=== PATIENT | female | born 1960 | race Caucasian/White ===

== ENCOUNTER → 2017-02-15 | Outpatient (CLI) | payer OTHER ==
[~2017-02-15] MED LIST: AMR2 PO; B-CO-25 PO; CLX20 PO; CLZ100 PO; DLN100 PO; DTRSR10 PO; LEVE250T PO; LSN25 PO; MULT-506 PO; POLY335025 PO
== END | disposition home or self-care (01) ==
LOC: C.LAB1850 16:00
PROVIDERS: ATTEND Physician Assistant
DX: G40.209 Localization-related (focal) (partial) symptomatic epilepsy and epileptic syndromes with complex partial seizures, not intractable, without status epilepticus (principal)

== ENCOUNTER → 2017-04-12 | Outpatient (CLI) | payer OTHER ==
[2017-04-12 17:26] LABS: BASO % 0.1 %; BASO ABS # 0.01 K/uL (0-0.2); COMPLETE YES; HEMATOCRIT 39.4 % (37-47); IG% 0.4 %; LYMPH % 31.2 %; LYMPH ABS # 2.44 K/uL (1.2-3.4); MEAN CELL VOLUME 88.1 fL (80-100); MEAN CORPUSCULAR HEMOGLOBIN 30.6 pg (25-34); MEAN CORPUSCULAR HGB CONC 34.8 g/dl (32-36); MEAN PLATELET VOLUME 11.8 fL (7.4-10.4); MONO % 9.7 %; NEUT % 58.6 %; PLATELET COUNT 159 K/uL (130-400); RED BLOOD COUNT 4.47 M/uL (4.2-5.4); WHITE BLOOD COUNT 7.81 K/uL (4.8-10.8)
== END | disposition home or self-care (01) ==
LOC: C.LAB 16:24
PROVIDERS: ATTEND Psychiatry & Neurology Psychiatry
DX: Z79.899 Other long term (current) drug therapy (principal)

== ENCOUNTER → 2017-07-05 | Outpatient (CLI) | payer OTHER | END | disposition home or self-care (01) | LOC: C.LAB 15:26 | PROVIDERS: ATTEND Family Medicine | DX: E11.9 Type 2 diabetes mellitus without complications (principal); Z79.899 Other long term (current) drug therapy ==

== ENCOUNTER → 2017-07-14 | Outpatient (CLI) | payer OTHER | END | disposition home or self-care (01) | LOC: C.LAB 07:28 | PROVIDERS: ATTEND Psychiatry & Neurology Psychiatry | DX: Z79.899 Other long term (current) drug therapy (principal) ==

== ENCOUNTER 2021-07-05 14:02 | Inpatient (IN) ==
[2021-07-05] MEDS ORDERED: ACETAMINOPHEN 500 MG TAB PO STA (14:34)
[2021-07-05] MEDS ORDERED: SODIUM CHLORIDE 0.9% 1000ML 1,000 ML IV ONE (14:34)
--- NOTE | 2021-07-05 14:42 | Emergency Department Note ---
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 She started having chills yesterday and this morning she was noted to have very decreased activity. She was not eating as much as normal. She did have a temperature of 101 initially. She was given Tylenol at 10 AM but then her fever bumped up to 102.5. She has had a nonproductive cough. She has had no difficulty breathing. She denies any headache, chest pain or abdominal pain. She has had no vomiting or diarrhea. She has been less active throughout the day and somewhat unbalanced when she walks. She has not fallen. She had a rapid Covid test at [facility] which was negative. She has been vaccinated and received a booster as well. She is also vaccinated for influenza. Home Medications Medication Instructions Recorded Confirmed Type atorvastatin 40 mg tablet 40 mg PO HS 07/17/18 07/05/21 History glimepiride 2 mg tablet 2 mg PO [facility] 07/17/18 07/05/21 History lisinopril 2.5 mg tablet 2.5 mg PO HS 07/17/18 07/05/21 History metformin 500 mg tablet,extended 500 mg PO BID 07/17/18 07/05/21 History release 24 hr multivit-iron 18 mg-folic acid 400 1 tab PO QAM 07/17/18 07/05/21 History mcg-calcium 500 mg-minerals tablet (Women's One Daily) oxybutynin chloride 10 mg 10 mg PO QAM 07/17/18 07/05/21 History tablet,extended release 24 hr polyethylene glycol 3350 17 gram 17 gm PO HS 08/25/18 07/05/21 History oral powder packet (Miralax) vitamin B complex 1 tab PO QAM 08/25/18 07/05/21 History levetiracetam 250 mg tablet 250 mg PO BID #62 tab 01/26/19 07/05/21 Rx clozapine 100 mg tablet 100 mg PO .COMPLEX tab 02/15/19 07/05/21 History fluticasone propionate 50 2 sprays INTNAS QAM 02/15/19 07/05/21 History mcg/actuation nasal spray,suspension loratadine 10 mg tablet (Allergy 10 mg PO QAM 02/15/19 07/05/21 History Relief (loratadine)) ammonium lactate 12 % topical cream 1 applic TOPICAL QAM 05/21/19 07/05/21 History docusate sodium 100 mg capsule 100 mg PO BID 05/21/19 07/05/21 History (Colace) phenytoin sodium extended 100 mg 200 mg PO BID #120 cap 04/14/21 07/05/21 Rx capsule Allergies Allergy/AdvReac Type Severity Reaction Status Date / Time aspirin Allergy Mild STOMACH Verified 07/05/21 14:54 ULCER BLEEDING salicylates Allergy Unknown Verified 07/05/21 14:54 valproic acid Allergy Unknown Verified 07/05/21 14:54 Past Med/Surg History Medical History (Updated 07/05/21 @ 19:17 by Georgi Barkley MD) Complex partial seizure Depression Depression with anxiety Diabetes Heart murmur Hypertension Onychomycosis Schizophrenia Family History Mother Diabetes Other Seizures Social History Smoking Status: Never smoker Preferred Language: Wolof Visual Impairment: No Limitations Hearing Ability: Normal marital status: Single Current Living Situation: Personal Care Facility current occupational status: disabled Feels Safe at Home: Yes Review of Systems See HPI for pertinent positives & negatives. and A total of 10 systems reviewed and were otherwise negative Physical Exam Vital Signs Vital Signs - 24 hr 07/05/21 14:04 07/05/21 15:24 07/05/21 15:45 Temperature 38.0 C H Temperature Source Oral Pulse Rate 121 H Pulse Rate [Apical] 109 H 110 H Pulse Rhythm Regular Pulse Rhythm [Apical] Regular Pulse Strength Normal Respiratory Rate 18 19 16 Respiratory Effort / Characteristics Non-Labored Spontaneous Respiratory Depth Normal Blood Pressure 119/60 Blood Pressure [Left Arm] 139/78 139/78 Blood Pressure Mean 79 Blood Pressure Mean [Left Arm] 98 98 Pulse Oximetry 98 100 100 Oxygen Delivery Method Room Air Room Air Sepsis Recent Fever Within 48 Hours Yes Sepsis New/Unexplained Change in Mental Status Yes Sepsis Action Taken by Nursing No Action Required 07/05/21 17:00 Temperature Temperature Source Pulse Rate Pulse Rate [Apical] 105 H Pulse Rhythm Pulse Rhythm [Apical] Pulse Strength Respiratory Rate 23 Respiratory Effort / Characteristics Respiratory Depth Blood Pressure Blood Pressure [Left Arm] 113/70 Blood Pressure Mean Blood Pressure Mean [Left Arm] 84 Pulse Oximetry 98 Oxygen Delivery Method Room Air Sepsis Recent Fever Within 48 Hours Sepsis New/Unexplained Change in Mental Status Sepsis Action Taken by Nursing Constitutional: Vital signs reviewed. Febrile. Eyes: Pupils are equal round reactive to light. Conjunctiva are noninjected. ENT: Pharynx is clear without erythema or exudate. Mucous membranes are dry. Neck supple without meningeal signs. Respiratory: Clear to auscultation bilaterally. Breath sounds are equal bilaterally. Cardiovascular: Tachycardic. Heart rate 107. GI: Soft, nondistended and nontender. Bowel sounds are present. Musculoskeletal: No peripheral edema. No lower extremity tenderness. Integumentary: No cyanosis. or jaundice. Neurological: The patient is awake and alert. No focal deficits. Motor is intact in all extremities. Cranial nerves are grossly intact. Psychiatric: Normal affect. Not anxious appearing. Course Administered Medications Discontinued Medications Acetaminophen (Acetaminophen 500 Mg Tab) 1,000 mg PO NOW STA Stop: 07/05/21 14:35 Last Admin: 07/05/21 15:07 Dose: 1,000 mg Documented by: [id number] Sodium Chloride (Nss 1000ml) 1,000 mls @ 999 mls/hr IV .Q1H1M ONE Stop: 07/05/21 15:34 Last Infusion: 07/05/21 16:38 Dose: 0 mls/hr Documented by: [id number] Admin: 07/05/21 15:08 Dose: 999 mls/hr Documented by: [id number] Piperacillin Sod/Tazobactam Sod (Zosyn) 4.5 gm in 120 mls @ 240 mls/hr IV NOW ONE Stop: 07/05/21 17:51 Last Infusion: 07/05/21 18:18 Dose: 0 mls/hr Documented by: [id number] Admin: 07/05/21 17:40 Dose: 240 mls/hr Documented by: [id number] Critical Care Time Critical Care Time: Yes Total Critical Care Time: 35 I have personally spent approximately 35 minutes of critical care time in the direct management of this patient. This includes bedside care, interpretation of diagnostic studies, and testing, discussion with consultants, patient, and family members, and other required patient management activities. These minutes are in excess of all separately billable procedures. Medical Decision Making Differential Diagnosis Pneumonia, bronchitis, influenza, COVID-19, sepsis Medical Records Attestation: I reviewed the patient's medical records. I did perform a limited focused review of portions of the patient's old chart on the electronic medical record. The patient has had no recent pertinent visits to this hospital. Home Medications Current Medication List: was personally reviewed by me Laboratory Data Attestation: I reviewed the patient's lab results. Result diagrams: 07/05/21 15:15 07/05/21 15:15 Lab Results 07/05/21 07/05/21 07/05/21 Range/Units 15:10 15:15 15:15 WBC 25.31 H (4.8-10.8) K/uL RBC 4.41 (4.2-5.4) M/uL Hgb 13.5 (12.0-16.0) g/dL Hct 39.7 (37-47) % MCV 90.0 (80-100) fL MCH 30.6 (25-34) pg MCHC 34.0 (32-36) g/dL RDW Std Deviation 50.1 H (36.4-46.3) fL RDW Coeff of Liliana 15.0 H (11.5-14.5) % Plt Count 190 (130-400) K/uL MPV 11.0 H (7.4-10.4) fL Immature Gran % (Auto) 0.6 % Neut % (Auto) 92.3 % Lymph % (Auto) 3.4 % [place] % (Auto) 3.6 % Eos % (Auto) 0.0 % Baso % (Auto) 0.1 % Neut # (Auto) 23.37 H (1.4-6.5) K/uL Lymph # (Auto) 0.87 L (1.2-3.4) K/uL [place] # (Auto) 0.91 H (0.11-0.59) K/uL Eos # (Auto) 0.00 (0-0.5) K/uL Baso # (Auto) 0.02 (0-0.2) K/uL Immature Gran # (Auto) 0.14 H (0.00-0.02) K/uL PT 9.8 (9.0-12.0) Seconds INR 1.0 (0.9-1.1) APTT 23.4 (21.0-31.0) Seconds PTT Ratio 0.9 Sodium (136-145) mmol/L Potassium (3.5-5.1) mmol/L Chloride (98-107) mmol/L Carbon Dioxide (21-32) mmol/L Anion Gap (3-11) BUN (6-23) mg/dl Creatinine (0.6-1.2) mg/dl Est Cr Clr Drug Dosing ml/min Est GFR ( Amer) ml/min Est GFR (Non-Af Amer) ml/min BUN/Creatinine Ratio (10-20) Glucose (70-99(Fasting)) mg/dl Lactate (0.4-2.0) mmol/L Calcium (8.5-10.1) mg/dl Magnesium (1.7-2.4) mg/dl Total Bilirubin (0.2-1.0) mg/dl AST (13-39) U/L ALT (7-52) U/L Alkaline Phosphatase (34-104) U/L Total Protein (6.0-8.3) gm/dl Albumin (3.4-5.0) gm/dl Globulin (2.5-4.0) gm/dl Albumin/Globulin Ratio (0.9-2) Urine Color Urine Appearance (Clear) Urine pH (4.5-7.5) Ur Specific [place] (1.000-1.030) Urine Protein (Negative) Urine Glucose (UA) (Negative) Urine Ketones (Negative) Urine Blood (Negative) Urine Nitrite (Negative) Urine Bilirubin (Negative) Urine Urobilinogen (Negative) Ur Leukocyte Esterase (Negative) Urine WBC (Auto) (0-5) /hpf Urine RBC (Auto) (0-4) /hpf U Hyaline Cast (Auto) (0-5) /lpf U Epithel Cells (Auto) (0-5) /lpf Urine Bacteria (Auto) (Negative) Influ A Molecular Assay (Negative) Influ B Molecular Assay (Negative) SARS-CoV-2, RNA, NAAT NEGATIVE (NEGATIVE) 07/05/21 07/05/21 07/05/21 Range/Units 15:15 15:15 15:30 WBC (4.8-10.8) K/uL RBC (4.2-5.4) M/uL Hgb (12.0-16.0) g/dL Hct (37-47) % MCV (80-100) fL MCH (25-34) pg MCHC (32-36) g/dL RDW Std Deviation (36.4-46.3) fL RDW Coeff of Liliana (11.5-14.5) % Plt Count (130-400) K/uL MPV (7.4-10.4) fL Immature Gran % (Auto) % Neut % (Auto) % Lymph % (Auto) % [place] % (Auto) % Eos % (Auto) % Baso % (Auto) % Neut # (Auto) (1.4-6.5) K/uL Lymph # (Auto) (1.2-3.4) K/uL [place] # (Auto) (0.11-0.59) K/uL Eos # (Auto) (0-0.5) K/uL Baso # (Auto) (0-0.2) K/uL Immature Gran # (Auto) (0.00-0.02) K/uL PT (9.0-12.0) Seconds INR (0.9-1.1) APTT (21.0-31.0) Seconds PTT Ratio Sodium 133 L (136-145) mmol/L Potassium 4.2 (3.5-5.1) mmol/L Chloride 97 L (98-107) mmol/L Carbon Dioxide 26 (21-32) mmol/L Anion Gap 10 (3-11) BUN 17 (6-23) mg/dl Creatinine 0.74 (0.6-1.2) mg/dl Est Cr Clr Drug Dosing 79.6 ml/min Est GFR ( Amer) 102.8 ml/min Est GFR (Non-Af Amer) 88.7 ml/min BUN/Creatinine Ratio 23.0 H (10-20) Glucose 321 H* (70-99(Fasting)) mg/dl Lactate 2.4 H* (0.4-2.0) mmol/L Calcium 9.3 (8.5-10.1) mg/dl Magnesium 1.8 (1.7-2.4) mg/dl Total Bilirubin 0.5 (0.2-1.0) mg/dl AST 37 (13-39) U/L ALT 40 (7-52) U/L Alkaline Phosphatase 100 (34-104) U/L Total Protein 6.5 (6.0-8.3) gm/dl Albumin 4.2 (3.4-5.0) gm/dl Globulin 2.3 L (2.5-4.0) gm/dl Albumin/Globulin Ratio 1.8 (0.9-2) Urine Color Urine Appearance (Clear) Urine pH (4.5-7.5) Ur Specific [place] (1.000-1.030) Urine Protein (Negative) Urine Glucose (UA) (Negative) Urine Ketones (Negative) Urine Blood (Negative) Urine Nitrite (Negative) Urine Bilirubin (Negative) Urine Urobilinogen (Negative) Ur Leukocyte Esterase (Negative) Urine WBC (Auto) (0-5) /hpf Urine RBC (Auto) (0-4) /hpf U Hyaline Cast (Auto) (0-5) /lpf U Epithel Cells (Auto) (0-5) /lpf Urine Bacteria (Auto) (Negative) Influ A Molecular Assay Negative (Negative) Influ B Molecular Assay Negative (Negative) SARS-CoV-2, RNA, NAAT (NEGATIVE) 07/05/21 07/05/21 Range/Units 17:30 17:39 WBC (4.8-10.8) K/uL RBC (4.2-5.4) M/uL Hgb (12.0-16.0) g/dL Hct (37-47) % MCV (80-100) fL MCH (25-34) pg MCHC (32-36) g/dL RDW Std Deviation (36.4-46.3) fL RDW Coeff of Liliana (11.5-14.5) % Plt Count (130-400) K/uL MPV (7.4-10.4) fL Immature Gran % (Auto) % Neut % (Auto) % Lymph % (Auto) % [place] % (Auto) % Eos % (Auto) % Baso % (Auto) % Neut # (Auto) (1.4-6.5) K/uL Lymph # (Auto) (1.2-3.4) K/uL [place] # (Auto) (0.11-0.59) K/uL Eos # (Auto) (0-0.5) K/uL Baso # (Auto) (0-0.2) K/uL Immature Gran # (Auto) (0.00-0.02) K/uL PT (9.0-12.0) Seconds INR (0.9-1.1) APTT (21.0-31.0) Seconds PTT Ratio Sodium (136-145) mmol/L Potassium (3.5-5.1) mmol/L Chloride (98-107) mmol/L Carbon Dioxide (21-32) mmol/L Anion Gap (3-11) BUN (6-23) mg/dl Creatinine (0.6-1.2) mg/dl Est Cr Clr Drug Dosing ml/min Est GFR ( Amer) ml/min Est GFR (Non-Af Amer) ml/min BUN/Creatinine Ratio (10-20) Glucose (70-99(Fasting)) mg/dl Lactate 1.9 (0.4-2.0) mmol/L Calcium (8.5-10.1) mg/dl Magnesium (1.7-2.4) mg/dl Total Bilirubin (0.2-1.0) mg/dl AST (13-39) U/L ALT (7-52) U/L Alkaline Phosphatase (34-104) U/L Total Protein (6.0-8.3) gm/dl Albumin (3.4-5.0) gm/dl Globulin (2.5-4.0) gm/dl Albumin/Globulin Ratio (0.9-2) Urine Color Yellow Urine Appearance Clear (Clear) Urine pH 5.5 (4.5-7.5) Ur Specific [place] 1.016 (1.000-1.030) Urine Protein Negative (Negative) Urine Glucose (UA) 3+ H (Negative) Urine Ketones Negative (Negative) Urine Blood Trace H (Negative) Urine Nitrite Positive A (Negative) Urine Bilirubin Negative (Negative) Urine Urobilinogen Negative (Negative) Ur Leukocyte Esterase Negative (Negative) Urine WBC (Auto) 1-5 (0-5) /hpf Urine RBC (Auto) 0-4 (0-4) /hpf U Hyaline Cast (Auto) 0 (0-5) /lpf U Epithel Cells (Auto) 10-20 H (0-5) /lpf Urine Bacteria (Auto) 4+ H (Negative) Influ A Molecular Assay (Negative) Influ B Molecular Assay (Negative) SARS-CoV-2, RNA, NAAT (NEGATIVE) Imaging Data Radiologist's Impression: Chest X-Ray 07/05/21 14:34 SINGLE VIEW CHEST CLINICAL HISTORY: Sepsis. FINDINGS: An AP, portable, upright chest radiograph is compared to study dated 07/17/2018. The cardiomediastinal silhouette is unremarkable. There is chronic elevation of the left hemidiaphragm. There are mild bibasilar airspace opacities. No large pleural effusion or pneumothorax is seen. The skeletal stru ctures appear osteopenic. The bony thorax is grossly intact. IMPRESSION: There are mild bibasilar airspace opacities, which could represent atelectasis versus an infectious/inflammatory pneumonitis. Clinical correlation will be required and radiographic follow-up to resolution is recommended. ACT 112: Negative or not required by law. Electronically signed by: Carlos Savage M.D. 07/05/2021 4:29 PM ECG Data Attestation: I personally reviewed and interpreted this ECG as follows: Indication: + tachycardia Rate (beats per minute): 113 Rhythm: + sinus tachycardia ECG Intervals/blocks: + Normal QRS ECG ST segments: no ST elevation ECG Findings: no PVCs MDM Narrative I did evaluate the patient as noted above. The patient is presenting with fever and cough since last night. I did obtain history from the patient as well as staff from [facility]. I did treat her with Tylenol. IV access was established. I did treat her with normal saline 1 L IV[address] I did place an order for continuous cardiac monitoring. The monitor showed sinus tachycardia at a rate of 107 bpm. I did order and personally review the patient's 12-lead EKG as described above. She has sinus tachycardia. I did order and personally reviewed the images of the patient's chest x-ray as described above. She appears to have a bilateral pneumonia. I did order a urine analysis. She is nitrite positive with 4+ bacteria. Blood cultures were ordered. I did treat her with Zosyn IV. I did order and review the patient's blood work as noted in the electronic medical record. Her white count is significantly elevated at 25,000. She is not anemic. Chemistries show a sodium 133 and a chloride of 97. Her glucose is elevated at 321. The hyponatremia is likely a pseudohyponatremia. Lactate is elevated at 2.4. Repeat lactate after fluids is 1.9. I did discuss the test results with the patient and her interior plant caretaker. I did discuss the case with the hospitalist and immigration case manager. Covid and influenza testing is negative. She did throw up in the emergency department and was given Zofran IV. Impression & Plan Sepsis, Bilateral pneumonia, Acute UTI, Acute hyperglycemia Discharge Plan Visit Data Chief Complaint: Fever Stated Complaint: FEVER,TRIED,PALE,COUGHING,OFF BALANCE ED Provider: Georgi Barkley Discharge Problem: Sepsis, Bilateral pneumonia, Acute UTI, Acute hyperglycemia Patient Disposition: Being Evaluated by Hospitalist Forms Stand Alone Forms: My [facility] Prescriptions Prescriptions: No Action levetiracetam 250 mg tablet 250 mg PO BID Qty: 62 RF: 5 phenytoin sodium extended 100 mg capsule 200 mg PO BID Qty: 120 RF: 5 fluticasone propionate 50 mcg/actuation spray,suspension 2 sprays INTNAS QAM RF: 0 loratadine [Allergy Relief (loratadine)] 10 mg tablet 10 mg PO QAM RF: 0 atorvastatin 40 mg tablet 40 mg PO HS RF: 0 oxybutynin chloride 10 mg tablet extended release 24hr 10 mg PO QAM RF: 0 glimepiride 2 mg tablet 2 mg PO QAM RF: 0 metformin 500 mg tablet extended release 24 hr 500 mg PO BID RF: 0 lisinopril 2.5 mg tablet 2.5 mg PO HS RF: 0 Women's One Daily 18 mg iron-400 mcg-500 mg Ca Tablet 1 tab PO QAM RF: 0 clozapine 100 mg tablet 100 mg PO .COMPLEX RF: 0 vitamin B complex Tablet 1 tab PO QAM RF: 0 polyethylene glycol 3350 [Miralax] 17 gram powder in packet 17 gm PO HS RF: 0 ammonium lactate 12 % cream 1 applic TOPICAL QAM RF: 0 docusate sodium [Colace] 100 mg Capsule 100 mg PO BID RF: 0 Referrals Referrals: Delmy Jacobsen PA-C [Primary Care Provider] -
[2021-07-05 15:34] LABS: Hematocrit (blood only) 39.7 % (37-47); Hemoglobin 13.5 g/dL (12.0-16.0); Mean Corpuscular Hemoglobin 30.6 pg (25-34); Platelet Count 190 K/uL (130-400); RDW Standard Deviation 50.1 fL (36.4-46.3); Red Blood Count 4.41 M/uL (4.2-5.4); White Blood Count 25.31 K/uL (4.8-10.8)
[2021-07-05 15:43] LABS: Partial Thromboplastin Ratio 0.9; Partial Thromboplastin Time 23.4 Seconds (21.0-31.0); Prothrombin Time 9.8 Seconds (9.0-12.0)
[2021-07-05 16:00] LABS: Albumin Globulin Ratio 1.8 (0.9-2); Albumin Level 4.2 gm/dl (3.4-5.0); Basophils # (auto) 0.02 K/uL (0-0.2); Basophils % (auto) 0.1 %; Bilirubin,Total 0.5 mg/dl (0.2-1.0); Calcium 9.3 mg/dl (8.5-10.1); Creatinine Clr Calc Pharmacy 79.6 ml/min; Est GFR (African American) 102.8 ml/min; Est GFR (Non-African American) 88.7 ml/min; Globulin 2.3 gm/dl (2.5-4.0); Immature Granulocytes # (auto) 0.14 K/uL (0.00-0.02); Immature Granulocytes % (auto) 0.6 %; Lymphocytes # (auto) 0.87 K/uL (1.2-3.4); Lymphocytes % (auto) 3.4 %; Magnesium 1.8 mg/dl (1.7-2.4); Monocytes # (auto) 0.91 K/uL (0.11-0.59); Monocytes % (auto) 3.6 %; Neutrophils # (auto) 23.37 K/uL (1.4-6.5); Neutrophils % (auto) 92.3 %; Potassium 4.2 mmol/L (3.5-5.1); Total Protein 6.5 gm/dl (6.0-8.3)
[2021-07-05 16:18] LABS: Influenza A virus by PCR Negative (Negative); Influenza B virus by PCR Negative (Negative)
--- NOTE | 2021-07-05 16:30 | XRay Report ---
SINGLE VIEW CHEST CLINICAL HISTORY: Sepsis. FINDINGS: An AP, portable, upright chest radiograph is compared to study dated 07/17/2018. The cardiome diastinal silhouette is unremarkable. There is chronic elevation of the left hemidiaphragm. There are mild bibasilar airspace opacities. No large pleural effusion or pneumothorax is seen. The skeletal s tructures appear osteopenic. The bony thorax is grossly intact. IMPRESSION: There are mild bibasilar airspace opacities, which could represent atelectasis versus an infectious/inflammatory pneumonitis. Clinical correlation will be required and radiographic follow-up to resolution is recommended. ACT 112: Negative or not required by law. Electronically signed by: Carlos Savage M.D. 07/05/2021 4:29 PM
[2021-07-05] MEDS ORDERED: PIPERACILL/TAZOBAC CONSULT ACTIVE PRN ×2 (17:22→18:29)
[2021-07-05] MEDS ORDERED: PIPERACILLIN/TAZOBACTAM 4.5 GM/120 ML BAG IV ONE (17:22)
[2021-07-05 17:40] LABS: Appearance Urine Clear (Clear); Bacteria Urine Automated 4+ (Negative); Bilirubin Urine Negative (Negative); Blood Urine Trace (Negative); Cast Urine Automated 0 /lpf (0-5); Color Urine Yellow; Glucose Urine UA 3+ (Negative); Ketones Urine Negative (Negative); Leukocyte Esterase Urine Negative (Negative); Nitrite Urine Positive (Negative); Protein Urine Negative (Negative); RBC Urine Automated 0-4 /hpf (0-4); Specific Gravity Urine 1.016 (1.000-1.030); Urobilinogen Urine Negative (Negative); pH Urine 5.5 (4.5-7.5)
--- NOTE | 2021-07-05 18:17 | History & Physical Report ---
Date of Service July 05, 2021 Assessment & Plan (1) Sepsis: (2) Diabetes mellitus type 2 in nonobese: (3) Seizure disorder: (4) Paranoid schizophrenia: Plan: 1. Sepsis- Meets sepsis criteria with fever 38 C, leukocytosis 25, tachycardia 105, elevated lactate. Source PNA vs UTI. CXR and UA reviewed.. Saturating well in room air. Given fluids and antibiotics in ED. Continue ivf, empiric antibiotics pending blood culture and urine culture. Prior urine clx 2018 with pansensitive Ecoli. Check procal, follow up on lactate. 2. Diabetes mellitus type 2 with hyperglycemia- Check A1c. Hold home Metformin and glimepiride. Continue Lantus with sliding scale insulin with meals. Adjust as indicated. Diabetic diet. 3. Seizure disorder- no recent seizure activity, continue Keppra and Dilantin. Follows with neurology. 4. Paranoid Schizophrenia with depression and anxiety-continue Clozaril DVT prophyalxis: sc lovenox Disposition: Medsurg Code status: Unreviewed. Staff from the facility will bring the document Contact: Caregiver updated at bedside History of Present Illness Chief Complaint: fever, lethargy Primary Care Provider: Delmy Jacobsen PA-C This is a 61-year-old female with history of seizure disorder, schizophrenia, diabetes type 2 who presented from [facility] with fever and lethargy for 1 day. Patient was in her usual state of health until yesterday. Patient unable to provide history because of her schizophrenia. History obtained from chart review and caregiver at bedside. Patient was observed to be shaky, pale, coughing, and zoned out overnight. Also had fever 101.5 this morning and given tylenol. COVID-19 was negative. Sent to the ED for evaluation. In ED, febrile, hemodynamically stable, saturating well in room air. Leukocytosis, lactic acidemia, UA abnormal, chest x-ray with pneumonia versus atelectasis. Given fluids and Zosyn in ED. Hospitalist service consulted for admission. Patient seen and examined at bedside. Comfortable, not in distress. Allergies Allergy/AdvReac Type Severity Reaction Status Date / Time aspirin Allergy Mild STOMACH Verified 07/05/21 14:54 ULCER BLEEDING salicylates Allergy Unknown Verified 07/05/21 14:54 valproic acid Allergy Unknown Verified 07/05/21 14:54 Home Medications Medication Instructions Recorded Confirmed Type atorvastatin 40 mg tablet 40 mg PO HS 07/17/18 07/05/21 History glimepiride 2 mg tablet 2 mg PO QAM 07/17/18 07/05/21 History lisinopril 2.5 mg tablet 2.5 mg PO HS 07/17/18 07/05/21 History metformin 500 mg tablet,extended 500 mg PO BID 07/17/18 07/05/21 History release 24 hr multivit-iron 18 mg-folic acid 400 1 tab PO QAM 07/17/18 07/05/21 History mcg-calcium 500 mg-minerals tablet (Women's One Daily) oxybutynin chloride 10 mg 10 mg PO QAM 07/17/18 07/05/21 History tablet,extended release 24 hr polyethylene glycol 3350 17 gram 17 gm PO HS 08/25/18 07/05/21 History oral powder packet (Miralax) vitamin B complex 1 tab PO QAM 08/25/18 07/05/21 History levetiracetam 250 mg tablet 250 mg PO BID #62 tab 01/26/19 07/05/21 Rx clozapine 100 mg tablet 100 mg PO .COMPLEX tab 02/15/19 07/05/21 History fluticasone propionate 50 2 sprays INTNAS QA 02/15/19 07/05/21 History mcg/actuation nasal spray,suspension loratadine 10 mg tablet (Allergy 10 mg PO QAM 02/15/19 07/05/21 History Relief (loratadine)) ammonium lactate 12 % topical cream 1 applic TOPICAL QA 05/21/19 07/05/21 History docusate sodium 100 mg capsule 100 mg PO BID 05/21/19 07/05/21 History (Colace) phenytoin sodium extended 100 mg 200 mg PO BID #120 cap 04/14/21 07/05/21 Rx capsule Past Med/Surg History Medical History (Updated 07/05/21 @ 18:47 by Terry Paniagua MD) Complex partial seizure Depression Depression with anxiety Diabetes Heart murmur Hypertension Onychomycosis Schizophrenia Family History Mother Diabetes Other Seizures Social History Smoking Status: Never smoker Preferred Language: Ch[place] Visual Impairment: No Limitations Hearing Ability: Normal marital status: Single Current Living Situation: Personal Care Facility current occupational status: disabled Feels Safe at Home: Yes Review of Systems Review of Systems: All systems reviewed & are unremarkable except as noted in HPI & below Physical Exam Physical Exam: General: Lying comfortably in bed, not in distress, on room air HEENT: EOMI, SHANKAR, MMM Chest: Clear breath sounds bilaterally, no wheezes or crackles CVS: Regular rate and rhythm, normal heart sounds, no murmur Abdomen: Soft, non tender, not distended, normal bowel sounds Neuro: Awake, alert, oriented x2, answering simple questions, non focal Extremities: No cyanosis, clubbing or edema Results & Data Results & Data ([facility]) Vital Signs (Past 12 Hours) Vital Signs Temp Pulse Pulse Resp BP BP Pulse Ox 07/05/21 17:00 105 H 23 113/70 98 07/05/21 15:45 110 H 16 139/78 100 07/05/21 15:24 109 H 19 139/78 100 07/05/21 14:04 38.0 C H 121 H 18 119/60 98 Laboratory Results Short CBC 07/05/21 Range/Units 15:15 WBC 25.31 H (4.8-10.8) K/uL Hgb 13.5 (12.0-16.0) g/dL Hct 39.7 (37-47) % Plt Count 190 (130-400) K/uL BMP 07/05/21 15:15 Sodium 133 L Potassium 4.2 Chloride 97 L Carbon Dioxide 26 BUN 17 Creatinine 0.74 Glucose 321 H* Calcium 9.3 Liver Function 07/05/21 Range/Units 15:15 Total Bilirubin 0.5 (0.2-1.0) mg/dl AST 37 (13-39) U/L ALT 40 (7-52) U/L Alkaline Phosphatase 100 (34-104) U/L Albumin 4.2 (3.4-5.0) gm/dl Urine 07/05/21 Range/Units 17:30 Urine Color Yellow Urine Appearance Clear (Clear) Urine pH 5.5 (4.5-7.5) Ur Specific [place] 1.016 (1.000-1.030) Urine Protein Negative (Negative) Urine Glucose (UA) 3+ H (Negative) Diagnostic Findings Chest X-Ray 07/05/21 14:34 SINGLE VIEW CHEST CLINICAL HISTORY: Sepsis. FINDINGS: An AP, portable, upright chest radiograph is compared to study dated 07/17/2018. The cardiomediastinal silhouette is unremarkable. There is chronic elevation of the left hemidiaphragm. There are mild bibasilar airspace opacities. No large pleural effusion or pneumothorax is seen. The skeletal structures appear osteopenic. The bony thorax is grossly intact. IMPRESSION: There are mild bibasilar airspace opacities, which could represent atelectasis versus an infectious/inflammatory pneumonitis. Clinical correlation will be required and radiographic follow-up to resolution is recommended. ACT 112: Negative or not required by law. Electronically signed by: Carlos Savage M.D. 07/05/2021 4:29 PM
[2021-07-05] MEDS ORDERED: PIPERACILLIN/TAZOBACTAM 4.5 GM in DEXTROSE 5% 100 ML IV STA (18:23)
[2021-07-05] MEDS ORDERED: SODIUM CHLORIDE 0.9% IV STA (18:23)
[2021-07-05] MEDS ORDERED: VANCOMYCIN HCL IV STA (18:23)
[2021-07-05] MEDS ORDERED: VANCOMYCIN CONSULT ACTIVE PRN (18:29)
[2021-07-05] MEDS ORDERED: DEXTROSE 50% 50 ML SYRINGE IV PRN (18:34)
[2021-07-05] MEDS ORDERED: GLUCOSE 10 TABS/TUBE PO PRN (18:34)
[2021-07-05] MEDS ORDERED: GLUCOSE 40% GEL 15 GM TUBE PO PRN (18:34)
[2021-07-05] MEDS ORDERED: CARBOHYDRATES FOR HYPOGLYCEMIA PO PRN (18:34)
[2021-07-05] MEDS ORDERED: GLUCAGON FOR INJ 1 MG VIAL SQ PRN (18:34)
[2021-07-05] MEDS ORDERED: VANCOMYCIN HCL 1,500 MG in SODIUM CHLORIDE 0.9% 500 ML IV ONE (19:00)
[2021-07-05 19:31] LABS: BUN Creatinine Ratio 21.9 (10-20); Calcium 8.2 mg/dl (8.5-10.1); Est GFR (African American) 113.2 ml/min; Est GFR (Non-African American) 97.7 ml/min; Potassium 3.9 mmol/L (3.5-5.1)
[2021-07-05] MEDS: SODIUM CHLORIDE 0.9% 1000ML 1,000 ML IV SCH (19:43)
--- NOTE | 2021-07-05 21:17 | Pharmacy Report ---
Pharmacy Vanc AUC Short Note - Date of Service July 05, 2021 - Assessment & Plan Assessment 61 year old F receiving vancomycin and zosyn for treatment of UTI vs PNA. Blood, urine cultures pending. MRSA nasal -pending. Renal function stable. Day # 1 of antimicrobial therapy. Plan Vancomycin * AUC/LU is the preferred PK/PD target for vancomycin * AUC guided dosing is effective and associated with decreased risk of nephrotoxicity compared to traditional trough targets * Trough level of 19.6 mcg/mL is predicted to achieve target AUC/LU of 400-600 mg/L.hr and may be associated with a 17 % risk of nephrotoxicity * S/p vanc 1500mg IV load. Begin vancomycin 750mg IV q8h. * Will obtain a trough around steady state if vancomycin continued. Pharmacy will continue to follow and will adjust dose/frequency as necessary. Thank you.
[2021-07-05] MEDS: ENOXAPARIN INJ 40 MG/0.4 ML SYR SQ SCH (22:28)
[2021-07-05] MEDS: ATORVASTATIN 40 MG TAB PO SCH (22:29)
[2021-07-05] MEDS: cloZAPine 100 MG TAB PO SCH (22:29)
[2021-07-05] MEDS: DOCUSATE SODIUM 100 MG CAP PO SCH (22:30)
[2021-07-05] MEDS: PHENYTOIN SODIUM ER 100 MG CAP PO SCH (22:30)
[2021-07-05] MEDS: levETIRAcetam 250 MG TAB PO SCH (22:30)
[2021-07-05] MEDS: POLYETHYLENE (MIRALAX) 17 GM PACK PO SCH (22:31)
[2021-07-05] MEDS: INSULIN GLARGINE SOLOSTAR 100 UNITS/ML 3 ML PEN SC SCH (22:34)
[2021-07-05] MEDS: INSULIN ASPART PER UNIT SC SCH (22:39)
[2021-07-05] MEDS: PIPERACILLIN/TAZOBACTAM 3.375 GM in DEXTROSE 5% 100 ML IV SCH (23:01)
[2021-07-05] MEDS: ACETAMINOPHEN 325 MG TAB PO PRN (23:47)
[2021-07-06] MEDS ORDERED: KETOROLAC 30 MG/ML VIAL IV ONE (00:34)
[2021-07-06] MEDS ORDERED: VANCOMYCIN HCL 750 MG in SODIUM CHLORIDE 0.9% 250 ML IV SCH (04:00)
[2021-07-06 06:06] LABS: BUN Creatinine Ratio 26.8 (10-20); Calcium 7.7 mg/dl (8.5-10.1); Creatinine Clr Calc Pharmacy 105.2 ml/min; Est GFR (African American) 118.3 ml/min; Est GFR (Non-African American) 102.1 ml/min; Potassium 3.7 mmol/L (3.5-5.1)
[2021-07-06 06:12] LABS: Basophils # (auto) 0.01 K/uL (0-0.2); Basophils % (auto) 0.1 %; Hematocrit (blood only) 32.4 % (37-47); Immature Granulocytes # (auto) 0.02 K/uL (0.00-0.02); Immature Granulocytes % (auto) 0.1 %; Lymphocytes % (auto) 5.9 %; Mean Corpuscular Hemoglobin 30.1 pg (25-34); Mean Corpuscular Volume 88.5 fL (80-100); Mean Platelet Volume 10.6 fL (7.4-10.4); Monocytes # (auto) 0.71 K/uL (0.11-0.59); Monocytes % (auto) 5.3 %; Neutrophils # (auto) 11.91 K/uL (1.4-6.5); Neutrophils % (auto) 88.6 %; Platelet Count 141 K/uL (130-400); RDW Coefficient of Variation 14.9 % (11.5-14.5); RDW Standard Deviation 48.6 fL (36.4-46.3); Red Blood Count 3.66 M/uL (4.2-5.4); White Blood Count 13.45 K/uL (4.8-10.8)
[2021-07-06] MEDS: SODIUM CHLORIDE 0.9% 1000ML 1,000 ML IV SCH ×2 (06:19→20:38)
[2021-07-06] MEDS: PIPERACILLIN/TAZOBACTAM 3.375 GM in DEXTROSE 5% 100 ML IV SCH (06:19)
[2021-07-06] MEDS: DOCUSATE SODIUM 100 MG CAP PO SCH ×2 (08:31→20:47)
[2021-07-06] MEDS: PHENYTOIN SODIUM ER 100 MG CAP PO SCH ×2 (08:31→20:41)
[2021-07-06] MEDS: LORATADINE 10 MG TAB PO SCH (08:31)
[2021-07-06] MEDS: levETIRAcetam 250 MG TAB PO SCH ×2 (08:32→20:42)
[2021-07-06] MEDS: INSULIN GLARGINE SOLOSTAR 100 UNITS/ML 3 ML PEN SC SCH ×2 (08:43→20:39)
[2021-07-06] MEDS: INSULIN ASPART PER UNIT SC SCH ×4 (08:44→20:47)
--- NOTE | 2021-07-06 09:59 | XRay Report ---
XR chest 2V PA/lateral HISTORY: 61 years-old Female pneumonia? sepsis acute shortness of breath COMPARISON: 07/05/2021 TECHNIQUE: PA and lateral views of the chest FINDINGS: Cardiac silhouette is enlarged. Pulmonary vascular congestion with bilateral reticular interstitial o pacities. Mild bibasilar and perihilar airspace opacities. No pneumothorax or large pleural effusion. Mild gaseous distention of the stomach. Degenerative changes of the shoulders and spine. IMPRESSION: e 1. Cardiomegaly with suggested pulmonary edema. 2. Progressively worsened right perihilar and right basilar airspace opacities suggestive of atelecta sis versus pneumonia. ACT 112: Negative or not required by law. The above report was generated using voice recognition software. It may contain grammatical, syntax o r spelling errors. Electronically signed by: Vince Brito M.D. 07/06/2021 9:57 AM
--- NOTE | 2021-07-06 11:08 | Electrocardiogram Report ---
Test Reason : Blood Pressure : / mmHG Vent. Rate : 113 BPM Atrial Rate : 113 BPM P-R Int : 126 ms QRS Dur : 086 ms QT Int : 322 ms P-R-T Axes : 061 -25 035 degrees QTc Int : 441 ms Poor data quality, interpretation may be adversely affected Sinus tachycardia Otherwise normal ECG When compared with ECG of 25-AUG-2018 11:28, No significant change was found Confirmed by Valente Terrell ([id number]) on 07/06/2021 11:07:43 AM Referred By: REFERRED SELF Confirmed By:Valente Terrell
--- NOTE | 2021-07-06 12:52 | Hospitalist Progress Note ---
Date of Service July 06, 2021 Assessment & Plan (1) Sepsis: (2) Diabetes mellitus type 2 in nonobese: (3) Seizure disorder: (4) Paranoid schizophrenia: Plan: Sepsis UTI -Both present on admission -d/c Vancomycin, zosyn. Start ceftriaxone. Monitor response -follow up urine cultures Diabetes mellitus type 2 with hyperglycemia - Check A1c. Hold home Metformin and glimepiride. Continue Lantus with correctional scale with meals. Adjust as indicated. Diabetic diet. Seizure disorder - no recent seizure activity, continue Keppra and Dilantin. Follows with neurology. Paranoid Schizophrenia depression and anxiety -continue Clozaril Leg swelling -will check LE u/s to evaluate for DVT DVT prophyalxis: sc lovenox Disposition: [facility] Admission and Anticipated Discharge Date Admission Date: July 05, 2021 Subjective Fever has defervesced Patient reports feeling better Physical Exam Physical Exam: Non toxic, pleasant and comfortable Respiratory: breathing comfortably on room air, no wheezing/rhonchi/rales Cardiovascular: regular rate and rhythm, no murmurs/rubs/gallops Gastrointestinal (Abdomen): soft, non tender Musculoskeletal: trace- 1+ edema bilateral legs Neurologic: appears to have cognitive impairment, awake, able to answer "yes/no" questions Psychiatric: calm Results & Data Results & Data ([facility]) Vital Signs (Past 12 Hours) Vital Signs Temp Pulse Resp BP Pulse Ox 07/06/21 12:09 36.8 C 85 18 90/58 L 99 07/06/21 07:54 37.0 C 89 18 95/59 L 97 07/06/21 02:48 37.0 C 95 H 18 97/57 L 96 07/06/21 01:44 37.2 C Laboratory Results Short CBC 07/05/21 07/06/21 Range/Units 15:15 05:28 WBC 25.31 H 13.45 H D (4.8-10.8) K/uL Hgb 13.5 11.0 L (12.0-16.0) g/dL Hct 39.7 32.4 L (37-47) % Plt Count 190 141 (130-400) K/uL BMP 07/05/21 07/05/21 07/06/21 15:15 19:03 05:28 Sodium 133 L 133 L 135 L Potassium 4.2 3.9 3.7 Chloride 97 L 103 106 Carbon Dioxide 26 23 23 BUN 17 14 15 Creatinine 0.74 0.64 0.56 L Glucose 321 H* 219 H 97 Calcium 9.3 8.2 L 7.7 L Liver Function 07/05/21 Range/Units 15:15 Total Bilirubin 0.5 (0.2-1.0) mg/dl AST 37 (13-39) U/L ALT 40 (7-52) U/L Alkaline Phosphatase 100 (34-104) U/L Albumin 4.2 (3.4-5.0) gm/dl Urine 07/05/21 Range/Units 17:30 Urine Color Yellow Urine Appearance Clear (Clear) Urine pH 5.5 (4.5-7.5) Ur Specific [place] 1.016 (1.000-1.030) Urine Protein Negative (Negative) Urine Glucose (UA) 3+ H (Negative) Medications Administered Current Inpatient Medications Acetaminophen (Acetaminophen 325 Mg Tab) 650 mg PO Q4H PRN PRN Reason: Pain or Fever Stop: 08/04/21 23:15 Last Admin: 07/05/21 23:47 Dose: 650 mg Documented by: Atorvastatin Calcium (Atorvastatin 40 Mg Tab) 40 mg PO HS DELMI Stop: 08/04/21 20:59 Last Admin: 07/05/21 22:29 Dose: 40 mg Documented by: Clozapine (Clozapine 100 Mg Tab) 600 mg PO HS DELMI Stop: 08/04/21 20:59 Last Admin: 07/05/21 22:29 Dose: 600 mg Documented by: Dextrose (Dextrose 50% 50 Ml Syringe) 25 - 50 ml IV UD PRN; Protocol PRN Reason: Hypoglycemia Protocol Stop: 08/04/21 18:33 Docusate Sodium (Docusate Sodium 100 Mg Cap) 100 mg PO BID DELMI Stop: 08/04/21 20:59 Last Admin: 07/06/21 08:31 Dose: 100 mg Documented by: Enoxaparin Sodium (Enoxaparin Inj 40 Mg/0.4 Ml Syr) 40 mg SQ Q24H DELMI Stop: 08/04/21 18:59 Last Admin: 07/05/21 22:28 Dose: 40 mg Documented by: Glucagon (Glucagon For Inj 1 Mg Vial) 1 mg SQ UD PRN; Protocol PRN Reason: Hypoglycemia Protocol Stop: 08/04/21 18:33 Glucose (Glucose 10 Tabs/Tube) 4 - 8 tabs PO UD PRN; Protocol PRN Reason: Hypoglycemia Protocol Stop: 08/04/21 18:33 Glucose (Glucose 40% Gel 15 Gm Tube) 15 - 30 gm PO UD PRN; Protocol PRN Reason: Hypoglycemia Protocol Stop: 08/04/21 18:33 Sodium Chloride (Nss 1000ml) 1,000 mls @ 80 mls/hr IV .[id number] [facility] Stop: 08/04/21 18:44 Last Admin: 07/06/21 06:19 Dose: 80 mls/hr Documented by: Ceftriaxone Sodium 1,000 mg/ (Dextrose) 50 mls @ 100 mls/hr IV Q24H [facility]; Protocol Stop: 07/16/21 13:59 Insulin Aspart (Insulin Aspart Per Unit) 0 units SC ACHS [facility] Stop: 08/04/21 20:59 Last Admin: 07/06/21 11:55 Dose: 4 units Documented by: Insulin Glargine (Insulin Glargine Solostar 100 Units/Ml 3 Ml Pen) 5 units SC BID DELMI Stop: 08/04/21 20:59 Last Admin: 07/06/21 08:43 Dose: 5 units Documented by: Levetiracetam (Levetiracetam 250 Mg Tab) 250 mg PO BID [facility] Stop: 08/04/21 20:59 Last Admin: 07/06/21 08:32 Dose: 250 mg Documented by: Loratadine (Loratadine 10 Mg Tab) 10 mg PO QAM DELMI Stop: 08/05/21 08:59 Last Admin: 07/06/21 08:31 Dose: 10 mg Documented by: Miscellaneous (Carbohydrates For Hypoglycemia ) 15 - 30 gm PO UD PRN PRN Reason: Hypoglycemia Protocol Stop: 08/04/21 18:33 Phenytoin Sodium (Phenytoin Sodium Er 100 Mg Cap) 200 mg PO BID [facility] Stop: 08/04/21 20:59 Last Admin: 07/06/21 08:31 Dose: 200 mg Documented by: Polyethylene Glycol (Polyethylene (Miralax) 17 Gm Pack) 17 gm PO HS [facility] Stop: 08/04/21 20:59 Last Admin: 07/05/21 22:31 Dose: 17 gm Documented by: (1) Sepsis Sepsis acute organ dysfunction status: without acute organ dysfunction Sepsis type: sepsis due to unspecified organism Qualified Code(s): A41.9 - Sepsis, unspecified organism
[2021-07-06] MEDS: cefTRIAXone SODIUM 1,000 MG in DEXTROSE 5% 50 ML IV SCH (13:58)
--- NOTE | 2021-07-06 15:47 | Ultrasound Report ---
BILATERAL LOWER EXTREMITY VENOUS DOPPLER HISTORY: Acute pain and swelling of the lower legs leg swelling, please eval for DVT COMPARISON STUDY: None. FINDINGS: There is normal compressibility, flow, and augmentation within the bilateral lower extremit y deep venous systems. IMPRESSION: No DVT within the right or left lower extremity. ACT 112: Negative or not required by law. Electronically signed by: Vince Brito M.D. 07/06/2021 3:45 PM
[2021-07-06] MEDS: ENOXAPARIN INJ 40 MG/0.4 ML SYR SQ SCH (20:38)
[2021-07-06] MEDS: ATORVASTATIN 40 MG TAB PO SCH (20:40)
[2021-07-06] MEDS: cloZAPine 100 MG TAB PO SCH (20:41)
[2021-07-06] MEDS: POLYETHYLENE (MIRALAX) 17 GM PACK PO SCH (20:47)
[2021-07-07] MEDS: ACETAMINOPHEN 325 MG TAB PO PRN (00:59)
[2021-07-07 07:19] LABS: Estimated Average Glucose 146 mg/dl; Hemoglobin A1C 6.7 % (4.5-5.6)
[2021-07-07 07:45] LABS: Hematocrit (blood only) 34.8 % (37-47); Hemoglobin 11.9 g/dL (12.0-16.0); Mean Corpuscular Hemoglobin 30.5 pg (25-34); Mean Corpuscular Hgb Conc 34.2 g/dL (32-36); Mean Corpuscular Volume 89.2 fL (80-100); Mean Platelet Volume 10.7 fL (7.4-10.4); Platelet Count 158 K/uL (130-400); RDW Coefficient of Variation 15.1 % (11.5-14.5); RDW Standard Deviation 49.1 fL (36.4-46.3); White Blood Count 9.99 K/uL (4.8-10.8)
[2021-07-07 08:06] LABS: BUN Creatinine Ratio 21.7 (10-20); Calcium 8.3 mg/dl (8.5-10.1); Creatinine Clr Calc Pharmacy 98.2 ml/min; Est GFR (African American) 115.6 ml/min; Est GFR (Non-African American) 99.8 ml/min; Magnesium 1.8 mg/dl (1.7-2.4); Potassium 3.7 mmol/L (3.5-5.1)
[2021-07-07] MEDS: PHENYTOIN SODIUM ER 100 MG CAP PO SCH ×2 (09:29→20:33)
[2021-07-07] MEDS: LORATADINE 10 MG TAB PO SCH (09:29)
[2021-07-07] MEDS: levETIRAcetam 250 MG TAB PO SCH ×2 (09:30→20:34)
[2021-07-07] MEDS: INSULIN GLARGINE SOLOSTAR 100 UNITS/ML 3 ML PEN SC SCH ×2 (09:30→20:35)
[2021-07-07] MEDS: DOCUSATE SODIUM 100 MG CAP PO SCH ×2 (09:41→20:44)
[2021-07-07] MEDS: SODIUM CHLORIDE 0.9% 1000ML 1,000 ML IV SCH ×2 (09:42→22:32)
[2021-07-07] MEDS: INSULIN ASPART PER UNIT SC SCH ×4 (09:42→20:43)
[2021-07-07] MEDS: cefTRIAXone SODIUM 1,000 MG in DEXTROSE 5% 50 ML IV SCH (13:07)
[2021-07-07] MEDS: ENOXAPARIN INJ 40 MG/0.4 ML SYR SQ SCH (17:41)
--- NOTE | 2021-07-07 20:21 | Hospitalist Progress Note ---
Date of Service July 07, 2021 Assessment & Plan (1) Sepsis: (2) Diabetes mellitus type 2 in nonobese: (3) Seizure disorder: (4) Paranoid schizophrenia: Plan: #. Sepsis #. UTI -Both present on admission -c/w ceftriaxone 07/06. -07/05 Urine Cx; pansensitive e coli Diabetes mellitus type 2 with hyperglycemia - 6.7 A1c. Hold home Metformin and glimepiride. Continue Lantus with correctional scale with meals. Adjust as indicated. Diabetic diet. Seizure disorder - no recent seizure activity, continue Keppra and Dilantin. Follows with neurology. Paranoid Schizophrenia depression and anxiety -continue Clozaril Leg swelling -LE u/s neg for DVT DVT prophyalxis: sc lovenox Disposition: Medsurg Speech eval for family's concern of aspiration, for video swallow tomorrow. Admission and Anticipated Discharge Date Admission Date: July 05, 2021 Subjective Patient seen and examined at bedside for sepsis secondary to UTI. Patient sitting up in chair, on room air, NAD, very slow at answering questions, no new acute events overnight per RN. Patient reports eating and moving bowels okay. Patient reports feeling better. Patient denies any fever/headache/chills/chest pain/palpitations/belly pain/other review of symptoms. Physical Exam Physical Exam: GENERAL: Alert and oriented x3. NAD, on RA. HEENT: No pallor, no icterus. Pupils equal, round and reactive to light. Oral mucosa moist. NECK: No JVD, no neck masses. HEART: S1 and S2 heard. Regular rate and rhythm. No murmur, no gallop. RESPIRATORY SYSTEM: Normal AP diameter. No accessory muscle use. No wheezing, no crackles. ABDOMEN: Soft, bowel sounds present, nontender, no distention. CENTRAL NERVOUS SYSTEM: No facial droop. Speech is clear. Obeys simple commands. Moves extremities. EXTREMITIES: 1+ BLE edema, no erythema seen. Results & Data Results & Data ([facility]) Vital Signs (Past 12 Hours) Vital Signs Temp Pulse Pulse Resp BP Pulse Ox 07/07/21 19:19 37.0 C 79 18 113/76 93 07/07/21 16:01 36.6 C 93 H 20 99/67 L 99 07/07/21 16:00 98 H 07/07/21 11:00 36.9 C 98 H 20 100/66 99 (1) Sepsis Sepsis acute organ dysfunction status: without acute organ dysfunction Sepsis type: sepsis due to unspecified organism Qualified Code(s): A41.9 - Sepsis, unspecified organism
[2021-07-07] MEDS: ATORVASTATIN 40 MG TAB PO SCH (20:32)
[2021-07-07] MEDS: cloZAPine 100 MG TAB PO SCH (20:33)
[2021-07-07] MEDS: POLYETHYLENE (MIRALAX) 17 GM PACK PO SCH (20:43)
[2021-07-08] MEDS: LORATADINE 10 MG TAB PO SCH (08:29)
[2021-07-08] MEDS: PHENYTOIN SODIUM ER 100 MG CAP PO SCH ×2 (08:29→20:11)
[2021-07-08] MEDS: levETIRAcetam 250 MG TAB PO SCH ×2 (08:30→20:08)
[2021-07-08] MEDS: INSULIN GLARGINE SOLOSTAR 100 UNITS/ML 3 ML PEN SC SCH ×2 (08:30→20:28)
[2021-07-08 08:32] LABS: Hemoglobin 11.4 g/dL (12.0-16.0); Mean Corpuscular Hemoglobin 30.7 pg (25-34); Mean Corpuscular Hgb Conc 34.5 g/dL (32-36); Mean Corpuscular Volume 88.9 fL (80-100); Mean Platelet Volume 10.2 fL (7.4-10.4); Platelet Count 180 K/uL (130-400); RDW Coefficient of Variation 14.9 % (11.5-14.5); Red Blood Count 3.71 M/uL (4.2-5.4); White Blood Count 7.57 K/uL (4.8-10.8)
[2021-07-08] MEDS: INSULIN ASPART PER UNIT SC SCH ×4 (08:32→20:25)
[2021-07-08] MEDS: DOCUSATE SODIUM 100 MG CAP PO SCH ×2 (08:41→20:24)
[2021-07-08 08:54] LABS: BUN Creatinine Ratio 21.7 (10-20); Creatinine Clr Calc Pharmacy 128.1 ml/min; Est GFR (African American) 126.2 ml/min; Est GFR (Non-African American) 108.9 ml/min; Magnesium 1.8 mg/dl (1.7-2.4); Potassium 3.7 mmol/L (3.5-5.1)
[2021-07-08] MEDS: ADVANCED PROBIOTIC 1250 MG CAPSULE PO SCH (11:24)
--- NOTE | 2021-07-08 12:16 | Fluoroscopy Report ---
FL video swallow HISTORY: Cough. Regurgitation. r/o aspiration TECHNIQUE: Video fluoroscopic evaluation of swallowing was performed in the AP and lateral projection s by the speech pathology staff. The patient is fed nectar-thick and thin liquid barium, a barium coa jenniffer wafer, and barium pudding. FLUOROSCOPY TIME: 2.5 minutes. A cine loop was submitted. COMPARISON STUDY: Video swallow 03/29/2018. FINDINGS: There is normal hyoid excursion and epiglottic deflection. There is trace silent aspiration demonstrated during the serial swallows of the thin liquid barium. No additional aspiration identifi ed with the remaining barium consistencies. IMPRESSION: 1. An episode of trace silent aspiration with the thin liquid barium. 2. Please see the speech pathologist report for detailed findings and recommendations. ACT 112: Negative or not required by law. Electronically signed by: Kendall Sanderson M.D. 07/08/2021 12:15 PM
[2021-07-08] MEDS ORDERED: FUROSEMIDE INJ 20 MG/2 ML VIAL IV ONE (12:30)
[2021-07-08] MEDS: SODIUM CHLORIDE 0.9% 1000ML 1,000 ML IV SCH (12:41)
[2021-07-08] MEDS: FAMOTIDINE 20 MG TAB PO SCH ×2 (16:39→20:08)
[2021-07-08] MEDS: AMOXICILLIN/CLAVULANATE 875 MG TAB PO SCH ×2 (16:39→22:44)
--- NOTE | 2021-07-08 17:57 | Hospitalist Progress Note ---
Date of Service July 08, 2021 Assessment & Plan (1) Sepsis: (2) Diabetes mellitus type 2 in nonobese: (3) Seizure disorder: (4) Paranoid schizophrenia: Plan: #. Sepsis #. UTI -Both present on admission -c/w ceftriaxone 07/06 --> 07/08 Augmentin -07/05 Urine Cx; pansensitive e coli Diabetes mellitus type 2 with hyperglycemia - 6.7 A1c. Hold home Metformin and glimepiride. Continue Lantus with correctional scale with meals. Adjust as indicated. Diabetic diet. Seizure disorder - no recent seizure activity, continue Keppra and Dilantin. Follows with neurology. Paranoid Schizophrenia depression and anxiety -continue Clozaril Leg swelling Likely RLE cellulitis -LE u/s neg for DVT -on Antibiotic Concerns of aspiration by family and care team assistant Likely Reflux symptoms Speech patient evaluated, 07/08 video Swallow study--> no aspiration but signs and symptoms of esophageal dysmotility. Start patient on famotidine initially twice daily then once daily. Continue to monitor. DVT prophyalxis: sc lovenox Disposition: Medsurg Likely DC back to tomorrow if no new issues arises. Admission and Anticipated Discharge Date Admission Date: July 05, 2021 Subjective Patient seen and examined at bedside for sepsis secondary to UTI. Patient sitting up in chair, on room air, NAD, very slow at answering questions, no new acute events overnight per RN. Patient reports eating okay. Patient reports feeling better. Patient denies any fever/headache/chills/chest pain/palpitations/belly pain/other review of symptoms. Per RN, she had some diarrhea in the morning but no further diarrhea in the day. 07/08 Patient's caregiver Fernanda was at bedside, reports her baseline is she is very slow at answering things, needs some assistance with activities of daily living, she is not alert and oriented often at baseline. Physical Exam Physical Exam: GENERAL: Alert and oriented x3. NAD, on RA. HEENT: No pallor, no icterus. Pupils equal, round and reactive to light. Oral mucosa moist. NECK: No JVD, no neck masses. HEART: S1 and S2 heard. Regular rate and rhythm. No murmur, no gallop. RESPIRATORY SYSTEM: Normal AP diameter. No accessory muscle use. No wheezing, no crackles. ABDOMEN: Soft, bowel sounds present, nontender, no distention. CENTRAL NERVOUS SYSTEM: No facial droop. Speech is clear. Obeys simple commands. Moves extremities. EXTREMITIES: 1+ BLE edema, + RLE erythema seen. Results & Data Results & Data ([facility]) Vital Signs (Past 12 Hours) Vital Signs Temp Pulse Pulse Resp BP BP Pulse Ox 07/08/21 15:49 36.5 C 90 18 109/73 100 07/08/21 11:24 37.5 C 92 H 18 94/59 L 98 07/08/21 08:06 36.8 C 88 18 123/74 96 07/08/21 07:31 93 H (1) Sepsis Sepsis acute organ dysfunction status: without acute organ dysfunction Sepsis type: sepsis due to unspecified organism Qualified Code(s): A41.9 - Sepsis, unspecified organism
[2021-07-08] MEDS: ATORVASTATIN 40 MG TAB PO SCH (20:07)
[2021-07-08] MEDS: ENOXAPARIN INJ 40 MG/0.4 ML SYR SQ SCH (20:10)
[2021-07-08] MEDS: cloZAPine 100 MG TAB PO SCH (20:12)
[2021-07-08] MEDS: POLYETHYLENE (MIRALAX) 17 GM PACK PO SCH (20:24)
[2021-07-09 07:00] LABS: Hematocrit (blood only) 31.5 % (37-47); Hemoglobin 10.9 g/dL (12.0-16.0); Mean Corpuscular Hemoglobin 30.4 pg (25-34); Mean Corpuscular Hgb Conc 34.6 g/dL (32-36); Platelet Count 198 K/uL (130-400); RDW Coefficient of Variation 14.7 % (11.5-14.5); Red Blood Count 3.58 M/uL (4.2-5.4); White Blood Count 6.96 K/uL (4.8-10.8)
[2021-07-09 07:31] LABS: Calcium 8.2 mg/dl (8.5-10.1); Creatinine Clr Calc Pharmacy 117.8 ml/min; Est GFR (African American) 122.8 ml/min; Est GFR (Non-African American) 105.9 ml/min; Magnesium 1.7 mg/dl (1.7-2.4); Phosphorus 3.7 mg/dl (2.5-4.9); Potassium 3.9 mmol/L (3.5-5.1)
[2021-07-09] MEDS: FAMOTIDINE 20 MG TAB PO SCH (09:45)
[2021-07-09] MEDS: AMOXICILLIN/CLAVULANATE 875 MG TAB PO SCH (09:45)
[2021-07-09] MEDS: PHENYTOIN SODIUM ER 100 MG CAP PO SCH (09:45)
[2021-07-09] MEDS: ADVANCED PROBIOTIC 1250 MG CAPSULE PO SCH (09:45)
[2021-07-09] MEDS: levETIRAcetam 250 MG TAB PO SCH (09:45)
[2021-07-09] MEDS: INSULIN ASPART PER UNIT SC SCH ×2 (09:46→13:07)
[2021-07-09] MEDS: LORATADINE 10 MG TAB PO SCH (09:46)
[2021-07-09] MEDS: INSULIN GLARGINE SOLOSTAR 100 UNITS/ML 3 ML PEN SC SCH (09:46)
[2021-07-09] MEDS: DOCUSATE SODIUM 100 MG CAP PO SCH (09:57)
[2021-07-09] MEDS ORDERED: FUROSEMIDE INJ 20 MG/2 ML VIAL IV ONE (13:26)
--- NOTE | 2021-07-09 13:50 | Discharge Summary ---
Date of Service July 09, 2021 Admission HPI Per Admitting Provider This is a 61-year-old female with history of seizure disorder, schizophrenia, diabetes type 2 who presented from [facility] with fever and lethargy for 1 day. Patient was in her usual state of health until yesterday. Patient unable to provide history because of her schizophrenia. History obtained from chart review and caregiver at bedside. Patient was observed to be shaky, pale, coughing, and zoned out overnight. Also had fever 101.5 this morning and given tylenol. COVID-19 was negative. Sent to the ED for evaluation. In ED, febrile, hemodynamically stable, saturating well in room air. Leukocytosis, lactic acidemia, UA abnormal, chest x-ray with pneumonia versus atelectasis. Given fluids and Zosyn in ED. Hospitalist service consulted for admission. Patient seen and examined at bedside. Comfortable, not in distress. Admission Exam Per Admitting Provider General: Lying comfortably in bed, not in distress, on room air HEENT: EOMI, SHANKAR, MMM Chest: Clear breath sounds bilaterally, no wheezes or crackles CVS: Regular rate and rhythm, normal heart sounds, no murmur Abdomen: Soft, non tender, not distended, normal bowel sounds Neuro: Awake, alert, oriented x2, answering simple questions, non focal Extremities: No cyanosis, clubbing or edema Principal Diagnosis Sepsis likely secondary to UTI Likely LLE cellulitis LLE greater than RLE swelling Discharge Exam GENERAL: Alert and oriented x3. NAD, on RA. HEENT: No pallor, no icterus. Pupils equal, round and reactive to light. Oral mucosa moist. NECK: No JVD, no neck masses. HEART: S1 and S2 heard. Regular rate and rhythm. No murmur, no gallop. RESPIRATORY SYSTEM: Normal AP diameter. No accessory muscle use. No wheezing, no crackles. ABDOMEN: Soft, bowel sounds present, nontender, no distention. CENTRAL NERVOUS SYSTEM: No facial droop. Speech is clear. Obeys simple commands. Moves extremities. EXTREMITIES: 1+ BLE edema, + LLE erythema seen (was documented wrong in previous day's exam). Discharge Data Allergies Allergy/AdvReac Type Severity Reaction Status Date / Time aspirin Allergy Mild STOMACH Verified 07/05/21 14:54 ULCER BLEEDING salicylates Allergy Unknown Verified 07/05/21 14:54 valproic acid Allergy Unknown Verified 07/05/21 14:54 Consultations 07/05/21 17:37 ED Decision to Admit Stat Ordered Studies 07/06/21 12:49 US venous doppler LE BI Routine 07/08/21 10:30 FL video swallow Routine Hospital Course (1) Sepsis: (2) Diabetes mellitus type 2 in nonobese: (3) Seizure disorder: (4) Paranoid schizophrenia: She was managed for the following while in hospital: #. Sepsis - resolved #. UTI -Both present on admission -c/w ceftriaxone 07/06 --> 07/08 Augmentin, continue upon discharge -07/05 Urine Cx; pansensitive e coli Diabetes mellitus type 2 with hyperglycemia - 6.7 A1c. Hold home Metformin and glimepiride. Continue Lantus with correctional scale with meals. Adjust as indicated. Diabetic diet. Seizure disorder - no recent seizure activity, continue Keppra and Dilantin. Follows with neurology. Paranoid Schizophrenia depression and anxiety -continue Clozaril Leg swelling Likely LLE cellulitis (wrongly documented likely RLE cellulitis in previous day's progress note) -LE u/s neg for DVT -on Antibiotic, for 7 more days upon discharge. Concerns of aspiration by family and companion caregiver Likely Reflux symptoms Speech patient evaluated, 07/08 video Swallow study--> no aspiration but signs and symptoms of esophageal dysmotility. Start patient on famotidine initially twice daily for 7 days upon DC and then once daily. Continue to monitor. Patient is being discharged back to assisted with following instruction at the point of discharge: Follow-up with your primary care physician within a week time. For your likely left lower leg cellulitis and UTI, you have been prescribed antibiotics, please complete the course. You will be on probiotic for the same duration of antibiotic. You will be given a few days worth of low-dose Lasix, take Lasix on the days when you have bilateral lower extremity swelling. Advise ECHO done as on outpatient, coordinate with your PCP. Get your blood work CBC and BMP done in a week time. You have been started on famotidine for your reflux symptoms at nighttime. Take medications as prescribed. Total Time Total Time Spent Total Time Spent (In Minutes): 35 Discharge Plan Discharge Items Patient Disposition: Personal Shelter Reason For Visit: FEVER, LETHARGY Discharge Diagnosis: Sepsis likely secondary to UTI Likely LLE cellulitis LLE greater than RLE swelling Activity: Resume your previous activity Non-emergency contact: Primary Care Provider Call non-emergency contact if: you have any medication questions, your symptoms worsen and your temperature is above 101 Follow-up/Referrals: Delmy Jacobsen PA-C [Primary Care Provider] - (Date & Time 07/15/2021 11:00 AM Provider Vitor Esqueda III, MD Department [facility] ) Diet: Carb Consistent or DM2 and Low Sodium (2gm) Fluids: 1800ml (7 cups) Addtl Attending Provider Instructions: Follow-up with your primary care physician within a week time. For your likely left lower leg cellulitis and UTI, you have been prescribed antibiotics, please complete the course. You will be on probiotic for the same duration of antibiotic. You will be given a few days worth of low-dose Lasix, take Lasix on the days when you have bilateral lower extremity swelling. Advise ECHO done as on o utpatient, coordinate with your PCP. Get your blood work CBC and BMP done in a week time. You have been started on famotidine for your reflux symptoms at nighttime. Take medications as prescribed. Pending Studies at Discharge: No Stand-Alone Forms: My [employer], Smoking Cessation Skilled Items Patient informed of condition?: Yes DNR: No Discharge Level of Care: Other Communicable Disease: No Discharge Prognosis: Stable Lines: None Urinary Catheter: No Medications and DC Order Prescriptions: New amoxicillin-pot clavulanate 875-125 mg tablet 1 tab PO Q12H 7 Days Qty: 14 RF: 0 famotidine 20 mg Tablet 20 mg PO .complex\ Qty: 37 RF: 0 Advanced Probiotic 625 mg (10 billion cell) Capsule 2 cap PO DAILY 7 Days Qty: 14 RF: 0 furosemide [Lasix] 20 mg tablet 20 mg PO Q OTHER DAY Qty: 30 RF: 0 Continued levetiracetam 250 mg tablet 250 mg PO BID Qty: 62 RF: 5 phenytoin sodium extended 100 mg capsule 200 mg PO BID Qty: 120 RF: 5 fluticasone propionate 50 mcg/actuation spray,suspension 2 sprays INTNAS QAM RF: 0 loratadine [Allergy Relief (loratadine)] 10 mg tablet 10 mg PO QAM RF: 0 atorvastatin 40 mg tablet 40 mg PO HS RF: 0 oxybutynin chloride 10 mg tablet extended release 24hr 10 mg PO QAM RF: 0 glimepiride 2 mg tablet 2 mg PO QAM RF: 0 metformin 500 mg tablet extended release 24 hr 500 mg PO BID RF: 0 lisinopril 2.5 mg tablet 2.5 mg PO HS RF: 0 Women's One Daily 18 mg iron-400 mcg-500 mg Ca Tablet 1 tab PO QAM RF: 0 clozapine 100 mg tablet 100 mg PO .COMPLEX RF: 0 vitamin B complex Tablet 1 tab PO QAM RF: 0 polyethylene glycol 3350 [Miralax] 17 gram powder in packet 17 gm PO HS RF: 0 ammonium lactate 12 % cream 1 applic TOPICAL QAM RF: 0 docusate sodium [Colace] 100 mg Capsule 100 mg PO BID RF: 0 Discharge Orders: Discharge Order (Routine); Ordered 07/09/21 Ordered By: Benjamin Rollins/Other Patient Handouts: Managing Type 2 Diabetes Admission Data Admit Date/Time: 07/05/21 18:37 Attending Provider: Benjamin Solis Admit Provider: Terry Paniagua Primary Care Provider: Delmy Jacobsen Other Providers: Terry Paniagua
== END 2021-07-09 15:42 | disposition home or self-care (01) | DRG 871 ==
LOC: ED 14:02 → 2N 18:37 → SUATTDRO 18:37 → 2N 20:31

== ENCOUNTER 2021-10-31 09:25 | Inpatient (IN) ==
[2021-10-31] MEDS ORDERED: CEFEPIME 2,000 MG/20 ML VIAL IV STA (09:43)
[2021-10-31] MEDS ORDERED: SODIUM CHLORIDE 0.9% 1000ML 1,000 ML IV SCH ×2 (09:45→18:20)
--- NOTE | 2021-10-31 09:50 | Emergency Department Note ---
Impression & Plan Altered mental status, Pneumonia, Fever ED Provider Note NAME: ORLANDO LESLIE AGE: 61 SEX: F : 1960 ARRIVES VIA: Ambulance INFORMANT: [staff workers] ED PROVIDER(S): [Carlos Oneill MD] CHIEF COMPLAINT: Confusion HISTORY OF PRESENT ILLNESS: The patient is a 61-year-old female who presents to the ER with staff workers from the [facility]. Yesterday, the patient was a bit off and not quite as reactive. She had a low-grade fever. The fever did respond to Tylenol. This morning, the patient is more somnolent and almost lethargic. She cannot stand or walk on her own. A cough has been noticed. She did receive some Tylenol before arrival. She has had 2 negative COVID tests in the last 24 hours. The patient has a history of sepsis as well as UTI. There are concerns for recurrent sepsis today. Given her mental state and intellectual disability, no further history obtainable. REVIEW OF SYSTEMS: Unobtainable given the mental state and intellectual disability. PMHx/PSHx: See Below SOCIAL HISTORY: See Below. PHYSICAL EXAM: GENERAL: Patient is in no acute distress. HEENT: No acute trauma, normocephalic atraumatic, mucous membranes dry, no nasal congestion, no scleral icterus. Pupils equal and reactive to light. NECK: No stridor, no adenopathy, no meningismus, trachea is midline. LUNGS: Diminished breath sounds, no respiratory distress or obvious wheeze. Dry cough noted. HEART: Over 6 systolic murmur, mildly tachycardic, regular rhythm ABDOMEN: Soft, nontender, bowel sounds positive, no peritonitis. EXTREMITIES: No cyanosis or edema, full range of motion of all the joints without pain or difficulty, no signs for acute trauma. NEUROLOGIC: Somnolent, sleeping, seen to move all extremities SKIN: No rash, no jaundice, no diaphoresis. DIFFERENTIAL DIAGNOSIS: Sepsis, UTI, pneumonia, COVID-19, influenza, RSV, metabolic abnormality, electrolyte abnormalities, cardiac sources, cellulitis, bacteremia, intracerebral event, toxicologic etiology, neurologic event, as well as other pathologies. EMERGENCY DEPARTMENT COURSE/PROCEDURES: ECG: Indication was potential sepsis, weakness. ECG shows a sinus tachycardia with a rate of 105. There is no ST elevation, there are no PVCs. A potential old inferior infarct was noted. The QTc was 452. Continuous Cardiac Monitoring: An order was placed for continuous cardiac monitoring. The monitor shows a rate of 102 with sinus tachycardia. Critical Care Note: I have personally spent 53 minutes of critical care time in the direct management of this patient. This includes bedside care, interpretation of diagnostic studies, and testing, discussion with consultants, patient, and family members, and other required patient management activities. This 53 minutes is in excess of all separately billable procedures. MEDICAL DECISION MAKING: There is no leukocytosis or concerning anemia. There is a normal platelet count. No coagulopathy. No significant electrolyte abnormality or renal failure. Lactic acid level is not elevated making severe sepsis less likely. No worrisome liver enzyme elevation. ECG showed a sinus tachycardia, no obvious ischemia. Cardiac enzyme testing x1 is not consistent with acute cardiac injury. Procalcitonin level was not elevated. Urinalysis showed some glucose, no obvious infection. Dilantin level was low at 4.8. COVID test returned negative. Influenza and RSV test returned negative. Brain CT showed no acute bleed or mass-effect. CT of the abdomen pelvis showed a possible ileus, no d iverticulitis or source for infection noted by CT imaging. Chest film shows a potential bilateral lower lobe pneumonia. The patient presents somnolent, she is quite sleepy. She has been febrile. W ork-up does suggest pneumonia as a potential source for her presentation. Of note, she has been coughing. The patient was given IV cefepime as antibiotic coverage. She received IV saline, 2 L. The patient is in need of a hospital stay for her presentation. I did speak with the patient and case management. I spoke with her family and the staff from [facility]. The on-call hospitalist was consulted. 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 Beliefs That Will Affect Care: None marital status: Single Current Living Situation: Personal Care Facility current occupational status: disabled Feels Safe at Home: Yes Assistive Devices: Walker Allergies Allergies Allergy/AdvReac Type Severity Reaction Status Date / Time aspirin Allergy Mild STOMACH Verified 08/25/21 13:20 ULCER BLEEDING salicylates Allergy Unknown Verified 08/25/21 13:20 valproic acid Allergy Unknown Verified 08/25/21 13:20 divalproex sodium Allergy Unknown Verified 08/25/21 13:20 [From [facility]] Home Meds Home Medications Medication Instructions Recorded Confirmed atorvastatin 40 mg tablet 40 mg PO HS 07/17/18 10/31/21 glimepiride 2 mg tablet 2 mg PO QAM 07/17/18 10/31/21 lisinopril 2.5 mg tablet 2.5 mg PO HS 07/17/18 10/31/21 metformin 500 mg tablet,extended 1,000 mg PO BID 07/17/18 10/31/21 release 24 hr multivit-iron 18 mg-folic acid 400 1 tab PO QAM 07/17/18 10/31/21 mcg-calcium 500 mg-minerals tablet (Women's One Daily) oxybutynin chloride 10 mg 10 mg PO QAM 07/17/18 10/31/21 tablet,extended release 24 hr polyethylene glycol 3350 17 gram 17 gm PO HS 08/25/18 10/31/21 oral powder packet (Miralax) vitamin B complex 1 tab PO QAM 08/25/18 10/31/21 fluticasone propionate 50 2 sprays INTNAS [facility] 02/15/19 10/31/21 mcg/actuation nasal spray,suspension loratadine 10 mg tablet (Allergy 10 mg PO QAM 02/15/19 10/31/21 Relief (loratadine)) ammonium lactate 12 % topical cream 1 applic TOPICAL QAM 05/21/19 10/31/21 docusate sodium 100 mg capsule 100 mg PO BID 05/21/19 10/31/21 (Colace) triamcinolone acetonide 0.1 % 1 applic TOPICAL BID PRN 07/10/21 10/31/21 topical cream empagliflozin 10 mg tablet 10 mg PO DAILY 08/25/21 10/31/21 (Jardiance) famotidine 20 mg tablet 20 mg PO DAILY tab 08/25/21 10/31/21 clozapine 200 mg tablet 600 mg PO HS 10/31/21 10/31/21 levetiracetam 250 mg tablet 250 mg PO BID 10/31/21 10/31/21 phenytoin sodium extended 100 mg 200 mg PO BID 10/31/21 10/31/21 capsule Results & Data (ED) Vital Signs Vital Signs - 24 hr 10/31/21 09:35 10/31/21 09:44 10/31/21 09:45 Temperature 36.4 C L 36.4 C L Temperature Source Oral Oral Pulse Rate 102 H 101 H Pulse Rate [Right Finger] 101 H Pulse Rhythm Regular Pulse Rhythm [Right Finger] Regular Pulse Strength Normal Pulse Strength [Right Finger] Normal Respiratory Rate 19 18 16 Respiratory Effort / Characteristics Non-Labored Spontaneous Non-Labored Spontaneous Non-Labored Spontaneous Respiratory Depth Normal Normal Respiratory Pattern Regular Regular Blood Pressure 101/59 L Blood Pressure [Right Arm] 101/59 L Blood Pressure Mean 73 Blood Pressure Mean [Right Arm] 73 Blood Pressure Position Lying Blood Pressure Position [Right Arm] Lying Pulse Oximetry 96 96 96 Oxygen Delivery Method Room Air Room Air Room Air Sepsis Recent Fever Within 48 Hours Yes Sepsis New/Unexplained Change in Mental Status No Sepsis Action Taken by Nursing No Action Required 10/31/21 10:14 10/31/21 10:30 10/31/21 11:00 Temperature Temperature Source Pulse Rate Pulse Rate [Right Finger] Pulse Rhythm Pulse Rhythm [Right Finger] Pulse Strength Pulse Strength [Right Finger] Respiratory Rate 18 17 19 Respiratory Effort / Characteristics Non-Labored Spontaneous Non-Labored Spontaneous Non-Labored Spontaneous Respiratory Depth Respiratory Pattern Blood Pressure Blood Pressure [Right Arm] Blood Pressure Mean Blood Pressure Mean [Right Arm] Blood Pressure Position Blood Pressure Position [Right Arm] Pulse Oximetry 96 97 97 Oxygen Delivery Method Room Air Room Air Room Air Sepsis Recent Fever Within 48 Hours Sepsis New/Unexplained Change in Mental Status Sepsis Action Taken by Nursing 10/31/21 12:00 10/31/21 12:30 10/31/21 13:00 Temperature Temperature Source Pulse Rate Pulse Rate [Right Finger] 108 H Pulse Rhythm Pulse Rhythm [Right Finger] Pulse Strength Pulse Strength [Right Finger] Normal Respiratory Rate 18 19 19 Respiratory Effort / Characteristics Non-Labored Spontaneous Non-Labored Spontaneous Non-Labored Spontaneous Respiratory Depth Normal Respiratory Pattern Regular Blood Pressure Blood Pressure [Right Arm] 155/74 H Blood Pressure Mean Blood Pressure Mean [Right Arm] 101 Blood Pressure Position Blood Pressure Position [Right Arm] Lying Pulse Oximetry 98 97 97 Oxygen Delivery Method Room Air Room Air Room Air Sepsis Recent Fever Within 48 Hours Sepsis New/Unexplained Change in Mental Status Sepsis Action Taken by Nursing 10/31/21 13:30 10/31/21 14:00 10/31/21 14:30 Temperature Temperature Source Pulse Rate Pulse Rate [Right Finger] Pulse Rhythm Pulse Rhythm [Right Finger] Pulse Strength Pulse Strength [Right Finger] Respiratory Rate 18 19 17 Respiratory Effort / Characteristics Non-Labored Spontaneous Non-Labored Spontaneous Non-Labored Spontaneous Respiratory Depth Respiratory Pattern Blood Pressure Blood Pressure [Right Arm] Blood Pressure Mean Blood Pressure Mean [Right Arm] Blood Pressure Position Blood Pressure Position [Right Arm] Pulse Oximetry 97 97 97 Oxygen Delivery Method Room Air Room Air Room Air Sepsis Recent Fever Within 48 Hours Sepsis New/Unexplained Change in Mental Status Sepsis Action Taken by Nursing 10/31/21 15:00 10/31/21 15:30 10/31/21 16:00 Temperature Temperature Source Pulse Rate Pulse Rate [Right Finger] 98 H Pulse Rhythm Pulse Rhythm [Right Finger] Pulse Strength Pulse Strength [Right Finger] Normal Respiratory Rate 19 18 17 Respiratory Effort / Characteristics Non-Labored Spontaneous Non-Labored Spontaneous Non-Labored Spontaneous Respiratory Depth Normal Respiratory Pattern Regular Blood Pressure Blood Pressure [Right Arm] 102/96 Blood Pressure Mean Blood Pressure Mean [Right Arm] 98 Blood Pressure Position Blood Pressure Position [Right Arm] Lying Pulse Oximetry 97 95 95 Oxygen Delivery Method Room Air Room Air Room Air Sepsis Recent Fever Within 48 Hours Sepsis New/Unexplained Change in Mental Status Sepsis Action Taken by Retirement Medications Current Medication List: was personally reviewed by me Laboratory Data Attestation: I reviewed the patient's lab results. Result diagrams: 10/31/21 09:35 10/31/21 09:35 Lab Results 10/31/21 10/31/21 10/31/21 Range/Units 09:35 09:35 09:35 WBC 10.42 (4.8-10.8) K/uL RBC 4.94 (4.2-5.4) M/uL Hgb 14.9 (12.0-16.0) g/dL Hct 42.4 (37-47) % MCV 85.8 (80-100) fL MCH 30.2 (25-34) pg MCHC 35.1 (32-36) g/dL RDW Std Deviation 48.5 H (36.4-46.3) fL RDW Coeff of Liliana 15.3 H (11.5-14.5) % Plt Count 133 (130-400) K/uL MPV 11.9 H (7.4-10.4) fL Immature Gran % (Auto) 0.2 % Neut % (Auto) 89.2 % Lymph % (Auto) 2.4 % [place] % (Auto) 8.1 % Eos % (Auto) 0.0 % Baso % (Auto) 0.1 % Neut # (Auto) 9.30 H (1.4-6.5) K/uL Lymph # (Auto) 0.25 L (1.2-3.4) K/uL [facility] # (Auto) 0.84 H (0.11-0.59) K/uL Eos # (Auto) 0.00 (0-0.5) K/uL Baso # (Auto) 0.01 (0-0.2) K/uL Immature Gran # (Auto) 0.02 (0.00-0.02) K/uL PT (9.0-12.0) Seconds INR (0.9-1.1) APTT (21.0-31.0) Seconds PTT Ratio Sodium (136-145) mmol/L Potassium (3.5-5.1) mmol/L Chloride (98-107) mmol/L Carbon Dioxide (21-32) mmol/L Anion Gap (3-11) BUN (6-23) mg/dl Creatinine (0.6-1.2) mg/dl Est Cr Clr Drug Dosing ml/min Est GFR ( Amer) ml/min Est GFR (Non-Af Amer) ml/min BUN/Creatinine Ratio (10-20) Glucose (70-99(Fasting)) mg/dl Lactate (0.4-2.0) mmol/L Calcium (8.5-10.1) mg/dl Magnesium (1.7-2.4) mg/dl Total Bilirubin (0.2-1.0) mg/dl AST (13-39) U/L ALT (7-52) U/L Alkaline Phosphatase (34-104) U/L Troponin I High Sens (0-14) pg/ml Total Protein (6.0-8.3) gm/dl Albumin (3.4-5.0) gm/dl Globulin (2.5-4.0) gm/dl Albumin/Globulin Ratio (0.9-2) Procalcitonin 0.36 (0-0.5) ng/ml Urine Color Urine Appearance (Clear) Urine pH (4.5-7.5) Ur Specific [place] (1.000-1.030) Urine Protein (Negative) Urine Glucose (UA) (Negative) Urine Ketones (Negative) Urine Blood (Negative) Urine Nitrite (Negative) Urine Bilirubin (Negative) Urine Urobilinogen (Negative) Ur Leukocyte Esterase (Negative) Phenytoin 4.8 L (10-20) mcg/ml SARS-CoV-2 (PCR) (Negative) Influenza Type A (PCR) (Neg) Influenza Type B (PCR) (Neg) RSV (RT-PCR) (Neg) 10/31/21 10/31/21 10/31/21 Range/Units 09:35 09:35 09:35 WBC (4.8-10.8) K/uL RBC (4.2-5.4) M/uL Hgb (12.0-16.0) g/dL Hct (37-47) % MCV (80-100) fL MCH (25-34) pg MCHC (32-36) g/dL RDW Std Deviation (36.4-46.3) fL RDW Coeff of Liliana (11.5-14.5) % Plt Count (130-400) K/uL MPV (7.4-10.4) fL Immature Gran % (Auto) % Neut % (Auto) % Lymph % (Auto) % [place] % (Auto) % Eos % (Auto) % Baso % (Auto) % Neut # (Auto) (1.4-6.5) K/uL Lymph # (Auto) (1.2-3.4) K/uL [facility] # (Auto) (0.11-0.59) K/uL Eos # (Auto) (0-0.5) K/uL Baso # (Auto) (0-0.2) K/uL Immature Gran # (Auto) (0.00-0.02) K/uL PT 10.4 (9.0-12.0) Seconds INR 1.0 (0.9-1.1) APTT 26.1 (21.0-31.0) Seconds PTT Ratio 0.9 Sodium 134 L (136-145) mmol/L Potassium 4.1 (3.5-5.1) mmol/L Chloride 104 (98-107) mmol/L Carbon Dioxide 22 (21-32) mmol/L Anion Gap 8 (3-11) BUN 26 H (6-23) mg/dl Creatinine 0.67 (0.6-1.2) mg/dl Est Cr Clr Drug Dosing 70.4 ml/min Est GFR ( Amer) 111.5 ml/min Est GFR (Non-Af Amer) 96.2 ml/min BUN/Creatinine Ratio 38.8 H (10-20) Glucose 178 H (70-99(Fasting)) mg/dl Lactate (0.4-2.0) mmol/L Calcium 8.1 L (8.5-10.1) mg/dl Magnesium 1.8 (1.7-2.4) mg/dl Total Bilirubin 0.4 (0.2-1.0) mg/dl AST 23 (13-39) U/L ALT 28 (7-52) U/L Alkaline Phosphatase 89 (34-104) U/L Troponin I High Sens 2.6 (0-14) pg/ml Total Protein 6.0 (6.0-8.3) gm/dl Albumin 3.9 (3.4-5.0) gm/dl Globulin 2.1 L (2.5-4.0) gm/dl Albumin/Globulin Ratio 1.9 (0.9-2) Procalcitonin (0-0.5) ng/ml Urine Color Urine Appearance (Clear) Urine pH (4.5-7.5) Ur Specific [place] (1.000-1.030) Urine Protein (Negative) Urine Glucose (UA) (Negative) Urine Ketones (Negative) Urine Blood (Negative) Urine Nitrite (Negative) Urine Bilirubin (Negative) Urine Urobilinogen (Negative) Ur Leukocyte Esterase (Negative) Phenytoin (10-20) mcg/ml SARS-CoV-2 (PCR) NEGATIVE (Negative) Influenza Type A (PCR) Negative (Neg) Influenza Type B (PCR) Negative (Neg) RSV (RT-PCR) Negative (Neg) 10/31/21 10/31/21 Range/Units 10:00 10:28 WBC (4.8-10.8) K/uL RBC (4.2-5.4) M/uL Hgb (12.0-16.0) g/dL Hct (37-47) % MCV (80-100) fL MCH (25-34) pg MCHC (32-36) g/dL RDW Std Deviation (36.4-46.3) fL RDW Coeff of Liliana (11.5-14.5) % Plt Count (130-400) K/uL MPV (7.4-10.4) fL Immature Gran % (Auto) % Neut % (Auto) % Lymph % (Auto) % [place] % (Auto) % Eos % (Auto) % Baso % (Auto) % Neut # (Auto) (1.4-6.5) K/uL Lymph # (Auto) (1.2-3.4) K/uL [facility] # (Auto) (0.11-0.59) K/uL Eos # (Auto) (0-0.5) K/uL Baso # (Auto) (0-0.2) K/uL Immature Gran # (Auto) (0.00-0.02) K/uL PT (9.0-12.0) Seconds INR (0.9-1.1) APTT (21.0-31.0) Seconds PTT Ratio Sodium (136-145) mmol/L Potassium (3.5-5.1) mmol/L Chloride (98-107) mmol/L Carbon Dioxide (21-32) mmol/L Anion Gap (3-11) BUN (6-23) mg/dl Creatinine (0.6-1.2) mg/dl Est Cr Clr Drug Dosing ml/min Est GFR ( Amer) ml/min Est GFR (Non-Af Amer) ml/min BUN/Creatinine Ratio (10-20) Glucose (70-99(Fasting)) mg/dl Lactate 1.2 (0.4-2.0) mmol/L Calcium (8.5-10.1) mg/dl Magnesium (1.7-2.4) mg/dl Total Bilirubin (0.2-1.0) mg/dl AST (13-39) U/L ALT (7-52) U/L Alkaline Phosphatase (34-104) U/L Troponin I High Sens (0-14) pg/ml Total Protein (6.0-8.3) gm/dl Albumin (3.4-5.0) gm/dl Globulin (2.5-4.0) gm/dl Albumin/Globulin Ratio (0.9-2) Procalcitonin (0-0.5) ng/ml Urine Color Yellow Urine Appearance Clear (Clear) Urine pH 5.0 (4.5-7.5) Ur Specific [place] 1.036 H (1.000-1.030) Urine Protein Negative (Negative) Urine Glucose (UA) 3+ H (Negative) Urine Ketones Negative (Negative) Urine Blood Negative (Negative) Urine Nitrite Negative (Negative) Urine Bilirubin Negative (Negative) Urine Urobilinogen Negative (Negative) Ur Leukocyte Esterase Negative (Negative) Phenytoin (10-20) mcg/ml SARS-CoV-2 (PCR) (Negative) Influenza Type A (PCR) (Neg) Influenza Type B (PCR) (Neg) RSV (RT-PCR) (Neg) Administered Medications Discontinued Medications Sodium Chloride (Nss 1000ml) 1,000 mls @ 999 mls/hr IV .Q1H1M DELMI Stop: 10/31/21 10:45 Last Infusion: 10/31/21 13:45 Dose: 0 mls/hr Documented by: [id number] Admin: 10/31/21 11:16 Dose: 999 mls/hr Documented by: [id number] Cefepime HCl (Maxipime) 2,000 mg in 20 mls @ 5 mls/min IV NOW STA; Protocol Stop: 10/31/21 09:46 Last Admin: 10/31/21 11:16 Dose: 5 mls/min Documented by: [id number] Sodium Chloride (Nss 1000ml) 1,000 mls @ 999 mls/hr IV .Q1H1M ONE Stop: 10/31/21 12:38 Last Admin: 10/31/21 14:02 Dose: 999 mls/hr Documented by: [id number] Imaging Data Radiologist's Impression: Chest X-Ray 10/31/21 09:44 SINGLE VIEW CHEST CLINICAL HISTORY: Sepsis. FINDINGS: An AP, portable, upright chest radiograph is compared to study dated 07/06/2021. Degraded The cardiomediastinal silhouette is top normal for projection. Question mild pulmonary vascular congestion. There is chronic elevation of the left hemidiaphragm. There are mild bibasilar airspace opacities. No large pleural effusion or pneumothorax is seen. The skeletal structures are osteopenic. The bony thorax is grossly intact. IMPRESSION: 1. Question mild pulmonary vascular congestion. 2. Mild bibasilar opacities could represent atelectasis versus a mild infectious/inflammatory pneumonitis. Clinical correlation will be required and radiographic follow-up to resolution is recommended. ACT 112: Negative or not required by law. Electronically signed by: Carlos Savage M.D. 10/31/2021 10:18 AM Abdomen/Pelvis CT 10/31/21 10:19 CT abd pelvis wo con CLINICAL HISTORY: confusion, fever, MR TECHNIQUE: Helical axial images of the abdomen and pelvis were obtained. Automated dose lowering techniques and/or adjustment according to patient size were utilized for this exam. This exam was performed without intravenous contrast. CT DOSE: 1960.50 mGy.cm COMPARISON: Comparison is made to CT abdomen pelvis 07/17/2018 FINDINGS: Lower chest: Patulous esophagus is noted. Liver: Unremarkable. No focal lesions are seen. Gallbladder and biliary tree: No calcified gallstones. Normal caliber wall. No intra- or extrahepatic biliary ductal dilation. Pancreas: Unremarkable, no focal lesions. Spleen: Unremarkable. Adrenals: Nodular thickening of the bilateral adrenal glands. Kidneys and ureters: Unremarkable. Bladder: Limited evaluation due to underdistention. Reproductive organs: Unremarkable. Bowel: Multiple loops of distended small bowel are seen measuring up to 46 mm in diameter. A large amount of stool is noted in the colon. No sharp transition points are seen in the terminal ileum is well distended. A small hiatal hernia is seen. Lymph nodes Retroperitoneal: Unremarkable. Mesenteric: Subcentimeter lymph nodes are noted. Pelvic: Unremarkable. Peritoneum: Normal. Vessels: Atherosclerotic calcifications are seen. Swirling of the mesenteric vasculature is seen in the inferior abdomen. Abdominal wall: A fat-containing umbilical hernia is seen. Bones: Degenerative changes in the visualized spine. IMPRESSION: Small bowel dilation without sharp transition point, large stool burden is noted. This may represent ileus such as from large stool burden, partial small bowel obstruction. However, swirling of the mesentery is seen, if the patient clinically worsens, contrast CT can be performed to exclude closed-loop obstruction. ACT 112: Negative or not required by law. Electronically signed by: Omari Ramirez M.D. 10/31/2021 11:[address] 10/31/21 10:19 CT OF THE HEAD WITHOUT CONTRAST CLINICAL HISTORY: confusion COMPARISON STUDY: Head CT February 27, 2019. MRI of the brain July 20, 2019. TECHNIQUE: Helical axial images of the head were obtained without IV contrast. Automated exposure control was utilized for the study. A dose lowering te chnique was utilized adhering to the principles of ALARA. FINDINGS: No acute intracranial hemorrhage, midline shift or mass effect is present. Dilatation of the lateral ventricles is unchanged from prior exams. The dilatation is most pronounced within the occipital horns and atria of the lateral ventricles. White matter hypodensities are similar to prior exam. The basal cisterns are patent. No extra-axial collections are present. There are no findings to suggest acute dural sinus thrombosis or acute territorial infarct. No significant calvarial abnormalities are present. Visualized portions of the sinuses and mastoid air cells are clear. IMPRESSION: 1. No acute intracranial findings. 2. No change in dilatation of the lateral ventricles. ACT 112: Negative or not required by law. Electronically signed by: Jose Srinivasan M.D. 10/31/2021 10:54 AM Discharge Plan Visit Data Chief Complaint: Confusion Stated Complaint: CONFUSION, ILLNESS, FEVER ED Provider: Carlos Oneill Discharge Problem: Altered mental status, Pneumonia, Fever Patient Disposition: Admitted As Inpatient Condition: Fair Discharge Instructions Interventions: ED Discharge Assessment Last Done: 10/31/21 16:45 Forms Stand Alone Forms: My [facility] Prescriptions Prescriptions: No Action fluticasone propionate 50 mcg/actuation spray,suspension 2 sprays INTNAS QAM RF: 0 loratadine [Allergy Relief (loratadine)] 10 mg tablet 10 mg PO QAM RF: 0 famotidine 20 mg tablet 20 mg PO DAILY RF: 0 Jardiance 10 mg tablet 10 mg PO DAILY RF: 0 atorvastatin 40 mg tablet 40 mg PO HS RF: 0 oxybutynin chloride 10 mg tablet extended release 24hr 10 mg PO QAM RF: 0 glimepiride 2 mg tablet 2 mg PO QAM RF: 0 metformin 500 mg tablet extended release 24 hr 1,000 mg PO BID RF: 0 lisinopril 2.5 mg tablet 2.5 mg PO HS RF: 0 Women's One Daily 18 mg iron-400 mcg-500 mg Ca Tablet 1 tab PO QAM RF: 0 vitamin B complex Tablet 1 tab PO QAM RF: 0 polyethylene glycol 3350 [Miralax] 17 gram powder in packet 17 gm PO HS RF: 0 ammonium lactate 12 % cream 1 applic TOPICAL QAM RF: 0 docusate sodium [Colace] 100 mg Capsule 100 mg PO BID RF: 0 clozapine 200 mg tablet 600 mg PO HS RF: 0 phenytoin sodium extended 100 mg capsule 200 mg PO BID RF: 0 levetiracetam 250 mg tablet 250 mg PO BID RF: 0 triamcinolone acetonide 0.1 % cream 1 applic TOPICAL BID PRN (Reason: Rash) RF: 0 Referrals Referrals: Delmy Jacobsen PA-C [Primary Care Provider] -
[2021-10-31 10:09] LABS: Mean Corpuscular Hgb Conc 35.1 g/dL (32-36); Mean Platelet Volume 11.9 fL (7.4-10.4); Platelet Count 133 K/uL (130-400)
[2021-10-31 10:15] LABS: Partial Thromboplastin Ratio 0.9; Partial Thromboplastin Time 26.1 Seconds (21.0-31.0); Prothrombin Time 10.4 Seconds (9.0-12.0)
[2021-10-31 10:18] LABS: Albumin Globulin Ratio 1.9 (0.9-2); Albumin Level 3.9 gm/dl (3.4-5.0); BUN Creatinine Ratio 38.8 (10-20); Bilirubin,Total 0.4 mg/dl (0.2-1.0); Calcium 8.1 mg/dl (8.5-10.1); Creatinine Clr Calc Pharmacy 70.4 ml/min; Est GFR (African American) 111.5 ml/min; Est GFR (Non-African American) 96.2 ml/min; Globulin 2.1 gm/dl (2.5-4.0); Magnesium 1.8 mg/dl (1.7-2.4); Potassium 4.1 mmol/L (3.5-5.1)
--- NOTE | 2021-10-31 10:19 | XRay Report ---
SINGLE VIEW CHEST CLINICAL HISTORY: Sepsis. FINDINGS: An AP, portable, upright chest radiograph is compared to study dated 07/06/2021. Degraded Th e cardiomediastinal silhouette is top normal for projection. Question mild pulmonary vascular congest ion. There is chronic elevation of the left hemidiaphragm. There are mild bibasilar airspace opacitie s. No large pleural effusion or pneumothorax is seen. The skeletal structures are osteopenic. The bon y thorax is grossly intact. IMPRESSION: 1. Question mild pulmonary vascular congestion. 2. Mild bibasilar opacities could represent atelectasis versus a mild infectious/inflammatory pneumon itis. Clinical correlation will be required and radiographic follow-up to resolution is recommended. ACT 112: Negative or not required by law. Electronically signed by: Carlos Savage M.D. 10/31/2021 10:18 AM
[2021-10-31 10:24] LABS: Troponin I High Sensitivity 2.6 pg/ml (0-14)
[2021-10-31 10:44] LABS: Influenza A virus by PCR Negative (Neg); Influenza B virus by PCR Negative (Neg); RSV by PCR Negative (Neg); SARS CoV2 RNA(COVID-19) InHosp NEGATIVE (Negative)
[2021-10-31 10:50] LABS: Appearance Urine Clear (Clear); Bilirubin Urine Negative (Negative); Blood Urine Negative (Negative); Color Urine Yellow; Glucose Urine UA 3+ (Negative); Ketones Urine Negative (Negative); Leukocyte Esterase Urine Negative (Negative); Nitrite Urine Negative (Negative); Protein Urine Negative (Negative); Specific Gravity Urine 1.036 (1.000-1.030); Urobilinogen Urine Negative (Negative)
--- NOTE | 2021-10-31 10:55 | CT Scan Report ---
CT OF THE HEAD WITHOUT CONTRAST CLINICAL HISTORY: confusion COMPARISON STUDY: Head CT February 27, 2019. MRI of the brain July 20, 2019. TECHNIQUE: Helical axial images of the head were obtained without IV contrast. Automated exposure con trol was utilized for the study. A dose lowering technique was utilized adhering to the principles o f ALARA. FINDINGS: No acute intracranial hemorrhage, midline shift or mass effect is present. Dilatation of th e lateral ventricles is unchanged from prior exams. The dilatation is most pronounced within the occi pital horns and atria of the lateral ventricles. White matter hypodensities are similar to prior exam . The basal cisterns are patent. No extra-axial collections are present. There are no findings to sug gest acute dural sinus thrombosis or acute territorial infarct. No significant calvarial abnormalitie s are present. Visualized portions of the sinuses and mastoid air cells are clear. IMPRESSION: 1. No acute intracranial findings. 2. No change in dilatation of the lateral ventricles. ACT 112: Negative or not required by law. Electronically signed by: Jose Srinivasan M.D. 10/31/2021 10:54 AM
[2021-10-31 11:00] LABS: Basophils # (auto) 0.01 K/uL (0-0.2); Basophils % (auto) 0.1 %; Hematocrit (blood only) 42.4 % (37-47); Hemoglobin 14.9 g/dL (12.0-16.0); Immature Granulocytes # (auto) 0.02 K/uL (0.00-0.02); Immature Granulocytes % (auto) 0.2 %; Lymphocytes # (auto) 0.25 K/uL (1.2-3.4); Lymphocytes % (auto) 2.4 %; Mean Corpuscular Hemoglobin 30.2 pg (25-34); Mean Corpuscular Volume 85.8 fL (80-100); Monocytes # (auto) 0.84 K/uL (0.11-0.59); Monocytes % (auto) 8.1 %; Neutrophils % (auto) 89.2 %; RDW Coefficient of Variation 15.3 % (11.5-14.5); RDW Standard Deviation 48.5 fL (36.4-46.3); Red Blood Count 4.94 M/uL (4.2-5.4); White Blood Count 10.42 K/uL (4.8-10.8)
--- NOTE | 2021-10-31 11:18 | CT Scan Report ---
CT abd pelvis wo con CLINICAL HISTORY: confusion, fever, MR TECHNIQUE: Helical axial images of the abdomen and pelvis were obtained. Automated dose lowering tech niques and/or adjustment according to patient size were utilized for this exam. This exam was perfor med without intravenous contrast. CT DOSE: 1962.50 mGy.cm COMPARISON: Comparison is made to CT abdomen pelvis 07/17/2018 FINDINGS: Lower chest: Patulous esophagus is noted. Liver: Unremarkable. No focal lesions are seen. Gallbladder and biliary tree: No calcified gallstones. Normal caliber wall. No intra- or extrahepatic biliary ductal dilation. Pancreas: Unremarkable, no focal lesions. Spleen: Unremarkable. Adrenals: Nodular thickening of the bilateral adrenal glands. Kidneys and ureters: Unremarkable. Bladder: Limited evaluation due to underdistention. Reproductive organs: Unremarkable. Bowel: Multiple loops of distended small bowel are seen measuring up to 46 mm in diameter. A large am ount of stool is noted in the colon. No sharp transition points are seen in the terminal ileum is wel l distended. A small hiatal hernia is seen. Lymph nodes Retroperitoneal: Unremarkable. Mesenteric: Subcentimeter lymph nodes are noted. Pelvic: Unremarkable. Peritoneum: Normal. Vessels: Atherosclerotic calcifications are seen. Swirling of the mesenteric vasculature is seen in t he inferior abdomen. Abdominal wall: A fat-containing umbilical hernia is seen. Bones: Degenerative changes in the visualized spine. IMPRESSION: Small bowel dilation without sharp transition point, large stool burden is noted. This may represent ileus such as from large stool burden, partial small bowel obstruction. However, swirling of the mese ntery is seen, if the patient clinically worsens, contrast CT can be performed to exclude closed-loop obstruction. ACT 112: Negative or not required by law. Electronically signed by: Omari Ramirez M.D. 10/31/2021 11:16 AM
[2021-10-31] MEDS ORDERED: SODIUM CHLORIDE 0.9% 1000ML 1,000 ML IV ONE (11:38)
--- NOTE | 2021-10-31 12:51 | History & Physical Report ---
Date of Service October 31, 2021 Assessment & Plan (1) Bilateral pneumonia: Plan: Patient is 61 y/o F with PMH seizure disorder, schizophrenia, DM II presented from [facility] home for fever and lethargy, coughx 1 day. In ER pt afebrile, P: 102, R: 19, BP: 101/59, 96% on RA. No leukocytosis, lactate WNL, procalcitonin: 0.36 CT head: No acute findings CXR: Mild bibasilar opacities could represent atelectasis versus a mild infectious/inflammatory pneumonitis Negative COVID-19, flu, influenza Blood cultures pending In ER given cefepime Start Rocephin, azithromycin Constipation ?Ileus CT Abd/pelvis: Small bowel dilation without sharp transition point, large stool burden is noted. This may represent ileus such as from large stool burden, partial small bowel obstruction. However, swirling of the mesentery is seen, if the patient clinically worsens, contrast CT can be performed to exclude closed- loop obstruction. History of chronic constipation No recent vomiting Start Bowel regimen Monitor closely, if no improvement or worsening consider bowel rest, repeat imaging, and/or general surgery consult DM II A1c: 6.8 on 07/15/2021 Hold home agents NovoLog sliding scale per protocol History seizure disorder No recent seizures reported Continue Keppra HTN Continue lisinopril Paranoid schizophrenia, depression, anxiety Continue home meds DVT Prophylaxis Lovenox SQ Full Code as per discussion with pt's parents Follows with Dr Esqueda for routine care Pt was seen and care coordinated with Dr Zheng. See addendum History of Present Illness Chief Complaint: Lethargy Primary Care Provider: Delmy Jacobsen PA-C Patient is 61 y/o F with PMH seizure disorder, schizophrenia, DM II presented from [facility] for fever and lethargy x 1 day. History obtained from chart review and palliative care nurse. Reported yesterday 100.2F gave Tylenol and no recurrent fever throughout the night. patient seemed didn't know where some objects were and seemed more tired. This morning sounded congested and coughing. Did rapid COVID 19 test yesterday and this morning and were negative. Today unable to stand and very lethargic and drowsy and became unable to wake up so EMS was called. at baseline has slight delay with responding, is alert and oriented, is able to walk without assistance, shower. Has chronic constipation, been moving bowels per caregiver, and denies any known diarrhea. Allergies Allergy/AdvReac Type Severity Reaction Status Date / Time aspirin Allergy Mild STOMACH Verified 08/25/21 13:20 ULCER BLEEDING salicylates Allergy Unknown Verified 08/25/21 13:20 valproic acid Allergy Unknown Verified 08/25/21 13:20 divalproex sodium Allergy Unknown Verified 08/25/21 13:20 [From [facility]] Home Medications Medication Instructions Recorded Confirmed Type atorvastatin 40 mg tablet 40 mg PO HS 07/17/18 10/31/21 History glimepiride 2 mg tablet 2 mg PO QAM 07/17/18 10/31/21 History lisinopril 2.5 mg tablet 2.5 mg PO HS 07/17/18 10/31/21 History metformin 500 mg tablet,extended 1,000 mg PO BID 07/17/18 10/31/21 History release 24 hr multivit-iron 18 mg-folic acid 400 1 tab PO QAM 07/17/18 10/31/21 History mcg-calcium 500 mg-minerals tablet (Women's One Daily) oxybutynin chloride 10 mg 10 mg PO QAM 07/17/18 10/31/21 History tablet,extended release 24 hr polyethylene glycol 3350 17 gram 17 gm PO HS 08/25/18 10/31/21 History oral powder packet (Miralax) vitamin B complex 1 tab PO QAM 08/25/18 10/31/21 History fluticasone propionate 50 2 sprays INTNAS QA 02/15/19 10/31/21 History mcg/actuation nasal spray,suspension loratadine 10 mg tablet (Allergy 10 mg PO QAM 02/15/19 10/31/21 History Relief (loratadine)) ammonium lactate 12 % topical cream 1 applic TOPICAL QAM 05/21/19 10/31/21 History docusate sodium 100 mg capsule 100 mg PO BID 05/21/19 10/31/21 History (Colace) triamcinolone acetonide 0.1 % 1 applic TOPICAL BID PRN 07/10/21 10/31/21 History topical cream empagliflozin 10 mg tablet 10 mg PO DAILY 08/25/21 10/31/21 History (Jardiance) famotidine 20 mg tablet 20 mg PO DAILY tab 08/25/21 10/31/21 History clozapine 200 mg tablet 600 mg PO HS 10/31/21 10/31/21 History levetiracetam 250 mg tablet 250 mg PO BID 10/31/21 10/31/21 History phenytoin sodium extended 100 mg 200 mg PO BID 10/31/21 10/31/21 History capsule Past Med/Surg History Medical History Complex partial seizure Depression Depression with anxiety Diabetes Heart murmur Hypertension Onychomycosis Schizophrenia Surgical History History of colonoscopy Family History Mother Diabetes Other Seizures Social History Smoking Status: Never smoker Hx Alcohol Use: No Hx Substance Use: No Preferred Language: Kyrgyz Communication Ability: Impaired Visual Impairment: No Limitations Hearing Ability: Normal 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 Beliefs That Will Affect Care: None marital status: Single Current Living Situation: Boarding Home current occupational status: disabled Feels Safe at Home: Yes Assistive Devices: None Assistive Devices Comment: does not usually use assistive devices; has walker but doesn't use Review of Systems Review of Systems: Unobtainable due to cognitive status Physical Exam Physical Exam: PE per Dr Zheng Results & Data [facility] Vital Signs (Past 12 Hours) Vital Signs Temp Pulse Pulse Resp BP BP Pulse Ox 10/31/21 11:00 19 97 10/31/21 10:30 17 97 10/31/21 10:14 18 96 10/31/21 09:45 36.4 C L 101 H 16 101/59 L 96 10/31/21 09:44 101 H 18 96 10/31/21 09:35 36.4 C L 102 H 19 101/59 L 96 Laboratory Results Short CBC 10/31/21 Range/Units 09:35 WBC 10.42 (4.8-10.8) K/uL Hgb 14.9 (12.0-16.0) g/dL Hct 42.4 (37-47) % Plt Count 133 (130-400) K/uL BMP 10/31/21 09:35 Sodium 134 L Potassium 4.1 Chloride 104 Carbon Dioxide 22 BUN 26 H Creatinine 0.67 Glucose 178 H Calcium 8.1 L Liver Function 10/31/21 Range/Units 09:35 Total Bilirubin 0.4 (0.2-1.0) mg/dl AST 23 (13-39) U/L ALT 28 (7-52) U/L Alkaline Phosphatase 89 (34-104) U/L Albumin 3.9 (3.4-5.0) gm/dl Urine 10/31/21 Range/Units 10:28 Urine Color Yellow Urine Appearance Clear (Clear) Urine pH 5.0 (4.5-7.5) Ur Specific [place] 1.036 H (1.000-1.030) Urine Protein Negative (Negative) Urine Glucose (UA) 3+ H (Negative) Diagnostic Findings Chest X-Ray 10/31/21 09:44 SINGLE VIEW CHEST CLINICAL HISTORY: Sepsis. FINDINGS: An AP, portable, upright chest radiograph is compared to study dated 07/06/2021. Degraded The cardiomediastinal silhouette is top normal for projection. Question mild pulmonary vascular congestion. There is chronic elevation of the left hemidiaphragm. There are mild bibasilar airspace opacities. No large pleural effusion or pneumothorax is seen. The skeletal structures are osteopenic. The bony thorax is grossly intact. IMPRESSION: 1. Question mild pulmonary vascular congestion. 2. Mild bibasilar opacities could represent atelectasis versus a mild infectious/inflammatory pneumonitis. Clinical correlation will be required and radiographic follow-up to resolution is recommended. ACT 112: Negative or not required by law. Electronically signed by: Carlos Savage M.D. 10/31/2021 10:18 AM Abdomen/Pelvis CT 10/31/21 10:19 CT abd pelvis wo con CLINICAL HISTORY: confusion, fever, MR TECHNIQUE: Helical axial images of the abdomen and pelvis were obtained. Automated dose lowering techniques and/or adjustment according to patient size were utilized for this exam. This exam was performed without intravenous contrast. CT DOSE: 1962.50 mGy.cm COMPARISON: Comparison is made to CT abdomen pelvis 07/17/2018 FINDINGS: Lower chest: Patulous esophagus is noted. Liver: Unremarkable. No focal lesions are seen. Gallbladder and biliary tree: No calcified gallstones. Normal caliber wall. No intra- or extrahepatic biliary ductal dilation. Pancreas: Unremarkable, no focal lesions. Spleen: Unremarkable. Adrenals: Nodular thickening of the bilateral adrenal glands. Kidneys and ureters: Unremarkable. Bladder: Limited evaluation due to underdistention. Reproductive organs: Unremarkable. Bowel: Multiple loops of distended small bowel are seen measuring up to 46 mm in diameter. A large amount of stool is noted in the colon. No sharp transition points are seen in the terminal ileum is well distended. A small hiatal hernia is seen. Lymph nodes Retroperitoneal: Unremarkable. Mesenteric: Subcentimeter lymph nodes are noted. Pelvic: Unremarkable. Peritoneum: Normal. Vessels: Atherosclerotic calcifications are seen. Swirling of the mesenteric vasculature is seen in the inferior abdomen. Abdominal wall: A fat-containing umbilical hernia is seen. Bones: Degenerative changes in the visualized spine. IMPRESSION: Small bowel dilation without sharp transition point, large stool burden is noted. This may represent ileus such as from large stool burden, partial small bowel obstruction. However, swirling of the mesentery is seen, if the patient clinically worsens, contrast CT can be performed to exclude closed-loop obstruction. ACT 112: Negative or not required by law. Electronically signed by: Omari Ramirez M.D. 10/31/2021 11:[address] 10/31/21 10:19 CT OF THE HEAD WITHOUT CONTRAST CLINICAL HISTORY: confusion COMPARISON STUDY: Head CT February 27, 2019. MRI of the brain July 20, 2019. TECHNIQUE: Helical axial images of the head were obtained without IV contrast. Automated exposure control was utilized for the study. A dose lowering technique was utilized adhering to the principles of ALARA. FINDINGS: No acute intracranial hemorrhage, midline shift or mass effect is present. Dilatation of the lateral ventricles is unchanged from prior exams. The dilatation is most pronounced within the occipital horns and atria of the lateral ventricles. White matter hypodensities are similar to prior exam. The basal cisterns are patent. No extra-axial collections are present. There are no findings to suggest acute dural sinus thrombosis or acute territorial infarct. No significant calvarial abnormalities are present. Visualized portions of the sinuses and mastoid air cells are clear. IMPRESSION: 1. No acute intracranial findings. 2. No change in dilatation of the lateral ventricles. ACT 112: Negative or not required by law. Electronically signed by: Jose Srinivasan M.D. 10/31/2021 10:54 AM Supervising Physician Co-Signing Physician Notes History and physical exam performed by me. History notable for 61-year-old woman with intellectual disability Who was brought in for altered mental status and fever. History obtained from caregiver was at bedside. Patient has intellectual disability resides at [facility]. Was noted to have become less interactive, somnolent, poor appetite yesterday. Also had low-grade temperature. Was noted to be coughing Got some Tylenol with improvement in fever. Due to nonimprovement, patient was brought to the ER today. On exam, General: Drowsy. Opened eye to name and went back to sleep Eyes: PERRL, conjunctivae normal, not pale ENMT: External ear and nose normal, oropharynx normal Respiratory: Normal respiratory effort, no respiratory distress, lungs clear to auscultation anteriorly Cardiovascular: Tachycardic, regular, S1 S2 Gastrointestinal (Abdomen): Abdomen is not distended, soft, non-tender to palpation, no guarding, no palpable hepatosplenomegaly, normal bowel sounds Musculoskeletal: No pedal edema Neurologic: Limited exam as patient was very drowsy and falls back to sleep Psychiatric: Limited exam Labs notable for sodium of 134, BUN of 26,. CT head did not show any acute abnormalities Abdominal CT noted small bowel dilatation without sharp transition point with large stool burden which may be ileus Chest x-ray noted mild bibasilar opacities-atelectasis versus infectious. Altered mental status Pneumonia. Start ceftriaxone azithromycin Follow-up blood cultures drawn in ER. Monitor mental status Lactate is normal Bowel regimen. Aspiration precautions Agree with other plans as detailed by Medina Ferrara PA-C (1) Bilateral pneumonia Lung location: lower lobe of lung Pneumonia type: due to unspecified organism Qualified Code(s): J18.9 - Pneumonia, unspecified organism
--- NOTE | 2021-10-31 14:07 | Communication Note ---
Date of Service: October 31, 2021 History and physical exam performed by me. History notable for 61-year-old woman with intellectual disability Who was brought in for altered mental status and fever. History obtained from caregiver was at bedside. Patient has intellectual disability resides at [facility]. Was noted to have become less interactive, somnolent, poor appetite yesterday. Also had low-grade temperature. Was noted to be coughing Got some Tylenol with improvement in fever. Due to nonimprovement, patient was brought to the ER today. On exam, General: Drowsy. Opened eye to name and went back to sleep Eyes: PERRL, conjunctivae normal, not pale ENMT: External ear and nose normal, oropharynx normal Respiratory: Normal respiratory effort, no respiratory distress, lungs clear to auscultation anteriorly Cardiovascular: Tachycardic, regular, S1 S2 Gastrointestinal (Abdomen): Abdomen is not distended, soft, non-tender to palpation, no guarding, no palpable hepatosplenomegaly, normal bowel sounds Musculoskeletal: No pedal edema Neurologic: Limited exam as patient was very drowsy and falls back to sleep Psychiatric: Limited exam Labs notable for sodium of 134, BUN of 26,. CT head did not show any acute abnormalities Abdominal CT noted small bowel dilatation without sharp transition point with large stool burden which may be ileus Chest x-ray noted mild bibasilar opacities-atelectasis versus infectious. Altered mental status Pneumonia. Start ceftriaxone azithromycin Follow-up blood cultures drawn in ER. Monitor mental status Lactate is normal Bowel regimen. Aspiration precautions Agree with other plans as detailed by Medina Ferrara PA-C
--- NOTE | 2021-10-31 14:38 | Electrocardiogram Report ---
Test Reason : Blood Pressure : / mmHG Vent. Rate : 105 BPM Atrial Rate : 105 BPM P-R Int : 132 ms QRS Dur : 082 ms QT Int : 342 ms P-R-T Axes : 051 -39 036 degrees QTc Int : 452 ms Sinus tachycardia Left axis deviation possible Inferior infarct , age undetermined Abnormal ECG When compared with ECG of 05-JUL-2021 15:24, Inferior infarct is now Present Confirmed by Leno Mccormick ([id number]) on 10/31/2021 2:37:34 PM Referred By: REFERRED SELF Confirmed By:Uriel Mccormick
[2021-10-31] MEDS ORDERED: DEXTROSE 50% 50 ML SYRINGE IV PRN (18:20)
[2021-10-31] MEDS ORDERED: ACETAMINOPHEN 325 MG TAB PO PRN (18:20)
[2021-10-31] MEDS ORDERED: CARBOHYDRATES FOR HYPOGLYCEMIA PO PRN (18:20)
[2021-10-31] MEDS ORDERED: GLUCAGON FOR INJ 1 MG VIAL SQ PRN (18:20)
[2021-10-31] MEDS ORDERED: GLUCOSE 10 TABS/TUBE PO PRN (18:20)
[2021-10-31] MEDS ORDERED: DOCUSATE SODIUM/SENNA 50/8.6MG TAB PO ONE (18:20)
[2021-10-31] MEDS ORDERED: GLUCOSE 40% GEL 15 GM TUBE PO PRN (18:20)
[2021-10-31] MEDS ORDERED: ONDANSETRON INJ 2 MG/ML 2 ML VIAL IV PRN (18:20)
[2021-10-31] MEDS ORDERED: POLYETHYLENE (MIRALAX) 17 GM PACK PO ONE (18:20)
[2021-10-31] MEDS ORDERED: bisacodyL 10 MG SUPP PR STA (18:20)
[2021-10-31] MEDS: cefTRIAXone SODIUM 2,000 MG in DEXTROSE 5% 50 ML IV SCH (21:23)
[2021-10-31] MEDS: ENOXAPARIN INJ 40 MG/0.4 ML SYR SQ SCH (21:29)
[2021-10-31] MEDS: ATORVASTATIN 40 MG TAB PO SCH (21:29)
[2021-10-31] MEDS: INSULIN ASPART PER UNIT SC SCH (21:30)
[2021-10-31] MEDS: levETIRAcetam 250 MG TAB PO SCH (21:30)
[2021-10-31] MEDS: lisinopril 2.5 MG TAB PO SCH (21:30)
[2021-10-31] MEDS: PHENYTOIN SODIUM ER 100 MG CAP PO SCH (21:31)
[2021-10-31] MEDS: AZITHROMYCIN 500 MG in DEXTROSE 5% 250 ML IV SCH (21:43)
[2021-10-31] MEDS: cloZAPine 100 MG TAB PO SCH (22:56)
[2021-11-01 06:23] LABS: Hemoglobin 13.7 g/dL (12.0-16.0); Mean Corpuscular Hemoglobin 28.7 pg (25-34); Mean Corpuscular Hgb Conc 33.4 g/dL (32-36); Mean Corpuscular Volume 85.8 fL (80-100); Mean Platelet Volume 11.6 fL (7.4-10.4); Platelet Count 126 K/uL (130-400); RDW Coefficient of Variation 15.6 % (11.5-14.5); RDW Standard Deviation 49.4 fL (36.4-46.3); Red Blood Count 4.78 M/uL (4.2-5.4)
[2021-11-01 06:46] LABS: Calcium 7.9 mg/dl (8.5-10.1); Est GFR (African American) 113.2 ml/min; Est GFR (Non-African American) 97.7 ml/min; Potassium 4.1 mmol/L (3.5-5.1)
[2021-11-01] MEDS: cefTRIAXone SODIUM 2,000 MG in DEXTROSE 5% 50 ML IV SCH (08:27)
[2021-11-01] MEDS: AMMONIUM LACTATE 12% LOTION 225 GM BTL EXT SCH (08:30)
[2021-11-01] MEDS: FAMOTIDINE 20 MG TAB PO SCH (08:33)
[2021-11-01] MEDS: FLUTICASONE PROPIONATE NA SPR 16 GM BTL NAE SCH (08:33)
[2021-11-01] MEDS: MULTIVITAMIN TAB PO SCH (08:34)
[2021-11-01] MEDS: levETIRAcetam 250 MG TAB PO SCH ×2 (08:34→20:04)
[2021-11-01] MEDS: PHENYTOIN SODIUM ER 100 MG CAP PO SCH ×2 (08:34→20:04)
[2021-11-01] MEDS: POLYETHYLENE (MIRALAX) 17 GM PACK PO SCH (08:34)
[2021-11-01] MEDS: OXYBUTYNIN CHLORIDE XL 5 MG TABCR PO SCH (08:34)
[2021-11-01] MEDS: LORATADINE 10 MG TAB PO SCH (08:34)
[2021-11-01] MEDS ORDERED: DOCUSATE SODIUM/SENNA 50/8.6MG TAB PO SCH (09:00)
[2021-11-01] MEDS: AZITHROMYCIN 500 MG in DEXTROSE 5% 250 ML IV SCH (09:57)
[2021-11-01] MEDS: INSULIN ASPART PER UNIT SC SCH ×4 (10:01→20:03)
--- NOTE | 2021-11-01 16:51 | Hospitalist Progress Note ---
Date of Service November 01, 2021 Assessment & Plan (1) Bilateral pneumonia: Plan: Patient is a 61 yr female with PMH seizure disorder, schizophrenia, DM II presented from [facility] home for fever and lethargy, cough x 1 day. Multifocal pneumonia Acute metabolic encephalopathy --CT Head:No acute intracranial findings. No change in dilatation of the lateral ventricles. --CXR:Mild bibasilar opacities could represent atelectasis versus a mild infectious/inflammatory pneumonitis Negative COVID-19, flu, influenza Procalcitonin 0.36 Blood Cx: No growth to date Continue Rocephin, azithromycin Day #2 Constipation Suspected Ileus --CT Abd/pelvis: Small bowel dilation without sharp transition point, large stool burden is noted. This may represent ileus such as from large stool burden, partial small bowel obstruction. However, swirling of the mesentery is seen, if the patient clinically worsens, contrast CT can be performed to exclude closed- loop obstruction. H/O Chronic constipation Continue Bowel regimen Will repeat KUB in AM Consider Surgery eval if needed DM II A1c: 6.8 on 07/15/2021 Hold home agents NovoLog sliding scale per protocol H/O seizure disorder No recent seizures reported Continue Keppra HTN Continue lisinopril Paranoid schizophrenia, depression, anxiety Continue home meds DVT Px Lovenox SQ Code Status Full Code Admission and Anticipated Discharge Date Admission Date: October 31, 2021 Subjective Patient is seen and examined at bedside Poor historian secondary to intellectual disability Oriented to person and place States having cough Denies any chest pain, dyspnea Low-grade fever today afternoon Review of Systems Review of Systems: All systems reviewed & are unremarkable except as noted in Subjective Physical Exam Physical Exam: Physical Exam: Vitals signs as noted above General Appearance:Moderately built and nourished, no apparent distress Head: normocephalic, Atraumatic Eyes: normal inspection, EOMI Neck: supple, Trachea midline Respiratory/Chest: Normal breath sounds, CTA, No accessory muscle use Cardiovascular: S1, S2, No murmur Abdomen/GI:Soft, Non tender, Bowel sounds present Extremities/Musculoskeletal:normal inspection, Trace edema Neurologic/Psych:AAOX2, grossly no focal neurological deficits, + Intellectual disability Skin: normal color, warm Results & Data Results & Data ([facility]) Vital Signs (Past 12 Hours) Vital Signs Temp Pulse Pulse Resp BP Pulse Ox 11/01/21 15:53 37.8 C H 101 H 13 98/67 L 97 11/01/21 11:29 37.0 C 100 H 20 109/69 96 11/01/21 07:30 36.6 C 84 15 120/66 95 11/01/21 07:27 106 H Laboratory Results Short CBC 11/01/21 Range/Units 05:21 WBC 10.20 (4.8-10.8) K/uL Hgb 13.7 (12.0-16.0) g/dL Hct 41.0 (37-47) % Plt Count 126 L (130-400) K/uL BMP 11/01/21 05:21 Sodium 138 Potassium 4.1 Chloride 109 H Carbon Dioxide 19 L BUN 16 Creatinine 0.64 Glucose 140 H Calcium 7.9 L (1) Bilateral pneumonia Lung location: lower lobe of lung Pneumonia type: due to unspecified organism Qualified Code(s): J18.9 - Pneumonia, unspecified organism
[2021-11-01] MEDS: ATORVASTATIN 40 MG TAB PO SCH (20:02)
[2021-11-01] MEDS: ENOXAPARIN INJ 40 MG/0.4 ML SYR SQ SCH (20:02)
[2021-11-01] MEDS: DOCUSATE SODIUM/SENNA 50/8.6MG TAB PO SCH (20:03)
[2021-11-01] MEDS: cloZAPine 100 MG TAB PO SCH (20:03)
[2021-11-01] MEDS: lisinopril 2.5 MG TAB PO SCH (20:04)
[2021-11-02 06:30] LABS: Hematocrit (blood only) 37.8 % (37-47); Hemoglobin 12.8 g/dL (12.0-16.0); Mean Corpuscular Hemoglobin 28.8 pg (25-34); Mean Corpuscular Hgb Conc 33.9 g/dL (32-36); Mean Corpuscular Volume 84.9 fL (80-100); Mean Platelet Volume 10.7 fL (7.4-10.4); Platelet Count 129 K/uL (130-400); RDW Coefficient of Variation 15.5 % (11.5-14.5); RDW Standard Deviation 48.4 fL (36.4-46.3); Red Blood Count 4.45 M/uL (4.2-5.4); White Blood Count 7.62 K/uL (4.8-10.8)
[2021-11-02 06:52] LABS: BUN Creatinine Ratio 25.5 (10-20); Calcium 8.3 mg/dl (8.5-10.1); Creatinine Clr Calc Pharmacy 113.2 ml/min; Est GFR (Non-African American) 105.3 ml/min
[2021-11-02] MEDS: POLYETHYLENE (MIRALAX) 17 GM PACK PO SCH (08:13)
[2021-11-02] MEDS: levETIRAcetam 250 MG TAB PO SCH ×2 (08:15→20:00)
[2021-11-02] MEDS: FLUTICASONE PROPIONATE NA SPR 16 GM BTL NAE SCH (08:15)
[2021-11-02] MEDS: FAMOTIDINE 20 MG TAB PO SCH (08:15)
[2021-11-02] MEDS: DOCUSATE SODIUM/SENNA 50/8.6MG TAB PO SCH ×2 (08:15→20:01)
[2021-11-02] MEDS: LORATADINE 10 MG TAB PO SCH (08:16)
[2021-11-02] MEDS: MULTIVITAMIN TAB PO SCH (08:16)
[2021-11-02] MEDS: OXYBUTYNIN CHLORIDE XL 5 MG TABCR PO SCH (08:16)
[2021-11-02] MEDS: PHENYTOIN SODIUM ER 100 MG CAP PO SCH ×2 (08:16→20:02)
[2021-11-02] MEDS: INSULIN ASPART PER UNIT SC SCH ×4 (08:25→23:16)
[2021-11-02] MEDS: cefTRIAXone SODIUM 2,000 MG in DEXTROSE 5% 50 ML IV SCH (08:26)
[2021-11-02] MEDS: AZITHROMYCIN 500 MG in DEXTROSE 5% 250 ML IV SCH (09:43)
[2021-11-02] MEDS: AMMONIUM LACTATE 12% LOTION 225 GM BTL EXT SCH (09:43)
--- NOTE | 2021-11-02 10:09 | XRay Report ---
XR KUB/Abdomen 1 view CLINICAL HISTORY: Constipation. COMPARISON STUDY: No previous studies for comparison. TECHNIQUE: 2 supine radiographs of the abdomen FINDINGS: The bowel gas pattern is within normal limits without evidence for dilatation or obstruction. There i s mild fecal stasis. There is no impaction. There is no evidence for organomegaly or gross intra-abdo cielo mass. No abnormal calcifications are seen along the course of the urinary tracts bilaterally. N o acute osseous pathology. IMPRESSION: 1. No acute intra-abdominal abnormality. Mild fecal stasis. ACT 112: Negative or not required by law. Electronically signed by: Eric Giron M.D. 11/02/2021 10:08 AM
--- NOTE | 2021-11-02 15:41 | Hospitalist Progress Note ---
Date of Service November 02, 2021 Assessment & Plan (1) Bilateral pneumonia: Plan: Patient is a 61 yr female with PMH seizure disorder, schizophrenia, DM II presented from [facility] home for fever and lethargy, cough x 1 day. Multifocal pneumonia Acute metabolic encephalopathy --CT Head:No acute intracranial findings. No change in dilatation of the lateral ventricles. --CXR:Mild bibasilar opacities could represent atelectasis versus a mild infectious/inflammatory pneumonitis Negative COVID-19, flu, influenza Procalcitonin 0.36 Blood Cx: No growth to date Continue Rocephin, azithromycin Day #3 Saturating well on room air Continue current management Constipation Suspected Ileus --CT Abd/pelvis: Small bowel dilation without sharp transition point, large stool burden is noted. This may represent ileus such as from large stool burden, partial small bowel obstruction. However, swirling of the mesentery is seen, if the patient clinically worsens, contrast CT can be performed to exclude closed- loop obstruction. H/O Chronic constipation Continue Bowel regimen KUB today showed no signs of obstruction. Mild fecal stasis. DM II A1c: 6.8 on 07/15/2021 Hold home agents NovoLog sliding scale per protocol H/O seizure disorder No recent seizures reported Continue Keppra HTN Continue lisinopril Paranoid schizophrenia, depression, anxiety Continue home meds DVT Px Lovenox SQ Code Status Full Code Admission and Anticipated Discharge Date Admission Date: October 31, 2021 Subjective Patient is seen and examined at bedside Poor historian secondary to intellectual disability Mental status seem to be back to baseline Less cough today Offers no complaints Saturating well on room air Denies any chest pain, dyspnea Review of Systems Review of Systems: All systems reviewed & are unremarkable except as noted in Subjective Physical Exam Physical Exam: Physical Exam: Vitals signs as noted above General Appearance:Moderately built and nourished, no apparent distress Head: normocephalic, Atraumatic Eyes: normal inspection, EOMI Neck: supple, Trachea midline Respiratory/Chest: Normal breath sounds, CTA, No accessory muscle use Cardiovascular: S1, S2, No murmur Abdomen/GI:Soft, Non tender, Bowel sounds present Extremities/Musculoskeletal:normal inspection, Trace edema Neurologic/Psych:AAOX2, grossly no focal neurological deficits, + Intellectual disability Skin: normal color, warm Results & Data Results & Data ([facility]) Vital Signs (Past 12 Hours) Vital Signs Temp Pulse Pulse Resp BP Pulse Ox 11/02/21 11:08 36.4 C L 86 18 106/67 93 11/02/21 08:00 83 11/02/21 06:28 36.5 C 82 20 99/62 L 96 Laboratory Results Short CBC 11/02/21 Range/Units 05:25 WBC 7.62 (4.8-10.8) K/uL Hgb 12.8 (12.0-16.0) g/dL Hct 37.8 (37-47) % Plt Count 129 L (130-400) K/uL BMP 11/02/21 05:25 Sodium 138 Potassium 4.0 Chloride 107 Carbon Dioxide 24 BUN 13 Creatinine 0.51 L Glucose 116 H Calcium 8.3 L (1) Bilateral pneumonia Lung location: lower lobe of lung Pneumonia type: due to unspecified organism Qualified Code(s): J18.9 - Pneumonia, unspecified organism
[2021-11-02] MEDS: ENOXAPARIN INJ 40 MG/0.4 ML SYR SQ SCH (20:00)
[2021-11-02] MEDS: cloZAPine 100 MG TAB PO SCH (20:00)
[2021-11-02] MEDS: ATORVASTATIN 40 MG TAB PO SCH (20:01)
[2021-11-02] MEDS: lisinopril 2.5 MG TAB PO SCH (20:02)
[2021-11-03 07:05] LABS: Hematocrit (blood only) 39.1 % (37-47); Hemoglobin 13.5 g/dL (12.0-16.0); Mean Corpuscular Hemoglobin 29.6 pg (25-34); Mean Corpuscular Hgb Conc 34.5 g/dL (32-36); Mean Corpuscular Volume 85.7 fL (80-100); Mean Platelet Volume 11.1 fL (7.4-10.4); Platelet Count 145 K/uL (130-400); RDW Coefficient of Variation 15.4 % (11.5-14.5); RDW Standard Deviation 48.7 fL (36.4-46.3); Red Blood Count 4.56 M/uL (4.2-5.4)
[2021-11-03 07:20] LABS: BUN Creatinine Ratio 27.5 (10-20); Calcium 8.6 mg/dl (8.5-10.1); Creatinine Clr Calc Pharmacy 115.1 ml/min; Est GFR (Non-African American) 105.3 ml/min; Potassium 4.1 mmol/L (3.5-5.1)
[2021-11-03] MEDS: INSULIN ASPART PER UNIT SC SCH ×2 (08:07→12:13)
[2021-11-03] MEDS: POLYETHYLENE (MIRALAX) 17 GM PACK PO SCH (08:08)
[2021-11-03] MEDS: AMMONIUM LACTATE 12% LOTION 225 GM BTL EXT SCH (08:09)
[2021-11-03] MEDS: FLUTICASONE PROPIONATE NA SPR 16 GM BTL NAE SCH (08:09)
[2021-11-03] MEDS: cefTRIAXone SODIUM 2,000 MG in DEXTROSE 5% 50 ML IV SCH (08:12)
[2021-11-03] MEDS: DOCUSATE SODIUM/SENNA 50/8.6MG TAB PO SCH (08:20)
[2021-11-03] MEDS: FAMOTIDINE 20 MG TAB PO SCH (08:20)
[2021-11-03] MEDS: levETIRAcetam 250 MG TAB PO SCH (08:20)
[2021-11-03] MEDS: MULTIVITAMIN TAB PO SCH (08:21)
[2021-11-03] MEDS: LORATADINE 10 MG TAB PO SCH (08:21)
[2021-11-03] MEDS: OXYBUTYNIN CHLORIDE XL 5 MG TABCR PO SCH (08:21)
[2021-11-03] MEDS: PHENYTOIN SODIUM ER 100 MG CAP PO SCH (08:21)
[2021-11-03] MEDS: AZITHROMYCIN 500 MG in DEXTROSE 5% 250 ML IV SCH (09:18)
--- NOTE | 2021-11-03 13:21 | Hospitalist Progress Note ---
Date of Service November 03, 2021 Assessment & Plan (1) Bilateral pneumonia: Plan: Patient is a 61 yr female with PMH seizure disorder, schizophrenia, DM II presented from [facility] home for fever and lethargy, cough x 1 day. Multifocal pneumonia Acute metabolic encephalopathy --CT Head:No acute intracranial findings. No change in dilatation of the lateral ventricles. --CXR:Mild bibasilar opacities could represent atelectasis versus a mild infectious/inflammatory pneumonitis Negative COVID-19, flu, influenza Procalcitonin 0.36 Blood Cx: No growth to date Continue Rocephin, azithromycin Day #4 Saturating well on room air Plan to discharge on p.o. antibiotics to complete the course Plan to be discharged to rehab facility today Constipation Suspected Ileus --CT Abd/pelvis: Small bowel dilation without sharp transition point, large stool burden is noted. This may represent ileus such as from large stool burden, partial small bowel obstruction. However, swirling of the mesentery is seen, if the patient clinically worsens, contrast CT can be performed to exclude closed- loop obstruction. H/O Chronic constipation Continue Bowel regimen KUB showed no signs of obstruction. Mild fecal stasis. No nausea, vomiting , abd pain DM II A1c: 6.8 on 07/15/2021 Hold home agents NovoLog sliding scale per protocol H/O seizure disorder No recent seizures reported Continue Keppra HTN Continue lisinopril Paranoid schizophrenia, depression, anxiety Continue home meds DVT Px Lovenox SQ Code Status Full Code Admission and Anticipated Discharge Date Admission Date: October 31, 2021 Subjective Patient is seen and examined at bedside Poor historian secondary to intellectual disability, Slow to respond at baseline Sleepy but easily awakes with calling her name States feeling better Cough much improved Denies any chest pain, dyspnea Plan to be discharged back to SNF today Review of Systems Review of Systems: All systems reviewed & are unremarkable except as noted in Subjective Physical Exam Physical Exam: Physical Exam: Vitals signs as noted above General Appearance:Moderately built and nourished, no apparent distress Head: normocephalic, Atraumatic Eyes: normal inspection, EOMI Neck: supple, Trachea midline Respiratory/Chest: Normal breath sounds, CTA, No accessory muscle use Cardiovascular: S1, S2, No murmur Abdomen/GI:Soft, Non tender, Bowel sounds present Extremities/Musculoskeletal:normal inspection, Trace edema Neurologic/Psych:AAOX2, grossly no focal neurological deficits, + Intellectual disability Skin: normal color, warm Results & Data Results & Data ([facility]) Vital Signs (Past 12 Hours) Vital Signs Temp Pulse Resp BP Pulse Ox 11/03/21 11:00 36.2 C L 82 18 98/63 L 94 11/03/21 07:05 36.8 C 79 20 122/75 95 11/03/21 03:15 36.4 C L 74 18 111/72 97 Laboratory Results Short CBC 11/03/21 Range/Units 06:26 WBC 5.00 (4.8-10.8) K/uL Hgb 13.5 (12.0-16.0) g/dL Hct 39.1 (37-47) % Plt Count 145 (130-400) K/uL BMP 11/03/21 06:26 Sodium 138 Potassium 4.1 Chloride 106 Carbon Dioxide 24 BUN 14 Creatinine 0.51 L Glucose 155 H Calcium 8.6 (1) Bilateral pneumonia Lung location: lower lobe of lung Pneumonia type: due to unspecified organism Qualified Code(s): J18.9 - Pneumonia, unspecified organism
--- NOTE | 2021-11-03 13:29 | Discharge Summary ---
Date of Service November 03, 2021 Admission HPI Per Admitting Provider Patient is 61 y/o F with PMH seizure disorder, schizophrenia, DM II presented from [facility] home for fever and lethargy x 1 day. 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 Reported yesterday 100.2F gave Tylenol and no recurrent fever throughout the night. patient seemed didn't know where some objects were and seemed more tired. This morning sounded congested and coughing. Did rapid COVID 19 test yesterday and this morning and were negative. Today unable to stand and very lethargic and drowsy and became unable to wake up so EMS was called. at baseline has slight delay with responding, is alert and oriented, is able to walk without assistance, shower. Has chronic constipation, been moving bowels per caregiver, and denies any known diarrhea. Admission Exam Per Admitting Provider On exam, General: Drowsy. Opened eye to name and went back to sleep Eyes: PERRL, conjunctivae normal, not pale ENMT: External ear and nose normal, oropharynx normal Respiratory: Normal respiratory effort, no respiratory distress, lungs clear to auscultation anteriorly Cardiovascular: Tachycardic, regular, S1 S2 Gastrointestinal (Abdomen): Abdomen is not distended, soft, non-tender to palpation, no guarding, no palpable hepatosplenomegaly, normal bowel sounds Musculoskeletal: No pedal edema Neurologic: Limited exam as patient was very drowsy and falls back to sleep Psychiatric: Limited exam Principal Diagnosis Multifocal pneumonia Acute metabolic encephalopathy Constipation Discharge Data Allergies Allergy/AdvReac Type Severity Reaction Status Date / Time aspirin Allergy Mild STOMACH Verified 08/25/21 13:20 ULCER BLEEDING salicylates Allergy Unknown Verified 08/25/21 13:20 valproic acid Allergy Unknown Verified 08/25/21 13:20 divalproex sodium Allergy Unknown Verified 08/25/21 13:20 [From Depakote] Consultations 10/31/21 12:26 ED Decision to Admit Stat Ordered Studies 10/31/21 10:19 CT abd pelvis wo con Stat CT head/brain wo con Stat Hospital Course (1) Bilateral pneumonia: Patient is a 61 yr female with PMH seizure disorder, schizophrenia, DM II presented from [facility] home for fever and lethargy, cough x 1 day. Multifocal pneumonia Acute metabolic encephalopathy --CT Head:No acute intracranial findings. No change in dilatation of the lateral ventricles. --CXR:Mild bibasilar opacities could represent atelectasis versus a mild infectious/inflammatory pneumonitis Negative COVID-19, flu, influenza Procalcitonin 0.36 Blood Cx: No growth to date Continue Rocephin, azithromycin Day #4 Saturating well on room air Plan to discharge on p.o. antibiotics to complete the course Plan to be discharged to rehab facility today Constipation Suspected Ileus --CT Abd/pelvis: Small bowel dilation without sharp transition point, large stool burden is noted. This may represent ileus such as from large stool burden, partial small bowel obstruction. However, swirling of the mesentery is seen, if the patient clinically worsens, contrast CT can be performed to exclude closed- loop obstruction. H/O Chronic constipation Continue Bowel regimen KUB showed no signs of obstruction. Mild fecal stasis. No nausea, vomiting , abd pain DM II A1c: 6.8 on 07/15/2021 Hold home agents NovoLog sliding scale per protocol H/O seizure disorder No recent seizures reported Continue Keppra HTN Continue lisinopril Paranoid schizophrenia, depression, anxiety Continue home meds DVT Px Lovenox SQ Code Status Full Code Total Time Total Time Spent Total Time Spent (In Minutes): 43 minutes Discharge Plan Discharge Items Patient Disposition: Personal Retirement Reason For Visit: PNEUMONIA Discharge Diagnosis: Multifocal pneumonia Acute metabolic encephalopathy Constipation Condition on Discharge: Fair Activity: Per Instructions section Exercise/Sports: Gradually increase as tolerated Non-emergency contact: Primary Care Provider Call non-emergency contact if: you have any medication questions, your symptoms worsen, your pain is concerning for you and you have a fever Follow-up/Referrals: Delmy Jacobsen PA-C [Primary Care Provider] - (Date & Time 11/06/2021 11:00 Rob Esqueda III, [facility] ) Diet: Carb Consistent or DM2 Diet Texture: Dental soft (bite-sized) Addtl Attending Provider Instructions: Follow-up with your primary care physician Delmy Jacobsen PA-C on 11/06/2021 11:00 as scheduled --- Complete antibiotic course as prescribed. --Your final blood cultures are pending at the time of discharge. Follow-up with your physician for results. Seek immediate medical attention if your symptoms reoccur or worsen Please take all medications as instructed on discharge list below. Please call if you have any questions or problems. You can reach a [facility] hospitalist on duty at [facility] 24 hours a day by calling [phone] Pending Studies at Discharge: Yes Studies:: Blood Cultures Stand-Alone Forms: My [facility], Smoking Cessation Skilled Items Patient informed of condition?: Yes DNR: No Discharge Level of Care: Other Communicable Disease: No Discharge Prognosis: Stable Lines: None Urinary Catheter: No Medications and DC Order Prescriptions: New sennosides-docusate sodium [Senokot-S] 8.6-50 mg Tablet 1 tab PO BID PRN (Reason: constipation) Qty: 60 RF: 0 polyethylene glycol 3350 [Miralax] 17 gram Powder In Packet 17 g PO DAILY PRN (Reason: constipation) Qty: 30 RF: 0 azithromycin 250 mg tablet 250 mg PO DAILY 3 Days Qty: 3 RF: 0 cefdinir 300 mg capsule 300 mg PO BID 5 Days Qty: 10 RF: 0 Continued fluticasone propionate 50 mcg/actuation spray,suspension 2 sprays INTNAS QAM RF: 0 loratadine [Allergy Relief (loratadine)] 10 mg tablet 10 mg PO QAM RF: 0 famotidine 20 mg tablet 20 mg PO DAILY RF: 0 Jardiance 10 mg tablet 10 mg PO DAILY RF: 0 atorvastatin 40 mg tablet 40 mg PO HS RF: 0 oxybutynin chloride 10 mg tablet extended release 24hr 10 mg PO QAM RF: 0 glimepiride 2 mg tablet 2 mg PO QAM RF: 0 metformin 500 mg tablet extended release 24 hr 1,000 mg PO BID RF: 0 lisinopril 2.5 mg tablet 2.5 mg PO HS RF: 0 Women's One Daily 18 mg iron-400 mcg-500 mg Ca Tablet 1 tab PO QAM RF: 0 vitamin B complex Tablet 1 tab PO QAM RF: 0 polyethylene glycol 3350 [Miralax] 17 gram powder in packet 17 gm PO HS RF: 0 ammonium lactate 12 % cream 1 applic TOPICAL QAM RF: 0 docusate sodium [Colace] 100 mg Capsule 100 mg PO BID RF: 0 clozapine 200 mg tablet 600 mg PO HS RF: 0 phenytoin sodium extended 100 mg capsule 200 mg PO BID RF: 0 levetiracetam 250 mg tablet 250 mg PO BID RF: 0 triamcinolone acetonide 0.1 % cream 1 applic TOPICAL BID PRN (Reason: Rash) RF: 0 Discharge Orders: Discharge Order (Routine); Ordered 11/03/21 Ordered By: Cm Moreland Admission Data Admit Date/Time: 10/31/21 13:00 Attending Provider: Cm Moreland Admit Provider: Alysa Zheng I. Primary Care Provider: Delmy Jacobsen Other Providers: Alysa Zheng I.
== END 2021-11-03 15:14 | disposition home or self-care (01) | DRG 193 ==
LOC: ED 09:25 → 2N 13:00 → SUATTDRO 13:00 → 2N 17:10

== ENCOUNTER 2022-07-02 08:02 | Inpatient (IN) ==
[2022-07-02] MEDS ORDERED: SODIUM CHLORIDE 0.9% 1000ML 1,000 ML IV SCH (08:30)
--- NOTE | 2022-07-02 08:56 | Emergency Department Note ---
Impression & Plan AMS (altered mental status), UTI (urinary tract infection), Generalized weakness, Dehydration ED Provider Note ED Provider Note NAME: ORLANDO LESLIE AGE:62 SEX: Female : 1960 ARRIVES VIA: EMS INFORMANT: staff member ED PROVIDER(s): Diann Dave DO CHIEF COMPLAINT: Altered mental status, weakness HPI: This is a 62-year-old female brought in due to concern for increased weakness and confusion as noted by staff at [facility] where she resides. Staff member states patient had COVID last week but had been recovering and improved and yesterday seemed back to her normal state of health. They state today they went in and she was weak, confused, could not stand without 2 person assist, could not feed herself or dress herself. Staff member states these are all typically activities which she can perform and that she is otherwise very independent. They are concerned as patient has previously had pneumonia. No other recent change in the patient's medications. No other changes to her overall health. Patient unable to provide any additional information. PAST MEDICAL HISTORY:See Below PAST SURGICAL HISTORY:See Below FAMILY HISTORY:See Below SOCIAL HISTORY:See Below HOME MEDICATIONS:See Below ALLERGIES:See Below VITALS:See Below PHYSICAL EXAMINATION: GENERAL: alert, ill appearing, well nourished, no distress, non-toxic EYE EXAM: normal conjunctiva, PERRL and EOM's grossly intact OROPHARYNX: no exudate, no erythema, lips, buccal mucosa, and tongue normal and mucous membranes are dry NECK: supple, no nuchal rigidity, no adenopathy, non-tender LUNGS: Clear to auscultation. Normal chest wall mechanics, no w/r/r HEART: no murmurs, S1 normal and S2 normal ABDOMEN: abdomen soft, non-tender, normo-active bowel sounds, no masses, no rebound or guarding. BACK: Back is symmetrical on inspection and there is no deformity, no midline tenderness, no CVA tenderness. SKIN: no rashes, petechiae, orbruising UPPER EXTREMITIES: upper extremities are grossly normal. FROM, nml pulses b/l. LOWER EXTREMITIES: No pitting edema. FROM, nml pulses b/l. NEURO EXAM: Normal sensorium, cranial nerves II-XII grossly intact, normal speech, no facial droop,patient moving all extremities spontaneously, would not cooperate for other bedside neuro testing Vital Signs: reviewed and remarkable Differential Diagnosis: dehydration, stroke, anemia, hypoglycemia, hyponatremia, hypernatremia, urinary tract infection, pneumonia, bronchitis, sepsis, gastroenteritis, additional abdominal pathology, metabolic abnormalities and infections. MEDICAL DECISION MAKING: This is a 62-year-old female who presents emergency department with staff from [facility] at bedside. Patient presents with altered mental status and generalized weakness. Patient with recent COVID infection, although seem to be recovering and doing well until today. Patient unable to provide additional history. Patient was afebrile and hemodynamically stable. Labs drawn and sent, IV established, blood cultures obtained. EKG performed and interpreted by me at bedside. Chest x-ray and CT head performed and were reassuring. Labs reassuring with patient although she did appear clinically dehydrated. She was given 30 mL/kg based on ideal body weight sepsis guidelines as a precaution. Family came to bedside additionally. Patient, family, and [facility] staff were updated at bedside and condition. Due to concern for persistent altered mentation, we discussed additional inpatient evaluation and management. Case discussed with hospitalist team, UA pending at time of discussion. Consultation(s): Discussed with Kristine De La Torre PA-C, [facility] hospitalist service. UA pending at this time. ER Treatment Provided: See below Diagnostics Interpreted By Me: -ECG: Sinus tachycardia at 106, leftward axis, normal QRS and QTc, no acute ST/T wave changes -Cardiac Monitoring: An order was placed for continuous cardiac monitoring. The monitor shows a rate of 92 with normal sinus rhythm. -Laboratory studies: As stated above and show below. -Imaging studies: [] Triage Nursing Note Reviewed Prior/Outside Records Reviewed -medication records from [facility], prior urine cultures Procedures: [] Critical Care: [] Past Med/Surg History Medical History Complex partial seizure Depression Depression with anxiety Diabetes Heart murmur Hypertension Onychomycosis Schizophrenia Surgical History History of colonoscopy Family History Mother Diabetes Other Seizures Social History Smoking Status: Never smoker Hx Alcohol Use: No Hx Substance Use: No Preferred Language: [place] Communication Ability: Impaired Visual Impairment: No Limitations Hearing Ability: Normal 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 Beliefs That Will Affect Care: None marital status: Single Current Living Situation: Boarding Home current occupational status: disabled Feels Safe at Home: Yes Assistive Devices: Glasses Allergies Allergies Allergy/AdvReac Type Severity Reaction Status Date / Time divalproex sodium Allergy Unknown Unknown Verified 07/02/22 13:11 [From Depakote] salicylates Allergy Unknown Unknown Verified 07/02/22 13:11 valproic acid Allergy Unknown Unknown Verified 07/02/22 13:11 aspirin AdvReac Severe STOMACH Verified 07/02/22 13:11 ULCER BLEEDING Home Meds Home Medications Medication Instructions Recorded Confirmed atorvastatin 40 mg tablet 40 mg PO 07/17/18 07/02/22 glimepiride 2 mg tablet 2 mg PO [facility] 07/17/18 07/02/22 lisinopril 2.5 mg tablet 2.5 mg PO 07/17/18 07/02/22 metformin 500 mg tablet,extended 1,000 mg PO BID 07/17/18 07/02/22 release 24 hr multivit-iron 18 mg-folic acid 400 1 tab PO QAM 07/17/18 07/02/22 mcg-calcium 500 mg-minerals tablet (Women's One Daily) oxybutynin chloride 10 mg 10 mg PO QAM 07/17/18 07/02/22 tablet,extended release 24 hr polyethylene glycol 3350 17 gram 17 gm PO [facility] 08/25/18 07/02/22 oral powder packet (Miralax) vitamin B complex 1 tab PO QAM 08/25/18 07/02/22 fluticasone propionate 50 2 sprays intranasal [facility] 02/15/19 07/02/22 mcg/actuation nasal spray,suspension loratadine 10 mg tablet (Allergy 10 mg PO [facility] 02/15/19 07/02/22 Relief (loratadine)) ammonium lactate 12 % topical cream 1 applic topical QAM 05/21/19 07/02/22 docusate sodium 100 mg capsule 100 mg PO BID 05/21/19 07/02/22 (Colace) triamcinolone acetonide 0.1 % 1 applic topical BID PRN Rash 07/10/21 07/02/22 topical cream empagliflozin 10 mg tablet 10 mg PO DAILY 08/25/21 07/02/22 (Jardiance) famotidine 20 mg tablet 20 mg PO DAILY 08/25/21 07/02/22 clozapine 200 mg tablet 600 mg PO HS 10/31/21 07/02/22 phenytoin sodium extended 100 mg 200 mg PO BID 10/31/21 07/02/22 capsule valacyclovir 500 mg tablet 500 mg PO DAILY 02/18/22 07/02/22 Previous Rx's Medication Instructions Recorded levetiracetam 250 mg tablet 250 mg PO BID #60 tabs 04/06/22 Results & Data (ED) Vital Signs Vital Signs - 24 hr 07/02/22 08:04 07/02/22 08:14 07/02/22 08:30 Temperature 36.9 C Temperature Source Oral Pulse Rate 106 H 105 H 103 H Respiratory Rate 15 19 Respiratory Depth Normal Blood Pressure 116/74 116/69 Blood Pressure Mean 88 84 Blood Pressure Position Lying Pulse Oximetry 98 95 Oxygen Delivery Method Room Air Room Air Sepsis New/Unexplained Change in Mental Status Yes Sepsis Action Taken by Nursing Physician Notified 07/02/22 09:30 07/02/22 10:30 07/02/22 11:00 Temperature Temperature Source Pulse Rate 102 H 93 H 92 H Respiratory Rate 17 17 19 Respiratory Depth Blood Pressure 110/69 114/62 Blood Pressure Mean 82 79 Blood Pressure Position Pulse Oximetry 96 97 97 Oxygen Delivery Method Room Air Room Air Room Air Sepsis New/Unexplained Change in Mental Status Sepsis Action Taken by Nursing 07/02/22 14:15 07/02/22 12:00 07/02/22 12:30 Temperature Temperature Source Pulse Rate 88 93 H 92 H Respiratory Rate 20 20 Respiratory Depth Blood Pressure 118/64 115/66 Blood Pressure Mean 82 82 Blood Pressure Position Pulse Oximetry 98 97 Oxygen Delivery Method Room Air Room Air Sepsis New/Unexplained Change in Mental Status Sepsis Action Taken by Nursing 07/02/22 13:30 07/02/22 14:30 07/02/22 15:00 Temperature Temperature Source Pulse Rate 87 89 86 Respiratory Rate 20 17 17 Respiratory Depth Blood Pressure 113/62 108/68 111/63 Blood Pressure Mean 79 81 79 Blood Pressure Position Pulse Oximetry 97 99 98 Oxygen Delivery Method Room Air Room Air Room Air Sepsis New/Unexplained Change in Mental Status Sepsis Action Taken by Nursing 07/02/22 16:00 Temperature Temperature Source Pulse Rate 84 Respiratory Rate 19 Respiratory Depth Blood Pressure 111/64 Blood Pressure Mean 79 Blood Pressure Position Pulse Oximetry 100 Oxygen Delivery Method Room Air Sepsis New/Unexplained Change in Mental Status Sepsis Action Taken by Nursing Laboratory Data 07/02/22 09:11 07/02/22 Unknown Lab Results 07/02/22 07/02/22 07/02/22 Range/Units 08:57 09:10 09:11 WBC 13.19 H (4.8-10.8) K/ul RBC 5.60 H (4.20-5.40) M/uL Hgb 16.8 H (12.0-16.0) g/dl Hct 50.0 H (37.0-47.0) % MCV 89.3 (80.0-100.0) fL MCH 30.0 (25.0-34.0) pg MCHC 33.6 (32.0-36.0) g/dL RDW Std Deviation 49.3 H (36.4-46.3) fL RDW Coeff of Liliana 15.1 H (11.5-14.5) % Plt Count 157 (130-400) K/uL MPV 11.5 (9.4-12.4) fL Immature Gran % (Auto) 0.5 % Neut % (Auto) 92.4 % Lymph % (Auto) 3.1 % Walsh % (Auto) 3.8 % Eos % (Auto) 0.0 % Baso % (Auto) 0.2 % Neut # (Auto) 12.19 H (1.40-6.50) K/uL Lymph # (Auto) 0.41 L (1.2-3.4) K/uL Walsh # (Auto) 0.50 (0.11-0.59) K/uL Eos # (Auto) 0.00 (0-0.50) K/uL Baso # (Auto) 0.02 (0-0.2) K/uL Immature Gran # (Auto) 0.07 (0.01-0.20) K/uL Absolute Nucleated RBC Nucleated RBC % (auto) Neutrophils % (Manual) Band Neutrophils % Lymphocytes % (Manual) Prolymphocyte % Reactive Lymphs % (Man) Monocytes % (Manual) Eosinophils % (Manual) Basophils % (Manual) Metamyelocytes % (Man) Myelocytes % (Man) Promyelocytes % (Man) Blast Cells % (Manual) Plasma Cell % (Manual) Other Cells % Nucleated RBC % Neutrophils # (Manual) Band Neutrophils # Total Absolute Neuts Lymphocytes # (Manual) Prolymphocyte # Reactive Lymphs # Total Abs Lymphocytes Monocytes # (Manual) Eosinophils # (Manual) Basophils # (Manual) Metamyelocytes # (Man) Myelocytes # (Manual) Promyelocytes # (Man) Blast Cells # (Man) Plasma Cell # (Manual) Other Cells # Nucleated RBCs # (Man) Hypersegmented Neuts Hyposegmented Neuts Hypogranular Neuts Large Granular Lymphs # Lrg Granular Lymphs Hairy Cells Smudge Cells Toxic Granulation Toxic Vacuolation Dohle Bodies Lynne Rods Platelet Estimate Hypogranular Platelets Giant Platelets Platelet Satelliting RBC Morphology Polychromasia Hypochromasia Poikilocytosis Basophilic Stippling Anisocytosis Microcytosis Macrocytosis Spherocytes Pappenheimer Bodies Sickle Cells Target Cells Tear Drop Cells Ovalocytes Stomatocytes Sullivan-Elburn Bodies Echinocytes Acanthocytes (Spur) Rouleaux RBC Agglutinates Schistocytes Sezary Cell Sodium (136-145) mmol/L Potassium (3.5-5.1) mmol/L Chloride (98-107) mmol/L Carbon Dioxide (21-32) mmol/L Anion Gap (3-11) BUN (6-23) mg/dl Creatinine (0.6-1.2) mg/dl Est Cr Clr Drug Dosing ml/min Est GFR ( Amer) ml/min Est GFR (Non-Af Amer) ml/min BUN/Creatinine Ratio (10-20) Glucose (70-99(Fasting)) mg/dl Lactate 1.3 (0.4-2.0) mmol/L Calcium (8.5-10.1) mg/dl Magnesium (1.7-2.4) mg/dl Total Bilirubin (0.2-1.0) mg/dl Direct Bilirubin (0-0.2) mg/dl AST (13-39) U/L ALT (7-52) U/L Alkaline Phosphatase (34-104) U/L Troponin I High Sens (0-14) pg/ml Total Protein (6.0-8.3) gm/dl Albumin (3.4-5.0) gm/dl Procalcitonin (0-0.5) ng/ml Urine Color Urine Appearance (Clear) Urine pH (4.5-7.5) Ur Specific [place] (1.000-1.030) Urine Protein (Negative) Urine Glucose (UA) (Negative) Urine Ketones (Negative) Urine Blood (Negative) Urine Nitrite (Negative) Urine Bilirubin (Negative) Urine Urobilinogen (Negative) Ur Leukocyte Esterase (Negative) Urine WBC (Auto) (0-5) /hpf Urine RBC (Auto) (0-4) /hpf U Hyaline Cast (Auto) (0-5) /lpf U Epithel Cells (Auto) (0-5) /lpf Urine Bacteria (Auto) (Negative) Phenytoin (10-20) mcg/ml Adenovirus (PCR) Not Detected (NotDetected) B. pertussis DNA (PCR) Not Detected (NotDetected) B.parapertussis DNA PCR Not Detected (NotDetected) C. pneumoniae DNA (PCR) Not Detected (NotDetected) Coronavirus OC43 (PCR) Not Detected (NotDetected) Coronavirus HKU1 (PCR) Not Detected (NotDetected) Coronavirus 229E (PCR) Not Detected (NotDetected) SARS-CoV-2 (PCR) DETECTED A* (NotDetected) Coronavirus NL63 (PCR) Not Detected (NotDetected) Human Metapneumovir PCR Not Detected (NotDetected) Influenza Type A (PCR) Not Detected (NotDetected) Influenza Type B (PCR) Not Detected (NotDetected) M. pneumoniae (PCR) Not Detected (NotDetected) Parainfluenza 1 (PCR) Not Detected (NotDetected) Parainfluenza 2 (PCR) Not Detected (NotDetected) Parainfluenza 3 (PCR) Not Detected (NotDetected) Parainfluenza 4 (PCR) Not Detected (NotDetected) RSV (PCR) Not Detected (NotDetected) Entero/Rhino (PCR) Not Detected (NotDetected) Blood Parasites ID 07/02/22 07/02/22 07/02/22 Range/Units 09:11 12:59 14:10 WBC (4.8-10.8) K/ul RBC (4.20-5.40) M/uL Hgb (12.0-16.0) g/dl Hct (37.0-47.0) % MCV (80.0-100.0) fL MCH (25.0-34.0) pg MCHC (32.0-36.0) g/dL RDW Std Deviation (36.4-46.3) fL RDW Coeff of Liliana (11.5-14.5) % Plt Count (130-400) K/uL MPV (9.4-12.4) fL Immature Gran % (Auto) % Neut % (Auto) % Lymph % (Auto) % Walsh % (Auto) % Eos % (Auto) % Baso % (Auto) % Neut # (Auto) (1.40-6.50) K/uL Lymph # (Auto) (1.2-3.4) K/uL Walsh # (Auto) (0.11-0.59) K/uL Eos # (Auto) (0-0.50) K/uL Baso # (Auto) (0-0.2) K/uL Immature Gran # (Auto) (0.01-0.20) K/uL Absolute Nucleated RBC Nucleated RBC % (auto) Neutrophils % (Manual) Band Neutrophils % Lymphocytes % (Manual) Prolymphocyte % Reactive Lymphs % (Man) Monocytes % (Manual) Eosinophils % (Manual) Basophils % (Manual) Metamyelocytes % (Man) Myelocytes % (Man) Promyelocytes % (Man) Blast Cells % (Manual) Plasma Cell % (Manual) Other Cells % Nucleated RBC % Neutrophils # (Manual) Band Neutrophils # Total Absolute Neuts Lymphocytes # (Manual) Prolymphocyte # Reactive Lymphs # Total Abs Lymphocytes Monocytes # (Manual) Eosinophils # (Manual) Basophils # (Manual) Metamyelocytes # (Man) Myelocytes # (Manual) Promyelocytes # (Man) Blast Cells # (Man) Plasma Cell # (Manual) Other Cells # Nucleated RBCs # (Man) Hypersegmented Neuts Hyposegmented Neuts Hypogranular Neuts Large Granular Lymphs # Lrg Granular Lymphs Hairy Cells Smudge Cells Toxic Granulation Toxic Vacuolation Dohle Bodies Lynne Rods Platelet Estimate Hypogranular Platelets Giant Platelets Platelet Satelliting RBC Morphology Polychromasia Hypochromasia Poikilocytosis Basophilic Stippling Anisocytosis Microcytosis Macrocytosis Spherocytes Pappenheimer Bodies Sickle Cells Target Cells Tear Drop Cells Ovalocytes Stomatocytes Sullivan-Elburn Bodies Echinocytes Acanthocytes (Spur) Rouleaux RBC Agglutinates Schistocytes Sezary Cell Sodium (136-145) mmol/L Potassium (3.5-5.1) mmol/L Chloride (98-107) mmol/L Carbon Dioxide (21-32) mmol/L Anion Gap (3-11) BUN (6-23) mg/dl Creatinine (0.6-1.2) mg/dl Est Cr Clr Drug Dosing ml/min Est GFR ( Amer) ml/min Est GFR (Non-Af Amer) ml/min BUN/Creatinine Ratio (10-20) Glucose (70-99(Fasting)) mg/dl Lactate (0.4-2.0) mmol/L Calcium (8.5-10.1) mg/dl Magnesium (1.7-2.4) mg/dl Total Bilirubin (0.2-1.0) mg/dl Direct Bilirubin (0-0.2) mg/dl AST (13-39) U/L ALT (7-52) U/L Alkaline Phosphatase (34-104) U/L Troponin I High Sens (0-14) pg/ml Total Protein (6.0-8.3) gm/dl Albumin (3.4-5.0) gm/dl Procalcitonin 0.26 (0-0.5) ng/ml Urine Color Yellow Urine Appearance Clear (Clear) Urine pH 5.0 (4.5-7.5) Ur Specific [place] 1.043 H (1.000-1.030) Urine Protein Trace H (Negative) Urine Glucose (UA) 3+ H (Negative) Urine Ketones Negative (Negative) Urine Blood Negative (Negative) Urine Nitrite Positive A (Negative) Urine Bilirubin Negative (Negative) Urine Urobilinogen Negative (Negative) Ur Leukocyte Esterase Negative (Negative) Urine WBC (Auto) 1-5 (0-5) /hpf Urine RBC (Auto) 0-4 (0-4) /hpf U Hyaline Cast (Auto) 1-5 (0-5) /lpf U Epithel Cells (Auto) 10-20 H (0-5) /lpf Urine Bacteria (Auto) 4+ H (Negative) Phenytoin 3.4 L (10-20) mcg/ml Adenovirus (PCR) (NotDetected) B. pertussis DNA (PCR) (NotDetected) B.parapertussis DNA PCR (NotDetected) C. pneumoniae DNA (PCR) (NotDetected) Coronavirus OC43 (PCR) (NotDetected) Coronavirus HKU1 (PCR) (NotDetected) Coronavirus 229E (PCR) (NotDetected) SARS-CoV-2 (PCR) (NotDetected) Coronavirus NL63 (PCR) (NotDetected) Human Metapneumovir PCR (NotDetected) Influenza Type A (PCR) (NotDetected) Influenza Type B (PCR) (NotDetected) M. pneumoniae (PCR) (NotDetected) Parainfluenza 1 (PCR) (NotDetected) Parainfluenza 2 (PCR) (NotDetected) Parainfluenza 3 (PCR) (NotDetected) Parainfluenza 4 (PCR) (NotDetected) RSV (PCR) (NotDetected) Entero/Rhino (PCR) (NotDetected) Blood Parasites ID 07/02/22 07/02/22 07/02/22 Range/Units Unknown Unknown Unknown WBC Cancelled (4.8-10.8) K/ul RBC Cancelled (4.20-5.40) M/uL Hgb Cancelled (12.0-16.0) g/dl Hct Cancelled (37.0-47.0) % MCV Cancelled (80.0-100.0) fL MCH Cancelled (25.0-34.0) pg MCHC Cancelled (32.0-36.0) g/dL RDW Std Deviation Cancelled (36.4-46.3) fL RDW Coeff of Liliana Cancelled (11.5-14.5) % Plt Count Cancelled (130-400) K/uL MPV Cancelled (9.4-12.4) fL Immature Gran % (Auto) Cancelled % Neut % (Auto) Cancelled % Lymph % (Auto) Cancelled % Walsh % (Auto) Cancelled % Eos % (Auto) Cancelled % Baso % (Auto) Cancelled % Neut # (Auto) Cancelled (1.40-6.50) K/uL Lymph # (Auto) Cancelled (1.2-3.4) K/uL Walsh # (Auto) Cancelled (0.11-0.59) K/uL Eos # (Auto) Cancelled (0-0.50) K/uL Baso # (Auto) Cancelled (0-0.2) K/uL Immature Gran # (Auto) Cancelled (0.01-0.20) K/uL Absolute Nucleated RBC Cancelled Nucleated RBC % (auto) Cancelled Neutrophils % (Manual) Cancelled Band Neutrophils % Cancelled Lymphocytes % (Manual) Cancelled Prolymphocyte % Cancelled Reactive Lymphs % (Man) Cancelled Monocytes % (Manual) Cancelled Eosinophils % (Manual) Cancelled Basophils % (Manual) Cancelled Metamyelocytes % (Man) Cancelled Myelocytes % (Man) Cancelled Promyelocytes % (Man) Cancelled Blast Cells % (Manual) Cancelled Plasma Cell % (Manual) Cancelled Other Cells % Cancelled Nucleated RBC % Cancelled Neutrophils # (Manual) Cancelled Band Neutrophils # Cancelled Total Absolute Neuts Cancelled Lymphocytes # (Manual) Cancelled Prolymphocyte # Cancelled Reactive Lymphs # Cancelled Total Abs Lymphocytes Cancelled Monocytes # (Manual) Cancelled Eosinophils # (Manual) Cancelled Basophils # (Manual) Cancelled Metamyelocytes # (Man) Cancelled Myelocytes # (Manual) Cancelled Promyelocytes # (Man) Cancelled Blast Cells # (Man) Cancelled Plasma Cell # (Manual) Cancelled Other Cells # Cancelled Nucleated RBCs # (Man) Cancelled Hypersegmented Neuts Cancelled Hyposegmented Neuts Cancelled Hypogranular Neuts Cancelled Large Granular Lymphs Cancelled # Lrg Granular Lymphs Cancelled Hairy Cells Cancelled Smudge Cells Cancelled Toxic Granulation Cancelled Toxic Vacuolation Cancelled Dohle Bodies Cancelled Lynne Rods Cancelled Platelet Estimate Cancelled Hypogranular Platelets Cancelled Giant Platelets Cancelled Platelet Satelliting Cancelled RBC Morphology Cancelled Polychromasia Cancelled Hypochromasia Cancelled Poikilocytosis Cancelled Basophilic Stippling Cancelled Anisocytosis Cancelled Microcytosis Cancelled Macrocytosis Cancelled Spherocytes Cancelled Pappenheimer Bodies Cancelled Sickle Cells Cancelled Target Cells Cancelled Tear Drop Cells Cancelled Ovalocytes Cancelled Stomatocytes Cancelled Sullivan-Elburn Bodies Cancelled Echinocytes Cancelled Acanthocytes (Spur) Cancelled Rouleaux Cancelled RBC Agglutinates Cancelled Schistocytes Cancelled Sezary Cell Cancelled Sodium 140 (136-145) mmol/L Potassium 4.1 (3.5-5.1) mmol/L Chloride 107 (98-107) mmol/L Carbon Dioxide 24 (21-32) mmol/L Anion Gap 9 (3-11) BUN 30 H (6-23) mg/dl Creatinine 0.86 (0.6-1.2) mg/dl Est Cr Clr Drug Dosing 62.8 ml/min Est GFR ( Amer) 85.1 ml/min Est GFR (Non-Af Amer) 73.4 ml/min BUN/Creatinine Ratio 34.9 H (10-20) Glucose 179 H (70-99(Fasting)) mg/dl Lactate (0.4-2.0) mmol/L Calcium 9.3 (8.5-10.1) mg/dl Magnesium 2.0 (1.7-2.4) mg/dl Total Bilirubin 0.5 (0.2-1.0) mg/dl Direct Bilirubin 0.1 (0-0.2) mg/dl AST 24 (13-39) U/L ALT 27 (7-52) U/L Alkaline Phosphatase 130 H (34-104) U/L Troponin I High Sens 3.1 (0-14) pg/ml Total Protein 7.9 (6.0-8.3) gm/dl Albumin 4.6 (3.4-5.0) gm/dl Procalcitonin Cancelled (0-0.5) ng/ml Urine Color Urine Appearance (Clear) Urine pH (4.5-7.5) Ur Specific [place] (1.000-1.030) Urine Protein (Negative) Urine Glucose (UA) (Negative) Urine Ketones (Negative) Urine Blood (Negative) Urine Nitrite (Negative) Urine Bilirubin (Negative) Urine Urobilinogen (Negative) Ur Leukocyte Esterase (Negative) Urine WBC (Auto) (0-5) /hpf Urine RBC (Auto) (0-4) /hpf U Hyaline Cast (Auto) (0-5) /lpf U Epithel Cells (Auto) (0-5) /lpf Urine Bacteria (Auto) (Negative) Phenytoin (10-20) mcg/ml Adenovirus (PCR) (NotDetected) B. pertussis DNA (PCR) (NotDetected) B.parapertussis DNA PCR (NotDetected) C. pneumoniae DNA (PCR) (NotDetected) Coronavirus OC43 (PCR) (NotDetected) Coronavirus HKU1 (PCR) (NotDetected) Coronavirus 229E (PCR) (NotDetected) SARS-CoV-2 (PCR) (NotDetected) Coronavirus NL63 (PCR) (NotDetected) Human Metapneumovir PCR (NotDetected) Influenza Type A (PCR) (NotDetected) Influenza Type B (PCR) (NotDetected) M. pneumoniae (PCR) (NotDetected) Parainfluenza 1 (PCR) (NotDetected) Parainfluenza 2 (PCR) (NotDetected) Parainfluenza 3 (PCR) (NotDetected) Parainfluenza 4 (PCR) (NotDetected) RSV (PCR) (NotDetected) Entero/Rhino (PCR) (NotDetected) Blood Parasites ID Cancelled Administered Medications Discontinued Medications Sodium Chloride (Nss 1000ml) 1,000 mls @ 999 mls/hr IV .Q1H1M EDLMI Stop: 07/02/22 09:30 Last Infusion: 07/02/22 11:43 Dose: 0 mls/hr Documented By: [facility] Admin: 07/02/22 09:31 Dose: 999 mls/hr Documented By: [facility] Sodium Chloride (Nss 1000ml) 1,000 mls @ 999 mls/hr IV .Q1H1M ONE Stop: 07/02/22 12:33 Last Infusion: 07/02/22 13:39 Dose: 0 mls/hr Documented By: [facility] Admin: 07/02/22 11:40 Dose: 999 mls/hr Documented By: [facility] Ceftriaxone Sodium 1,000 mg/ (Dextrose) 50 mls @ 100 mls/hr IV NOW STA Stop: 07/02/22 14:36 Last Infusion: 07/02/22 15:20 Dose: 0 mls/hr Documented By: [facility] Admin: 02/16/23 14:45 Dose: 100 mls/hr Documented By: [facility] Imaging Data Radiologist's Impression: Chest X-Ray 07/02/22 08:29 SINGLE VIEW CHEST CLINICAL HISTORY: Sepsis. FINDINGS: An AP, portable, upright chest radiograph is compared to study dated 02/18/2022. The examination is degraded by portable technique and patient rotation. The cardiomediastinal silhouette is unremarkable. The lungs and pleural spaces are clear. No pneumothorax is seen. The skeletal structures are osteopenic. The bony thorax is grossly intact. IMPRESSION: No active disease in the chest. ACT 112: Negative or not required by law. Electronically signed by: Carlos Savage M.D. 07/02/2022 8:[address] 07/02/22 08:57 CT OF THE HEAD WITHOUT CONTRAST CLINICAL HISTORY: Altered mental status. COMPARISON STUDY: MRI of the brain July 20, 2019. Head CT October 31, 2021. CT DOSE: 691.05 mGy.cm TECHNIQUE: Helical axial images of the head were obtained without IV contrast. Automated exposure control was utilized for the study. A dose lowering technique was utilized adhering to the principles of ALARA. FINDINGS: No acute intracranial hemorrhage, midline shift or mass effect is present. The ventricular system is stable. Specifically, dilatation of the lateral ventricles remains unchanged. This is most pronounced within the atria and occipital horns of the lateral ventricles The basal cisterns are patent. No extra-axial collections are present. There are no findings to suggest acute dural sinus thrombosis or acute territorial infarct. No significant calvarial abnormalities are present. There is mild sinus mucosal thickening. IMPRESSION: 1. No acute intracranial findings. 2. No change in dilatation of the lateral ventricles. ACT 112: Negative or not required by law. Electronically signed by: Jose Srinivasan M.D. 07/02/2022 9:53 AM Discharge Plan Visit Data Chief Complaint: Lethargic ED Provider: Diann Dave Discharge Problem: AMS (altered mental status), UTI (urinary tract infection), Generalized weakness, Dehydration Forms Stand Alone Forms: [facility] Prescriptions Prescriptions: No Action levetiracetam 250 mg tablet 250 mg PO BID Qty: 60 3RF fluticasone propionate 50 mcg/actuation spray,suspension 2 sprays INTNAS QAM loratadine [Allergy Relief (loratadine)] 10 mg tablet 10 mg PO QAM famotidine 20 mg tablet 20 mg PO DAILY Rx Instructions: take 1 tab twice a day for 7 days and then once a day. Jardiance 10 mg tablet 10 mg PO DAILY atorvastatin 40 mg tablet 40 mg PO HS oxybutynin chloride 10 mg tablet extended release 24hr 10 mg PO QAM glimepiride 2 mg tablet 2 mg PO QAM metformin 500 mg tablet extended release 24 hr 1,000 mg PO BID lisinopril 2.5 mg tablet 2.5 mg PO HS Women's One Daily 18 mg iron-400 mcg-500 mg Ca Tablet 1 tab PO QAM vitamin B complex Tablet 1 tab PO QAM polyethylene glycol 3350 [Miralax] 17 gram powder in packet 17 gm PO QAM ammonium lactate 12 % cream 1 applic TOPICAL QAM Rx Instructions: Apply to feet. docusate sodium [Colace] 100 mg Capsule 100 mg PO BID clozapine 200 mg tablet 600 mg PO HS phenytoin sodium extended 100 mg capsule 200 mg PO BID triamcinolone acetonide 0.1 % cream 1 applic TOPICAL BID PRN (Reason: Rash) Rx Instructions: apply to right buttocks prn rash valacyclovir 500 mg Tablet 500 mg PO DAILY Referrals Referrals: Delmy Jacobsen PA-C [Primary Care Provider] -
--- NOTE | 2022-07-02 08:57 | XRay Report ---
SINGLE VIEW CHEST CLINICAL HISTORY: Sepsis. FINDINGS: An AP, portable, upright chest radiograph is compared to study dated 02/18/2022. The examina tion is degraded by portable technique and patient rotation. The cardiomediastinal silhouette is unre markable. The lungs and pleural spaces are clear. No pneumothorax is seen. The skeletal structures ar e osteopenic. The bony thorax is grossly intact. IMPRESSION: No active disease in the chest. ACT 112: Negative or not required by law. Electronically signed by: Carlos Savage M.D. 07/02/2022 8:56 AM
[2022-07-02 09:45] LABS: Hemoglobin 16.8 g/dl (12.0-16.0); Mean Corpuscular Hgb Conc 33.6 g/dL (32.0-36.0); Mean Corpuscular Volume 89.3 fL (80.0-100.0); Mean Platelet Volume 11.5 fL (9.4-12.4); Platelet Count 157 K/uL (130-400); RDW Coefficient of Variation 15.1 % (11.5-14.5); RDW Standard Deviation 49.3 fL (36.4-46.3); White Blood Count 13.19 K/ul (4.8-10.8)
--- NOTE | 2022-07-02 09:54 | CT Scan Report ---
CT OF THE HEAD WITHOUT CONTRAST CLINICAL HISTORY: Altered mental status. COMPARISON STUDY: MRI of the brain July 20, 2019. Head CT October 31, 2021. CT DOSE: 691.05 mGy.cm TECHNIQUE: Helical axial images of the head were obtained without IV contrast. Automated exposure con trol was utilized for the study. A dose lowering technique was utilized adhering to the principles o f ALARA. FINDINGS: No acute intracranial hemorrhage, midline shift or mass effect is present. The ventricular system is stable. Specifically, dilatation of the lateral ventricles remains unchanged. This is most pronounced within the atria and occipital horns of the lateral ventricles The basal cisterns are lewis nt. No extra-axial collections are present. There are no findings to suggest acute dural sinus thromb osis or acute territorial infarct. No significant calvarial abnormalities are present. There is mild sinus mucosal thickening. IMPRESSION: 1. No acute intracranial findings. 2. No change in dilatation of the lateral ventricles. ACT 112: Negative or not required by law. Electronically signed by: Jose Srinivasan M.D. 07/02/2022 9:53 AM
[2022-07-02 09:58] LABS: Adenovirus PCR Not Detected (NotDetected); Bordetella parapertussis PCR Not Detected (NotDetected); Bordetella pertussis PCR Not Detected (NotDetected); Chlamydia pneumoniae PCR Not Detected (NotDetected); Coronavirus 229E PCR Not Detected (NotDetected); Coronavirus HKU1 PCR Not Detected (NotDetected); Coronavirus NL63 PCR Not Detected (NotDetected); Coronavirus OC43PCR Not Detected (NotDetected); Human Metapneumovirus PCR Not Detected (NotDetected); Influenza A PCR Not Detected (NotDetected); Influenza B PCR Not Detected (NotDetected); Mycoplasma pneumoniae PCR Not Detected (NotDetected); Parainfluenza Virus 1 PCR Not Detected (NotDetected); Parainfluenza Virus 2 PCR Not Detected (NotDetected); Parainfluenza Virus 3 PCR Not Detected (NotDetected); Parainfluenza Virus 4 PCR Not Detected (NotDetected); Respiratory Syncytial VirusPCR Not Detected (NotDetected); Rhinovirus/Enterovirus PCR Not Detected (NotDetected)
[2022-07-02 10:02] LABS: Coronavirus CoV-2 (COVID19)PCR DETECTED (NotDetected)
[2022-07-02 10:24] LABS: Basophils # (auto) 0.02 K/uL (0-0.2); Basophils % (auto) 0.2 %; Immature Granulocytes # (auto) 0.07 K/uL (0.01-0.20); Immature Granulocytes % (auto) 0.5 %; Lymphocytes # (auto) 0.41 K/uL (1.2-3.4); Lymphocytes % (auto) 3.1 %; Monocytes % (auto) 3.8 %; Neutrophils # (auto) 12.19 K/uL (1.40-6.50); Neutrophils % (auto) 92.4 %
[2022-07-02] MEDS ORDERED: SODIUM CHLORIDE 0.9% 1000ML 1,000 ML IV ONE (11:33)
[2022-07-02 11:36] LABS: Albumin Level 4.6 gm/dl (3.4-5.0); Bilirubin Direct 0.1 mg/dl (0-0.2); Bilirubin,Total 0.5 mg/dl (0.2-1.0); Calcium 9.3 mg/dl (8.5-10.1); Potassium 4.1 mmol/L (3.5-5.1)
[2022-07-02 11:42] LABS: BUN Creatinine Ratio 34.9 (10-20); Creatinine Clr Calc Pharmacy 62.8 ml/min; Est GFR (African American) 85.1 ml/min; Est GFR (Non-African American) 73.4 ml/min; Total Protein 7.9 gm/dl (6.0-8.3)
[2022-07-02 11:52] LABS: Troponin I High Sensitivity 3.1 pg/ml (0-14)
[2022-07-02 13:15] LABS: Appearance Urine Clear (Clear); Bacteria Urine Automated 4+ (Negative); Bilirubin Urine Negative (Negative); Blood Urine Negative (Negative); Color Urine Yellow; Glucose Urine UA 3+ (Negative); Ketones Urine Negative (Negative); Leukocyte Esterase Urine Negative (Negative); Nitrite Urine Positive (Negative); Protein Urine Trace (Negative); RBC Urine Automated 0-4 /hpf (0-4); Specific Gravity Urine 1.043 (1.000-1.030); Urobilinogen Urine Negative (Negative)
--- NOTE | 2022-07-02 14:24 | History & Physical Report ---
Date of Service July 02, 2022 Assessment & Plan (1) Metabolic encephalopathy: (2) UTI (urinary tract infection): (3) SARS-CoV-2 positive: (4) Acute dehydration: Plan This is a 62-year-old female who resides at [facility] and has significant past medical history of history of complex seizure disorder, schizophrenia, depression with anxiety, T2DM, hypertension and mild intellectual disability who presents to ED secondary to lethargy x1 day. Patient tested positive for SARS-CoV-2 approximately 1 week ago. Symptoms have since resolved. Was in her normal state of health yesterday. Staff found patient today lethargic and requiring significant assistance. At baseline patient is independent of ADLs with occasional cueing. In ED patient with evidence of dehydration due to elevated BUN, BUN/creatinine ratio and evidence of hemoconcentration on CBC. Urine consistent with likely UTI. Symptoms already improving after 2 L of IV fluid. Metabolic encephalopathy in setting of dehydration, UTI and recent diagnosis of SARS-CoV-2 SARS-CoV-2 positive -symptoms mostly resolved Acute UTI Dehydration Admit to telemetry Continue IV fluid LR at 80 cc/h for additional 2 L, reassess volume status in a.m. Empirically treat with 1 g IV Rocephin daily Await blood and urine cultures Consult PT/OT No COVID-specific therapies as she currently does not meet criteria follow cbc, bmp keppra, clozapine and phenytoin levels sent, last doses on 07/01 CRP in a.m. Fall, Aspiration, COVID & seizure precautions passed dysphagia screen in ED, diabetic Diet T2DM Controlled, last A1c 05/26/2022 was 6.4 Hold metformin, Jardiance and glimepiride Lantus/NovoLog protocol while inpatient Complex seizure disorder No recent seizure activity Obtain levels of Keppra and Dilantin Seizure precautions Schizophrenia Depression with anxiety Mild intellectual disability Continue clozapine Hypertension Continue lisinopril with parameters History of constipation Continue MiraLAX and Colace DVT prophylaxis Lovenox 30 mg SQ twice daily Full code Disposition: Admit to telemetry, PT OT consulted, likely return to [facility] when medically stable PCP: Dheeraj Patient was seen and examined in collaboration with Dr. Moreland, please see addendum A total of 95 minutes were spent with greater than 50% of that time face to face with the patient, personally reviewing all current laboratories, imaging studies, past medication reconciliation, outpatient chart review, and discussion with specialists to collaborate care for the patient with attending. Please see attending documentation for corrections and/or additions. History of Present Illness Chief Complaint: Lethargy x 1 day. Primary Care Provider: Delmy Jacobsen PA-C This is a 62-year-old female who resides at [facility] and has significant past medical history of history of complex seizure disorder, schizophrenia, depression with anxiety, T2DM, hypertension and mild intellectual disability who presents to ED secondary to lethargy x1 day. Of significance patient tested positive for COVID approximately a week ago. She had mild cold- like symptoms which have since resolved. Staff at [facility] felt like she was back to her baseline yesterday. At baseline she is typically independent of her ADLs alert and oriented x3 and able to answer questions appropriately. She does occasionally need cueing. At baseline she has a good appetite and eats/drinks well. This morning when staff went into her room they found her still in bed. She was a max of 2 assist to get out of bed and required assistance with dressing. Due to a significant change from baseline she was brought to the ER for further evaluation. In ER patient made hemodynamically stable although she did have mild sinus tachycardia on arrival. Lab work revealed evidence of hemoconcentration in setting of dehydration with elevated H&H at 16.8 and 50.0. She did have mild leukocytosis with WBC of 13.19 K. Her CMP revealed elevated BUN at 30, creatinine 0.86, ratio 34.9, glucose 179 and elevated alk phos at 130. Her urinalysis was consistent with infection with positive nitrate and +4 bacteria. Chest x-ray negative for acute abnormality. Procalcitonin WNL. Her SARS-CoV-2 was still positive. She received 2 L of IV fluid in ED. Per ED provider on arrival patient was lethargic and not answering questions. During my evaluation after she has had 2 L of IV fluid she was awake, alert and able to answer simple questions. She denied any pain, shortness of breath, nausea, vomiting, abdominal pain. She was asking for food. Staff member was sitting at bedside and she was able to recognize her. There was no reported fever. ROS slightly limited due to patient's history of intellectual disability. Allergies Allergy/AdvReac Type Severity Reaction Status Date / Time divalproex sodium Allergy Unknown Unknown Verified 07/02/22 13:11 [From Depakote] salicylates Allergy Unknown Unknown Verified 07/02/22 13:11 valproic acid Allergy Unknown Unknown Verified 07/02/22 13:11 aspirin AdvReac Severe STOMACH Verified 07/02/22 13:11 ULCER BLEEDING Home Medications Medication Instructions Recorded Confirmed Type atorvastatin 40 mg tablet 40 mg PO HS 07/17/18 07/02/22 History glimepiride 2 mg tablet 2 mg PO QAM 07/17/18 07/02/22 History lisinopril 2.5 mg tablet 2.5 mg PO HS 07/17/18 07/02/22 History metformin 500 mg tablet,extended 1,000 mg PO BID 07/17/18 07/02/22 History release 24 hr multivit-iron 18 mg-folic acid 400 1 tab PO QAM 07/17/18 07/02/22 History mcg-calcium 500 mg-minerals tablet (Women's One Daily) oxybutynin chloride 10 mg 10 mg PO [facility] 07/17/18 07/02/22 History tablet,extended release 24 hr polyethylene glycol 3350 17 gram 17 gm PO QA 08/25/18 07/02/22 History oral powder packet (Miralax) vitamin B complex 1 tab PO QA 08/25/18 07/02/22 History fluticasone propionate 50 2 sprays intranasal QA 02/15/19 07/02/22 History mcg/actuation nasal spray,suspension loratadine 10 mg tablet (Allergy 10 mg PO [facility] 02/15/19 07/02/22 History Relief (loratadine)) ammonium lactate 12 % topical cream 1 applic topical QA 05/21/19 07/02/22 History docusate sodium 100 mg capsule 100 mg PO BID 05/21/19 07/02/22 History (Colace) triamcinolone acetonide 0.1 % 1 applic topical BID PRN Rash 07/10/21 07/02/22 History topical cream empagliflozin 10 mg tablet 10 mg PO DAILY 08/25/21 07/02/22 History (Jardiance) famotidine 20 mg tablet 20 mg PO DAILY 08/25/21 07/02/22 History clozapine 200 mg tablet 600 mg PO HS 10/31/21 07/02/22 History phenytoin sodium extended 100 mg 200 mg PO BID 10/31/21 07/02/22 History capsule valacyclovir 500 mg tablet 500 mg PO DAILY 02/18/22 07/02/22 History levetiracetam 250 mg tablet 250 mg PO BID #60 tabs 04/06/22 07/02/22 Rx Past Med/Surg History Medical History Complex partial seizure Depression Depression with anxiety Diabetes Heart murmur Hypertension Onychomycosis Schizophrenia Surgical History History of colonoscopy Family History Mother Diabetes Other Seizures Social History Smoking Status: Never smoker Hx Alcohol Use: No Hx Substance Use: No Preferred Language: Kazakh Communication Ability: Impaired Visual Impairment: No Limitations Hearing Ability: Normal Designer Architect Required: No Beliefs That Will Affect Care: None marital status: Single Current Living Situation: Boarding Home current occupational status: disabled Feels Safe at Home: Yes Assistive Devices: Glasses Review of Systems Review of Systems: All systems reviewed & are unremarkable except as noted in HPI & below Physical Exam Physical Exam: Constitutional: WD/WN, vitals as above, NAD, lying in bed, alert, following commands and answering simple questions Head: Normocephalic, Atraumatic Eyes: PERRL, conjunctivae normal, anicteric sclerae ENMT: external ear and nose normal, oropharynx normal Neck: trachea midline, no thyromegaly normal visual inspection Respiratory: normal respiratory effort, lungs clear to auscultation, no wheeze, rales, rhonchi. Normal insp/exp effort, no accessory muscle use Cardiovascular: RRR, no murmur, no edema Vessels: no JVD or carotid bruit Chest: normal inspection of chest Abdomen: normal bowel sounds, soft, nontender, no hepatosplenomegaly Musculoskeletal: no cyanosis or clubbing, AROM x 4 Skin: no rashes, warm and dry normal turgor Neurologic: PERRL, EOMI, accommodation nl, no face palsy, no dysarthria CN's II-XI intact bilaterally and moves all extremities Psychiatric: A+Ox3, euthymic affect Lymphatic: no cervical or axillary lymphadenopathy : deferred Results & Data Results & Data ([facility]) Vital Signs (Past 12 Hours) Vital Signs Temp Pulse Resp BP Pulse Ox O2 Del Method 07/02/22 14:15 88 07/02/22 11:00 92 H 19 97 Room Air 07/02/22 10:30 93 H 17 114/62 97 Room Air 07/02/22 09:30 102 H 17 110/69 96 Room Air 07/02/22 08:30 103 H 19 116/69 95 Room Air 07/02/22 08:14 105 H 07/02/22 08:04 36.9 C 106 H 15 116/74 98 Room Air Diagnostic Findings Chest X-Ray 07/02/22 08:29 SINGLE VIEW CHEST CLINICAL HISTORY: Sepsis. FINDINGS: An AP, portable, upright chest radiograph is compared to study dated 02/18/2022. The examination is degraded by portable technique and patient rotation. The cardiomediastinal silhouette is unremarkable. The lungs and pleural spaces are clear. No pneumothorax is seen. The skeletal structures are osteopenic. The bony thorax is grossly intact. IMPRESSION: No active disease in the chest. ACT 112: Negative or not required by law. Electronically signed by: Carlos Savage M.D. 07/02/2022 8:[address] 07/02/22 08:57 CT OF THE HEAD WITHOUT CONTRAST CLINICAL HISTORY: Altered mental status. COMPARISON STUDY: MRI of the brain July 20, 2019. Head CT October 31, 2021. CT DOSE: 691.05 mGy.cm TECHNIQUE: Helical axial images of the head were obtained without IV contrast. Automated exposure control was utilized for the study. A dose lowering technique was utilized adhering to the principles of ALARA. FINDINGS: No acute intracranial hemorrhage, midline shift or mass effect is present. The ventricular system is stable. Specifically, dilatation of the lateral ventricles remains unchanged. This is most pronounced within the atria and occipital horns of the lateral ventricles The basal cisterns are patent. No extra-axial collections are present. There are no findings to suggest acute dural sinus thrombosis or acute territorial infarct. No significant calvarial abnormalities are present. There is mild sinus mucosal thickening. IMPRESSION: 1. No acute intracranial findings. 2. No change in dilatation of the lateral ventricles. ACT 112: Negative or not required by law. Electronically signed by: Jose Srinivasan M.D. 07/02/2022 9:53 AM Medications Administered Medication List Discontinued Medications Sodium Chloride (Nss 1000ml) 1,000 mls @ 999 mls/hr IV .Q1H1M DELMI Stop: 07/02/22 09:30 Last Infusion: 07/02/22 11:43 Dose: 0 mls/hr Documented By: Admin: 07/02/22 09:31 Dose: 999 mls/hr Documented By: KAROL Sodium Chloride (Nss 1000ml) 1,000 mls @ 999 mls/hr IV .Q1H1M ONE Stop: 07/02/22 12:33 Last Infusion: 07/02/22 13:39 Dose: 0 mls/hr Documented By: Admin: 07/02/22 11:40 Dose: 999 mls/hr Documented By: KAROL ECG Rate (beats per minute): 106 Rhythm: sinus tachycardia Additional Comments: qtc 464ms, ecg was interpreted by myself COVID-19 Results Results COVID-19 Adm Lab Results: RBC 5.60 M/uL (4.20-5.40) H 07/02/22 WBC 13.19 K/ul (4.8-10.8) H 07/02/22 Hgb 16.8 g/dl (12.0-16.0) H 07/02/22 Hct 50.0 % (37.0-47.0) H 07/02/22 Plt Count 157 K/uL (130-400) 07/02/22 Neutrophils (%) (Auto) 92.4 % 07/02/22 Lymphocytes (%) (Auto) 3.1 % 07/02/22 Monocytes # (Auto) 0.50 K/uL (0.11-0.59) 07/02/22 Eosinophils # (Auto) 0.00 K/uL (0-0.50) 07/02/22 Immature Granulocyte % (Auto) 0.5 % 07/02/22 Neutrophils # (Auto) 12.19 K/uL (1.40-6.50) H 07/02/22 Lymphocytes # (Auto) 0.41 K/uL (1.2-3.4) L 07/02/22 Monocytes # (Auto) 0.50 K/uL (0.11-0.59) 07/02/22 Eosinophils # (Auto) 0.00 K/uL (0-0.50) 07/02/22 Basophils # (Auto) 0.02 K/uL (0-0.2) 07/02/22 Immature Granulocyte # (Auto) 0.07 K/uL (0.01-0.20) 3 Na 140 mmol/L (136-145) 07/02/22 K 4.1 mmol/L (3.5-5.1) 07/02/22 Cl 107 mmol/L (98-107) 07/02/22 CO2 24 mmol/L (21-32) 07/02/22 Anion Gap 9 (3-11) 07/02/22 BUN 30 mg/dl (6-23) H 07/02/22 Creatinine 0.86 mg/dl (0.6-1.2) 07/02/22 BUN/Creatinine Ratio 34.9 (10-20) H 07/02/22 Glucose Level 179 mg/dl (70-99(Fasting)) H 07/02/22 Ca 9.3 mg/dl (8.5-10.1) 07/02/22 Total Bilirubin 0.5 mg/dl (0.2-1.0) 07/02/22 Direct Bilirubin 0.1 mg/dl (0-0.2) 07/02/22 AST/SGOT 24 U/L (13-39) 07/02/22 ALT/SGPT 27 U/L (7-52) 07/02/22 Alkaline Phosphatase 130 U/L (34-104) H 07/02/22 Total Protein 7.9 gm/dl (6.0-8.3) 07/02/22 Albumin 4.6 gm/dl (3.4-5.0) 07/02/22 Procalcitonin 0.26 ng/ml (0-0.5) 07/02/22 Adenovirus (PCR) Not Detected (NotDetected) 07/02/22 B. parapertussis DNA (PCR) Not Detected (NotDetected) 06/17 11/06 B. pertussis DNA (PCR) Not Detected (NotDetected) 07/02/22 C. pneumoniae DNA (PCR) Not Detected (NotDetected) 3 Coronavirus Type OC43 (PCR) Not Detected (NotDetected) Coronavirus Type HKU1 (PCR) Not Detected (NotDetected) Coronavirus Type 229E (PCR) Not Detected (NotDetected) COVID-19 PCR DETECTED (NotDetected) A* 07/02/22 Coronavirus Type NL63 (PCR) Not Detected (NotDetected) Human Metapneumovirus (PCR) Not Detected (NotDetected) Influenza Virus Type A (PCR) Not Detected (NotDetected) Influenza Virus Type B (PCR) Not Detected (NotDetected) M. pneumoniae (PCR) Not Detected (NotDetected) 07/02/22 Parainfluenza Type 1 (PCR) Not Detected (NotDetected) 06/17 11/06 Parainfluenza Type 2 (PCR) Not Detected (NotDetected) 06/17 11/06 Parainfluenza Type 3 (PCR) Not Detected (NotDetected) 06/17 11/06 Parainfluenza Type 4 (PCR) Not Detected (NotDetected) 06/17 11/06 RSV (PCR) Not Detected (NotDetected) 07/02/22 Enterovirus/Rhinovirus (PCR) Not Detected (NotDetected) Chest X-Ray 07/02/22 Code Status & VTE Plan Code Status FULL CODE VTE Prophylaxis Plan VTE Prophylaxis will be ordered: Yes Supervising Physician Co-Signing Physician Notes Patient is a 62-year-old female with history of seizure disorder, schizophrenia and other medical problems presents with history of lethargy for 1 day duration. Patient was recently diagnosed to have COVID about 1 week ago. Poor historian. Most of the history is obtained from patient's caregiver at bedside. No known history of significant cough, dyspnea, dizziness, nausea, abdominal pain, diarrhea, fever, chills. Please review HPI for complete details of presentation. Blood work suggestive of leukocytosis 13.19 K, hemoconcentration with hemoglobin 16.8, normal electrolytes, glucose elevated 179, alkaline phosphatase 130. Urinalysis suggestive of possible UTI. Phenytoin, losartan, clozapine, nor clozapine levels pending. BioFire positive for COVID. CT head showed no acute intracranial findings. Chest x-ray showed no acute disease in the chest. Blood, urine cultures pending. EKG showed sinus tachycardia, left axis deviation, QTc 464. On exam patient is moderately built and nourished, no apparent distress, normocephalic atraumatic, EOMI, decreased breath sounds, clear to auscultation, S1-S2, tachycardia, no murmur, no pedal edema, abdomen soft, nontender, normal bowel sounds, alert, awake, grossly no focal deficits. Patient is admitted for management of acute metabolic encephalopathy likely secondary to UTI, COVID-19 infection, dehydration. Agree with empirically starting Rocephin. Follow-up cultures. Consider adjusting antiseizure medications based on levels. Seizure, fall, aspiration precautions requested. I personally reviewed the record. Patient is interviewed and examined at bedside. Patient's care is coordinated with Kristine Rodriguez PA-C. Please refer to the documentation above for details of patient's presentation and for discussion of other issues.
[2022-07-02] MEDS: cefTRIAXone SODIUM 1,000 MG in DEXTROSE 5% AD-VAN 50 ML IV STA ×2 (14:33→14:45)
--- NOTE | 2022-07-02 14:39 | Electrocardiogram Report ---
Test Reason : Blood Pressure : / mmHG Vent. Rate : 106 BPM Atrial Rate : 106 BPM P-R Int : 158 ms QRS Dur : 082 ms QT Int : 350 ms P-R-T Axes : 059 -58 044 degrees QTc Int : 464 ms Sinus tachycardia Left axis deviation Abnormal ECG When compared with ECG of 19-NOV-2021 17:04, Minimal criteria for Inferior infarct are now Present Confirmed by Leno Mccormick ([id number]) on 07/02/2022 2:38:32 PM Referred By: REFERRED SELF Confirmed By:Uriel Mccormick
[2022-07-02] MEDS ORDERED: MAGNESIUM HYDROXIDE SUSP 30 ML UDC PO PRN (17:32)
[2022-07-02] MEDS ORDERED: GLUCOSE 40% GEL 15 GM TUBE PO PRN (17:32)
[2022-07-02] MEDS ORDERED: CARBOHYDRATES FOR HYPOGLYCEMIA PO PRN (17:32)
[2022-07-02] MEDS ORDERED: ALUMINUM/MAGNESIUM SUSP 30 ML UDC PO PRN (17:32)
[2022-07-02] MEDS ORDERED: ONDANSETRON INJ 2 MG/ML 2 ML VIAL IV PRN (17:32)
[2022-07-02] MEDS ORDERED: DEXTROSE 50% 50 ML SYRINGE IV PRN (17:32)
[2022-07-02] MEDS ORDERED: POLYETHYLENE (MIRALAX) 17 GM PACK PO PRN (17:32)
[2022-07-02] MEDS ORDERED: GLUCAGON FOR INJ 1 MG VIAL SQ PRN (17:32)
[2022-07-02] MEDS ORDERED: ACETAMINOPHEN 325 MG TAB PO PRN (17:32)
[2022-07-02] MEDS ORDERED: GLUCOSE 10 TAB/TUBE PO PRN (17:32)
[2022-07-02] MEDS: LACTATED RINGER'S 1,000 ML IV SCH (17:59)
[2022-07-02] MEDS: INSULIN ASPART PER UNIT SC SCH ×2 (18:00→21:24)
[2022-07-02] MEDS ORDERED: PNEUMOCOCCAL Polysaccharide Vaccine 25mcg/0.5mL vial/Syr IM ONE (20:15)
[2022-07-02] MEDS ORDERED: Flu Vaccine (Fluarix) 0.5mL SYR (Standard Dose) IM ONE (20:15)
[2022-07-02] MEDS: PHENYTOIN SODIUM ER 100 MG CAP PO SCH (21:22)
[2022-07-02] MEDS: DOCUSATE SODIUM 100 MG CAP PO SCH (21:22)
[2022-07-02] MEDS: levETIRAcetam 250 MG TAB PO SCH (21:22)
[2022-07-02] MEDS: lisinopril 2.5 MG TAB PO SCH (21:22)
[2022-07-02] MEDS: ATORVASTATIN 40 MG TAB PO SCH (21:23)
[2022-07-02] MEDS: cloZAPine 100 MG TAB PO SCH (21:23)
[2022-07-02] MEDS: ENOXAPARIN INJ 30 MG/0.3 ML SYR SQ SCH (21:24)
[2022-07-02] MEDS: LANTUS PER UNIT CHARGE SQ SCH (21:25)
[2022-07-03] MEDS: LACTATED RINGER'S 1,000 ML IV SCH (06:35)
[2022-07-03 09:00] LABS: Basophils # (auto) 0.02 K/uL (0-0.2); Basophils % (auto) 0.2 %; Hematocrit (blood only) 40.3 % (37.0-47.0); Hemoglobin 14.1 g/dl (12.0-16.0); Immature Granulocytes # (auto) 0.06 K/uL (0.01-0.20); Immature Granulocytes % (auto) 0.5 %; Lymphocytes # (auto) 0.78 K/uL (1.2-3.4); Lymphocytes % (auto) 6.6 %; Mean Corpuscular Hemoglobin 30.5 pg (25.0-34.0); Mean Corpuscular Volume 87.2 fL (80.0-100.0); Mean Platelet Volume 11.4 fL (9.4-12.4); Monocytes # (auto) 0.64 K/uL (0.11-0.59); Monocytes % (auto) 5.4 %; Neutrophils # (auto) 10.32 K/uL (1.40-6.50); Neutrophils % (auto) 87.3 %; Platelet Count 128 K/uL (130-400); RDW Coefficient of Variation 15.1 % (11.5-14.5); RDW Standard Deviation 47.8 fL (36.4-46.3); Red Blood Count 4.62 M/uL (4.20-5.40); White Blood Count 11.82 K/ul (4.8-10.8)
[2022-07-03 09:21] LABS: BUN Creatinine Ratio 26.4 (10-20); C Reactive Protein 10.88 mg/dl (0-0.5); Calcium 8.4 mg/dl (8.5-10.1); Creatinine Clr Calc Pharmacy 96.6 ml/min; Est GFR (African American) 119.6 ml/min; Est GFR (Non-African American) 103.2 ml/min; Magnesium 1.8 mg/dl (1.7-2.4); Potassium 3.9 mmol/L (3.5-5.1)
[2022-07-03] MEDS: INSULIN ASPART PER UNIT SC SCH ×4 (09:37→20:51)
[2022-07-03] MEDS: LANTUS PER UNIT CHARGE SQ SCH ×2 (09:38→20:51)
[2022-07-03] MEDS: AMMONIUM LACTATE 12% LOTION 225 GM BTL EXT SCH (09:47)
[2022-07-03] MEDS: cefTRIAXone SODIUM 1,000 MG in DEXTROSE 5% AD-VAN 50 ML IV SCH (09:47)
[2022-07-03] MEDS: DOCUSATE SODIUM 100 MG CAP PO SCH ×2 (09:47→20:09)
[2022-07-03] MEDS: ENOXAPARIN INJ 30 MG/0.3 ML SYR SQ SCH ×2 (09:47→20:03)
[2022-07-03] MEDS: levETIRAcetam 250 MG TAB PO SCH ×2 (09:48→20:09)
[2022-07-03] MEDS: FLUTICASONE PROPIONATE NA SPR 16 GM BTL SCH (09:48)
[2022-07-03] MEDS: CEROVITE ADV FORMULA TAB PO SCH (09:48)
[2022-07-03] MEDS: FAMOTIDINE 20 MG TAB PO SCH (09:48)
[2022-07-03] MEDS: PHENYTOIN SODIUM ER 100 MG CAP PO SCH ×2 (09:48→20:08)
[2022-07-03] MEDS: VITAMIN B COMPLEX TAB PO SCH (09:48)
[2022-07-03] MEDS: OXYBUTYNIN CHLORIDE XL 5 MG TABCR PO SCH (09:48)
[2022-07-03] MEDS: LORATADINE 10 MG TAB PO SCH (09:48)
[2022-07-03] MEDS: valACYclovir HCL 500 MG TABLET PO SCH (09:48)
[2022-07-03] MEDS: POLYETHYLENE (MIRALAX) 17 GM PACK PO SCH (09:49)
--- NOTE | 2022-07-03 17:31 | Hospitalist Progress Note ---
Date of Service July 03, 2022 Assessment & Plan (1) Metabolic encephalopathy: (2) UTI (urinary tract infection): (3) SARS-CoV-2 positive: (4) Acute dehydration: Plan This is a 62-year-old female who resides at [facility] and has significant past medical history of history of complex seizure disorder, schizophrenia, depression with anxiety, T2DM, hypertension and mild intellectual disability who presents to ED secondary to lethargy x1 day. Patient tested positive for SARS-CoV-2 approximately 1 week ago. Symptoms have since resolved. Was in her normal state of health yesterday. Staff found patient today lethargic and requiring significant assistance. At baseline patient is independent of ADLs with occasional cueing. Urine consistent with likely UTI. Symptoms already improving after 2 L of IV fluid. Metabolic encephalopathy in setting of dehydration, UTI and recent diagnosis of SARS-CoV-2 Acute UTI Present on admission with lethargy UA positive for nitrite and bacteria Urine culture grew E. coli Blood culture no growth Currently on IV Rocephin We will follow urine sensitivity SARS-CoV-2 positive Testing positive for COVID-19 Asymptomatic currently Does not meet criteria for remdesivir and dexamethasone since patient saturating well on room air Elevated C-reactive protein Continue monitor closely Dehydration Possible related to acute illness such as UTI and COVID 19 in ED patient with evidence of dehydration due to elevated BUN, BUN/creatinine ratio and evidence of hemoconcentration on CBC. Receive IV fluid Continue monitor T2DM Controlled, last A1c 05/26/2022 was 6.4 Conitnue to hold metformin, Jardiance and glimepiride while inpatient Lantus/NovoLog protocol while inpatient Continue monitor blood sugar Complex seizure disorder No recent seizure activity Phenytoin levels low at 3.4 Keppra level pending Seizure precautions Schizophrenia Depression with anxiety Mild intellectual disability Continue clozapine Hypertension Continue lisinopril with parameters History of constipation Continue MiraLAX and Colace DVT prophylaxis Lovenox 30 mg SQ twice daily CODE STATUS full code Disposition: Plan to discharge once medically stable Admission and Anticipated Discharge Date Admission Date: July 02, 2022 Subjective Patient was seen and evaluated for follow-up of Lethargy Sitting in chair with no acute distress eating her lunch She saturated well on room air Denies any chest pain, palpitation, dizziness, shortness of breath. Review of Systems Review of Systems: All systems reviewed & are unremarkable except as noted in Subjective Physical Exam Physical Exam: General- No acute distress Head- atraumatic Eyes- PERRL, EOMI, ENT- oropharynx clear Neck- supple, no JVD Lungs- clear to auscultation Heart- regular rhythm; no murmur Abdomen- normal bowel sounds, soft, nontender Extremities- no calf tenderness Neuro- alert, oriented x 3; PERRL, EOMI; no facial palsy; no dysarthria, following commands and answering simple questions Skin- warm & dry Results & Data Results & Data ([facility]) Vital Signs (Past 12 Hours) Vital Signs Temp Pulse Pulse Resp BP Pulse Ox O2 Del Method 07/03/22 15:22 87 07/03/22 14:57 37.6 C H 82 18 105/70 95 Room Air 07/03/22 11:19 37.3 C 99 H 20 107/71 95 Room Air 07/03/22 10:00 07/03/22 08:06 83 07/03/22 07:50 36.1 C L 86 18 117/70 95 Room Air O2 Del Method 07/03/22 15:22 07/03/22 14:57 07/03/22 11:19 07/03/22 10:00 Room Air 07/03/22 08:06 07/03/22 07:50
[2022-07-03] MEDS: ATORVASTATIN 40 MG TAB PO SCH (20:06)
[2022-07-03] MEDS: cloZAPine 100 MG TAB PO SCH (20:07)
[2022-07-03] MEDS: lisinopril 2.5 MG TAB PO SCH (20:09)
[2022-07-04 06:35] LABS: Basophils # (auto) 0.02 K/uL (0-0.2); Basophils % (auto) 0.2 %; Hematocrit (blood only) 40.2 % (37.0-47.0); Hemoglobin 14.1 g/dl (12.0-16.0); Immature Granulocytes # (auto) 0.05 K/uL (0.01-0.20); Immature Granulocytes % (auto) 0.6 %; Lymphocytes # (auto) 1.13 K/uL (1.2-3.4); Lymphocytes % (auto) 13.7 %; Mean Corpuscular Hemoglobin 30.5 pg (25.0-34.0); Mean Corpuscular Hgb Conc 35.1 g/dL (32.0-36.0); Mean Corpuscular Volume 86.8 fL (80.0-100.0); Mean Platelet Volume 11.5 fL (9.4-12.4); Monocytes # (auto) 0.79 K/uL (0.11-0.59); Monocytes % (auto) 9.6 %; Neutrophils # (auto) 6.27 K/uL (1.40-6.50); Neutrophils % (auto) 75.9 %; Platelet Count 152 K/uL (130-400); RDW Coefficient of Variation 15.1 % (11.5-14.5); RDW Standard Deviation 47.9 fL (36.4-46.3); Red Blood Count 4.63 M/uL (4.20-5.40); White Blood Count 8.26 K/ul (4.8-10.8)
[2022-07-04 07:59] LABS: Potassium 3.9 mmol/L (3.5-5.1)
[2022-07-04 08:05] LABS: Creatinine Clr Calc Pharmacy 84.1 ml/min; Est GFR (Non-African American) 97.5 ml/min
[2022-07-04] MEDS: INSULIN ASPART PER UNIT SC SCH ×4 (08:56→21:45)
[2022-07-04] MEDS: levETIRAcetam 250 MG TAB PO SCH ×2 (09:11→21:00)
[2022-07-04] MEDS: FAMOTIDINE 20 MG TAB PO SCH (09:11)
[2022-07-04] MEDS: LORATADINE 10 MG TAB PO SCH (09:11)
[2022-07-04] MEDS: OXYBUTYNIN CHLORIDE XL 5 MG TABCR PO SCH (09:11)
[2022-07-04] MEDS: FLUTICASONE PROPIONATE NA SPR 16 GM BTL SCH (09:11)
[2022-07-04] MEDS: ENOXAPARIN INJ 30 MG/0.3 ML SYR SQ SCH ×2 (09:11→20:59)
[2022-07-04] MEDS: DOCUSATE SODIUM 100 MG CAP PO SCH ×2 (09:11→21:02)
[2022-07-04] MEDS: CEROVITE ADV FORMULA TAB PO SCH (09:11)
[2022-07-04] MEDS: LANTUS PER UNIT CHARGE SQ SCH ×2 (09:12→21:46)
[2022-07-04] MEDS: valACYclovir HCL 500 MG TABLET PO SCH (09:12)
[2022-07-04] MEDS: PHENYTOIN SODIUM ER 100 MG CAP PO SCH ×2 (09:12→21:01)
[2022-07-04] MEDS: POLYETHYLENE (MIRALAX) 17 GM PACK PO SCH (09:12)
[2022-07-04] MEDS: VITAMIN B COMPLEX TAB PO SCH (09:12)
[2022-07-04] MEDS: AMMONIUM LACTATE 12% LOTION 225 GM BTL EXT SCH (09:13)
[2022-07-04] MEDS: cefTRIAXone SODIUM 1,000 MG in DEXTROSE 5% AD-VAN 50 ML IV SCH (09:31)
--- NOTE | 2022-07-04 15:32 | Hospitalist Progress Note ---
Date of Service July 04, 2022 Assessment & Plan (1) Metabolic encephalopathy: (2) UTI (urinary tract infection): (3) SARS-CoV-2 positive: (4) Acute dehydration: Plan This is a 62-year-old female who resides at [facility] and has significant past medical history of history of complex seizure disorder, schizophrenia, depression with anxiety, T2DM, hypertension and mild intellectual disability who presents to ED secondary to lethargy x1 day. Patient tested positive for SARS-CoV-2 approximately 1 week ago. Symptoms have since resolved. Was in her normal state of health yesterday. Staff found patient today lethargic and requiring significant assistance. At baseline patient is independent of ADLs with occasional cueing. Urine consistent with likely UTI. Symptoms already improving after 2 L of IV fluid. Metabolic encephalopathy in setting of dehydration, UTI and recent diagnosis of SARS-CoV-2 Acute UTI Present on admission with lethargy UA positive for nitrite and bacteria Urine culture grew E. coli pansensitive Blood culture no growth Currently on IV Rocephin, will transition to keflex 500mg BID SARS-CoV-2 positive Testing positive for COVID-19 Asymptomatic currently Does not meet criteria for remdesivir and dexamethasone since patient saturating well on room air Elevated C-reactive protein Continue monitor closely Clinically stable Dehydration Possible related to acute illness such as UTI and COVID 19 in ED patient with evidence of dehydration due to elevated BUN, BUN/creatinine ratio and evidence of hemoconcentration on CBC. ReceivedIV fluid Continue monitor T2DM Controlled, last A1c 05/26/2022 was 6.4 Continue to hold metformin, Jardiance and glimepiride while inpatient Lantus/NovoLog protocol while inpatient Continue monitor blood sugar Complex seizure disorder No recent seizure activity Phenytoin levels low at 3.4 Keppra level pending Seizure precautions Schizophrenia Depression with anxiety Mild intellectual disability Continue clozapine Hypertension Continue lisinopril with parameters History of constipation Continue MiraLAX and Colace DVT prophylaxis Lovenox 30 mg SQ twice daily CODE STATUS full code Disposition: facility is not able to take her for the weekend Plan to discharge on Wednesday to [facility] Admission and Anticipated Discharge Date Admission Date: July 02, 2022 Subjective Patient was seen and evaluated for follow-up of Lethargy and UTI Sitting in chair with no acute distress She saturated well on room air The facility is not able to take her over the weekend Denies any chest pain, palpitation, dizziness, shortness of breath. Review of Systems Review of Systems: All systems reviewed & are unremarkable except as noted in Subjective Physical Exam Physical Exam: General- No acute distress Head- atraumatic Eyes- PERRL, EOMI, ENT- oropharynx clear Neck- supple, no JVD Lungs- clear to auscultation Heart- regular rhythm; no murmur Abdomen- normal bowel sounds, soft, nontender Extremities- no calf tenderness Neuro- alert, oriented x 3; PERRL, EOMI; no facial palsy; no dysarthria, following commands and answering simple questions Skin- warm & dry Results & Data Results & Data ([facility]) Vital Signs (Past 12 Hours) Vital Signs Temp Pulse Pulse Resp BP Pulse Ox O2 Del Method 07/04/22 11:29 36.4 C L 91 H 18 105/68 96 Room Air 07/04/22 08:00 Room Air 07/04/22 07:42 36.8 C 78 18 111/71 97 Room Air 07/04/22 07:40 73 07/04/22 04:00 36.7 C 73 18 124/70 98 Room Air
[2022-07-04] MEDS: ATORVASTATIN 40 MG TAB PO SCH (21:01)
[2022-07-04] MEDS: lisinopril 2.5 MG TAB PO SCH (21:01)
[2022-07-04] MEDS: cloZAPine 100 MG TAB PO SCH (21:02)
[2022-07-05] MEDS: INSULIN ASPART PER UNIT SC SCH ×4 (08:49→21:05)
[2022-07-05] MEDS: AMMONIUM LACTATE 12% LOTION 225 GM BTL EXT SCH (09:06)
[2022-07-05] MEDS: POLYETHYLENE (MIRALAX) 17 GM PACK PO SCH (09:06)
[2022-07-05] MEDS: valACYclovir HCL 500 MG TABLET PO SCH (09:07)
[2022-07-05] MEDS: ENOXAPARIN INJ 30 MG/0.3 ML SYR SQ SCH ×2 (09:07→22:18)
[2022-07-05] MEDS: cephALEXin 500 MG CAP PO SCH ×2 (09:07→22:16)
[2022-07-05] MEDS: levETIRAcetam 250 MG TAB PO SCH ×2 (09:07→22:20)
[2022-07-05] MEDS: DOCUSATE SODIUM 100 MG CAP PO SCH ×2 (09:07→22:18)
[2022-07-05] MEDS: FAMOTIDINE 20 MG TAB PO SCH (09:07)
[2022-07-05] MEDS: PHENYTOIN SODIUM ER 100 MG CAP PO SCH ×2 (09:07→22:21)
[2022-07-05] MEDS: VITAMIN B COMPLEX TAB PO SCH (09:08)
[2022-07-05] MEDS: CEROVITE ADV FORMULA TAB PO SCH (09:08)
[2022-07-05] MEDS: LORATADINE 10 MG TAB PO SCH (09:08)
[2022-07-05] MEDS: FLUTICASONE PROPIONATE NA SPR 16 GM BTL SCH (09:08)
[2022-07-05] MEDS: OXYBUTYNIN CHLORIDE XL 5 MG TABCR PO SCH (09:08)
[2022-07-05] MEDS: LANTUS PER UNIT CHARGE SQ SCH ×2 (09:09→21:05)
--- NOTE | 2022-07-05 14:31 | Hospitalist Progress Note ---
Date of Service July 05, 2022 Assessment & Plan (1) Metabolic encephalopathy: (2) UTI (urinary tract infection): (3) SARS-CoV-2 positive: (4) Acute dehydration: Plan This is a 62-year-old female who resides at [facility] and has significant past medical history of history of complex seizure disorder, schizophrenia, depression with anxiety, T2DM, hypertension and mild intellectual disability who presents to ED secondary to lethargy x1 day. Patient was found to have COVID-19 infection and UTI. At baseline patient is independent of ADLs with occasional cueing. She is being managed for the following: Metabolic encephalopathy in setting of dehydration, UTI and recent diagnosis of SARS-CoV-2 Acute UTI Present on admission with lethargy UA positive for nitrite and bacteria Urine culture grew E. coli pansensitive Blood culture no growth IV Rocephin to Keflex, continue with Keflex. Patient back to her baseline mentation. SARS-CoV-2 positive Testing positive for COVID-19 Asymptomatic currently Does not meet criteria for remdesivir and dexamethasone since patient saturating well on room air Elevated C-reactive protein Continue monitor closely Clinically stable Dehydration Possible related to acute illness such as UTI and COVID 19 in ED patient with evidence of dehydration due to elevated BUN, BUN/creatinine ratio and evidence of hemoconcentration on CBC. ReceivedIV fluid Continue monitor T2DM Controlled, last A1c 05/26/2022 was 6.4 Continue to hold metformin, Jardiance and glimepiride while inpatient Lantus/NovoLog protocol while inpatient Continue monitor blood sugar Complex seizure disorder No recent seizure activity Phenytoin levels low at 3.4 Keppra level pending Seizure precautions Schizophrenia Depression with anxiety Mild intellectual disability Continue clozapine Hypertension Continue lisinopril with parameters History of constipation Continue MiraLAX and Colace DVT prophylaxis Lovenox 30 mg SQ twice daily CODE STATUS full code Disposition: facility is not able to take her for the weekend Plan to discharge on Wednesday to [facility] Admission and Anticipated Discharge Date Admission Date: July 02, 2022 Subjective Patient seen and examined at bedside as a follow-up of metabolic encephalopathy in the setting of dehydration, acute UTI, symptomatic COVID-19 infection. Patient was sitting up in chair, on room air, NAD, reports no new acute event overnight, reports eating okay, denies shortness of breath or chest pain or palpitation or dizziness. Physical Exam Physical Exam: GENERAL: Alert and awake. NAD, on RA. Slow to respond/react. HEENT: No pallor, no icterus. Pupils equal, round and reactive to light. Oral mucosa moist. NECK: No JVD, no neck masses. HEART: S1 and S2 heard. Regular rate and rhythm. No murmur, no gallop. RESPIRATORY SYSTEM: Normal AP diameter. No accessory muscle use. No wheezing, no crackles. ABDOMEN: Soft, bowel sounds present, nontender, no distention. CENTRAL NERVOUS SYSTEM: No facial droop. Speech is clear. Obeys simple commands. Moves extremities. EXTREMITIES: No edema, no erythema seen. Results & Data Results & Data ([facility]) Vital Signs (Past 12 Hours) Vital Signs Temp Pulse Pulse Resp BP Pulse Ox O2 Del Method 07/05/22 11:33 36.7 C 18 122/81 97 Room Air 07/05/22 07:44 68 07/05/22 07:27 36.3 C L 78 18 117/74 94 Room Air
[2022-07-05] MEDS: ATORVASTATIN 40 MG TAB PO SCH (22:15)
[2022-07-05] MEDS: cloZAPine 100 MG TAB PO SCH (22:17)
[2022-07-05] MEDS: lisinopril 2.5 MG TAB PO SCH (22:20)
[2022-07-06 07:43] LABS: Basophils # (auto) 0.02 K/uL (0-0.2); Basophils % (auto) 0.3 %; Hematocrit (blood only) 41.2 % (37.0-47.0); Immature Granulocytes # (auto) 0.03 K/uL (0.01-0.20); Immature Granulocytes % (auto) 0.5 %; Lymphocytes # (auto) 1.01 K/uL (1.2-3.4); Lymphocytes % (auto) 15.5 %; Mean Corpuscular Hemoglobin 29.9 pg (25.0-34.0); Mean Platelet Volume 11.4 fL (9.4-12.4); Monocytes # (auto) 0.58 K/uL (0.11-0.59); Monocytes % (auto) 8.9 %; Neutrophils # (auto) 4.89 K/uL (1.40-6.50); Neutrophils % (auto) 74.8 %; Platelet Count 157 K/uL (130-400); RDW Coefficient of Variation 15.1 % (11.5-14.5); RDW Standard Deviation 48.8 fL (36.4-46.3); Red Blood Count 4.68 M/uL (4.20-5.40); White Blood Count 6.53 K/ul (4.8-10.8)
[2022-07-06 07:57] LABS: Albumin Globulin Ratio 1.6 (0.9-2); Albumin Level 3.6 gm/dl (3.4-5.0); BUN Creatinine Ratio 34.5 (10-20); Bilirubin,Total 0.4 mg/dl (0.2-1.0); Est GFR (African American) 116.1 ml/min; Est GFR (Non-African American) 100.2 ml/min; Globulin 2.3 gm/dl (2.5-4.0); Magnesium 1.8 mg/dl (1.7-2.4); Total Protein 5.9 gm/dl (6.0-8.3)
[2022-07-06] MEDS: LANTUS PER UNIT CHARGE SQ SCH (08:02)
[2022-07-06] MEDS: INSULIN ASPART PER UNIT SC SCH ×2 (08:03→12:05)
[2022-07-06] MEDS: AMMONIUM LACTATE 12% LOTION 225 GM BTL EXT SCH (08:10)
[2022-07-06] MEDS: OXYBUTYNIN CHLORIDE XL 5 MG TABCR PO SCH (08:11)
[2022-07-06] MEDS: PHENYTOIN SODIUM ER 100 MG CAP PO SCH (08:11)
[2022-07-06] MEDS: valACYclovir HCL 500 MG TABLET PO SCH (08:11)
[2022-07-06] MEDS: LORATADINE 10 MG TAB PO SCH (08:11)
[2022-07-06] MEDS: cephALEXin 500 MG CAP PO SCH (08:12)
[2022-07-06] MEDS: DOCUSATE SODIUM 100 MG CAP PO SCH (08:12)
[2022-07-06] MEDS: levETIRAcetam 250 MG TAB PO SCH (08:12)
[2022-07-06] MEDS: CEROVITE ADV FORMULA TAB PO SCH (08:13)
[2022-07-06] MEDS: FAMOTIDINE 20 MG TAB PO SCH (08:13)
[2022-07-06] MEDS: ENOXAPARIN INJ 30 MG/0.3 ML SYR SQ SCH (08:13)
[2022-07-06] MEDS: FLUTICASONE PROPIONATE NA SPR 16 GM BTL SCH (08:14)
[2022-07-06] MEDS: VITAMIN B COMPLEX TAB PO SCH (08:14)
[2022-07-06] MEDS: POLYETHYLENE (MIRALAX) 17 GM PACK PO SCH (08:14)
--- NOTE | 2022-07-06 12:48 | Discharge Summary ---
Date of Service July 06, 2022 Admission HPI Per Admitting Provider This is a 62-year-old female who resides at [facility] and has significant past medical history of history of complex seizure disorder, schizophrenia, depression with anxiety, T2DM, hypertension and mild intellectual disability who presents to ED secondary to lethargy x1 day. Of significance patient tested positive for COVID approximately a week ago. She had mild cold- like symptoms which have since resolved. Staff at [facility] felt like she was back to her baseline yesterday. At baseline she is typically independent of her ADLs alert and oriented x3 and able to answer questions appropriately. She does occasionally need cueing. At baseline she has a good appetite and eats/drinks well. This morning when staff went into her room they found her still in bed. She was a max of 2 assist to get out of bed and required assistance with dressing. Due to a significant change from baseline she was brought to the ER for further evaluation. In ER patient made hemodynamically stable although she did have mild sinus tachycardia on arrival. Lab work revealed evidence of hemoconcentration in setting of dehydration with elevated H&H at 16.8 and 50.0. She did have mild leukocytosis with WBC of 13.19 K. Her CMP revealed elevated BUN at 30, creatinine 0.86, ratio 34.9, glucose 179 and elevated alk phos at 130. Her urinalysis was consistent with infection with positive nitrate and +4 bacteria. Chest x-ray negative for acute abnormality. Procalcitonin WNL. Her SARS-CoV-2 was still positive. She received 2 L of IV fluid in ED. Per ED provider on arrival patient was lethargic and not answering questions. During my evaluation after she has had 2 L of IV fluid she was awake, alert and able to answer simple questions. She denied any pain, shortness of breath, nausea, vomiting, abdominal pain. She was asking for food. Staff member was sitting at bedside and she was able to recognize her. There was no reported fever. ROS slightly limited due to patient's history of intellectual disability. Admission Exam Per Admitting Provider Constitutional: WD/WN, vitals as above, NAD, lying in bed, alert, following commands and answering simple questions Head: Normocephalic, Atraumatic Eyes: PERRL, conjunctivae normal, anicteric sclerae ENMT: external ear and nose normal, oropharynx normal Neck: trachea midline, no thyromegaly normal visual inspection Respiratory: normal respiratory effort, lungs clear to auscultation, no wheeze, rales, rhonchi. Normal insp/exp effort, no accessory muscle use Cardiovascular: RRR, no murmur, no edema Vessels: no JVD or carotid bruit Chest: normal inspection of chest Abdomen: normal bowel sounds, soft, nontender, no hepatosplenomegaly Musculoskeletal: no cyanosis or clubbing, AROM x 4 Skin: no rashes, warm and dry normal turgor Neurologic: PERRL, EOMI, accommodation nl, no face palsy, no dysarthria CN's II-XI intact bilaterally and moves all extremities Psychiatric: A+Ox3, euthymic affect Lymphatic: no cervical or axillary lymphadenopathy : deferred Principal Diagnosis Metabolic encephalopathy in the setting of dehydration, UTI and recent diagnosis of COVID-19 infection Acute UTI Asymptomatic COVID-19 infection Discharge Exam GENERAL: Alert and awake. NAD, on RA. Slow to respond/react. HEENT: No pallor, no icterus. Pupils equal, round and reactive to light. Oral mucosa moist. NECK: No JVD, no neck masses. HEART: S1 and S2 heard. Regular rate and rhythm. No murmur, no gallop. RESPIRATORY SYSTEM: Normal AP diameter. No accessory muscle use. No wheezing, no crackles. ABDOMEN: Soft, bowel sounds present, nontender, no distention. CENTRAL NERVOUS SYSTEM: No facial droop. Speech is clear. Obeys simple commands. Moves extremities. EXTREMITIES: No edema, no erythema seen. Discharge Data Allergies Allergy/AdvReac Type Severity Reaction Status Date / Time divalproex sodium Allergy Unknown Unknown Verified 07/02/22 13:11 [From Depakote] salicylates Allergy Unknown Unknown Verified 07/02/22 13:11 valproic acid Allergy Unknown Unknown Verified 07/02/22 13:11 aspirin AdvReac Severe STOMACH Verified 07/02/22 13:11 ULCER BLEEDING Consultations 07/02/22 13:17 ED Decision to Admit Stat Ordered Studies 07/02/22 08:57 CT head/brain wo con Stat Hospital Course (1) Metabolic encephalopathy: (2) UTI (urinary tract infection): (3) SARS-CoV-2 positive: (4) Acute dehydration: Plan This is a 62-year-old female who resides at [facility] and has significant past medical history of history of complex seizure disorder, schizophrenia, depression with anxiety, T2DM, hypertension and mild intellectual disability who presents to ED secondary to lethargy x1 day. Patient was found to have COVID-19 infection and UTI. At baseline patient is independent of ADLs with occasional cueing. She was managed for the following: Metabolic encephalopathy in setting of dehydration, UTI and recent diagnosis of SARS-CoV-2 Acute UTI Present on admission with lethargy UA positive for nitrite and bacteria Urine culture grew E. coli pansensitive Blood culture no growth IV Rocephin to Keflex, continue with Keflex on dc to complete the course. Patient back to her baseline mentation. SARS-CoV-2 positive Testing positive for COVID-19 Asymptomatic currently Does not meet criteria for remdesivir and dexamethasone since patient saturating well on room air Elevated C-reactive protein Continue monitor closely Clinically stable Dehydration Possible related to acute illness such as UTI and COVID 19 in ED patient with evidence of dehydration due to elevated BUN, BUN/creatinine ratio and evidence of hemoconcentration on CBC. ReceivedIV fluid; now stable and baseline PO intake. T2DM Controlled, last A1c 05/26/2022 was 6.4 Continue to hold metformin, Jardiance and glimepiride while inpatient Lantus/NovoLog protocol while inpatient Continue monitor blood sugar Complex seizure disorder No recent seizure activity Phenytoin levels low at 3.4 Keppra level pending Seizure precautions Schizophrenia Depression with anxiety Mild intellectual disability Continue clozapine Hypertension Continue lisinopril with parameters History of constipation Continue MiraLAX and Colace DVT prophylaxis Lovenox 30 mg SQ twice daily CODE STATUS full code Patient being discharged to [facility] home with following instruction at the point of discharge: Follow-up with the primary care physician within 1 week time and likely you will need labs CBC/CMP/magnesium/phosphorus. You will be discharged on antibiotic to complete the course for UTI treatment. Take your medications as prescribed. Home Health Attestation I certify that this patient is under my care and that I, or a physicians dental assistant instructor working with me, had a face to-face encounter that meets the home health [id number] encounter requirements with this patient. The encounter with the patient was in whole, or in part, for the following medical condition, which is the primary reason for home health care (list medical condition): I certify that, based on my findings, the following services are medically necessary home health services: My clinical findings support the need for the above services because: Further, I certify that my clinical findings support that this patient is homebound (i.e. absences from home require considerable and taxing effort and are for medical reasons or spiritism services or infrequently or of short duration when for other reasons) because: Certification for Home Health Services: Based on the above findings, I certify that this patient is confined to the home and needs intermittent long term care, physical therapy and/or speech therapy or continues to need occupational therapy. The patient is under my care, and I have initiated the establishment of the plan of care. This patient will be followed by a physician who will periodically review the plan of care. Total Time Total Time Spent Total Time Spent (In Minutes): 45 Discharge Plan Discharge Items Patient Disposition: Personal Long-Term Reason For Visit: LETHARGY, DEHYDRATION, COVID+ Discharge Diagnosis: Metabolic encephalopathy in the setting of dehydration, UTI and recent diagnosis of COVID-19 infection Acute UTI Asymptomatic COVID-19 infection Activity: Resume your previous activity Non-emergency contact: Primary Care Provider Call non-emergency contact if: you have any medication questions, your symptoms worsen and your temperature is above 101 Follow-up/Referrals: Delmy Jacobsen PA-C [Primary Care Provider] - (Date & Time 07/10/2022 11:00 AM Provider Vitor Esqueda III, MD Department [facility] ) Diet: Carb Consistent or DM2 Addtl Attending Provider Instructions: Follow-up with the primary care physician within 1 week time and likely you will need labs CBC/CMP/magnesium/phosphorus. You will be discharged on antibiotic to complete the course for UTI treatment. Take your medications as prescribed. Pending Studies at Discharge: No Stand-Alone Forms: [employer], Smoking Cessation Skilled Items Patient informed of condition?: Yes DNR: No Discharge Level of Care: Other Communicable Disease: No Discharge Prognosis: Stable Lines: None Urinary Catheter: No Medications and DC Order Prescriptions: New cephalexin 500 mg Capsule 500 mg PO BID 5 Days Qty: 10 0RF Continued levetiracetam 250 mg tablet 250 mg PO BID Qty: 60 3RF fluticasone propionate 50 mcg/actuation spray,suspension 2 sprays INTNAS QAM loratadine [Allergy Relief (loratadine)] 10 mg tablet 10 mg PO QAM famotidine 20 mg tablet 20 mg PO DAILY Rx Instructions: take 1 tab twice a day for 7 days and then once a day. Jardiance 10 mg tablet 10 mg PO DAILY atorvastatin 40 mg tablet 40 mg PO HS oxybutynin chloride 10 mg tablet extended release 24hr 10 mg PO QAM glimepiride 2 mg tablet 2 mg PO QAM metformin 500 mg tablet extended release 24 hr 1,000 mg PO BID lisinopril 2.5 mg tablet 2.5 mg PO HS Women's One Daily 18 mg iron-400 mcg-500 mg Ca Tablet 1 tab PO QAM vitamin B complex Tablet 1 tab PO QAM polyethylene glycol 3350 [Miralax] 17 gram powder in packet 17 gm PO QAM ammonium lactate 12 % cream 1 applic TOPICAL QAM Rx Instructions: Apply to feet. docusate sodium [Colace] 100 mg Capsule 100 mg PO BID clozapine 200 mg tablet 600 mg PO HS phenytoin sodium extended 100 mg capsule 200 mg PO BID triamcinolone acetonide 0.1 % cream 1 applic TOPICAL BID PRN (Reason: Rash) Rx Instructions: apply to right buttocks prn rash valacyclovir 500 mg Tablet 500 mg PO DAILY Discharge Orders: Discharge Order (Routine); Ordered 07/06/22 Ordered By: Benjamin Solis Admission Data Admit Date/Time: 07/02/22 13:46 Attending Provider: Benjamin Solis Admit Provider: Cm Moreland Primary Care Provider: Delmy Jacobsen Other Providers: Cm Moreland
[2022-07-08 00:22] LABS: Clozapine 352 mcg/L; Levetiracetam Keppra < 2.0 mcg/mL (6.0-46.0); Norclozapine 260 mcg/L (25-400)
== END 2022-07-06 14:13 | disposition home or self-care (01) | DRG 689 ==
LOC: ED 08:02 → SUATTDRO 13:46 → 2W 13:46

== ENCOUNTER 2022-09-09 08:11 | Inpatient (IN) ==
[2022-09-09] MEDS ORDERED: CEFEPIME 2,000 MG/20 ML VIAL IV STA (08:31)
[2022-09-09] MEDS ORDERED: SODIUM CHLORIDE 0.9% 1000ML 1,000 ML IV SCH ×2 (08:45→14:00)
--- NOTE | 2022-09-09 08:49 | XRay Report ---
SINGLE VIEW CHEST CLINICAL HISTORY: Sepsis. FINDINGS: An AP, portable, upright chest radiograph is compared to study dated 07/02/2022. The cardiom ediastinal silhouette is unremarkable. Chronic interstitial thickening is similar to previous. There is mild elevation of the left hemidiaphragm and bibasilar atelectasis. No airspace consolidation or l arge pleural effusion is identified. No pneumothorax is seen. The skeletal structures are osteopenic. The bony thorax is grossly intact. IMPRESSION: No active disease in the chest. ACT 112: Negative or not required by law. Electronically signed by: Carlos Savage M.D. 09/09/2022 8:48 AM
--- NOTE | 2022-09-09 08:54 | Emergency Department Note ---
Impression & Plan Altered mental status, History of cellulitis, Failure of outpatient treatment ED Provider Note NAME: ORLANDO LESLIE AGE: 62 SEX: F : 1960 ARRIVES VIA: Ambulance INFORMANT: [Staff worker][ems] ED PROVIDER(S): [Carlos Oneill MD] CHIEF COMPLAINT: Lethargic HISTORY OF PRESENT ILLNESS: The patient is a 62-year-old female who is part of [employer]. She has significant mental disability. She has been on antibiotics, doxycycline, for a right leg cellulitis since the , for about a week now. The redness has improved although, her right fifth toe is still slightly red. Yesterday, she fell which is somewhat unlike her. She did not hit her head. She landed on her buttocks. This morning, the patient was confused, altered and weak. She would not respond at her baseline. She was brought for evaluation. No one has noticed vomiting or diarrhea, no cough or congestion. PMHx/PSHx: See Below SOCIAL HISTORY: See Below. PHYSICAL EXAM: GENERAL: Patient is in no acute distress. HEENT: No acute trauma, normocephalic atraumatic, mucous membranes dry, no nasal congestion. NECK: No stridor, no adenopathy, no meningismus, trachea is midline. LUNGS: Clear to auscultation bilaterally, no wheeze, no rhonchi, breath sounds equal. HEART: Mildly tachycardic, subtle systolic murmur, regular rhythm. ABDOMEN: Soft, nontender, bowel sounds positive, no peritonitis. EXTREMITIES: No cyanosis. There is some mild edema of the right lower extremity when compared to the left. The right fifth toe is somewhat erythematous with a small healing lesion dorsally. There is no significant erythema or warmth to the right leg or foot. NEUROLOGIC: Awake, currently nonverbal, moves all extremities. SKIN: No rash, no jaundice, no diaphoresis. DIFFERENTIAL DIAGNOSIS: Sepsis or bacteremia, intracranial bleeding, stroke, dehydration, electrolyte imbalance, UTI, pneumonia, failed outpatient management, among others. EMERGENCY DEPARTMENT COURSE/PROCEDURES: Prior/Outside records reviewed: EMS notes. ECG per my interpretation: Indication was possible sepsis. The ECG shows a normal sinus rhythm with a rate of 88. There is no ST elevation, no PVCs. There is an incomplete right bundle branch block. QTc is 469. Continuous Cardiac Monitoring per my interpretation: An order was placed for continuous cardiac monitoring. The monitor shows a rate of 86 with normal sinus rhythm. Critical Care Note: I have personally spent 48 minutes of critical care time in the direct management of this patient. This includes bedside care, interpretation of diagnostic studies, and testing, discussion with consultants, patient, and family members, and other required patient management activities. This 48 minutes is in excess of all separately billable procedures. MEDICAL DECISION MAKING: There is no leukocytosis or concerning anemia. There is a normal platelet count. No coagulopathy. No renal failure or significant electrolyte abnormality. Initial lactic acid level was slightly elevated consistent with dehydration and/or infection. Repeat lactic acid level showed normalization. There was no concerning liver enzyme elevation. ECG shows a normal sinus rhythm, no ischemia. Cardiac enzyme testing x1 is not consistent with acute cardiac injury. Procalcitonin level was not not elevated making serious bacterial infection less likely. Urinalysis showed some glucose, no infection. Dilantin level was therapeutic. COVID, influenza and RSV test were negative. Chest film did not show findings of pneumonia per my review. There was no CHF. Brain CT showed no acute bleed or mass effect. On exam, the patient was awake and nonverbal. She did have some erythema to the right fifth toe but by report, the redness to this extremity has markedly improved since being on her antibiotic, doxycycline. The patient received IV saline, 2 L. She received IV cefepime as empiric antibiotic coverage. The patient has remained stable here in the ED. As per the staff with her, her mental state has not improved. They are not comfortable taking her back to their facility. At this point, the cause for the mental status change is unclear. Her infection in the right lower extremity does appear to be improving based on exam and history. No sepsis findings by work-up. I did speak with case management, the on-call hospitalist has been consulted. Observation, further care inpatient is required. DISPOSITION: Patient's presentation and findings warrant a hospital stay and further work-up. 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: No Beliefs That Will Affect Care: None marital status: Single Current Living Situation: Other current occupational status: disabled Feels Safe at Home: Yes Assistive Devices: None Allergies Allergies Allergy/AdvReac Type Severity Reaction Status Date / Time divalproex sodium Allergy Unknown Unknown Verified 08/24/22 14:56 [From Depakote] salicylates Allergy Unknown Unknown Verified 08/24/22 14:56 valproic acid Allergy Unknown Unknown Verified 08/24/22 14:56 aspirin AdvReac Severe STOMACH Verified 08/24/22 14:56 ULCER BLEEDING Home Meds Home Medications Medication Instructions Recorded Confirmed atorvastatin 40 mg tablet 40 mg PO HS 07/17/18 09/09/22 glimepiride 2 mg tablet 2 mg PO QAM 07/17/18 09/09/22 metformin 500 mg tablet,extended 1,000 mg PO BID 07/17/18 09/09/22 release 24 hr multivit-iron 18 mg-folic acid 400 1 tab PO QAM 07/17/18 09/09/22 mcg-calcium 500 mg-minerals tablet (Women's One Daily) oxybutynin chloride 10 mg 10 mg PO QAM 07/17/18 09/09/22 tablet,extended release 24 hr polyethylene glycol 3350 17 gram 17 gm PO QAM 08/25/18 09/09/22 oral powder packet (Miralax) vitamin B complex 1 tab PO QAM 08/25/18 09/09/22 fluticasone propionate 50 2 sprays intranasal QAM 02/15/19 09/09/22 mcg/actuation nasal spray,suspension loratadine 10 mg tablet (Allergy 10 mg PO QAM 02/15/19 09/09/22 Relief (loratadine)) ammonium lactate 12 % topical cream 1 applic topical QAM 05/21/19 09/09/22 docusate sodium 100 mg capsule 100 mg PO BID 05/21/19 09/09/22 (Colace) triamcinolone acetonide 0.1 % 1 applic topical BID PRN Rash 07/10/21 09/09/22 topical cream empagliflozin 10 mg tablet 10 mg PO DAILY 08/25/21 09/09/22 (Jardiance) famotidine 20 mg tablet 20 mg PO DAILY 08/25/21 09/09/22 clozapine 200 mg tablet 600 mg PO HS 10/31/21 09/09/22 valacyclovir 500 mg tablet 500 mg PO DAILY 02/18/22 09/09/22 Previous Rx's Medication Instructions Recorded phenytoin sodium extended 100 mg 300 mg PO BID 90 days #540 caps 08/27/22 capsule (Dilantin Extended) levetiracetam 500 mg tablet 500 mg PO .COMPLEX seizures 90 08/28/22 (Keppra) days #180 tabs Results & Data (ED) Vital Signs Vital Signs - 24 hr 09/09/22 08:17 09/09/22 08:29 09/09/22 08:55 Temperature 36.8 C Temperature Source Oral Pulse Rate 88 88 Pulse Rate [Apical] Pulse Rate from SpO2 Sensor Pulse Rhythm Regular Pulse Strength Normal Respiratory Rate 20 Respiratory Effort / Characteristics Non-Labored Spontaneous Respiratory Depth Normal Respiratory Pattern Regular Blood Pressure 121/74 Blood Pressure [Left Arm] Blood Pressure Mean 89 Blood Pressure Mean [Left Arm] Blood Pressure Position Sitting Pulse Oximetry 98 97 Oxygen Delivery Method Room Air Room Air Sepsis Recent Fever Within 48 Hours No Sepsis New/Unexplained Change in Mental Status No Sepsis Action Taken by Nursing No Action Required 09/09/22 10:01 09/09/22 10:30 09/09/22 11:59 Temperature Temperature Source Pulse Rate 88 88 85 Pulse Rate [Apical] Pulse Rate from SpO2 Sensor 88 88 Pulse Rhythm Pulse Strength Respiratory Rate 19 16 Respiratory Effort / Characteristics Respiratory Depth Respiratory Pattern Blood Pressure 134/74 129/74 Blood Pressure [Left Arm] Blood Pressure Mean 94 92 Blood Pressure Mean [Left Arm] Blood Pressure Position Pulse Oximetry 99 100 Oxygen Delivery Method Sepsis Recent Fever Within 48 Hours Sepsis New/Unexplained Change in Mental Status Sepsis Action Taken by Nursing 09/09/22 12:18 09/09/22 13:09 09/09/22 10:40 Temperature Temperature Source Pulse Rate 85 87 Pulse Rate [Apical] 82 Pulse Rate from SpO2 Sensor 88 Pulse Rhythm Pulse Strength Respiratory Rate 18 18 19 Respiratory Effort / Characteristics Respiratory Depth Respiratory Pattern Blood Pressure Blood Pressure [Left Arm] 134/74 Blood Pressure Mean Blood Pressure Mean [Left Arm] 94 Blood Pressure Position Pulse Oximetry 100 100 100 Oxygen Delivery Method Room Air Sepsis Recent Fever Within 48 Hours Sepsis New/Unexplained Change in Mental Status Sepsis Action Taken by Nursing 09/09/22 10:50 09/09/22 11:00 09/09/22 11:00 Temperature Temperature Source Pulse Rate 86 85 Pulse Rate [Apical] Pulse Rate from SpO2 Sensor 87 85 Pulse Rhythm Pulse Strength Respiratory Rate 17 18 Respiratory Effort / Characteristics Respiratory Depth Respiratory Pattern Blood Pressure 121/68 Blood Pressure [Left Arm] Blood Pressure Mean 85 Blood Pressure Mean [Left Arm] Blood Pressure Position Pulse Oximetry 100 100 Oxygen Delivery Method Sepsis Recent Fever Within 48 Hours Sepsis New/Unexplained Change in Mental Status Sepsis Action Taken by Nursing 09/09/22 11:10 09/09/22 11:20 09/09/22 11:30 Temperature Temperature Source Pulse Rate 86 87 Pulse Rate [Apical] Pulse Rate from SpO2 Sensor 86 88 Pulse Rhythm Pulse Strength Respiratory Rate 17 20 Respiratory Effort / Characteristics Respiratory Depth Respiratory Pattern Blood Pressure 124/68 Blood Pressure [Left Arm] Blood Pressure Mean 86 Blood Pressure Mean [Left Arm] Blood Pressure Position Pulse Oximetry 100 100 Oxygen Delivery Method Sepsis Recent Fever Within 48 Hours Sepsis New/Unexplained Change in Mental Status Sepsis Action Taken by Nursing 09/09/22 11:30 09/09/22 11:40 09/09/22 11:50 Temperature Temperature Source Pulse Rate 85 83 84 Pulse Rate [Apical] Pulse Rate from SpO2 Sensor 85 83 84 Pulse Rhythm Pulse Strength Respiratory Rate 12 12 12 Respiratory Effort / Characteristics Respiratory Depth Respiratory Pattern Blood Pressure Blood Pressure [Left Arm] Blood Pressure Mean Blood Pressure Mean [Left Arm] Blood Pressure Position Pulse Oximetry 100 100 100 Oxygen Delivery Method Sepsis Recent Fever Within 48 Hours Sepsis New/Unexplained Change in Mental Status Sepsis Action Taken by Nursing 09/09/22 12:00 09/09/22 12:00 09/09/22 12:10 Temperature Temperature Source Pulse Rate 82 82 Pulse Rate [Apical] Pulse Rate from SpO2 Sensor 82 83 Pulse Rhythm Pulse Strength Respiratory Rate 12 20 Respiratory Effort / Characteristics Respiratory Depth Respiratory Pattern Blood Pressure 134/74 Blood Pressure [Left Arm] Blood Pressure Mean 94 Blood Pressure Mean [Left Arm] Blood Pressure Position Pulse Oximetry 100 100 Oxygen Delivery Method Sepsis Recent Fever Within 48 Hours Sepsis New/Unexplained Change in Mental Status Sepsis Action Taken by Nursing 09/09/22 12:20 09/09/22 12:30 09/09/22 12:30 Temperature Temperature Source Pulse Rate 81 88 Pulse Rate [Apical] Pulse Rate from SpO2 Sensor 82 87 Pulse Rhythm Pulse Strength Respiratory Rate 13 17 Respiratory Effort / Characteristics Respiratory Depth Respiratory Pattern Blood Pressure 108/67 Blood Pressure [Left Arm] Blood Pressure Mean 80 Blood Pressure Mean [Left Arm] Blood Pressure Position Pulse Oximetry 100 100 Oxygen Delivery Method Sepsis Recent Fever Within 48 Hours Sepsis New/Unexplained Change in Mental Status Sepsis Action Taken by Nursing 09/09/22 12:40 09/09/22 12:50 09/09/22 13:00 Temperature Temperature Source Pulse Rate 83 83 Pulse Rate [Apical] Pulse Rate from SpO2 Sensor 83 83 Pulse Rhythm Pulse Strength Respiratory Rate 8 L 15 Respiratory Effort / Characteristics Respiratory Depth Respiratory Pattern Blood Pressure 131/72 Blood Pressure [Left Arm] Blood Pressure Mean 91 Blood Pressure Mean [Left Arm] Blood Pressure Position Pulse Oximetry 99 100 Oxygen Delivery Method Sepsis Recent Fever Within 48 Hours Sepsis New/Unexplained Change in Mental Status Sepsis Action Taken by Nursing 09/09/22 13:00 09/09/22 13:10 09/09/22 13:20 Temperature Temperature Source Pulse Rate 82 82 84 Pulse Rate [Apical] Pulse Rate from SpO2 Sensor 83 82 87 Pulse Rhythm Pulse Strength Respiratory Rate 14 13 17 Respiratory Effort / Characteristics Respiratory Depth Respiratory Pattern Blood Pressure Blood Pressure [Left Arm] Blood Pressure Mean Blood Pressure Mean [Left Arm] Blood Pressure Position Pulse Oximetry 100 97 100 Oxygen Delivery Method Sepsis Recent Fever Within 48 Hours Sepsis New/Unexplained Change in Mental Status Sepsis Action Taken by Nursing 09/09/22 13:30 09/09/22 13:30 09/09/22 13:40 Temperature Temperature Source Pulse Rate 83 82 Pulse Rate [Apical] Pulse Rate from SpO2 Sensor 82 82 Pulse Rhythm Pulse Strength Respiratory Rate 18 16 Respiratory Effort / Characteristics Respiratory Depth Respiratory Pattern Blood Pressure 121/75 Blood Pressure [Left Arm] Blood Pressure Mean 90 Blood Pressure Mean [Left Arm] Blood Pressure Position Pulse Oximetry 98 97 Oxygen Delivery Method Sepsis Recent Fever Within 48 Hours Sepsis New/Unexplained Change in Mental Status Sepsis Action Taken by Nursing 09/09/22 13:50 09/09/22 14:00 09/09/22 14:00 Temperature Temperature Source Pulse Rate 87 80 Pulse Rate [Apical] Pulse Rate from SpO2 Sensor 87 Pulse Rhythm Pulse Strength Respiratory Rate 19 14 Respiratory Effort / Characteristics Respiratory Depth Respiratory Pattern Blood Pressure 115/69 Blood Pressure [Left Arm] Blood Pressure Mean 84 Blood Pressure Mean [Left Arm] Blood Pressure Position Pulse Oximetry 100 Oxygen Delivery Method Sepsis Recent Fever Within 48 Hours Sepsis New/Unexplained Change in Mental Status Sepsis Action Taken by Nursing 09/09/22 14:10 09/09/22 14:20 09/09/22 14:30 Temperature Temperature Source Pulse Rate 81 79 Pulse Rate [Apical] Pulse Rate from SpO2 Sensor 81 78 Pulse Rhythm Pulse Strength Respiratory Rate 17 15 Respiratory Effort / Characteristics Respiratory Depth Respiratory Pattern Blood Pressure 104/65 Blood Pressure [Left Arm] Blood Pressure Mean 78 Blood Pressure Mean [Left Arm] Blood Pressure Position Pulse Oximetry 100 100 Oxygen Delivery Method Sepsis Recent Fever Within 48 Hours Sepsis New/Unexplained Change in Mental Status Sepsis Action Taken by Nursing 09/09/22 14:30 09/09/22 14:40 09/09/22 14:50 Temperature Temperature Source Pulse Rate 79 78 78 Pulse Rate [Apical] Pulse Rate from SpO2 Sensor 78 78 Pulse Rhythm Pulse Strength Respiratory Rate 15 18 14 Respiratory Effort / Characteristics Respiratory Depth Respiratory Pattern Blood Pressure Blood Pressure [Left Arm] Blood Pressure Mean Blood Pressure Mean [Left Arm] Blood Pressure Position Pulse Oximetry 100 96 Oxygen Delivery Method Sepsis Recent Fever Within 48 Hours Sepsis New/Unexplained Change in Mental Status Sepsis Action Taken by [facility] Medications Current Medication List: was personally reviewed by me Laboratory Data Attestation: I reviewed the patient's lab results. 09/09/22 08:35 09/09/22 08:35 Lab Results 09/09/22 09/09/22 09/09/22 Range/Units 08:35 08:35 08:35 WBC 6.23 (4.8-10.8) K/ul RBC 4.95 (4.20-5.40) M/uL Hgb 15.1 (12.0-16.0) g/dl Hct 44.5 (37.0-47.0) % MCV 89.9 (80.0-100.0) fL MCH 30.5 (25.0-34.0) pg MCHC 33.9 (32.0-36.0) g/dL RDW Std Deviation 48.8 H (36.4-46.3) fL RDW Coeff of Liliana 14.8 H (11.5-14.5) % Plt Count 138 (130-400) K/uL MPV 11.9 (9.4-12.4) fL Immature Gran % (Auto) 0.3 % Neut % (Auto) 74.8 % Lymph % (Auto) 16.7 % [place] % (Auto) 7.9 % Eos % (Auto) 0.0 % Baso % (Auto) 0.3 % Neut # (Auto) 4.66 (1.40-6.50) K/uL Lymph # (Auto) 1.04 L (1.2-3.4) K/uL [place] # (Auto) 0.49 (0.11-0.59) K/uL Eos # (Auto) 0.00 (0-0.50) K/uL Baso # (Auto) 0.02 (0-0.2) K/uL Immature Gran # (Auto) 0.02 (0.01-0.20) K/uL PT 10.6 (9.0-12.0) Seconds INR 1.0 (0.9-1.1) APTT 21.4 (21.0-31.0) Seconds PTT Ratio 0.8 Sodium TNP Potassium TNP Chloride 108 H (98-107) mmol/L Carbon Dioxide 23 (21-32) mmol/L Anion Gap TNP BUN 20 (6-23) mg/dl Creatinine 0.69 (0.6-1.2) mg/dl Est Cr Clr Drug Dosing Not Reportable Est GFR ( Amer) 109.7 ml/min Est GFR (Non-Af Amer) 94.6 ml/min BUN/Creatinine Ratio 29.0 H (10-20) Glucose 147 H (70-99(Fasting)) mg/dl Lactate (0.4-2.0) mmol/L Calcium 8.9 (8.6-10.3) mg/dl Magnesium TNP Total Bilirubin 0.4 (0.2-1.0) mg/dl Direct Bilirubin TNP AST TNP ALT 28 (7-52) U/L Alkaline Phosphatase 107 H (34-104) U/L Troponin I High Sens 2.9 (0-14) pg/ml Total Protein 7.0 (6.0-8.3) gm/dl Albumin 4.2 (3.4-5.0) gm/dl Procalcitonin (0-0.5) ng/ml Urine Color Urine Appearance (Clear) Urine pH (4.5-7.5) Ur Specific [place] (1.000-1.030) Urine Protein (Negative) Urine Glucose (UA) (Negative) Urine Ketones (Negative) Urine Blood (Negative) Urine Nitrite (Negative) Urine Bilirubin (Negative) Urine Urobilinogen (Negative) Ur Leukocyte Esterase (Negative) Phenytoin (10-20) mcg/ml SARS-CoV-2 (PCR) (Negative) Influenza Type A (PCR) (Neg) Influenza Type B (PCR) (Neg) RSV (RT-PCR) (Neg) 09/09/22 09/09/22 09/09/22 Range/Units 08:35 08:40 09:07 WBC (4.8-10.8) K/ul RBC (4.20-5.40) M/uL Hgb (12.0-16.0) g/dl Hct (37.0-47.0) % MCV (80.0-100.0) fL MCH (25.0-34.0) pg MCHC (32.0-36.0) g/dL RDW Std Deviation (36.4-46.3) fL RDW Coeff of Liliana (11.5-14.5) % Plt Count (130-400) K/uL MPV (9.4-12.4) fL Immature Gran % (Auto) % Neut % (Auto) % Lymph % (Auto) % [place] % (Auto) % Eos % (Auto) % Baso % (Auto) % Neut # (Auto) (1.40-6.50) K/uL Lymph # (Auto) (1.2-3.4) K/uL [place] # (Auto) (0.11-0.59) K/uL Eos # (Auto) (0-0.50) K/uL Baso # (Auto) (0-0.2) K/uL Immature Gran # (Auto) (0.01-0.20) K/uL PT (9.0-12.0) Seconds INR (0.9-1.1) APTT (21.0-31.0) Seconds PTT Ratio Sodium Potassium Chloride (98-107) mmol/L Carbon Dioxide (21-32) mmol/L Anion Gap BUN (6-23) mg/dl Creatinine (0.6-1.2) mg/dl Est Cr Clr Drug Dosing Est GFR ( Amer) ml/min Est GFR (Non-Af Amer) ml/min BUN/Creatinine Ratio (10-20) Glucose (70-99(Fasting)) mg/dl Lactate 2.3 H* (0.4-2.0) mmol/L Calcium (8.6-10.3) mg/dl Magnesium Total Bilirubin (0.2-1.0) mg/dl Direct Bilirubin AST ALT (7-52) U/L Alkaline Phosphatase (34-104) U/L Troponin I High Sens (0-14) pg/ml Total Protein (6.0-8.3) gm/dl Albumin (3.4-5.0) gm/dl Procalcitonin < 0.05 (0-0.5) ng/ml Urine Color Urine Appearance (Clear) Urine pH (4.5-7.5) Ur Specific [place] (1.000-1.030) Urine Protein (Negative) Urine Glucose (UA) (Negative) Urine Ketones (Negative) Urine Blood (Negative) Urine Nitrite (Negative) Urine Bilirubin (Negative) Urine Urobilinogen (Negative) Ur Leukocyte Esterase (Negative) Phenytoin (10-20) mcg/ml SARS-CoV-2 (PCR) NEGATIVE (Negative) Influenza Type A (PCR) Negative (Neg) Influenza Type B (PCR) Negative (Neg) RSV (RT-PCR) Negative (Neg) 09/09/22 09/09/22 09/09/22 Range/Units 10:00 10:08 11:06 WBC (4.8-10.8) K/ul RBC (4.20-5.40) M/uL Hgb (12.0-16.0) g/dl Hct (37.0-47.0) % MCV (80.0-100.0) fL MCH (25.0-34.0) pg MCHC (32.0-36.0) g/dL RDW Std Deviation (36.4-46.3) fL RDW Coeff of Liliana (11.5-14.5) % Plt Count (130-400) K/uL MPV (9.4-12.4) fL Immature Gran % (Auto) % Neut % (Auto) % Lymph % (Auto) % [place] % (Auto) % Eos % (Auto) % Baso % (Auto) % Neut # (Auto) (1.40-6.50) K/uL Lymph # (Auto) (1.2-3.4) K/uL [place] # (Auto) (0.11-0.59) K/uL Eos # (Auto) (0-0.50) K/uL Baso # (Auto) (0-0.2) K/uL Immature Gran # (Auto) (0.01-0.20) K/uL PT (9.0-12.0) Seconds INR (0.9-1.1) APTT (21.0-31.0) Seconds PTT Ratio Sodium 143 Potassium 4.3 Chloride (98-107) mmol/L Carbon Dioxide (21-32) mmol/L Anion Gap BUN (6-23) mg/dl Creatinine (0.6-1.2) mg/dl Est Cr Clr Drug Dosing Est GFR ( Amer) ml/min Est GFR (Non-Af Amer) ml/min BUN/Creatinine Ratio (10-20) Glucose (70-99(Fasting)) mg/dl Lactate 1.9 (0.4-2.0) mmol/L Calcium (8.6-10.3) mg/dl Magnesium 2.0 Total Bilirubin (0.2-1.0) mg/dl Direct Bilirubin 0.0 AST 19 ALT (7-52) U/L Alkaline Phosphatase (34-104) U/L Troponin I High Sens (0-14) pg/ml Total Protein (6.0-8.3) gm/dl Albumin (3.4-5.0) gm/dl Procalcitonin (0-0.5) ng/ml Urine Color Yellow Urine Appearance Clear (Clear) Urine pH 6.0 (4.5-7.5) Ur Specific [place] 1.012 (1.000-1.030) Urine Protein Negative (Negative) Urine Glucose (UA) 3+ H (Negative) Urine Ketones Negative (Negative) Urine Blood Negative (Negative) Urine Nitrite Negative (Negative) Urine Bilirubin Negative (Negative) Urine Urobilinogen Negative (Negative) Ur Leukocyte Esterase Negative (Negative) Phenytoin (10-20) mcg/ml SARS-CoV-2 (PCR) (Negative) Influenza Type A (PCR) (Neg) Influenza Type B (PCR) (Neg) RSV (RT-PCR) (Neg) 09/09/22 Range/Units 11:06 WBC (4.8-10.8) K/ul RBC (4.20-5.40) M/uL Hgb (12.0-16.0) g/dl Hct (37.0-47.0) % MCV (80.0-100.0) fL MCH (25.0-34.0) pg MCHC (32.0-36.0) g/dL RDW Std Deviation (36.4-46.3) fL RDW Coeff of Liliana (11.5-14.5) % Plt Count (130-400) K/uL MPV (9.4-12.4) fL Immature Gran % (Auto) % Neut % (Auto) % Lymph % (Auto) % [place] % (Auto) % Eos % (Auto) % Baso % (Auto) % Neut # (Auto) (1.40-6.50) K/uL Lymph # (Auto) (1.2-3.4) K/uL [place] # (Auto) (0.11-0.59) K/uL Eos # (Auto) (0-0.50) K/uL Baso # (Auto) (0-0.2) K/uL Immature Gran # (Auto) (0.01-0.20) K/uL PT (9.0-12.0) Seconds INR (0.9-1.1) APTT (21.0-31.0) Seconds PTT Ratio Sodium Potassium Chloride (98-107) mmol/L Carbon Dioxide (21-32) mmol/L Anion Gap BUN (6-23) mg/dl Creatinine (0.6-1.2) mg/dl Est Cr Clr Drug Dosing Est GFR ( Amer) ml/min Est GFR (Non-Af Amer) ml/min BUN/Creatinine Ratio (10-20) Glucose (70-99(Fasting)) mg/dl Lactate (0.4-2.0) mmol/L Calcium (8.6-10.3) mg/dl Magnesium Total Bilirubin (0.2-1.0) mg/dl Direct Bilirubin AST ALT (7-52) U/L Alkaline Phosphatase (34-104) U/L Troponin I High Sens (0-14) pg/ml Total Protein (6.0-8.3) gm/dl Albumin (3.4-5.0) gm/dl Procalcitonin (0-0.5) ng/ml Urine Color Urine Appearance (Clear) Urine pH (4.5-7.5) Ur Specific [place] (1.000-1.030) Urine Protein (Negative) Urine Glucose (UA) (Negative) Urine Ketones (Negative) Urine Blood (Negative) Urine Nitrite (Negative) Urine Bilirubin (Negative) Urine Urobilinogen (Negative) Ur Leukocyte Esterase (Negative) Phenytoin 12.6 (10-20) mcg/ml SARS-CoV-2 (PCR) (Negative) Influenza Type A (PCR) (Neg) Influenza Type B (PCR) (Neg) RSV (RT-PCR) (Neg) Administered Medications Sodium Chloride (Nss 1000ml) 1,000 mls @ 80 mls/hr IV .[id number] DELMI Stop: 09/10/22 02:29 Last Admin: 09/09/22 14:41 Dose: 80 mls/hr Documented By: PAULETTE Doxycycline Hyclate 100 mg/ (Dextrose) 110 mls @ 50 mls/hr IV Q12H DELMI Stop: 09/12/22 14:29 Last Admin: 09/09/22 14:41 Dose: 50 mls/hr Documented By: PAULETTE Discontinued Medications Cefepime HCl (Maxipime) 2,000 mg in 20 mls @ 5 mls/min IV NOW STA; Protocol Stop: 09/09/22 08:34 Last Admin: 09/09/22 08:40 Dose: 5 mls/min Documented By: SOLANGE Sodium Chloride (Nss 1000ml) 1,000 mls @ 999 mls/hr IV .Q1H1M DELMI Stop: 09/09/22 09:45 Last Infusion: 09/09/22 09:41 Dose: 0 mls/hr Documented By: Admin: 09/09/22 08:40 Dose: 999 mls/hr Documented By: SOLANGE Sodium Chloride (Nss 1000ml) 1,000 mls @ 999 mls/hr IV .Q1H1M ONE Stop: 09/09/22 11:22 Last Admin: 09/09/22 10:38 Dose: 999 mls/hr Documented By: MNE Ceftriaxone Sodium (Rocephin) 2,000 mg in 70 mls @ 140 mls/hr IV NOW STA Stop: 09/09/22 14:28 Last Admin: 09/09/22 14:41 Dose: 140 mls/hr Documented By: KV Imaging Data Radiologist's Impression: Chest X-Ray 09/09/22 08:31 SINGLE VIEW CHEST CLINICAL HISTORY: Sepsis. FINDINGS: An AP, portable, upright chest radiograph is compared to study dated 07/02/2022. The cardiomediastinal silhouette is unremarkable. Chronic interstitial thickening is similar to previous. There is mild elevation of the left hemidiaphragm and bibasilar atelectasis. No airspace consolidation or large pleural effusion is identified. No pneumothorax is seen. The skeletal structures are osteopenic. The bony thorax is grossly intact. IMPRESSION: No active disease in the chest. ACT 112: Negative or not required by law. Electronically signed by: Carlos Savage M.D. 09/09/2022 8:[address] 09/09/22 08:31 CT SCAN OF THE BRAIN WITHOUT IV CONTRAST CLINICAL HISTORY: Lethargy COMPARISON STUDY: CT of the brain dated 07/02/2022. TECHNIQUE: Unenhanced axial CT scan of the brain is performed from the vertex to the skull base. A dose lowering technique was utilized adhering to the principles of ALARA. CT DOSE: 614.27 mGy.cm FINDINGS: Brain parenchyma: There is age-related involutional change noting mild subcortical and periventricular microangiopathic disease. There is no hemorrhage, mass effect, or evidence of acute territorial ischemia by CT criteria. Fernandez-white matter differentiation is preserved. No extra-axial fluid collection is seen. Ventricles, sulci, cisterns: Prominent secondary to involutional change. Ventriculomegaly is similar to previous. Intracranial vasculature: There is atherosclerotic calcification of the cavernous carotid arteries. Calvarium: Unremarkable. Sinuses and mastoids: There is mild mucosal thickening in the left maxillary antrum. The remaining visualized paranasal sinuses are clear. The mastoid air cells are well pneumatized. Orbits: The bony orbits are grossly intact. IMPRESSION: 1. There is no hemorrhage, mass effect, or evidence of acute territorial ischemia by CT criteria. 2. Ventriculomegaly is unchanged. ACT 112: Negative or not required by law. Electronically signed by: Carlos Savage M.D. 09/09/2022 9:09 AM Discharge Plan Visit Data Chief Complaint: Lethargic ED Provider: Carlos Oneill Discharge Problem: Altered mental status, History of cellulitis, Failure of outpatient treatment Patient Disposition: Admitted As Inpatient Condition: Good Forms Stand Alone Forms: My [facility] Prescriptions Prescriptions: No Action phenytoin sodium extended [Dilantin Extended] 100 mg capsule 300 mg PO BID 90 Days Qty: 540 2RF levetiracetam [Keppra] 500 mg tablet 500 mg PO .COMPLEX 90 Days Qty: 180 2RF Rx Instructions: take 1/2 tab ( 250 mg) in am and 1 tab ( 500 mg) in pm fluticasone propionate 50 mcg/actuation spray,suspension 2 sprays INTNAS QAM loratadine [Allergy Relief (loratadine)] 10 mg tablet 10 mg PO QAM famotidine 20 mg tablet 20 mg PO DAILY Rx Instructions: take 1 tab twice a day for 7 days and then once a day. Jardiance 10 mg tablet 10 mg PO DAILY atorvastatin 40 mg tablet 40 mg PO HS oxybutynin chloride 10 mg tablet extended release 24hr 10 mg PO QAM glimepiride 2 mg tablet 2 mg PO QAM metformin 500 mg tablet extended release 24 hr 1,000 mg PO BID Women's One Daily 18 mg iron-400 mcg-500 mg Ca Tablet 1 tab PO QAM vitamin B complex Tablet 1 tab PO QAM polyethylene glycol 3350 [Miralax] 17 gram powder in packet 17 gm PO QAM ammonium lactate 12 % cream 1 applic TOPICAL QAM Rx Instructions: Apply to feet. docusate sodium [Colace] 100 mg Capsule 100 mg PO BID clozapine 200 mg tablet 600 mg PO HS triamcinolone acetonide 0.1 % cream 1 applic TOPICAL BID PRN (Reason: Rash) Rx Instructions: apply to right buttocks prn rash valacyclovir 500 mg Tablet 500 mg PO DAILY Referrals Referrals: Delmy Jacobsen PA-C [Primary Care Provider] -
[2022-09-09 09:02] LABS: Basophils # (auto) 0.02 K/uL (0-0.2); Basophils % (auto) 0.3 %; Hematocrit (blood only) 44.5 % (37.0-47.0); Hemoglobin 15.1 g/dl (12.0-16.0); Immature Granulocytes # (auto) 0.02 K/uL (0.01-0.20); Immature Granulocytes % (auto) 0.3 %; Lymphocytes # (auto) 1.04 K/uL (1.2-3.4); Lymphocytes % (auto) 16.7 %; Mean Corpuscular Hemoglobin 30.5 pg (25.0-34.0); Mean Corpuscular Hgb Conc 33.9 g/dL (32.0-36.0); Mean Corpuscular Volume 89.9 fL (80.0-100.0); Mean Platelet Volume 11.9 fL (9.4-12.4); Monocytes # (auto) 0.49 K/uL (0.11-0.59); Monocytes % (auto) 7.9 %; Neutrophils # (auto) 4.66 K/uL (1.40-6.50); Neutrophils % (auto) 74.8 %; Platelet Count 138 K/uL (130-400); RDW Coefficient of Variation 14.8 % (11.5-14.5); RDW Standard Deviation 48.8 fL (36.4-46.3); Red Blood Count 4.95 M/uL (4.20-5.40); White Blood Count 6.23 K/ul (4.8-10.8)
--- NOTE | 2022-09-09 09:11 | CT Scan Report ---
CT SCAN OF THE BRAIN WITHOUT IV CONTRAST CLINICAL HISTORY: Lethargy COMPARISON STUDY: CT of the brain dated 07/02/2022. TECHNIQUE: Unenhanced axial CT scan of the brain is performed from the vertex to the skull base. A do se lowering technique was utilized adhering to the principles of ALARA. CT DOSE: 614.27 mGy.cm FINDINGS: Brain parenchyma: There is age-related involutional change noting mild subcortical and periventricula r microangiopathic disease. There is no hemorrhage, mass effect, or evidence of acute territorial isc hemia by CT criteria. Fernandez-white matter differentiation is preserved. No extra-axial fluid collection is seen. Ventricles, sulci, cisterns: Prominent secondary to involutional change. Ventriculomegaly is similar to previous. Intracranial vasculature: There is atherosclerotic calcification of the cavernous carotid arteries. Calvarium: Unremarkable. Sinuses and mastoids: There is mild mucosal thickening in the left maxillary antrum. The remaining vi sualized paranasal sinuses are clear. The mastoid air cells are well pneumatized. Orbits: The bony orbits are grossly intact. IMPRESSION: 1. There is no hemorrhage, mass effect, or evidence of acute territorial ischemia by CT criteria. 2. Ventriculomegaly is unchanged. ACT 112: Negative or not required by law. Electronically signed by: Carlos Savage M.D. 09/09/2022 9:09 AM
[2022-09-09 09:25] LABS: Partial Thromboplastin Ratio 0.8; Partial Thromboplastin Time 21.4 Seconds (21.0-31.0); Prothrombin Time 10.6 Seconds (9.0-12.0)
[2022-09-09 09:35] LABS: Influenza A virus by PCR Negative (Neg); Influenza B virus by PCR Negative (Neg); RSV by PCR Negative (Neg); SARS CoV2 RNA(COVID-19) Ceph NEGATIVE (Negative)
[2022-09-09 09:42] LABS: Alanine Aminotransferase 28 U/L (7-52); Albumin Level 4.2 gm/dl (3.4-5.0); Alkaline Phosphatase 107 U/L (34-104); Bilirubin,Total 0.4 mg/dl (0.2-1.0); Blood Urea Nitrogen 20 mg/dl (6-23); Calcium 8.9 mg/dl (8.6-10.3); Carbon Dioxide 23 mmol/L (21-32); Chloride 108 mmol/L (98-107); Est GFR (African American) 109.7 ml/min; Est GFR (Non-African American) 94.6 ml/min; Glucose 147 mg/dl (70-99(Fasting)); Troponin I High Sensitivity 2.9 pg/ml (0-14)
[2022-09-09 10:18] LABS: Appearance Urine Clear (Clear); Bilirubin Urine Negative (Negative); Blood Urine Negative (Negative); Color Urine Yellow; Glucose Urine UA 3+ (Negative); Ketones Urine Negative (Negative); Leukocyte Esterase Urine Negative (Negative); Nitrite Urine Negative (Negative); Protein Urine Negative (Negative); Specific Gravity Urine 1.012 (1.000-1.030); Urobilinogen Urine Negative (Negative)
[2022-09-09] MEDS ORDERED: SODIUM CHLORIDE 0.9% 1000ML 1,000 ML IV ONE (10:22)
[2022-09-09 11:00] LABS: Potassium 4.3 mmol/L (3.5-5.1)
[2022-09-09] MEDS ORDERED: MAGNESIUM HYDROXIDE SUSP 30 ML UDC PO PRN (13:09)
[2022-09-09] MEDS ORDERED: ACETAMINOPHEN 325 MG TAB PO PRN (13:09)
[2022-09-09] MEDS ORDERED: POLYETHYLENE (MIRALAX) 17 GM PACK PO PRN (13:09)
[2022-09-09] MEDS ORDERED: ONDANSETRON INJ 2 MG/ML 2 ML VIAL IV PRN (13:09)
[2022-09-09] MEDS ORDERED: ALUMINUM/MAGNESIUM SUSP 30 ML UDC PO PRN (13:09)
--- NOTE | 2022-09-09 13:18 | History & Physical Report ---
Date of Service September 09, 2022 Assessment & Plan (1) Generalized weakness: (2) AMS (altered mental status): (3) Diabetes mellitus type 2 in nonobese: (4) Complex partial seizure: (5) Hypertension: (6) Diabetes: Plan 62-year-old presents to the ED with AMS. Patient with history of complex partial seizure and recent dose changes per outpatient neurology. Does not appear toxic. Initial lactate elevated 2.3; down to 1.9 s/p fluid resuscitation. Recent weight 10# weight loss over past month. Currently being tx for r foot cellulitis on Doxy until 09/12. Additional PMH NIDDM2, known heart murmur, schizophrenia with auditory hallucinations, and HLD. Head CT and CXR negative. N oted dose changes with Keppra recently. Dilantin levels normal. Will obtain MRI and EEG as patient noted to be slower to respond. AMS: H/O Complex Partial seizure: Follows with Dr. Marshall Last known seizure 2010; stable Head CT negative Takes Dilantin and Keppra Dilantin level 12.6; continue Dilantin Keppra level ordered; Recent dose increase from 500 mg daily to 750 mg daily on Swallowing ok Will obtain brain MRI and EEG to r/o seizures seizure and aspiration precautions Consult neuro once results are back AMS: R foot cellulitis: Improving On PO Doxy until 09/12 Received Cefepime x1 in ED. Will do Rocephin IV daily and continue PO Doxy Blood cultures ordered Schizophrenia with auditory hallucinations: Follows with psychiatry Dr. Oneill Has a refocusing word that she says: 'flutterbutz' to remind her of reality. Takes Clozapine 200 mg PO TID; hold and reassess in AM Consider psych consult if seizure imaging negative DM2: No Hyper/Hypoglycemia Takes Metformin and Jardiance; Will switch to SSI FSBS ACHS while here GERD: Takes Famotidine; cotninue Disposition: PCP: Code Status: Code Status. Father is POA VTE Prophylaxis: Lovenox SQ I spent a total of 88 minutes coordinating, documenting, and providing care for this patient excluding time spent in the performance of separately billed services. All of the aforementioned completed while collaborating with the assigned attending physician for a full treatment plan. Please see their addendum for further details. History of Present Illness Chief Complaint: AMS Primary Care Provider: Delmy Jacobsen PA-C Ms. Oneill is a 62 year old That presented to the [facility] today with her caregiver from [facility] where she is a permanent resident. Patient has reportedly been slower to respond over the past day and this morning was unarousable per staff. Patient was taken out by CPS yesterday and started to have some shaking followed by a fall for which staff witnessed and reported she fell on her bottom; did not hit her head. Since then she has been slow to respond and more lethargic. Reported weight loss > 10 pounds over past month. Patient with history of complex partial seizure and recent dose changes per outpatient neurology. Does not appear toxic. Initial lactate elevated 2.3; down to 1.9 s/p fluid resuscitation. Recent weight 10# weight loss over past month. Currently being tx for r foot cellulitis on Doxy until 09/12. Additional PMH NIDDM2, known heart murmur, schizophrenia with auditory hallucinations, and HLD. Head CT and CXR negative. Noted dose changes with Keppra recently. Dilantin levels normal. Will obtain MRI and EEG as patient noted to be slower to respond. Pt. follows with Dr. Marshall with Neurology. Last appt 08/24. She was complaining of abdominal distention in May and went to her first GI appointment on 09/08 for which she was diagnosed with esophageal dysphagia and was reportedly to have an EGD over the next month or so. Otherwise, those symptoms had shown improvement. Patient has a past medical history of partial seizures, schizophrenia, diabetes mellitus type 2, depression, known heart murmur, and HLD. On exam, patient is awake, opens her eyes and does answer simple questions with one or two word answers. She does follow commands appropriately. Per caregivers she is able to answer questions appropriately however slowly. At baseline she is able to perform all ADLs independently and does not require any assistive devices for ambulation. Patient will be admitted for further evaluation and management. Please see A/P for further details. Allergies Allergy/AdvReac Type Severity Reaction Status Date / Time divalproex sodium Allergy Unknown Unknown Verified 08/24/22 14:56 [From Depakote] salicylates Allergy Unknown Unknown Verified 08/24/22 14:56 valproic acid Allergy Unknown Unknown Verified 08/24/22 14:56 aspirin AdvReac Severe STOMACH Verified 08/24/22 14:56 ULCER BLEEDING Home Medications Medication Instructions Recorded Confirmed Type atorvastatin 40 mg tablet 40 mg PO HS 07/17/18 09/09/22 History glimepiride 2 mg tablet 2 mg PO QAM 07/17/18 09/09/22 History metformin 500 mg tablet,extended 1,000 mg PO BID 07/17/18 09/09/22 History release 24 hr multivit-iron 18 mg-folic acid 400 1 tab PO QAM 07/17/18 09/09/22 History mcg-calcium 500 mg-minerals tablet (Women's One Daily) oxybutynin chloride 10 mg 10 mg PO QAM 07/17/18 09/09/22 History tablet,extended release 24 hr polyethylene glycol 3350 17 gram 17 gm PO QAM 08/25/18 09/09/22 History oral powder packet (Miralax) vitamin B complex 1 tab PO QAM 08/25/18 09/09/22 History fluticasone propionate 50 2 sprays intranasal QA 02/15/19 09/09/22 History mcg/actuation nasal spray,suspension loratadine 10 mg tablet (Allergy 10 mg PO QAM 02/15/19 09/09/22 History Relief (loratadine)) ammonium lactate 12 % topical cream 1 applic topical QAM 05/21/19 09/09/22 History docusate sodium 100 mg capsule 100 mg PO BID 05/21/19 09/09/22 History (Colace) triamcinolone acetonide 0.1 % 1 applic topical BID PRN Rash 07/10/21 09/09/22 History topical cream empagliflozin 10 mg tablet 10 mg PO DAILY 08/25/21 09/09/22 History (Jardiance) famotidine 20 mg tablet 20 mg PO DAILY 08/25/21 09/09/22 History clozapine 200 mg tablet 600 mg PO HS 10/31/21 09/09/22 History valacyclovir 500 mg tablet 500 mg PO DAILY 02/18/22 09/09/22 History phenytoin sodium extended 100 mg 300 mg PO BID 90 days #540 caps 08/27/22 09/09/22 Rx capsule (Dilantin Extended) levetiracetam 500 mg tablet 500 mg PO .COMPLEX seizures 90 08/28/22 09/09/22 Rx (Keppra) days #180 tabs Past Med/Surg History Medical History Complex partial seizure Depression Depression with anxiety Diabetes Heart murmur Hypertension Onychomycosis Schizophrenia Surgical History History of colonoscopy Family History Mother Diabetes Other Seizures Social History Smoking Status: Unknown if ever smoked Hx Alcohol Use: No Hx Substance Use: No Preferred Language: Georgian Communication Ability: Impaired Visual Impairment: No Limitations Hearing Ability: Normal Test Puller Required: No Beliefs That Will Affect Care: None marital status: Single Current Living Situation: Other current occupational status: disabled Feels Safe at Home: Yes Assistive Devices: None Review of Systems Review of Systems: Unobtainable due to mental health condition Physical Exam Physical Exam: Neuro: AAOx4, PERRLA, no aphagia, memory changes, CNII-XII grossly intact HEENT: head normocephalic, moist mucus membranes CV: S1/S2, (-) M/G/R, (-) edema, cap refill < 3 seconds Resp: Lungs CTA in all rios. On RA GI: Abdomen S/NT/ND, Ax4 bowel sounds, (-) CVA tenderness Musculoskeletal: 5/5 B/L UE strength, 5/5 B/L LE strength. No gait disturbance Skin: (-) rashes , (-) erythema. Psych: euthymic mood Results & Data Results & Data Vital Signs (Past 12 Hours) Vital Signs Temp Pulse Pulse Resp BP BP Pulse Ox 09/09/22 12:18 82 18 134/74 100 09/09/22 11:59 85 09/09/22 10:30 88 16 129/74 100 09/09/22 10:01 88 19 134/74 99 09/09/22 08:55 97 09/09/22 08:29 88 09/09/22 08:17 36.8 C 88 20 121/74 98 O2 Del Method 09/09/22 12:18 Room Air 09/09/22 11:59 09/09/22 10:30 09/09/22 10:01 09/09/22 08:55 Room Air 09/09/22 08:29 09/09/22 08:17 Room Air Laboratory Results Short CBC 09/09/22 Range/Units 08:35 WBC 6.23 (4.8-10.8) K/ul Hgb 15.1 (12.0-16.0) g/dl Hct 44.5 (37.0-47.0) % Plt Count 138 (130-400) K/uL BMP 09/09/22 09/09/22 08:35 10:08 Sodium TNP 143 Potassium TNP 4.3 Chloride 108 H Carbon Dioxide 23 BUN 20 Creatinine 0.69 Glucose 147 H Calcium 8.9 Liver Function 09/09/22 09/09/22 Range/Units 08:35 10:08 Total Bilirubin 0.4 (0.2-1.0) mg/dl Direct Bilirubin TNP 0.0 AST TNP 19 ALT 28 (7-52) U/L Alkaline Phosphatase 107 H (34-104) U/L Albumin 4.2 (3.4-5.0) gm/dl Urine 09/09/22 Range/Units 10:00 Urine Color Yellow Urine Appearance Clear (Clear) Urine pH 6.0 (4.5-7.5) Ur Specific Thomas 1.012 (1.000-1.030) Urine Protein Negative (Negative) Urine Glucose (UA) 3+ H (Negative) Diagnostic Findings Chest X-Ray 09/09/22 08:31 SINGLE VIEW CHEST CLINICAL HISTORY: Sepsis. FINDINGS: An AP, portable, upright chest radiograph is compared to study dated 07/02/2022. The cardiomediastinal silhouette is unremarkable. Chronic interstitial thickening is similar to previous. There is mild elevation of the left hemidiaphragm and bibasilar atelectasis. No airspace consolidation or large pleural effusion is identified. No pneumothorax is seen. The skeletal structures are osteopenic. The bony thorax is grossly intact. IMPRESSION: No active disease in the chest. ACT 112: Negative or not required by law. Electronically signed by: Carlos Savage M.D. 09/09/2022 8:[address] 09/09/22 08:31 CT SCAN OF THE BRAIN WITHOUT IV CONTRAST CLINICAL HISTORY: Lethargy COMPARISON STUDY: CT of the brain dated 07/02/2022. TECHNIQUE: Unenhanced axial CT scan of the brain is performed from the vertex to the skull base. A dose lowering technique was utilized adhering to the principles of ALARA. CT DOSE: 614.27 mGy.cm FINDINGS: Brain parenchyma: There is age-related involutional change noting mild subcortical and periventricular microangiopathic disease. There is no hemorrhage, mass effect, or evidence of acute territorial ischemia by CT criteria. Fernandez-white matter differentiation is preserved. No extra-axial fluid collection is seen. Ventricles, sulci, cisterns: Prominent secondary to involutional change. Ventriculomegaly is similar to previous. Intracranial vasculature: There is atherosclerotic calcification of the cavernous carotid arteries. Calvarium: Unremarkable. Sinuses and mastoids: There is mild mucosal thickening in the left maxillary antrum. The remaining visualized paranasal sinuses are clear. The mastoid air cells are well pneumatized. Orbits: The bony orbits are grossly intact. IMPRESSION: 1. There is no hemorrhage, mass effect, or evidence of acute territorial ischemia by CT criteria. 2. Ventriculomegaly is unchanged. ACT 112: Negative or not required by law. Electronically signed by: Carlos Savage M.D. 09/09/2022 9:09 AM Code Status & VTE Plan Code Status Full Code in the event of cardiac or respiratory arrest VTE Prophylaxis Plan VTE Prophylaxis will be ordered: Yes Supervising Physician Co-Signing Physician Notes Patient is a 62-year-old female with multiple comorbidities presents with history of change in mental status. Patient is a poor historian and slow to respond at baseline. Most of the history is obtained from patient's records, ER staff and creative writing professor at bedside. Patient has ongoing hallucinations as per creative writing professor. Staff noticed patient to be slower to respond more than her baseline and was lethargic for about 1 day duration. She has been currently treated with oral antibiotics for right lower extremity cellulitis with doxycycline. She is independent usually at baseline. She lost more than 10 pounds over a month despite normal appetite as per staff. She was recently increased on her antiseizure medications by her neurologist. Please review HPI for complete details of presentation. No known history of fall. I personally reviewed imaging studies, blood work and EKG. CT head showed no acute intracranial findings. Phenytoin levels within normal range. Levetiracetam levels pending. Lactate levels improved with IV fluids. Urine analysis not suggestive of UTI. Mental status much improved while in ED as per patient's creative writing professor. On exam patient is moderately built and nourished, no apparent distress, normocephalic atraumatic, EOMI, normal breath sounds, clear to auscultation, S1-S2, no murmur, right lower extremity mildly erythematous, trace edema , alert, awake, oriented x2, follows simple commands, grossly no focal deficits, slow to respond to questions. Patient is admitted for management of altered mental status ? Multifactorial secondary to infection, clozapine, seizure. Will obtain MRI, EEG. We will continue current antiseizure medications and follow-up Keppra levels. Consider neurology evaluation if needed. Hold clozapine for now. Consider psychiatry evaluation if needed. We will continue doxycycline and add Rocephin for right lower extremity cellulitis treatment. Hold p.o. medications for diabetes and utilize insulin while hospitalized for management of diabetes mellitus. I personally reviewed the record. Patient is interviewed and examined at bedside. Patient's care is coordinated with Nilsa HILL. Please refer to the documentation above for details of patient's presentation and for discussion of other issues.
[2022-09-09] MEDS ORDERED: cefTRIAXone SODIUM 2,000 MG/70 ML BAG IV STA (13:59)
[2022-09-09] MEDS ORDERED: levETIRAcetam 500 MG TAB PO SCH (14:15)
[2022-09-09] MEDS ORDERED: DOXYCYCLINE HYCLATE 100 MG in DEXTROSE 5% 100 ML IV SCH (14:30)
[2022-09-09] MEDS ORDERED: GADOBUTROL 65ML VIAL IV ONE (16:30)
[2022-09-09] MEDS ORDERED: GLUCOSE 40% GEL 15 GM TUBE PO PRN ×2 (16:46→17:04)
[2022-09-09] MEDS ORDERED: GLUCAGON FOR INJ 1 MG VIAL SQ PRN ×2 (16:46→17:04)
[2022-09-09] MEDS ORDERED: CARBOHYDRATES FOR HYPOGLYCEMIA PO PRN ×2 (16:46→17:04)
[2022-09-09] MEDS ORDERED: GLUCOSE 10 TAB/TUBE PO PRN ×2 (16:46→17:04)
[2022-09-09] MEDS ORDERED: DEXTROSE 50% 50 ML SYRINGE IV PRN ×2 (16:46→17:04)
--- NOTE | 2022-09-09 16:48 | Electrocardiogram Report ---
Test Reason : Blood Pressure : / mmHG Vent. Rate : 088 BPM Atrial Rate : 088 BPM P-R Int : 140 ms QRS Dur : 092 ms QT Int : 388 ms P-R-T Axes : 057 -41 040 degrees QTc Int : 469 ms Normal sinus rhythm Left axis deviation Incomplete right bundle branch block Abnormal ECG When compared with ECG of 02-JUL-2022 08:12, Incomplete right bundle branch block is now Present Confirmed by Nayan Galarza ([id number]) on 09/09/2022 4:48:40 PM Referred By: REFERRED SELF Confirmed By:Nayan Galarza
--- NOTE | 2022-09-09 16:53 | Magnetic Resonance Report ---
Brain MRI WITH AND WITHOUT CONTRAST HISTORY: Altered mental status/HO Seizure TECHNIQUE: Multiplanar multisequence MRI of the brain was performed both before and after the intrave nous administration of contrast. COMPARISON STUDY: Head CT 09/09/2022. Brain MRI 07/20/2019. FINDINGS: No areas restricted diffusion to suggest acute infarction. The midline structures are intac t. Mild mucosal thickening within the ethmoid air cells and left maxillary sinus. The mastoid air priyank ls are clear. The major vascular flow-voids at the skull base are well-maintained. There is no mass, hematoma, or midline shift. The orbits are unremarkable. Moderate ventriculomegaly is not significant ly changed. Scattered foci of T2 hyperintensity seen within the periventricular and subcortical white matter of the supratentorial brain are also similar to the prior study. This favors microvascular is chemic changes. No evidence for martini matter heterotopia or cortical dysplasia. The temporal lobes jessica ear symmetric. No abnormal enhancement. IMPRESSION: 1. No acute infarct or intracranial hemorrhage. 2. No significant change in the moderate ventriculomegaly. This is nonspecific but raise the possibil ity of a normal pressure hydrocephalus. 3. Mild microvascular ischemic changes again noted. ACT 112: Negative or not required by law. Electronically signed by: Kendall Sanderson M.D. 09/09/2022 4:51 PM
[2022-09-09] MEDS ORDERED: PHARMACY GLYCEMIC MGMT CONSULT PRN (17:04)
[2022-09-09] MEDS: INSULIN ASPART PER UNIT CHARGE SC SCH ×2 (17:30→21:16)
[2022-09-09] MEDS: levETIRAcetam 250 MG TAB PO SCH (18:20)
[2022-09-09] MEDS ORDERED: LANTUS PER UNIT CHARGE SQ SCH (21:00)
[2022-09-09] MEDS ORDERED: INSULIN ASPART PER UNIT CHARGE SC SCH (21:00)
[2022-09-09] MEDS ORDERED: DOXYCYCLINE HYCLATE 100 MG CAP PO SCH (21:00)
[2022-09-09] MEDS: ATORVASTATIN 40 MG TAB PO SCH (21:14)
[2022-09-09] MEDS: DOCUSATE SODIUM 100 MG CAP PO SCH (21:14)
[2022-09-09] MEDS: PHENYTOIN SODIUM ER 100 MG CAP PO SCH (21:15)
[2022-09-09] MEDS: HEPARIN SOD 5,000 UNIT/0.5 ML VIAL SQ SCH (21:15)
[2022-09-09] MEDS: levETIRAcetam 500 MG TAB PO SCH (21:16)
[2022-09-10 07:48] LABS: Hemoglobin 15.2 g/dl (12.0-16.0); Mean Corpuscular Hgb Conc 33.8 g/dL (32.0-36.0); Mean Corpuscular Volume 91.6 fL (80.0-100.0); Mean Platelet Volume 11.3 fL (9.4-12.4); Platelet Count 144 K/uL (130-400); RDW Coefficient of Variation 14.6 % (11.5-14.5); RDW Standard Deviation 49.2 fL (36.4-46.3); Red Blood Count 4.91 M/uL (4.20-5.40)
[2022-09-10] MEDS ORDERED: DOXYCYCLINE HYCLATE 100 MG CAP PO SCH (08:00)
[2022-09-10 08:11] LABS: Albumin Globulin Ratio 1.5 (0.9-2); Albumin Level 3.8 gm/dl (3.4-5.0); BUN Creatinine Ratio 26.5 (10-20); Bilirubin,Total 0.4 mg/dl (0.2-1.0); Creatinine Clr Calc Pharmacy 88.9 ml/min; Est GFR (African American) 122.7 ml/min; Est GFR (Non-African American) 105.9 ml/min; Globulin 2.5 gm/dl (2.5-4.0); Magnesium 1.9 mg/dl (1.7-2.4); Phosphorus 3.1 mg/dl (2.5-4.9); Total Protein 6.3 gm/dl (6.0-8.3)
[2022-09-10] MEDS: FAMOTIDINE 20 MG TAB PO SCH (08:45)
[2022-09-10] MEDS: VITAMIN B COMPLEX TAB PO SCH (08:45)
[2022-09-10] MEDS: INSULIN ASPART PER UNIT CHARGE SC SCH ×4 (08:45→20:37)
[2022-09-10] MEDS: PHENYTOIN SODIUM ER 100 MG CAP PO SCH ×2 (08:46→20:36)
[2022-09-10] MEDS: LORATADINE 10 MG TAB PO SCH (08:46)
[2022-09-10] MEDS: OXYBUTYNIN CHLORIDE XL 5 MG TABCR PO SCH (08:46)
[2022-09-10] MEDS: DOCUSATE SODIUM 100 MG CAP PO SCH ×2 (08:47→20:34)
[2022-09-10] MEDS: levETIRAcetam 250 MG TAB PO SCH (08:47)
[2022-09-10] MEDS: DOXYCYCLINE HYCLATE 100 MG CAP PO SCH ×2 (08:47→20:37)
[2022-09-10] MEDS: HEPARIN SOD 5,000 UNIT/0.5 ML VIAL SQ SCH ×2 (08:47→20:37)
[2022-09-10] MEDS: FLUTICASONE PROPIONATE NA SPR 16 GM BTL SCH (08:48)
--- NOTE | 2022-09-10 10:49 | Electroencephalogram ---
EEG Procedure Note Date of Service September 10, 2022 Start / End Times Start Time: 10:13 AM End Time: 10:33 AM Referring Physician Nilsa Cuevas History Altered mental status, history of seizures Home Medication List Medication Instructions Recorded Confirmed Type atorvastatin 40 mg tablet 40 mg PO HS 07/17/18 09/09/22 History glimepiride 2 mg tablet 2 mg PO QAM 07/17/18 09/09/22 History metformin 500 mg tablet,extended 1,000 mg PO BID 07/17/18 09/09/22 History release 24 hr multivit-iron 18 mg-folic acid 400 1 tab PO QAM 07/17/18 09/09/22 History mcg-calcium 500 mg-minerals tablet (Women's One Daily) oxybutynin chloride 10 mg 10 mg PO QAM 07/17/18 09/09/22 History tablet,extended release 24 hr polyethylene glycol 3350 17 gram 17 gm PO QAM 08/25/18 09/09/22 History oral powder packet (Miralax) vitamin B complex 1 tab PO QAM 08/25/18 09/09/22 History fluticasone propionate 50 2 sprays intranasal QAM 02/15/19 09/09/22 History mcg/actuation nasal spray,suspension loratadine 10 mg tablet (Allergy 10 mg PO QAM 02/15/19 09/09/22 History Relief (loratadine)) ammonium lactate 12 % topical cream 1 applic topical QAM 05/21/19 09/09/22 History docusate sodium 100 mg capsule 100 mg PO BID 05/21/19 09/09/22 History (Colace) triamcinolone acetonide 0.1 % 1 applic topical BID PRN Rash 07/10/21 09/09/22 History topical cream empagliflozin 10 mg tablet 10 mg PO DAILY 08/25/21 09/09/22 History (Jardiance) famotidine 20 mg tablet 20 mg PO DAILY 08/25/21 09/09/22 History clozapine 200 mg tablet 600 mg PO HS 10/31/21 09/09/22 History valacyclovir 500 mg tablet 500 mg PO DAILY 02/18/22 09/09/22 History phenytoin sodium extended 100 mg 300 mg PO BID 90 days #540 caps 08/27/22 09/09/22 Rx capsule (Dilantin Extended) levetiracetam 500 mg tablet 500 mg PO .COMPLEX seizures 90 08/28/22 09/09/22 Rx (Keppra) days #180 tabs Inpatient Medication List Atorvastatin Calcium (Atorvastatin 40 Mg Tab) 40 mg PO HS DELMI Stop: 10/09/22 20:59 Last Admin: 09/09/22 21:14 Dose: 40 mg Documented By: ANDREA Docusate Sodium (Docusate Sodium 100 Mg Cap) 100 mg PO BID DELMI Stop: 10/09/22 20:59 Last Admin: 09/10/22 08:47 Dose: 100 mg Documented By: [id number] Admin: 09/09/22 21:14 Dose: 100 mg Documented By: ANDREA Doxycycline Hyclate (Doxycycline Hyclate 100 Mg Cap) 100 mg PO BID DELMI Stop: 09/17/22 08:59 Last Admin: 09/10/22 08:47 Dose: 100 mg Documented By: [id number] Famotidine (Famotidine 20 Mg Tab) 20 mg PO DAILY DELMI Stop: 10/10/22 08:59 Last Admin: 09/10/22 08:45 Dose: 20 mg Documented By: [id number] Fluticasone Propionate (Fluticasone Propionate Na Spr 16 Gm Btl) 2 sprays NA QAM [facility] Stop: 10/10/22 08:59 Last Admin: 09/10/22 08:48 Dose: 2 sprays Documented By: [id number] Heparin Sodium (Porcine) (Heparin Sod 5,000 Unit/0.5 Ml Vial) 5,000 units SQ Q12 DELMI Stop: 10/09/22 20:59 Last Admin: 09/10/22 08:47 Dose: 5,000 units Documented By: [id number] Admin: 09/09/22 21:15 Dose: 5,000 units Documented By: ANDREA Insulin Aspart (Insulin Aspart Per Unit Charge) 0 units SC ACHS [facility] Stop: 10/09/22 17:29 Last Admin: 09/10/22 08:45 Dose: Not Given Documented By: [id number] Admin: 09/09/22 21:16 Dose: Not Given Documented By: Admin: 09/09/22 17:30 Dose: Not Given Documented By: KHADRA Levetiracetam (Levetiracetam 250 Mg Tab) 250 mg PO QAM [facility] Stop: 10/09/22 17:14 Last Admin: 09/10/22 08:47 Dose: 250 mg Documented By: [id number] Admin: 09/09/22 18:20 Dose: 250 mg Documented By: KHADRA Levetiracetam (Levetiracetam 500 Mg Tab) 500 mg PO PM DELMI Stop: 10/09/22 20:59 Last Admin: 09/09/22 21:16 Dose: 500 mg Documented By: ANDREA Loratadine (Loratadine 10 Mg Tab) 10 mg PO QAM [facility] Stop: 10/10/22 08:59 Last Admin: 09/10/22 08:46 Dose: 10 mg Documented By: [id number] Oxybutynin Chloride (Oxybutynin Chloride Xl 5 Mg Tabcr) 10 mg PO QAM [facility] Stop: 10/10/22 08:59 Last Admin: 09/10/22 08:46 Dose: 10 mg Documented By: [id number] Phenytoin Sodium (Phenytoin Sodium Er 100 Mg Cap) 300 mg PO BID [facility] Stop: 10/09/22 20:59 Last Admin: 09/10/22 08:46 Dose: 300 mg Documented By: [id number] Admin: 09/09/22 21:15 Dose: 300 mg Documented By: ANDREA Vitamin B Complex (Vitamin B Complex Tab) 1 tab PO QAM [facility] Stop: 10/10/22 08:59 Last Admin: 09/10/22 08:45 Dose: 1 tab Documented By: [id number] Discontinued Medications Gadobutrol (Gadobutrol 65ml Vial) 5.5 ml IV ONCE ONE Stop: 09/09/22 16:31 Last Admin: 09/09/22 16:31 Dose: 5.5 ml Documented By: ABIDA Cefepime HCl (Maxipime) 2,000 mg in 20 mls @ 5 mls/min IV NOW STA; Protocol Stop: 09/09/22 08:34 Last Admin: 09/09/22 08:40 Dose: 5 mls/min Documented By: MNOli Sodium Chloride (Nss 1000ml) 1,000 mls @ 999 mls/hr IV .Q1H1M DELMI Stop: 09/09/22 09:45 Last Infusion: 09/09/22 09:41 Dose: 0 mls/hr Documented By: Admin: 09/09/22 08:40 Dose: 999 mls/hr Documented By: MNE Sodium Chloride (Nss 1000ml) 1,000 mls @ 999 mls/hr IV .Q1H1M ONE Stop: 09/09/22 11:22 Last Infusion: 09/09/22 14:41 Dose: 0 mls/hr Documented By: Admin: 09/09/22 10:38 Dose: 999 mls/hr Documented By: SOLANGE Sodium Chloride (Nss 1000ml) 1,000 mls @ 80 mls/hr IV .[id number] DELMI Stop: 09/10/22 02:29 Last Infusion: 09/10/22 03:11 Dose: 0 mls/hr Documented By: Admin: 09/09/22 14:41 Dose: 80 mls/hr Documented By: PAULETTE Ceftriaxone Sodium (Rocephin) 2,000 mg in 70 mls @ 140 mls/hr IV NOW STA Stop: 09/09/22 14:28 Last Infusion: 09/09/22 15:41 Dose: 0 mls/hr Documented By: Admin: 09/09/22 14:41 Dose: 140 mls/hr Documented By: PAULETTE Doxycycline Hyclate 100 mg/ (Dextrose) 110 mls @ 50 mls/hr IV Q12H DELMI Stop: 09/12/22 14:29 Last Infusion: 09/09/22 16:53 Dose: 0 mls/hr Documented By: Admin: 09/09/22 14:41 Dose: 50 mls/hr Documented By: PAULETTE Description This is a 21 electrode EEG with a single channel dedicated to limited EKG. The electrodes were placed in accordance with the International 10-20 system. The predominant background rhythm consists of a mix of 3-1/2 to 5 Hz generalized slowing. There is a symmetric frontal beta rhythm. Photic stimulation is unremarkable. Hyperventilation is not performed. There are no sleep changes. There are no epileptiform abnormalities. Interpretation Abnormal awake/drowsy EEG with evidence of a nonspecific encephalopathy of moderate severity. No epileptiform abnormalities. [facility] EEG Procedure Codes Indication for Procedure (1) Altered mental status: (2) Seizure disorder: Neurology Neurology: [id number] EEG include record awake & drowsy
[2022-09-10 12:57] LABS: Estimated Average Glucose 128 mg/dl; Hemoglobin A1C 6.1 % (4.5-5.6)
--- NOTE | 2022-09-10 13:51 | Hospitalist Progress Note ---
Date of Service September 10, 2022 Assessment & Plan (1) Generalized weakness: (2) AMS (altered mental status): (3) Diabetes mellitus type 2 in nonobese: (4) Complex partial seizure: (5) Hypertension: (6) Diabetes: Plan 62-year-old presents to the ED with AMS. Patient with history of complex partial seizure and recent dose changes per outpatient neurology. Does not appear toxic. Initial lactate elevated 2.3; down to 1.9 s/p fluid resuscitation. Recent weight 10# weight loss over past month. Currently being tx for r foot cellulitis on Doxy until 09/12. Additional PMH NIDDM2, known heart murmur, schizophrenia with auditory hallucinations, and HLD. Head CT and CXR negative. N oted dose changes with Keppra recently. Dilantin levels normal. AMS: H/O Complex Partial seizure: Patient is a 62-year-old female who presented from [facility] with concern for altered mental status. She has past medical history of complex seizure disorder, schizophrenia, intellectual disability. On presentation; vital stable. Labs reviewed from admission; no significant findings. History of complex partial seizures with last seizure in 2010. Follows up with Dr. Marshall. On Dilantin and Keppra. Keppra dose recently increased to 750 mg daily. Keppra level pending. Dilantin level12.6; within therapeutic range. MRI brain done on admission did not show any acute findings. No significant changes in the moderate ventriculomegaly. EEGabnormal awake/drowsy EEG with evidence of nonspecific encephalopathy of moderate severity. No epileptiform abnormalities. On 09/10, patient appears to be closer to her baseline. AMS: R foot cellulitis: Improving On PO Doxy until 09/12 Will do Rocephin IV daily and continue PO Doxy Blood cultures pending. Schizophrenia with auditory hallucinations: Follows with psychiatry Dr. Oneill Has a refocusing word that she says: 'flutterbutz' to remind her of reality. Continue on clozapine. DM2: No Hyper/Hypoglycemia Takes Metformin and Jardiance; Will switch to SSI FSBS ACHS while here GERD: Takes Famotidine; cotninue Disposition: PCP: Code Status: Code Status. Father is POA VTE Prophylaxis: Lovenox SQ Please note the above document was generated using voice recognition software. It may contain grammatical, syntax or spelling errors. Any formal questions or concerns about the content, text or information contained within the body of this dictation should be directly addressed to the provider for clarification Admission and Anticipated Discharge Date Admission Date: September 09, 2022 Subjective Patient seen and examined at bedside. She is awake; opening her eyes and tracking. She gives one-word answers. Denies any pain or discomfort. Review of Systems Review of Systems: All systems reviewed & are unremarkable except as noted in Subjective Physical Exam Physical Exam: Constitutional: Awake, opening her eyes. Not in any distress. Respiratory: normal respiratory effort, lungs clear to auscultation, no wheeze, rales, rhonchi. Normal insp/exp effort, no accessory muscle use Cardiovascular: RRR, no murmur, no edema Vessels: no JVD or carotid bruit Chest: normal inspection of chest Abdomen: Soft, nontender. Musculoskeletal: no cyanosis or clubbing, extremities motor strength 5/5 Skin: no rashes, warm and dry normal turgor Neurologic: PERRL, EOMI, accommodation nl, no face palsy, no dysarthria CN's II- XI intact bilaterally and moves all extremities Psychiatric: Awake, opening her eyes. Not in any distress. Lymphatic: no cervical or axillary lymphadenopathy : deferred Results & Data Results & Data Vital Signs (Past 12 Hours) Vital Signs Temp Pulse Pulse Pulse Resp BP Pulse Ox 09/10/22 12:01 36.8 C 67 16 114/70 99 09/10/22 07:00 63 09/10/22 10:28 09/10/22 08:03 36.3 C L 82 16 129/78 99 09/10/22 04:27 36.3 C L 69 18 136/72 98 O2 Del Method 09/10/22 12:01 Room Air 09/10/22 07:00 09/10/22 10:28 Room Air 09/10/22 08:03 Room Air 09/10/22 04:27 Room Air Laboratory Results Laboratory Results WBC 6.10 K/ul (4.8-10.8) 09/10/22 07:14 RBC 4.91 M/uL (4.20-5.40) 09/10/22 07:14 Hgb 15.2 g/dl (12.0-16.0) 09/10/22 07:14 Hct 45.0 % (37.0-47.0) 09/10/22 07:14 MCV 91.6 fL (80.0-100.0) 09/10/22 07:14 MCH 31.0 pg (25.0-34.0) 09/10/22 07:14 MCHC 33.8 g/dL (32.0-36.0) 09/10/22 07:14 RDW Std Deviation 49.2 fL (36.4-46.3) H 09/10/22 07:14 RDW Coeff of Liliana 14.6 % (11.5-14.5) H 09/10/22 07:14 Plt Count 144 K/uL (130-400) 09/10/22 07:14 MPV 11.3 fL (9.4-12.4) 09/10/22 07:14 Immature Gran % (Auto) 0.3 % 09/09/22 08:35 Neut % (Auto) 74.8 % 09/09/22 08:35 Lymph % (Auto) 16.7 % 09/09/22 08:35 Wise % (Auto) 7.9 % 09/09/22 08:35 Eos % (Auto) 0.0 % 09/09/22 08:35 Baso % (Auto) 0.3 % 09/09/22 08:35 Neut # (Auto) 4.66 K/uL (1.40-6.50) 09/09/22 08:35 Lymph # (Auto) 1.04 K/uL (1.2-3.4) L 09/09/22 08:35 Wise # (Auto) 0.49 K/uL (0.11-0.59) 09/09/22 08:35 Eos # (Auto) 0.00 K/uL (0-0.50) 09/09/22 08:35 Baso # (Auto) 0.02 K/uL (0-0.2) 09/09/22 08:35 Immature Gran # (Auto) 0.02 K/uL (0.01-0.20) 09/09/22 08:35 PT 10.6 Seconds (9.0-12.0) 09/09/22 08:35 INR 1.0 (0.9-1.1) 09/09/22 08:35 APTT 21.4 Seconds (21.0-31.0) 09/09/22 08:35 PTT Ratio 0.8 09/09/22 08:35 Sodium 142 mmol/L (136-145) 09/10/22 07:14 Potassium 4.0 mmol/L (3.5-5.1) 09/10/22 07:14 Chloride 110 mmol/L (98-107) H 09/10/22 07:14 Carbon Dioxide 26 mmol/L (21-32) 09/10/22 07:14 Anion Gap 6 (3-11) 09/10/22 07:14 BUN 13 mg/dl (6-23) 09/10/22 07:14 Creatinine 0.49 mg/dl (0.6-1.2) L 09/10/22 07:14 Est Cr Clr Drug Dosing 88.9 ml/min 09/10/22 07:14 Est GFR ( Amer) 122.7 ml/min 09/10/22 07:14 Est GFR (Non-Af Amer) 105.9 ml/min 09/10/22 07:14 BUN/Creatinine Ratio 26.5 (10-20) H 09/10/22 07:14 Glucose 105 mg/dl (70-99(Fasting)) H 09/10/22 07:14 POC Glucose 122 mg/dl (70-99) H 09/10/22 11:43 Estimat Average Glucose 128 mg/dl 09/10/22 07:14 Hemoglobin A1c 6.1 % (4.5-5.6) H 09/10/22 07:14 Lactate 1.9 mmol/L (0.4-2.0) 09/09/22 11:06 Calcium 9.0 mg/dl (8.6-10.3) 09/10/22 07:14 Phosphorus 3.1 mg/dl (2.5-4.9) 09/10/22 07:14 Magnesium 1.9 mg/dl (1.7-2.4) 09/10/22 07:14 Total Bilirubin 0.4 mg/dl (0.2-1.0) 09/10/22 07:14 Direct Bilirubin 0.0 mg/dl (0-0.2) 09/09/22 10:08 AST 18 U/L (13-39) 09/10/22 07:14 ALT 20 U/L (7-52) 09/10/22 07:14 Alkaline Phosphatase 115 U/L (34-104) H 09/10/22 07:14 Troponin I High Sens 2.9 pg/ml (0-14) 09/09/22 08:35 Total Protein 6.3 gm/dl (6.0-8.3) 09/10/22 07:14 Albumin 3.8 gm/dl (3.4-5.0) 09/10/22 07:14 Globulin 2.5 gm/dl (2.5-4.0) 09/10/22 07:14 Albumin/Globulin Ratio 1.5 (0.9-2) 09/10/22 07:14 Procalcitonin < 0.05 ng/ml (0-0.5) 09/09/22 08:35 TSH 0.710 uIu/ml (0.300-4.500) 09/09/22 14:52 Urine Color Yellow 09/09/22 10:00 Urine Appearance Clear (Clear) 09/09/22 10:00 Urine pH 6.0 (4.5-7.5) 09/09/22 10:00 Ur Specific Buchanan 1.012 (1.000-1.030) 09/09/22 10:00 Urine Protein Negative (Negative) 09/09/22 10:00 Urine Glucose (UA) 3+ (Negative) H 09/09/22 10:00 Urine Ketones Negative (Negative) 09/09/22 10:00 Urine Blood Negative (Negative) 09/09/22 10:00 Urine Nitrite Negative (Negative) 09/09/22 10:00 Urine Bilirubin Negative (Negative) 09/09/22 10:00 Urine Urobilinogen Negative (Negative) 09/09/22 10:00 Ur Leukocyte Esterase Negative (Negative) 09/09/22 10:00 Phenytoin 12.6 mcg/ml (10-20) 09/09/22 11:06 SARS-CoV-2 (PCR) NEGATIVE (Negative) 09/09/22 08:40 Influenza Type A (PCR) Negative (Neg) 09/09/22 08:40 Influenza Type B (PCR) Negative (Neg) 09/09/22 08:40 RSV (RT-PCR) Negative (Neg) 09/09/22 08:40 Impressions Chest X-Ray 09/09/22 08:31 SINGLE VIEW CHEST CLINICAL HISTORY: Sepsis. FINDINGS: An AP, portable, upright chest radiograph is compared to study dated 07/02/2022. The cardiomediastinal silhouette is unremarkable. Chronic interstitial thickening is similar to previous. There is mild elevation of the left hemidiaphragm and bibasilar atelectasis. No airspace consolidation or large pleural effusion is identified. No pneumothorax is seen. The skeletal structures are osteopenic. The bony thorax is grossly intact. IMPRESSION: No active disease in the chest. ACT 112: Negative or not required by law. Electronically signed by: Carlos Savage M.D. 09/09/2022 8:[address] 09/09/22 08:31 CT SCAN OF THE BRAIN WITHOUT IV CONTRAST CLINICAL HISTORY: Lethargy COMPARISON STUDY: CT of the brain dated 07/02/2022. TECHNIQUE: Unenhanced axial CT scan of the brain is performed from the vertex to the skull base. A dose lowering technique was utilized adhering to the principles of ALARA. CT DOSE: 614.27 mGy.cm FINDINGS: Brain parenchyma: There is age-related involutional change noting mild subcortical and periventricular microangiopathic disease. There is no hemorrhage, mass effect, or evidence of acute territorial ischemia by CT criteria. Fernandez-white matter differentiation is preserved. No extra-axial fluid collection is seen. Ventricles, sulci, cisterns: Prominent secondary to involutional change. Ventriculomegaly is similar to previous. Intracranial vasculature: There is atherosclerotic calcification of the cavernous carotid arteries. Calvarium: Unremarkable. Sinuses and mastoids: There is mild mucosal thickening in the left maxillary antrum. The remaining visualized paranasal sinuses are clear. The mastoid air cells are well pneumatized. Orbits: The bony orbits are grossly intact. IMPRESSION: 1. There is no hemorrhage, mass effect, or evidence of acute territorial ischemia by CT criteria. 2. Ventriculomegaly is unchanged. ACT 112: Negative or not required by law. Electronically signed by: Carlos Savage M.D. 09/09/2022 9:09 AM Brain MRI 09/09/22 13:59 Brain MRI WITH AND WITHOUT CONTRAST HISTORY: Altered mental status/HO Seizure TECHNIQUE: Multiplanar multisequence MRI of the brain was performed both before and after the intravenous administration of contrast. COMPARISON STUDY: Head CT 09/09/2022. Brain MRI 07/20/2019. FINDINGS: No areas restricted diffusion to suggest acute infarction. The midline structures are intact. Mild mucosal thickening within the ethmoid air cells and left maxillary sinus. The mastoid air cells are clear. The major vascular flow- voids at the skull base are well-maintained. There is no mass, hematoma, or midline shift. The orbits are unremarkable. Moderate ventriculomegaly is not significantly changed. Scattered foci of T2 hyperintensity seen within the periventricular and subcortical white matter of the supratentorial brain are also similar to the prior study. This favors microvascular ischemic changes. No evidence for fernandez matter heterotopia or cortical dysplasia. The temporal lobes appear symmetric. No abnormal enhancement. IMPRESSION: 1. No acute infarct or intracranial hemorrhage. 2. No significant change in the moderate ventriculomegaly. This is nonspecific but raise the possibility of a normal pressure hydrocephalus. 3. Mild microvascular ischemic changes again noted. ACT 112: Negative or not required by law. Electronically signed by: Kendall Sanderson M.D. 09/09/2022 4:51 PM
--- NOTE | 2022-09-10 14:32 | Pharmacy Report ---
Pharmacy Glycemic Sign Off Nt - Date of Service September 10, 2022 - Assessment & Plan ASSESSMENT: * Pharmacy was consulted on 09/09 for glycemic control and to write orders per [facility] inpatient glycemic control protocol. * Major changes made by pharmacy to antidiabetic regimen include: * added novolog scale with CF only * Patient has been receiving no insulin over last 24 hours * Please see recommendations for outpatient antidiabetic regimen below. PLAN FOR INPATIENT GLYCEMIC CONTROL: No changes needed to current regimen. * Continue NovoLog per scale ACHS/Q6hrs while NPO * Goal range = 120-160 mg/dl * CF = 30 mg/dl/unit * CR = 1 unit for ever --- g CHO consumed * Pharmacy is signing off of glycemic consult and will no longer be making adjustments to inpatient regimen. Please feel free to re-consult if needed. Thank you.
[2022-09-10] MEDS: cefTRIAXone SODIUM 1,000 MG in DEXTROSE 5% AD-VAN 50 ML IV SCH (14:36)
[2022-09-10] MEDS: ATORVASTATIN 40 MG TAB PO SCH (20:34)
[2022-09-10] MEDS: cloZAPine 100 MG TAB PO SCH (20:34)
[2022-09-10] MEDS: levETIRAcetam 500 MG TAB PO SCH (20:36)
[2022-09-11] MEDS: PHENYTOIN SODIUM ER 100 MG CAP PO SCH ×2 (07:45→21:08)
[2022-09-11] MEDS: OXYBUTYNIN CHLORIDE XL 5 MG TABCR PO SCH (07:45)
[2022-09-11] MEDS: DOCUSATE SODIUM 100 MG CAP PO SCH ×2 (07:45→21:07)
[2022-09-11] MEDS: FAMOTIDINE 20 MG TAB PO SCH (07:46)
[2022-09-11] MEDS: LORATADINE 10 MG TAB PO SCH (07:46)
[2022-09-11] MEDS: VITAMIN B COMPLEX TAB PO SCH (07:46)
[2022-09-11] MEDS: levETIRAcetam 250 MG TAB PO SCH ×2 (07:46→21:07)
[2022-09-11] MEDS: DOXYCYCLINE HYCLATE 100 MG CAP PO SCH ×2 (07:47→21:08)
[2022-09-11] MEDS: FLUTICASONE PROPIONATE NA SPR 16 GM BTL SCH (07:47)
[2022-09-11] MEDS: HEPARIN SOD 5,000 UNIT/0.5 ML VIAL SQ SCH ×2 (07:47→21:08)
[2022-09-11] MEDS: INSULIN ASPART PER UNIT CHARGE SC SCH ×4 (07:49→21:08)
[2022-09-11 10:40] LABS: Basophils # (auto) 0.02 K/uL (0-0.2); Basophils % (auto) 0.3 %; Hemoglobin 14.9 g/dl (12.0-16.0); Immature Granulocytes # (auto) 0.02 K/uL (0.01-0.20); Immature Granulocytes % (auto) 0.3 %; Lymphocytes # (auto) 0.76 K/uL (1.2-3.4); Lymphocytes % (auto) 11.1 %; Mean Corpuscular Hgb Conc 34.7 g/dL (32.0-36.0); Mean Corpuscular Volume 89.4 fL (80.0-100.0); Mean Platelet Volume 11.2 fL (9.4-12.4); Monocytes # (auto) 0.48 K/uL (0.11-0.59); Neutrophils # (auto) 5.56 K/uL (1.40-6.50); Neutrophils % (auto) 81.3 %; Platelet Count 144 K/uL (130-400); RDW Coefficient of Variation 14.4 % (11.5-14.5); RDW Standard Deviation 47.2 fL (36.4-46.3); Red Blood Count 4.81 M/uL (4.20-5.40); White Blood Count 6.84 K/ul (4.8-10.8)
[2022-09-11 10:57] LABS: Calcium 9.2 mg/dl (8.6-10.3); Potassium 4.2 mmol/L (3.5-5.1)
[2022-09-11 11:03] LABS: BUN Creatinine Ratio 31.7 (10-20); Creatinine Clr Calc Pharmacy 69.4 ml/min; Est GFR (Non-African American) 97.5 ml/min
[2022-09-11] MEDS: cefTRIAXone SODIUM 1,000 MG in DEXTROSE 5% AD-VAN 50 ML IV SCH (13:31)
--- NOTE | 2022-09-11 13:52 | Hospitalist Progress Note ---
Date of Service September 11, 2022 Assessment & Plan (1) Generalized weakness: (2) AMS (altered mental status): (3) Diabetes mellitus type 2 in nonobese: (4) Complex partial seizure: (5) Hypertension: (6) Diabetes: Plan 62-year-old presents to the ED with AMS. Patient with history of complex partial seizure and recent dose changes per outpatient neurology. Does not appear toxic. Initial lactate elevated 2.3; down to 1.9 s/p fluid resuscitation. Recent weight 10# weight loss over past month. Currently being tx for r foot cellulitis on Doxy until 09/12. Additional PMH NIDDM2, known heart murmur, schizophrenia with auditory hallucinations, and HLD. Head CT and CXR negative. N oted dose changes with Keppra recently. Dilantin levels normal. AMS: H/O Complex Partial seizure: Patient is a 62-year-old female who presented from [facility] with concern for altered mental status. She has past medical history of complex seizure disorder, schizophrenia, intellectual disability. On presentation; vital stable. Labs reviewed from admission; no significant findings. History of complex partial seizures with last seizure in 2010. Follows up with Dr. Marshall. On Dilantin and Keppra. Keppra dose recently increased to 750 mg daily. Keppra level pending. Dilantin level12.6; within therapeutic range. MRI brain done on admission did not show any acute findings. No significant changes in the moderate ventriculomegaly. EEGabnormal awake/drowsy EEG with evidence of nonspecific encephalopathy of moderate severity. No epileptiform abnormalities. Discussed with Dr. Marshall from neurology; he recommended Keppra dose to be decreased back to 250 mg twice daily. Patient's mentation continues to improve. PT OT pending AMS: R foot cellulitis: Improving On PO Doxy until 09/12 Will do Rocephin IV daily and continue PO Doxy Blood cultures no growth till date Schizophrenia with auditory hallucinations: Follows with psychiatry Dr. Oneill Has a refocusing word that she says: 'flutterbutz' to remind her of reality. Continue on clozapine. DM2: No Hyper/Hypoglycemia Takes Metformin and Jardiance; Will switch to SSI FSBS ACHS while here GERD: Takes Famotidine; continue Disposition: PCP: Code Status: Code Status. Father is POA VTE Prophylaxis: Lovenox SQ Please note the above document was generated using voice recognition software. It may contain grammatical, syntax or spelling errors. Any formal questions or concerns about the content, text or information contained within the body of this dictation should be directly addressed to the provider for clarification Admission and Anticipated Discharge Date Admission Date: September 09, 2022 Subjective Patient seen and examined at bedside. She is more awake and interactive today compared to yesterday. Denies any pain or discomfort. Review of Systems Review of Systems: All systems reviewed & are unremarkable except as noted in Subjective Physical Exam Physical Exam: Constitutional: Awake, opening her eyes. Not in any distress. Gives one-word answers to most questions. Denies any discomfort. Respiratory: normal respiratory effort, lungs clear to auscultation, no wheeze, rales, rhonchi. Normal insp/exp effort, no accessory muscle use Cardiovascular: RRR, no murmur, no edema Vessels: no JVD or carotid bruit Chest: normal inspection of chest Abdomen: Soft, nontender. Musculoskeletal: no cyanosis or clubbing, extremities motor strength 5/5 Skin: no rashes, warm and dry normal turgor Neurologic: PERRL, EOMI, accommodation nl, no face palsy, no dysarthria CN's II- XI intact bilaterally and moves all extremities Psychiatric: Awake, opening her eyes. Not in any distress. Lymphatic: no cervical or axillary lymphadenopathy : deferred Results & Data Results & Data Vital Signs (Past 12 Hours) Vital Signs Temp Pulse Pulse Resp BP Pulse Ox O2 Del Method 09/11/22 11:30 37.1 C 77 18 99/67 L 96 Room Air 09/11/22 10:56 Room Air 09/11/22 07:33 37.5 C 82 18 134/79 99 Room Air 09/11/22 03:27 36.5 C 64 16 102/66 97 Room Air Laboratory Results Laboratory Results WBC 6.84 K/ul (4.8-10.8) 09/11/22 10:21 RBC 4.81 M/uL (4.20-5.40) 09/11/22 10:21 Hgb 14.9 g/dl (12.0-16.0) 09/11/22 10:21 Hct 43.0 % (37.0-47.0) 09/11/22 10:21 MCV 89.4 fL (80.0-100.0) 09/11/22 10:21 MCH 31.0 pg (25.0-34.0) 09/11/22 10:21 MCHC 34.7 g/dL (32.0-36.0) 09/11/22 10:21 RDW Std Deviation 47.2 fL (36.4-46.3) H 09/11/22 10:21 RDW Coeff of Liliana 14.4 % (11.5-14.5) 09/11/22 10:21 Plt Count 144 K/uL (130-400) 09/11/22 10:21 MPV 11.2 fL (9.4-12.4) 09/11/22 10:21 Immature Gran % (Auto) 0.3 % 09/11/22 10:21 Neut % (Auto) 81.3 % 09/11/22 10:21 Lymph % (Auto) 11.1 % 09/11/22 10:21 [place] % (Auto) 7.0 % 09/11/22 10:21 Eos % (Auto) 0.0 % 09/11/22 10:21 Baso % (Auto) 0.3 % 09/11/22 10:21 Neut # (Auto) 5.56 K/uL (1.40-6.50) 09/11/22 10:21 Lymph # (Auto) 0.76 K/uL (1.2-3.4) L 09/11/22 10:21 [place] # (Auto) 0.48 K/uL (0.11-0.59) 09/11/22 10:21 Eos # (Auto) 0.00 K/uL (0-0.50) 09/11/22 10:21 Baso # (Auto) 0.02 K/uL (0-0.2) 09/11/22 10:21 Immature Gran # (Auto) 0.02 K/uL (0.01-0.20) 09/11/22 10:21 PT 10.6 Seconds (9.0-12.0) 09/09/22 08:35 INR 1.0 (0.9-1.1) 09/09/22 08:35 APTT 21.4 Seconds (21.0-31.0) 09/09/22 08:35 PTT Ratio 0.8 09/09/22 08:35 Sodium 139 mmol/L (136-145) 09/11/22 10:21 Potassium 4.2 mmol/L (3.5-5.1) 09/11/22 10:21 Chloride 106 mmol/L (98-107) 09/11/22 10:21 Carbon Dioxide 25 mmol/L (21-32) 09/11/22 10:21 Anion Gap 8 (3-11) 09/11/22 10:21 BUN 20 mg/dl (6-23) 09/11/22 10:21 Creatinine 0.63 mg/dl (0.6-1.2) 09/11/22 10:21 Est Cr Clr Drug Dosing 69.4 ml/min 09/11/22 10:21 Est GFR ( Amer) 113.0 ml/min 09/11/22 10:21 Est GFR (Non-Af Amer) 97.5 ml/min 09/11/22 10:21 BUN/Creatinine Ratio 31.7 (10-20) H 09/11/22 10:21 Glucose 240 mg/dl (70-99(Fasting)) H 09/11/22 10:21 POC Glucose 238 mg/dl (70-99) H 09/11/22 11:21 Estimat Average Glucose 128 mg/dl 09/10/22 07:14 Hemoglobin A1c 6.1 % (4.5-5.6) H 09/10/22 07:14 Lactate 1.9 mmol/L (0.4-2.0) 09/09/22 11:06 Calcium 9.2 mg/dl (8.6-10.3) 09/11/22 10:21 Phosphorus 3.1 mg/dl (2.5-4.9) 09/10/22 07:14 Magnesium 1.9 mg/dl (1.7-2.4) 09/10/22 07:14 Total Bilirubin 0.4 mg/dl (0.2-1.0) 09/10/22 07:14 Direct Bilirubin 0.0 mg/dl (0-0.2) 09/09/22 10:08 AST 18 U/L (13-39) 09/10/22 07:14 ALT 20 U/L (7-52) 09/10/22 07:14 Alkaline Phosphatase 115 U/L (34-104) H 09/10/22 07:14 Troponin I High Sens 2.9 pg/ml (0-14) 09/09/22 08:35 Total Protein 6.3 gm/dl (6.0-8.3) 09/10/22 07:14 Albumin 3.8 gm/dl (3.4-5.0) 09/10/22 07:14 Globulin 2.5 gm/dl (2.5-4.0) 09/10/22 07:14 Albumin/Globulin Ratio 1.5 (0.9-2) 09/10/22 07:14 Procalcitonin < 0.05 ng/ml (0-0.5) 09/09/22 08:35 TSH 0.710 uIu/ml (0.300-4.500) 09/09/22 14:52 Urine Color Yellow 09/09/22 10:00 Urine Appearance Clear (Clear) 09/09/22 10:00 Urine pH 6.0 (4.5-7.5) 09/09/22 10:00 Ur Specific [place] 1.012 (1.000-1.030) 09/09/22 10:00 Urine Protein Negative (Negative) 09/09/22 10:00 Urine Glucose (UA) 3+ (Negative) H 09/09/22 10:00 Urine Ketones Negative (Negative) 09/09/22 10:00 Urine Blood Negative (Negative) 09/09/22 10:00 Urine Nitrite Negative (Negative) 09/09/22 10:00 Urine Bilirubin Negative (Negative) 09/09/22 10:00 Urine Urobilinogen Negative (Negative) 09/09/22 10:00 Ur Leukocyte Esterase Negative (Negative) 09/09/22 10:00 Phenytoin 12.6 mcg/ml (10-20) 09/09/22 11:06 SARS-CoV-2 (PCR) NEGATIVE (Negative) 09/09/22 08:40 Influenza Type A (PCR) Negative (Neg) 09/09/22 08:40 Influenza Type B (PCR) Negative (Neg) 09/09/22 08:40 RSV (RT-PCR) Negative (Neg) 09/09/22 08:40 Impressions Chest X-Ray 09/09/22 08:31 SINGLE VIEW CHEST CLINICAL HISTORY: Sepsis. FINDINGS: An AP, portable, upright chest radiograph is compared to study dated 07/02/2022. The cardiomediastinal silhouette is unremarkable. Chronic interstitial thickening is similar to previous. There is mild elevation of the left hemidiaphragm and bibasilar atelectasis. No airspace consolidation or large pleural effusion is identified. No pneumothorax is seen. The skeletal structures are osteopenic. The bony thorax is grossly intact. IMPRESSION: No active disease in the chest. ACT 112: Negative or not required by law. Electronically signed by: Carlos Savage M.D. 09/09/2022 8:[address] 09/09/22 08:31 CT SCAN OF THE BRAIN WITHOUT IV CONTRAST CLINICAL HISTORY: Lethargy COMPARISON STUDY: CT of the brain dated 07/02/2022. TECHNIQUE: Unenhanced axial CT scan of the brain is performed from the vertex to the skull base. A dose lowering technique was utilized adhering to the principles of ALARA. CT DOSE: 614.27 mGy.cm FINDINGS: Brain parenchyma: There is age-related involutional change noting mild subcortical and periventricular microangiopathic disease. There is no hemorrhage, mass effect, or evidence of acute territorial ischemia by CT criteria. Fernandez-white matter differentiation is preserved. No extra-axial fluid collection is seen. Ventricles, sulci, cisterns: Prominent secondary to involutional change. Ventriculomegaly is similar to previous. Intracranial vasculature: There is atherosclerotic calcification of the cavernous carotid arteries. Calvarium: Unremarkable. Sinuses and mastoids: There is mild mucosal thickening in the left maxillary antrum. The remaining visualized paranasal sinuses are clear. The mastoid air cells are well pneumatized. Orbits: The bony orbits are grossly intact. IMPRESSION: 1. There is no hemorrhage, mass effect, or evidence of acute territorial ischemia by CT criteria. 2. Ventriculomegaly is unchanged. ACT 112: Negative or not required by law. Electronically signed by: Carlos Savage M.D. 09/09/2022 9:09 AM Brain MRI 09/09/22 13:59 Brain MRI WITH AND WITHOUT CONTRAST HISTORY: Altered mental status/HO Seizure TECHNIQUE: Multiplanar multisequence MRI of the brain was performed both before and after the intravenous administration of contrast. COMPARISON STUDY: Head CT 09/09/2022. Brain MRI 07/20/2019. FINDINGS: No areas restricted diffusion to suggest acute infarction. The midline structures are intact. Mild mucosal thickening within the ethmoid air cells and left maxillary sinus. The mastoid air cells are clear. The major vascular flow- voids at the skull base are well-maintained. There is no mass, hematoma, or midline shift. The orbits are unremarkable. Moderate ventriculomegaly is not significantly changed. Scattered foci of T2 hyperintensity seen within the periventricular and subcortical white matter of the supratentorial brain are also similar to the prior study. This favors microvascular ischemic changes. No evidence for fernandez matter heterotopia or cortical dysplasia. The temporal lobes appear symmetric. No abnormal enhancement. IMPRESSION: 1. No acute infarct or intracranial hemorrhage. 2. No significant change in the moderate ventriculomegaly. This is nonspecific but raise the possibility of a normal pressure hydrocephalus. 3. Mild microvascular ischemic changes again noted. ACT 112: Negative or not required by law. Electronically signed by: Kendall Sanderson M.D. 09/09/2022 4:51 PM
[2022-09-11] MEDS: ATORVASTATIN 40 MG TAB PO SCH (21:08)
[2022-09-11] MEDS: cloZAPine 100 MG TAB PO SCH (21:08)
[2022-09-12 07:44] LABS: Basophils # (auto) 0.02 K/uL (0-0.2); Basophils % (auto) 0.4 %; Hematocrit (blood only) 45.5 % (37.0-47.0); Hemoglobin 15.7 g/dl (12.0-16.0); Immature Granulocytes # (auto) 0.01 K/uL (0.01-0.20); Immature Granulocytes % (auto) 0.2 %; Lymphocytes # (auto) 1.19 K/uL (1.2-3.4); Lymphocytes % (auto) 22.7 %; Mean Corpuscular Hemoglobin 30.5 pg (25.0-34.0); Mean Corpuscular Hgb Conc 34.5 g/dL (32.0-36.0); Mean Corpuscular Volume 88.5 fL (80.0-100.0); Mean Platelet Volume 11.6 fL (9.4-12.4); Monocytes # (auto) 0.52 K/uL (0.11-0.59); Monocytes % (auto) 9.9 %; Neutrophils % (auto) 66.8 %; Platelet Count 140 K/uL (130-400); RDW Coefficient of Variation 14.5 % (11.5-14.5); RDW Standard Deviation 47.1 fL (36.4-46.3); Red Blood Count 5.14 M/uL (4.20-5.40); White Blood Count 5.24 K/ul (4.8-10.8)
[2022-09-12 07:52] LABS: Albumin Globulin Ratio 1.5 (0.9-2); Albumin Level 3.8 gm/dl (3.4-5.0); BUN Creatinine Ratio 41.8 (10-20); Bilirubin,Total 0.3 mg/dl (0.2-1.0); Creatinine Clr Calc Pharmacy 120.6 ml/min; Est GFR (African American) 118.2 ml/min; Est GFR (Non-African American) 101.9 ml/min; Globulin 2.5 gm/dl (2.5-4.0); Total Protein 6.3 gm/dl (6.0-8.3)
[2022-09-12] MEDS: INSULIN ASPART PER UNIT CHARGE SC SCH ×4 (09:09→20:36)
[2022-09-12] MEDS: LORATADINE 10 MG TAB PO SCH (09:12)
[2022-09-12] MEDS: VITAMIN B COMPLEX TAB PO SCH (09:12)
[2022-09-12] MEDS: DOXYCYCLINE HYCLATE 100 MG CAP PO SCH (09:12)
[2022-09-12] MEDS: OXYBUTYNIN CHLORIDE XL 5 MG TABCR PO SCH (09:12)
[2022-09-12] MEDS: FLUTICASONE PROPIONATE NA SPR 16 GM BTL SCH (09:13)
[2022-09-12] MEDS: DOCUSATE SODIUM 100 MG CAP PO SCH ×2 (09:13→20:35)
[2022-09-12] MEDS: FAMOTIDINE 20 MG TAB PO SCH (09:13)
[2022-09-12] MEDS: levETIRAcetam 250 MG TAB PO SCH ×2 (09:14→20:35)
[2022-09-12] MEDS: HEPARIN SOD 5,000 UNIT/0.5 ML VIAL SQ SCH ×2 (09:14→20:35)
[2022-09-12] MEDS: PHENYTOIN SODIUM ER 100 MG CAP PO SCH ×2 (09:17→20:35)
--- NOTE | 2022-09-12 13:02 | Hospitalist Progress Note ---
Date of Service September 12, 2022 Assessment & Plan (1) Generalized weakness: (2) AMS (altered mental status): (3) Diabetes mellitus type 2 in nonobese: (4) Complex partial seizure: (5) Hypertension: (6) Diabetes: Plan 62-year-old presents to the ED with AMS. Patient with history of complex partial seizure and recent dose changes per outpatient neurology. Does not appear toxic. Initial lactate elevated 2.3; down to 1.9 s/p fluid resuscitation. Recent weight 10# weight loss over past month. Currently being tx for r foot cellulitis on Doxy until 09/12. Additional PMH NIDDM2, known heart murmur, schizophrenia with auditory hallucinations, and HLD. Head CT and CXR negative. N oted dose changes with Keppra recently. Dilantin levels normal. AMS: H/O Complex Partial seizure: Patient is a 62-year-old female who presented from [facility] with concern for altered mental status. She has past medical history of complex seizure disorder, schizophrenia, intellectual disability. On presentation; vital stable. Labs reviewed from admission; no significant findings. History of complex partial seizures with last seizure in 2010. Follows up with Dr. Marshall. On Dilantin and Keppra. Keppra dose recently increased to 750 mg daily. Keppra level pending. Dilantin level12.6; within therapeutic range. MRI brain done on admission did not show any acute findings. No significant changes in the moderate ventriculomegaly. EEGabnormal awake/drowsy EEG with evidence of nonspecific encephalopathy of moderate severity. No epileptiform abnormalities. Discussed with Dr. Marshall from neurology on 09/11; he recommended Keppra dose to be decreased back to 250 mg twice daily. Also, Dilantin dose changed to her previous dosing. Patient has been seizure-free since 2010 on s same medications. Patient's mentation continues to improve. He recommended to fo llow-up in 2 to 3 weeks. Discussed with her caregiver at bedside on 09/11; she noted that patient had become more tremulous and lethargic since the increase in the dose of Keppra and Dilantin. She reports that patient 's mentation has improved compared to previous days. AMS: R foot cellulitis: Improving Complete course of antibiotic. Blood cultures no growth till date Schizophrenia with auditory hallucinations: Follows with psychiatry Dr. Oneill Has a refocusing word that she says: 'flutterbutz' to remind her of reality. Continue on clozapine. DM2: No Hyper/Hypoglycemia Takes Metformin and Jardiance; Will switch to SSI FSBS ACHS while here GERD: Takes Famotidine; continue Disposition: PCP: Code Status: Code Status. Father is POA VTE Prophylaxis: Lovenox SQ Please note the above document was generated using voice recognition software. It may contain grammatical, syntax or spelling errors. Any formal questions or concerns about the content, text or information contained within the body of this dictation should be directly addressed to the provider for clarification Admission and Anticipated Discharge Date Admission Date: September 09, 2022 Subjective Patient seen and examined at bedside. She is sitting on the chair; she appears more awake and alert. She is able to follow some simple commands. Review of Systems Review of Systems: All systems reviewed & are unremarkable except as noted in Subjective Physical Exam Physical Exam: Constitutional: Awake, opening her eyes. Not in any distress. Gives one-word answers to most questions. Denies any discomfort. Respiratory: normal respiratory effort, lungs clear to auscultation, no wheeze, rales, rhonchi. Normal insp/exp effort, no accessory muscle use Cardiovascular: RRR, no murmur, no edema Vessels: no JVD or carotid bruit Chest: normal inspection of chest Abdomen: Soft, nontender. Musculoskeletal: no cyanosis or clubbing, extremities motor strength 5/5 Skin: no rashes, warm and dry normal turgor Neurologic: PERRL, EOMI, accommodation nl, no face palsy, no dysarthria CN's II- XI intact bilaterally and moves all extremities Psychiatric: Awake, opening her eyes. Not in any distress. Lymphatic: no cervical or axillary lymphadenopathy : deferred Results & Data Results & Data Vital Signs (Past 12 Hours) Vital Signs Temp Pulse Pulse Resp BP Pulse Ox O2 Del Method 09/12/22 11:08 36.6 C 95 H 18 100/70 98 Room Air 09/12/22 06:38 80 09/12/22 07:33 36.7 C 84 20 124/74 95 Room Air 09/12/22 03:33 36.5 C 77 20 122/76 97 Room Air Laboratory Results Laboratory Results WBC 5.24 K/ul (4.8-10.8) 09/12/22 07:00 RBC 5.14 M/uL (4.20-5.40) 09/12/22 07:00 Hgb 15.7 g/dl (12.0-16.0) 09/12/22 07:00 Hct 45.5 % (37.0-47.0) 09/12/22 07:00 MCV 88.5 fL (80.0-100.0) 09/12/22 07:00 MCH 30.5 pg (25.0-34.0) 09/12/22 07:00 MCHC 34.5 g/dL (32.0-36.0) 09/12/22 07:00 RDW Std Deviation 47.1 fL (36.4-46.3) H 09/12/22 07:00 RDW Coeff of Liliana 14.5 % (11.5-14.5) 09/12/22 07:00 Plt Count 140 K/uL (130-400) 09/12/22 07:00 MPV 11.6 fL (9.4-12.4) 09/12/22 07:00 Immature Gran % (Auto) 0.2 % 09/12/22 07:00 Neut % (Auto) 66.8 % 09/12/22 07:00 Lymph % (Auto) 22.7 % 09/12/22 07:00 [place] % (Auto) 9.9 % 09/12/22 07:00 Eos % (Auto) 0.0 % 09/12/22 07:00 Baso % (Auto) 0.4 % 09/12/22 07:00 Neut # (Auto) 3.50 K/uL (1.40-6.50) 09/12/22 07:00 Lymph # (Auto) 1.19 K/uL (1.2-3.4) L 09/12/22 07:00 [place] # (Auto) 0.52 K/uL (0.11-0.59) 09/12/22 07:00 Eos # (Auto) 0.00 K/uL (0-0.50) 09/12/22 07:00 Baso # (Auto) 0.02 K/uL (0-0.2) 09/12/22 07:00 Immature Gran # (Auto) 0.01 K/uL (0.01-0.20) 09/12/22 07:00 PT 10.6 Seconds (9.0-12.0) 09/09/22 08:35 INR 1.0 (0.9-1.1) 09/09/22 08:35 APTT 21.4 Seconds (21.0-31.0) 09/09/22 08:35 PTT Ratio 0.8 09/09/22 08:35 Sodium 140 mmol/L (136-145) 09/12/22 07:00 Potassium 4.0 mmol/L (3.5-5.1) 09/12/22 07:00 Chloride 109 mmol/L (98-107) H 09/12/22 07:00 Carbon Dioxide 24 mmol/L (21-32) 09/12/22 07:00 Anion Gap 7 (3-11) 09/12/22 07:00 BUN 23 mg/dl (6-23) 09/12/22 07:00 Creatinine 0.55 mg/dl (0.6-1.2) L 09/12/22 07:00 Est Cr Clr Drug Dosing 120.6 ml/min 09/12/22 07:00 Est GFR ( Amer) 118.2 ml/min 09/12/22 07:00 Est GFR (Non-Af Amer) 101.9 ml/min 09/12/22 07:00 BUN/Creatinine Ratio 41.8 (10-20) H 09/12/22 07:00 Glucose 141 mg/dl (70-99(Fasting)) H 09/12/22 07:00 POC Glucose 234 mg/dl (70-99) H 09/12/22 11:14 Estimat Average Glucose 128 mg/dl 09/10/22 07:14 Hemoglobin A1c 6.1 % (4.5-5.6) H 09/10/22 07:14 Lactate 1.9 mmol/L (0.4-2.0) 09/09/22 11:06 Calcium 9.0 mg/dl (8.6-10.3) 09/12/22 07:00 Phosphorus 3.1 mg/dl (2.5-4.9) 09/10/22 07:14 Magnesium 1.9 mg/dl (1.7-2.4) 09/10/22 07:14 Total Bilirubin 0.3 mg/dl (0.2-1.0) 09/12/22 07:00 Direct Bilirubin 0.0 mg/dl (0-0.2) 09/09/22 10:08 AST 16 U/L (13-39) 09/12/22 07:00 ALT 16 U/L (7-52) 09/12/22 07:00 Alkaline Phosphatase 111 U/L (34-104) H 09/12/22 07:00 Troponin I High Sens 2.9 pg/ml (0-14) 09/09/22 08:35 Total Protein 6.3 gm/dl (6.0-8.3) 09/12/22 07:00 Albumin 3.8 gm/dl (3.4-5.0) 09/12/22 07:00 Globulin 2.5 gm/dl (2.5-4.0) 09/12/22 07:00 Albumin/Globulin Ratio 1.5 (0.9-2) 09/12/22 07:00 Procalcitonin < 0.05 ng/ml (0-0.5) 09/09/22 08:35 TSH 0.710 uIu/ml (0.300-4.500) 09/09/22 14:52 Urine Color Yellow 09/09/22 10:00 Urine Appearance Clear (Clear) 09/09/22 10:00 Urine pH 6.0 (4.5-7.5) 09/09/22 10:00 Ur Specific [place] 1.012 (1.000-1.030) 09/09/22 10:00 Urine Protein Negative (Negative) 09/09/22 10:00 Urine Glucose (UA) 3+ (Negative) H 09/09/22 10:00 Urine Ketones Negative (Negative) 09/09/22 10:00 Urine Blood Negative (Negative) 09/09/22 10:00 Urine Nitrite Negative (Negative) 09/09/22 10:00 Urine Bilirubin Negative (Negative) 09/09/22 10:00 Urine Urobilinogen Negative (Negative) 09/09/22 10:00 Ur Leukocyte Esterase Negative (Negative) 09/09/22 10:00 Phenytoin 12.6 mcg/ml (10-20) 09/09/22 11:06 SARS-CoV-2 (PCR) NEGATIVE (Negative) 09/09/22 08:40 Influenza Type A (PCR) Negative (Neg) 09/09/22 08:40 Influenza Type B (PCR) Negative (Neg) 09/09/22 08:40 RSV (RT-PCR) Negative (Neg) 09/09/22 08:40 Impressions Chest X-Ray 09/09/22 08:31 SINGLE VIEW CHEST CLINICAL HISTORY: Sepsis. FINDINGS: An AP, portable, upright chest radiograph is compared to study dated 07/02/2022. The cardiomediastinal silhouette is unremarkable. Chronic interstitial thickening is similar to previous. There is mild elevation of the left hemidiaphragm and bibasilar atelectasis. No airspace consolidation or large pleural effusion is identified. No pneumothorax is seen. The skeletal structures are osteopenic. The bony thorax is grossly intact. IMPRESSION: No active disease in the chest. ACT 112: Negative or not required by law. Electronically signed by: Carlos Savage M.D. 09/09/2022 8:[address] 09/09/22 08:31 CT SCAN OF THE BRAIN WITHOUT IV CONTRAST CLINICAL HISTORY: Lethargy COMPARISON STUDY: CT of the brain dated 07/02/2022. TECHNIQUE: Unenhanced axial CT scan of the brain is performed from the vertex to the skull base. A dose lowering technique was utilized adhering to the principles of ALARA. CT DOSE: 614.27 mGy.cm FINDINGS: Brain parenchyma: There is age-related involutional change noting mild subcortical and periventricular microangiopathic disease. There is no hemorrhage, mass effect, or evidence of acute territorial ischemia by CT criteria. Fernandez-white matter differentiation is preserved. No extra-axial fluid collection is seen. Ventricles, sulci, cisterns: Prominent secondary to involutional change. Ventriculomegaly is similar to previous. Intracranial vasculature: There is atherosclerotic calcification of the cavernous carotid arteries. Calvarium: Unremarkable. Sinuses and mastoids: There is mild mucosal thickening in the left maxillary antrum. The remaining visualized paranasal sinuses are clear. The mastoid air cells are well pneumatized. Orbits: The bony orbits are grossly intact. IMPRESSION: 1. There is no hemorrhage, mass effect, or evidence of acute territorial ischemia by CT criteria. 2. Ventriculomegaly is unchanged. ACT 112: Negative or not required by law. Electronically signed by: Carlos Savage M.D. 09/09/2022 9:09 AM Brain MRI 09/09/22 13:59 Brain MRI WITH AND WITHOUT CONTRAST HISTORY: Altered mental status/HO Seizure TECHNIQUE: Multiplanar multisequence MRI of the brain was performed both before and after the intravenous administration of contrast. COMPARISON STUDY: Head CT 09/09/2022. Brain MRI 07/20/2019. FINDINGS: No areas restricted diffusion to suggest acute infarction. The midline structures are intact. Mild mucosal thickening within the ethmoid air cells and left maxillary sinus. The mastoid air cells are clear. The major vascular flow- voids at the skull base are well-maintained. There is no mass, hematoma, or midline shift. The orbits are unremarkable. Moderate ventriculomegaly is not significantly changed. Scattered foci of T2 hyperintensity seen within the periventricular and subcortical white matter of the supratentorial brain are also similar to the prior study. This favors microvascular ischemic changes. No evidence for fernandez matter heterotopia or cortical dysplasia. The temporal lobes appear symmetric. No abnormal enhancement. IMPRESSION: 1. No acute infarct or intracranial hemorrhage. 2. No significant change in the moderate ventriculomegaly. This is nonspecific but raise the possibility of a normal pressure hydrocephalus. 3. Mild microvascular ischemic changes again noted. ACT 112: Negative or not required by law. Electronically signed by: Kendall Sanderson M.D. 09/09/2022 4:51 PM
[2022-09-12] MEDS: ATORVASTATIN 40 MG TAB PO SCH (20:35)
[2022-09-12] MEDS: cloZAPine 100 MG TAB PO SCH (20:36)
[2022-09-13] MEDS: INSULIN ASPART PER UNIT CHARGE SC SCH ×4 (08:37→20:24)
[2022-09-13] MEDS: FLUTICASONE PROPIONATE NA SPR 16 GM BTL SCH (09:26)
[2022-09-13] MEDS: VITAMIN B COMPLEX TAB PO SCH (09:26)
[2022-09-13] MEDS: PHENYTOIN SODIUM ER 100 MG CAP PO SCH ×2 (09:26→20:21)
[2022-09-13] MEDS: OXYBUTYNIN CHLORIDE XL 5 MG TABCR PO SCH (09:27)
[2022-09-13] MEDS: LORATADINE 10 MG TAB PO SCH (09:27)
[2022-09-13] MEDS: FAMOTIDINE 20 MG TAB PO SCH (09:27)
[2022-09-13] MEDS: DOCUSATE SODIUM 100 MG CAP PO SCH ×2 (09:27→20:19)
[2022-09-13] MEDS: HEPARIN SOD 5,000 UNIT/0.5 ML VIAL SQ SCH ×2 (09:30→20:20)
[2022-09-13] MEDS: levETIRAcetam 250 MG TAB PO SCH ×2 (09:50→21:17)
--- NOTE | 2022-09-13 11:52 | Hospitalist Progress Note ---
Date of Service September 13, 2022 Assessment & Plan (1) Generalized weakness: (2) AMS (altered mental status): (3) Diabetes mellitus type 2 in nonobese: (4) Complex partial seizure: (5) Hypertension: (6) Diabetes: Plan 62-year-old presents to the ED with AMS. Patient with history of complex partial seizure and recent dose changes per outpatient neurology. Does not appear toxic. Initial lactate elevated 2.3; down to 1.9 s/p fluid resuscitation. Recent weight 10# weight loss over past month. Currently being tx for r foot cellulitis on Doxy until 09/12. Additional PMH NIDDM2, known heart murmur, schizophrenia with auditory hallucinations, and HLD. Head CT and CXR negative. N oted dose changes with Keppra recently. Dilantin levels normal. AMS: H/O Complex Partial seizure: Patient is a 62-year-old female who presented from [facility] with concern for altered mental status. She has past medical history of complex seizure disorder, schizophrenia, intellectual disability. On presentation; vital stable. Labs reviewed from admission; no significant findings. History of complex partial seizures with last seizure in 2010. Follows up with Dr. Marshall. On Dilantin and Keppra. Keppra dose recently increased to 750 mg daily. Keppra level pending. Dilantin level12.6; within therapeutic range. MRI brain done on admission did not show any acute findings. No significant changes in the moderate ventriculomegaly. EEGabnormal awake/drowsy EEG with evidence of nonspecific encephalopathy of moderate severity. No epileptiform abnormalities. Discussed with Dr. Marshall from neurology on 09/11; he recommended Keppra dose to be decreased back to 250 mg twice daily. Also, Dilantin dose changed to her previous dosing. Patient has been seizure-free since 2010 on s same medications. Patient's mentation continues to improve. He recommended to fo llow-up in 2 to 3 weeks. Discussed with her caregiver at bedside on 09/11; she noted that patient had become more tremulous and lethargic since the increase in the dose of Keppra and Dilantin. She reports that patient 's mentation has improved compared to previous days. AMS: R foot cellulitis: Improving Complete course of antibiotic. Blood cultures no growth till date Schizophrenia with auditory hallucinations: Follows with psychiatry Dr. Oniell Has a refocusing word that she says: 'flutterbutz' to remind her of reality. Continue on clozapine. DM2: No Hyper/Hypoglycemia Takes Metformin and Jardiance; Will switch to SSI FSBS ACHS while here GERD: Takes Famotidine; continue Disposition: PCP: Code Status: Code Status. Father is POA VTE Prophylaxis: Lovenox SQ Disposition; patient appears to be back to her normal mental status. retirement unable to take her back at the present time due to staffing issues. Possible discharge tomorrow a.m. Please note the above document was generated using voice recognition software. It may contain grammatical, syntax or spelling errors. Any formal questions or concerns about the content, text or information contained within the body of this dictation should be directly addressed to the provider for clarification Admission and Anticipated Discharge Date Admission Date: September 09, 2022 Subjective Patient is seen and examined at bedside. She is sitting up on the chair; not in any distress. She is conversing more; appears to have be at her baseline mental status. Review of Systems Review of Systems: All systems reviewed & are unremarkable except as noted in Subjective Physical Exam Physical Exam: Constitutional: Awake, opening her eyes. Not in any distress. Respiratory: normal respiratory effort, lungs clear to auscultation, no wheeze, rales, rhonchi. Normal insp/exp effort, no accessory muscle use Cardiovascular: RRR, no murmur, no edema Vessels: no JVD or carotid bruit Chest: normal inspection of chest Abdomen: Soft, nontender. Musculoskeletal: no cyanosis or clubbing, extremities motor strength 5/5 Skin: no rashes, warm and dry normal turgor Neurologic: PERRL, EOMI, accommodation nl, no face palsy, no dysarthria CN's II- XI intact bilaterally and moves all extremities Psychiatric: Awake, opening her eyes. Not in any distress. Lymphatic: no cervical or axillary lymphadenopathy : deferred Results & Data Results & Data Vital Signs (Past 12 Hours) Vital Signs Temp Pulse Pulse Pulse Resp BP Pulse Ox 09/13/22 11:19 36.5 C 88 14 106/72 98 09/13/22 06:40 72 09/13/22 07:26 36.6 C 78 16 118/74 95 09/13/22 02:12 36.5 C 76 16 149/84 H 98 09/13/22 00:43 70 O2 Del Method 09/13/22 11:19 Room Air 09/13/22 06:40 09/13/22 07:26 Room Air 09/13/22 02:12 Room Air 09/13/22 00:43 Laboratory Results Laboratory Results WBC 5.24 K/ul (4.8-10.8) 09/12/22 07:00 RBC 5.14 M/uL (4.20-5.40) 09/12/22 07:00 Hgb 15.7 g/dl (12.0-16.0) 09/12/22 07:00 Hct 45.5 % (37.0-47.0) 09/12/22 07:00 MCV 88.5 fL (80.0-100.0) 09/12/22 07:00 MCH 30.5 pg (25.0-34.0) 09/12/22 07:00 MCHC 34.5 g/dL (32.0-36.0) 09/12/22 07:00 RDW Std Deviation 47.1 fL (36.4-46.3) H 09/12/22 07:00 RDW Coeff of Liliana 14.5 % (11.5-14.5) 09/12/22 07:00 Plt Count 140 K/uL (130-400) 09/12/22 07:00 MPV 11.6 fL (9.4-12.4) 09/12/22 07:00 Immature Gran % (Auto) 0.2 % 09/12/22 07:00 Neut % (Auto) 66.8 % 09/12/22 07:00 Lymph % (Auto) 22.7 % 09/12/22 07:00 [place] % (Auto) 9.9 % 09/12/22 07:00 Eos % (Auto) 0.0 % 09/12/22 07:00 Baso % (Auto) 0.4 % 09/12/22 07:00 Neut # (Auto) 3.50 K/uL (1.40-6.50) 09/12/22 07:00 Lymph # (Auto) 1.19 K/uL (1.2-3.4) L 09/12/22 07:00 [place] # (Auto) 0.52 K/uL (0.11-0.59) 09/12/22 07:00 Eos # (Auto) 0.00 K/uL (0-0.50) 09/12/22 07:00 Baso # (Auto) 0.02 K/uL (0-0.2) 09/12/22 07:00 Immature Gran # (Auto) 0.01 K/uL (0.01-0.20) 09/12/22 07:00 PT 10.6 Seconds (9.0-12.0) 09/09/22 08:35 INR 1.0 (0.9-1.1) 09/09/22 08:35 APTT 21.4 Seconds (21.0-31.0) 09/09/22 08:35 PTT Ratio 0.8 09/09/22 08:35 Sodium 140 mmol/L (136-145) 09/12/22 07:00 Potassium 4.0 mmol/L (3.5-5.1) 09/12/22 07:00 Chloride 109 mmol/L (98-107) H 09/12/22 07:00 Carbon Dioxide 24 mmol/L (21-32) 09/12/22 07:00 Anion Gap 7 (3-11) 09/12/22 07:00 BUN 23 mg/dl (6-23) 09/12/22 07:00 Creatinine 0.55 mg/dl (0.6-1.2) L 09/12/22 07:00 Est Cr Clr Drug Dosing 120.6 ml/min 09/12/22 07:00 Est GFR ( Amer) 118.2 ml/min 09/12/22 07:00 Est GFR (Non-Af Amer) 101.9 ml/min 09/12/22 07:00 BUN/Creatinine Ratio 41.8 (10-20) H 09/12/22 07:00 Glucose 141 mg/dl (70-99(Fasting)) H 09/12/22 07:00 POC Glucose 234 mg/dl (70-99) H 09/13/22 11:39 Estimat Average Glucose 128 mg/dl 09/10/22 07:14 Hemoglobin A1c 6.1 % (4.5-5.6) H 09/10/22 07:14 Lactate 1.9 mmol/L (0.4-2.0) 09/09/22 11:06 Calcium 9.0 mg/dl (8.6-10.3) 09/12/22 07:00 Phosphorus 3.1 mg/dl (2.5-4.9) 09/10/22 07:14 Magnesium 1.9 mg/dl (1.7-2.4) 09/10/22 07:14 Total Bilirubin 0.3 mg/dl (0.2-1.0) 09/12/22 07:00 Direct Bilirubin 0.0 mg/dl (0-0.2) 09/09/22 10:08 AST 16 U/L (13-39) 09/12/22 07:00 ALT 16 U/L (7-52) 09/12/22 07:00 Alkaline Phosphatase 111 U/L (34-104) H 09/12/22 07:00 Troponin I High Sens 2.9 pg/ml (0-14) 09/09/22 08:35 Total Protein 6.3 gm/dl (6.0-8.3) 09/12/22 07:00 Albumin 3.8 gm/dl (3.4-5.0) 09/12/22 07:00 Globulin 2.5 gm/dl (2.5-4.0) 09/12/22 07:00 Albumin/Globulin Ratio 1.5 (0.9-2) 09/12/22 07:00 Procalcitonin < 0.05 ng/ml (0-0.5) 09/09/22 08:35 TSH 0.710 uIu/ml (0.300-4.500) 09/09/22 14:52 Urine Color Yellow 09/09/22 10:00 Urine Appearance Clear (Clear) 09/09/22 10:00 Urine pH 6.0 (4.5-7.5) 09/09/22 10:00 Ur Specific [place] 1.012 (1.000-1.030) 09/09/22 10:00 Urine Protein Negative (Negative) 09/09/22 10:00 Urine Glucose (UA) 3+ (Negative) H 09/09/22 10:00 Urine Ketones Negative (Negative) 09/09/22 10:00 Urine Blood Negative (Negative) 09/09/22 10:00 Urine Nitrite Negative (Negative) 09/09/22 10:00 Urine Bilirubin Negative (Negative) 09/09/22 10:00 Urine Urobilinogen Negative (Negative) 09/09/22 10:00 Ur Leukocyte Esterase Negative (Negative) 09/09/22 10:00 Phenytoin 12.6 mcg/ml (10-20) 09/09/22 11:06 SARS-CoV-2 (PCR) NEGATIVE (Negative) 09/09/22 08:40 Influenza Type A (PCR) Negative (Neg) 09/09/22 08:40 Influenza Type B (PCR) Negative (Neg) 09/09/22 08:40 RSV (RT-PCR) Negative (Neg) 09/09/22 08:40 Impressions Chest X-Ray 09/09/22 08:31 SINGLE VIEW CHEST CLINICAL HISTORY: Sepsis. FINDINGS: An AP, portable, upright chest radiograph is compared to study dated 07/02/2022. The cardiomediastinal silhouette is unremarkable. Chronic interstitial thickening is similar to previous. There is mild elevation of the left hemidiaphragm and bibasilar atelectasis. No airspace consolidation or large pleural effusion is identified. No pneumothorax is seen. The skeletal structures are osteopenic. The bony thorax is grossly intact. IMPRESSION: No active disease in the chest. ACT 112: Negative or not required by law. Electronically signed by: Carlos Savage M.D. 09/09/2022 8:[address] 09/09/22 08:31 CT SCAN OF THE BRAIN WITHOUT IV CONTRAST CLINICAL HISTORY: Lethargy COMPARISON STUDY: CT of the brain dated 07/02/2022. TECHNIQUE: Unenhanced axial CT scan of the brain is performed from the vertex to the skull base. A dose lowering technique was utilized adhering to the principles of ALARA. CT DOSE: 614.27 mGy.cm FINDINGS: Brain parenchyma: There is age-related involutional change noting mild subcortical and periventricular microangiopathic disease. There is no hemorrhage, mass effect, or evidence of acute territorial ischemia by CT criteria. Fernandez-white matter differentiation is preserved. No extra-axial fluid collection is seen. Ventricles, sulci, cisterns: Prominent secondary to involutional change. Ventriculomegaly is similar to previous. Intracranial vasculature: There is atherosclerotic calcification of the cavernous carotid arteries. Calvarium: Unremarkable. Sinuses and mastoids: There is mild mucosal thickening in the left maxillary antrum. The remaining visualized paranasal sinuses are clear. The mastoid air cells are well pneumatized. Orbits: The bony orbits are grossly intact. IMPRESSION: 1. There is no hemorrhage, mass effect, or evidence of acute territorial ischemia by CT criteria. 2. Ventriculomegaly is unchanged. ACT 112: Negative or not required by law. Electronically signed by: Carlos Savage M.D. 09/09/2022 9:09 AM Brain MRI 09/09/22 13:59 Brain MRI WITH AND WITHOUT CONTRAST HISTORY: Altered mental status/HO Seizure TECHNIQUE: Multiplanar multisequence MRI of the brain was performed both before and after the intravenous administration of contrast. COMPARISON STUDY: Head CT 09/09/2022. Brain MRI 07/20/2019. FINDINGS: No areas restricted diffusion to suggest acute infarction. The midline structures are intact. Mild mucosal thickening within the ethmoid air cells and left maxillary sinus. The mastoid air cells are clear. The major vascular flow- voids at the skull base are well-maintained. There is no mass, hematoma, or midline shift. The orbits are unremarkable. Moderate ventriculomegaly is not significantly changed. Scattered foci of T2 hyperintensity seen within the periventricular and subcortical white matter of the supratentorial brain are also similar to the prior study. This favors microvascular ischemic changes. No evidence for fernandez matter heterotopia or cortical dysplasia. The temporal lobes appear symmetric. No abnormal enhancement. IMPRESSION: 1. No acute infarct or intracranial hemorrhage. 2. No significant change in the moderate ventriculomegaly. This is nonspecific but raise the possibility of a normal pressure hydrocephalus. 3. Mild microvascular ischemic changes again noted. ACT 112: Negative or not required by law. Electronically signed by: Kendall Sanderson M.D. 09/09/2022 4:51 PM
[2022-09-13] MEDS: cloZAPine 100 MG TAB PO SCH (20:19)
[2022-09-13] MEDS: ATORVASTATIN 40 MG TAB PO SCH (20:20)
[2022-09-14] MEDS: INSULIN ASPART PER UNIT CHARGE SC SCH ×2 (08:09→12:18)
[2022-09-14] MEDS: VITAMIN B COMPLEX TAB PO SCH (08:11)
[2022-09-14] MEDS: PHENYTOIN SODIUM ER 100 MG CAP PO SCH (08:11)
[2022-09-14] MEDS: LORATADINE 10 MG TAB PO SCH (08:11)
[2022-09-14] MEDS: FAMOTIDINE 20 MG TAB PO SCH (08:11)
[2022-09-14] MEDS: HEPARIN SOD 5,000 UNIT/0.5 ML VIAL SQ SCH (08:11)
[2022-09-14] MEDS: levETIRAcetam 250 MG TAB PO SCH (08:11)
[2022-09-14] MEDS: DOCUSATE SODIUM 100 MG CAP PO SCH (08:12)
[2022-09-14] MEDS: FLUTICASONE PROPIONATE NA SPR 16 GM BTL SCH (08:12)
[2022-09-14] MEDS: OXYBUTYNIN CHLORIDE XL 5 MG TABCR PO SCH (08:12)
--- NOTE | 2022-09-14 14:24 | Discharge Summary ---
Date of Service September 14, 2022 Admission HPI Per Admitting Provider Ms. Oneill is a 62 year old That presented to the [facility] today with her caregiver from [facility] where she is a permanent resident. Patient has reportedly been slower to respond over the past day and this morning was unarousable per staff. Patient was taken out by CPS yesterday and started to have some shaking followed by a fall for which staff witnessed and reported she fell on her bottom; did not hit her head. Since then she has been slow to respond and more lethargic. Reported weight loss > 10 pounds over past month. Patient with history of complex partial seizure and recent dose changes per outpatient neurology. Does not appear toxic. Initial lactate elevated 2.3; down to 1.9 s/p fluid resuscitation. Recent weight 10# weight loss over past month. Currently being tx for r foot cellulitis on Doxy until 09/12. Additional PMH NIDDM2, known heart murmur, schizophrenia with auditory hallucinations, and HLD. Head CT and CXR negative. Noted dose changes with Keppra recently. Dilantin levels normal. Will obtain MRI and EEG as patient noted to be slower to respond. Pt. follows with Dr. Marshall with Neurology. Last appt 08/24. She was complaining of abdominal distention in May and went to her first GI appointment on 09/08 for which she was diagnosed with esophageal dysphagia and was reportedly to have an EGD over the next month or so. Otherwise, those symptoms had shown improvement. Patient has a past medical history of partial seizures, schizophrenia, diabetes mellitus type 2, depression, known heart murmur, and HLD. On exam, patient is awake, opens her eyes and does answer simple questions with one or two word answers. She does follow commands appropriately. Per caregivers she is able to answer questions appropriately however slowly. At baseline she is able to perform all ADLs independently and does not require any assistive devices for ambulation. Patient will be admitted for further evaluation and management. Please see A/P for further details. Admission Exam Per Admitting Provider Neuro: AAOx4, PERRLA, no aphagia, memory changes, CNII-XII grossly intact HEENT: head normocephalic, moist mucus membranes CV: S1/S2, (-) M/G/R, (-) edema, cap refill < 3 seconds Resp: Lungs CTA in all rios. On RA GI: Abdomen S/NT/ND, Ax4 bowel sounds, (-) CVA tenderness Musculoskeletal: 5/5 B/L UE strength, 5/5 B/L LE strength. No gait disturbance Skin: (-) rashes , (-) erythema. Psych: euthymic mood Principal Diagnosis Altered mental status likely due to seizure medication Right foot cellulitis Discharge Exam Constitutional: Awake, oriented to name, place. Appropriately responds to questions. Not in any distress. Respiratory: normal respiratory effort, lungs clear to auscultation, no wheeze, rales, rhonchi. Normal insp/exp effort, no accessory muscle use Cardiovascular: RRR, no murmur, no edema Vessels: no JVD or carotid bruit Chest: normal inspection of chest Abdomen: Soft, nontender. Musculoskeletal: no cyanosis or clubbing, extremities motor strength 5/5 Skin: no rashes, warm and dry normal turgor Neurologic: PERRL, EOMI, accommodation nl, no face palsy, no dysarthria CN's II- XI intact bilaterally and moves all extremities Psychiatric: Awake, opening her eyes. Not in any distress. Lymphatic: no cervical or axillary lymphadenopathy : deferred Discharge Data Allergies Allergy/AdvReac Type Severity Reaction Status Date / Time divalproex sodium Allergy Unknown Unknown Verified 08/24/22 14:56 [From Depakote] salicylates Allergy Unknown Unknown Verified 08/24/22 14:56 valproic acid Allergy Unknown Unknown Verified 08/24/22 14:56 aspirin AdvReac Severe STOMACH Verified 08/24/22 14:56 ULCER BLEEDING Consultations 09/09/22 13:06 ED Decision to Admit Stat Ordered Studies 09/09/22 08:31 CT head/brain wo con Stat 09/09/22 13:59 MRI Brain [MR brain wo/w con] Routine Hospital Course (1) Generalized weakness: (2) AMS (altered mental status): (3) Diabetes mellitus type 2 in nonobese: (4) Complex partial seizure: (5) Hypertension: (6) Diabetes: Plan 62-year-old presents to the ED with AMS. Patient with history of complex partial seizure and recent dose changes per outpatient neurology. Does not appear toxic. Initial lactate elevated 2.3; down to 1.9 s/p fluid resuscitation. Recent weight 10# weight loss over past month. Additional PMH NIDDM2, known heart murmur, schizophrenia with auditory hallucinations, and HLD. Head CT and CXR negative. Keppra and Dilantin levels were recently changed during her neurology follow-up 2 weeks prior to admission. In the ED, MRI brain was done which did not show any acute findings. EEG was significant for nonspecific encephalopathy of moderate severity. Discussion was done with neurology regarding the medication dosing; her Keppra and Dilantin dose will revert back to her previous dosing. Patient has been seizure-free since 2010 on the same dosing of Keppra and Dilantin. Patient's mentation significantly improved with the change in the dosing of the antiseizure medication. Her mentation was at baseline at the time of the discharge. Patient also received IV ceftriaxone and doxycycline for right foot cellulitis. Patient to follow-up with neurology in 2 to 3 weeks. Please note the above document was generated using voice recognition software. It may contain grammatical, syntax or spelling errors. Any formal questions or concerns about the content, text or information contained within the body of this dictation should be directly addressed to the provider for clarification Total Time Total Time Spent Total Time Spent (In Minutes): 45 Total Time Includes: Examination of the Patient, Discharge Planning, Medication Reconciliation, Communication With Other Providers and Other Discharge Plan Discharge Items Patient Disposition: Transfer Shelter Fac Reason For Visit: AMS Discharge Diagnosis: AMS: H/O Complex Partial seizure: R foot cellulitis: Condition on Discharge: Good Activity: Resume your previous activity Non-emergency contact: Primary Care Provider Call non-emergency contact if: you have any medication questions and your symptoms worsen Follow-up/Referrals: Delmy Jacobsen PA-C [Primary Care Provider] - (Date & Time 09/17/2022 3:00 PM Provider Delmy Jacobsen PA-C Department [facility] ) Diet: Regular Addtl Attending Provider Instructions: You were admitted to the hospital with altered mental status. Discussion was done with neurology; the dose of the Keppra and Dilantin was reverted back to previous dosing. Please take Keppra to 250 mg twice daily. Please take Dilantin 200 mg twice daily. You also completed antibiotic course for right foot cellulitis. Please follow-up with your primary care doctor next week. Pending Studies at Discharge: No Stand-Alone Forms: My [facility] Skilled Items Patient informed of condition?: Yes DNR: No Discharge Level of Care: Other Communicable Disease: No Discharge Prognosis: Improving Lines: None Urinary Catheter: No Medications and DC Order Prescriptions: New levetiracetam [Keppra] 250 mg Tablet 250 mg PO BID Qty: 60 0RF phenytoin sodium extended [Dilantin Extended] 100 mg Capsule 200 mg PO BID Qty: 60 0RF Continued fluticasone propionate 50 mcg/actuation spray,suspension 2 sprays INTNAS QAM loratadine [Allergy Relief (loratadine)] 10 mg tablet 10 mg PO QAM famotidine 20 mg tablet 20 mg PO DAILY Rx Instructions: take 1 tab twice a day for 7 days and then once a day. Jardiance 10 mg tablet 10 mg PO DAILY atorvastatin 40 mg tablet 40 mg PO HS oxybutynin chloride 10 mg tablet extended release 24hr 10 mg PO QAM glimepiride 2 mg tablet 2 mg PO QAM metformin 500 mg tablet extended release 24 hr 1,000 mg PO BID Women's One Daily 18 mg iron-400 mcg-500 mg Ca Tablet 1 tab PO QAM vitamin B complex Tablet 1 tab PO QAM polyethylene glycol 3350 [Miralax] 17 gram powder in packet 17 gm PO QAM ammonium lactate 12 % cream 1 applic TOPICAL QAM Rx Instructions: Apply to feet. docusate sodium [Colace] 100 mg Capsule 100 mg PO BID clozapine 200 mg tablet 600 mg PO HS triamcinolone acetonide 0.1 % cream 1 applic TOPICAL BID PRN (Reason: Rash) Rx Instructions: apply to right buttocks prn rash valacyclovir 500 mg Tablet 500 mg PO DAILY Changed phenytoin sodium extended [Dilantin Extended] 100 mg capsule 200 mg PO BID 90 Days Qty: 540 2RF Discontinued levetiracetam [Keppra] 500 mg tablet 500 mg PO .COMPLEX 90 Days Qty: 180 2RF Rx Instructions: take 1/2 tab ( 250 mg) in am and 1 tab ( 500 mg) in pm Discharge Orders: Discharge Order (Routine); Ordered 09/14/22 Ordered By: Ethan Rollins/Other Patient Handouts: Managing Type 2 Diabetes Admission Data Admit Date/Time: 09/09/22 13:09 Attending Provider: Ethan Nguyen Admit Provider: mC Moreland Primary Care Provider: Delmy Jacobsen Other Providers: Cm Moreland Other Interventions: Discharge Summary Assessment (RN) Last Done: 09/14/22 12:04
== END 2022-09-14 13:48 | disposition home or self-care (01) | DRG 92 ==
LOC: ED 08:11 → 2W 13:09 → SUATTDRO 13:09 → 2W 16:21

== ENCOUNTER 2022-11-10 08:50 | Inpatient (IN) ==
--- NOTE | 2022-11-10 09:04 | Emergency Department Note ---
Impression & Plan Closed hip fracture, Fall ED Provider Note NAME: ORLANDO LESLIE AGE: 62 SEX: F : 1960 ARRIVES VIA: Ambulance INFORMANT: Patient, EMS ED PROVIDER(S): Daniel Alvares DO CHIEF COMPLAINT: Fall HPI: Patient is a 62-year-old female who presents to the ER who notes that she f ell as she was walking this morning without a walker. She fell onto her right knee. Patient has having pain on the right knee. It is worse with movement. Improves with rest. She denies hitting her head. No head or neck pain. No chest pain. No dizziness or lightheadedness. No belly pain. No other weakness or numbness or pain. PAST MEDICAL HISTORY:See Below PAST SURGICAL HISTORY:See Below FAMILY HISTORY:See Below SOCIAL HISTORY:See Below HOME MEDICATIONS:See Below ALLERGIES:See Below VITALS:See Below PHYSICAL EXAMINATION: GENERAL: alert, well appearing, well nourished, no distress, non-toxic HEAD: normal cephalic, atraumatic EYE EXAM: normal conjunctiva, PERRL and EOM's grossly intact OROPHARYNX: mucous membranes are moist CHEST: stable to compression anteriorly and posteriorly LUNGS: clear to auscultation. Normal chest wall mechanics HEART: no murmurs, S1 normal and S2 normal ABDOMEN: abdomen soft, non-tender, normo-active bowel sounds, no masses, no rebound or guarding. PELVIS: stable to compression anteriorly and posteriorly BACK: Back is symmetrical on inspection and there is no deformity, no midline tenderness, no CVA tenderness. UPPER EXTREMITIES: full active and passive range of motion of all joints without tenderness to palpation LOWER EXTREMITIES: full active and passive range of motion of all joints without tenderness to palpation with the exception of the right knee which has faint tenderness with range of motion. Skins intact. NEURO EXAM: Normal sensorium, cranial nerves II-XII grossly intact, normal speech, no gross weakness of arms, no gross weakness of legs. GCS: 15. MEDICAL DECISION MAKING: Patient is a 62-year-old female who presents ER for above-stated complaint. IV was established blood work was obtained. External records reviewed. Labs show no significant leukocytosis or anemia. INR unremarkable. BMP with slightly elevated glucose at 250. LFTs bilirubin was unremarkable. UA was clean. COVID-negative. X-ray of the hip pelvis and knee shows right hip fracture. Patient was updated in regards to the findings. Discussed with Codie Brooks for further evaluation management treatment. She was given IV morphine. She notes this was a mechanical fall and she did not hit her head or neck. Triage Nursing notes reviewed. Limited review of prior medical records performed Vital Signs: reviewed and remarkable for no significant abnormalities Differential diagnosis: Differential diagnoses include major intracranial, cervical, spinal, thoracic, abdominal, pelvic and neurologic injury. Fracture, contusion, sprain, strain, laceration, abrasions included as well. ER treatment provided: See below Diagnostics interpreted by me include EKG and cardiac monitoring as listed below: -Cardiac Monitoring: An order was placed for continuous cardiac monitoring. The monitor shows a rate of 80 with sinus rhythm. -ECG: Sinus rhythm rate of 92 Left axis No PVCs QTc 450 -Laboratory studies:Interpreted by me as stated above in MDM and shown below. Imaging studies: Xrays: As interpreted by me: X-ray of the right hip and pelvis shows an acute right hip fracture CTs show: none Consultation(s): As described in MDM Procedures:none Critical Care: None Past Med/Surg History Medical History Complex partial seizure Depression with anxiety DMII (diabetes mellitus, type 2) Heart murmur HSV (herpes simplex virus) anogenital infection Hypertension Onychomycosis Schizophrenia Surgical History History of colonoscopy Family History Mother Diabetes Other Seizures Social History Smoking Status: Never smoker Hx Alcohol Use: No Hx Substance Use: No Preferred Language: Nepalese Communication Ability: Impaired Communication Ability Comment: Intellectual Disability Visual Impairment: No Limitations Hearing Ability: Normal Bit Tapper Required: No Beliefs That Will Affect Care: None marital status: Single Current Living Situation: Personal Care Facility current occupational status: disabled Feels Safe at Home: Yes Assistive Devices: Other Allergies Allergies Allergy/AdvReac Type Severity Reaction Status Date / Time divalproex sodium Allergy Unknown Unknown Verified 10/19/22 12:20 [From Depakote] salicylates Allergy Unknown Unknown Verified 10/19/22 12:20 valproic acid Allergy Unknown Unknown Verified 10/19/22 12:20 aspirin AdvReac Severe STOMACH Verified 10/19/22 12:20 ULCER BLEEDING Home Meds Home Medications Medication Instructions Recorded Confirmed atorvastatin 40 mg tablet 40 mg PO HS 07/17/18 11/10/22 glimepiride 2 mg tablet 2 mg PO QAM 07/17/18 11/10/22 metformin 500 mg tablet,extended 1,000 mg PO BID 07/17/18 11/10/22 release 24 hr multivit-iron 18 mg-folic acid 400 1 tab PO QAM 07/17/18 11/10/22 mcg-calcium 500 mg-minerals tablet (Women's One Daily) oxybutynin chloride 10 mg 10 mg PO QAM 07/17/18 11/10/22 tablet,extended release 24 hr vitamin B complex 1 tab PO QAM 08/25/18 11/10/22 fluticasone propionate 50 2 sprays intranasal QPM 02/15/19 11/10/22 mcg/actuation nasal spray,suspension loratadine 10 mg tablet (Allergy 10 mg PO QAM 02/15/19 11/10/22 Relief (loratadine)) ammonium lactate 12 % topical cream 1 applic topical QAM 05/21/19 11/10/22 docusate sodium 100 mg capsule 100 mg PO BID 05/21/19 11/10/22 (Colace) triamcinolone acetonide 0.1 % 1 applic topical BID PRN Rash 07/10/21 11/10/22 topical cream famotidine 20 mg tablet 20 mg PO DAILY 08/25/21 11/10/22 clozapine 200 mg tablet 600 mg PO HS 10/31/21 11/10/22 valacyclovir 500 mg tablet 500 mg PO DAILY 02/18/22 11/10/22 food supplemt, lactose-reduced 1 ea PO QAM 10/14/22 11/10/22 glimepiride 1 mg tablet 1 mg PO DIRECTED PRN BSG >300. 10/14/22 11/10/22 empagliflozin 10 mg tablet 25 mg PO DAILY 10/19/22 11/10/22 (Jardiance) polyethylene glycol 3350 17 gram 17 g PO BID 10/19/22 11/10/22 oral powder packet (Miralax) Previous Rx's Medication Instructions Recorded phenytoin sodium extended 100 mg 200 mg PO BID 90 days #540 caps 09/14/22 capsule (Dilantin Extended) levetiracetam 250 mg tablet 250 mg PO BID 90 days #180 tabs 10/15/22 (Keluis carlosra) Results & Data (ED) Vital Signs Vital Signs - 24 hr 11/10/22 08:59 11/10/22 08:59 11/10/22 10:07 Temperature 36.7 C Temperature Source Oral Oral Pulse Rate 95 H Pulse Rate [Right Finger] 80 Respiratory Rate 20 18 Respiratory Effort / Characteristics Non-Labored Respiratory Depth Normal Respiratory Pattern Regular Blood Pressure 159/99 H Blood Pressure [Right Arm] 133/82 Blood Pressure Mean 119 Blood Pressure Mean [Right Arm] 99 Blood Pressure Position Sitting Pulse Oximetry 97 95 Oxygen Delivery Method Room Air Room Air Sepsis Recent Fever Within 48 Hours No Sepsis New/Unexplained Change in Mental Status No Sepsis Action Taken by Nursing No Action Required Laboratory Data 11/10/22 10:00 11/10/22 10:00 Lab Results 11/10/22 11/10/22 11/10/22 Range/Units 10:00 10:00 10:00 WBC 10.58 (4.8-10.8) K/ul RBC 4.85 (4.20-5.40) M/uL Hgb 14.7 (12.0-16.0) g/dl Hct 44.2 (37.0-47.0) % MCV 91.1 (80.0-100.0) fL MCH 30.3 (25.0-34.0) pg MCHC 33.3 (32.0-36.0) g/dL RDW Std Deviation 50.1 H (36.4-46.3) fL RDW Coeff of Liliana 15.0 H (11.5-14.5) % Plt Count 171 (130-400) K/uL MPV 11.7 (9.4-12.4) fL Immature Gran % (Auto) 0.6 % Neut % (Auto) 88.4 % Lymph % (Auto) 5.0 % Chaves % (Auto) 5.8 % Eos % (Auto) 0.0 % Baso % (Auto) 0.2 % Neut # (Auto) 9.36 H (1.40-6.50) K/uL Lymph # (Auto) 0.53 L (1.2-3.4) K/uL Chaves # (Auto) 0.61 H (0.11-0.59) K/uL Eos # (Auto) 0.00 (0-0.50) K/uL Baso # (Auto) 0.02 (0-0.2) K/uL Immature Gran # (Auto) 0.06 (0.01-0.20) K/uL PT 10.7 (9.0-12.0) Seconds INR 1.0 (0.9-1.1) APTT 24.8 (21.0-31.0) Seconds PTT Ratio 0.9 Sodium 136 (136-145) mmol/L Potassium 4.7 (3.5-5.1) mmol/L Chloride 103 (98-107) mmol/L Carbon Dioxide 26 (21-32) mmol/L Anion Gap 7 (3-11) BUN 16 (6-23) mg/dl Creatinine 0.66 (0.6-1.2) mg/dl Est Cr Clr Drug Dosing 82.3 ml/min Est GFR ( Amer) 111.3 ml/min Est GFR (Non-Af Amer) 96.0 ml/min BUN/Creatinine Ratio 24.2 H (10-20) Glucose 250 H (70-99(Fasting)) mg/dl Calcium 9.4 (8.6-10.3) mg/dl Total Bilirubin 0.3 (0.2-1.0) mg/dl AST 32 (13-39) U/L ALT 32 (7-52) U/L Alkaline Phosphatase 128 H (34-104) U/L Total Protein 7.2 (6.0-8.3) gm/dl Albumin 4.2 (3.4-5.0) gm/dl Globulin 3.0 (2.5-4.0) gm/dl Albumin/Globulin Ratio 1.4 (0.9-2) Administered Medications Discontinued Medications Oxycodone HCl (Oxycodone Hcl Ir 5 Mg Tab (Immediate Release)) 5 mg PO NOW STA Stop: 11/10/22 11:11 Last Admin: 11/10/22 11:17 Dose: 5 mg Documented By: ERIS Imaging Data Radiologist's Impression: Knee X-Ray 11/10/22 09:00 XR knee RT 1 or 2V routine CLINICAL HISTORY: Right knee pain following fall. COMPARISON: Right knee radiographs May 21, 2019. FINDINGS: No acute fracture within the right knee is identified. Evaluation is mildly compromised difficulty positioning due to the right hip fracture. No definite right knee joint effusion. No osseous lesion. IMPRESSION: No fracture within the right knee. ACT 112: Negative or not required by law. Electronically signed by: Jose Srinivasan M.D. 11/10/2022 9:55 AM Hip/Pelvis X-Ray 11/10/22 09:28 XR hip RT 2V w pelvis CLINICAL HISTORY: r hip pain TECHNIQUE: 2 views of the right hip and single frontal view of the pelvis were obtained. Comparison: Comparison is made to CT abdomen pelvis 09/29/2022 FINDINGS: There is an acute basocervical/intertrochanteric fracture of the right hip with apex lateral angulation. Degenerative changes are seen in the hip joint. Soft tissue swelling is seen. IMPRESSION: Right femoral neck fracture and associated soft tissue swelling. ACT 112: Negative or not required by law. Electronically signed by: Omari Ramirez M.D. 11/10/2022 9:50 AM Discharge Plan Visit Data Chief Complaint: Fall Stated Complaint: FALL, LEG PAIN ED Provider: Daniel Alvares Discharge Problem: Closed hip fracture, Fall Patient Disposition: Admitted As Inpatient Discharge Instructions Interventions: ED Discharge Assessment Last Done: 11/10/22 13:39
[2022-11-10] MEDS ORDERED: MoRPHine SULFATE 2 MG/ML CARP IV PRN ×2 (09:29→13:55)
[2022-11-10] MEDS ORDERED: MoRPHine SULFATE 4 MG/ML 1 ML CARP\\VIAL IV PRN ×2 (09:29→13:55)
--- NOTE | 2022-11-10 09:51 | XRay Report ---
XR hip RT 2V w pelvis CLINICAL HISTORY: r hip pain TECHNIQUE: 2 views of the right hip and single frontal view of the pelvis were obtained. Comparison: Comparison is made to CT abdomen pelvis 09/29/2022 FINDINGS: There is an acute basocervical/intertrochanteric fracture of the right hip with apex lateral angulati on. Degenerative changes are seen in the hip joint. Soft tissue swelling is seen. IMPRESSION: Right femoral neck fracture and associated soft tissue swelling. ACT 112: Negative or not required by law. Electronically signed by: Omari Ramirez M.D. 11/10/2022 9:50 AM
--- NOTE | 2022-11-10 09:56 | XRay Report ---
XR knee RT 1 or 2V routine CLINICAL HISTORY: Right knee pain following fall. COMPARISON: Right knee radiographs May 21, 2019. FINDINGS: No acute fracture within the right knee is identified. Evaluation is mildly compromised di fficulty positioning due to the right hip fracture. No definite right knee joint effusion. No osseous lesion. IMPRESSION: No fracture within the right knee. ACT 112: Negative or not required by law. Electronically signed by: Jose Srinivasan M.D. 11/10/2022 9:55 AM
[2022-11-10 10:29] LABS: Basophils # (auto) 0.02 K/uL (0-0.2); Basophils % (auto) 0.2 %; Hematocrit (blood only) 44.2 % (37.0-47.0); Hemoglobin 14.7 g/dl (12.0-16.0); Immature Granulocytes # (auto) 0.06 K/uL (0.01-0.20); Immature Granulocytes % (auto) 0.6 %; Lymphocytes # (auto) 0.53 K/uL (1.2-3.4); Mean Corpuscular Hemoglobin 30.3 pg (25.0-34.0); Mean Corpuscular Hgb Conc 33.3 g/dL (32.0-36.0); Mean Corpuscular Volume 91.1 fL (80.0-100.0); Mean Platelet Volume 11.7 fL (9.4-12.4); Monocytes # (auto) 0.61 K/uL (0.11-0.59); Monocytes % (auto) 5.8 %; Neutrophils # (auto) 9.36 K/uL (1.40-6.50); Neutrophils % (auto) 88.4 %; Platelet Count 171 K/uL (130-400); RDW Standard Deviation 50.1 fL (36.4-46.3); Red Blood Count 4.85 M/uL (4.20-5.40); White Blood Count 10.58 K/ul (4.8-10.8)
[2022-11-10 10:36] LABS: Partial Thromboplastin Ratio 0.9; Partial Thromboplastin Time 24.8 Seconds (21.0-31.0); Prothrombin Time 10.7 Seconds (9.0-12.0)
[2022-11-10 10:41] LABS: Albumin Globulin Ratio 1.4 (0.9-2); Albumin Level 4.2 gm/dl (3.4-5.0); BUN Creatinine Ratio 24.2 (10-20); Bilirubin,Total 0.3 mg/dl (0.2-1.0); Calcium 9.4 mg/dl (8.6-10.3); Creatinine Clr Calc Pharmacy 82.3 ml/min; Est GFR (African American) 111.3 ml/min; Potassium 4.7 mmol/L (3.5-5.1); Total Protein 7.2 gm/dl (6.0-8.3)
--- NOTE | 2022-11-10 11:07 | History & Physical Report ---
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 Concern for recent issues with ambulation and reports of dysequilibrium, possibly contributing to this fall. I am concerned about anticholinergic side effects from drugs including loratadine and oxybutinin. Caregiver reports ongoing incontinence issues at night despite taking oxybutinin. Patient denies any allergic rhinitis or other seasonal allergy symptoms. Will discontinue loratadine, flonase, and oxybutinin to see if this improves the issue with balance. UA pending, but will need to rule out infection that may have contributed to fall. No clear infectious symptoms present at this time. Patient typically ambulates with walker and rides a recumbent bike. 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 Denies chest pain, SOB or other symptoms. EKG reviewed with no evidence of acute ischemia. No evidence of heart murmur on exam. Labs reflect well controlled DMII and no evidence of significant CKD which may increase perioperative risk. She denies any h/o blood clots in the past or issues with anesthesia. Holcomb in place and bedrest for now. Narcotics and scheduled Tylenol to help with pain. Recommend proceeding with surgery to fix hip if indicated per Orthopedics. Will keep patient NPO until they can assess her and feed if unable to take her to surgery today. (2) Seizure disorder: Plan: chronic, stable. No seizures in years. Cont current medications. (3) Schizophrenia: Plan: chronic, stable. Patient is not exhibiting paranoia and presents with a positive and engaged affect today. Cont home medications. (4) DMII (diabetes mellitus, type 2): Plan: Chronic, stable and well controlled per last A1C. Hold PO meds and utilize insulin for glucose management while in the hospital. She was updated on this plan. (5) Intellectual delay: Plan: chronic, vulnerable patient and will consider this when performing tasks with her in the hospital. Full Code-confirmed with caregiver on admission. SCDs. Recommend standard DVT prophylaxis post operatively Dipso-to floor DO Jose Armando [facility] History of Present Illness Chief Complaint: fall Primary Care Provider: CHRIS Multani is a 62 yo F with intellectual delay and schizophrenia who presents with a right hip fracture after an unwitnessed fall at home ([employer]). She presents with her caregiver who assists with the story. She was found onthe floor alert by her dresser fully dressed with her shoes on this morning. She is typically allowed to dress herself independently. Past few weeks in and out of ER because of mobility issues. She has been using a walker and staff has noted needing to offer more help over the past 4 weeks or so. Caregiver reports that because her seizure levels were low, her neurologist increased the doses of some of her AEDs and this caused side effects resulting in lowering them back to the original doses. Specifically dilantin was increased to 300mg BID from 200mg BID and Keppra went from 250mg BID to 250/500. She became more lethargic, off balance and sustained at least one fall prompting an ER visit. Caregiver reports ongoing weakness, drowsiness, occasional worsening of known tremors, and mobility issues although these are better since AEDs were changed back to original dose and glucose is under better control. Allergies Allergy/AdvReac Type Severity Reaction Status Date / Time divalproex sodium Allergy Unknown Unknown Verified 10/19/22 12:20 [From Depakote] salicylates Allergy Unknown Unknown Verified 10/19/22 12:20 valproic acid Allergy Unknown Unknown Verified 10/19/22 12:20 aspirin AdvReac Severe STOMACH Verified 10/19/22 12:20 ULCER BLEEDING Home Medications Medication Instructions Recorded Confirmed Type atorvastatin 40 mg tablet 40 mg PO HS 07/17/18 11/10/22 History glimepiride 2 mg tablet 2 mg PO QAM 07/17/18 11/10/22 History metformin 500 mg tablet,extended 1,000 mg PO BID 07/17/18 11/10/22 History release 24 hr multivit-iron 18 mg-folic acid 400 1 tab PO QAM 07/17/18 11/10/22 History mcg-calcium 500 mg-minerals tablet (Women's One Daily) oxybutynin chloride 10 mg 10 mg PO QAM 07/17/18 11/10/22 History tablet,extended release 24 hr vitamin B complex 1 tab PO QAM 08/25/18 11/10/22 History fluticasone propionate 50 2 sprays intranasal QPM 02/15/19 11/10/22 History mcg/actuation nasal spray,suspension loratadine 10 mg tablet (Allergy 10 mg PO QAM 02/15/19 11/10/22 History Relief (loratadine)) ammonium lactate 12 % topical cream 1 applic topical QAM 05/21/19 11/10/22 History docusate sodium 100 mg capsule 100 mg PO BID 05/21/19 11/10/22 History (Colace) triamcinolone acetonide 0.1 % 1 applic topical BID PRN Rash 07/10/21 11/10/22 History topical cream famotidine 20 mg tablet 20 mg PO DAILY 08/25/21 11/10/22 History clozapine 200 mg tablet 600 mg PO HS 10/31/21 11/10/22 History valacyclovir 500 mg tablet 500 mg PO DAILY 02/18/22 11/10/22 History phenytoin sodium extended 100 mg 200 mg PO BID 90 days #540 caps 09/14/22 11/10/22 Rx capsule (Dilantin Extended) food supplemt, lactose-reduced 1 ea PO QAM 10/14/22 11/10/22 History glimepiride 1 mg tablet 1 mg PO DIRECTED PRN BSG >300. 10/14/22 11/10/22 History levetiracetam 250 mg tablet 250 mg PO BID 90 days #180 tabs 10/15/22 11/10/22 Rx (Keppra) empagliflozin 10 mg tablet 25 mg PO DAILY 10/19/22 11/10/22 History (Jardiance) polyethylene glycol 3350 17 gram 17 g PO BID 10/19/22 11/10/22 History oral powder packet (Miralax) Past Med/Surg History Medical History Complex partial seizure Depression with anxiety DMII (diabetes mellitus, type 2) Heart murmur HSV (herpes simplex virus) anogenital infection Hypertension Onychomycosis Schizophrenia Surgical History History of colonoscopy Family History Mother Diabetes Other Seizures Social History Smoking Status: Never smoker Hx Alcohol Use: No Hx Substance Use: No Preferred Language: Maltese Communication Ability: Impaired Communication Ability Comment: Intellectual Disability Visual Impairment: No Limitations Hearing Ability: Normal Grain Spouter Required: No Beliefs That Will Affect Care: None marital status: Single Current Living Situation: Personal Care Facility current occupational status: disabled Feels Safe at Home: Yes Assistive Devices: Other Review of Systems Review of Systems: All systems were reviewed and negative except as indicated above. Physical Exam Physical Exam: CONSTITUTIONAL: WNWD, vitals as above, generally well-appearing, NAD EYES: pupils are round and equal bilaterally, normal conjunctivae, no scleral icterus ENT: external ear and nose normal, oropharynx clear, MMM NECK: trachea midline RESPIRATORY: clear to auscultation bilaterally, no crackles, rales or wheezes, normal respiratory effort CARDIOVASCULAR: regular rate and rhythm, S1 and 2 heard without murmurs, gallops or rubs, no JVD, no peripheral edema CHEST: inspection of chest was normal GASTROINTESTINAL: soft, nontender, ND, no guarding MUSCULOSKELETAL: limited exam on RLE given right hip fracture, otherwise no gross focal deficit. head is normocephalic and atraumatic SKIN: warm and dry NEUROLOGIC: CN 2-12 grossly intact, no sensory deficit, normal cognition, normal speech, no tremor PSYCHIATRIC: alert cooperative and oriented to person, place and time. Euthymic mood, makes good eye contact, language grossly intact, recent and remote memory grossly intact. Intellectual delay is apparent in conversation. Results & Data Results & Data Vital Signs (Past 12 Hours) Vital Signs Temp Pulse Pulse Resp BP BP Pulse Ox 11/10/22 10:07 80 18 133/82 95 11/10/22 08:59 36.7 C 95 H 20 159/99 H 97 O2 Del Method 11/10/22 10:07 Room Air 11/10/22 08:59 Room Air Laboratory Results Short CBC 11/10/22 Range/Units 10:00 WBC 10.58 (4.8-10.8) K/ul Hgb 14.7 (12.0-16.0) g/dl Hct 44.2 (37.0-47.0) % Plt Count 171 (130-400) K/uL BMP 11/10/22 10:00 Sodium 136 Potassium 4.7 Chloride 103 Carbon Dioxide 26 BUN 16 Creatinine 0.66 Glucose 250 H Calcium 9.4 Liver Function 11/10/22 Range/Units 10:00 Total Bilirubin 0.3 (0.2-1.0) mg/dl AST 32 (13-39) U/L ALT 32 (7-52) U/L Alkaline Phosphatase 128 H (34-104) U/L Albumin 4.2 (3.4-5.0) gm/dl Diagnostic Findings Knee X-Ray 11/10/22 09:00 XR knee RT 1 or 2V routine CLINICAL HISTORY: Right knee pain following fall. COMPARISON: Right knee radiographs May 21, 2019. FINDINGS: No acute fracture within the right knee is identified. Evaluation is mildly compromised difficulty positioning due to the right hip fracture. No definite right knee joint effusion. No osseous lesion. IMPRESSION: No fracture within the right knee. ACT 112: Negative or not required by law. Electronically signed by: Jose Srinivasan M.D. 11/10/2022 9:55 AM Hip/Pelvis X-Ray 11/10/22 09:28 XR hip RT 2V w pelvis CLINICAL HISTORY: r hip pain TECHNIQUE: 2 views of the right hip and single frontal view of the pelvis were obtained. Comparison: Comparison is made to CT abdomen pelvis 09/29/2022 FINDINGS: There is an acute basocervical/intertrochanteric fracture of the right hip with apex lateral angulation. Degenerative changes are seen in the hip joint. Soft tissue swelling is seen. IMPRESSION: Right femoral neck fracture and associated soft tissue swelling. ACT 112: Negative or not required by law. Electronically signed by: Omari Ramirez M.D. 11/10/2022 9:50 AM Code Status & VTE Plan VTE Prophylaxis Plan VTE Prophylaxis will be ordered: Yes
[2022-11-10] MEDS ORDERED: oxyCODONE HCL IR 5 MG TAB (IMMEDIATE RELEASE) PO STA (11:10)
--- NOTE | 2022-11-10 12:01 | Orthopedic Consultation ---
Date of Consultation November 10, 2022 Assessment & Plan (1) Closed right hip fracture: Right basicervical/intertrochanteric hip fracture Patient will likely require a right trochanteric femoral nail. Case was [facility] with [facility]. We will plan for right TFN tomorrow afternoon with Dr Morales or Dr Hargrove depending on timing. History of Present Illness Reason for Consultation: Right hip fracture History of Present Illness 62-year-old female who resides at [facility]. Patient with past medical history of Complex partial seizure Depression with anxiety, DMII (diabetes mellitus, type 2), Heart murmur, HSV (herpes simplex virus) anogenital infection, Hypertension, Onychomycosis, Schizophrenia. patient is accompanied by a skin care therapist from [facility]. She is giving most of the history since patient has a history of intellectual delay with her speech. She does answer some questions appropriately. The patient was found on the floor in her room. She is allowed to be independent with changing her clothes. She was having difficulty ambulating and having pain in the right hip. Over the last month, the patient was having some ambulation dysfunction which was felt to be secondary to an increase in some of her seizure medications. These were then put back to their normal dosages. No frequent falls listed. Apparently no loss of consciousness. It was felt the patient should be seen and was brought to the emergency room. X-rays were taken and it was found that she had a basicervical/intertrochanteric hip fracture of the right hip. She is being admitted by the [facility] Hospitalist service and we have been asked to see her for her hip fracture. She currently appears comfortable. Allergies Allergy/AdvReac Type Severity Reaction Status Date / Time divalproex sodium Allergy Unknown Unknown Verified 10/19/22 12:20 [From Depakote] salicylates Allergy Unknown Unknown Verified 10/19/22 12:20 valproic acid Allergy Unknown Unknown Verified 10/19/22 12:20 aspirin AdvReac Severe STOMACH Verified 10/19/22 12:20 ULCER BLEEDING Home Medications Medication Instructions Recorded Confirmed Type atorvastatin 40 mg tablet 40 mg PO HS 07/17/18 11/10/22 History glimepiride 2 mg tablet 2 mg PO QAM 07/17/18 11/10/22 History metformin 500 mg tablet,extended 1,000 mg PO BID 07/17/18 11/10/22 History release 24 hr multivit-iron 18 mg-folic acid 400 1 tab PO QAM 07/17/18 11/10/22 History mcg-calcium 500 mg-minerals tablet (Women's One Daily) oxybutynin chloride 10 mg 10 mg PO QAM 07/17/18 11/10/22 History tablet,extended release 24 hr vitamin B complex 1 tab PO QAM 08/25/18 11/10/22 History fluticasone propionate 50 2 sprays intranasal QPM 02/15/19 11/10/22 History mcg/actuation nasal spray,suspension loratadine 10 mg tablet (Allergy 10 mg PO QAM 02/15/19 11/10/22 History Relief (loratadine)) ammonium lactate 12 % topical cream 1 applic topical QAM 05/21/19 11/10/22 History docusate sodium 100 mg capsule 100 mg PO BID 05/21/19 11/10/22 History (Colace) triamcinolone acetonide 0.1 % 1 applic topical BID PRN Rash 07/10/21 11/10/22 History topical cream famotidine 20 mg tablet 20 mg PO DAILY 08/25/21 11/10/22 History clozapine 200 mg tablet 600 mg PO HS 10/31/21 11/10/22 History valacyclovir 500 mg tablet 500 mg PO DAILY 02/18/22 11/10/22 History phenytoin sodium extended 100 mg 200 mg PO BID 90 days #540 caps 09/14/22 11/10/22 Rx capsule (Dilantin Extended) food supplemt, lactose-reduced 1 ea PO QAM 10/14/22 11/10/22 History glimepiride 1 mg tablet 1 mg PO DIRECTED PRN BSG >300. 10/14/22 11/10/22 History levetiracetam 250 mg tablet 250 mg PO BID 90 days #180 tabs 10/15/22 11/10/22 Rx (Keppra) empagliflozin 10 mg tablet 25 mg PO DAILY 10/19/22 11/10/22 History (Jardiance) polyethylene glycol 3350 17 gram 17 g PO BID 10/19/22 11/10/22 History oral powder packet (Miralax) Patient History Medical History Complex partial seizure Depression with anxiety DMII (diabetes mellitus, type 2) Heart murmur HSV (herpes simplex virus) anogenital infection Hypertension Onychomycosis Schizophrenia Surgical History History of colonoscopy Family History Mother Diabetes Other Seizures Social History Smoking Status: Never smoker Hx Alcohol Use: No Hx Substance Use: No Preferred Language: Senegalese Communication Ability: Impaired Communication Ability Comment: Intellectual Disability Visual Impairment: No Limitations Hearing Ability: Normal Industrial 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 She is in no acute distress. Pleasant and cooperative. On examination of her right lower extremity, it is shortened and externally rotated compared to the left. She has some mild swelling around the anterior knee compared to the left. There is no erythema and she is tender on palpation of her knee. No range of motion is done of the knee secondary to right hip fracture. She has tenderness over the lateral aspect of her right hip on palpation and there is some noted swelling She has good range of motion of her ankle and toes actively Without any apparent pain. Left lower extremity is unaffected and appears to be nontender at the left hip, knee, and ankle. Range of motion intact. She is nontender of the upper extremities at the shoulders, elbows, and wrist. She denies any cervical, thoracic, lumbar pain. Distal pulses are equal bilaterally of the upper and lower extremities. There appears to be no gross motor or sensory loss seen at this time. Results & Data Vital Signs (Past 12 Hours) Vital Signs Temp Pulse Pulse Resp BP BP Pulse Ox 11/10/22 10:07 80 18 133/82 95 11/10/22 08:59 36.7 C 95 H 20 159/99 H 97 O2 Del Method 11/10/22 10:07 Room Air 11/10/22 08:59 Room Air Laboratory Results Laboratory Results WBC 10.58 K/ul (4.8-10.8) 11/10/22 10:00 RBC 4.85 M/uL (4.20-5.40) 11/10/22 10:00 Hgb 14.7 g/dl (12.0-16.0) 11/10/22 10:00 Hct 44.2 % (37.0-47.0) 11/10/22 10:00 MCV 91.1 fL (80.0-100.0) 11/10/22 10:00 MCH 30.3 pg (25.0-34.0) 11/10/22 10:00 MCHC 33.3 g/dL (32.0-36.0) 11/10/22 10:00 RDW Std Deviation 50.1 fL (36.4-46.3) H 11/10/22 10:00 RDW Coeff of Liliana 15.0 % (11.5-14.5) H 11/10/22 10:00 Plt Count 171 K/uL (130-400) 11/10/22 10:00 MPV 11.7 fL (9.4-12.4) 11/10/22 10:00 Immature Gran % (Auto) 0.6 % 11/10/22 10:00 Neut % (Auto) 88.4 % 11/10/22 10:00 Lymph % (Auto) 5.0 % 11/10/22 10:00 [place] % (Auto) 5.8 % 11/10/22 10:00 Eos % (Auto) 0.0 % 11/10/22 10:00 Baso % (Auto) 0.2 % 11/10/22 10:00 Neut # (Auto) 9.36 K/uL (1.40-6.50) H 11/10/22 10:00 Lymph # (Auto) 0.53 K/uL (1.2-3.4) L 11/10/22 10:00 [place] # (Auto) 0.61 K/uL (0.11-0.59) H 11/10/22 10:00 Eos # (Auto) 0.00 K/uL (0-0.50) 11/10/22 10:00 Baso # (Auto) 0.02 K/uL (0-0.2) 11/10/22 10:00 Immature Gran # (Auto) 0.06 K/uL (0.01-0.20) 11/10/22 10:00 PT 10.7 Seconds (9.0-12.0) 11/10/22 10:00 INR 1.0 (0.9-1.1) 11/10/22 10:00 APTT 24.8 Seconds (21.0-31.0) 11/10/22 10:00 PTT Ratio 0.9 11/10/22 10:00 Sodium 136 mmol/L (136-145) 11/10/22 10:00 Potassium 4.7 mmol/L (3.5-5.1) 11/10/22 10:00 Chloride 103 mmol/L (98-107) 11/10/22 10:00 Carbon Dioxide 26 mmol/L (21-32) 11/10/22 10:00 Anion Gap 7 (3-11) 11/10/22 10:00 BUN 16 mg/dl (6-23) 11/10/22 10:00 Creatinine 0.66 mg/dl (0.6-1.2) 11/10/22 10:00 Est Cr Clr Drug Dosing 82.3 ml/min 11/10/22 10:00 Est GFR ( Amer) 111.3 ml/min 11/10/22 10:00 Est GFR (Non-Af Amer) 96.0 ml/min 11/10/22 10:00 BUN/Creatinine Ratio 24.2 (10-20) H 11/10/22 10:00 Glucose 250 mg/dl (70-99(Fasting)) H 11/10/22 10:00 Calcium 9.4 mg/dl (8.6-10.3) 11/10/22 10:00 Total Bilirubin 0.3 mg/dl (0.2-1.0) 11/10/22 10:00 AST 32 U/L (13-39) 11/10/22 10:00 ALT 32 U/L (7-52) 11/10/22 10:00 Alkaline Phosphatase 128 U/L (34-104) H 11/10/22 10:00 Total Protein 7.2 gm/dl (6.0-8.3) 11/10/22 10:00 Albumin 4.2 gm/dl (3.4-5.0) 11/10/22 10:00 Globulin 3.0 gm/dl (2.5-4.0) 11/10/22 10:00 Albumin/Globulin Ratio 1.4 (0.9-2) 11/10/22 10:00 SARS-CoV-2, RNA, NAAT NEGATIVE (NEGATIVE) 11/10/22 10:45 Impressions Knee X-Ray 11/10/22 09:00 XR knee RT 1 or 2V routine CLINICAL HISTORY: Right knee pain following fall. COMPARISON: Right knee radiographs May 21, 2019. FINDINGS: No acute fracture within the right knee is identified. Evaluation is mildly compromised difficulty positioning due to the right hip fracture. No definite right knee joint effusion. No osseous lesion. IMPRESSION: No fracture within the right knee. ACT 112: Negative or not required by law. Electronically signed by: Jose Srinivasan M.D. 11/10/2022 9:55 AM Hip/Pelvis X-Ray 11/10/22 09:28 XR hip RT 2V w pelvis CLINICAL HISTORY: r hip pain TECHNIQUE: 2 views of the right hip and single frontal view of the pelvis were obtained. Comparison: Comparison is made to CT abdomen pelvis 09/29/2022 FINDINGS: There is an acute basocervical/intertrochanteric fracture of the right hip with apex lateral angulation. Degenerative changes are seen in the hip joint. Soft tissue swelling is seen. IMPRESSION: Right femoral neck fracture and associated soft tissue swelling. ACT 112: Negative or not required by law. Electronically signed by: Omari Ramirez M.D. 11/10/2022 9:50 AM
[2022-11-10 12:41] LABS: Appearance Urine Clear (Clear); Bilirubin Urine Negative (Negative); Blood Urine Negative (Negative); Color Urine Dark Yellow; Glucose Urine UA 3+ (Negative); Ketones Urine Negative (Negative); Leukocyte Esterase Urine Negative (Negative); Nitrite Urine Negative (Negative); Protein Urine Negative (Negative); Specific Gravity Urine 1.034 (1.000-1.030); Urobilinogen Urine Negative (Negative); pH Urine 7.5 (4.5-7.5)
[2022-11-10] MEDS ORDERED: oxyCODONE HCL IR 5 MG TAB (IMMEDIATE RELEASE) PO PRN ×2 (13:55)
[2022-11-10] MEDS ORDERED: CARBOHYDRATES FOR HYPOGLYCEMIA PO PRN (13:55)
[2022-11-10] MEDS ORDERED: MAGNESIUM HYDROXIDE SUSP 30 ML UDC PO PRN (13:55)
[2022-11-10] MEDS ORDERED: GLUCAGON FOR INJ 1 MG VIAL SQ PRN (13:55)
[2022-11-10] MEDS ORDERED: bisacodyL 10 MG SUPP PR PRN (13:55)
[2022-11-10] MEDS ORDERED: NALOXONE HCL 0.4 MG/1 ML VIAL/CARP IV PRN (13:55)
[2022-11-10] MEDS ORDERED: DEXTROSE 50% 50 ML SYRINGE IV PRN (13:55)
[2022-11-10] MEDS ORDERED: ONDANSETRON INJ 2 MG/ML 2 ML VIAL IV PRN (13:55)
[2022-11-10] MEDS ORDERED: GLUCOSE 10 TAB/TUBE PO PRN (13:55)
[2022-11-10] MEDS ORDERED: GLUCOSE 40% GEL 15 GM TUBE PO PRN (13:55)
--- NOTE | 2022-11-10 14:21 | Electrocardiogram Report ---
Test Reason : Blood Pressure : / mmHG Vent. Rate : 092 BPM Atrial Rate : 092 BPM P-R Int : 132 ms QRS Dur : 090 ms QT Int : 364 ms P-R-T Axes : 059 -35 027 degrees QTc Int : 450 ms Normal sinus rhythm Left anterior fascicular block Abnormal ECG When compared with ECG of 21-OCT-2022 08:49, No significant change was found Confirmed by Sahil iSmmons ([id number]) on 11/10/2022 2:21:14 PM Referred By: REFERRED SELF Confirmed By:Sahil Simmons
--- NOTE | 2022-11-10 14:34 | Anesthesiology Consultation ---
Date of Service November 10, 2022 Assessment & Plan (1) Encounter for pre-operative examination: Chart Review Chart Review: Acceptable Risk for Surgery History Surgery Operation Date: 11/11/22 07:00 Proposed Procedures p Right Trochanteric Nail - Vince Hargrove DO Height/Weight Height: 5 ft 7 in Weight: 57.5 kg Allergies Allergy/AdvReac Type Severity Reaction Status Date / Time divalproex sodium Allergy Unknown Unknown Verified 10/19/22 12:20 [From Depakote] salicylates Allergy Unknown Unknown Verified 10/19/22 12:20 valproic acid Allergy Unknown Unknown Verified 10/19/22 12:20 aspirin AdvReac Severe STOMACH Verified 10/19/22 12:20 ULCER BLEEDING Medications Home Medications Medication Instructions Recorded Confirmed Last Taken atorvastatin 40 mg tablet 40 mg PO HS 07/17/18 11/10/22 10/13/22 glimepiride 2 mg tablet 2 mg PO QAM 07/17/18 11/10/22 10/14/22 metformin 500 mg tablet,extended 1,000 mg PO BID 07/17/18 11/10/22 10/14/22 08:00 release 24 hr multivit-iron 18 mg-folic acid 400 1 tab PO QAM 07/17/18 11/10/22 10/14/22 mcg-calcium 500 mg-minerals tablet (Women's One Daily) oxybutynin chloride 10 mg 10 mg PO QAM 07/17/18 11/10/22 10/14/22 tablet,extended release 24 hr vitamin B complex 1 tab PO QAM 08/25/18 11/10/22 10/14/22 fluticasone propionate 50 2 sprays intranasal QPM 02/15/19 11/10/22 10/13/22 mcg/actuation nasal spray,suspension loratadine 10 mg tablet (Allergy 10 mg PO QAM 02/15/19 11/10/22 10/14/22 Relief (loratadine)) ammonium lactate 12 % topical cream 1 applic topical QAM 05/21/19 11/10/22 10/14/22 docusate sodium 100 mg capsule 100 mg PO BID 05/21/19 11/10/22 10/14/22 08:00 (Colace) triamcinolone acetonide 0.1 % 1 applic topical BID PRN Rash 07/10/21 11/10/22 10/30/21 topical cream famotidine 20 mg tablet 20 mg PO DAILY 08/25/21 11/10/22 10/14/22 clozapine 200 mg tablet 600 mg PO HS 10/31/21 11/10/22 10/13/22 valacyclovir 500 mg tablet 500 mg PO DAILY 02/18/22 11/10/22 10/14/22 phenytoin sodium extended 100 mg 200 mg PO BID 90 days #540 caps 09/14/22 11/10/22 10/14/22 08:00 capsule (Dilantin Extended) food supplemt, lactose-reduced 1 ea PO QAM 10/14/22 11/10/22 10/14/22 glimepiride 1 mg tablet 1 mg PO DIRECTED PRN BSG >300. 10/14/22 11/10/22 Unknown levetiracetam 250 mg tablet 250 mg PO BID 90 days #180 tabs 10/15/22 11/10/22 Unknown (Keppra) empagliflozin 10 mg tablet 25 mg PO DAILY 10/19/22 11/10/22 Unknown (Jardiance) polyethylene glycol 3350 17 gram 17 g PO BID 10/19/22 11/10/22 Unknown oral powder packet (Miralax) Past Medical History Medical History Complex partial seizure Depression with anxiety DMII (diabetes mellitus, type 2) Heart murmur HSV (herpes simplex virus) anogenital infection Hypertension Onychomycosis Schizophrenia Past Family History Family History Mother Diabetes Other Seizures Past Surgical History Surgical History History of colonoscopy Social History Smoking Status: Never smoker Hx Alcohol Use: No Hx Substance Use: No Physical Exam Vital Signs Last Vital Signs Temp 36.7 C 11/10/22 08:59 Pulse 80 11/10/22 10:07 Resp 18 11/10/22 10:07 BP 133/82 11/10/22 10:07 Pulse Ox 95 11/10/22 10:07 O2 Del Method Room Air 11/10/22 10:07 Testing Laboratory Results 11/10/22 10:00 11/10/22 10:00 PT 10.7 Seconds (9.0-12.0) 11/10/22 10:00 INR 1.0 (0.9-1.1) 11/10/22 10:00 APTT 24.8 Seconds (21.0-31.0) 11/10/22 10:00 Urine Color Dark Yellow 11/10/22 12:10 Urine Appearance Clear (Clear) 11/10/22 12:10 Urine pH 7.5 (4.5-7.5) 11/10/22 12:10 Ur Specific Jackson 1.034 (1.000-1.030) H 11/10/22 12:10 Urine Protein Negative (Negative) 11/10/22 12:10 Urine Glucose (UA) 3+ (Negative) H 11/10/22 12:10 Urine Ketones Negative (Negative) 11/10/22 12:10 Urine Nitrite Negative (Negative) 11/10/22 12:10 Ur Leukocyte Esterase Negative (Negative) 11/10/22 12:10 11/10/22 14:01 POC Glucose 155 H Electrocardiogram Date: 11/10/22 Findings: + NSR @ (92)
[2022-11-10] MEDS: ACETAMINOPHEN 500 MG TAB PO SCH ×2 (14:46→21:37)
[2022-11-10] MEDS: INSULIN ASPART PER UNIT CHARGE SC SCH ×3 (15:09→21:34)
[2022-11-10] MEDS: LANTUS PER UNIT CHARGE SQ SCH (21:33)
[2022-11-10] MEDS: POLYETHYLENE (MIRALAX) 17 GM PACK PO SCH (21:34)
[2022-11-10] MEDS: DOCUSATE SODIUM 100 MG CAP PO SCH (21:36)
[2022-11-10] MEDS: PHENYTOIN SODIUM ER 100 MG CAP PO SCH (21:36)
[2022-11-10] MEDS: cloZAPine 100 MG TAB PO SCH (21:37)
[2022-11-10] MEDS: levETIRAcetam 250 MG TAB PO SCH (21:38)
[2022-11-10] MEDS: ATORVASTATIN 40 MG TAB PO SCH (21:39)
[2022-11-11] MEDS: ACETAMINOPHEN 500 MG TAB PO SCH ×3 (05:08→21:02)
[2022-11-11] MEDS ORDERED: Nursing to Pharmacy Communication SCH (05:15)
[2022-11-11] MEDS ORDERED: ceFAZolin 2000MG 2,000 MG/15 ML SYR IV SCH (06:00)
[2022-11-11] MEDS: INSULIN ASPART PER UNIT CHARGE SC SCH ×3 (06:15→18:02)
[2022-11-11] MEDS: POLYETHYLENE (MIRALAX) 17 GM PACK PO SCH ×2 (07:02→21:02)
[2022-11-11] MEDS: VITAMIN B COMPLEX TAB PO SCH (07:03)
[2022-11-11] MEDS: DOCUSATE SODIUM 100 MG CAP PO SCH ×2 (07:03→21:00)
[2022-11-11 07:52] LABS: Hemoglobin 12.8 g/dl (12.0-16.0); Mean Corpuscular Hemoglobin 30.4 pg (25.0-34.0); Mean Corpuscular Hgb Conc 34.6 g/dL (32.0-36.0); Mean Corpuscular Volume 87.9 fL (80.0-100.0); Mean Platelet Volume 11.3 fL (9.4-12.4); Platelet Count 153 K/uL (130-400); RDW Coefficient of Variation 14.9 % (11.5-14.5); RDW Standard Deviation 48.2 fL (36.4-46.3); Red Blood Count 4.21 M/uL (4.20-5.40); White Blood Count 9.41 K/ul (4.8-10.8)
[2022-11-11] MEDS: PHENYTOIN SODIUM ER 100 MG CAP PO SCH ×2 (07:57→21:01)
[2022-11-11] MEDS: valACYclovir HCL 500 MG TABLET PO SCH (07:57)
[2022-11-11] MEDS: levETIRAcetam 250 MG TAB PO SCH ×2 (07:57→21:00)
[2022-11-11 08:14] LABS: BUN Creatinine Ratio 27.9 (10-20); Calcium 8.5 mg/dl (8.6-10.3); Est GFR (African American) 114.2 ml/min; Est GFR (Non-African American) 98.5 ml/min
[2022-11-11] MEDS: LANTUS PER UNIT CHARGE SQ SCH ×2 (09:39→22:30)
[2022-11-11] MEDS ORDERED: BUPIVACAINE 0.5 % 5 MG/1 ML PF 10ML VIAL ONE (13:15)
[2022-11-11] MEDS ORDERED: MIDAZOLAM HCL 1 MG/ML 2ML VIAL ONE (14:45)
--- NOTE | 2022-11-11 14:52 | Hospitalist Progress Note ---
Date of Service November 11, 2022 Assessment & Plan (1) Closed right hip fracture: (2) Seizure disorder: (3) Schizophrenia: (4) DMII (diabetes mellitus, type 2): (5) Intellectual delay: Plan 62 year old female with intellectual disability and schizophrenia, from [facility], presented with unwitnessed fall and right hip fracture Right hip fracture- imaging reviewed. H&P reviewed. Seen by ortho and plan for surgery today. NPO for the same, DVT ppx on hold for the same. Pain management, bowel regimen. PT OT and chemoppx after surgery Intellectual disability- at baseline Schizophrenia- stable, on clozapine Seizure disorder- chronic stable, no seizure in years. Continue dilantin, keppra Well controlled diabetes mellitus-II- A1c 6.1. Hold home meds. Continue SSI, adjust as indicated. q4hr fingerstick check while npo. resume lantus once eating. DVT ppx- Hold for surgery today. Likely will start sc heparin from tomorrow Dispo- OR today. Will need PT eval and rehab prior to returning to Admission and Anticipated Discharge Date Admission Date: November 10, 2022 Subjective Seen and examined at bedside. Awake, alert, minimally talking, at baseline given her intellectual disability. No fever, shortness of breath, vomiting. Not in distress. Review of Systems Review of Systems: All systems reviewed & are unremarkable except as noted in Subjective Physical Exam Physical Exam: General: Lying comfortably in bed, not in distress, on room air HEENT: [place]IL[place], MMM Chest: Fair breath sounds bilaterally, no wheezes or crackles CVS: Regular rate and rhythm, normal heart sounds, no murmur Abdomen: Soft, non tender, not distended, normal bowel sounds Neuro: Awake, alert, intellectual disability, minimally conversing. She was able to tell her name and date of to me. Extremities: No cyanosis, clubbing or edema Skin: no ecchymoses noted Psych: calm, cooperative, not agitated Results & Data Results & Data Vital Signs (Past 12 Hours) Vital Signs Temp Pulse Resp BP Pulse Ox O2 Del Method 11/11/22 07:29 36.9 C 89 16 107/70 95 Room Air Laboratory Results Short CBC 11/11/22 Range/Units 07:09 WBC 9.41 (4.8-10.8) K/ul Hgb 12.8 (12.0-16.0) g/dl Hct 37.0 (37.0-47.0) % Plt Count 153 (130-400) K/uL BMP 11/11/22 07:09 Sodium 136 Potassium 4.0 Chloride 104 Carbon Dioxide 25 BUN 17 Creatinine 0.61 Glucose 119 H Calcium 8.5 L Medications Administered Current Inpatient Medications Acetaminophen (Acetaminophen 500 Mg Tab) 1,000 mg PO Q8H DELMI Stop: 12/10/22 13:59 Last Admin: 11/11/22 13:20 Dose: Not Given Atorvastatin Calcium (Atorvastatin 40 Mg Tab) 40 mg PO HS DELMI Stop: 12/10/22 20:59 Last Admin: 11/10/22 21:39 Dose: 40 mg Bisacodyl (Bisacodyl 10 Mg Supp) 10 mg MN DAILY PRN PRN Reason: Constipation Stop: 12/10/22 13:54 Clozapine (Clozapine 100 Mg Tab) 600 mg PO HS DELMI Stop: 12/10/22 20:59 Last Admin: 11/10/22 21:37 Dose: 600 mg Dextrose (Dextrose 50% 50 Ml Syringe) 25 - 50 ml IV UD PRN; Protocol PRN Reason: Hypoglycemia Protocol Stop: 12/10/22 13:54 Docusate Sodium (Docusate Sodium 100 Mg Cap) 100 mg PO BID DELMI Stop: 12/10/22 20:59 Last Admin: 11/11/22 07:03 Dose: Not Given Glucagon (Glucagon For Inj 1 Mg Vial) 1 mg SQ UD PRN; Protocol PRN Reason: Hypoglycemia Protocol Stop: 12/10/22 13:54 Glucose (Glucose 10 Tab/Tube) 4 - 8 tab PO UD PRN; Protocol PRN Reason: Hypoglycemia Treatment Stop: 12/10/22 13:54 Glucose (Glucose 40% Gel 15 Gm Tube) 15 - 30 gm PO UD PRN; Protocol PRN Reason: Hypoglycemia Protocol Stop: 12/10/22 13:54 Cefazolin Sodium (Ancef 2000mg) 2,000 mg in 15 mls @ 3.75 mls/min IV PREOP DELMI; Protocol Stop: 11/12/22 05:59 Insulin Aspart (Insulin Aspart Per Unit Charge) 0 units SC Q6 DELMI Stop: 12/11/22 05:59 Last Admin: 11/11/22 11:09 Dose: Not Given Insulin Glargine (Lantus Per Unit Charge) 10 units SQ BID [facility] Stop: 12/10/22 20:59 Last Admin: 11/11/22 09:39 Dose: Not Given Levetiracetam (Levetiracetam 250 Mg Tab) 250 mg PO BID [facility] Stop: 12/10/22 20:59 Last Admin: 11/11/22 07:57 Dose: 250 mg Magnesium Hydroxide (Magnesium Hydroxide Susp 30 Ml Udc) 30 ml PO DAILY PRN PRN Reason: Constipation Stop: 12/10/22 13:54 Miscellaneous (Carbohydrates For Hypoglycemia ) 15 - 30 gm PO UD PRN PRN Reason: Hypoglycemia Protocol Stop: 12/10/22 13:54 Morphine Sulfate (Morphine Sulfate 4 Mg/Ml 1 Ml Carp\Vial) 4 mg IV Q3H PRN PRN Reason: Pain (6,7,8,9,10) Stop: 11/24/22 13:54 Morphine Sulfate (Morphine Sulfate 2 Mg/Ml Carp) 2 mg IV Q3H PRN PRN Reason: Pain (1,2,3,4,5) & Pre PT Stop: 11/24/22 13:54 Naloxone HCl (Naloxone Hcl 0.4 Mg/1 Ml Vial/Carp) 0.1 mg IV UD PRN PRN Reason: Opiate Overdose Stop: 12/10/22 13:54 Ondansetron HCl (Ondansetron Inj 2 Mg/Ml 2 Ml Vial) 4 mg IV Q6H PRN PRN Reason: Nausea And Vomiting Stop: 12/10/22 13:54 Oxycodone HCl (Oxycodone Hcl Ir 5 Mg Tab (Immediate Release)) 10 mg PO Q4H PRN PRN Reason: SEVERE Pain (7,8,9,10) Stop: 11/24/22 13:54 Oxycodone HCl (Oxycodone Hcl Ir 5 Mg Tab (Immediate Release)) 5 mg PO Q4H PRN PRN Reason: MODERATE Pain (4,5,6) & Pre PT Stop: 11/24/22 13:54 Phenytoin Sodium (Phenytoin Sodium Er 100 Mg Cap) 200 mg PO BID [facility] Stop: 12/10/22 20:59 Last Admin: 11/11/22 07:57 Dose: 200 mg Polyethylene Glycol (Polyethylene (Miralax) 17 Gm Pack) 17 gm PO BID [facility] Stop: 12/10/22 20:59 Last Admin: 11/11/22 07:02 Dose: Not Given Valacyclovir HCl (Valacyclovir Hcl 500 Mg Tablet) 500 mg PO DAILY [facility] Stop: 12/11/22 08:59 Last Admin: 11/11/22 07:57 Dose: 500 mg Vitamin B Complex (Vitamin B Complex Tab) 1 tab PO [facility] Stop: 12/11/22 08:59 Last Admin: 11/11/22 07:03 Dose: Not Given
[2022-11-11] MEDS ORDERED: fentaNYL citrate PF 100 MCG/2 ML VIAL IV PRN (16:45)
[2022-11-11] MEDS ORDERED: ONDANSETRON INJ 2 MG/ML 2 ML VIAL IV PRN (16:45)
[2022-11-11] MEDS ORDERED: ePHEDrine sulfate 50 MG/ML AMP IV PRN (16:45)
[2022-11-11] MEDS ORDERED: ATROPINE SULFATE 0.1 MG/ML 10ML SYR IV PRN (16:45)
[2022-11-11] MEDS ORDERED: BUPIVACAINE 0.25% PF 30 ML VIAL ONE (16:46)
[2022-11-11] MEDS ORDERED: PROPOFOL IV EMULSION 10 MG/ML 20 ML VIAL IV ONE (18:00)
[2022-11-11] MEDS ORDERED: PHENYLEPHRINE 100MCG/ML 5ML SYR ONE (18:00)
--- NOTE | 2022-11-11 18:25 | Post Operative Brief Note ---
Immediate Post Op Note v1 Date of Surgery November 11, 2022 Pre & Post Diagnosis Operation Date: 11/11/22 07:00 Pre-Op Diagnosis: Right basicervical/intertrochanteric hip fracture Post-Op Diagnosis: Right basicervical/intertrochanteric hip fracture I identified the patient and participated in the time-out.: Yes Procedure Operation Date: 11/11/22 07:00 Actual Procedures p Right Trochanteric Nail(Right) - Vince Hargrove DO Surgeon Vince Hargrove DO Hot Dip Plater none Estimated Blood Loss 50 Findings Consistent with Post-Op Diagnosis see dictation Drains Holcomb Catheter Complications none
--- NOTE | 2022-11-11 18:59 | Anesthesiology Progress Note ---
Date of Service November 11, 2022 Anesthesia Post Procedure Vital Signs Vital Signs: Temp Pulse Pulse Resp BP Pulse Ox O2 Del Method 11/11/22 18:55 82 13 139/85 98 Room Air 11/11/22 18:45 83 17 138/89 98 Room Air 11/11/22 18:35 85 18 124/76 98 Room Air 11/11/22 18:28 97.3 F L 83 16 133/74 100 Room Air 11/11/22 15:45 98.6 F 92 H 18 136/74 96 Room Air 11/11/22 14:53 97.9 F 88 16 128/80 94 Room Air 11/11/22 07:29 98.4 F 89 16 107/70 95 Room Air 11/10/22 20:41 97.3 F L 79 16 119/54 L 95 Room Air Pain Intensity Right Knee: Pain Intensity: 6 Transfer of Care Handoff Completed per policy Notes Mental Status: alert / awake / arousable and participated in evaluation Patient Amnestic to Procedure: Yes Nausea / Vomiting: adequately controlled Pain: adequately controlled Airway Patency, RR, SpO2: stable & adequate BP & HR: stable & adequate Hydration State: stable & adequate Anesthetic Complications: no major complications apparent and Pt Satisfied with anesthetic care
[2022-11-11] MEDS: SODIUM CHLORIDE 0.9% 1000ML 1,000 ML IV SCH (20:02)
[2022-11-11] MEDS: cloZAPine 100 MG TAB PO SCH (21:00)
[2022-11-11] MEDS: ATORVASTATIN 40 MG TAB PO SCH (21:01)
[2022-11-11] MEDS: APIXABAN 2.5 MG TAB PO SCH (21:01)
--- NOTE | 2022-11-11 22:13 | Fluoroscopy Report ---
FL hip RT 2-3V CLINICAL HISTORY: RT TROCH NAIL TECHNIQUE: 4 views were obtained with the C-arm in the OR with the above procedure. Total fluoroscopy time was 48.3 seconds. Radiation dose was 5.86 mGy. Comparison: Comparison is made to hip radiograph 11/10/2022 FINDINGS/IMPRESSION: Intraoperative images were obtained of right trochanteric nail placement Please correlate with intraoperative fluoroscopy and operative report. ACT 112: Negative or not required by law. Electronically signed by: Omari Ramirez M.D. 11/11/2022 10:12 PM
[2022-11-11] MEDS: ceFAZolin 2000MG 2,000 MG/15 ML SYR IV SCH (23:57)
[2022-11-12] MEDS: INSULIN ASPART PER UNIT CHARGE SC SCH ×6 (00:46→21:40)
[2022-11-12] MEDS: ACETAMINOPHEN 500 MG TAB PO SCH ×3 (05:53→21:38)
[2022-11-12 06:20] LABS: Basophils # (auto) 0.02 K/uL (0-0.2); Basophils % (auto) 0.2 %; Hematocrit (blood only) 33.7 % (37.0-47.0); Hemoglobin 11.9 g/dl (12.0-16.0); Immature Granulocytes # (auto) 0.03 K/uL (0.01-0.20); Immature Granulocytes % (auto) 0.3 %; Lymphocytes % (auto) 6.7 %; Mean Corpuscular Hemoglobin 30.6 pg (25.0-34.0); Mean Corpuscular Hgb Conc 35.3 g/dL (32.0-36.0); Mean Corpuscular Volume 86.6 fL (80.0-100.0); Mean Platelet Volume 10.9 fL (9.4-12.4); Monocytes # (auto) 0.95 K/uL (0.11-0.59); Monocytes % (auto) 10.5 %; Neutrophils # (auto) 7.42 K/uL (1.40-6.50); Neutrophils % (auto) 82.3 %; Platelet Count 147 K/uL (130-400); RDW Coefficient of Variation 14.6 % (11.5-14.5); RDW Standard Deviation 46.2 fL (36.4-46.3); Red Blood Count 3.89 M/uL (4.20-5.40); White Blood Count 9.02 K/ul (4.8-10.8)
[2022-11-12] MEDS: SODIUM CHLORIDE 0.9% 1000ML 1,000 ML IV SCH (06:36)
[2022-11-12 06:53] LABS: Calcium 8.5 mg/dl (8.6-10.3); Creatinine Clr Calc Pharmacy 110.5 ml/min; Est GFR (African American) 121.9 ml/min; Est GFR (Non-African American) 105.2 ml/min; Magnesium 1.9 mg/dl (1.7-2.4); Phosphorus 3.2 mg/dl (2.5-4.9); Potassium 3.8 mmol/L (3.5-5.1)
--- NOTE | 2022-11-12 07:01 | Operative Report ---
Post Operative Report Pre & Post Diagnosis Operation Date: 11/11/22 07:00 Pre-Op Diagnosis: Right basicervical/intertrochanteric hip fracture Post-Op Diagnosis: Right basicervical/intertrochanteric hip fracture I identified the patient and participated in the time-out.: Yes Procedure Operation Date: 11/11/22 07:00 Actual Procedures p Right Trochanteric Nail(Right) - Vince Hargrove DO Surgeon Vince Hargrove DO Ground Layer none Estimated Blood Loss 50 Findings Consistent with Post-Op Diagnosis See dictation Specimens None Complications None Indications 62-year-old female presenting to the emergency department after sustaining a ground-level fall onto her right side. Immediate pain was noted in deformity was noted. The emergency department radiographs were obtained demonstrating a displaced right intertrochanteric fracture. Patient was admitted to medical service and orthopedics was consulted for operative management. Preoperatively had a lengthy discussion with her about estate attorney regarding response potential complications of shelter. After reviewing these telephone consent was obtained. Description of Procedure Implants: Synthes TFNA right 10 mm x 170 mm 130 deg, 100 mm fenestrated screw, 5 mm x 34 mm locking screw Procedure: Patient was appropriate Holding area in the right lower extremity. He was then taken back to the operative suite where she received anesthesia. She received antibiotics per protocol. She was then transferred to the fracture table using assistance of the fracture table with fluoroscopy the fracture was reduced in anatomic position. Patient was then prepped and draped in the standard orthopedic fashion a timeout was performed. A 3 incision superior to the tip of the trochanter is in the subcutaneous tissue and gluteal fascia threaded guidewire was then inserted into the trochanter and advanced into the medullary canal. Its position was called on a lateral fluoroscopy. Counting reamer was then used to open the canal proximally. A 10 mm x 170 mm was then inserted and the guidewire removed. Proximal outrigger was then attached and incision made for the lag screw through the skin subcutaneous tissue and IT band fascia. Guide was then inserted down to bone and thread guidewire was advanced through the lateral cortex to the femoral head was then positioned distally in the subchondral bone. Length was then measured and 100 mL was selected. Lateral cortical reamer was first used followed by tapered reamers up to 100 mm. A 100 mm fenestrated lag screw was then inserted and compressed and locked statically at proximal aspect. This provided excellent compression of the fracture site. Attention was then turned to the distal interlock. Incision was made through skin subcutaneous tissue and fascia. There was a suture bicortically and a 34 mm locking screw was then inserted. Proximal outrigger was then removed. Final radiographs were obtained demonstrating excellent reduction of the fracture and positioning of the implant. Wounds were then copiously irrigated using normal saline solution. The fascia was closed using 0 Vicryl followed by 2-0 Vicryl for subcutaneous tissue and stephan for skin sterile dressings of Xeroform 4 x 4 gauze and OpSite were then applied. Patient was taken recovery room in hemodynamically stable condition. I attest to the content of the Intraoperative Record and any orders documented therein. Any exceptions are noted below.
--- NOTE | 2022-11-12 07:56 | Orthopedic Progress Note ---
Date of Service November 12, 2022 Assessment & Plan (1) Closed hip fracture: Plan: Postop day #1 right trochanteric femoral nail -PT/OT: Weightbearing as tolerated -DVT prophylaxis: SCDs, Eliquis twice daily -AM labs: Hemoglobin dropped to 11.8 from 12.9 yesterday and 14.7 on admission. Acute blood loss anemia due to surgical loss/loss from the fracture versus dilutional. -Pain management as written -Discharge planning: Likely will need rehab/SNF at discharge when stable. Admission and Anticipated Discharge Date Admission Date: November 10, 2022 Subjective Patient is sleeping on my arrival. She is easily awoken, does not answer all questions. She does follow commands. Does not appear to be in any acute distress. Review of Systems Review of Systems: Unobtainable due to cognitive status Physical Exam Physical Exam: Right hip: Dressings are clean, dry, intact. Compartments are soft and compressible. No calf tenderness. Toes are mobile. Constitutional: WD/WN, vitals as above Results & Data Vital Signs (Past 12 Hours) Vital Signs Temp Pulse Resp BP Pulse Ox O2 Del Method 11/12/22 07:27 36.5 C 104 H 16 112/68 95 Room Air 11/12/22 03:06 37.6 C H 95 H 18 123/71 97 Room Air 11/11/22 20:00 Room Air 11/11/22 22:02 37.5 C 99 H 18 156/79 H 95 Room Air 11/11/22 20:40 36.3 C L 94 H 18 191/77 H 100 Room Air 11/11/22 20:15 36.3 C L 98 H 18 148/82 H 97 Room Air
[2022-11-12] MEDS: ceFAZolin 2000MG 2,000 MG/15 ML SYR IV SCH (08:24)
[2022-11-12] MEDS: DOCUSATE SODIUM 100 MG CAP PO SCH ×2 (08:25→21:38)
[2022-11-12] MEDS: VITAMIN B COMPLEX TAB PO SCH (08:25)
[2022-11-12] MEDS: PHENYTOIN SODIUM ER 100 MG CAP PO SCH ×2 (08:25→21:39)
[2022-11-12] MEDS: valACYclovir HCL 500 MG TABLET PO SCH (08:25)
[2022-11-12] MEDS: APIXABAN 2.5 MG TAB PO SCH ×2 (08:25→21:39)
[2022-11-12] MEDS: levETIRAcetam 250 MG TAB PO SCH ×2 (08:25→21:39)
[2022-11-12] MEDS: POLYETHYLENE (MIRALAX) 17 GM PACK PO SCH ×2 (08:26→21:40)
[2022-11-12] MEDS: LANTUS PER UNIT CHARGE SQ SCH ×2 (08:33→21:40)
--- NOTE | 2022-11-12 17:05 | Hospitalist Progress Note ---
Date of Service November 12, 2022 Assessment & Plan (1) Closed right hip fracture: (2) Seizure disorder: (3) Schizophrenia: (4) DMII (diabetes mellitus, type 2): (5) Intellectual delay: Plan 62 year old female with intellectual disability and schizophrenia, from [employer] [facility], presented with unwitnessed fall and right hip fracture Right hip fracture s/p right trochanteric nail by Dr Hargrove 11/11. Postop period unremarkable. Vitals and labs stable. Pain controlled. Started on eliquis 2.5 bid for DVT ppx per ortho. PT OT eval Intellectual disability- at baseline Schizophrenia- stable, on clozapine Seizure disorder- chronic stable, no seizure in years. Continue dilantin, keppra Well controlled diabetes mellitus-II- A1c 6.1. continue lantus, SSI. Adjust as indicated DVT ppx- Eliquis Dispo- PT OT eval and rehab prior to returning to Admission and Anticipated Discharge Date Admission Date: November 10, 2022 Subjective Patient was seen and examined at bedside. She is at her baseline. Awake alert sitting in chair, comfortable, answering simple questions with couple words. No fever, chills, chest pain or shortness of breath nausea or vomiting Review of Systems Review of Systems: All systems reviewed & are unremarkable except as noted in Subjective Physical Exam Physical Exam: General: Sitting comfortably in chair, not in distress, on room air HEENT: WILBUR, MMM Chest: Fair breath sounds bilaterally, no wheezes or crackles CVS: Regular rate and rhythm, normal heart sounds, no murmur Abdomen: Soft, non tender, not distended, normal bowel sounds Neuro: Awake, alert, intellectual disability, minimally conversing. Extremities: No cyanosis, clubbing or edema MSK: Left hip incision site covered with dressing, clean and dry Psych: calm, cooperative, not agitated Results & Data Results & Data Vital Signs (Past 12 Hours) Vital Signs Temp Pulse Resp BP Pulse Ox O2 Del Method 11/12/22 15:22 36.6 C 92 H 16 124/79 96 Room Air 11/12/22 07:27 36.5 C 104 H 16 112/68 95 Room Air Laboratory Results Short CBC 11/12/22 Range/Units 05:51 WBC 9.02 (4.8-10.8) K/ul Hgb 11.9 L (12.0-16.0) g/dl Hct 33.7 L (37.0-47.0) % Plt Count 147 (130-400) K/uL BMP 11/12/22 05:51 Sodium 134 L Potassium 3.8 Chloride 102 Carbon Dioxide 23 BUN 13 Creatinine 0.50 L Glucose 137 H Calcium 8.5 L Medications Administered Current Inpatient Medications Acetaminophen (Acetaminophen 500 Mg Tab) 1,000 mg PO Q8H DELMI Stop: 12/10/22 13:59 Last Admin: 11/12/22 14:17 Dose: 1,000 mg Apixaban (Apixaban 2.5 Mg Tab) 2.5 mg PO BID DELMI Stop: 12/11/22 20:59 Last Admin: 11/12/22 08:25 Dose: 2.5 mg Atorvastatin Calcium (Atorvastatin 40 Mg Tab) 40 mg PO HS [facility] Stop: 12/10/22 20:59 Last Admin: 11/11/22 21:01 Dose: 40 mg Bisacodyl (Bisacodyl 10 Mg Supp) 10 mg OR DAILY PRN PRN Reason: Constipation Stop: 12/10/22 13:54 Clozapine (Clozapine 100 Mg Tab) 600 mg PO HS DELMI Stop: 12/10/22 20:59 Last Admin: 11/11/22 21:00 Dose: 600 mg Dextrose (Dextrose 50% 50 Ml Syringe) 25 - 50 ml IV UD PRN; Protocol PRN Reason: Hypoglycemia Protocol Stop: 12/10/22 13:54 Docusate Sodium (Docusate Sodium 100 Mg Cap) 100 mg PO BID DELMI Stop: 12/10/22 20:59 Last Admin: 11/12/22 08:25 Dose: 100 mg Glucagon (Glucagon For Inj 1 Mg Vial) 1 mg SQ UD PRN; Protocol PRN Reason: Hypoglycemia Protocol Stop: 12/10/22 13:54 Glucose (Glucose 10 Tab/Tube) 4 - 8 tab PO UD PRN; Protocol PRN Reason: Hypoglycemia Treatment Stop: 12/10/22 13:54 Glucose (Glucose 40% Gel 15 Gm Tube) 15 - 30 gm PO UD PRN; Protocol PRN Reason: Hypoglycemia Protocol Stop: 12/10/22 13:54 Sodium Chloride (Nss 1000ml) 1,000 mls @ 80 mls/hr IV .[id number] DELMI Stop: 11/12/22 19:29 Last Admin: 11/12/22 06:36 Dose: 80 mls/hr Insulin Aspart (Insulin Aspart Per Unit Charge) 0 units SC ACHS [facility] Stop: 12/12/22 07:29 Last Admin: 11/12/22 12:35 Dose: 1 units Insulin Glargine (Lantus Per Unit Charge) 10 units SQ BID [facility] Stop: 12/10/22 20:59 Last Admin: 11/12/22 08:33 Dose: 10 units Levetiracetam (Levetiracetam 250 Mg Tab) 250 mg PO BID [facility] Stop: 12/10/22 20:59 Last Admin: 11/12/22 08:25 Dose: 250 mg Magnesium Hydroxide (Magnesium Hydroxide Susp 30 Ml Udc) 30 ml PO DAILY PRN PRN Reason: Constipation Stop: 12/10/22 13:54 Miscellaneous (Carbohydrates For Hypoglycemia ) 15 - 30 gm PO UD PRN PRN Reason: Hypoglycemia Protocol Stop: 12/10/22 13:54 Morphine Sulfate (Morphine Sulfate 4 Mg/Ml 1 Ml Carp\Vial) 4 mg IV Q3H PRN PRN Reason: Pain (6,7,8,9,10) Stop: 11/24/22 13:54 Morphine Sulfate (Morphine Sulfate 2 Mg/Ml Carp) 2 mg IV Q3H PRN PRN Reason: Pain (1,2,3,4,5) & Pre PT Stop: 11/24/22 13:54 Naloxone HCl (Naloxone Hcl 0.4 Mg/1 Ml Vial/Carp) 0.1 mg IV UD PRN PRN Reason: Opiate Overdose Stop: 12/10/22 13:54 Ondansetron HCl (Ondansetron Inj 2 Mg/Ml 2 Ml Vial) 4 mg IV Q6H PRN PRN Reason: Nausea And Vomiting Stop: 12/10/22 13:54 Oxycodone HCl (Oxycodone Hcl Ir 5 Mg Tab (Immediate Release)) 10 mg PO Q4H PRN PRN Reason: SEVERE Pain (7,8,9,10) Stop: 11/24/22 13:54 Oxycodone HCl (Oxycodone Hcl Ir 5 Mg Tab (Immediate Release)) 5 mg PO Q4H PRN PRN Reason: MODERATE Pain (4,5,6) & Pre PT Stop: 11/24/22 13:54 Phenytoin Sodium (Phenytoin Sodium Er 100 Mg Cap) 200 mg PO BID [facility] Stop: 12/10/22 20:59 Last Admin: 11/12/22 08:25 Dose: 200 mg Polyethylene Glycol (Polyethylene (Miralax) 17 Gm Pack) 17 gm PO BID DELMI Stop: 12/10/22 20:59 Last Admin: 11/12/22 08:26 Dose: 17 gm Valacyclovir HCl (Valacyclovir Hcl 500 Mg Tablet) 500 mg PO DAILY [facility] Stop: 12/11/22 08:59 Last Admin: 11/12/22 08:25 Dose: 500 mg Vitamin B Complex (Vitamin B Complex Tab) 1 tab PO QAM [facility] Stop: 12/11/22 08:59 Last Admin: 11/12/22 08:25 Dose: 1 tab
[2022-11-12] MEDS: ATORVASTATIN 40 MG TAB PO SCH (21:40)
[2022-11-12] MEDS: cloZAPine 100 MG TAB PO SCH (21:40)
[2022-11-13] MEDS: ACETAMINOPHEN 500 MG TAB PO SCH ×3 (06:04→20:31)
[2022-11-13 07:12] LABS: Hematocrit (blood only) 33.3 % (37.0-47.0); Hemoglobin 11.7 g/dl (12.0-16.0); Mean Corpuscular Hemoglobin 30.9 pg (25.0-34.0); Mean Corpuscular Hgb Conc 35.1 g/dL (32.0-36.0); Mean Corpuscular Volume 87.9 fL (80.0-100.0); Mean Platelet Volume 11.6 fL (9.4-12.4); Platelet Count 153 K/uL (130-400); RDW Coefficient of Variation 14.9 % (11.5-14.5); RDW Standard Deviation 47.8 fL (36.4-46.3); Red Blood Count 3.79 M/uL (4.20-5.40); White Blood Count 11.21 K/ul (4.8-10.8)
[2022-11-13 07:22] LABS: BUN Creatinine Ratio 37.2 (10-20); Calcium 8.4 mg/dl (8.6-10.3); Creatinine Clr Calc Pharmacy 128.5 ml/min; Est GFR (African American) 128.1 ml/min; Est GFR (Non-African American) 110.6 ml/min; Potassium 3.7 mmol/L (3.5-5.1)
[2022-11-13] MEDS: VITAMIN B COMPLEX TAB PO SCH (08:17)
[2022-11-13] MEDS: PHENYTOIN SODIUM ER 100 MG CAP PO SCH ×2 (08:17→20:30)
[2022-11-13] MEDS: APIXABAN 2.5 MG TAB PO SCH ×2 (08:17→20:29)
[2022-11-13] MEDS: levETIRAcetam 250 MG TAB PO SCH ×2 (08:17→20:30)
[2022-11-13] MEDS: valACYclovir HCL 500 MG TABLET PO SCH (08:17)
[2022-11-13] MEDS: POLYETHYLENE (MIRALAX) 17 GM PACK PO SCH ×2 (08:18→20:29)
[2022-11-13] MEDS: DOCUSATE SODIUM 100 MG CAP PO SCH ×2 (08:18→20:30)
[2022-11-13] MEDS: INSULIN ASPART PER UNIT CHARGE SC SCH ×4 (08:30→21:14)
[2022-11-13] MEDS: LANTUS PER UNIT CHARGE SQ SCH ×2 (08:30→21:15)
--- NOTE | 2022-11-13 10:50 | Orthopedic Progress Note ---
Date of Service November 13, 2022 Assessment & Plan (1) Closed hip fracture: Plan: Postop day 2 right trochanteric femoral nail -PT/OT: Weightbearing as tolerated -DVT prophylaxis: SCDs, Eliquis twice daily -AM labs: as below. -Pain management as written -Discharge planning: Likely will need rehab/SNF at discharge when stable. Orthopedics will sign off at this time. Discharge instructions have been placed in the DC section. Please call with any questions. Admission and Anticipated Discharge Date Admission Date: November 10, 2022 Subjective Postop day 2 Patient sleeping upon entering the room. Easily awoken but goes back to sleep quickly. Appears comfortable. Physical Exam Physical Exam: Dressings are clean, dry, and intact. Thigh with mild swelling consistent with surgery. Calves appear soft, nontender. Results & Data Vital Signs (Past 12 Hours) Vital Signs Temp Pulse Resp BP Pulse Ox O2 Del Method 11/13/22 07:41 36.5 C 110 H 16 118/62 95 Room Air Laboratory Results 11/13/22 11/13/22 11/13/22 Range/Units 08:04 06:29 06:29 WBC 11.21 H (4.8-10.8) K/ul RBC 3.79 L (4.20-5.40) M/uL Hgb 11.7 L (12.0-16.0) g/dl Hct 33.3 L (37.0-47.0) % MCV 87.9 (80.0-100.0) fL MCH 30.9 (25.0-34.0) pg MCHC 35.1 (32.0-36.0) g/dL RDW Std Deviation 47.8 H (36.4-46.3) fL RDW Coeff of Liliana 14.9 H (11.5-14.5) % Plt Count 153 (130-400) K/uL MPV 11.6 (9.4-12.4) fL Sodium 135 L (136-145) mmol/L Potassium 3.7 (3.5-5.1) mmol/L Chloride 104 (98-107) mmol/L Carbon Dioxide 21 (21-32) mmol/L Anion Gap 10 (3-11) BUN 16 (6-23) mg/dl Creatinine 0.43 L (0.6-1.2) mg/dl Est Cr Clr Drug Dosing 128.5 ml/min Est GFR ( Amer) 128.1 ml/min Est GFR (Non-Af Amer) 110.6 ml/min BUN/Creatinine Ratio 37.2 H (10-20) Glucose 121 H (70-99(Fasting)) mg/dl POC Glucose 125 H (70-99) mg/dl Calcium 8.4 L (8.6-10.3) mg/dl 11/12/22 11/12/22 11/12/22 Range/Units 20:50 17:15 11:49 WBC (4.8-10.8) K/ul RBC (4.20-5.40) M/uL Hgb (12.0-16.0) g/dl Hct (37.0-47.0) % MCV (80.0-100.0) fL MCH (25.0-34.0) pg MCHC (32.0-36.0) g/dL RDW Std Deviation (36.4-46.3) fL RDW Coeff of Liliana (11.5-14.5) % Plt Count (130-400) K/uL MPV (9.4-12.4) fL Sodium (136-145) mmol/L Potassium (3.5-5.1) mmol/L Chloride (98-107) mmol/L Carbon Dioxide (21-32) mmol/L Anion Gap (3-11) BUN (6-23) mg/dl Creatinine (0.6-1.2) mg/dl Est Cr Clr Drug Dosing ml/min Est GFR ( Amer) ml/min Est GFR (Non-Af Amer) ml/min BUN/Creatinine Ratio (10-20) Glucose (70-99(Fasting)) mg/dl POC Glucose 147 H 135 H 155 H (70-99) mg/dl Calcium (8.6-10.3) mg/dl
--- NOTE | 2022-11-13 12:13 | XRay Report ---
XR chest 2V PA/lateral CLINICAL HISTORY: r/o PNA COMPARISON STUDY: Chest radiograph October 21, 2022. FINDINGS: Elevation of the left hemidiaphragm is unchanged. There is no pneumothorax or pleural effus ion. No consolidation is identified. Minimal left basilar opacity favors atelectasis. There is no víctor dence for overt pulmonary edema. IMPRESSION: No definite consolidation to suggest pneumonia. Mild left basilar opacity which favors at electasis. ACT 112: Negative or not required by law. Electronically signed by: Jose Srinivasan M.D. 11/13/2022 12:12 PM
[2022-11-13 13:26] LABS: Appearance Urine Clear (Clear); Bacteria Urine Automated Negative (Negative); Bilirubin Urine Negative (Negative); Blood Urine Negative (Negative); Color Urine Dark Yellow; Glucose Urine UA 3+ (Negative); Ketones Urine 3+ (Negative); Leukocyte Esterase Urine Negative (Negative); Nitrite Urine Negative (Negative); Protein Urine 1+ (Negative); RBC Urine Automated 0-4 /hpf (0-4); Specific Gravity Urine 1.042 (1.000-1.030); Urobilinogen Urine Negative (Negative); pH Urine 5.5 (4.5-7.5)
--- NOTE | 2022-11-13 15:56 | Hospitalist Progress Note ---
Date of Service November 13, 2022 Assessment & Plan (1) Closed right hip fracture: (2) Seizure disorder: (3) Schizophrenia: (4) DMII (diabetes mellitus, type 2): (5) Intellectual delay: Plan 62 year old female with intellectual disability and schizophrenia, from [place], presented with unwitnessed fall and right hip fracture Right hip fracture s/p right trochanteric nail by Dr Hargrove 11/11. Postop period unremarkable. Vitals and labs stable. Pain controlled. Started on eliquis 2.5 bid for DVT ppx per ortho. Intellectual disability- at baseline Schizophrenia- stable, on clozapine Seizure disorder- chronic stable, no seizure in years. Continue dilantin, keppra Well controlled diabetes mellitus-II- A1c 6.1. continue lantus, SSI. Adjust as indicated DVT ppx- Eliquis Dispo- Plan to discharge to [facility] tomorrow. No bed today. Admission and Anticipated Discharge Date Admission Date: November 10, 2022 Subjective Seen and examined at bedside. At baseline. No new issues. No fever, chills, chest pain, shortness of breath, N/V. Review of Systems Review of Systems: All systems reviewed & are unremarkable except as noted in Subjective Physical Exam Physical Exam: General: Sitting comfortably in chair, not in distress, on room air HEENT: WILBUR, MMM Chest: Fair breath sounds bilaterally, no wheezes or crackles CVS: Regular rate and rhythm, normal heart sounds, no murmur Abdomen: Soft, non tender, not distended, normal bowel sounds Neuro: Awake, alert, intellectual disability, minimally conversing. Extremities: No cyanosis, clubbing or edema MSK: Left hip incision site covered with dressing, clean and dry Psych: calm, cooperative, not agitated Results & Data Results & Data Vital Signs (Past 12 Hours) Vital Signs Temp Pulse Resp BP Pulse Ox O2 Del Method 11/13/22 14:55 36.6 C 99 H 16 120/75 95 Room Air 11/13/22 11:19 104 H 11/13/22 07:41 36.5 C 110 H 16 118/62 95 Room Air Laboratory Results Short CBC 11/13/22 Range/Units 06:29 WBC 11.21 H (4.8-10.8) K/ul Hgb 11.7 L (12.0-16.0) g/dl Hct 33.3 L (37.0-47.0) % Plt Count 153 (130-400) K/uL BMP 11/13/22 06:29 Sodium 135 L Potassium 3.7 Chloride 104 Carbon Dioxide 21 BUN 16 Creatinine 0.43 L Glucose 121 H Calcium 8.4 L Urine 11/13/22 Range/Units 12:30 Urine Color Dark Yellow Urine Appearance Clear (Clear) Urine pH 5.5 (4.5-7.5) Ur Specific Peculiar 1.042 H (1.000-1.030) Urine Protein 1+ H (Negative) Urine Glucose (UA) 3+ H (Negative) Medications Administered Current Inpatient Medications Acetaminophen (Acetaminophen 500 Mg Tab) 1,000 mg PO Q8H DELMI Stop: 12/10/22 13:59 Last Admin: 11/13/22 13:22 Dose: Not Given Apixaban (Apixaban 2.5 Mg Tab) 2.5 mg PO BID DELMI Stop: 12/11/22 20:59 Last Admin: 11/13/22 08:17 Dose: 2.5 mg Atorvastatin Calcium (Atorvastatin 40 Mg Tab) 40 mg PO HS DELMI Stop: 12/10/22 20:59 Last Admin: 11/12/22 21:40 Dose: 40 mg Bisacodyl (Bisacodyl 10 Mg Supp) 10 mg OR DAILY PRN PRN Reason: Constipation Stop: 12/10/22 13:54 Clozapine (Clozapine 100 Mg Tab) 600 mg PO HS DELMI Stop: 12/10/22 20:59 Last Admin: 11/12/22 21:40 Dose: 600 mg Dextrose (Dextrose 50% 50 Ml Syringe) 25 - 50 ml IV UD PRN; Protocol PRN Reason: Hypoglycemia Protocol Stop: 12/10/22 13:54 Docusate Sodium (Docusate Sodium 100 Mg Cap) 100 mg PO BID DELMI Stop: 12/10/22 20:59 Last Admin: 11/13/22 08:18 Dose: 100 mg Glucagon (Glucagon For Inj 1 Mg Vial) 1 mg SQ UD PRN; Protocol PRN Reason: Hypoglycemia Protocol Stop: 12/10/22 13:54 Glucose (Glucose 10 Tab/Tube) 4 - 8 tab PO UD PRN; Protocol PRN Reason: Hypoglycemia Treatment Stop: 12/10/22 13:54 Glucose (Glucose 40% Gel 15 Gm Tube) 15 - 30 gm PO UD PRN; Protocol PRN Reason: Hypoglycemia Protocol Stop: 12/10/22 13:54 Insulin Aspart (Insulin Aspart Per Unit Charge) 0 units SC ACHS [facility] Stop: 12/12/22 07:29 Last Admin: 11/13/22 13:07 Dose: Not Given Insulin Glargine (Lantus Per Unit Charge) 10 units SQ BID [facility] Stop: 12/10/22 20:59 Last Admin: 11/13/22 08:30 Dose: 10 units Levetiracetam (Levetiracetam 250 Mg Tab) 250 mg PO BID [facility] Stop: 12/10/22 20:59 Last Admin: 11/13/22 08:17 Dose: 250 mg Magnesium Hydroxide (Magnesium Hydroxide Susp 30 Ml Udc) 30 ml PO DAILY PRN PRN Reason: Constipation Stop: 12/10/22 13:54 Miscellaneous (Carbohydrates For Hypoglycemia ) 15 - 30 gm PO UD PRN PRN Reason: Hypoglycemia Protocol Stop: 12/10/22 13:54 Morphine Sulfate (Morphine Sulfate 4 Mg/Ml 1 Ml Carp\Vial) 4 mg IV Q3H PRN PRN Reason: Pain (6,7,8,9,10) Stop: 11/24/22 13:54 Morphine Sulfate (Morphine Sulfate 2 Mg/Ml Carp) 2 mg IV Q3H PRN PRN Reason: Pain (1,2,3,4,5) & Pre PT Stop: 11/24/22 13:54 Naloxone HCl (Naloxone Hcl 0.4 Mg/1 Ml Vial/Carp) 0.1 mg IV UD PRN PRN Reason: Opiate Overdose Stop: 12/10/22 13:54 Ondansetron HCl (Ondansetron Inj 2 Mg/Ml 2 Ml Vial) 4 mg IV Q6H PRN PRN Reason: Nausea And Vomiting Stop: 12/10/22 13:54 Oxycodone HCl (Oxycodone Hcl Ir 5 Mg Tab (Immediate Release)) 10 mg PO Q4H PRN PRN Reason: SEVERE Pain (7,8,9,10) Stop: 11/24/22 13:54 Oxycodone HCl (Oxycodone Hcl Ir 5 Mg Tab (Immediate Release)) 5 mg PO Q4H PRN PRN Reason: MODERATE Pain (4,5,6) & Pre PT Stop: 11/24/22 13:54 Phenytoin Sodium (Phenytoin Sodium Er 100 Mg Cap) 200 mg PO BID DELMI Stop: 12/10/22 20:59 Last Admin: 11/13/22 08:17 Dose: 200 mg Polyethylene Glycol (Polyethylene (Miralax) 17 Gm Pack) 17 gm PO BID DELMI Stop: 12/10/22 20:59 Last Admin: 11/13/22 08:18 Dose: 17 gm Valacyclovir HCl (Valacyclovir Hcl 500 Mg Tablet) 500 mg PO DAILY DELMI Stop: 12/11/22 08:59 Last Admin: 11/13/22 08:17 Dose: 500 mg Vitamin B Complex (Vitamin B Complex Tab) 1 tab PO QAM DELMI Stop: 12/11/22 08:59 Last Admin: 11/13/22 08:17 Dose: 1 tab
[2022-11-13] MEDS: ATORVASTATIN 40 MG TAB PO SCH (20:29)
[2022-11-13] MEDS: cloZAPine 100 MG TAB PO SCH (20:31)
[2022-11-14] MEDS: ACETAMINOPHEN 500 MG TAB PO SCH ×3 (05:44→21:07)
[2022-11-14 06:40] LABS: Hemoglobin 10.6 g/dl (12.0-16.0); Mean Corpuscular Hemoglobin 30.8 pg (25.0-34.0); Mean Corpuscular Hgb Conc 34.2 g/dL (32.0-36.0); Mean Corpuscular Volume 90.1 fL (80.0-100.0); Mean Platelet Volume 10.5 fL (9.4-12.4); Platelet Count 154 K/uL (130-400); RDW Coefficient of Variation 14.8 % (11.5-14.5); RDW Standard Deviation 48.7 fL (36.4-46.3); Red Blood Count 3.44 M/uL (4.20-5.40); White Blood Count 6.93 K/ul (4.8-10.8)
[2022-11-14 07:01] LABS: BUN Creatinine Ratio 36.2 (10-20); Calcium 8.4 mg/dl (8.6-10.3); Creatinine Clr Calc Pharmacy 117.6 ml/min; Est GFR (African American) 124.4 ml/min; Est GFR (Non-African American) 107.4 ml/min; Potassium 3.9 mmol/L (3.5-5.1)
[2022-11-14] MEDS: PHENYTOIN SODIUM ER 100 MG CAP PO SCH ×2 (08:48→19:50)
[2022-11-14] MEDS: LANTUS PER UNIT CHARGE SQ SCH ×2 (08:48→21:06)
[2022-11-14] MEDS: levETIRAcetam 250 MG TAB PO SCH ×2 (08:48→19:51)
[2022-11-14] MEDS: valACYclovir HCL 500 MG TABLET PO SCH (08:48)
[2022-11-14] MEDS: DOCUSATE SODIUM 100 MG CAP PO SCH ×2 (08:48→19:49)
[2022-11-14] MEDS: VITAMIN B COMPLEX TAB PO SCH (08:48)
[2022-11-14] MEDS: APIXABAN 2.5 MG TAB PO SCH ×2 (08:48→19:50)
[2022-11-14] MEDS: POLYETHYLENE (MIRALAX) 17 GM PACK PO SCH ×2 (08:48→19:52)
[2022-11-14] MEDS: INSULIN ASPART PER UNIT CHARGE SC SCH ×4 (08:50→21:06)
--- NOTE | 2022-11-14 13:31 | Hospitalist Progress Note ---
Date of Service November 14, 2022 Assessment & Plan (1) Closed right hip fracture: (2) Seizure disorder: (3) Schizophrenia: (4) DMII (diabetes mellitus, type 2): (5) Intellectual delay: Plan 62 year old female with intellectual disability and schizophrenia, from [employer], presented with unwitnessed fall and right hip fracture Right hip fracture s/p right trochanteric nail by Dr Hargrove 11/11. Postop period unremarkable. Vitals and labs stable. Pain controlled. Started on eliquis 2.5 bid for DVT ppx per ortho. Intellectual disability- at baseline Schizophrenia- stable, on clozapine Seizure disorder- chronic stable, no seizure in years. Continue dilantin, keppra Well controlled diabetes mellitus-II- A1c 6.1. continue lantus, SSI. Adjust as indicated DVT ppx- Eliquis Dispo- Plan to discharge [facility] tomorrow. No bed today. Admission and Anticipated Discharge Date Admission Date: November 10, 2022 Subjective Patient was seen and examined at bedside. She is at her baseline. Denies pain. No fever, chills, chest pain or shortness of breath nausea or vomiting. Review of Systems Review of Systems: All systems reviewed & are unremarkable except as noted in Subjective Physical Exam Physical Exam: General: Sitting comfortably in bed,, not in distress, on room air HEENT: WILBUR, MMM Chest: Fair breath sounds bilaterally, no wheezes or crackles CVS: Regular rate and rhythm, normal heart sounds, no murmur Abdomen: Soft, non tender, not distended, normal bowel sounds Neuro: Awake, alert, intellectual disability, minimally conversing. Extremities: No cyanosis, clubbing or edema MSK: Left hip incision site covered with dressing, clean and dry Psych: calm, cooperative, not agitated Results & Data Results & Data Vital Signs (Past 12 Hours) Vital Signs Temp Pulse Resp BP Pulse Ox O2 Del Method 11/14/22 08:30 Room Air 11/14/22 07:23 36.7 C 90 18 121/70 97 Room Air Laboratory Results Short CBC 11/14/22 Range/Units 05:58 WBC 6.93 (4.8-10.8) K/ul Hgb 10.6 L (12.0-16.0) g/dl Hct 31.0 L (37.0-47.0) % Plt Count 154 (130-400) K/uL BMP 11/14/22 05:58 Sodium 136 Potassium 3.9 Chloride 104 Carbon Dioxide 23 BUN 17 Creatinine 0.47 L Glucose 97 Calcium 8.4 L Medications Administered Current Inpatient Medications Acetaminophen (Acetaminophen 500 Mg Tab) 1,000 mg PO Q8H DELMI Stop: 12/10/22 13:59 Last Admin: 11/14/22 05:44 Dose: 1,000 mg Apixaban (Apixaban 2.5 Mg Tab) 2.5 mg PO BID DELMI Stop: 12/11/22 20:59 Last Admin: 11/14/22 08:48 Dose: 2.5 mg Atorvastatin Calcium (Atorvastatin 40 Mg Tab) 40 mg PO HS DELMI Stop: 12/10/22 20:59 Last Admin: 11/13/22 20:29 Dose: 40 mg Bisacodyl (Bisacodyl 10 Mg Supp) 10 mg OK DAILY PRN PRN Reason: Constipation Stop: 12/10/22 13:54 Clozapine (Clozapine 100 Mg Tab) 600 mg PO HS [facility] Stop: 12/10/22 20:59 Last Admin: 11/13/22 20:31 Dose: 600 mg Dextrose (Dextrose 50% 50 Ml Syringe) 25 - 50 ml IV UD PRN; Protocol PRN Reason: Hypoglycemia Protocol Stop: 12/10/22 13:54 Docusate Sodium (Docusate Sodium 100 Mg Cap) 100 mg PO BID DELMI Stop: 12/10/22 20:59 Last Admin: 11/14/22 08:48 Dose: 100 mg Glucagon (Glucagon For Inj 1 Mg Vial) 1 mg SQ UD PRN; Protocol PRN Reason: Hypoglycemia Protocol Stop: 12/10/22 13:54 Glucose (Glucose 10 Tab/Tube) 4 - 8 tab PO UD PRN; Protocol PRN Reason: Hypoglycemia Treatment Stop: 12/10/22 13:54 Glucose (Glucose 40% Gel 15 Gm Tube) 15 - 30 gm PO UD PRN; Protocol PRN Reason: Hypoglycemia Protocol Stop: 12/10/22 13:54 Insulin Aspart (Insulin Aspart Per Unit Charge) 0 units SC ACHS DELMI Stop: 12/12/22 07:29 Last Admin: 11/14/22 08:50 Dose: 2 units Insulin Glargine (Lantus Per Unit Charge) 10 units SQ BID DELMI Stop: 12/10/22 20:59 Last Admin: 11/14/22 08:48 Dose: 10 units Levetiracetam (Levetiracetam 250 Mg Tab) 250 mg PO BID [facility] Stop: 12/10/22 20:59 Last Admin: 11/14/22 08:48 Dose: 250 mg Magnesium Hydroxide (Magnesium Hydroxide Susp 30 Ml Udc) 30 ml PO DAILY PRN PRN Reason: Constipation Stop: 12/10/22 13:54 Miscellaneous (Carbohydrates For Hypoglycemia ) 15 - 30 gm PO UD PRN PRN Reason: Hypoglycemia Protocol Stop: 12/10/22 13:54 Morphine Sulfate (Morphine Sulfate 4 Mg/Ml 1 Ml Carp\Vial) 4 mg IV Q3H PRN PRN Reason: Pain (6,7,8,9,10) Stop: 11/24/22 13:54 Morphine Sulfate (Morphine Sulfate 2 Mg/Ml Carp) 2 mg IV Q3H PRN PRN Reason: Pain (1,2,3,4,5) & Pre PT Stop: 11/24/22 13:54 Naloxone HCl (Naloxone Hcl 0.4 Mg/1 Ml Vial/Carp) 0.1 mg IV UD PRN PRN Reason: Opiate Overdose Stop: 12/10/22 13:54 Ondansetron HCl (Ondansetron Inj 2 Mg/Ml 2 Ml Vial) 4 mg IV Q6H PRN PRN Reason: Nausea And Vomiting Stop: 12/10/22 13:54 Oxycodone HCl (Oxycodone Hcl Ir 5 Mg Tab (Immediate Release)) 10 mg PO Q4H PRN PRN Reason: SEVERE Pain (7,8,9,10) Stop: 11/24/22 13:54 Oxycodone HCl (Oxycodone Hcl Ir 5 Mg Tab (Immediate Release)) 5 mg PO Q4H PRN PRN Reason: MODERATE Pain (4,5,6) & Pre PT Stop: 11/24/22 13:54 Phenytoin Sodium (Phenytoin Sodium Er 100 Mg Cap) 200 mg PO BID [facility] Stop: 12/10/22 20:59 Last Admin: 11/14/22 08:48 Dose: 200 mg Polyethylene Glycol (Polyethylene (Miralax) 17 Gm Pack) 17 gm PO BID [facility] Stop: 12/10/22 20:59 Last Admin: 11/14/22 08:48 Dose: 17 gm Valacyclovir HCl (Valacyclovir Hcl 500 Mg Tablet) 500 mg PO DAILY [facility] Stop: 12/11/22 08:59 Last Admin: 11/14/22 08:48 Dose: 500 mg Vitamin B Complex (Vitamin B Complex Tab) 1 tab PO [facility] Stop: 12/11/22 08:59 Last Admin: 11/14/22 08:48 Dose: 1 tab
[2022-11-14] MEDS: cloZAPine 100 MG TAB PO SCH (19:51)
[2022-11-14] MEDS: ATORVASTATIN 40 MG TAB PO SCH (19:51)
[2022-11-15] MEDS: ACETAMINOPHEN 500 MG TAB PO SCH ×2 (05:31→12:41)
[2022-11-15] MEDS: levETIRAcetam 250 MG TAB PO SCH (08:36)
[2022-11-15] MEDS: VITAMIN B COMPLEX TAB PO SCH (08:36)
[2022-11-15] MEDS: valACYclovir HCL 500 MG TABLET PO SCH (08:36)
[2022-11-15] MEDS: APIXABAN 2.5 MG TAB PO SCH (08:36)
[2022-11-15] MEDS: POLYETHYLENE (MIRALAX) 17 GM PACK PO SCH (08:36)
[2022-11-15] MEDS: PHENYTOIN SODIUM ER 100 MG CAP PO SCH (08:36)
[2022-11-15] MEDS: DOCUSATE SODIUM 100 MG CAP PO SCH (08:36)
[2022-11-15] MEDS: INSULIN ASPART PER UNIT CHARGE SC SCH ×2 (08:39→12:35)
[2022-11-15] MEDS: LANTUS PER UNIT CHARGE SQ SCH (08:39)
--- NOTE | 2022-11-15 10:29 | Discharge Summary ---
Date of Service November 15, 2022 Admission HPI Per Admitting Provider Brittany is a 62 yo F with intellectual delay and schizophrenia who presents with a right hip fracture after an unwitnessed fall at home ([employer]). She presents with her caregiver who assists with the story. She was found onthe floor alert by her dresser fully dressed with her shoes on this morning. She is typically allowed to dress herself independently. Past few weeks in and out of ER because of mobility issues. She has been using a walker and staff has noted needing to offer more help over the past 4 weeks or so. Caregiver reports that because her seizure levels were low, her neurologist increased the doses of some of her AEDs and this caused side effects resulting in lowering them back to the original doses. Specifically dilantin was increased to 300mg BID from 200mg BID and Keppra went from 250mg BID to 250/500. She became more lethargic, off balance and sustained at least one fall prompting an ER visit. Caregiver reports ongoing weakness, drowsiness, occasional worsening of known tremors, and mobility issues although these are better since AEDs were changed back to original dose and glucose is under better control. Admission Exam Per Admitting Provider CONSTITUTIONAL: WNWD, vitals as above, generally well-appearing, NAD EYES: pupils are round and equal bilaterally, normal conjunctivae, no scleral icterus ENT: external ear and nose normal, oropharynx clear, MMM NECK: trachea midline RESPIRATORY: clear to auscultation bilaterally, no crackles, rales or wheezes, normal respiratory effort CARDIOVASCULAR: regular rate and rhythm, S1 and 2 heard without murmurs, gallops or rubs, no JVD, no peripheral edema CHEST: inspection of chest was normal GASTROINTESTINAL: soft, nontender, ND, no guarding MUSCULOSKELETAL: limited exam on RLE given right hip fracture, otherwise no gross focal deficit. head is normocephalic and atraumatic SKIN: warm and dry NEUROLOGIC: CN 2-12 grossly intact, no sensory deficit, normal cognition, normal speech, no tremor PSYCHIATRIC: alert cooperative and oriented to person, place and time. Euthymic mood, makes good eye contact, language grossly intact, recent and remote memory grossly intact. Intellectual delay is apparent in conversation. Principal Diagnosis Closed right hip fracture, intellectual disability, schizophrenia, seizure disorder Discharge Exam General: Sitting comfortably in bed,, not in distress, on room air HEENT: WILBUR, MMM Chest: Fair breath sounds bilaterally, no wheezes or crackles CVS: Regular rate and rhythm, normal heart sounds, no murmur Abdomen: Soft, non tender, not distended, normal bowel sounds Neuro: Awake, alert, intellectual disability, minimally conversing, at baseline Extremities: No cyanosis, clubbing or edema MSK: Right hip incision site covered with dressing, clean and dry Psych: calm, cooperative, not agitated Discharge Data Allergies Allergy/AdvReac Type Severity Reaction Status Date / Time divalproex sodium Allergy Unknown Unknown Verified 10/19/22 12:20 [From Depakote] salicylates Allergy Unknown Unknown Verified 10/19/22 12:20 valproic acid Allergy Unknown Unknown Verified 10/19/22 12:20 aspirin AdvReac Severe STOMACH Verified 10/19/22 12:20 ULCER BLEEDING Consultations 11/10/22 09:57 ED Decision to Admit Stat 11/10/22 13:55 Consult Anesthesiology Routine Consult Orthopedic Surgery Routine Procedures Performed Operation Date: 11/11/22 07:00 Actual Procedures p Right Trochanteric Nail(Right) - Vince Hargrove DO Ordered Studies 11/11/22 15:00 FL hip RT 2-3V Routine Laboratory Results WBC 6.93 K/ul (4.8-10.8) 11/14/22 05:58 RBC 3.44 M/uL (4.20-5.40) L 11/14/22 05:58 Hgb 10.6 g/dl (12.0-16.0) L 11/14/22 05:58 Hct 31.0 % (37.0-47.0) L 11/14/22 05:58 MCV 90.1 fL (80.0-100.0) 11/14/22 05:58 MCH 30.8 pg (25.0-34.0) 11/14/22 05:58 MCHC 34.2 g/dL (32.0-36.0) 11/14/22 05:58 RDW Std Deviation 48.7 fL (36.4-46.3) H 11/14/22 05:58 RDW Coeff of Liliana 14.8 % (11.5-14.5) H 11/14/22 05:58 Plt Count 154 K/uL (130-400) 11/14/22 05:58 MPV 10.5 fL (9.4-12.4) 11/14/22 05:58 Immature Gran % (Auto) 0.3 % 11/12/22 05:51 Neut % (Auto) 82.3 % 11/12/22 05:51 Lymph % (Auto) 6.7 % 11/12/22 05:51 [place] % (Auto) 10.5 % 11/12/22 05:51 Eos % (Auto) 0.0 % 11/12/22 05:51 Baso % (Auto) 0.2 % 11/12/22 05:51 Neut # (Auto) 7.42 K/uL (1.40-6.50) H 11/12/22 05:51 Lymph # (Auto) 0.60 K/uL (1.2-3.4) L 11/12/22 05:51 [place] # (Auto) 0.95 K/uL (0.11-0.59) H 11/12/22 05:51 Eos # (Auto) 0.00 K/uL (0-0.50) 11/12/22 05:51 Baso # (Auto) 0.02 K/uL (0-0.2) 11/12/22 05:51 Immature Gran # (Auto) 0.03 K/uL (0.01-0.20) 11/12/22 05:51 PT 10.7 Seconds (9.0-12.0) 11/10/22 10:00 INR 1.0 (0.9-1.1) 11/10/22 10:00 APTT 24.8 Seconds (21.0-31.0) 11/10/22 10:00 PTT Ratio 0.9 11/10/22 10:00 Sodium 136 mmol/L (136-145) 11/14/22 05:58 Potassium 3.9 mmol/L (3.5-5.1) 11/14/22 05:58 Chloride 104 mmol/L (98-107) 11/14/22 05:58 Carbon Dioxide 23 mmol/L (21-32) 11/14/22 05:58 Anion Gap 9 (3-11) 11/14/22 05:58 BUN 17 mg/dl (6-23) 11/14/22 05:58 Creatinine 0.47 mg/dl (0.6-1.2) L 11/14/22 05:58 Est Cr Clr Drug Dosing 117.6 ml/min 11/14/22 05:58 Est GFR ( Amer) 124.4 ml/min 11/14/22 05:58 Est GFR (Non-Af Amer) 107.4 ml/min 11/14/22 05:58 BUN/Creatinine Ratio 36.2 (10-20) H 11/14/22 05:58 Glucose 97 mg/dl (70-99(Fasting)) 11/14/22 05:58 POC Glucose 165 mg/dl (70-99) H 11/15/22 08:04 Calcium 8.4 mg/dl (8.6-10.3) L 11/14/22 05:58 Phosphorus 3.2 mg/dl (2.5-4.9) 11/12/22 05:51 Magnesium 1.9 mg/dl (1.7-2.4) 11/12/22 05:51 Total Bilirubin 0.3 mg/dl (0.2-1.0) 11/10/22 10:00 AST 32 U/L (13-39) 11/10/22 10:00 ALT 32 U/L (7-52) 11/10/22 10:00 Alkaline Phosphatase 128 U/L (34-104) H 11/10/22 10:00 Total Protein 7.2 gm/dl (6.0-8.3) 11/10/22 10:00 Albumin 4.2 gm/dl (3.4-5.0) 11/10/22 10:00 Globulin 3.0 gm/dl (2.5-4.0) 11/10/22 10:00 Albumin/Globulin Ratio 1.4 (0.9-2) 11/10/22 10:00 25-OH Vitamin D Total 41.4 ng/ml (30-100) 11/12/22 05:51 Urine Color Dark Yellow 11/13/22 12:30 Urine Appearance Clear (Clear) 11/13/22 12:30 Urine pH 5.5 (4.5-7.5) 11/13/22 12:30 Ur Specific [place] 1.042 (1.000-1.030) H 11/13/22 12:30 Urine Protein 1+ (Negative) H 11/13/22 12:30 Urine Glucose (UA) 3+ (Negative) H 11/13/22 12:30 Urine Ketones 3+ (Negative) H 11/13/22 12:30 Urine Blood Negative (Negative) 11/13/22 12:30 Urine Nitrite Negative (Negative) 11/13/22 12:30 Urine Bilirubin Negative (Negative) 11/13/22 12:30 Urine Urobilinogen Negative (Negative) 11/13/22 12:30 Ur Leukocyte Esterase Negative (Negative) 11/13/22 12:30 Urine WBC (Auto) 1-5 /hpf (0-5) 11/13/22 12:30 Urine RBC (Auto) 0-4 /hpf (0-4) 11/13/22 12:30 U Hyaline Cast (Auto) 1-5 /lpf (0-5) 11/13/22 12:30 U Epithel Cells (Auto) 10-20 /lpf (0-5) H 11/13/22 12:30 Urine Bacteria (Auto) Negative (Negative) 11/13/22 12:30 Granular Casts 5-10 /lpf (0) H 11/13/22 12:30 SARS-CoV-2, RNA, NAAT NEGATIVE (NEGATIVE) 11/10/22 10:45 Blood Type A Negative 11/10/22 20:25 Antibody Screen NEGATIVE 11/10/22 20:25 Impressions Knee X-Ray 11/10/22 09:00 XR knee RT 1 or 2V routine CLINICAL HISTORY: Right knee pain following fall. COMPARISON: Right knee radiographs May 21, 2019. FINDINGS: No acute fracture within the right knee is identified. Evaluation is mildly compromised difficulty positioning due to the right hip fracture. No definite right knee joint effusion. No osseous lesion. IMPRESSION: No fracture within the right knee. ACT 112: Negative or not required by law. Electronically signed by: Jose Srinivasan M.D. 11/10/2022 9:55 AM Hip/Pelvis X-Ray 11/10/22 09:28 XR hip RT 2V w pelvis CLINICAL HISTORY: r hip pain TECHNIQUE: 2 views of the right hip and single frontal view of the pelvis were obtained. Comparison: Comparison is made to CT abdomen pelvis 09/29/2022 FINDINGS: There is an acute basocervical/intertrochanteric fracture of the right hip with apex lateral angulation. Degenerative changes are seen in the hip joint. Soft tissue swelling is seen. IMPRESSION: Right femoral neck fracture and associated soft tissue swelling. ACT 112: Negative or not required by law. Electronically signed by: Omari Ramirez M.D. 11/10/2022 9:50 AM Hip X-Ray 11/11/22 15:00 FL hip RT 2-3V CLINICAL HISTORY: RT TROCH NAIL TECHNIQUE: 4 views were obtained with the C-arm in the OR with the above procedure. Total fluoroscopy time was 48.3 seconds. Radiation dose was 5.86 mGy. Comparison: Comparison is made to hip radiograph 11/10/2022 FINDINGS/IMPRESSION: Intraoperative images were obtained of right trochanteric nail placement Please correlate with intraoperative fluoroscopy and operative report. ACT 112: Negative or not required by law. Electronically signed by: Omari Ramirez M.D. 11/11/2022 10:12 PM Chest X-Ray 11/13/22 11:10 XR chest 2V PA/lateral CLINICAL HISTORY: r/o PNA COMPARISON STUDY: Chest radiograph October 21, 2022. FINDINGS: Elevation of the left hemidiaphragm is unchanged. There is no pneumothorax or pleural effusion. No consolidation is identified. Minimal left basilar opacity favors atelectasis. There is no evidence for overt pulmonary edema. IMPRESSION: No definite consolidation to suggest pneumonia. Mild left basilar opacity which favors atelectasis. ACT 112: Negative or not required by law. Electronically signed by: Jose Srinivasan M.D. 11/13/2022 12:12 PM Hospital Course (1) Closed right hip fracture: (2) Seizure disorder: (3) Schizophrenia: (4) DMII (diabetes mellitus, type 2): (5) Intellectual delay: Plan 62 year old female with intellectual disability and schizophrenia, from [employer], presented with unwitnessed fall and right hip fracture/ S/p OR by Dr Hargrove. Seen by PT OT and recommended rehab. Discharging to [facility] for the same. Postoperative course has been unremarkable. She is on tylenol tid and denies any pain, looks comfortable and has not required any opiates during the postoperative period. She will continue on Eliquis 2.5 bid for DVT prophylaxis for 4 weesk per ortho. She is comfortable and stable to go to rehab. Right hip fracture s/p right trochanteric nail by Dr Hargrove 11/11. Postop period unremarkable. Vitals and labs stable. Pain controlled with tylenol 1 gm tid, did not require any opiates. Continue eliquis 2.5 bid for 4 weeks or as directed by ortho for DVT prophylaxis. Intellectual disability- at baseline Schizophrenia- stable, on clozapine Seizure disorder- chronic stable, no seizure in years. Continue dilantin, keppra Well controlled diabetes mellitus-II- A1c 6.1. continue home meds. Total Time Total Time Spent Total Time Spent (In Minutes): 35 Discharge Plan Discharge Items Patient Disposition: Transfer Inpatient Rehab Fac Reason For Visit: R HIP FRACTURE Discharge Diagnosis: Right Intertrochanteric Hip Fracture Activity: Per Instructions section Weightbearing: Right weightbearing Weightbearing Comment: as tolerated with walker Non-emergency contact: Surgeon Call non-emergency contact if: you have any medication questions, your pain is not controlled, your temperature is above 101.5, your wound has increased redness and your wound has increased drainage Follow-up/Referrals: Delmy Jacobsen PA-C [Primary Care Provider] - Vince Hargrove DO [Surgeon] - (Follow up with Dr Morales or his PA in 2 weeks from the day of your surgery for your first post operative visit) Diet: Carb Consistent or DM2 Addtl Attending Provider Instructions: Take tylenol 3 times daily as needed for pain. Eliquis 2.5 mg twice daily for DVT prophylaxis for 4 weeks or as directed by orthopedics Please see the instructions below Addtl Equity Director Provider Instructions: [facility] DISCHARGE INSTRUCTIONS: HIP FRACTURE SELF CARE INSTRUCTIONS: A. You are to ambulate with a walker or crutches for approximately 6 weeks. B. You are WEIGHT BEARING TOLERATED on your operative lower extremity for at least 6 weeks. C. Wear low heeled shoes with non-slip soles D. Be sure that your floors are free of things that could trip you throw rugs, electrical cords, and small objects. Avoid wet and waxed floors, especially with crutches/walker/cane. E. Try to walk several times a day with rest periods between. F. You may shower 48 hours after surgery and get the incision area wet, but DO NOT soak or submerge incision area in water. (No baths, swimming pools, hot tubs) G. You may have a large, band-aid like dressing over your incision (Aquacel). This will remain on your incision for 7 days, and then can be removed. You CAN shower with this on. If incision is leaking through the dressing, please call the office . H. Do NOT apply soap or any ointment/lotions directly over incision. I. You may use ice as needed to operative site. SPECIAL CARE INSTRUCTIONS: VERY IMPORTANT TO READ AND REVIEW A. You may be at risk for phlebitis or blood clots. a. Wear surgical stockings (ALONDRA hose) for 2 weeks after surgery to improve circulation and reduce swelling. b. Take Apixaban 2.5 mg twice daily 4 weeks or as directed. This is your blood thinner. B. There are a few signs you need to watch for after you are home. Call [facility] at [phone] if you experience any of the following: a. If you have a temperature of 101 degrees or higher. b. Sudden increase in pain in your hip not relieved by rest or pain medication. c. Any fluid or drainage from the incision; redness of the incision. d. Shortness of breath or chest pain. C. Pain Medication: a. You will be prescribed pain medication upon dischar ge that should last till your first post-operative appointment. b. If you experience nausea and/or skin rash, discontinue this medication and contact our office for an alternative medication. c. Caution- narcotic pain medication can cause constipation. FOLLOW UP VISIT: Please call [facility] at [phone] to schedule a follow up appointment 10-14 days from the date of your surgery date. Pending Studies at Discharge: No Stand-Alone Forms: [facility] Skilled Items Patient informed of condition?: Yes DNR: No Discharge Level of Care: Acute rehab Communicable Disease: No Discharge Prognosis: Stable Lines: None Urinary Catheter: No Medications and DC Order Prescriptions: New Eliquis 2.5 mg Tablet 2.5 mg PO BID Qty: 60 0RF acetaminophen [Tylenol Extra Strength] 500 mg Tablet 1,000 mg PO Q8H Qty: 30 0RF Continued levetiracetam [Keppra] 250 mg tablet 250 mg PO BID 90 Days Qty: 180 3RF fluticasone propionate 50 mcg/actuation spray,suspension 2 sprays INTNAS QPM loratadine [Allergy Relief (loratadine)] 10 mg tablet 10 mg PO QAM famotidine 20 mg tablet 20 mg PO DAILY Jardiance 10 mg tablet 25 mg PO DAILY atorvastatin 40 mg tablet 40 mg PO HS oxybutynin chloride 10 mg tablet extended release 24hr 10 mg PO QAM glimepiride 2 mg tablet 2 mg PO QAM metformin 500 mg tablet extended release 24 hr 1,000 mg PO BID Women's One Daily 18 mg iron-400 mcg-500 mg Ca Tablet 1 tab PO QAM vitamin B complex Tablet 1 tab PO QAM polyethylene glycol 3350 [Miralax] 17 gram powder in packet 17 g PO BID Rx Instructions: HOLD IF HAS DIARRHEA ammonium lactate 12 % cream 1 applic TOPICAL QAM Rx Instructions: Apply to feet. docusate sodium [Colace] 100 mg Capsule 100 mg PO BID clozapine 200 mg tablet 600 mg PO HS glimepiride 1 mg Tablet 1 mg PO DIRECTED PRN (Reason: BSG >300.) Boost Liquid 1 ea PO QAM Rx Instructions: IF DOESN'T TAKE WITH BREAKFAST, GIVE FOR LUNCH triamcinolone acetonide 0.1 % cream 1 applic TOPICAL BID PRN (Reason: Rash) Rx Instructions: apply to right buttocks prn rash valacyclovir 500 mg Tablet 500 mg PO DAILY phenytoin sodium extended [Dilantin Extended] 100 mg capsule 200 mg PO BID 90 Days Qty: 540 2RF Discharge Orders: Discharge Order (Routine); Ordered 11/15/22 Ordered By: Terry Paniagua Admission Data Admit Date/Time: 11/10/22 10:42 Attending Provider: Terry Paniagua Admit Provider: Genia Whitlock Primary Care Provider: Delmy Jacobsen Other Providers: Genia Whitlock ; John Wood ; Leno Medina ; [facility]
== END 2022-11-15 16:45 | DRG 481 ==
LOC: ED 08:50 → 3E 10:42 → SUATTDRO 10:42 → 3E 13:39

== ENCOUNTER 2023-02-25 08:19 | Inpatient (IN) ==
--- NOTE | 2023-02-25 08:45 | Emergency Department Note ---
Impression & Plan Acute confusion, Generalized weakness, Elevated lactic acid level, COVID-19 ED Provider Note HISTORY OF PRESENT ILLNESS: Patient is a 62-year-old female presenting with altered mental status. [place] [facility] [place] known well was 3 PM yesterday. She r eportedly has been "drooling all over herself" since yesterday and they noticed right-sided facial droop. They report that she is normally fully conversant and today was unable to talk with staff at the facility. On arrival to the ER, patient is unable to provide any meaningful history. ROS: as above PHYSICAL EXAM: Constitutional: Patient appears in no acute distress. HENT: Head: Normocephalic and atraumatic. Eyes: EOMI, PERRL Mouth/Throat: Mucous membranes moist. Neck: Trachea midline. Neck supple. Cardiovascular: Tachycardic with regular rhythm. No murmurs, rubs or gallops. Intact distal pulses. Pulmonary/Chest: No respiratory distress. Breath sounds clear and equal bilaterally. No wheezes or rales. Abdominal: Abdomen soft, no tenderness, rebound or guarding. Musculoskeletal: No edema, tenderness or deformity noted. Skin: Warm and dry. No rash, erythema, pallor or cyanosis Psychiatric: Appropriate mood and affect for situation. Neurological: Alert. Right lower facial droop. Strength is 4-5 in bilateral upper and lower extremities. Patient is slumped to the right side. MDM: - Vitals signs showed tachycardia - History obtained via EMS, given patient's confusion. Patient presents with altered mental status. Patient presents from [facility]. She was last known well at 3 PM yesterday. She reportedly has been acting abnormal and had a right-sided facial droop. She is normally able to walk and talk with staff at the facility. However, since 3 PM yesterday she has been very [facility] and unable to get up on her own. - Chronic conditions affecting care: seizure disorder; DM-2; HTN - Differential diagnoses include, but are not limited to: UTI; pneumonia; CVA; intracranial hemorrhage; electrolyte abnormality; ACS - Order placed for continuous cardiac monitoring. At this time, monitor showed rate of 100 bpm with normal sinus rhythm, per my interpretation. - External medical records reviewed. EMS run sheet reviewed. Patient was vitally stable in route. No medications were given prehospital. - EKG reviewed by myself showed normal sinus rhythm. Rate tachycardic at 117 bp m. QTc 451. No acute ischemic changes - Laboratory workup interpreted by myself showed normal WBC; stable electrolytes; elevated lactate (3.6); hyperglycemia (glucose 281); normal troponin; normal TSH - UA negative for infection - CT head wo contrast negative for acute intracranial pathology - CXR negative for obvious pneumonia, per my interpretation - Patient COVID positive today. - Patient given 2L NS. - Discussed results with the patient staff at bedside. She is not requiring any oxygen for her COVID-19 infection. However, she is still quite confused and when attempted to get up to ambulate, the patient was too weak to get up out of bed. Staff reports the patient is fully independent at their facility - Discussion was had with family welfare social work professor about patient's case and need for admiss ion - Hospitalist consulted for admission - [facility] for further evaluation and management. ASSESSMENT AND PLAN: Diagnosis: Confusion; generalized weakness; COVID-19 infection; elevated lactic acid level Plan: Admit Past Med/Surg History Medical History Complex partial seizure Depression with anxiety DMII (diabetes mellitus, type 2) Heart murmur HSV (herpes simplex virus) anogenital infection Hypertension Onychomycosis Schizophrenia Surgical History History of colonoscopy Family History Mother Diabetes Other Seizures Social History Smoking Status: Never smoker Hx Alcohol Use: No Hx Substance Use: No Preferred Language: Czech Communication Ability: Unable Communication Ability Comment: Intellectual Disability Visual Impairment: No Limitations Hearing Ability: Normal 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 Beliefs That Will Affect Care: None marital status: Single Current Living Situation: Personal Care Facility current occupational status: disabled Feels Safe at Home: Yes Assistive Devices: Walker Allergies Allergies Allergy/AdvReac Type Severity Reaction Status Date / Time divalproex sodium Allergy Unknown Unknown Verified 02/11/23 12:10 [From Depakote] salicylates Allergy Unknown Unknown Verified 02/11/23 12:10 valproic acid Allergy Unknown Unknown Verified 02/11/23 12:10 aspirin AdvReac Severe STOMACH Verified 02/11/23 12:10 ULCER BLEEDING Home Meds Home Medications Medication Instructions Recorded Confirmed atorvastatin 40 mg tablet 40 mg PO HS 07/17/18 02/11/23 glimepiride 2 mg tablet 2 mg PO QAM 07/17/18 02/11/23 metformin 500 mg tablet,extended 1,000 mg PO BID 07/17/18 02/11/23 release 24 hr multivit-iron 18 mg-folic acid 400 1 tab PO QAM 07/17/18 02/11/23 mcg-calcium 500 mg-minerals tablet (Women's One Daily) vitamin B complex 1 tab PO QAM 08/25/18 02/11/23 fluticasone propionate 50 2 sprays intranasal QPM 02/15/19 02/11/23 mcg/actuation nasal spray,suspension ammonium lactate 12 % topical cream 1 applic topical QAM 05/21/19 02/11/23 docusate sodium 100 mg capsule 100 mg PO BID 05/21/19 02/11/23 (Colace) triamcinolone acetonide 0.1 % 1 applic topical BID PRN Rash 07/10/21 02/11/23 topical cream famotidine 20 mg tablet 20 mg PO DAILY 08/25/21 02/11/23 clozapine 200 mg tablet 600 mg PO HS 10/31/21 02/11/23 valacyclovir 500 mg tablet 500 mg PO DAILY 02/18/22 02/11/23 food supplemt, lactose-reduced 1 ea PO QAM 10/14/22 02/11/23 glimepiride 1 mg tablet 1 mg PO DIRECTED PRN BSG >300. 10/14/22 02/11/23 empagliflozin 10 mg tablet 25 mg PO DAILY 10/19/22 02/11/23 (Jardiance) polyethylene glycol 3350 17 gram 17 g PO BID 10/19/22 02/11/23 oral powder packet (Miralax) Calcium Citrate + D 200 - 315 mcg PO DAILY 02/11/23 02/11/23 Previous Rx's Medication Instructions Recorded levetiracetam 250 mg tablet 250 mg PO BID 90 days #180 tabs 10/15/22 (Keppra) acetaminophen 500 mg tablet 1,000 mg PO Q8H #30 tabs 11/15/22 (Tylenol Extra Strength) phenytoin sodium extended 100 mg 200 mg PO BID 90 days #360 caps 12/14/22 capsule (Dilantin Extended) Results & Data (ED) Vital Signs Vital Signs - 24 hr 02/25/23 08:22 02/25/23 08:37 02/25/23 09:32 Temperature 37.4 C Temperature Source Oral Pulse Rate 114 H 114 H Pulse Rate [Right Finger] 113 H Pulse Rate from SpO2 Sensor Pulse Rhythm [Right Finger] Regular Respiratory Rate 18 18 Respiratory Effort / Characteristics Non-Labored Spontaneous Non-Labored Spontaneous Respiratory Depth Normal Normal Respiratory Pattern Regular Regular Blood Pressure 136/71 Blood Pressure [Left Arm] 144/73 H Blood Pressure Mean 92 Blood Pressure Mean [Left Arm] 96 Blood Pressure Position Lying Blood Pressure Position [Left Arm] Lying Pulse Oximetry 98 98 Oxygen Delivery Method Room Air Room Air Sepsis Recent Fever Within 48 Hours No Sepsis New/Unexplained Change in Mental Status Yes Sepsis Action Taken by Nursing No Action Required 02/25/23 08:45 02/25/23 09:15 02/25/23 09:15 Temperature Temperature Source Pulse Rate 114 H 111 H 115 H Pulse Rate [Right Finger] Pulse Rate from SpO2 Sensor 114 H Pulse Rhythm [Right Finger] Respiratory Rate 18 18 25 H Respiratory Effort / Characteristics Respiratory Depth Respiratory Pattern Blood Pressure 155/73 H 150/88 H Blood Pressure [Left Arm] Blood Pressure Mean 112 127 Blood Pressure Mean [Left Arm] Blood Pressure Position Blood Pressure Position [Left Arm] Pulse Oximetry 97 96 97 Oxygen Delivery Method Sepsis Recent Fever Within 48 Hours Sepsis New/Unexplained Change in Mental Status Sepsis Action Taken by Nursing 02/25/23 10:00 02/25/23 10:15 02/25/23 10:15 Temperature Temperature Source Pulse Rate 110 H 107 H Pulse Rate [Right Finger] Pulse Rate from SpO2 Sensor Pulse Rhythm [Right Finger] Respiratory Rate 20 24 Respiratory Effort / Characteristics Respiratory Depth Respiratory Pattern Blood Pressure 150/77 H 159/77 H Blood Pressure [Left Arm] Blood Pressure Mean 101 112 Blood Pressure Mean [Left Arm] Blood Pressure Position Blood Pressure Position [Left Arm] Pulse Oximetry 96 Oxygen Delivery Method Sepsis Recent Fever Within 48 Hours Sepsis New/Unexplained Change in Mental Status Sepsis Action Taken by Nursing Laboratory Data 02/25/23 08:30 02/25/23 08:30 Lab Results 02/25/23 02/25/23 02/25/23 Range/Units 08:30 08:30 08:30 WBC 8.71 (4.8-10.8) K/ul RBC 5.17 (4.20-5.40) M/uL Hgb 15.1 (12.0-16.0) g/dl Hct 46.1 (37.0-47.0) % MCV 89.2 (80.0-100.0) fL MCH 29.2 (25.0-34.0) pg MCHC 32.8 (32.0-36.0) g/dL RDW Std Deviation 54.4 H (36.4-46.3) fL RDW Coeff of Liliana 16.9 H (11.5-14.5) % Plt Count 162 (130-400) K/uL MPV 11.6 (9.4-12.4) fL Immature Gran % (Auto) 0.3 % Neut % (Auto) 88.5 % Lymph % (Auto) 3.7 % [place] % (Auto) 7.3 % Eos % (Auto) 0.0 % Baso % (Auto) 0.2 % Neut # (Auto) 7.70 H (1.40-6.50) K/uL Lymph # (Auto) 0.32 L (1.20-3.40) K/uL [place] # (Auto) 0.64 H (0.11-0.59) K/uL Eos # (Auto) 0.00 (0.00-0.50) K/uL Baso # (Auto) 0.02 (0.00-0.20) K/uL Immature Gran # (Auto) 0.03 (0.01-0.20) K/uL PT 10.5 (9.0-12.0) Seconds INR 1.0 (0.9-1.1) Sodium 138 (136-145) mmol/L Potassium 4.3 (3.5-5.1) mmol/L Chloride 102 (98-107) mmol/L Carbon Dioxide 25 (21-32) mmol/L Anion Gap 11 (3-11) BUN 18 (6-23) mg/dl Creatinine 0.77 (0.6-1.2) mg/dl Est Cr Clr Drug Dosing Not Reportable Est GFR ( Amer) 97.3 ml/min Est GFR (Non-Af Amer) 83.9 ml/min BUN/Creatinine Ratio 23.4 H (10-20) Glucose 281 H (70-99(Fasting)) mg/dl Lactate (0.4-2.0) mmol/L Calcium 9.3 (8.6-10.3) mg/dl Magnesium 2.0 (1.7-2.4) mg/dl Total Bilirubin 0.3 (0.2-1.0) mg/dl AST 34 (13-39) U/L ALT 41 (7-52) U/L Alkaline Phosphatase 145 H (34-104) U/L Troponin I High Sens < 2.3 (0-14) pg/ml Total Protein 7.3 (6.0-8.3) gm/dl Albumin 4.5 (3.4-5.0) gm/dl Globulin 2.8 (2.5-4.0) gm/dl Albumin/Globulin Ratio 1.6 (0.9-2) Procalcitonin (0-0.5) ng/ml TSH 0.859 (0.300-4.500) uIu/ml Urine Color Urine Appearance (Clear) Urine pH (4.5-7.5) Ur Specific [place] (1.000-1.030) Urine Protein (Negative) Urine Glucose (UA) (Negative) Urine Ketones (Negative) Urine Blood (Negative) Urine Nitrite (Negative) Urine Bilirubin (Negative) Urine Urobilinogen (Negative) Ur Leukocyte Esterase (Negative) Urine WBC (Auto) (0-5) /hpf Urine RBC (Auto) (0-4) /hpf U Hyaline Cast (Auto) (0-5) /lpf U Epithel Cells (Auto) (0-5) /lpf Urine Bacteria (Auto) (Negative) Adenovirus (PCR) (NotDetected) B. pertussis DNA (PCR) (NotDetected) B.parapertussis DNA PCR (NotDetected) C. pneumoniae DNA (PCR) (NotDetected) Coronavirus OC43 (PCR) (NotDetected) Coronavirus HKU1 (PCR) (NotDetected) Coronavirus 229E (PCR) (NotDetected) SARS-CoV-2 (PCR) (NotDetected) Coronavirus NL63 (PCR) (NotDetected) Human Metapneumovir PCR (NotDetected) Influenza Type A (PCR) (NotDetected) Influenza Type B (PCR) (NotDetected) M. pneumoniae (PCR) (NotDetected) Parainfluenza 1 (PCR) (NotDetected) Parainfluenza 2 (PCR) (NotDetected) Parainfluenza 3 (PCR) (NotDetected) Parainfluenza 4 (PCR) (NotDetected) RSV (PCR) (NotDetected) Entero/Rhino (PCR) (NotDetected) 02/25/23 02/25/23 02/25/23 Range/Units 08:42 09:28 10:01 WBC (4.8-10.8) K/ul RBC (4.20-5.40) M/uL Hgb (12.0-16.0) g/dl Hct (37.0-47.0) % MCV (80.0-100.0) fL MCH (25.0-34.0) pg MCHC (32.0-36.0) g/dL RDW Std Deviation (36.4-46.3) fL RDW Coeff of Liliana (11.5-14.5) % Plt Count (130-400) K/uL MPV (9.4-12.4) fL Immature Gran % (Auto) % Neut % (Auto) % Lymph % (Auto) % [place] % (Auto) % Eos % (Auto) % Baso % (Auto) % Neut # (Auto) (1.40-6.50) K/uL Lymph # (Auto) (1.20-3.40) K/uL [place] # (Auto) (0.11-0.59) K/uL Eos # (Auto) (0.00-0.50) K/uL Baso # (Auto) (0.00-0.20) K/uL Immature Gran # (Auto) (0.01-0.20) K/uL PT (9.0-12.0) Seconds INR (0.9-1.1) Sodium (136-145) mmol/L Potassium (3.5-5.1) mmol/L Chloride (98-107) mmol/L Carbon Dioxide (21-32) mmol/L Anion Gap (3-11) BUN (6-23) mg/dl Creatinine (0.6-1.2) mg/dl Est Cr Clr Drug Dosing Est GFR ( Amer) ml/min Est GFR (Non-Af Amer) ml/min BUN/Creatinine Ratio (10-20) Glucose (70-99(Fasting)) mg/dl Lactate 3.6 H* (0.4-2.0) mmol/L Calcium (8.6-10.3) mg/dl Magnesium (1.7-2.4) mg/dl Total Bilirubin (0.2-1.0) mg/dl AST (13-39) U/L ALT (7-52) U/L Alkaline Phosphatase (34-104) U/L Troponin I High Sens (0-14) pg/ml Total Protein (6.0-8.3) gm/dl Albumin (3.4-5.0) gm/dl Globulin (2.5-4.0) gm/dl Albumin/Globulin Ratio (0.9-2) Procalcitonin < 0.05 (0-0.5) ng/ml TSH (0.300-4.500) uIu/ml Urine Color Urine Appearance (Clear) Urine pH (4.5-7.5) Ur Specific [place] (1.000-1.030) Urine Protein (Negative) Urine Glucose (UA) (Negative) Urine Ketones (Negative) Urine Blood (Negative) Urine Nitrite (Negative) Urine Bilirubin (Negative) Urine Urobilinogen (Negative) Ur Leukocyte Esterase (Negative) Urine WBC (Auto) (0-5) /hpf Urine RBC (Auto) (0-4) /hpf U Hyaline Cast (Auto) (0-5) /lpf U Epithel Cells (Auto) (0-5) /lpf Urine Bacteria (Auto) (Negative) Adenovirus (PCR) Not Detected (NotDetected) B. pertussis DNA (PCR) Not Detected (NotDetected) B.parapertussis DNA PCR Not Detected (NotDetected) C. pneumoniae DNA (PCR) Not Detected (NotDetected) Coronavirus OC43 (PCR) Not Detected (NotDetected) Coronavirus HKU1 (PCR) Not Detected (NotDetected) Coronavirus 229E (PCR) Not Detected (NotDetected) SARS-CoV-2 (PCR) DETECTED A* (NotDetected) Coronavirus NL63 (PCR) Not Detected (NotDetected) Human Metapneumovir PCR Not Detected (NotDetected) Influenza Type A (PCR) Not Detected (NotDetected) Influenza Type B (PCR) Not Detected (NotDetected) M. pneumoniae (PCR) Not Detected (NotDetected) Parainfluenza 1 (PCR) Not Detected (NotDetected) Parainfluenza 2 (PCR) Not Detected (NotDetected) Parainfluenza 3 (PCR) Not Detected (NotDetected) Parainfluenza 4 (PCR) Not Detected (NotDetected) RSV (PCR) Not Detected (NotDetected) Entero/Rhino (PCR) Not Detected (NotDetected) 02/25/23 Range/Units 10:32 WBC (4.8-10.8) K/ul RBC (4.20-5.40) M/uL Hgb (12.0-16.0) g/dl Hct (37.0-47.0) % MCV (80.0-100.0) fL MCH (25.0-34.0) pg MCHC (32.0-36.0) g/dL RDW Std Deviation (36.4-46.3) fL RDW Coeff of Liliana (11.5-14.5) % Plt Count (130-400) K/uL MPV (9.4-12.4) fL Immature Gran % (Auto) % Neut % (Auto) % Lymph % (Auto) % [place] % (Auto) % Eos % (Auto) % Baso % (Auto) % Neut # (Auto) (1.40-6.50) K/uL Lymph # (Auto) (1.20-3.40) K/uL [place] # (Auto) (0.11-0.59) K/uL Eos # (Auto) (0.00-0.50) K/uL Baso # (Auto) (0.00-0.20) K/uL Immature Gran # (Auto) (0.01-0.20) K/uL PT (9.0-12.0) Seconds INR (0.9-1.1) Sodium (136-145) mmol/L Potassium (3.5-5.1) mmol/L Chloride (98-107) mmol/L Carbon Dioxide (21-32) mmol/L Anion Gap (3-11) BUN (6-23) mg/dl Creatinine (0.6-1.2) mg/dl Est Cr Clr Drug Dosing Est GFR ( Amer) ml/min Est GFR (Non-Af Amer) ml/min BUN/Creatinine Ratio (10-20) Glucose (70-99(Fasting)) mg/dl Lactate (0.4-2.0) mmol/L Calcium (8.6-10.3) mg/dl Magnesium (1.7-2.4) mg/dl Total Bilirubin (0.2-1.0) mg/dl AST (13-39) U/L ALT (7-52) U/L Alkaline Phosphatase (34-104) U/L Troponin I High Sens (0-14) pg/ml Total Protein (6.0-8.3) gm/dl Albumin (3.4-5.0) gm/dl Globulin (2.5-4.0) gm/dl Albumin/Globulin Ratio (0.9-2) Procalcitonin (0-0.5) ng/ml TSH (0.300-4.500) uIu/ml Urine Color Yellow Urine Appearance Clear (Clear) Urine pH 6.5 (4.5-7.5) Ur Specific [place] 1.029 (1.000-1.030) Urine Protein Negative (Negative) Urine Glucose (UA) 3+ H (Negative) Urine Ketones Negative (Negative) Urine Blood Negative (Negative) Urine Nitrite Negative (Negative) Urine Bilirubin Negative (Negative) Urine Urobilinogen Negative (Negative) Ur Leukocyte Esterase Trace H (Negative) Urine WBC (Auto) 5-10 H (0-5) /hpf Urine RBC (Auto) 0-4 (0-4) /hpf U Hyaline Cast (Auto) 1-5 (0-5) /lpf U Epithel Cells (Auto) 20-30 H (0-5) /lpf Urine Bacteria (Auto) Negative (Negative) Adenovirus (PCR) (NotDetected) B. pertussis DNA (PCR) (NotDetected) B.parapertussis DNA PCR (NotDetected) C. pneumoniae DNA (PCR) (NotDetected) Coronavirus OC43 (PCR) (NotDetected) Coronavirus HKU1 (PCR) (NotDetected) Coronavirus 229E (PCR) (NotDetected) SARS-CoV-2 (PCR) (NotDetected) Coronavirus NL63 (PCR) (NotDetected) Human Metapneumovir PCR (NotDetected) Influenza Type A (PCR) (NotDetected) Influenza Type B (PCR) (NotDetected) M. pneumoniae (PCR) (NotDetected) Parainfluenza 1 (PCR) (NotDetected) Parainfluenza 2 (PCR) (NotDetected) Parainfluenza 3 (PCR) (NotDetected) Parainfluenza 4 (PCR) (NotDetected) RSV (PCR) (NotDetected) Entero/Rhino (PCR) (NotDetected) Administered Medications Sodium Chloride (Nss) 2,000 mls @ 999 mls/hr IV .Q2H1M ONE Stop: 02/25/23 12:15 Last Admin: 02/25/23 10:35 Dose: 999 mls/hr Documented By: [facility] Imaging Data Radiologist's Impression: Chest X-Ray 02/25/23 08:42 SINGLE VIEW CHEST CLINICAL HISTORY: Generalized weakness. FINDINGS: An AP, portable, upright chest radiograph is compared to study dated 12/03/2022. The cardiomediastinal silhouette is unremarkable. There is chronic elevation of the left hemidiaphragm. Dependent airspace opacities are seen bilaterally. No large pleural effusion or pneumothorax is identified. The skeletal structures are osteopenic. The bony thorax is grossly intact. IMPRESSION: Dependent airspace opacities could represent atelectasis versus a mild infectious/inflammatory pneumonitis. Clinical correlation will be required. ACT 112: Negative or not required by law. Electronically signed by: Carlos Savage M.D. 02/25/2023 9:[address] 02/25/23 08:42 CT head/brain wo con CLINICAL HISTORY: 62 years-old Female with R sided facial droop; weakness; AMS. Acutely altered mental status with strokelike symptoms TECHNIQUE: Multiple axial CT images of the head were obtained without contrast. A dose lowering technique was utilized adhering to the principles of ALARA. CT DOSE: 1016.05 mGy.cm COMPARISON: 10/14/2022 FINDINGS: Motion degraded exam. No acute intracranial hemorrhage, midline shift, intra cranial mass, acute territorial ischemia or abnormal extra-axial collection. Ventriculomegaly is again noted with transverse dimension of the lateral ventricles measuring up to 4.4 cm, stable from prior. The calvarium is intact. The paranasal sinuses, mastoid air cells, and middle ear cavities are clear. IMPRESSION: 1. Motion degraded exam without acute intracranial abnormality identified. 2. Unchanged ventriculomegaly. ACT 112: Negative or not required by law. The above report was generated using voice recognition software. It may contain grammatical, syntax or spelling errors. Electronically signed by: Vince Brito M.D. 02/25/2023 9:07 AM Discharge Plan Visit Data Chief Complaint: Altered Mental Status Stated Complaint: MENTAL STATUS CHANGE ED Provider: Marycarmen Dyson Discharge Problem: Acute confusion, Generalized weakness, Elevated lactic acid level, COVID-19 Forms Stand Alone Forms: [facility] Prescriptions Prescriptions: No Action levetiracetam [Keppra] 250 mg tablet 250 mg PO BID 90 Days Qty: 180 3RF phenytoin sodium extended [Dilantin Extended] 100 mg capsule 200 mg PO BID 90 Days Qty: 360 3RF fluticasone propionate 50 mcg/actuation spray,suspension 2 sprays INTNAS QPM famotidine 20 mg tablet 20 mg PO DAILY Jardiance 10 mg tablet 25 mg PO DAILY atorvastatin 40 mg tablet 40 mg PO HS glimepiride 2 mg tablet 2 mg PO QAM metformin 500 mg tablet extended release 24 hr 1,000 mg PO BID Women's One Daily 18 mg iron-400 mcg-500 mg Ca Tablet 1 tab PO QAM vitamin B complex Tablet 1 tab PO QAM polyethylene glycol 3350 [Miralax] 17 gram powder in packet 17 g PO BID Rx Instructions: HOLD IF HAS DIARRHEA ammonium lactate 12 % cream 1 applic TOPICAL QAM Rx Instructions: Apply to feet. docusate sodium [Colace] 100 mg Capsule 100 mg PO BID clozapine 200 mg tablet 600 mg PO HS glimepiride 1 mg Tablet 1 mg PO DIRECTED PRN (Reason: BSG >300.) food supplemt, lactose-reduced Liquid 1 ea PO QAM Rx Instructions: IF DOESN'T TAKE WITH BREAKFAST, GIVE FOR LUNCH acetaminophen [Tylenol Extra Strength] 500 mg Tablet 1,000 mg PO Q8H Qty: 30 0RF triamcinolone acetonide 0.1 % cream 1 applic TOPICAL BID PRN (Reason: Rash) Rx Instructions: apply to right buttocks prn rash valacyclovir 500 mg Tablet 500 mg PO DAILY Calcium Citrate + D 200 - 315 mcg PO DAILY Rx Instructions: two tablets daily Referrals Referrals: Delmy Jacobsen PA-C [Primary Care Provider] -
--- NOTE | 2023-02-25 09:09 | CT Scan Report ---
CT head/brain wo con CLINICAL HISTORY: 62 years-old Female with R sided facial droop; weakness; AMS. Acutely altered ment al status with strokelike symptoms TECHNIQUE: Multiple axial CT images of the head were obtained without contrast. A dose lowering tech nique was utilized adhering to the principles of ALARA. CT DOSE: 1016.05 mGy.cm COMPARISON: 10/14/2022 FINDINGS: Motion degraded exam. No acute intracranial hemorrhage, midline shift, intracranial mass, acute slade torial ischemia or abnormal extra-axial collection. Ventriculomegaly is again noted with transverse d imension of the lateral ventricles measuring up to 4.4 cm, stable from prior. The calvarium is intact. The paranasal sinuses, mastoid air cells, and middle ear cavities are clear . IMPRESSION: 1. Motion degraded exam without acute intracranial abnormality identified. 2. Unchanged ventriculomegaly. ACT 112: Negative or not required by law. The above report was generated using voice recognition software. It may contain grammatical, syntax o r spelling errors. Electronically signed by: Vince Brito M.D. 02/25/2023 9:07 AM
--- NOTE | 2023-02-25 09:10 | XRay Report ---
SINGLE VIEW CHEST CLINICAL HISTORY: Generalized weakness. FINDINGS: An AP, portable, upright chest radiograph is compared to study dated 12/03/2022. The cardiom ediastinal silhouette is unremarkable. There is chronic elevation of the left hemidiaphragm. Dependen t airspace opacities are seen bilaterally. No large pleural effusion or pneumothorax is identified. T he skeletal structures are osteopenic. The bony thorax is grossly intact. IMPRESSION: Dependent airspace opacities could represent atelectasis versus a mild infectious/inflamm atory pneumonitis. Clinical correlation will be required. ACT 112: Negative or not required by law. Electronically signed by: Carlos Savage M.D. 02/25/2023 9:08 AM
[2023-02-25 09:11] LABS: Basophils # (auto) 0.02 K/uL (0.00-0.20); Basophils % (auto) 0.2 %; Hematocrit (blood only) 46.1 % (37.0-47.0); Hemoglobin 15.1 g/dl (12.0-16.0); Immature Granulocytes # (auto) 0.03 K/uL (0.01-0.20); Immature Granulocytes % (auto) 0.3 %; Lymphocytes # (auto) 0.32 K/uL (1.20-3.40); Lymphocytes % (auto) 3.7 %; Mean Corpuscular Hemoglobin 29.2 pg (25.0-34.0); Mean Corpuscular Hgb Conc 32.8 g/dL (32.0-36.0); Mean Corpuscular Volume 89.2 fL (80.0-100.0); Mean Platelet Volume 11.6 fL (9.4-12.4); Monocytes # (auto) 0.64 K/uL (0.11-0.59); Monocytes % (auto) 7.3 %; Neutrophils % (auto) 88.5 %; Platelet Count 162 K/uL (130-400); RDW Coefficient of Variation 16.9 % (11.5-14.5); RDW Standard Deviation 54.4 fL (36.4-46.3); Red Blood Count 5.17 M/uL (4.20-5.40); White Blood Count 8.71 K/ul (4.8-10.8)
[2023-02-25 09:32] LABS: Alanine Aminotransferase 41 U/L (7-52); Albumin Globulin Ratio 1.6 (0.9-2); Albumin Level 4.5 gm/dl (3.4-5.0); Alkaline Phosphatase 145 U/L (34-104); Anion Gap 11 (3-11); Aspartate Aminotransferase 34 U/L (13-39); BUN Creatinine Ratio 23.4 (10-20); Bilirubin,Total 0.3 mg/dl (0.2-1.0); Blood Urea Nitrogen 18 mg/dl (6-23); Calcium 9.3 mg/dl (8.6-10.3); Carbon Dioxide 25 mmol/L (21-32); Chloride 102 mmol/L (98-107); Est GFR (African American) 97.3 ml/min; Est GFR (Non-African American) 83.9 ml/min; Globulin 2.8 gm/dl (2.5-4.0); Glucose 281 mg/dl (70-99(Fasting)); Potassium 4.3 mmol/L (3.5-5.1); Sodium 138 mmol/L (136-145); Total Protein 7.3 gm/dl (6.0-8.3)
[2023-02-25 09:37] LABS: Troponin I High Sensitivity < 2.3 pg/ml (0-14)
[2023-02-25 09:40] LABS: Prothrombin Time 10.5 Seconds (9.0-12.0)
[2023-02-25 09:46] LABS: Thyroid Stimulating Hormone 0.859 uIu/ml (0.300-4.500)
[2023-02-25] MEDS ORDERED: SODIUM CHLORIDE 0.9% 2,000 ML IV ONE (10:15)
[2023-02-25 10:38] LABS: Adenovirus PCR Not Detected (NotDetected); Bordetella parapertussis PCR Not Detected (NotDetected); Bordetella pertussis PCR Not Detected (NotDetected); Chlamydia pneumoniae PCR Not Detected (NotDetected); Coronavirus 229E PCR Not Detected (NotDetected); Coronavirus HKU1 PCR Not Detected (NotDetected); Coronavirus NL63 PCR Not Detected (NotDetected); Coronavirus OC43PCR Not Detected (NotDetected); Human Metapneumovirus PCR Not Detected (NotDetected); Influenza A PCR Not Detected (NotDetected); Influenza B PCR Not Detected (NotDetected); Mycoplasma pneumoniae PCR Not Detected (NotDetected); Parainfluenza Virus 1 PCR Not Detected (NotDetected); Parainfluenza Virus 2 PCR Not Detected (NotDetected); Parainfluenza Virus 3 PCR Not Detected (NotDetected); Parainfluenza Virus 4 PCR Not Detected (NotDetected); Respiratory Syncytial VirusPCR Not Detected (NotDetected); Rhinovirus/Enterovirus PCR Not Detected (NotDetected)
[2023-02-25 10:43] LABS: Coronavirus CoV-2 (COVID19)PCR DETECTED (NotDetected)
[2023-02-25 10:52] LABS: Appearance Urine Clear (Clear); Bacteria Urine Automated Negative (Negative); Bilirubin Urine Negative (Negative); Blood Urine Negative (Negative); Color Urine Yellow; Epithelial Cell Urine Auto 20-30 /lpf (0-5); Glucose Urine UA 3+ (Negative); Ketones Urine Negative (Negative); Leukocyte Esterase Urine Trace (Negative); Nitrite Urine Negative (Negative); Protein Urine Negative (Negative); RBC Urine Automated 0-4 /hpf (0-4); Specific Gravity Urine 1.029 (1.000-1.030); Urobilinogen Urine Negative (Negative); pH Urine 6.5 (4.5-7.5)
[2023-02-25] MEDS ORDERED: REMDESIVIR 200 MG in SODIUM CHLORIDE 0.9% 210 ML IV STA (12:15)
[2023-02-25] MEDS ORDERED: ACETAMINOPHEN 1,000 MG/100 ML VIAL IV STA (12:35)
[2023-02-25] MEDS ORDERED: ACETAMINOPHEN 1,000 MG/100 ML VIAL IV SCH (12:35)
[2023-02-25] MEDS ORDERED: guaiFENesin/DEXTROM SYRUP 200MG/20MG 10ML UDC PO STA (12:35)
--- NOTE | 2023-02-25 12:35 | History & Physical Report ---
Date of Service February 25, 2023 Assessment & Plan (1) Metabolic encephalopathy: (2) SARS-CoV-2 positive: (3) Sepsis: (4) Paranoid schizophrenia: (5) Complex partial seizure: (6) DMII (diabetes mellitus, type 2): (7) Elevated lactic acid level: (8) Hypertension: Plan Ms. Brittany Oneill is a 62 year old woman with a past medical history of seizures c/b ambulatory and cognitive dysfunction, schizophrenia characterized by auditory hallucinations, DMTII, recent r femoral neck fracture s/p nailing 10/2022, who is admitted due to concerns for encephalopathy thought to be secondary to dehydration/COVID. Patient following commands like squeezing of hands and wiggling of toes, but did not speak; however, maintained eye contact. [place] outside industrial sales representative at bedside. Due to tachycardia, elevated heart rates, and lactic acidosis, as well as increased baseline needs, will place on step down with telemetry. #Acute Toxic Metabolic encephalopathy -Baseline able to communicate needs/feelings/pleasantries with mild verbal delay, walks with walker, baseline intention tremor (L>R per neuro note) -suspect COVID infection contributing to encephalopathy and lethargy, as well as dehydration -Reorient as able -Treat as follows -Consider Neuro [facility] if failure to improve, pending levels for antiepileptics #Sepsis secondary to COVID Infection #Lactic Acidosis -RR 24, HR 90s-110s, lactic acidosis +COVID -UA likely contaminant, poor specimen -procal negative, no clear consolidation, dry cough on exam; otherwise afebrile -Start Remdesivir -No O2 requirement or appreciable distress, hold Decadron -Robitussin and tylenol prn, albuterol prn, flutter valve for clearance -Trend lactate -IVF resuscitation, s/p 2L ED -CTX and Azithromycin empirically while infectious work up (blood cultures result) for superimposed infectious process #Schizophrenia Chronic, stable -reports of auditory hallucinations at baseline -Continue clozapine 600mg QPM #Complex Partial Seizures Chronic, stable -Follows Dr Marshall 01/22/2023, last seizure 2010 -continue Keppra 250mg BID and phenytoin 200 BID -Ordered levetiracetam and phenytoin levels #DMTII Chronic, stable Home regimen: Metformin 1000mg BID, Glimepiride 2mg QAM, Glimepiride 1mg prn for BG >300, Jardiance 25mg daily -hold oral hypoglycemics -Start Lantus 7mg BID, with correction factor and carb consistent diet #GERD Chronic, stable -Continue home famotidine 20mg #Seasonal Allergies Chronic, stable -Continue home Flonase #HLD Chronic, stable -Continue Atorvastatin 40mg #Herpes Dermatitis Chronic, stable -Continue Valacyclovir 500mg BID #Hypertension -Previously on lisinopril, not actively taking it appears CTM DVT lovenox Bowel: home regimen, mirlax and docusate Replace lytes prn Diet DMTII, regular per last speech eval-reflux/aspiration precautions History of Present Illness Chief Complaint: [facility] Primary Care Provider: Delmy Jacobsen PA-C Ms. Brittany Oneill is a 62 year old woman with a past medical history of seizures c/b ambulatory and cognitive dysfunction, schizophrenia characterized by auditory hallucinations, DMTII, recent r femoral neck fracture s/p nailing 10/2022, who presented to ED from [facility] due to altered mental status. Patient unable to provide history, however, primary [place] outside industrial sales representative who cares for patient often at bedside. [place] rep reports that patient has appeared to be in usual state of health, noting patient does speak with noted verbal delay, but otherwise requires minimal assistance. Rep reports that patient was at baseline 02/24/2023, however, upon entering room this morning, patient was not responsive verbally and required full assistance. Rep does note that a recent aide did work with patient and was ill during time of contact with patient--but is unaware of COVID status. Upon arrival to ED, patient was hypertensive to 150s, tachypnic on room air, and tachycardic. Labs revealed lactate of 3.6, elevated glucose to 280s but no sign of DKA, negative procal, concentrated CBC (hgb 15 baseline 11-13), no leukocytosis Resp panel +COVID, otherwise negative CXR with some increased airspace opacities when compared to previous studies Patient given 2L NS in ED Allergies Allergy/AdvReac Type Severity Reaction Status Date / Time divalproex sodium Allergy Unknown Unknown Verified 02/11/23 12:10 [From Depakote] salicylates Allergy Unknown Unknown Verified 02/11/23 12:10 valproic acid Allergy Unknown Unknown Verified 02/11/23 12:10 aspirin AdvReac Severe STOMACH Verified 02/11/23 12:10 ULCER BLEEDING Home Medications Medication Instructions Recorded Confirmed Type atorvastatin 40 mg tablet 40 mg PO HS 07/17/18 02/25/23 History glimepiride 2 mg tablet 2 mg PO QAM 07/17/18 02/25/23 History metformin 500 mg tablet,extended 1,000 mg PO BID 07/17/18 02/25/23 History release 24 hr multivit-iron 18 mg-folic acid 400 1 tab PO QAM 07/17/18 02/25/23 History mcg-calcium 500 mg-minerals tablet (Women's One Daily) vitamin B complex 1 tab PO QAM 08/25/18 02/25/23 History fluticasone propionate 50 2 sprays intranasal QPM 02/15/19 02/25/23 History mcg/actuation nasal spray,suspension ammonium lactate 12 % topical cream 1 applic topical QAM 05/21/19 02/25/23 History docusate sodium 100 mg capsule 100 mg PO BID 05/21/19 02/25/23 History (Colace) triamcinolone acetonide 0.1 % 1 applic topical BID PRN Rash 07/10/21 02/25/23 History topical cream famotidine 20 mg tablet 20 mg PO DAILY 08/25/21 02/25/23 History clozapine 200 mg tablet 600 mg PO HS 10/31/21 02/25/23 History valacyclovir 500 mg tablet 500 mg PO DAILY 02/18/22 02/25/23 History food supplemt, lactose-reduced 1 ea PO QAM 10/14/22 02/25/23 History glimepiride 1 mg tablet 1 mg PO DIRECTED PRN BSG >300. 10/14/22 02/25/23 History levetiracetam 250 mg tablet 250 mg PO BID 90 days #180 tabs 10/15/22 02/25/23 Rx (Keppra) empagliflozin 10 mg tablet 25 mg PO DAILY 10/19/22 02/25/23 History (Jardiance) polyethylene glycol 3350 17 gram 17 g PO BID 10/19/22 02/25/23 History oral powder packet (Miralax) acetaminophen 500 mg tablet 1,000 mg PO Q8H #30 tabs 11/15/22 02/25/23 Rx (Tylenol Extra Strength) phenytoin sodium extended 100 mg 200 mg PO BID 90 days #360 caps 12/14/22 02/25/23 Rx capsule (Dilantin Extended) Calcium Citrate + D 200 - 315 mcg PO DAILY 02/11/23 02/25/23 History Past Med/Surg History Medical History Complex partial seizure Depression with anxiety DMII (diabetes mellitus, type 2) Heart murmur HSV (herpes simplex virus) anogenital infection Hypertension Onychomycosis Schizophrenia Surgical History History of colonoscopy Family History Mother Diabetes Other Seizures Social History Smoking Status: Never smoker Hx Alcohol Use: No Hx Substance Use: No Preferred Language: Micronesian Communication Ability: Unable Communication Ability Comment: Intellectual Disability Visual Impairment: No Limitations Hearing Ability: Normal Well Logger Required: No Beliefs That Will Affect Care: None marital status: Single Current Living Situation: Personal Care Facility current occupational status: disabled Feels Safe at Home: Yes Assistive Devices: Walker Review of Systems Review of Systems: Unobtainable due to cognitive status Physical Exam Constitutional: appears lethargic, alert to verbal stimuli, eye contact when talking to patient, follows simple commands Eyes: PERRL, conjunctivae normal, anicteric sclerae Respiratory: coarse breath sounds, dry cough, no wheezing or crackles apprecaited Cardiovascular: tachycardia Gastrointestinal (Abdomen): appears distended initially, but soft NT Neurologic: alert, responsive to verbal stimuli but lethergic Results & Data Results & Data Vital Signs (Past 12 Hours) Vital Signs Temp Pulse Pulse Resp BP BP Pulse Ox 02/25/23 10:15 107 H 24 02/25/23 10:15 159/77 H 02/25/23 10:00 110 H 20 150/77 H 96 02/25/23 09:15 115 H 25 H 97 02/25/23 09:15 111 H 18 150/88 H 96 02/25/23 08:45 114 H 18 155/73 H 97 02/25/23 09:32 113 H 18 144/73 H 98 02/25/23 08:37 114 H 02/25/23 08:22 37.4 C 114 H 18 136/71 98 O2 Del Method 02/25/23 10:15 02/25/23 10:15 02/25/23 10:00 02/25/23 09:15 02/25/23 09:15 02/25/23 08:45 02/25/23 09:32 Room Air 02/25/23 08:37 02/25/23 08:22 Room Air Laboratory Results Short CBC 02/25/23 Range/Units 08:30 WBC 8.71 (4.8-10.8) K/ul Hgb 15.1 (12.0-16.0) g/dl Hct 46.1 (37.0-47.0) % Plt Count 162 (130-400) K/uL BMP 02/25/23 08:30 Sodium 138 Potassium 4.3 Chloride 102 Carbon Dioxide 25 BUN 18 Creatinine 0.77 Glucose 281 H Calcium 9.3 Liver Function 02/25/23 Range/Units 08:30 Total Bilirubin 0.3 (0.2-1.0) mg/dl AST 34 (13-39) U/L ALT 41 (7-52) U/L Alkaline Phosphatase 145 H (34-104) U/L Albumin 4.5 (3.4-5.0) gm/dl Urine 02/25/23 Range/Units 10:32 Urine Color Yellow Urine Appearance Clear (Clear) Urine pH 6.5 (4.5-7.5) Ur Specific [place] 1.029 (1.000-1.030) Urine Protein Negative (Negative) Urine Glucose (UA) 3+ H (Negative) Medications Administered Home Medications Medication Instructions Recorded Confirmed Last Taken atorvastatin 40 mg tablet 40 mg PO HS 07/17/18 02/11/23 10/13/22 glimepiride 2 mg tablet 2 mg PO QAM 07/17/18 02/11/23 10/14/22 metformin 500 mg tablet,extended 1,000 mg PO BID 07/17/18 02/11/23 10/14/22 08:00 release 24 hr multivit-iron 18 mg-folic acid 400 1 tab PO QAM 07/17/18 02/11/23 10/14/22 mcg-calcium 500 mg-minerals tablet (Women's One Daily) vitamin B complex 1 tab PO QAM 08/25/18 02/11/23 10/14/22 fluticasone propionate 50 2 sprays intranasal QPM 02/15/19 02/11/23 10/13/22 mcg/actuation nasal spray,suspension ammonium lactate 12 % topical cream 1 applic topical QAM 05/21/19 02/11/23 10/14/22 docusate sodium 100 mg capsule 100 mg PO BID 05/21/19 02/11/23 10/14/22 08:00 (Colace) triamcinolone acetonide 0.1 % 1 applic topical BID PRN Rash 07/10/21 02/11/23 10/30/21 topical cream famotidine 20 mg tablet 20 mg PO DAILY 08/25/21 02/11/23 10/14/22 clozapine 200 mg tablet 600 mg PO HS 10/31/21 02/11/23 10/13/22 valacyclovir 500 mg tablet 500 mg PO DAILY 02/18/22 02/11/23 10/14/22 food supplemt, lactose-reduced 1 ea PO QAM 10/14/22 02/11/23 10/14/22 glimepiride 1 mg tablet 1 mg PO DIRECTED PRN BSG >300. 10/14/22 02/11/23 Unknown levetiracetam 250 mg tablet 250 mg PO BID 90 days #180 tabs 10/15/22 02/11/23 Unknown (Keppra) empagliflozin 10 mg tablet 25 mg PO DAILY 10/19/22 02/11/23 Unknown (Jardiance) polyethylene glycol 3350 17 gram 17 g PO BID 10/19/22 02/11/23 Unknown oral powder packet (Miralax) acetaminophen 500 mg tablet 1,000 mg PO Q8H #30 tabs 11/15/22 02/11/23 Unknown (Tylenol Extra Strength) phenytoin sodium extended 100 mg 200 mg PO BID 90 days #360 caps 12/14/22 02/11/23 Unknown capsule (Dilantin Extended) Calcium Citrate + D 200 - 315 mcg PO DAILY 02/11/23 02/11/23 Unknown Code Status & VTE Plan VTE Prophylaxis Plan VTE Prophylaxis will be ordered: No (3) Sepsis Sepsis acute organ dysfunction status: without acute organ dysfunction Sepsis type: sepsis due to unspecified organism Qualified Code(s): A41.9 - Sepsis, unspecified organism
--- NOTE | 2023-02-25 12:45 | Electrocardiogram Report ---
Test Reason : Blood Pressure : / mmHG Vent. Rate : 117 BPM Atrial Rate : 117 BPM P-R Int : 126 ms QRS Dur : 088 ms QT Int : 324 ms P-R-T Axes : 051 -37 066 degrees QTc Int : 451 ms Sinus tachycardia Left axis deviation Abnormal ECG When compared with ECG of 10-NOV-2022 09:52, No significant change was found Confirmed by Nayan Galarza ([id number]) on 02/25/2023 12:44:41 PM Referred By: REFERRED SELF Confirmed By:Nayan Galarza
[2023-02-25] MEDS ORDERED: DEXTROSE 50% 50 ML SYRINGE IV PRN (12:48)
[2023-02-25] MEDS ORDERED: CARBOHYDRATES FOR HYPOGLYCEMIA PO PRN (12:48)
[2023-02-25] MEDS ORDERED: GLUCOSE 40% GEL 15 GM TUBE PO PRN (12:48)
[2023-02-25] MEDS ORDERED: GLUCOSE 10 TAB/TUBE PO PRN (12:48)
[2023-02-25] MEDS ORDERED: GLUCAGON FOR INJ 1 MG VIAL SQ PRN (12:48)
[2023-02-25] MEDS ORDERED: AZITHROMYCIN 500 MG in DEXTROSE 5% 250 ML IV STA (13:25)
[2023-02-25] MEDS ORDERED: cefTRIAXone SODIUM 2,000 MG in DEXTROSE 5 % MINI-B 50 ML IV STA (13:38)
[2023-02-25] MEDS ORDERED: ENOXAPARIN INJ 40 MG/0.4 ML SYR SQ ONE (14:45)
[2023-02-25] MEDS: ALBUTEROL HFA 8 GM INHALER INH SCH ×2 (17:55→18:16)
[2023-02-25] MEDS: AMMONIUM LACTATE 12% LOTION 225 GM BTL EXT SCH (18:00)
[2023-02-25] MEDS: INSULIN ASPART PER UNIT CHARGE SC SCH ×2 (19:15→21:38)
[2023-02-25] MEDS: LANTUS PER UNIT CHARGE SQ SCH (21:36)
[2023-02-25] MEDS: cloZAPine 100 MG TAB PO SCH (21:41)
[2023-02-25] MEDS: guaiFENesin/DEXTROM SYRUP 200MG/20MG 10ML UDC PO PRN (21:42)
[2023-02-25] MEDS: PHENYTOIN SODIUM ER 100 MG CAP PO SCH (21:43)
[2023-02-25] MEDS: POLYETHYLENE (MIRALAX) 17 GM PACK PO SCH (21:48)
[2023-02-25] MEDS: ACETAMINOPHEN 325 MG TAB PO PRN (21:53)
[2023-02-25] MEDS: levETIRAcetam 250 MG TAB PO SCH (22:04)
[2023-02-25] MEDS: DOCUSATE SODIUM 100 MG CAP PO SCH (22:04)
[2023-02-25] MEDS: ATORVASTATIN 40 MG TAB PO SCH (22:04)
[2023-02-25] MEDS: FLUTICASONE PROPIONATE NA SPR 16 GM BTL NAE SCH (22:07)
[2023-02-26] MEDS: ALBUTEROL HFA 8 GM INHALER INH SCH ×7 (00:14→22:03)
[2023-02-26 07:33] LABS: Basophils # (auto) 0.01 K/uL (0.00-0.20); Basophils % (auto) 0.1 %; Hematocrit (blood only) 41.8 % (37.0-47.0); Hemoglobin 14.1 g/dl (12.0-16.0); Immature Granulocytes # (auto) 0.04 K/uL (0.01-0.20); Immature Granulocytes % (auto) 0.4 %; Lymphocytes # (auto) 0.89 K/uL (1.20-3.40); Lymphocytes % (auto) 8.7 %; Mean Corpuscular Hemoglobin 29.3 pg (25.0-34.0); Mean Corpuscular Hgb Conc 33.7 g/dL (32.0-36.0); Mean Corpuscular Volume 86.7 fL (80.0-100.0); Mean Platelet Volume 11.2 fL (9.4-12.4); Monocytes # (auto) 1.14 K/uL (0.11-0.59); Monocytes % (auto) 11.2 %; Neutrophils # (auto) 8.14 K/uL (1.40-6.50); Neutrophils % (auto) 79.6 %; Platelet Count 118 K/uL (130-400); RDW Coefficient of Variation 16.9 % (11.5-14.5); RDW Standard Deviation 54.2 fL (36.4-46.3); Red Blood Count 4.82 M/uL (4.20-5.40); White Blood Count 10.22 K/ul (4.8-10.8)
[2023-02-26 07:42] LABS: Anion Gap 7 (3-11); Calcium 7.8 mg/dl (8.6-10.3); Carbon Dioxide 24 mmol/L (21-32); Chloride 107 mmol/L (98-107); Magnesium 2.2 mg/dl (1.7-2.4); Potassium 3.8 mmol/L (3.5-5.1); Sodium 138 mmol/L (136-145)
[2023-02-26 07:48] LABS: BUN Creatinine Ratio 28.6 (10-20); Blood Urea Nitrogen 16 mg/dl (6-23); Est GFR (African American) 117.5 ml/min; Est GFR (Non-African American) 101.3 ml/min; Glucose 126 mg/dl (70-99(Fasting)); Phosphorus 2.6 mg/dl (2.5-4.9)
[2023-02-26] MEDS: PHENYTOIN SODIUM ER 100 MG CAP PO SCH ×2 (07:58→21:59)
[2023-02-26] MEDS: valACYclovir HCL 500 MG TABLET PO SCH (07:59)
[2023-02-26] MEDS: levETIRAcetam 250 MG TAB PO SCH ×2 (08:00→21:59)
[2023-02-26] MEDS: MULTIVITAMIN TAB PO SCH (08:00)
[2023-02-26] MEDS: CALCIUM 600MG + VIT D 400 IU TAB PO SCH (08:01)
[2023-02-26] MEDS: VITAMIN B COMPLEX TAB PO SCH (08:01)
[2023-02-26] MEDS: AZITHROMYCIN 250 MG TAB PO SCH (08:01)
[2023-02-26] MEDS: DOCUSATE SODIUM 100 MG CAP PO SCH ×2 (08:02→22:52)
[2023-02-26] MEDS: POLYETHYLENE (MIRALAX) 17 GM PACK PO SCH ×2 (08:02→22:03)
--- NOTE | 2023-02-26 08:11 | Hospitalist Progress Note ---
Date of Service February 26, 2023 Assessment & Plan (1) Metabolic encephalopathy: (2) SARS-CoV-2 positive: (3) Sepsis: (4) Paranoid schizophrenia: (5) Complex partial seizure: (6) DMII (diabetes mellitus, type 2): (7) Elevated lactic acid level: (8) Hypertension: Plan Ms. Brittany Oneill is a 62 year old woman with a past medical history of seizures c/b ambulatory and cognitive dysfunction, schizophrenia characterized by auditory hallucinations, DMTII, recent r femoral neck fracture s/p nailing 10/2022, who is admitted due to concerns for encephalopathy thought to be secondary to dehydration/COVID. On admission - Patient following commands like squeezing of hands and wiggling of toes, but did not speak; however, maintained eye contact. 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 tachycardia, elevated heart rates, and lactic acidosis Acute Toxic Metabolic encephalopathy -Baseline able to communicate needs/feelings/pleasantries with mild verbal delay, walks with walker, baseline intention tremor (L>R per neuro note) -suspect COVID infection contributing to encephalopathy and lethargy, as well as dehydration -Reorient as able -Treat as follows -Follows w/ Dr. Marshall (neurology) as outpt - last time seen in January - discussed w/ Dr. Marshall over the phone, pending levels for antiepileptics , can to see the pt tmrw Sepsis secondary to COVID Infection Lactic Acidosis -RR 24, HR 90s-110s, lactic acidosis +COVID -UA negat. -procal negative, no clear consolidation, dry cough on exam; otherwise afebrile -Started Remdesivir, will cont. -No O2 requirement or appreciable distress, hold Decadron -Robitussin and tylenol prn, albuterol prn, flutter valve for clearance -lactate 3.6-> 0.8 -IVF resuscitation, s/p 2L ED -CTX and Azithromycin empirically while infectious work up (blood cultures result) for superimposed infectious process Schizophrenia Chronic, stable -reports of auditory hallucinations at baseline -Continue clozapine 600mg QPM Complex Partial Seizures Chronic, stable -Follows Dr Marshall 01/22/2023, last seizure 2010 -continue Keppra 250mg BID and phenytoin 200 BID -Ordered levetiracetam and phenytoin levels #DMTII Chronic, stable Home regimen: Metformin 1000mg BID, Glimepiride 2mg QAM, Glimepiride 1mg prn for BG >300, Jardiance 25mg daily -hold oral hypoglycemics -Start Lantus 7mg BID, with correction factor and carb consistent diet #GERD Chronic, stable -Continue home famotidine 20mg #Seasonal Allergies Chronic, stable -Continue home Flonase #HLD Chronic, stable -Continue Atorvastatin 40mg #Herpes Dermatitis Chronic, stable -Continue Valacyclovir 500mg BID #Hypertension -Previously on lisinopril, not actively taking it appears CTM DVT lovenox Bowel: home regimen, mirlax and docusate Replace lytes prn Diet DMTII, regular per last speech eval-reflux/aspiration precautions Admission and Anticipated Discharge Date Admission Date: February 25, 2023 Subjective Pt seen in follow up of AMS, + COVID laying in bed in NAD, on RA Appears drowsy, answers some questions appropriately Follows simple commands such as raising her arms and moving her legs Denies any headache, shortness of breath, abd. pain, chest pain, or any discomfort. Difficult to communicate with. Follows w/ Dr. Marshall from neurology - discussed w/ Dr. Marshall over the phone pt's baseline mental status. Plans to see the pt tomorrow. Review of Systems Review of Systems: All systems reviewed & are unremarkable except as noted in Subjective and Unobtainable due to cognitive status Physical Exam Physical Exam: Constitutional:L thin F in NAD, dr lynn Eyes: PERRL, conjunctiva e normal, anicteri c sclerae Respiratory: + rhonchi diffuse, no wheezing Cardiovascular:L rrr Gastrointestinal ( Abdomen): soft NT, + bowel sounds Neurologic: drowsy, responsiv e to verbal stimul i, eye contact whe n talking to patie nt, follows simple commands, moves e xtremities, answer s simple questions yes/no Results & Data Results & Data Vital Signs (Past 12 Hours) Vital Signs Temp Pulse Pulse Resp BP BP Pulse Ox 02/26/23 07:56 37.3 C 82 18 110/68 97 02/26/23 07:50 81 16 96 02/26/23 07:43 88 02/26/23 05:53 94 H 02/26/23 04:00 02/26/23 04:00 36.9 C 93 H 20 130/72 98 02/26/23 03:30 02/26/23 03:00 96 H 18 120/62 96 02/26/23 02:30 96 H 16 132/68 97 02/26/23 02:00 96 H 18 133/68 97 02/26/23 01:30 99 H 18 123/75 97 02/26/23 01:00 99 H 17 116/70 97 02/26/23 00:30 101 H 16 129/68 96 02/26/23 00:15 37.7 C H 02/26/23 00:00 106 H 20 131/64 94 02/25/23 23:30 106 H 20 122/67 94 02/25/23 23:00 105 H 25 H 114/62 93 02/25/23 22:30 93 H 27 H 95 02/25/23 22:30 117/63 02/25/23 22:00 86 23 92 02/25/23 22:00 138/75 02/25/23 21:30 91 H 18 129/68 97 02/25/23 21:00 91 H 22 120/78 95 02/25/23 20:30 90 24 124/80 98 02/25/23 22:58 104 H 02/25/23 21:54 39.8 C H 02/25/23 20:53 O2 Del Method 02/26/23 07:56 Room Air 02/26/23 07:50 Room Air 02/26/23 07:43 02/26/23 05:53 02/26/23 04:00 Room Air 02/26/23 04:00 Room Air 02/26/23 03:30 Room Air 02/26/23 03:00 Room Air 02/26/23 02:30 02/26/23 02:00 Room Air 02/26/23 01:30 Room Air 02/26/23 01:00 Room Air 02/26/23 00:30 Room Air 02/26/23 00:15 02/26/23 00:00 Room Air 02/25/23 23:30 Room Air 02/25/23 23:00 Room Air 02/25/23 22:30 Room Air 02/25/23 22:30 02/25/23 22:00 Room Air 02/25/23 22:00 02/25/23 21:30 Room Air 02/25/23 21:00 Room Air 02/25/23 20:30 Room Air 02/25/23 22:58 02/25/23 21:54 02/25/23 20:53 Room Air Laboratory Results 02/26/23 02/26/23 02/26/23 Range/Units 07:30 07:00 07:00 WBC 10.22 (4.8-10.8) K/ul RBC 4.82 (4.20-5.40) M/uL Hgb 14.1 (12.0-16.0) g/dl Hct 41.8 (37.0-47.0) % MCV 86.7 (80.0-100.0) fL MCH 29.3 (25.0-34.0) pg MCHC 33.7 (32.0-36.0) g/dL RDW Std Deviation 54.2 H (36.4-46.3) fL RDW Coeff of Liliana 16.9 H (11.5-14.5) % Plt Count 118 L (130-400) K/uL MPV 11.2 (9.4-12.4) fL Immature Gran % (Auto) 0.4 % Neut % (Auto) 79.6 % Lymph % (Auto) 8.7 % Ida % (Auto) 11.2 % Eos % (Auto) 0.0 % Baso % (Auto) 0.1 % Neut # (Auto) 8.14 H (1.40-6.50) K/uL Lymph # (Auto) 0.89 L (1.20-3.40) K/uL Ida # (Auto) 1.14 H (0.11-0.59) K/uL Eos # (Auto) 0.00 (0.00-0.50) K/uL Baso # (Auto) 0.01 (0.00-0.20) K/uL Immature Gran # (Auto) 0.04 (0.01-0.20) K/uL PT (9.0-12.0) Seconds INR (0.9-1.1) Sodium 138 (136-145) mmol/L Potassium 3.8 (3.5-5.1) mmol/L Chloride 107 (98-107) mmol/L Carbon Dioxide 24 (21-32) mmol/L Anion Gap 7 (3-11) BUN 16 (6-23) mg/dl Creatinine 0.56 L (0.6-1.2) mg/dl Est Cr Clr Drug Dosing Not Reportable Est GFR ( Amer) 117.5 ml/min Est GFR (Non-Af Amer) 101.3 ml/min BUN/Creatinine Ratio 28.6 H (10-20) Glucose 126 H (70-99(Fasting)) mg/dl POC Glucose 124 H (70-99) mg/dl Lactate (0.4-2.0) mmol/L Calcium 7.8 L (8.6-10.3) mg/dl Phosphorus 2.6 (2.5-4.9) mg/dl Magnesium 2.2 (1.7-2.4) mg/dl Total Bilirubin (0.2-1.0) mg/dl AST (13-39) U/L ALT (7-52) U/L Alkaline Phosphatase (34-104) U/L Troponin I High Sens (0-14) pg/ml Total Protein (6.0-8.3) gm/dl Albumin (3.4-5.0) gm/dl Globulin (2.5-4.0) gm/dl Albumin/Globulin Ratio (0.9-2) Procalcitonin (0-0.5) ng/ml TSH (0.300-4.500) uIu/ml Urine Color Urine Appearance (Clear) Urine pH (4.5-7.5) Ur Specific [place] (1.000-1.030) Urine Protein (Negative) Urine Glucose (UA) (Negative) Urine Ketones (Negative) Urine Blood (Negative) Urine Nitrite (Negative) Urine Bilirubin (Negative) Urine Urobilinogen (Negative) Ur Leukocyte Esterase (Negative) Urine WBC (Auto) (0-5) /hpf Urine RBC (Auto) (0-4) /hpf U Hyaline Cast (Auto) (0-5) /lpf U Epithel Cells (Auto) (0-5) /lpf Urine Bacteria (Auto) (Negative) Phenytoin (10-20) mcg/ml Levetiracetam Adenovirus (PCR) (NotDetected) B. pertussis DNA (PCR) (NotDetected) B.parapertussis DNA PCR (NotDetected) C. pneumoniae DNA (PCR) (NotDetected) Coronavirus OC43 (PCR) (NotDetected) Coronavirus HKU1 (PCR) (NotDetected) Coronavirus 229E (PCR) (NotDetected) SARS-CoV-2 (PCR) (NotDetected) Coronavirus NL63 (PCR) (NotDetected) Human Metapneumovir PCR (NotDetected) Influenza Type A (PCR) (NotDetected) Influenza Type B (PCR) (NotDetected) M. pneumoniae (PCR) (NotDetected) Parainfluenza 1 (PCR) (NotDetected) Parainfluenza 2 (PCR) (NotDetected) Parainfluenza 3 (PCR) (NotDetected) Parainfluenza 4 (PCR) (NotDetected) RSV (PCR) (NotDetected) Entero/Rhino (PCR) (NotDetected) 02/25/23 02/25/23 02/25/23 Range/Units 21:29 17:51 16:03 WBC (4.8-10.8) K/ul RBC (4.20-5.40) M/uL Hgb (12.0-16.0) g/dl Hct (37.0-47.0) % MCV (80.0-100.0) fL MCH (25.0-34.0) pg MCHC (32.0-36.0) g/dL RDW Std Deviation (36.4-46.3) fL RDW Coeff of Liliana (11.5-14.5) % Plt Count (130-400) K/uL MPV (9.4-12.4) fL Immature Gran % (Auto) % Neut % (Auto) % Lymph % (Auto) % Ida % (Auto) % Eos % (Auto) % Baso % (Auto) % Neut # (Auto) (1.40-6.50) K/uL Lymph # (Auto) (1.20-3.40) K/uL Ida # (Auto) (0.11-0.59) K/uL Eos # (Auto) (0.00-0.50) K/uL Baso # (Auto) (0.00-0.20) K/uL Immature Gran # (Auto) (0.01-0.20) K/uL PT (9.0-12.0) Seconds INR (0.9-1.1) Sodium (136-145) mmol/L Potassium (3.5-5.1) mmol/L Chloride (98-107) mmol/L Carbon Dioxide (21-32) mmol/L Anion Gap (3-11) BUN (6-23) mg/dl Creatinine (0.6-1.2) mg/dl Est Cr Clr Drug Dosing Est GFR ( Amer) ml/min Est GFR (Non-Af Amer) ml/min BUN/Creatinine Ratio (10-20) Glucose (70-99(Fasting)) mg/dl POC Glucose 129 H 179 H (70-99) mg/dl Lactate 0.8 (0.4-2.0) mmol/L Calcium (8.6-10.3) mg/dl Phosphorus (2.5-4.9) mg/dl Magnesium (1.7-2.4) mg/dl Total Bilirubin (0.2-1.0) mg/dl AST (13-39) U/L ALT (7-52) U/L Alkaline Phosphatase (34-104) U/L Troponin I High Sens (0-14) pg/ml Total Protein (6.0-8.3) gm/dl Albumin (3.4-5.0) gm/dl Globulin (2.5-4.0) gm/dl Albumin/Globulin Ratio (0.9-2) Procalcitonin (0-0.5) ng/ml TSH (0.300-4.500) uIu/ml Urine Color Urine Appearance (Clear) Urine pH (4.5-7.5) Ur Specific [place] (1.000-1.030) Urine Protein (Negative) Urine Glucose (UA) (Negative) Urine Ketones (Negative) Urine Blood (Negative) Urine Nitrite (Negative) Urine Bilirubin (Negative) Urine Urobilinogen (Negative) Ur Leukocyte Esterase (Negative) Urine WBC (Auto) (0-5) /hpf Urine RBC (Auto) (0-4) /hpf U Hyaline Cast (Auto) (0-5) /lpf U Epithel Cells (Auto) (0-5) /lpf Urine Bacteria (Auto) (Negative) Phenytoin (10-20) mcg/ml Levetiracetam Adenovirus (PCR) (NotDetected) B. pertussis DNA (PCR) (NotDetected) B.parapertussis DNA PCR (NotDetected) C. pneumoniae DNA (PCR) (NotDetected) Coronavirus OC43 (PCR) (NotDetected) Coronavirus HKU1 (PCR) (NotDetected) Coronavirus 229E (PCR) (NotDetected) SARS-CoV-2 (PCR) (NotDetected) Coronavirus NL63 (PCR) (NotDetected) Human Metapneumovir PCR (NotDetected) Influenza Type A (PCR) (NotDetected) Influenza Type B (PCR) (NotDetected) M. pneumoniae (PCR) (NotDetected) Parainfluenza 1 (PCR) (NotDetected) Parainfluenza 2 (PCR) (NotDetected) Parainfluenza 3 (PCR) (NotDetected) Parainfluenza 4 (PCR) (NotDetected) RSV (PCR) (NotDetected) Entero/Rhino (PCR) (NotDetected) 02/25/23 02/25/23 02/25/23 Range/Units 16:03 13:55 12:15 WBC (4.8-10.8) K/ul RBC (4.20-5.40) M/uL Hgb (12.0-16.0) g/dl Hct (37.0-47.0) % MCV (80.0-100.0) fL MCH (25.0-34.0) pg MCHC (32.0-36.0) g/dL RDW Std Deviation (36.4-46.3) fL RDW Coeff of Liliana (11.5-14.5) % Plt Count (130-400) K/uL MPV (9.4-12.4) fL Immature Gran % (Auto) % Neut % (Auto) % Lymph % (Auto) % Ida % (Auto) % Eos % (Auto) % Baso % (Auto) % Neut # (Auto) (1.40-6.50) K/uL Lymph # (Auto) (1.20-3.40) K/uL Ida # (Auto) (0.11-0.59) K/uL Eos # (Auto) (0.00-0.50) K/uL Baso # (Auto) (0.00-0.20) K/uL Immature Gran # (Auto) (0.01-0.20) K/uL PT (9.0-12.0) Seconds INR (0.9-1.1) Sodium (136-145) mmol/L Potassium (3.5-5.1) mmol/L Chloride (98-107) mmol/L Carbon Dioxide (21-32) mmol/L Anion Gap (3-11) BUN (6-23) mg/dl Creatinine (0.6-1.2) mg/dl Est Cr Clr Drug Dosing Est GFR ( Amer) ml/min Est GFR (Non-Af Amer) ml/min BUN/Creatinine Ratio (10-20) Glucose (70-99(Fasting)) mg/dl POC Glucose (70-99) mg/dl Lactate Cancelled (0.4-2.0) mmol/L Calcium (8.6-10.3) mg/dl Phosphorus (2.5-4.9) mg/dl Magnesium (1.7-2.4) mg/dl Total Bilirubin (0.2-1.0) mg/dl AST (13-39) U/L ALT (7-52) U/L Alkaline Phosphatase (34-104) U/L Troponin I High Sens (0-14) pg/ml Total Protein (6.0-8.3) gm/dl Albumin (3.4-5.0) gm/dl Globulin (2.5-4.0) gm/dl Albumin/Globulin Ratio (0.9-2) Procalcitonin (0-0.5) ng/ml TSH (0.300-4.500) uIu/ml Urine Color Urine Appearance (Clear) Urine pH (4.5-7.5) Ur Specific [place] (1.000-1.030) Urine Protein (Negative) Urine Glucose (UA) (Negative) Urine Ketones (Negative) Urine Blood (Negative) Urine Nitrite (Negative) Urine Bilirubin (Negative) Urine Urobilinogen (Negative) Ur Leukocyte Esterase (Negative) Urine WBC (Auto) (0-5) /hpf Urine RBC (Auto) (0-4) /hpf U Hyaline Cast (Auto) (0-5) /lpf U Epithel Cells (Auto) (0-5) /lpf Urine Bacteria (Auto) (Negative) Phenytoin < 3.0 L (10-20) mcg/ml Levetiracetam Pending Adenovirus (PCR) (NotDetected) B. pertussis DNA (PCR) (NotDetected) B.parapertussis DNA PCR (NotDetected) C. pneumoniae DNA (PCR) (NotDetected) Coronavirus OC43 (PCR) (NotDetected) Coronavirus HKU1 (PCR) (NotDetected) Coronavirus 229E (PCR) (NotDetected) SARS-CoV-2 (PCR) (NotDetected) Coronavirus NL63 (PCR) (NotDetected) Human Metapneumovir PCR (NotDetected) Influenza Type A (PCR) (NotDetected) Influenza Type B (PCR) (NotDetected) M. pneumoniae (PCR) (NotDetected) Parainfluenza 1 (PCR) (NotDetected) Parainfluenza 2 (PCR) (NotDetected) Parainfluenza 3 (PCR) (NotDetected) Parainfluenza 4 (PCR) (NotDetected) RSV (PCR) (NotDetected) Entero/Rhino (PCR) (NotDetected) 02/25/23 02/25/23 02/25/23 Range/Units 10:32 10:01 09:28 WBC (4.8-10.8) K/ul RBC (4.20-5.40) M/uL Hgb (12.0-16.0) g/dl Hct (37.0-47.0) % MCV (80.0-100.0) fL MCH (25.0-34.0) pg MCHC (32.0-36.0) g/dL RDW Std Deviation (36.4-46.3) fL RDW Coeff of Liliana (11.5-14.5) % Plt Count (130-400) K/uL MPV (9.4-12.4) fL Immature Gran % (Auto) % Neut % (Auto) % Lymph % (Auto) % Ida % (Auto) % Eos % (Auto) % Baso % (Auto) % Neut # (Auto) (1.40-6.50) K/uL Lymph # (Auto) (1.20-3.40) K/uL Ida # (Auto) (0.11-0.59) K/uL Eos # (Auto) (0.00-0.50) K/uL Baso # (Auto) (0.00-0.20) K/uL Immature Gran # (Auto) (0.01-0.20) K/uL PT (9.0-12.0) Seconds INR (0.9-1.1) Sodium (136-145) mmol/L Potassium (3.5-5.1) mmol/L Chloride (98-107) mmol/L Carbon Dioxide (21-32) mmol/L Anion Gap (3-11) BUN (6-23) mg/dl Creatinine (0.6-1.2) mg/dl Est Cr Clr Drug Dosing Est GFR ( Amer) ml/min Est GFR (Non-Af Amer) ml/min BUN/Creatinine Ratio (10-20) Glucose (70-99(Fasting)) mg/dl POC Glucose (70-99) mg/dl Lactate 3.6 H* (0.4-2.0) mmol/L Calcium (8.6-10.3) mg/dl Phosphorus (2.5-4.9) mg/dl Magnesium (1.7-2.4) mg/dl Total Bilirubin (0.2-1.0) mg/dl AST (13-39) U/L ALT (7-52) U/L Alkaline Phosphatase (34-104) U/L Troponin I High Sens (0-14) pg/ml Total Protein (6.0-8.3) gm/dl Albumin (3.4-5.0) gm/dl Globulin (2.5-4.0) gm/dl Albumin/Globulin Ratio (0.9-2) Procalcitonin (0-0.5) ng/ml TSH (0.300-4.500) uIu/ml Urine Color Yellow Urine Appearance Clear (Clear) Urine pH 6.5 (4.5-7.5) Ur Specific [place] 1.029 (1.000-1.030) Urine Protein Negative (Negative) Urine Glucose (UA) 3+ H (Negative) Urine Ketones Negative (Negative) Urine Blood Negative (Negative) Urine Nitrite Negative (Negative) Urine Bilirubin Negative (Negative) Urine Urobilinogen Negative (Negative) Ur Leukocyte Esterase Trace H (Negative) Urine WBC (Auto) 5-10 H (0-5) /hpf Urine RBC (Auto) 0-4 (0-4) /hpf U Hyaline Cast (Auto) 1-5 (0-5) /lpf U Epithel Cells (Auto) 20-30 H (0-5) /lpf Urine Bacteria (Auto) Negative (Negative) Phenytoin (10-20) mcg/ml Levetiracetam Adenovirus (PCR) Not Detected (NotDetected) B. pertussis DNA (PCR) Not Detected (NotDetected) B.parapertussis DNA PCR Not Detected (NotDetected) C. pneumoniae DNA (PCR) Not Detected (NotDetected) Coronavirus OC43 (PCR) Not Detected (NotDetected) Coronavirus HKU1 (PCR) Not Detected (NotDetected) Coronavirus 229E (PCR) Not Detected (NotDetected) SARS-CoV-2 (PCR) DETECTED A* (NotDetected) Coronavirus NL63 (PCR) Not Detected (NotDetected) Human Metapneumovir PCR Not Detected (NotDetected) Influenza Type A (PCR) Not Detected (NotDetected) Influenza Type B (PCR) Not Detected (NotDetected) M. pneumoniae (PCR) Not Detected (NotDetected) Parainfluenza 1 (PCR) Not Detected (NotDetected) Parainfluenza 2 (PCR) Not Detected (NotDetected) Parainfluenza 3 (PCR) Not Detected (NotDetected) Parainfluenza 4 (PCR) Not Detected (NotDetected) RSV (PCR) Not Detected (NotDetected) Entero/Rhino (PCR) Not Detected (NotDetected) 02/25/23 02/25/23 02/25/23 Range/Units 08:42 08:30 08:30 WBC (4.8-10.8) K/ul RBC (4.20-5.40) M/uL Hgb (12.0-16.0) g/dl Hct (37.0-47.0) % MCV (80.0-100.0) fL MCH (25.0-34.0) pg MCHC (32.0-36.0) g/dL RDW Std Deviation (36.4-46.3) fL RDW Coeff of Liliana (11.5-14.5) % Plt Count (130-400) K/uL MPV (9.4-12.4) fL Immature Gran % (Auto) % Neut % (Auto) % Lymph % (Auto) % Ida % (Auto) % Eos % (Auto) % Baso % (Auto) % Neut # (Auto) (1.40-6.50) K/uL Lymph # (Auto) (1.20-3.40) K/uL Ida # (Auto) (0.11-0.59) K/uL Eos # (Auto) (0.00-0.50) K/uL Baso # (Auto) (0.00-0.20) K/uL Immature Gran # (Auto) (0.01-0.20) K/uL PT 10.5 (9.0-12.0) Seconds INR 1.0 (0.9-1.1) Sodium 138 (136-145) mmol/L Potassium 4.3 (3.5-5.1) mmol/L Chloride 102 (98-107) mmol/L Carbon Dioxide 25 (21-32) mmol/L Anion Gap 11 (3-11) BUN 18 (6-23) mg/dl Creatinine 0.77 (0.6-1.2) mg/dl Est Cr Clr Drug Dosing Not Reportable Est GFR ( Amer) 97.3 ml/min Est GFR (Non-Af Amer) 83.9 ml/min BUN/Creatinine Ratio 23.4 H (10-20) Glucose 281 H (70-99(Fasting)) mg/dl POC Glucose (70-99) mg/dl Lactate (0.4-2.0) mmol/L Calcium 9.3 (8.6-10.3) mg/dl Phosphorus (2.5-4.9) mg/dl Magnesium 2.0 (1.7-2.4) mg/dl Total Bilirubin 0.3 (0.2-1.0) mg/dl AST 34 (13-39) U/L ALT 41 (7-52) U/L Alkaline Phosphatase 145 H (34-104) U/L Troponin I High Sens < 2.3 (0-14) pg/ml Total Protein 7.3 (6.0-8.3) gm/dl Albumin 4.5 (3.4-5.0) gm/dl Globulin 2.8 (2.5-4.0) gm/dl Albumin/Globulin Ratio 1.6 (0.9-2) Procalcitonin < 0.05 (0-0.5) ng/ml TSH 0.859 (0.300-4.500) uIu/ml Urine Color Urine Appearance (Clear) Urine pH (4.5-7.5) Ur Specific [place] (1.000-1.030) Urine Protein (Negative) Urine Glucose (UA) (Negative) Urine Ketones (Negative) Urine Blood (Negative) Urine Nitrite (Negative) Urine Bilirubin (Negative) Urine Urobilinogen (Negative) Ur Leukocyte Esterase (Negative) Urine WBC (Auto) (0-5) /hpf Urine RBC (Auto) (0-4) /hpf U Hyaline Cast (Auto) (0-5) /lpf U Epithel Cells (Auto) (0-5) /lpf Urine Bacteria (Auto) (Negative) Phenytoin (10-20) mcg/ml Levetiracetam Adenovirus (PCR) (NotDetected) B. pertussis DNA (PCR) (NotDetected) B.parapertussis DNA PCR (NotDetected) C. pneumoniae DNA (PCR) (NotDetected) Coronavirus OC43 (PCR) (NotDetected) Coronavirus HKU1 (PCR) (NotDetected) Coronavirus 229E (PCR) (NotDetected) SARS-CoV-2 (PCR) (NotDetected) Coronavirus NL63 (PCR) (NotDetected) Human Metapneumovir PCR (NotDetected) Influenza Type A (PCR) (NotDetected) Influenza Type B (PCR) (NotDetected) M. pneumoniae (PCR) (NotDetected) Parainfluenza 1 (PCR) (NotDetected) Parainfluenza 2 (PCR) (NotDetected) Parainfluenza 3 (PCR) (NotDetected) Parainfluenza 4 (PCR) (NotDetected) RSV (PCR) (NotDetected) Entero/Rhino (PCR) (NotDetected) 02/25/23 Range/Units 08:30 WBC 8.71 (4.8-10.8) K/ul RBC 5.17 (4.20-5.40) M/uL Hgb 15.1 (12.0-16.0) g/dl Hct 46.1 (37.0-47.0) % MCV 89.2 (80.0-100.0) fL MCH 29.2 (25.0-34.0) pg MCHC 32.8 (32.0-36.0) g/dL RDW Std Deviation 54.4 H (36.4-46.3) fL RDW Coeff of Liliana 16.9 H (11.5-14.5) % Plt Count 162 (130-400) K/uL MPV 11.6 (9.4-12.4) fL Immature Gran % (Auto) 0.3 % Neut % (Auto) 88.5 % Lymph % (Auto) 3.7 % Ida % (Auto) 7.3 % Eos % (Auto) 0.0 % Baso % (Auto) 0.2 % Neut # (Auto) 7.70 H (1.40-6.50) K/uL Lymph # (Auto) 0.32 L (1.20-3.40) K/uL Ida # (Auto) 0.64 H (0.11-0.59) K/uL Eos # (Auto) 0.00 (0.00-0.50) K/uL Baso # (Auto) 0.02 (0.00-0.20) K/uL Immature Gran # (Auto) 0.03 (0.01-0.20) K/uL PT (9.0-12.0) Seconds INR (0.9-1.1) Sodium (136-145) mmol/L Potassium (3.5-5.1) mmol/L Chloride (98-107) mmol/L Carbon Dioxide (21-32) mmol/L Anion Gap (3-11) BUN (6-23) mg/dl Creatinine (0.6-1.2) mg/dl Est Cr Clr Drug Dosing Est GFR ( Amer) ml/min Est GFR (Non-Af Amer) ml/min BUN/Creatinine Ratio (10-20) Glucose (70-99(Fasting)) mg/dl POC Glucose (70-99) mg/dl Lactate (0.4-2.0) mmol/L Calcium (8.6-10.3) mg/dl Phosphorus (2.5-4.9) mg/dl Magnesium (1.7-2.4) mg/dl Total Bilirubin (0.2-1.0) mg/dl AST (13-39) U/L ALT (7-52) U/L Alkaline Phosphatase (34-104) U/L Troponin I High Sens (0-14) pg/ml Total Protein (6.0-8.3) gm/dl Albumin (3.4-5.0) gm/dl Globulin (2.5-4.0) gm/dl Albumin/Globulin Ratio (0.9-2) Procalcitonin (0-0.5) ng/ml TSH (0.300-4.500) uIu/ml Urine Color Urine Appearance (Clear) Urine pH (4.5-7.5) Ur Specific [place] (1.000-1.030) Urine Protein (Negative) Urine Glucose (UA) (Negative) Urine Ketones (Negative) Urine Blood (Negative) Urine Nitrite (Negative) Urine Bilirubin (Negative) Urine Urobilinogen (Negative) Ur Leukocyte Esterase (Negative) Urine WBC (Auto) (0-5) /hpf Urine RBC (Auto) (0-4) /hpf U Hyaline Cast (Auto) (0-5) /lpf U Epithel Cells (Auto) (0-5) /lpf Urine Bacteria (Auto) (Negative) Phenytoin (10-20) mcg/ml Levetiracetam Adenovirus (PCR) (NotDetected) B. pertussis DNA (PCR) (NotDetected) B.parapertussis DNA PCR (NotDetected) C. pneumoniae DNA (PCR) (NotDetected) Coronavirus OC43 (PCR) (NotDetected) Coronavirus HKU1 (PCR) (NotDetected) Coronavirus 229E (PCR) (NotDetected) SARS-CoV-2 (PCR) (NotDetected) Coronavirus NL63 (PCR) (NotDetected) Human Metapneumovir PCR (NotDetected) Influenza Type A (PCR) (NotDetected) Influenza Type B (PCR) (NotDetected) M. pneumoniae (PCR) (NotDetected) Parainfluenza 1 (PCR) (NotDetected) Parainfluenza 2 (PCR) (NotDetected) Parainfluenza 3 (PCR) (NotDetected) Parainfluenza 4 (PCR) (NotDetected) RSV (PCR) (NotDetected) Entero/Rhino (PCR) (NotDetected) Medications Administered Current Inpatient Medications Acetaminophen (Acetaminophen 325 Mg Tab) 650 mg PO Q6H PRN PRN Reason: pain, fever Stop: 03/27/23 12:36 Last Admin: 02/25/23 21:53 Dose: 650 mg Albuterol (Albuterol Hfa 8 Gm Inhaler) 2 puffs INH Q4H DELMI Stop: 03/27/23 14:14 Last Admin: 02/26/23 07:48 Dose: 2 puffs Atorvastatin Calcium (Atorvastatin 40 Mg Tab) 40 mg PO HS DELMI Stop: 03/27/23 20:59 Last Admin: 02/25/23 22:04 Dose: 40 mg Azithromycin (Azithromycin 250 Mg Tab) 250 mg PO QAM DELMI Stop: 03/05/23 08:59 Last Admin: 02/26/23 08:01 Dose: 250 mg Calcium/Vitamin D (Calcium 600mg + Vit D 400 Iu Tab) 1 tab PO DAILY DELMI Stop: 03/28/23 08:59 Last Admin: 02/26/23 08:01 Dose: 1 tab Clozapine (Clozapine 100 Mg Tab) 600 mg PO HS DELMI Stop: 03/27/23 20:59 Last Admin: 02/25/23 21:41 Dose: 600 mg Dextrose (Dextrose 50% 50 Ml Syringe) 25 - 50 ml IV UD PRN; Protocol PRN Reason: Hypoglycemia Protocol Stop: 03/27/23 12:47 Docusate Sodium (Docusate Sodium 100 Mg Cap) 100 mg PO BID DELMI Stop: 03/27/23 20:59 Last Admin: 02/26/23 08:02 Dose: Not Given Enoxaparin Sodium (Enoxaparin Inj 40 Mg/0.4 Ml Syr) 40 mg SQ Q24H DELMI Stop: 03/28/23 15:59 Famotidine (Famotidine 20 Mg Tab) 20 mg PO DAILY [facility] Stop: 03/28/23 08:59 Fluticasone Propionate (Fluticasone Propionate Na Spr 16 Gm Btl) 2 sprays LUIS MANUEL QPM DELMI Stop: 03/27/23 20:59 Last Admin: 02/25/23 22:07 Dose: Not Given Glucagon (Glucagon For Inj 1 Mg Vial) 1 mg SQ UD PRN; Protocol PRN Reason: Hypoglycemia Protocol Stop: 03/27/23 12:47 Glucose (Glucose 10 Tab/Tube) 4 - 8 tab PO UD PRN; Protocol PRN Reason: Hypoglycemia Treatment Stop: 03/27/23 12:47 Glucose (Glucose 40% Gel 15 Gm Tube) 15 - 30 gm PO UD PRN; Protocol PRN Reason: Hypoglycemia Protocol Stop: 03/27/23 12:47 Guaifenesin/Dextromethorphan (Guaifenesin/Dextrom Syrup 200mg/20mg 10ml Udc) 10 ml PO Q6H PRN PRN Reason: Cough Stop: 03/27/23 12:34 Last Admin: 02/25/23 21:42 Dose: 10 ml Remdesivir 100 mg/ Sodium (Chloride) 250 mls @ 250 mls/hr IV Q24H [facility] Stop: 03/01/23 12:59 Ceftriaxone Sodium 2,000 mg/ (Dextrose) 50 mls @ 100 mls/hr IV Q24H [facility]; Protocol Stop: 02/27/23 13:29 Insulin Aspart (Insulin Aspart Per Unit Charge) 0 units SC ACHS [facility] Stop: 03/27/23 16:29 Last Admin: 02/25/23 21:38 Dose: Not Given Insulin Glargine (Lantus Per Unit Charge) 7 units SQ BID [facility] Stop: 03/27/23 20:59 Last Admin: 02/25/23 21:36 Dose: 7 units Lactic Acid (Ammonium Lactate 12% Lotion 225 Gm Btl) 15 gm EXT QAM [facility] Stop: 03/27/23 15:59 Last Admin: 02/25/23 18:00 Dose: 15 gm Levetiracetam (Levetiracetam 250 Mg Tab) 250 mg PO BID [facility] Stop: 03/27/23 20:59 Last Admin: 02/26/23 08:00 Dose: 250 mg Miscellaneous (Carbohydrates For Hypoglycemia ) 15 - 30 gm PO UD PRN PRN Reason: Hypoglycemia Protocol Stop: 03/27/23 12:47 Multivitamins (Multivitamin Tab) 1 tab PO QAM DELMI Stop: 03/28/23 08:59 Last Admin: 02/26/23 08:00 Dose: 1 tab Phenytoin Sodium (Phenytoin Sodium Er 100 Mg Cap) 200 mg PO BID DELMI Stop: 03/27/23 20:59 Last Admin: 02/26/23 07:58 Dose: 200 mg Polyethylene Glycol (Polyethylene (Miralax) 17 Gm Pack) 17 gm PO BID DELMI Stop: 03/27/23 20:59 Last Admin: 02/26/23 08:02 Dose: Not Given Valacyclovir HCl (Valacyclovir Hcl 500 Mg Tablet) 500 mg PO DAILY DELMI Stop: 03/05/23 08:59 Last Admin: 02/26/23 07:59 Dose: 500 mg Vitamin B Complex (Vitamin B Complex Tab) 1 tab PO QAM [facility] Stop: 03/28/23 08:59 Last Admin: 02/26/23 08:01 Dose: 1 tab (3) Sepsis Sepsis acute organ dysfunction status: without acute organ dysfunction Sepsis type: sepsis due to unspecified organism Qualified Code(s): A41.9 - Sepsis, unspecified organism
[2023-02-26] MEDS: INSULIN ASPART PER UNIT CHARGE SC SCH ×4 (09:19→21:50)
[2023-02-26] MEDS: LANTUS PER UNIT CHARGE SQ SCH ×2 (09:20→21:50)
[2023-02-26] MEDS: AMMONIUM LACTATE 12% LOTION 225 GM BTL EXT SCH (09:25)
[2023-02-26] MEDS: ACETAMINOPHEN 325 MG TAB PO PRN ×2 (11:30→22:06)
[2023-02-26] MEDS: FAMOTIDINE 20 MG TAB PO SCH (11:32)
[2023-02-26] MEDS: REMDESIVIR 100 MG in SODIUM CHLORIDE 0.9% 230 ML IV SCH (12:50)
[2023-02-26] MEDS ORDERED: cefTRIAXone SODIUM 2,000 MG in DEXTROSE 5 % MINI-B 50 ML IV SCH (13:30)
[2023-02-26] MEDS: ENOXAPARIN INJ 40 MG/0.4 ML SYR SQ SCH (17:36)
[2023-02-26] MEDS: ATORVASTATIN 40 MG TAB PO SCH (21:58)
[2023-02-26] MEDS: cloZAPine 100 MG TAB PO SCH (22:01)
[2023-02-26] MEDS: FLUTICASONE PROPIONATE NA SPR 16 GM BTL NAE SCH (22:04)
[2023-02-27] MEDS: ALBUTEROL HFA 8 GM INHALER INH SCH ×8 (03:03→23:01)
--- NOTE | 2023-02-27 07:29 | Hospitalist Progress Note ---
Date of Service February 27, 2023 Assessment & Plan (1) Metabolic encephalopathy: (2) SARS-CoV-2 positive: (3) Sepsis: (4) Paranoid schizophrenia: (5) Complex partial seizure: (6) DMII (diabetes mellitus, type 2): (7) Elevated lactic acid level: (8) Hypertension: Plan Ms. Brittany Oneill is a 62 year old woman with a past medical history of seizures c/b ambulatory and cognitive dysfunction, schizophrenia characterized by auditory hallucinations, DMTII, recent r femoral neck fracture s/p nailing 10/2022, who is admitted due to concerns for encephalopathy thought to be secondary to dehydration/COVID. On admission - Patient following commands like squeezing of hands and wiggling of toes, but did not speak; however, maintained eye contact. [facility] real estate representative at bedside. tachycardia, elevated heart rates, and lactic acidosis Acute Toxic Metabolic encephalopathy -Baseline able to communicate needs/feelings/pleasantries with mild verbal delay, walks with walker, baseline intention tremor (L>R per neuro note) -suspect COVID infection contributing to encephalopathy and lethargy, as well as dehydration -Reorient as able -Treat as follows -Follows w/ Dr. Marshall (neurology) as outpt - seen by Dr. Marshall this AM (02/27/2023)- pt seems at baseline mental status 02/27 - Pt is sitting up in chair today, more awake, answers simple questions appropriately, ambulates to bathroom Sepsis secondary to COVID Infection Lactic Acidosis -RR 24, HR 90s-110s, lactic acidosis +COVID -UA negat. -procal negative, no clear consolidation, +cough on exam; otherwise afebrile -Started Remdesivir, will cont. -No O2 requirement or appreciable distress, hold Decadron -Robitussin and tylenol prn, albuterol prn, flutter valve for clearance -lactate 3.6-> 0.8 -IVF resuscitation, s/p 2L ED -CTX and Azithromycin empirically while infectious work up (blood cultures result) for superimposed infectious process Schizophrenia Chronic, stable -reports of auditory hallucinations at baseline -Continue clozapine 600mg QPM Complex Partial Seizures Chronic, stable -Follows Dr Marshall 01/22/2023, last seizure 2010 -continue Keppra 250mg BID and phenytoin 200 BID -Ordered levetiracetam and phenytoin levels, phenytoin level low, keppra level pending #DMTII Chronic, stable Home regimen: Metformin 1000mg BID, Glimepiride 2mg QAM, Glimepiride 1mg prn for BG >300, Jardiance 25mg daily -hold oral hypoglycemics -Start Lantus 7mg BID, with correction factor and carb consistent diet #GERD Chronic, stable -Continue home famotidine 20mg #Seasonal Allergies Chronic, stable -Continue home Flonase #HLD Chronic, stable -Continue Atorvastatin 40mg #Herpes Dermatitis Chronic, stable -Continue Valacyclovir 500mg BID #Hypertension -Previously on lisinopril, not actively taking it appears CTM DVT lovenox Bowel: home regimen, mirlax and docusate Replace lytes prn Diet DMTII, regular per last speech eval-reflux/aspiration precautions Admission and Anticipated Discharge Date Admission Date: February 25, 2023 Subjective Pt seen in follow up of AMS, + COVID Sitting up in chair in NAD, on RA, much more awake today answers some simple questions appropriately Follows simple commands Seen ambulating w/ RN to the bathroom Denies any headache, shortness of breath, abd. pain, chest pain, or any discomfort. + cough Follows w/ Dr. Marshall from neurology - seen by Dr. Marshall this AM - seems mental status at baseline. Review of Systems Review of Systems: All systems reviewed & are unremarkable except as noted in Subjective Physical Exam Physical Exam: Constitutional:L thin F in NAD Eyes: PERRL, conjunctiva e normal, anicteri c sclerae Respiratory: + rhonchi diffuse, no wheezing Cardiovascular:L rrr Gastrointestinal ( Abdomen): soft NT, + bowel sounds Neurologic: awake and alert, eye contact when talking to patient , follows simple c ommands, moves ext remities, answers simple questions ( response may be de layed) Results & Data Results & Data Vital Signs (Past 12 Hours) Vital Signs Temp Pulse Pulse Resp BP Pulse Ox O2 Del Method 02/27/23 07:20 95 H 16 96 Room Air 02/27/23 04:55 36.4 C L 72 17 106/62 96 Room Air 02/27/23 00:02 78 02/26/23 23:47 36.4 C L 78 21 108/58 L 96 Room Air 02/26/23 22:00 Room Air 02/26/23 22:35 36.7 C 02/26/23 20:30 38.7 C H 83 21 128/70 91 Room Air 02/26/23 20:14 84 16 95 Room Air Laboratory Results 02/27/23 02/27/23 02/27/23 Range/Units 12:16 08:26 06:49 Sodium 139 (136-145) mmol/L Potassium 3.7 (3.5-5.1) mmol/L Chloride 110 H (98-107) mmol/L Carbon Dioxide 23 (21-32) mmol/L Anion Gap 6 (3-11) BUN 20 (6-23) mg/dl Creatinine 0.45 L (0.6-1.2) mg/dl Est Cr Clr Drug Dosing 114.8 ml/min Est GFR ( Amer) 126.2 ml/min Est GFR (Non-Af Amer) 108.9 ml/min BUN/Creatinine Ratio 44.4 H (10-20) Glucose 120 H (70-99(Fasting)) mg/dl POC Glucose 150 H 133 H (70-99) mg/dl Calcium 7.6 L (8.6-10.3) mg/dl Phosphorus 2.2 L (2.5-4.9) mg/dl Magnesium 2.3 (1.7-2.4) mg/dl Total Bilirubin 0.4 (0.2-1.0) mg/dl AST 19 (13-39) U/L ALT 24 (7-52) U/L Alkaline Phosphatase 89 (34-104) U/L Total Protein 5.8 L D (6.0-8.3) gm/dl Albumin 3.4 (3.4-5.0) gm/dl Globulin 2.4 L (2.5-4.0) gm/dl Albumin/Globulin Ratio 1.4 (0.9-2) 02/26/23 02/26/23 Range/Units 20:27 16:12 Sodium (136-145) mmol/L Potassium (3.5-5.1) mmol/L Chloride (98-107) mmol/L Carbon Dioxide (21-32) mmol/L Anion Gap (3-11) BUN (6-23) mg/dl Creatinine (0.6-1.2) mg/dl Est Cr Clr Drug Dosing ml/min Est GFR ( Amer) ml/min Est GFR (Non-Af Amer) ml/min BUN/Creatinine Ratio (10-20) Glucose (70-99(Fasting)) mg/dl POC Glucose 163 H 166 H (70-99) mg/dl Calcium (8.6-10.3) mg/dl Phosphorus (2.5-4.9) mg/dl Magnesium (1.7-2.4) mg/dl Total Bilirubin (0.2-1.0) mg/dl AST (13-39) U/L ALT (7-52) U/L Alkaline Phosphatase (34-104) U/L Total Protein (6.0-8.3) gm/dl Albumin (3.4-5.0) gm/dl Globulin (2.5-4.0) gm/dl Albumin/Globulin Ratio (0.9-2) Medications Administered Current Inpatient Medications Acetaminophen (Acetaminophen 325 Mg Tab) 650 mg PO Q6H PRN PRN Reason: pain, fever Stop: 03/27/23 12:36 Last Admin: 02/26/23 22:06 Dose: 650 mg Albuterol (Albuterol Hfa 8 Gm Inhaler) 2 puffs INH Q4H DELMI Stop: 03/27/23 14:14 Last Admin: 02/27/23 07:20 Dose: 2 puffs Atorvastatin Calcium (Atorvastatin 40 Mg Tab) 40 mg PO HS DELMI Stop: 03/27/23 20:59 Last Admin: 02/26/23 21:58 Dose: 40 mg Azithromycin (Azithromycin 250 Mg Tab) 250 mg PO QAM DELMI Stop: 03/05/23 08:59 Last Admin: 02/26/23 08:01 Dose: 250 mg Calcium/Vitamin D (Calcium 600mg + Vit D 400 Iu Tab) 1 tab PO DAILY DELMI Stop: 03/28/23 08:59 Last Admin: 02/26/23 08:01 Dose: 1 tab Clozapine (Clozapine 100 Mg Tab) 600 mg PO HS DELMI Stop: 03/27/23 20:59 Last Admin: 02/26/23 22:01 Dose: 600 mg Dextrose (Dextrose 50% 50 Ml Syringe) 25 - 50 ml IV UD PRN; Protocol PRN Reason: Hypoglycemia Protocol Stop: 03/27/23 12:47 Docusate Sodium (Docusate Sodium 100 Mg Cap) 100 mg PO BID DELMI Stop: 03/27/23 20:59 Last Admin: 02/26/23 22:52 Dose: 100 mg Enoxaparin Sodium (Enoxaparin Inj 40 Mg/0.4 Ml Syr) 40 mg SQ Q24H DELMI Stop: 03/28/23 15:59 Last Admin: 02/26/23 17:36 Dose: 40 mg Famotidine (Famotidine 20 Mg Tab) 20 mg PO DAILY DELMI Stop: 03/28/23 08:59 Last Admin: 02/26/23 11:32 Dose: 20 mg Fluticasone Propionate (Fluticasone Propionate Na Spr 16 Gm Btl) 2 sprays LUIS MANUEL QPM DELMI Stop: 03/27/23 20:59 Last Admin: 02/26/23 22:04 Dose: 2 sprays Glucagon (Glucagon For Inj 1 Mg Vial) 1 mg SQ UD PRN; Protocol PRN Reason: Hypoglycemia Protocol Stop: 03/27/23 12:47 Glucose (Glucose 10 Tab/Tube) 4 - 8 tab PO UD PRN; Protocol PRN Reason: Hypoglycemia Treatment Stop: 03/27/23 12:47 Glucose (Glucose 40% Gel 15 Gm Tube) 15 - 30 gm PO UD PRN; Protocol PRN Reason: Hypoglycemia Protocol Stop: 03/27/23 12:47 Guaifenesin/Dextromethorphan (Guaifenesin/Dextrom Syrup 200mg/20mg 10ml Udc) 10 ml PO Q6H PRN PRN Reason: Cough Stop: 03/27/23 12:34 Last Admin: 02/25/23 21:42 Dose: 10 ml Remdesivir 100 mg/ Sodium (Chloride) 250 mls @ 250 mls/hr IV Q24H [facility] Stop: 03/01/23 12:59 Last Infusion: 02/26/23 14:10 Dose: Infused Ceftriaxone Sodium 2,000 mg/ (Dextrose) 50 mls @ 100 mls/hr IV Q24H [facility]; Protocol Stop: 02/27/23 13:29 Last Infusion: 02/26/23 14:48 Dose: Infused Insulin Aspart (Insulin Aspart Per Unit Charge) 0 units SC ACHS [facility] Stop: 03/27/23 16:29 Last Admin: 02/26/23 21:50 Dose: Not Given Insulin Glargine (Lantus Per Unit Charge) 7 units SQ BID [facility] Stop: 03/27/23 20:59 Last Admin: 02/26/23 21:50 Dose: 7 units Lactic Acid (Ammonium Lactate 12% Lotion 225 Gm Btl) 15 gm EXT QAM DELMI Stop: 03/27/23 15:59 Last Admin: 02/26/23 09:25 Dose: 15 gm Levetiracetam (Levetiracetam 250 Mg Tab) 250 mg PO BID DELMI Stop: 03/27/23 20:59 Last Admin: 02/26/23 21:59 Dose: 250 mg Miscellaneous (Carbohydrates For Hypoglycemia ) 15 - 30 gm PO UD PRN PRN Reason: Hypoglycemia Protocol Stop: 03/27/23 12:47 Multivitamins (Multivitamin Tab) 1 tab PO QAM DELMI Stop: 03/28/23 08:59 Last Admin: 02/26/23 08:00 Dose: 1 tab Phenytoin Sodium (Phenytoin Sodium Er 100 Mg Cap) 200 mg PO BID DELMI Stop: 03/27/23 20:59 Last Admin: 02/26/23 21:59 Dose: 200 mg Polyethylene Glycol (Polyethylene (Miralax) 17 Gm Pack) 17 gm PO BID DELMI Stop: 03/27/23 20:59 Last Admin: 02/26/23 22:03 Dose: 17 gm Valacyclovir HCl (Valacyclovir Hcl 500 Mg Tablet) 500 mg PO DAILY DELMI Stop: 03/05/23 08:59 Last Admin: 02/26/23 07:59 Dose: 500 mg Vitamin B Complex (Vitamin B Complex Tab) 1 tab PO QAM DELMI Stop: 03/28/23 08:59 Last Admin: 02/26/23 08:01 Dose: 1 tab (3) Sepsis Sepsis acute organ dysfunction status: without acute organ dysfunction Sepsis type: sepsis due to unspecified organism Qualified Code(s): A41.9 - Sepsis, unspecified organism
--- NOTE | 2023-02-27 07:54 | Neurology Consultation ---
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 Overall, these issues have been stable over time and her mood and behavior has been good on Clozaril. Clozaril probably helps her action tremor left greater than right side. The patient was admitted with acute encephalopathy and generalized weakness likely secondary to COVID infection on top of her other neurologic and psychiatric conditions. She is sleepy/fatigued and coughing but her mental status currently is baseline. She can follow commands and answer questions (w ith her typical delayed fashion). She has a history of seizure disorder well controlled on current medications. Her levels were low recently and this was likely more a reflection of probably not taking pills regularly. Admittedly, however, her levetiracetam dose is low. We had attempted to increase her Dilantin level earlier this year at 300 mg twice a day because of low levels but she became toxic on the medication. She is back at 200 mg twice a day and this seems to control her seizures. Except for her current infection, she seems to be neurologically at her baseline. Recommendations: 1. Continue phenytoin 200 mg twice a day. I would consider a trough level at the end of 1 week to recheck. 2. Continue levetiracetam 250 mg twice daily 3. I do not see any new focal neurologic deficits on this patient and do not believe she had a stroke. An MRI of the brain is possible but it is difficult for her to hold still for this procedure. I do not believe that it is necessary. 4. There is no evidence the patient has had seizures and an EEG is not warranted at this time. 5. Increase activity as able. 6. Please contact me if I can be of further assistance on this case otherwise we will see her as an outpatient to follow-up. Consider 2-3 weeks after discharge with PA at the office Overall, I spent a total of 90 minutes with this case including review of records, review of MRI and CT films, direct evaluation of the patient at bedside, report generation, and discussion of the case with RN at bedside, as well as Dr. Huertas including differential diagnosis and treatment options. History of Present Illness Reason for Consultation: Patient is a 62-year-old, who I was asked to see the request of Dr. Huertas, neurologic consultation regarding altered mental status and other issues Requesting Physician: Dr. Huertas Attending Physician: Jamir Huertas MD History of Present Illness I have been following this patient from a neurologic standpoint for at least 20 years. She has a history of mental disability, anxiety, depression, and schizophrenia treated with multiple neuroleptics in the past. She had significant side effects to these neuroleptics including extra pyramidal side effects tremor. She is been off neuroleptics for many years now but has been maintained with good behavior on clozapine 600 mg at bedtime. She is a longstanding history of seizure disorder and has tried multiple medications over the years. She had an allergic reaction to Depakote. Patient was on Dilantin alone but in 2010 had a seizure. Levetiracetam was added and she is been on the combination of levetiracetam (currently 250 mg twice a day) and phenytoin (currently 200 mg twice a day), with no known seizures since 2010. The patient has had periods of confusion intermittently over the years as well as what have been known as staring spells. Her most recent EEG in October of 2022 obtained because she fell showed moderate slowing without focal abnormalit ies or potentially epileptogenic discharges. Patient has known ventriculomegaly out of proportion to any amount of atrophy. This has been stable, however, for many years. She is had multiple CT scans which have been unchanged. In late 2018 she had an episode of left-sided weakness and leaning to the left with some confusion. An MRI of the brain in July of 2019 showed no acute or subacute stroke and there was mild old small-vessel ischemic disease. An MRI of the brain in July of 2022 again showed no acute changes and the mild small- vessel ischemic disease unchanged. Her ventricular diameter has not changed either. Unfortunately, the patient fell and broke her right hip in October of 2022. She was losing weight over the summer due to decreased appetite. I saw her last January 22, 2023 and she had no obvious seizures. Her mental status was about unchanged as well. On current doses of medication, trough phenytoin level was 5 and levetiracetam level 2.5 on 01/28/2023. The patient was admitted February 25 after having been found drooling with a possible right facial droop slumping to the right. She had lethargy and confusion. On February 25 at 8:22 a.m. temperature was 37.4, pulse 114, respiratory rate 18, blood pressure 136/71, O2 saturation 98%. She had a right facial droop on exam. Phenytoin level was less than 3 and Keppra level is pending. CBC showed incre ased neutrophils but the absolute white count was normal. Chem profile was unremarkable except for glucose of 281 and alk-phos of 145. TSH was 0.8. Lactate was elevated at 3.6 and urinalysis was unremarkable. She had positive COVID but the rest of her [employer] was unremarkable. She was put on remdesivir, azithromycin, and ceftriaxone Laboratory studies revealed increased neutrophils on February 26, and Chem profile revealed a low calcium and phosphorus on February 27. Glucose was 120. Renal function was normal. The patient is lying in bed coughing. She has no complaint of pain or headache. Blood pressure is 106/62. Blood cultures have been negative so far. Allergies Allergy/AdvReac Type Severity Reaction Status Date / Time divalproex sodium Allergy Unknown Unknown Verified 02/11/23 12:10 [From Depakote] salicylates Allergy Unknown Unknown Verified 02/11/23 12:10 valproic acid Allergy Unknown Unknown Verified 02/11/23 12:10 aspirin AdvReac Severe STOMACH Verified 02/11/23 12:10 ULCER BLEEDING Home Medications Medication Instructions Recorded Confirmed Type atorvastatin 40 mg tablet 40 mg PO HS 07/17/18 02/25/23 History glimepiride 2 mg tablet 2 mg PO QAM 07/17/18 02/25/23 History metformin 500 mg tablet,extended 1,000 mg PO BID 07/17/18 02/25/23 History release 24 hr multivit-iron 18 mg-folic acid 400 1 tab PO QAM 07/17/18 02/25/23 History mcg-calcium 500 mg-minerals tablet (Women's One Daily) vitamin B complex 1 tab PO QAM 08/25/18 02/25/23 History fluticasone propionate 50 2 sprays intranasal QPM 02/15/19 02/25/23 History mcg/actuation nasal spray,suspension ammonium lactate 12 % topical cream 1 applic topical QAM 05/21/19 02/25/23 History docusate sodium 100 mg capsule 100 mg PO BID 05/21/19 02/25/23 History (Colace) triamcinolone acetonide 0.1 % 1 applic topical BID PRN Rash 07/10/21 02/25/23 History topical cream famotidine 20 mg tablet 20 mg PO DAILY 08/25/21 02/25/23 History clozapine 200 mg tablet 600 mg PO HS 10/31/21 02/25/23 History valacyclovir 500 mg tablet 500 mg PO DAILY 02/18/22 02/25/23 History food supplemt, lactose-reduced 1 ea PO QAM 10/14/22 02/25/23 History glimepiride 1 mg tablet 1 mg PO DIRECTED PRN BSG >300. 10/14/22 02/25/23 History levetiracetam 250 mg tablet 250 mg PO BID 90 days #180 tabs 10/15/22 02/25/23 Rx (Keppra) empagliflozin 10 mg tablet 25 mg PO DAILY 10/19/22 02/25/23 History (Jardiance) polyethylene glycol 3350 17 gram 17 g PO BID 10/19/22 02/25/23 History oral powder packet (Miralax) acetaminophen 500 mg tablet 1,000 mg PO Q8H #30 tabs 11/15/22 02/25/23 Rx (Tylenol Extra Strength) phenytoin sodium extended 100 mg 200 mg PO BID 90 days #360 caps 12/14/22 02/25/23 Rx capsule (Dilantin Extended) Calcium Citrate + D 200 - 315 mcg PO DAILY 02/11/23 02/25/23 History Patient History Medical History Complex partial seizure Depression with anxiety DMII (diabetes mellitus, type 2) Heart murmur HSV (herpes simplex virus) anogenital infection Hypertension Onychomycosis Schizophrenia Surgical History History of colonoscopy Family History Mother Diabetes Other Seizures Social History Smoking Status: Never smoker Hx Alcohol Use: No Hx Substance Use: No Preferred Language: Welsh Communication Ability: Impaired Communication Ability Comment: Intellectual Disability Visual Impairment: No Limitations Hearing Ability: Normal Electro Plater Required: No Beliefs That Will Affect Care: None marital status: Single Current Living Situation: Personal Care Facility current occupational status: disabled Other Information That Helps Us Care for You: No Feels Safe at Home: Yes Safety Concerns: Feels Safe At This Time Assistive Devices: Walker Review of Systems Review of Systems: Unobtainable due to mental health condition and Unobtainable due to cognitive status She denies pain or headache. Exam (Neuro) Physical Exam: The patient is right-handed. The patient is sleepy but aroused easily with voice. She would make eye contact and would answer questions briefly and follow one-step commands well. When left alone she shut her eyes and went back to sleep. Speech consists of single words of a delayed fashion (which is her baseline typically), but otherwise without any aphasia or dysarthria. She is pleasant and cooperative and will smile. Pupils are 3 mm bilaterally and reactive to light. Extraocular eye muscles are intact without nystagmus. Visual acuity and visual rios seem normal grossly to confrontation. There are no deficits to sensation in the face in all 3 distributions of the fifth cranial nerve bilaterally. Corneal reflexes are positive bilaterally. Facial strength and symmetry was normal bilaterally. Hearing seems normal bilaterally. Palate moves well without asymmetry. There is normal sternocleidomastoid and trapezius (shoulder shrug) strength bilaterally. Tongue is midline with good strength bilaterally. Neck has a full range of motion without discomfort. There are no cervical bruits bilaterally. There are no cranial or ocular bruits. Heart is without murmur. There is a regular rhythm and rate. Cervical, thoracic, and lumbar spine are nontender to palpation. Gait was not tested in sitting up in bed is poor this morning With outstretched arms there is no drift, although she is not overly cooperative for this maneuver. There are no resting tremors. He is mild left greater than right action tremor. There is no ataxia with finger to nose testing. There is decreased facility in the hands. No other abnormal involuntary movements are noted. Motor strength is 5/5 diffusely in the arms bilaterally including deltoids, biceps, triceps, brachioradialis, wrist flexors and extensors, eggs inspector, and intrinsic hand muscles. Motor strength is 5/5 diffusely in the legs bilaterally including hip flexors, quadriceps, hamstrings, gastrocnemius, tibialis anterior, tibialis posterior, and Peroneii muscles. Toe extensors are normal and there is good bulk in the extensor digitorum brevis muscles bilaterally. The limbs have good tone without rigidity or spasticity. There is no atrophy noted in the muscles. Muscle bulk is normal, there is no tenderness to palpation, no myotonia to percussion, and no fasciculations seen. Sensory examination is intact to touch and pin throughout all 4 limbs diffusely. Reflexes are 2/4 in the biceps, triceps, brachioradialis, quadriceps, and Achilles tendons bilaterally. There is no clonus bilaterally. Toes are downgoing with plantar stimulation bilaterally. Peripheral pulses are present and of normal quality distally in all 4 limbs. There is no peripheral edema noted in the limbs. Results & Data Vital Signs (Past 12 Hours) Vital Signs Temp Pulse Pulse Resp BP Pulse Ox O2 Del Method 02/27/23 07:30 81 02/27/23 07:20 95 H 16 96 Room Air 02/27/23 04:55 36.4 C L 72 17 106/62 96 Room Air 02/27/23 00:02 78 02/26/23 23:47 36.4 C L 78 21 108/58 L 96 Room Air 02/26/23 22:00 Room Air 02/26/23 22:35 36.7 C 02/26/23 20:30 38.7 C H 83 21 128/70 91 Room Air 02/26/23 20:14 84 16 95 Room Air PG Care Time/CCT Total # of Minutes Spent Total Time Spent with Patient: Total time spent is greater than 50% in coordination of care (as documented) at patient's floor/unit and/or counseling patient: Coding Level of Care Code 63781 INT INP/OBS CARE 3/75MIN Diagnoses Acute encephalopathy G93.40 Generalized weakness R53.1 COVID-19 U07.1 Complex partial seizure G40.209 Intellectual delay F81.9 Schizophrenia F20.9 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
[2023-02-27 08:01] LABS: Albumin Globulin Ratio 1.4 (0.9-2); Albumin Level 3.4 gm/dl (3.4-5.0); BUN Creatinine Ratio 44.4 (10-20); Bilirubin,Total 0.4 mg/dl (0.2-1.0); Calcium 7.6 mg/dl (8.6-10.3); Creatinine Clr Calc Pharmacy 114.8 ml/min; Est GFR (African American) 126.2 ml/min; Est GFR (Non-African American) 108.9 ml/min; Globulin 2.4 gm/dl (2.5-4.0); Magnesium 2.3 mg/dl (1.7-2.4); Phosphorus 2.2 mg/dl (2.5-4.9); Potassium 3.7 mmol/L (3.5-5.1); Total Protein 5.8 gm/dl (6.0-8.3)
[2023-02-27] MEDS: INSULIN ASPART PER UNIT CHARGE SC SCH ×4 (09:21→20:59)
[2023-02-27] MEDS: POLYETHYLENE (MIRALAX) 17 GM PACK PO SCH ×2 (09:31→21:12)
[2023-02-27] MEDS: AMMONIUM LACTATE 12% LOTION 225 GM BTL EXT SCH (09:31)
[2023-02-27] MEDS: valACYclovir HCL 500 MG TABLET PO SCH (09:32)
[2023-02-27] MEDS: AZITHROMYCIN 250 MG TAB PO SCH (09:32)
[2023-02-27] MEDS: VITAMIN B COMPLEX TAB PO SCH (09:32)
[2023-02-27] MEDS: FAMOTIDINE 20 MG TAB PO SCH (09:33)
[2023-02-27] MEDS: CALCIUM 600MG + VIT D 400 IU TAB PO SCH (09:33)
[2023-02-27] MEDS: levETIRAcetam 250 MG TAB PO SCH ×2 (09:34→21:13)
[2023-02-27] MEDS: PHENYTOIN SODIUM ER 100 MG CAP PO SCH ×2 (09:34→21:14)
[2023-02-27] MEDS: MULTIVITAMIN TAB PO SCH (09:35)
[2023-02-27] MEDS: guaiFENesin/DEXTROM SYRUP 200MG/20MG 10ML UDC PO PRN ×2 (09:37→21:25)
[2023-02-27] MEDS: DOCUSATE SODIUM 100 MG CAP PO SCH ×2 (09:42→21:15)
[2023-02-27] MEDS: LANTUS PER UNIT CHARGE SQ SCH ×2 (09:46→22:10)
[2023-02-27] MEDS: REMDESIVIR 100 MG in SODIUM CHLORIDE 0.9% 230 ML IV SCH (13:11)
[2023-02-27] MEDS: ENOXAPARIN INJ 40 MG/0.4 ML SYR SQ SCH (17:23)
[2023-02-27] MEDS: FLUTICASONE PROPIONATE NA SPR 16 GM BTL NAE SCH (21:12)
[2023-02-27] MEDS: cloZAPine 100 MG TAB PO SCH (21:13)
[2023-02-27] MEDS: ATORVASTATIN 40 MG TAB PO SCH (21:14)
[2023-02-28] MEDS: ALBUTEROL HFA 8 GM INHALER INH SCH ×4 (07:44→19:58)
[2023-02-28 08:14] LABS: Albumin Globulin Ratio 1.4 (0.9-2); Albumin Level 3.5 gm/dl (3.4-5.0); BUN Creatinine Ratio 45.7 (10-20); Bilirubin,Total 0.4 mg/dl (0.2-1.0); Calcium 7.6 mg/dl (8.6-10.3); Creatinine Clr Calc Pharmacy 147.6 ml/min; Est GFR (African American) 137.1 ml/min; Est GFR (Non-African American) 118.3 ml/min; Globulin 2.5 gm/dl (2.5-4.0); Magnesium 2.1 mg/dl (1.7-2.4); Phosphorus 2.1 mg/dl (2.5-4.9); Potassium 4.1 mmol/L (3.5-5.1)
--- NOTE | 2023-02-28 08:41 | Hospitalist Progress Note ---
Date of Service February 28, 2023 Assessment & Plan (1) Metabolic encephalopathy: (2) SARS-CoV-2 positive: (3) Sepsis: (4) Paranoid schizophrenia: (5) Complex partial seizure: (6) DMII (diabetes mellitus, type 2): (7) Elevated lactic acid level: (8) Hypertension: Plan Ms. Brittany Oneill is a 62 year old woman with a past medical history of seizures c/b ambulatory and cognitive dysfunction, schizophrenia characterized by auditory hallucinations, DMTII, recent r femoral neck fracture s/p nailing 10/2022, who is admitted due to concerns for encephalopathy thought to be secondary to dehydration/COVID. On admission - Patient following commands like squeezing of hands and wiggling of toes, but did not speak; however, maintained eye contact. 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 tachycardia, elevated heart rates, and lactic acidosis Acute Toxic Metabolic encephalopathy -Baseline able to communicate needs/feelings/pleasantries with mild verbal delay, walks with walker, baseline intention tremor (L>R per neuro note) -suspect COVID infection contributing to encephalopathy and lethargy, as well as dehydration -Reorient as able -Treat as follows -Follows w/ Dr. Marshall (neurology) as outpt - seen by Dr. Marshall on (02/27/2023)- pt seems at baseline mental status 02/27 - Pt is sitting up in chair today, more awake, answers simple questions appropriately, ambulates to bathroom Sepsis secondary to COVID Infection Lactic Acidosis -RR 24, HR 90s-110s, lactic acidosis +COVID -UA negat. -procal negative, no clear consolidation, +cough on exam; otherwise afebrile -Started Remdesivir, will cont. -No O2 requirement or appreciable distress, hold Decadron -Robitussin and tylenol prn, albuterol prn, flutter valve for clearance -lactate 3.6-> 0.8 -IVF resuscitation, s/p 2L ED -CTX and Azithromycin empirically while infectious work up (blood cultures result) for superimposed infectious process Schizophrenia Chronic, stable -reports of auditory hallucinations at baseline -Continue clozapine 600mg QPM Complex Partial Seizures Chronic, stable -Follows Dr Marshall 01/22/2023, last seizure 2010 -continue Keppra 250mg BID and phenytoin 200 BID -Ordered levetiracetam and phenytoin levels, phenytoin level low, keppra level pending #DMTII Chronic, stable Home regimen: Metformin 1000mg BID, Glimepiride 2mg QAM, Glimepiride 1mg prn for BG >300, Jardiance 25mg daily -hold oral hypoglycemics -Start Lantus 7mg BID, with correction factor and carb consistent diet #GERD Chronic, stable -Continue home famotidine 20mg #Seasonal Allergies Chronic, stable -Continue home Flonase #HLD Chronic, stable -Continue Atorvastatin 40mg #Herpes Dermatitis Chronic, stable -Continue Valacyclovir 500mg BID #Hypertension -Previously on lisinopril, not actively taking it appears CTM DVT lovenox Bowel: home regimen, mirlax and docusate Replace lytes prn Diet DMII, regular per last speech eval-reflux/aspiration precautions Admission and Anticipated Discharge Date Admission Date: February 25, 2023 Subjective Pt seen in follow up of AMS, + COVID Laying in bed, on RA, in NAD answers some simple questions appropriately, often w/ delay Follows simple commands Seen ambulating w/ RN to the bathroom yesterday Denies any headache, shortness of breath, abd. pain, chest pain, or any discomfort. + cough Follows w/ Dr. Marshall from neurology - seen by Dr. Marshall yesterday - seems mental status at baseline. Review of Systems Review of Systems: All systems reviewed & are unremarkable except as noted in Subjective and Unobtainable due to cognitive status Physical Exam Physical Exam: Constitutional:L thin F in NAD Eyes: PERRL, conjunctiva e normal, anicteri c sclerae Respiratory: + rhonchi diffuse, no wheezing Cardiovascular:L rrr Gastrointestinal ( Abdomen): soft NT, + bowel sounds Neurologic: awake and alert, eye contact when talking to patient , follows simple c ommands, moves ext remities, answers simple questions ( response may be de layed) Results & Data Results & Data Vital Signs (Past 12 Hours) Vital Signs Temp Pulse Pulse Resp BP Pulse Ox O2 Del Method 02/28/23 08:35 95 H 02/28/23 08:30 37.0 C 90 20 116/72 95 Room Air 02/28/23 07:46 77 18 95 Room Air 02/28/23 04:13 36.8 C 96 H 20 115/72 96 Room Air 02/27/23 21:58 75 10/14/23 23:49 36.7 C 83 20 111/71 94 Room Air 02/27/23 21:15 Room Air 02/27/23 22:16 78 18 95 Room Air Laboratory Results 02/28/23 02/28/23 02/27/23 Range/Units 08:09 07:15 20:17 Sodium 138 (136-145) mmol/L Potassium 4.1 (3.5-5.1) mmol/L Chloride 108 H (98-107) mmol/L Carbon Dioxide 24 (21-32) mmol/L Anion Gap 6 (3-11) BUN 16 (6-23) mg/dl Creatinine 0.35 L (0.6-1.2) mg/dl Est Cr Clr Drug Dosing 147.6 ml/min Est GFR ( Amer) 137.1 ml/min Est GFR (Non-Af Amer) 118.3 ml/min BUN/Creatinine Ratio 45.7 H (10-20) Glucose 114 H (70-99(Fasting)) mg/dl POC Glucose 121 H 127 H (70-99) mg/dl Calcium 7.6 L (8.6-10.3) mg/dl Phosphorus 2.1 L (2.5-4.9) mg/dl Magnesium 2.1 (1.7-2.4) mg/dl Total Bilirubin 0.4 (0.2-1.0) mg/dl AST 33 (13-39) U/L ALT 28 (7-52) U/L Alkaline Phosphatase 89 (34-104) U/L Total Protein 6.0 (6.0-8.3) gm/dl Albumin 3.5 (3.4-5.0) gm/dl Globulin 2.5 (2.5-4.0) gm/dl Albumin/Globulin Ratio 1.4 (0.9-2) 02/27/23 02/27/23 Range/Units 16:42 12:16 Sodium (136-145) mmol/L Potassium (3.5-5.1) mmol/L Chloride (98-107) mmol/L Carbon Dioxide (21-32) mmol/L Anion Gap (3-11) BUN (6-23) mg/dl Creatinine (0.6-1.2) mg/dl Est Cr Clr Drug Dosing ml/min Est GFR ( Amer) ml/min Est GFR (Non-Af Amer) ml/min BUN/Creatinine Ratio (10-20) Glucose (70-99(Fasting)) mg/dl POC Glucose 159 H 150 H (70-99) mg/dl Calcium (8.6-10.3) mg/dl Phosphorus (2.5-4.9) mg/dl Magnesium (1.7-2.4) mg/dl Total Bilirubin (0.2-1.0) mg/dl AST (13-39) U/L ALT (7-52) U/L Alkaline Phosphatase (34-104) U/L Total Protein (6.0-8.3) gm/dl Albumin (3.4-5.0) gm/dl Globulin (2.5-4.0) gm/dl Albumin/Globulin Ratio (0.9-2) Medications Administered Current Inpatient Medications Acetaminophen (Acetaminophen 325 Mg Tab) 650 mg PO Q6H PRN PRN Reason: pain, fever Stop: 03/27/23 12:36 Last Admin: 02/26/23 22:06 Dose: 650 mg Albuterol (Albuterol Hfa 8 Gm Inhaler) 2 puffs INH QIDR DELMI Stop: 03/29/23 22:59 Last Admin: 02/28/23 07:44 Dose: 2 puffs Atorvastatin Calcium (Atorvastatin 40 Mg Tab) 40 mg PO HS DELMI Stop: 03/27/23 20:59 Last Admin: 02/27/23 21:14 Dose: 40 mg Azithromycin (Azithromycin 250 Mg Tab) 250 mg PO QAM DELMI Stop: 03/05/23 08:59 Last Admin: 02/27/23 09:32 Dose: 250 mg Calcium/Vitamin D (Calcium 600mg + Vit D 400 Iu Tab) 1 tab PO DAILY DELMI Stop: 03/28/23 08:59 Last Admin: 02/27/23 09:33 Dose: 1 tab Clozapine (Clozapine 100 Mg Tab) 600 mg PO HS DELMI Stop: 03/27/23 20:59 Last Admin: 02/27/23 21:13 Dose: 600 mg Dextrose (Dextrose 50% 50 Ml Syringe) 25 - 50 ml IV UD PRN; Protocol PRN Reason: Hypoglycemia Protocol Stop: 03/27/23 12:47 Docusate Sodium (Docusate Sodium 100 Mg Cap) 100 mg PO BID DELMI Stop: 03/27/23 20:59 Last Admin: 02/27/23 21:15 Dose: 100 mg Enoxaparin Sodium (Enoxaparin Inj 40 Mg/0.4 Ml Syr) 40 mg SQ Q24H DELMI Stop: 03/28/23 15:59 Last Admin: 02/27/23 17:23 Dose: 40 mg Famotidine (Famotidine 20 Mg Tab) 20 mg PO DAILY DELMI Stop: 03/28/23 08:59 Last Admin: 02/27/23 09:33 Dose: 20 mg Fluticasone Propionate (Fluticasone Propionate Na Spr 16 Gm Btl) 2 sprays LUIS MANUEL QPM DELMI Stop: 03/27/23 20:59 Last Admin: 02/27/23 21:12 Dose: 2 sprays Glucagon (Glucagon For Inj 1 Mg Vial) 1 mg SQ UD PRN; Protocol PRN Reason: Hypoglycemia Protocol Stop: 03/27/23 12:47 Glucose (Glucose 10 Tab/Tube) 4 - 8 tab PO UD PRN; Protocol PRN Reason: Hypoglycemia Treatment Stop: 03/27/23 12:47 Glucose (Glucose 40% Gel 15 Gm Tube) 15 - 30 gm PO UD PRN; Protocol PRN Reason: Hypoglycemia Protocol Stop: 03/27/23 12:47 Guaifenesin/Dextromethorphan (Guaifenesin/Dextrom Syrup 200mg/20mg 10ml Udc) 10 ml PO Q6H PRN PRN Reason: Cough Stop: 03/27/23 12:34 Last Admin: 02/27/23 21:25 Dose: 10 ml Remdesivir 100 mg/ Sodium (Chloride) 250 mls @ 250 mls/hr IV Q24H DELMI Stop: 03/01/23 12:59 Last Infusion: 02/27/23 14:17 Dose: Infused Insulin Aspart (Insulin Aspart Per Unit Charge) 0 units SC ACHS DELMI Stop: 03/27/23 16:29 Last Admin: 02/27/23 20:59 Dose: Not Given Insulin Glargine (Lantus Per Unit Charge) 7 units SQ BID DELMI Stop: 03/27/23 20:59 Last Admin: 02/27/23 22:10 Dose: 7 units Lactic Acid (Ammonium Lactate 12% Lotion 225 Gm Btl) 15 gm EXT QAM DELMI Stop: 03/27/23 15:59 Last Admin: 02/27/23 09:31 Dose: 15 gm Levetiracetam (Levetiracetam 250 Mg Tab) 250 mg PO BID DELMI Stop: 03/27/23 20:59 Last Admin: 02/27/23 21:13 Dose: 250 mg Miscellaneous (Carbohydrates For Hypoglycemia ) 15 - 30 gm PO UD PRN PRN Reason: Hypoglycemia Protocol Stop: 03/27/23 12:47 Multivitamins (Multivitamin Tab) 1 tab PO QAM DELMI Stop: 03/28/23 08:59 Last Admin: 02/27/23 09:35 Dose: 1 tab Phenytoin Sodium (Phenytoin Sodium Er 100 Mg Cap) 200 mg PO BID DELMI Stop: 03/27/23 20:59 Last Admin: 02/27/23 21:14 Dose: 200 mg Polyethylene Glycol (Polyethylene (Miralax) 17 Gm Pack) 17 gm PO BID DELMI Stop: 03/27/23 20:59 Last Admin: 02/27/23 21:12 Dose: 17 gm Valacyclovir HCl (Valacyclovir Hcl 500 Mg Tablet) 500 mg PO DAILY DELMI Stop: 03/05/23 08:59 Last Admin: 02/27/23 09:32 Dose: 500 mg Vitamin B Complex (Vitamin B Complex Tab) 1 tab PO QAM DELMI Stop: 03/28/23 08:59 Last Admin: 02/27/23 09:32 Dose: 1 tab (3) Sepsis Sepsis acute organ dysfunction status: without acute organ dysfunction Sepsis type: sepsis due to unspecified organism Qualified Code(s): A41.9 - Sepsis, unspecified organism
[2023-02-28] MEDS: LANTUS PER UNIT CHARGE SQ SCH ×2 (09:17→22:01)
[2023-02-28] MEDS: INSULIN ASPART PER UNIT CHARGE SC SCH ×4 (09:17→22:02)
[2023-02-28] MEDS: AMMONIUM LACTATE 12% LOTION 225 GM BTL EXT SCH (09:21)
[2023-02-28] MEDS: AZITHROMYCIN 250 MG TAB PO SCH (09:22)
[2023-02-28] MEDS: MULTIVITAMIN TAB PO SCH (09:22)
[2023-02-28] MEDS: VITAMIN B COMPLEX TAB PO SCH (09:22)
[2023-02-28] MEDS: PHENYTOIN SODIUM ER 100 MG CAP PO SCH ×2 (09:22→22:00)
[2023-02-28] MEDS: FAMOTIDINE 20 MG TAB PO SCH (09:23)
[2023-02-28] MEDS: CALCIUM 600MG + VIT D 400 IU TAB PO SCH (09:23)
[2023-02-28] MEDS: levETIRAcetam 250 MG TAB PO SCH ×2 (09:23→22:01)
[2023-02-28] MEDS: valACYclovir HCL 500 MG TABLET PO SCH (09:24)
[2023-02-28] MEDS: DOCUSATE SODIUM 100 MG CAP PO SCH ×2 (09:27→22:23)
[2023-02-28] MEDS: POLYETHYLENE (MIRALAX) 17 GM PACK PO SCH ×2 (09:30→22:23)
[2023-02-28] MEDS: ACETAMINOPHEN 325 MG TAB PO PRN (11:26)
[2023-02-28] MEDS: REMDESIVIR 100 MG in SODIUM CHLORIDE 0.9% 230 ML IV SCH (11:46)
[2023-02-28] MEDS: ENOXAPARIN INJ 40 MG/0.4 ML SYR SQ SCH (17:55)
[2023-02-28] MEDS: ATORVASTATIN 40 MG TAB PO SCH (21:59)
[2023-02-28] MEDS: cloZAPine 100 MG TAB PO SCH (22:00)
[2023-02-28] MEDS: FLUTICASONE PROPIONATE NA SPR 16 GM BTL NAE SCH (22:03)
[2023-03-01] MEDS: guaiFENesin/DEXTROM SYRUP 200MG/20MG 10ML UDC PO PRN ×2 (05:39→20:44)
[2023-03-01] MEDS: ALBUTEROL HFA 8 GM INHALER INH SCH ×4 (07:49→19:55)
[2023-03-01] MEDS: LANTUS PER UNIT CHARGE SQ SCH ×2 (08:16→20:38)
[2023-03-01] MEDS: INSULIN ASPART PER UNIT CHARGE SC SCH ×4 (08:16→20:39)
[2023-03-01 08:25] LABS: Albumin Globulin Ratio 1.3 (0.9-2); Albumin Level 3.4 gm/dl (3.4-5.0); Bilirubin,Total 0.5 mg/dl (0.2-1.0); Creatinine Clr Calc Pharmacy 129.4 ml/min; Est GFR (African American) 131.2 ml/min; Est GFR (Non-African American) 113.2 ml/min; Globulin 2.6 gm/dl (2.5-4.0); Magnesium 2.2 mg/dl (1.7-2.4); Phosphorus 2.8 mg/dl (2.5-4.9); Potassium 4.1 mmol/L (3.5-5.1)
[2023-03-01] MEDS: POLYETHYLENE (MIRALAX) 17 GM PACK PO SCH ×2 (08:32→20:39)
[2023-03-01] MEDS: CALCIUM 600MG + VIT D 400 IU TAB PO SCH (08:33)
[2023-03-01] MEDS: levETIRAcetam 250 MG TAB PO SCH ×2 (08:33→20:43)
[2023-03-01] MEDS: AZITHROMYCIN 250 MG TAB PO SCH (08:33)
[2023-03-01] MEDS: FAMOTIDINE 20 MG TAB PO SCH (08:33)
[2023-03-01] MEDS: PHENYTOIN SODIUM ER 100 MG CAP PO SCH ×2 (08:34→20:43)
[2023-03-01] MEDS: valACYclovir HCL 500 MG TABLET PO SCH (08:34)
[2023-03-01] MEDS: MULTIVITAMIN TAB PO SCH (08:34)
[2023-03-01] MEDS: VITAMIN B COMPLEX TAB PO SCH (08:34)
[2023-03-01] MEDS: AMMONIUM LACTATE 12% LOTION 225 GM BTL EXT SCH (08:35)
[2023-03-01] MEDS: DOCUSATE SODIUM 100 MG CAP PO SCH ×2 (08:37→20:40)
--- NOTE | 2023-03-01 08:37 | Hospitalist Progress Note ---
Date of Service March 01, 2023 Assessment & Plan (1) Metabolic encephalopathy: (2) SARS-CoV-2 positive: (3) Sepsis: (4) Paranoid schizophrenia: (5) Complex partial seizure: (6) DMII (diabetes mellitus, type 2): (7) Elevated lactic acid level: (8) Hypertension: Plan Ms. Brittany Oneill is a 62 year old woman with a past medical history of seizures c/b ambulatory and cognitive dysfunction, schizophrenia characterized by auditory hallucinations, DMTII, recent r femoral neck fracture s/p nailing 10/2022, who is admitted due to concerns for encephalopathy thought to be secondary to dehydration/COVID. On admission - Patient following commands like squeezing of hands and wiggling of toes, but did not speak; however, maintained eye contact. 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 tachycardia, elevated heart rates, and lactic acidosis Acute Toxic Metabolic encephalopathy -Baseline able to communicate needs/feelings/pleasantries with mild verbal delay, walks with walker, baseline intention tremor (L>R per neuro note) -suspect COVID infection contributing to encephalopathy and lethargy, as well as dehydration -Reorient as able -Treat as follows -Follows w/ Dr. Marshall (neurology) as outpt - seen by Dr. Marshall on (02/27/2023)- pt seems at baseline mental status 02/27 - Pt is sitting up in chair today, more awake, answers simple questions appropriately, ambulates to bathroom 02/28 - more drowsy, laying in bed, per RN did not want to get up from bed 03/01 - sitting in chair, appears more awake and alert and overall improving. Continues to have significant cough. Flutter valve encouraged. Sepsis secondary to COVID Infection Lactic Acidosis -RR 24, HR 90s-110s, lactic acidosis +COVID -UA negat. -procal negative, no clear consolidation, +cough on exam; otherwise afebrile -Started Remdesivir, will cont. -No O2 requirement or appreciable distress, hold Decadron -Robitussin and tylenol prn, albuterol prn, flutter valve for clearance -lactate 3.6-> 0.8 -IVF resuscitation, s/p 2L ED -CTX and Azithromycin empirically while infectious work up (blood cultures result) for superimposed infectious process Schizophrenia Chronic, stable -reports of auditory hallucinations at baseline -Continue clozapine 600mg QPM Complex Partial Seizures Chronic, stable -Follows Dr Marshall 01/22/2023, last seizure 2010 -continue Keppra 250mg BID and phenytoin 200 BID -Ordered levetiracetam and phenytoin levels, phenytoin level low, keppra level pending #DMTII Chronic, stable Home regimen: Metformin 1000mg BID, Glimepiride 2mg QAM, Glimepiride 1mg prn for BG >300, Jardiance 25mg daily -hold oral hypoglycemics -Start Lantus 7mg BID, with correction factor and carb consistent diet #GERD Chronic, stable -Continue home famotidine 20mg #Seasonal Allergies Chronic, stable -Continue home Flonase #HLD Chronic, stable -Continue Atorvastatin 40mg #Herpes Dermatitis Chronic, stable -Continue Valacyclovir 500mg BID #Hypertension -Previously on lisinopril, not actively taking it appears CTM DVT lovenox Bowel: home regimen, mirlax and docusate Replace lytes prn Diet DMII, regular per last speech eval-reflux/aspiration precautions Admission and Anticipated Discharge Date Admission Date: February 25, 2023 Subjective Pt seen in follow up of AMS, + COVID Sitting in chair, on RA, in NAD answers some simple questions appropriately, often w/ delay Follows simple commands Denies any headache, shortness of breath, abd. pain, chest pain, or any discomfort. + persistent cough Follows w/ Dr. Marshall from neurology - seen by Dr. Marshall yesterday - seems mental status at baseline. Today pt seems more awake and alert. yesterday did not want to get up from bed. Seems to be improving overall. Continues w/ significant cough. Review of Systems Review of Systems: All systems reviewed & are unremarkable except as noted in Subjective Physical Exam Physical Exam: Constitutional:L thin F in NAD Eyes: PERRL, conjunctiva e normal, anicteri c sclerae Respiratory: + rhonchi diffuse, no wheezing Cardiovascular:L rrr Gastrointestinal ( Abdomen): soft NT, + bowel sounds Neurologic: awake and alert, eye contact when talking to patient , follows simple c ommands, moves ext remities, answers simple questions ( response may be de layed) Results & Data Results & Data Vital Signs (Past 12 Hours) Vital Signs Temp Pulse Pulse Resp BP Pulse Ox O2 Del Method 03/01/23 07:53 36.3 C L 87 20 117/74 92 Room Air 03/01/23 07:50 18 93 Room Air 03/01/23 03:52 36.5 C 78 20 102/65 92 Room Air 02/28/23 21:56 73 02/28/23 22:30 Room Air 02/28/23 23:16 36.9 C 78 16 107/67 94 Room Air Laboratory Results 03/01/23 03/01/23 02/28/23 Range/Units 07:42 07:36 21:35 Sodium 139 (136-145) mmol/L Potassium 4.1 (3.5-5.1) mmol/L Chloride 108 H (98-107) mmol/L Carbon Dioxide 25 (21-32) mmol/L Anion Gap 6 (3-11) BUN 16 (6-23) mg/dl Creatinine 0.40 L (0.6-1.2) mg/dl Est Cr Clr Drug Dosing 129.4 ml/min Est GFR ( Amer) 131.2 ml/min Est GFR (Non-Af Amer) 113.2 ml/min BUN/Creatinine Ratio 40.0 H (10-20) Glucose 106 H (70-99(Fasting)) mg/dl POC Glucose 99 135 H (70-99) mg/dl Calcium 8.0 L (8.6-10.3) mg/dl Phosphorus 2.8 (2.5-4.9) mg/dl Magnesium 2.2 (1.7-2.4) mg/dl Total Bilirubin 0.5 (0.2-1.0) mg/dl AST 25 (13-39) U/L ALT 29 (7-52) U/L Alkaline Phosphatase 85 (34-104) U/L Total Protein 6.0 (6.0-8.3) gm/dl Albumin 3.4 (3.4-5.0) gm/dl Globulin 2.6 (2.5-4.0) gm/dl Albumin/Globulin Ratio 1.3 (0.9-2) Levetiracetam (6.0-46.0) mcg/mL 02/28/23 02/28/23 02/28/23 Range/Units 16:48 15:59 11:32 Sodium (136-145) mmol/L Potassium (3.5-5.1) mmol/L Chloride (98-107) mmol/L Carbon Dioxide (21-32) mmol/L Anion Gap (3-11) BUN (6-23) mg/dl Creatinine (0.6-1.2) mg/dl Est Cr Clr Drug Dosing ml/min Est GFR ( Amer) ml/min Est GFR (Non-Af Amer) ml/min BUN/Creatinine Ratio (10-20) Glucose (70-99(Fasting)) mg/dl POC Glucose 97 114 H 260 H (70-99) mg/dl Calcium (8.6-10.3) mg/dl Phosphorus (2.5-4.9) mg/dl Magnesium (1.7-2.4) mg/dl Total Bilirubin (0.2-1.0) mg/dl AST (13-39) U/L ALT (7-52) U/L Alkaline Phosphatase (34-104) U/L Total Protein (6.0-8.3) gm/dl Albumin (3.4-5.0) gm/dl Globulin (2.5-4.0) gm/dl Albumin/Globulin Ratio (0.9-2) Levetiracetam (6.0-46.0) mcg/mL 02/25/23 Range/Units 13:55 Sodium (136-145) mmol/L Potassium (3.5-5.1) mmol/L Chloride (98-107) mmol/L Carbon Dioxide (21-32) mmol/L Anion Gap (3-11) BUN (6-23) mg/dl Creatinine (0.6-1.2) mg/dl Est Cr Clr Drug Dosing ml/min Est GFR ( Amer) ml/min Est GFR (Non-Af Amer) ml/min BUN/Creatinine Ratio (10-20) Glucose (70-99(Fasting)) mg/dl POC Glucose (70-99) mg/dl Calcium (8.6-10.3) mg/dl Phosphorus (2.5-4.9) mg/dl Magnesium (1.7-2.4) mg/dl Total Bilirubin (0.2-1.0) mg/dl AST (13-39) U/L ALT (7-52) U/L Alkaline Phosphatase (34-104) U/L Total Protein (6.0-8.3) gm/dl Albumin (3.4-5.0) gm/dl Globulin (2.5-4.0) gm/dl Albumin/Globulin Ratio (0.9-2) Levetiracetam < 2.0 L (6.0-46.0) mcg/mL Medications Administered Current Inpatient Medications Acetaminophen (Acetaminophen 325 Mg Tab) 650 mg PO Q6H PRN PRN Reason: pain, fever Stop: 03/27/23 12:36 Last Admin: 02/28/23 11:26 Dose: 650 mg Albuterol (Albuterol Hfa 8 Gm Inhaler) 2 puffs INH QIDR DELMI Stop: 03/29/23 22:59 Last Admin: 03/01/23 07:49 Dose: 2 puffs Atorvastatin Calcium (Atorvastatin 40 Mg Tab) 40 mg PO HS DELMI Stop: 03/27/23 20:59 Last Admin: 02/28/23 21:59 Dose: 40 mg Azithromycin (Azithromycin 250 Mg Tab) 250 mg PO QAM DELMI Stop: 03/05/23 08:59 Last Admin: 03/01/23 08:33 Dose: 250 mg Calcium/Vitamin D (Calcium 600mg + Vit D 400 Iu Tab) 1 tab PO DAILY DELMI Stop: 03/28/23 08:59 Last Admin: 03/01/23 08:33 Dose: 1 tab Clozapine (Clozapine 100 Mg Tab) 600 mg PO HS DELMI Stop: 03/27/23 20:59 Last Admin: 02/28/23 22:00 Dose: 600 mg Dextrose (Dextrose 50% 50 Ml Syringe) 25 - 50 ml IV UD PRN; Protocol PRN Reason: Hypoglycemia Protocol Stop: 03/27/23 12:47 Docusate Sodium (Docusate Sodium 100 Mg Cap) 100 mg PO BID DELMI Stop: 03/27/23 20:59 Last Admin: 03/01/23 08:37 Dose: 100 mg Enoxaparin Sodium (Enoxaparin Inj 40 Mg/0.4 Ml Syr) 40 mg SQ Q24H DELMI Stop: 03/28/23 15:59 Last Admin: 02/28/23 17:55 Dose: 40 mg Famotidine (Famotidine 20 Mg Tab) 20 mg PO DAILY DELMI Stop: 03/28/23 08:59 Last Admin: 03/01/23 08:33 Dose: 20 mg Fluticasone Propionate (Fluticasone Propionate Na Spr 16 Gm Btl) 2 sprays LUIS MANUEL QPM DELMI Stop: 03/27/23 20:59 Last Admin: 02/28/23 22:03 Dose: 2 sprays Glucagon (Glucagon For Inj 1 Mg Vial) 1 mg SQ UD PRN; Protocol PRN Reason: Hypoglycemia Protocol Stop: 03/27/23 12:47 Glucose (Glucose 10 Tab/Tube) 4 - 8 tab PO UD PRN; Protocol PRN Reason: Hypoglycemia Treatment Stop: 03/27/23 12:47 Glucose (Glucose 40% Gel 15 Gm Tube) 15 - 30 gm PO UD PRN; Protocol PRN Reason: Hypoglycemia Protocol Stop: 03/27/23 12:47 Guaifenesin/Dextromethorphan (Guaifenesin/Dextrom Syrup 200mg/20mg 10ml Udc) 10 ml PO Q6H PRN PRN Reason: Cough Stop: 03/27/23 12:34 Last Admin: 03/01/23 05:39 Dose: 10 ml Remdesivir 100 mg/ Sodium (Chloride) 250 mls @ 250 mls/hr IV Q24H DELMI Stop: 03/01/23 12:59 Last Infusion: 02/28/23 12:58 Dose: Infused Insulin Aspart (Insulin Aspart Per Unit Charge) 0 units SC ACHS DELMI Stop: 03/27/23 16:29 Last Admin: 03/01/23 08:16 Dose: 2 units Insulin Glargine (Lantus Per Unit Charge) 7 units SQ BID DELMI Stop: 03/27/23 20:59 Last Admin: 03/01/23 08:16 Dose: 7 units Lactic Acid (Ammonium Lactate 12% Lotion 225 Gm Btl) 15 gm EXT QAM DELMI Stop: 03/27/23 15:59 Last Admin: 03/01/23 08:35 Dose: 15 gm Levetiracetam (Levetiracetam 250 Mg Tab) 250 mg PO BID DELMI Stop: 03/27/23 20:59 Last Admin: 03/01/23 08:33 Dose: 250 mg Miscellaneous (Carbohydrates For Hypoglycemia ) 15 - 30 gm PO UD PRN PRN Reason: Hypoglycemia Protocol Stop: 03/27/23 12:47 Multivitamins (Multivitamin Tab) 1 tab PO QAM DELMI Stop: 03/28/23 08:59 Last Admin: 03/01/23 08:34 Dose: 1 tab Phenytoin Sodium (Phenytoin Sodium Er 100 Mg Cap) 200 mg PO BID DELMI Stop: 03/27/23 20:59 Last Admin: 03/01/23 08:34 Dose: 200 mg Polyethylene Glycol (Polyethylene (Miralax) 17 Gm Pack) 17 gm PO BID DELMI Stop: 03/27/23 20:59 Last Admin: 03/01/23 08:32 Dose: 17 gm Valacyclovir HCl (Valacyclovir Hcl 500 Mg Tablet) 500 mg PO DAILY DELMI Stop: 03/05/23 08:59 Last Admin: 03/01/23 08:34 Dose: 500 mg Vitamin B Complex (Vitamin B Complex Tab) 1 tab PO QAM DELMI Stop: 03/28/23 08:59 Last Admin: 03/01/23 08:34 Dose: 1 tab (3) Sepsis Sepsis acute organ dysfunction status: without acute organ dysfunction Sepsis type: sepsis due to unspecified organism Qualified Code(s): A41.9 - Sepsis, unspecified organism
[2023-03-01] MEDS: REMDESIVIR 100 MG in SODIUM CHLORIDE 0.9% 230 ML IV SCH (12:03)
[2023-03-01] MEDS: guaiFENesin 600 MG TABCR PO SCH ×2 (13:56→20:41)
[2023-03-01] MEDS: cefTRIAXone SODIUM 2,000 MG in DEXTROSE 5 % MINI-B 50 ML IV SCH (13:57)
[2023-03-01] MEDS: ENOXAPARIN INJ 40 MG/0.4 ML SYR SQ SCH (17:07)
[2023-03-01] MEDS: SODIUM CHLORIDE 0.65% NA SOLN 45 ML (OCEAN) SCH (20:42)
[2023-03-01] MEDS: ATORVASTATIN 40 MG TAB PO SCH (20:42)
[2023-03-01] MEDS: FLUTICASONE PROPIONATE NA SPR 16 GM BTL NAE SCH (20:43)
[2023-03-01] MEDS: cloZAPine 100 MG TAB PO SCH (20:43)
[2023-03-02 06:23] LABS: Hematocrit (blood only) 38.8 % (37.0-47.0); Hemoglobin 13.1 g/dl (12.0-16.0); Mean Corpuscular Hemoglobin 29.1 pg (25.0-34.0); Mean Corpuscular Hgb Conc 33.8 g/dL (32.0-36.0); Mean Corpuscular Volume 86.2 fL (80.0-100.0); Mean Platelet Volume 10.7 fL (9.4-12.4); Platelet Count 145 K/uL (130-400); RDW Coefficient of Variation 17.1 % (11.5-14.5); RDW Standard Deviation 53.8 fL (36.4-46.3); White Blood Count 6.03 K/ul (4.8-10.8)
[2023-03-02 06:44] LABS: BUN Creatinine Ratio 34.8 (10-20); Calcium 8.1 mg/dl (8.6-10.3); Creatinine Clr Calc Pharmacy 113.1 ml/min; Est GFR (African American) 125.3 ml/min; Est GFR (Non-African American) 108.1 ml/min; Magnesium 2.1 mg/dl (1.7-2.4); Phosphorus 3.3 mg/dl (2.5-4.9); Potassium 4.2 mmol/L (3.5-5.1)
[2023-03-02] MEDS: ALBUTEROL HFA 8 GM INHALER INH SCH ×4 (07:43→19:31)
[2023-03-02] MEDS: INSULIN ASPART PER UNIT CHARGE SC SCH ×4 (08:30→22:15)
[2023-03-02] MEDS: LANTUS PER UNIT CHARGE SQ SCH ×2 (08:31→22:09)
[2023-03-02] MEDS: PHENYTOIN SODIUM ER 100 MG CAP PO SCH ×2 (08:39→22:12)
[2023-03-02] MEDS: levETIRAcetam 250 MG TAB PO SCH ×2 (08:39→22:11)
[2023-03-02] MEDS: FAMOTIDINE 20 MG TAB PO SCH (08:39)
[2023-03-02] MEDS: guaiFENesin 600 MG TABCR PO SCH ×2 (08:40→22:10)
[2023-03-02] MEDS: AZITHROMYCIN 250 MG TAB PO SCH (08:40)
[2023-03-02] MEDS: valACYclovir HCL 500 MG TABLET PO SCH (08:40)
[2023-03-02] MEDS: MULTIVITAMIN TAB PO SCH (08:40)
[2023-03-02] MEDS: CALCIUM 600MG + VIT D 400 IU TAB PO SCH (08:40)
[2023-03-02] MEDS: VITAMIN B COMPLEX TAB PO SCH (08:40)
[2023-03-02] MEDS: AMMONIUM LACTATE 12% LOTION 225 GM BTL EXT SCH (08:41)
[2023-03-02] MEDS: SODIUM CHLORIDE 0.65% NA SOLN 45 ML (OCEAN) SCH ×3 (08:42→22:15)
[2023-03-02] MEDS: DOCUSATE SODIUM 100 MG CAP PO SCH ×2 (08:45→22:09)
[2023-03-02] MEDS: POLYETHYLENE (MIRALAX) 17 GM PACK PO SCH ×2 (08:45→22:10)
--- NOTE | 2023-03-02 08:57 | Hospitalist Progress Note ---
Date of Service March 02, 2023 Assessment & Plan (1) Metabolic encephalopathy: (2) SARS-CoV-2 positive: (3) Sepsis: (4) Paranoid schizophrenia: (5) Complex partial seizure: (6) DMII (diabetes mellitus, type 2): (7) Elevated lactic acid level: (8) Hypertension: Plan Ms. Brittany Oneill is a 62 year old woman with a past medical history of seizures c/b ambulatory and cognitive dysfunction, schizophrenia characterized by auditory hallucinations, DMTII, recent r femoral neck fracture s/p nailing 10/2022, who is admitted due to concerns for encephalopathy thought to be secondary to dehydration/COVID. On admission - Patient following commands like squeezing of hands and wiggling of toes, but did not speak; however, maintained eye contact. NH b2b sales representative at bedside. tachycardia, elevated heart rates, and lactic acidosis Acute Toxic Metabolic encephalopathy -Baseline able to communicate needs/feelings/pleasantries with mild verbal delay, walks with walker, baseline intention tremor (L>R per neuro note) -suspect COVID infection contributing to encephalopathy and lethargy, as well as dehydration -Reorient as able -Treat as follows -Follows w/ Dr. Marshall (neurology) as outpt - seen by Dr. Marshall on (02/27/2023)- pt seems at baseline mental status 02/27 - Pt is sitting up in chair today, more awake, answers simple questions appropriately, ambulates to bathroom 02/28 - more drowsy, laying in bed, per RN did not want to get up from bed 03/01 - sitting in chair, appears more awake and alert and overall improving. Continues to have significant cough. Flutter valve encouraged. 03/02 - cont. w/ cough, assisted w/ flutter valve - appears more tired today Sepsis secondary to COVID Infection Lactic Acidosis -RR 24, HR 90s-110s, lactic acidosis +COVID -UA negat. -procal negative, no clear consolidation, +cough on exam; otherwise afebrile -Started Remdesivir, will cont. -No O2 requirement or appreciable distress, hold Decadron -Robitussin and tylenol prn, albuterol prn, flutter valve for clearance -lactate 3.6-> 0.8 -IVF resuscitation, s/p 2L ED -CTX and Azithromycin empirically while infectious work up (blood cultures result) for superimposed infectious process Schizophrenia Chronic, stable -reports of auditory hallucinations at baseline -Continue clozapine 600mg QPM Complex Partial Seizures Chronic, stable -Follows Dr Marshall 01/22/2023, last seizure 2010 -continue Keppra 250mg BID and phenytoin 200 BID -Ordered levetiracetam and phenytoin levels, phenytoin level low, keppra level pending #DMTII Chronic, stable Home regimen: Metformin 1000mg BID, Glimepiride 2mg QAM, Glimepiride 1mg prn for BG >300, Jardiance 25mg daily -hold oral hypoglycemics -Start Lantus 7mg BID, with correction factor and carb consistent diet #GERD Chronic, stable -Continue home famotidine 20mg #Seasonal Allergies Chronic, stable -Continue home Flonase #HLD Chronic, stable -Continue Atorvastatin 40mg #Herpes Dermatitis Chronic, stable -Continue Valacyclovir 500mg BID #Hypertension -Previously on lisinopril, not actively taking it appears CTM DVT lovenox Bowel: home regimen, mirlax and docusate Replace lytes prn Diet DMII, regular per last speech eval-reflux/aspiration precautions Admission and Anticipated Discharge Date Admission Date: February 25, 2023 Subjective Pt seen in follow up of AMS, + COVID Sitting in chair, on RA, in NAD answers some simple questions appropriately, often w/ delay Follows simple commands Denies any headache, shortness of breath, abd. pain, chest pain, or any discomfort. + persistent cough however seems improved, assisted w/ flutter valve use Follows w/ Dr. Marshall from neurology - seen by Dr. Marshall here - seems mental status at baseline. Review of Systems Review of Systems: All systems reviewed & are unremarkable except as noted in Subjective Physical Exam Physical Exam: Constitutional:L thin F in NAD Eyes: PERRL, conjunctiva e normal, anicteri c sclerae Respiratory: + rhonchi diffuse, no wheezing Cardiovascular:L rrr Gastrointestinal ( Abdomen): soft NT, + bowel sounds Neurologic: awake and alert, eye contact when talking to patient , follows simple c ommands, moves ext remities, answers simple questions ( response may be de layed) Results & Data Results & Data Vital Signs (Past 12 Hours) Vital Signs Temp Pulse Pulse Resp BP Pulse Ox O2 Del Method 03/02/23 08:08 36.4 C L 80 17 107/70 95 Room Air 03/02/23 07:44 81 15 96 Room Air 03/02/23 02:37 36.5 C 90 18 131/81 94 Room Air 03/01/23 22:00 81 03/01/23 23:31 36.6 C 72 16 114/74 95 Room Air 03/01/23 21:00 Room Air Laboratory Results 03/02/23 03/02/23 03/02/23 Range/Units 07:48 05:57 05:57 WBC 6.03 (4.8-10.8) K/ul RBC 4.50 (4.20-5.40) M/uL Hgb 13.1 (12.0-16.0) g/dl Hct 38.8 (37.0-47.0) % MCV 86.2 (80.0-100.0) fL MCH 29.1 (25.0-34.0) pg MCHC 33.8 (32.0-36.0) g/dL RDW Std Deviation 53.8 H (36.4-46.3) fL RDW Coeff of Liliana 17.1 H (11.5-14.5) % Plt Count 145 (130-400) K/uL MPV 10.7 (9.4-12.4) fL Sodium 140 (136-145) mmol/L Potassium 4.2 (3.5-5.1) mmol/L Chloride 108 H (98-107) mmol/L Carbon Dioxide 26 (21-32) mmol/L Anion Gap 6 (3-11) BUN 16 (6-23) mg/dl Creatinine 0.46 L (0.6-1.2) mg/dl Est Cr Clr Drug Dosing 113.1 ml/min Est GFR ( Amer) 125.3 ml/min Est GFR (Non-Af Amer) 108.1 ml/min BUN/Creatinine Ratio 34.8 H (10-20) Glucose 105 H (70-99(Fasting)) mg/dl POC Glucose 117 H (70-99) mg/dl Calcium 8.1 L (8.6-10.3) mg/dl Phosphorus 3.3 (2.5-4.9) mg/dl Magnesium 2.1 (1.7-2.4) mg/dl 03/01/23 03/01/23 03/01/23 Range/Units 20:35 16:46 11:50 WBC (4.8-10.8) K/ul RBC (4.20-5.40) M/uL Hgb (12.0-16.0) g/dl Hct (37.0-47.0) % MCV (80.0-100.0) fL MCH (25.0-34.0) pg MCHC (32.0-36.0) g/dL RDW Std Deviation (36.4-46.3) fL RDW Coeff of Liliana (11.5-14.5) % Plt Count (130-400) K/uL MPV (9.4-12.4) fL Sodium (136-145) mmol/L Potassium (3.5-5.1) mmol/L Chloride (98-107) mmol/L Carbon Dioxide (21-32) mmol/L Anion Gap (3-11) BUN (6-23) mg/dl Creatinine (0.6-1.2) mg/dl Est Cr Clr Drug Dosing ml/min Est GFR ( Amer) ml/min Est GFR (Non-Af Amer) ml/min BUN/Creatinine Ratio (10-20) Glucose (70-99(Fasting)) mg/dl POC Glucose 143 H 143 H 162 H (70-99) mg/dl Calcium (8.6-10.3) mg/dl Phosphorus (2.5-4.9) mg/dl Magnesium (1.7-2.4) mg/dl Medications Administered Current Inpatient Medications Acetaminophen (Acetaminophen 325 Mg Tab) 650 mg PO Q6H PRN PRN Reason: pain, fever Stop: 03/27/23 12:36 Last Admin: 02/28/23 11:26 Dose: 650 mg Albuterol (Albuterol Hfa 8 Gm Inhaler) 2 puffs INH QIDR DELMI Stop: 03/29/23 22:59 Last Admin: 03/02/23 07:43 Dose: 2 puffs Atorvastatin Calcium (Atorvastatin 40 Mg Tab) 40 mg PO HS DELMI Stop: 03/27/23 20:59 Last Admin: 03/01/23 20:42 Dose: 40 mg Azithromycin (Azithromycin 250 Mg Tab) 250 mg PO QAM DELMI Stop: 03/05/23 08:59 Last Admin: 03/02/23 08:40 Dose: 250 mg Calcium/Vitamin D (Calcium 600mg + Vit D 400 Iu Tab) 1 tab PO DAILY DELMI Stop: 03/28/23 08:59 Last Admin: 03/02/23 08:40 Dose: 1 tab Clozapine (Clozapine 100 Mg Tab) 600 mg PO HS DELMI Stop: 03/27/23 20:59 Last Admin: 03/01/23 20:43 Dose: 600 mg Dextrose (Dextrose 50% 50 Ml Syringe) 25 - 50 ml IV UD PRN; Protocol PRN Reason: Hypoglycemia Protocol Stop: 03/27/23 12:47 Docusate Sodium (Docusate Sodium 100 Mg Cap) 100 mg PO BID DELMI Stop: 03/27/23 20:59 Last Admin: 03/02/23 08:45 Dose: 100 mg Enoxaparin Sodium (Enoxaparin Inj 40 Mg/0.4 Ml Syr) 40 mg SQ Q24H DELMI Stop: 03/28/23 15:59 Last Admin: 03/01/23 17:07 Dose: 40 mg Famotidine (Famotidine 20 Mg Tab) 20 mg PO DAILY DELMI Stop: 03/28/23 08:59 Last Admin: 03/02/23 08:39 Dose: 20 mg Fluticasone Propionate (Fluticasone Propionate Na Spr 16 Gm Btl) 2 sprays LUIS MANUEL QPM DELMI Stop: 03/27/23 20:59 Last Admin: 03/01/23 20:43 Dose: 2 sprays Glucagon (Glucagon For Inj 1 Mg Vial) 1 mg SQ UD PRN; Protocol PRN Reason: Hypoglycemia Protocol Stop: 03/27/23 12:47 Glucose (Glucose 10 Tab/Tube) 4 - 8 tab PO UD PRN; Protocol PRN Reason: Hypoglycemia Treatment Stop: 03/27/23 12:47 Glucose (Glucose 40% Gel 15 Gm Tube) 15 - 30 gm PO UD PRN; Protocol PRN Reason: Hypoglycemia Protocol Stop: 03/27/23 12:47 Guaifenesin (Guaifenesin 600 Mg Tabcr) 600 mg PO BID DELMI Stop: 03/31/23 13:14 Last Admin: 03/02/23 08:40 Dose: 600 mg Guaifenesin/Dextromethorphan (Guaifenesin/Dextrom Syrup 200mg/20mg 10ml Udc) 10 ml PO Q6H PRN PRN Reason: Cough Stop: 03/27/23 12:34 Last Admin: 03/01/23 20:44 Dose: 10 ml Ceftriaxone Sodium 2,000 mg/ (Dextrose) 50 mls @ 100 mls/hr IV Q24H [facility]; Protocol Stop: 03/08/23 13:29 Last Infusion: 03/01/23 14:28 Dose: Infused Insulin Aspart (Insulin Aspart Per Unit Charge) 0 units SC ACHS DELMI Stop: 03/27/23 16:29 Last Admin: 03/02/23 08:30 Dose: 2 units Insulin Glargine (Lantus Per Unit Charge) 7 units SQ BID DELMI Stop: 03/27/23 20:59 Last Admin: 03/02/23 08:31 Dose: 7 units Lactic Acid (Ammonium Lactate 12% Lotion 225 Gm Btl) 15 gm EXT QAM DELMI Stop: 03/27/23 15:59 Last Admin: 03/02/23 08:41 Dose: 15 gm Levetiracetam (Levetiracetam 250 Mg Tab) 250 mg PO BID DELMI Stop: 03/27/23 20:59 Last Admin: 03/02/23 08:39 Dose: 250 mg Miscellaneous (Carbohydrates For Hypoglycemia ) 15 - 30 gm PO UD PRN PRN Reason: Hypoglycemia Protocol Stop: 03/27/23 12:47 Multivitamins (Multivitamin Tab) 1 tab PO QAM DELMI Stop: 03/28/23 08:59 Last Admin: 03/02/23 08:40 Dose: 1 tab Phenytoin Sodium (Phenytoin Sodium Er 100 Mg Cap) 200 mg PO BID DELMI Stop: 03/27/23 20:59 Last Admin: 03/02/23 08:39 Dose: 200 mg Polyethylene Glycol (Polyethylene (Miralax) 17 Gm Pack) 17 gm PO BID DELMI Stop: 03/27/23 20:59 Last Admin: 03/02/23 08:45 Dose: 17 gm Sodium Chloride (Sodium Chloride 0.65% Na Soln 45 Ml ([place])) 1 sprays NA TID DELMI Stop: 03/31/23 20:59 Last Admin: 03/02/23 08:42 Dose: 1 sprays Valacyclovir HCl (Valacyclovir Hcl 500 Mg Tablet) 500 mg PO DAILY [facility] Stop: 03/05/23 08:59 Last Admin: 03/02/23 08:40 Dose: 500 mg Vitamin B Complex (Vitamin B Complex Tab) 1 tab PO QAM DELMI Stop: 03/28/23 08:59 Last Admin: 03/02/23 08:40 Dose: 1 tab (3) Sepsis Sepsis acute organ dysfunction status: without acute organ dysfunction Sepsis type: sepsis due to unspecified organism Qualified Code(s): A41.9 - Sepsis, unspecified organism
[2023-03-02] MEDS: cefTRIAXone SODIUM 2,000 MG in DEXTROSE 5 % MINI-B 50 ML IV SCH (14:22)
[2023-03-02] MEDS: ENOXAPARIN INJ 40 MG/0.4 ML SYR SQ SCH (17:14)
[2023-03-02] MEDS: cloZAPine 100 MG TAB PO SCH (22:11)
[2023-03-02] MEDS: ATORVASTATIN 40 MG TAB PO SCH (22:12)
[2023-03-02] MEDS: FLUTICASONE PROPIONATE NA SPR 16 GM BTL NAE SCH (22:15)
[2023-03-03] MEDS: ALBUTEROL HFA 8 GM INHALER INH SCH ×3 (07:37→14:23)
[2023-03-03 07:44] LABS: Hematocrit (blood only) 39.1 % (37.0-47.0); Hemoglobin 13.4 g/dl (12.0-16.0); Mean Corpuscular Hemoglobin 29.5 pg (25.0-34.0); Mean Corpuscular Hgb Conc 34.3 g/dL (32.0-36.0); Mean Corpuscular Volume 86.1 fL (80.0-100.0); Mean Platelet Volume 10.3 fL (9.4-12.4); Platelet Count 158 K/uL (130-400); RDW Coefficient of Variation 16.7 % (11.5-14.5); RDW Standard Deviation 52.4 fL (36.4-46.3); Red Blood Count 4.54 M/uL (4.20-5.40)
[2023-03-03 08:00] LABS: BUN Creatinine Ratio 34.8 (10-20); Calcium 8.1 mg/dl (8.6-10.3); Creatinine Clr Calc Pharmacy 110.7 ml/min; Est GFR (African American) 125.3 ml/min; Est GFR (Non-African American) 108.1 ml/min; Magnesium 2.2 mg/dl (1.7-2.4); Phosphorus 3.4 mg/dl (2.5-4.9); Potassium 4.1 mmol/L (3.5-5.1)
[2023-03-03] MEDS: INSULIN ASPART PER UNIT CHARGE SC SCH ×2 (08:03→12:46)
[2023-03-03] MEDS ORDERED: ADVANCED PROBIOTIC 1250 MG CAPSULE PO SCH (09:00)
[2023-03-03] MEDS: LANTUS PER UNIT CHARGE SQ SCH (09:07)
[2023-03-03] MEDS: DOCUSATE SODIUM 100 MG CAP PO SCH (09:08)
[2023-03-03] MEDS: AMMONIUM LACTATE 12% LOTION 225 GM BTL EXT SCH (09:08)
[2023-03-03] MEDS: MULTIVITAMIN TAB PO SCH (09:09)
[2023-03-03] MEDS: PHENYTOIN SODIUM ER 100 MG CAP PO SCH (09:09)
[2023-03-03] MEDS: FAMOTIDINE 20 MG TAB PO SCH (09:09)
[2023-03-03] MEDS: AZITHROMYCIN 250 MG TAB PO SCH (09:09)
[2023-03-03] MEDS: CALCIUM 600MG + VIT D 400 IU TAB PO SCH (09:09)
[2023-03-03] MEDS: levETIRAcetam 250 MG TAB PO SCH (09:09)
[2023-03-03] MEDS: SODIUM CHLORIDE 0.65% NA SOLN 45 ML (OCEAN) SCH ×2 (09:10→14:04)
[2023-03-03] MEDS: valACYclovir HCL 500 MG TABLET PO SCH (09:10)
[2023-03-03] MEDS: POLYETHYLENE (MIRALAX) 17 GM PACK PO SCH (09:10)
[2023-03-03] MEDS: VITAMIN B COMPLEX TAB PO SCH (09:10)
--- NOTE | 2023-03-03 12:22 | Hospitalist Progress Note ---
Date of Service March 03, 2023 Assessment & Plan (1) Metabolic encephalopathy: (2) SARS-CoV-2 positive: (3) Sepsis: (4) Paranoid schizophrenia: (5) Complex partial seizure: (6) DMII (diabetes mellitus, type 2): (7) Elevated lactic acid level: (8) Hypertension: Plan Ms. Brittany Oneill is a 62 year old woman with a past medical history of seizures c/b ambulatory and cognitive dysfunction, schizophrenia characterized by auditory hallucinations, DMTII, recent r femoral neck fracture s/p nailing 10/2022, who is admitted due to concerns for encephalopathy thought to be secondary to dehydration/COVID. On admission - Patient following commands like squeezing of hands and wiggling of toes, but did not speak; however, maintained eye contact. NH special service representative at bedside. Acute Metabolic encephalopathy -Baseline able to communicate needs/feelings/pleasantries with mild verbal delay, walks with walker, baseline intention tremor (L>R per neuro note) --CT head:Motion degraded exam without acute intracranial abnormality identified. Unchanged ventriculomegaly. --Likely due to COVID infection -Follows w/ Dr. Marshall (neurology) as outpt - seen by Dr. Marshall on (02/27/2023) Mental status back to baseline Sepsis secondary to COVID Infection Lactic Acidosis -CXR:Dependent airspace opacities could represent atelectasis versus a mild infectious/inflammatory pneumonitis. Clinical correlation will be required. Normal procalcitonin Completed Remdesivir course Lactate levels normalized with IV fluids Empirically received azithromycin and Rocephin course Transition to cefuroxime to complete the course Saturating well on room air Continue flutter, incentive spirometer Schizophrenia Chronic, stable -Reports Auditory hallucinations at baseline -Continue clozapine 600mg QPM Complex Partial Seizures Chronic, stable -Follows Dr Marshall 01/22/2023, last seizure 2010 -continue Keppra 250mg BID and phenytoin 200 BID DM II Chronic, stable Home regimen: Metformin 1000mg BID, Glimepiride 2mg QAM, Glimepiride 1mg prn for BG >300, Jardiance 25mg daily -hold oral hypoglycemics -Continue Insulin per protocol GERD Chronic, stable Continue home famotidine 20mg Seasonal Allergies Chronic, stable Continue home Flonase HLD Chronic, stable Continue Atorvastatin 40mg Herpes Dermatitis Chronic, stable Continue Valacyclovir 500mg BID Hypertension Previously on lisinopril, not actively taking BP Stable Monitor DVT Px: Lovenox SQ Admission and Anticipated Discharge Date Admission Date: February 25, 2023 Subjective Patient is seen and examined at bedside Slow to respond but answers appropriately Cough much improved Denies any chest pain, dyspnea, dizziness Saturating well on room air No other complaints Review of Systems Review of Systems: All systems reviewed & are unremarkable except as noted in Subjective Physical Exam Physical Exam: Physical Exam: Vitals signs as noted above General Appearance:Thin, no apparent distress Head: normocephalic, Atraumatic Eyes: normal inspection, EOMI Neck: supple, Trachea midline Respiratory/Chest: Decreased breath sounds, CTA, No accessory muscle use Cardiovascular: S1, S2, No murmur Abdomen/GI:Soft, Non tender, Bowel sounds present Extremities/Musculoskeletal:normal inspection, no edema Neurologic/Psych:AAOX1, grossly no focal neurological deficits Skin: normal color, warm Results & Data Results & Data Vital Signs (Past 12 Hours) Vital Signs Temp Pulse Pulse Resp BP Pulse Ox O2 Del Method 03/03/23 11:49 36.6 C 87 19 112/68 96 Room Air 03/03/23 11:28 84 18 97 Room Air 03/03/23 10:02 73 03/03/23 08:01 77 20 94 Room Air 03/03/23 07:45 36.7 C 79 20 115/72 92 Room Air 03/03/23 02:36 36.7 C 67 16 118/70 96 Room Air Laboratory Results Short CBC 03/03/23 Range/Units 07:12 WBC 5.80 (4.8-10.8) K/ul Hgb 13.4 (12.0-16.0) g/dl Hct 39.1 (37.0-47.0) % Plt Count 158 (130-400) K/uL BMP 03/03/23 07:12 Sodium 141 Potassium 4.1 Chloride 110 H Carbon Dioxide 26 BUN 16 Creatinine 0.46 L Glucose 72 Calcium 8.1 L (3) Sepsis Sepsis acute organ dysfunction status: without acute organ dysfunction Sepsis type: sepsis due to unspecified organism Qualified Code(s): A41.9 - Sepsis, unspecified organism
--- NOTE | 2023-03-03 15:30 | Discharge Summary ---
Date of Service March 03, 2023 Admission HPI Per Admitting Provider Ms. Brittany Oneill is a 62 year old woman with a past medical history of seizures c/b ambulatory and cognitive dysfunction, schizophrenia characterized by auditory hallucinations, DMTII, recent r femoral neck fracture s/p nailing 10/2022, who presented to ED from [facility] due to altered mental status. Patient unable to provide history, however, primary AR sales representative church [employer] who cares for patient often at bedside. AR rep reports that patient has appeared to be in usual state of health, noting patient does speak with noted verbal delay, but otherwise requires minimal assistance. Rep reports that patient was at baseline 02/24/2023, however, upon entering room this morning, patient was not responsive verbally and required full assistance. Rep does note that a recent aide did work with patient and was ill during time of contact with patient--but is unaware of COVID status. Upon arrival to ED, patient was hypertensive to 150s, tachypnic on room air, and tachycardic. Labs revealed lactate of 3.6, elevated glucose to 280s but no sign of DKA, negative procal, concentrated CBC (hgb 15 baseline 11-13), no leukocytosis Resp panel +COVID, otherwise negative CXR with some increased airspace opacities when compared to previous studies Patient given 2L NS in ED Admission Exam Per Admitting Provider Constitutional: appears lethargic, alert to verbal stimuli, eye contact when talking to patient, follows simple commands Eyes: PERRL, conjunctivae normal, anicteric sclerae Respiratory: coarse breath sounds, dry cough, no wheezing or crackles apprecaited Cardiovascular: tachycardia Gastrointestinal (Abdomen): appears distended initially, but soft NT Neurologic: alert, responsive to verbal stimuli but lethergic Principal Diagnosis Acute Metabolic encephalopathy Sepsis secondary to COVID Infection Lactic Acidosis Discharge Data Allergies Allergy/AdvReac Type Severity Reaction Status Date / Time divalproex sodium Allergy Unknown Unknown Verified 02/11/23 12:10 [From Depakote] salicylates Allergy Unknown Unknown Verified 02/11/23 12:10 valproic acid Allergy Unknown Unknown Verified 02/11/23 12:10 aspirin AdvReac Severe STOMACH Verified 02/11/23 12:10 ULCER BLEEDING Consultations 02/25/23 11:49 ED Decision to Admit Stat 02/27/23 09:00 Consult Neurology Routine Procedures Performed Laboratory Results WBC 5.80 K/ul (4.8-10.8) 03/03/23 07:12 RBC 4.54 M/uL (4.20-5.40) 03/03/23 07:12 Hgb 13.4 g/dl (12.0-16.0) 03/03/23 07:12 Hct 39.1 % (37.0-47.0) 03/03/23 07:12 MCV 86.1 fL (80.0-100.0) 03/03/23 07:12 MCH 29.5 pg (25.0-34.0) 03/03/23 07:12 MCHC 34.3 g/dL (32.0-36.0) 03/03/23 07:12 RDW Std Deviation 52.4 fL (36.4-46.3) H 03/03/23 07:12 RDW Coeff of Liliana 16.7 % (11.5-14.5) H 03/03/23 07:12 Plt Count 158 K/uL (130-400) 03/03/23 07:12 MPV 10.3 fL (9.4-12.4) 03/03/23 07:12 Immature Gran % (Auto) 0.4 % 02/26/23 07:00 Neut % (Auto) 79.6 % 02/26/23 07:00 Lymph % (Auto) 8.7 % 02/26/23 07:00 [place] % (Auto) 11.2 % 02/26/23 07:00 Eos % (Auto) 0.0 % 02/26/23 07:00 Baso % (Auto) 0.1 % 02/26/23 07:00 Neut # (Auto) 8.14 K/uL (1.40-6.50) H 02/26/23 07:00 Lymph # (Auto) 0.89 K/uL (1.20-3.40) L 02/26/23 07:00 [place] # (Auto) 1.14 K/uL (0.11-0.59) H 02/26/23 07:00 Eos # (Auto) 0.00 K/uL (0.00-0.50) 02/26/23 07:00 Baso # (Auto) 0.01 K/uL (0.00-0.20) 02/26/23 07:00 Immature Gran # (Auto) 0.04 K/uL (0.01-0.20) 02/26/23 07:00 PT 10.5 Seconds (9.0-12.0) 02/25/23 08:30 INR 1.0 (0.9-1.1) 02/25/23 08:30 Sodium 141 mmol/L (136-145) 03/03/23 07:12 Potassium 4.1 mmol/L (3.5-5.1) 03/03/23 07:12 Chloride 110 mmol/L (98-107) H 03/03/23 07:12 Carbon Dioxide 26 mmol/L (21-32) 03/03/23 07:12 Anion Gap 5 (3-11) 03/03/23 07:12 BUN 16 mg/dl (6-23) 03/03/23 07:12 Creatinine 0.46 mg/dl (0.6-1.2) L 03/03/23 07:12 Est Cr Clr Drug Dosing 110.7 ml/min 03/03/23 07:12 Est GFR ( Amer) 125.3 ml/min 03/03/23 07:12 Est GFR (Non-Af Amer) 108.1 ml/min 03/03/23 07:12 BUN/Creatinine Ratio 34.8 (10-20) H 03/03/23 07:12 Glucose 72 mg/dl (70-99(Fasting)) 03/03/23 07:12 POC Glucose 186 mg/dl (70-99) H 03/03/23 11:48 Lactate 0.8 mmol/L (0.4-2.0) 02/25/23 16:03 Calcium 8.1 mg/dl (8.6-10.3) L 03/03/23 07:12 Phosphorus 3.4 mg/dl (2.5-4.9) 03/03/23 07:12 Magnesium 2.2 mg/dl (1.7-2.4) 03/03/23 07:12 Total Bilirubin 0.5 mg/dl (0.2-1.0) 03/01/23 07:36 AST 25 U/L (13-39) 03/01/23 07:36 ALT 29 U/L (7-52) 03/01/23 07:36 Alkaline Phosphatase 85 U/L (34-104) 03/01/23 07:36 Troponin I High Sens < 2.3 pg/ml (0-14) 02/25/23 08:30 Total Protein 6.0 gm/dl (6.0-8.3) 03/01/23 07:36 Albumin 3.4 gm/dl (3.4-5.0) 03/01/23 07:36 Globulin 2.6 gm/dl (2.5-4.0) 03/01/23 07:36 Albumin/Globulin Ratio 1.3 (0.9-2) 03/01/23 07:36 Procalcitonin < 0.05 ng/ml (0-0.5) 02/25/23 08:42 TSH 0.859 uIu/ml (0.300-4.500) 02/25/23 08:30 Urine Color Yellow 02/25/23 10:32 Urine Appearance Clear (Clear) 02/25/23 10:32 Urine pH 6.5 (4.5-7.5) 02/25/23 10:32 Ur Specific [place] 1.029 (1.000-1.030) 02/25/23 10:32 Urine Protein Negative (Negative) 02/25/23 10:32 Urine Glucose (UA) 3+ (Negative) H 02/25/23 10:32 Urine Ketones Negative (Negative) 02/25/23 10:32 Urine Blood Negative (Negative) 02/25/23 10:32 Urine Nitrite Negative (Negative) 02/25/23 10:32 Urine Bilirubin Negative (Negative) 02/25/23 10:32 Urine Urobilinogen Negative (Negative) 02/25/23 10:32 Ur Leukocyte Esterase Trace (Negative) H 02/25/23 10:32 Urine WBC (Auto) 5-10 /hpf (0-5) H 02/25/23 10:32 Urine RBC (Auto) 0-4 /hpf (0-4) 02/25/23 10:32 U Hyaline Cast (Auto) 1-5 /lpf (0-5) 02/25/23 10:32 U Epithel Cells (Auto) 20-30 /lpf (0-5) H 02/25/23 10:32 Urine Bacteria (Auto) Negative (Negative) 02/25/23 10:32 Nasal Screen MRSA (PCR) Negative (Negative) 02/26/23 08:12 Phenytoin < 3.0 mcg/ml (10-20) L 02/25/23 16:03 Levetiracetam < 2.0 mcg/mL (6.0-46.0) L 02/25/23 13:55 Adenovirus (PCR) Not Detected (NotDetected) 02/25/23 09:28 B. pertussis DNA (PCR) Not Detected (NotDetected) 02/25/23 09:28 B.parapertussis DNA PCR Not Detected (NotDetected) 02/25/23 09:28 C. pneumoniae DNA (PCR) Not Detected (NotDetected) 02/25/23 09:28 Coronavirus OC43 (PCR) Not Detected (NotDetected) 02/25/23 09:28 Coronavirus HKU1 (PCR) Not Detected (NotDetected) 02/25/23 09:28 Coronavirus 229E (PCR) Not Detected (NotDetected) 02/25/23 09:28 SARS-CoV-2 (PCR) DETECTED (NotDetected) A* 02/25/23 09:28 Coronavirus NL63 (PCR) Not Detected (NotDetected) 02/25/23 09:28 Human Metapneumovir PCR Not Detected (NotDetected) 02/25/23 09:28 Influenza Type A (PCR) Not Detected (NotDetected) 02/25/23 09:28 Influenza Type B (PCR) Not Detected (NotDetected) 02/25/23 09:28 M. pneumoniae (PCR) Not Detected (NotDetected) 02/25/23 09:28 Parainfluenza 1 (PCR) Not Detected (NotDetected) 02/25/23 09:28 Parainfluenza 2 (PCR) Not Detected (NotDetected) 02/25/23 09:28 Parainfluenza 3 (PCR) Not Detected (NotDetected) 02/25/23 09:28 Parainfluenza 4 (PCR) Not Detected (NotDetected) 02/25/23 09:28 RSV (PCR) Not Detected (NotDetected) 02/25/23 09:28 Entero/Rhino (PCR) Not Detected (NotDetected) 02/25/23 09:28 Impressions Chest X-Ray 02/25/23 08:42 SINGLE VIEW CHEST CLINICAL HISTORY: Generalized weakness. FINDINGS: An AP, portable, upright chest radiograph is compared to study dated 12/03/2022. The cardiomediastinal silhouette is unremarkable. There is chronic elevation of the left hemidiaphragm. Dependent airspace opacities are seen bilaterally. No large pleural effusion or pneumothorax is identified. The skeletal structures are osteopenic. The bony thorax is grossly intact. IMPRESSION: Dependent airspace opacities could represent atelectasis versus a mild infectious/inflammatory pneumonitis. Clinical correlation will be required. ACT 112: Negative or not required by law. Electronically signed by: Carlos Savage M.D. 02/25/2023 9:[address] 02/25/23 08:42 CT head/brain wo con CLINICAL HISTORY: 62 years-old Female with R sided facial droop; weakness; AMS. Acutely altered mental status with strokelike symptoms TECHNIQUE: Multiple axial CT images of the head were obtained without contrast. A dose lowering technique was utilized adhering to the principles of ALARA. CT DOSE: 1016.05 mGy.cm COMPARISON: 10/14/2022 FINDINGS: Motion degraded exam. No acute intracranial hemorrhage, midline shift, intracranial mass, acute territorial ischemia or abnormal extra-axial collection. Ventriculomegaly is again noted with transverse dimension of the lateral ventricles measuring up to 4.4 cm, stable from prior. The calvarium is intact. The paranasal sinuses, mastoid air cells, and middle ear cavities are clear. IMPRESSION: 1. Motion degraded exam without acute intracranial abnormality identified. 2. Unchanged ventriculomegaly. ACT 112: Negative or not required by law. The above report was generated using voice recognition software. It may contain grammatical, syntax or spelling errors. Electronically signed by: Vince Brito M.D. 02/25/2023 9:07 AM Ordered Studies 02/25/23 08:42 CT head/brain wo con Stat Hospital Course (1) Metabolic encephalopathy: (2) SARS-CoV-2 positive: (3) Sepsis: (4) Paranoid schizophrenia: (5) Complex partial seizure: (6) DMII (diabetes mellitus, type 2): (7) Elevated lactic acid level: (8) Hypertension: Plan Ms. Brittany Oneill is a 62 year old woman with a past medical history of seizures c/b ambulatory and cognitive dysfunction, schizophrenia characterized by auditory hallucinations, DMTII, recent r femoral neck fracture s/p nailing 10/2022, who is admitted due to concerns for encephalopathy thought to be secondary to dehydration/COVID. On admission - Patient following commands like squeezing of hands and wiggling of toes, but did not speak; however, maintained eye contact. NH sales representative church furniture at bedside. Acute Metabolic encephalopathy -Baseline able to communicate needs/feelings/pleasantries with mild verbal delay, walks with walker, baseline intention tremor (L>R per neuro note) --CT head:Motion degraded exam without acute intracranial abnormality identif ied. Unchanged ventriculomegaly. --Likely due to COVID infection -Follows w/ Dr. Marshall (neurology) as outpt - seen by Dr. Marshall on (02/27/2023) Mental status back to baseline Sepsis secondary to COVID Infection Lactic Acidosis -CXR:Dependent airspace opacities could represent atelectasis versus a mild infectious/inflammatory pneumonitis. Clinical correlation will be required. Normal procalcitonin Completed Remdesivir course Lactate levels normalized with IV fluids Empirically received azithromycin and Rocephin course Transition to cefuroxime to complete the course Saturating well on room air Continue flutter, incentive spirometer Schizophrenia Chronic, stable -Reports Auditory hallucinations at baseline -Continue clozapine 600mg QPM Complex Partial Seizures Chronic, stable -Follows Dr Marshall 01/22/2023, last seizure 2010 -continue Keppra 250mg BID and phenytoin 200 BID DM II Chronic, stable Home regimen: Metformin 1000mg BID, Glimepiride 2mg QAM, Glimepiride 1mg prn for BG >300, Jardiance 25mg daily -hold oral hypoglycemics -Continue Insulin per protocol GERD Chronic, stable Continue home famotidine 20mg Seasonal Allergies Chronic, stable Continue home Flonase HLD Chronic, stable Continue Atorvastatin 40mg Herpes Dermatitis Chronic, stable Continue Valacyclovir 500mg BID Hypertension Previously on lisinopril, not actively taking BP Stable Monitor DVT Px: Lovenox SQ Total Time Total Time Spent Total Time Spent (In Minutes): 45 minutes Discharge Plan Discharge Items Patient Disposition: Home - Self-Care Reason For Visit: AMS Discharge Diagnosis: Acute Metabolic encephalopathy Sepsis secondary to COVID Infection Lactic Acidosis Activity: Per Instructions section Exercise/Sports: Wait until after follow-up appointment Non-emergency contact: Primary Care Provider Call non-emergency contact if: you have any medication questions, your symptoms worsen, your pain is concerning for you and you have a fever Follow-up/Referrals: Delmy Jacobsen PA-C [Primary Care Provider] - (Date & Time 03/10/2023 9:40 AM Provider Delmy Jacobsen PA-C Department [facility] ) Diet: Carb Consistent or DM2 Addtl Attending Provider Instructions: Follow-up with your primary care physician Delmy Jacobsen PA-C on 03/10/2023 9:40 AM --- Complete antibiotic course cefuroxime as prescribed. Seek immediate medical attention if your symptoms reoccur or worsen Please take all medications as instructed on discharge list below. Please call if you have any questions or problems. You can reach a [facility] hospitalist on duty at [facility] 24 hours a day by calling [phone] Pending Studies at Discharge: No Stand-Alone Forms: My [facility], Smoking Cessation Medications and DC Order Prescriptions: New cefuroxime axetil 500 mg Tablet 500 mg PO BID@0700,1900 Qty: 6 0RF albuterol sulfate [Ventolin HFA] 90 mcg/actuation Hfa Aerosol Inhaler 2 puff inhalation QIDR PRN (Reason: shortness of breath or wheezing) Qty: 6.7 0RF Advanced Probiotic 625 mg (10 billion cell) Capsule 2 cap PO DAILY Qty: 10 0RF Robitussin Cough-Chest Samm DM 5-100 mg/5 mL Liquid 10 ml PO Q6H PRN (Reason: cough) Qty: 118 0RF Continued levetiracetam [Keppra] 250 mg tablet 250 mg PO BID 90 Days Qty: 180 3RF phenytoin sodium extended [Dilantin Extended] 100 mg capsule 200 mg PO BID 90 Days Qty: 360 3RF fluticasone propionate 50 mcg/actuation spray,suspension 2 sprays INTNAS QPM famotidine 20 mg tablet 20 mg PO DAILY Jardiance 10 mg tablet 25 mg PO DAILY atorvastatin 40 mg tablet 40 mg PO HS glimepiride 2 mg tablet 2 mg PO QAM metformin 500 mg tablet extended release 24 hr 1,000 mg PO BID Women's One Daily 18 mg iron-400 mcg-500 mg Ca Tablet 1 tab PO QAM vitamin B complex Tablet 1 tab PO QAM polyethylene glycol 3350 [Miralax] 17 gram powder in packet 17 g PO BID Rx Instructions: HOLD IF HAS DIARRHEA ammonium lactate 12 % cream 1 applic TOPICAL QAM Rx Instructions: Apply to feet. docusate sodium [Colace] 100 mg Capsule 100 mg PO BID clozapine 200 mg tablet 600 mg PO HS glimepiride 1 mg Tablet 1 mg PO DIRECTED PRN (Reason: BSG >300.) food supplemt, lactose-reduced Liquid 1 ea PO QAM Rx Instructions: IF DOESN'T TAKE WITH BREAKFAST, GIVE FOR LUNCH acetaminophen [Tylenol Extra Strength] 500 mg Tablet 1,000 mg PO Q8H Qty: 30 0RF triamcinolone acetonide 0.1 % cream 1 applic TOPICAL BID PRN (Reason: Rash) Rx Instructions: apply to right buttocks prn rash valacyclovir 500 mg Tablet 500 mg PO DAILY Calcium Citrate + D 200 - 315 mcg PO DAILY Rx Instructions: two tablets daily Discharge Orders: Discharge Order (Routine); Ordered 03/03/23 Ordered By: Cm Moreland Admission Data Admit Date/Time: 02/25/23 12:03 Attending Provider: Cm Moreland Admit Provider: Debby Metz Primary Care Provider: Delmy Jacobsen. Other Providers: Debby Metz ; Marky Marshall
[2023-03-03] MEDS ORDERED: cefUROXime axetil 500 MG TAB PO SCH (19:00)
== END 2023-03-03 16:02 | disposition home or self-care (01) | DRG 871 ==
LOC: ED 08:19 → SUATTDRO 12:03 → EDINP 12:03 → 2S 02-26 03:30
DX: Z79.899 Other long term (current) drug therapy; G93.89 Other specified disorders of brain; E87.20 Acidosis, unspecified; Z79.51 Long term (current) use of inhaled steroids; B00.89 Other herpesviral infection; U07.1 COVID-19; A41.89 Other specified sepsis; I10 Essential (primary) hypertension; E78.5 Hyperlipidemia, unspecified; E11.9 Type 2 diabetes mellitus without complications; Z79.84 Long term (current) use of oral hypoglycemic drugs; G25.2 Other specified forms of tremor; G93.41 Metabolic encephalopathy; G40.209 Localization-related (focal) (partial) symptomatic epilepsy and epileptic syndromes with complex partial seizures, not intractable, without status epilepticus; K21.9 Gastro-esophageal reflux disease without esophagitis; E86.0 Dehydration; F20.0 Paranoid schizophrenia; Z88.8 Allergy status to other drugs, medicaments and biological substances; F81.9 Developmental disorder of scholastic skills, unspecified; Z88.6 Allergy status to analgesic agent

== ENCOUNTER 2023-05-17 08:34 | Inpatient (IN) ==
--- OUTSIDE RECORDS SUMMARY | 2023-05-17 08:40 | External Medical Summary | Summary of Care ---
Author Name Unknown Organization [facility] Address [address] [place] [address] Phone [phone] Care Team Providers Care Pensionholder Information Clerk Name Role Phone Dheeraj NORWOOD MD, Vitor Baird Primary Care Provider [phone] Reason for Visit * Reason Onset Date Comments Emergency Department Follow-Up 04/26/2023 Encounter Details Date Type Department Care Team (Late st Contact Info) Description 04/26/2023 Telephone Family Practice [facility] [address] [place] [address] Vitor Esqueda III, MD [address] [place] [address] Emergency Department Follow-Up Allergies Active Allergy Reactions Criticality Noted Date Comments Aspirin 08/05/2016 Depakote Er Unknown 09/12/2007 Salicylates Unknown 10/30/2003 aspirin documented as of this encounter (statuses as of 04/27/2023) Medications Medication Sig Dispensed Refills Start Date End Date Status LEVETIRACETAM 250 MG PO TABS 1 tab twwice daily 0 Active Blood Glucose Monitoring Suppl ([employer] ULTRA SYSTEM) W/DEVICE KITIndications:Type 2 diabetes mellitus with hemoglobin A1c goal of less than 7.0% ([facility]) Use as directed 4 times a day as needed for Hyperglycemia (high sugar) or Hypoglycemia (low sugar). f E11.9 1 Kit 0 7 Active MEDICAL INSTRUCTIONSIndications: Type 2 diabetes mellitus with hemoglobin A1c goal of less than 7.0% (HCC) Check glucose daily before supper. May skip on days of outings. May check if signs or symptoms of low blood sugar. (may refer to handout) 1 Each 1 7 Active cloZAPine 200 MG Oral Tablet 3 tabs at night 90 Tablet 5 2 Active Depend Pant Sm/MedIndications:Urinar y incontinence, unspecified type As needed 140 Each 11 2 Active Depend Pant Large As needed 144 Each 6 2 Active Triamcinolone Acetonide 0.1 % External Cream (Aristocort)Indications: Ear lesion Apply topically to affected area 2 times a day as needed for Other (rash). To affected area. 15 g 5 3 Active Phenytoin Sodium Extended 100 MG Oral Capsule (Dilantin) Take 2 Capsules by mouth in the morning and 2 Capsules before bedtime. 0 Active Empagliflozin 25 MG Oral Tablet (Jardiance) Take 1 Tablet by mouth in the morning. 90 Tablet 2 3 Active Boost 100 Calorie Smart Oral Liquid DAILY IN THE MORNING 0 3 Active Famotidine 40 MG Oral Tablet (Pepcid) Take 1 Tablet by mouth at bedtime. 30 Tablet 11 3 Active Glimepiride 1 MG Oral Tablet (Amaryl) Take one tablet daily in addition to Glimepiride 2mg if blood sugar is greater than 300. 30 Tablet 5 3 Active Ammonium Lactate 12 % External Cream (Lac-Hydrin) Apply to feet once daily 385 g 3 3 Active One-A-Day Womens Oral Tablet TAKE 1 TABLET BY MOUTH ONCE DAILY (DX: FOR GENERAL HEALTH) 30 Tablet 11 3 Active valACYclovir HCl 500 MG Oral Tablet (Valtrex)Indications:Her pes simplex disease Take 1 Tablet by mouth in the morning. 30 Tablet 11 3 Active Super B Complex/Vitamin C Oral Tablet Take 1 Tablet by mouth in the morning. 30 Tablet 0 3 Active OneTouch Ultra In Vitro Strip (Glucose Blood)Indications:Type 2 diabetes mellitus with hemoglobin A1c goal of less than 7.0% ([facility]) TEST BLOOD SUGAR before breakfast and supper FOR DIABETES 200 Strip 2 3 Active Fluticasone Propionate 50 MCG/ACT Nasal Suspension (Flonase)Indications:Acu te maxillary sinusitis, recurrence not specified INSTILL 2 SPRAYS INTO EACH NOSTRIL ONCE DAILY FOR ALLERGIES 16 g 5 3 Active Polyethylene Glycol 3350 17 GM/SCOOP Oral Powder (Miralax) MIX 1 CAPFUL (17GM) WITH 8OZ OF FLUID AND DRINK Twice DAILY FOR CONSTIPATION HOLD FOR LOOSE STOOLS OR DIARRHEA 476 g 5 3 Active Calcium Citrate-Vitamin D 200-3.125 MG-MCG Oral Tablet Take 2 Tablets by mouth in the morning. 0 Active Accu-Chek Safe-T Pro LancetsIndications:Type 2 diabetes mellitus with hemoglobin A1c goal of less than 7.0% (HCC) USE TO TEST BLOOD SUGAR twice DAILY FOR DM 200 Each 1 3 Active metFORMIN HCl ER 500 MG Oral Tablet Extended Release 24 Hour (Glucophage XR) TAKE 2 TABLETS (1000MG) BY MOUTH TWICE DAILY FOR DIABETES TO BE BUBBLE PACKED. 124 Tablet 11 3 Active Atorvastatin Calcium 40 MG Oral Tablet (Lipitor)Indications:Pur e hypercholesterolemia TAKE 1 TABLET BY MOUTH AT BEDTIME (DX: FOR CHOLESTEROL) 31 Tablet 11 3 Active Docusate Sodium 100 MG Oral Capsule (Colace)Indications:Cons tipation, unspecified constipation type TAKE 1 CAPSULE BY MOUTH TWICE DAILY (DX: CONSTIPATION) 62 Capsule 11 3 Active Glimepiride 2 MG Oral Tablet (Amaryl)Indications:Type 2 diabetes mellitus with hemoglobin A1c goal of less than 7.0% (HCC) TAKE 1 TABLET BY MOUTH ONCE DAILY WITH FIRST MAIN MEAL OF THE DAY (DX: DIABETES) 31 Tablet 11 3 Active documented as of this encounter (statuses as of 04/27/2023) Active Problems Problem Noted Date Diagnosed Date Age-related osteoporosis wit hout current pathological fracture 03/10/2023 Seizure disorder, simple par tial, 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 epilepsy 09/17/2022 Herpes dermatitis 03/12/2021 Choking due to food (regurgitated), initial enco unter 03/22/2018 Type 2 diabetes mellitus wit h hemoglobin A1c goal of less than 7.0% 03/14/2009 Overview: Per Diabetes Taxonomy. ICD-10 update of inactive term PARANOID SCHIZO-CHRONIC 10/30/2003 OTHER URINARY INCONTINENCE 10/30/2003 Mild intellectual disability 10/30/2003 Overview: ICD-10 update of inactive term Convulsions 10/30/2003 Other specified types of schizophrenia, chronic condition documented as of this encounter (statuses as of 04/27/2023) Resolved Problems Problem Noted Date Diagnosed Date Resolved Date Constipation 09/10/2012 03/07/2018 Overview: ICD-10 update of inactive term ACTIVE CASE MANAGEMENT Keke Solis RN [phone] 01/25/2008 03/03/2010 Type 2 diabetes mellitus wit h hemoglobin A1c goal of less than 7.0% 10/30/2003 03/14/2009 Overview: Per Diabetes Taxonomy. ICD-10 update of inactive term Intellectual disability 10/30/200302/15 Overview: ICD-10 update of inactive term DM type 2, not at goal 10/30/200309/11 Psychotic disorder 10/30/2003 0 documented as of this encounter (statuses as of 04/27/2023) Immunizations Name Administration Dates Next Due COVID-19 mRNA, LNP-s, No Pre serve, 2-Dose Series (Moderna) 07/10/2020,06/12/2020 COVID-19, mRNA, LNP-s, PF, B ooster, 100mcg/0.5mg (Moderna) 09/18/2021,04/01/2021 Covid-19, Mrna, Lnp-s, Pf, B ivalent, 50 Mcg, IM, 12 yrs and above (Moderna) 03/11/2022 Hepatitis B, 20+ yrs 09/10/2014,03/08/2014,02/06 PPD 03/09/2022, 0,03/08/2019,03/04,02/14/2015,01/31/2013,01/25/2012 ,03/26/2010,09/21/2008 Pneumococcal Conjugate Vacci ne, 20-valent ([id number]) 03/09/2022 Pneumococcal Polysaccharide PPV23 (Pneumovax) 09/16/2005 Seasonal Influenza, PF, 6 M & above, IM , (FluLaval or Fluzone) 03/10/2023,02/04/2022,01/21/2021,03/11,01/25/2019,03/07/2018,02/26/2017 Seasonal Influenza, Quadriva lent, No Preserve, IM 02/24/2016,02/14/2015 Seasonal Influenza, Split, I IV3, With Preserve, Inj 02/06/2014,01/31/2013,02/18/2012,01/24,02/26/2011,03/26/2010,04/06/2009 ,03/27/2008,02/15/2007 TD, Preservative Free 03/08/2019,02/17/1999 TDAP (age 11 and older)(Adacel) 09/23/2009 Zoster Vaccine Recombinant (Shingrix) 04/30/2020 ,12/19/2019,11/09/2019 documented as of this encounter Social History Tobacco Use Types Packs/Day Years Used Date Smoking Tobacco: Never Smokeless Tobacco: Never Alcohol Use Standard Drinks/Week Comments No 0 (1 standard drink = 0.6 oz pur e alcohol) PHQ-2 Answer Date Recorded PHQ Adult Total Score 0 03/09/2022 Hunger Vital Sign Answer Date Recorded Worried About Running Out of Food in the Last Ye ar Never true 05/26/2019 Ran Out of Food in the Last Year Never true 05/26/2019 Sex and Gender Information Value Date Recorded Sex Assigned at Female 08/26/2018 1:59 PM EDT Gender Identity Female 08/26/2018 1:59 PM EDT Sexual Orientation Straight 08/26/2018 1: 59 PM EDT Job Start Date Occupation Industry Not on file Not on file Not on file documented as of this encounter Miscellaneous Notes * Telephone Encounter - Ivy Petersen OSA - 04/27/2023 11:39 AM EST Pt is scheduled * Telephone Encounter - Mari Cyr LPN - 04/26/2023 10:52 AM EST Please call and schedule pt for an Er follow up appt with any available provider. * Telephone Encounter - Jeffrey Uriarte OSA - 04/26/2023 9:06 AM EST Patient needs ED Follow-up. Did patient decline to see other providers in their home clinic? : NO If New Patient - Were surrounding clinics offered? N/A Please see call details. [phone] documented in this encounter Plan of Treatment Upcoming Encounters Date Type Department Care Team (Late st Contact Info) Description 05/04/2023 11:00 AM EST Office Visit [facility] [address] [place] [address] Vitor Esqueda III, MD [address] [place] [address] 05/18/2023 10:20 AM EST Office Visit [facility] [address] [place] [address] Delmy Jacobsen PA-C [address] [place] [address] 09/09/2023 11:20 AM EDT Office Visit [facility] [address] [place] [address] Delmy Jacobsen PA-C [address] [place] [address] 02/15/2024 8:40 AM EDT Office Visit [facility] [address] [place] [address] [address] Delmy Jacobsen PA-C [address] [place] [address] Health Maintenance Due Date Last Done Comments HPV/Co-Test 1992 Cologuard 2007 Fecal Occult Blood Test 2007 Sigmoidoscopy 2007 Diabetic Eye Exam 07/30/2022 07/30/2021, , 06/07/2017, Additional history exists COVID-19 Vaccine ( season) 2023 03/11/2022, 09/18/2021, 04/01/2021, Additional history exists Depression Screening 03/09/2023 03/09/2022, 02/14/2015 (Discussed) *BISPHONATE OR OTHER ACCEPTABLE MEDICATION NEEDED FOR OSTEOPOROSIS (REFER TO SMARTSET #1146) 03/13/2023 Cervical Cancer Screening 06/04/2023 Pap Smear 06/04/2023 06/04/2020, 05/17, 03/04/2017, Additional history exists Albumin/Creatinine Ratio 08/22/2023 023, 07/15/2021, 10/20/2019, Additional history exists HbA1c 08/26/2023 02/24/2023, 05/17, 02/26/2022, Additional history exists B-12 10/24/2023 10/23/2022, 04/0 11/2022, 03/12/2021, Additional history exists GFR 01/20/2024 01/19/2023, 11/14, 11/23/2022, Additional history exists Mammogram 01/22/2024 01/21/2023, 09/0 10/2021, 01/13/2021, Additional history exists Diabetic Foot Exam 03/10/2024 03/10/2023, 0 11/06/2021, 03/11/2020, Additional history exists DXA Scan 04/06/2025 04/06/2023 Lipid Panel 02/25/2028 02/24/2023, 12/15, 10/20/2019, Additional history exists DTaP,Tdap,and Td Vaccines (3 - Td or Tdap) 03/08/2029 03/08/2019, 09/23/2009, 02/17/1999, Additional history exists Colonoscopy 02/03/2033 02/03/2023, 01/16, 08/29/2013, Additional history exists Colorectal Cancer Screening 02/03/2033 Hepatitis B Completed 09/10/2014, 02/15, 02/06/2014 Zoster Vaccines Completed 04/30/2020, 08/2019, 11/09/2019 Pneumococcal Vaccine: Pediatrics (0 to 5 Years) and At-Risk Patients (6 to 64 Years) Completed 03/09/2022, 09/16/2005 VITAMIN D LEVEL ONCE IN A LIFETIME-USE SMARTSET# [id number] Completed 10/23/2022, 07/23/2022 Influenza Vaccine (FLU shot) Completed , 02/04/2022, 01/21/2021, Additional history exists GARDASIL-HPV IMMUNIZATION SERIES Aged Out No longer eligible based on patient's age to complete this topic MENINGOCOCCAL (MENACTRA/MENVEO) Aged Out No longer eligible based on patient's age to complete this topic documented as of this encounter Medical Devices Not on filedocumented as of this encounter Care Teams Pensionholder Information Clerk Relationship Specialty Start Date End Date Vitor Esqueda III, MD [address] [place] [address] PCP - General Family Medicine 07/20/18 documented as of this encounter
--- OUTSIDE RECORDS SUMMARY | 2023-05-17 08:40 | External Medical Summary | Summary of Care ---
Author Name Unknown Organization [facility] Address [address] [place] [address] Phone [phone] Care Team Providers Care Superintendent Plant Protection Name Role Phone Dheeraj NORWOOD MD, Vitor Baird Primary Care Provider Encounter Details Date Type Department Care Team (Late st Contact Info) Description 05/04/2023 11:00 AM EST Office Visit [facility] [address] [place] [address] Vitor Esqueda III, MD [address] [place] [address] Laceration of scalp, subsequent encounter*; Closed head injury, subsequent encounter; Bilateral impacted cerumen Allergies Active Allergy Reactions Criticality Noted Date Comments Aspirin 08/05/2016 Depakote Er Unknown 09/12/2007 Salicylates Unknown 10/30/2003 aspirin documented as of this encounter (statuses as of 05/04/2023) Medications Medication Sig Dispensed Refills Start Date End Date Status LEVETIRACETAM 250 MG PO TABS 1 tab twwice daily 0 Active Blood Glucose Monitoring Suppl (new test company ULTRA SYSTEM) W/DEVICE KITIndications:Type 2 diabetes mellitus with hemoglobin A1c goal of less than 7.0% ([facility]) Use as directed 4 times a day [...] hemoglobin A1c goal of less than 7.0% ([facility]) TEST BLOOD SUGAR before breakfast and supper [...] as of this encounter (statuses as of 05/04/2023) Active Problems Problem Noted Date Diagnosed Date [...] as of this encounter (statuses as of 05/04/2023) Resolved Problems Problem Noted Date Diagnosed Date Resolved Date Constipation 09/10/2012 03/07/2018 Overview: ICD-10 update of inactive term ACTIVE CASE MANAGEMENT Keke Solis RN [phone] 01/25/2008 03/03/2010 Type 2 diabetes mellitus wit h hemoglobin A1c goal of less than 7.0% 10/30/2003 03/14/2009 Overview: Per Diabetes Taxonomy. ICD-10 update of inactive term Intellectual disability 10/30/200302/15 Overview: ICD-10 update of inactive term DM type 2, not at goal 10/30/200309/11 Psychotic disorder 10/30/2003 0 documented as of this encounter (statuses as of 05/04/2023) Immunizations Name Administration Dates Next Due COVID-19 mRNA, LNP-s, No Pre serve, 2-Dose Series (Moderna) 07/10/2020,06/12/2020 COVID-19, mRNA, LNP-s, PF, B ooster, 100mcg/0.5mg (Moderna) 09/18/2021,04/01/2021 Covid-19, Mrna, Lnp-s, Pf, B ivalent, 50 Mcg, IM, 12 yrs and above (Moderna) 03/11/2022 Hepatitis B, 20+ yrs 09/10/2014,03/08/2014,02/06 PPD 03/09/2022, 0,03/08/2019,03/04,02/14/2015,01/31/2013,01/25/2012 ,03/26/2010,09/21/2008 Pneumococcal Conjugate Vacci ne, 20-valent ([id number]) 03/09/2022 Pneumococcal Polysaccharide PPV23 (Pneumovax) 09/16/2005 Seasonal [...] on file documented as of this encounter Last Filed Vital Signs Vital Sign Reading Time Taken Comments Blood Pressure 100/64 05/04/2023 11:06 AM EST Pulse 94 05/04/2023 11:06 AM EST Temperature 36.2 C (97.2 F) 05/04/2023 11:[address] Respiratory Rate 16 05/04/2023 11:06 AM EST Oxygen Saturation - - Inhaled Oxygen Concentration - - Weight 54 kg (119 lb) 05/04/2023 11:06 AM EST Height - - Body Mass Index 19.21 01/28/2023 9:20 AM EDT documented in this encounter Progress Notes * Vitor Esqueda III, MD - 05/04/2023 11:25 AM EST Subjective: Brittany Oneill is a 62 year old female. No chief complaint on file. HPI: fell backwards hit laceration seen in emergency department April 25 those notes are reviewed appears to be back to baseline no unusual drainage from nose throat eating nausea or vomiting uses walker still with balance issues but no worse per accompanying costing analyst PMH: Patient Active Problem List Diagnosis Code PARANOID SCHIZO-CHRONIC F20.0 OTHER URINARY INCONTINENCE N39.498 Mild intellectual disability F70 Convulsions ([facility]) R56.9 Other specified types of schizophrenia, chronic condition F20.89 Type 2 diabetes mellitus with hemoglobin A1c goal of less than 7.0% ([facility]) E11.9 Choking due to food (regurgitated), initial encounter T17.320A, W44.F3XA Herpes dermatitis B00.89 Seizure disorder, simple partial, 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 epilepsy ([facility]) G40.109 Age-related osteoporosis without current pathological fracture M81.0 Current Outpatient Medications Medication Sig Dispense Refill LEVETIRACETAM 250 MG PO TABS 1 tab twwice daily Blood Glucose Monitoring Suppl (new test company ULTRA SYSTEM) W/DEVICE KIT Use as directed 4 times a day as needed for Hyperglycemia (high sugar) or Hypoglycemia (low sugar). f E11.9 1 Kit 0 MEDICAL INSTRUCTIONS Check glucose daily before supper. May skip on days of outings. May check if signs or symptoms of low blood sugar. (may refer to handout) 1 Each 1 cloZAPine 200 MG Oral Tablet 3 tabs at night 90 Tablet 5 Depend Pant Sm/Med As needed 140 Each 11 Depend Pant Large As needed 144 Each 6 Triamcinolone Acetonide 0.1 % External Cream (Aristocort) Apply topically to affected area 2 times a day as needed for Other (rash). To affected area. 15 g 5 Phenytoin Sodium Extended 100 MG Oral Capsule (Dilantin) Take 2 Capsules by mouth in the morning and 2 Capsules before bedtime. Empagliflozin 25 MG Oral Tablet (Jardiance) Take 1 Tablet by mouth in the morning. 90 Tablet 2 Boost 100 Calorie Smart Oral Liquid DAILY IN THE MORNING Famotidine 40 MG Oral Tablet (Pepcid) Take 1 Tablet by mouth at bedtime. 30 Tablet 11 Glimepiride 1 MG Oral Tablet (Amaryl) Take one tablet daily in addition to Glimepiride 2mg if bloodsugar is greater than 300. 30 Tablet 5 Ammonium Lactate 12 % External Cream (Lac-Hydrin) Apply to feet once daily 385 g 3 One-A-Day Womens Oral Tablet TAKE 1 TABLET BY MOUTH ONCE DAILY (DX: FOR GENERAL HEALTH) 30 Tablet 11 valACYclovir HCl 500 MG Oral Tablet (Valtrex) Take 1 Tablet by mouth in the morning. 30 Tablet 11 Super B Complex/Vitamin C Oral Tablet Take 1 Tablet by mouth in the morning. 30 Tablet 0 OneTouch Ultra In Vitro Strip (Glucose Blood) TEST BLOOD SUGAR before breakfast and supper FOR DIABETES 200 Strip 2 Fluticasone Propionate 50 MCG/ACT Nasal Suspension (Flonase) INSTILL 2 SPRAYS INTO EACH NOSTRIL ONCE DAILY FOR ALLERGIES 16 g 5 Polyethylene Glycol 3350 17 GM/SCOOP Oral Powder (Miralax) MIX 1 CAPFUL (17GM) WITH 8OZ OF FLUID AND DRINK Twice DAILY FOR CONSTIPATION HOLD FOR LOOSE STOOLS OR DIARRHEA 476 g 5 Calcium Citrate-Vitamin D 200-3.125 MG-MCG Oral Tablet Take 2 Tablets by mouth in the morning. Accu-Chek Safe-T Pro Lancets USE TO TEST BLOOD SUGAR twice DAILY FOR DM 200 Each 1 metFORMIN HCl ER 500 MG Oral Tablet Extended Release 24 Hour (Glucophage XR) TAKE 2 TABLETS (1000MG) BY MOUTH TWICE DAILY FOR DIABETES TO BE BUBBLE PACKED. 124 Tablet 11 Atorvastatin Calcium 40 MG Oral Tablet (Lipitor) TAKE 1 TABLET BY MOUTH AT BEDTIME (DX: FOR CHOLESTEROL) 31 Tablet 11 Docusate Sodium 100 MG Oral Capsule (Colace) TAKE 1 CAPSULE BY MOUTH TWICE DAILY (DX: CONSTIPATION)62 Capsule 11 Glimepiride 2 MG Oral Tablet (Amaryl) TAKE 1 TABLET BY MOUTH ONCE DAILY WITH FIRST MAIN MEAL OF THEDAY (DX: DIABETES) 31 Tablet 11 No current facility-administered medications for this visit. Review of patient's allergies indicates: Allergen Reactions Aspirin Depakote [Depakote Er] Unknown Salicylates Unknown aspirin Past Medical History: Diagnosis Date Age-related osteoporosis without current pathological fracture 03/10/2023 Allergic rhinitis Choking due to food (regurgitated), initial encounter 03/22/2018 Constipation, chronic Convulsions (HCC) DM type 2, goal A1c below 7 03/14/2009 Per Diabetes Taxonomy. Mild intellectual disabilities Other specified types of schizophrenia, chronic condition Other urinary incontinence Past Surgical History: Procedure Laterality Date COLONOSCOPY, DIAGNOSTIC (RECTUM) 08/29/2013 normal, repeat 10 yrs / COLONOSCOPY FLEXIBLE PROXIMAL DIAGNOSTIC performed by Ryan Sauceda MD at [facility] COLONOSCOPY, DIAGNOSTIC (RECTUM) 02/03/2023 COLONOSCOPY FLEXIBLE PROXIMAL DIAGNOSTIC performed by Lilo Smith DO at [facility] DIABETIC EYE EXAM 06/21/2006 [place]ac[place] suspect, large optic cups DIABETIC EYE EXAM 07/11/2009 no diabetic retinopathy EGD, FLEXIBLE, DIAGNOSTIC 08/19/2021 normal / ESOPHAGOGASTRODUODENOSCOPY (EGD), FLEXIBLE, TRANSORAL, DIAGNOSTIC performed by Lilo Smith DO at [facility] EGD, FLEXIBLE, DIAGNOSTIC 02/03/2023 ESOPHAGOGASTRODUODENOSCOPY (EGD), FLEXIBLE, TRANSORAL, DIAGNOSTIC performed by Lilo Smith DO at [facility] BUSINESS CONTINUITY GLOBAL DIRECTOR PAP SCREEN 10/15/2004 die setter exam at family planning INFORMATION 05/17/2005 Glaucoma suspect ou/no diabetic retinopathy, ptosis, bilateral MAMMOGRAM - BILATERAL 09/28/2006 benign findings, yearly mammograms appropriate, birad code 2 MAMMOGRAM SCREENING-BILATERAL 02/03/2005 normal Objective: The patient is a 62 year old female BP 100/64 | Pulse 94 | Temp 36.2 C (97.2 F) | Resp 16 | Wt 54 kg (119 lb) | LMP 09/30/2011 | BMI 19.21 kg/m | BSA 1.59 m General: alert, healthy, and no distress Eye Exam: PERRLA, extraocular movements intact, conjunctiva are pink and non- injected, sclera clear Ears: External ears normal, bilateral cerumen impactions Oropharynx: no exudate, no erythema, lips, buccal mucosa, and tongue normal, and mucous membranes are moist ASSESSMENT: S01.01XD Laceration of scalp, subsequent encounter (primary encounter diagnosis) S09.90XD Closed head injury, subsequent encounter PLAN: [place] removed x6 bacitracin twice daily to suture removal area till healed Follow up as needed. Vitor Esqueda III, MD * Tseo, Adalgisa P, RN - 05/04/2023 11:06 AM EST Pt fell backwards and hit head on cabinet. documented in this encounter Plan of Treatment Upcoming Encounters Date Type Department Care Team (Late st Contact Info) Description 05/18/2023 10:20 AM EST Office Visit [facility] [address] [facility] [place] [address] Delmy Jaocbsen PA-C [address] [facility] [place] [address] 09/09/2023 11:20 AM EDT Office Visit [facility] [address] [facility] [place] [address] Delmy Jacobsen PA-C [address] [facility] [place] [address] 02/15/2024 8:40 AM EDT Office Visit [facility] [address] [facility] [place] [address] Delmy Jacobsen PA-C [address] [place] [address] Scheduled Orders Name Type Priority Associated Diagnoses Orde r Schedule SUTURE REMOVAL-BY OTHER PROVIDER Procedures Routine Laceration of scalp, subsequent encounter Ordered: 05/04/2023 Health Maintenance Due Date Last Done Comments [...] 02/26/2022, Additional history exists B-12 10/24/2023 10/23/2022, 11/2022, 03/12/2021, Additional history exists GFR 01/20/2024 01/19/2023, 11/14, 11/23/2022, Additional history exists Mammogram 01/22/2024 01/21/2023, 0910/2021, 01/13/2021, Additional history exists Diabetic Foot Exam [...] D LEVEL ONCE IN A LIFETIME-USE SMARTSET# [id number] Completed 10/23/2022, 07/23/2022 Influenza Vaccine (FLU shot) Completed , 02/04/2022, 01/21/2021, Additional history exists GARDASIL-HPV IMMUNIZATION SERIES Aged Out No longer eligible based on patient's age to complete this topic MENINGOCOCCAL (MENACTRA/MENVEO) Aged Out No longer eligible based on patient's age to complete this topic documented as of this encounter Medical Devices Not on filedocumented as of this encounter Visit Diagnoses Diagnosis Laceration of scalp, subsequent encounter- Primary Closed head injury, subsequent encounter Bilateral impacted cerumen Impacted cerumen documented in this encounter Care Teams Superintendent Plant Protection Relationship Specialty Start Date End Date Vitor Esqueda III, MD [address] [facility] [place] [address] PCP - General Family Medicine 07/20/18 documented as of this encounter"
--- NOTE | 2023-05-17 08:52 | Emergency Department Note ---
History of Present Illness General Chief complaint: Illness Stated complaint: ALOC Time Seen by Provider: 05/17/23 08:37 Source: patient, EMS, RN notes reviewed and old records reviewed (I have reviewed a H&P and discharge summary from her last in patient stay February 2023) Mode of arrival: EMS Limitations: other (Baseline medical and psychiatric) History of Present Illness This patient is a 62-year-old female who was brought in from [facility] after concern that she was potentially leaning to the left and seemed a little less responsive. She does have a history of both medical and psychiatric illnesses. I did talk to the electron microscopist and he felt that she was baseline he is transported her before she had no reported fall no fever she had stable vital signs. She voices no complaints. He did a [place] stroke scale on route and it was negative. Home Medications Medication Instructions Recorded Confirmed Type atorvastatin 40 mg tablet 40 mg PO HS 07/17/18 05/17/23 History glimepiride 2 mg tablet 2 mg PO QAM 07/17/18 05/17/23 History metformin 500 mg tablet,extended 1,000 mg PO BID 07/17/18 05/17/23 History release 24 hr multivit-iron 18 mg-folic acid 400 1 tab PO QAM 07/17/18 05/17/23 History mcg-calcium 500 mg-minerals tablet (Women's One Daily) vitamin B complex 1 tab PO QAM 08/25/18 05/17/23 History fluticasone propionate 50 2 sprays intranasal QPM 02/15/19 05/17/23 History mcg/actuation nasal spray,suspension ammonium lactate 12 % topical cream 1 applic topical QAM 05/21/19 05/17/23 History docusate sodium 100 mg capsule 100 mg PO BID 05/21/19 05/17/23 History (Colace) triamcinolone acetonide 0.1 % 1 applic topical BID PRN Rash 07/10/21 05/17/23 History topical cream famotidine 20 mg tablet 20 mg PO DAILY 08/25/21 05/17/23 History clozapine 200 mg tablet 600 mg PO HS 10/31/21 05/17/23 History valacyclovir 500 mg tablet 500 mg PO DAILY 02/18/22 05/17/23 History food supplemt, lactose-reduced 1 ea PO QAM 10/14/22 05/17/23 History glimepiride 1 mg tablet 1 mg PO DIRECTED PRN BSG >300. 10/14/22 05/17/23 History levetiracetam 250 mg tablet 250 mg PO BID 90 days #180 tabs 10/15/22 05/17/23 Rx (Keppra) empagliflozin 10 mg tablet 25 mg PO DAILY 10/19/22 05/17/23 History (Jardiance) polyethylene glycol 3350 17 gram 17 g PO BID 10/19/22 05/17/23 History oral powder packet (Miralax) acetaminophen 500 mg tablet 1,000 mg (2 x 500 mg) PO Q8H #30 11/15/22 05/17/23 Rx (Tylenol Extra Strength) tabs phenytoin sodium extended 100 mg 200 mg (2 x 100 mg) PO BID 90 days 12/14/22 05/17/23 Rx capsule (Dilantin Extended) #360 caps Calcium Citrate + D 200 - 315 mcg PO DAILY 02/11/23 05/17/23 History L.acidop,casei,lactis,rham-B.lact,kevin 2 cap PO DAILY #10 caps 03/03/23 05/17/23 Rx 625 mg (10 billion cell) capsule (Advanced Probiotic) albuterol sulfate 90 mcg/actuation 2 puff inhalation QIDR PRN 03/03/23 05/17/23 Rx aerosol inhaler (Ventolin HFA) shortness of breath or wheezing #6.7 grams dextromethorphan-guaifenesin 5 10 ml PO Q6H PRN cough #118 mL 03/03/23 05/17/23 Rx mg-100 mg/5 mL oral liquid (Robitussin Cough-Chest Congestion DM) Allergies Allergy/AdvReac Type Severity Reaction Status Date / Time divalproex sodium Allergy Unknown Unknown Verified 02/11/23 12:10 [From Depakote] salicylates Allergy Unknown Unknown Verified 02/11/23 12:10 valproic acid Allergy Unknown Unknown Verified 02/11/23 12:10 aspirin AdvReac Severe STOMACH Verified 02/11/23 12:10 ULCER BLEEDING Past Med/Surg History Medical History DMII (diabetes mellitus, type 2) HSV (herpes simplex virus) anogenital infection Complex partial seizure Depression with anxiety Heart murmur Onychomycosis Hypertension Schizophrenia Surgical History History of colonoscopy Family History Mother Diabetes Other Seizures Social History Smoking Status: Unknown if ever smoked Hx Alcohol Use: No Hx Substance Use: No Preferred Language: Upper Sorbian Communication Ability: Impaired Communication Ability Comment: Intellectual Disability Visual Impairment: No Limitations Hearing Ability: Normal Life Insurance Actuary Required: No Beliefs That Will Affect Care: None marital status: Single Current Living Situation: Personal Care Facility current occupational status: disabled Feels Safe at Home: Yes Assistive Devices: Walker Review of Systems A total of 10 systems reviewed and were otherwise negative Physical Exam Vital Signs Vital Signs - 24 hr 05/17/23 08:45 05/17/23 08:49 05/17/23 08:49 Temperature 36.9 C Temperature Source Oral Pulse Rate 90 90 Pulse Rate [Apical] Respiratory Rate 18 Blood Pressure 125/75 Blood Pressure [Left Arm] Blood Pressure Mean 91 Blood Pressure Mean [Left Arm] Pulse Oximetry 95 95 Oxygen Delivery Method Room Air Room Air Sepsis Recent Fever Within 48 Hours No Sepsis New/Unexplained Change in Mental Status No Sepsis Action Taken by Nursing No Action Required 05/17/23 10:31 05/17/23 12:47 Temperature Temperature Source Pulse Rate 79 Pulse Rate [Apical] 85 Respiratory Rate 18 Blood Pressure Blood Pressure [Left Arm] 117/73 Blood Pressure Mean Blood Pressure Mean [Left Arm] 87 Pulse Oximetry 96 Oxygen Delivery Method Room Air Sepsis Recent Fever Within 48 Hours Sepsis New/Unexplained Change in Mental Status Sepsis Action Taken by Nursing General: Well developed well nourished middle-age female who is sitting in bed with her eyes open. She is no acute distress, breathing comfortably on room air. Normal speech when she talks. She knows her name and she does answer some questions. She does speak somewhat slowly but not slurred. She does follow all commands. She has no tremor HEENT: Normal cephalic atraumatic. Pupils are equal round and reactive to light. Extraocular movements are intact. Oropharynx is pink with moist mucous membranes. No swelling of the mouth lips or tongue. Neck: Supple with a midline trachea. No meningeal signs or stiffness, no JVD or bruits. No Stridor. Chest: Clear to auscultation bilaterally. No wheezes or rhonchi. No increased work of breathing. Heart: Regular rate and rhythm without murmurs or gallops. Abdomen: Soft nontender, nondistended without rebound guarding or rigidity. Extremities: No cyanosis clubbing or edema. No calf tenderness or assymetry Spine/Back. Non tender to palpation. No CVA tenderness Skin: Good turgor without rashes. Neurologic exam: Cranial nerves two through 12 are intact. Motor and sensation are intact and symmetrical throughout. No tremor. I had her ambulate she shuffles her feet and normally walks with a walker she does not appear to be leaning or weak to 1 side or the other. No ataxia Course Administered Medications Discontinued Medications Sodium Chloride (Nss) 500 mls @ 999 mls/hr IV .Q31M ONE Stop: 05/17/23 10:41 Last Infusion: 05/17/23 14:01 Dose: Infused Documented By: Admin: 05/17/23 10:31 Dose: 999 mls/hr Documented By: GRECIA Ceftriaxone Sodium 2,000 mg/ (Dextrose) 50 mls @ 100 mls/hr IV NOW STA; Protocol Stop: 05/17/23 13:02 Last Infusion: 05/17/23 14:01 Dose: Infused Documented By: Admin: 05/17/23 13:15 Dose: 100 mls/hr Documented By: ERIS Medical Decision Making Differential Diagnosis Altered mental status, sepsis, neurologic process, toxicologic, metabolic, electrolyte, cardiac disease Medical Records Attestation: I reviewed the patient's medical records. Home Medications Current Medication List: was personally reviewed by ks Laboratory Data Attestation: I reviewed the patient's lab results. 05/17/23 09:38 05/17/23 09:38 Lab Results 05/17/23 05/17/23 05/17/23 Range/Units 09:38 10:06 10:45 WBC 8.50 (4.8-10.8) K/ul RBC 4.70 (4.20-5.40) M/uL Hgb 14.8 (12.0-16.0) g/dl Hct 44.2 (37.0-47.0) % MCV 94.0 (80.0-100.0) fL MCH 31.5 (25.0-34.0) pg MCHC 33.5 (32.0-36.0) g/dL RDW Std Deviation 52.6 H (36.4-46.3) fL RDW Coeff of Liliana 15.1 H (11.5-14.5) % Plt Count 150 (130-400) K/uL MPV 11.3 (9.4-12.4) fL Immature Gran % (Auto) 0.5 % Neut % (Auto) 81.1 % Lymph % (Auto) 10.7 % [place] % (Auto) 7.5 % Eos % (Auto) 0.0 % Baso % (Auto) 0.2 % Neut # (Auto) 6.89 H (1.40-6.50) K/uL Lymph # (Auto) 0.91 L (1.20-3.40) K/uL [place] # (Auto) 0.64 H (0.11-0.59) K/uL Eos # (Auto) 0.00 (0.00-0.50) K/uL Baso # (Auto) 0.02 (0.00-0.20) K/uL Immature Gran # (Auto) 0.04 (0.01-0.20) K/uL Sodium 140 (136-145) mmol/L Potassium 4.1 (3.5-5.1) mmol/L Chloride 105 (98-107) mmol/L Carbon Dioxide 27 (21-32) mmol/L Anion Gap 8 (3-11) BUN 23 (6-23) mg/dl Creatinine 0.71 (0.6-1.2) mg/dl Est Cr Clr Drug Dosing 73.4 ml/min Est GFR ( Amer) 107.3 ml/min Est GFR (Non-Af Amer) 92.6 ml/min BUN/Creatinine Ratio 32.4 H (10-20) Glucose 175 H (70-99(Fasting)) mg/dl Lactate 3.0 H* (0.4-2.0) mmol/L Calcium 9.0 (8.6-10.3) mg/dl Magnesium 1.9 (1.7-2.4) mg/dl Total Bilirubin 0.2 (0.2-1.0) mg/dl Direct Bilirubin 0.1 (0-0.2) mg/dl AST 23 (13-39) U/L ALT 36 (7-52) U/L Alkaline Phosphatase 89 (34-104) U/L Troponin I High Sens 2.6 (0-14) pg/ml Total Protein 6.3 (6.0-8.3) gm/dl Albumin 3.9 (3.4-5.0) gm/dl Procalcitonin < 0.05 (0-0.5) ng/ml Urine Color Yellow Urine Appearance Clear (Clear) Urine pH 7.0 (4.5-7.5) Ur Specific [place] 1.018 (1.000-1.030) Urine Protein Negative (Negative) Urine Glucose (UA) 3+ H (Negative) Urine Ketones Negative (Negative) Urine Blood Negative (Negative) Urine Nitrite Negative (Negative) Urine Bilirubin Negative (Negative) Urine Urobilinogen Negative (Negative) Ur Leukocyte Esterase Negative (Negative) Phenytoin 4.8 L (10-20) mcg/ml Adenovirus (PCR) (NotDetected) B. pertussis DNA (PCR) (NotDetected) B.parapertussis DNA PCR (NotDetected) C. pneumoniae DNA (PCR) (NotDetected) Coronavirus OC43 (PCR) (NotDetected) Coronavirus HKU1 (PCR) (NotDetected) Coronavirus 229E (PCR) (NotDetected) SARS-CoV-2 (PCR) NEGATIVE (Negative) Coronavirus NL63 (PCR) (NotDetected) Human Metapneumovir PCR (NotDetected) Influenza Type A (PCR) Negative (Neg) Influenza Type B (PCR) Negative (Neg) M. pneumoniae (PCR) (NotDetected) Parainfluenza 1 (PCR) (NotDetected) Parainfluenza 2 (PCR) (NotDetected) Parainfluenza 3 (PCR) (NotDetected) Parainfluenza 4 (PCR) (NotDetected) RSV (RT-PCR) Negative (Neg) RSV (PCR) (NotDetected) Entero/Rhino (PCR) (NotDetected) 05/17/23 05/17/23 Range/Units 11:54 12:32 WBC (4.8-10.8) K/ul RBC (4.20-5.40) M/uL Hgb (12.0-16.0) g/dl Hct (37.0-47.0) % MCV (80.0-100.0) fL MCH (25.0-34.0) pg MCHC (32.0-36.0) g/dL RDW Std Deviation (36.4-46.3) fL RDW Coeff of Liliana (11.5-14.5) % Plt Count (130-400) K/uL MPV (9.4-12.4) fL Immature Gran % (Auto) % Neut % (Auto) % Lymph % (Auto) % [place] % (Auto) % Eos % (Auto) % Baso % (Auto) % Neut # (Auto) (1.40-6.50) K/uL Lymph # (Auto) (1.20-3.40) K/uL [place] # (Auto) (0.11-0.59) K/uL Eos # (Auto) (0.00-0.50) K/uL Baso # (Auto) (0.00-0.20) K/uL Immature Gran # (Auto) (0.01-0.20) K/uL Sodium (136-145) mmol/L Potassium (3.5-5.1) mmol/L Chloride (98-107) mmol/L Carbon Dioxide (21-32) mmol/L Anion Gap (3-11) BUN (6-23) mg/dl Creatinine (0.6-1.2) mg/dl Est Cr Clr Drug Dosing ml/min Est GFR ( Amer) ml/min Est GFR (Non-Af Amer) ml/min BUN/Creatinine Ratio (10-20) Glucose (70-99(Fasting)) mg/dl Lactate 1.9 (0.4-2.0) mmol/L Calcium (8.6-10.3) mg/dl Magnesium (1.7-2.4) mg/dl Total Bilirubin (0.2-1.0) mg/dl Direct Bilirubin (0-0.2) mg/dl AST (13-39) U/L ALT (7-52) U/L Alkaline Phosphatase (34-104) U/L Troponin I High Sens (0-14) pg/ml Total Protein (6.0-8.3) gm/dl Albumin (3.4-5.0) gm/dl Procalcitonin (0-0.5) ng/ml Urine Color Urine Appearance (Clear) Urine pH (4.5-7.5) Ur Specific [place] (1.000-1.030) Urine Protein (Negative) Urine Glucose (UA) (Negative) Urine Ketones (Negative) Urine Blood (Negative) Urine Nitrite (Negative) Urine Bilirubin (Negative) Urine Urobilinogen (Negative) Ur Leukocyte Esterase (Negative) Phenytoin (10-20) mcg/ml Adenovirus (PCR) Not Detected (NotDetected) B. pertussis DNA (PCR) Not Detected (NotDetected) B.parapertussis DNA PCR Not Detected (NotDetected) C. pneumoniae DNA (PCR) Not Detected (NotDetected) Coronavirus OC43 (PCR) Not Detected (NotDetected) Coronavirus HKU1 (PCR) Not Detected (NotDetected) Coronavirus 229E (PCR) Not Detected (NotDetected) SARS-CoV-2 (PCR) Not Detected (Negative) Coronavirus NL63 (PCR) Not Detected (NotDetected) Human Metapneumovir PCR Not Detected (NotDetected) Influenza Type A (PCR) Not Detected (Neg) Influenza Type B (PCR) Not Detected (Neg) M. pneumoniae (PCR) Not Detected (NotDetected) Parainfluenza 1 (PCR) Not Detected (NotDetected) Parainfluenza 2 (PCR) Not Detected (NotDetected) Parainfluenza 3 (PCR) Not Detected (NotDetected) Parainfluenza 4 (PCR) Not Detected (NotDetected) RSV (RT-PCR) (Neg) RSV (PCR) Not Detected (NotDetected) Entero/Rhino (PCR) Not Detected (NotDetected) Imaging Data Attestation: I personally reviewed and interpreted this imaging study as follows: My Impression: Chest x-rayno acute infiltrate, failure, pneumothorax seen upon my independent evaluation Head CTno acute hemorrhage or mass effect seen Radiologist's Impression: Chest X-Ray 05/17/23 08:45 XR chest 1V portable CLINICAL HISTORY: Sepsis COMPARISON STUDY: Chest radiograph February 25, 2023. FINDINGS: Mild elevation of the left hemidiaphragm is unchanged. Lungs are clear. There is no pneumothorax or pleural effusion. Cardiac size is normal. Mediastinal contours are normal. Subtle interstitial thickening is unchanged and likely chronic. IMPRESSION: No acute cardiopulmonary findings. No significant change in appearance of the chest. ACT 112: Negative or not required by law. Electronically signed by: Jose Srinivasan M.D. 05/17/2023 9:[address] 05/17/23 08:46 CT OF THE HEAD WITHOUT CONTRAST CLINICAL HISTORY: Weakness. COMPARISON STUDY: MRI of the brain September 09, 2022. Head CT April 25, 2023. CT DOSE: 625.8 mGy.cm TECHNIQUE: Helical axial images of the head were obtained without IV contrast. Automated exposure control was utilized for the study. A dose lowering technique was utilized adhering to the principles of ALARA. FINDINGS: No acute intracranial hemorrhage, midline shift or mass effect is present. Ventricular dilatation is unchanged. The basal cisterns are patent. No extra-axial collections are present. There are no findings to suggest acute dural sinus thrombosis or acute territorial infarct. No significant calvarial abnormalities are present. Visualized portions of the sinuses and mastoid air cells are clear. IMPRESSION: 1. No acute intracranial findings. 2. No change in ventriculomegaly. ACT 112: Negative or not required by law. Electronically signed by: Jose Srinivasan M.D. 05/17/2023 11:25 AM ECG Data Attestation: I personally reviewed and interpreted this ECG as follows: Indication: + weakness Rate (beats per minute): 93 Rhythm: + normal sinus ECG Intervals/blocks: + Normal QRS, + Normal QT and + Normal UT ECG [place]: + Normal ECG ST segments: + Normal ST segments ECG Findings: no PACs or no PVCs Comparison ECG Date: from (02/25/23) Change: no significant change MDM Narrative This patient is a 62-year-old female who comes in with possible weakness or decreased level of consciousness. She seems to be at normal baseline now. She has a normal neurologic exam. I even had her ambulate and she seems to be at baseline for this. She was placed on a personnel monitor and B11. EKG was obtained and shows no ischemic changes or ectopy and no change compared to old. Multiple blood testing was obtained. Also order urinalysis and culture and a full sepsis type workup. Additionally ordered a CAT scan of her head. I ordered a phenytoin level as well. Head CT was unremarkable without any hemorrhage or mass effect. Phenytoin level was nontoxic. Her initial lactic acid was mildly elevated at 3 however when is rechecked after fluid resuscitation it cleared. She has no white count there is no obvious source of infection. Her urinalysis does not suggest infection. Chest x-ray does not suggest pneumonia. She has no significant electrolyte or metabolic abnormalities. I talked to her caregiver at length when he arrived he feels that she is still off compared to baseline he said that she was leaning to the left earlier and now has more of a cough. He feels that she is not as talkative and is alert as typical. In light of this , I did give her Rocephin 2 g IV after discussing the case with Alejandra, ED pharmacist, in consultation. I also have discussed the case [facility] and he is going to see her in the ER for admission/observation. Continuous cardiac monitoring: Orders placed in EMR for continuous cardiac monitoring call upon my evaluation patient to be in normal sinus rhythm rate of 90 Impression & Plan AMS (altered mental status), Weakness, Mental disability, Paranoid schizophrenia, Elevated lactic acid level Discharge Plan Visit Data Chief Complaint: Illness Stated Complaint: ALOC ED Provider: Hussein Cook Discharge Problem: AMS (altered mental status), Weakness, Mental disability, Paranoid schizophrenia, Elevated lactic acid level Prescriptions Prescriptions: No Action levetiracetam [Keppra] 250 mg tablet 250 mg PO BID 90 Days Qty: 180 3RF phenytoin sodium extended [Dilantin Extended] 100 mg capsule 200 mg PO BID 90 Days Qty: 360 3RF fluticasone propionate 50 mcg/actuation spray,suspension 2 sprays INTNAS QPM famotidine 20 mg tablet 20 mg PO DAILY Jardiance 10 mg tablet 25 mg PO DAILY atorvastatin 40 mg tablet 40 mg PO HS glimepiride 2 mg tablet 2 mg PO QAM metformin 500 mg tablet extended release 24 hr 1,000 mg PO BID Women's One Daily 18 mg iron-400 mcg-500 mg Ca Tablet 1 tab PO QAM vitamin B complex Tablet 1 tab PO QAM polyethylene glycol 3350 [Miralax] 17 gram powder in packet 17 g PO BID Rx Instructions: HOLD IF HAS DIARRHEA ammonium lactate 12 % cream 1 applic TOPICAL QAM Rx Instructions: Apply to feet. docusate sodium [Colace] 100 mg Capsule 100 mg PO BID clozapine 200 mg tablet 600 mg PO HS glimepiride 1 mg Tablet 1 mg PO DIRECTED PRN (Reason: BSG >300.) food supplemt, lactose-reduced Liquid 1 ea PO QAM Rx Instructions: IF DOESN'T TAKE WITH BREAKFAST, GIVE FOR LUNCH acetaminophen [Tylenol Extra Strength] 500 mg Tablet 1,000 mg PO Q8H Qty: 30 0RF triamcinolone acetonide 0.1 % cream 1 applic TOPICAL BID PRN (Reason: Rash) Rx Instructions: apply to right buttocks prn rash valacyclovir 500 mg Tablet 500 mg PO DAILY Calcium Citrate + D 200 - 315 mcg PO DAILY Rx Instructions: two tablets daily albuterol sulfate [Ventolin HFA] 90 mcg/actuation Hfa Aerosol Inhaler 2 puff inhalation QIDR PRN (Reason: shortness of breath or wheezing) Qty: 6.7 0RF Advanced Probiotic 625 mg (10 billion cell) Capsule 2 cap PO DAILY Qty: 10 0RF Robitussin Cough-Chest Samm DM 5-100 mg/5 mL Liquid 10 ml PO Q6H PRN (Reason: cough) Qty: 118 0RF Discharge Problem: AMS (altered mental status) Qualifiers: Altered mental status type: unspecified Qualified Code(s): R41.82 - Altered mental status, unspecified
--- NOTE | 2023-05-17 09:28 | XRay Report ---
XR chest 1V portable CLINICAL HISTORY: Sepsis COMPARISON STUDY: Chest radiograph February 25, 2023. FINDINGS: Mild elevation of the left hemidiaphragm is unchanged. Lungs are clear. There is no pneumot horax or pleural effusion. Cardiac size is normal. Mediastinal contours are normal. Subtle interstiti al thickening is unchanged and likely chronic. IMPRESSION: No acute cardiopulmonary findings. No significant change in appearance of the chest. ACT 112: Negative or not required by law. Electronically signed by: Jose Srinivasan M.D. 05/17/2023 9:26 AM
[2023-05-17 10:11] LABS: Basophils # (auto) 0.02 K/uL (0.00-0.20); Basophils % (auto) 0.2 %; Hematocrit (blood only) 44.2 % (37.0-47.0); Hemoglobin 14.8 g/dl (12.0-16.0); Immature Granulocytes # (auto) 0.04 K/uL (0.01-0.20); Immature Granulocytes % (auto) 0.5 %; Lymphocytes # (auto) 0.91 K/uL (1.20-3.40); Lymphocytes % (auto) 10.7 %; Mean Corpuscular Hemoglobin 31.5 pg (25.0-34.0); Mean Corpuscular Hgb Conc 33.5 g/dL (32.0-36.0); Mean Platelet Volume 11.3 fL (9.4-12.4); Monocytes # (auto) 0.64 K/uL (0.11-0.59); Monocytes % (auto) 7.5 %; Neutrophils # (auto) 6.89 K/uL (1.40-6.50); Neutrophils % (auto) 81.1 %; Platelet Count 150 K/uL (130-400); RDW Coefficient of Variation 15.1 % (11.5-14.5); RDW Standard Deviation 52.6 fL (36.4-46.3)
[2023-05-17] MEDS ORDERED: SODIUM CHLORIDE 0.9% 500 ML IV ONE (10:11)
[2023-05-17 10:25] LABS: Albumin Level 3.9 gm/dl (3.4-5.0); BUN Creatinine Ratio 32.4 (10-20); Bilirubin Direct 0.1 mg/dl (0-0.2); Bilirubin,Total 0.2 mg/dl (0.2-1.0); Creatinine Clr Calc Pharmacy 73.4 ml/min; Est GFR (African American) 107.3 ml/min; Est GFR (Non-African American) 92.6 ml/min; Magnesium 1.9 mg/dl (1.7-2.4); Potassium 4.1 mmol/L (3.5-5.1); Total Protein 6.3 gm/dl (6.0-8.3)
[2023-05-17 10:29] LABS: Appearance Urine Clear (Clear); Bilirubin Urine Negative (Negative); Blood Urine Negative (Negative); Color Urine Yellow; Glucose Urine UA 3+ (Negative); Ketones Urine Negative (Negative); Leukocyte Esterase Urine Negative (Negative); Nitrite Urine Negative (Negative); Protein Urine Negative (Negative); Specific Gravity Urine 1.018 (1.000-1.030); Urobilinogen Urine Negative (Negative)
[2023-05-17 10:31] LABS: Troponin I High Sensitivity 2.6 pg/ml (0-14)
--- NOTE | 2023-05-17 11:27 | CT Scan Report ---
CT OF THE HEAD WITHOUT CONTRAST CLINICAL HISTORY: Weakness. COMPARISON STUDY: MRI of the brain September 09, 2022. Head CT April 25, 2023. CT DOSE: 625.8 mGy.cm TECHNIQUE: Helical axial images of the head were obtained without IV contrast. Automated exposure con trol was utilized for the study. A dose lowering technique was utilized adhering to the principles o f ALARA. FINDINGS: No acute intracranial hemorrhage, midline shift or mass effect is present. Ventricular dila tation is unchanged. The basal cisterns are patent. No extra-axial collections are present. There are no findings to suggest acute dural sinus thrombosis or acute territorial infarct. No significant edilson varial abnormalities are present. Visualized portions of the sinuses and mastoid air cells are clear. IMPRESSION: 1. No acute intracranial findings. 2. No change in ventriculomegaly. ACT 112: Negative or not required by law. Electronically signed by: Jose Srinivasan M.D. 05/17/2023 11:25 AM
[2023-05-17 11:41] LABS: Influenza A virus by PCR Negative (Neg); Influenza B virus by PCR Negative (Neg); RSV by PCR Negative (Neg); SARS CoV2 RNA(COVID-19) Ceph NEGATIVE (Negative)
[2023-05-17] MEDS ORDERED: cefTRIAXone SODIUM 2,000 MG in DEXTROSE 5 % MINI-B 50 ML IV STA (12:33)
--- NOTE | 2023-05-17 12:52 | History & Physical Report ---
Date of Service May 17, 2023 Assessment & Plan (1) Elevated lactic acid level: Plan: Acute bronchitis Lactic acidosis Chest x-ray showed no signs of pneumonia Blood cultures pending Bio fire negative Normal procalcitonin Empirically started on doxycycline Lactic acidosis resolved with IV fluids Generalized weakness Patient presented with leaning towards left side per caregiver Concern for CVA --CT Head:No acute intracranial findings. No change in ventriculomegaly. Will obtain MRI brain, lipid panel for completeness No focal deficits on exam PT OT as able Fall precautions Schizophrenia Chronic, stable -Reports Auditory hallucinations at baseline -Continue clozapine 600mg QPM Complex Partial Seizures Chronic, stable -Follows Dr Marshall 01/22/2023, last seizure 2010 -continue Keppra 250mg BID and phenytoin 200 BID DM II Chronic, stable Hold Home PO meds -Continue Insulin per protocol Update HbA1c GERD Chronic, stable Continue famotidine 20mg HLD Chronic, stable Continue statin Herpes Dermatitis Chronic, stable Continue Valacyclovir 500mg BID Hypertension Previously on lisinopril Currently not on meds Monitor BP DVT Px: Lovenox SQ Code Status Full Code (2) Weakness: History of Present Illness Chief Complaint: Cough Primary Care Provider: Delmy Jacobsen PA-C Patient is a 62-year-old female with history of seizures, ambulatory dysfunction, cognitive dysfunction, schizophrenia, diabetes mellitus type 2 and other medical problems presents with history of cough associated with weakness and concern for stroke. Patient is a very poor historian due to cognitive issues. Most of the history is obtained from ER staff, caregiver at bedside and old records. Caregiver informs patient has been having dry cough since 1 day duration. Patient has chronic hallucinations at baseline. Patient was noted to be awake and leaning towards left side this morning while in bathroom. Currently during my encounter, patient mental status seem to be back to baseline. Patient was brought to ED for further evaluation as concern for stroke as per caregiver. No known history of trauma, syncopal, focal weakness. Denies any history of chest pain, dyspnea, dizziness, wheezing, hemoptysis, fever, chills, headache, numbness, change in vision, slurred speech, facial deformity, bowel/bladder incontinence, nausea, vomiting, abdominal pain, diarrhea, dysuria, hematuria, recent change in medications. Allergies Allergy/AdvReac Type Severity Reaction Status Date / Time divalproex sodium Allergy Unknown Unknown Verified 02/11/23 12:10 [[facility] salicylates Allergy Unknown Unknown Verified 02/11/23 12:10 valproic acid Allergy Unknown Unknown Verified 02/11/23 12:10 aspirin AdvReac Severe STOMACH Verified 02/11/23 12:10 ULCER BLEEDING Home Medications Medication Instructions Recorded Confirmed Type atorvastatin 40 mg tablet 40 mg PO HS 07/17/18 05/17/23 History glimepiride 2 mg tablet 2 mg PO QAM 07/17/18 05/17/23 History metformin 500 mg tablet,extended 1,000 mg PO BID 07/17/18 05/17/23 History release 24 hr multivit-iron 18 mg-folic acid 400 1 tab PO QAM 07/17/18 05/17/23 History mcg-calcium 500 mg-minerals tablet (Women's One Daily) vitamin B complex 1 tab PO QAM 08/25/18 05/17/23 History fluticasone propionate 50 2 sprays intranasal QPM 02/15/19 05/17/23 History mcg/actuation nasal spray,suspension ammonium lactate 12 % topical cream 1 applic topical QA 05/21/19 05/17/23 History docusate sodium 100 mg capsule 100 mg PO BID 05/21/19 05/17/23 History (Colace) triamcinolone acetonide 0.1 % 1 applic topical BID PRN Rash 07/10/21 05/17/23 History topical cream famotidine 20 mg tablet 20 mg PO DAILY 08/25/21 05/17/23 History clozapine 200 mg tablet 600 mg PO HS 10/31/21 05/17/23 History valacyclovir 500 mg tablet 500 mg PO DAILY 02/18/22 05/17/23 History food supplemt, lactose-reduced 1 ea PO QAM 10/14/22 05/17/23 History glimepiride 1 mg tablet 1 mg PO DIRECTED PRN BSG >300. 10/14/22 05/17/23 History levetiracetam 250 mg tablet 250 mg PO BID 90 days #180 tabs 10/15/22 05/17/23 Rx (Keppra) empagliflozin 10 mg tablet 25 mg PO DAILY 10/19/22 05/17/23 History (Jardiance) polyethylene glycol 3350 17 gram 17 g PO BID 10/19/22 05/17/23 History oral powder packet (Miralax) acetaminophen 500 mg tablet 1,000 mg (2 x 500 mg) PO Q8H #30 11/15/22 05/17/23 Rx (Tylenol Extra Strength) tabs phenytoin sodium extended 100 mg 200 mg (2 x 100 mg) PO BID 90 days 12/14/22 05/17/23 Rx capsule (Dilantin Extended) #360 caps Calcium Citrate + D 200 - 315 mcg PO DAILY 02/11/23 05/17/23 History L.acidop,casei,lactis,rham-B.lact,kevin 2 cap PO DAILY #10 caps 03/03/23 05/17/23 Rx 625 mg (10 billion cell) capsule (Advanced Probiotic) albuterol sulfate 90 mcg/actuation 2 puff inhalation QIDR PRN 03/03/23 05/17/23 Rx aerosol inhaler (Ventolin HFA) shortness of breath or wheezing #6.7 grams dextromethorphan-guaifenesin 5 10 ml PO Q6H PRN cough #118 mL 03/03/23 05/17/23 Rx mg-100 mg/5 mL oral liquid (Robitussin Cough-Chest Congestion DM) Past Med/Surg History Medical History DMII (diabetes mellitus, type 2) HSV (herpes simplex virus) anogenital infection Complex partial seizure Depression with anxiety Heart murmur Onychomycosis Hypertension Schizophrenia Surgical History History of colonoscopy Family History Mother Diabetes Other Seizures Social History Smoking Status: Unknown if ever smoked Hx Alcohol Use: No Hx Substance Use: No Preferred Language: Croatian Communication Ability: Impaired Communication Ability Comment: Intellectual Disability Visual Impairment: No Limitations Hearing Ability: Normal Medication Tech Required: No Beliefs That Will Affect Care: None marital status: Single Current Living Situation: Personal Care Facility current occupational status: disabled Feels Safe at Home: Yes Assistive Devices: Walker Review of Systems Review of Systems: All systems reviewed & are unremarkable except as noted in Subjective Physical Exam Physical Exam: Physical Exam: Vitals signs as noted above General Appearance:Thin, no apparent distress Head: normocephalic, Atraumatic Eyes: normal inspection, EOMI Neck: supple, Trachea midline Respiratory/Chest: Decreased breath sounds, minimal basal crackles, No accessory muscle use Cardiovascular: S1, S2, No murmur Abdomen/GI:Soft, Non tender, Bowel sounds present Extremities/Musculoskeletal:normal inspection, no edema Neurologic/Psych:AAOX1, grossly no focal neurological deficits, +Slow to respond Skin: normal color, warm Results & Data Results & Data Vital Signs (Past 12 Hours) Vital Signs Temp Pulse Pulse Resp BP BP Pulse Ox 05/17/23 12:47 79 05/17/23 10:31 85 18 117/73 96 05/17/23 08:49 90 05/17/23 08:49 95 05/17/23 08:45 36.9 C 90 18 125/75 95 O2 Del Method 05/17/23 12:47 05/17/23 10:31 Room Air 05/17/23 08:49 05/17/23 08:49 Room Air 05/17/23 08:45 Room Air Laboratory Results Short CBC 05/17/23 Range/Units 09:38 WBC 8.50 (4.8-10.8) K/ul Hgb 14.8 (12.0-16.0) g/dl Hct 44.2 (37.0-47.0) % Plt Count 150 (130-400) K/uL BMP 05/17/23 09:38 Sodium 140 Potassium 4.1 Chloride 105 Carbon Dioxide 27 BUN 23 Creatinine 0.71 Glucose 175 H Calcium 9.0 Liver Function 05/17/23 Range/Units 09:38 Total Bilirubin 0.2 (0.2-1.0) mg/dl Direct Bilirubin 0.1 (0-0.2) mg/dl AST 23 (13-39) U/L ALT 36 (7-52) U/L Alkaline Phosphatase 89 (34-104) U/L Albumin 3.9 (3.4-5.0) gm/dl Urine 05/17/23 Range/Units 10:06 Urine Color Yellow Urine Appearance Clear (Clear) Urine pH 7.0 (4.5-7.5) Ur Specific [place] 1.018 (1.000-1.030) Urine Protein Negative (Negative) Urine Glucose (UA) 3+ H (Negative) Diagnostic Findings --CXR:No acute cardiopulmonary findings. No significant change in appearance of the chest. --CT head:No acute intracranial findings. No change in ventriculomegaly. ECG Additional Comments: EKG: Normal sinus rhythm, no significant change from prior EKG, QTc 455
[2023-05-17 13:33] LABS: Adenovirus PCR Not Detected (NotDetected); Bordetella parapertussis PCR Not Detected (NotDetected); Bordetella pertussis PCR Not Detected (NotDetected); Chlamydia pneumoniae PCR Not Detected (NotDetected); Coronavirus 229E PCR Not Detected (NotDetected); Coronavirus CoV-2 (COVID19)PCR Not Detected (NotDetected); Coronavirus HKU1 PCR Not Detected (NotDetected); Coronavirus NL63 PCR Not Detected (NotDetected); Coronavirus OC43PCR Not Detected (NotDetected); Human Metapneumovirus PCR Not Detected (NotDetected); Influenza A PCR Not Detected (NotDetected); Influenza B PCR Not Detected (NotDetected); Mycoplasma pneumoniae PCR Not Detected (NotDetected); Parainfluenza Virus 1 PCR Not Detected (NotDetected); Parainfluenza Virus 2 PCR Not Detected (NotDetected); Parainfluenza Virus 3 PCR Not Detected (NotDetected); Parainfluenza Virus 4 PCR Not Detected (NotDetected); Respiratory Syncytial VirusPCR Not Detected (NotDetected); Rhinovirus/Enterovirus PCR Not Detected (NotDetected)
--- NOTE | 2023-05-17 14:43 | Electrocardiogram Report ---
Test Reason : Blood Pressure : / mmHG Vent. Rate : 093 BPM Atrial Rate : 093 BPM P-R Int : 136 ms QRS Dur : 088 ms QT Int : 366 ms P-R-T Axes : 047 -26 013 degrees QTc Int : 455 ms Normal sinus rhythm Poor R wave progression, consider anterior SC vs. lead placement vs. LVH Abnormal ECG When compared with ECG of 25-FEB-2023 08:24, No significant change Confirmed by Sahil Simmons ([id number]) on 05/17/2023 2:43:27 PM Referred By: REFERRED SELF Confirmed By:Sahil Simmons
[2023-05-17] MEDS ORDERED: CARBOHYDRATES FOR HYPOGLYCEMIA PO PRN (16:30)
[2023-05-17] MEDS ORDERED: ONDANSETRON INJ 2 MG/ML 2 ML VIAL IV PRN (16:30)
[2023-05-17] MEDS ORDERED: GLUCOSE 10 TAB/TUBE PO PRN (16:30)
[2023-05-17] MEDS ORDERED: GLUCOSE 40% GEL 15 GM TUBE PO PRN (16:30)
[2023-05-17] MEDS ORDERED: guaiFENesin/DEXTROM SYRUP 200MG/20MG 10ML UDC PO PRN (16:30)
[2023-05-17] MEDS ORDERED: SODIUM CHLORIDE 0.9% 1,000 ML IV SCH (16:30)
[2023-05-17] MEDS ORDERED: GLUCAGON FOR INJ 1 MG VIAL SQ PRN (16:30)
[2023-05-17] MEDS ORDERED: DEXTROSE 50% 50 ML SYRINGE IV PRN (16:30)
[2023-05-17] MEDS ORDERED: ALBUTEROL HFA 8 GM INHALER INH PRN (16:30)
[2023-05-17] MEDS: ACETAMINOPHEN 500 MG TAB PO SCH (17:12)
[2023-05-17] MEDS: DOXYCYCLINE HYCLATE 100 MG CAP PO SCH (17:12)
[2023-05-17] MEDS: levETIRAcetam 250 MG TAB PO SCH (20:09)
[2023-05-17] MEDS: FLUTICASONE PROPIONATE NA SPR 16 GM BTL SCH (20:09)
[2023-05-17] MEDS: PHENYTOIN SODIUM ER 100 MG CAP PO SCH (20:11)
[2023-05-17] MEDS: cloZAPine 100 MG TAB PO SCH (20:11)
[2023-05-17] MEDS: DOCUSATE SODIUM 100 MG CAP PO SCH (20:11)
[2023-05-17] MEDS: ATORVASTATIN 40 MG TAB PO SCH (20:11)
[2023-05-17] MEDS: POLYETHYLENE (MIRALAX) 17 GM PACK PO SCH (20:12)
[2023-05-17] MEDS: INSULIN ASPART PER UNIT CHARGE SC SCH (20:57)
[2023-05-18] MEDS: ACETAMINOPHEN 500 MG TAB PO SCH ×3 (00:55→17:06)
[2023-05-18] MEDS: DOXYCYCLINE HYCLATE 100 MG CAP PO SCH ×2 (05:55→17:05)
[2023-05-18 06:44] LABS: Hematocrit (blood only) 41.4 % (37.0-47.0); Hemoglobin 13.8 g/dl (12.0-16.0); Mean Corpuscular Hemoglobin 31.3 pg (25.0-34.0); Mean Corpuscular Hgb Conc 33.3 g/dL (32.0-36.0); Mean Corpuscular Volume 93.9 fL (80.0-100.0); Mean Platelet Volume 11.5 fL (9.4-12.4); Platelet Count 129 K/uL (130-400); RDW Coefficient of Variation 14.8 % (11.5-14.5); RDW Standard Deviation 51.2 fL (36.4-46.3); Red Blood Count 4.41 M/uL (4.20-5.40); White Blood Count 6.92 K/ul (4.8-10.8)
[2023-05-18 07:13] LABS: BUN Creatinine Ratio 39.2 (10-20); Calcium 7.9 mg/dl (8.6-10.3); Chol HDL Ratio 2.1 (0-5); Creatinine Clr Calc Pharmacy 104.4 ml/min; Est GFR (African American) 121.1 ml/min; Est GFR (Non-African American) 104.5 ml/min; Magnesium 1.8 mg/dl (1.7-2.4); Potassium 3.9 mmol/L (3.5-5.1)
[2023-05-18 07:30] LABS: Estimated Average Glucose 120 mg/dl; Hemoglobin A1C 5.8 % (4.5-5.6)
[2023-05-18] MEDS ORDERED: INFLUENZA VIRUS QUADRIVALENT VACCINE (IIV4) 0.5 ML SYR IM ONE (08:00)
[2023-05-18] MEDS: PHENYTOIN SODIUM ER 100 MG CAP PO SCH ×2 (08:52→20:55)
[2023-05-18] MEDS: ADVANCED PROBIOTIC 1250 MG CAPSULE PO SCH (08:52)
[2023-05-18] MEDS: VITAMIN B COMPLEX TAB PO SCH (08:52)
[2023-05-18] MEDS: DOCUSATE SODIUM 100 MG CAP PO SCH ×2 (08:52→20:59)
[2023-05-18] MEDS: POLYETHYLENE (MIRALAX) 17 GM PACK PO SCH ×2 (08:52→20:59)
[2023-05-18] MEDS: levETIRAcetam 250 MG TAB PO SCH ×2 (08:53→20:56)
[2023-05-18] MEDS: ENOXAPARIN INJ 40 MG/0.4 ML SYR SQ SCH (08:53)
[2023-05-18] MEDS: FAMOTIDINE 20 MG TAB PO SCH (08:53)
[2023-05-18] MEDS: valACYclovir HCL 500 MG TABLET PO SCH (08:53)
[2023-05-18] MEDS: LANTUS PER UNIT CHARGE SQ SCH (09:02)
[2023-05-18] MEDS: INSULIN ASPART PER UNIT CHARGE SC SCH ×4 (09:03→20:23)
--- NOTE | 2023-05-18 10:30 | XRay Report ---
KUB CLINICAL HISTORY: MRI screening. FINDINGS: 2 AP, portable, supine abdominal radiographs are compared to abdominal radiographs and CT d ated 09/29/2022. There is a nonobstructed abdominal bowel gas pattern. Moderate fecal retention is see n throughout the colon. No evidence of intraperitoneal free air is seen on these supine images. There are no abnormal abdominal calcifications. Phleboliths are seen in the pelvis. No radiodense/metallic foreign body is identified. The skeletal structures are osteopenic and appear intact. There is moder ate lumbosacral spondylosis. Postsurgical change is noted in the right proximal femur. IMPRESSION: 1. No acute abnormality is identified. 2. No radiodense/metallic foreign body is identified. Electronically signed by: Carlos Savage M.D. 05/18/2023 10:29 AM
--- NOTE | 2023-05-18 18:43 | Hospitalist Progress Note ---
Date of Service May 18, 2023 Assessment & Plan (1) Elevated lactic acid level: Plan: Acute bronchitis Lactic acidosis Chest x-ray showed no signs of pneumonia Blood cultures: No growth to date Bio fire negative Normal procalcitonin Empirically started on doxycycline Lactic acidosis resolved with IV fluids Saturating well on room Generalized weakness Patient presented with leaning towards left side per caregiver Concern for CVA --CT Head:No acute intracranial findings. No change in ventriculomegaly. --Normal lipid panel -- MRI brain pending No focal deficits on exam PT OT as able Fall precautions Plan to discharge tomorrow if MRI negative Schizophrenia Chronic, stable -Reports Auditory hallucinations at baseline -Continue clozapine 600mg QPM Complex Partial Seizures Chronic, stable -Follows Dr Marshall 01/22/2023, last seizure 2010 -continue Keppra 250mg BID and phenytoin 200 BID DM II Chronic, stable HbA1c 5.8 Hold Home PO meds -Continue Insulin per protocol GERD Chronic, stable Continue famotidine 20mg HLD Chronic, stable Continue statin Herpes Dermatitis Chronic, stable Continue Valacyclovir 500mg BID Hypertension Previously on lisinopril Currently not on meds Monitor BP DVT Px: Lovenox SQ Code Status Full Code Disposition PT OT prior to discharge (2) Weakness: Admission and Anticipated Discharge Date Admission Date: May 17, 2023 Subjective Patient is seen and examined at bedside States having minimal cough Denies any chest pain, dyspnea, dizziness, nausea, vomiting, abdominal pain No other complaints MRI brain pending Review of Systems Review of Systems: All systems reviewed & are unremarkable except as noted in Subjective Physical Exam Physical Exam: Physical Exam: Vitals signs as noted above General Appearance:Thin, no apparent distress Head: normocephalic, Atraumatic Eyes: normal inspection, EOMI Neck: supple, Trachea midline Respiratory/Chest: Decreased breath sounds, minimal basal crackles, No accessory muscle use Cardiovascular: S1, S2, No murmur Abdomen/GI:Soft, Non tender, Bowel sounds present Extremities/Musculoskeletal:normal inspection, no edema Neurologic/Psych:AAOX1, grossly no focal neurological deficits, +Slow to respond Skin: normal color, warm Results & Data Results & Data Vital Signs (Past 12 Hours) Vital Signs Temp Pulse Pulse Resp BP Pulse Ox O2 Del Method 05/18/23 16:30 77 05/18/23 15:09 36.8 C 77 17 98/61 L 94 Room Air 05/18/23 11:31 36.3 C L 87 18 109/70 94 Room Air 05/18/23 08:00 75 05/18/23 07:55 36.8 C 79 17 115/72 94 Room Air Laboratory Results Short CBC 05/18/23 Range/Units 05:48 WBC 6.92 (4.8-10.8) K/ul Hgb 13.8 (12.0-16.0) g/dl Hct 41.4 (37.0-47.0) % Plt Count 129 L (130-400) K/uL BMP 05/18/23 05:48 Sodium 141 Potassium 3.9 Chloride 111 H Carbon Dioxide 24 BUN 20 Creatinine 0.51 L Glucose 102 H Calcium 7.9 L
[2023-05-18] MEDS: FLUTICASONE PROPIONATE NA SPR 16 GM BTL SCH (20:54)
[2023-05-18] MEDS: ATORVASTATIN 40 MG TAB PO SCH (20:55)
[2023-05-18] MEDS: cloZAPine 100 MG TAB PO SCH (20:55)
[2023-05-18] MEDS ORDERED: GADOBUTROL 65ML VIAL IV ONE (22:17)
[2023-05-19] MEDS: ACETAMINOPHEN 500 MG TAB PO SCH ×2 (00:21→08:18)
--- NOTE | 2023-05-19 01:19 | Magnetic Resonance Report ---
Exam(s): MRI HEAD W/WO Contrast EXAM: MR Head Without and With Intravenous Contrast CLINICAL HISTORY: Reason for exam: Stroke like symtpoms. TECHNIQUE: Magnetic resonance images of the head/brain without and with intravenous contrast in multiple planes. CONTRAST: Contrast must be dictated COMPARISON: Comparison made to prior brain MRI from October 09, 2022. FINDINGS: Brain: Mild nonspecific white matter changes. The flow voids at the base the brain are intact. No mass. No hemorrhage. No acute infarct. No evidence of abnormal enhancement. The dural venous sinuses are patent. Ventricles: Advanced ventriculomegaly. Bones/joints: Unremarkable. No acute fracture. Sinuses: Chronic ethmoid sinusitis. No acute sinusitis. Mastoid air cells: Unremarkable as visualized. No mastoid effusion. Orbits: Unremarkable as visualized. IMPRESSION: No evidence of acute intra-abdominal pathology. Mild nonspecific white matter changes. Advanced ventriculomegaly which is disproportionately predominant relative to the sulci and cisterns, concerning for normal pressure hydrocephalus. Electronically signed by: Petra Bucio MD 05/19/23 01:18 AM
[2023-05-19] MEDS: DOXYCYCLINE HYCLATE 100 MG CAP PO SCH (06:22)
[2023-05-19 06:36] LABS: Hemoglobin 14.5 g/dl (12.0-16.0); Mean Corpuscular Hemoglobin 31.5 pg (25.0-34.0); Mean Corpuscular Hgb Conc 34.5 g/dL (32.0-36.0); Mean Corpuscular Volume 91.3 fL (80.0-100.0); Mean Platelet Volume 11.5 fL (9.4-12.4); Platelet Count 144 K/uL (130-400); RDW Standard Deviation 50.8 fL (36.4-46.3)
[2023-05-19 06:58] LABS: BUN Creatinine Ratio 30.5 (10-20); Calcium 8.2 mg/dl (8.6-10.3); Creatinine Clr Calc Pharmacy 87.1 ml/min; Est GFR (African American) 115.5 ml/min; Est GFR (Non-African American) 99.6 ml/min; Potassium 3.9 mmol/L (3.5-5.1)
[2023-05-19] MEDS: LANTUS PER UNIT CHARGE SQ SCH (08:18)
[2023-05-19] MEDS: VITAMIN B COMPLEX TAB PO SCH (08:19)
[2023-05-19] MEDS: INSULIN ASPART PER UNIT CHARGE SC SCH ×2 (08:19→12:01)
[2023-05-19] MEDS: levETIRAcetam 250 MG TAB PO SCH (08:19)
[2023-05-19] MEDS: valACYclovir HCL 500 MG TABLET PO SCH (08:19)
[2023-05-19] MEDS: ENOXAPARIN INJ 40 MG/0.4 ML SYR SQ SCH (08:20)
[2023-05-19] MEDS: FAMOTIDINE 20 MG TAB PO SCH (08:20)
[2023-05-19] MEDS: ADVANCED PROBIOTIC 1250 MG CAPSULE PO SCH (08:20)
[2023-05-19] MEDS: PHENYTOIN SODIUM ER 100 MG CAP PO SCH (08:20)
[2023-05-19] MEDS: POLYETHYLENE (MIRALAX) 17 GM PACK PO SCH (08:25)
[2023-05-19] MEDS: DOCUSATE SODIUM 100 MG CAP PO SCH (08:25)
--- NOTE | 2023-05-19 13:20 | Discharge Summary ---
Discharge Summary Date of Service May 19, 2023 Notes For Next Care Provider Medication Changes From Visit Doxycycline 100mg BID until 05/24/2023 Admission HPI Per Admitting Provider Patient is a 62-year-old female with history of seizures, ambulatory dysfunction, cognitive dysfunction, schizophrenia, diabetes mellitus type 2 and other medical problems presents with history of cough associated with weakness and concern for stroke. Patient is a very poor historian due to cognitive issues. Most of the history is obtained from ER staff, caregiver at bedside and old records. Caregiver informs patient has been having dry cough since 1 day duration. Patient has chronic hallucinations at baseline. Patient was noted to be awake and leaning towards left side this morning while in bathroom. Currently during my encounter, patient mental status seem to be back to baseline. Patient was brought to ED for further evaluation as concern for stroke as per caregiver. No known history of trauma, syncopal, focal weakness. Denies any history of chest pain, dyspnea, dizziness, wheezing, hemoptysis, fever, chills, headache, numbness, change in vision, slurred speech, facial d eformity, bowel/bladder incontinence, nausea, vomiting, abdominal pain, diarrhea, dysuria, hematuria, recent change in medications. Admission Exam Per Admitting Provider Physical Exam: Vitals signs as noted above General Appearance:Thin, no apparent distress Head: normocephalic, Atraumatic Eyes: normal inspection, EOMI Neck: supple, Trachea midline Respiratory/Chest: Decreased breath sounds, minimal basal crackles, No accessory muscle use Cardiovascular: S1, S2, No murmur Abdomen/GI:Soft, Non tender, Bowel sounds present Extremities/Musculoskeletal:normal inspection, no edema Neurologic/Psych:AAOX1, grossly no focal neurological deficits, +Slow to respond Skin: normal color, warm Principal Dx & Hospital Course #1 = Principal Diagnosis (1) Elevated lactic acid level: Ms. Oneill is a 62-year-old female with history of seizures, ambulatory dysfunction, cognitive dysfunction, schizophrenia, diabetes mellitus type 2 and other medical problems who was admitted for concerns of cough and associated with weakness and concern for stroke. MRI was negative for stroke and cough improved per patient's report. Patient is slow to respond, however, upon day of discharge, she [facility] #Acute bronchitis *improved #Lactic acidosis *resolved Chest x-ray showed no signs of pneumonia Blood cultures: No growth to date Bio fire negative Normal procalcitonin Empirically started on doxycycline, continued for 7 day course Lactic acidosis resolved with IV fluids, encourage po intake Saturating well on room #Generalized weakness Patient presented with leaning towards left side per caregiver Concern for CVA --CT Head:No acute intracranial findings. No change in ventriculomegaly. --Normal lipid panel -- MRI brain negative for stroke #Schizophrenia Chronic, stable -Reports Auditory hallucinations at baseline -Continue clozapine 600mg QPM #Complex Partial Seizures Chronic, stable -Follows Dr Marshall 01/22/2023, last seizure 2010 -continue Keppra 250mg BID and phenytoin 200 BID -Neurology follow up in 07/2023 #DM II Chronic, stable HbA1c 5.8 Resume Home PO meds #GERD Chronic, stable Continue famotidine 20mg #HLD Chronic, stable Continue statin #Herpes Dermatitis Chronic, stable Continue Valacyclovir 500mg BID #Hypertension No on meds On day of discharge, patient states she feels good. Vital signs are stable, she saturates well on room air and she denies any pain. (2) Weakness: Discharge Exam Constitutional slow to respond Respiratory normal respiratory effort, lungs clear to auscultation Cardiovascular RRR, no murmur, no edema Gastrointestinal (Abdomen) normal bowel sounds, soft, nontender, no hepatosplenomegaly Neurologic no focal deficits, moves all extremities and follows commands slowly Updated Medication List Medication Instructions Recorded Confirmed Type atorvastatin 40 mg tablet 40 mg PO HS 07/17/18 05/17/23 History glimepiride 2 mg tablet 2 mg PO QAM 07/17/18 05/17/23 History metformin 500 mg tablet,extended 1,000 mg PO BID 07/17/18 05/17/23 History release 24 hr multivit-iron 18 mg-folic acid 400 1 tab PO QAM 07/17/18 05/17/23 History mcg-calcium 500 mg-minerals tablet (Women's One Daily) vitamin B complex 1 tab PO QAM 08/25/18 05/17/23 History fluticasone propionate 50 2 sprays intranasal QPM 02/15/19 05/17/23 History mcg/actuation nasal spray,suspension ammonium lactate 12 % topical cream 1 applic topical QAM 05/21/19 05/17/23 History docusate sodium 100 mg capsule 100 mg PO BID 05/21/19 05/17/23 History (Colace) triamcinolone acetonide 0.1 % 1 applic topical BID PRN Rash 07/10/21 05/17/23 History topical cream famotidine 20 mg tablet 20 mg PO DAILY 08/25/21 05/17/23 History clozapine 200 mg tablet 600 mg PO HS 10/31/21 05/17/23 History valacyclovir 500 mg tablet 500 mg PO DAILY 02/18/22 05/17/23 History food supplemt, lactose-reduced 1 ea PO QAM 10/14/22 05/17/23 History glimepiride 1 mg tablet 1 mg PO DIRECTED PRN BSG >300. 10/14/22 05/17/23 History levetiracetam 250 mg tablet 250 mg PO BID 90 days #180 tabs 10/15/22 05/17/23 Rx (Keppra) empagliflozin 10 mg tablet 25 mg PO DAILY 10/19/22 05/17/23 History (Jardiance) polyethylene glycol 3350 17 gram 17 g PO BID 10/19/22 05/17/23 History oral powder packet (Miralax) acetaminophen 500 mg tablet 1,000 mg (2 x 500 mg) PO Q8H #30 11/15/22 05/17/23 Rx (Tylenol Extra Strength) tabs phenytoin sodium extended 100 mg 200 mg (2 x 100 mg) PO BID 90 days 12/14/22 05/17/23 Rx capsule (Dilantin Extended) #360 caps Calcium Citrate + D 200 - 315 mcg PO DAILY 02/11/23 05/17/23 History L.acidop,casei,lactis,rham-B.lact,kevin 2 cap PO DAILY #10 caps 03/03/23 05/17/23 Rx 625 mg (10 billion cell) capsule (Advanced Probiotic) albuterol sulfate 90 mcg/actuation 2 puff inhalation QIDR PRN 03/03/23 05/17/23 Rx aerosol inhaler (Ventolin HFA) shortness of breath or wheezing #6.7 grams dextromethorphan-guaifenesin 5 10 ml PO Q6H PRN cough #118 mL 03/03/23 05/17/23 Rx mg-100 mg/5 mL oral liquid (Robitussin Cough-Chest Congestion DM) doxycycline hyclate 100 mg capsule 100 mg PO Q12H #9 caps 05/19/23 Rx Hospital Stay Data Consultations 05/17/23 12:51 ED Decision to Admit Stat Diagnostic Imagining Performed 05/17/23 08:46 CT head/brain wo con Stat 05/18/23 00:10 MR brain wo/w con Routine Pending Results Patient Have Any Pending Studies at Discharge: No Discharge Instructions Given to Patient (Per Discharging Provider) You were found to have acute bronchitis. You were started on antibiotic and your symptoms improved. You will continued on the following regimen until 05/24/2023: Doxycycline 100mg twice daily There were no other changes to your medications Total Time Total Time Spent Total Time Spent (In Minutes): 55
== END 2023-05-19 13:43 | disposition home or self-care (01) | DRG 202 ==
LOC: ED 08:34 → SUATTDRO 14:02 → EDINP 14:02 → 2S 16:30

== ENCOUNTER 2023-06-07 08:45 | Inpatient (IN) ==
--- NOTE | 2023-06-07 08:55 | Emergency Department Note ---
Impression & Plan Acute alteration in mental status, Fall, Head injury, Influenza A ED Provider Note NAME: ORLANDO LESLIE AGE: 63 SEX: F : 1960 ARRIVES VIA: Ambulance INFORMANT: Patient, EMS, documentation from the [facility] ED PROVIDER(S): Nayan Carlson DO CHIEF COMPLAINT: Altered mental status HPI: The patient is a 63-year-old female who presented to the emergency department from [facility]. She is unable to give much history on her own. History was obtained from the prehospital personnel. The patient was in our facility 2 weeks ago for similar complaints according to the prehospital personnel. The patient had a fall but it is unclear exactly when she had the fall. It is unclear if she struck her head. The patient offers no complaints at this time but she is slow to answer questions and seems somewhat confused. ROS: See above HPI for pertinent positives & negatives. A total of 10 systems reviewed and were otherwise negative. PAST MEDICAL HISTORY: See Below PAST SURGICAL HISTORY: See Below FAMILY HISTORY: See Below SOCIAL HISTORY: See Below HOME MEDICATIONS: See Below ALLERGIES: See Below VITALS: See Below PHYSICAL EXAMINATION: GENERAL: The patient is awake to verbal commands. She is very slow to answer questions. EYES: The conjunctivae are clear. The pupils are round and reactive. EARS, NOSE, MOUTH AND THROAT: The nose is without any evidence of any deformity. Mucous membranes are dry. NECK: The neck is nontender and supple. RESPIRATORY: Normal respiratory effort is noted there is no evidence of wheezing rhonchi or rales CARDIOVASCULAR: Regular rate and rhythm noted there no murmurs rubs or gallops normal S1 normal S2. GASTROINTESTINAL: The abdomen is soft. Abdomen is nontender. BACK: No midline tenderness or or step-off noted range of motion in flexion extension as well as rotation no signs of muscle spasm noted MUSCULOSKELETAL/EXTREMITIES: There is no evidence of gross deformity full range of motion is noted in the hips and shoulders. SKIN: There is no obvious evidence of any rash. There are no petechiae, pallor or cyanosis noted. NEUROLOGIC: Patient is awake to verbal commands. She is oriented to person and place only. Strength is diminished but symmetric. MEDICAL DECISION MAKING: The patient is a 63-year-old female who presented to the emergency department from her personal-alf for an evaluation of altered mental status. The patient reportedly has been having decreased mental status over the course of the last few days. She had a fall. The patient was sent in because of her altered mental status but also because of the head injury. I discussed patient's laboratory and radiographic studies with her and her caregiver. She was treated with IV fluids in the emergency department. On reevaluation the patient did not have much significant change in her mental status. She is slow to answer questions. The caregiver the presented to the emergency department with her states that this is new for her and she normally is able to ambulate without difficulty. For this reason I will discuss her condition with the on- call [facility]. I did review the patient's recent inpatient stay. It sounds though this is not a completely new presentation for the patient. Triage Nursing notes reviewed. Prior medical records reviewed Vital Signs: reviewed and remarkable for elevated blood pressure. Differential diagnosis: Infection, hypoglycemia, electrolyte abnormalities, overdose, toxicologic, cardiac sources, intracerebral event, neurologic, trauma, as well as other pathologies. ER treatment provided: See below Diagnostics interpreted by me: ECG: EKG was obtained in the emergency department. My interpretation is sinus tachycardia 111 bpm. There is no ectopy. There are minimal ST segment depressions noted in the lateral leads. This was compared to a tracing from May 17, 2023. No specific changes were noted. Cardiac Monitoring: An order was placed for continuous cardiac monitoring. The monitor shows a rate of 103 bpm with sinus tachycardia. Laboratory studies: As stated above and show below. Imaging studies: See below. Radiographic imaging was reviewed by myself Consultation(s): I discussed this case with Mary who is on-call for the [facility] group. Past Med/Surg History Medical History Elevated lactic acid level Weakness AMS (altered mental status) DMII (diabetes mellitus, type 2) HSV (herpes simplex virus) anogenital infection Complex partial seizure Depression with anxiety Heart murmur Onychomycosis Hypertension Schizophrenia Surgical History History of colonoscopy Family History Mother Diabetes Other Seizures Social History Smoking Status: Never smoker Hx Alcohol Use: No Hx Substance Use: No Preferred Language: Cape Verdean Communication Ability: Effective Communication Ability Comment: Intellectual Disability Visual Impairment: No Limitations Hearing Ability: Normal Brake Specialist Required: Voice Beliefs That Will Affect Care: None marital status: Single Current Living Situation: Personal Care Facility Current Living Situation Comment: From [facility] current occupational status: disabled Feels Safe at Home: Yes Assistive Devices: Cane and Walker Allergies Allergies Allergy/AdvReac Type Severity Reaction Status Date / Time divalproex sodium Allergy Unknown Unknown Verified 02/11/23 12:10 [From Depakote] salicylates Allergy Unknown Unknown Verified 02/11/23 12:10 valproic acid Allergy Unknown Unknown Verified 02/11/23 12:10 aspirin AdvReac Severe STOMACH Verified 02/11/23 12:10 ULCER BLEEDING Home Meds Home Medications Medication Instructions Recorded Confirmed atorvastatin 40 mg tablet 40 mg PO HS 07/17/18 05/17/23 glimepiride 2 mg tablet 2 mg PO QAM 07/17/18 05/17/23 metformin 500 mg tablet,extended 1,000 mg PO BID 07/17/18 05/17/23 release 24 hr multivit-iron 18 mg-folic acid 400 1 tab PO QAM 07/17/18 05/17/23 mcg-calcium 500 mg-minerals tablet (Women's One Daily) vitamin B complex 1 tab PO QAM 08/25/18 05/17/23 fluticasone propionate 50 2 sprays intranasal QPM 02/15/19 05/17/23 mcg/actuation nasal spray,suspension ammonium lactate 12 % topical cream 1 applic topical QAM 05/21/19 05/17/23 docusate sodium 100 mg capsule 100 mg PO BID 05/21/19 05/17/23 (Colace) triamcinolone acetonide 0.1 % 1 applic topical BID PRN Rash 07/10/21 05/17/23 topical cream famotidine 20 mg tablet 20 mg PO DAILY 08/25/21 05/17/23 clozapine 200 mg tablet 600 mg PO HS 10/31/21 05/17/23 valacyclovir 500 mg tablet 500 mg PO DAILY 02/18/22 05/17/23 food supplemt, lactose-reduced 1 ea PO QAM 10/14/22 05/17/23 glimepiride 1 mg tablet 1 mg PO DIRECTED PRN BSG >300. 10/14/22 05/17/23 empagliflozin 10 mg tablet 25 mg PO DAILY 10/19/22 05/17/23 (Jardiance) polyethylene glycol 3350 17 gram 17 g PO BID 10/19/22 05/17/23 oral powder packet (Miralax) Calcium Citrate + D 200 - 315 mcg PO DAILY 02/11/23 05/17/23 Previous Rx's Medication Instructions Recorded levetiracetam 250 mg tablet 250 mg PO BID 90 days #180 tabs 10/15/22 (Keppra) acetaminophen 500 mg tablet 1,000 mg (2 x 500 mg) PO Q8H #30 11/15/22 (Tylenol Extra Strength) tabs phenytoin sodium extended 100 mg 200 mg (2 x 100 mg) PO BID 90 days 12/14/22 capsule (Dilantin Extended) #360 caps L.acidop,casei,lactis,rham-B.lact,kevin 2 cap PO DAILY #10 caps 03/03/23 625 mg (10 billion cell) capsule (Advanced Probiotic) albuterol sulfate 90 mcg/actuation 2 puff inhalation QIDR PRN 03/03/23 aerosol inhaler (Ventolin HFA) shortness of breath or wheezing #6.7 grams dextromethorphan-guaifenesin 5 10 ml PO Q6H PRN cough #118 mL 03/03/23 mg-100 mg/5 mL oral liquid (Robitussin Cough-Chest Congestion DM) doxycycline hyclate 100 mg capsule 100 mg PO Q12H #9 caps 05/19/23 Results & Data (ED) Vital Signs Vital Signs - 24 hr 06/07/23 08:58 06/07/23 09:03 06/07/23 09:09 Temperature 36.9 C Temperature Source Oral Pulse Rate 104 H Pulse Rate [Apical] 100 H Respiratory Rate 15 16 Blood Pressure 117/92 Blood Pressure [Left Arm] Blood Pressure Mean 100 Blood Pressure Mean [Left Arm] Pulse Oximetry 97 95 96 Oxygen Delivery Method Room Air Room Air Room Air Sepsis Recent Fever Within 48 Hours No Sepsis New/Unexplained Change in Mental Status No Sepsis Action Taken by Nursing No Action Required 06/07/23 09:29 06/07/23 10:32 Temperature Temperature Source Pulse Rate 109 H Pulse Rate [Apical] 103 H Respiratory Rate 16 Blood Pressure Blood Pressure [Left Arm] 142/84 H Blood Pressure Mean Blood Pressure Mean [Left Arm] 103 Pulse Oximetry 96 Oxygen Delivery Method Room Air Sepsis Recent Fever Within 48 Hours Sepsis New/Unexplained Change in Mental Status Sepsis Action Taken by [facility] Medications Current Medication List: was personally reviewed by me Laboratory Data Attestation: I reviewed the patient's lab results. 06/07/23 09:12 06/07/23 09:45 Lab Results 06/07/23 06/07/23 06/07/23 Range/Units 09:12 09:45 11:20 WBC 6.22 (4.8-10.8) K/ul RBC 5.43 H (4.20-5.40) M/uL Hgb 17.0 H (12.0-16.0) g/dl Hct 50.7 H (37.0-47.0) % MCV 93.4 (80.0-100.0) fL MCH 31.3 (25.0-34.0) pg MCHC 33.5 (32.0-36.0) g/dL RDW Std Deviation 52.0 H (36.4-46.3) fL RDW Coeff of Liliana 15.1 H (11.5-14.5) % Plt Count 119 L (130-400) K/uL MPV 11.2 (9.4-12.4) fL Immature Gran % (Auto) 0.5 % Neut % (Auto) 81.3 % Lymph % (Auto) 6.6 % Casey % (Auto) 7.9 % Eos % (Auto) 3.4 % Baso % (Auto) 0.3 % Neut # (Auto) 5.06 (1.40-6.50) K/uL Lymph # (Auto) 0.41 L (1.20-3.40) K/uL Casey # (Auto) 0.49 (0.11-0.59) K/uL Eos # (Auto) 0.21 (0.00-0.50) K/uL Baso # (Auto) 0.02 (0.00-0.20) K/uL Immature Gran # (Auto) 0.03 (0.01-0.20) K/uL PT 10.3 (9.0-12.0) Seconds INR 0.9 (0.9-1.1) APTT 25 (21-31) Seconds PTT Ratio 0.9 VBG pH 7.32 L (7.36-7.41) VBG pCO2 50 (38-50) mmHg VBG pO2 38 mmHg VBG HCO3 26 mmol/L VBG O2 Saturation 62.6 % VBG Base Excess -0.9 mEq/L Sodium 136 (136-145) mmol/L Potassium TNP 5.3 H Chloride 101 (98-107) mmol/L Carbon Dioxide 24 (21-32) mmol/L Anion Gap 11 (3-11) BUN 15 (6-23) mg/dl Creatinine 0.73 (0.6-1.2) mg/dl Est Cr Clr Drug Dosing 64.0 ml/min Est GFR ( Amer) 103.0 ml/min Est GFR (Non-Af Amer) 88.9 ml/min BUN/Creatinine Ratio 20.5 H (10-20) Glucose 219 H (70-99(Fasting)) mg/dl Calcium 9.4 (8.6-10.3) mg/dl Magnesium 2.1 (1.7-2.4) mg/dl Total Bilirubin 0.4 (0.2-1.0) mg/dl AST TNP 30 ALT 52 (7-52) U/L Alkaline Phosphatase 130 H (34-104) U/L Ammonia Cancelled 23.0 Total Creatine Kinase 73 (26-192) U/L Troponin I High Sens 3.8 (0-14) pg/ml Total Protein 8.3 (6.0-8.3) gm/dl Albumin 4.9 (3.4-5.0) gm/dl Globulin 3.4 (2.5-4.0) gm/dl Albumin/Globulin Ratio 1.4 (0.9-2) TSH 1.014 (0.300-4.500) uIu/ml Phenytoin 5.8 L (10-20) mcg/ml Ethyl Alcohol mg/dL < 10.0 (<10.0) mg/dl SARS-CoV-2 (PCR) (Negative) Influenza Type A (PCR) (Neg) Influenza Type B (PCR) (Neg) RSV (RT-PCR) (Neg) 06/07/23 Range/Units Unknown WBC (4.8-10.8) K/ul RBC (4.20-5.40) M/uL Hgb (12.0-16.0) g/dl Hct (37.0-47.0) % MCV (80.0-100.0) fL MCH (25.0-34.0) pg MCHC (32.0-36.0) g/dL RDW Std Deviation (36.4-46.3) fL RDW Coeff of Liliana (11.5-14.5) % Plt Count (130-400) K/uL MPV (9.4-12.4) fL Immature Gran % (Auto) % Neut % (Auto) % Lymph % (Auto) % Casey % (Auto) % Eos % (Auto) % Baso % (Auto) % Neut # (Auto) (1.40-6.50) K/uL Lymph # (Auto) (1.20-3.40) K/uL Casey # (Auto) (0.11-0.59) K/uL Eos # (Auto) (0.00-0.50) K/uL Baso # (Auto) (0.00-0.20) K/uL Immature Gran # (Auto) (0.01-0.20) K/uL PT (9.0-12.0) Seconds INR (0.9-1.1) APTT (21-31) Seconds PTT Ratio VBG pH (7.36-7.41) VBG pCO2 (38-50) mmHg VBG pO2 mmHg VBG HCO3 mmol/L VBG O2 Saturation % VBG Base Excess mEq/L Sodium (136-145) mmol/L Potassium Chloride (98-107) mmol/L Carbon Dioxide (21-32) mmol/L Anion Gap (3-11) BUN (6-23) mg/dl Creatinine (0.6-1.2) mg/dl Est Cr Clr Drug Dosing ml/min Est GFR ( Amer) ml/min Est GFR (Non-Af Amer) ml/min BUN/Creatinine Ratio (10-20) Glucose (70-99(Fasting)) mg/dl Calcium (8.6-10.3) mg/dl Magnesium (1.7-2.4) mg/dl Total Bilirubin (0.2-1.0) mg/dl AST ALT (7-52) U/L Alkaline Phosphatase (34-104) U/L Ammonia Total Creatine Kinase (26-192) U/L Troponin I High Sens (0-14) pg/ml Total Protein (6.0-8.3) gm/dl Albumin (3.4-5.0) gm/dl Globulin (2.5-4.0) gm/dl Albumin/Globulin Ratio (0.9-2) TSH (0.300-4.500) uIu/ml Phenytoin (10-20) mcg/ml Ethyl Alcohol mg/dL (<10.0) mg/dl SARS-CoV-2 (PCR) NEGATIVE (Negative) Influenza Type A (PCR) Positive A* (Neg) Influenza Type B (PCR) Negative (Neg) RSV (RT-PCR) Negative (Neg) Administered Medications Discontinued Medications Sodium Chloride (Nss) 500 mls @ 999 mls/hr IV .Q31M DELMI Stop: 06/07/23 09:30 Last Admin: 06/07/23 09:54 Dose: 999 mls/hr Documented By: DS Sodium Chloride (Nss) 1,000 mls @ 999 mls/hr IV .Q1H1M ONE Stop: 06/07/23 10:59 Last Admin: 06/07/23 10:30 Dose: 999 mls/hr Documented By: KV Imaging Data Attestation: I personally reviewed and interpreted this imaging study as follows: My Impression: 1 view chest x-ray was obtained in the emergency department. My interpretation is no free air or definite infiltrate, final report below. CT of the brain was obtained in the emergency department. My interpretation is no intracranial hemorrhage or mass effect, enlargement of the ventricles is noted, final report below. Radiologist's Impression: Cervical Spine CT 06/07/23 08:51 CT OF THE CERVICAL SPINE WITHOUT CONTRAST CLINICAL HISTORY: fall COMPARISON STUDY: Cervical spine CT September 20, 2006. TECHNIQUE: Helical axial images of the cervical spine were obtained without IV contrast. Sagittal and coronal reconstructions were viewed. Automated exposure control was utilized for the study. A dose lowering technique was utilized adhering to the principles of ALARA. FINDINGS: Alignment of the cervical spine is anatomic. Vertebral body heights are maintained. No acute cervical spine fracture or subluxation is present. There is no prevertebral edema. Facet joints are intact. Mild multilevel degenerative disc disease and facet arthrosis is present. Slight loss of height of the superior endplate of T2 is chronic. Dilatation of visualized portions of the esophagus is similar to prior cervical spine CT. IMPRESSION: No acute cervical spine fracture or subluxation. ACT 112: Negative or not required by law. Electronically signed by: Jose Srinivasan M.D. 06/07/2023 10:00 AM Chest X-Ray 06/07/23 08:51 XR chest 1V portable HISTORY: 63 years-old Female weakness COMPARISON: Chest radiograph 05/17/2023 TECHNIQUE: AP view of the chest FINDINGS: Cardiomediastinal and hilar silhouettes are within normal limits. Mild gaseous distention of the stomach. No pneumothorax, pleural effusion or airspace consolidation. Bones of the chest appear grossly intact. IMPRESSION: No acute process. ACT 112: Negative or not required by law. The above report was generated using voice recognition software. It may contain grammatical, syntax or spelling errors. Electronically signed by: Vince Brito M.D. 06/07/2023 10:[address] 06/07/23 08:52 CT head/brain wo con CLINICAL HISTORY: 63 years-old Female with ams. Acutely altered mental status TECHNIQUE: Multiple axial CT images of the head were obtained without contrast. A dose lowering technique was utilized adhering to the principles of ALARA. COMPARISON: 05/17/[address], brain MRI 05/18/2023 FINDINGS: No acute intracranial hemorrhage, midline shift, intracranial mass, acute territorial ischemia or abnormal extra-axial collection. Unchanged ventriculomegaly, out of proportion to the degree of parenchymal atrophy. Mild white matter hypodensities are stable. The calvarium is intact. The paranasal sinuses, mastoid air cells, and middle ear cavities are clear. IMPRESSION: 1. No acute intracranial abnormality. 2. Unchanged ventriculomegaly. ACT 112: Negative or not required by law. The above report was generated using voice recognition software. It may contain grammatical, syntax or spelling errors. Electronically signed by: Vince Brito M.D. 06/07/2023 9:59 AM Discharge Plan Visit Data Chief Complaint: Fall ED Provider: Nayan Carlson Discharge Problem: Acute alteration in mental status, Fall, Head injury, Influenza A Patient Disposition: Being Evaluated by Hospitalist Forms Stand Alone [facility] Prescriptions Prescriptions: No Action levetiracetam [Keppra] 250 mg tablet 250 mg PO BID 90 Days Qty: 180 3RF phenytoin sodium extended [Dilantin Extended] 100 mg capsule 200 mg PO BID 90 Days Qty: 360 3RF fluticasone propionate 50 mcg/actuation spray,suspension 2 sprays INTNAS QPM famotidine 20 mg tablet 20 mg PO DAILY Jardiance 10 mg tablet 25 mg PO DAILY atorvastatin 40 mg tablet 40 mg PO HS glimepiride 2 mg tablet 2 mg PO QAM metformin 500 mg tablet extended release 24 hr 1,000 mg PO BID Women's One Daily 18 mg iron-400 mcg-500 mg Ca Tablet 1 tab PO QAM vitamin B complex Tablet 1 tab PO QAM polyethylene glycol 3350 [Miralax] 17 gram powder in packet 17 g PO BID Rx Instructions: HOLD IF HAS DIARRHEA ammonium lactate 12 % cream 1 applic TOPICAL QAM Rx Instructions: Apply to feet. docusate sodium [Colace] 100 mg Capsule 100 mg PO BID clozapine 200 mg tablet 600 mg PO HS glimepiride 1 mg Tablet 1 mg PO DIRECTED PRN (Reason: BSG >300.) food supplemt, lactose-reduced Liquid 1 ea PO QAM Rx Instructions: IF DOESN'T TAKE WITH BREAKFAST, GIVE FOR LUNCH acetaminophen [Tylenol Extra Strength] 500 mg Tablet 1,000 mg PO Q8H Qty: 30 0RF triamcinolone acetonide 0.1 % cream 1 applic TOPICAL BID PRN (Reason: Rash) Rx Instructions: apply to right buttocks prn rash valacyclovir 500 mg Tablet 500 mg PO DAILY Calcium Citrate + D 200 - 315 mcg PO DAILY Rx Instructions: two tablets daily albuterol sulfate [Ventolin HFA] 90 mcg/actuation Hfa Aerosol Inhaler 2 puff inhalation QIDR PRN (Reason: shortness of breath or wheezing) Qty: 6.7 0RF Advanced Probiotic 625 mg (10 billion cell) Capsule 2 cap PO DAILY Qty: 10 0RF Robitussin Cough-Chest Samm DM 5-100 mg/5 mL Liquid 10 ml PO Q6H PRN (Reason: cough) Qty: 118 0RF doxycycline hyclate 100 mg Capsule 100 mg PO Q12H Qty: 9 0RF Referrals Referrals: Delmy Jacobsen PA-C [Primary Care Provider] - Discharge Problem: Fall Qualifiers: Encounter type: initial encounter Qualified Code(s): W19.XXXA - Unspecified fall, initial encounter Head injury Qualifiers: Encounter type: initial encounter Qualified Code(s): S09.90XA - Unspecified injury of head, initial encounter
[2023-06-07] MEDS ORDERED: SODIUM CHLORIDE 0.9% 500 ML IV SCH (09:00)
[2023-06-07 09:44] LABS: Basophils # (auto) 0.02 K/uL (0.00-0.20); Basophils % (auto) 0.3 %; Eosinophils # (auto) 0.21 K/uL (0.00-0.50); Eosinophils % (auto) 3.4 %; Hematocrit (blood only) 50.7 % (37.0-47.0); Immature Granulocytes # (auto) 0.03 K/uL (0.01-0.20); Immature Granulocytes % (auto) 0.5 %; Lymphocytes # (auto) 0.41 K/uL (1.20-3.40); Lymphocytes % (auto) 6.6 %; Mean Corpuscular Hemoglobin 31.3 pg (25.0-34.0); Mean Corpuscular Hgb Conc 33.5 g/dL (32.0-36.0); Mean Corpuscular Volume 93.4 fL (80.0-100.0); Mean Platelet Volume 11.2 fL (9.4-12.4); Monocytes # (auto) 0.49 K/uL (0.11-0.59); Monocytes % (auto) 7.9 %; Neutrophils # (auto) 5.06 K/uL (1.40-6.50); Neutrophils % (auto) 81.3 %; Platelet Count 119 K/uL (130-400); RDW Coefficient of Variation 15.1 % (11.5-14.5); Red Blood Count 5.43 M/uL (4.20-5.40); White Blood Count 6.22 K/ul (4.8-10.8)
[2023-06-07 09:58] LABS: Base Excess VBG -0.9 mEq/L; HCO3 VBG 26 mmol/L; Oxygen Saturation VBG 62.6 %; PCO2 VBG 50 mmHg (38-50); PO2 VBG 38 mmHg; pH VBG 7.32 (7.36-7.41)
[2023-06-07] MEDS ORDERED: SODIUM CHLORIDE 0.9% 1,000 ML IV ONE (09:59)
--- NOTE | 2023-06-07 10:01 | CT Scan Report ---
CT head/brain wo con CLINICAL HISTORY: 63 years-old Female with ams. Acutely altered mental status TECHNIQUE: Multiple axial CT images of the head were obtained without contrast. A dose lowering tech nique was utilized adhering to the principles of ALARA. COMPARISON: 05/17/[address], brain MRI 05/18/2023 FINDINGS: No acute intracranial hemorrhage, midline shift, intracranial mass, acute territorial ischemia or abn ormal extra-axial collection. Unchanged ventriculomegaly, out of proportion to the degree of parenchy mal atrophy. Mild white matter hypodensities are stable. The calvarium is intact. The paranasal sinuses, mastoid air cells, and middle ear cavities are clear . IMPRESSION: 1. No acute intracranial abnormality. 2. Unchanged ventriculomegaly. ACT 112: Negative or not required by law. The above report was generated using voice recognition software. It may contain grammatical, syntax o r spelling errors. Electronically signed by: Vince Brito M.D. 06/07/2023 9:59 AM
--- NOTE | 2023-06-07 10:01 | CT Scan Report ---
CT OF THE CERVICAL SPINE WITHOUT CONTRAST CLINICAL HISTORY: fall COMPARISON STUDY: Cervical spine CT September 20, 2006. TECHNIQUE: Helical axial images of the cervical spine were obtained without IV contrast. Sagittal a nd coronal reconstructions were viewed. Automated exposure control was utilized for the study. A do se lowering technique was utilized adhering to the principles of ALARA. FINDINGS: Alignment of the cervical spine is anatomic. Vertebral body heights are maintained. No acut e cervical spine fracture or subluxation is present. There is no prevertebral edema. Facet joints are intact. Mild multilevel degenerative disc disease and facet arthrosis is present. Slight loss of he ight of the superior endplate of T2 is chronic. Dilatation of visualized portions of the esophagus is similar to prior cervical spine CT. IMPRESSION: No acute cervical spine fracture or subluxation. ACT 112: Negative or not required by law. Electronically signed by: Jose Srinivasan M.D. 06/07/2023 10:00 AM
[2023-06-07 10:05] LABS: INR 0.9 (0.9-1.1); Partial Thromboplastin Ratio 0.9; Partial Thromboplastin Time 25 Seconds (21-31); Prothrombin Time 10.3 Seconds (9.0-12.0)
--- NOTE | 2023-06-07 10:15 | XRay Report ---
XR chest 1V portable HISTORY: 63 years-old Female weakness COMPARISON: Chest radiograph 05/17/2023 TECHNIQUE: AP view of the chest FINDINGS: Cardiomediastinal and hilar silhouettes are within normal limits. Mild gaseous distention of the stom ach. No pneumothorax, pleural effusion or airspace consolidation. Bones of the chest appear grossly i ntact. IMPRESSION: No acute process. ACT 112: Negative or not required by law. The above report was generated using voice recognition software. It may contain grammatical, syntax o r spelling errors. Electronically signed by: Vince Brito M.D. 06/07/2023 10:14 AM
[2023-06-07 10:18] LABS: Alanine Aminotransferase 52 U/L (7-52); Albumin Globulin Ratio 1.4 (0.9-2); Albumin Level 4.9 gm/dl (3.4-5.0); Alkaline Phosphatase 130 U/L (34-104); Anion Gap 11 (3-11); BUN Creatinine Ratio 20.5 (10-20); Bilirubin,Total 0.4 mg/dl (0.2-1.0); Blood Urea Nitrogen 15 mg/dl (6-23); Calcium 9.4 mg/dl (8.6-10.3); Carbon Dioxide 24 mmol/L (21-32); Chloride 101 mmol/L (98-107); Creatine Kinase 73 U/L (26-192); Est GFR (Non-African American) 88.9 ml/min; Globulin 3.4 gm/dl (2.5-4.0); Glucose 219 mg/dl (70-99(Fasting)); Magnesium 2.1 mg/dl (1.7-2.4); Sodium 136 mmol/L (136-145); Total Protein 8.3 gm/dl (6.0-8.3)
[2023-06-07 10:27] LABS: Potassium 5.3 mmol/L (3.5-5.1)
[2023-06-07 10:38] LABS: Troponin I High Sensitivity 3.8 pg/ml (0-14)
[2023-06-07 10:48] LABS: Thyroid Stimulating Hormone 1.014 uIu/ml (0.300-4.500)
--- OUTSIDE RECORDS SUMMARY | 2023-06-07 10:52 | External Medical Summary ---
Author Name Unknown Address Unknown Organization K09:[facility] [place] [address] Laboratory Report Ordering Provider Test Date Status FREDA REINA 05/26/2023 11:38:38 Final Observation Date Value Abnormality Reference (Units ) Status WBC, Total 05/26/2023 11:38:38 9.59 4.00-10.8 0 (K/uL) Final RBC 05/26/2023 11:38:38 4.99 3.85-5.15 (M/uL) Final Hemoglobin 05/26/2023 11:38:38 15.8 Above high normal 1 2.0-15.3 (g/dL) Final HCT 05/26/2023 11:38:38 46.7 Above high normal 36 .0-45.2 (%) Final MCV 05/26/2023 11:38:38 93.6 81.5-97.5 (fL) Final MCH 05/26/2023 11:38:38 31.7 27.0-34.0 (pg) Final MCHC 05/26/2023 11:38:38 33.8 32.0-36.0 (g/dL) Final RDW 05/26/2023 11:38:38 15.8 11.5-15.5 (%) Final Platelets 05/26/2023 11:38:38 163 140-400 (K /uL) Final MPV 05/26/2023 11:38:38 11.3 6.6-11.1 ( fL) Final Performing Location [facility] [place] [address]
--- OUTSIDE RECORDS SUMMARY | 2023-06-07 10:52 | External Medical Summary | Summary of Care ---
Author Name Unknown Organization [facility] Address [address] [place] [address] Phone [phone] Care Team Providers Care Hotel Housekeeper Name Role Phone Dheeraj NORWOOD MD, Shorty Baird Primary Care Provider [phone] Reason for Visit * Reason Comments eRx-Medication Refill Encounter Details Date Type Department Care Team (Late st Contact Info) Description 05/20/2023 Refill Family Practice [facility] [address] [place] [address] Shorty Chávez III, MD 200 [place] [address] Allergies Active Allergy Reactions Criticality Noted Date Comments Aspirin 08/05/2016 Depakote Er Unknown 09/12/2007 Salicylates Unknown 10/30/2003 aspirin documented as of this encounter (statuses as of 05/24/2023) Medications Medication Sig Dispensed Refills Start Date End Date Status LEVETIRACETAM 250 MG PO TABS 1 tab twwice daily 0 Active Blood Glucose Monitoring Suppl (Roto[employer] ULTRA SYSTEM) W/DEVICE KITIndications:Type 2 diabetes mellitus with hemoglobin A1c goal of less than 7.0% ([facility]) Use as directed 4 times a day as needed for Hyperglycemia (high sugar) or Hypoglycemia (low sugar). f E11.9 1 Kit 0 017 Active MEDICAL INSTRUCTIONSIndications :Type 2 diabetes mellitus with hemoglobin A1c goal of less than 7.0% (HCC) Check glucose daily before supper. May skip on days of outings. May check if signs or symptoms of low blood sugar. (may refer to handout) 1 Each 1 017 Active cloZAPine 200 MG Oral Tablet 3 tabs at night 90 Tablet 5 022 Active Depend Pant Sm/MedIndications:Urina ry incontinence, unspecified type As needed 140 Each 022 Active Depend Pant Large As needed 144 Each 022 Active Triamcinolone Acetonide 0.1 % External Cream (Aristocort)Indications :Ear lesion Apply topically to affected area 2 times a day as needed for Other (rash). To affected area. 15 g 5 023 Active Phenytoin Sodium Extended 100 MG Oral Capsule (Dilantin) Take 2 Capsules by mouth in the morning and 2 Capsules before bedtime. 0 Active Empagliflozin 25 MG Oral Tablet (Jardiance) Take 1 Tablet by mouth in the morning. 90 Tablet 2 023 Active Boost 100 Calorie Smart Oral Liquid DAILY IN THE MORNING 0 023 Active Famotidine 40 MG Oral Tablet (Pepcid) Take 1 Tablet by mouth at bedtime. 30 Tablet 11 023 Active Glimepiride 1 MG Oral Tablet (Amaryl) Take one tablet daily in addition to Glimepiride 2mg if blood sugar is greater than 300. 30 Tablet 5 023 Active Ammonium Lactate 12 % External Cream (Lac-Hydrin) Apply to feet once daily 385 g 3 023 Active One-A-Day Womens Oral Tablet TAKE 1 TABLET BY MOUTH ONCE DAILY (DX: FOR GENERAL HEALTH) 30 Tablet 11 023 Active valACYclovir HCl 500 MG Oral Tablet (Valtrex)Indications:He rpes simplex disease Take 1 Tablet by mouth in the morning. 30 Tablet 11 023 Active OneTouch Ultra In Vitro Strip (Glucose Blood)Indications:Type 2 diabetes mellitus with hemoglobin A1c goal of less than 7.0% ([facility]) TEST BLOOD SUGAR before breakfast and supper FOR DIABETES 200 Strip 2 023 Active Fluticasone Propionate 50 MCG/ACT Nasal Suspension (Flonase)Indications:[place] maxillary sinusitis, recurrence not specified INSTILL 2 SPRAYS INTO EACH NOSTRIL ONCE DAILY FOR ALLERGIES 16 g 5 023 Active Polyethylene Glycol 3350 17 GM/SCOOP Oral Powder (Miralax) MIX 1 CAPFUL (17GM) WITH 8OZ OF FLUID AND DRINK Twice DAILY FOR CONSTIPATION HOLD FOR LOOSE STOOLS OR DIARRHEA 476 g 5 023 Active Calcium Citrate-Vitamin D 200-3.125 MG-MCG Oral Tablet Take 2 Tablets by mouth in the morning. 0 Active Accu-Chek Safe-T Pro LancetsIndications:Type 2 diabetes mellitus with hemoglobin A1c goal of less than 7.0% (HCC) USE TO TEST BLOOD SUGAR twice DAILY FOR DM 200 Each 1 023 Active metFORMIN HCl ER 500 MG Oral Tablet Extended Release 24 Hour (Glucophage XR) TAKE 2 TABLETS (1000MG) BY MOUTH TWICE DAILY FOR DIABETES TO BE BUBBLE PACKED. 124 Tablet 11 023 Active Atorvastatin Calcium 40 MG Oral Tablet (Lipitor)Indications:Pu re hypercholesterolemia TAKE 1 TABLET BY MOUTH AT BEDTIME (DX: FOR CHOLESTEROL) 31 Tablet 11 023 Active Docusate Sodium 100 MG Oral Capsule (Colace)Indications:Con stipation, unspecified constipation type TAKE 1 CAPSULE BY MOUTH TWICE DAILY (DX: CONSTIPATION) 62 Capsule 11 023 Active Glimepiride 2 MG Oral Tablet (Amaryl)Indications:Typ e 2 diabetes mellitus with hemoglobin A1c goal of less than 7.0% (HCC) TAKE 1 TABLET BY MOUTH ONCE DAILY WITH FIRST MAIN MEAL OF THE DAY (DX: DIABETES) 31 Tablet 11 023 Active B Complex-C Oral Tablet (Therapeutic B Complex w/C) TAKE 1 TABLET BY MOUTH EVERY MORNING 31 Tablet 11 024 Active Super B Complex/Vitamin C Oral Tablet Take 1 Tablet by mouth in the morning. 30 Tablet 0 023 2023 Discontinued documented as of this encounter (statuses as of 05/24/2023) Active Problems Problem Noted Date Diagnosed Date [...] as of this encounter (statuses as of 05/24/2023) Resolved Problems Problem Noted Date Diagnosed Date Resolved Date Constipation 09/10/2012 03/07/2018 Overview: ICD-10 update of inactive term ACTIVE CASE MANAGEMENT Keke Solis RN [phone] 01/25/2008 03/03/2010 Type 2 diabetes mellitus wit h hemoglobin A1c goal of less than 7.0% 10/30/2003 03/14/2009 Overview: Per Diabetes Taxonomy. ICD-10 update of inactive term Intellectual disability 10/30/200302/15 Overview: ICD-10 update of inactive term DM type 2, not at goal 10/30/200309/11 Psychotic disorder 10/30/2003 0 documented as of this encounter (statuses as of 05/24/2023) Immunizations Name Administration Dates Next Due COVID-19 mRNA, LNP-s, No Pre serve, 2-Dose Series (Moderna) 07/10/2020,06/12/2020 COVID-19, mRNA, LNP-s, PF, B ooster, 100mcg/0.5mg (Moderna) 09/18/2021,04/01/2021 Covid-19, Mrna, Lnp-s, Pf, B ivalent, 50 Mcg, IM, 12 yrs and above (Moderna) 03/11/2022 Hepatitis B, 20+ yrs 09/10/2014,03/08/2014,02/06 PPD 03/09/2022, 0,03/08/2019,03/04,02/14/2015,01/31/2013,01/25/2012 ,03/26/2010,09/21/2008 Pneumococcal Conjugate Vacci ne, 20-valent ([id number]) 03/09/2022 Pneumococcal Polysaccharide PPV23 (Pneumovax) 09/16/2005 Seasonal [...] encounter Miscellaneous Notes * Telephone Encounter - Shorty Chávez III, MD - 05/24/2023 7:59 AM ESTSigned Prescriptions: Disp Refills B Complex-C Oral Tablet (Therapeutic B Com*31 Tab*11 Sig: TAKE 1TABLET BY MOUTH EVERY MORNINGAuthorizing Provider: SHORTY CHÁVEZ III * Telephone Encounter - Hussein Mckinley [facility] - 05/21/2023 3:48 PM ESTPending Prescriptions: Disp Refills B Complex-C Oral Tablet [Pharmacy Med Name*31 Tab*11 Sig: TAKE 1 TABLET BY MOUTH EVERY MORNING * Telephone Encounter - Hussein Mckinley [facility] - 05/21/2023 3:48 PM EST Refill pharmacists currently not authorized to approve refills for the pended medication(s) per refill protocol. Please approve if appropriate. Thanks, Hussein Mckinley, R.Ph. Clinical Pharmacist [facility] [phone] 05/21/2023,3:48 PM Pending Prescriptions: Disp Refills B Complex-C Oral Tablet [Pharmacy Med Name*31 Tab*11 Sig: TAKE 1 TABLET BY MOUTH EVERY MORNING Last Visit: 05/04/2023 (in office), Visit date not found (telemedicine) Next Visit: 05/26/2023 If no future appointments scheduled, and last appointment is greater than a year ago, please schedule patient for a follow-up appointment Last date the medication was ordered: 02-12-23 Pharmacy: [facility] [place] [address] [address] [facility] Is this request for a controlled substance?No Urine Drug Screen:No results found. However, due to the size of the patient record, not all encounters were searched. Please check Results Review for a complete set of results. Patient Phone Numbers Labs: Lab Results Component Value Date/Time CREAT 0.6 01/19/2023 01:21 PM CREAT 0.6 11/08/2019 09:46 AM POTASSIUM 4.0 01/19/2023 01:21 PM POTASSIUM 4.4 11/08/2019 09:46 AM TSH 1.09 09/21/2022 09:30 AM TSH 1.080 07/17/2018 12:00 AM TSH 0.77 12/24/2011 03:40 PM LDLCALC 35 02/24/2023 12:51 PM LDLCALC 35 10/20/2019 11:27 AM LDLDIRECT 36 10/20/2019 11:27 AM LDLDIRECT NOT APPLICABLE 10/20/2019 11:27 AM ALT 40 (H) 01/19/2023 01:21 PM ALT 34 02/06/2019 11:21 AM HGBA1C 6.1 (H) 02/24/2023 12:51 PM HGBA1C 6.7 (H) 07/06/2021 12:00 AM HGBA1C 5.8 (H) 04/22/2020 09:29 AM documented in this encounter Plan of Treatment Upcoming Encounters Date Type Department Care Team (Late st Contact Info) Description 05/26/2023 11:00 AM EST Office Visit [facility] [address] [place] [address] Shorty Chávez III, MD [address] [place] [address] 06/08/2023 11:00 AM EST Office Visit [facility] [address] [place] [address] Delmy Jacobsen PA-C [address] [place] [address] 09/09/2023 11:20 AM EDT Office Visit [facility] [address] [place] [address] Delmy Jacobsen PA-C [address] [place] [address] 02/15/2024 8:40 AM EDT Office Visit [facility] [address] [place] [address] Delmy Jacobsen PA-C [address] [place] [address] [address] Health Maintenance Due Date Last Done Comments [...] 05/17, 03/04/2017, Additional history exists Albumin/Creatinine Ratio 08/22/20232 023, 07/15/2021, 10/20/2019, Additional history exists HbA1c 08/26/2023 02/24/2023, 05/17, 02/26/2022, Additional history exists B-12 10/24/2023 10/23/2022, 040 11/2022, 03/12/2021, Additional history exists GFR 01/20/2024 01/19/2023, 11/14, 11/23/2022, Additional history exists Mammogram 01/22/2024 01/21/2023, 090 10/2021, 01/13/2021, Additional history exists Diabetic Foot [...] D LEVEL ONCE IN A LIFETIME-USE SMARTSET# [id number] Completed 10/23/2022, 07/23/2022 Influenza Vaccine (FLU shot) Completed , 02/04/2022, 01/21/2021, Additional history exists GARDASIL-HPV IMMUNIZATION SERIES Aged Out No longer eligible based on patient's age to complete this topic MENINGOCOCCAL (MENACTRA/MENVEO) Aged Out No longer eligible based on patient's age to complete this topic documented as of this encounter Medical Devices Not on filedocumented as of this encounter Care Teams Hotel Housekeeper Relationship Specialty Start Date End Date Shorty Chávez III, MD 200 [place] [address] PCP - General Family Medicine 07/20/18 documented as of this encounter
--- OUTSIDE RECORDS SUMMARY | 2023-06-07 10:52 | External Medical Summary ---
Author Name Unknown Address Unknown Organization K09:[facility] [place] [address] Laboratory Report Ordering Provider Test Date Status FREDA REINA 05/26/2023 11:38:38 Final Observation Date Value Abnormality Reference (Units ) Status SYNC LEUKOCYTES IN BLOOD BY AUTOMATED COUNT 05/26/2023 11:38:38 9.59 4.00-10.80 (K/uL) Final Segs 05/26/2023 11:38:38 74.3 40.0-75.0 (%) Final Lymphs % 05/26/2023 11:38:38 15.3 Below low normal 18.0-42.0 (%) Final Monos 05/26/2023 11:38:38 10.1 1.0-11.0 (%) Final Eosinophils 05/26/2023 11:38:38 0.0 0.0-6.0 (%) Final Basos 05/26/2023 11:38:38 0.3 0.0-2.0 (%) Final Absolute Segs 05/26/2023 11:38:38 7.12 1.80-7.70 (K/uL) Final Lymphs, absolute 05/26/2023 11:38:38 1.47 1.00-4.80 (K/ul) Final Monos, Abs 05/26/2023 11:38:38 0.97 0.00-1.10 (K/uL) Final Eos, Abs 05/26/2023 11:38:38 0.00 0.00-0.70 (K/uL) Final Basos, Abs 05/26/2023 11:38:38 0.03 0.00-0.20 (K/uL) Final Performing Location [facility] [place] [address]
--- OUTSIDE RECORDS SUMMARY | 2023-06-07 10:52 | External Medical Summary | Summary of Care ---
Author Name Unknown Organization [facility] Address [address] [place] [address] Phone [phone] Care Team Providers Care Dog Control Officer Name Role Phone Dheeraj NORWOOD MD, Vitor Baird Primary Care Provider [phone] Reason for Visit * Reason Comments Outpatient Testing Encounter Details Date Type Department Care Team (Late st Contact Info) Description 05/26/2023 11:40 AM EST Laboratory Laboratory [facility] [address] [place] [phone] [facility] 200 [place] [address] Encounter for long-term (current) use of other medications Allergies Active Allergy Reactions Criticality Noted Date Comments Aspirin 08/05/2016 Depakote Er Unknown 09/12/2007 Salicylates Unknown 10/30/2003 aspirin documented as of this encounter (statuses as of 05/26/2023) Medications Medication Sig Dispensed Refills Start Date End Date Status LEVETIRACETAM 250 MG PO TABS 1 tab twwice daily 0 Active Blood Glucose Monitoring Suppl (HCI ULTRA SYSTEM) W/DEVICE KITIndications:Type 2 diabetes mellitus [...] the morning. 30 Tablet 11 3 Active OneTouch Ultra In Vitro Strip [...] (DX: DIABETES) 31 Tablet 11 3 Active B Complex-C Oral Tablet (Therapeutic B Complex w/C) TAKE 1 TABLET BY MOUTH EVERY MORNING 31 Tablet 11 4 Active documented as of this encounter (statuses as of 05/26/2023) Active Problems Problem Noted Date Diagnosed Date [...] as of this encounter (statuses as of 05/26/2023) Resolved Problems Problem Noted Date Diagnosed Date Resolved Date Constipation 09/10/2012 03/07/2018 Overview: ICD-10 update of inactive term ACTIVE CASE MANAGEMENT Keke Solis RN [phone] 01/25/2008 03/03/2010 Type 2 diabetes mellitus wit h hemoglobin A1c goal of less than 7.0% 10/30/2003 03/14/2009 Overview: Per Diabetes Taxonomy. ICD-10 update of inactive term Intellectual disability 10/30/200302/15 Overview: ICD-10 update of inactive term DM type 2, not at goal 10/30/200309/11 Psychotic disorder 10/30/2003 0 documented as of this encounter (statuses as of 05/26/2023) Immunizations Name Administration Dates Next Due COVID-19 mRNA, LNP-s, No Pre serve, 2-Dose Series (Moderna) 07/10/2020,06/12/2020 COVID-19, mRNA, LNP-s, PF, B ooster, 100mcg/0.5mg (Moderna) 09/18/2021,04/01/2021 Covid-19, Mrna, Lnp-s, Pf, B ivalent, 50 Mcg, IM, 12 yrs and above (Moderna) 03/11/2022 Hepatitis B, 20+ yrs 09/10/2014,03/08/2014,02/06 PPD 03/09/2022, 0,03/08/2019,03/04,02/14/2015,01/31/2013,01/25/2012 ,03/26/2010,09/21/2008 Pneumococcal Conjugate Vacci ne, 20-valent ([id number]) 03/09/2022 Pneumococcal Polysaccharide PPV23 (Pneumovax) 09/16/2005 Seasonal [...] on file documented as of this encounter Plan of Treatment Upcoming Encounters Date Type Department Care Team (Late st Contact Info) Description 06/08/2023 11:00 AM EST Office Visit [facility] [address] [place] [address] Delmy Jacobsen PA-C [address] [facility] [place] [address] 09/09/2023 11:20 AM EDT Office Visit [facility] [address] [place] [address] Delmy Jacobsen PA-C [address] [place] [address] 02/15/2024 8:40 AM EDT Office Visit [facility] [place] [address] [place] [address] [address] Delmy Jacobsen PA-C [address] [place] [address] [address] Health Maintenance Due Date Last Done Comments [...] 11/23/2022, Additional history exists Mammogram 01/22/2024 01/21/2023, 10/2021, 01/13/2021, Additional history exists Diabetic Foot Exam 03/10/2024 03/10/2023, 0 11/06/2021, 03/11/2020, Additional history exists DXA Scan 04/06/2025 04/06/2023 Lipid Panel 02/25/2028 02/24/2023, 08/1 , 10/20/2019, Additional history exists DTaP,Tdap,and Td Vaccines [...] D LEVEL ONCE IN A LIFETIME-USE SMARTSET# [id number] Completed 10/23/2022, 07/23/2022 Influenza Vaccine (FLU shot) Completed , 02/04/2022, 01/21/2021, Additional history exists GARDASIL-HPV IMMUNIZATION SERIES Aged Out No longer eligible based on patient's age to complete this topic MENINGOCOCCAL (MENACTRA/MENVEO) Aged Out No longer eligible based on patient's age to complete this topic documented as of this encounter Medical Devices Not on filedocumented as of this encounter Procedures Procedure Name Priority Date/Time Associated Diagnosis Comments DIFFERENTIAL, AUTOMATED Routine 05/26/2023 11:38 AM EST Encounter for long-term (current) use of other medications CBC Routine 05/26/2023 11:38 AM EST Encounter for long-term (current) use of other medications CBC Routine 05/26/2023 11:38 AM EST Encounter for long-term (current) use of other medications documented in this encounter Results * (ABNORMAL) DIFFERENTIAL, AUTOMATED (05/26/2023 11:38 AM EST) WBC 9.59 4.00 - 10.80 K/uL 05/26/2023 11:48 AM EST [facility] 56-02 Neutrophils % 74.3 40.0 - 75.0 % 05/26/2023 11:48 AM [facility] 56-02 Lymphocytes % 15.3(L) 18.0 - 42.0 % 05/26/2023 11:48 AM EST [facility] 56-02 Monocytes % 10.1 1.0 - 11.0 % 05/26/2023 11:48 AM EST [facility] 56-02 Eosinophils % 0.0 0.0 - 6.0 % 05/26/2023 11:48 AM EST [facility] 56-02 Basophils % 0.3 0.0 - 2.0 % 05/26/2023 11:48 AM [facility] 56-02 Absolute Neutrophils 7.12 1.80 - 7.70 K/uL 05/26/2023 11:48 AM [facility] 56-02 Absolute Lymphocytes 1.47 1.00 - 4.80 K/ul 05/26/2023 11:48 AM [facility] 56-02 Absolute Monocytes 0.97 0.00 - 1.10 K/uL 05/26/2023 11:48 AM [facility] 56-02 Absolute Eosinophils 0.00 0.00 - 0.70 K/uL 05/26/2023 11:48 AM [facility] 56-02 Absolute Basophils 0.03 0.00 - 0.20 K/uL 05/26/2023 11:48 AM [facility] 56-02 Blood Venous blood specimen / Unknown Venipuncture / Unknown 05/26/2023 11:38 AM EST 05/26/2023 11:38 AM EST Betsy Marroquin MD LAB BLOOD ORDERAB LES [facility] 56-[address] [place] [address] * (ABNORMAL) CBC (05/26/2023 11:38 AM EST) WBC 9.59 4.00 - 10.80 K/uL 05/26/2023 11:48 AM [facility] 56- RBC 4.99 3.85 - 5.15 M/uL 05/26/2023 11:48 AM [facility] 56- HGB 15.8(H) 12.0 - 15.3 g/dL 05/26/2023 11:48 AM [facility] 56- HCT 46.7(H) 36.0 - 45.2 % 05/26/2023 11:48 AM [facility] 56- MCV 93.6 81.5 - 97.5 fL 05/26/2023 11:48 AM [place] [address]- MCH 31.7 27.0 - 34.0 pg 05/26/2023 11:[address] MCHC 33.8 32.0 - 36.0 g/dL 05/26/2023 11:[address] RDW 15.8 11.5 - 15.5 % 05/26/2023 11:48 AM [facility] 56 PLT 163 140 - 400 K/uL 05/26/2023 11:48 AM [facility] 56- MPV 11.3 6.6 - 11.1 fL 05/26/2023 11:48 AM [facility] 56- Blood Venous blood specimen / Unknown Venipuncture / Unknown 05/26/2023 11:38 AM EST 05/26/2023 11:38 AM EST Betsy Marroquin MD LAB BLOOD ORDERAB L[facility] [address] documented in this encounter Visit Diagnoses Diagnosis Encounter for long-term (current) use of other medications documented in this encounter Care Teams Dog Control Officer Relationship Specialty Start Date End Date [facility]itor Esqueda III, MD [facility] [address] P[facility] - General Family Medicine 07/20/18 documented as of this encounter
--- OUTSIDE RECORDS SUMMARY | 2023-06-07 10:52 | External Medical Summary | Summary of Care ---
Author Name Unknown Organization [facility] Address [address] [place] [address] Phone [phone] Care Team Providers Care Billet Straightener Name Role Phone Dheeraj NORWOOD MD, Vitor Baird Primary Care Provider [phone] Reason for Visit * Reason Onset Date Comments Medication Question 06/01/2023 Encounter Details Date Type Department Care Team (Late st Contact Info) Description 06/01/2023 Telephone Family Practice [facility] [address] [place] [address] Vitor Esqueda III, MD 200 [place] [address] Medication Question Allergies Active Allergy Reactions Criticality Noted Date Comments Aspirin 08/05/2016 Depakote Er Unknown 09/12/2007 Salicylates Unknown 10/30/2003 aspirin documented as of this encounter (statuses as of 06/02/2023) Medications Medication Sig Dispensed Refills Start Date End Date Status LEVETIRACETAM 250 MG PO TABS 1 tab twwice daily 0 Active Blood Glucose Monitoring Suppl ([employer] ULTRA SYSTEM) W/DEVICE KITIndications:Type 2 diabetes mellitus with hemoglobin A1c goal of less than 7.0% ([facility]) Use as directed 4 times a day as needed for Hyperglycemia (high sugar) or Hypoglycemia (low sugar). f E11.9 1 Kit 0 7 Active MEDICAL INSTRUCTIONSIndications: Type 2 diabetes mellitus with hemoglobin A1c goal of less than 7.0% ([facility]) Check glucose daily before supper. May skip on days of outings. May check if signs or symptoms of low blood sugar. (may refer to handout) 1 Each 1 7 Active cloZAPine 200 MG Oral Tablet 3 tabs at night 90 Tablet 5 2 Active Depend Pant Sm/MedIndications:Urinar y incontinence, unspecified type As needed 140 Each 2 Active Depend Pant Large As needed [...] DAILY (DX: FOR GENERAL HEALTH) 30 Tablet 3 Active valACYclovir HCl 500 MG Oral Tablet (Valtrex)Indications:Her pes simplex disease Take 1 Tablet by mouth in the morning. 30 Tablet 11 3 Active OneTouch Ultra In Vitro Strip (Glucose Blood)Indications:Type 2 diabetes mellitus with hemoglobin A1c goal of less than 7.0% ([facility]) TEST BLOOD SUGAR before breakfast [...] as of this encounter (statuses as of 06/02/2023) Active Problems Problem Noted Date Diagnosed Date [...] as of this encounter (statuses as of 06/02/2023) Resolved Problems Problem Noted Date Diagnosed Date Resolved Date Constipation 09/10/2012 03/07/2018 Overview: ICD-10 update of inactive term ACTIVE CASE MANAGEMENT Keke Solis RN [phone] 01/25/2008 03/03/2010 Type 2 diabetes mellitus wit h hemoglobin A1c goal of less than 7.0% 10/30/2003 03/14/2009 Overview: Per Diabetes Taxonomy. ICD-10 update of inactive term Intellectual disability 10/30/200302/15 Overview: ICD-10 update of inactive term DM type 2, not at goal 10/30/200309/11 Psychotic disorder 10/30/2003 0 documented as of this encounter (statuses as of 06/02/2023) Immunizations Name Administration Dates Next Due COVID-19 mRNA, LNP-s, No Pre serve, 2-Dose Series (Moderna) 07/10/2020,06/12/2020 COVID-19, mRNA, LNP-s, PF, B ooster, 100mcg/0.5mg (Moderna) 09/18/2021,04/01/2021 Covid-19, Mrna, Lnp-s, Pf, B ivalent, 50 Mcg, IM, 12 yrs and above (Moderna) 03/11/2022 Hepatitis B, 20+ yrs 09/10/2014,03/08/2014,02/06 PPD 03/09/2022, 0,03/08/2019,03/04,02/14/2015,01/31/2013,01/25/2012 ,03/26/2010,09/21/2008 Pneumococcal Conjugate Vacci ne, 20-valent ([id number]) 03/09/2022 Pneumococcal Polysaccharide PPV23 (Pneumovax) 09/16/2005 Seasonal [...] encounter Miscellaneous Notes * Telephone Encounter - Migdalia Zazueta LPN - 06/02/2023 10:02 AM EST I faxed D/c order as requested with confirmation. * Telephone Encounter - Dante Menezes, peripatologist - 06/01/2023 12:52 PM EST Pt and her nurse called stating [facility] needs DC orders for RX Loratadine and Oxybutynin. Please send those orders to pharmacy so they can stop send ing medication to pt. Thank You, Dante Menezes [facility] 06/01/2023, 12:53 PM documented in this encounter Plan of Treatment Upcoming Encounters Date Type Department Care Team (Late st Contact Info) Description 06/08/2023 11:00 AM EST Office Visit [address] [place] [address] Delmy Jacobsen PA-C [address] [facility] [place] [place] [address] 09/09/2023 11:20 AM EDT Office Visit [facility] 200 [facility] [place] [address] Delmy Jacobsen PA-C [address] [facility] [place] [place] [address] 02/15/2024 8:40 AM EDT Office Visit [facility] 200 [facility] [place] [address] Delmy Jacobsen PA-C [address] [place] [address] Health Maintenance Due Date Last Done Comments [...] D LEVEL ONCE IN A LIFETIME-USE SMARTSET# [id number] Completed 10/23/2022, 07/23/2022 Influenza Vaccine (FLU shot) Completed , 02/04/2022, 01/21/2021, Additional history exists GARDASIL-HPV IMMUNIZATION SERIES Aged Out No longer eligible based on patient's age to complete this topic MENINGOCOCCAL (MENACTRA/MENVEO) Aged Out No longer eligible based on patient's age to complete this topic documented as of this encounter Medical Devices Not on filedocumented as of this encounter Care Teams Billet Straightener Relationship Specialty Start Date End Date Dheeraj NORWOOD, Vitor Baird MD 200 [facility] [place] [address] PCP - General Family Medicine 07/20/18 documented as of this encounter
--- OUTSIDE RECORDS SUMMARY | 2023-06-07 10:52 | External Medical Summary | Summary of Care ---
Author Name Unknown Organization [facility] Address [address] [place] [address] Phone [phone] Care Team Providers Care Sr. Manager Marketing Name Role Phone Dheeraj NORWOOD MD, Vitor Baird Primary Care Provider [phone] Reason for Visit * Reason Onset Date Comments Hospital Follow-Up Hospital Follow-Up 05/26/2023 Encounter Details Date Type Department Care Team (Late st Contact Info) Description 05/26/2023 11:00 AM EST Office Visit [facility] [address] [place] [address] Vitor Esqueda III, MD [address] [place] [address] Hospital discharge follow-up*; Acute cough; Type 2 diabetes mellitus with hemoglobin A1c goal of less than 7.0% (HCC) Allergies Active Allergy Reactions Criticality Noted Date Comments Aspirin 08/05/2016 Depakote Er Unknown 09/12/2007 Salicylates Unknown 10/30/2003 aspirin documented as of this encounter (statuses as of 2023) Medications Medication Sig Dispensed Refills Start Date End Date Status LEVETIRACETAM 250 MG PO TABS 1 tab twwice daily 0 Active Blood Glucose Monitoring Suppl ([employer] ULTRA SYSTEM) W/DEVICE KITIndications:Type 2 diabetes mellitus with hemoglobin A1c goal of less than 7.0% (HCC) Use as directed 4 times a day as needed for Hyperglycemia (high sugar) or Hypoglycemia (low sugar). f E11.9 1 Kit 0 07/07/201 7 Active MEDICAL INSTRUCTIONSIndications: Type 2 diabetes mellitus with hemoglobin A1c goal of less than 7.0% ([facility]) Check glucose daily before supper. [...] hemoglobin A1c goal of less than 7.0% ([facility]) TEST BLOOD SUGAR before breakfast [...] as of this encounter (statuses as of 2023) Active Problems Problem Noted Date Diagnosed Date [...] as of this encounter (statuses as of 2023) Resolved Problems Problem Noted Date Diagnosed Date Resolved Date Constipation 09/10/2012 03/07/2018 Overview: ICD-10 update of inactive term ACTIVE CASE MANAGEMENT Keke Solis RN [phone] 01/25/2008 03/03/2010 Type 2 diabetes mellitus wit h hemoglobin A1c goal of less than 7.0% 10/30/2003 03/14/2009 Overview: Per Diabetes Taxonomy. ICD-10 update of inactive term Intellectual disability 10/30/200302/15 Overview: ICD-10 update of inactive term DM type 2, not at goal 10/30/200309/11 Psychotic disorder 10/30/2003 0 documented as of this encounter (statuses as of 2023) Immunizations Name Administration Dates Next Due COVID-19 mRNA, LNP-s, No Pre serve, 2-Dose Series (Moderna) 07/10/2020,06/12/2020 COVID-19, mRNA, LNP-s, PF, B ooster, 100mcg/0.5mg (Moderna) 09/18/2021,04/01/2021 Covid-19, Mrna, Lnp-s, Pf, B ivalent, 50 Mcg, IM, 12 yrs and above (Moderna) 03/11/2022 Hepatitis B, 20+ yrs 09/10/2014,03/08/2014,02/06 PPD 03/09/2022, 0,03/08/2019,03/04,02/14/2015,01/31/2013,01/25/2012 ,03/26/2010,09/21/2008 Pneumococcal Conjugate Vacci ne, 20-valent (Unyyuhs22) 03/09/2022 Pneumococcal Polysaccharide PPV23 (Pneumovax) 09/16/2005 Seasonal [...] Date Smoking Tobacco: Never Smokeless Tobacco: Never Tobacco Cessation:Counseling Given: Not Answered Alcohol Use Standard Drinks/Week Comments No 0 [...] Sign Reading Time Taken Comments Blood Pressure 103/68 05/26/2023 11:06 AM EST Pulse 97 05/26/2023 11:06 AM EST Temperature 35.9 C (96.6 F) 05/26/2023 11:[address] Respiratory Rate 16 05/26/2023 11:06 AM EST Oxygen Saturation - - Inhaled Oxygen Concentration - - Weight 55.8 kg (123 lb) 05/26/2023 11:06 AM EST Height - - Body Mass Index 19.85 01/28/2023 9:20 AM EDT documented in this encounter Progress Notes * Vitor Esqueda III, MD - 05/26/2023 11:11 AM EST Brittany Oneill is a 62 year old female. Chief Complaint Patient presents with Hospital Follow-Up Hospital Follow-Up HPI: Hospital discharge follow-up admitted May 17 discharged May 19 there was initial concern for a stroke had a cough chest x-ray was negative MRI negative had elevated lactic acid which resolved was given doxycycline cough has resolved no diarrhea no nausea vomiting no chest pain no current fever or chills appears back to baseline PMH: Patient Active Problem List Diagnosis Code PARANOID SCHIZO-CHRONIC F20.0 OTHER URINARY INCONTINENCE N39.498 Mild intellectual disability F70 Convulsions ([facility]) R56.9 Other specified types of schizophrenia, chronic condition F20.89 Type 2 diabetes mellitus with hemoglobin A1c goal of less than 7.0% ([facility]) E11.9 Choking due to food (regurgitated), initial encounter T17.320A, W44.F3XA Herpes dermatitis B00.89 Seizure disorder, simple partial, 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 epilepsy ([facility]) G40.109 Age-related osteoporosis without current pathological fracture M81.0 Current Outpatient Medications Medication Sig Dispense Refill LEVETIRACETAM 250 MG PO TABS 1 tab twwice daily Blood Glucose Monitoring Suppl ([employer] ULTRA SYSTEM) W/DEVICE KIT Use as directed [...] mouth in the morning. 30 Tablet 11 OneTouch Ultra In Vitro Strip (Glucose Blood) [...] OF THEDAY (DX: DIABETES) 31 Tablet 11 B Complex-C Oral Tablet (Therapeutic B Complex w/C) TAKE 1 TABLET BY MOUTH EVERY MORNING 31 Tablet 11 No current facility-administered medications [...] performed by Ryan Sauceda MD at [facility] COLONOSCOPY, DIAGNOSTIC (RECTUM) 02/03/2023 COLONOSCOPY FLEXIBLE PROXIMAL DIAGNOSTIC performed by Lilo Smith DO at [facility] DIABETIC EYE EXAM 06/21/2006 Glacoma suspect, large optic cups DIABETIC EYE EXAM 07/11/2009 no diabetic retinopathy EGD, FLEXIBLE, DIAGNOSTIC 08/19/2021 normal / ESOPHAGOGASTRODUODENOSCOPY (EGD), FLEXIBLE, TRANSORAL, DIAGNOSTIC performed by Lilo Smith DO at [facility] EGD, FLEXIBLE, DIAGNOSTIC 02/03/2023 ESOPHAGOGASTRODUODENOSCOPY (EGD), FLEXIBLE, TRANSORAL, DIAGNOSTIC performed by Lilo Smith DO at [facility] ELECTRIC MOTOR WINDER PAP SCREEN 10/15/2004 credit relationship manager exam at family planning INFORMATION 05/17/2005 Glaucoma suspect ou/no diabetic retinopathy, ptosis, bilateral MAMMOGRAM - BILATERAL 09/28/2006 benign findings, yearly mammograms appropriate, birad code 2 MAMMOGRAM SCREENING-BILATERAL 02/03/2005 normal Objective: The patient is a 62 year old female BP 103/68 | Pulse 97 | Temp 35.9 C (96.6 F) | Resp 16 | Wt 55.8 kg (123 lb) | LMP 09/30/2011 | BMI 19.85 kg/m | BSA 1.61 m General: alert, healthy, and no distress Eye Exam: PERRLA, extraocular movements intact, conjunctiva are pink and non- injected, sclera clear Oropharynx: no exudate, no erythema, lips, buccal mucosa, and tongue normal, and mucous membranes are moist Heart: regular rate & rhythm, no murmur, and no gallops Lungs: lungs clear to auscultation, no rhonchi rales rubs wheezes Extremities: no edema, no clubbing, no cyanosis ASSESSMENT: Z09 Hospital discharge follow-up (primary encounter diagnosis) R05.1 Acute cough E11.9 Type 2 diabetes mellitus with hemoglobin A1c goal of less than 7.0% ([facility]) PLAN: Finish out doxycycline RSV vaccine discussed encouraged Total time 36 minutes Follow up as needed. Vitor Esqueda III, MD documented in this encounter Plan of Treatment Upcoming Encounters Date Type Department Care Team (Late st Contact Info) Description 06/08/2023 11:00 AM EST Office Visit [facility] [address] [facility] [place] [address] Delmy Jacobsen PA-C [address] [place] [id number] 09/09/2023 11:20 AM EDT Office Visit [facility] [place] [facility] [place] [address] Delmy Jacobsen, CHRIS [address] [place] [id number] 02/15/2024 8:40 AM EDT Office Visit [facility] [address] [facility] [place] [address] Delmy Jacobsen, CHRIS [address] [place] [id number] Health Maintenance Due Date Last Done Comments [...] D LEVEL ONCE IN A LIFETIME-USE SMARTSET# [id number] Completed 10/23/2022, 07/23/2022 Influenza Vaccine (FLU shot) Completed , 02/04/2022, 01/21/2021, Additional history exists GARDASIL-HPV IMMUNIZATION SERIES Aged Out No longer eligible based on patient's age to complete this topic MENINGOCOCCAL (MENACTRA/MENVEO) Aged Out No longer eligible based on patient's age to complete this topic documented as of this encounter Medical Devices Not on filedocumented as of this encounter Visit Diagnoses Diagnosis Hospital discharge follow-up- Primary Other follow-up examination Acute cough Type 2 diabetes mellitus with hemoglobin A1c goal of less than 7.0% ([facility]) documented in this encounter Care Teams Sr. Manager Marketing Relationship Specialty Start Date End Date Vitor Esqueda III, MD [address] [place] [address] PCP - General Family Medicine 07/20/18 documented as of this encounter"
[2023-06-07 12:26] LABS: Influenza B virus by PCR Negative (Neg); RSV by PCR Negative (Neg); SARS CoV2 RNA(COVID-19) Ceph NEGATIVE (Negative)
[2023-06-07 12:33] LABS: Influenza A virus by PCR Positive (Neg)
--- NOTE | 2023-06-07 12:48 | History & Physical Report ---
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 Acute metabolic encephalopathy Influenza A Generalized weakness, lethargy and cough this morning, brought in by [facility] staff Head CT, CXR and cervical spine CT without evidence of any acute process Lactate and procal pending Received 1.5 L NSS in ED, continue gentle fluids at 80 ml/hr Starting Tamiflu Saturating at 95% on room air Continue Mucinex and antitussives, added loratadine daily Aspiration precautions PT OT as able Fall precautions Schizophrenia Chronic, stable Reports Auditory hallucinations at baseline Continue clozapine 600mg QPM Complex Partial Seizures Chronic, stable Follows Dr Marshall 01/22/2023, last seizure 2010 Continue Keppra 250mg BID and phenytoin 200 BID DM II Chronic, stable A1c 5.8 in May 2023 Hold home agents SSI while in-patient BSG AC HS GERD Chronic, stable Continue famotidine 40mg HS HLD Chronic, stable Continue statin Herpes Dermatitis Chronic, stable Continue Valacyclovir 500mg BID Hypertension Previously on lisinopril Currently not on meds Monitor BP DVT Ppx: SQ lovenox Code status: FULL PCP: CHRIS Jacobsen Dispo: Admitted to [facility] tele Patient seen in collaboration with Dr. Zheng. Please see addendum. History of Present Illness Chief Complaint: Encephalopathy, weakness Primary Care Provider: Delmy Jacobsen PA-C This is a 63yo F [facility] resident with a PMH of seizures, ambulatory dysfunction, cognitive dysfunction, schizophrenia, diabetes mellitus type 2 and other medical problems presents with ongoing confusion and generalized weakness. Patient is a very poor historian due to cognitive issues so most of the history is obtained from ER staff, caregiver at bedside and chart review. Was recently admitted to our service from 05/17-05/19 with lactic acidosis and acute bronchitis. Discharged on remainder of doxycycline course, which she completed on May 24. Was back to her baseline per staff until she was assisted getting her out of bed today but slid to the floor onto her backside. No LOC or head trauma reported. Has been less communicative than baseline with increased cough today as well as ongoing lethargy. At baseline she is alert and oriented to person and place but not to time. No other medical changes since last admission. Allergies Allergy/AdvReac Type Severity Reaction Status Date / Time divalproex sodium Allergy Unknown Unknown Verified 06/07/23 12:54 [From Depakote] salicylates Allergy Unknown Unknown Verified 06/07/23 12:54 valproic acid Allergy Unknown Unknown Verified 06/07/23 12:54 aspirin AdvReac Severe STOMACH Verified 06/07/23 12:54 ULCER BLEEDING Home Medications Medication Instructions Recorded Confirmed Type atorvastatin 40 mg tablet 40 mg PO HS 07/17/18 06/07/23 History glimepiride 2 mg tablet 2 mg PO QAM 07/17/18 06/07/23 History metformin 500 mg tablet,extended 1,000 mg PO BID 07/17/18 06/07/23 History release 24 hr multivit-iron 18 mg-folic acid 400 1 tab PO QAM 07/17/18 06/07/23 History mcg-calcium 500 mg-minerals tablet (Women's One Daily) vitamin B complex 1 tab PO QAM 08/25/18 06/07/23 History fluticasone propionate 50 2 sprays intranasal QPM 02/15/19 06/07/23 History mcg/actuation nasal spray,suspension ammonium lactate 12 % topical cream 1 applic topical QAM 05/21/19 06/07/23 History docusate sodium 100 mg capsule 100 mg PO BID 05/21/19 06/07/23 History (Colace) triamcinolone acetonide 0.1 % 1 applic topical BID PRN Rash 07/10/21 06/07/23 History topical cream clozapine 200 mg tablet 600 mg PO DAILY@199910/31/21 06/07/23 History valacyclovir 500 mg tablet 500 mg PO DAILY 02/18/22 06/07/23 History glimepiride 1 mg tablet 1 mg PO DIRECTED PRN BSG >300. 10/14/22 06/07/23 History levetiracetam 250 mg tablet 250 mg PO BID 90 days #180 tabs 10/15/22 06/07/23 Rx (Keppra) polyethylene glycol 3350 17 gram 17 g PO BID 10/19/22 06/07/23 History oral powder packet (Miralax) phenytoin sodium extended 100 mg 200 mg (2 x 100 mg) PO BID 90 days 12/14/22 06/07/23 Rx capsule (Dilantin Extended) #360 caps Calcium Citrate + D 200 - 315 mcg PO DAILY 02/11/23 06/07/23 History albuterol sulfate 90 mcg/actuation 2 puff inhalation QIDR PRN 03/03/23 06/07/23 Rx aerosol inhaler (Ventolin HFA) shortness of breath or wheezing #6.7 grams dextromethorphan-guaifenesin 5 10 ml PO Q6H PRN cough #118 mL 03/03/23 06/07/23 Rx mg-100 mg/5 mL oral liquid (Robitussin Cough-Chest Congestion DM) acetaminophen 500 mg tablet 1,000 mg PO Q8H PRN Pain 06/07/23 06/07/23 History (Tylenol Extra Strength) dextromethorphan-guaifenesin 30 1 - 2 tab PO Q12H PRN Nasal 06/07/23 06/07/23 History mg-600 mg tablet extended Congestion [id number] hr (Mucinex DM) diphenhydramine HCl 25 mg tablet 25 mg PO .Q4-6 PRN .allergy 06/07/23 06/07/23 History (Benadryl Allergy) empagliflozin 25 mg tablet 25 mg PO QAM 06/07/23 06/07/23 History (Jardiance) famotidine 40 mg tablet 40 mg PO HS 06/07/23 06/07/23 History nut.tx.gluc.intol,lac-free,soy 1 ea PO BID 06/07/23 06/07/23 History (Glucerna oral liquid) Past Med/Surg History Medical History Elevated lactic acid level Weakness AMS (altered mental status) DMII (diabetes mellitus, type 2) HSV (herpes simplex virus) anogenital infection Complex partial seizure Depression with anxiety Heart murmur Onychomycosis Hypertension Schizophrenia Surgical History History of colonoscopy Family History Mother Diabetes Other Seizures Social History Smoking Status: Never smoker Hx Alcohol Use: No Hx Substance Use: No Preferred Language: Chinese Communication Ability: Effective Communication Ability Comment: Intellectual Disability Visual Impairment: No Limitations Hearing Ability: Normal Education And Training Manager Required: Voice Beliefs That Will Affect Care: None marital status: Single Current Living Situation: Personal Care Facility Current Living Situation Comment: From [facility] current occupational status: disabled Feels Safe at Home: Yes Assistive Devices: Cane and Walker Review of Systems Review of Systems: Unobtainable due to cognitive status Physical Exam Physical Exam: Please see Dr. Zheng's addendum for physical exam. Results & Data Results & Data Vital Signs (Past 12 Hours) Vital Signs Temp Pulse Pulse Resp BP BP Pulse Ox 06/07/23 10:32 103 H 16 142/84 H 96 06/07/23 09:29 109 H 06/07/23 09:09 96 06/07/23 09:03 100 H 16 95 06/07/23 08:58 36.9 C 104 H 15 117/92 97 O2 Del Method 06/07/23 10:32 Room Air 06/07/23 09:29 06/07/23 09:09 Room Air 06/07/23 09:03 Room Air 06/07/23 08:58 Room Air Laboratory Results Short CBC 06/07/23 Range/Units 09:12 WBC 6.22 (4.8-10.8) K/ul Hgb 17.0 H (12.0-16.0) g/dl Hct 50.7 H (37.0-47.0) % Plt Count 119 L (130-400) K/uL BMP 06/07/23 06/07/23 09:12 09:45 Sodium 136 Potassium TNP 5.3 H Chloride 101 Carbon Dioxide 24 BUN 15 Creatinine 0.73 Glucose 219 H Calcium 9.4 Cardiac Enzymes 06/07/23 Range/Units 09:12 Total Creatine Kinase 73 (26-192) U/L Liver Function 06/07/23 06/07/23 Range/Units 09:12 09:45 Total Bilirubin 0.4 (0.2-1.0) mg/dl AST TNP 30 ALT 52 (7-52) U/L Alkaline Phosphatase 130 H (34-104) U/L Albumin 4.9 (3.4-5.0) gm/dl Diagnostic Findings Cervical Spine CT 06/07/23 08:51 CT OF THE CERVICAL SPINE WITHOUT CONTRAST CLINICAL HISTORY: fall COMPARISON STUDY: Cervical spine CT September 20, 2006. TECHNIQUE: Helical axial images of the cervical spine were obtained without IV contrast. Sagittal and coronal reconstructions were viewed. Automated exposure control was utilized for the study. A dose lowering technique was utilized adhering to the principles of ALARA. FINDINGS: Alignment of the cervical spine is anatomic. Vertebral body heights are maintained. No acute cervical spine fracture or subluxation is present. There is no prevertebral edema. Facet joints are intact. Mild multilevel degenerative disc disease and facet arthrosis is present. Slight loss of height of the superior endplate of T2 is chronic. Dilatation of visualized portions of the esophagus is similar to prior cervical spine CT. IMPRESSION: No acute cervical spine fracture or subluxation. ACT 112: Negative or not required by law. Electronically signed by: Jose Srinivasan M.D. 06/07/2023 10:00 AM Chest X-Ray 06/07/23 08:51 XR chest 1V portable HISTORY: 63 years-old Female weakness COMPARISON: Chest radiograph 05/17/2023 TECHNIQUE: AP view of the chest FINDINGS: Cardiomediastinal and hilar silhouettes are within normal limits. Mild gaseous distention of the stomach. No pneumothorax, pleural effusion or airspace consolidation. Bones of the chest appear grossly intact. IMPRESSION: No acute process. ACT 112: Negative or not required by law. The above report was generated using voice recognition software. It may contain grammatical, syntax or spelling errors. Electronically signed by: Vince Brito M.D. 06/07/2023 10:[address] 06/07/23 08:52 CT head/brain wo con CLINICAL HISTORY: 63 years-old Female with ams. Acutely altered mental status TECHNIQUE: Multiple axial CT images of the head were obtained without contrast. A dose lowering technique was utilized adhering to the principles of ALARA. COMPARISON: 05/17/[address], brain MRI 05/18/2023 FINDINGS: No acute intracranial hemorrhage, midline shift, intracranial mass, acute territorial ischemia or abnormal extra-axial collection. Unchanged ventriculomegaly, out of proportion to the degree of parenchymal atrophy. Mild white matter hypodensities are stable. The calvarium is intact. The paranasal sinuses, mastoid air cells, and middle ear cavities are clear. IMPRESSION: 1. No acute intracranial abnormality. 2. Unchanged ventriculomegaly. ACT 112: Negative or not required by law. The above report was generated using voice recognition software. It may contain grammatical, syntax or spelling errors. Electronically signed by: Vince Brito M.D. 06/07/2023 9:59 AM Supervising Physician Co-Signing Physician Notes History provided by Nursing facility staff Patient was noted to be very weak today when they tried to get her up to shower, she slid to the ground. No hitting head/trauma. She had a mild cough since last hospital stay but staff noticed increased cough today. Patient is drowsy but arousable, oriented to person only. At baseline she is alert and oriented to person, place and knows her . On exam, General: No acute distress, ill appearing Eyes: PERRL, conjunctivae normal, not pale, anicteric sclerae, EOM intact bilaterally ENMT: Appear congested Respiratory: Normal respiratory effort, no respiratory distress, lungs clear to auscultation Cardiovascular: Tachycardic, regular rhythm S1 S2 Gastrointestinal (Abdomen): Abdomen is not distended, soft, non-tender to palpation, no guarding, no palpable hepatosplenomegaly, normal bowel sounds Musculoskeletal: No pedal edema Neurologic: Drowsy but arousable and oriented to person only, No focal weakness, Follows commands Labs notable for Hb 17, K 5.3. Glucose 219, Alk P 130 Resp PCR + flu CXR did not show acute abnormalities CT head did not show acute abnormalities Influenza A Start tamiflu IVF Monitor resp status Loratadine daily Tylenol prn fever Hold home oral antidiabetics Aspiration precautions Continue home phenytoin I spent a total of 45 minutes coordinating, documenting and providing care for this patient excluding time spent in performance of separately billed services
[2023-06-07] MEDS ORDERED: guaiFENesin SUGAR FREE 100 MG/5 ML UDC PO STA (13:35)
[2023-06-07] MEDS ORDERED: OSELTAMIVIR PHOSPHATE 75 MG CAP PO STA (13:35)
[2023-06-07] MEDS ORDERED: SODIUM CHLORIDE 0.9% 1,000 ML IV STA (13:37)
[2023-06-07] MEDS: OSELTAMIVIR PHOSPHATE 75 MG CAP PO SCH ×2 (15:49→20:10)
[2023-06-07] MEDS ORDERED: POLYETHYLENE (MIRALAX) 17 GM PACK PO PRN (15:54)
[2023-06-07] MEDS ORDERED: ONDANSETRON INJ 2 MG/ML 2 ML VIAL IV PRN (15:54)
--- NOTE | 2023-06-07 16:35 | Electrocardiogram Report ---
Test Reason : Blood Pressure : / mmHG Vent. Rate : 111 BPM Atrial Rate : 111 BPM P-R Int : 124 ms QRS Dur : 088 ms QT Int : 322 ms P-R-T Axes : 057 -52 042 degrees QTc Int : 437 ms Sinus tachycardia Left axis deviation Incomplete right bundle branch block Abnormal ECG When compared with ECG of 17-MAY-2023 08:39, No significant change was found Confirmed by Leno Mccormick ([id number]) on 06/07/2023 4:34:58 PM Referred By: Confirmed By:Uriel Mccormick
[2023-06-07 18:09] LABS: Amphetamines+Metham, Urine Neg (Neg); Barbiturates, Urine Neg (Neg); Benzodiazepine, Urine Neg (Neg); Cocaine, Urine Neg (Neg); MDMA (Ecstacy), Urine Neg (Neg); Marijuana, Urine Neg (Neg); Methadone, Urine Neg (Neg); Opiate, Urine Neg (Neg); Phencyclidine, Urine Neg (Neg)
[2023-06-07 18:20] LABS: Appearance Urine Clear (Clear); Bilirubin Urine Negative (Negative); Blood Urine Negative (Negative); Color Urine Yellow; Glucose Urine UA 3+ (Negative); Ketones Urine 1+ (Negative); Leukocyte Esterase Urine Negative (Negative); Nitrite Urine Negative (Negative); Protein Urine Negative (Negative); Specific Gravity Urine 1.023 (1.000-1.030); Urobilinogen Urine Negative (Negative)
[2023-06-07] MEDS: guaiFENesin SUGAR FREE 100 MG/5 ML UDC PO PRN (20:10)
[2023-06-07] MEDS: ACETAMINOPHEN 325 MG TAB PO PRN (20:10)
[2023-06-07] MEDS ORDERED: TRIAMCINOLONE ACET 0.1% CR 15 GM TUBE TOP PRN (22:12)
[2023-06-07] MEDS ORDERED: ALBUTEROL HFA 8 GM INHALER INH PRN (22:12)
[2023-06-07] MEDS ORDERED: diphenhydrAMINE Capsule 25 MG CAP PO PRN (22:19)
[2023-06-07] MEDS ORDERED: guaiFENesin 600 MG TABCR PO PRN (22:50)
[2023-06-07] MEDS: cloZAPine 100 MG TAB PO SCH (23:42)
[2023-06-08 06:46] LABS: Hematocrit (blood only) 42.6 % (37.0-47.0); Hemoglobin 14.6 g/dl (12.0-16.0); Mean Corpuscular Hemoglobin 31.5 pg (25.0-34.0); Mean Corpuscular Hgb Conc 34.3 g/dL (32.0-36.0); Mean Corpuscular Volume 91.8 fL (80.0-100.0); Mean Platelet Volume 10.8 fL (9.4-12.4); Platelet Count 94 K/uL (130-400); RDW Coefficient of Variation 14.9 % (11.5-14.5); RDW Standard Deviation 50.2 fL (36.4-46.3); Red Blood Count 4.64 M/uL (4.20-5.40)
[2023-06-08 06:48] LABS: Albumin Globulin Ratio 1.5 (0.9-2); Albumin Level 3.9 gm/dl (3.4-5.0); BUN Creatinine Ratio 25.5 (10-20); Bilirubin,Total 0.5 mg/dl (0.2-1.0); Calcium 8.4 mg/dl (8.6-10.3); Est GFR (African American) 117.3 ml/min; Est GFR (Non-African American) 101.2 ml/min; Globulin 2.6 gm/dl (2.5-4.0); Potassium 3.8 mmol/L (3.5-5.1); Total Protein 6.5 gm/dl (6.0-8.3)
[2023-06-08] MEDS: ACETAMINOPHEN 325 MG TAB PO PRN ×2 (08:48→13:31)
[2023-06-08] MEDS: DOCUSATE SODIUM 100 MG CAP PO SCH ×2 (08:53→20:27)
[2023-06-08] MEDS: valACYclovir HCL 500 MG TABLET PO SCH (08:54)
[2023-06-08] MEDS: OSELTAMIVIR PHOSPHATE 75 MG CAP PO SCH ×2 (08:54→20:21)
[2023-06-08] MEDS: PHENYTOIN SODIUM ER 100 MG CAP PO SCH ×2 (08:54→20:21)
[2023-06-08] MEDS: guaiFENesin SUGAR FREE 100 MG/5 ML UDC PO PRN (08:54)
[2023-06-08] MEDS: LORATADINE 10 MG TAB PO SCH (08:54)
[2023-06-08] MEDS: CALCIUM CITRATE 950 MG TAB PO SCH (08:55)
[2023-06-08] MEDS: VITAMIN B COMPLEX TAB PO SCH (08:55)
[2023-06-08] MEDS: POLYETHYLENE (MIRALAX) 17 GM PACK PO SCH ×2 (08:56→20:22)
[2023-06-08] MEDS: levETIRAcetam 250 MG TAB PO SCH ×2 (08:56→20:21)
[2023-06-08] MEDS: CEROVITE ADV FORMULA TAB PO SCH (08:56)
[2023-06-08] MEDS: AMMONIUM LACTATE 12% LOTION 225 GM BTL EXT SCH (08:56)
--- NOTE | 2023-06-08 12:43 | Hospitalist Progress Note ---
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 Oneill is a 63-year-old female with history of seizures, ambulatory dysfunction, cognitive dysfunction, schizophrenia, diabetes mellitus type 2 and other medical problems who was admitted on 06/07 for management of acute metabolic encephalopathy iso influenza A infection. This morning patient lethargic, tachycardic and febrile. No white count at this time, urine clear. Starting IVF for aggressive hydration and repeat lactate given gap on BMP this am. #Acute toxic metabolic encephalopathy #Influenza A #Anion gap metabolic acidosis -Suspect flu A, dehydration, contributing to lethargy Generalized weakness, lethargy and cough this morning, brought in by [facility] staff Head CT, CXR and cervical spine CT without evidence of any acute process Lactate and procal negative on admission -GAP 16, repeat lactate ordered -IVF LR 125, continue to monitor Continue Tamiflu Saturating at 95% on room air, monitor oxygenation Continue Mucinex and antitussives Continue Loratadine daily Aspiration precautions PT Ordered Fall precautions #Schizophrenia Chronic, stable Reports Auditory hallucinations at baseline Continue clozapine 600mg QPM #Complex Partial Seizures Chronic, stable Follows Dr Marshall 01/22/2023, last seizure 2010 Continue Keppra 250mg BID and phenytoin 200 BID #DM II Chronic, stable A1c 5.8 in May 2023 Hold home agents SSI while in-patient BSG AC HS #GERD Chronic, stable Continue famotidine 40mg HS #HLD Chronic, stable Continue statin #Herpes Dermatitis Chronic, stable Continue Valacyclovir 500mg BID #Hypertension Previously on lisinopril Currently not on meds Monitor BP DVT Ppx: SQ lovenox Code status: FULL PCP: CHRIS Jacobsen Dispo: Admitted to [facility] I spent a total of 65 minutes coordinating, documenting, and providing care for this patient excluding time spent in the performance of separately billed services. Admission and Anticipated Discharge Date Admission Date: June 07, 2023 Subjective NAEO Remains febrile Able to arouse and open eyes, maintaining airway, but somnolent Physical Exam Constitutional: tired, ill appearing woman, minimally responsive Respiratory: diminished breath sounds, no rhonchi/wheezing Cardiovascular: tachycardic, no murmurs Musculoskeletal: no focal deficits, curled up, not following commands at this time Results & Data Results & Data Vital Signs (Past 12 Hours) Vital Signs Temp Pulse Pulse Resp BP Pulse Ox O2 Del Method 06/08/23 11:26 37.6 C H 96 H 20 115/68 93 Room Air 06/08/23 08:45 Room Air 06/08/23 08:22 105 H 06/08/23 07:58 38.1 C H 113 H 20 136/68 95 Room Air 06/08/23 04:08 38.1 C H 104 H 18 144/92 H 95 Room Air Laboratory Results Short CBC 06/08/23 Range/Units 05:54 WBC 10.30 (4.8-10.8) K/ul Hgb 14.6 (12.0-16.0) g/dl Hct 42.6 (37.0-47.0) % Plt Count 94 L (130-400) K/uL BMP 06/08/23 05:54 Sodium 135 L Potassium 3.8 D Chloride 103 Carbon Dioxide 16 L BUN 14 Creatinine 0.55 L Glucose 104 H Calcium 8.4 L Liver Function 06/08/23 Range/Units 05:54 Total Bilirubin 0.5 (0.2-1.0) mg/dl AST 28 (13-39) U/L ALT 36 (7-52) U/L Alkaline Phosphatase 95 (34-104) U/L Albumin 3.9 (3.4-5.0) gm/dl Urine 06/07/23 Range/Units 17:36 Urine Color Yellow Urine Appearance Clear (Clear) Urine pH 6.0 (4.5-7.5) Ur Specific [place] 1.023 (1.000-1.030) Urine Protein Negative (Negative) Urine Glucose (UA) 3+ H (Negative) Diagnostic Findings Reviewed admission imaging -sinus tachy, no acute changes compared to previous on admission EKG -Telemetry reviewed, remains sinus tachy -Head CT stable -KUB stable -CXR no clear consolidation -UA without signs of infection -BIO fire Flu A Medications Administered Home Medications Medication Instructions Recorded Confirmed Last Taken atorvastatin 40 mg tablet 40 mg PO HS 07/17/18 06/07/23 1 Day Ago ~02/24/23 glimepiride 2 mg tablet 2 mg PO QAM 07/17/18 06/07/23 10/14/22 metformin 500 mg tablet,extended 1,000 mg PO BID 07/17/18 06/07/23 10/14/22 08:00 release 24 hr multivit-iron 18 mg-folic acid 400 1 tab PO QAM 07/17/18 06/07/23 10/14/22 mcg-calcium 500 mg-minerals tablet (Women's One Daily) vitamin B complex 1 tab PO QAM 08/25/18 06/07/23 10/14/22 fluticasone propionate 50 2 sprays intranasal QPM 02/15/19 06/07/23 10/13/22 mcg/actuation nasal spray,suspension ammonium lactate 12 % topical cream 1 applic topical QAM 05/21/19 06/07/23 10/14/22 docusate sodium 100 mg capsule 100 mg PO BID 05/21/19 06/07/23 1 Day Ago (Colace) ~02/24/23 triamcinolone acetonide 0.1 % 1 applic topical BID PRN Rash 07/10/21 06/07/23 10/30/21 topical cream clozapine 200 mg tablet 600 mg PO DAILY@199910/31/21 06/07/23 1 Day Ago ~02/24/23 valacyclovir 500 mg tablet 500 mg PO DAILY 02/18/22 06/07/23 10/14/22 glimepiride 1 mg tablet 1 mg PO DIRECTED PRN BSG >300. 10/14/22 06/07/23 Unknown levetiracetam 250 mg tablet 250 mg PO BID 90 days #180 tabs 10/15/22 06/07/23 1 Day Ago (Keppra) ~02/24/23 polyethylene glycol 3350 17 gram 17 g PO BID 10/19/22 06/07/23 Unknown oral powder packet (Miralax) phenytoin sodium extended 100 mg 200 mg (2 x 100 mg) PO BID 90 days 12/14/22 06/07/23 1 Day Ago capsule (Dilantin Extended) #360 caps ~02/24/23 Calcium Citrate + D 200 - 315 mcg PO DAILY 02/11/23 06/07/23 Unknown albuterol sulfate 90 mcg/actuation 2 puff inhalation QIDR PRN 03/03/23 06/07/23 Unknown aerosol inhaler (Ventolin HFA) shortness of breath or wheezing #6.7 grams dextromethorphan-guaifenesin 5 10 ml PO Q6H PRN cough #118 mL 03/03/23 06/07/23 Unknown mg-100 mg/5 mL oral liquid (Robitussin Cough-Chest Congestion DM) acetaminophen 500 mg tablet 1,000 mg PO Q8H PRN Pain 06/07/23 06/07/23 Unknown (Tylenol Extra Strength) dextromethorphan-guaifenesin 30 1 - 2 tab PO Q12H PRN Nasal 06/07/23 06/07/23 Unknown mg-600 mg tablet extended Congestion hr (Mucinex DM) diphenhydramine HCl 25 mg tablet 25 mg PO .Q4-6 PRN .allergy 06/07/23 06/07/23 Unknown (Benadryl Allergy) empagliflozin 25 mg tablet 25 mg PO QAM 06/07/23 06/07/23 Unknown (Jardiance) famotidine 40 mg tablet 40 mg PO HS 06/07/23 06/07/23 Unknown nut.tx.gluc.intol,lac-free,soy 1 ea PO BID 06/07/23 06/07/23 Unknown (Glucerna oral liquid) Active Medications Generic Name Dose Route Start Last Admin Trade Name Freq PRN Reason Stop Dose Admin Acetaminophen 650 mg 06/07/23 15:54 06/08/23 08:48 Acetaminophen 325 Mg Tab PO 07/07/23 15:53 650 mg Q4H PRN Administration pain/fever Calcium Citrate 1,900 mg 06/08/23 09:00 06/08/23 08:55 Calcium Citrate 950 Mg Tab PO 07/08/23 08:59 1,900 mg DAILY DELMI Administration Clozapine 600 mg 06/07/23 23:00 06/07/23 23:42 Clozapine 100 Mg Tab PO 07/07/23 22:59 600 mg DAILY@1999 DELMI Administration Protocol Docusate Sodium 100 mg 06/08/23 09:00 06/08/23 08:53 Docusate Sodium 100 Mg Cap PO 07/08/23 08:59 100 mg BID DELMI Administration Guaifenesin 100 mg 06/07/23 13:35 06/08/23 08:54 Guaifenesin Sugar Free 100 Mg/5 Ml Udc PO 07/07/23 13:34 100 mg Q6H PRN Administration Cough Lactic Acid 1 gm 06/08/23 09:00 06/08/23 08:56 Ammonium Lactate 12% Lotion 225 Gm Btl EXT 07/08/23 08:59 1 gm QAM DELMI Administration Levetiracetam 250 mg 06/08/23 09:00 06/08/23 08:56 Levetiracetam 250 Mg Tab PO 07/08/23 08:59 250 mg BID DELMI Administration Loratadine 10 mg 06/08/23 09:00 06/08/23 08:54 Loratadine 10 Mg Tab PO 07/08/23 08:59 10 mg QAM DELMI Administration Multivitamins/Minerals 1 tab 06/08/23 09:00 06/08/23 08:56 Cerovite Adv Formula Tab PO 07/08/23 08:59 1 tab QAM DELMI Administration Oseltamivir Phosphate 75 mg 06/07/23 09:00 06/08/23 08:54 Oseltamivir Phosphate 75 Mg Cap PO 06/12/23 08:59 75 mg BID DELMI Administration Protocol Phenytoin Sodium 200 mg 06/08/23 09:00 06/08/23 08:54 Phenytoin Sodium Er 100 Mg Cap PO 07/08/23 08:59 200 mg BID DELMI Administration Polyethylene Glycol 17 gm 06/08/23 09:00 06/08/23 08:56 Polyethylene (Miralax) 17 Gm Pack PO 07/08/23 08:59 17 gm BID DELMI Administration Triamcinolone Acetonide 1 appln 06/07/23 22:12 06/08/23 08:53 Triamcinolone Acet 0.1% Cr 15 Gm Tube TOP 07/07/23 22:11 1 appln BID PRN Administration Rash Valacyclovir HCl 500 mg 06/08/23 09:00 06/08/23 08:54 Valacyclovir Hcl 500 Mg Tablet PO 07/08/23 08:59 500 mg DAILY DELMI Administration Vitamin B Complex 1 tab 06/08/23 09:00 06/08/23 08:55 Vitamin B Complex Tab PO 07/08/23 08:59 1 tab QAM DELMI Administration
[2023-06-08] MEDS: LACTATED RINGER'S 1,000 ML IV SCH ×2 (13:25→20:28)
[2023-06-08] MEDS: FLUTICASONE PROPIONATE NA SPR 16 GM BTL NAE SCH (20:21)
[2023-06-08] MEDS: FAMOTIDINE 40 MG TABLET PO SCH (20:21)
[2023-06-08] MEDS: ATORVASTATIN 40 MG TAB PO SCH (20:21)
[2023-06-08] MEDS: cloZAPine 100 MG TAB PO SCH (21:00)
[2023-06-09] MEDS: LACTATED RINGER'S 1,000 ML IV SCH ×2 (03:24→11:13)
[2023-06-09 07:41] LABS: Hematocrit (blood only) 37.3 % (37.0-47.0); Hemoglobin 12.8 g/dl (12.0-16.0); Mean Corpuscular Hemoglobin 31.3 pg (25.0-34.0); Mean Corpuscular Hgb Conc 34.3 g/dL (32.0-36.0); Mean Corpuscular Volume 91.2 fL (80.0-100.0); Platelet Count 108 K/uL (130-400); RDW Coefficient of Variation 14.9 % (11.5-14.5); RDW Standard Deviation 50.3 fL (36.4-46.3); Red Blood Count 4.09 M/uL (4.20-5.40); White Blood Count 8.96 K/ul (4.8-10.8)
[2023-06-09 07:53] LABS: Calcium 8.4 mg/dl (8.6-10.3); Magnesium 1.8 mg/dl (1.7-2.4)
[2023-06-09] MEDS: AMMONIUM LACTATE 12% LOTION 225 GM BTL EXT SCH (07:53)
[2023-06-09] MEDS: PHENYTOIN SODIUM ER 100 MG CAP PO SCH ×2 (07:54→19:22)
[2023-06-09] MEDS: CALCIUM CITRATE 950 MG TAB PO SCH (07:54)
[2023-06-09] MEDS: VITAMIN B COMPLEX TAB PO SCH (07:55)
[2023-06-09] MEDS: LORATADINE 10 MG TAB PO SCH (07:55)
[2023-06-09] MEDS: valACYclovir HCL 500 MG TABLET PO SCH (07:56)
[2023-06-09] MEDS: CEROVITE ADV FORMULA TAB PO SCH (07:56)
[2023-06-09] MEDS: OSELTAMIVIR PHOSPHATE 75 MG CAP PO SCH ×2 (07:56→19:20)
[2023-06-09] MEDS: levETIRAcetam 250 MG TAB PO SCH ×2 (07:56→19:21)
[2023-06-09 07:59] LABS: BUN Creatinine Ratio 23.4 (10-20); Creatinine Clr Calc Pharmacy 99.4 ml/min; Est GFR (African American) 123.6 ml/min; Est GFR (Non-African American) 106.6 ml/min
[2023-06-09] MEDS: DOCUSATE SODIUM 100 MG CAP PO SCH ×2 (08:00→19:24)
[2023-06-09] MEDS: POLYETHYLENE (MIRALAX) 17 GM PACK PO SCH ×2 (08:00→19:24)
[2023-06-09] MEDS: POT PHOSPHATE MONOBASIC W/ SOD TAB PO SCH ×3 (12:55→19:19)
--- NOTE | 2023-06-09 14:30 | Hospitalist Progress Note ---
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 Oneill is a 63-year-old female with history of seizures, ambulatory dysfunction, cognitive dysfunction, schizophrenia, diabetes mellitus type 2 and other medical problems who was admitted on 06/07 for management of acute metabolic encephalopathy iso influenza A infection. 06/08 patient lethargic, tachycardic and febrile. No white count at this time, urine clear. Started on IVF for aggressive hydration. On 06/09, patient much improved, conversational. Afebrile since 06/08 11am. #Acute toxic metabolic encephalopathy #Influenza A #Anion gap metabolic acidosis *resolved -Suspect flu A, dehydration, contributing to lethargy Generalized weakness, lethargy and cough this morning, brought in by [facility] staff Head CT, CXR and cervical spine CT without evidence of any acute process Lactate and procal negative on admission -GAP 16, repeat lactate normal, gap resolved -IVF LR 125, discontinue and encourage PO intake Continue Tamiflu x7 days (EOT 06/14) Saturating at 95% on room air, monitor oxygenation Continue Mucinex and antitussives Continue Loratadine daily Aspiration precautions PT --transfer to [facility] likely tomorrow Fall precautions #Schizophrenia Chronic, stable Reports Auditory hallucinations at baseline Continue clozapine 600mg QPM #Complex Partial Seizures Chronic, stable Follows Dr Marshall 01/22/2023, last seizure 2010 Continue Keppra 250mg BID and phenytoin 200 BID #DM II Chronic, stable A1c 5.8 in May 2023 Hold home agents SSI while in-patient BSG AC HS #GERD Chronic, stable Continue famotidine 40mg HS #HLD Chronic, stable Continue statin #Herpes Dermatitis Chronic, stable Continue Valacyclovir 500mg BID #Hypertension Previously on lisinopril Currently not on meds Monitor BP DVT Ppx: SQ lovenox Code status: FULL PCP: CHRIS Jacobsen Dispo: Admitted to [facility] tele Admission and Anticipated Discharge Date Admission Date: June 07, 2023 Subjective Much improved mentation overnight, reports no pain or current concerns Reoriented quickly and conversational. Have worked with this patient previously and appears at baseline Physical Exam Constitutional: WD/WN, vitals as above Respiratory: good effort, diminished bibasilar, but no wheezing or crackles Cardiovascular: RRR, no murmur, no edema Gastrointestinal (Abdomen): normal bowel sounds, soft, nontender, no hepatosplenomegaly Musculoskeletal: moving all extremities equally Results & Data Results & Data Vital Signs (Past 12 Hours) Vital Signs Temp Pulse Resp BP Pulse Ox O2 Del Method 06/09/23 08:00 Room Air 06/09/23 07:13 36.7 C 90 17 112/69 95 Room Air Laboratory Results Short CBC 06/09/23 Range/Units 06:56 WBC 8.96 (4.8-10.8) K/ul Hgb 12.8 (12.0-16.0) g/dl Hct 37.3 (37.0-47.0) % Plt Count 108 L (130-400) K/uL BMP 06/09/23 06:56 Sodium 138 Potassium 4.0 Chloride 107 Carbon Dioxide 22 BUN 11 Creatinine 0.47 L Glucose 107 H Calcium 8.4 L Medications Administered Home Medications Medication Instructions Recorded Confirmed Last Taken atorvastatin 40 mg tablet 40 mg PO HS 07/17/18 06/07/23 1 Day Ago ~02/24/23 glimepiride 2 mg tablet 2 mg PO M 07/17/18 06/07/23 10/14/22 metformin 500 mg tablet,extended 1,000 mg PO BID 07/17/18 06/07/23 10/14/22 08:00 release 24 hr multivit-iron 18 mg-folic acid 400 1 tab PO QAM 07/17/18 06/07/23 10/14/22 mcg-calcium 500 mg-minerals tablet (Women's One Daily) vitamin B complex 1 tab PO QAM 08/25/18 06/07/23 10/14/22 fluticasone propionate 50 2 sprays intranasal QPM 02/15/19 06/07/23 10/13/22 mcg/actuation nasal spray,suspension ammonium lactate 12 % topical cream 1 applic topical QA 05/21/19 06/07/23 10/14/22 docusate sodium 100 mg capsule 100 mg PO BID 05/21/19 06/07/23 1 Day Ago (Colace) ~02/24/23 triamcinolone acetonide 0.1 % 1 applic topical BID PRN Rash 07/10/21 06/07/23 10/30/21 topical cream clozapine 200 mg tablet 600 mg PO DAILY@199910/31/21 06/07/23 1 Day Ago ~02/24/23 valacyclovir 500 mg tablet 500 mg PO DAILY 02/18/22 06/07/23 10/14/22 glimepiride 1 mg tablet 1 mg PO DIRECTED PRN BSG >300. 10/14/22 06/07/23 Unknown levetiracetam 250 mg tablet 250 mg PO BID 90 days #180 tabs 10/15/22 06/07/23 1 Day Ago (Keppra) ~02/24/23 polyethylene glycol 3350 17 gram 17 g PO BID 10/19/22 06/07/23 Unknown oral powder packet (Miralax) phenytoin sodium extended 100 mg 200 mg (2 x 100 mg) PO BID 90 days 12/14/22 06/07/23 1 Day Ago capsule (Dilantin Extended) #360 caps ~02/24/23 Calcium Citrate + D 200 - 315 mcg PO DAILY 02/11/23 06/07/23 Unknown albuterol sulfate 90 mcg/actuation 2 puff inhalation QIDR PRN 03/03/23 06/07/23 Unknown aerosol inhaler (Ventolin HFA) shortness of breath or wheezing #6.7 grams dextromethorphan-guaifenesin 5 10 ml PO Q6H PRN cough #118 mL 03/03/23 06/07/23 Unknown mg-100 mg/5 mL oral liquid (Robitussin Cough-Chest Congestion DM) acetaminophen 500 mg tablet 1,000 mg PO Q8H PRN Pain 06/07/23 06/07/23 Unknown (Tylenol Extra Strength) dextromethorphan-guaifenesin 30 1 - 2 tab PO Q12H PRN Nasal 06/07/23 06/07/23 Unknown mg-600 mg tablet extended Congestion [id number] hr (Mucinex DM) diphenhydramine HCl 25 mg tablet 25 mg PO .Q4-6 PRN .allergy 06/07/23 06/07/23 Unknown (Benadryl Allergy) empagliflozin 25 mg tablet 25 mg PO QAM 06/07/23 06/07/23 Unknown (Jardiance) famotidine 40 mg tablet 40 mg PO HS 06/07/23 06/07/23 Unknown nut.tx.gluc.intol,lac-free,soy 1 ea PO BID 06/07/23 06/07/23 Unknown (Glucerna oral liquid) Active Medications Generic Name Dose Route Start Last Admin Trade Name Freq PRN Reason Stop Dose Admin Acetaminophen 650 mg 06/07/23 15:54 06/08/23 13:31 Acetaminophen 325 Mg Tab PO 07/07/23 15:53 650 mg Q4H PRN Administration pain/fever Atorvastatin Calcium 40 mg 06/08/23 21:00 06/08/23 20:21 Atorvastatin 40 Mg Tab PO 07/08/23 20:59 40 mg HS DELMI Administration Calcium Citrate 1,900 mg 06/08/23 09:00 06/09/23 07:54 Calcium Citrate 950 Mg Tab PO 07/08/23 08:59 1,900 mg DAILY DELMI Administration Clozapine 600 mg 06/07/23 23:00 06/08/23 21:00 Clozapine 100 Mg Tab PO 07/07/23 22:59 600 mg DAILY@2000 DELMI Administration Protocol Docusate Sodium 100 mg 06/08/23 09:00 06/09/23 08:00 Docusate Sodium 100 Mg Cap PO 07/08/23 08:59 100 mg BID DELMI Administration Famotidine 40 mg 06/08/23 21:00 06/08/23 20:21 Famotidine 40 Mg Tablet PO 07/08/23 20:59 40 mg HS DELMI Administration Fluticasone Propionate 2 sprays 06/08/23 21:00 06/08/23 20:21 Fluticasone Propionate Na Spr 16 Gm Btl LUIS MANUEL 07/08/23 20:59 2 sprays QPM DELMI Administration Guaifenesin 100 mg 06/07/23 13:35 06/08/23 08:54 Guaifenesin Sugar Free 100 Mg/5 Ml Udc PO 07/07/23 13:34 100 mg Q6H PRN Administration Cough Guaifenesin 600 mg 06/07/23 22:50 06/09/23 07:55 Guaifenesin 600 Mg Tabcr PO 07/07/23 22:49 600 mg Q12H PRN Administration Nasal Congestion Lactic Acid 1 gm 06/08/23 09:00 06/09/23 07:53 Ammonium Lactate 12% Lotion 225 Gm Btl EXT 07/08/23 08:59 1 gm QAM DELMI Administration Levetiracetam 250 mg 06/08/23 09:00 06/09/23 07:56 Levetiracetam 250 Mg Tab PO 07/08/23 08:59 250 mg BID DELMI Administration Loratadine 10 mg 06/08/23 09:00 06/09/23 07:55 Loratadine 10 Mg Tab PO 07/08/23 08:59 10 mg QAM DELMI Administration Multivitamins/Minerals 1 tab 06/08/23 09:00 06/09/23 07:56 Cerovite Adv Formula Tab PO 07/08/23 08:59 1 tab QAM DELMI Administration Oseltamivir Phosphate 75 mg 06/07/23 09:00 06/09/23 07:56 Oseltamivir Phosphate 75 Mg Cap PO 06/12/23 08:59 75 mg BID DELMI Administration Protocol Phenytoin Sodium 200 mg 06/08/23 09:00 06/09/23 07:54 Phenytoin Sodium Er 100 Mg Cap PO 07/08/23 08:59 200 mg BID DELMI Administration Polyethylene Glycol 17 gm 06/08/23 09:00 06/09/23 08:00 Polyethylene (Miralax) 17 Gm Pack PO 07/08/23 08:59 17 gm BID DELMI Administration Potassium Phosphate 1 tab 06/09/23 13:00 06/09/23 12:55 Pot Phosphate Monobasic W/ Sod Tab PO 07/09/23 12:59 1 tab QID DELMI Administration Triamcinolone Acetonide 1 appln 06/07/23 22:12 06/08/23 08:53 Triamcinolone Acet 0.1% Cr 15 Gm Tube TOP 07/07/23 22:11 1 appln BID PRN Administration Rash Valacyclovir HCl 500 mg 06/08/23 09:00 06/09/23 07:56 Valacyclovir Hcl 500 Mg Tablet PO 07/08/23 08:59 500 mg DAILY DELMI Administration Vitamin B Complex 1 tab 06/08/23 09:00 06/09/23 07:55 Vitamin B Complex Tab PO 07/08/23 08:59 1 tab QAM DELMI Administration
[2023-06-09] MEDS: FAMOTIDINE 40 MG TABLET PO SCH (19:20)
[2023-06-09] MEDS: cloZAPine 100 MG TAB PO SCH (19:21)
[2023-06-09] MEDS: FLUTICASONE PROPIONATE NA SPR 16 GM BTL NAE SCH (19:22)
[2023-06-09] MEDS: ATORVASTATIN 40 MG TAB PO SCH (19:22)
[2023-06-10] MEDS: AMMONIUM LACTATE 12% LOTION 225 GM BTL EXT SCH (08:31)
[2023-06-10] MEDS: PHENYTOIN SODIUM ER 100 MG CAP PO SCH (08:32)
[2023-06-10] MEDS: LORATADINE 10 MG TAB PO SCH (08:32)
[2023-06-10] MEDS: CALCIUM CITRATE 950 MG TAB PO SCH (08:33)
[2023-06-10] MEDS: levETIRAcetam 250 MG TAB PO SCH (08:33)
[2023-06-10] MEDS: VITAMIN B COMPLEX TAB PO SCH (08:33)
[2023-06-10] MEDS: OSELTAMIVIR PHOSPHATE 75 MG CAP PO SCH (08:34)
[2023-06-10] MEDS: POT PHOSPHATE MONOBASIC W/ SOD TAB PO SCH ×2 (08:36→12:57)
[2023-06-10] MEDS: valACYclovir HCL 500 MG TABLET PO SCH (08:36)
[2023-06-10] MEDS: CEROVITE ADV FORMULA TAB PO SCH (08:39)
[2023-06-10] MEDS: POLYETHYLENE (MIRALAX) 17 GM PACK PO SCH (08:41)
[2023-06-10] MEDS: DOCUSATE SODIUM 100 MG CAP PO SCH (08:41)
[2023-06-10 08:50] LABS: BUN Creatinine Ratio 25.6 (10-20); Calcium 8.4 mg/dl (8.6-10.3); Creatinine Clr Calc Pharmacy 119.8 ml/min; Est GFR (African American) 131.4 ml/min; Est GFR (Non-African American) 113.4 ml/min; Phosphorus 2.5 mg/dl (2.5-4.9); Potassium 3.8 mmol/L (3.5-5.1)
--- NOTE | 2023-06-10 11:27 | Discharge Summary ---
Discharge Summary Date of Service June 10, 2023 Notes For Next Care Provider Medication Changes From Visit Tamiflu 75mg BID x 5 more days Admission HPI Per Admitting Provider This is a 63yo F [facility] resident with a PMH of seizures, ambulatory dysfunction, cognitive dysfunction, schizophrenia, diabetes mellitus type 2 and other medical problems presents with ongoing confusion and generalized weakness. Patient is a very poor historian due to cognitive issues so most of the history is obtained from ER staff, caregiver at bedside and chart review. Was recently admitted to our service from 05/17-05/19 with lactic acidosis and acute bronchitis. Discharged on remainder of doxycycline course, which she completed on May 24. Was back to her baseline per staff until she was assisted getting her out of bed today but slid to the floor onto her backside. No LOC or head trauma reported. Has been less communicative than baseline with increased cough today as well as ongoing lethargy. At baseline she is alert and oriented to person and place but not to time. No other medical changes since last admission. Admission Exam Per Admitting Provider On exam, General: No acute distress, ill appearing Eyes: PERRL, conjunctivae normal, not pale, anicteric sclerae, EOM intact bilaterally ENMT: Appear congested Respiratory: Normal respiratory effort, no respiratory distress, lungs clear to auscultation Cardiovascular: Tachycardic, regular rhythm S1 S2 Gastrointestinal (Abdomen): Abdomen is not distended, soft, non-tender to palpation, no guarding, no palpable hepatosplenomegaly, normal bowel sounds Musculoskeletal: No pedal edema Neurologic: Drowsy but arousable and oriented to person only, No focal weakness, Follows commands Principal Dx & Hospital Course #1 = Principal Diagnosis (1) Acute metabolic encephalopathy: (2) Influenza A: (3) 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 Oneill is a 63-year-old female with history of seizures, ambulatory dysfunction, cognitive dysfunction, schizophrenia, diabetes mellitus type 2 and other medical problems who was admitted on 06/07 for management of acute metabolic encephalopathy iso influenza A infection. 06/08 patient lethargic, tachycardic and febrile. No white count at this time, urine clear. Started on IVF for aggressive hydration. On 06/09, patient much improved, conversational. Afebrile since 06/08 11am. On day of discharge, patient was at baseline, feeding self, denying any acute concerns. #Acute toxic metabolic encephalopathy #Influenza A #Anion gap metabolic acidosis *resolved -Suspect flu A, dehydration, contributing to lethargy Generalized weakness, lethargy and cough this morning, brought in by [facility] staff Head CT, CXR and cervical spine CT without evidence of any acute process Lactate and procal negative on admission -GAP 16, repeat lactate normal, gap resolved -IVF LR 125, discontinue and encourage PO intake Continue Tamiflu x7 days (EOT 06/14) Saturating at 95% on room air, monitor oxygenation Continue home regimen of expectorants prn #Schizophrenia Chronic, stable Reports Auditory hallucinations at baseline Continue clozapine 600mg QPM #Complex Partial Seizures Chronic, stable Follows Dr Marshall 01/22/2023, last seizure 2010 Continue Keppra 250mg BID and phenytoin 200 BID #DM II Chronic, stable A1c 5.8 in May 2023 resume home agents on discharge #GERD Chronic, stable Continue famotidine 40mg HS #HLD Chronic, stable Continue statin #Herpes Dermatitis Chronic, stable Continue Valacyclovir 500mg BID #Hypertension Previously on lisinopril Currently not on meds Monitor BP Patient afebrile for 24 hours and discharged back to [facility]. Discharge Exam Constitutional WD/WN, vitals as above Respiratory normal respiratory effort, lungs clear to auscultation occasional cough Cardiovascular RRR, no murmur, no edema Gastrointestinal (Abdomen) normal bowel sounds, soft, nontender, no hepatosplenomegaly Updated Medication List Medication Instructions Recorded Confirmed Type atorvastatin 40 mg tablet 40 mg PO HS 07/17/18 06/07/23 History glimepiride 2 mg tablet 2 mg PO QAM 07/17/18 06/07/23 History metformin 500 mg tablet,extended 1,000 mg PO BID 07/17/18 06/07/23 History release 24 hr multivit-iron 18 mg-folic acid 400 1 tab PO QAM 07/17/18 06/07/23 History mcg-calcium 500 mg-minerals tablet (Women's One Daily) vitamin B complex 1 tab PO QAM 08/25/18 06/07/23 History fluticasone propionate 50 2 sprays intranasal QPM 02/15/19 06/07/23 History mcg/actuation nasal spray,suspension ammonium lactate 12 % topical cream 1 applic topical QAM 05/21/19 06/07/23 History docusate sodium 100 mg capsule 100 mg PO BID 05/21/19 06/07/23 History (Colace) triamcinolone acetonide 0.1 % 1 applic topical BID PRN Rash 07/10/21 06/07/23 History topical cream clozapine 200 mg tablet 600 mg PO DAILY@199910/31/21 06/07/23 History valacyclovir 500 mg tablet 500 mg PO DAILY 02/18/22 06/07/23 History glimepiride 1 mg tablet 1 mg PO DIRECTED PRN BSG >300. 10/14/22 06/07/23 History levetiracetam 250 mg tablet 250 mg PO BID 90 days #180 tabs 10/15/22 06/07/23 Rx (Keppra) polyethylene glycol 3350 17 gram 17 g PO BID 10/19/22 06/07/23 History oral powder packet (Miralax) phenytoin sodium extended 100 mg 200 mg (2 x 100 mg) PO BID 90 days 12/14/22 06/07/23 Rx capsule (Dilantin Extended) #360 caps Calcium Citrate + D 200 - 315 mcg PO DAILY 02/11/23 06/07/23 History albuterol sulfate 90 mcg/actuation 2 puff inhalation QIDR PRN 03/03/23 06/07/23 Rx aerosol inhaler (Ventolin HFA) shortness of breath or wheezing #6.7 grams dextromethorphan-guaifenesin 5 10 ml PO Q6H PRN cough #118 mL 03/03/23 06/07/23 Rx mg-100 mg/5 mL oral liquid (Robitussin Cough-Chest Congestion DM) acetaminophen 500 mg tablet 1,000 mg PO Q8H PRN Pain 06/07/23 06/07/23 History (Tylenol Extra Strength) dextromethorphan-guaifenesin 30 1 - 2 tab PO Q12H PRN Nasal 06/07/23 06/07/23 History mg-600 mg tablet extended Congestion edpknif64 hr (Mucinex DM) diphenhydramine HCl 25 mg tablet 25 mg PO .Q4-6 PRN .allergy 06/07/23 06/07/23 History (Benadryl Allergy) empagliflozin 25 mg tablet 25 mg PO QAM 06/07/23 06/07/23 History (Jardiance) famotidine 40 mg tablet 40 mg PO HS 06/07/23 06/07/23 History nut.tx.gluc.intol,lac-free,soy 1 ea PO BID 06/07/23 06/07/23 History (Glucerna oral liquid) oseltamivir 75 mg capsule (Tamiflu) 75 mg PO BID #10 caps 06/10/23 Rx Hospital Stay Data Consultations 06/07/23 12:34 ED Decision to Admit Stat Diagnostic Imagining Performed 06/07/23 08:51 CT cervical spine wo con Stat 06/07/23 08:52 CT head/brain wo con Stat Pending Results Patient Have Any Pending Studies at Discharge: No Discharge Instructions Given to Patient (Per Discharging Provider) Ms. Oneill is a 63-year-old female with history of seizures, ambulatory dysfunction, cognitive dysfunction, schizophrenia, diabetes mellitus type 2 and other medical problems who was admitted on 06/07 for management of acute met abolic encephalopathy iso influenza A infection. 06/08 patient lethargic, tachycardic and febrile. Started on IVF for aggressive hydration and tamiflu. On 06/09, patient much improved, conversational. Afebrile since 06/08 11am. 06/10, patient much improved and feeding self this am. Remained afebrile. Ms. Oneill will be sent home on 5 more days of Tamiflu, two times a day. Next dose this evening -06/10 at 2100 Total Time Total Time Spent Total Time Spent (In Minutes): 45
== END 2023-06-10 13:31 | disposition home or self-care (01) | DRG 193 ==
LOC: ED 08:45 → EDINP 12:55 → SUATTDRO 12:55 → 2W 15:54 → 3N 06-09 01:10

== ENCOUNTER 2023-06-11 08:37 | Inpatient (IN) ==
--- NOTE | 2023-06-11 08:53 | Emergency Department Note ---
Impression & Plan Generalized weakness, Acute alteration in mental status ED Provider Note NAME: ORLANDO LESLIE AGE: 63 SEX: F : 1960 ARRIVES VIA: Ambulance INFORMANT: Patient, EMS ED PROVIDER(S): Nayan Carlson DO CHIEF COMPLAINT: Altered mental status HPI: The patient is a 63-year-old female who presented to the emergency department for altered mental status. The patient was seen in our facility recently and diagnosed with the flu. According to her caregivers the patient appeared to be more lethargic and weak today. There is no reported fever or difficulty breathing. The patient offers no complaints but does have some underlying mental disability. ROS: See above HPI for pertinent positives & negatives. A total of 10 systems reviewed and were otherwise negative. PAST MEDICAL HISTORY: See Below PAST SURGICAL HISTORY: See Below FAMILY HISTORY: See Below SOCIAL HISTORY: See Below HOME MEDICATIONS: See Below ALLERGIES: See Below VITALS: See Below PHYSICAL EXAMINATION: GENERAL: The patient is awake and looking around the room. The patient appears comfortable. EYES: The conjunctivae are clear. The pupils are round and reactive. EARS, NOSE, MOUTH AND THROAT: The nose is without any evidence of any deformity. NECK: The neck is nontender and supple. RESPIRATORY: Normal respiratory effort is noted there is no evidence of wheezing rhonchi or rales CARDIOVASCULAR: Regular rate and rhythm noted there no murmurs rubs or gallops normal S1 normal S2. GASTROINTESTINAL: The abdomen is soft. Abdomen is nontender. MUSCULOSKELETAL/EXTREMITIES: There is no evidence of gross deformity full range of motion is noted in the hips and shoulders. SKIN: There is no obvious evidence of any rash. There are no petechiae, pallor or cyanosis noted. NEUROLOGIC: The patient is awake. She follows commands slowly. Strength is symmetric but diminished. MEDICAL DECISION MAKING: The patient is a 63-year-old female who presented to the emergency department for an evaluation of altered mental status. The patient has a history of recently being admitted to our facility. She was diagnosed with influenza A at that time. She returns today because of recurrence of her weakness over the last 24 hours. Patient's caregiver did witness the patient leaning to the side and also being difficult to arouse. I discussed the patient's laboratory and radiographic studies with the patient as well as the caregiver. Given the patient's findings as well as the living situation I will discuss this case with the on-call [facility] group. Triage Nursing notes reviewed. Prior medical records reviewed Vital Signs: reviewed and remarkable for no significant abnormalities Differential diagnosis: Infection, hypoglycemia, electrolyte abnormalities, overdose, toxicologic, cardiac sources, intracerebral event, neurologic, trauma, as well as other pathologies. ER treatment provided: See below Diagnostics interpreted by me: ECG: EKG was obtained in the emergency department. My interpretation is normal sinus rhythm at 86 bpm. There is no ectopy. There is no acute ST segment abnormalities noted. This was compared to a tracing from June 07, 2023. No changes were noted. Cardiac Monitoring: An order was placed for continuous cardiac monitoring. The monitor shows a rate of 81 bpm with sinus rhythm. Laboratory studies: As stated above and show below. Imaging studies: See below. Radiographic imaging was reviewed by myself Consultation(s): I discussed this case with the ED who is on-call for the [facility] group. Past Med/Surg History Medical History Elevated lactic acid level Weakness AMS (altered mental status) DMII (diabetes mellitus, type 2) HSV (herpes simplex virus) anogenital infection Complex partial seizure Depression with anxiety Heart murmur Onychomycosis Hypertension Schizophrenia Surgical History History of colonoscopy Family History Mother Diabetes Other Seizures Social History Smoking Status: Unknown if ever smoked Hx Alcohol Use: No Hx Substance Use: No Preferred Language: Cymro Communication Ability: Impaired Communication Ability Comment: Intellectual Disability Visual Impairment: No Limitations Hearing Ability: Normal Early Childhood Education Coordinator Required: No Beliefs That Will Affect Care: None marital status: Single Current Living Situation: Personal Care Facility Current Living Situation Comment: [facility] current occupational status: disabled Feels Safe at Home: Yes Assistive Devices: Cane and Walker Allergies Allergies Allergy/AdvReac Type Severity Reaction Status Date / Time divalproex sodium Allergy Unknown Unknown Verified 06/07/23 12:54 [From Depakote] salicylates Allergy Unknown Unknown Verified 06/07/23 12:54 valproic acid Allergy Unknown Unknown Verified 06/07/23 12:54 aspirin AdvReac Severe STOMACH Verified 06/07/23 12:54 ULCER BLEEDING Home Meds Home Medications Medication Instructions Recorded Confirmed atorvastatin 40 mg tablet 40 mg PO HS 07/17/18 06/07/23 glimepiride 2 mg tablet 2 mg PO QAM 07/17/18 06/07/23 metformin 500 mg tablet,extended 1,000 mg PO BID 07/17/18 06/07/23 release 24 hr multivit-iron 18 mg-folic acid 400 1 tab PO QAM 07/17/18 06/07/23 mcg-calcium 500 mg-minerals tablet (Women's One Daily) vitamin B complex 1 tab PO QAM 08/25/18 06/07/23 fluticasone propionate 50 2 sprays intranasal QPM 02/15/19 06/07/23 mcg/actuation nasal spray,suspension ammonium lactate 12 % topical cream 1 applic topical QA 05/21/19 06/07/23 docusate sodium 100 mg capsule 100 mg PO BID 05/21/19 06/07/23 (Colace) triamcinolone acetonide 0.1 % 1 applic topical BID PRN Rash 07/10/21 06/07/23 topical cream clozapine 200 mg tablet 600 mg PO DAILY@199910/31/21 06/07/23 valacyclovir 500 mg tablet 500 mg PO DAILY 02/18/22 06/07/23 glimepiride 1 mg tablet 1 mg PO DIRECTED PRN BSG >300. 10/14/22 06/07/23 polyethylene glycol 3350 17 gram 17 g PO BID 10/19/22 06/07/23 oral powder packet (Miralax) Calcium Citrate + D 200 - 315 mcg PO DAILY 02/11/23 06/07/23 acetaminophen 500 mg tablet 1,000 mg PO Q8H PRN Pain 06/07/23 06/07/23 (Tylenol Extra Strength) dextromethorphan-guaifenesin 30 1 - 2 tab PO Q12H PRN Nasal 06/07/23 06/07/23 mg-600 mg tablet extended Congestion bybmlif40 hr (Mucinex DM) diphenhydramine HCl 25 mg tablet 25 mg PO .Q4-6 PRN .allergy 06/07/23 06/07/23 (Benadryl Allergy) empagliflozin 25 mg tablet 25 mg PO QAM 06/07/23 06/07/23 (Jardiance) famotidine 40 mg tablet 40 mg PO HS 06/07/23 06/07/23 nut.tx.gluc.intol,lac-free,soy 1 ea PO BID 06/07/23 06/07/23 (Glucerna oral liquid) Previous Rx's Medication Instructions Recorded levetiracetam 250 mg tablet 250 mg PO BID 90 days #180 tabs 10/15/22 (Keppra) phenytoin sodium extended 100 mg 200 mg (2 x 100 mg) PO BID 90 days 12/14/22 capsule (Dilantin Extended) #360 caps albuterol sulfate 90 mcg/actuation 2 puff inhalation QIDR PRN 03/03/23 aerosol inhaler (Ventolin HFA) shortness of breath or wheezing #6.7 grams dextromethorphan-guaifenesin 5 10 ml PO Q6H PRN cough #118 mL 03/03/23 mg-100 mg/5 mL oral liquid (Robitussin Cough-Chest Congestion DM) oseltamivir 75 mg capsule (Tamiflu) 75 mg PO BID #10 caps 06/10/23 Results & Data (ED) Vital Signs Vital Signs - 24 hr 06/11/23 08:43 06/11/23 08:56 06/11/23 09:10 Temperature 36.9 C Temperature Source Temporal Artery Scan Pulse Rate 86 87 Pulse Rate [Radial] Pulse Rate from SpO2 Sensor 86 Pulse Rhythm Regular Pulse Rhythm [Radial] Pulse Strength Normal Respiratory Rate 20 17 Respiratory Effort / Characteristics Non-Labored Spontaneous Respiratory Depth Normal Respiratory Pattern Blood Pressure 122/72 Blood Pressure [Right Arm] Blood Pressure Mean 88 Blood Pressure Mean [Right Arm] Blood Pressure Position Sitting Pulse Oximetry 96 96 96 Oxygen Delivery Method Room Air Room Air Sepsis Recent Fever Within 48 Hours No Sepsis New/Unexplained Change in Mental Status N/A Sepsis Action Taken by Nursing No Action Required 06/11/23 09:11 06/11/23 09:30 06/11/23 10:30 Temperature Temperature Source Pulse Rate 85 87 Pulse Rate [Radial] 80 Pulse Rate from SpO2 Sensor Pulse Rhythm Pulse Rhythm [Radial] Regular Pulse Strength Respiratory Rate 17 18 Respiratory Effort / Characteristics Non-Labored Respiratory Depth Normal Respiratory Pattern Regular Blood Pressure Blood Pressure [Right Arm] 125/68 Blood Pressure Mean Blood Pressure Mean [Right Arm] 87 Blood Pressure Position Pulse Oximetry 97 Oxygen Delivery Method Room Air Sepsis Recent Fever Within 48 Hours Sepsis New/Unexplained Change in Mental Status Sepsis Action Taken by Nursing 06/11/23 11:00 06/11/23 11:00 06/11/23 11:30 Temperature Temperature Source Pulse Rate 80 80 Pulse Rate [Radial] 81 Pulse Rate from SpO2 Sensor 81 80 Pulse Rhythm Pulse Rhythm [Radial] Regular Pulse Strength Respiratory Rate 18 15 14 Respiratory Effort / Characteristics Non-Labored Respiratory Depth Normal Respiratory Pattern Regular Blood Pressure 113/68 112/71 Blood Pressure [Right Arm] 113/68 Blood Pressure Mean 83 84 Blood Pressure Mean [Right Arm] 83 Blood Pressure Position Pulse Oximetry 96 97 99 Oxygen Delivery Method Room Air Sepsis Recent Fever Within 48 Hours Sepsis New/Unexplained Change in Mental Status Sepsis Action Taken by Skilled Nursing Medications Current Medication List: was personally reviewed by me Laboratory Data Attestation: I reviewed the patient's lab results. 06/11/23 10:00 06/11/23 10:00 Lab Results 06/11/23 Range/Units 10:00 WBC 6.20 (4.8-10.8) K/ul RBC 4.92 (4.20-5.40) M/uL Hgb 15.2 (12.0-16.0) g/dl Hct 44.6 (37.0-47.0) % MCV 90.7 (80.0-100.0) fL MCH 30.9 (25.0-34.0) pg MCHC 34.1 (32.0-36.0) g/dL RDW Std Deviation 50.1 H (36.4-46.3) fL RDW Coeff of Liliana 15.0 H (11.5-14.5) % Plt Count 151 (130-400) K/uL MPV 10.1 (9.4-12.4) fL Immature Gran % (Auto) 0.8 % Neut % (Auto) 78.4 % Lymph % (Auto) 11.0 % [place] % (Auto) 6.3 % Eos % (Auto) 3.2 % Baso % (Auto) 0.3 % Neut # (Auto) 4.86 (1.40-6.50) K/uL Lymph # (Auto) 0.68 L (1.20-3.40) K/uL [place] # (Auto) 0.39 (0.11-0.59) K/uL Eos # (Auto) 0.20 (0.00-0.50) K/uL Baso # (Auto) 0.02 (0.00-0.20) K/uL Immature Gran # (Auto) 0.05 (0.01-0.20) K/uL PT 9.6 (9.0-12.0) Seconds INR 0.9 (0.9-1.1) APTT 24 (21-31) Seconds PTT Ratio 0.9 VBG pH 7.37 (7.36-7.41) VBG pCO2 49 (38-50) mmHg VBG pO2 24 mmHg VBG HCO3 28 mmol/L VBG O2 Saturation < 60.0 % VBG Base Excess 2.2 mEq/L Sodium 136 (136-145) mmol/L Potassium 4.0 (3.5-5.1) mmol/L Chloride 101 (98-107) mmol/L Carbon Dioxide 27 (21-32) mmol/L Anion Gap 8 (3-11) BUN 11 (6-23) mg/dl Creatinine 0.59 L (0.6-1.2) mg/dl Est Cr Clr Drug Dosing 87.6 ml/min Est GFR ( Amer) 114.7 ml/min Est GFR (Non-Af Amer) 98.9 ml/min BUN/Creatinine Ratio 18.6 (10-20) Glucose 174 H (70-99(Fasting)) mg/dl Calcium 9.0 (8.6-10.3) mg/dl Magnesium 2.3 (1.7-2.4) mg/dl Total Bilirubin 0.5 (0.2-1.0) mg/dl AST 27 (13-39) U/L ALT 37 (7-52) U/L Alkaline Phosphatase 112 H (34-104) U/L Ammonia 20.0 (18-72) umol/L Total Creatine Kinase 176 (26-192) U/L Troponin I High Sens 3.1 (0-14) pg/ml Total Protein 7.2 (6.0-8.3) gm/dl Albumin 3.9 (3.4-5.0) gm/dl Globulin 3.3 (2.5-4.0) gm/dl Albumin/Globulin Ratio 1.2 (0.9-2) TSH 0.599 (0.300-4.500) uIu/ml Phenytoin 6.2 L (10-20) mcg/ml Administered Medications Discontinued Medications Sodium Chloride (Nss) 500 mls @ 999 mls/hr IV .Q31M DELMI Stop: 06/11/23 09:30 Last Infusion: 06/11/23 10:32 Dose: Infused Documented By: Admin: 06/11/23 09:53 Dose: 999 mls/hr Documented By: SLIM Imaging Data Attestation: I personally reviewed and interpreted this imaging study as follows: My Impression: 1 view chest x-ray was obtained in the emergency department. My interpretation is no free air or definite infiltrate, final report below. CT the brain was obtained in the emergency department. My interpretation is no intracranial hemorrhage or mass effect, final report below. Radiologist's Impression: Chest X-Ray 06/11/23 08:46 XR chest 1V portable CLINICAL HISTORY: weakness TECHNIQUE: Single frontal radiograph of the chest was obtained. Comparison: Comparison is made to chest radiograph 06/07/2023 FINDINGS: No lines and tubes are seen. The cardiomediastinal silhouette is normal. The lungs are clear. No evidence of pleural effusion or pneumothorax. IMPRESSION: No acute chest disease. ACT 112: Negative or not required by law. Electronically signed by: Omari Ramirez M.D. 06/11/2023 9:[address] 06/11/23 08:46 CT head/brain wo con CLINICAL HISTORY: AMS Technique: Contiguous axial CT images of the head were acquired from the base of the skull to the vertex without intravenous contrast administration. Images were viewed in brain, subdural and bone windows. Automated dose lowering techniques and/or adjustment according to patient size were utilized for this exam. Comparison: Comparison is made to CT head 06/07/2023 Findings: Ventriculomegaly out of proportion to the degree of sulcal enlargement is again seen. This finding is essentially unchanged from prior exam. Left maxillary sinus soft tissue thickening is seen. The orbits appear normal. There are no acute fractures of the calvaria or scalp swelling. Impression: No acute abnormalities. Ventriculomegaly is unchanged in extent from prior exam. ACT 112: Negative or not required by law. Electronically signed by: Omari Ramirez M.D. 06/11/2023 9:48 AM Discharge Plan Visit Data Chief Complaint: Illness Stated Complaint: LETHARGIC ED Provider: Nayan Carlson Discharge Problem: Generalized weakness, Acute alteration in mental status Patient Disposition: Being Evaluated by Hospitalist Forms Stand Alone Forms: My [facility] Prescriptions Prescriptions: No Action levetiracetam [Keppra] 250 mg tablet 250 mg PO BID 90 Days Qty: 180 3RF phenytoin sodium extended [Dilantin Extended] 100 mg capsule 200 mg PO BID 90 Days Qty: 360 3RF fluticasone propionate 50 mcg/actuation spray,suspension 2 sprays INTNAS QPM atorvastatin 40 mg tablet 40 mg PO HS glimepiride 2 mg tablet 2 mg PO QAM metformin 500 mg tablet extended release 24 hr 1,000 mg PO BID Women's One Daily 18 mg iron-400 mcg-500 mg Ca Tablet 1 tab PO QAM vitamin B complex Tablet 1 tab PO QAM polyethylene glycol 3350 [Miralax] 17 gram powder in packet 17 g PO BID Rx Instructions: HOLD IF HAS DIARRHEA ammonium lactate 12 % cream 1 applic TOPICAL QAM Rx Instructions: Apply to feet. docusate sodium [Colace] 100 mg Capsule 100 mg PO BID clozapine 200 mg tablet 600 mg PO DAILY@2000 glimepiride 1 mg Tablet 1 mg PO DIRECTED PRN (Reason: BSG >300.) triamcinolone acetonide 0.1 % cream 1 applic TOPICAL BID PRN (Reason: Rash) Rx Instructions: apply to right buttocks prn rash valacyclovir 500 mg Tablet 500 mg PO DAILY Calcium Citrate + D 200 - 315 mcg PO DAILY Rx Instructions: two tablets daily albuterol sulfate [Ventolin HFA] 90 mcg/actuation Hfa Aerosol Inhaler 2 puff inhalation QIDR PRN (Reason: shortness of breath or wheezing) Qty: 6.7 0RF dextromethorphan-guaifenesin [Robitussin Cough-Chest Samm DM] 5-100 mg/5 mL Liquid 10 ml PO Q6H PRN (Reason: cough) Qty: 118 0RF famotidine 40 mg tablet 40 mg PO HS Glucerna Liquid 1 ea PO BID Rx Instructions: Offer bid Jardiance 25 mg tablet 25 mg PO QAM diphenhydramine HCl [Benadryl Allergy] 25 mg Tablet 25 mg PO .Q4-6 PRN (Reason: .allergy) Mucinex DM 30-600 mg Tablet Extended Release 12 Hr 1 - 2 tab PO Q12H PRN (Reason: Nasal Congestion) acetaminophen [Tylenol Extra Strength] 500 mg tablet 1,000 mg PO Q8H PRN (Reason: Pain) oseltamivir [Tamiflu] 75 mg Capsule 75 mg PO BID Qty: 10 0RF Referrals Referrals: Delmy Jacobsen PA-C [Primary Care Provider] -
[2023-06-11] MEDS ORDERED: SODIUM CHLORIDE 0.9% 500 ML IV SCH (09:00)
--- NOTE | 2023-06-11 09:26 | XRay Report ---
XR chest 1V portable CLINICAL HISTORY: weakness TECHNIQUE: Single frontal radiograph of the chest was obtained. Comparison: Comparison is made to chest radiograph 06/07/2023 FINDINGS: No lines and tubes are seen. The cardiomediastinal silhouette is normal. The lungs are clear. No evid ence of pleural effusion or pneumothorax. IMPRESSION: No acute chest disease. ACT 112: Negative or not required by law. Electronically signed by: Omari Ramirez M.D. 06/11/2023 9:25 AM
--- NOTE | 2023-06-11 09:50 | CT Scan Report ---
CT head/brain wo con CLINICAL HISTORY: AMS Technique: Contiguous axial CT images of the head were acquired from the base of the skull to the dar amish without intravenous contrast administration. Images were viewed in brain, subdural and bone [facility]. Automated dose lowering techniques and/or adjustment according to patient size were utilized for this exam. Comparison: Comparison is made to CT head 06/07/2023 Findings: Ventriculomegaly out of proportion to the degree of sulcal enlargement is again seen. This finding is essentially unchanged from prior exam. Left maxillary sinus soft tissue thickening is seen. The orbits appear normal. There are no acute fra ctures of the calvaria or scalp swelling. Impression: No acute abnormalities. Ventriculomegaly is unchanged in extent from prior exam. ACT 112: Negative or not required by law. Electronically signed by: Omari Ramirez M.D. 06/11/2023 9:48 AM
[2023-06-11 10:09] LABS: Base Excess VBG 2.2 mEq/L; HCO3 VBG 28 mmol/L; Oxygen Saturation VBG < 60.0 %; PCO2 VBG 49 mmHg (38-50); PO2 VBG 24 mmHg; pH VBG 7.37 (7.36-7.41)
[2023-06-11 10:18] LABS: Basophils # (auto) 0.02 K/uL (0.00-0.20); Basophils % (auto) 0.3 %; Eosinophils % (auto) 3.2 %; Hematocrit (blood only) 44.6 % (37.0-47.0); Hemoglobin 15.2 g/dl (12.0-16.0); Immature Granulocytes # (auto) 0.05 K/uL (0.01-0.20); Immature Granulocytes % (auto) 0.8 %; Lymphocytes # (auto) 0.68 K/uL (1.20-3.40); Mean Corpuscular Hemoglobin 30.9 pg (25.0-34.0); Mean Corpuscular Hgb Conc 34.1 g/dL (32.0-36.0); Mean Corpuscular Volume 90.7 fL (80.0-100.0); Mean Platelet Volume 10.1 fL (9.4-12.4); Monocytes # (auto) 0.39 K/uL (0.11-0.59); Monocytes % (auto) 6.3 %; Neutrophils # (auto) 4.86 K/uL (1.40-6.50); Neutrophils % (auto) 78.4 %; Platelet Count 151 K/uL (130-400); RDW Standard Deviation 50.1 fL (36.4-46.3); Red Blood Count 4.92 M/uL (4.20-5.40)
[2023-06-11 10:31] LABS: Albumin Globulin Ratio 1.2 (0.9-2); Albumin Level 3.9 gm/dl (3.4-5.0); BUN Creatinine Ratio 18.6 (10-20); Bilirubin,Total 0.5 mg/dl (0.2-1.0); Creatinine Clr Calc Pharmacy 87.6 ml/min; Est GFR (African American) 114.7 ml/min; Est GFR (Non-African American) 98.9 ml/min; Globulin 3.3 gm/dl (2.5-4.0); Magnesium 2.3 mg/dl (1.7-2.4); Total Protein 7.2 gm/dl (6.0-8.3)
[2023-06-11 10:37] LABS: Troponin I High Sensitivity 3.1 pg/ml (0-14)
[2023-06-11 10:42] LABS: INR 0.9 (0.9-1.1); Partial Thromboplastin Ratio 0.9; Partial Thromboplastin Time 24 Seconds (21-31); Prothrombin Time 9.6 Seconds (9.0-12.0)
[2023-06-11 10:46] LABS: Thyroid Stimulating Hormone 0.599 uIu/ml (0.300-4.500)
--- NOTE | 2023-06-11 12:18 | History & Physical Report ---
Date of Service June 11, 2023 Assessment & Plan (1) Ambulatory dysfunction: (2) Generalized weakness: Plan: Patient is 63 year old female with a PMH of seizures, ambulatory dysfunction, cognitive dysfunction, schizophrenia, DM II, and other medical problems presents from [facility] with c/o generalized weakness and lethargy, with diagnosis of influenza on 06/07/23 and recent hospital discharge on 06/10/23. Ambulates with walker at baseline. In ER afebrile, vitals stable. No leukocytosis, gluc: 174, no other significant electrolyte abnormality, VBG WNL. Ammonia WNL/ TSH: 0.5 CT Head: no acute changes CXR: no acute infiltrate In ER given 500ml NSS UA pending Fall precautions PT/OT eval CBC, BMP in am Loose stool Had one reported episode of loose stool this morning If would have further diarrhea and plan to obtain stool cultures, c-diff (3) Influenza A: Plan: Not hypoxic Dx influenza on 06/07/23 and started on Tamiflu Finish course of Tamiflu Mucinex Incentive spirometer (4) DMII (diabetes mellitus, type 2): Plan: A1c: 5.8 on 05/18/2023 Hold home oral agents Novolog sliding scale per protocol (5) Mental disability: Plan: Resides at [facility] (6) Complex partial seizure: Plan: No recent seizures reported Continue Keppra, phenytoin Follows with neurology, Dr Marshall (7) Schizophrenia: Plan: Chronic auditory hallucinations. Reports at her baseline Continue clozapine (8) Dyslipidemia: Plan: Continue atorvastatin (9) GERD (gastroesophageal reflux disease): Plan: Continue famotidine (10) Hypertension: Plan: Stable No longer on antihypertensive medications DVT Prophylaxis Lovenox SQ Full Code as per discussion with patient and caregiver Follows with Dr Esqueda for routine care Pt was seen and care coordinated with Dr Whitlock. See addendum I spent a total of 75 minutes reviewing notes, outpatient records, labs, medication, coordinating, documenting and providing care for this patient excluding time spent in the performance of separately billed services. History of Present Illness Chief Complaint: weakness Primary Care Provider: Delmy Jacobsen PA-C Patient is 63 year old female with a PMH of seizures, ambulatory dysfunction, cognitive dysfunction, schizophrenia, DM II, and other medical problems presents from [facility] with c/o generalized weakness. Patient is a very poor h istorian due to cognitive issues. History obtained from caregiver, inpatient and outpatient chart review and ER staff. Patient was discharged from hospital yesterday admitted 06/07/2023-06/10/2023 for influenza A, generalized weakness, confusion was treated with Tamiflu and supportive care. Also had admission 05/17/2023-05/19/2023 for bronchitis, lactic acidosis, weakness, was empirically treated with doxycycline, MRI brain was negative for stroke. Caregiver reports yesterday brought patient back to [facility] and she was able to ambulate with walker, however needed assistance with dressing, which she usually does on her own. Later patient was found sitting on floor near her chair. She denied hitting her head, denied any other pain. She was able to get herself up to sit in wheelchair. Reports remaining amount of evening was more weak however was able to eat and drink normally. During the night staff noticed patient seemed more lethargic. Reports she slept 12 hours last night. This morning was very lethargic. Needed assistance with bathing and was even weak sitting in shower chair. Took morning medications however did not eat. Staff report patient is not talkative as much as usual. Reports this morning had 1 loose bowel movement. When asked patient states she feels tired. Also states is coughing. She is denying headache, chest pain, shortness of breath, neck pain, back pain, extremity pain, dysuria. Staff did not note any fever. Allergies Allergy/AdvReac Type Severity Reaction Status Date / Time divalproex sodium Allergy Unknown Unknown Verified 06/07/23 12:54 [From Depakote] salicylates Allergy Unknown Unknown Verified 06/07/23 12:54 valproic acid Allergy Unknown Unknown Verified 06/07/23 12:54 aspirin AdvReac Severe STOMACH Verified 06/07/23 12:54 ULCER BLEEDING Home Medications Medication Instructions Recorded Confirmed Type atorvastatin 40 mg tablet 40 mg PO HS 07/17/18 06/11/23 History glimepiride 2 mg tablet 2 mg PO QAM 07/17/18 06/11/23 History metformin 500 mg tablet,extended 1,000 mg PO BID 07/17/18 06/11/23 History release 24 hr multivit-iron 18 mg-folic acid 400 1 tab PO QAM 07/17/18 06/11/23 History mcg-calcium 500 mg-minerals tablet (Women's One Daily) vitamin B complex 1 tab PO QAM 08/25/18 06/11/23 History fluticasone propionate 50 2 sprays intranasal QPM 02/15/19 06/11/23 History mcg/actuation nasal spray,suspension ammonium lactate 12 % topical cream 1 applic topical QAM 05/21/19 06/11/23 History docusate sodium 100 mg capsule 100 mg PO BID 05/21/19 06/11/23 History (Colace) triamcinolone acetonide 0.1 % 1 applic topical BID PRN Rash 07/10/21 06/11/23 History topical cream clozapine 200 mg tablet 600 mg PO DAILY@199910/31/21 06/11/23 History valacyclovir 500 mg tablet 500 mg PO DAILY 02/18/22 06/11/23 History glimepiride 1 mg tablet 1 mg PO DIRECTED PRN BSG >300. 10/14/22 06/11/23 History levetiracetam 250 mg tablet 250 mg PO BID 90 days #180 tabs 10/15/22 06/11/23 Rx (Keppra) polyethylene glycol 3350 17 gram 17 g PO BID 10/19/22 06/11/23 History oral powder packet (Miralax) phenytoin sodium extended 100 mg 200 mg (2 x 100 mg) PO BID 90 days 12/14/22 06/11/23 Rx capsule (Dilantin Extended) #360 caps calcium citrate 315 mg-vitamin D3 2 tab PO QAM ##0 02/11/23 06/11/23 History 5 mcg (200 unit) tablet (Calcium Citrate + D) albuterol sulfate 90 mcg/actuation 2 puff inhalation QIDR PRN 03/03/23 06/11/23 Rx aerosol inhaler (Ventolin HFA) shortness of breath or wheezing #6.7 grams dextromethorphan-guaifenesin 5 10 ml PO Q6H PRN cough #118 mL 03/03/23 06/11/23 Rx mg-100 mg/5 mL oral liquid (Robitussin Cough-Chest Congestion DM) acetaminophen 500 mg tablet 1,000 mg PO Q8H PRN Pain 06/07/23 06/11/23 History (Tylenol Extra Strength) dextromethorphan-guaifenesin 30 1 - 2 tab PO Q12H PRN Nasal 06/07/23 06/11/23 History mg-600 mg tablet extended Congestion [id number] hr (Mucinex DM) diphenhydramine HCl 25 mg tablet 25 mg PO .Q4-6 PRN .allergy 06/07/23 06/11/23 History (Benadryl Allergy) empagliflozin 25 mg tablet 25 mg PO QAM 06/07/23 06/11/23 History (Jardiance) famotidine 40 mg tablet 40 mg PO HS 06/07/23 06/11/23 History nut.tx.gluc.intol,lac-free,soy 1 ea PO BID 06/07/23 06/11/23 History (Glucerna oral liquid) oseltamivir 75 mg capsule (Tamiflu) 75 mg PO BID 06/11/23 06/11/23 History Past Med/Surg History Medical History (Updated 06/11/23 @ 13:18 by Medina Ferrara PA-C) GERD (gastroesophageal reflux disease) Elevated lactic acid level Weakness AMS (altered mental status) DMII (diabetes mellitus, type 2) HSV (herpes simplex virus) anogenital infection Complex partial seizure Depression with anxiety Heart murmur Onychomycosis Hypertension Schizophrenia Surgical History History of colonoscopy Family History Mother Diabetes Other Seizures Social History Smoking Status: Unknown if ever smoked Hx Alcohol Use: No Hx Substance Use: No Preferred Language: Frisian Communication Ability: Impaired Communication Ability Comment: Intellectual Disability Visual Impairment: No Limitations Hearing Ability: Normal Regulatory Law Specialist Required: No Beliefs That Will Affect Care: None marital status: Single Current Living Situation: Personal Care Facility Current Living Situation Comment: [place] current occupational status: disabled Feels Safe at Home: Yes Assistive Devices: Cane and Walker Review of Systems Review of Systems: Unobtainable due to cognitive status Physical Exam Physical Exam: General: +lethargic, but in no apparent distress, thin elderly female Head: normocephalic, atraumatic Eyes: PERRL, EOM's intact, conjunctiva non-injected, anicteric ENT: normal inspection external ears, nose, mucous membranes dry Neck: supple, trachea midline, non-tender Lungs: +cough, clear, no respiratory distress, no wheezing/rhonchi/rales CV: RRR, no pretibial edema Abd: normal BS, soft, non-tender Ext: no cyanosis, no calf tenderness Neuro: Alert, oriented to person only +generalized weakness otherwise no focal deficits noted Skin: warm, dry Results & Data Results & Data Vital Signs (Past 12 Hours) Vital Signs Temp Pulse Pulse Resp BP BP Pulse Ox 06/11/23 12:00 85 14 116/75 97 06/11/23 11:30 80 14 112/71 99 06/11/23 11:00 80 15 113/68 97 06/11/23 11:00 81 18 113/68 96 06/11/23 10:30 80 18 125/68 97 06/11/23 09:30 87 17 06/11/23 09:11 85 06/11/23 09:10 87 17 96 06/11/23 08:56 96 06/11/23 08:43 36.9 C 86 20 122/72 96 O2 Del Method 06/11/23 12:00 06/11/23 11:30 06/11/23 11:00 06/11/23 11:00 Room Air 06/11/23 10:30 Room Air 06/11/23 09:30 06/11/23 09:11 06/11/23 09:10 06/11/23 08:56 Room Air 06/11/23 08:43 Room Air Laboratory Results Short CBC 06/11/23 Range/Units 10:00 WBC 6.20 (4.8-10.8) K/ul Hgb 15.2 (12.0-16.0) g/dl Hct 44.6 (37.0-47.0) % Plt Count 151 (130-400) K/uL BMP 06/11/23 10:00 Sodium 136 Potassium 4.0 Chloride 101 Carbon Dioxide 27 BUN 11 Creatinine 0.59 L Glucose 174 H Calcium 9.0 Cardiac Enzymes 06/11/23 Range/Units 10:00 Total Creatine Kinase 176 (26-192) U/L Liver Function 06/11/23 Range/Units 10:00 Total Bilirubin 0.5 (0.2-1.0) mg/dl AST 27 (13-39) U/L ALT 37 (7-52) U/L Alkaline Phosphatase 112 H (34-104) U/L Albumin 3.9 (3.4-5.0) gm/dl Diagnostic Findings Chest X-Ray 06/11/23 08:46 XR chest 1V portable CLINICAL HISTORY: weakness TECHNIQUE: Single frontal radiograph of the chest was obtained. Comparison: Comparison is made to chest radiograph 06/07/2023 FINDINGS: No lines and tubes are seen. The cardiomediastinal silhouette is normal. The lungs are clear. No evidence of pleural effusion or pneumothorax. IMPRESSION: No acute chest disease. ACT 112: Negative or not required by law. Electronically signed by: Omari Ramirez M.D. 06/11/2023 9:[address] 06/11/23 08:46 CT head/brain wo con CLINICAL HISTORY: AMS Technique: Contiguous axial CT images of the head were acquired from the base of the skull to the vertex without intravenous contrast administration. Images were viewed in brain, subdural and bone windows. Automated dose lowering techniques and/or adjustment according to patient size were utilized for this exam. Comparison: Comparison is made to CT head 06/07/2023 Findings: Ventriculomegaly out of proportion to the degree of sulcal enlargement is again seen. This finding is essentially unchanged from prior exam. Left maxillary sinus soft tissue thickening is seen. The orbits appear normal. There are no acute fractures of the calvaria or scalp swelling. Impression: No acute abnormalities. Ventriculomegaly is unchanged in extent from prior exam. ACT 112: Negative or not required by law. Electronically signed by: Omari Ramirez M.D. 06/11/2023 9:48 AM ECG Additional Comments: sinus rhythm, rate 86 per my interpretation Supervising Physician Co-Signing Physician Notes I have seen and examined the patient and have discussed the case with the provider above. I agree with the assessment and plan as stated. 63 yo F recently admitted with flu, sent home yesterday and remains lethargic and weak. Apparently she is mentating at her baseline, however, she is slower to respond and her affect is more flat than usual. Baseline ambulation is independent with walker and currently she is a 2 assist. Caregiver had to give history today 2/2 lethargy and cognitive slowing in patient. No stroke symptoms are present and no gross focal neurologic deficits. Generalized weakness is noted. She is otherwise WNWD. Abdomen is soft, NTND. Heart and lung exam is unremarkable. Workup today is unremarkable for new acute process. Cont supportive care as noted above and monitor for clinical improvement. Repeat therapy evaluations. I did ask caregiver if she would come evaluate Brittany prior to this discharge to ensure she felt comfortable with hospital discharge this go round. She verbalized understanding with intent to comply. Kamlesh, DO
[2023-06-11] MEDS ORDERED: guaiFENesin SUGAR FREE 100 MG/5 ML UDC PO STA (13:38)
[2023-06-11] MEDS ORDERED: DEXTROSE 50% 50 ML SYRINGE IV PRN (14:27)
[2023-06-11] MEDS ORDERED: SODIUM CHLORIDE 0.9% 1,000 ML IV SCH (14:27)
[2023-06-11] MEDS ORDERED: ACETAMINOPHEN 325 MG TAB PO PRN (14:27)
[2023-06-11] MEDS ORDERED: MAGNESIUM HYDROXIDE SUSP 30 ML UDC PO PRN (14:27)
[2023-06-11] MEDS ORDERED: GLUCOSE 40% GEL 15 GM TUBE PO PRN (14:27)
[2023-06-11] MEDS ORDERED: GLUCOSE 10 TAB/TUBE PO PRN (14:27)
[2023-06-11] MEDS ORDERED: ONDANSETRON INJ 2 MG/ML 2 ML VIAL IV PRN (14:27)
[2023-06-11] MEDS ORDERED: GLUCAGON FOR INJ 1 MG VIAL SQ PRN (14:27)
[2023-06-11] MEDS ORDERED: ALBUTEROL HFA 8 GM INHALER INH PRN (14:27)
[2023-06-11] MEDS ORDERED: POLYETHYLENE (MIRALAX) 17 GM PACK PO PRN (14:27)
[2023-06-11] MEDS ORDERED: CARBOHYDRATES FOR HYPOGLYCEMIA PO PRN (14:27)
[2023-06-11] MEDS: ENOXAPARIN INJ 40 MG/0.4 ML SYR SQ SCH (15:31)
[2023-06-11 15:50] LABS: C Reactive Protein 13.19 mg/dl (0-0.5)
[2023-06-11 16:50] LABS: Appearance Urine Clear (Clear); Bilirubin Urine Negative (Negative); Blood Urine Negative (Negative); Color Urine Yellow; Glucose Urine UA 3+ (Negative); Ketones Urine Trace (Negative); Leukocyte Esterase Urine Negative (Negative); Nitrite Urine Negative (Negative); Protein Urine Negative (Negative); Specific Gravity Urine 1.026 (1.000-1.030); Urobilinogen Urine Negative (Negative); pH Urine 8.5 (4.5-7.5)
[2023-06-11] MEDS: INSULIN ASPART PER UNIT CHARGE SC SCH ×2 (17:16→20:54)
--- NOTE | 2023-06-11 17:32 | Electrocardiogram Report ---
Test Reason : Blood Pressure : / mmHG Vent. Rate : 086 BPM Atrial Rate : 086 BPM P-R Int : 124 ms QRS Dur : 084 ms QT Int : 372 ms P-R-T Axes : 049 -32 044 degrees QTc Int : 445 ms Normal sinus rhythm Left axis deviation Abnormal ECG When compared with ECG of 07-JUN-2023 09:22, No significant change was found Confirmed by Leno Mccormick ([id number]) on 06/11/2023 5:32:10 PM Referred By: Confirmed By:Uriel Mccormick
[2023-06-11] MEDS: cloZAPine 100 MG TAB PO SCH (19:31)
[2023-06-11] MEDS: PROSOURCE NO CARB 30 ML/PKT PO SCH (20:20)
[2023-06-11] MEDS: PHENYTOIN SODIUM ER 100 MG CAP PO SCH (20:21)
[2023-06-11] MEDS: levETIRAcetam 250 MG TAB PO SCH (20:21)
[2023-06-11] MEDS: FAMOTIDINE 40 MG TABLET PO SCH (20:22)
[2023-06-11] MEDS: DOCUSATE SODIUM 100 MG CAP PO SCH (20:22)
[2023-06-11] MEDS: guaiFENesin 600 MG TABCR PO SCH ×2 (20:22→20:23)
[2023-06-11] MEDS: FLUTICASONE PROPIONATE NA SPR 16 GM BTL SCH (20:22)
[2023-06-11] MEDS: ATORVASTATIN 40 MG TAB PO SCH (20:23)
[2023-06-11] MEDS: OSELTAMIVIR PHOSPHATE 75 MG CAP PO SCH (20:24)
[2023-06-12 07:02] LABS: Hematocrit (blood only) 39.9 % (37.0-47.0); Hemoglobin 13.7 g/dl (12.0-16.0); Mean Corpuscular Hemoglobin 31.1 pg (25.0-34.0); Mean Corpuscular Hgb Conc 34.3 g/dL (32.0-36.0); Mean Corpuscular Volume 90.7 fL (80.0-100.0); Mean Platelet Volume 10.5 fL (9.4-12.4); Platelet Count 151 K/uL (130-400); RDW Coefficient of Variation 14.6 % (11.5-14.5); RDW Standard Deviation 48.7 fL (36.4-46.3); White Blood Count 5.94 K/ul (4.8-10.8)
[2023-06-12 07:35] LABS: Albumin Globulin Ratio 1.4 (0.9-2); Albumin Level 3.4 gm/dl (3.4-5.0); BUN Creatinine Ratio 20.8 (10-20); Bilirubin,Total 0.5 mg/dl (0.2-1.0); Calcium 8.5 mg/dl (8.6-10.3); Creatinine Clr Calc Pharmacy 105.1 ml/min; Est GFR (African American) 122.7 ml/min; Est GFR (Non-African American) 105.9 ml/min; Globulin 2.4 gm/dl (2.5-4.0); Total Protein 5.8 gm/dl (6.0-8.3)
[2023-06-12] MEDS: DOCUSATE SODIUM 100 MG CAP PO SCH ×2 (07:44→21:23)
[2023-06-12] MEDS: OSELTAMIVIR PHOSPHATE 75 MG CAP PO SCH (07:45)
[2023-06-12] MEDS: guaiFENesin 600 MG TABCR PO SCH ×3 (07:45→20:43)
[2023-06-12] MEDS: PHENYTOIN SODIUM ER 100 MG CAP PO SCH ×2 (07:45→21:22)
[2023-06-12] MEDS: PROSOURCE NO CARB 30 ML/PKT PO SCH ×2 (07:46→21:23)
[2023-06-12] MEDS: valACYclovir HCL 500 MG TABLET PO SCH (07:46)
[2023-06-12] MEDS: levETIRAcetam 250 MG TAB PO SCH ×2 (07:47→20:47)
[2023-06-12] MEDS: AMMONIUM LACTATE 12% LOTION 225 GM BTL EXT SCH (07:48)
[2023-06-12] MEDS: INSULIN ASPART PER UNIT CHARGE SC SCH ×4 (09:17→21:20)
--- NOTE | 2023-06-12 11:36 | Hospitalist Progress Note ---
Date of Service June 12, 2023 Assessment & Plan (1) Ambulatory dysfunction: (2) Generalized weakness: Plan: Patient is 63 year old female with a PMH of seizures, ambulatory dysfunction, cognitive dysfunction, schizophrenia, DM II, and other medical problems [place] [facility] [place] and lethargy, with diagnosis of influenza on 06/07/23 and recent hospital discharge on 06/10/23. Ambulates with walker at baseline. Recently hospitalized from 06/07 to 06/10 with influenza. PT OT recommended discharge back to shelter. Presents back with lethargy. She was also hospitalized earlier in May for generalized weakness. Discharged back to shelter at that time as well. CT Head: no acute changes CXR: no acute infiltrate Labs reviewed; no leukocytosis. Electrolytes within normal limits Repeat PT OT evaluation. Patient may have generalized physical deconditioning due to recent hospitalization/flu. May need rehab. (3) Influenza A: Plan: Dx influenza on 06/07/23 and started on Tamiflu Finished course of Tamiflu Mucinex Incentive spirometer (4) DMII (diabetes mellitus, type 2): Plan: A1c: 5.8 on 05/18/2023 Hold home oral agents Novolog sliding scale per protocol (5) Mental disability: Plan[place] [facility] [place]6) Complex partial seizure: Plan: No recent seizures reported Continue Keppra, phenytoin Follows with neurology, Dr Marshall (7) Schizophrenia: Plan: Chronic auditory hallucinations. Reports at her baseline Continue clozapine (8) Dyslipidemia: Plan: Continue atorvastatin (9) GERD (gastroesophageal reflux disease): Plan: Continue famotidine (10) Hypertension: Plan: Stable No longer on antihypertensive medications DVT Prophylaxis Lovenox SQ Full Code as per discussion with patient and caregiver Follows with Dr Esqueda for routine care Please note the above document was generated using voice recognition software. It may contain grammatical, syntax or spelling errors. Any formal questions or concerns about the content, text or information contained within the body of this dictation should be directly addressed to the provider for clarification Admission and Anticipated Discharge Date Admission Date: June 11, 2023 Subjective Patient seen and examined at bedside. She is sitting up on the bed; not in any distress. She is able to answer few questions. She denies being in pain or any discomfort. No complaints of fever, chills, chest pain, shortness of breath, abdominal pain or urinary symptoms. Review of Systems Review of Systems: All systems reviewed & are unremarkable except as noted in Subjective Physical Exam Physical Exam: General: Awake, alert oriented to self. Not in any distress Head: normocephalic, atraumatic Lungs: Bilateral clear breath sounds CV: RRR, no pretibial edema Abd: normal BS, soft, non-tender Ext: no cyanosis, no calf tenderness Neuro: Alert, oriented to person only +generalized weakness otherwise no focal deficits noted Skin: warm, dry Results & Data Results & Data Vital Signs (Past 12 Hours) Vital Signs Temp Pulse Pulse Pulse Resp BP BP 06/12/23 11:26 37.0 C 81 16 107/71 06/12/23 07:50 36.4 C L 77 18 129/75 06/12/23 07:26 73 06/12/23 07:14 06/12/23 02:15 37.1 C 72 17 108/69 06/12/23 02:15 06/12/23 00:00 77 14 06/12/23 00:00 114/72 06/11/23 23:56 36.5 C 75 13 123/70 06/11/23 23:55 06/11/23 23:53 76 13 06/11/23 23:53 123/70 Pulse Ox Pulse Ox O2 Del Method O2 Del Method 06/12/23 11:26 94 Room Air 06/12/23 07:50 94 Room Air 06/12/23 07:26 06/12/23 07:14 Room Air 06/12/23 02:15 94 Room Air 06/12/23 02:15 Room Air 06/12/23 00:00 95 06/12/23 00:00 06/11/23 23:56 95 Room Air 06/11/23 23:55 95 Room Air 06/11/23 23:53 95 06/11/23 23:53
[2023-06-12] MEDS: ENOXAPARIN INJ 40 MG/0.4 ML SYR SQ SCH (13:00)
[2023-06-12] MEDS: cloZAPine 100 MG TAB PO SCH (20:41)
[2023-06-12] MEDS: ATORVASTATIN 40 MG TAB PO SCH (20:42)
[2023-06-12] MEDS: FLUTICASONE PROPIONATE NA SPR 16 GM BTL SCH (20:47)
[2023-06-12] MEDS: FAMOTIDINE 40 MG TABLET PO SCH (20:47)
[2023-06-13 06:59] LABS: Basophils # (auto) 0.03 K/uL (0.00-0.20); Basophils % (auto) 0.3 %; Hematocrit (blood only) 40.9 % (37.0-47.0); Hemoglobin 14.1 g/dl (12.0-16.0); Immature Granulocytes # (auto) 0.13 K/uL (0.01-0.20); Immature Granulocytes % (auto) 1.3 %; Lymphocytes # (auto) 1.15 K/uL (1.20-3.40); Lymphocytes % (auto) 11.6 %; Mean Corpuscular Hemoglobin 31.2 pg (25.0-34.0); Mean Corpuscular Hgb Conc 34.5 g/dL (32.0-36.0); Mean Corpuscular Volume 90.5 fL (80.0-100.0); Mean Platelet Volume 10.3 fL (9.4-12.4); Monocytes # (auto) 0.65 K/uL (0.11-0.59); Monocytes % (auto) 6.6 %; Neutrophils # (auto) 7.95 K/uL (1.40-6.50); Neutrophils % (auto) 80.2 %; Platelet Count 169 K/uL (130-400); RDW Coefficient of Variation 14.7 % (11.5-14.5); RDW Standard Deviation 48.9 fL (36.4-46.3); Red Blood Count 4.52 M/uL (4.20-5.40); White Blood Count 9.91 K/ul (4.8-10.8)
[2023-06-13 07:30] LABS: BUN Creatinine Ratio 38.3 (10-20); Calcium 8.7 mg/dl (8.6-10.3); Creatinine Clr Calc Pharmacy 103.4 ml/min; Est GFR (African American) 123.6 ml/min; Est GFR (Non-African American) 106.6 ml/min; Potassium 3.9 mmol/L (3.5-5.1)
[2023-06-13] MEDS: valACYclovir HCL 500 MG TABLET PO SCH (08:25)
[2023-06-13] MEDS: PHENYTOIN SODIUM ER 100 MG CAP PO SCH ×2 (08:25→20:21)
[2023-06-13] MEDS: levETIRAcetam 250 MG TAB PO SCH ×2 (08:25→20:22)
[2023-06-13] MEDS: PROSOURCE NO CARB 30 ML/PKT PO SCH ×2 (08:25→20:19)
[2023-06-13] MEDS: AMMONIUM LACTATE 12% LOTION 225 GM BTL EXT SCH (08:26)
[2023-06-13] MEDS: guaiFENesin 600 MG TABCR PO SCH ×2 (08:26→20:18)
[2023-06-13] MEDS: DOCUSATE SODIUM 100 MG CAP PO SCH ×2 (08:28→21:53)
[2023-06-13] MEDS: INSULIN ASPART PER UNIT CHARGE SC SCH ×4 (09:26→20:35)
[2023-06-13] MEDS ORDERED: ALBUT/IPRATROP 3MG/0.5MG NEB 3 ML VIAL NEB SCH (11:00)
[2023-06-13] MEDS ORDERED: ALBUT/IPRATROP 3MG/0.5MG NEB 3 ML VIAL NEB PRN (11:12)
--- NOTE | 2023-06-13 12:56 | Hospitalist Progress Note ---
Date of Service June 13, 2023 Assessment & Plan (1) Ambulatory dysfunction: (2) Generalized weakness: Plan: Patient is 63 year old female with a PMH of seizures, ambulatory dysfunction, cognitive dysfunction, schizophrenia, DM II, and other medical problems presents from [facility] with c/o generalized weakness and lethargy, with diagnosis of influenza on 06/07/23 and recent hospital discharge on 06/10/23. Ambulates with walker at baseline. Recently hospitalized from 06/07 to 06/10 with influenza. PT OT recommended discharge back to longterm. Presents back with lethargy. She was also hospitalized earlier in May for generalized weakness. Discharged back to longterm at that time as well. CT Head: no acute changes CXR: no acute infiltrate Labs reviewed; no leukocytosis. Electrolytes within normal limits Repeat PT OT evaluation. Patient may have generalized physical deconditioning due to recent hospitalization/flu. May need rehab. (3) Influenza A: Plan: Dx influenza on 06/07/23 and started on Tamiflu Finished course of Tamiflu Mucinex Incentive spirometer (4) DMII (diabetes mellitus, type 2): Plan: A1c: 5.8 on 05/18/2023 Hold home oral agents Novolog sliding scale per protocol (5) Mental disability: Plan: Resides at [facility] (6) Complex partial seizure: Plan: No recent seizures reported Continue Keppra, phenytoin Follows with neurology, Dr Marshall (7) Schizophrenia: Plan: Chronic auditory hallucinations. Reports at her baseline Continue clozapine (8) Dyslipidemia: Plan: Continue atorvastatin (9) GERD (gastroesophageal reflux disease): Plan: Continue famotidine (10) Hypertension: Plan: Stable No longer on antihypertensive medications DVT Prophylaxis Lovenox SQ Full Code as per discussion with patient and caregiver DispositionPT OT evaluation pending for generalized weakness. Patient may need rehab. Case management on board. Please note the above document was generated using voice recognition software. It may contain grammatical, syntax or spelling errors. Any formal questions or concerns about the content, text or information contained within the body of this dictation should be directly addressed to the provider for clarification Admission and Anticipated Discharge Date Admission Date: June 11, 2023 Subjective Patient seen and examined at bedside. Comfortable; not in distress. Denies fever, chills, chest pain, shortness of breath, abdominal pain or urinary symptoms. No significant overnight events Review of Systems Review of Systems: All systems reviewed & are unremarkable except as noted in Subjective Physical Exam Physical Exam: General: Awake, alert oriented to self. Not in any distress Head: normocephalic, atraumatic Lungs: Bilateral clear breath sounds CV: RRR, no pretibial edema Abd: normal BS, soft, non-tender Ext: no cyanosis, no calf tenderness Neuro: Alert, oriented to person only +generalized weakness otherwise no focal deficits noted Skin: warm, dry Results & Data Results & Data Vital Signs (Past 12 Hours) Vital Signs Temp Pulse Pulse Resp BP Pulse Ox O2 Del Method 06/13/23 11:33 37.3 C 91 H 16 111/68 92 Room Air 06/13/23 07:55 37.0 C 84 18 104/69 94 Room Air 06/13/23 07:29 Room Air 06/13/23 07:02 78 06/13/23 02:52 36.9 C 76 18 102/68 92 Room Air
[2023-06-13] MEDS: ENOXAPARIN INJ 40 MG/0.4 ML SYR SQ SCH (13:17)
[2023-06-13] MEDS: FLUTICASONE PROPIONATE NA SPR 16 GM BTL SCH (20:18)
[2023-06-13] MEDS: CALAMINE/PRAMOXINE LOTION 180 APPLN/180 ML BTL EXT SCH (20:20)
[2023-06-13] MEDS: FAMOTIDINE 40 MG TABLET PO SCH (20:22)
[2023-06-13] MEDS: cloZAPine 100 MG TAB PO SCH (20:22)
[2023-06-13] MEDS: ATORVASTATIN 40 MG TAB PO SCH (20:22)
[2023-06-14 07:29] LABS: BUN Creatinine Ratio 46.8 (10-20); Calcium 8.9 mg/dl (8.6-10.3); Creatinine Clr Calc Pharmacy 103.4 ml/min; Est GFR (African American) 123.6 ml/min; Est GFR (Non-African American) 106.6 ml/min
[2023-06-14 07:47] LABS: Hematocrit (blood only) 41.8 % (37.0-47.0); Hemoglobin 14.1 g/dl (12.0-16.0); Mean Corpuscular Hemoglobin 30.7 pg (25.0-34.0); Mean Corpuscular Hgb Conc 33.7 g/dL (32.0-36.0); Mean Corpuscular Volume 90.9 fL (80.0-100.0); Mean Platelet Volume 10.3 fL (9.4-12.4); Platelet Count 177 K/uL (130-400); RDW Coefficient of Variation 14.7 % (11.5-14.5); RDW Standard Deviation 48.8 fL (36.4-46.3); White Blood Count 6.19 K/ul (4.8-10.8)
[2023-06-14 07:49] LABS: Basophils # (auto) 0.03 K/uL (0.00-0.20); Basophils % (auto) 0.5 %; Immature Granulocytes # (auto) 0.17 K/uL (0.01-0.20); Immature Granulocytes % (auto) 2.7 %; Lymphocytes # (auto) 1.44 K/uL (1.20-3.40); Lymphocytes % (auto) 23.3 %; Monocytes # (auto) 0.49 K/uL (0.11-0.59); Monocytes % (auto) 7.9 %; Neutrophils # (auto) 4.06 K/uL (1.40-6.50); Neutrophils % (auto) 65.6 %; Platelet Estimate Normal (Normal)
[2023-06-14] MEDS: CALAMINE/PRAMOXINE LOTION 180 APPLN/180 ML BTL EXT SCH ×2 (08:18→20:29)
[2023-06-14] MEDS: AMMONIUM LACTATE 12% LOTION 225 GM BTL EXT SCH (08:18)
[2023-06-14] MEDS: DOCUSATE SODIUM 100 MG CAP PO SCH ×2 (08:18→20:33)
[2023-06-14] MEDS: guaiFENesin 600 MG TABCR PO SCH ×2 (08:19→20:33)
[2023-06-14] MEDS: PROSOURCE NO CARB 30 ML/PKT PO SCH ×2 (08:19→20:30)
[2023-06-14] MEDS: levETIRAcetam 250 MG TAB PO SCH ×2 (08:20→20:32)
[2023-06-14] MEDS: valACYclovir HCL 500 MG TABLET PO SCH (08:20)
[2023-06-14] MEDS: PHENYTOIN SODIUM ER 100 MG CAP PO SCH ×2 (08:20→20:32)
[2023-06-14] MEDS: INSULIN ASPART PER UNIT CHARGE SC SCH ×4 (08:34→20:39)
[2023-06-14] MEDS: ENOXAPARIN INJ 40 MG/0.4 ML SYR SQ SCH (12:39)
--- NOTE | 2023-06-14 13:45 | Hospitalist Progress Note ---
Date of Service June 14, 2023 Assessment & Plan (1) Ambulatory dysfunction: (2) Generalized weakness: Plan: Patient is 63 year old female with a PMH of seizures, ambulatory dysfunction, cognitive dysfunction, schizophrenia, DM II, and other medical problems presents from [facility] with c/o generalized weakness and lethargy, with diagnosis of influenza on 06/07/23 and recent hospital discharge on 06/10/23. Ambulates with walker at baseline. Recently hospitalized from 06/07 to 06/10 with influenza. PT OT recommended discharge back to long term. Presents back with lethargy. She was also hospitalized earlier in May for generalized weakness. Discharged back to long term at that time as well. CT Head: no acute changes CXR: no acute infiltrate Labs reviewed; no leukocytosis. Electrolytes within normal limits Repeat PT OT evaluation. Patient may have generalized physical deconditioning due to recent flu. Will get PT and OT evaluation and may need placement for more physical therapy to see the improvement down the line (3) Influenza A: Plan: Recent influenza A Dx influenza on 06/07/23 and started on Tamiflu Finished course of Tamiflu Not having any cough and no shortness of breath Incentive spirometer (4) DMII (diabetes mellitus, type 2): Plan: A1c: 5.8 on 05/18/2023 Hold home oral agents Novolog sliding scale per protocol (5) Mental disability: Plan: Resides at [facility] Minimal conversation Likely to go back/rehab placement to get motor strength through physical (6) Complex partial seizure: Plan: No recent seizures reported Continue Keppra, phenytoin Follows with neurology, Dr Marshall No more seizures in the hospital (7) Schizophrenia: Plan: Chronic auditory hallucinations. Reports at her baseline Continue clozapine No acute symptoms (8) Dyslipidemia: Plan: Continue atorvastatin (9) GERD (gastroesophageal reflux disease): Plan: Continue famotidine (10) Hypertension: Plan: Stable No longer on antihypertensive medications DVT Prophylaxis Lovenox SQ Full Code as per discussion with patient and caregiver DispositionPT OT evaluation pending for generalized weakness. Patient may need rehab. Case management on board. Please note the above document was generated using voice recognition software. It may contain grammatical, syntax or spelling errors. Any formal questions or concerns about the content, text or information contained within the body of this dictation should be directly addressed to the provider for clarification Admission and Anticipated Discharge Date Admission Date: June 11, 2023 Subjective 06/14/2023 The patient was seen and examined in medical telemetry unit She has been feeling much better and although his pain less talker Denies any significant symptoms except generalized weakness as before Review of Systems Review of Systems: All systems reviewed and are unremarkable except as noted below Physical Exam Physical Exam: Sitting on a chair without any acute distress Constitutional: + ill appearing and + thin Eyes: PERRL, conjunctivae normal, anicteric sclerae ENMT: external ear and nose normal, oropharynx normal Neck: trachea midline, no thyromegaly Respiratory: no respiratory distress Auscultation: + diminished lung sounds and + crackles (Minimal crackles at the bases) Cardiovascular: Rate/Rhythm: regular rate and regular rhythm; not tachycardic Heart Sounds: normal S1 and normal S2; no murmur Extremities: no edema Gastrointestinal (Abdomen): Inspection/Auscultation: normal bowel sounds; abdomen not distended Percussion/Palpation: abdomen soft; abdomen nontender Musculoskeletal: No acute arthritis involving any of the joint Neurologic: Alert and awake. Does not talk much as usual. Has been moving limbs equally. Remains generally weak Results & Data Results & Data Vital Signs (Past 12 Hours) Vital Signs Temp Pulse Pulse Resp BP Pulse Ox O2 Del Method 06/14/23 11:19 36.5 C 72 20 101/69 96 Room Air 06/14/23 07:37 36.4 C L 74 20 103/69 96 Room Air 06/14/23 07:23 Room Air 06/14/23 07:09 75 06/14/23 03:16 36.3 C L 65 18 114/65 93 Room Air Laboratory Results Short CBC 06/14/23 Range/Units 06:35 WBC 6.19 (4.8-10.8) K/ul Hgb 14.1 (12.0-16.0) g/dl Hct 41.8 (37.0-47.0) % Plt Count 177 (130-400) K/uL BMP 06/14/23 06:35 Sodium 138 Potassium 4.0 Chloride 107 Carbon Dioxide 24 BUN 22 Creatinine 0.47 L Glucose 129 H Calcium 8.9 Medications Administered Current Inpatient Medications Acetaminophen (Acetaminophen 325 Mg Tab) 650 mg PO Q4H PRN PRN Reason: Pain or Fever Stop: 07/11/23 14:26 Albuterol (Albuterol Hfa 8 Gm Inhaler) 2 puffs INH QIDR PRN PRN Reason: shortness of breath or wheezing Stop: 07/11/23 14:26 Albuterol (Albut/Ipratrop 3mg/0.5mg Neb 3 Ml Vial) 3 ml NEB BIDR PRN; Protocol PRN Reason: Shortness Of Breath Or Wheezing Stop: 07/13/23 10:59 Atorvastatin Calcium (Atorvastatin 40 Mg Tab) 40 mg PO HS [facility] Stop: 07/11/23 20:59 Last Admin: 06/13/23 20:22 Dose: 40 mg Calamine/Pramoxine (Calamine/Pramoxine Lotion 180 Appln/180 Ml Btl) 1 appln EXT BID DELMI Stop: 07/13/23 20:59 Last Admin: 06/14/23 08:18 Dose: 1 appln Clozapine (Clozapine 100 Mg Tab) 600 mg PO DAILY@2000 [facility] Stop: 07/11/23 19:59 Last Admin: 06/13/23 20:22 Dose: 600 mg Dextrose (Dextrose 50% 50 Ml Syringe) 25 - 50 ml IV UD PRN; Protocol PRN Reason: Hypoglycemia Protocol Stop: 07/11/23 14:26 Docusate Sodium (Docusate Sodium 100 Mg Cap) 100 mg PO BID DELMI Stop: 07/11/23 20:59 Last Admin: 06/14/23 08:18 Dose: 100 mg Enoxaparin Sodium (Enoxaparin Inj 40 Mg/0.4 Ml Syr) 40 mg SQ Q24H DELMI Stop: 07/11/23 14:26 Last Admin: 06/14/23 12:39 Dose: 40 mg Famotidine (Famotidine 40 Mg Tablet) 40 mg PO HS DELMI Stop: 07/11/23 20:59 Last Admin: 06/13/23 20:22 Dose: 40 mg Fluticasone Propionate (Fluticasone Propionate Na Spr 16 Gm Btl) 2 sprays NA QPM DELMI Stop: 07/11/23 20:59 Last Admin: 06/13/23 20:18 Dose: 2 sprays Glucagon (Glucagon For Inj 1 Mg Vial) 1 mg SQ UD PRN; Protocol PRN Reason: Hypoglycemia Protocol Stop: 07/11/23 14:26 Glucose (Glucose 10 Tab/Tube) 4 - 8 tab PO UD PRN; Protocol PRN Reason: Hypoglycemia Treatment Stop: 07/11/23 14:26 Glucose (Glucose 40% Gel 15 Gm Tube) 15 - 30 gm PO UD PRN; Protocol PRN Reason: Hypoglycemia Protocol Stop: 07/11/23 14:26 Guaifenesin (Guaifenesin 600 Mg Tabcr) 1,200 mg PO Q12 DELMI Stop: 07/11/23 20:59 Last Admin: 06/14/23 08:19 Dose: 1,200 mg Insulin Aspart (Insulin Aspart Per Unit Charge) 0 units SC ACHS DELMI Stop: 07/11/23 16:29 Last Admin: 06/14/23 12:38 Dose: 4 units Lactic Acid (Ammonium Lactate 12% Lotion 225 Gm Btl) 1 gm EXT QAM DELMI Stop: 07/12/23 08:59 Last Admin: 06/14/23 08:18 Dose: 1 gm Levetiracetam (Levetiracetam 250 Mg Tab) 250 mg PO BID DELMI Stop: 07/11/23 20:59 Last Admin: 06/14/23 08:20 Dose: 250 mg Magnesium Hydroxide (Magnesium Hydroxide Susp 30 Ml Udc) 30 ml PO Q12H PRN PRN Reason: Constipation Stop: 07/11/23 14:26 Miscellaneous (Carbohydrates For Hypoglycemia ) 15 - 30 gm PO UD PRN PRN Reason: Hypoglycemia Protocol Stop: 07/11/23 14:26 Nutritional Formula (Prosource No Carb 30 Ml/Pkt) 1 ml PO BID DELMI Stop: 07/11/23 20:59 Last Admin: 06/14/23 08:19 Dose: 1 ml Ondansetron HCl (Ondansetron Inj 2 Mg/Ml 2 Ml Vial) 4 mg IV Q6H PRN PRN Reason: Nausea Stop: 07/11/23 14:26 Phenytoin Sodium (Phenytoin Sodium Er 100 Mg Cap) 200 mg PO BID DELMI Stop: 07/11/23 20:59 Last Admin: 06/14/23 08:20 Dose: 200 mg Polyethylene Glycol (Polyethylene (Miralax) 17 Gm Pack) 17 gm PO DAILY PRN PRN Reason: Constipation Stop: 07/11/23 14:26 Valacyclovir HCl (Valacyclovir Hcl 500 Mg Tablet) 500 mg PO DAILY DELMI Stop: 07/12/23 08:59 Last Admin: 06/14/23 08:20 Dose: 500 mg
[2023-06-14] MEDS: FLUTICASONE PROPIONATE NA SPR 16 GM BTL SCH (20:29)
[2023-06-14] MEDS: cloZAPine 100 MG TAB PO SCH (20:32)
[2023-06-14] MEDS: ATORVASTATIN 40 MG TAB PO SCH (20:33)
[2023-06-14] MEDS: FAMOTIDINE 40 MG TABLET PO SCH (20:34)
[2023-06-15] MEDS: INSULIN ASPART PER UNIT CHARGE SC SCH ×4 (09:16→20:49)
[2023-06-15] MEDS: CALAMINE/PRAMOXINE LOTION 180 APPLN/180 ML BTL EXT SCH ×2 (09:18→20:50)
[2023-06-15] MEDS: guaiFENesin 600 MG TABCR PO SCH ×2 (09:19→20:49)
[2023-06-15] MEDS: AMMONIUM LACTATE 12% LOTION 225 GM BTL EXT SCH (09:19)
[2023-06-15] MEDS: PHENYTOIN SODIUM ER 100 MG CAP PO SCH ×2 (09:20→20:49)
[2023-06-15] MEDS: DOCUSATE SODIUM 100 MG CAP PO SCH ×2 (09:20→20:49)
[2023-06-15] MEDS: valACYclovir HCL 500 MG TABLET PO SCH (09:20)
[2023-06-15] MEDS: levETIRAcetam 250 MG TAB PO SCH ×2 (09:21→20:49)
[2023-06-15] MEDS: PROSOURCE NO CARB 30 ML/PKT PO SCH ×2 (09:22→20:53)
[2023-06-15] MEDS: ENOXAPARIN INJ 40 MG/0.4 ML SYR SQ SCH (12:55)
--- NOTE | 2023-06-15 13:58 | Hospitalist Progress Note ---
Date of Service June 15, 2023 Assessment & Plan (1) Ambulatory dysfunction: (2) Generalized weakness: Plan: Patient is 63 year old female with a PMH of seizures, ambulatory dysfunction, cognitive dysfunction, schizophrenia, DM II, and other medical problems presents from [facility] with c/o generalized weakness and lethargy, with diagnosis of influenza on 06/07/23 and recent hospital discharge on 06/10/23. Ambulates with walker at baseline. Recently hospitalized from 06/07 to 06/10 with influenza. PT OT recommended discharge back to retirement. Presents back with lethargy. She was also hospitalized earlier in May for generalized weakness. Discharged back to retirement at that time as well. CT Head: no acute changes CXR: no acute infiltrate Labs reviewed; no leukocytosis. Electrolytes within normal limits Repeat PT OT evaluation. Patient may have generalized physical deconditioning due to recent flu. Will get PT and OT evaluation and may need placement for more physical therapy to see the improvement down the line [facility] came to eval pt today and feel she is not at baseline to return, discussed with CM to explore Rehab options (3) Influenza A: Plan: Recent influenza A Dx influenza on 06/07/23 and started on Tamiflu Finished course of Tamiflu Not having any cough and no shortness of breath Incentive spirometer droplet precautions (4) DMII (diabetes mellitus, type 2): Plan: A1c: 5.8 on 05/18/2023 Hold home oral agents Novolog sliding scale per protocol bsgs reviewed, relatively stable (5) Mental disability: Plan: Resides at [facility] Minimal conversation Likely to go back/rehab placement to get motor strength through physical (6) Complex partial seizure: Plan: No recent seizures reported Continue Keppra, phenytoin Follows with neurology, Dr Marshall No more seizures in the hospital (7) Schizophrenia: Plan: Chronic auditory hallucinations. Reports at her baseline Continue clozapine No acute symptoms (8) Dyslipidemia: Plan: Continue atorvastatin (9) GERD (gastroesophageal reflux disease): Plan: Continue famotidine (10) Hypertension: Plan: Stable No longer on antihypertensive medications DVT Prophylaxis Lovenox SQ Full Code as per discussion with [facility] and [facility] discussed with CM to explore rehab, will downgrade to med/surg Patient was seen and examined in collaboration with, Dr. Dao, please see addendum A total of 45 minutes was spent coordinating, documenting, and providing care for this patient excluding time spent in the performance of separately billed services. This included personally viewing all current laboratories and imaging studies, medication reconciliation, outpatient chart review, and discussion with specialists. Admission and Anticipated Discharge Date Admission Date: June 11, 2023 Supervising Physician Co-Signing Physician Notes Attending addendum: The patient was seen and examined in Medical telemetry unit. She has been feeling much better today Minimally communicative but denies any significant symptoms On examination Sitting on a chair without any acute distress Remains hemodynamically stable with unremarkable physical examination except general weakness Her labs, medications and imaging studies reviewed Generalized weakness with ambulatory dysfunction Awaiting placement Agree with assessment and plan as outlined above by Aylin Dao Subjective Patient was seen and examined in room 281. History of intellectual disability and influenza A. ROS unreliable/unobtainable due to intellectual disability and patient not verbalizing. She was seen and evaluated by PT and OT. [facility] came to evaluate her and they do not feel she is back to baseline. Review of Systems Review of Systems: All systems reviewed & are unremarkable except as noted in HPI & below Physical Exam Physical Exam: Gen: appears older than stated age, I.D. ill appearing, sitting up in bedside chair, doesn't say much, NAD, Alert HEENT: Normocephalic, atraumatic, conjunctivae moist, sclerae anicteric, mucous membranes moist dry Lung: Clear to Auscultation bilaterally with diminished breath sounds at bases, no wheezes/rales/rhonchi Heart: Regular rate, regular rhythm, no murmurs, rubs, or gallops Abdomen: Soft, NT, ND +BS x 4 Extremities: No edema Skin: Warm, no rash, negative turgor. Results & Data Results & Data Vital Signs (Past 12 Hours) Vital Signs Temp Pulse Pulse Resp BP Pulse Ox O2 Del Method 06/15/23 11:00 37.0 C 76 20 112/76 93 Room Air 06/15/23 08:00 73 06/15/23 07:43 Room Air 06/15/23 07:38 36.6 C 75 20 121/74 96 Room Air 06/15/23 04:00 36.5 C 72 18 105/68 94 Room Air Medications Administered Current Inpatient Medications Acetaminophen (Acetaminophen 325 Mg Tab) 650 mg PO Q4H PRN PRN Reason: Pain or Fever Stop: 07/11/23 14:26 Albuterol (Albuterol Hfa 8 Gm Inhaler) 2 puffs INH QIDR PRN PRN Reason: shortness of breath or wheezing Stop: 07/11/23 14:26 Albuterol (Albut/Ipratrop 3mg/0.5mg Neb 3 Ml Vial) 3 ml NEB BIDR PRN; Protocol PRN Reason: Shortness Of Breath Or Wheezing Stop: 07/13/23 10:59 Atorvastatin Calcium (Atorvastatin 40 Mg Tab) 40 mg PO HS DELMI Stop: 07/11/23 20:59 Last Admin: 06/14/23 20:33 Dose: 40 mg Calamine/Pramoxine (Calamine/Pramoxine Lotion 180 Appln/180 Ml Btl) 1 appln EXT BID DELIM Stop: 07/13/23 20:59 Last Admin: 06/15/23 09:18 Dose: 1 appln Clozapine (Clozapine 100 Mg Tab) 600 mg PO DAILY@1999 [facility] Stop: 07/11/23 19:59 Last Admin: 06/14/23 20:32 Dose: 600 mg Dextrose (Dextrose 50% 50 Ml Syringe) 25 - 50 ml IV UD PRN; Protocol PRN Reason: Hypoglycemia Protocol Stop: 07/11/23 14:26 Docusate Sodium (Docusate Sodium 100 Mg Cap) 100 mg PO BID DELMI Stop: 07/11/23 20:59 Last Admin: 06/15/23 09:20 Dose: 100 mg Enoxaparin Sodium (Enoxaparin Inj 40 Mg/0.4 Ml Syr) 40 mg SQ Q24H DELMI Stop: 07/11/23 14:26 Last Admin: 06/15/23 12:55 Dose: 40 mg Famotidine (Famotidine 40 Mg Tablet) 40 mg PO HS DELMI Stop: 07/11/23 20:59 Last Admin: 06/14/23 20:34 Dose: 40 mg Fluticasone Propionate (Fluticasone Propionate Na Spr 16 Gm Btl) 2 sprays NA QPM DELMI Stop: 07/11/23 20:59 Last Admin: 06/14/23 20:29 Dose: 2 sprays Glucagon (Glucagon For Inj 1 Mg Vial) 1 mg SQ UD PRN; Protocol PRN Reason: Hypoglycemia Protocol Stop: 07/11/23 14:26 Glucose (Glucose 10 Tab/Tube) 4 - 8 tab PO UD PRN; Protocol PRN Reason: Hypoglycemia Treatment Stop: 07/11/23 14:26 Glucose (Glucose 40% Gel 15 Gm Tube) 15 - 30 gm PO UD PRN; Protocol PRN Reason: Hypoglycemia Protocol Stop: 07/11/23 14:26 Guaifenesin (Guaifenesin 600 Mg Tabcr) 1,200 mg PO Q12 DELMI Stop: 07/11/23 20:59 Last Admin: 06/15/23 09:19 Dose: 1,200 mg Insulin Aspart (Insulin Aspart Per Unit Charge) 0 units SC ACHS DELMI Stop: 07/11/23 16:29 Last Admin: 06/15/23 12:56 Dose: 5 units Lactic Acid (Ammonium Lactate 12% Lotion 225 Gm Btl) 1 gm EXT QAM DELMI Stop: 07/12/23 08:59 Last Admin: 06/15/23 09:19 Dose: 1 gm Levetiracetam (Levetiracetam 250 Mg Tab) 250 mg PO BID DELMI Stop: 07/11/23 20:59 Last Admin: 06/15/23 09:21 Dose: 250 mg Magnesium Hydroxide (Magnesium Hydroxide Susp 30 Ml Udc) 30 ml PO Q12H PRN PRN Reason: Constipation Stop: 07/11/23 14:26 Miscellaneous (Carbohydrates For Hypoglycemia ) 15 - 30 gm PO UD PRN PRN Reason: Hypoglycemia Protocol Stop: 07/11/23 14:26 Nutritional Formula (Prosource No Carb 30 Ml/Pkt) 1 ml PO BID DELMI Stop: 07/11/23 20:59 Last Admin: 06/15/23 09:22 Dose: 1 ml Ondansetron HCl (Ondansetron Inj 2 Mg/Ml 2 Ml Vial) 4 mg IV Q6H PRN PRN Reason: Nausea Stop: 07/11/23 14:26 Phenytoin Sodium (Phenytoin Sodium Er 100 Mg Cap) 200 mg PO BID DELMI Stop: 07/11/23 20:59 Last Admin: 06/15/23 09:20 Dose: 200 mg Polyethylene Glycol (Polyethylene (Miralax) 17 Gm Pack) 17 gm PO DAILY PRN PRN Reason: Constipation Stop: 07/11/23 14:26 Valacyclovir HCl (Valacyclovir Hcl 500 Mg Tablet) 500 mg PO DAILY DELMI Stop: 07/12/23 08:59 Last Admin: 06/15/23 09:20 Dose: 500 mg
[2023-06-15] MEDS: cloZAPine 100 MG TAB PO SCH (20:49)
[2023-06-15] MEDS: ATORVASTATIN 40 MG TAB PO SCH (20:49)
[2023-06-15] MEDS: FAMOTIDINE 40 MG TABLET PO SCH (20:49)
[2023-06-15] MEDS: FLUTICASONE PROPIONATE NA SPR 16 GM BTL SCH (20:50)
[2023-06-16 07:18] LABS: Hematocrit (blood only) 38.5 % (37.0-47.0); Hemoglobin 13.6 g/dl (12.0-16.0); Mean Corpuscular Hemoglobin 31.5 pg (25.0-34.0); Mean Corpuscular Hgb Conc 35.3 g/dL (32.0-36.0); Mean Corpuscular Volume 89.1 fL (80.0-100.0); Mean Platelet Volume 10.7 fL (9.4-12.4); Platelet Count 211 K/uL (130-400); RDW Coefficient of Variation 14.5 % (11.5-14.5); RDW Standard Deviation 46.4 fL (36.4-46.3); Red Blood Count 4.32 M/uL (4.20-5.40); White Blood Count 5.58 K/ul (4.8-10.8)
[2023-06-16 07:31] LABS: Albumin Level 3.4 gm/dl (3.4-5.0); Bilirubin,Total 0.5 mg/dl (0.2-1.0); Calcium 8.6 mg/dl (8.6-10.3); Magnesium 1.9 mg/dl (1.7-2.4)
[2023-06-16 07:37] LABS: Albumin Globulin Ratio 1.4 (0.9-2); Creatinine Clr Calc Pharmacy 108.6 ml/min; Est GFR (African American) 125.3 ml/min; Est GFR (Non-African American) 108.1 ml/min; Globulin 2.5 gm/dl (2.5-4.0); Total Protein 5.9 gm/dl (6.0-8.3)
[2023-06-16 07:42] LABS: Basophils # (auto) 0.05 K/uL (0.00-0.20); Basophils % (auto) 0.9 %; Immature Granulocytes # (auto) 0.29 K/uL (0.01-0.20); Immature Granulocytes % (auto) 5.2 %; Lymphocytes # (auto) 1.55 K/uL (1.20-3.40); Lymphocytes % (auto) 27.8 %; Monocytes # (auto) 0.63 K/uL (0.11-0.59); Monocytes % (auto) 11.3 %; Neutrophils # (auto) 3.06 K/uL (1.40-6.50); Neutrophils % (auto) 54.8 %; Polychromasia 1+
[2023-06-16] MEDS: CALAMINE/PRAMOXINE LOTION 180 APPLN/180 ML BTL EXT SCH (09:58)
[2023-06-16] MEDS: AMMONIUM LACTATE 12% LOTION 225 GM BTL EXT SCH (09:58)
[2023-06-16] MEDS: PHENYTOIN SODIUM ER 100 MG CAP PO SCH (09:58)
[2023-06-16] MEDS: valACYclovir HCL 500 MG TABLET PO SCH (09:58)
[2023-06-16] MEDS: PROSOURCE NO CARB 30 ML/PKT PO SCH (09:58)
[2023-06-16] MEDS: levETIRAcetam 250 MG TAB PO SCH (09:59)
[2023-06-16] MEDS: DOCUSATE SODIUM 100 MG CAP PO SCH (09:59)
[2023-06-16] MEDS: guaiFENesin 600 MG TABCR PO SCH (09:59)
[2023-06-16] MEDS: INSULIN ASPART PER UNIT CHARGE SC SCH (09:59)
--- NOTE | 2023-06-16 11:12 | Discharge Summary ---
Discharge Summary Date of Service June 16, 2023 Notes For Next Care Provider Patient hospitalized for generalized weakness and ambulatory dysfunction after influenza A. Influenza A symptoms have resolved and droplet precautions have been removed. She will resume PT and OT via home health at [facility]. Medication Changes From Visit None Admission HPI Per Admitting Provider Patient is 63 year old female with a PMH of seizures, ambulatory dysfunction, cognitive dysfunction, schizophrenia, DM II, and other medical problems presents from [facility] with c/o generalized weakness. Patient is a very poor historian due to cognitive issues. History obtained from caregiver, inpatient and outpatient chart review and ER staff. Patient was discharged from hospital yesterday admitted 06/07/2023-06/10/2023 for influenza A, generalized weakness, confusion was treated with Tamiflu and supportive care. Also had admission 05/17/2023-05/19/2023 for bronchitis, lactic acidosis, weakness, was empirically treated with doxycycline, MRI brain was negative for stroke. Caregiver reports yesterday brought patient back to [facility] and she was able to ambulate with walker, however needed assistance with dressing, which she usually does on her own. Later patient was found sitting on floor near her chair. She denied hitting her head, denied any other pain. She was able to get herself up to sit in wheelchair. Reports remaining amount of evening was more weak however was able to eat and drink normally. During the night staff noticed patient seemed more lethargic. Reports she slept 12 hours last night. This morning was very lethargic. Needed assistance with bathing and was even weak sitting in shower chair. Took morning medications however did not eat. Staff report patient is not talkative as much as usual. Reports this morning had 1 loose bowel movement. When asked patient states she feels tired. Also states is coughing. She is denying headache, chest pain, shortness of breath, neck pain, back pain, extremity pain, dysuria. Staff did not note any fever. Admission Exam Per Admitting Provider General: +lethargic, but in no apparent distress, thin elderly female Head: normocephalic, atraumatic Eyes: PERRL, EOM's intact, conjunctiva non-injected, anicteric ENT: normal inspection external ears, nose, mucous membranes dry Neck: supple, trachea midline, non-tender Lungs: +cough, clear, no respiratory distress, no wheezing/rhonchi/rales CV: RRR, no pretibial edema Abd: normal BS, soft, non-tender Ext: no cyanosis, no calf tenderness Neuro: Alert, oriented to person only +generalized weakness otherwise no focal deficits noted Skin: warm, dry Principal Dx & Hospital Course #1 = Principal Diagnosis (1) Ambulatory dysfunction: (2) Generalized weakness: Patient is 63 year old female with a PMH of seizures, ambulatory dysfunction, cognitive dysfunction, schizophrenia, DM II, and other medical problems presents from [facility] with c/o generalized weakness and lethargy, with diagnosis of influenza on 06/07/23 and recent hospital discharge on 06/10/23. Ambulates with walker at baseline. Recently hospitalized from 06/07 to 06/10 with influenza. PT OT recommended discharge back to [facility]. Presents back with lethargy. She was also hospitalized earlier in May for generalized weakness. Discharged back to [facility] at that time as well. CT Head: no acute changes CXR: no acute infiltrate Labs reviewed; no leukocytosis. Electrolytes within normal limits Repeat PT OT evaluation. Patient may have generalized physical deconditioning due to recent flu. Pt medically stable Requires PT/OT services via home health at discharge If symptoms continue despite PT/OT via home health patient may require a higher level of care than is offered at [facility], for example assisted facility (3) Influenza A: Recent influenza A Dx influenza on 06/07/23 and started on Tamiflu Finished course of Tamiflu Not having any cough and no shortness of breath Incentive spirometer (4) DMII (diabetes mellitus, type 2): A1c: 5.8 on 05/18/2023 Hold home oral agents Novolog sliding scale per protocol bsgs reviewed, relatively stable (5) Mental disability: Resides at [facility] Minimal conversation chronic, stable (6) Complex partial seizure: No recent seizures reported Continue Keppra, phenytoin Follows with neurology, Dr Marshall No more seizures in the hospital (7) Schizophrenia: Chronic auditory hallucinations. Reports at her baseline Continue clozapine No acute symptoms (8) Dyslipidemia: Continue atorvastatin chronic, stable (9) GERD (gastroesophageal reflux disease): Continue famotidine (10) Hypertension: Stable No longer on antihypertensive medications Full Code as per discussion with patient and caregiver [facility]position[facility]charge back [facility] today with [facility] health, PT/OT Patient was seen and examined in collaboration with, Dr. Dao, please see addendum A total of 44 minutes was spent coordinating, documenting, and providing care for this patient excluding time spent in the performance of separately billed services. This included personally viewing all current laboratories and imaging studies, medication reconciliation, outpatient chart review, and discussion with specialists. Discharge Exam Gen: appears older than stated age, I.D. ill appearing, sitting up in bed, more conversive today, NAD, Alert HEENT: Normocephalic, atraumatic, conjunctivae moist, sclerae anicteric, mucous membranes moist dry Lung: Clear to Auscultation bilaterally with diminished breath sounds at bases, no wheezes/rales/rhonchi Heart: Regular rate, regular rhythm, no murmurs, rubs, or gallops Abdomen: Soft, NT, ND +BS x 4 Extremities: No edema Skin: Warm, no rash, negative turgor. Updated Medication List Medication Instructions Recorded Confirmed Type atorvastatin 40 mg tablet 40 mg PO HS 07/17/18 06/11/23 History glimepiride 2 mg tablet 2 mg PO QAM 07/17/18 06/11/23 History metformin 500 mg tablet,extended 1,000 mg PO BID 07/17/18 06/11/23 History release 24 hr multivit-iron 18 mg-folic acid 400 1 tab PO QAM 07/17/18 06/11/23 History mcg-calcium 500 mg-minerals tablet (Women's One Daily) vitamin B complex 1 tab PO QAM 08/25/18 06/11/23 History fluticasone propionate 50 2 sprays intranasal QPM 02/15/19 06/11/23 History mcg/actuation nasal spray,suspension ammonium lactate 12 % topical cream 1 applic topical QAM 05/21/19 06/11/23 History docusate sodium 100 mg capsule 100 mg PO BID 05/21/19 06/11/23 History (Colace) triamcinolone acetonide 0.1 % 1 applic topical BID PRN Rash 07/10/21 06/11/23 History topical cream clozapine 200 mg tablet 600 mg PO DAILY@199910/31/21 06/11/23 History valacyclovir 500 mg tablet 500 mg PO DAILY 02/18/22 06/11/23 History glimepiride 1 mg tablet 1 mg PO DIRECTED PRN BSG >300. 10/14/22 06/11/23 History levetiracetam 250 mg tablet 250 mg PO BID 90 days #180 tabs 10/15/22 06/11/23 Rx (Keppra) polyethylene glycol 3350 17 gram 17 g PO BID 10/19/22 06/11/23 History oral powder packet (Miralax) phenytoin sodium extended 100 mg 200 mg (2 x 100 mg) PO BID 90 days 12/14/22 06/11/23 Rx capsule (Dilantin Extended) #360 caps calcium citrate 315 mg-vitamin D3 2 tab PO QAM ##0 02/11/23 06/11/23 History 5 mcg (200 unit) tablet (Calcium Citrate + D) albuterol sulfate 90 mcg/actuation 2 puff inhalation QIDR PRN 03/03/23 06/11/23 Rx aerosol inhaler (Ventolin HFA) shortness of breath or wheezing #6.7 grams dextromethorphan-guaifenesin 5 10 ml PO Q6H PRN cough #118 mL 03/03/23 06/11/23 Rx mg-100 mg/5 mL oral liquid (Robitussin Cough-Chest Congestion DM) acetaminophen 500 mg tablet 1,000 mg PO Q8H PRN Pain 06/07/23 06/11/23 History (Tylenol Extra Strength) dextromethorphan-guaifenesin 30 1 - 2 tab PO Q12H PRN Nasal 06/07/23 06/11/23 History mg-600 mg tablet extended Congestion [id number] hr (Mucinex DM) diphenhydramine HCl 25 mg tablet 25 mg PO .Q4-6 PRN .allergy 06/07/23 06/11/23 History (Benadryl Allergy) empagliflozin 25 mg tablet 25 mg PO QAM 06/07/23 06/11/23 History (Jardiance) famotidine 40 mg tablet 40 mg PO HS 06/07/23 06/11/23 History nut.tx.gluc.intol,lac-free,soy 1 ea PO BID 06/07/23 06/11/23 History (Glucerna oral liquid) Hospital Stay Data Consultations 06/11/23 11:52 ED Decision to Admit Stat Diagnostic Imagining Performed Chest X-Ray 06/11/23 08:46 XR chest 1V portable CLINICAL HISTORY: weakness TECHNIQUE: Single frontal radiograph of the chest was obtained. Comparison: Comparison is made to chest radiograph 06/07/2023 FINDINGS: No lines and tubes are seen. The cardiomediastinal silhouette is normal. The lungs are clear. No evidence of pleural effusion or pneumothorax. IMPRESSION: No acute chest disease. ACT 112: Negative or not required by law. Electronically signed by: Omari Ramirez M.D. 06/11/2023 9:[address] 06/11/23 08:46 CT head/brain wo con CLINICAL HISTORY: AMS Technique: Contiguous axial CT images of the head were acquired from the base of the skull to the vertex without intravenous contrast administration. Images were viewed in brain, subdural and bone windows. Automated dose lowering techniques and/or adjustment according to patient size were utilized for this exam. Comparison: Comparison is made to CT head 06/07/2023 Findings: Ventriculomegaly out of proportion to the degree of sulcal enlargement is again seen. This finding is essentially unchanged from prior exam. Left maxillary sinus soft tissue thickening is seen. The orbits appear normal. There are no acute fractures of the calvaria or scalp swelling. Impression: No acute abnormalities. Ventriculomegaly is unchanged in extent from prior exam. ACT 112: Negative or not required by law. Electronically signed by: Omari Ramirez M.D. 06/11/2023 9:48 AM Pending Results Patient Have Any Pending Studies at Discharge: No Discharge Instructions Given to Patient (Per Discharging Provider) MEDICATION CHANGES: No medications. Continue your current medication regimen. SUMMARY OF TEST RESULTS: You were admitted to hospital secondary to generalized weakness from influenza A. You were seen and evaluated by physical therapy and you are being discharged with home health, PT and OT at [facility]. Your infectious workup was negative. CT head on admission was negative for acute changes. PENDING TEST RESULTS: None RECOMMENDATIONS FOR FOLLOW-UP: Please follow-up with primary care provider as scheduled. Continue PT and OT via home health. Continue home medications as scheduled. OTHER INSTRUCTIONS: Seek medical attention if you have: * temperature above 101 * chest pain or trouble breathing * abdominal pain, nausea, vomiting * diarrhea, dark stools or bloody stools * any unanswered questions or concerns Call 911 if symptoms are severe. Please take good care of yourself. It has been a pleasure taking care of you. Please take care of yourself. If you have any questions regarding your recent hospitalization please contact [facility] and request Lizabeth Escobedo @ [phone]. Kristine Rodriguez PA-C Total Time Total Time Spent Total Time Spent (In Minutes): 44 minutes Supervising Physician Co-Signing Physician Notes Attending addendum: The patient was seen and examined in medical telemetry unit She has been stable and has minimal cough but no shortness of breath She has been saturating normally on room air Remains generally weak but denies any other symptoms On examination Lying in bed comfortably Hemodynamically stable Chest-occasional crackles at the bases Heart-S1-S2 with 2/6 ESM over precordium Abdomen-benign Extremities-trace edema bilaterally Her labs and medications reviewed Generalized weakness with ambulatory dysfunction with recent history of influenza A Mental disability Agree with assessment and plan as outlined above by Aylin Dao
== END 2023-06-16 13:43 | disposition home health service (06) | DRG 948 ==
LOC: ED 08:37 → SUATTDRO 12:28 → EDINP 12:28 → 2N 06-12 01:57

== ENCOUNTER 2023-08-15 08:24 | Inpatient (IN) ==
--- OUTSIDE RECORDS SUMMARY | 2023-08-15 08:29 | External Medical Summary | Summary of Care ---
Author Name Unknown Organization [facility] Address [address] [place] [address] Phone [phone] Care Team Providers Care Fruit Harvester Name Role Phone Dheeraj NORWOOD MD, Vitor Baird Primary Care Provider [phone] Reason for Referral * Evaluate & Treat - Unlimited Visits (Within 30 days (routine)) - Authorized Specialty Diagnoses / Procedures Referred By Contac t Referred To Contact Pharmacist / Pharmacy Diagnoses Type 2 diabetes mellitus with hemoglobin A1c goal of less than 7.0% ([facility]) Carlita Louis PA-C [address] [place] [address] Referral ID Status Reason Start Date Expiration Date Visits Requested Visits Authorized [id number] Authorized Specialty Services Required 07/16/2023 99 99 Question Answer Referral Priority Within 30 days (routine) Where should this appointment be scheduled? [facility] Referring Provider Role: Specialist Specialty: Endo Reason for Referral: DM Target A1c: < 7 Comments Pharmacist Medication Therapy Management: Minimum frequency patient should be seen in person for medication management: as appropriate per clinical condition and patient status By my signature, I understand that my patient Brittany Oneill will have her medication therapy managed by the [facility] ([facility]) per established policies, procedures, and protocols. I also certify that this referral may serve as an initiation of service for the management of drug therapy in the above noted patient. [facility] providers will be responsible for scheduling patient visits, obtaining appropriate laboratory studies, and adjusting medication management therapy per patient's need, in addition to those roles spelled out in the clinic policy, procedures, and drug management protocols. I understand that the service provided by the [facility] is voluntary and have informed patient that they can refuse the service at their discretion. I am aware that the [facility] will provide me with a copy of the patient encounter [facility]. I authorize the [facility] to carry out these activities on my behalf. I consider this program to be a necessary part of the patient's medical care. Carlita Louis PA-C Reason for Visit * Evaluate & Treat - Unlimited Visits (Within 30 days (routine)) - Authorized Specialty Diagnoses / Procedures Referred By Contjagjit t Referred To Contact Endocrinology/Metabolism / Endocrinology Diagnoses Type 2 diabetes mellitus with hemoglobin A1c goal of less than 7.0% (HCC) Delmy Jacobsen PA-C [address] [place] [address] Referral ID Status Reason Start Date Expiration Date Visits Requested Visits Authorized [id number] Authorized Specialty Services Required 07/14/[phone] Encounter Details Date Type Department Care Team (Late st Contact Info) Description 07/16/2023 2:00 PM EST Telemedicine Endocrinology, [place] [address] [place] [address] Carlita Louis PA-C [address] [place] [address] Type 2 diabetes mellitus with hemoglobin A1c goal of less than 7.0% (HCC)*; Mild intellectual disability; OTHER URINARY INCONTINENCE Allergies Active Allergy Reactions Criticality Noted Date Comments Aspirin 08/05/2016 Depakote Er Unknown 09/12/2007 Salicylates Unknown 10/30/2003 aspirin documented as of this encounter (statuses as of 07/16/2023) Medications Medication Sig Dispensed Refills Start Date End Date Status LEVETIRACETAM 250 MG PO TABS 1 tab twwice daily 0 Active Blood Glucose Monitoring Suppl (NanotionUCH ULTRA SYSTEM) W/DEVICE KITIndications:Type 2 diabetes mellitus with hemoglobin A1c goal of less than 7.0% (HCC) Use as directed 4 times a day as needed for Hyperglycemia (high sugar) or Hypoglycemia (low sugar). f E11.9 1 Kit 0 017 Active MEDICAL INSTRUCTIONSIndications :Type 2 diabetes mellitus with hemoglobin A1c goal of less than 7.0% ([facility]) Check glucose daily before supper. May skip [...] and 2 Capsules before bedtime. 0 Active Boost 100 Calorie Smart Oral Liquid DAILY IN THE MORNING 0 023 Active Famotidine 40 MG Oral Tablet (Pepcid) Take 1 Tablet by mouth at bedtime. 30 Tablet 11 023 Active Ammonium Lactate 12 % External [...] hemoglobin A1c goal of less than 7.0% ([facility]) TEST BLOOD SUGAR before breakfast and supper FOR DIABETES 200 Strip 2 023 Active Fluticasone Propionate 50 MCG/ACT Nasal Suspension (Flonase)Indications:Ac nanci maxillary sinusitis, recurrence not specified INSTILL 2 [...] FOR DM 200 Each 1 023 Active Atorvastatin Calcium 40 MG Oral Tablet (Lipitor)Indications:Pu re hypercholesterolemia TAKE 1 TABLET BY MOUTH AT BEDTIME (DX: FOR CHOLESTEROL) 31 Tablet 11 023 Active Docusate Sodium 100 MG Oral Capsule (Colace)Indications:Con stipation, unspecified constipation type TAKE 1 CAPSULE BY MOUTH TWICE DAILY (DX: CONSTIPATION) 62 Capsule 023 Active B Complex-C Oral Tablet (Therapeutic B Complex w/C) Take 1 Tablet by mouth in the morning. In the morning.. 31 Tablet 024 Active Glimepiride 2 MG Oral Tablet (Amaryl)Indications:Typ e 2 diabetes mellitus with hemoglobin A1c goal of less than 7.0% (HCC) Take 1 Tablet by mouth 2 times a day with morning and evening meals. TAKE 1 TABLET BY MOUTH ONCE DAILY WITH FIRST MAIN MEAL OF THE DAY (DX: DIABETES) 60 Tablet 024 Active Glimepiride 1 MG Oral Tablet (Amaryl)Indications:Typ e 2 diabetes mellitus with hemoglobin A1c goal of less than 7.0% (HCC) Take one tablet daily in addition to Glimepiride 2mg if blood sugar is greater than 300. 30 Tablet 024 Active linaGLIPtin 5 MG Oral Tablet (Tradjenta)Indications: Type 2 diabetes mellitus with hemoglobin A1c goal of less than 7.0% (HCC) Take 1 Tablet by mouth in the morning. 30 Tablet 024 Active Glimepiride 1 MG Oral Tablet (Amaryl) Take one tablet daily in addition to Glimepiride 2mg if blood sugar is greater than 300. 30 Tablet 5 023 2023 Discontinued(R efill) metFORMIN HCl ER 500 MG Oral Tablet Extended Release 24 Hour (Glucophage XR) TAKE 2 TABLETS (1000MG) BY MOUTH TWICE DAILY FOR DIABETES TO BE BUBBLE PACKED. 124 Tablet 11 023 2023 Discontinued Glimepiride 2 MG Oral Tablet (Amaryl)Indications:Typ e 2 diabetes mellitus with hemoglobin A1c goal of less than 7.0% (HCC) TAKE 1 TABLET BY MOUTH ONCE DAILY WITH FIRST MAIN MEAL OF THE DAY (DX: DIABETES) 31 Tablet 11 023 2023 Discontinued(R efill) Empagliflozin 25 MG Oral Tablet (Jardiance) Take 1 Tablet by mouth in the morning. 90 Tablet 2 024 2023 Discontinued documented as of this encounter (statuses as of 07/16/2023) Active Problems Problem Noted Date Diagnosed Date [...] as of this encounter (statuses as of 07/16/2023) Resolved Problems Problem Noted Date Diagnosed Date Resolved Date Constipation 09/10/2012 03/07/2018 Overview: ICD-10 update of inactive term ACTIVE CASE MANAGEMENT Keke Solis RN [phone] 01/25/2008 03/03/2010 Type 2 diabetes mellitus wit h hemoglobin A1c goal of less than 7.0% 10/30/2003 03/14/2009 Overview: Per Diabetes Taxonomy. ICD-10 update of inactive term Intellectual disability 10/30/200302/15 Overview: ICD-10 update of inactive term DM type 2, not at goal 10/30/200309/11 Psychotic disorder 10/30/2003 0 documented as of this encounter (statuses as of 07/16/2023) Immunizations Name Administration Dates Next Due COVID-19 mRNA, LNP-s, No Pre serve, 2-Dose Series (Moderna) 07/10/2020,06/12/2020 COVID-19, mRNA, LNP-s, PF, B ooster, 100mcg/0.5mg (Moderna) 09/18/2021,04/01/2021 Covid-19, Mrna, Lnp-s, Pf, B ivalent, 50 Mcg, IM, 12 yrs and above (Moderna) 03/11/2022 Hepatitis B, 20+ yrs 09/10/2014,03/08/2014,02/06 PPD 03/09/2022, 0,03/08/2019,03/04,02/14/2015,01/31/2013,01/25/2012 ,03/26/2010,09/21/2008 Pneumococcal Conjugate Vacci ne, 20-valent ([id number]) 03/09/2022 Pneumococcal Polysaccharide PPV23 (Pneumovax) 09/16/2005 Seasonal [...] on file documented as of this encounter Patient Instructions * Patient Instructions* Carlita Louis PA-C - 07/16/2023 2:28 PM EST Follow Up: Return for Diabetes Return. | For: Diabetes Return | Check-out note: [facility] , another provider in 6-8 months and myself in 1 year. documented in this encounter Progress Notes * Carlita Louis PA-C - 07/16/2023 2:00 PM EST Patient location: HOME. I was in a hospital or clinic location. After connecting through televideo,patient was verified with two unique identifiers. 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 Methods to assure confidentiality were taken. Patient acknowledged consent and understanding of pr ivacy and security of the Telemedicine visit. The patient agreed to participate. 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 -dx in 2018 A1C 7.5% - FH unknown Current issues include -A1C down to 5.8% -has been having multiple hospital admissions, 6 since 02/2023 ( lactic acidosis, flu ) - admitted [facility] Current DM Rx: Glimepiride 2 mg am, Jardiance 25 mg daily ,having UTIs Metformin 1,000 mg BID Glimepiride 1 mg if > 300 Blood sugar monitoring - takes twice a day - fasting 80-180 Diet: - staff prepares meals - follows place method for portions Exercise: - still working twice a week - walking once a week Weight: Wt Readings from Last 4 Encounters: 07/14/23 56.9 kg (125 lb 6.4 oz) 06/23/23 54 kg (119 lb) 05/26/23 55.8 kg (123 lb) 05/04/23 54 kg (119 lb) Microvascular complications: Neuropathy: : NO. Followed by podiatry : NO. Current issues with feet: : NO Nephropathy: : NO. Last urine mc below. Retinopathy: : NO. Last eye exam < 1 year . Macrovascular complications: Stroke : NO Heart attack : NO Peripheral arterial disease : NO Risk factors: Hypertension: : YES Hyperlipidemia: :YES , on Lipitor 50 mg daily Smoking: : NO ASA: : NO PMH Past Medical History: Diagnosis Date Age-related osteoporosis without current pathological fracture 03/10/2023 Allergic rhinitis Choking due to food (regurgitated), initial encounter 03/22/2018 Constipation, chronic Convulsions (HCC) DM type 2, goal A1c below 7 03/14/2009 Per Diabetes Taxonomy. Mild intellectual disabilities Other specified types of schizophrenia, chronic condition Other urinary incontinence PSH Past Surgical History: Procedure Laterality Date COLONOSCOPY, DIAGNOSTIC (RECTUM) 08/29/2013 normal, repeat 10 yrs / COLONOSCOPY FLEXIBLE PROXIMAL DIAGNOSTIC performed by Ryan Sauceda MD at [facility] COLONOSCOPY, DIAGNOSTIC (RECTUM) 02/03/2023 COLONOSCOPY FLEXIBLE PROXIMAL DIAGNOSTIC performed by Lilo Smith DO at [facility] DIABETIC EYE EXAM 06/21/2006 Glacoma suspect, large optic cups DIABETIC EYE EXAM 07/11/2009 no diabetic retinopathy EGD, FLEXIBLE, DIAGNOSTIC 08/19/2021 normal / ESOPHAGOGASTRODUODENOSCOPY (EGD), FLEXIBLE, TRANSORAL, DIAGNOSTIC performed by Lilo Smith DO at [facility] EGD, FLEXIBLE, DIAGNOSTIC 02/03/2023 ESOPHAGOGASTRODUODENOSCOPY (EGD), FLEXIBLE, TRANSORAL, DIAGNOSTIC performed by Lilo Smith DO at [facility] UM SPECIALIST PAP SCREEN 10/15/2004 nurse obgyn exam at family planning INFORMATION 05/17/2005 Glaucoma suspect ou/no diabetic retinopathy, ptosis, bilateral MAMMOGRAM - BILATERAL 09/28/2006 benign findings, yearly mammograms appropriate, birad code 2 MAMMOGRAM SCREENING-BILATERAL 02/03/2005 normal MEDS Outpatient Medications Marked as Taking for the 07/16/23 encounter (Telemedicine) with Carlita Louis PA-C Medication Sig Glimepiride 1 MG Oral Tablet (Amaryl) Take one tablet daily in addition to Glimepiride 2mg if bloodsugar is greater than 300. Glimepiride 2 MG Oral Tablet (Amaryl) Take 1 Tablet by mouth 2 times a day with morning and eveningmeals. TAKE 1 TABLET BY MOUTH ONCE DAILY WITH FIRST MAIN MEAL OF THE DAY (DX: DIABETES) linaGLIPtin 5 MG Oral Tablet (Tradjenta) Take 1 Tablet by mouth in the morning. ALL Reviewed and updated in the appropriate section of the electronic health record SH Social History Tobacco Use Smoking status: Never Smokeless tobacco: Never Vaping Use Vaping Use: Never used Substance Use Topics Alcohol use: No Drug use: No FH Family History Problem Relation Age of Onset Diabetes Mother Breast Cancer No significant family history ROS 10 systems reviewed , as per HPI All other were negative. PE Gen: appears well, in NAD HEENT: no conjunctival injection, MMM Resp: normal respiratory pattern, no dyspnea with conversation CV: no cyanosis or edema Skin: no rash MSK: 4 extremities intact, RAMÍREZ Neuro: awake, alert, appropriate RECORDS I reviewed the available medical records regarding her diabetes management and have summarized the relevant information per HPI above. LABS Latest Reference Range & Units 07/14/23 16:58 Sodium 135 - 146 mmol/L 137 Potassium 3.5 - 5.1 mmol/L 4.5 Chloride 98 - 107 mmol/L 104 CO2 22 - 32 mmol/L 23 BUN 6 - 20 mg/dL 28 (H) Creatinine 0.5 - 1.0 mg/dL 0.6 Estimated Glomerular Filtration Rate >=60 mL/min >90 Anion Gap 7 - 15 mmol/L 10 Glucose 70 - 120 mg/dL 122 (H) Calcium 8.4 - 10.2 mg/dL 9.2 Lactate 0.4 - 2.0 mmol/L 1.2 Estimated Average Glucose <126 mg/dL 120 Hemoglobin A1C 4.0 - 5.6 % 5.8 (H) MIRELLA Oneill is a 63 year old female here for evaluation for type 2 diabetes. Dx in 2018 . A1C 5.8% . Multiple admissions since 02/2023 to [facility] . Hx of UTI and lactic acidosis. Recommend stopping Jardiance and metformin. Can increase glimepiride and start Tradjenta 5 mg daily. Discussed the importance of a balanced diet and daily exercise. Is taking Glucerna BID. PLAN Type 2 diabetes mellitus with hemoglobin A1c goal of less than 7.0% ([facility]) (Primary) - Glimepiride 2 MG Oral Tablet (Amaryl); Take 1 Tablet by mouth 2 times a day with morning and evening meals. TAKE 1 TABLET BY MOUTH ONCE DAILY WITH FIRST MAIN MEAL OF THE DAY (DX: DIABETES) - Glimepiride 1 MG Oral Tablet (Amaryl); Take one tablet daily in addition to Glimepiride 2mg if blood sugar is greater than 300. - linaGLIPtin 5 MG Oral Tablet (Tradjenta); Take 1 Tablet by mouth in the morning. - PHARMACIST MEDS THERAPY MGMT REFERRAL OP - HEMOGLOBIN A1C; Standing Mild intellectual disability OTHER URINARY INCONTINENCE -STOP metformin - STOP Jardiance - START Tradjenta - INCREASE glimepiride 2 mg BID - continue protocol of >300 take 1 glimepiride and test in 1 hour. Follow Up: Return for Diabetes Return. | For: Diabetes Return | Check-out note: [facility] , another provider in 6-8 months and myself in 1 year. Carlita Louis PA-C [facility] [address] [facility] [address] Phone: [phone] Fax: [phone] documented in this encounter Plan of Treatment Upcoming Encounters Date Type Department Care Team (Late st Contact Info) Description 07/22/2023 1:30 PM EST Telemedicine General Internal Medicine, [facility] [address], [place] [id number] Rose Almaguer MD [address], [place] [id number] 08/10/2023 3:00 PM EDT Office Visit [facility] [address] [facility] [place] [id number] Delmy Jacobsen PA-C [address] [facility] [place] [phone] 09/09/2023 11:20 AM EDT Office Visit [facility] [address] [facility] [place] [address] Delmy Jacobsen PA-C [address] [facility] [place] [phone] 02/15/2024 8:40 AM EDT Office Visit [facility] [address] [facility] [place] [address] Delmy Jacobsen PA-C [address] [place] [address] [id number] Scheduled Orders Name Type Priority Associated Diagnoses Orde r Schedule HEMOGLOBIN A1C Lab Routine Type 2 diabetes mellitus with hemoglobin A1c goal of less than 7.0% (HCC) Every 3 Months for 5 Occurrences starting 07/16/2023 until 07/15/2024 Scheduled Referrals Name Type Priority Associated Diagnoses Orde r Schedule PHARMACIST MEDS THERAPY MGMT REFERRAL OP Referral Within 30 days (routine) Type 2 diabetes mellitus with hemoglobin A1c goal of less than 7.0% (HCC) Ordered: 07/16/2023 Health Maintenance Due Date Last Done Comments HPV/Co-Test 1992 Cologuard 2007 Fecal Occult Blood Test 2007 Sigmoidoscopy 2007 Diabetic Eye Exam 07/30/2022 07/30/2021, , 06/07/2017, Additional history exists COVID-19 Vaccine (2022- season) 2023 03/11/2022, 09/18/2021, 04/01/2021, Additional history exists Depression Screening 03/09/2023 03/09/2022, 02/14/2015 (Discussed) *BISPHONATE OR OTHER ACCEPTABLE MEDICATION NEEDED FOR OSTEOPOROSIS (REFER TO SMARTSET #1146) 03/13/2023 Cervical Cancer Screening 06/04/2023 Pap Smear 06/04/2023 06/04/2020, 05/17, 03/04/2017, Additional history exists Albumin/Creatinine Ratio 08/22/2023 023, 07/15/2021, 10/20/2019, Additional history exists B-12 10/24/2023 10/23/2022, 04/0 11/2022, 03/12/2021, Additional history exists HbA1c 01/12/2024 07/14/2023, 02/14, 05/26/2022, Additional history exists Mammogram 01/22/2024 01/21/2023, 090 10/2021, 01/13/2021, Additional history exists Diabetic Foot Exam 03/10/2024 03/10/2023, 0 11/06/2021, 03/11/2020, Additional history exists GFR 07/14/2024 07/14/2023, 09/0 09/2022, 11/30/2022, Additional history exists DXA Scan 04/06/2025 04/06/2023 [...] D LEVEL ONCE IN A LIFETIME-USE SMARTSET# 26027 Completed 10/23/2022, 07/23/2022 Influenza Vaccine (FLU shot) Completed , 02/04/2022, 01/21/2021, Additional history exists GARDASIL-HPV IMMUNIZATION SERIES Aged Out No longer eligible based on patient's age to complete this topic MENINGOCOCCAL (MENACTRA/MENVEO) Aged Out No longer eligible based on patient's age to complete this topic documented as of this encounter Medical Devices Not on filedocumented as of this encounter Visit Diagnoses Diagnosis Type 2 diabetes mellitus with hemoglobin A1c goal of less than 7.0% ([facility])- Primary Mild intellectual disability Mild intellectual disabilities OTHER URINARY INCONTINENCE Other urinary incontinence documented in this encounter Care Teams Fruit Harvester Relationship Specialty Start Date End Date Vitor Esqueda III, MD [address] [place] [address] PCP - General Family Medicine 07/20/18 documented as of this encounter"
--- OUTSIDE RECORDS SUMMARY | 2023-08-15 08:29 | External Medical Summary | Summary of Care ---
Author Name Unknown Organization [facility] Address [address] [place] [address] Phone [phone] Care Team Providers Care Patient'S Librarian Name Role Phone Dheeraj NORWOOD MD, Vitor Baird Primary Care Provider [phone] Reason for Visit * Reason Onset Date Comments Advice 07/22/2023 Encounter Details Date Type Department Care Team (Late st Contact Info) Description 07/22/2023 Telephone Endocrinology, [place] [address], [place] [id number] Services, [facility] [address] [place] [address] Advice Allergies Active Allergy Reactions Criticality Noted Date Comments Aspirin 08/05/2016 Depakote Er Unknown 09/12/2007 Salicylates Unknown 10/30/2003 aspirin documented as of this encounter (statuses as of 07/22/2023) Medications Medication Sig Dispensed Refills Start Date End Date Status LEVETIRACETAM 250 MG PO TABS 1 tab twwice daily 0 Active Blood Glucose Monitoring Suppl (ONETOUCH ULTRA SYSTEM) W/DEVICE KITIndications:Type 2 diabetes mellitus [...] (may refer to handout) 1 Each 1 10/13/201 7 Active cloZAPine 200 MG Oral Tablet [...] at bedtime. 30 Tablet 11 3 Active Ammonium Lactate 12 % External [...] A1c goal of less than 7.0% ([facility]) TEST BLOOD SUGAR before breakfast and [...] FOR DM 200 Each 1 3 Active Atorvastatin Calcium 40 MG Oral Tablet (Lipitor)Indications:Pur e hypercholesterolemia TAKE 1 TABLET BY MOUTH AT BEDTIME (DX: FOR CHOLESTEROL) 31 Tablet 11 3 Active Docusate Sodium 100 MG Oral Capsule (Colace)Indications:Cons tipation, unspecified constipation type TAKE 1 CAPSULE BY MOUTH TWICE DAILY (DX: CONSTIPATION) 62 Capsule 11 3 Active B Complex-C Oral Tablet (Therapeutic B Complex w/C) Take 1 Tablet by mouth in the morning. In the morning.. 31 Tablet 11 4 Active Glimepiride 2 MG Oral Tablet (Amaryl)Indications:Type 2 diabetes mellitus with hemoglobin A1c goal of less than 7.0% (HCC) Take 1 Tablet by mouth 2 times a day with morning and evening meals. TAKE 1 TABLET BY MOUTH ONCE DAILY WITH FIRST MAIN MEAL OF THE DAY (DX: DIABETES) 60 Tablet 11 4 Active Glimepiride 1 MG Oral Tablet (Amaryl)Indications:Type 2 diabetes mellitus with hemoglobin A1c goal of less than 7.0% (HCC) Take one tablet daily in addition to Glimepiride 2mg if blood sugar is greater than 300. 30 Tablet 5 4 Active linaGLIPtin 5 MG Oral Tablet (Tradjenta)Indications:T ype 2 diabetes mellitus with hemoglobin A1c goal of less than 7.0% (HCC) Take 1 Tablet by mouth in the morning. 30 Tablet 11 4 Active documented as of this encounter (statuses as of 07/22/2023) Active Problems Problem Noted Date Diagnosed Date [...] as of this encounter (statuses as of 07/22/2023) Resolved Problems Problem Noted Date Diagnosed Date Resolved Date Constipation 09/10/2012 03/07/2018 Overview: ICD-10 update of inactive term ACTIVE CASE MANAGEMENT Keke Solis RN [phone] 01/25/2008 03/03/2010 Type 2 diabetes mellitus wit h hemoglobin A1c goal of less than 7.0% 10/30/2003 03/14/2009 Overview: Per Diabetes Taxonomy. ICD-10 update of inactive term Intellectual disability 10/30/200302/15 Overview: ICD-10 update of inactive term DM type 2, not at goal 10/30/200309/11 Psychotic disorder 10/30/2003 0 documented as of this encounter (statuses as of 07/22/2023) Immunizations Name Administration Dates Next Due COVID-19 mRNA, LNP-s, No Pre serve, 2-Dose Series (Moderna) 07/10/2020,06/12/2020 COVID-19, mRNA, LNP-s, PF, B ooster, 100mcg/0.5mg (Moderna) 09/18/2021,04/01/2021 Covid-19, Mrna, Lnp-s, Pf, B ivalent, 50 Mcg, IM, 12 yrs and above (Moderna) 03/11/2022 Hepatitis B, 20+ yrs 09/10/2014,03/08/2014,02/06 PPD 03/09/2022, 0,03/08/2019,03/04,02/14/2015,01/31/2013,01/25/2012 ,03/26/2010,09/21/2008 Pneumococcal Conjugate Vacci ne, 20-valent ([id number]) 03/09/2022 Pneumococcal Polysaccharide PPV23 (Pneumovax) 09/16/2005 Seasonal [...] encounter Miscellaneous Notes * Telephone Encounter - Natalia Rivero OSA - 07/22/2023 9:05 AM EST Good morning, Is there any way the link for her appointment today could be resent to a different email, . Thank you documented in this encounter Plan of Treatment Upcoming Encounters Date Type Department Care Team (Late st Contact Info) Description 07/22/2023 1:30 PM EST Telemedicine General Internal Medicine, [facility] [address] [place] [address] Rose Almaguer MD [address] [place] [address] 08/10/2023 3:00 PM EDT Office Visit [facility] [address] [place] [address] Delmy Jacobsen PA-C [address] [place] [id number] 09/09/2023 11:20 AM EDT Office Visit [facility] [address] [place] [address] Delmy Jacobsen PA-C [address] [place] [id number] 10/19/2023 3:20 PM EDT Telemedicine Endocrinology, [place] [address] [place] [address] [place] Pharmac[facility] Endocrin[facility] [address] [place] [address] 01/25/2024 2:15 PM EDT Telemedicine Endocrinology, [place] [address] [place] [address] Kristine Lopez CRNP [address] [place] [address] 02/15/2024 8:40 AM EDT Office Visit [facility] [address] [place] [address] Delmy Jacobsen PA-C [address] [place] [address] 07/19/2024 10:30 AM EST Telemedicine Endocrinology, [place] [address] [place] [address] Carlita Louis PA-C [address] [facility] [address] [address] Health Maintenance Due Date Last Done Comments [...] 05/26/2022, Additional history exists Mammogram 01/22/2024 01/21/2023, 09/0 [...] D LEVEL ONCE IN A LIFETIME-USE SMARTSET# [id number] Completed 10/23/2022, 07/23/2022 Influenza Vaccine (FLU shot) Completed , 02/04/2022, 01/21/2021, Additional history exists GARDASIL-HPV IMMUNIZATION SERIES Aged Out No longer eligible based on patient's age to complete this topic MENINGOCOCCAL (MENACTRA/MENVEO) Aged Out No longer eligible based on patient's age to complete this topic documented as of this encounter Medical Devices Not on filedocumented as of this encounter Care Teams Patient'S Librarian Relationship Specialty Start Date End Date Vitor Esqueda III, MD [address] [place] [address] PCP - General Family Medicine 07/20/18 documented as of this encounter
--- OUTSIDE RECORDS SUMMARY | 2023-08-15 08:29 | External Medical Summary | Summary of Care ---
Author Name Unknown Organization [facility] Address [address] [place] [address] Phone [phone] Care Team Providers Care Linen Manager Name Role Phone Dheeraj NORWOOD MD, Vitor Baird Primary Care Provider [phone] Reason for Visit * Reason Comments DSMT INITIAL * Evaluate & Treat - Unlimited Visits (Within 10 days (routine)) - Authorized Specialty Diagnoses / Procedures Referred By Ge t Referred To Contact Title I Math Tutor / Nutrition Services Diagnoses Type 2 diabetes mellitus with hemoglobin A1c goal of less than 7.0% (HCC) Rose Almaguer MD [address] [place] [address] Referral ID Status Reason Start Date Expiration Date Visits Requested Visits Authorized [id number] Authorized Specialty Services Required 07/22/[phone] Encounter Details Date Type Department Care Team (Latest Contact Info) Description 07/30/2023 8:00 AM EDT Nutrition Services Reyes Hawkins [address] [place] [address] Brenda Rosales RDN [address] [place] [address] Type 2 diabetes mellitus with hemoglobin A1c goal of less than 7.0% (HCC)*; Mild intellectual disability; PARANOID SCHIZO-CHRONIC; Seizure disorder, simple partial, 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) Allergies Active Allergy Reactions Criticality Noted Date Comments Aspirin 08/05/2016 Depakote Er Unknown 09/12/2007 Salicylates Unknown 10/30/2003 aspirin documented as of this encounter (statuses as of 07/30/2023) Medications Medication Sig Dispensed Refills Start Date End Date Status LEVETIRACETAM 250 MG PO TABS 1 tab twwice daily 0 Active Blood Glucose Monitoring Suppl (VivoTOUCH ULTRA SYSTEM) W/DEVICE KITIndications:Type 2 diabetes mellitus [...] A1c goal of less than 7.0% (HCC) TEST BLOOD SUGAR before breakfast and supper [...] hemoglobin A1c goal of less than 7.0% ([facility]) Take 1 Tablet by mouth in the morning. 30 Tablet 11 4 Active documented as of this encounter (statuses as of 07/30/2023) Active Problems Problem Noted Date Diagnosed Date [...] as of this encounter (statuses as of 07/30/2023) Resolved Problems Problem Noted Date Diagnosed Date Resolved Date Constipation 09/10/2012 03/07/2018 Overview: ICD-10 update of inactive term ACTIVE CASE MANAGEMENT Keke Solis RN [phone] 01/25/2008 03/03/2010 Type 2 diabetes mellitus wit h hemoglobin A1c goal of less than 7.0% 10/30/2003 03/14/2009 Overview: Per Diabetes Taxonomy. ICD-10 update of inactive term Intellectual disability 10/30/200302/15 Overview: ICD-10 update of inactive term DM type 2, not at goal 10/30/200309/11 Psychotic disorder 10/30/2003 0 documented as of this encounter (statuses as of 07/30/2023) Immunizations Name Administration Dates Next Due COVID-19 mRNA, LNP-s, No Pre serve, 2-Dose Series (Moderna) 07/10/2020,06/12/2020 COVID-19, mRNA, LNP-s, PF, B ooster, 100mcg/0.5mg (Moderna) 09/18/2021,04/01/2021 Covid-19, Mrna, Lnp-s, Pf, B ivalent, 50 Mcg, IM, 12 yrs and above (Moderna) 03/11/2022 Hepatitis B, 20+ yrs 09/10/2014,03/08/2014,02/06 PPD 03/09/2022, 0,03/08/2019,03/04,02/14/2015,01/31/2013,01/25/2012 ,03/26/2010,09/21/2008 Pneumococcal Conjugate Vacci ne, 20-valent ([id number]) 03/09/2022 Pneumococcal Polysaccharide PPV23 (Pneumovax) 09/16/2005 Seasonal [...] Sign Reading Time Taken Comments Blood Pressure - - Pulse - - Temperature - - Respiratory Rate - - Oxygen Saturation - - Inhaled Oxygen Concentration - - Weight 57 kg (125 lb 9.6 oz) 07/30/2023 8:09 AM EDT Height 167.6 cm (5' 6") 07/30/2023 8:09 AM EDT Body Mass Index 20.27 07/30/2023 8:09 AM EDT documented in this encounter Patient Instructions * Patient Instructions* Brenda Rosales RDN - 07/30/2023 8:56 AM EDT Participant will use ADA plate model for eating evening meal. Aim for 2-3 servings of carb's per meal (30-45 grams). Have staff familiarize themselves with recommended portion sizes of high-carb foods that Brittany eats(see handout). Also review nutrition labels for total grams of carb's. documented in this encounter Progress Notes * Brenda Rosales RDN - 07/30/2023 8:09 AM EDT DIABETES SELF-MANAGEMENT TRAINING/INITIAL NOTE Name: Brittany Oneill Date: 07/30/2023 Participant was seen in clinic in person today. She is accompanied by a [facility] staff member, Dena today. Last order of DIABETES MANAGEMENT EDUCATION (ADA) REFERRAL was found on 07/22/2023 from Telemedicine on 07/22/2023 No order of CLINICAL NUTRITION AND DIABETES EDUCATION ANNUAL RENEWAL is found. No order of PEDIATRIC DIABETES MANAGEMENT EDUCATION (ADA) REFERRAL OP is found. ADA referral in place? Yes Participant scheduled for 1:1 training due to lack of classes scheduled within 2 months of appointment. Of note: questions answered by staff member from participant's facility as she is non-verbal. What diabetes concerns and/or barriers to care would you like to discuss in your appointment: staffnaifer wants to know how to better manage participant's glucose levels. States participant had 3 admissions to [facility] in May 2023. In your words, what is diabetes? It's a disease that affects your pancreas and you cannot make enough insulin so you blood sugars go high or low. Do you know the risks of uncontrolled diabetes? No Do you believe that diabetes can be controlled? Yes Are you ready to make small changes to help with diabetes self-management: Yes What type of diabetes do you have? Type 2 Diabetes diagnosis year: 2008 Do you have a family history of diabetes? Unknown Have you had any previous diabetes education? Yes Support systems: Care givers, parents Barriers to care: mild intellectual disability, vision and hearing issues unknown per caregiver. Participant being seen by Neurologist, Dr Marshall and Psychiatrist Luis Oneill. Special Needs: Instruct caregivers Psychosocial Screening: Lately have you been feeling down, depressed or hopeless most of the day? No How Do You Manage Stress? Deep breathing techniques Positive imagery Use "safe" words Write letters Does seek & find puzzles Plays cat Talks to boyfriend Food Insecurity: Within the past 12 months, I worried whether our food would run out before we got money to buy more. No Within the past 12 months, the food we bought just did not last and we did not have money to buy more. No Sleep Health: Addressed - How many hours are you sleeping during the night? 10-11 hours Do you have difficulty falling or staying asleep? No Do you snore? No Are you waking up during the night with symptoms of low glucose levels (shaky, sweaty, nightmares)?No Are you waking up during the night to urinate frequently? No, participant incontinent at night Diabetes Medications: Glimepiride 2 mg 1 tablet 2 times daily, 1 tablet with AM meal and 1 tablet with evening meal Glimepiride 1 mg 1 tablet in addition to 2 mg dosage if blood sugar >300 Linagliptin 5 mg 1 tablet in the AM Monitoring blood glucose, interpreting and using results Results for orders placed or performed in visit on 07/14/23 HEMOGLOBIN A1C Result Value Ref Range Hemoglobin A1C 5.8 (H) 4.0 - 5.6 % Estimated Average Glucose 120 <126 mg/dL Results for orders placed or performed in visit on 02/24/23 HEMOGLOBIN A1C Result Value Ref Range Hemoglobin A1C 6.1 (H) 4.0 - 5.6 % Estimated Average Glucose 128 (H) <126 mg/dL Results for orders placed or performed in visit on 05/26/22 HEMOGLOBIN A1C Result Value Ref Range Hemoglobin A1C 6.4 (H) 4.0 - 5.6 % Estimated Average Glucose 137 (H) <126 mg/dL At goal/target Self-Monitoring Blood Glucose Source of Information: Participant verbally reviewed from memory Frequency of tests: daily-FBS and 4 PM before dinner 170-190's per staff member Hypoglycemia?: No Diet: Describes typical diet history/24-hour recall Breakfast: 2 eggs, 2 slices of toast, cup of yogurt, coffee with sugar free creamer, water Snacks: none Lunch: sandwich-ham salad or egg salad, 1/2 cup fruit, tator tots, unsweetened iced tea Snacks: none Dinner: spaghetti and meatballs, salad or pizza or pork chops, baked or mashed or fried potatoes, and broccoli or peas or chicken noodle soup, unsweetened iced tea Snacks: none Drinks: 10-8 ounce glasses, 1 coffee in AM, iced tea Restaurant meals: at least once a month Alcohol: None Tobacco Use: No Weight management review: Wt Readings from Last 6 Encounters: 07/30/23 57 kg (125 lb 9.6 oz) 07/14/23 56.9 kg (125 lb 6.4 oz) 06/23/23 54 kg (119 lb) 05/26/23 55.8 kg (123 lb) 05/04/23 54 kg (119 lb) 03/10/23 53.9 kg (118 lb 12 oz) Recent weight changes: relatively stable Physical Activity: Goes to [employer] twice a week, 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 ADA STANDARDS OF CARE/BUNDLE MEASURES Diabetes Bundle / Standards of Care: Needs annual dilated eye exam, COVID vaccine, and kidney function Therapy Management Plan: Hypertension: BP Readings from Last 3 Encounters: 07/14/23 100/56 06/23/23 98/60 05/26/23 103/68 At goal/target Dyslipidemia: Lab Results Component Value Date/Time LDL (CALCULATED)-OUTSIDE LAB 36 06/06/2019 12:00 AM LDL CHOLESTEROL (CALCULATED) - [facility] 35 02/24/2023 12:51 PM LDL CHOLESTEROL (CALCULATED) - [facility] 35 10/20/2019 11:27 AM LDL CHOLESTEROL (DIRECT MEASURE) - [facility] 36 10/20/2019 11:27 AM LDL CHOLESTEROL (DIRECT MEASURE) - [facility] NOT APPLICABLE 10/20/2019 11:27 AM Lab Results Component Value Date/Time TRIGLYCERIDES - [facility] 68 02/24/2023 12:51 PM TRIGLYCERIDES - [facility] 57 10/20/2019 11:27 AM TRIGLYCERIDES-OUTSIDE LAB 71 06/06/2019 12:00 AM CHOL/HDL RATIO-OUTSIDE LAB 2 06/06/2019 12:00 AM CHOLESTEROL - [facility] 109 02/24/2023 12:51 PM CHOLESTEROL - [facility] 118 10/20/2019 11:27 AM CHOLESTEROL-HDL RATIO - [facility] 3.0 08/05/2016 08:10 AM CHOLESTEROL-OUTSIDE LAB 112 06/06/2019 12:00 AM HDL CHOLESTEROL - [facility] 60 02/24/2023 12:51 PM HDL CHOLESTEROL - [facility] 72 10/20/2019 11:27 AM HDL-OUTSIDE LAB 62 (A) 06/06/2019 12:00 AM At goal/target Taking statin Kidney function review: Lab Results Component Value Date/Time ESTIMATED GLOMERULAR FILTRATION RATE - [facility] >90 07/14/2023 04:58 PM ESTIMATED GLOMERULAR FILTRATION RATE - [facility] >60.0 11/08/2019 09:46 AM ESTIMATED GLOMERULAR FILTRATION RATE - [facility] >60.0 08/12/2013 09:51 AM Lab Results Component Value Date/Time ALBUMIN / CREATININE RATIO, URINE - [facility] 10/20/2019 11:27 AM Uninterpretable Albumin/Creatinine Ratio due to very low albumin and creatinine values. No results found for: "PROTEIN/ CREATININE RATIO", "PROTEIN/ CREATININE RATIO, URINE - [facility]" No recent results to assess DSMT Initial Visit Assessment of Content Areas: Choose the answer that represents the participant's competency in each area. All need to be assessed at initial. Areas taught must match intervention. If content area not assessed and/or intervened today, it will be deferred to future session. Diabetes disease process and treatment process: Needs review (2) Incorporating nutrition management into lifestyle: Needs review (2) Incorporating physical activity into lifestyle: Needs review (2) Using medications safely: Needs review (2) Monitoring blood glucose, interpreting and using results: Needs review (2) Prevention, detection, and treatment of acute complications: Needs review (2) Prevention, detection, and treatment of chronic complications: Needs review (2) Developing strategies to address psychosocial issues: Needs review (2) Developing strategies to promote health/change behavior: Needs review (2) DSMT/ Diabetes MNT intervention: Pathophysiology: Defined disease process. Discussed treatment options. Staff member is uncertain of participant's family history. She states participant is being seen by Endocrinology and is having antibody testing to determine if she has type 1 DM. Nutrition: Educated on the effects of macronutrients on diabetes control and diabetes complications. Taught and had participant identify foods that contain carbohydrates. Taught participant how to read food labels. Educated on using ADA plate method. Emphasized importance of eating consistent CHO'sand monitoring portion sizes of high-CHO foods. Staff member reports staff at the facility do meal preparation and monitor portion sizes of foods participant receives; they also use My Plate model when preparing meals for her. States participant was encouraged to consume a high-protein, low-CHO supplement; this is given twice daily. Physical Activity: Educated on the role of physical activity on glucose control. Participant's activity is limited but she does go walking with CPS worker at least weekly. Medication: Educated on participant's current medication dosing, action of, timing of, and side effects. Staff notes participant was previously taking Jardiance and Metformin but states she did not tolerate these medicines so diabetes regimen was changed recently. Monitoring: Staff at facility where participant resides does glucose levels daily in AM and 4 PM before evening meal. No issues with checking glucose levels noted. Chronic Complications: Advised that a hemoglobin A1c test measures your average blood sugar levels over a span of 2-3 months. Educated on chronic complications of diabetes and prevention of retinopathy, nephropathy, neuropathy, and heart disease. Staff member reports participant had a recent eye exam-unknown if dilation was done. Participant Selected Behavioral Objective: Nutrition: To improve blood glucose control I will use ADA plate model for eating evening meal. Aimfor 2-3 servings of carb's per meal (30-45 grams). Recommended Medication Changes: No changes. Education materials given to participant/caregiver and reviewed during today's visit: Understanding CHO's Healthy Meal Planning Diabetes Self-Management Support: Websites: www.diabetes.org Possible Future Topics: Content areas that were not assessed in first visit: All content areas have been assessed. Time Spent With Patient: Time in: 8:05 AM Time out: 9:01 AM Billing: DSMT: 30 Minutes Plan for Return: 11/05/2023 Participant provided with contact information for Diabetes Care and Furnace Repairer. All [facility] providers within the system are able to see [place] [employer] education and outcomes within the participant's electronic medical record. Brenda Rosales RDN, NUTRITION SERVICES [facility] Diabetes Care and Furnace Repairer documented in this encounter Miscellaneous Notes * Pt Handout (on AVS) - Brenda Rosales RDN - 07/30/2023 9:00 AM EDT Images from the original note were not included. [id number] Understanding Carbohydrates A car needs the right type of fuel to run. And you need the right kind of food to function. To keepyour energy level up, your body needs food that has carbohydrates (carbs). But carbs raise blood sugar levels higher and faster than other kinds of food. Your dietitian will work with you to figure out the amount of carbs you need. Carbs come in 3 types: starches, sugars, and fiber. Starches Starches are found in grains, some vegetables, and beans. Grain products include bread, pasta, cereal, and tortillas. Starchy vegetables include potatoes, peas, corn, richardson beans, yams, and squash. Kidney beans, alcantara beans, black beans, garbanzo beans, and lentils also have starches. Sugars Sugars are found naturally in many foods. Or they can be added. Foods that contain natural sugar include fruits and fruit juices, dairy products, honey, and molasses. Added sugars are found in most desserts, processed foods, candy, regular soda, and fruit drinks. These are very helpful to treat lowblood sugar (hypoglycemia). They give you sugar quickly. Try to keep at least 15 to 20 grams of these simple sugars with you at all times. Eat or drink these if you start to have symptoms of low blood sugar. Fiber Fiber comes from plant foods. Your body can't digest most fiber. Instead of raising blood sugar levels like other carbs, fiber stops blood sugar from rising too fast. Fiber is found in fruits, vegetables, whole grains, beans, peas, and many nuts. Carb counting Keep track of the amount of carbs you eat. This can help you keep the right balance of carbs, physical activity, and medicine. The amount of carbs you need will be different from what other people need. How much you need depends on many things. These include your health, the medicines you take, andhow active you are. Your healthcare team will help you figure out the right amount of carbs for you. You may start with 45 to 60 grams of carbs per meal, depending on your case. Carb counting is a system that helps you keep track of the carbohydrates you eat at each meal. Carbs come from many foods. These include grains, starchy vegetables, fruit, milk, beans, and snackfoods. You can either count carbohydrate grams or carbohydrate servings. When you count carbohydrate servings, 1 carbohydrate serving = 15 grams of carbohydrates. Here are some examples of foods that have about 15 grams of carbs (1 serving of carbohydrates): 1/2 cup of canned or frozen fruit A small piece of fresh fruit (4 ounces) 1 slice of bread 1/2 cup of oatmeal 1/3 cup of rice 4 to 6 crackers 1/2 Congolese muffin 1/2 cup of black beans 1/4 of a large baked potato (3 ounces) 2/3 cup of plain fat-free yogurt 1 cup of soup 1/2 cup of casserole 6 chicken nuggets 5-cizs-yaukiz brownie or cake without frosting 2 small cookies 1/2 cup of ice cream or sherbet Carb counting is easier when food labels are available. Look at the label to see how many grams of total carbs per serving the food contains. Then you can figure out how much you should eat. If your food doesn't have a nutrition label, you should be able to get an idea how many carbs there are per serving by using a book or website. Two very important lines to look at on the label are the serving size and the total carbohydrate amount per serving. Here are some tips for using food labels to count your carbs: Check the serving size. The information on the label is based on that serving size. If you eat more than the listed serving size, you may have to double or triple the other information on the label. Check the total grams of carbs. Total carbohydrate from the label includes sugar, starch, and fiber. Be sure to use the total carbohydrate number (minus the fiber) and not sugar alone. Know how many grams of carbs you can have. Be familiar with the matching portion sizes. Compare labels. Compare the labels of different products. Look at serving sizes and total carbs to find the products that work best for you. Don't forget protein and fat. With the focus on carb counting, it might be easy to forget protein and fat in your meals. Don't forget to include sources of protein and healthy fat to balance your meals. Also watch how much salt (sodium) you eat. This is especially true if you have high blood pressure. If you have diabetes, limit the amount of sodium to less than 2,300 mg a day. It?s also important to be consistent with the amount of carbs and time you eat when taking a fixed dose of diabetes medicine. Work with your healthcare provider or dietitian if you need more help. They can help you keep track of your carbs. They can also help you figure out how many grams of carbs you should have. Last Reviewed Date: 04/16/202119992051-4207 [employer]. All rights reserved. This information is not intended as a substitute for professional medical care. Always follow your healthcare professional's instructions. documented in this encounter Plan of Treatment Upcoming Encounters Date Type Department Care Team (Late st Contact Info) Description 08/10/2023 3:00 PM EDT Office Visit Family [facility] [place] [address] [address] Delmy Jacobsen PA-C [address] [place] [address] 09/09/2023 11:20 AM EDT Office Visit [facility] [address] [place] [address] Delmy Jacobsen PA-C [address] [place] [address] 10/19/2023 3:20 PM EDT Telemedicine Endocrinology, [place] [address] [place] [address] [place], Pharmacist Endocrinology [address] [place], [place] [id number] 10/28/2023 2:30 PM EDT Office Visit General Internal Medicine, [facility] [address] [place] [address] Rose Almaguer MD [address] [place] [address] 11/05/2023 9:30 AM EDT Nutrition Services Nutrition, [facility] [address] [place] [address] Brenda Rosales, JAMES [address] [place] [address] 01/25/2024 2:00 PM EDT Telemedicine Endocrinology, [place] [address] [place] [address] Krsitine Lopez CRNP [address] [place], [place] [id number] 02/15/2024 8:40 AM EDT Office Visit [facility] [address] [place] [address] Delmy Jacobsen PA-C [address] [place] [address] [address] 07/19/2024 10:30 AM EST Telemedicine Endocrinology, [place] [address] [place] [address] Carlita Louis PA-C [address] [place] [address] Scheduled Referrals Name Type Priority Associated Diagnoses Orde r Schedule DIABETES MANAGEMENT EDUCATION (ADA) REFERRAL Referral Within 10 days (routine) Type 2 diabetes mellitus with hemoglobin A1c goal of less than 7.0% (HCC) Ordered: 07/22/2023 Health Maintenance Due Date Last Done Comments Cologuard 2007 Fecal Occult Blood Test 2007 Sigmoidoscopy 2007 Diabetic Eye Exam 07/30/2022 07/30/2021, , 06/07/2017, Additional history exists COVID-19 Vaccine ( season) 2023 03/11/2022, 09/18/2021, 04/01/2021, Additional history exists Depression Screening 03/09/2023 03/09/2022, 02/14/2015 (Discussed) *BISPHONATE OR OTHER ACCEPTABLE MEDICATION NEEDED FOR OSTEOPOROSIS (REFER TO SMARTSET #1146) 03/13/2023 Albumin/Creatinine Ratio 08/22/20232 023, 07/15/2021, 10/20/2019, Additional history exists B-12 10/24/2023 10/23/2022, 04/0 11/2022, 03/12/2021, Additional history exists HbA1c 01/12/2024 07/14/2023, 02/14, 05/26/2022, Additional history exists Mammogram 01/22/2024 01/21/2023, 09/0 10/2021, 01/13/2021, Additional history exists Diabetic Foot Exam 03/10/2024 03/10/2023, 0 11/06/2021, 03/11/2020, Additional history exists GFR 07/14/2024 07/14/2023, 09/0 09/2022, 11/30/2022, Additional history exists DXA Scan 04/06/2025 04/06/2023 Pap Smear 07/14/2026 07/14/2023, 05/17, 06/04/2020, Additional history exists Lipid Panel 02/25/2028 02/24/2023, 12/15, 10/20/2019, Additional history exists Cervical Cancer Screening 07/14/2028 HPV/Co-Test 07/14/2028 07/14/2023 DTaP,Tdap,and Td Vaccines (3 - Td or [...] D LEVEL ONCE IN A LIFETIME-USE SMARTSET# 36514 Completed 10/23/2022, 07/23/2022 Influenza Vaccine (FLU shot) [...] hemoglobin A1c goal of less than 7.0% (HCC)- Primary Mild intellectual disability Mild intellectual disabilities PARANOID SCHIZO-CHRONIC Paranoid schizophrenia, chronic condition Seizure disorder, simple partial, 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) Localization-related (focal) (partial) epilepsy and epileptic syndromes with simple partial seizures, without mention of intractable epilepsy documented in this encounter Care Teams Linen Manager Relationship Specialty Start Date End Date Vitor Esqueda III, MD [address] [place] [address] [place] [address] PCP - General Family Medicine 07/20/18 documented as of this encounter
--- OUTSIDE RECORDS SUMMARY | 2023-08-15 08:29 | External Medical Summary | Summary of Care ---
Author Name Unknown Organization [facility] Address [address] [place] [address] Phone [phone] Care Team Providers Care Collection Supervisor Name Role Phone Dheeraj NORWOOD MD, Vitor Baird Primary Care Provider [phone] Reason for Visit * Reason Onset Date Comments Advice 07/22/2023 Encounter Details Date Type Department Care Team (Late st Contact Info) Description 07/22/2023 Telephone Endocrinology, [place] [address] [place], [place] [id number] Services, [facility] [address] [place] [address] Advice Allergies Active Allergy Reactions Criticality Noted [...] hemoglobin A1c goal of less than 7.0% ([facility]) TEST BLOOD SUGAR before breakfast [...] term ACTIVE CASE MANAGEMENT Keke Solis RN [phone] 01/25/2008 03/03/2010 Type 2 diabetes mellitus wit [...] 0,03/08/2019,03/04,02/14/2015,01/31/2013,01/25/2012 ,03/26/2010,09/21/2008 Pneumococcal Conjugate Vacci ne, 20-valent ([id number]) 03/09/2022 Pneumococcal Polysaccharide PPV23 (Pneumovax) 09/16/2005 Seasonal [...] could be resent to a different email, [email or web address]. Thank you documented in this encounter Plan of Treatment Upcoming Encounters Date Type Department Care Team (Late st Contact Info) Description 07/22/2023 1:30 PM EST Telemedicine General Internal Medicine, [facility] [address] [place] [address] Rose Almaguer MD [address] [place] [address] 08/10/2023 3:00 PM EDT Office Visit [facility] [address] [place] [address] Delmy Jacobsen PA-C [address] [place] [address] 09/09/2023 11:20 AM EDT Office Visit [facility] [address] [place] [address] [address] Delmy Jacobsen PA-C [address] [place] [address] 10/19/2023 3:20 PM EDT Telemedicine Endocrinology, [place] [address] [place] [address] Michie, Pharmacist Endocrinology [address] [place] [address] 01/25/2024 2:15 PM EDT Telemedicine Endocrinology, [place] [address] [place] [address] Kristine Lopez CRNP [address] [place] [address] 02/15/2024 8:40 AM EDT Office Visit [facility] [address] [place] [address] Delmy Jacobsen PA-C [address] [place] [address] [address] 07/19/2024 10:30 AM EST Telemedicine Endocrinology, [place] [address] [place] [address] Carlita Louis PA-C [address] [facility] [place] [address] Health Maintenance Due Date Last Done Comments [...] D LEVEL ONCE IN A LIFETIME-USE SMARTSET# 91012 Completed 10/23/2022, 07/23/2022 Influenza Vaccine (FLU shot) Completed , 02/04/2022, 01/21/2021, Additional history exists GARDASIL-HPV IMMUNIZATION SERIES Aged Out No longer eligible based on patient's age to complete this topic MENINGOCOCCAL (MENACTRA/MENVEO) Aged Out No longer eligible based on patient's age to complete this topic documented as of this encounter Medical Devices Not on filedocumented as of this encounter Care Teams Collection Supervisor Relationship Specialty Start Date End Date Vitor Esqueda III, MD [address] [place] [address] PCP - General Family Medicine 07/20/18 documented as of this encounter
--- OUTSIDE RECORDS SUMMARY | 2023-08-15 08:29 | External Medical Summary | Summary of Care ---
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 [facility] Is the patient over age 18 and transferring full care? No Is patient over age 16 and being transferred for transitional services? Yes Comments If the patient is between 16-18 years old a referral for transitional services with you remaining the primary care provider/sub specialist is available. Please note this is not a full transfer of care and the clinic will only act as a bank consultant. All acute needs and primary care needs will continue to be handled by your team. Questions can be directed to [facility] phone number of [phone]. * Evaluate & Treat - Unlimited Visits (Within 30 days (routine)) - Authorized Specialty Diagnoses / Procedures Referred By Ge t Referred To Contact Endocrinology/Metabolism / Endocrinology Diagnoses Type 2 diabetes mellitus with hemoglobin A1c goal of less than 7.0% (HCC) Delmy Jacobsen PA-C [address] [facility] [address] [place] [address] Referral ID Status Reason Start Date Expiration Date Visits Requested Visits Authorized [id number] Authorized Specialty Services Required 07/14/[phone] Question Answer Referral Priority Within 30 days (routine) Where should this appointment be scheduled? [facility] For what condition is the patient being referred? Diabetes Mellitus For which diabetes condition are you referring? Type 2 Reason for Visit * Reason Comments PAP Encounter Details Date Type Department Care Team (Latest Contact Info) Description 07/14/2023 3:00 PM EST Office Visit Family Practice [facility] [address] [place] [address] Delmy Jacobsen PA-C [address] [facility] [place] [address] Encounter for gynecological examination without abnormal finding*; Screening for cervical cancer; Type 2 diabetes mellitus with hemoglobin A1c goal of less than 7.0% ([facility]); PARANOID SCHIZO-CHRONIC; Seizure disorder, simple partial, 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 epilepsy ([facility]); Mild intellectual disability; Choking due to food (regurgitated), initial encounter; Age-related osteoporosis without current pathological fracture; Abnormal blood chemistry; Eczema, unspecified type Allergies Active Allergy Reactions Criticality Noted Date Comments Aspirin 08/05/2016 Depakote Er Unknown 09/12/2007 Salicylates Unknown 10/30/2003 aspirin documented as of this encounter (statuses as of 07/14/2023) Medications Medication Sig Dispensed Refills Start Date End Date Status LEVETIRACETAM 250 MG PO TABS 1 tab twwice daily 0 Active Blood Glucose Monitoring Suppl (Progression LabsTOUCH ULTRA SYSTEM) W/DEVICE KITIndications:Type 2 diabetes mellitus [...] hemoglobin A1c goal of less than 7.0% ([facility]) TEST BLOOD SUGAR before breakfast [...] hemoglobin A1c goal of less than 7.0% ([facility]) USE TO TEST BLOOD SUGAR twice DAILY [...] hemoglobin A1c goal of less than 7.0% ([facility]) TAKE 1 TABLET BY MOUTH ONCE DAILY WITH FIRST MAIN MEAL OF THE DAY (DX: DIABETES) 31 Tablet 11 3 Active Empagliflozin 25 MG Oral Tablet (Jardiance) Take 1 Tablet by mouth in the morning. 90 Tablet 2 4 Active B Complex-C Oral Tablet (Therapeutic B Complex w/C) Take 1 Tablet by mouth in the morning. In the morning.. 31 Tablet 11 4 Active documented as of this encounter (statuses as of 07/14/2023) Active Problems Problem Noted Date Diagnosed Date [...] as of this encounter (statuses as of 07/14/2023) Resolved Problems Problem Noted Date Diagnosed Date Resolved Date Constipation 09/10/2012 03/07/2018 Overview: ICD-10 update of inactive term ACTIVE CASE MANAGEMENT Keke Solis RN [phone] 01/25/2008 03/03/2010 Type 2 diabetes mellitus wit h hemoglobin A1c goal of less than 7.0% 10/30/2003 03/14/2009 Overview: Per Diabetes Taxonomy. ICD-10 update of inactive term Intellectual disability 10/30/200302/15 Overview: ICD-10 update of inactive term DM type 2, not at goal 10/30/200309/11 Psychotic disorder 10/30/2003 0 documented as of this encounter (statuses as of 07/14/2023) Immunizations Name Administration Dates Next Due COVID-19 mRNA, LNP-s, No Pre serve, 2-Dose Series (Moderna) 07/10/2020,06/12/2020 COVID-19, mRNA, LNP-s, PF, B ooster, 100mcg/0.5mg (Moderna) 09/18/2021,04/01/2021 Covid-19, Mrna, Lnp-s, Pf, B ivalent, 50 Mcg, IM, 12 yrs and above (Moderna) 03/11/2022 Hepatitis B, 20+ yrs 09/10/2014,03/08/2014,02/06 PPD 03/09/2022, 0,03/08/2019,03/04,02/14/2015,01/31/2013,01/25/2012 ,03/26/2010,09/21/2008 Pneumococcal Conjugate Vacci ne, 20-valent ([id number]) 03/09/2022 Pneumococcal Polysaccharide PPV23 (Pneumovax) 09/16/2005 Seasonal [...] Sign Reading Time Taken Comments Blood Pressure 100/56 07/14/2023 3:26 PM EST Pulse 88 07/14/2023 3:26 PM EST Temperature 36.4 C (97.6 F) 07/14/2023 3:26 PM ES T Respiratory Rate 18 07/14/2023 3:26 PM EST Oxygen Saturation 98% 07/14/2023 3:26 PM EST Inhaled Oxygen Concentration - - Weight 56.9 kg (125 lb 6.4 oz) 07/14/2023 3:26 P M EST Height 167.6 cm (5' 6") 07/14/2023 3:26 PM EST p er chart Body Mass Index 20.24 07/14/2023 3:26 PM EST documented in this encounter Progress Notes * Delmy Jacobsen PA-C - 07/14/2023 4:18 PM EST Brittany Oneill is a 63 year old female who presents for an annual check-up. Current concerns: Concerns with staff about decline Glucose not in control Staff thinks she may benefit from seeing endocrinology and comprehensive manager care management for consults. Rash on face. Skin is dry. Staff unsure what she is washing her face with. Wondering if she has fluid and sodium restrictions. Can't find where order came from. Past Medical History: Diagnosis Date Age-related osteoporosis [...] performed by Ryan Sauceda MD at [facility] COLONOSCOPY, DIAGNOSTIC (RECTUM) 02/03/2023 COLONOSCOPY FLEXIBLE PROXIMAL DIAGNOSTIC performed by Lilo Smith DO at [facility] DIABETIC EYE EXAM 06/21/2006 Glacoma suspect, large optic cups DIABETIC EYE EXAM 07/11/2009 no diabetic retinopathy EGD, FLEXIBLE, DIAGNOSTIC 08/19/2021 normal / ESOPHAGOGASTRODUODENOSCOPY (EGD), FLEXIBLE, TRANSORAL, DIAGNOSTIC performed by Lilo Smith DO at [facility] EGD, FLEXIBLE, DIAGNOSTIC 02/03/2023 ESOPHAGOGASTRODUODENOSCOPY (EGD), FLEXIBLE, TRANSORAL, DIAGNOSTIC performed by Lilo Smith DO at [facility] REFRIGERATION SPECIALIST PAP SCREEN 10/15/2004 habitat management coordinator exam at family planning INFORMATION 05/17/2005 Glaucoma suspect ou/no diabetic retinopathy, ptosis, bilateral MAMMOGRAM - BILATERAL 09/28/2006 benign findings, yearly mammograms appropriate, birad code 2 MAMMOGRAM SCREENING-BILATERAL 02/03/2005 normal Current Outpatient Medications Medication Sig Dispense Refill LEVETIRACETAM 250 MG PO TABS 1 tab twwice daily Blood Glucose Monitoring Suppl (BuzzDoes ULTRA SYSTEM) W/DEVICE KIT Use as directed [...] the morning and 2 Capsules before bedtime. Boost 100 Calorie Smart Oral Liquid DAILY [...] OF THEDAY (DX: DIABETES) 31 Tablet 11 Empagliflozin 25 MG Oral Tablet (Jardiance) Take 1 Tablet by mouth in the morning. 90 Tablet 2 B Complex-C Oral Tablet (Therapeutic B Complex w/C) Take 1 Tablet by mouth in the morning. In the morning.. 31 Tablet 11 No current facility-administered medications for this visit. Review of patient's allergies indicates: Allergen Reactions Aspirin Depakote [Depakote Er] Unknown Salicylates Unknown aspirin Social History Socioeconomic History Marital status: Single Spouse name: Not on file Number of children: Not on file Years of education: Not on file Highest education level: Not on file Occupational History Not on file Tobacco Use Smoking status: Never Smokeless tobacco: Never Vaping Use Vaping Use: Never used Substance and Sexual Activity Alcohol use: No Drug use: No Sexual activity: Not Currently Other Topics Concern Service No Blood Transfusions No Caffeine Concern No Occupational Exposure No Hobby Hazards No Sleep Concern No Stress Concern No Weight Concern No Special Diet Yes Comment: diabetic diet Back Care Not Asked Exercise No Bike Helmet Not Asked Seat Belt Yes Self-Exams Not Asked Social History Narrative Not on file Social Determinants of Health Financial Resource Strain: Not on file Food Insecurity: No Food Insecurity (05/26/2019) Hunger Vital Sign Worried About Running Out of Food in the Last Year: Never true Ran Out of Food in the Last Year: Never true Transportation Needs: Not on file Physical Activity: Not on file Stress: Not on file Social Connections: Not on file Intimate Partner Violence: Not on file Housing Stability: Not on file Family History Problem Relation Age of Onset Diabetes Mother Breast Cancer No significant family history Review Of Systems Skin: scaling Eyes: negative Ears/Nose/Throat: negative Respiratory: negative Cardiovascular: negative Gastrointestinal: negative Genitourinary: negative Musculoskeletal: pt denies significant joint pain or stiffness Neurologic: negative Psychiatric: negative Hematologic/Lymphatic/Immunologic: negative Endocrine: diabetes Gynecologic:Patient's last menstrual period was 09/30/2011. Patient is postmenopausal., PHYSICAL EXAMINATION: BP 100/56 | Pulse 88 | Temp 36.4 C (97.6 F) (Tympanic) | Resp 18 | Ht 1.676 m (5' 6") Comment: per chart | Wt 56.9 kg (125 lb 6.4 oz) | LMP 09/30/2011 | SpO2 98% | BMI 20.24 kg/m | BSA 1.63 m General appearance - well nourished, comfortable. Skin - no rashes or lesions suspicious for malignancy. Dry skin conditions. Eczema noted on face. Head - without deformity, mass, or tenderness. Eyes - conjuctiva clear, EOMI, nondilated limited fundoscopic exam without obvious pathology. Ears - canals clear, TMs normal. Nose/Sinuses - normal mucosa without mass. Oropharynx -no oral lesions. Neck - normal ROM, supple, without adenopathy, thyromegaly, or bruit. Back - without deformity or tenderness. Lungs - symmetric and full breath sounds without rales, rhonchi, or wheezes. Heart - normal precordial impulse, PMI nondisplaced, normal S1,S2, without murmurs, rubs, or gallops. carotid upstrokes 2/4 without bruit. Breasts - symmetric, no masses or tenderness, axillae negative. Abdomen - nondistended, no organomegaly, nontender to palpation,bowel sounds active. Extremities - no cyanosis, clubbing, or edema. Musculoskeletal - joints without restriction in range of motion or deformity. Peripheral pulses - symmetric and intact. Neuro - normal gait and station, without tremor, symmetric motor strength, DTRs symmetric. Pelvic-external genitalia without lesion. speculum exam revealed Vagina/cervix clear, mucosa pink.. bimanual exam unremarkable for masses or tenderness. ASSESSMENT/PLAN: (Z01.419) Encounter for gynecological examination without abnormal finding (primary encounter diagnosis) Plan: (Z12.4) Screening for cervical cancer Plan: REFRIGERATION SPECIALIST PAP SCREEN, REFRIGERATION SPECIALIST PAP SCREEN (E11.9) Type 2 diabetes mellitus with hemoglobin A1c goal of less than 7.0% (HCC) Plan: ALBUMIN / CREATININE RATIO, URINE, HEMOGLOBIN A1C, ENDOCRINOLOGY REFERRAL OP Encounter for gynecological examination without abnormal finding (Primary) Screening for cervical cancer - REFRIGERATION SPECIALIST PAP SCREEN; Future; Expected date: 07/14/2023 - REFRIGERATION SPECIALIST PAP SCREEN Type 2 diabetes mellitus with hemoglobin A1c goal of less than 7.0% ([facility]) - ALBUMIN / CREATININE RATIO, URINE; Future; Expected date: 07/14/2023 - HEMOGLOBIN A1C; Future; Expected date: 07/14/2023 - ENDOCRINOLOGY REFERRAL OP - [facility] REFERRAL OP PARANOID SCHIZO-CHRONIC - [facility] REFERRAL OP Seizure disorder, simple partial, 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 | Check-out note: Schedule with endocrinology/comprehensisve care Continue with current meds Diet and exercise discussed. documented in this encounter Nursing Notes * Roya Haney LPN - 07/14/2023 3:14 PM EST Brittany Oneill presents for PAP exam. Medications & HM reviewed. documented in this encounter Plan of Treatment Upcoming Encounters Date Type Department Care Team (Late st Contact Info) Description 08/10/2023 3:00 PM EDT Office Visit [facility] [address] [place] [address] Delmy Jacobsen PA-C [address] [place] [address] [address] 09/09/2023 11:20 AM EDT Office Visit [facility] [place] [address] [place] [address] Delmy Jacobsen, CHRIS [address] [place] [address] 02/15/2024 8:40 AM EDT Office Visit [facility] [address] [place] [address] Delmy Jacobsen PA-C [address] [place] [address] Pending Results Name Type Priority Associated Diagnoses Date /Time REFRIGERATION SPECIALIST PAP SCREEN Pathology Routine Screening for cervical cancer 07/14/2023 3:17 PM EST HEMOGLOBIN A1C Lab Routine Type 2 diabetes mellitus with hemoglobin A1c goal of less than 7.0% (HCC) 07/14/2023 4:58 PM EST LACTATE Lab Routine Abnormal blood chemistry 07/14/2023 4:58 PM EST BASIC METABOLIC PANEL Lab Routine Abnormal blood chemistry 07/14/2023 4:58 PM EST Scheduled Orders Name Type Priority Associated Diagnoses Orde r Schedule ALBUMIN / CREATININE RATIO, URINE Lab Routine Type 2 diabetes mellitus with hemoglobin A1c goal of less than 7.0% (HCC) Expected: 07/14/2023, Expires: 07/14/2024 REFRIGERATION SPECIALIST PAP SCREEN Pathology Routine Screening for cervical cancer Expected: 07/14/2023, Expires: 08/11/2024 HEMOGLOBIN A1C Lab Routine Type 2 diabetes mellitus with hemoglobin A1c goal of less than 7.0% (HCC) Expected: 07/14/2023 (Approximate), Expires: 07/13/2024 LACTATE Lab Routine Abnormal blood chemistry Expected: 07/14/2023, Expires: 07/14/2024 BASIC METABOLIC PANEL Lab Routine Abnormal blood chemistry Expected: 07/14/2023 (Approximate), Expires: 07/13/2024 Scheduled Referrals Name Type Priority Associated Diagnoses Orde r Schedule ENDOCRINOLOGY REFERRAL OP Referral Within 30 days (routine) Type 2 diabetes mellitus with hemoglobin A1c goal of less than 7.0% (HCC) Ordered: 07/14/2023 [facility] REFERRAL OP Referral Within 30 days (routine) Type 2 diabetes mellitus with hemoglobin A1c goal of less than 7.0% (HCC) PARANOID SCHIZO-CHRONIC Seizure disorder, simple partial, 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) Mild intellectual disability Choking due to food (regurgitated), initial encounter Age-related osteoporosis without current pathological fracture Ordered: 07/14/2023 Health Maintenance Due Date Last Done Comments [...] Scan 04/06/2025 04/06/2023 Lipid Panel 02/25/2028 02/24/2023, 08, 10/20/2019, Additional history exists DTaP,Tdap,and Td Vaccines [...] D LEVEL ONCE IN A LIFETIME-USE SMARTSET# [id number] Completed 10/23/2022, 07/23/2022 Influenza Vaccine (FLU shot) Completed , 02/04/2022, 01/21/2021, Additional history exists GARDASIL-HPV IMMUNIZATION SERIES Aged Out No longer eligible based on patient's age to complete this topic MENINGOCOCCAL (MENACTRA/MENVEO) Aged Out No longer eligible based on patient's age to complete this topic documented as of this encounter Medical Devices Not on filedocumented as of this encounter Visit Diagnoses Diagnosis Encounter for gynecological examination without abnormal finding- Primary Routine gynecological examination Screening for cervical cancer Screening for malignant neoplasm of the cervix Type 2 diabetes mellitus with hemoglobin A1c goal of less than 7.0% (HCC) PARANOID SCHIZO-CHRONIC Paranoid schizophrenia, chronic condition Seizure disorder, simple partial, 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) 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
--- OUTSIDE RECORDS SUMMARY | 2023-08-15 08:29 | External Medical Summary | Summary of Care ---
Author Name Unknown Organization [facility] Address [address] [place] [address] Phone [phone] Care Team Providers Care Telecom Network Manager Name Role Phone Dheeraj NORWOOD MD, Vitor Baird Primary Care Provider [phone] Reason for Referral * Evaluate & Treat - Unlimited Visits (Within 10 days (routine)) - Authorized Specialty Diagnoses / Procedures Referred By Contac t Referred To Contact Clinical Pharmacologist / Nutrition Services Diagnoses Type 2 diabetes mellitus with hemoglobin A1c goal of less than 7.0% ([facility]) Rose Almaguer MD [address] [place] [address] Referral ID Status Reason Start Date Expiration Date Visits Requested Visits Authorized [id number] Authorized Specialty Services Required 07/22/[phone] Question Answer Referral Priority Within 10 days (routine) Where should this appointment be scheduled? [facility] Reason for Referral Type 2 Diabetes Is this a newly diagnosed condition? No Comments This referral is for Diabetes Self-Management Training (DSMT) by a recognized [place] [employer] (ADA) home demonstration agent: Nurse (RN), Registered Dietitian Dairy Nutritionist (RDN), and/or Diabetes Medical Nutrition Therapy (MNT) Management (dietitian only). Diabetes educators are responsible for assessing the participant's diabetes education needs, and providing diabetes self-management training in accordance with the standards set by the ADA for DSMT. Any adjustment in diabetes therapy will be made within the guidelines of standards of practice and ising approved policies and procedures. I understand that the home demonstration agent will keep me informed. Areas of Education: Pathophysiology Nutrition Physical Activity Medications Monitoring Acute Complications Chronic Complications Psychosocial Management Promote Health/Behavior Change Participant will be offered 1:1 education training if there is a lack of classes available within 2 months. Providers can also order 1:1 training if indicated for participant for the following reasons: 1:1 Training for Insulin Initiation Participant Inappropriate for Class Setting By my electronic signature, I understand that my patient will be offered the comprehensive ADA content area above unless deemed not appropriate of I specify otherwise here: Reason for Visit * Reason Comments NEW PATIENT * Evaluate & Treat - Unlimited Visits [...] encounter Age-related osteoporosis without current pathological fracture Ann-Marie Delmy Analilia, PA-C [address] [place] [address] Rose Almaguer MD [address] [place] [address] Referral ID Status Reason Start Date Expiration Date Visits Requested Visits Authorized [id number] Authorized Specialty Services Required 07/14/[phone] Encounter Details Date Type Department Care Team (Late st Contact Info) Description 07/22/2023 1:30 PM EST Telemedicine General Internal Medicine, [facility] [address] [place] [address] Rose Almaguer MD [address] [place] [address] Type 2 diabetes mellitus with hemoglobin A1c goal of less than 7.0% ([facility])* Allergies Active Allergy Reactions Criticality Noted Date Comments Aspirin 08/05/2016 Depakote Er Unknown 09/12/2007 Salicylates Unknown 10/30/2003 aspirin documented as of this encounter (statuses as of 07/26/2023) Medications Medication Sig Dispensed Refills Start Date End Date Status LEVETIRACETAM 250 MG PO TABS 1 tab twwice daily 0 Active Blood Glucose Monitoring Suppl (Prot-On ULTRA SYSTEM) W/DEVICE KITIndications:Type 2 diabetes mellitus [...] hemoglobin A1c goal of less than 7.0% ([facility]) Take 1 Tablet by mouth in the morning. 30 Tablet 11 4 Active documented as of this encounter (statuses as of 07/26/2023) Active Problems Problem Noted Date Diagnosed Date [...] as of this encounter (statuses as of 07/26/2023) Resolved Problems Problem Noted Date Diagnosed Date Resolved Date Constipation 09/10/2012 03/07/2018 Overview: ICD-10 update of inactive term ACTIVE CASE MANAGEMENT Keke Solis RN [phone] 01/25/2008 03/03/2010 Type 2 diabetes mellitus wit h hemoglobin A1c goal of less than 7.0% 10/30/2003 03/14/2009 Overview: Per Diabetes Taxonomy. ICD-10 update of inactive term Intellectual disability 10/30/200302/15 Overview: ICD-10 update of inactive term DM type 2, not at goal 10/30/200309/11 Psychotic disorder 10/30/2003 0 documented as of this encounter (statuses as of 07/26/2023) Immunizations Name Administration Dates Next Due COVID-19 mRNA, LNP-s, No Pre serve, 2-Dose Series (Moderna) 07/10/2020,06/12/2020 COVID-19, mRNA, LNP-s, PF, B ooster, 100mcg/0.5mg (Moderna) 09/18/2021,04/01/2021 Covid-19, Mrna, Lnp-s, Pf, B ivalent, 50 Mcg, IM, 12 yrs and above (Moderna) 03/11/2022 Hepatitis B, 20+ yrs 09/10/2014,03/08/2014,02/06 PPD 03/09/2022, 0,03/08/2019,03/04,02/14/2015,01/31/2013,01/25/2012 ,03/26/2010,09/21/2008 Pneumococcal Conjugate Vacci ne, 20-valent ([id number]) 03/09/2022 Pneumococcal Polysaccharide PPV23 (Pneumovax) 09/16/2005 Seasonal [...] on file documented as of this encounter Progress Notes * Rose Almaguer MD - 07/22/2023 1:50 PM EST Patient location: HOME. I was in a hospital or clinic location. After connecting through [facility],patient was verified with two unique identifiers. 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 Methods to assure confidentiality were taken. Patient acknowledged consent and understanding of pr ivacy and security of the Telemedicine visit. The patient agreed to participate. [facility] COMPREHENSIVE CARE NOTE [facility] General Internal Medicine, [place] [address] HPI: Brittany Oneill is a 63 year old female with complex medical history who presents with NEW PATIENT Concerns: - Living in a house. - Brittany, went to [facility] in [place]. Has a lot of medication issues. Concern medication causing issues. So went to dice dealer. And changed medication. But also multiple hospitalizations for issues such as lactic acidosis. - Metformin and Jardiance causing lactic acidosis. - Family medicine doctor felt like she wasn't getting enough info from other doctors. - Baseline has changed. Wasn't using a walker and now using a walker. Was falling a lot. Dizzy. Blood sugar is worse since changing medication. - Glimepiride 2mg BID 2 days - Tradjenta 5mg daily 2 days - Preprandial: 132, 201, 132, 275, 171 - 2 weeks ago 90-130, 209, 230 - Diet hasn't changed, doesn't eat a lot of sugar, Glucerna (lost weight), egg and yogurt and toastwith jelly, pasta, bread, meat and vegetables. - [place] resides - Psychiatrist: OSH with [facility] clozapine 200mg 2 tabs night, managing. Dr. Portillo. - Neurologist: OSH annual Wang Soto makes most of decisions PMH: Past Medical History: Diagnosis Date Age-related osteoporosis [...] performed by Ryan Sauceda MD at ENDOSCOPY [facility] COLONOSCOPY, DIAGNOSTIC (RECTUM) 02/03/2023 COLONOSCOPY FLEXIBLE PROXIMAL DIAGNOSTIC performed by Lilo Smith DO at ENDOSCOPY [facility] DIABETIC EYE EXAM 06/21/2006 Glacoma suspect, large optic cups DIABETIC EYE EXAM 07/11/2009 no diabetic retinopathy EGD, FLEXIBLE, DIAGNOSTIC 08/19/2021 normal / ESOPHAGOGASTRODUODENOSCOPY (EGD), FLEXIBLE, TRANSORAL, DIAGNOSTIC performed by Lilo Smith DO at ENDOSCOPY [facility] EGD, FLEXIBLE, DIAGNOSTIC 02/03/2023 ESOPHAGOGASTRODUODENOSCOPY (EGD), FLEXIBLE, TRANSORAL, DIAGNOSTIC performed by Lilo Smith DO at ENDOSCOPY [facility] CIGAR ROLLER PAP SCREEN 10/15/2004 quartz cutter exam at family planning INFORMATION 05/17/2005 Glaucoma suspect ou/no diabetic retinopathy, ptosis, bilateral MAMMOGRAM - BILATERAL 09/28/2006 benign findings, yearly mammograms appropriate, birad code 2 MAMMOGRAM SCREENING-BILATERAL 02/03/2005 normal Active scheduled Meds: Current Outpatient Medications Medication Sig Dispense Refill LEVETIRACETAM 250 MG PO TABS 1 tab twwice daily Blood Glucose Monitoring Suppl (Prot-On ULTRA SYSTEM) W/DEVICE KIT Use as directed [...] by mouth at bedtime. 30 Tablet 11 Ammonium Lactate 12 % External Cream (Lac-Hydrin) [...] twice DAILY FOR DM 200 Each 1 Atorvastatin Calcium 40 MG Oral Tablet (Lipitor) TAKE 1 TABLET BY MOUTH AT BEDTIME (DX: FOR CHOLESTEROL) 31 Tablet 11 Docusate Sodium 100 MG Oral Capsule (Colace) TAKE 1 CAPSULE BY MOUTH TWICE DAILY (DX: CONSTIPATION)62 Capsule 11 B Complex-C Oral Tablet (Therapeutic B Complex w/C) Take 1 Tablet by mouth in the morning. In the morning.. 31 Tablet 11 Glimepiride 2 MG Oral Tablet (Amaryl) Take 1 Tablet by mouth 2 times a day with morning and eveningmeals. TAKE 1 TABLET BY MOUTH ONCE DAILY WITH FIRST MAIN MEAL OF THE DAY (DX: DIABETES) 60 Tablet 11 Glimepiride 1 MG Oral Tablet (Amaryl) Take one tablet daily in addition to Glimepiride 2mg if bloodsugar is greater than 300. 30 Tablet 5 linaGLIPtin 5 MG Oral Tablet (Tradjenta) Take 1 Tablet by mouth in the morning. 30 Tablet 11 No current facility-administered medications for this visit. Allergies: Review of patient's allergies indicates: Allergen Reactions Aspirin Depakote [Depakote Er] Unknown Salicylates Unknown aspirin FHx: Family History Problem Relation Age of Onset Diabetes Mother Breast Cancer No significant family history Social Hx: Social History Socioeconomic History Marital status: Single Tobacco Use Smoking status: Never Smokeless tobacco: Never Vaping Use Vaping Use: Never used Substance and Sexual Activity Alcohol use: No Drug use: No Sexual activity: Not Currently Other Topics Concern Service No Blood Transfusions No Caffeine Concern No Occupational Exposure No Hobby Hazards No Sleep Concern No Stress Concern No Weight Concern No Special Diet Yes Comment: diabetic diet Exercise No Seat Belt Yes Social Determinants of Health Food Insecurity: No Food Insecurity (05/26/2019) Hunger Vital Sign Worried About Running Out of Food in the Last Year: Never true Ran Out of Food in the Last Year: Never true ROS: As per the HPI, all other systems negative. LMP 09/30/2011 There is no height or weight on file to calculate BMI. General: Well developed, well nourished, in no acute distress. Head: Normocephalic and atraumatic. Eyes: Conjunctivae and sclerae clear Lungs: Breathing comfortably Neurologic: Alert Psych: Alert, flat affect, answered some questions, Assessment: Brittany Oneill is a 63 year old female who presents for new visit. Plan: Type 2 diabetes mellitus with hemoglobin A1c goal of less than 7.0% ([facility]) (Primary) - DIABETES MANAGEMENT EDUCATION (ADA) REFERRAL - discuss and train on diabetic diet Had a long conversation regarding concern about fragmented healthcare in at least 3 different health systems. We do not have records through some of these systems through Care Everywhere and therefore, it is hard to care coordinate with complex issues. I recommended consolidating care into one healthcare system to help reduce risk for polypharmacy and increase care coodination. She will discuss with family. I spent a total of Greater than 55 mins (exact time 61 mins) on the date of service in preparation,delivery, and documentation of the care provided to Brittany Oneill excluding any time spent in the performance of separately billed services. Rose Almaguer MD [facility] General Internal Medicine, [place] [address] [facility] [address] documented in this encounter Plan of Treatment Upcoming Encounters Date Type Department Care Team (Late st Contact Info) Description 08/10/2023 3:00 PM EDT Office Visit [facility] [address] [facility] [place] [address] Delmy Jacobsen PA-C [address] [facility] [place] [address] 09/09/2023 11:20 AM EDT Office Visit [facility] [address] [facility] [place] [address] Delmy Jacobsen PA-C [address] [facility] [place] [address] 10/19/2023 3:20 PM EDT Telemedicine Endocrinology, [place] [address] [place] [address] [place], Pharmacist Endocrinology [facility] [place] [address] 10/28/2023 2:30 PM EDT Office Visit General Internal Medicine, [facility] [address] [place] [address] Rose Almaguer MD [address] [place] [address] 01/25/2024 2:15 PM EDT Telemedicine Endocrinology, [place] [address] [place] [address] Kristine Lopez CRNP [address] [place] [address] 02/15/2024 8:40 AM EDT Office Visit [address] [place], [place] [address] Delmy Jacobsen PA-C [address] [place] [address] 07/19/2024 10:30 AM EST Telemedicine Endocrinology, [place] [address] [place] [address] Carlita Louis PA-C [address] [place] [address] Scheduled Referrals Name Type Priority Associated Diagnoses [...] 03/11/2020, Additional history exists GFR 07/14/2024 07/14/2023, 0909/2022, 11/30/2022, Additional history exists DXA Scan 04/06/2025 [...] D LEVEL ONCE IN A LIFETIME-USE SMARTSET# [id number] Completed 10/23/2022, 07/23/2022 Influenza Vaccine (FLU shot) [...] goal of less than 7.0% (HCC)- Primary documented in this encounter Care Teams Telecom Network Manager Relationship Specialty Start Date End Date Vitor Esqueda III, MD [address] [place] [address] PCP - General Family Medicine 07/20/18 documented as of this encounter
--- OUTSIDE RECORDS SUMMARY | 2023-08-15 08:29 | External Medical Summary | Summary of Care ---
Author Name Unknown Organization [facility] Address [address] [place] [address] Phone [phone] Care Team Providers Care Inspector Plating Name Role Phone Dheeraj NORWOOD MD, Vitor Baird Primary Care Provider [phone] Encounter Details Date Type Department Care Team (Late st Contact Info) Description 07/15/2023 Orders Only PATIENT PORTAL DO NOT DELETE THIS DEPT USED BY [place] [id number] Allergies Active Allergy Reactions Criticality Noted Date Comments Aspirin 08/05/2016 Depakote Er Unknown 09/12/2007 Salicylates Unknown 10/30/2003 aspirin documented as of this encounter (statuses as of 07/15/2023) Medications Medication Sig Dispensed Refills Start Date End Date Status LEVETIRACETAM 250 MG PO TABS 1 tab twwice daily 0 Active Blood Glucose Monitoring Suppl (SharedReviewsUCH ULTRA SYSTEM) W/DEVICE KITIndications:Type 2 diabetes mellitus [...] as of this encounter (statuses as of 07/15/2023) Active Problems Problem Noted Date Diagnosed Date [...] as of this encounter (statuses as of 07/15/2023) Resolved Problems Problem Noted Date Diagnosed Date Resolved Date Constipation 09/10/2012 03/07/2018 Overview: ICD-10 update of inactive term ACTIVE CASE MANAGEMENT Keke Solis RN [phone] 01/25/2008 03/03/2010 Type 2 diabetes mellitus wit h hemoglobin A1c goal of less than 7.0% 10/30/2003 03/14/2009 Overview: Per Diabetes Taxonomy. ICD-10 update of inactive term Intellectual disability 10/30/200302/15 Overview: ICD-10 update of inactive term DM type 2, not at goal 10/30/200309/11 Psychotic disorder 10/30/2003 0 documented as of this encounter (statuses as of 07/15/2023) Immunizations Name Administration Dates Next Due COVID-19 mRNA, LNP-s, No Pre serve, 2-Dose Series (Moderna) 07/10/2020,06/12/2020 COVID-19, mRNA, LNP-s, PF, B ooster, 100mcg/0.5mg (Moderna) 09/18/2021,04/01/2021 Covid-19, Mrna, Lnp-s, Pf, B ivalent, 50 Mcg, IM, 12 yrs and above (Moderna) 03/11/2022 Hepatitis B, 20+ yrs 09/10/2014,03/08/2014,02/06 PPD 03/09/2022, 0,03/08/2019,03/04,02/14/2015,01/31/2013,01/25/2012 ,03/26/2010,09/21/2008 Pneumococcal Conjugate Vacci ne, 20-valent ([id number]) 03/09/2022 Pneumococcal Polysaccharide PPV23 (Pneumovax) 09/16/2005 Seasonal [...] Description 08/10/2023 3:00 PM EDT Office Visit [facility] [address] [place], [place] [address] Delmy Jacobsen PA-C [address] 09/09/2023 11:20 AM EDT Office Visit [facility] Lizett Sargent [address] [place] [address] [address] Delmy Jacobsen [place] [address] [facility] [place] [address] 02/15/2024 8:40 AM EDT Office Visit Family Practice [place]ent [address] [facility] [place] [address] Delmy Jacobsen PA-C [address] [facility] [place] [address] Health Maintenance Due Date Last Done Comments [...] 03/04/2017, Additional history exists Albumin/Creatinine Ratio 08/22/2023 042 023, 07/15/2021, 10/20/2019, Additional history exists B-12 [...] D LEVEL ONCE IN A LIFETIME-USE SMARTSET# [id number] Completed 10/23/2022, 07/23/2022 Influenza Vaccine (FLU shot) Completed , 02/04/2022, 01/21/2021, Additional history exists GARDASIL-HPV IMMUNIZATION SERIES Aged Out No longer eligible based on patient's age to complete this topic MENINGOCOCCAL (MENACTRA/MENVEO) Aged Out No longer eligible based on patient's age to complete this topic documented as of this encounter Medical Devices Not on filedocumented as of this encounter Care Teams Inspector Plating Relationship Specialty Start Date End Date Vitor Esqueda III, MD [address] [facility] [place] [address] PCP - General Family Medicine 07/20/18 documented as of this encounter
--- OUTSIDE RECORDS SUMMARY | 2023-08-15 08:29 | External Medical Summary | Summary of Care ---
Author Name Unknown Organization [facility] Address [address] [place] [address] Phone [phone] Care Team Providers Care Informatics Spec Name Role Phone Dheeraj NORWOOD MD, Vitor Baird Primary Care Provider [phone] Reason for Visit * Reason Onset Date Comments Appointment 07/19/2023 Encounter Details Date Type Department Care Team (Late st Contact Info) Description 07/19/2023 Telephone Endocrinology, [place] [address] [place] [address] Carlita Louis PA-C [address] [place] [address] Appointment Allergies Active Allergy Reactions Criticality Noted Date Comments Aspirin 08/05/2016 Depakote Er Unknown 09/12/2007 Salicylates Unknown 10/30/2003 aspirin documented as of this encounter (statuses as of 07/19/2023) Medications Medication Sig Dispensed Refills Start Date End Date Status LEVETIRACETAM 250 MG PO TABS 1 tab twwice daily 0 Active Blood Glucose Monitoring Suppl (Figgu ULTRA SYSTEM) W/DEVICE KITIndications:Type 2 diabetes mellitus with hemoglobin A1c goal of less than 7.0% ([facility]) Use as directed 4 times a [...] A1c goal of less than 7.0% ([facility]) TEST BLOOD SUGAR before breakfast [...] as of this encounter (statuses as of 07/19/2023) Active Problems Problem Noted Date Diagnosed Date [...] as of this encounter (statuses as of 07/19/2023) Resolved Problems Problem Noted Date Diagnosed Date Resolved Date Constipation 09/10/2012 03/07/2018 Overview: ICD-10 update of inactive term ACTIVE CASE MANAGEMENT Keke Solis RN [phone] 01/25/2008 03/03/2010 Type 2 diabetes mellitus wit h hemoglobin A1c goal of less than 7.0% 10/30/2003 03/14/2009 Overview: Per Diabetes Taxonomy. ICD-10 update of inactive term Intellectual disability 10/30/200302/15 Overview: ICD-10 update of inactive term DM type 2, not at goal 10/30/200309/11 Psychotic disorder 10/30/2003 0 documented as of this encounter (statuses as of 07/19/2023) Immunizations Name Administration Dates Next Due COVID-19 mRNA, LNP-s, No Pre serve, 2-Dose Series (Moderna) 07/10/2020,06/12/2020 COVID-19, mRNA, LNP-s, PF, B ooster, 100mcg/0.5mg (Moderna) 09/18/2021,04/01/2021 Covid-19, Mrna, Lnp-s, Pf, B ivalent, 50 Mcg, IM, 12 yrs and above (Moderna) 03/11/2022 Hepatitis B, 20+ yrs 09/10/2014,03/08/2014,02/06 PPD 03/09/2022, 0,03/08/2019,03/04,02/14/2015,01/31/2013,01/25/2012 ,03/26/2010,09/21/2008 Pneumococcal Conjugate Vacci ne, 20-valent ([email or web address]) 03/09/2022 Pneumococcal Polysaccharide PPV23 (Pneumovax) 09/16/2005 Seasonal [...] encounter Miscellaneous Notes * Telephone Encounter - Rosalinda Laird OSA - 07/19/2023 9:13 AM EST Called and spoke to pt surgical scheduler to schedule follow up appts documented in this encounter Plan of Treatment Upcoming Encounters Date Type Department Care Team (Late st Contact Info) Description 07/22/2023 1:30 PM EST Telemedicine General Internal Medicine, [facility] [address] [place] [address] Rose Almaguer MD [address] [place] [address] 08/10/2023 3:00 PM EDT Office Visit [facility] [address] [place] [address] [address] Delmy Jacobsen PA-C [address] [place] [address] 09/09/2023 11:20 AM EDT Office Visit [facility] [address] [place] [address] [address] Delmy Jacobsen PA-C [address] [place] [address] 10/19/2023 3:30 PM EDT Telemedicine Endocrinology, [place] [address] [place] [address] [place], Pharmacist Endocrinology [facility] [place] [address] 01/24/2024 10:30 AM EDT Telemedicine Endocrinology, [place] [address] [place] [address] Kristine Lopez CRNP [address] [place] [address] 02/15/2024 8:40 AM EDT Office Visit [facility] [address] [place] [address] [address] [address] Delmy Jacobsen PA-C [address] [place] [address] [address] 07/19/2024 10:30 AM EST Telemedicine Endocrinology, [place] [address] [place], [place] [address] Carlita Louis PA-C [address] [place] [address] Health Maintenance Due Date Last Done Comments [...] D LEVEL ONCE IN A LIFETIME-USE SMARTSET# [id number] Completed 10/23/2022, 07/23/2022 Influenza Vaccine (FLU shot) Completed , 02/04/2022, 01/21/2021, Additional history exists GARDASIL-HPV IMMUNIZATION SERIES Aged Out No longer eligible based on patient's age to complete this topic MENINGOCOCCAL (MENACTRA/MENVEO) Aged Out No longer eligible based on patient's age to complete this topic documented as of this encounter Medical Devices Not on filedocumented as of this encounter Care Teams Informatics Spec Relationship Specialty Start Date End Date Vitor Esqueda III, MD [address] [place] [address] PCP - General Family Medicine 07/20/18 documented as of this encounter
--- OUTSIDE RECORDS SUMMARY | 2023-08-15 08:30 | External Medical Summary ---
Author Name Unknown Address Unknown Organization K01:[facility] [address] [facility] [address] Laboratory Report Ordering Provider Test Date Status 07/14/2023 16:58:55 Final Observation Date Value Abnormality Reference (Units ) Status BUN 07/14/2023 16:58:55 28 Above high normal 6-20 (mg/dL) Final Creatinine 07/14/2023 16:58:55 0.6 0.5-1.0 (mg/dL) Final Glomerular filtration rate/1.73 sq M.predicted [Volume Rate/Area] in Serum, Plasma or Blood by Creatinine-based formula (CKD-EPI) 07/14/2023 16:58:55 >90 >=60 (mL/min) Final eGFR is calculated based on the CKD-EPI 2020 equation SODIUM 07/14/2023 16:58:55 137 135-146 (m mol/L) Final Potassium 07/14/2023 16:58:55 4.5 3.5-5.1 (m mol/L) Final Cl 07/14/2023 16:58:55 104 98-107 (mm ol/L) Final CO2 07/14/2023 16:58:55 23 22-32 (mmo l/L) Final Anion gap 07/14/2023 16:58:55 10 7-15 (mmol /L) Final Glucose 07/14/2023 16:58:55 122 Above high normal 70 -120 (mg/dL) Final Calcium 07/14/2023 16:58:55 9.2 8.4-10.2 ( mg/dL) Final Performing Location [facility] [address] [facility] [place] [address]
--- OUTSIDE RECORDS SUMMARY | 2023-08-15 08:30 | External Medical Summary | Summary of Care ---
Author Name Unknown Organization [facility] Address [address] [place] [address] Phone [phone] Care Team Providers Care Bobbin Loose End Finder Name Role Phone Dheeraj NORWOOD MD, Vitor Baird Primary Care Provider [phone] Reason for Visit * Reason Comments Outpatient Testing Encounter Details Date Type Department Care Team (Late st Contact Info) Description 06/23/2023 1:10 PM EST Laboratory Laboratory [facility] [address] [id number] [facility] [address] [place] [address] Encounter for long-term (current) use of other medications Allergies Active Allergy Reactions Criticality Noted Date Comments Aspirin 08/05/2016 Depakote Er Unknown 09/12/2007 Salicylates Unknown 10/30/2003 aspirin documented as of this encounter (statuses as of 06/23/2023) Medications Medication Sig Dispensed Refills Start Date End Date Status LEVETIRACETAM 250 MG PO TABS 1 tab twwice daily 0 Active Blood Glucose Monitoring Suppl ([employer] ULTRA SYSTEM) W/DEVICE KITIndications:Type 2 diabetes mellitus with hemoglobin A1c goal of less than 7.0% ([facility]) Use as directed 4 [...] hemoglobin A1c goal of less than 7.0% ([facility]) TEST BLOOD SUGAR before [...] as of this encounter (statuses as of 06/23/2023) Active Problems Problem Noted Date Diagnosed Date [...] as of this encounter (statuses as of 06/23/2023) Resolved Problems Problem Noted Date Diagnosed Date Resolved Date Constipation 09/10/2012 03/07/2018 Overview: ICD-10 update of inactive term ACTIVE CASE MANAGEMENT Keke Solis RN [phone] 01/25/2008 03/03/2010 Type 2 diabetes mellitus wit h hemoglobin A1c goal of less than 7.0% 10/30/2003 03/14/2009 Overview: Per Diabetes Taxonomy. ICD-10 update of inactive term Intellectual disability 10/30/200302/15 Overview: ICD-10 update of inactive term DM type 2, not at goal 10/30/200309/11 Psychotic disorder 10/30/2003 0 documented as of this encounter (statuses as of 06/23/2023) Immunizations Name Administration Dates Next Due COVID-19 mRNA, LNP-s, No Pre serve, 2-Dose Series (Moderna) 07/10/2020,06/12/2020 COVID-19, mRNA, LNP-s, PF, B ooster, 100mcg/0.5mg (Moderna) 09/18/2021,04/01/2021 Covid-19, Mrna, Lnp-s, Pf, B ivalent, 50 Mcg, IM, 12 yrs and above (Moderna) 03/11/2022 Hepatitis B, 20+ yrs 09/10/2014,03/08/2014,02/06 PPD 03/09/2022, 0,03/08/2019,03/04,02/14/2015,01/31/2013,01/25/2012 ,03/26/2010,09/21/2008 Pneumococcal Conjugate Vacci ne, 20-valent ([id number]) 03/09/2022 Pneumococcal Polysaccharide PPV23 (Pneumovax) 09/16/2005 Seasonal [...] Care Team (Late st Contact Info) Description 07/08/2023 11:00 AM EST Office Visit [facility] [address] [place] [address] Delmy Jacobsen PA-C [address] [facility] [place] [address] 09/09/2023 11:20 AM EDT Office Visit [facility] [address] [place] [address] Delmy Jacobsen PA-C [address] [place] [address] 02/15/2024 8:40 AM EDT Office Visit [facility] [place] [address] [place] [address] [address] Delmy Jacobsen PA-C [address] [place] [address] [address] Health Maintenance Due Date Last Done Comments [...] D LEVEL ONCE IN A LIFETIME-USE SMARTSET# 85106 Completed 10/23/2022, 07/23/2022 Influenza Vaccine (FLU shot) [...] Date/Time Associated Diagnosis Comments DIFFERENTIAL, AUTOMATED Routine 06/23/2023 1:06 PM EST Encounter for long-term (current) use of other medications CBC Routine 06/23/2023 1:06 PM EST Encounter for long-term (current) use of other medications CBC Routine 06/23/2023 1:06 PM EST Encounter for long-term (current) use of other medications documented in this encounter Results * (ABNORMAL) DIFFERENTIAL, AUTOMATED (06/23/2023 1:06 PM EST) WBC 9.11 4.00 - 10.80 K/uL 06/23/2023 1:14 PM EST [facility] 56-02 Neutrophils % 75.3(H) 40.0 - 75.0 % 06/23/2023 1:14 PM EST [facility] 56-02 Lymphocytes % 14.3(L) 18.0 - 42.0 % 06/23/2023 1:14 PM EST [facility] 56-02 Monocytes % 10.0 1.0 - 11.0 % 06/23/2023 1:14 PM EST [facility] 56-02 Eosinophils % 0.0 0.0 - 6.0 % 06/23/2023 1:14 PM EST [facility] 56-02 Basophils % 0.4 0.0 - 2.0 % 06/23/2023 1:14 PM EST [facility] 56-02 Absolute Neutrophils 6.86 1.80 - 7.70 K/uL 06/23/2023 1:14 PM EST [facility] 56-02 Absolute Lymphocytes 1.30 1.00 - 4.80 K/ul 06/23/2023 1:14 PM EST [facility] 56-02 Absolute Monocytes 0.91 0.00 - 1.10 K/uL 06/23/2023 1:14 PM EST [facility] 56-02 Absolute Eosinophils 0.00 0.00 - 0.70 K/uL 06/23/2023 1:14 PM EST [facility] 56-02 Absolute Basophils 0.04 0.00 - 0.20 K/uL 06/23/2023 1:14 PM EST [facility] 56-02 Blood Venous blood specimen / Unknown Venipuncture / Unknown 06/23/2023 1:06 PM EST 06/23/2023 1:06 PM EST Betsy Marroquin MD LAB BLOOD ORDERAB LES [facility] 56-[address] [place] [address] * CBC (06/23/2023 1:06 PM EST) WBC 9.11 4.00 - 10.80 K/uL 06/23/2023 1:14 PM [facility] 56- RBC 4.40 3.85 - 5.15 M/uL 06/23/2023 1:14 PM [facility] 56-02 HGB 13.9 12.0 - 15.3 g/dL 06/23/2023 1:14 PM [facility] 56- HCT 41.9 36.0 - 45.2 % 06/23/2023 1:14 PM [facility] 56- MCV 95.2 81.5 - 97.5 fL 06/23/2023 1:14 PM [facility] 56- MCH 31.6 27.0 - 34.0 pg 06/23/2023 1:14 PM [facility] 56- MCHC 33.2 32.0 - 36.0 g/dL 06/23/2023 1:14 PM [facility] 56- RDW 16.3 11.5 - 15.5 % 06/23/2023 1:14 PM [facility] 56- PLT 233 140 - 400 K/uL 06/23/2023 1:14 PM [facility] 56-02 MPV 11.2 6.6 - 11.1 fL 06/23/2023 1:14 PM [facility] 56-02 Blood Venous blood specimen / Unknown Venipuncture / Unknown 06/23/2023 1:06 PM EST 06/23/2023 1:06 PM EST Betsy Marroquin MD LAB BLOOD ORDERAB LES [facility] 56[facility] [address] [facility] [address] documented in this encounter Visit Diagnoses Diagnosis Encounter for long-term (current) use of other medications documented in this encounter Care Teams Bobbin Loose End Finder Relationship Specialty Start Date End Date Vitor Esqueda III, MD [address] [address] PCP - General Family Medicine 07/20/18 documented as of this encounter
--- OUTSIDE RECORDS SUMMARY | 2023-08-15 08:30 | External Medical Summary | Summary of Care ---
Author Name Unknown Organization [facility] Address [address] [place] [address] Phone [phone] Care Team Providers Care Floral Manager Name Role Phone Dheeraj NORWOOD MD, Vitor Baird Primary Care Provider [phone] Reason for Visit * Reason Onset Date Comments Medication Refill 07/01/2023 Encounter Details Date Type Department Care Team (Late st Contact Info) Description 07/01/2023 Refill Family Practice [facility] [address] [place] [address] Vitor Esqueda III, MD [address] [place] [address] Allergies Active Allergy Reactions Criticality Noted Date Comments Aspirin 08/05/2016 Depakote Er Unknown 09/12/2007 Salicylates Unknown 10/30/2003 aspirin documented as of this encounter (statuses as of 07/05/2023) Medications Medication Sig Dispensed Refills Start Date End Date Status LEVETIRACETAM 250 MG PO TABS 1 tab twwice daily 0 Active Blood Glucose Monitoring Suppl ([employer] ULTRA SYSTEM) W/DEVICE KITIndications:Type 2 diabetes mellitus with hemoglobin A1c goal of less than 7.0% ([facility]) Use as directed 4 times a day as needed for Hyperglycemia (high sugar) or Hypoglycemia (low sugar). f E11.9 1 Kit 0 7 Active MEDICAL INSTRUCTIONSIndications: Type 2 diabetes mellitus with hemoglobin A1c goal of less than 7.0% ([facility]) Check glucose daily before supper. May skip [...] by mouth in the morning. 30 Tablet 3 Active OneTouch Ultra In Vitro Strip (Glucose Blood)Indications:Type 2 diabetes mellitus with hemoglobin A1c goal of less than 7.0% ([facility]) TEST BLOOD SUGAR before breakfast and [...] EVERY MORNING 31 Tablet 11 4 Active Empagliflozin 25 MG Oral Tablet (Jardiance) Take 1 Tablet by mouth in the morning. 90 Tablet 2 4 Active documented as of this encounter (statuses as of 07/05/2023) Active Problems Problem Noted Date Diagnosed Date [...] as of this encounter (statuses as of 07/05/2023) Resolved Problems Problem Noted Date Diagnosed Date Resolved Date Constipation 09/10/2012 03/07/2018 Overview: ICD-10 update of inactive term ACTIVE CASE MANAGEMENT Keke Solis RN [phone] 01/25/2008 03/03/2010 Type 2 diabetes mellitus wit h hemoglobin A1c goal of less than 7.0% 10/30/2003 03/14/2009 Overview: Per Diabetes Taxonomy. ICD-10 update of inactive term Intellectual disability 10/30/200302/15 Overview: ICD-10 update of inactive term DM type 2, not at goal 10/30/200309/11 Psychotic disorder 10/30/2003 0 documented as of this encounter (statuses as of 07/05/2023) Immunizations Name Administration Dates Next Due COVID-19 mRNA, LNP-s, No Pre serve, 2-Dose Series (Moderna) 07/10/2020,06/12/2020 COVID-19, mRNA, LNP-s, PF, B ooster, 100mcg/0.5mg (Moderna) 09/18/2021,04/01/2021 Covid-19, Mrna, Lnp-s, Pf, B ivalent, 50 Mcg, IM, 12 yrs and above (Moderna) 03/11/2022 Hepatitis B, 20+ yrs 09/10/2014,03/08/2014,02/06 PPD 03/09/2022, 0,03/08/2019,03/04,02/14/2015,01/31/2013,01/25/2012 ,03/26/2010,09/21/2008 Pneumococcal Conjugate Vacci ne, 20-valent ([id number]) 03/09/2022 Pneumococcal Polysaccharide PPV23 (Pneumovax) 09/16/2005 Seasonal [...] Description 07/08/2023 11:00 AM EST Office Visit [facility] [address] [place] [address] Ann-Marie Delmy CHRIS Billingsley [address] [place] [address] [address] 09/09/2023 11:20 AM EDT Office Visit [facility] [address] [place] [address] Delmy Jacobsen PA-C [address] [facility] [place] [address] 02/15/2024 8:40 AM EDT Office Visit Family Practice [place] [address] [place] [address] Delmy Jacobsen PA-C [address] [facility] [place] [address] Health Maintenance Due Date Last Done Comments [...] Scan 04/06/2025 04/06/2023 Lipid Panel 02/25/2028 02/24/2023, 08/, 10/20/2019, Additional history exists DTaP,Tdap,and Td Vaccines [...] D LEVEL ONCE IN A LIFETIME-USE SMARTSET# [id number] Completed 10/23/2022, 07/23/2022 Influenza Vaccine (FLU shot) Completed , 02/04/2022, 01/21/2021, Additional history exists GARDASIL-HPV IMMUNIZATION SERIES Aged Out No longer eligible based on patient's age to complete this topic MENINGOCOCCAL (MENACTRA/MENVEO) Aged Out No longer eligible based on patient's age to complete this topic documented as of this encounter Medical Devices Not on filedocumented as of this encounter Care Teams Floral Manager Relationship Specialty Start Date End Date Vitor Esqueda III, MD [address] [place] [address] PCP - General Family Medicine 07/20/18 documented as of this encounter
--- OUTSIDE RECORDS SUMMARY | 2023-08-15 08:30 | External Medical Summary | Summary of Care ---
Author Name Unknown Organization [facility] Address [address] [place] [address] Phone [phone] Care Team Providers Care Supervisor Body Assembly Name Role Phone Dheeraj NORWOOD MD, Vitro Baird Primary Care Provider [phone] Reason for Visit * Reason Onset Date Comments Medication Refill 07/07/2023 Encounter Details Date Type Department Care Team (Late st Contact Info) Description 07/07/2023 Refill Family Practice [facility] [address] [place] [address] Vitor Esqueda III, MD [address] [place] [address] Allergies Active Allergy Reactions Criticality Noted Date Comments Aspirin 08/05/2016 Depakote Er Unknown 09/12/2007 Salicylates Unknown 10/30/2003 aspirin documented as of this encounter (statuses as of 07/07/2023) Medications Medication Sig Dispensed Refills Start Date End Date Status LEVETIRACETAM 250 MG PO TABS 1 tab twwice daily 0 Active Blood Glucose Monitoring Suppl ([employer] ULTRA SYSTEM) W/DEVICE KITIndications:Type 2 diabetes mellitus with hemoglobin A1c goal of less than 7.0% ([facility]) Use as directed 4 times a day as needed for Hyperglycemia (high sugar) or Hypoglycemia (low sugar). f E11.9 1 Kit 0 11/21/19 17 Active MEDICAL INSTRUCTIONSIndications: Type 2 diabetes mellitus with hemoglobin A1c goal of less than 7.0% ([facility]) Check glucose daily before supper. May skip on days of outings. May check if signs or symptoms of low blood sugar. (may refer to handout) 1 Each 1 02/27/20 17 Active cloZAPine 200 MG Oral Tablet 3 tabs at night 90 Tablet 5 07/16/19 22 Active Depend Pant Sm/MedIndications:Urinar y incontinence, unspecified type As needed 140 Each 10/24/19 22 Active Depend Pant Large As needed 144 Each 11/01/19 22 Active Triamcinolone Acetonide 0.1 % External Cream (Aristocort)Indications: Ear lesion Apply topically to affected area 2 times a day as needed for Other (rash). To affected area. 15 g 5 06/24/19 23 Active Phenytoin Sodium Extended 100 MG Oral Capsule (Dilantin) Take 2 Capsules by mouth in the morning and 2 Capsules before bedtime. 0 Active Boost 100 Calorie Smart Oral Liquid DAILY IN THE MORNING 0 10/15/19 23 Active Famotidine 40 MG Oral Tablet (Pepcid) Take 1 Tablet by mouth at bedtime. 30 Tablet 12/08/19 23 Active Glimepiride 1 MG Oral Tablet (Amaryl) Take one tablet daily in addition to Glimepiride 2mg if blood sugar is greater than 300. 30 Tablet 5 01/23/20 23 Active Ammonium Lactate 12 % External Cream (Lac-Hydrin) Apply to feet once daily 385 g 3 02/03/20 23 Active One-A-Day Womens Oral Tablet TAKE 1 TABLET BY MOUTH ONCE DAILY (DX: FOR GENERAL HEALTH) 30 Tablet 11 02/12/20 23 Active valACYclovir HCl 500 MG Oral Tablet (Valtrex)Indications:Her pes simplex disease Take 1 Tablet by mouth in the morning. 30 Tablet 02/14/20 23 Active OneTouch Ultra In Vitro Strip (Glucose Blood)Indications:Type 2 diabetes mellitus with hemoglobin A1c goal of less than 7.0% ([facility]) TEST BLOOD SUGAR before breakfast and supper FOR DIABETES 200 Strip 2 02/17/20 23 Active Fluticasone Propionate 50 MCG/ACT Nasal Suspension (Flonase)Indications:Acu te maxillary sinusitis, recurrence not specified INSTILL 2 SPRAYS INTO EACH NOSTRIL ONCE DAILY FOR ALLERGIES 16 g 5 03/04/20 23 Active Polyethylene Glycol 3350 17 GM/SCOOP Oral Powder (Miralax) MIX 1 CAPFUL (17GM) WITH 8OZ OF FLUID AND DRINK Twice DAILY FOR CONSTIPATION HOLD FOR LOOSE STOOLS OR DIARRHEA 476 g 5 03/04/20 Active Calcium Citrate-Vitamin D 200-3.125 MG-MCG Oral Tablet Take 2 Tablets by mouth in the morning. 0 Active Accu-Chek Safe-T Pro LancetsIndications:Type 2 diabetes mellitus with hemoglobin A1c goal of less than 7.0% ([facility]) USE TO TEST BLOOD SUGAR twice DAILY FOR DM 200 Each 1 03/15/20 Active metFORMIN HCl ER 500 MG Oral Tablet Extended Release 24 Hour (Glucophage XR) TAKE 2 TABLETS (1000MG) BY MOUTH TWICE DAILY FOR DIABETES TO BE BUBBLE PACKED. 124 Tablet 11 04/15/20 23 Active Atorvastatin Calcium 40 MG Oral Tablet (Lipitor)Indications:Pur e hypercholesterolemia TAKE 1 TABLET BY MOUTH AT BEDTIME (DX: FOR CHOLESTEROL) 31 Tablet 11 04/16/20 23 Active Docusate Sodium 100 MG Oral Capsule (Colace)Indications:Cons tipation, unspecified constipation type TAKE 1 CAPSULE BY MOUTH TWICE DAILY (DX: CONSTIPATION) 62 Capsule 04/16/20 23 Active Glimepiride 2 MG Oral Tablet (Amaryl)Indications:Type 2 diabetes mellitus with hemoglobin A1c goal of less than 7.0% ([facility]) TAKE 1 TABLET BY MOUTH ONCE DAILY WITH FIRST MAIN MEAL OF THE DAY (DX: DIABETES) 31 Tablet 11 04/16/20 23 Active Empagliflozin 25 MG Oral Tablet (Jardiance) Take 1 Tablet by mouth in the morning. 90 Tablet 2 06/28/19 24 Active B Complex-C Oral Tablet (Therapeutic B Complex w/C) Take 1 Tablet by mouth in the morning. In the morning.. 31 Tablet 11 07/07/19 24 Active B Complex-C Oral Tablet (Therapeutic B Complex w/C) TAKE 1 TABLET BY MOUTH EVERY MORNING 31 Tablet 11 05/24/19 24 024 Discontin ued(Refil l) documented as of this encounter (statuses as of 07/07/2023) Active Problems Problem Noted Date Diagnosed Date [...] as of this encounter (statuses as of 07/07/2023) Resolved Problems Problem Noted Date Diagnosed Date Resolved Date Constipation 09/10/2012 03/07/2018 Overview: ICD-10 update of inactive term ACTIVE CASE MANAGEMENT Keke Solis RN [phone] 01/25/2008 03/03/2010 Type 2 diabetes mellitus wit h hemoglobin A1c goal of less than 7.0% 10/30/2003 03/14/2009 Overview: Per Diabetes Taxonomy. ICD-10 update of inactive term Intellectual disability 10/30/200302/15 Overview: ICD-10 update of inactive term DM type 2, not at goal 10/30/200309/11 Psychotic disorder 10/30/2003 0 documented as of this encounter (statuses as of 07/07/2023) Immunizations Name Administration Dates Next Due COVID-19 mRNA, LNP-s, No Pre serve, 2-Dose Series (Moderna) 07/10/2020,06/12/2020 COVID-19, mRNA, LNP-s, PF, B ooster, 100mcg/0.5mg (Moderna) 09/18/2021,04/01/2021 Covid-19, Mrna, Lnp-s, Pf, B ivalent, 50 Mcg, IM, 12 yrs and above (Moderna) 03/11/2022 Hepatitis B, 20+ yrs 09/10/2014,03/08/2014,02/06 PPD 03/09/2022, 0,03/08/2019,03/04,02/14/2015,01/31/2013,01/25/2012 ,03/26/2010,09/21/2008 Pneumococcal Conjugate Vacci ne, 20-valent ([id number]) 03/09/2022 Pneumococcal Polysaccharide PPV23 (Pneumovax) 09/16/2005 Seasonal [...] encounter Miscellaneous Notes * Telephone Encounter - Delmy Jacobsen PA-C - 07/07/2023 2:02 PM ESTSigned Prescriptions: Disp Refills B Complex-C Oral Tablet (Therapeutic B Com*31 Tab*11 Sig: Take 1 Tablet by mouth in the morning. In the morning.. Authorizing Provider: DELMY JACOBSEN * Telephone Encounter - Gissel Le Kentaura - 07/07/2023 12:16 PM EST Pending Prescriptions: Disp Refills B Complex-C Oral Tablet (Therapeutic B Com*31 Tab*11 Sig: Take 1 Tablet by mouth in the morning. In the morning.. * Telephone Encounter - Gissel Le Kentaura - 07/07/2023 12:15 PM EST Did you pend patient's preferred pharmacy and medication before forwarding?yes Pharmacy: [facility] [address] Pending Prescriptions: Disp Refills B Complex-C Oral Tablet (Therapeutic B Co*31 Tab*11 Sig: Take 1 Tablet by mouth in the morning. In the morning.. Last Visit: 06/23/2023 (in office), Visit date not found (telemedicine) Next Visit: 07/08/2023 If no future appointments scheduled, and last appointment is greater than a year ago, please schedule patient for a follow-up appointment Last date the medication was ordered: 05/24/2023 Is this request for a controlled substance?No [...] AM HGBA1C 5.8 (H) 04/22/2020 09:29 AM * Telephone Encounter - Dwight Woodard OSA - 07/07/2023 12:01 PM EST Did you pend patient's preferred pharmacy and medication before forwarding?yes Pharmacy: [facility] [place] [address] [facility] Pending Prescriptions: Disp Refills B Complex-C Oral Tablet (Therapeutic B Co*31 Tab*11 Sig: Take 1 Tablet by mouth in the morning. In the morning.. Last Visit: 06/23/2023 (in office), Visit date not found (telemedicine) Next Visit: 07/08/2023 If no future appointments scheduled, and last appointment is greater than a year ago, please schedule patient for a follow-up appointment Last date the medication was ordered: 05/24/2023 Is this request for a controlled substance?No [...] Care Team (Late st Contact Info) Description 07/14/2023 3:00 PM EST Office Visit [facility] [address] [place] [address] Delmy Jacobsen PA-C [address] [place] [address] 09/09/2023 11:20 AM EDT Office Visit [facility] [place] [address] [place] [address] Delmy Jacobsen PA-C [address] [place] [address] 02/15/2024 8:40 AM EDT Office Visit [facility] [address] [place] [address] Delmy Jacobsen PADomingaC [address] [place] [address] [address] Health Maintenance Due Date Last Done Comments [...] D LEVEL ONCE IN A LIFETIME-USE SMARTSET# [id number] Completed 10/23/2022, 07/23/2022 Influenza Vaccine (FLU shot) Completed , 02/04/2022, 01/21/2021, Additional history exists GARDASIL-HPV IMMUNIZATION SERIES Aged Out No longer eligible based on patient's age to complete this topic MENINGOCOCCAL (MENACTRA/MENVEO) Aged Out No longer eligible based on patient's age to complete this topic documented as of this encounter Medical Devices Not on filedocumented as of this encounter Care Teams Supervisor Body Assembly Relationship Specialty Start Date End Date Vitor Esqueda III, MD [address] [place] [address] PCP - General Family Medicine 07/20/18 documented as of this encounter
--- OUTSIDE RECORDS SUMMARY | 2023-08-15 08:30 | External Medical Summary | Summary of Care ---
Author Name Unknown Organization [facility] Address [address] [place] [address] Phone [phone] Care Team Providers Care Neuro Urologist Name Role Phone Dheeraj NORWOOD MD, Vitor Baird Primary Care Provider [phone] Reason for Visit * Reason Onset Date Comments Medication Refill 06/28/2023 Encounter Details Date Type Department Care Team (Late st Contact Info) Description 06/28/2023 Refill Family Practice [facility] [address] [place] [address] Vitor Esqueda III, MD [address] [place] [address] Allergies Active Allergy Reactions Criticality Noted Date Comments Aspirin 08/05/2016 Depakote Er Unknown 09/12/2007 Salicylates Unknown 10/30/2003 aspirin documented as of this encounter (statuses as of 06/28/2023) Medications Medication Sig Dispensed Refills Start Date End Date Status LEVETIRACETAM 250 MG PO TABS 1 tab twwice daily 0 Active Blood Glucose Monitoring Suppl (Message Systems ULTRA SYSTEM) W/DEVICE KITIndications:Type 2 diabetes mellitus with hemoglobin A1c goal of less than 7.0% ([facility]) Use as directed 4 times a day as needed for Hyperglycemia (high sugar) or Hypoglycemia (low sugar). f E11.9 1 Kit 0 11/21/19 17 Active MEDICAL INSTRUCTIONSIndications: Type 2 diabetes mellitus with hemoglobin A1c goal of less than 7.0% ([facility]) Check glucose daily before supper. [...] hemoglobin A1c goal of less than 7.0% ([facility]) TEST BLOOD SUGAR before breakfast [...] TWICE DAILY (DX: CONSTIPATION) 62 Capsule 11 04/16/20 23 Active Glimepiride 2 MG Oral Tablet (Amaryl)Indications:Type 2 diabetes mellitus with hemoglobin A1c goal of less than 7.0% (HCC) TAKE 1 TABLET BY MOUTH ONCE DAILY WITH FIRST MAIN MEAL OF THE DAY (DX: DIABETES) 31 Tablet 11 04/16/20 23 Active B Complex-C Oral Tablet (Therapeutic B Complex w/C) TAKE 1 TABLET BY MOUTH EVERY MORNING 31 Tablet 11 05/24/19 24 Active Empagliflozin 25 MG Oral Tablet (Jardiance) Take 1 Tablet by mouth in the morning. 90 Tablet 2 06/28/19 24 Active Empagliflozin 25 MG Oral Tablet (Jardiance) Take 1 Tablet by mouth in the morning. 90 Tablet 2 10/28/19 23 024 Discontin ued(Refil l) documented as of this encounter (statuses as of 06/28/2023) Active Problems Problem Noted Date Diagnosed Date [...] as of this encounter (statuses as of 06/28/2023) Resolved Problems Problem Noted Date Diagnosed Date Resolved Date Constipation 09/10/2012 03/07/2018 Overview: ICD-10 update of inactive term ACTIVE CASE MANAGEMENT Keke Solis RN [phone] 01/25/2008 03/03/2010 Type 2 diabetes mellitus wit h hemoglobin A1c goal of less than 7.0% 10/30/2003 03/14/2009 Overview: Per Diabetes Taxonomy. ICD-10 update of inactive term Intellectual disability 10/30/200302/15 Overview: ICD-10 update of inactive term DM type 2, not at goal 10/30/200309/11 Psychotic disorder 10/30/2003 0 documented as of this encounter (statuses as of 06/28/2023) Immunizations Name Administration Dates Next Due COVID-19 mRNA, LNP-s, No Pre serve, 2-Dose Series (Moderna) 07/10/2020,06/12/2020 COVID-19, mRNA, LNP-s, PF, B ooster, 100mcg/0.5mg (Moderna) 09/18/2021,04/01/2021 Covid-19, Mrna, Lnp-s, Pf, B ivalent, 50 Mcg, IM, 12 yrs and above (Moderna) 03/11/2022 Hepatitis B, 20+ yrs 09/10/2014,03/08/2014,02/06 PPD 03/09/2022, 0,03/08/2019,03/04,02/14/2015,01/31/2013,01/25/2012 ,03/26/2010,09/21/2008 Pneumococcal Conjugate Vacci ne, 20-valent ([id number]) 03/09/2022 Pneumococcal Polysaccharide PPV23 (Pneumovax) 09/16/2005 Seasonal [...] encounter Miscellaneous Notes * Telephone Encounter - Elana Retana DO - 06/28/2023 1:27 PM ESTSigned Prescriptions: Disp Refills Empagliflozin 25 MG Oral Tablet (Jardiance)90 Tab*2 Sig: Take 1 Tablet by mouth in the morning. Authorizing Provider: ELANA RETANA * Telephone Encounter - Gissel Le, [employer] - 06/28/2023 1:15 PM EST Pending Prescriptions: Disp Refills Empagliflozin 25 MG Oral Tablet (Jardiance)90 Tab*2 Sig: Take 1 Tablet by mouth in the morning. * Telephone Encounter - Gissel Le, [employer] - 06/28/2023 1:14 PM EST Did you pend patient's preferred pharmacy and medication before forwarding?yes Pharmacy: [facility] [address] Pending Prescriptions: Disp Refills Empagliflozin 25 MG Oral Tablet (Jardianc*90 Tab*2 Sig: Take 1 Tablet by mouth in the morning. Last Visit: 06/23/2023 (in office), Visit date not found (telemedicine) Next Visit: 07/08/2023 If no future appointments scheduled, and last appointment is greater than a year ago, please schedule patient for a follow-up appointment Last date the medication was ordered: 10/27/2022 Is this request for a controlled substance?No [...] 04/22/2020 09:29 AM * Telephone Encounter - Megan Cedillo, [facility] - 06/28/2023 1:10 PM EST Did you pend patient's preferred pharmacy and medication before forwarding?yes Pharmacy: [facility] [place] [id number] [address] [facility] [address] [facility] Pending Prescriptions: Disp Refills Empagliflozin 25 MG Oral Tablet (Jardianc*90 Tab*2 Sig: Take 1 Tablet by mouth in the morning. Last Visit: 06/23/2023 (in office), Visit date not found (telemedicine) Next Visit: 07/08/2023 If no future appointments scheduled, and last appointment is greater than a year ago, please schedule patient for a follow-up appointment Last date the medication was ordered: 10/27/22 Is this request for a controlled substance?No [...] Description 07/08/2023 11:00 AM EST Office Visit [facility] [address] [place] [address] [address] Delmy Jacobsen PA-C [address] [place] [address] [address] 09/09/2023 11:20 AM EDT Office Visit [facility] [address] [place] [address] [address] [address] Delmy Jacobsen PA-C [address] [place] [address] [address] 02/15/2024 8:40 AM EDT Office Visit [facility] [address] [place] [address] Delmy Jacobsen PA-C [address] [place] [address] Health Maintenance Due Date Last Done Comments [...] D LEVEL ONCE IN A LIFETIME-USE SMARTSET# [id number] Completed 10/23/2022, 07/23/2022 Influenza Vaccine (FLU shot) Completed , 02/04/2022, 01/21/2021, Additional history exists GARDASIL-HPV IMMUNIZATION SERIES Aged Out No longer eligible based on patient's age to complete this topic MENINGOCOCCAL (MENACTRA/MENVEO) Aged Out No longer eligible based on patient's age to complete this topic documented as of this encounter Medical Devices Not on filedocumented as of this encounter Care Teams Neuro Urologist Relationship Specialty Start Date End Date Vitor Esqueda III, MD [address] [place] [address] PCP - General Family Medicine 07/20/18 documented as of this encounter
--- OUTSIDE RECORDS SUMMARY | 2023-08-15 08:30 | External Medical Summary | Summary of Care ---
Author Name Unknown Organization [facility] Address [address] [place] [address] Phone [phone] Care Team Providers Care Parts Product Analyst Name Role Phone Dheeraj NORWOOD MD, Vitor Baird Primary Care Provider [phone] Encounter Details Date Type Department Care Team (Late st Contact Info) Description 07/01/2023 2:30 PM EST Scheduled Telephone Care Coordination and Integration [address], [place] [id number] Rosalinda Delgado, Community Health Communication Consultant [address], [place] [id number] Allergies Active Allergy Reactions Criticality Noted Date Comments Aspirin 08/05/2016 Depakote Er Unknown 09/12/2007 Salicylates Unknown 10/30/2003 aspirin documented as of this encounter (statuses as of 07/01/2023) Medications Medication Sig Dispensed Refills Start Date End Date Status LEVETIRACETAM 250 MG PO TABS 1 tab twwice daily 0 Active Blood Glucose Monitoring Suppl ([employer] ULTRA SYSTEM) W/DEVICE KITIndications:Type 2 diabetes mellitus [...] goal of less than 7.0% ([facility]) TEST BLOOD SUGAR before breakfast [...] as of this encounter (statuses as of 07/01/2023) Active Problems Problem Noted Date Diagnosed Date [...] as of this encounter (statuses as of 07/01/2023) Resolved Problems Problem Noted Date Diagnosed Date Resolved Date Constipation 09/10/2012 03/07/2018 Overview: ICD-10 update of inactive term ACTIVE CASE MANAGEMENT Keke Solis RN [phone] 01/25/2008 03/03/2010 Type 2 diabetes mellitus wit h hemoglobin A1c goal of less than 7.0% 10/30/2003 03/14/2009 Overview: Per Diabetes Taxonomy. ICD-10 update of inactive term Intellectual disability 10/30/200302/15 Overview: ICD-10 update of inactive term DM type 2, not at goal 10/30/200309/11 Psychotic disorder 10/30/2003 0 documented as of this encounter (statuses as of 07/01/2023) Immunizations Name Administration Dates Next Due COVID-19 mRNA, LNP-s, No Pre serve, 2-Dose Series (Moderna) 07/10/2020,06/12/2020 COVID-19, mRNA, LNP-s, PF, B ooster, 100mcg/0.5mg (Moderna) 09/18/2021,04/01/2021 Covid-19, Mrna, Lnp-s, Pf, B ivalent, 50 Mcg, IM, 12 yrs and above (Moderna) 03/11/2022 Hepatitis B, 20+ yrs 09/10/2014,03/08/2014,02/06 PPD 03/09/2022, 0,03/08/2019,03/04,02/14/2015,01/31/2013,01/25/2012 ,03/26/2010,09/21/2008 Pneumococcal Conjugate Vacci ne, 20-valent ([id number]) 03/09/2022 Pneumococcal Polysaccharide PPV23 (Pneumovax) 09/16/2005 Seasonal [...] as of this encounter Progress Notes * Rosalinda Delgado, Community Health Communication Consultant - 07/01/2023 11:26 AM EST Telemedicine visit: No Community Health Communication Consultant (CLAUDE) documentation: CLAUDE f/u call per Marycarmen Hubbard RN CM Spoke w/ Mima @ [employer] Completing PT 1-2x weekly Reports fatigue, tires easily; is typically more tired after an outing. Staff feel this is her new baseline Denies respiratory symptoms Aware to call with needs/concerns Direct line provided for R.Hubbard, RN CM documented in this encounter Plan of Treatment Upcoming Encounters Date Type Department Care Team (Late st Contact Info) Description 07/08/2023 11:00 AM EST Office Visit [facility] [address] [facility] [place] [address] [address] Delmy Jacobsen PA-C [address] [place] [address] 09/09/2023 11:20 AM EDT Office Visit [facility] [address] [facility] [place] [address] Delmy Jacobsen PA-C [address] [address] 02/15/2024 8:40 AM EDT Office Visit [facility] [address] [place] [address] Delmy Jacobsen, CHRIS [address] [address] Health Maintenance Due Date Last Done Comments [...] D LEVEL ONCE IN A LIFETIME-USE SMARTSET# [id number] Completed 10/23/2022, 07/23/2022 Influenza Vaccine (FLU shot) Completed , 02/04/2022, 01/21/2021, Additional history exists GARDASIL-HPV IMMUNIZATION SERIES Aged Out No longer eligible based on patient's age to complete this topic MENINGOCOCCAL (MENACTRA/MENVEO) Aged Out No longer eligible based on patient's age to complete this topic documented as of this encounter Medical Devices Not on filedocumented as of this encounter Care Teams Parts Product Analyst Relationship Specialty Start Date End Date Vitor Esqueda III, MD [address] [facility] [place] [address] PCP - General Family Medicine 07/20/18 documented as of this encounter
--- OUTSIDE RECORDS SUMMARY | 2023-08-15 08:30 | External Medical Summary | Summary of Care ---
Author Name Unknown Organization [facility] Address [address] [place] [address] Phone [phone] Care Team Providers Care Prick Stitcher Name Role Phone Dheeraj NORWOOD MD, Vitor Baird Primary Care Provider [phone] Reason for Visit * Reason Comments Outpatient Testing Encounter Details Date Type Department Care Team (Late st Contact Info) Description 07/14/2023 4:50 PM EST Laboratory Laboratory [facility] [address] [place] [address] [facility] 200 [place] [address] Encounter for long-term (current) use of other medications; Type 2 diabetes mellitus with hemoglobin A1c goal of less than 7.0% (HCC); Abnormal blood chemistry Allergies Active Allergy Reactions Criticality Noted Date Comments Aspirin 08/05/2016 Depakote Er Unknown 09/12/2007 Salicylates Unknown 10/30/2003 aspirin documented as of this encounter (statuses as of 07/14/2023) Medications Medication Sig Dispensed Refills Start Date End Date Status LEVETIRACETAM 250 MG PO TABS 1 tab twwice daily 0 Active Blood Glucose Monitoring Suppl (doubleTwistTOUCH ULTRA SYSTEM) W/DEVICE KITIndications:Type 2 diabetes mellitus with hemoglobin A1c goal of less than 7.0% (HCC) Use as directed 4 times a day as needed for Hyperglycemia (high sugar) or Hypoglycemia (low sugar). f E11.9 1 Kit 0 7 Active MEDICAL INSTRUCTIONSIndications: Type 2 diabetes mellitus with hemoglobin A1c goal of less than 7.0% ([facility]) Check glucose daily before supper. May skip [...] Depend Pant Large As needed 144 Each 2 Active Triamcinolone Acetonide 0.1 % External [...] goal of less than 7.0% ([facility]) TEST BLOOD SUGAR before breakfast and supper [...] term ACTIVE CASE MANAGEMENT Keke Solis RN [phone] 01/25/2008 03/03/2010 Type 2 diabetes mellitus wit [...] 0,03/08/2019,03/04,02/14/2015,01/31/2013,01/25/2012 ,03/26/2010,09/21/2008 Pneumococcal Conjugate Vacci ne, 20-valent ([id number]) 03/09/2022 Pneumococcal Polysaccharide PPV23 (Pneumovax) 09/16/2005 Seasonal [...] 3:00 PM EDT [facility] [address] [place] [address] [address] Delmy Jacobsen PA-C [address] [place] [address] 09/09/2023 11:20 AM EDT Office Visit [facility] [address] [facility] [place] [address] Delmy Jacobsen PA-C [address] [place] [address] [address] 02/15/2024 8:40 AM EDT Office Visit [facility] [address] [place] [address] [address] Delmy Jacobsen PA-C [address] [place] [address] [address] Pending Results Name Type Priority Associated Diagnoses Date /Time CBC WITH WBC DIFFERENTIAL Lab Routine Encounter for long-term (current) use of other medications 07/14/2023 4:58 PM EST HEMOGLOBIN A1C Lab Routine Type 2 diabetes mellitus with hemoglobin A1c goal of less than 7.0% ([facility]) 07/14/2023 4:58 PM EST LACTATE Lab Routine Abnormal blood chemistry 07/14/2023 4:58 PM EST BASIC METABOLIC PANEL Lab Routine Abnormal blood chemistry 07/14/2023 4:58 PM EST CBC Lab Routine Encounter for long-term (current) use of other medications 07/14/2023 4:58 PM EST DIFFERENTIAL, AUTOMATED Lab Routine Encounter for long-term (current) use of other medications 07/14/2023 4:58 PM EST Health Maintenance Due Date Last Done Comments [...] D LEVEL ONCE IN A LIFETIME-USE SMARTSET# [id number] Completed 10/23/2022, 07/23/2022 Influenza Vaccine (FLU shot) [...] for long-term (current) use of other medications Type 2 diabetes mellitus with hemoglobin A1c goal of less than 7.0% (HCC) Abnormal blood chemistry Other abnormal blood chemistry documented in this encounter Care Teams Prick Stitcher Relationship Specialty Start Date End Date Vitor Esqueda III, MD [address] [place] [address] PCP - General Family Medicine 07/20/18 documented as of this encounter
--- OUTSIDE RECORDS SUMMARY | 2023-08-15 08:30 | External Medical Summary | Summary of Care ---
Author Name Unknown Organization [facility] Address [address] [place] [address] Phone [phone] Care Team Providers Care Anime Artist Name Role Phone Dheeraj NORWOOD MD, Vitor Baird Primary Care Provider [phone] Reason for Visit * Reason Comments Hospital Follow-Up Admitted for influen za A and general weakness Encounter Details Date Type Department Care Team (Late st Contact Info) Description 06/23/2023 12:00 PM EST Office Visit [facility] [address] [place] [address] Delmy Jacobsen PA-C 200 [facility] [place] [address] Influenza A*; Hospital discharge follow-up; Type 2 diabetes mellitus with hemoglobin A1c goal of less than 7.0% (HCC); Seizure disorder, simple partial, 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); Mild intellectual disability Allergies Active Allergy Reactions Criticality Noted Date Comments Aspirin 08/05/2016 Depakote Er Unknown 09/12/2007 Salicylates Unknown 10/30/2003 aspirin documented as of this encounter (statuses as of 06/23/2023) Medications Medication Sig Dispensed Refills Start Date End Date Status LEVETIRACETAM 250 MG PO TABS 1 tab twwice daily 0 Active Blood Glucose Monitoring Suppl ([employer] Lion IndonesiaUCH ULTRA SYSTEM) W/DEVICE KITIndications:Type 2 diabetes mellitus [...] term ACTIVE CASE MANAGEMENT Keke Solis RN [phone] 01/25/2008 03/03/2010 Type 2 diabetes mellitus wit [...] 0,03/08/2019,03/04,02/14/2015,01/31/2013,01/25/2012 ,03/26/2010,09/21/2008 Pneumococcal Conjugate Vacci ne, 20-valent ([id number]) 03/09/2022 Pneumococcal Polysaccharide PPV23 (Pneumovax) 09/16/2005 Seasonal [...] Sign Reading Time Taken Comments Blood Pressure 98/60 06/23/2023 12:17 PM EST Pulse 94 06/23/2023 12:17 PM EST Temperature 36.6 C (97.9 F) 06/23/2023 12:[address] Respiratory Rate - - Oxygen Saturation 96% 06/23/2023 12:17 PM EST Inhaled Oxygen Concentration - - Weight 54 kg (119 lb) 06/23/2023 12:17 PM EST Height 167.6 cm (5' 6") 06/23/2023 12:17 PM EST Body Mass Index 19.21 06/23/2023 12:17 PM EST documented in this encounter Progress Notes * Delmy Jacobsen PA-C - 06/23/2023 12:44 PM EST Images from the original note were not included. History of Present Illness Brittany Oneill is a 63 year old female that presents for Hospital Follow-Up (Admitted for influenza A and general weakness) Patient is a 63 year old female who presents after hospitalization. Had bronchitis beginning of year. Then about 2 weeks after got the flu. Was admitted and discharged. Returned again to Er in 24 hours. Was admitted on 06/11 and discharged on 06/17. She is accompanied by staff. Seems to be going better. Still tires easily. Getting physical therapy 3 times a week. Appetite good Sleep good Urination/ bowel movements good./ Physical Exam Vitals: 06/23/23 1217 Temp: 36.6 C (97.9 F) Pulse: 94 SpO2: 96% BP: 98/60 BMI: 19.22 BP Readings from Last 3 Encounters: 06/23/23 98/60 05/26/23 103/68 05/04/23 100/64 Wt Readings from Last 3 Encounters: 06/23/23 54 kg (119 lb) 05/26/23 55.8 kg (123 lb) 05/04/23 54 kg (119 lb) General: alert, healthy, no distress, well nourished, well developed, comfortable, and cooperative Head: Normocephalic, No masses, lesions, tenderness or abnormalities Eye Exam: PERRLA, extraocular movements intact, conjunctiva are pink and non- injected, sclera clear Neck: supple, no adenopathy, no bruits, thyroid normal size, non-tender, without nodularity Heart: regular rate & rhythm, no murmur, and no gallops Lungs: chest symmetric with normal AP diameter, no chest deformities noted, normal respiratory rateand rhythm, no chest wall tenderness, diaphragmatic excursion normal, lungs clear to auscultation Extremities: less than 2 second capillary refill, no joint deformities, effusion, or inflammation, no edema, no skin discoloration, no clubbing, no cyanosis I have reviewed the following results: None Assessment and Plan Influenza A (Primary) Hospital discharge follow-up Type 2 diabetes mellitus with hemoglobin A1c goal of less than 7.0% (HCC) Seizure disorder, simple partial, 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) Mild intellectual disability Improving. Continue with physical therapy. Wrap-Up Time: I spent a total of 30-39 minutes (exact time 33 mins) on the date of service in preparation, delivery, and documentation of the care provided to Brittany Oneill excluding any time spent in the performance of separately billed services. documented in this encounter Nursing Notes * Cathryn Miles LPN - 06/23/2023 12:15 PM EST The patient has been properly identified by confirmation of name and date of . Chief Complaint Patient presents with Hospital Follow-Up Admitted for influenza A and general weakness Is accompanied by staff leader as pt still resides at [facility]. Was admitted for the flu then went back to ER 12 hrs later and was admitted for a week with ongoing flu Sx and generalized weakness, lethargy. No change in medication list, was no D/C on any meds. Pt doing better today, she is following instructions when taking vitals. Still is not aware of surroundings when sitting, will sit down without noticing where the chair is. documented in this encounter Plan of Treatment Upcoming Encounters Date Type Department Care Team (Late st Contact Info) Description 07/08/2023 11:00 AM EST Office Visit [facility] [place] [address] [place] [address] Delmy Jacobsen PA-C [address] [place] [address] 09/09/2023 11:20 AM EDT Office Visit [facility] [place] [address] [place] [address] Delmy Jacobsen PA-C [address] [facility] [place] [address] 02/15/2024 8:40 AM EDT Office Visit [facility] [place] [address] [place] [address] Delmy Jacobsen PA-C [address] [facility] [place] [address] Health Maintenance Due Date Last Done Comments [...] D LEVEL ONCE IN A LIFETIME-USE SMARTSET# [id number] Completed 10/23/2022, 07/23/2022 Influenza Vaccine (FLU shot) Completed , 02/04/2022, 01/21/2021, Additional history exists GARDASIL-HPV IMMUNIZATION SERIES Aged Out No longer eligible based on patient's age to complete this topic MENINGOCOCCAL (MENACTRA/MENVEO) Aged Out No longer eligible based on patient's age to complete this topic documented as of this encounter Medical Devices Not on filedocumented as of this encounter Visit Diagnoses Diagnosis Influenza A- Primary Influenza with other respiratory manifestations Hospital discharge follow-up Other follow-up examination Type 2 diabetes mellitus with hemoglobin A1c goal of less than 7.0% (HCC) Seizure disorder, simple partial, 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
--- OUTSIDE RECORDS SUMMARY | 2023-08-15 08:30 | External Medical Summary | Summary of Care ---
Author Name Unknown Organization [facility] Address [address] [place] [address] Phone [phone] Care Team Providers Care Ingot Passer Name Role Phone Dheeraj NORWOOD MD, Vitor Baird Primary Care Provider [phone] Encounter Details Date Type Department Care Team (Late st Contact Info) Description 07/09/2023 1:45 PM EST Scheduled Telephone Care Coordination and Integration [address] [place] [address] Cordelia Fleming, [facility] Retoucher Photoengraving [address], [place] [id number] Allergies Active Allergy Reactions Criticality Noted Date Comments Aspirin 08/05/2016 Depakote Er Unknown 09/12/2007 Salicylates Unknown 10/30/2003 aspirin documented as of this encounter (statuses as of 07/09/2023) Medications Medication Sig Dispensed Refills Start Date End Date Status LEVETIRACETAM 250 MG PO TABS 1 tab twwice daily 0 Active Blood Glucose Monitoring Suppl (XOR.MOTORSTOUCH ULTRA SYSTEM) W/DEVICE KITIndications:Type 2 diabetes mellitus [...] A1c goal of less than 7.0% ([facility]) TEST BLOOD SUGAR before breakfast and supper [...] LOOSE STOOLS OR DIARRHEA 476 g 5 10/19/202 3 Active Calcium Citrate-Vitamin D 200-3.125 MG-MCG [...] as of this encounter (statuses as of 07/09/2023) Active Problems Problem Noted Date Diagnosed Date [...] as of this encounter (statuses as of 07/09/2023) Resolved Problems Problem Noted Date Diagnosed Date Resolved Date Constipation 09/10/2012 03/07/2018 Overview: ICD-10 update of inactive term ACTIVE CASE MANAGEMENT Keke Solis RN [phone] 01/25/2008 03/03/2010 Type 2 diabetes mellitus wit h hemoglobin A1c goal of less than 7.0% 10/30/2003 03/14/2009 Overview: Per Diabetes Taxonomy. ICD-10 update of inactive term Intellectual disability 10/30/200302/15 Overview: ICD-10 update of inactive term DM type 2, not at goal 10/30/200309/11 Psychotic disorder 10/30/2003 0 documented as of this encounter (statuses as of 07/09/2023) Immunizations Name Administration Dates Next Due COVID-19 mRNA, LNP-s, No Pre serve, 2-Dose Series (Moderna) 07/10/2020,06/12/2020 COVID-19, mRNA, LNP-s, PF, B ooster, 100mcg/0.5mg (Moderna) 09/18/2021,04/01/2021 Covid-19, Mrna, Lnp-s, Pf, B ivalent, 50 Mcg, IM, 12 yrs and above (Moderna) 03/11/2022 Hepatitis B, 20+ yrs 09/10/2014,03/08/2014,02/06 PPD 03/09/2022, 0,03/08/2019,03/04,02/14/2015,01/31/2013,01/25/2012 ,03/26/2010,09/21/2008 Pneumococcal Conjugate Vacci ne, 20-valent ([id number]) 03/09/2022 Pneumococcal Polysaccharide PPV23 (Pneumovax) 09/16/2005 Seasonal [...] as of this encounter Progress Notes * Cordelia Fleming Community [facility] Retoucher [employer]engraving - 07/09/2023 1:03 PM EST Telemedicine visit: No Community Health Retoucher Photoengraving (CLAUDE) documentation: [facility] week3 f/u call per [employer] is still low, although has been out and about a couple times this week. No new cold or flu symptoms No congestion Appetite is good Not back to baseline Confirmed contact info for CM documented in this encounter Plan of Treatment Upcoming Encounters Date Type Department Care Team (Late st Contact Info) Description 07/14/2023 3:00 PM EST Office Visit [facility] [address] [address] Ann-Marie Delmy Analilia, CHRIS [address] [place] [address] 09/09/2023 11:20 AM EDT Office Visit [facility] [address] [address] Ann-Marie August Analilia, CHRIS [address] [address] 02/15/2024 8:40 AM EDT Office Visit [facility] [address] [place] [address] Ann-Marie Delmy Analilia, CHRIS [address] [address] Health Maintenance Due Date Last Done Comments [...] D LEVEL ONCE IN A LIFETIME-USE SMARTSET# [id number] Completed 10/23/2022, 07/23/2022 Influenza Vaccine (FLU shot) Completed , 02/04/2022, 01/21/2021, Additional history exists GARDASIL-HPV IMMUNIZATION SERIES Aged Out No longer eligible based on patient's age to complete this topic MENINGOCOCCAL (MENACTRA/MENVEO) Aged Out No longer eligible based on patient's age to complete this topic documented as of this encounter Medical Devices Not on filedocumented as of this encounter Care Teams Ingot Passer Relationship Specialty Start Date End Date Dheeraj III, Vitor E, MD [address] [facility], [place] [id number] PCP - General Family Medicine 07/20/18 documented as of this encounter
--- OUTSIDE RECORDS SUMMARY | 2023-08-15 08:30 | External Medical Summary ---
Author Name Unknown Address Unknown Organization K01:LABORATORY [facility] - [address] [facility] [address] Laboratory Report Ordering Provider Test Date Status 07/14/2023 16:58:55 Final Observation Date Value Abnormality Reference (Units ) Status Lactic Acid 07/14/2023 16:58:55 1.2 0.4-2.0 (mmol/L) Final Performing Location LAB[facility]ORY [facility] - [address] [facility] [address]
--- OUTSIDE RECORDS SUMMARY | 2023-08-15 08:30 | External Medical Summary | Summary of Care ---
Author Name Unknown Organization [facility] Address [address] [place] [address] Phone [phone] Care Team Providers Care Timber Killer Name Role Phone Dheeraj NORWOOD MD, Vitor Baird Primary Care Provider [phone] Encounter Details Date Type Department Care Team (Late st Contact Info) Description 06/29/2023 9:45 AM EST Scheduled Telephone Care Coordination and Integration [address] [place] [address] Radha Cummings, Community Health Licensing Engineer [address], [place] [phone] Allergies Active Allergy Reactions Criticality Noted Date Comments Aspirin 08/05/2016 Depakote Er Unknown 09/12/2007 Salicylates Unknown 10/30/2003 aspirin documented as of this encounter (statuses as of 06/29/2023) Medications Medication Sig Dispensed Refills Start Date End Date Status LEVETIRACETAM 250 MG PO TABS 1 tab twwice daily 0 Active Blood Glucose Monitoring Suppl (Aito TechnologiesUCH ULTRA SYSTEM) W/DEVICE KITIndications:Type 2 diabetes mellitus [...] hemoglobin A1c goal of less than 7.0% ([facility]) TEST BLOOD SUGAR before breakfast and [...] as of this encounter (statuses as of 06/29/2023) Active Problems Problem Noted Date Diagnosed Date [...] as of this encounter (statuses as of 06/29/2023) Resolved Problems Problem Noted Date Diagnosed Date Resolved Date Constipation 09/10/2012 03/07/2018 Overview: ICD-10 update of inactive term ACTIVE CASE MANAGEMENT Keke Solis RN [phone] 01/25/2008 03/03/2010 Type 2 diabetes mellitus wit h hemoglobin A1c goal of less than 7.0% 10/30/2003 03/14/2009 Overview: Per Diabetes Taxonomy. ICD-10 update of inactive term Intellectual disability 10/30/200302/15 Overview: ICD-10 update of inactive term DM type 2, not at goal 10/30/200309/11 Psychotic disorder 10/30/2003 0 documented as of this encounter (statuses as of 06/29/2023) Immunizations Name Administration Dates Next Due COVID-19 mRNA, LNP-s, No Pre serve, 2-Dose Series (Moderna) 07/10/2020,06/12/2020 COVID-19, mRNA, LNP-s, PF, B ooster, 100mcg/0.5mg (Moderna) 09/18/2021,04/01/2021 Covid-19, Mrna, Lnp-s, Pf, B ivalent, 50 Mcg, IM, 12 yrs and above (Moderna) 03/11/2022 Hepatitis B, 20+ yrs 09/10/2014,03/08/2014,02/06 PPD 03/09/2022, 0,03/08/2019,03/04,02/14/2015,01/31/2013,01/25/2012 ,03/26/2010,09/21/2008 Pneumococcal Conjugate Vacci ne, 20-valent ([id number]) 03/09/2022 Pneumococcal Polysaccharide PPV23 (Pneumovax) 09/16/2005 Seasonal [...] Description 07/08/2023 11:00 AM EST Office Visit [facility] [place] [address] [place] [address] Delmy Jacobsen PA-C [address] [address] 09/09/2023 11:20 AM EDT Office Visit [facility] [place] [address] [place] [address] [address] Delmy Jacobsen PA-C [address] [address] 02/15/2024 8:40 AM EDT Office Visit [facility] [employer] [facility] [place] [address] Delmy Jacobsen PA-C [address] [place] [address] [address] Health Maintenance Due Date Last Done Comments [...] D LEVEL ONCE IN A LIFETIME-USE SMARTSET# [id number] Completed 10/23/2022, 07/23/2022 Influenza Vaccine (FLU shot) Completed , 02/04/2022, 01/21/2021, Additional history exists GARDASIL-HPV IMMUNIZATION SERIES Aged Out No longer eligible based on patient's age to complete this topic MENINGOCOCCAL (MENACTRA/MENVEO) Aged Out No longer eligible based on patient's age to complete this topic documented as of this encounter Medical Devices Not on filedocumented as of this encounter Care Teams Timber Killer Relationship Specialty Start Date End Date Vitor Esqueda III, MD [address] [place] [address] PCP - General Family Medicine 07/20/18 documented as of this encounter
--- OUTSIDE RECORDS SUMMARY | 2023-08-15 08:30 | External Medical Summary ---
Author Name Unknown Address Unknown Organization K01:LABORATORY [facility] - [address] [facility] [address] Laboratory Report Ordering Provider Test Date Status FREDA REINA 07/14/2023 16:58:55 Final Observation Date Value Abnormality Reference (Units ) Status SYNC LEUKOCYTES IN BLOOD BY AUTOMATED COUNT 07/14/2023 16:58:55 7.86 4.00-10.80 (K/uL) Final Segs 07/14/2023 16:58:55 70.9 40.0-75.0 (%) Final Lymphs % 07/14/2023 16:58:55 20.1 18.0-42.0 (%) Final Monos 07/14/2023 16:58:55 8.3 1.0-11.0 (%) Final Eosinophils 07/14/2023 16:58:55 0.0 0.0-6.0 (%) Final Basos 07/14/2023 16:58:55 0.4 0.0-2.0 (%) Final Immature Granulocyte, Percent 07/14/2023 16:58:55 0.3 0.0-2.0 (%) Final Absolute Segs 07/14/2023 16:58:55 5.58 1.80-7.70 (K/uL) Final Lymphs, absolute 07/14/2023 16:58:55 1.58 1.00-4.80 (K/ul) Final Monos, Abs 07/14/2023 16:58:55 0.65 0.00-1.10 (K/uL) Final Eos, Abs 07/14/2023 16:58:55 0.00 0.00-0.70 (K/uL) Final Basos, Abs 07/14/2023 16:58:55 0.03 0.00-0.20 (K/uL) Final Immature Granulocytes, Number 07/14/2023 16:58:55 0.02 0.00-0.20 (K/uL) Final Performing Location LABORATORY [facility] - [address] [facility] [address]
--- OUTSIDE RECORDS SUMMARY | 2023-08-15 08:30 | External Medical Summary ---
Author Name Unknown Address Unknown Organization K01:LABORATORY [facility] - [address] [facility] [facility] [address] Laboratory Report Ordering Provider Test Date Status 07/14/2023 16:58:55 Final Observation Date Value Abnormality Reference (Units ) Status HbA1C 07/14/2023 16:58:55 5.8 Above high normal 4. 0-5.6 (%) Final The use of HbA1c to monitor glycemic status is based on normal hemoglobin and HbA composition. This test should not be used in patients with abnormal hemoglobin that affects the half life of the red blood cell or the in vivo glycation rates. Glucose, estimated average 07/14/2023 16:58:55 120 <126 (mg/dL) Final Performing Location [facility] [address] [facility] [address]
--- OUTSIDE RECORDS SUMMARY | 2023-08-15 08:30 | External Medical Summary ---
Author Name Unknown Address Unknown Organization K01:LABORATORY [facility] - [address] [facility] [address] Laboratory Report Ordering Provider Test Date Status FREDA REINA 07/14/2023 16:58:55 Final Observation Date Value Abnormality Reference (Units ) Status WBC, Total 07/14/2023 16:58:55 7.86 4.00-10.80 (K/uL) Final RBC 07/14/2023 16:58:55 4.69 3.85-5.15 (M/uL) Final Hemoglobin 07/14/2023 16:58:55 15.1 12.0-15.3 (g/dL) Final HCT 07/14/2023 16:58:55 45.9 Above high normal 36.0-45.2 (%) Final MCV 07/14/2023 16:58:55 97.9 81.5-97.5 (fL) Final MCH 07/14/2023 16:58:55 32.2 27.0-34.0 (pg) Final MCHC 07/14/2023 16:58:55 32.9 32.0-36.0 (g/dL) Final RDW 07/14/2023 16:58:55 15.6 11.5-15.5 (%) Final Platelets 07/14/2023 16:58:55 206 140-400 (K/uL) Final MPV 07/14/2023 16:58:55 11.6 6.6-11.1 (fL) Final Nucleated erythrocytes/100 leukocytes [Ratio] in Blood by Automated count 07/14/2023 16:58:55 0 <=0 (/100 WBCs) Final Performing Location LAB[facility]ORY [facility] - [address] [facility] [place] [place] [address]
--- OUTSIDE RECORDS SUMMARY | 2023-08-15 08:30 | External Medical Summary | Summary of Care ---
Author Name Unknown Organization [facility] Address [address] [place] [address] Phone [phone] Care Team Providers Care Business Technology Teacher Name Role Phone Dheeraj NORWOOD MD, Vitor Baird Primary Care Provider [phone] Reason for Visit * Reason Onset Date Comments Med Request 04/15/2023 Encounter Details Date Type Department Care Team (Late st Contact Info) Description 04/15/2023 Telephone Family Practice [facility] [address] [place] [address] Vitor Esqueda III, MD [address] [place] [address] Med Request Allergies Active Allergy Reactions Criticality Noted Date Comments Aspirin 08/05/2016 Depakote Er Unknown 09/12/2007 Salicylates Unknown 10/30/2003 aspirin documented as of this encounter (statuses as of 07/01/2023) Medications Medication Sig Dispensed Refills Start Date End Date Status LEVETIRACETAM 250 MG PO TABS 1 tab twwice daily 0 Active Blood Glucose Monitoring Suppl ([employer]ove ULTRA SYSTEM) W/DEVICE KITIndications:Type 2 diabetes mellitus with hemoglobin A1c goal of less than 7.0% ([facility]) Use as directed 4 times a day as needed for Hyperglycemia (high sugar) or Hypoglycemia (low sugar). f E11.9 1 Kit 0 017 Active MEDICAL INSTRUCTIONSIndications :Type 2 diabetes mellitus with hemoglobin A1c goal of less than 7.0% ([facility]) Check glucose daily before supper. May skip [...] by mouth in the morning. 30 Tablet 023 Active OneTouch Ultra In Vitro Strip (Glucose Blood)Indications:Type 2 diabetes mellitus with hemoglobin A1c goal of less than 7.0% ([facility]) TEST BLOOD SUGAR before breakfast and supper [...] twice DAILY FOR DM 200 Each 1 Active metFORMIN HCl ER 500 MG Oral Tablet Extended Release 24 Hour (Glucophage XR) TAKE 2 TABLETS (1000MG) BY MOUTH TWICE DAILY FOR DIABETES TO BE BUBBLE PACKED. 124 Tablet 11 023 Active Atorvastatin Calcium 40 MG Oral Tablet (Lipitor)Indications:Pu re hypercholesterolemia TAKE 1 TABLET BY MOUTH AT BEDTIME (DX: FOR CHOLESTEROL) 28 Tablet 5 023 2022 Discontinued Glimepiride 2 MG Oral Tablet (Amaryl)Indications:Typ e 2 diabetes mellitus with hemoglobin A1c goal of less than 7.0% ([facility]) TAKE ONE TABLET BY MOUTH ONCE DAILY WITH THE FIRST MAIN MEAL OF THE DAY FOR DIABETES, ALSO GIVE 1/2 TAB IF SUGAR > 300 28 Tablet 5 023 2022 Discontinued Empagliflozin 25 MG Oral Tablet (Jardiance) Take 1 Tablet by mouth in the morning. 90 Tablet 2 023 2023 Discontinued(R efill) Docusate Sodium 100 MG Oral Capsule (Colace)Indications:Con stipation, unspecified constipation type TAKE 1 CAPSULE BY MOUTH TWICE DAILY (DX: CONSTIPATION) 2 Capsule 023 2022 Discontinued Super B Complex/Vitamin C Oral Tablet Take 1 Tablet by mouth in the morning. 30 Tablet 0 023 2023 Discontinued metFORMIN HCl ER 500 MG Oral Tablet Extended Release 24 Hour (Glucophage XR) TAKE 2 TABLETS (1000MG) BY MOUTH TWICE DAILY FOR DIABETES 120 Tablet 11 023 2022 Discontinued(R efill) documented as of this encounter (statuses as [...] term ACTIVE CASE MANAGEMENT Keke Solis RN [phone] 01/25/2008 03/03/2010 Type 2 diabetes mellitus wit [...] 0,03/08/2019,03/04,02/14/2015,01/31/2013,01/25/2012 ,03/26/2010,09/21/2008 Pneumococcal Conjugate Vacci ne, 20-valent ([id number]) 03/09/2022 Pneumococcal Polysaccharide PPV23 (Pneumovax) 09/16/2005 Seasonal [...] encounter Miscellaneous Notes * Telephone Encounter - Adalgisa Angel RN - 04/15/2023 1:47 PM EST Pt needs metformin script for April for 31 days to be bubble packed. documented in this encounter Plan of Treatment Upcoming Encounters Date Type Department Care Team (Late st Contact Info) Description 07/01/2023 2:30 PM EST Scheduled Telephone Care Coordination and Integration [address] [place] [address] Rosalinda Delgado, Community Health Global Marketing Specialist [address] [place] [address] 07/08/2023 11:00 AM EST Office Visit [facility] 200 [facility] [place] [address] Ann-Marie Delmy Analilia, PACorby [address] [place] [address] 09/09/2023 11:20 AM EDT Office Visit [facility] 200 [facility] [place] [address] Ann-Marie Delmy Analilia, PACorby [address] [place] [address] 02/15/2024 8:40 AM EDT Office Visit [facility] [address] [facility] [place] [address] Delmy Jacobsen, PADomingaC [address] [place] [address] Health Maintenance Due Date Last Done Comments [...] D LEVEL ONCE IN A LIFETIME-USE SMARTSET# [id number] Completed 10/23/2022, 07/23/2022 Influenza Vaccine (FLU shot) Completed , 02/04/2022, 01/21/2021, Additional history exists GARDASIL-HPV IMMUNIZATION SERIES Aged Out No longer eligible based on patient's age to complete this topic MENINGOCOCCAL (MENACTRA/MENVEO) Aged Out No longer eligible based on patient's age to complete this topic documented as of this encounter Medical Devices Not on filedocumented as of this encounter Care Teams Business Technology Teacher Relationship Specialty Start Date End Date Vitor Esqueda III, MD 200 [place] [address] PCP - General Family Medicine 07/20/18 documented as of this encounter
--- OUTSIDE RECORDS SUMMARY | 2023-08-15 08:30 | External Medical Summary | Summary of Care ---
Author Name Unknown Organization [facility] Address [address] [place] [address] Phone [phone] Care Team Providers Care Economic History Teacher Name Role Phone Dheeraj NORWOOD MD, Vitor Baird Primary Care Provider [phone] Reason for Visit * Reason Onset Date Comments Health Maintenance 07/14/2023 Encounter Details Date Type Department Care Team (Late st Contact Info) Description 07/14/2023 Telephone Family Practice [facility] [address] [place] [address] Vitor Esqueda III, MD [address] [place] [address] Health Maintenance Allergies Active Allergy Reactions Criticality Noted Date Comments Aspirin 08/05/2016 Depakote Er Unknown 09/12/2007 Salicylates Unknown 10/30/2003 aspirin documented as of this encounter (statuses as of 07/14/2023) Medications Medication Sig Dispensed Refills Start Date End Date Status LEVETIRACETAM 250 MG PO TABS 1 tab twwice daily 0 Active Blood Glucose Monitoring Suppl ([employer] ULTRA SYSTEM) W/DEVICE KITIndications:Type 2 diabetes mellitus with hemoglobin A1c goal of less than 7.0% ([facility]) Use as directed 4 times a day as needed for Hyperglycemia (high sugar) or Hypoglycemia (low sugar). f E11.9 1 Kit 0 7 Active MEDICAL INSTRUCTIONSIndications: Type 2 diabetes mellitus with hemoglobin A1c goal of less than 7.0% ([facility]) Check glucose daily before supper. May [...] hemoglobin A1c goal of less than 7.0% ([facility]) TEST BLOOD SUGAR before breakfast and [...] term ACTIVE CASE MANAGEMENT Keke Solis RN [phone] 01/25/2008 03/03/2010 Type 2 diabetes mellitus wit [...] 0,03/08/2019,03/04,02/14/2015,01/31/2013,01/25/2012 ,03/26/2010,09/21/2008 Pneumococcal Conjugate Vacci ne, 20-valent ([id number]) 03/09/2022 Pneumococcal Polysaccharide PPV23 (Pneumovax) 09/16/2005 Seasonal [...] encounter Miscellaneous Notes * Telephone Encounter - Hallie Sharma HORACIO - 07/14/2023 1:41 PM EST Care Gaps Comprehensive Care Outreach Last Office/Telemedicine Visit: 06/23/2023 (in office), Visit date not found (telemedicine) Next Office Visit: 07/14/2023 Hemoglobin AIC Results: Lab Results Component Value Date/Time HEMOGLOBIN A1C - [facility] 6.1 (H) 02/24/2023 12:51 PM HEMOGLOBIN A1C - [facility] 6.4 (H) 05/26/2022 03:57 PM HEMOGLOBIN A1C - [facility] 6.3 (H) 02/26/2022 11:16 AM HEMOGLOBIN A1C - [facility] 5.8 (H) 04/22/2020 09:29 AM HEMOGLOBIN A1C - [facility] 5.6 10/20/2019 11:27 AM HEMOGLOBIN A1C - [facility] 5.5 02/06/2019 11:21 AM BP Readings from Last 1 Encounters: 06/23/23 98/60 Reviewed Health Maintenance below: Health Maintenance Topic Date Due Diabetic Eye Exam 07/30/2022 COVID-19 Vaccine ( season) 2023 Depression Screening 03/09/2023 *BISPHONATE OR OTHER ACCEPTABLE MEDICATION NEEDED FOR OSTEOPOROSIS (REFER TO SMARTSET #1146) Never done Cervical Cancer Screening 06/04/2023 Pcp today Care Gap Outreach Action Taken: Outreach not indicated documented in this encounter Plan of Treatment Upcoming Encounters Date Type Department Care Team (Late st Contact Info) Description 07/14/2023 3:00 PM EST Office Visit [facility] [place] [address] [place] [address] [address] Delmy Jacobsen PA-C [address] [address] 09/09/2023 11:20 AM EDT [facility] [place] [address] [address] Delmy Jacobsen PA-C [address] [place] [address] [address] 02/15/2024 8:40 AM EDT [facility] [place] [address] [place] [address] Delmy Jacobsen PA-C [address] [place] [address] Health Maintenance Due Date Last Done Comments [...] D LEVEL ONCE IN A LIFETIME-USE SMARTSET# [id number] Completed 10/23/2022, 07/23/2022 Influenza Vaccine (FLU shot) Completed , 02/04/2022, 01/21/2021, Additional history exists GARDASIL-HPV IMMUNIZATION SERIES Aged Out No longer eligible based on patient's age to complete this topic MENINGOCOCCAL (MENACTRA/MENVEO) Aged Out No longer eligible based on patient's age to complete this topic documented as of this encounter Medical Devices Not on filedocumented as of this encounter Care Teams Economic History Teacher Relationship Specialty Start Date End Date iVtor Esqueda III, MD 200 [place] [address] PCP - General Family Medicine 07/20/18 documented as of this encounter
--- OUTSIDE RECORDS SUMMARY | 2023-08-15 08:30 | External Medical Summary ---
Author Name Unknown Address Unknown Organization K01:LABORATORY [place] [address] Laboratory Report Ordering Provider Test Date Status 07/14/2023 15:17:00 Final Observation Date Value Abnormality Reference (Units ) Status Human papilloma virus E6+E7 mRNA [Presence] in Cervix by BRODY with probe detection 07/14/2023 15:17:00 Negative Not Applicable Final No high/intermediate-risk Hu man Papillomavirus (HPV E6/E7 messenger RNA) detected by nucleic acid amplification.

This assay looks for high/intermediate risk Human Papillomavirus (HPV E6/E7 messenger RNA) by nucleic acid amplification. This assay includes the qualitative detection of HPV types 16,18,31,33,35,39,45,51,52,56,58,59,66 and 68 from cervical specimens.
This assay has been FDA cleared for Thin prep collection vials.
This assay has not been approved for use as a primary screening test for HPV and should be tested in conjunction with a PAP screen.
If collected utilizing a Surepath vial, the collection and specimen preparation of this test was developed, and its performance characteristics determined by [employer]. It has not been cleared or approved by the U.S. Food and Drug Administration (FDA). The FDA has determined that such clearance or approval is not necessary.
This assay has been performed at [facility], [address] [place] [address], [place]. [address]. Performing Location LABORATORY [address] [address]
--- OUTSIDE RECORDS SUMMARY | 2023-08-15 08:31 | External Medical Summary ---
Author Name Unknown Address Unknown Organization [id number]:[facility] [address] [place] [address] Laboratory Report Ordering Provider Test Date Status FREDA REINA 06/23/2023 13:06:48 Final Observation Date Value Abnormality Reference (Units ) Status SYNC LEUKOCYTES IN BLOOD BY AUTOMATED COUNT 06/23/2023 13:06:48 9.11 4.00-10.80 (K/uL) Final Segs 06/23/2023 13:06:48 75.3 Above high normal 40.0-75.0 (%) Final Lymphs % 06/23/2023 13:06:48 14.3 Below low normal 18.0-42.0 (%) Final Monos 06/23/2023 13:06:48 10.0 1.0-11.0 (%) Final Eosinophils 06/23/2023 13:06:48 0.0 0.0-6.0 (%) Final Basos 06/23/2023 13:06:48 0.4 0.0-2.0 (%) Final Absolute Segs 06/23/2023 13:06:48 6.86 1.80-7.70 (K/uL) Final Lymphs, absolute 06/23/2023 13:06:48 1.30 1.00-4.80 (K/ul) Final Monos, Abs 06/23/2023 13:06:48 0.91 0.00-1.10 (K/uL) Final Eos, Abs 06/23/2023 13:06:48 0.00 0.00-0.70 (K/uL) Final Basos, Abs 06/23/2023 13:06:48 0.04 0.00-0.20 (K/uL) Final Performing Location [facility] [address] [place] [address]
--- OUTSIDE RECORDS SUMMARY | 2023-08-15 08:31 | External Medical Summary ---
Author Name Unknown Address Unknown Organization [id number]:[facility] [address] [place] [address] Laboratory Report Ordering Provider Test Date Status FREDA REINA 06/23/2023 13:06:48 Final Observation Date Value Abnormality Reference (Units ) Status WBC, Total 06/23/2023 13:06:48 9.11 4.00-10.8 0 (K/uL) Final RBC 06/23/2023 13:06:48 4.40 3.85-5.15 (M/uL) Final Hemoglobin 06/23/2023 13:06:48 13.9 12.0-15.3 (g/dL) Final HCT 06/23/2023 13:06:48 41.9 36.0-45.2 (%) Final MCV 06/23/2023 13:06:48 95.2 81.5-97.5 (fL) Final MCH 06/23/2023 13:06:48 31.6 27.0-34.0 (pg) Final MCHC 06/23/2023 13:06:48 33.2 32.0-36.0 (g/dL) Final RDW 06/23/2023 13:06:48 16.3 11.5-15.5 (%) Final Platelets 06/23/2023 13:06:48 233 140-400 (K /uL) Final MPV 06/23/2023 13:06:48 11.2 6.6-11.1 ( fL) Final Performing Location [facility] [place] [address]
--- NOTE | 2023-08-15 08:50 | Emergency Department Note ---
Impression & Plan Altered mental status, Elevated lactic acid level, Gastric distention, Lethargy, Leukocytosis, Abdominal distension ED Provider Note NAME: ORLANDO LESLIE AGE: 63 SEX: F : 1960 ARRIVES VIA: Ambulance INFORMANT: [Patient][staff, nursing] ED PROVIDER(S): [Carlos Oneill MD] CHIEF COMPLAINT: Altered mental state HISTORY OF PRESENT ILLNESS: The patient is a 63-year-old female who is part of the [employer]. Yesterday, she slid off the bed which was unusual but seemed okay afterwards. She did not suffer any injury. She slept all night and they did note some coughing overnight. This morning, the patient was very sleepy and somnolent and was not able to walk on her own. She required a wheelchair. She cannot stay awake. Because of her presentation and altered mental state, she was brought to the hospital for evaluation. Currently, the patient can provide no further history to the story. She is quite somnolent. Of note, blood sugar was somewhat high today in the upper 200s. As per the staff, the patient did have her medications for her diabetes changed recently because of persistent recurrent lactic acidosis. PMHx/PSHx/Social Hx: See Below PHYSICAL EXAM: GENERAL: Patient is in no acute distress. HEENT: No acute trauma, normocephalic atraumatic, mucous membranes dry, no nasal congestion. NECK: No stridor, no adenopathy, no meningismus, trachea is midline. LUNGS: Clear to auscultation bilaterally when listening anterior, no respiratory distress. No wheezing. HEART: Subtle systolic murmur, mildly tachycardic with a regular rhythm. ABDOMEN: Significantly distended with tympany to percussion. No pain though with palpation. EXTREMITIES: No cyanosis, full range of motion of all the joints without pain or difficulty. NEUROLOGIC: Quite somnolent, awakes to loud voice or tactile stimulation, no acute motor or sensory deficits, no focal weakness. SKIN: No jaundice, no diaphoresis. Rectal: No rectal mass felt. Stool noted that is quite soft. Stool is brown in color. DIFFERENTIAL DIAGNOSIS: Bacteremia or sepsis, abdominal obstruction, pneumonia, UTI, urinary retention, viral illness, dehydration, electrolyte imbalance, among others. EMERGENCY DEPARTMENT PROCEDURES: MEDICAL DECISION MAKING: There is a mild leukocytosis, this would be consistent potentially with infection. There was a normal hemoglobin and platelet count. No coagulopathy. VBG did not show acidosis or CO2 retention. Renal panel testing did not show renal failure. Sugar was high initially at 330. Lactic acid level was elevated at over 2, consistent with potential infection versus some dehydration. There was no concerning liver enzyme elevation. ECG showed a sinus tachycardia, no ischemia or dysrhythmia. Cardiac enzyme testing x 1 is not consistent with acute cardiac injury. Urinalysis does not show infection. Respiratory bio fire was negative. Chest film did not show any focal pneumonia but there was significant gastric distention. Brain CT showed no acute bleed or mass effect. Abdominal and pelvis CT shows gastric distention and potential gastric outlet obstruction. There was significant colonic dilatation with constipation present. On exam, the patient appeared dehydrated and was quite somnolent. Her abdomen was distended. The patient received IV saline for hydration. She was given IV cefepime as empiric antibiotic coverage. She received IV insulin for the higher sugar value. The blood sugar has improved with treatment here in the ED. An NG tube was placed after discussion was made with general surgery. This was placed to help with gastric decompression. I am concerned for aspiration given the cough noted the last night, the gastric distention and now her sudden change in mental status. I do think she requires a hospital stay, further care and workup. I did speak with case management, the on-call hospitalist has been consulted. Prior/Outside records/notes reviewed: Today's EMS notes describing her presentation and transport to this hospital. ECG per my interpretation: Indication was possible sepsis. The ECG shows a sinus tachycardia with a rate of 109. There is no ST elevation, no PVCs. The QTc is 447. Continuous Cardiac Monitoring per my interpretation: An order was placed for continuous cardiac monitoring. The monitor shows a rate of 108 with sinus tachycardia. Imaging/x-ray results per my interpretation: Chest x-ray shows significant gastric distention with elevation of the left hemidiaphragm. There was no obvious focal infiltrate. Repeat chest x-ray after NG tube placement showed the tube to be within the stomach. Chronic Medical/Social conditions affecting care: Mental disability. Care/Management discussed with: General surgery-Dr. Nehemiah Russo, case management and the on-call hospitalist. Level of care consideration(s): After review of the information above and other included data: --I believe the patient requires escalation of care to admission Critical Care Note: I have personally spent 51 minutes of critical care time in the direct management of this patient. This includes bedside care, interpretation of diagnostic studies, and testing, discussion with consultants, patient, and family members, and other required patient management activities. This 51 minutes is in excess of all separately billable procedures. DISPOSITION: Admission Past Med/Surg History Medical History Seizure disorder GERD (gastroesophageal reflux disease) Acute metabolic encephalopathy Head injury Fall Acute alteration in mental status Elevated lactic acid level Weakness AMS (altered mental status) DMII (diabetes mellitus, type 2) HSV (herpes simplex virus) anogenital infection Complex partial seizure Depression with anxiety Heart murmur Onychomycosis Hypertension Schizophrenia Surgical History History of colonoscopy Family History Mother Diabetes Other Seizures Social History Smoking Status: Unknown if ever smoked Preferred Language: Lao Communication Ability: Impaired Communication Ability Comment: Intellectual Disability Visual Impairment: No Limitations Hearing Ability: Normal Polymer Specialist Required: No Beliefs That Will Affect Care: None marital status: Single Current Living Situation: Other Current Living Situation Comment: longterm current occupational status: disabled Feels Safe at Home: Yes Assistive Devices: Walker and Wheelchair Allergies Allergies Allergy/AdvReac Type Severity Reaction Status Date / Time divalproex sodium Allergy Unknown Unknown Verified 06/07/23 12:54 [From Depakote] salicylates Allergy Unknown Unknown Verified 06/07/23 12:54 valproic acid Allergy Unknown Unknown Verified 06/07/23 12:54 aspirin AdvReac Severe STOMACH Verified 06/07/23 12:54 ULCER BLEEDING Home Meds Home Medications Medication Instructions Recorded Confirmed atorvastatin 40 mg tablet 40 mg PO HS 07/17/18 08/15/23 glimepiride 2 mg tablet 2 mg PO BID 07/17/18 08/15/23 multivit-iron 18 mg-folic acid 400 1 tab PO QAM 07/17/18 08/15/23 mcg-calcium 500 mg-minerals tablet (Women's One Daily) vitamin B complex 1 tab PO QAM 08/25/18 08/15/23 fluticasone propionate 50 2 sprays intranasal QPM 02/15/19 08/15/23 mcg/actuation nasal spray,suspension ammonium lactate 12 % topical cream 1 applic topical QAM 05/21/19 08/15/23 docusate sodium 100 mg capsule 100 mg PO BID 05/21/19 08/15/23 (Colace) triamcinolone acetonide 0.1 % 1 applic topical BID PRN Rash 07/10/21 08/15/23 topical cream clozapine 200 mg tablet 600 mg PO DAILY@199910/31/21 08/15/23 valacyclovir 500 mg tablet 500 mg PO DAILY 02/18/22 08/15/23 glimepiride 1 mg tablet 1 mg PO DIRECTED PRN BSG >300. 10/14/22 08/15/23 polyethylene glycol 3350 17 gram 17 g PO BID 10/19/22 08/15/23 oral powder packet (Miralax) calcium citrate 315 mg-vitamin D3 2 tab PO QAM ##0 02/11/23 08/15/23 5 mcg (200 unit) tablet (Calcium Citrate + D) acetaminophen 500 mg tablet 1,000 mg PO Q8H PRN Pain 06/07/23 08/15/23 (Tylenol Extra Strength) dextromethorphan-guaifenesin 30 1 - 2 tab PO Q12H PRN Nasal 06/07/23 08/15/23 mg-600 mg tablet extended Congestion [id number] hr (Mucinex DM) diphenhydramine HCl 25 mg tablet 25 mg PO .Q4-6 PRN .allergy 06/07/23 08/15/23 (Benadryl Allergy) famotidine 40 mg tablet 40 mg PO HS 06/07/23 08/15/23 nut.tx.gluc.intol,lac-free,soy 1 ea PO BID 06/07/23 08/15/23 (Glucerna oral liquid) linagliptin 5 mg tablet (Tradjenta) 5 mg PO DAILY 08/15/23 08/15/23 Previous Rx's Medication Instructions Recorded levetiracetam 250 mg tablet 250 mg PO BID 90 days #180 tabs 10/15/22 (Keppra) phenytoin sodium extended 100 mg 200 mg (2 x 100 mg) PO BID 90 days 12/14/22 capsule (Dilantin Extended) #360 caps albuterol sulfate 90 mcg/actuation 2 puff inhalation QIDR PRN 03/03/23 aerosol inhaler (Ventolin HFA) shortness of breath or wheezing #6.7 grams dextromethorphan-guaifenesin 5 10 ml PO Q6H PRN cough #118 mL 03/03/23 mg-100 mg/5 mL oral liquid (Robitussin Cough-Chest Congestion DM) Results & Data (ED) Vital Signs Vital Signs - 24 hr 08/15/23 08:31 08/15/23 08:37 08/15/23 09:10 Temperature 36.6 C Temperature Source Oral Pulse Rate 108 H 100 H 106 H Pulse Rate from SpO2 Sensor 106 H Respiratory Rate 20 15 Respiratory Effort / Characteristics Non-Labored Respiratory Depth Normal Blood Pressure 112/66 128/70 Blood Pressure Mean 81 89 Pulse Oximetry 93 98 Oxygen Delivery Method Room Air Sepsis Recent Fever Within 48 Hours No Sepsis New/Unexplained Change in Mental Status Yes Sepsis Action Taken by Nursing Physician Notified 08/15/23 09:30 08/15/23 10:00 08/15/23 10:31 Temperature Temperature Source Pulse Rate 103 H 104 H Pulse Rate from SpO2 Sensor 103 H 105 H Respiratory Rate 18 16 Respiratory Effort / Characteristics Respiratory Depth Blood Pressure 138/69 Blood Pressure Mean 92 Pulse Oximetry 96 95 92 Oxygen Delivery Method Room Air Sepsis Recent Fever Within 48 Hours Sepsis New/Unexplained Change in Mental Status Sepsis Action Taken by Nursing 08/15/23 10:31 08/15/23 11:00 08/15/23 11:30 Temperature Temperature Source Pulse Rate 107 H 104 H Pulse Rate from SpO2 Sensor 107 H 104 H Respiratory Rate 15 15 Respiratory Effort / Characteristics Respiratory Depth Blood Pressure 127/72 123/64 Blood Pressure Mean 90 83 Pulse Oximetry 92 98 94 Oxygen Delivery Method Room Air Sepsis Recent Fever Within 48 Hours Sepsis New/Unexplained Change in Mental Status Sepsis Action Taken by Retirement Medications Current Medication List: was personally reviewed by me Laboratory Data Attestation: I reviewed the patient's lab results. 08/15/23 08:38 08/15/23 08:38 Lab Results 08/15/23 08/15/23 08/15/23 Range/Units 08:38 09:36 09:47 WBC 13.89 H (4.8-10.8) K/ul RBC 4.34 (4.20-5.40) M/uL Hgb 13.4 (12.0-16.0) g/dl Hct 40.9 (37.0-47.0) % MCV 94.2 (80.0-100.0) fL MCH 30.9 (25.0-34.0) pg MCHC 32.8 (32.0-36.0) g/dL RDW Std Deviation 48.5 H (36.4-46.3) fL RDW Coeff of Liliana 13.9 (11.5-14.5) % Plt Count 151 (130-400) K/uL MPV 11.8 (9.4-12.4) fL Immature Gran % (Auto) 0.4 % Neut % (Auto) 88.9 % Lymph % (Auto) 3.7 % Rogers % (Auto) 6.9 % Eos % (Auto) 0.0 % Baso % (Auto) 0.1 % Neut # (Auto) 12.34 H (1.40-6.50) K/uL Lymph # (Auto) 0.51 L (1.20-3.40) K/uL Rogers # (Auto) 0.96 H (0.11-0.59) K/uL Eos # (Auto) 0.00 (0.00-0.50) K/uL Baso # (Auto) 0.02 (0.00-0.20) K/uL Immature Gran # (Auto) 0.06 (0.01-0.20) K/uL PT 11.0 (9.0-12.0) Seconds INR 1.0 (0.9-1.1) APTT 23 (21-31) Seconds PTT Ratio 0.8 VBG pH 7.37 (7.36-7.41) VBG pCO2 48 (38-50) mmHg VBG pO2 37 mmHg VBG HCO3 28 mmol/L VBG O2 Saturation 64.9 % VBG Base Excess 1.7 mEq/L Sodium 135 L (136-145) mmol/L Potassium 4.3 (3.5-5.1) mmol/L Chloride 101 (98-107) mmol/L Carbon Dioxide 27 (21-32) mmol/L Anion Gap 7 (3-11) BUN 33 H (6-23) mg/dl Creatinine 0.71 (0.6-1.2) mg/dl Est Cr Clr Drug Dosing 77.9 ml/min Est GFR ( Amer) 106.5 ml/min Est GFR (Non-Af Amer) 91.9 ml/min BUN/Creatinine Ratio 46.5 H (10-20) Glucose 330 H* (70-99(Fasting)) mg/dl Lactate 2.5 H* (0.4-2.0) mmol/L Calcium 8.9 (8.6-10.3) mg/dl Magnesium 1.9 (1.7-2.4) mg/dl Total Bilirubin 0.5 (0.2-1.0) mg/dl Direct Bilirubin 0.1 (0-0.2) mg/dl AST 26 (13-39) U/L ALT 44 (7-52) U/L Alkaline Phosphatase 103 (34-104) U/L Troponin I High Sens 2.8 (0-14) pg/ml Total Protein 6.5 (6.0-8.3) gm/dl Albumin 4.1 (3.4-5.0) gm/dl Procalcitonin 0.03 (0-0.5) ng/ml Urine Color Urine Appearance (Clear) Urine pH (4.5-7.5) Ur Specific [place] (1.000-1.030) Urine Protein (Negative) Urine Glucose (UA) (Negative) Urine Ketones (Negative) Urine Blood (Negative) Urine Nitrite (Negative) Urine Bilirubin (Negative) Urine Urobilinogen (Negative) Ur Leukocyte Esterase (Negative) Adenovirus (PCR) Not Detected (NotDetected) B. pertussis DNA (PCR) Not Detected (NotDetected) B.parapertussis DNA PCR Not Detected (NotDetected) C. pneumoniae DNA (PCR) Not Detected (NotDetected) Coronavirus OC43 (PCR) Not Detected (NotDetected) Coronavirus HKU1 (PCR) Not Detected (NotDetected) Coronavirus 229E (PCR) Not Detected (NotDetected) SARS-CoV-2 (PCR) Not Detected (NotDetected) Coronavirus NL63 (PCR) Not Detected (NotDetected) Human Metapneumovir PCR Not Detected (NotDetected) Influenza Type A (PCR) Not Detected (NotDetected) Influenza Type B (PCR) Not Detected (NotDetected) M. pneumoniae (PCR) Not Detected (NotDetected) Parainfluenza 1 (PCR) Not Detected (NotDetected) Parainfluenza 2 (PCR) Not Detected (NotDetected) Parainfluenza 3 (PCR) Not Detected (NotDetected) Parainfluenza 4 (PCR) Not Detected (NotDetected) RSV (PCR) Not Detected (NotDetected) Entero/Rhino (PCR) Not Detected (NotDetected) 08/15/23 08/15/23 Range/Units 10:08 11:20 WBC (4.8-10.8) K/ul RBC (4.20-5.40) M/uL Hgb (12.0-16.0) g/dl Hct (37.0-47.0) % MCV (80.0-100.0) fL MCH (25.0-34.0) pg MCHC (32.0-36.0) g/dL RDW Std Deviation (36.4-46.3) fL RDW Coeff of Liliana (11.5-14.5) % Plt Count (130-400) K/uL MPV (9.4-12.4) fL Immature Gran % (Auto) % Neut % (Auto) % Lymph % (Auto) % Rogers % (Auto) % Eos % (Auto) % Baso % (Auto) % Neut # (Auto) (1.40-6.50) K/uL Lymph # (Auto) (1.20-3.40) K/uL Rogers # (Auto) (0.11-0.59) K/uL Eos # (Auto) (0.00-0.50) K/uL Baso # (Auto) (0.00-0.20) K/uL Immature Gran # (Auto) (0.01-0.20) K/uL PT (9.0-12.0) Seconds INR (0.9-1.1) APTT (21-31) Seconds PTT Ratio VBG pH (7.36-7.41) VBG pCO2 (38-50) mmHg VBG pO2 mmHg VBG HCO3 mmol/L VBG O2 Saturation % VBG Base Excess mEq/L Sodium (136-145) mmol/L Potassium (3.5-5.1) mmol/L Chloride (98-107) mmol/L Carbon Dioxide (21-32) mmol/L Anion Gap (3-11) BUN (6-23) mg/dl Creatinine (0.6-1.2) mg/dl Est Cr Clr Drug Dosing ml/min Est GFR ( Amer) ml/min Est GFR (Non-Af Amer) ml/min BUN/Creatinine Ratio (10-20) Glucose (70-99(Fasting)) mg/dl Lactate 1.5 (0.4-2.0) mmol/L Calcium (8.6-10.3) mg/dl Magnesium (1.7-2.4) mg/dl Total Bilirubin (0.2-1.0) mg/dl Direct Bilirubin (0-0.2) mg/dl AST (13-39) U/L ALT (7-52) U/L Alkaline Phosphatase (34-104) U/L Troponin I High Sens (0-14) pg/ml Total Protein (6.0-8.3) gm/dl Albumin (3.4-5.0) gm/dl Procalcitonin (0-0.5) ng/ml Urine Color Yellow Urine Appearance Clear (Clear) Urine pH 7.0 (4.5-7.5) Ur Specific [place] 1.028 (1.000-1.030) Urine Protein Negative (Negative) Urine Glucose (UA) 3+ H (Negative) Urine Ketones 1+ H (Negative) Urine Blood Negative (Negative) Urine Nitrite Negative (Negative) Urine Bilirubin Negative (Negative) Urine Urobilinogen Negative (Negative) Ur Leukocyte Esterase Negative (Negative) Adenovirus (PCR) (NotDetected) B. pertussis DNA (PCR) (NotDetected) B.parapertussis DNA PCR (NotDetected) C. pneumoniae DNA (PCR) (NotDetected) Coronavirus OC43 (PCR) (NotDetected) Coronavirus HKU1 (PCR) (NotDetected) Coronavirus 229E (PCR) (NotDetected) SARS-CoV-2 (PCR) (NotDetected) Coronavirus NL63 (PCR) (NotDetected) Human Metapneumovir PCR (NotDetected) Influenza Type A (PCR) (NotDetected) Influenza Type B (PCR) (NotDetected) M. pneumoniae (PCR) (NotDetected) Parainfluenza 1 (PCR) (NotDetected) Parainfluenza 2 (PCR) (NotDetected) Parainfluenza 3 (PCR) (NotDetected) Parainfluenza 4 (PCR) (NotDetected) RSV (PCR) (NotDetected) Entero/Rhino (PCR) (NotDetected) Administered Medications Sodium Chloride (Nss) 1,000 mls @ 200 mls/hr IV .Q5H DELMI Stop: 08/15/23 17:59 Last Admin: 08/15/23 14:51 Dose: 200 mls/hr Documented By: DEMETRIO Pantoprazole Sodium 40 mg/ (Syringe) 10 mls @ 5 mls/min IV BID DELMI Stop: 09/14/23 14:14 Last Admin: 08/15/23 14:51 Dose: 5 mls/min Documented By: DEMETRIO Ampicillin Sodium/Sulbactam Sodium 3,000 mg/ Sodium Chloride 100 mls @ 200 mls/hr IV Q6H DELMI Stop: 08/22/23 14:14 Last Admin: 08/15/23 14:51 Dose: 200 mls/hr Documented By: DEMETRIO Discontinued Medications Sodium Chloride (Nss) 1,000 mls @ 999 mls/hr IV .Q1H1M DELMI Stop: 08/15/23 10:00 Last Infusion: 08/15/23 10:45 Dose: Infused Documented By: Admin: 08/15/23 09:38 Dose: 999 mls/hr Documented By: ADRIANA Cefepime HCl (Maxipime) 2,000 mg in 20 mls @ 5 mls/min IV NOW STA; Protocol Stop: 08/15/23 08:49 Last Admin: 08/15/23 09:50 Dose: 5 mls/min Documented By: ADRIANA Insulin Human Regular (Novolin-R Insulin Per Unit Charge) 6 units IV NOW STA Stop: 08/15/23 09:27 Last Admin: 08/15/23 09:40 Dose: 6 units Documented By: ADRIANA Co-signed By: DEANGELO Imaging Data Radiologist's Impression: Abdomen/Pelvis CT 08/15/23 08:46 CT SCAN OF THE ABDOMEN AND PELVIS WITHOUT IV CONTRAST CLINICAL HISTORY: Change in mental status. Lethargy. Abdominal distention. COMPARISON STUDY: Abdominal CT dated 09/29/2022. TECHNIQUE: CT scan of the abdomen and pelvis is performed from the lung bases to the proximal femora. Images are reviewed in the axial, sagittal, and coronal planes. IV contrast was not administered for this examination. Note that the examination is significantly suboptimal without oral and IV contrast. The examination is also degraded by motion artifact as well as streak artifact from the arms which could not be elevated above the abdomen. A dose lowering technique was utilized adhering to the principles of ALARA. CT DOSE: 1280.84 mGy.cm FINDINGS: Lung bases: The heart is normal in size and without pericardial effusion. There is airspace consolidation at the left lung base. Atelectasis is noted at the right lung base. No pleural effusion is identified. The distal the stomach is distended, mildly thick-walled, and filled with fluid. Liver: The unenhanced liver is normal in size, contour, and attenuation. There is no intrahepatic biliary ductal dilatation. Gallbladder: Unremarkable. Spleen: Normal in size and attenuation. Pancreas: Unremarkable. Adrenal glands: Thickening of the adrenal glands is similar to previous. Kidneys: The unenhanced kidneys are normal in size and without hydronephrosis. There are no renal calculi identified. There is no evidence of contour deforming renal mass lesion. Abdominal vasculature: The abdominal aorta is normal in course and caliber noting scattered foci of atherosclerotic calcification. Bowel: The stomach is markedly distended and fluid-filled. There is focal narrowing of the duodenum as it passes anterior to the aorta. The small bowel loops are normal in caliber. The colon is distended and there is severe constipation. The right colon measures up to 11 cm in diameter. The appendix is normal as imaged. Peritoneum: There is no intraperitoneal free air or abdominal ascites. Lymphadenopathy: None. Pelvic viscera: The bladder is mildly distended but otherwise normal in appearance. The uterus and adnexa are normal as imaged. Skeletal structures: The skeletal structures are osteopenic. There is a mild chronic compression deformity of L1. No lytic or blastic lesions are seen. Chronic deformity and postsurgical changes noted in the right proximal femur. There is a subacute to chronic appearing fracture through the greater trochanter of the left proximal femur. There are chronic/healed bilateral rib fractures. IMPRESSION: 1. Significantly suboptimal examination without oral and IV contrast. There is also significant streak and motion artifact. 2. The stomach is markedly distended and fluid-filled. There is focal narrowing of the duodenum as it crosses anterior to the abdominal aorta, and the small bowel loops are normal in caliber. This could represent a gastric outlet obstruction or possibly a duodenal obstruction such as with SMA syndrome. This is similar in appearance to the 09/29/2022 examination. 3. There is colonic distention and severe constipation. This has also been seen previously. 4. The distal esophagus is distended, mildly thick walled, and filled with fluid. Note that this may place the patient at risk for aspiration. 5. Airspace consolidation at the left lung base could represent atelectasis versus pneumonia/aspiration pneumonitis. Correlate clinically. 6. Additional findings as above. ACT 112: Negative or not required by law. Electronically signed by: Carlos Savage M.D. 08/15/2023 9:25 AM Chest X-Ray 08/15/23 08:46 SINGLE VIEW CHEST CLINICAL HISTORY: Sepsis. FINDINGS: An AP, portable, upright chest radiograph is compared to study dated 06/11/2023. The cardiomediastinal silhouette is unremarkable. There is marked gaseous distention of the stomach with elevation of the left hemidiaphragm. Scarring/atelectasis is seen at both lung bases. Chronic interstitial thickening is previous. No airspace consolidation or large pleural effusion is identified. No pneumothorax is seen. The skeletal structures are osteopenic. The bony thorax is grossly intact. IMPRESSION: 1. No acute cardiopulmonary abnormality is identified. 2. There is marked gaseous distention of the stomach with elevation of the left hemidiaphragm. ACT 112: Negative or not required by law. Electronically signed by: Carlos Savage M.D. 08/15/2023 9:[address] 08/15/23 08:46 CT SCAN OF THE BRAIN WITHOUT IV CONTRAST CLINICAL HISTORY: Change in mental status. COMPARISON STUDY: Prior CT scans of the brain, most recently dated 06/11/2023 TECHNIQUE: Unenhanced axial CT scan of the brain is performed from the vertex to the skull base. A dose lowering technique was utilized adhering to the principles of ALARA. FINDINGS: Brain parenchyma: There is age-related involutional change noting mild subcortical and periventricular microangiopathic disease. There is no hemorrhage, mass effect, or evidence of acute territorial ischemia by CT criteria. Fernandez-white matter differentiation is preserved. No extra-axial fluid collection is seen. Ventricles, sulci, cisterns: Prominent secondary to involutional change. Ventriculomegaly is similar to previous. Intracranial vasculature: There is atherosclerotic calcification of the cavernous carotid arteries. Calvarium: Unremarkable. Sinuses and mastoids: The visualized paranasal sinuses are clear. The mastoid air cells are well pneumatized. Orbits: The bony orbits are grossly intact. IMPRESSION: 1. There is no hemorrhage, mass effect, or evidence of acute territorial ischemia by CT criteria. 2. Ventriculomegaly is unchanged. ACT 112: Negative or not required by law.\ Electronically signed by: Carlos Savage M.D. 08/15/2023 9:11 AM Chest X-Ray 08/15/23 10:30 SINGLE VIEW CHEST CLINICAL HISTORY: Enteric tube placement. FINDINGS: An AP, portable, upright chest radiograph is compared to study performed earlier the same day 08/15/2023. An enteric tube has been placed. The tip projects below the diaphragm over the mid to distal stomach. The cardiomediastinal silhouette is unremarkable. There is persistent gaseous distention of the stomach with elevation of the left hemidiaphragm. Scarring/atelectasis is seen at both lung bases. Chronic interstitial thickening is previous. No airspace consolidation or large pleural effusion is identified. No pneumothorax is seen. The skeletal structures are osteopenic. The bony thorax is grossly intact. IMPRESSION: 1. Enteric tube placement as above. 2. No acute cardiopulmonary abnormality is identified. 3. There is persistent gaseous distention of the stomach. ACT 112: Negative or not required by law. Electronically signed by: Carlos Savage M.D. 08/15/2023 11:08 AM Discharge Plan Visit Data Chief Complaint: Lethargic Stated Complaint: LETHARGIC ED Provider: Carlos Oneill Discharge Problem: Altered mental status, Elevated lactic acid level, Gastric distention, Lethargy, Leukocytosis, Abdominal distension Patient Disposition: Admitted As Inpatient Condition: Serious Discharge Instructions Interventions: ED Discharge Assessment Last Done: 08/15/23 13:16 Discharge Problem: Altered mental status Qualifiers: Altered mental status type: somnolence Qualified Code(s): R40.0 - Somnolence Leukocytosis Qualifiers: Leukocytosis type: unspecified Qualified Code(s): D72.829 - Elevated white blood cell count, unspecified
--- NOTE | 2023-08-15 09:01 | XRay Report ---
SINGLE VIEW CHEST CLINICAL HISTORY: Sepsis. FINDINGS: An AP, portable, upright chest radiograph is compared to study dated 06/11/2023. The cardiom ediastinal silhouette is unremarkable. There is marked gaseous distention of the stomach with elevati on of the left hemidiaphragm. Scarring/atelectasis is seen at both lung bases. Chronic interstitial t hickening is previous. No airspace consolidation or large pleural effusion is identified. No pneumoth orax is seen. The skeletal structures are osteopenic. The bony thorax is grossly intact. IMPRESSION: 1. No acute cardiopulmonary abnormality is identified. 2. There is marked gaseous distention of the stomach with elevation of the left hemidiaphragm. ACT 112: Negative or not required by law. Electronically signed by: Carlos Savage M.D. 08/15/2023 9:00 AM
[2023-08-15 09:10] LABS: Basophils # (auto) 0.02 K/uL (0.00-0.20); Basophils % (auto) 0.1 %; Hematocrit (blood only) 40.9 % (37.0-47.0); Hemoglobin 13.4 g/dl (12.0-16.0); Immature Granulocytes # (auto) 0.06 K/uL (0.01-0.20); Immature Granulocytes % (auto) 0.4 %; Lymphocytes # (auto) 0.51 K/uL (1.20-3.40); Lymphocytes % (auto) 3.7 %; Mean Corpuscular Hemoglobin 30.9 pg (25.0-34.0); Mean Corpuscular Hgb Conc 32.8 g/dL (32.0-36.0); Mean Corpuscular Volume 94.2 fL (80.0-100.0); Mean Platelet Volume 11.8 fL (9.4-12.4); Monocytes # (auto) 0.96 K/uL (0.11-0.59); Monocytes % (auto) 6.9 %; Neutrophils # (auto) 12.34 K/uL (1.40-6.50); Neutrophils % (auto) 88.9 %; Platelet Count 151 K/uL (130-400); RDW Coefficient of Variation 13.9 % (11.5-14.5); RDW Standard Deviation 48.5 fL (36.4-46.3); Red Blood Count 4.34 M/uL (4.20-5.40); White Blood Count 13.89 K/ul (4.8-10.8)
--- NOTE | 2023-08-15 09:14 | CT Scan Report ---
CT SCAN OF THE BRAIN WITHOUT IV CONTRAST CLINICAL HISTORY: Change in mental status. COMPARISON STUDY: Prior CT scans of the brain, most recently dated 06/11/2023 TECHNIQUE: Unenhanced axial CT scan of the brain is performed from the vertex to the skull base. A do se lowering technique was utilized adhering to the principles of ALARA. FINDINGS: Brain parenchyma: There is age-related involutional change noting mild subcortical and periventricula r microangiopathic disease. There is no hemorrhage, mass effect, or evidence of acute territorial isc hemia by CT criteria. Fernandez-white matter differentiation is preserved. No extra-axial fluid collection is seen. Ventricles, sulci, cisterns: Prominent secondary to involutional change. Ventriculomegaly is similar to previous. Intracranial vasculature: There is atherosclerotic calcification of the cavernous carotid arteries. Calvarium: Unremarkable. Sinuses and mastoids: The visualized paranasal sinuses are clear. The mastoid air cells are well pneu matized. Orbits: The bony orbits are grossly intact. IMPRESSION: 1. There is no hemorrhage, mass effect, or evidence of acute territorial ischemia by CT criteria. 2. Ventriculomegaly is unchanged. ACT 112: Negative or not required by law.\ Electronically signed by: Carlos Savage M.D. 08/15/2023 9:11 AM
[2023-08-15 09:17] LABS: Partial Thromboplastin Ratio 0.8; Partial Thromboplastin Time 23 Seconds (21-31)
--- NOTE | 2023-08-15 09:26 | CT Scan Report ---
CT SCAN OF THE ABDOMEN AND PELVIS WITHOUT IV CONTRAST CLINICAL HISTORY: Change in mental status. Lethargy. Abdominal distention. COMPARISON STUDY: Abdominal CT dated 09/29/2022. TECHNIQUE: CT scan of the abdomen and pelvis is performed from the lung bases to the proximal femora. Images are reviewed in the axial, sagittal, and coronal planes. IV contrast was not administered for this examination. Note that the examination is significantly suboptimal without oral and IV contrast . The examination is also degraded by motion artifact as well as streak artifact from the arms which could not be elevated above the abdomen. A dose lowering technique was utilized adhering to the [facility] DOSE: 1280.84 mGy.cm FINDINGS: Lung bases: The heart is normal in size and without pericardial effusion. There is airspace consolida tion at the left lung base. Atelectasis is noted at the right lung base. No pleural effusion is ident ified. The distal the stomach is distended, mildly thick-walled, and filled with fluid. Liver: The unenhanced liver is normal in size, contour, and attenuation. There is no intrahepatic vicky iary ductal dilatation. Gallbladder: Unremarkable. Spleen: Normal in size and attenuation. Pancreas: Unremarkable. Adrenal glands: Thickening of the adrenal glands is similar to previous. Kidneys: The unenhanced kidneys are normal in size and without hydronephrosis. There are no renal edilson culi identified. There is no evidence of contour deforming renal mass lesion. Abdominal vasculature: The abdominal aorta is normal in course and caliber noting scattered foci of a therosclerotic calcification. Bowel: The stomach is markedly distended and fluid-filled. There is focal narrowing of the duodenum a s it passes anterior to the aorta. The small bowel loops are normal in caliber. The colon is distende d and there is severe constipation. The right colon measures up to 11 cm in diameter. The appendix is normal as imaged. Peritoneum: There is no intraperitoneal free air or abdominal ascites. Lymphadenopathy: None. Pelvic viscera: The bladder is mildly distended but otherwise normal in appearance. The uterus and ad nexa are normal as imaged. Skeletal structures: The skeletal structures are osteopenic. There is a mild chronic compression defo rmity of L1. No lytic or blastic lesions are seen. Chronic deformity and postsurgical changes noted i n the right proximal femur. There is a subacute to chronic appearing fracture through the greater tro chanter of the left proximal femur. There are chronic/healed bilateral rib fractures. IMPRESSION: 1. Significantly suboptimal examination without oral and IV contrast. There is also significant strea k and motion artifact. 2. The stomach is markedly distended and fluid-filled. There is focal narrowing of the duodenum as it crosses anterior to the abdominal aorta, and the small bowel loops are normal in caliber. This could represent a gastric outlet obstruction or possibly a duodenal obstruction such as with SMA syndrome. This is similar in appearance to the 09/29/2022 examination. 3. There is colonic distention and severe constipation. This has also been seen previously. 4. The distal esophagus is distended, mildly thick walled, and filled with fluid. Note that this may place the patient at risk for aspiration. 5. Airspace consolidation at the left lung base could represent atelectasis versus pneumonia/aspirati on pneumonitis. Correlate clinically. 6. Additional findings as above. ACT 112: Negative or not required by law. Electronically signed by: Carlos Savage M.D. 08/15/2023 9:25 AM
[2023-08-15 09:29] LABS: Albumin Level 4.1 gm/dl (3.4-5.0); BUN Creatinine Ratio 46.5 (10-20); Bilirubin Direct 0.1 mg/dl (0-0.2); Bilirubin,Total 0.5 mg/dl (0.2-1.0); Calcium 8.9 mg/dl (8.6-10.3); Creatinine Clr Calc Pharmacy 77.9 ml/min; Est GFR (African American) 106.5 ml/min; Est GFR (Non-African American) 91.9 ml/min; Magnesium 1.9 mg/dl (1.7-2.4); Potassium 4.3 mmol/L (3.5-5.1); Total Protein 6.5 gm/dl (6.0-8.3); Troponin I High Sensitivity 2.8 pg/ml (0-14)
[2023-08-15] MEDS: SODIUM CHLORIDE 0.9% 1,000 ML IV SCH ×3 (09:38→19:53)
[2023-08-15] MEDS: NovoLIN-R INSULIN PER UNIT CHARGE IV STA (09:40)
[2023-08-15 09:46] LABS: Base Excess VBG 1.7 mEq/L; HCO3 VBG 28 mmol/L; Oxygen Saturation VBG 64.9 %; PCO2 VBG 48 mmHg (38-50); PO2 VBG 37 mmHg; pH VBG 7.37 (7.36-7.41)
[2023-08-15] MEDS: CEFEPIME 2,000 MG/20 ML VIAL IV STA (09:50)
[2023-08-15 10:20] LABS: Appearance Urine Clear (Clear); Bilirubin Urine Negative (Negative); Blood Urine Negative (Negative); Color Urine Yellow; Glucose Urine UA 3+ (Negative); Ketones Urine 1+ (Negative); Leukocyte Esterase Urine Negative (Negative); Nitrite Urine Negative (Negative); Protein Urine Negative (Negative); Specific Gravity Urine 1.028 (1.000-1.030); Urobilinogen Urine Negative (Negative)
[2023-08-15 11:02] LABS: Adenovirus PCR Not Detected (NotDetected); Bordetella parapertussis PCR Not Detected (NotDetected); Bordetella pertussis PCR Not Detected (NotDetected); Chlamydia pneumoniae PCR Not Detected (NotDetected); Coronavirus 229E PCR Not Detected (NotDetected); Coronavirus CoV-2 (COVID19)PCR Not Detected (NotDetected); Coronavirus HKU1 PCR Not Detected (NotDetected); Coronavirus NL63 PCR Not Detected (NotDetected); Coronavirus OC43PCR Not Detected (NotDetected); Human Metapneumovirus PCR Not Detected (NotDetected); Influenza A PCR Not Detected (NotDetected); Influenza B PCR Not Detected (NotDetected); Mycoplasma pneumoniae PCR Not Detected (NotDetected); Parainfluenza Virus 1 PCR Not Detected (NotDetected); Parainfluenza Virus 2 PCR Not Detected (NotDetected); Parainfluenza Virus 3 PCR Not Detected (NotDetected); Parainfluenza Virus 4 PCR Not Detected (NotDetected); Respiratory Syncytial VirusPCR Not Detected (NotDetected); Rhinovirus/Enterovirus PCR Not Detected (NotDetected)
--- NOTE | 2023-08-15 11:09 | XRay Report ---
SINGLE VIEW CHEST CLINICAL HISTORY: Enteric tube placement. FINDINGS: An AP, portable, upright chest radiograph is compared to study performed earlier the same d ay 08/15/2023. An enteric tube has been placed. The tip projects below the diaphragm over the mid to d istal stomach. The cardiomediastinal silhouette is unremarkable. There is persistent gaseous distenti on of the stomach with elevation of the left hemidiaphragm. Scarring/atelectasis is seen at both lung bases. Chronic interstitial thickening is previous. No airspace consolidation or large pleural effus ion is identified. No pneumothorax is seen. The skeletal structures are osteopenic. The bony thorax i s grossly intact. IMPRESSION: 1. Enteric tube placement as above. 2. No acute cardiopulmonary abnormality is identified. 3. There is persistent gaseous distention of the stomach. ACT 112: Negative or not required by law. Electronically signed by: Carlos Savage M.D. 08/15/2023 11:08 AM
--- NOTE | 2023-08-15 11:15 | History & Physical Report ---
Date of Service August 15, 2023 Assessment & Plan (1) Metabolic encephalopathy: Plan: This is a 63 y/o female from [employer] with hx seizures, ambulatory dysfunction, cognitive dysfunction, schizophrenia w/ auditory hallucinations, DM2, and other history as outlined below who was brought to the ED today with lethargy and somnolence. Work-up in the ED shows marked gastric distention with fluid in the esophagus putting the patient at risk for aspiration. CT shows left lung base infiltrate representing possible aspiration pneumonitis. Also noted is marked colonic distention and severe constipation with a right colon diameter of up to 11 cm. UA negative for infection, resp panel negative. Mild leukocytosis. Pt does meet sepsis criteria on initial presentation and has received one liter of NSS thus far. ED placed NGT with return of dark green liquid. Initially elevated lactate has improved with IVF. - Admit to med telemetry - Continue NGT, consult surgery for additional recommendations - Continue broad spectrum antibiotics but will change to Unasyn due to suspected aspiration - Hold oral meds other than anti-epileptics, which will change to IV formulation - Give additional 1L of NSS at 200 ml/hr then maintenance IVF while NPO - Labs in the AM - CBC, BMP (2) Sepsis: Plan: Received 1L of IVF in the ED with improvement in lactate. Ordered second liter at 200 ml/hr then will give maintenance fluids since pt NPO Broad-spectrum antibiotics as above - cultures pending (3) Aspiration pneumonia: Plan: Starting Unasyn Suspect related to gastric distention and fluid in esophagus (4) Gastric distention: Plan: Imaging with question of GOO/possible duodenal obstruction NGT placed in the ED - keep pt NPO for now Consult general surgery for additional recommendations (5) DMII (diabetes mellitus, type 2): Plan: Chronic, recent med changes as noted in the HPI. Holding oral medications at present. Insulin sliding scale A1c in AM, BSGs (6) Schizophrenia: Plan: Chronic, stable On clozapine chronically but currently on hold since pt NPO. Consider psych consult if unable to give via NGT within next 24-48 hrs to help with dosing. (7) Seizure disorder: Plan: Chronic, stable Discussed medications with pharmacy - will convert medications to IV while NPO. Consider checking phenytoin level in 2-3 days if still on IV instead of oral (8) Colon distention: Plan: Surgery consult as above Chronic issues with constipation - on stool softener and Miralax as outpatient. No evidence of impaction on rectal exam per ED provider. (9) Generalized weakness: Plan: Eventual PT/OT once clinically improving Fall precautions Plan Pt seen and reviewed with attending physician, Dr. Dao. Plan of care discussed and as outlined above. Updated pt's father by phone. Father requests to be the one kept updated as pt's mother is currently in rehab. DVT Prophylaxis: Lovenox Code Status: Full code Beatriz Wolfe PA-C History of Present Illness Chief Complaint: lethargy Primary Care Provider: Delmy Jacobsen PA-C This is a 63 y/o female from [employer] with hx seizures, ambulatory dysfunction, cognitive dysfunction, schizophrenia w/ auditory hallucinations, DM2, and other history as outlined below who was brought to the ED today with lethargy and somnolence. History from the patient was unobtainable so history obtained from pt's caregiver at bedside and her father by phone. Pt was in her usual state of health two days ago. Yesterday, she was found sitting on the floor having slid out of bed but could not recall how she fell. She was able to get herself up and get into the wheelchair, seemed okay the rest of the day. Last night, she went to bed around 8 pm and slept through the night until g etting up around 7 am today. Her caregivers did note that she was coughing at times last night, which was out of the ordinary for her. When she got up this morning, she required full assistance to get a shower due to weakness and was noted to be falling asleep even while showering, again which is unusual for her. She required a wheelchair to ambulate today and was not answering questions. Because of the change in mental status and somnolence, pt was brought to the ED for evaluation. Pt's caregiver notes ongoing issues with abdominal distention and large bowel movements. However, denies pt having any recent hard stools or observed straining. Her appetite has been at baseline. No vomiting, fevers noted. Her medications were recently adjusted with discontinuation of Jardiance and metformin due to lactic acidosis but addition of Tradjenta. Sugars have been running higher than usual since this change. Pt was admitted to [facility]: 05/17/2023-05/19/2023 for bronchitis, lactic acidosis, weakness, was empirically treated with doxycycline, MRI brain was negative for stroke. 06/07/2023-06/10/2023 for influenza A, generalized weakness, confusion was treated with Tamiflu and supportive care. 06/11/2023-06/16/2023 for ambulatory dysfunction/generalized weakness, work-up negative for acute cause, thought deconditioning secondary recent illness Allergies Allergy/AdvReac Type Severity Reaction Status Date / Time divalproex sodium Allergy Unknown Unknown Verified 06/07/23 12:54 [From Depakote] salicylates Allergy Unknown Unknown Verified 06/07/23 12:54 valproic acid Allergy Unknown Unknown Verified 06/07/23 12:54 aspirin AdvReac Severe STOMACH Verified 06/07/23 12:54 ULCER BLEEDING Home Medications Medication Instructions Recorded Confirmed Type atorvastatin 40 mg tablet 40 mg PO HS 07/17/18 08/15/23 History glimepiride 2 mg tablet 2 mg PO BID 07/17/18 08/15/23 History multivit-iron 18 mg-folic acid 400 1 tab PO QAM 07/17/18 08/15/23 History mcg-calcium 500 mg-minerals tablet (Women's One Daily) vitamin B complex 1 tab PO QAM 08/25/18 08/15/23 History fluticasone propionate 50 2 sprays intranasal QPM 02/15/19 08/15/23 History mcg/actuation nasal spray,suspension ammonium lactate 12 % topical cream 1 applic topical QAM 05/21/19 08/15/23 History docusate sodium 100 mg capsule 100 mg PO BID 05/21/19 08/15/23 History (Colace) triamcinolone acetonide 0.1 % 1 applic topical BID PRN Rash 07/10/21 08/15/23 History topical cream clozapine 200 mg tablet 600 mg PO DAILY@199910/31/21 08/15/23 History valacyclovir 500 mg tablet 500 mg PO DAILY 02/18/22 08/15/23 History glimepiride 1 mg tablet 1 mg PO DIRECTED PRN BSG >300. 10/14/22 08/15/23 History levetiracetam 250 mg tablet 250 mg PO BID 90 days #180 tabs 10/15/22 08/15/23 Rx (Keppra) polyethylene glycol 3350 17 gram 17 g PO BID 10/19/22 08/15/23 History oral powder packet (Miralax) phenytoin sodium extended 100 mg 200 mg (2 x 100 mg) PO BID 90 days 12/14/22 08/15/23 Rx capsule (Dilantin Extended) #360 caps calcium citrate 315 mg-vitamin D3 2 tab PO QAM ##0 02/11/23 08/15/23 History 5 mcg (200 unit) tablet (Calcium Citrate + D) albuterol sulfate 90 mcg/actuation 2 puff inhalation QIDR PRN 03/03/23 08/15/23 Rx aerosol inhaler (Ventolin HFA) shortness of breath or wheezing #6.7 grams dextromethorphan-guaifenesin 5 10 ml PO Q6H PRN cough #118 mL 03/03/23 08/15/23 Rx mg-100 mg/5 mL oral liquid (Robitussin Cough-Chest Congestion DM) acetaminophen 500 mg tablet 1,000 mg PO Q8H PRN Pain 06/07/23 08/15/23 History (Tylenol Extra Strength) dextromethorphan-guaifenesin 30 1 - 2 tab PO Q12H PRN Nasal 06/07/23 08/15/23 History mg-600 mg tablet extended Congestion pftbisp60 hr (Mucinex DM) diphenhydramine HCl 25 mg tablet 25 mg PO .Q4-6 PRN .allergy 06/07/23 08/15/23 History (Benadryl Allergy) famotidine 40 mg tablet 40 mg PO HS 06/07/23 08/15/23 History nut.tx.gluc.intol,lac-free,soy 1 ea PO BID 06/07/23 08/15/23 History (Glucerna oral liquid) linagliptin 5 mg tablet (Tradjenta) 5 mg PO DAILY 08/15/23 08/15/23 History Past Med/Surg History Medical History (Updated 08/15/23 @ 12:51 by Deanna Wolfe PA-C) Seizure disorder GERD (gastroesophageal reflux disease) Acute metabolic encephalopathy Head injury Fall Acute alteration in mental status Elevated lactic acid level Weakness AMS (altered mental status) DMII (diabetes mellitus, type 2) HSV (herpes simplex virus) anogenital infection Complex partial seizure Depression with anxiety Heart murmur Onychomycosis Hypertension Schizophrenia Surgical History History of colonoscopy Family History Mother Diabetes Other Seizures Social History Smoking Status: Unknown if ever smoked Preferred Language: Y[place] Communication Ability: Impaired Communication Ability Comment: Intellectual Disability Visual Impairment: No Limitations Hearing Ability: Normal Car Top Bolter Required: No Beliefs That Will Affect Care: None marital status: Single Current Living Situation: Other Current Living Situation Comment: longterm current occupational status: disabled Feels Safe at Home: Yes Assistive Devices: Walker and Wheelchair Review of Systems Review of Systems: Unobtainable due to cognitive status (and somnolence/lethargy) Physical Exam Physical Exam: General: somnolent but arousable, not answering questions but does arouse to name HEENT: no scleral icterus, +NGT in right nares with dark green drainage Neck: supple, trachea midline Heart: regular but tachycardic Lungs: diminished but poor inspiratory effort Abdomen: softly distended, +BS Extremities: distal pulses intact and equal, no pedal edema Skin: warm, dry, no jaundice Results & Data Results & Data Vital Signs (Past 12 Hours) Vital Signs Temp Pulse Resp BP Pulse Ox O2 Del Method 08/15/23 10:31 92 Room Air 08/15/23 10:31 92 Room Air 08/15/23 09:30 103 H 18 96 08/15/23 09:10 106 H 15 128/70 98 08/15/23 08:37 36.6 C 100 H 20 112/66 93 Room Air 08/15/23 08:31 108 H Laboratory Results Laboratory Results - last 24 hr 08/15/23 08/15/23 08/15/23 08:38 09:36 09:47 WBC 13.89 H RBC 4.34 Hgb 13.4 Hct 40.9 MCV 94.2 MCH 30.9 MCHC 32.8 RDW Std Deviation 48.5 H RDW Coeff of Liliana 13.9 Plt Count 151 MPV 11.8 Immature Gran % (Auto) 0.4 Neut % (Auto) 88.9 Lymph % (Auto) 3.7 [place] % (Auto) 6.9 Eos % (Auto) 0.0 Baso % (Auto) 0.1 Neut # (Auto) 12.34 H Lymph # (Auto) 0.51 L [place] # (Auto) 0.96 H Eos # (Auto) 0.00 Baso # (Auto) 0.02 Immature Gran # (Auto) 0.06 PT 11.0 INR 1.0 APTT 23 PTT Ratio 0.8 VBG pH 7.37 VBG pCO2 48 VBG pO2 37 VBG HCO3 28 VBG O2 Saturation 64.9 VBG Base Excess 1.7 Sodium 135 L Potassium 4.3 Chloride 101 Carbon Dioxide 27 Anion Gap 7 BUN 33 H Creatinine 0.71 Est Cr Clr Drug Dosing 77.9 Est GFR ( Amer) 106.5 Est GFR (Non-Af Amer) 91.9 BUN/Creatinine Ratio 46.5 H Glucose 330 H* Lactate 2.5 H* Calcium 8.9 Magnesium 1.9 Total Bilirubin 0.5 Direct Bilirubin 0.1 AST 26 ALT 44 Alkaline Phosphatase 103 Troponin I High Sens 2.8 Total Protein 6.5 Albumin 4.1 Procalcitonin 0.03 Urine Color Urine Appearance Urine pH Ur Specific [place] Urine Protein Urine Glucose (UA) Urine Ketones Urine Blood Urine Nitrite Urine Bilirubin Urine Urobilinogen Ur Leukocyte Esterase Adenovirus (PCR) Not Detected B. pertussis DNA (PCR) Not Detected B.parapertussis DNA PCR Not Detected C. pneumoniae DNA (PCR) Not Detected Coronavirus OC43 (PCR) Not Detected Coronavirus HKU1 (PCR) Not Detected Coronavirus 229E (PCR) Not Detected SARS-CoV-2 (PCR) Not Detected Coronavirus NL63 (PCR) Not Detected Human Metapneumovir PCR Not Detected Influenza Type A (PCR) Not Detected Influenza Type B (PCR) Not Detected M. pneumoniae (PCR) Not Detected Parainfluenza 1 (PCR) Not Detected Parainfluenza 2 (PCR) Not Detected Parainfluenza 3 (PCR) Not Detected Parainfluenza 4 (PCR) Not Detected RSV (PCR) Not Detected Entero/Rhino (PCR) Not Detected 08/15/23 10:08 WBC RBC Hgb Hct MCV MCH MCHC RDW Std Deviation RDW Coeff of Liliana Plt Count MPV Immature Gran % (Auto) Neut % (Auto) Lymph % (Auto) [place] % (Auto) Eos % (Auto) Baso % (Auto) Neut # (Auto) Lymph # (Auto) [place] # (Auto) Eos # (Auto) Baso # (Auto) Immature Gran # (Auto) PT INR APTT PTT Ratio VBG pH VBG pCO2 VBG pO2 VBG HCO3 VBG O2 Saturation VBG Base Excess Sodium Potassium Chloride Carbon Dioxide Anion Gap BUN Creatinine Est Cr Clr Drug Dosing Est GFR ( Amer) Est GFR (Non-Af Amer) BUN/Creatinine Ratio Glucose Lactate Calcium Magnesium Total Bilirubin Direct Bilirubin AST ALT Alkaline Phosphatase Troponin I High Sens Total Protein Albumin Procalcitonin Urine Color Yellow Urine Appearance Clear Urine pH 7.0 Ur Specific [place] 1.028 Urine Protein Negative Urine Glucose (UA) 3+ H Urine Ketones 1+ H Urine Blood Negative Urine Nitrite Negative Urine Bilirubin Negative Urine Urobilinogen Negative Ur Leukocyte Esterase Negative Adenovirus (PCR) B. pertussis DNA (PCR) B.parapertussis DNA PCR C. pneumoniae DNA (PCR) Coronavirus OC43 (PCR) Coronavirus HKU1 (PCR) Coronavirus 229E (PCR) SARS-CoV-2 (PCR) Coronavirus NL63 (PCR) Human Metapneumovir PCR Influenza Type A (PCR) Influenza Type B (PCR) M. pneumoniae (PCR) Parainfluenza 1 (PCR) Parainfluenza 2 (PCR) Parainfluenza 3 (PCR) Parainfluenza 4 (PCR) RSV (PCR) Entero/Rhino (PCR) Diagnostic Findings Abdomen/Pelvis CT 08/15/23 08:46 CT SCAN OF THE ABDOMEN AND PELVIS WITHOUT IV CONTRAST CLINICAL HISTORY: Change in mental status. Lethargy. Abdominal distention. COMPARISON STUDY: Abdominal CT dated 09/29/2022. TECHNIQUE: CT scan of the abdomen and pelvis is performed from the lung bases to the proximal femora. Images are reviewed in the axial, sagittal, and coronal planes. IV contrast was not administered for this examination. Note that the examination is significantly suboptimal without oral and IV contrast. The examination is also degraded by motion artifact as well as streak artifact from the arms which could not be elevated above the abdomen. A dose lowering techniq ue was utilized adhering to the principles of ALARA. CT DOSE: 1280.84 mGy.cm FINDINGS: Lung bases: The heart is normal in size and without pericardial effusion. There is airspace consolidation at the left lung base. Atelectasis is noted at the right lung base. No pleural effusion is identified. The distal the stomach is distended, mildly thick-walled, and filled with fluid. Liver: The unenhanced liver is normal in size, contour, and attenuation. There is no intrahepatic biliary ductal dilatation. Gallbladder: Unremarkable. Spleen: Normal in size and attenuation. Pancreas: Unremarkable. Adrenal glands: Thickening of the adrenal glands is similar to previous. Kidneys: The unenhanced kidneys are normal in size and without hydronephrosis. There are no renal calculi identified. There is no evidence of contour deforming renal mass lesion. Abdominal vasculature: The abdominal aorta is normal in course and caliber noting scattered foci of atherosclerotic calcification. Bowel: The stomach is markedly distended and fluid-filled. There is focal narrowing of the duodenum as it passes anterior to the aorta. The small bowel loops are normal in caliber. The colon is distended and there is severe constipation. The right colon measures up to 11 cm in diameter. The appendix is normal as imaged. Peritoneum: There is no intraperitoneal free air or abdominal ascites. Lymphadenopathy: None. Pelvic viscera: The bladder is mildly distended but otherwise normal in appearance. The uterus and adnexa are normal as imaged. Skeletal structures: The skeletal structures are osteopenic. There is a mild chronic compression deformity of L1. No lytic or blastic lesions are seen. Chronic deformity and postsurgical changes noted in the right proximal femur. There is a subacute to chronic appearing fracture through the greater trochanter of the left proximal femur. There are chronic/healed bilateral rib fractures. IMPRESSION: 1. Significantly suboptimal examination without oral and IV contrast. There is also significant streak and motion artifact. 2. The stomach is markedly distended and fluid-filled. There is focal narrowing of the duodenum as it crosses anterior to the abdominal aorta, and the small bowel loops are normal in caliber. This could represent a gastric outlet obstruction or possibly a duodenal obstruction such as with SMA syndrome. This is similar in appearance to the 09/29/2022 examination. 3. There is colonic distention and severe constipation. This has also been seen previously. 4. The distal esophagus is distended, mildly thick walled, and filled with fluid. Note that this may place the patient at risk for aspiration. 5. Airspace consolidation at the left lung base could represent atelectasis versus pneumonia/aspiration pneumonitis. Correlate clinically. 6. Additional findings as above. ACT 112: Negative or not required by law. Electronically signed by: Carlos Savage M.D. 08/15/2023 9:25 AM Chest X-Ray 08/15/23 08:46 SINGLE VIEW CHEST CLINICAL HISTORY: Sepsis. FINDINGS: An AP, portable, upright chest radiograph is compared to study dated 06/11/2023. The cardiomediastinal silhouette is unremarkable. There is marked gaseous distention of the stomach with elevation of the left hemidiaphragm. Scarring/atelectasis is seen at both lung bases. Chronic interstitial thickening is previous. No airspace consolidation or large pleural effusion is identified. No pneumothorax is seen. The skeletal structures are osteopenic. The bony thorax is grossly intact. IMPRESSION: 1. No acute cardiopulmonary abnormality is identified. 2. There is marked gaseous distention of the stomach with elevation of the left hemidiaphragm. ACT 112: Negative or not required by law. Electronically signed by: Carlos Savage M.D. 08/15/2023 9:[address] 08/15/23 08:46 CT SCAN OF THE BRAIN WITHOUT IV CONTRAST CLINICAL HISTORY: Change in mental status. COMPARISON STUDY: Prior CT scans of the brain, most recently dated 06/11/2023 TECHNIQUE: Unenhanced axial CT scan of the brain is performed from the vertex to the skull base. A dose lowering technique was utilized adhering to the principles of ALARA. FINDINGS: Brain parenchyma: There is age-related involutional change noting mild subcortical and periventricular microangiopathic disease. There is no hemorrhage, mass effect, or evidence of acute territorial ischemia by CT criteria. Fernandez-white matter differentiation is preserved. No extra-axial fluid collection is seen. Ventricles, sulci, cisterns: Prominent secondary to involutional change. Ventriculomegaly is similar to previous. Intracranial vasculature: There is atherosclerotic calcification of the cavernous carotid arteries. Calvarium: Unremarkable. Sinuses and mastoids: The visualized paranasal sinuses are clear. The mastoid air cells are well pneumatized. Orbits: The bony orbits are grossly intact. IMPRESSION: 1. There is no hemorrhage, mass effect, or evidence of acute territorial ischemia by CT criteria. 2. Ventriculomegaly is unchanged. ACT 112: Negative or not required by law.\ Electronically signed by: Carlos Savage M.D. 08/15/2023 9:11 AM Chest X-Ray 08/15/23 10:30 SINGLE VIEW CHEST CLINICAL HISTORY: Enteric tube placement. FINDINGS: An AP, portable, upright chest radiograph is compared to study performed earlier the same day 08/15/2023. An enteric tube has been placed. The tip projects below the diaphragm over the mid to distal stomach. The cardiomediastinal silhouette is unremarkable. There is persistent gaseous distention of the stomach with elevation of the left hemidiaphragm. Scarring/atelectasis is seen at both lung bases. Chronic interstitial thickening is previous. No airspace consolidation or large pleural effusion is identified. No pneumothorax is seen. The skeletal structures are osteopenic. The bony thorax is grossly intact. IMPRESSION: 1. Enteric tube placement as above. 2. No acute cardiopulmonary abnormality is identified. 3. There is persistent gaseous distention of the stomach. ACT 112: Negative or not required by law. Electronically signed by: Carlos Savage M.D. 08/15/2023 11:08 AM Medications Administered Discontinued Medications Sodium Chloride (Nss) 1,000 mls @ 999 mls/hr IV .Q1H1M DELMI Stop: 08/15/23 10:00 Last Admin: 08/15/23 09:38 Dose: 999 mls/hr Documented By: ADRIANA Cefepime HCl (Maxipime) 2,000 mg in 20 mls @ 5 mls/min IV NOW STA; Protocol Stop: 08/15/23 08:49 Last Admin: 08/15/23 09:50 Dose: 5 mls/min Documented By: ADRIANA Insulin Human Regular (Novolin-R Insulin Per Unit Charge) 6 units IV NOW STA Stop: 08/15/23 09:27 Last Admin: 08/15/23 09:40 Dose: 6 units Documented By: ADRIANA Co-signed By: DEANGELO Supervising Physician Co-Signing Physician Notes Attending addendum: The patient was seen and examined in medical telemetry unit She [facility] with a history of fall and noted to be very weak and somnolent after that Noted to have left lower lobe infiltration and massive dilatation of the stomach and lower end of the esophagus She has been feeling little better since admission following initial management On examination No apparent distress at rest Hemodynamically stable Chest-clear to auscultate bilaterally Heart-S1, S2 Abdomen-minimally distended, soft and bowel sound present Extremities-negative for any edema Her admission labs, EKG, medications and imaging studies reviewed Has significant gastric distention secondary to gastric outlet obstruction Dilatation of the lower end of the esophagus and possible aspiration pneumonia Presented with sepsis with change in mental status NG tube has been putting and she has been started on intravenous antibiotic Surgery consultation will be taken Agree with assessment and plan as outlined above by CHRIS Carrera DR (2) Sepsis Sepsis acute organ dysfunction status: unspecified Sepsis type: sepsis due to unspecified organism Qualified Code(s): A41.9 - Sepsis, unspecified organism (3) Aspiration pneumonia Aspiration pneumonia type: unspecified Laterality: left Lung location: lower lobe of lung Qualified Code(s): J69.0 - Pneumonitis due to inhalation of food and vomit (5) DMII (diabetes mellitus, type 2) Diabetes mellitus complication status: with other specified complication Diabetes mellitus shelter insulin use: without shelter use Qualified Code(s ): E11.69 - Type 2 diabetes mellitus with other specified complication (6) Schizophrenia Schizophrenia type: unspecified Qualified Code(s): F20.9 - Schizophrenia, unspecified
[2023-08-15] MEDS ORDERED: GLUCAGON FOR INJ 1 MG VIAL SQ PRN (11:53)
[2023-08-15] MEDS ORDERED: GLUCOSE 10 TAB/TUBE PO PRN (11:53)
[2023-08-15] MEDS ORDERED: DEXTROSE 50% 50 ML SYRINGE IV PRN (11:53)
[2023-08-15] MEDS ORDERED: GLUCOSE 40% GEL 15 GM TUBE PO PRN (11:53)
[2023-08-15] MEDS ORDERED: CARBOHYDRATES FOR HYPOGLYCEMIA PO PRN (11:53)
[2023-08-15] MEDS ORDERED: AMPICILLIN SOD/SULBACTAM SOD 3 GM VIAL IV SCH (14:00)
[2023-08-15] MEDS: UNASYN 3000MG / NS q6h IV SCH (14:51)
[2023-08-15] MEDS: PANTOprazole 40 MG in SYRINGE 0 ML IV SCH (14:51)
--- NOTE | 2023-08-15 15:46 | Surgery Consultation ---
Date of Consultation August 15, 2023 Assessment & Plan (1) Colon distention: (2) Gastric distention: Plan Patient being admitted to medicine to manage medical issues. Patient also noted with hyperglycemia. No acute surgical intervention. IVF Holcomb catheter insertion NGT insertion for gastric decompression. Connect to continuous low intermittent wall suction Strict I/O's Enema initiation Will follow up in the am. History of Present Illness Reason for Consultation: abdominal distention Attending Physician: Cierra Dao MD History of Present Illness This is a 63 y/o female from [place] with hx seizures, ambulatory dysfunction, cognitive dysfunction, schizophrenia w/ auditory hallucinations, DM2, and other history as outlined below who was brought to the ED today with lethargy and somnolence. Work-up in the ED shows marked gastric distention with fluid in the esophagus putting the patient at risk for aspiration. CT shows left lung base infiltrate representing possible aspiration pneumonitis. Also noted is marked colonic distention with severe constipation with a right colon diameter of up to 11 cm, severe stomach distention with questionable gastric outlet or duodenal obstruction questionably due to, for an example, an SMA compression. UA negative for infection, resp panel negative. Mild leukocytosis. Patient not giving a good history. Surgery was called due to marked abdominal distention and CT findings. Of note, a caregiver who was with the patient at presentation reports her abdomen gets this way at times but usually goes down after a BM. Allergies Allergy/AdvReac Type Severity Reaction Status Date / Time divalproex sodium Allergy Unknown Unknown Verified 06/07/23 12:54 [From Depakote] salicylates Allergy Unknown Unknown Verified 06/07/23 12:54 valproic acid Allergy Unknown Unknown Verified 06/07/23 12:54 aspirin AdvReac Severe STOMACH Verified 06/07/23 12:54 ULCER BLEEDING Home Medications Medication Instructions Recorded Confirmed Type atorvastatin 40 mg tablet 40 mg PO HS 07/17/18 08/15/23 History glimepiride 2 mg tablet 2 mg PO BID 07/17/18 08/15/23 History multivit-iron 18 mg-folic acid 400 1 tab PO QAM 07/17/18 08/15/23 History mcg-calcium 500 mg-minerals tablet (Women's One Daily) vitamin B complex 1 tab PO QAM 08/25/18 08/15/23 History fluticasone propionate 50 2 sprays intranasal QPM 02/15/19 08/15/23 History mcg/actuation nasal spray,suspension ammonium lactate 12 % topical cream 1 applic topical QAM 05/21/19 08/15/23 History docusate sodium 100 mg capsule 100 mg PO BID 05/21/19 08/15/23 History (Colace) triamcinolone acetonide 0.1 % 1 applic topical BID PRN Rash 07/10/21 08/15/23 History topical cream clozapine 200 mg tablet 600 mg PO DAILY@199910/31/21 08/15/23 History valacyclovir 500 mg tablet 500 mg PO DAILY 02/18/22 08/15/23 History glimepiride 1 mg tablet 1 mg PO DIRECTED PRN BSG >300. 10/14/22 08/15/23 History levetiracetam 250 mg tablet 250 mg PO BID 90 days #180 tabs 10/15/22 08/15/23 Rx (Keppra) polyethylene glycol 3350 17 gram 17 g PO BID 10/19/22 08/15/23 History oral powder packet (Miralax) phenytoin sodium extended 100 mg 200 mg (2 x 100 mg) PO BID 90 days 12/14/22 08/15/23 Rx capsule (Dilantin Extended) #360 caps calcium citrate 315 mg-vitamin D3 2 tab PO QAM ##0 02/11/23 08/15/23 History 5 mcg (200 unit) tablet (Calcium Citrate + D) albuterol sulfate 90 mcg/actuation 2 puff inhalation QIDR PRN 03/03/23 08/15/23 Rx aerosol inhaler (Ventolin HFA) shortness of breath or wheezing #6.7 grams dextromethorphan-guaifenesin 5 10 ml PO Q6H PRN cough #118 mL 03/03/23 08/15/23 Rx mg-100 mg/5 mL oral liquid (Robitussin Cough-Chest Congestion DM) acetaminophen 500 mg tablet 1,000 mg PO Q8H PRN Pain 06/07/23 08/15/23 History (Tylenol Extra Strength) dextromethorphan-guaifenesin 30 1 - 2 tab PO Q12H PRN Nasal 06/07/23 08/15/23 History mg-600 mg tablet extended Congestion dontuuc09 hr (Mucinex DM) diphenhydramine HCl 25 mg tablet 25 mg PO .Q4-6 PRN .allergy 06/07/23 08/15/23 History (Benadryl Allergy) famotidine 40 mg tablet 40 mg PO HS 06/07/23 08/15/23 History nut.tx.gluc.intol,lac-free,soy 1 ea PO BID 06/07/23 08/15/23 History (Glucerna oral liquid) linagliptin 5 mg tablet (Tradjenta) 5 mg PO DAILY 08/15/23 08/15/23 History Patient History Medical History (Updated 08/15/23 @ 12:51 by Deanna Wolfe PA-C) Seizure disorder GERD (gastroesophageal reflux disease) Acute metabolic encephalopathy Head injury Fall Acute alteration in mental status Elevated lactic acid level Weakness AMS (altered mental status) DMII (diabetes mellitus, type 2) HSV (herpes simplex virus) anogenital infection Complex partial seizure Depression with anxiety Heart murmur Onychomycosis Hypertension Schizophrenia Surgical History History of colonoscopy Family History Mother Diabetes Other Seizures Social History Smoking Status: Unknown if ever smoked Preferred Language: Swedish Communication Ability: Impaired Communication Ability Comment: Intellectual Disability Visual Impairment: No Limitations Hearing Ability: Normal 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 Psychiatric Required: No Beliefs That Will Affect Care: None marital status: Single Current Living Situation: Other Current Living Situation Comment: half-way current occupational status: disabled Feels Safe at Home: Yes Assistive Devices: Walker and Wheelchair Review of Systems Review of Systems: Unobtainable due to cognitive status Physical Exam Constitutional: + ill appearing (lethargic), + thin (wit h significant abdominal distention) and + lethargic (but is able to be awakened with effort); + not healthy appearing and not in distress appears older than documented age Respiratory: normal respiratory effort; no respiratory distress, no labored breathing and does not use accessory muscles Gastrointestinal (Abdomen): Inspection/Auscultation: + abdomen distended Percussion/Palpation: abdomen soft; no guarding and abdomen not rigid Results & Data Vital Signs (Past 12 Hours) Vital Signs Temp Pulse Pulse Resp BP BP Pulse Ox 08/15/23 14:08 36.7 C 74 15 153/78 H 92 08/15/23 13:16 101 H 20 116/25 L 93 08/15/23 13:00 116/65 08/15/23 13:00 101 H 15 93 08/15/23 12:45 101 H 16 94 08/15/23 12:45 113/65 08/15/23 12:30 122/66 08/15/23 12:30 102 H 15 93 08/15/23 12:29 103 H 08/15/23 12:15 105/62 08/15/23 12:15 104 H 19 92 08/15/23 12:00 104 H 16 102/62 92 08/15/23 11:45 104 H 15 108/65 93 08/15/23 11:30 104 H 15 123/64 94 08/15/23 11:00 107 H 15 127/72 98 08/15/23 10:31 92 08/15/23 10:31 92 08/15/23 10:00 104 H 16 138/69 95 08/15/23 09:30 103 H 18 96 08/15/23 09:10 106 H 15 128/70 98 08/15/23 08:37 36.6 C 100 H 20 112/66 93 08/15/23 08:31 108 H O2 Del Method 08/15/23 14:08 Room Air 08/15/23 13:16 Room Air 08/15/23 13:00 08/15/23 13:00 08/15/23 12:45 08/15/23 12:45 08/15/23 12:30 08/15/23 12:30 08/15/23 12:29 08/15/23 12:15 08/15/23 12:15 08/15/23 12:00 08/15/23 11:45 08/15/23 11:30 08/15/23 11:00 08/15/23 10:31 Room Air 08/15/23 10:31 Room Air 08/15/23 10:00 08/15/23 09:30 08/15/23 09:10 08/15/23 08:37 Room Air 08/15/23 08:31 PG Care Time/CCT Total # of Minutes Spent Total Time Spent with Patient: Total time spent is greater than 50% in coordination of care (as documented) at patient's floor/unit and/or counseling patient: Coding Level of Care Code 00411 IN/OBS CONSULT LVL 2,35M Diagnoses Colon distention K63.89 Gastric distention K31.89
[2023-08-15] MEDS ORDERED: 0.2 MICRON FILTER SET 1 EACH IV SCH (18:00)
[2023-08-15] MEDS: INSULIN ASPART PER UNIT CHARGE SC SCH (18:02)
[2023-08-15] MEDS: SODIUM CHLOR 0.9% IV SCH (18:12)
[2023-08-15] MEDS: MINI B IV SCH (18:12)
[2023-08-15] MEDS: LEVETIRACETAM IV SCH (18:12)
[2023-08-15] MEDS: PHENYTOIN IV SCH (18:39)
[2023-08-15] MEDS: SODIUM CHLORIDE 0.9% IV SCH (18:39)
[2023-08-15] MEDS: SODIUM CHLORIDE 0.9% 10ML FLUSH IV SCH (18:41)
[2023-08-15] MEDS ORDERED: PHENYTOIN 200 MG in SYRINGE 0 ML IV SCH (21:00)
[2023-08-15] MEDS ORDERED: Nursing to Pharmacy Communication SCH (21:30)
[2023-08-16] MEDS: INSULIN ASPART PER UNIT CHARGE SC SCH (00:18)
[2023-08-16] MEDS: ENOXAPARIN INJ 40 MG/0.4 ML SYR SQ SCH (08:10)
[2023-08-16 10:04] LABS: Estimated Average Glucose 134 mg/dl; Hemoglobin A1C 6.3 % (4.5-5.6)
[2023-08-16 10:05] LABS: Basophils # (auto) 0.01 K/uL (0.00-0.20); Basophils % (auto) 0.1 %; Immature Granulocytes # (auto) 0.04 K/uL (0.01-0.20); Immature Granulocytes % (auto) 0.4 %; Lymphocytes % (auto) 11.2 %; Mean Corpuscular Hemoglobin 31.9 pg (25.0-34.0); Mean Corpuscular Hgb Conc 34.4 g/dL (32.0-36.0); Mean Corpuscular Volume 92.8 fL (80.0-100.0); Monocytes # (auto) 0.66 K/uL (0.11-0.59); Monocytes % (auto) 7.4 %; Neutrophils # (auto) 7.19 K/uL (1.40-6.50); Neutrophils % (auto) 80.9 %; Platelet Count 109 K/uL (130-400); RDW Coefficient of Variation 14.2 % (11.5-14.5); RDW Standard Deviation 48.1 fL (36.4-46.3); Red Blood Count 3.45 M/uL (4.20-5.40)
[2023-08-16 10:13] LABS: Calcium 7.8 mg/dl (8.6-10.3); Magnesium 1.8 mg/dl (1.7-2.4); Potassium 3.9 mmol/L (3.5-5.1)
[2023-08-16 10:19] LABS: BUN Creatinine Ratio 39.5 (10-20); Creatinine Clr Calc Pharmacy 122.1 ml/min; Est GFR (African American) 127.2 ml/min; Est GFR (Non-African American) 109.8 ml/min
--- NOTE | 2023-08-16 13:51 | Hospitalist Progress Note ---
Date of Service August 16, 2023 Assessment & Plan (1) Gastric distention: Plan: GOO/possible duodenal obstruction NGT placed in the ED - keep pt NPO for now Consult general surgery -appreciate input and recommendation Clinically a little better but he still has abdominal distention Bowel has not moved yet Will continue intravenous fluid and keep her n.p.o. for now and continue NG tube suction (2) Metabolic encephalopathy: Plan: This is a 63 y/o female from [employer] with hx seizures, ambulatory dysfunction, cognitive dysfunction, schizophrenia w/ auditory hallucinations, DM2, and other history as outlined below who was brought to the ED today with lethargy and somnolence. Work-up in the ED shows marked gastric distention with fluid in the esophagus putting the patient at risk for aspiration. CT shows left lung base infiltrate representing possible aspiration pneumonitis. Also noted is marked colonic distention and severe constipation with a right colon diameter of up to 11 cm. UA negative for infection, resp panel negative. Mild leukocytosis. Pt does meet sepsis criteria on initial presentation and has received one liter of NSS thus far. ED placed NGT with return of dark green liquid. Initially elevated lactate has improved with IVF. - Admit to med telemetry - Continue NGT, consult surgery for additional recommendations - Continue broad spectrum antibiotics but will change to Unasyn due to suspected aspiration - Hold oral meds other than anti-epileptics, which will change to IV formulation - Give additional 1L of NSS at 200 ml/hr then maintenance IVF while NPO -Minimally improved today -Remains hemodynamically stable (3) Sepsis: Plan: Received 1L of IVF in the ED with improvement in lactate. Ordered second liter at 200 ml/hr then will give maintenance fluids since pt NPO Broad-spectrum antibiotics as above - cultures pending No more fever White cell count is normalized (4) Aspiration pneumonia: Plan: Starting Unasyn Suspect related to gastric distention and fluid in esophagus Continue Unasyn (5) DMII (diabetes mellitus, type 2): Plan: Chronic, recent med changes as noted in the HPI. Holding oral medications at present. Insulin sliding scale A1c in AM, BSGs (6) Schizophrenia: Plan: Chronic, stable On clozapine chronically but currently on hold since pt NPO. Consider psych con sult if unable to give via NGT within next 24-48 hrs to help with dosing. (7) Seizure disorder: Plan: Chronic, stable Discussed medications with pharmacy - will convert medications to IV while NPO. Consider checking phenytoin level in 2-3 days if still on IV instead of oral (8) Colon distention: Plan: Surgery consult as above Chronic issues with constipation - on stool softener and Miralax as outpatient. No evidence of impaction on rectal exam per ED provider. (9) Generalized weakness: Plan: Eventual PT/OT once clinically improving Fall precautions Plan Pt seen and reviewed with attending physician, Dr. Dao. Plan of care discussed and as outlined above. Updated pt's father by phone. Father requests to be the one kept updated as pt's mother is currently in rehab. DVT Prophylaxis: Lovenox Code Status: Full code Admission and Anticipated Discharge Date Admission Date: August 15, 2023 Subjective 08/16/2023 The patient was seen and examined in medical telemetry unit She has been feeling little better today Denies any significant symptoms No abdominal pain, nausea or vomiting but bowel has not moved Review of Systems Review of Systems: All systems reviewed & are unremarkable except as noted in Subjective Physical Exam Physical Exam: Lying in bed comfortably Constitutional: + ill appearing and average body habitus Eyes: PERRL, conjunctivae normal, anicteric sclerae ENMT: external ear and nose normal, oropharynx normal Neck: trachea midline, no thyromegaly Respiratory: no respiratory distress Auscultation: + diminished lung sounds and + crackles (Left basilar crackles) Cardiovascular: Rate/Rhythm: regular rate and regular rhythm; not tachycardic Heart Sounds: normal S1 and normal S2; no murmur Extremities: no edema Gastrointestinal (Abdomen): Inspection/Auscultation: + abdomen distended; + abnormal bowel sounds (Diminished) Percussion/Palpation: abdomen soft; abdomen nontender Musculoskeletal: No acute arthritis involving any joint Neurologic: Alert and awake. Minimally communicative. Moves all limbs. Generally weak Lymphatic: no cervical or axillary lymphadenopathy Results & Data Results & Data Vital Signs (Past 12 Hours) Vital Signs Temp Pulse Pulse Resp BP BP Pulse Ox 08/15/23 14:08 36.7 C 74 15 153/78 H 92 08/15/23 13:16 101 H 20 116/25 L 93 08/15/23 13:00 116/65 08/15/23 13:00 101 H 15 93 08/15/23 12:45 101 H 16 94 08/15/23 12:45 113/65 08/15/23 12:30 122/66 08/15/23 12:30 102 H 15 93 08/15/23 12:29 103 H 08/15/23 12:15 105/62 08/15/23 12:15 104 H 19 92 08/15/23 12:00 104 H 16 102/62 92 08/15/23 11:45 104 H 15 108/65 93 08/15/23 11:30 104 H 15 123/64 94 08/15/23 11:00 107 H 15 127/72 98 08/15/23 10:31 92 08/15/23 10:31 92 08/15/23 10:00 104 H 16 138/69 95 08/15/23 09:30 103 H 18 96 08/15/23 09:10 106 H 15 128/70 98 08/15/23 08:37 36.6 C 100 H 20 112/66 93 08/15/23 08:31 108 H O2 Del Method 08/15/23 14:08 Room Air 08/15/23 13:16 Room Air 08/15/23 13:00 08/15/23 13:00 08/15/23 12:45 08/15/23 12:45 08/15/23 12:30 08/15/23 12:30 08/15/23 12:29 08/15/23 12:15 08/15/23 12:15 08/15/23 12:00 08/15/23 11:45 08/15/23 11:30 08/15/23 11:00 08/15/23 10:31 Room Air 08/15/23 10:31 Room Air 08/15/23 10:00 08/15/23 09:30 08/15/23 09:10 08/15/23 08:37 Room Air 08/15/23 08:31 Laboratory Results Short CBC 08/16/23 Range/Units 09:30 WBC 8.90 (4.8-10.8) K/ul Hgb 11.0 L (12.0-16.0) g/dl Hct 32.0 L (37.0-47.0) % Plt Count 109 L (130-400) K/uL BMP 08/16/23 09:30 Sodium 144 D Potassium 3.9 Chloride 113 H Carbon Dioxide 27 BUN 17 Creatinine 0.43 L Glucose 133 H Calcium 7.8 L Medications Administered Current Inpatient Medications Dextrose (Dextrose 50% 50 Ml Syringe) 25 - 50 ml IV UD PRN; Protocol PRN Reason: Hypoglycemia Protocol Stop: 09/14/23 11:52 Enoxaparin Sodium (Enoxaparin Inj 40 Mg/0.4 Ml Syr) 40 mg SQ QAM DELMI Stop: 09/15/23 08:59 Last Admin: 08/16/23 08:10 Dose: 40 mg Glucagon (Glucagon For Inj 1 Mg Vial) 1 mg SQ UD PRN; Protocol PRN Reason: Hypoglycemia Protocol Stop: 09/14/23 11:52 Glucose (Glucose 10 Tab/Tube) 4 - 8 tab PO UD PRN; Protocol PRN Reason: Hypoglycemia Treatment Stop: 09/14/23 11:52 Glucose (Glucose 40% Gel 15 Gm Tube) 15 - 30 gm PO UD PRN; Protocol PRN Reason: Hypoglycemia Protocol Stop: 09/14/23 11:52 Levetiracetam 250 mg/ Sodium (Chloride) 102.5 mls @ 420 mls/hr IV Q12H DELMI Stop: 09/14/23 14:14 Last Infusion: 08/16/23 05:45 Dose: Infused Pantoprazole Sodium 40 mg/ (Syringe) 10 mls @ 5 mls/min IV BID DELMI Stop: 09/14/23 14:14 Last Admin: 08/16/23 08:10 Dose: 5 mls/min Ampicillin Sodium/Sulbactam Sodium 3,000 mg/ Sodium Chloride 100 mls @ 200 mls/hr IV Q6H DELMI Stop: 08/22/23 14:14 Last Infusion: 08/16/23 09:27 Dose: Infused Phenytoin 200 mg/ Sodium (Chloride) 104 mls @ 624 mls/hr IV Q12H DELMI Stop: 09/14/23 17:59 Last Infusion: 08/16/23 05:45 Dose: Infused N/A (0.2 Micron Filter Set 17" W/Clave,Non-Dehp) 0 mls @ 0 mls/hr IV Q12H DELMI Stop: 09/14/23 17:59 Sodium Chloride (Nss) 1,000 mls @ 100 mls/hr IV .Q10H DELMI Stop: 09/14/23 19:14 Last Admin: 08/16/23 03:46 Dose: 100 mls/hr Insulin Aspart (Insulin Aspart Per Unit Charge) 0 units SC Q6 DELMI Stop: 09/15/23 00:00 Last Admin: 08/16/23 11:57 Dose: Not Given Miscellaneous (Carbohydrates For Hypoglycemia ) 15 - 30 gm PO UD PRN PRN Reason: Hypoglycemia Protocol Stop: 09/14/23 11:52 Sodium Chloride (Sodium Chloride 0.9% 10ml Flush) 20 ml IV Q12H [facility] Stop: 09/14/23 17:59 Last Admin: 08/16/23 05:28 Dose: 20 ml (3) Sepsis Sepsis type: sepsis due to unspecified organism Sepsis acute organ dysfunction status: unspecified Qualified Code(s): A41.9 - Sepsis, unspecified organism (4) Aspiration pneumonia Aspiration pneumonia type: unspecified Laterality: left Lung location: lower lobe of lung Qualified Code(s): J69.0 - Pneumonitis due to inhalation of food and vomit (5) DMII (diabetes mellitus, type 2) Diabetes mellitus ad terminal makeup operator insulin use: without ad terminal makeup operator use Diabetes mellitus complication status: with other specified complication Qualified Code(s): E11.69 - Type 2 diabetes mellitus with other specified complication (6) Schizophrenia Schizophrenia type: unspecified Qualified Code(s): F20.9 - Schizophrenia, unspecified
--- NOTE | 2023-08-16 14:03 | Surgery Progress Note ---
Date of Service August 16, 2023 Assessment & Plan (1) Abdominal distension: (2) Lethargy: (3) Gastric distention: Plan Leukocytosis resolved. The patient has remained afebrile and hemodynamically stable. Distention is also resolved. Because the patient is a poor historian, we will obtain a KUB this am to see if the gastric distention is completely resolved, her abdomen is certainly no longer distended but she also had colonic distention on admission imaging. If gastric distention is resolve, we will clamp the NGT and perform a residual check. I do not see any documentation of BMs. She has considerable constipation on admission imaging. Recommended enemas. Will f/u in the am. Admission and Anticipated Discharge Date Admission Date: August 15, 2023 Subjective The patient was seen and examined this a.m. She is now alert but is not verbally responding to my questions. She occasionally will nod responses. Appears comfortable and not in any distress. Physical Exam Constitutional: + not healthy appearing, not in distress and not diaphoretic Respiratory: normal respiratory effort; no respiratory distress, no labored breathing and does not use accessory muscles Gastrointestinal (Abdomen): NGT present Resolution of distention soft Does not display tenderness to palpation Results & Data Vital Signs (Past 12 Hours) Vital Signs Temp Pulse Pulse Resp BP BP Pulse Ox 08/16/23 13:11 08/16/23 10:52 36.7 C 80 110/75 96 08/16/23 09:21 77 08/16/23 07:31 36.6 C 81 116/69 96 08/16/23 03:57 37.3 C 77 16 104/67 95 O2 Del Method 08/16/23 13:11 Room Air 08/16/23 10:52 Room Air 08/16/23 09:21 08/16/23 07:31 Room Air 08/16/23 03:57 Room Air PG Care Time/CCT Total # of Minutes Spent Total Time Spent with Patient: Total time spent is greater than 50% in coordination of care (as documented) at patient's floor/unit and/or counseling patient: Coding Level of Care Code 67648 SUB INP/OBS CARE 1/25MIN Diagnoses Abdominal distension R14.0 Lethargy R53.83 Gastric distention K31.89
--- NOTE | 2023-08-16 15:19 | XRay Report ---
XR KUB/Abdomen 1 view CLINICAL HISTORY: eval gastric distention TECHNIQUE: 1 view of the abdomen was obtained. Comparison: Comparison is made to abdomen radiograph 05/18/2023 FINDINGS: Enteric tube terminates in the stomach. Degenerative changes are seen in the visualized skeleton. The bowel gas pattern is nonobstructive. Large stool burden is seen without evidence of inspissated stoo l in the rectum. Right trochanteric is seen. IMPRESSION: Satisfactory position of enteric tube. Gastric distention is less well seen on supine radiograph. Lar ge stool burden. ACT 112: Negative or not required by law. Electronically signed by: Omari Ramirez M.D. 08/16/2023 3:18 PM
[2023-08-16] MEDS: SOD PHOSPHATE/SOD BIPHOSPHATE ENEMA 132 ML BTL PR ONE (15:53)
[2023-08-17 07:39] LABS: Basophils # (auto) 0.01 K/uL (0.00-0.20); Basophils % (auto) 0.2 %; Hematocrit (blood only) 30.2 % (37.0-47.0); Hemoglobin 10.3 g/dl (12.0-16.0); Immature Granulocytes # (auto) 0.02 K/uL (0.01-0.20); Immature Granulocytes % (auto) 0.3 %; Lymphocytes # (auto) 0.94 K/uL (1.20-3.40); Lymphocytes % (auto) 14.6 %; Mean Corpuscular Hemoglobin 31.6 pg (25.0-34.0); Mean Corpuscular Hgb Conc 34.1 g/dL (32.0-36.0); Mean Corpuscular Volume 92.6 fL (80.0-100.0); Mean Platelet Volume 11.6 fL (9.4-12.4); Monocytes # (auto) 0.58 K/uL (0.11-0.59); Neutrophils # (auto) 4.87 K/uL (1.40-6.50); Neutrophils % (auto) 75.9 %; Platelet Count 100 K/uL (130-400); RDW Coefficient of Variation 13.8 % (11.5-14.5); RDW Standard Deviation 47.3 fL (36.4-46.3); Red Blood Count 3.26 M/uL (4.20-5.40); White Blood Count 6.42 K/ul (4.8-10.8)
--- NOTE | 2023-08-17 08:29 | Surgery Progress Note ---
<Statement entered by Lexis Garcia DO - 08/18/23 13:03> This patient was seen and examined with the surgical PA. I agreed with the plan Date of Service August 17, 2023 Assessment & Plan (1) Gastric distention: Plan: Pt here with gastric distention On exam abdomen is soft, non distended, and non tender She had a documented BM after enema yesterday NGT with scant output overnight Will repeat KUB today to evaluate gastric distention, if improved would keep it in yet today and trial some miralax down the tube with possible removal tomorrow to ensure all is well as pt is not a reliable historian Recommend chest PT and pulmonary toilet Admission and Anticipated Discharge Date Admission Date: August 15, 2023 Subjective Patient resting in bed. Non talkative during our exam. Appears in no distress. Physical Exam Physical Exam: awake, no distress Respiratory: normal respiratory effort + cough Gastrointestinal (Abdomen): Inspection/Auscultation: abdomen not distended Percussion/Palpation: abdomen soft; abdomen nontender (does not appear tender to exam) Results & Data Vital Signs (Past 12 Hours) Vital Signs Temp Pulse Pulse Resp BP Pulse Ox O2 Del Method 08/17/23 07:20 97.7 F 67 14 132/67 99 Room Air 08/17/23 07:12 60 08/17/23 04:08 98.8 F 69 16 124/66 97 Room Air 08/16/23 23:51 98.6 F 83 16 115/55 L 94 Room Air 08/16/23 22:30 Room Air 08/16/23 22:00 77 PG Care Time/CCT Total # of Minutes Spent Total Time Spent with Patient: Total time spent is greater than 50% in coordination of care (as documented) at patient's floor/unit and/or counseling patient: Coding Level of Care Code 03409 SUB INP/OBS CARE 25MIN Diagnoses Gastric distention K31.89
[2023-08-17 08:39] LABS: Calcium 7.5 mg/dl (8.6-10.3); Potassium 3.2 mmol/L (3.5-5.1)
[2023-08-17 08:45] LABS: BUN Creatinine Ratio 30.6 (10-20); Creatinine Clr Calc Pharmacy 149.5 ml/min; Est GFR (African American) 134.9 ml/min; Est GFR (Non-African American) 116.4 ml/min
--- NOTE | 2023-08-17 09:54 | XRay Report ---
XR KUB/Abdomen 1 view CLINICAL HISTORY: eval gastric distention TECHNIQUE: 1 view of the abdomen was obtained. Comparison: Comparison is made to abdomen radiograph 08/16/2023 FINDINGS: Exam is limited by patient condition. Previously noted enteric tube is seen. Degenerative changes are seen in the visualized skeleton. The bowel gas pattern is nonobstructive. Suboptimal evaluation of t he stomach given patient positioning, however no large gastric bubble is seen to correspond to findin gs on CT. Prominent colonic gas and stool burden is seen. IMPRESSION: No significant gastric bubble is seen. There is prominent colonic gas and stool burden. ACT 112: Negative or not required by law. Electronically signed by: Omari Ramirez M.D. 08/17/2023 9:53 AM
[2023-08-17] MEDS: POTASSIUM CHLORIDE / WTR 10 MEQ/100 ML PLCT IV SCH (10:05)
[2023-08-17] MEDS: POLYETHYLENE (MIRALAX) 17 GM PACK PO SCH (11:56)
--- NOTE | 2023-08-17 14:20 | Hospitalist Progress Note ---
Date of Service August 17, 2023 Assessment & Plan (1) Gastric distention: Plan: GOO/possible duodenal obstruction NGT placed in the ED - keep pt NPO for now Consult general surgery -appreciate input and recommendation Clinically a little better but he still has abdominal distention Has had bowel movement yesterday with decreasing NG suction Repeat KUB today showed improvement She has been getting MiraLAX through the NG tube Clinically much better (2) Metabolic encephalopathy: Plan: This is a 63 y/o female from [facility] with hx seizures, ambulatory dysfunction, cognitive dysfunction, schizophrenia w/ auditory hallucinations, DM2, and other history as outlined below who was brought to the ED today with lethargy and somnolence. Work-up in the ED shows marked gastric distention with fluid in the esophagus putting the patient at risk for aspiration. CT shows left lung base infiltrate representing possible aspiration pneumonitis. Also noted is marked colonic distention and severe constipation with a right colon diameter of up to 11 cm. UA negative for infection, resp panel negative. Mild leukocytosis. Pt does meet sepsis criteria on initial presentation and has received one liter of NSS thus far. ED placed NGT with return of dark green liquid. Initially elevated lactate has improved with IVF. - Admit to med telemetry - Continue NGT, consult surgery for additional recommendations - Continue broad spectrum antibiotics but will change to Unasyn due to suspected aspiration - Hold oral meds other than anti-epileptics, which will change to IV formulation - Give additional 1L of NSS at 200 ml/hr then maintenance IVF while NPO -Minimally improved today -She seems to be back to her baseline. Minimally communicative (3) Sepsis: Plan: Received 1L of IVF in the ED with improvement in lactate. Ordered second liter at 200 ml/hr then will give maintenance fluids since pt NPO Likely secondary to aspiration pneumonia Has been on intravenous Unasyn and showing improvement No more fever White cell count is normalized (4) Aspiration pneumonia: Plan: Starting Unasyn Suspect related to gastric distention and fluid in esophagus Continue Unasyn (5) DMII (diabetes mellitus, type 2): Plan: Chronic, recent med changes as noted in the HPI. Holding oral medications at present. Insulin sliding scale A1c in AM-6.3 (6) Schizophrenia: Plan: Chronic, stable On clozapine chronically but currently on hold since pt NPO. Consider psych consult if unable to give via NGT within next 24-48 hrs to help with dosing. (7) Seizure disorder: Plan: Chronic, stable Discussed medications with pharmacy - will convert medications to IV while NPO. Consider checking phenytoin level in 2-3 days if still on IV instead of oral (8) Colon distention: Plan: Surgery consult as above Chronic issues with constipation - on stool softener and Miralax as outpatient. No evidence of impaction on rectal exam per ED provider. Will need Fleet enema with further improvement (9) Generalized weakness: Plan: Eventual PT/OT once clinically improving Fall precautions Plan Pt seen and reviewed with attending physician, Dr. Dao. Plan of care discussed and as outlined above. Updated pt's father by phone. Father requests to be the one kept updated as pt's mother is currently in rehab. DVT Prophylaxis: Lovenox Code Status: Full code Admission and Anticipated Discharge Date Admission Date: August 15, 2023 Subjective 08/16/2023 The patient was seen and examined in medical telemetry unit She has been feeling little better today Denies any significant symptoms No abdominal pain, nausea or vomiting but bowel has not moved 08/17/2023 The patient was seen and examined in medical telemetry unit She has been feeling much better, abdominal distention is improved and nasogastric suction is down She has had bowel movement yesterday Denies any significant symptoms Review of Systems Review of Systems: All systems reviewed and are unremarkable except as noted below Physical Exam Physical Exam: Lying in bed comfortably Constitutional: + ill appearing and average body habitus Eyes: PERRL, conjunctivae normal, anicteric sclerae ENMT: external ear and nose normal, oropharynx normal Neck: trachea midline, no thyromegaly Respiratory: no respiratory distress Auscultation: + diminished lung sounds and + crackles (Left basilar crackles) Cardiovascular: Rate/Rhythm: regular rate and regular rhythm; not tachycardic Heart Sounds: normal S1 and normal S2; no murmur Extremities: no edema Gastrointestinal (Abdomen): Inspection/Auscultation: normal bowel sounds (Minimally diminished); abdomen not distended Percussion/Palpation: abdomen soft; abdomen nontender Musculoskeletal: No acute arthritis involving any joint Neurologic: Alert and awake. Minimally communicative. Moves all limbs Lymphatic: no cervical or axillary lymphadenopathy Results & Data Results & Data Vital Signs (Past 12 Hours) Vital Signs Temp Pulse Pulse Resp BP Pulse Ox O2 Del Method 04/02/24 11:24 Room Air 08/17/23 10:54 36.6 C 62 14 114/69 98 Room Air 08/17/23 07:20 36.5 C 67 14 132/67 99 Room Air 08/17/23 07:12 60 08/17/23 04:08 37.1 C 69 16 124/66 97 Room Air Laboratory Results Short CBC 08/17/23 Range/Units 06:44 WBC 6.42 (4.8-10.8) K/ul Hgb 10.3 L (12.0-16.0) g/dl Hct 30.2 L (37.0-47.0) % Plt Count 100 L (130-400) K/uL BMP 08/17/23 06:44 Sodium 144 Potassium 3.2 L Chloride 112 H Carbon Dioxide 24 BUN 11 Creatinine 0.36 L Glucose 80 Calcium 7.5 L Medications Administered Current Inpatient Medications Dextrose (Dextrose 50% 50 Ml Syringe) 25 - 50 ml IV UD PRN; Protocol PRN Reason: Hypoglycemia Protocol Stop: 09/14/23 11:52 Enoxaparin Sodium (Enoxaparin Inj 40 Mg/0.4 Ml Syr) 40 mg SQ QAM DELMI Stop: 09/15/23 08:59 Last Admin: 08/17/23 07:38 Dose: 40 mg Glucagon (Glucagon For Inj 1 Mg Vial) 1 mg SQ UD PRN; Protocol PRN Reason: Hypoglycemia Protocol Stop: 09/14/23 11:52 Glucose (Glucose 10 Tab/Tube) 4 - 8 tab PO UD PRN; Protocol PRN Reason: Hypoglycemia Treatment Stop: 09/14/23 11:52 Glucose (Glucose 40% Gel 15 Gm Tube) 15 - 30 gm PO UD PRN; Protocol PRN Reason: Hypoglycemia Protocol Stop: 09/14/23 11:52 Pantoprazole Sodium 40 mg/ (Syringe) 10 mls @ 5 mls/min IV BID DELMI Stop: 09/14/23 14:14 Last Admin: 08/17/23 07:39 Dose: 5 mls/min Ampicillin Sodium/Sulbactam Sodium 3,000 mg/ Sodium Chloride 100 mls @ 200 mls/hr IV Q6H DELMI Stop: 08/22/23 14:14 Last Infusion: 08/17/23 08:22 Dose: Infused Phenytoin 200 mg/ Sodium (Chloride) 104 mls @ 624 mls/hr IV Q12H [facility] Stop: 09/14/23 17:59 Last Infusion: 08/17/23 05:50 Dose: Infused N/A (0.2 Micron Filter Set 17" W/Clave,Non-Dehp) 0 mls @ 0 mls/hr IV Q12H [facility] Stop: 09/14/23 17:59 Sodium Chloride (Nss) 1,000 mls @ 100 mls/hr IV .Q10H [facility] Stop: 09/14/23 19:14 Last Admin: 08/17/23 10:05 Dose: 100 mls/hr Levetiracetam 250 mg/ Sodium (Chloride) 102.5 mls @ 440 mls/hr IV Q12H [facility] Stop: 09/16/23 17:59 Insulin Aspart (Insulin Aspart Per Unit Charge) 0 units SC Q6 [facility] Stop: 09/15/23 00:00 Last Admin: 08/17/23 13:03 Dose: Not Given Miscellaneous (Carbohydrates For Hypoglycemia ) 15 - 30 gm PO UD PRN PRN Reason: Hypoglycemia Protocol Stop: 09/14/23 11:52 Polyethylene Glycol (Polyethylene (Miralax) 17 Gm Pack) 17 gm PO DAILY [facility] Stop: 09/16/23 10:14 Last Admin: 08/17/23 11:56 Dose: 17 gm Sodium Chloride (Sodium Chloride 0.9% 10ml Flush) 20 ml IV Q12H [facility] Stop: 09/14/23 17:59 Last Admin: 08/17/23 05:38 Dose: 20 ml (3) Sepsis Sepsis type: sepsis due to unspecified organism Sepsis acute organ dysfunction status: unspecified Qualified Code(s): A41.9 - Sepsis, unspecified organism (4) Aspiration pneumonia Aspiration pneumonia type: unspecified Laterality: left Lung location: lower lobe of lung Qualified Code(s): J69.0 - Pneumonitis due to inhalation of food and vomit (5) DMII (diabetes mellitus, type 2) Diabetes mellitus bed bug exterminator insulin use: without bed bug exterminator use Diabetes mellitus complication status: with other specified complication Qualified Code(s): E11.69 - Type 2 diabetes mellitus with other specified complication (6) Schizophrenia Schizophrenia type: unspecified Qualified Code(s): F20.9 - Schizophrenia, unspecified
[2023-08-17] MEDS: LEVETIRACETAM IV SCH (17:30)
[2023-08-17] MEDS: SODIUM CHLORIDE 0.9% IV SCH (17:30)
[2023-08-18 07:15] LABS: Basophils # (auto) 0.02 K/uL (0.00-0.20); Basophils % (auto) 0.3 %; Hematocrit (blood only) 28.8 % (37.0-47.0); Hemoglobin 10.1 g/dl (12.0-16.0); Immature Granulocytes # (auto) 0.05 K/uL (0.01-0.20); Immature Granulocytes % (auto) 0.7 %; Lymphocytes # (auto) 0.59 K/uL (1.20-3.40); Lymphocytes % (auto) 7.9 %; Mean Corpuscular Hemoglobin 31.7 pg (25.0-34.0); Mean Corpuscular Hgb Conc 35.1 g/dL (32.0-36.0); Mean Corpuscular Volume 90.3 fL (80.0-100.0); Mean Platelet Volume 11.3 fL (9.4-12.4); Monocytes # (auto) 0.62 K/uL (0.11-0.59); Monocytes % (auto) 8.3 %; Neutrophils # (auto) 6.16 K/uL (1.40-6.50); Neutrophils % (auto) 82.8 %; Platelet Count 111 K/uL (130-400); RDW Coefficient of Variation 13.3 % (11.5-14.5); RDW Standard Deviation 44.1 fL (36.4-46.3); Red Blood Count 3.19 M/uL (4.20-5.40); White Blood Count 7.44 K/ul (4.8-10.8)
[2023-08-18] MEDS: POLYETHYLENE (MIRALAX) 17 GM PACK NG SCH (07:26)
--- NOTE | 2023-08-18 07:41 | Surgery Progress Note ---
<Statement entered by Lexis Garcia DO - 08/18/23 13:13> I have seen and examined this patient with the surgical PA. I agree with the plan. Date of Service August 18, 2023 Assessment & Plan (1) Abdominal distension: Plan: Pt here with gastric distention On exam abdomen is soft, non distended, and appears non tender Started miralax via NGT yest, last BM 2 days ago NGT with 400cc over last 12 hours KUB yesterday showed no significant gastric bubble, with + stool burden We will trial NGT clamping today, if goes well may consider removal later this afternoon Will add suppositories to bowel regimen Continue pulmonary toilet Admission and Anticipated Discharge Date Admission Date: August 15, 2023 Subjective Patient non verbal with me this AM. She is in bed and does not appear to be in any distress. Physical Exam Physical Exam: awake, no distress. non verbal on my interview Gastrointestinal (Abdomen): Inspection/Auscultation: abdomen not distended Percussion/Palpation: abdomen soft; abdomen nontender (does not appear to be tender to palpation) Results & Data Vital Signs (Past 12 Hours) Vital Signs Temp Pulse Pulse Resp BP Pulse Ox O2 Del Method 08/18/23 03:53 99.3 F 73 18 147/74 H 95 Room Air 08/17/23 22:55 98.4 F 69 18 120/64 96 Room Air 08/17/23 22:00 77 08/17/23 19:58 Room Air 08/17/23 19:46 98.8 F 72 18 115/68 93 Room Air PG Care Time/CCT Total # of Minutes Spent Total Time Spent with Patient: Total time spent is greater than 50% in coordination of care (as documented) at patient's floor/unit and/or counseling patient: Coding Level of Care Code 02411 SUB INP/OBS CARE 1/25MIN Diagnoses Abdominal distension R14.0
[2023-08-18 08:14] LABS: BUN Creatinine Ratio 23.1 (10-20); Calcium 7.4 mg/dl (8.6-10.3); Creatinine Clr Calc Pharmacy 141.6 ml/min; Est GFR (African American) 131.4 ml/min; Est GFR (Non-African American) 113.4 ml/min; Magnesium 1.7 mg/dl (1.7-2.4); Phosphorus 2.8 mg/dl (2.5-4.9); Potassium 3.4 mmol/L (3.5-5.1)
[2023-08-18] MEDS: POTASSIUM CHLORIDE / WTR 10 MEQ/100 ML PLCT IV SCH (09:55)
--- NOTE | 2023-08-18 12:50 | Electrocardiogram Report ---
Test Reason : Blood Pressure : / mmHG Vent. Rate : 109 BPM Atrial Rate : 109 BPM P-R Int : 126 ms QRS Dur : 084 ms QT Int : 332 ms P-R-T Axes : 030 -16 035 degrees QTc Int : 447 ms Sinus tachycardia Otherwise normal ECG When compared with ECG of 11-JUN-2023 09:01, No significant change was found Confirmed by Maikel Alfaro ([id number]) on 08/18/2023 12:50:04 PM Referred By: Confirmed By:Maikel Alfaro
[2023-08-18] MEDS: D5W AND 1/2NSS + 20MEQ KCL 20 MEQ/1,000 ML BAG IV SCH (12:52)
[2023-08-18] MEDS ORDERED: Nursing to Pharmacy Communication SCH (16:15)
--- NOTE | 2023-08-18 17:05 | Hospitalist Progress Note ---
Date of Service August 18, 2023 Assessment & Plan (1) Gastric distention: Plan: This is a 63 y/o female from [facility] with hx seizures, ambulatory dysfunction, cognitive dysfunction, schizophrenia w/ auditory hallucinations, DM2, and other history as outlined below who was brought to the ED today with lethargy and somnolence. Work-up in the ED shows marked gastric distention with fluid in the esophagus putting the patient at risk for aspiration. CT shows left lung base infiltrate representing possible aspiration pneumonitis. Also noted is marked colonic distention and severe constipation with a right colon diameter of up to 11 cm. UA negative for infection, resp panel negative GOO/possible duodenal obstruction --CT ABD:Significantly suboptimal examination without oral and IV contrast. There is also significant streak and motion artifact. The stomach is markedly distended and fluid-filled. There is focal narrowing of the duodenum as it crosses anterior to the abdominal aorta, and the small bowel loops are normal in caliber. This could represent a gastric outlet obstruction or possibly a duodenal obstruction such as with SMA syndrome. This is similar in appearance to the 09/29/2022 examination. There is colonic distention and severe constipation. This has also been seen previously. The distal esophagus is distended, mildly thick walled, and filled with fluid. Note that this may place the patient at risk for aspiration. Airspace consolidation at the left lung base could represent atelectasis versus pneumonia/aspiration pneumonitis. Correlate clinically. --KUB on ON 08/17/23:No significant gastric bubble is seen. There is prominent colonic gas and stool burden. -- Conservative management Plan for NG tube clamping as per surgery Continue bowel regimen Appreciate surgery input Bowel rest for now IV fluids as needed (2) Metabolic encephalopathy: Plan: Possible aspiration --CT Head:There is no hemorrhage, mass effect, or evidence of acute territorial ischemia by CT criteria. Ventriculomegaly is unchanged. Empirically on Unasyn Reorient frequently (3) Sepsis: Plan: Likely secondary to aspiration pneumonia on Unasyn Monitor (4) Aspiration pneumonia: Plan: Management as above (5) DMII (diabetes mellitus, type 2): Plan: Chronic, recent med changes as noted in the HPI. Holding oral medications at present. HbA1c 6.3 Gentle IV fluids with dextrose to minimize hypoglycemic episodes Monitor blood glucose levels Insulin while hospitalized (6) Schizophrenia: Plan: Chronic, stable On clozapine chronically but currently on hold since pt NPO. Resume home medications as able (7) Seizure disorder: Plan: Chronic, stable Discussed medications with pharmacy - will convert medications to IV while NPO. Resume to p.o. medications as able (8) Colon distention: Plan: Surgery consult as above Chronic issues with constipation - on stool softener and Miralax as outpatient. Continue bowel regimen as above (9) Generalized weakness: Plan: Eventual PT/OT once clinically improving Fall precautions Plan DVT Px Lovenox SQ Code Status: Full code Admission and Anticipated Discharge Date Admission Date: August 15, 2023 Subjective Patient is seen and examined at bedside Mostly nonverbal No distress on exam Poor historian secondary to intellectual disability Plan for NG tube clamping today Review of Systems Review of Systems: Other Physical Exam Physical Exam: Physical Exam: Vitals signs as noted above General Appearance:Thin, chronic ill, no apparent distress, +NG tube Head: normocephalic, Atraumatic Eyes: normal inspection, EOMI Neck: supple, Trachea midline Respiratory/Chest: Decreased breath sounds, CTA, No accessory muscle use Cardiovascular: S1, S2, No murmur Abdomen/GI:Soft, Non tender, Bowel sounds decreased Extremities/Musculoskeletal:normal inspection, Trace edema Neurologic/Psych:AAOX2, grossly no focal neurological deficits, + Intellectual disability Skin: normal color, warm Results & Data Results & Data Vital Signs (Past 12 Hours) Vital Signs Temp Pulse Pulse Resp BP BP Pulse Ox 08/18/23 14:52 36.5 C 76 18 115/69 76 L 08/18/23 11:05 37.0 C 84 18 132/64 96 08/18/23 10:34 76 08/18/23 08:08 76 08/18/23 07:55 36.8 C 73 18 119/67 97 O2 Del Method 08/18/23 14:52 Room Air 08/18/23 11:05 Room Air 08/18/23 10:34 08/18/23 08:08 08/18/23 07:55 Room Air Laboratory Results Short CBC 08/18/23 Range/Units 06:23 WBC 7.44 (4.8-10.8) K/ul Hgb 10.1 L (12.0-16.0) g/dl Hct 28.8 L (37.0-47.0) % Plt Count 111 L (130-400) K/uL BMP 08/18/23 06:23 Sodium 141 Potassium 3.4 L Chloride 110 H Carbon Dioxide 18 L BUN 9 Creatinine 0.39 L Glucose 66 L Calcium 7.4 L (3) Sepsis Sepsis type: sepsis due to unspecified organism Sepsis acute organ dysfunction status: unspecified Qualified Code(s): A41.9 - Sepsis, unspecified organism (4) Aspiration pneumonia Aspiration pneumonia type: unspecified Laterality: left Lung location: lower lobe of lung Qualified Code(s): J69.0 - Pneumonitis due to inhalation of food and vomit (5) DMII (diabetes mellitus, type 2) Diabetes mellitus fpc insulin use: without fpc use Diabetes mellitus complication status: with other specified complication Qualified Code(s): E11.69 - Type 2 diabetes mellitus with other specified complication (6) Schizophrenia Schizophrenia type: unspecified Qualified Code(s): F20.9 - Schizophrenia, unspecified
[2023-08-18] MEDS ORDERED: INSULIN ASPART PER UNIT CHARGE SC SCH (18:00)
[2023-08-18] MEDS: INSULIN ASPART PER UNIT CHARGE SC SCH (18:05)
[2023-08-18] MEDS: PHENYTOIN 200 MG in SYRINGE 0 ML IV SCH (18:31)
[2023-08-19] MEDS: bisacodyL 10 MG SUPP PR PRN (03:05)
--- NOTE | 2023-08-19 08:03 | Surgery Progress Note ---
Date of Service August 19, 2023 Assessment & Plan (1) Abdominal distension: Plan: Pt here with gastric distention On exam abdomen is soft, non distended, and appears non tender no guarding/grimace with palpation VSS Having BMs Continue to follow current care plan per primary service Admission and Anticipated Discharge Date Admission Date: August 15, 2023 Subjective patient is nonverbal Physical Exam Constitutional: comfortable Respiratory: normal respiratory effort; no respiratory distress Cardiovascular: Rate/Rhythm: regular rate Gastrointestinal (Abdomen): Inspection/Auscultation: abdomen not distended Percussion/Palpation: abdomen soft; no guarding Results & Data Vital Signs (Past 12 Hours) Vital Signs Temp Pulse Pulse Resp BP Pulse Ox O2 Del Method 08/19/23 03:50 98.1 F 73 18 104/65 95 Room Air 08/18/23 23:58 69 08/18/23 23:23 99.3 F 80 18 123/83 97 Room Air PG Care Time/CCT Total # of Minutes Spent Total Time Spent with Patient: Total time spent is greater than 50% in coordination of care (as documented) at patient's floor/unit and/or counseling patient: Coding Level of Care Code 91112 SUB INP/OBS CARE 25MIN Diagnoses Abdominal distension R14.0
[2023-08-19 09:11] LABS: BUN Creatinine Ratio 13.2 (10-20); Calcium 7.6 mg/dl (8.6-10.3); Est GFR (African American) 132.5 ml/min; Est GFR (Non-African American) 114.3 ml/min; Magnesium 1.8 mg/dl (1.7-2.4); Potassium 3.9 mmol/L (3.5-5.1)
--- NOTE | 2023-08-19 16:32 | Hospitalist Progress Note ---
Date of Service August 19, 2023 Assessment & Plan (1) Gastric distention: Plan: This is a 63 y/o female from [facility] with hx seizures, ambulatory dysfunction, cognitive dysfunction, schizophrenia w/ auditory hallucinations, DM2, and other history as outlined below who was brought to the ED today with lethargy and somnolence. Work-up in the ED shows marked gastric distention with fluid in the esophagus putting the patient at risk for aspiration. CT shows left lung base infiltrate representing possible aspiration pneumonitis. Also noted is marked colonic distention and severe constipation with a right colon diameter of up to 11 cm. UA negative for infection, resp panel negative GOO/possible duodenal obstruction --CT ABD:Significantly suboptimal examination without oral and IV contrast. There is also significant streak and motion artifact. The stomach is markedly distended and fluid-filled. There is focal narrowing of the duodenum as it crosses anterior to the abdominal aorta, and the small bowel loops are normal in caliber. This could represent a gastric outlet obstruction or possibly a duodenal obstruction such as with SMA syndrome. This is similar in appearance to the 09/29/2022 examination. There is colonic distention and severe constipation. This has also been seen previously. The distal esophagus is distended, mildly thick walled, and filled with fluid. Note that this may place the patient at risk for aspiration. Airspace consolidation at the left lung base could represent atelectasis versus pneumonia/aspiration pneumonitis. Correlate clinically. --KUB on ON 08/17/23:No significant gastric bubble is seen. There is prominent colonic gas and stool burden. -- Conservative management NG tube discontinued Having bowel movements per record Continue bowel regimen Appreciate surgery input IV fluids as needed Started on liquid diet (2) Metabolic encephalopathy: Plan: Possible aspiration --CT Head:There is no hemorrhage, mass effect, or evidence of acute territorial ischemia by CT criteria. Ventriculomegaly is unchanged. Empirically on Unasyn Reorient frequently (3) Sepsis: Plan: Likely secondary to aspiration pneumonia on Unasyn Monitor (4) Aspiration pneumonia: Plan: Management as above (5) DMII (diabetes mellitus, type 2): Plan: Chronic, recent med changes as noted in the HPI. Holding oral medications at present. HbA1c 6.3 Monitor blood glucose levels Insulin while hospitalized (6) Schizophrenia: Plan: Chronic, stable On clozapine chronically but currently on hold since pt NPO. Resume home medications as able (7) Seizure disorder: Plan: Chronic, stable Discussed medications with pharmacy Resume to p.o. medications tomorrow if continues to tolerate diet (8) Colon distention: Plan: Surgery consult as above Chronic issues with constipation - on stool softener and Miralax as outpatient. Continue bowel regimen as above (9) Generalized weakness: Plan: PT OT Fall precautions Plan DVT Px Lovenox SQ Code Status: Full code Admission and Anticipated Discharge Date Admission Date: August 15, 2023 Subjective Patient is seen and examined at bedside Slow to respond, mostly nonverbal Denies any abdominal pain Seem to be tolerating liquid diet Poor historian secondary to intellectual disability No distress on exam Review of Systems Review of Systems: Other Physical Exam Physical Exam: Physical Exam: Vitals signs as noted above General Appearance:Thin, chronic ill, no apparent distress Head: normocephalic, Atraumatic Eyes: normal inspection, EOMI Neck: supple, Trachea midline Respiratory/Chest: Decreased breath sounds, CTA, No accessory muscle use Cardiovascular: S1, S2, No murmur Abdomen/GI:Soft, Non tender, Bowel sounds decreased Extremities/Musculoskeletal:normal inspection, Trace edema Neurologic/Psych:AAOX2, grossly no focal neurological deficits, + Intellectual disability Skin: normal color, warm Results & Data Results & Data Vital Signs (Past 12 Hours) Vital Signs Temp Pulse Pulse Resp BP Pulse Ox Pulse Ox 08/19/23 15:52 36.4 C L 83 18 94/64 L 98 08/19/23 14:00 98 08/19/23 13:00 98 08/19/23 11:52 36.5 C 78 18 104/73 97 08/19/23 10:00 72 08/19/23 09:20 08/19/23 08:12 36.8 C 74 14 106/67 97 O2 Del Method O2 Del Method 08/19/23 15:52 Room Air 08/19/23 14:00 Room Air 08/19/23 13:00 Room Air 08/19/23 11:52 Room Air 08/19/23 10:00 08/19/23 09:20 Room Air 08/19/23 08:12 Room Air Laboratory Results BMP 08/19/23 07:18 Sodium 138 Potassium 3.9 Chloride 110 H Carbon Dioxide 22 BUN 5 L Creatinine 0.38 L Glucose 214 H Calcium 7.6 L (3) Sepsis Sepsis type: sepsis due to unspecified organism Sepsis acute organ dysfunction status: unspecified Qualified Code(s): A41.9 - Sepsis, unspecified organism (4) Aspiration pneumonia Aspiration pneumonia type: unspecified Laterality: left Lung location: lower lobe of lung Qualified Code(s): J69.0 - Pneumonitis due to inhalation of food and vomit (5) DMII (diabetes mellitus, type 2) Diabetes mellitus shelter insulin use: without roasterman use Diabetes mellitus complication status: with other specified complication Qualified Code(s): E11.69 - Type 2 diabetes mellitus with other specified complication (6) Schizophrenia Schizophrenia type: unspecified Qualified Code(s): F20.9 - Schizophrenia, unspecified
[2023-08-19] MEDS: LACTATED RINGER'S 1,000 ML IV SCH (17:27)
--- NOTE | 2023-08-20 00:23 | Communication Note ---
Date of Service: August 20, 2023 Patient with increasing abdominal distention without abdominal pain complaints as per RN. AP Increasing abdominal distention hx GI obstruction N.p.o. for now KUB x-ray Update General Surgery
--- NOTE | 2023-08-20 00:47 | Communication Note ---
Date of Service: August 20, 2023 I was called by the hospital service and asked to evaluate this patient. The patient had been admitted since 08/15/2023 secondary to metabolic encephalopathy. The patient was also noted to have abdominal distention and she had previously been seen by general surgery. The patient had an NG tube placed for gastric decompression which was removed on 08/18/2023 as patient tolerated an NG tube clamping trial. When the material handler 1st shift nurse was assessing the patient she did note that the patient's abdomen seems to be somewhat more distended than what was noted previously. According to the nurse the patient has not complained of any abdominal pain. She also has not had any nausea or vomiting and has been having small bowel movements. Upon my visit with the patient the patient does not voice any complaints of abdominal pain. She notes that she has not had any emesis. On physical exam the patient's abdomen is mildly distended but it is soft and not firm or tense. There is some tympany to percussion. Palpation of the abdomen did not produce any painful response at all. There is no rebound tenderness or guarding. Bowel sounds are present. The patient's vital signs were reviewed and her blood pressure is 97/66. She is not tachycardic with a heart rate in the 70s. She is afebrile and her pulse ox is 97% on room air KUB was performed at bedside. This showed the patient had diffuse gas throughout her small bowel and bowel which is likely consistent with ileus. I do not appreciate any intraperitoneal free air. This was compared to KUB performed on 08/17/23 and was similar in appearance. Due to the increase in abdominal distention and KUB findings I recommend proceeding as follows: Would back to patient's diet down n.p.o.; this is already been ordered by the hospital service Maintain IV fluids for hydration I discussed with the nurse that as the patient is not having any emesis or abdominal pain we will hold on placing NG tube at this time. If the patient does have any worsening of her abdominal exam or if any emesis ensues we will need to replace an NG tube. The patient is on a bowel regimen with MiraLAX which I would continue. The patient has been having bowel movements and in fact had a bowel movement shortly after this evening's KUB was performed Will continue to monitor clinically
[2023-08-20 07:25] LABS: Hematocrit (blood only) 29.4 % (37.0-47.0); Hemoglobin 10.3 g/dl (12.0-16.0); Mean Corpuscular Hemoglobin 31.2 pg (25.0-34.0); Mean Corpuscular Volume 89.1 fL (80.0-100.0); Mean Platelet Volume 10.7 fL (9.4-12.4); Platelet Count 134 K/uL (130-400); RDW Coefficient of Variation 14.5 % (11.5-14.5); RDW Standard Deviation 45.6 fL (36.4-46.3); White Blood Count 4.82 K/ul (4.8-10.8)
--- NOTE | 2023-08-20 07:43 | XRay Report ---
KUB CLINICAL HISTORY: Abdominal distention. COMPARISON STUDY: CT of the abdomen and pelvis August 15, 2023. KUB August 17, 2023. FINDINGS: Postoperative findings within the right femur are partially imaged. The nasogastric tube ronquillo s been removed. Moderate amount of stool within the colon is noted. This has decreased since prior ex am. Mild the dilated small bowel and large bowel are similar to prior exam. IMPRESSION: 1. No significant change in mild dilatation of small and large bowel since prior exam. 2. Moderate amount of stool within the colon and rectum, decreased since prior exam. ACT 112: Negative or not required by law. Electronically signed by: Jose Srinivasan M.D. 08/20/2023 7:42 AM
[2023-08-20 07:47] LABS: BUN Creatinine Ratio 8.3 (10-20); Calcium 7.9 mg/dl (8.6-10.3); Est GFR (African American) 134.9 ml/min; Est GFR (Non-African American) 116.4 ml/min; Magnesium 1.7 mg/dl (1.7-2.4); Potassium 3.9 mmol/L (3.5-5.1)
[2023-08-20] MEDS: POLYETHYLENE (MIRALAX) 17 GM PACK PO SCH ×2 (09:39→19:34)
--- NOTE | 2023-08-20 11:32 | Surgery Progress Note ---
<Statement entered by Lexis Garcia, DO - 08/20/23 11:48> Stomach does not appear distended on any recent imaging as it had on initial arrival. Would resume diet. Patient has slow transit due to condition, immobility and likely meds. Continue on a bowel regimen with Miralax to avoid constipation, mobilize with assistance as much as possible. Date of Service August 20, 2023 Assessment & Plan (1) Abdominal distension: Plan: Patient has increase in abdominal distention over night without vomiting was made NPO Still having bowel movements No vomiting Will resume diet start with clears and advance as tolerated pt seen with Dr. Garcia Admission and Anticipated Discharge Date Admission Date: August 15, 2023 Subjective Pt non verbal for exam Physical Exam Physical Exam: awake sitting in chair Gastrointestinal (Abdomen): Inspection/Auscultation: + abdomen distended Percussion/Palpation: abdomen soft; no guarding, abdomen not rigid and abdomen not firm Results & Data Vital Signs (Past 12 Hours) Vital Signs Temp Pulse Pulse Resp BP Pulse Ox O2 Del Method 08/20/23 09:30 Room Air 08/20/23 07:38 97.7 F 66 20 109/68 99 Room Air 08/20/23 07:20 64 08/20/23 04:09 97.5 F L 65 16 121/72 97 Room Air 08/20/23 00:25 71 PG Care Time/CCT Total # of Minutes Spent Total Time Spent with Patient: Total time spent is greater than 50% in coordination of care (as documented) at patient's floor/unit and/or counseling patient: Coding Level of Care Code 40168 SUB INP/OBS CARE 25MIN Diagnoses Abdominal distension R14.0
--- NOTE | 2023-08-20 15:36 | Hospitalist Progress Note ---
Date of Service August 20, 2023 Assessment & Plan (1) Gastric distention: Plan: This is a 63 y/o female from [facility] with hx seizures, ambulatory dysfunction, cognitive dysfunction, schizophrenia w/ auditory hallucinations, DM2, and other history as outlined below who was brought to the ED today with lethargy and somnolence. Work-up in the ED shows marked gastric distention with fluid in the esophagus putting the patient at risk for aspiration. CT shows left lung base infiltrate representing possible aspiration pneumonitis. Also noted is marked colonic distention and severe constipation with a right colon diameter of up to 11 cm. UA negative for infection, resp panel negative GOO/possible duodenal obstruction --CT ABD:Significantly suboptimal examination without oral and IV contrast. There is also significant streak and motion artifact. The stomach is markedly distended and fluid-filled. There is focal narrowing of the duodenum as it crosses anterior to the abdominal aorta, and the small bowel loops are normal in caliber. This could represent a gastric outlet obstruction or possibly a duodenal obstruction such as with SMA syndrome. This is similar in appearance to the 09/29/2022 examination. There is colonic distention and severe constipation. This has also been seen previously. The distal esophagus is distended, mildly thick walled, and filled with fluid. Note that this may place the patient at risk for aspiration. Airspace consolidation at the left lung base could represent atelectasis versus pneumonia/aspiration pneumonitis. Correlate clinically. --KUB on ON 08/17/23:No significant gastric bubble is seen. There is prominent colonic gas and stool burden. -- Conservative management NG tube discontinued Continue bowel regimen IV fluids as needed Currently on liquid diet Will repeat KUB today Encouraged to ambulate Surgery following (2) Metabolic encephalopathy: Plan: Possible aspiration --CT Head:There is no hemorrhage, mass effect, or evidence of acute territorial ischemia by CT criteria. Ventriculomegaly is unchanged. Empirically on Unasyn Reorient frequently (3) Sepsis: Plan: Likely secondary to aspiration pneumonia on Unasyn Monitor (4) Aspiration pneumonia: Plan: Management as above (5) DMII (diabetes mellitus, type 2): Plan: Chronic, recent med changes as noted in the HPI. Holding oral medications at present. HbA1c 6.3 Monitor blood glucose levels Insulin while hospitalized (6) Schizophrenia: Plan: Chronic, stable On clozapine chronically but currently on hold Resume home medications as able (7) Seizure disorder: Plan: Chronic, stable Currently on IV Keppra Resume to p.o. medications as able (8) Colon distention: Plan: Surgery consult as above Chronic issues with constipation - on stool softener and Miralax as outpatient. Continue bowel regimen as above (9) Generalized weakness: Plan: PT OT Fall precautions Plan DVT Px Lovenox SQ Code Status: Full code Admission and Anticipated Discharge Date Admission Date: August 15, 2023 Subjective Patient is seen and examined at bedside Poor historian secondary to intellectual disability RN noted abdomen to be more distended today No distress on my exam today Patient mostly nonverbal No good bowel movement today Review of Systems Review of Systems: All systems reviewed & are unremarkable except as noted in Subjective Physical Exam Physical Exam: Physical Exam: Vitals signs as noted above General Appearance:Thin, chronic ill, no apparent distress Head: normocephalic, Atraumatic Eyes: normal inspection, EOMI Neck: supple, Trachea midline Respiratory/Chest: Decreased breath sounds, CTA, No accessory muscle use Cardiovascular: S1, S2, No murmur Abdomen/GI:Soft, Non tender, distended, Bowel sounds decreased Extremities/Musculoskeletal:normal inspection, Trace edema Neurologic/Psych:AAOX2, grossly no focal neurological deficits, + Intellectual disability Skin: normal color, warm Results & Data Results & Data Vital Signs (Past 12 Hours) Vital Signs Temp Pulse Pulse Resp BP Pulse Ox Pulse Ox 08/20/23 15:25 66 08/20/23 15:01 73 20 100/70 98 08/20/23 14:00 98 08/20/23 13:00 96 08/20/23 11:41 36.6 C 79 20 97/65 L 96 08/20/23 09:30 08/20/23 07:38 36.5 C 66 20 109/68 99 08/20/23 07:20 64 08/20/23 04:09 36.4 C L 65 16 121/72 97 O2 Del Method O2 Del Method 08/20/23 15:25 08/20/23 15:01 Room Air 08/20/23 14:00 Room Air 08/20/23 13:00 Room Air 08/20/23 11:41 Room Air 08/20/23 09:30 Room Air 08/20/23 07:38 Room Air 08/20/23 07:20 08/20/23 04:09 Room Air Laboratory Results Short CBC 08/20/23 Range/Units 06:27 WBC 4.82 (4.8-10.8) K/ul Hgb 10.3 L (12.0-16.0) g/dl Hct 29.4 L (37.0-47.0) % Plt Count 134 (130-400) K/uL BMP 08/20/23 06:27 Sodium 142 Potassium 3.9 Chloride 112 H Carbon Dioxide 25 BUN 3 L Creatinine 0.36 L Glucose 126 H Calcium 7.9 L (3) Sepsis Sepsis acute organ dysfunction status: unspecified Sepsis type: sepsis due to unspecified organism Qualified Code(s): A41.9 - Sepsis, unspecified organism (4) Aspiration pneumonia Aspiration pneumonia type: unspecified Laterality: left Lung location: lower lobe of lung Qualified Code(s): J69.0 - Pneumonitis due to inhalation of food and vomit (5) DMII (diabetes mellitus, type 2) Diabetes mellitus complication status: with other specified complication Diabetes mellitus shelter insulin use: without intermission coordinator use Qualified Co de(s): E11.69 - Type 2 diabetes mellitus with other specified complication (6) Schizophrenia Schizophrenia type: unspecified Qualified Code(s): F20.9 - Schizophrenia, unspecified
--- NOTE | 2023-08-20 17:26 | XRay Report ---
KUB HISTORY: Acute generalized abdominal pain ABD distention COMPARISON: KUB of same day FINDINGS: Postoperative findings within the right femur are partially imaged. The nasogastric tube ronquillo s been removed. Moderate amount of stool within the colon is noted. This is unchanged. Mild the dilat ed small bowel and large bowel are similar to prior exam. IMPRESSION: 1. No significant change in mild dilatation of small and large bowel since prior exam. 2. Moderate amount of stool within the colon and rectum, unchanged. ACT 112: Negative or not required by law. The above report was generated using voice recognition software. It may contain grammatical, syntax o r spelling errors. Electronically signed by: Vince Brito M.D. 08/20/2023 5:25 PM
[2023-08-20] MEDS: ONDANSETRON INJ 2 MG/ML 2 ML VIAL IV STA (18:35)
[2023-08-21 07:15] LABS: Calcium 8.4 mg/dl (8.6-10.3); Magnesium 1.8 mg/dl (1.7-2.4)
[2023-08-21 07:21] LABS: BUN Creatinine Ratio 7.9 (10-20); Creatinine Clr Calc Pharmacy 143.8 ml/min; Est GFR (African American) 132.5 ml/min; Est GFR (Non-African American) 114.3 ml/min
[2023-08-21] MEDS: DOCUSATE SODIUM 100 MG CAP PO SCH (10:28)
--- NOTE | 2023-08-21 14:47 | Hospitalist Progress Note ---
Date of Service August 21, 2023 Assessment & Plan (1) Gastric distention: Plan: This is a 63 y/o female from [facility] with hx seizures, ambulatory dysfunction, cognitive dysfunction, schizophrenia w/ auditory hallucinations, DM2, and other history as outlined below who was brought to the ED today with lethargy and somnolence. Work-up in the ED shows marked gastric distention with fluid in the esophagus putting the patient at risk for aspiration. CT shows left lung base infiltrate representing possible aspiration pneumonitis. Also noted is marked colonic distention and severe constipation with a right colon diameter of up to 11 cm. UA negative for infection, resp panel negative GOO/possible duodenal obstruction --CT ABD:Significantly suboptimal examination without oral and IV contrast. There is also significant streak and motion artifact. The stomach is markedly distended and fluid-filled. There is focal narrowing of the duodenum as it crosses anterior to the abdominal aorta, and the small bowel loops are normal in caliber. This could represent a gastric outlet obstruction or possibly a duodenal obstruction such as with SMA syndrome. This is similar in appearance to the 09/29/2022 examination. There is colonic distention and severe constipation. This has also been seen previously. The distal esophagus is distended, mildly thick walled, and filled with fluid. Note that this may place the patient at risk for aspiration. Airspace consolidation at the left lung base could represent atelectasis versus pneumonia/aspiration pneumonitis. Correlate clinically. --KUB on ON 08/17/23:No significant gastric bubble is seen. There is prominent colonic gas and stool burden. -- Conservative management NG tube discontinued Continue bowel regimen IV fluids as needed Encouraged to ambulate Surgery following Advance to full liquid diet Had bowel movement today (2) Metabolic encephalopathy: Plan: Possible aspiration --CT Head:There is no hemorrhage, mass effect, or evidence of acute territorial ischemia by CT criteria. Ventriculomegaly is unchanged. Empirically on Unasyn Reorient frequently (3) Sepsis: Plan: Likely secondary to aspiration pneumonia on Unasyn Monitor (4) Aspiration pneumonia: Plan: Management as above (5) DMII (diabetes mellitus, type 2): Plan: Chronic, recent med changes as noted in the HPI. Holding oral medications at present. HbA1c 6.3 Monitor blood glucose levels Insulin while hospitalized (6) Schizophrenia: Plan: Chronic, stable Continue home medications (7) Seizure disorder: Plan: Chronic, stable Continue home medications (8) Colon distention: Plan: Surgery consult as above Chronic issues with constipation - on stool softener and Miralax as outpatient. Continue bowel regimen as above (9) Generalized weakness: Plan: PT OT Fall precautions Plan DVT Px Lovenox SQ Code Status: Full code Admission and Anticipated Discharge Date Admission Date: August 15, 2023 Subjective Patient is seen and examined at bedside Poor historian secondary to intellectual disability Had bowel movement today Tolerating current diet Denies any nausea, vomiting, abdominal pain Review of Systems Review of Systems: All systems reviewed & are unremarkable except as noted in Subjective Physical Exam Physical Exam: Physical Exam: Vitals signs as noted above General Appearance:Thin, chronic ill, no apparent distress Head: normocephalic, Atraumatic Eyes: normal inspection, EOMI Neck: supple, Trachea midline Respiratory/Chest: Decreased breath sounds, CTA, No accessory muscle use Cardiovascular: S1, S2, No murmur Abdomen/GI:Soft, Non tender, mild distended, Bowel sounds decreased Extremities/Musculoskeletal:normal inspection, Trace edema Neurologic/Psych:AAOX2, grossly no focal neurological deficits, + Intellectual disability Skin: normal color, warm Results & Data Results & Data Vital Signs (Past 12 Hours) Vital Signs Temp Pulse Pulse Resp BP BP Pulse Ox 08/21/23 14:00 08/21/23 13:00 08/21/23 11:06 36.3 C L 69 20 110/75 99 08/21/23 07:35 08/21/23 07:32 36.5 C 72 20 134/76 97 08/21/23 07:21 59 L 08/21/23 03:26 36.3 C L 58 L 18 98/63 L 95 Pulse Ox O2 Del Method O2 Del Method 08/21/23 14:00 99 Room Air 08/21/23 13:00 99 Room Air 08/21/23 11:06 Room Air 08/21/23 07:35 Room Air 08/21/23 07:32 Room Air 08/21/23 07:21 08/21/23 03:26 Room Air Laboratory Results BMP 08/21/23 06:39 Sodium 143 Potassium 4.0 Chloride 109 H Carbon Dioxide 29 BUN 3 L Creatinine 0.38 L Glucose 97 Calcium 8.4 L (3) Sepsis Sepsis type: sepsis due to unspecified organism Sepsis acute organ dysfunction status: unspecified Qualified Code(s): A41.9 - Sepsis, unspecified organism (4) Aspiration pneumonia Aspiration pneumonia type: unspecified Laterality: left Lung location: lower lobe of lung Qualified Code(s): J69.0 - Pneumonitis due to inhalation of food and vomit (5) DMII (diabetes mellitus, type 2) 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
[2023-08-21] MEDS ORDERED: GLUCAGON FOR INJ 1 MG VIAL IM PRN (15:45)
[2023-08-21] MEDS ORDERED: GLUCOSE 10 TAB/TUBE PO PRN (15:45)
[2023-08-21] MEDS ORDERED: CARBOHYDRATES FOR HYPOGLYCEMIA PO PRN (15:45)
[2023-08-21] MEDS ORDERED: GLUCOSE 40% GEL 15 GM TUBE PO PRN (15:45)
[2023-08-21] MEDS ORDERED: DEXTROSE 50% 50 ML SYRINGE IV PRN (15:45)
--- NOTE | 2023-08-21 15:54 | Surgery Progress Note ---
Date of Service August 21, 2023 Assessment & Plan (1) Colon distention: Plan: Abdominal distention due to slow transit. No sign of mechanical blockage. Continue diet as tolerated. Will sign off - please call with questions. Admission and Anticipated Discharge Date Admission Date: August 15, 2023 Subjective Tolerating diet Denies abdominal pain No nausea/ vomiting reported Mainly nonverbal (does answer no to some questions) Physical Exam Gastrointestinal (Abdomen): Inspection/Auscultation: abdomen normal to inspection, + abdomen distended and normal bowel sounds Percussion/Palpation: abdomen soft; abdomen nontender Results & Data Vital Signs (Past 12 Hours) Vital Signs Temp Pulse Pulse Resp BP Pulse Ox Pulse Ox 08/21/23 15:26 36.4 C L 71 16 93/55 L 98 08/21/23 14:00 99 08/21/23 13:00 99 08/21/23 11:06 36.3 C L 69 20 110/75 99 08/21/23 07:35 08/21/23 07:32 36.5 C 72 20 134/76 97 08/21/23 07:21 59 L O2 Del Method O2 Del Method 08/21/23 15:26 Room Air 08/21/23 14:00 Room Air 08/21/23 13:00 Room Air 08/21/23 11:06 Room Air 08/21/23 07:35 Room Air 08/21/23 07:32 Room Air 08/21/23 07:21
[2023-08-21] MEDS ORDERED: INSULIN ASPART PER UNIT CHARGE SC SCH (16:30)
[2023-08-21] MEDS: cloZAPine 100 MG TAB PO SCH (20:33)
[2023-08-21] MEDS: PHENYTOIN SODIUM ER 100 MG CAP PO SCH (20:34)
[2023-08-21] MEDS: FLUTICASONE PROPIONATE NA SPR 16 GM BTL SCH (20:34)
[2023-08-21] MEDS: levETIRAcetam 250 MG TAB PO SCH (20:34)
[2023-08-21] MEDS: FAMOTIDINE 40 MG TABLET PO SCH (20:35)
[2023-08-21] MEDS: ATORVASTATIN 40 MG TAB PO SCH (20:35)
[2023-08-22 07:39] VITALS: RESP 16
[2023-08-22 07:44] LABS: BUN Creatinine Ratio 7.5 (10-20); Calcium 8.1 mg/dl (8.6-10.3); Creatinine Clr Calc Pharmacy 136.6 ml/min; Est GFR (African American) 130.3 ml/min; Est GFR (Non-African American) 112.4 ml/min; Magnesium 1.7 mg/dl (1.7-2.4); Potassium 3.9 mmol/L (3.5-5.1)
[2023-08-22] MEDS: valACYclovir HCL 500 MG TABLET PO SCH (08:16)
[2023-08-22] MEDS ORDERED: NON-FORMULARY MEDICATION (Linagliptin [Tradjenta] 5 mg tablet) PO SCH (09:00)
[2023-08-22] MEDS ORDERED: bisacodyL 10 MG SUPP PR PRN (09:31)
--- NOTE | 2023-08-22 15:56 | Hospitalist Progress Note ---
Date of Service August 22, 2023 Assessment & Plan (1) Gastric distention: Plan: This is a 63 y/o female from [facility] with hx seizures, ambulatory dysfunction, cognitive dysfunction, schizophrenia w/ auditory hallucinations, DM2, and other history as outlined below who was brought to the ED today with lethargy and somnolence. Work-up in the ED shows marked gastric distention with fluid in the esophagus putting the patient at risk for aspiration. CT shows left lung base infiltrate representing possible aspiration pneumonitis. Also noted is marked colonic distention and severe constipation with a right colon diameter of up to 11 cm. UA negative for infection, resp panel negative GOO/possible duodenal obstruction --CT ABD:Significantly suboptimal examination without oral and IV contrast. There is also significant streak and motion artifact. The stomach is markedly distended and fluid-filled. There is focal narrowing of the duodenum as it crosses anterior to the abdominal aorta, and the small bowel loops are normal in caliber. This could represent a gastric outlet obstruction or possibly a duodenal obstruction such as with SMA syndrome. This is similar in appearance to the 09/29/2022 examination. There is colonic distention and severe constipation. This has also been seen previously. The distal esophagus is distended, mildly thick walled, and filled with fluid. Note that this may place the patient at risk for aspiration. Airspace consolidation at the left lung base could represent atelectasis versus pneumonia/aspiration pneumonitis. Correlate clinically. --KUB on ON 08/17/23:No significant gastric bubble is seen. There is prominent colonic gas and stool burden. -- Conservative management NG tube discontinued Continue bowel regimen IV fluids as needed Encouraged to ambulate Surgery following Continue liquid diet, advance as tolerated KUB today pending Encouraged to ambulate (2) Metabolic encephalopathy: Plan: Possible aspiration --CT Head:There is no hemorrhage, mass effect, or evidence of acute territorial ischemia by CT criteria. Ventriculomegaly is unchanged. Empirically on Unasyn Reorient frequently (3) Sepsis: Plan: Likely secondary to aspiration pneumonia on Unasyn Monitor (4) Aspiration pneumonia: Plan: Management as above (5) DMII (diabetes mellitus, type 2): Plan: Chronic, recent med changes as noted in the HPI. Holding oral medications at present. HbA1c 6.3 Monitor blood glucose levels Insulin while hospitalized (6) Schizophrenia: Plan: Chronic, stable Continue home medications (7) Seizure disorder: Plan: Chronic, stable Continue home medications (8) Colon distention: Plan: Surgery consult as above Chronic issues with constipation - on stool softener and Miralax as outpatient. Continue bowel regimen as above (9) Generalized weakness: Plan: PT OT Fall precautions Plan DVT Px Lovenox SQ Code Status: Full code Admission and Anticipated Discharge Date Admission Date: August 15, 2023 Subjective Patient is seen and examined at bedside Poor historian secondary to intellectual disability Had bowel movement today per record No distress on exam KUB from this morning pending Seem to be tolerating current diet Review of Systems Review of Systems: All systems reviewed & are unremarkable except as noted in Subjective Physical Exam Physical Exam: Physical Exam: Vitals signs as noted above General Appearance:Thin, chronic ill, no apparent distress Head: normocephalic, Atraumatic Eyes: normal inspection, EOMI Neck: supple, Trachea midline Respiratory/Chest: Decreased breath sounds, CTA, No accessory muscle use Cardiovascular: S1, S2, No murmur Abdomen/GI:Soft, Non tender, mild distended, Bowel sounds decreased Extremities/Musculoskeletal:normal inspection, Trace edema Neurologic/Psych:AAOX2, grossly no focal neurological deficits, + Intellectual disability Skin: normal color, warm Results & Data Results & Data Vital Signs (Past 12 Hours) Vital Signs Temp Pulse Resp BP Pulse Ox O2 Del Method 08/22/23 15:17 36.9 C 86 16 124/70 95 Room Air 08/22/23 07:39 36.8 C 81 16 120/71 98 Room Air Laboratory Results [facility] 08/22/23 06:38 Sodium 143 Potassium 3.9 Chloride 111 H Carbon Dioxide 27 BUN 3 L Creatinine 0.40 L Glucose 124 H Calcium 8.1 L (3) Sepsis Sepsis type: sepsis due to unspecified organism Sepsis acute organ dysfunction status: unspecified Qualified Code(s): A41.9 - Sepsis, unspecified organism (4) Aspiration pneumonia Aspiration pneumonia type: unspecified Laterality: left Lung location: lower lobe of lung Qualified Code(s): J69.0 - Pneumonitis due to inhalation of food and vomit (5) DMII (diabetes mellitus, type 2) Diabetes mellitus longterm insulin use: without terminal gauger use Diabetes mellitus complication status: with other specified complication Qualified Code(s): E11.69 - Type 2 diabetes mellitus with other specified complication (6) Schizophrenia Schizophrenia type: unspecified Qualified Code(s): F20.9 - Schizophrenia, unspecified
--- NOTE | 2023-08-22 18:14 | XRay Report ---
XR KUB/Abdomen 1 view CLINICAL HISTORY: constipation TECHNIQUE: 1 view of the abdomen was obtained. Comparison: Comparison is made to chest radiograph 08/20/2023 FINDINGS: Lung bases are unremarkable. Degenerative changes are seen in the visualized skeleton. The bowel gas pattern is nonobstructive. Large rectal stool burden is seen. Right femoral medullary aston is partiall y seen. IMPRESSION: Large rectal stool burden is noted. No definite radiographic findings of inspissation however this ca nnot be entirely excluded. ACT 112: Negative or not required by law. Electronically signed by: Omari Ramirez M.D. 08/22/2023 6:12 PM
[2023-08-23 07:28] VITALS: BP 136/68; PULSE 79; TEMP 97.9; O2SAT 100
--- NOTE | 2023-08-23 11:48 | Hospitalist Progress Note ---
Date of Service August 23, 2023 Assessment & Plan (1) Gastric distention: Plan: This is a 63 y/o female from [facility] with hx seizures, ambulatory dysfunction, cognitive dysfunction, schizophrenia w/ auditory hallucinations, DM2, and other history as outlined below who was brought to the ED today with lethargy and somnolence. Work-up in the ED shows marked gastric distention with fluid in the esophagus putting the patient at risk for aspiration. CT shows left lung base infiltrate representing possible aspiration pneumonitis. Also noted is marked colonic distention and severe constipation with a right colon diameter of up to 11 cm. UA negative for infection, resp panel negative GOO/possible duodenal obstruction --CT ABD:Significantly suboptimal examination without oral and IV contrast. There is also significant streak and motion artifact. The stomach is markedly distended and fluid-filled. There is focal narrowing of the duodenum as it crosses anterior to the abdominal aorta, and the small bowel loops are normal in caliber. This could represent a gastric outlet obstruction or possibly a duodenal obstruction such as with SMA syndrome. This is similar in appearance to the 09/29/2022 examination. There is colonic distention and severe constipation. This has also been seen previously. The distal esophagus is distended, mildly thick walled, and filled with fluid. Note that this may place the patient at risk for aspiration. Airspace consolidation at the left lung base could represent atelectasis versus pneumonia/aspiration pneumonitis. Correlate clinically. --KUB on ON 08/17/23:No significant gastric bubble is seen. There is prominent colonic gas and stool burden. -- Conservative management NG tube discontinued Continue bowel regimen IV fluids as needed Encouraged to ambulate Appreciate surgery input Advance to low fiber diet Had BMs Plan to be discharged today (2) Metabolic encephalopathy: Plan: Possible aspiration --CT Head:There is no hemorrhage, mass effect, or evidence of acute territorial ischemia by CT criteria. Ventriculomegaly is unchanged. Completed Unasyn course Reorient frequently (3) Sepsis: Plan: Likely secondary to aspiration pneumonia Completed Unasyn course Monitor (4) Aspiration pneumonia: Plan: Management as above (5) DMII (diabetes mellitus, type 2): Plan: Chronic, recent med changes as noted in the HPI. Holding oral medications at present. HbA1c 6.3 Monitor blood glucose levels Insulin while hospitalized (6) Schizophrenia: Plan: Chronic, stable Continue home medications (7) Seizure disorder: Plan: Chronic, stable Continue home medications (8) Colon distention: Plan: Surgery consult as above Chronic issues with constipation - on stool softener and Miralax as outpatient. Continue bowel regimen as above (9) Generalized weakness: Plan: PT OT Fall precautions Plan DVT Px Lovenox SQ Code Status: Full code Disposition [facility] Admission and Anticipated Discharge Date Admission Date: August 15, 2023 Subjective Patient is seen and examined at bedside Poor historian secondary to intellectual disability States feeling well today Had bowel movements Tolerating regular diet No new complaints Denies any chest pain, abdominal pain, nausea, vomiting Plan to be discharged today Review of Systems Review of Systems: All systems reviewed & are unremarkable except as noted in Subjective Physical Exam Physical Exam: Physical Exam: Vitals signs as noted above General Appearance:Thin, chronic ill, no apparent distress Head: normocephalic, Atraumatic Eyes: normal inspection, EOMI Neck: supple, Trachea midline Respiratory/Chest: Decreased breath sounds, CTA, No accessory muscle use Cardiovascular: S1, S2, No murmur Abdomen/GI:Soft, Non tender, mild distended, Bowel sounds decreased Extremities/Musculoskeletal:normal inspection, Trace edema Neurologic/Psych:AAOX2, grossly no focal neurological deficits, + Intellectual disability Skin: normal color, warm Results & Data Results & Data Vital Signs (Past 12 Hours) Vital Signs Temp Pulse Resp BP Pulse Ox O2 Del Method 08/23/23 07:27 36.6 C 79 16 136/68 100 Room Air (3) Sepsis Sepsis type: sepsis due to unspecified organism Sepsis acute organ dysfunction status: unspecified Qualified Code(s): A41.9 - Sepsis, unspecified organism (4) Aspiration pneumonia Aspiration pneumonia type: unspecified Laterality: left Lung location: lower lobe of lung Qualified Code(s): J69.0 - Pneumonitis due to inhalation of food and vomit (5) DMII (diabetes mellitus, type 2) Diabetes mellitus retirement insulin use: without salvage determiner use Diabetes mellitus complication status: with other specified complication Qualified Code(s): E11.69 - Type 2 diabetes mellitus with other specified complication (6) Schizophrenia Schizophrenia type: unspecified Qualified Code(s): F20.9 - Schizophrenia, unspecified
--- NOTE | 2023-08-23 11:55 | Discharge Summary ---
Date of Service August 23, 2023 Admission HPI Per Admitting Provider This is a 63 y/o female from [facility] with hx seizures, ambulatory dysfunction, cognitive dysfunction, schizophrenia w/ auditory hallucinations, DM2, and other history as outlined below who was brought to the ED today with lethargy and somnolence. History from the patient was unobtainable so history obtained from pt's caregiver at bedside and her father by phone. Pt was in her usual state of health two days ago. Yesterday, she was found sitting on the floor having slid out of bed but could not recall how she fell. She was able to get herself up and get into the wheelchair, seemed okay the rest of the day. Last night, she went to bed around 8 pm and slept through the night until getting up around 7 am today. Her caregivers did note that she was coughing at times last night, which was out of the ordinary for her. When she got up this morning, she required full assistance to get a shower due to weakness and was noted to be falling asleep even while showering, again which is unusual for her. She required a wheelchair to ambulate today and was not answering questions. Because of the change in mental status and somnolence, pt was brought to the ED for evaluation. Pt's caregiver notes ongoing issues with abdominal distention and large bowel movements. However, denies pt having any recent hard stools or observed straining. Her appetite has been at baseline. No vomiting, fevers noted. Her medications were recently adjusted with discontinuation of Jardiance and metformin due to lactic acidosis but addition of Tradjenta. Sugars have been running higher than usual since this change. Pt was admitted to [facility]: 05/17/2023-05/19/2023 for bronchitis, lactic acidosis, weakness, was empirically treated with doxycycline, MRI brain was negative for stroke. 06/07/2023-06/10/2023 for influenza A, generalized weakness, confusion was treated with Tamiflu and supportive care. 06/11/2023-06/16/2023 for ambulatory dysfunction/generalized weakness, work-up negative for acute cause, thought deconditioning secondary recent illness Admission Exam Per Admitting Provider General: somnolent but arousable, not answering questions but does arouse to name HEENT: no scleral icterus, +NGT in right nares with dark green drainage Neck: supple, trachea midline Heart: regular but tachycardic Lungs: diminished but poor inspiratory effort Abdomen: softly distended, +BS Extremities: distal pulses intact and equal, no pedal edema Skin: warm, dry, no jaundice Principal Diagnosis Gastric outlet obstruction--resolved Chronic constipation Aspiration pneumonia Discharge Data Allergies Allergy/AdvReac Type Severity Reaction Status Date / Time divalproex sodium Allergy Unknown Unknown Verified 06/07/23 12:54 [From Depakote] salicylates Allergy Unknown Unknown Verified 06/07/23 12:54 valproic acid Allergy Unknown Unknown Verified 06/07/23 12:54 aspirin AdvReac Severe STOMACH Verified 06/07/23 12:54 ULCER BLEEDING Consultations 08/15/23 11:50 Consult General Surgery Routine Procedures Performed Laboratory Results WBC 4.82 K/ul (4.8-10.8) 08/20/23 06:27 RBC 3.30 M/uL (4.20-5.40) L 08/20/23 06:27 Hgb 10.3 g/dl (12.0-16.0) L 08/20/23 06:27 Hct 29.4 % (37.0-47.0) L 08/20/23 06:27 MCV 89.1 fL (80.0-100.0) 08/20/23 06:27 MCH 31.2 pg (25.0-34.0) 08/20/23 06:27 MCHC 35.0 g/dL (32.0-36.0) 08/20/23 06:27 RDW Std Deviation 45.6 fL (36.4-46.3) 08/20/23 06:27 RDW Coeff of Liliana 14.5 % (11.5-14.5) 08/20/23 06:27 Plt Count 134 K/uL (130-400) 08/20/23 06:27 MPV 10.7 fL (9.4-12.4) 08/20/23 06:27 Immature Gran % (Auto) 0.7 % 08/18/23 06:23 Neut % (Auto) 82.8 % 08/18/23 06:23 Lymph % (Auto) 7.9 % 08/18/23 06:23 [place] % (Auto) 8.3 % 08/18/23 06:23 Eos % (Auto) 0.0 % 08/18/23 06:23 Baso % (Auto) 0.3 % 08/18/23 06:23 Neut # (Auto) 6.16 K/uL (1.40-6.50) 08/18/23 06:23 Lymph # (Auto) 0.59 K/uL (1.20-3.40) L 08/18/23 06:23 [place] # (Auto) 0.62 K/uL (0.11-0.59) H 08/18/23 06:23 Eos # (Auto) 0.00 K/uL (0.00-0.50) 08/18/23 06:23 Baso # (Auto) 0.02 K/uL (0.00-0.20) 08/18/23 06:23 Immature Gran # (Auto) 0.05 K/uL (0.01-0.20) 08/18/23 06:23 PT 11.0 Seconds (9.0-12.0) 08/15/23 08:38 INR 1.0 (0.9-1.1) 08/15/23 08:38 APTT 23 Seconds (21-31) 08/15/23 08:38 PTT Ratio 0.8 08/15/23 08:38 VBG pH 7.37 (7.36-7.41) 08/15/23 09:36 VBG pCO2 48 mmHg (38-50) 08/15/23 09:36 VBG pO2 37 mmHg 08/15/23 09:36 VBG HCO3 28 mmol/L 08/15/23 09:36 VBG O2 Saturation 64.9 % 08/15/23 09:36 VBG Base Excess 1.7 mEq/L 08/15/23 09:36 Sodium 143 mmol/L (136-145) 08/22/23 06:38 Potassium 3.9 mmol/L (3.5-5.1) 08/22/23 06:38 Chloride 111 mmol/L (98-107) H 08/22/23 06:38 Carbon Dioxide 27 mmol/L (21-32) 08/22/23 06:38 Anion Gap 5 (3-11) 08/22/23 06:38 BUN 3 mg/dl (6-23) L 08/22/23 06:38 Creatinine 0.40 mg/dl (0.6-1.2) L 08/22/23 06:38 Est Cr Clr Drug Dosing 136.6 ml/min 08/22/23 06:38 Est GFR ( Amer) 130.3 ml/min 08/22/23 06:38 Est GFR (Non-Af Amer) 112.4 ml/min 08/22/23 06:38 BUN/Creatinine Ratio 7.5 (10-20) L 08/22/23 06:38 Glucose 124 mg/dl (70-99(Fasting)) H 08/22/23 06:38 POC Glucose 279 mg/dl (70-99) H 08/23/23 11:15 Estimat Average Glucose 134 mg/dl 08/16/23 09:30 Hemoglobin A1c 6.3 % (4.5-5.6) H 08/16/23 09:30 Lactate 1.5 mmol/L (0.4-2.0) 08/15/23 11:20 Calcium 8.1 mg/dl (8.6-10.3) L 08/22/23 06:38 Phosphorus 2.8 mg/dl (2.5-4.9) 08/18/23 06:23 Magnesium 1.7 mg/dl (1.7-2.4) 08/22/23 06:38 Total Bilirubin 0.5 mg/dl (0.2-1.0) 08/15/23 08:38 Direct Bilirubin 0.1 mg/dl (0-0.2) 08/15/23 08:38 AST 26 U/L (13-39) 08/15/23 08:38 ALT 44 U/L (7-52) 08/15/23 08:38 Alkaline Phosphatase 103 U/L (34-104) 08/15/23 08:38 Troponin I High Sens 2.8 pg/ml (0-14) 08/15/23 08:38 Total Protein 6.5 gm/dl (6.0-8.3) 08/15/23 08:38 Albumin 4.1 gm/dl (3.4-5.0) 08/15/23 08:38 Procalcitonin 0.03 ng/ml (0-0.5) 08/15/23 08:38 Urine Color Yellow 08/15/23 10:08 Urine Appearance Clear (Clear) 08/15/23 10:08 Urine pH 7.0 (4.5-7.5) 08/15/23 10:08 Ur Specific [place] 1.028 (1.000-1.030) 08/15/23 10:08 Urine Protein Negative (Negative) 08/15/23 10:08 Urine Glucose (UA) 3+ (Negative) H 08/15/23 10:08 Urine Ketones 1+ (Negative) H 08/15/23 10:08 Urine Blood Negative (Negative) 08/15/23 10:08 Urine Nitrite Negative (Negative) 08/15/23 10:08 Urine Bilirubin Negative (Negative) 08/15/23 10:08 Urine Urobilinogen Negative (Negative) 08/15/23 10:08 Ur Leukocyte Esterase Negative (Negative) 08/15/23 10:08 Adenovirus (PCR) Not Detected (NotDetected) 08/15/23 09:47 B. pertussis DNA (PCR) Not Detected (NotDetected) 08/15/23 09:47 B.parapertussis DNA PCR Not Detected (NotDetected) 08/15/23 09:47 C. pneumoniae DNA (PCR) Not Detected (NotDetected) 08/15/23 09:47 Coronavirus OC43 (PCR) Not Detected (NotDetected) 08/15/23 09:47 Coronavirus HKU1 (PCR) Not Detected (NotDetected) 08/15/23 09:47 Coronavirus 229E (PCR) Not Detected (NotDetected) 08/15/23 09:47 SARS-CoV-2 (PCR) Not Detected (NotDetected) 08/15/23 09:47 Coronavirus NL63 (PCR) Not Detected (NotDetected) 08/15/23 09:47 Human Metapneumovir PCR Not Detected (NotDetected) 08/15/23 09:47 Influenza Type A (PCR) Not Detected (NotDetected) 08/15/23 09:47 Influenza Type B (PCR) Not Detected (NotDetected) 08/15/23 09:47 M. pneumoniae (PCR) Not Detected (NotDetected) 08/15/23 09:47 Parainfluenza 1 (PCR) Not Detected (NotDetected) 03/31/24 09:47 Parainfluenza 2 (PCR) Not Detected (NotDetected) 08/15/23 09:47 Parainfluenza 3 (PCR) Not Detected (NotDetected) 08/15/23 09:47 Parainfluenza 4 (PCR) Not Detected (NotDetected) 08/15/23 09:47 RSV (PCR) Not Detected (NotDetected) 08/15/23 09:47 Entero/Rhino (PCR) Not Detected (NotDetected) 08/15/23 09:47 Impressions Abdomen/Pelvis CT 08/15/23 08:46 CT SCAN OF THE ABDOMEN AND PELVIS WITHOUT IV CONTRAST CLINICAL HISTORY: Change in mental status. Lethargy. Abdominal distention. COMPARISON STUDY: Abdominal CT dated 09/29/2022. TECHNIQUE: CT scan of the abdomen and pelvis is performed from the lung bases to the proximal femora. Images are reviewed in the axial, sagittal, and coronal planes. IV contrast was not administered for this examination. Note that the examination is significantly suboptimal without oral and IV contrast. The examination is also degraded by motion artifact as well as streak artifact from the arms which could not be elevated above the abdomen. A dose lowering technique was utilized adhering to the principles of ALARA. CT DOSE: 1280.84 mGy.cm FINDINGS: Lung bases: The heart is normal in size and without pericardial effusion. There is airspace consolidation at the left lung base. Atelectasis is noted at the right lung base. No pleural effusion is identified. The distal the stomach is distended, mildly thick-walled, and filled with fluid. Liver: The unenhanced liver is normal in size, contour, and attenuation. There is no intrahepatic biliary ductal dilatation. Gallbladder: Unremarkable. Spleen: Normal in size and attenuation. Pancreas: Unremarkable. Adrenal glands: Thickening of the adrenal glands is similar to previous. Kidneys: The unenhanced kidneys are normal in size and without hydronephrosis. There are no renal calculi identified. There is no evidence of contour deforming renal mass lesion. Abdominal vasculature: The abdominal aorta is normal in course and caliber noting scattered foci of atherosclerotic calcification. Bowel: The stomach is markedly distended and fluid-filled. There is focal narrowing of the duodenum as it passes anterior to the aorta. The small bowel loops are normal in caliber. The colon is distended and there is severe constipation. The right colon measures up to 11 cm in diameter. The appendix is normal as imaged. Peritoneum: There is no intraperitoneal free air or abdominal ascites. Lymphadenopathy: None. Pelvic viscera: The bladder is mildly distended but otherwise normal in appearance. The uterus and adnexa are normal as imaged. Skeletal structures: The skeletal structures are osteopenic. There is a mild chronic compression deformity of L1. No lytic or blastic lesions are seen. Chronic deformity and postsurgical changes noted in the right proximal femur. There is a subacute to chronic appearing fracture through the greater trochanter of the left proximal femur. There are chronic/healed bilateral rib fractures. IMPRESSION: 1. Significantly suboptimal examination without oral and IV contrast. There is also significant streak and motion artifact. 2. The stomach is markedly distended and fluid-filled. There is focal narrowing of the duodenum as it crosses anterior to the abdominal aorta, and the small bowel loops are normal in caliber. This could represent a gastric outlet obstruction or possibly a duodenal obstruction such as with SMA syndrome. This is similar in appearance to the 09/29/2022 examination. 3. There is colonic distention and severe constipation. This has also been seen previously. 4. The distal esophagus is distended, mildly thick walled, and filled with fluid. Note that this may place the patient at risk for aspiration. 5. Airspace consolidation at the left lung base could represent atelectasis versus pneumonia/aspiration pneumonitis. Correlate clinically. 6. Additional findings as above. ACT 112: Negative or not required by law. Electronically signed by: Carlos Savage M.D. 08/15/2023 9:[address] 08/15/23 08:46 CT SCAN OF THE BRAIN WITHOUT IV CONTRAST CLINICAL HISTORY: Change in mental status. COMPARISON STUDY: Prior CT scans of the brain, most recently dated 06/11/2023 TECHNIQUE: Unenhanced axial CT scan of the brain is performed from the vertex to the skull base. A dose lowering technique was utilized adhering to the principles of ALARA. FINDINGS: Brain parenchyma: There is age-related involutional change noting mild subcortical and periventricular microangiopathic disease. There is no hemorrhage, mass effect, or evidence of acute territorial ischemia by CT criteria. Fernandez-white matter differentiation is preserved. No extra-axial fluid collection is seen. Ventricles, sulci, cisterns: Prominent secondary to involutional change. Ventriculomegaly is similar to previous. Intracranial vasculature: There is atherosclerotic calcification of the cavernous carotid arteries. Calvarium: Unremarkable. Sinuses and mastoids: The visualized paranasal sinuses are clear. The mastoid air cells are well pneumatized. Orbits: The bony orbits are grossly intact. IMPRESSION: 1. There is no hemorrhage, mass effect, or evidence of acute territorial ischemia by CT criteria. 2. Ventriculomegaly is unchanged. ACT 112: Negative or not required by law.\ Electronically signed by: Carlos Savage M.D. 08/15/2023 9:11 AM Chest X-Ray 08/15/23 10:30 SINGLE VIEW CHEST CLINICAL HISTORY: Enteric tube placement. FINDINGS: An AP, portable, upright chest radiograph is compared to study performed earlier the same day 08/15/2023. An enteric tube has been placed. The tip projects below the diaphragm over the mid to distal stomach. The cardiomediastinal silhouette is unremarkable. There is persistent gaseous distention of the stomach with elevation of the left hemidiaphragm. Scarring/atelectasis is seen at both lung bases. Chronic interstitial thickening is previous. No airspace consolidation or large pleural effusion is identified. No pneumothorax is seen. The skeletal structures are osteopenic. The bony thorax is grossly intact. IMPRESSION: 1. Enteric tube placement as above. 2. No acute cardiopulmonary abnormality is identified. 3. There is persistent gaseous distention of the stomach. ACT 112: Negative or not required by law. Electronically signed by: Carlos Savage M.D. 08/15/2023 11:08 AM KUB X-Ray 08/22/23 07:00 XR KUB/Abdomen 1 view CLINICAL HISTORY: constipation TECHNIQUE: 1 view of the abdomen was obtained. Comparison: Comparison is made to chest radiograph 08/20/2023 FINDINGS: Lung bases are unremarkable. Degenerative changes are seen in the visualized skeleton. The bowel gas pattern is nonobstructive. Large rectal stool burden is seen. Right femoral medullary aston is partially seen. IMPRESSION: Large rectal stool burden is noted. No definite radiographic findings of inspissation however this cannot be entirely excluded. ACT 112: Negative or not required by law. Electronically signed by: Omari Ramirez M.D. 08/22/2023 6:12 PM Ordered Studies 08/15/23 08:46 CT abd pelvis wo con Stat CT head/brain wo con Stat Hospital Course (1) Gastric distention: This is a 63 y/o female from [facility] with hx seizures, ambulatory dysfunction, cognitive dysfunction, schizophrenia w/ auditory hallucinations, DM2, and other history as outlined below who was brought to the ED today with lethargy and somnolence. Work-up in the ED shows marked gastric distention with fluid in the esophagus putting the patient at risk for aspiration. CT shows left lung base infiltrate representing possible aspiration pneumonitis. Also noted is marked colonic distention and severe constipation with a right colon diameter of up to 11 cm. UA negative for infection, resp panel negative GOO/possible duodenal obstruction --CT ABD:Significantly suboptimal examination without oral and IV contrast. There is also significant streak and motion artifact. The stomach is markedly distended and fluid-filled. There is focal narrowing of the duodenum as it crosses anterior to the abdominal aorta, and the small bowel loops are normal in caliber. This could represent a gastric outlet obstruction or possibly a duodenal obstruction such as with SMA syndrome. This is similar in appearance to the 09/29/2022 examination. There is colonic distention and severe constipation. This has also been seen previously. The distal esophagus is distended, mildly thick walled, and filled with fluid. Note that this may place the patient at risk for aspiration. Airspace consolidation at the left lung base could represent atelectasis versus pneumonia/aspiration pneumonitis. Correlate clinically. --KUB on ON 08/17/23:No significant gastric bubble is seen. There is prominent colonic gas and stool burden. -- Conservative management NG tube discontinued Continue bowel regimen IV fluids as needed Encouraged to ambulate Appreciate surgery input Advance to low fiber diet Had BMs Plan to be discharged today (2) Metabolic encephalopathy: Possible aspiration --CT Head:There is no hemorrhage, mass effect, or evidence of acute territorial ischemia by CT criteria. Ventriculomegaly is unchanged. Completed Unasyn course Reorient frequently (3) Sepsis: Likely secondary to aspiration pneumonia Completed Unasyn course Monitor (4) Aspiration pneumonia: Management as above (5) DMII (diabetes mellitus, type 2): Chronic, recent med changes as noted in the HPI. Holding oral medications at present. HbA1c 6.3 Monitor blood glucose levels Insulin while hospitalized (6) Schizophrenia: Chronic, stable Continue home medications (7) Seizure disorder: Chronic, stable Continue home medications (8) Colon distention: Surgery consult as above Chronic issues with constipation - on stool softener and Miralax as outpatient. Continue bowel regimen as above (9) Generalized weakness: PT OT Fall precautions Plan DVT Px Lovenox SQ Code Status: Full code Disposition Alicia Delgado Total Time Total Time Spent Total Time Spent (In Minutes): 57 minutes Discharge Plan Discharge Items Patient Disposition: Personal Skilled Nursing Reason For Visit: lethargy, somnolence Discharge Diagnosis: Gastric outlet obstruction--resolved Chronic constipation Aspiration pneumonia Condition on Discharge: Serious Activity: Per Instructions section Exercise/Sports: Gradually increase as tolerated Non-emergency contact: Primary Care Provider Call non-emergency contact if: you have any medication questions, your symptoms worsen and your pain is concerning for you Follow-up/Referrals: Delmy Jacobsen PA-C [Primary Care Provider] - Diet: Carb Consistent or DM2 and Low Fiber Addtl Attending Provider Instructions: Follow-up with your primary care physician Delmy Jacobsen PA-C in 1 week --Monitor for regular bowel movements. Ensure hydration with increased oral fluid intake. Encouraged to ambulate. -- Low fiber diet for now until follow-up with your primary care physician. Follow-up with your physician for further recommendations. Seek immediate medical attention if your symptoms reoccur or worsen Please take all medications as instructed on discharge list below. Please call if you have any questions or problems. You can reach a [facility] hospitalist on duty at [facility] 24 hours a day by calling [phone] Pending Studies at Discharge: No Stand-Alone Forms: My [facility] [place], Smoking Cessation Skilled Items Patient informed of condition?: Yes DNR: No Discharge Level of Care: Other Communicable Disease: No Discharge Prognosis: Stable Lines: None Urinary Catheter: No Medications and DC Order Prescriptions: New bisacodyl 10 mg Suppository 10 mg [place] DAILY PRN (Reason: constipation) Qty: 30 0RF Continued phenytoin sodium extended [Dilantin Extended] 100 mg capsule 200 mg PO BID 90 Days Qty: 360 3RF levetiracetam [Keppra] 250 mg tablet 250 mg PO BID 90 Days Qty: 180 1RF fluticasone propionate 50 mcg/actuation spray,suspension 2 sprays INTNAS QPM atorvastatin 40 mg tablet 40 mg PO HS glimepiride 2 mg tablet 2 mg PO BID Women's One Daily 18 mg iron-400 mcg-500 mg Ca Tablet 1 tab PO QAM vitamin B complex Tablet 1 tab PO QAM polyethylene glycol 3350 [Miralax] 17 gram powder in packet 17 g PO BID Rx Instructions: HOLD IF HAS DIARRHEA ammonium lactate 12 % cream 1 applic TOPICAL QAM Rx Instructions: Apply to feet. docusate sodium [Colace] 100 mg Capsule 100 mg PO BID clozapine 200 mg tablet 600 mg PO DAILY@2000 glimepiride 1 mg Tablet 1 mg PO DIRECTED PRN (Reason: BSG >300.) triamcinolone acetonide 0.1 % cream 1 applic TOPICAL BID PRN (Reason: Rash) Rx Instructions: apply to right buttocks prn rash valacyclovir 500 mg Tablet 500 mg PO DAILY calcium citrate-vitamin D3 [Calcium Citrate + D] 315 mg-5 mcg (200 unit) Tablet 2 tab PO QAM Qty: 0 Rx Instructions: two tablets daily albuterol sulfate [Ventolin HFA] 90 mcg/actuation Hfa Aerosol Inhaler 2 puff inhalation QIDR PRN (Reason: shortness of breath or wheezing) Qty: 6.7 0RF dextromethorphan-guaifenesin [Robitussin Cough-Chest Samm DM] 5-100 mg/5 mL Liquid 10 ml PO Q6H PRN (Reason: cough) Qty: 118 0RF famotidine 40 mg tablet 40 mg PO HS Glucerna Liquid 1 ea PO BID Rx Instructions: Offer bid diphenhydramine HCl [Benadryl Allergy] 25 mg Tablet 25 mg PO .Q4-6 PRN (Reason: .allergy) Mucinex DM 30-600 mg Tablet Extended Release 12 Hr 1 - 2 tab PO Q12H PRN (Reason: Nasal Congestion) acetaminophen [Tylenol Extra Strength] 500 mg tablet 1,000 mg PO Q8H PRN (Reason: Pain) Tradjenta 5 mg tablet 5 mg PO DAILY Discharge Orders: Discharge Order (Routine); Ordered 08/23/23 Ordered By: Cm Rollins/Other Patient Handouts: Managing Type 2 Diabetes Admission Data Admit Date/Time: 08/15/23 11:34 Attending Provider: Cm Moreland Admit Provider: Cierra Dao Primary Care Provider: Delmy Jacobsen Other Providers: Lexis Garcia
== END 2023-08-23 14:41 | disposition home or self-care (01) | DRG 871 ==
LOC: ED 08:24 → SUATTDRO 11:34 → 2N 11:34 → 3E 08-21 15:12
DX: G93.41 Metabolic encephalopathy; E11.65 Type 2 diabetes mellitus with hyperglycemia; J69.0 Pneumonitis due to inhalation of food and vomit; Z79.84 Long term (current) use of oral hypoglycemic drugs; F20.9 Schizophrenia, unspecified; G40.909 Epilepsy, unspecified, not intractable, without status epilepticus; E87.20 Acidosis, unspecified; A41.9 Sepsis, unspecified organism; Z88.6 Allergy status to analgesic agent; K31.1 Adult hypertrophic pyloric stenosis

== ENCOUNTER 2023-09-15 14:56 | Inpatient (IN) ==
--- NOTE | 2023-09-15 15:55 | XRay Report ---
SINGLE VIEW CHEST CLINICAL HISTORY: Near syncope FINDINGS: 2 AP upright chest radiographs are compared to study dated 08/15/2023. The cardiomediastinal silhouette is unremarkable. There is chronic elevation of the left hemidiaphragm. Atelectasis is not ed at both lung bases. No airspace consolidation or large pleural effusion is identified. The lungs a nd pleural spaces are clear. No pneumothorax is seen. The skeletal structures are osteopenic. There a re chronic/healed left-sided rib fractures. There is gaseous distention of the stomach. IMPRESSION: 1. No acute cardiopulmonary abnormality. 2. Marked gaseous distention of the stomach is similar to prior studies. ACT 112: Negative or not required by law. Electronically signed by: Carlos Savage M.D. 09/15/2023 3:54 PM
[2023-09-15 16:14] LABS: Basophils # (auto) 0.02 K/uL (0.00-0.20); Basophils % (auto) 0.2 %; Hematocrit (blood only) 41.6 % (37.0-47.0); Hemoglobin 14.2 g/dl (12.0-16.0); Immature Granulocytes # (auto) 0.04 K/uL (0.01-0.20); Immature Granulocytes % (auto) 0.5 %; Lymphocytes # (auto) 0.82 K/uL (1.20-3.40); Lymphocytes % (auto) 9.6 %; Mean Corpuscular Hemoglobin 32.1 pg (25.0-34.0); Mean Corpuscular Hgb Conc 34.1 g/dL (32.0-36.0); Mean Corpuscular Volume 94.1 fL (80.0-100.0); Mean Platelet Volume 11.4 fL (9.4-12.4); Monocytes # (auto) 0.64 K/uL (0.11-0.59); Monocytes % (auto) 7.5 %; Neutrophils % (auto) 82.2 %; Platelet Count 171 K/uL (130-400); RDW Standard Deviation 52.7 fL (36.4-46.3); Red Blood Count 4.42 M/uL (4.20-5.40); White Blood Count 8.52 K/ul (4.8-10.8)
[2023-09-15 16:26] LABS: Partial Thromboplastin Ratio 0.9; Partial Thromboplastin Time 23 Seconds (21-31); Prothrombin Time 10.5 Seconds (9.0-12.0)
[2023-09-15 16:38] LABS: Alanine Aminotransferase 46 U/L (7-52); Albumin Globulin Ratio 1.5 (0.9-2); Albumin Level 4.5 gm/dl (3.4-5.0); Alkaline Phosphatase 135 U/L (34-104); Anion Gap 7 (3-11); Aspartate Aminotransferase 24 U/L (13-39); BUN Creatinine Ratio 32.3 (10-20); Bilirubin,Total 0.3 mg/dl (0.2-1.0); Blood Urea Nitrogen 21 mg/dl (6-23); Calcium 9.4 mg/dl (8.6-10.3); Carbon Dioxide 27 mmol/L (21-32); Chloride 104 mmol/L (98-107); Est GFR (African American) 111.1 ml/min; Est GFR (Non-African American) 95.8 ml/min; Glucose 340 mg/dl (70-99(Fasting)); Potassium 4.6 mmol/L (3.5-5.1); Sodium 138 mmol/L (136-145); Total Protein 7.5 gm/dl (6.0-8.3)
[2023-09-15 16:45] LABS: Troponin I High Sensitivity < 2.3 pg/ml (0-14)
--- NOTE | 2023-09-15 18:36 | Emergency Department Note ---
History of Present Illness General Chief complaint: Leg Injury/Pain Stated complaint: FALL, LEG PAIN, COMPLAIN OF NOT BEING ABLE TO WALK Time Seen by Provider: 09/15/23 18:14 Source: patient, RN notes reviewed, old records reviewed (08/23/23-discharge summary for when she was here for altered mental status and infection) and other (Caregiver who is at the bedside) Mode of arrival: ambulatory Limitations: no limitations History of Present Illness Maximum Pain Intensity: 5 This patient is a 63-year-old female who has a history of paranoid schizophrenia, diabetes, seizures, comes in after they are concerned that she is weak and dizzy and lethargic compared to baseline. She has not had a bowel movement since yesterday. She presented with similar type symptoms about a month ago and they were concerned. She had no definite fever she was at work today got dizzy and fell they do not think she injured anything although she is complaining her legs hurt she points to her knees. No new medication or change in medications that control her medications there she has not been vomiting. She is unable to give a reliable history Home Medications Medication Instructions Recorded Confirmed Type atorvastatin 40 mg tablet 40 mg PO HS 07/17/18 09/15/23 History glimepiride 2 mg tablet 2 mg PO BID 07/17/18 09/15/23 History multivit-iron 18 mg-folic acid 400 1 tab PO QAM 07/17/18 09/15/23 History mcg-calcium 500 mg-minerals tablet (Women's One Daily) vitamin B complex 1 tab PO QAM 08/25/18 09/15/23 History fluticasone propionate 50 2 sprays intranasal QPM 02/15/19 09/15/23 History mcg/actuation nasal spray,suspension ammonium lactate 12 % topical cream 1 applic topical QAM 05/21/19 09/15/23 History docusate sodium 100 mg capsule 100 mg PO BID 05/21/19 09/15/23 History (Colace) triamcinolone acetonide 0.1 % 1 applic topical BID PRN Rash 07/10/21 09/15/23 History topical cream clozapine 200 mg tablet 600 mg PO DAILY@199910/31/21 09/15/23 History valacyclovir 500 mg tablet 500 mg PO DAILY 02/18/22 09/15/23 History glimepiride 1 mg tablet 1 mg PO DIRECTED PRN BSG >300. 10/14/22 09/15/23 History polyethylene glycol 3350 17 gram 17 g PO BID 10/19/22 09/15/23 History oral powder packet (Miralax) calcium citrate 315 mg-vitamin D3 2 tab PO QAM ##0 02/11/23 09/15/23 History 5 mcg (200 unit) tablet (Calcium Citrate + D) albuterol sulfate 90 mcg/actuation 2 puff inhalation QIDR PRN 03/03/23 09/15/23 Rx aerosol inhaler (Ventolin HFA) shortness of breath or wheezing #6.7 grams dextromethorphan-guaifenesin 5 10 ml PO Q6H PRN cough #118 mL 03/03/23 09/15/23 Rx mg-100 mg/5 mL oral liquid (Robitussin Cough-Chest Congestion DM) acetaminophen 500 mg tablet 1,000 mg PO Q6 PRN Pain 06/07/23 09/15/23 History (Tylenol Extra Strength) dextromethorphan-guaifenesin 30 1 - 2 tab PO Q12H PRN Nasal 06/07/23 09/15/23 History mg-600 mg tablet extended Congestion [id number] hr (Mucinex DM) diphenhydramine HCl 25 mg tablet 25 mg PO .Q4-6 PRN .allergy 06/07/23 09/15/23 History (Benadryl Allergy) famotidine 40 mg tablet 40 mg PO HS 06/07/23 09/15/23 History nut.tx.gluc.intol,lac-free,soy 1 ea PO BID 06/07/23 09/15/23 History (Glucerna oral liquid) linagliptin 5 mg tablet (Tradjenta) 5 mg PO DAILY 08/15/23 09/15/23 History bisacodyl 10 mg rectal suppository 10 mg OK DAILY PRN constipation 08/23/23 09/15/23 Rx #30 ea levetiracetam 250 mg tablet 250 mg PO BID 90 days #180 tabs 08/30/23 09/15/23 Rx (Keppra) phenytoin sodium extended 100 mg 200 mg (2 x 100 mg) PO BID 90 days 08/30/23 09/15/23 Rx capsule (Dilantin Extended) #360 caps Allergies Allergy/AdvReac Type Severity Reaction Status Date / Time divalproex sodium Allergy Unknown Unknown Verified 09/15/23 22:03 [From Depakote] salicylates Allergy Unknown Unknown Verified 09/15/23 22:03 valproic acid Allergy Unknown Unknown Verified 09/15/23 22:03 aspirin AdvReac Severe STOMACH Verified 09/15/23 22:03 ULCER BLEEDING Past Med/Surg History Medical History Seizure disorder GERD (gastroesophageal reflux disease) Acute metabolic encephalopathy Head injury Fall Acute alteration in mental status Elevated lactic acid level Weakness AMS (altered mental status) DMII (diabetes mellitus, type 2) HSV (herpes simplex virus) anogenital infection Complex partial seizure Depression with anxiety Heart murmur Onychomycosis Hypertension Schizophrenia Surgical History History of colonoscopy Family History Mother Diabetes Other Seizures Social History Smoking Status: Never smoker Preferred Language: Danish Communication Ability: Effective Communication Ability Comment: Intellectual Disability Visual Impairment: No Limitations Hearing Ability: Normal Channel Lip Wetter Required: No Beliefs That Will Affect Care: None marital status: Single Current Living Situation: Other Current Living Situation Comment: prison current occupational status: disabled Feels Safe at Home: Yes Assistive Devices: Walker Review of Systems Unobtainable due to cognitive status Physical Exam Vital Signs Vital Signs - 24 hr 09/15/23 15:15 09/15/23 19:38 09/15/23 20:00 Temperature 36.8 C Temperature Source Temporal Artery Scan Pulse Rate 103 H 87 Pulse Rate [Apical] 89 Respiratory Rate 18 18 Respiratory Effort / Characteristics Non-Labored Spontaneous Non-Labored Spontaneous Respiratory Depth Normal Normal Respiratory Pattern Regular Blood Pressure 103/71 Blood Pressure [Right Arm] 122/69 Blood Pressure Mean 81 Blood Pressure Mean [Right Arm] 86 Blood Pressure Position Sitting Blood Pressure Position [Right Arm] Lying Pulse Oximetry 98 100 Oxygen Delivery Method Room Air Room Air Sepsis Recent Fever Within 48 Hours No Sepsis New/Unexplained Change in Mental Status No Sepsis Action Taken by Nursing No Action Required General: Well developed well nourished middle-age female who is sitting in a wheelchair and appears in no acute distress, breathing comfortably on room air. Normal speech, she speaks few words and speaks very slowly which is baseline according to caregiver. No slurring of speech. HEENT: Normal cephalic atraumatic. Pupils are equal round and reactive to light. Extraocular movements are intact. Oropharynx is pink with moist mucous membranes. No swelling of the mouth lips or tongue. Neck: Supple with a midline trachea. No meningeal signs or stiffness, no JVD or bruits. No Stridor. Chest: Clear to auscultation bilaterally. No wheezes or rhonchi. No increased work of breathing. Heart: Regular rate and rhythm without murmurs or gallops. Abdomen: Soft nontender, nondistended without rebound guarding or rigidity. Extremities: No cyanosis clubbing or edema. No calf tenderness or assymetry. She complains that her legs hurt and points to the knees. Her legs are not shortened or rotated when I move the hips they do not seem to cause any pain. There is no redness or warmth or swelling to the legs Spine/Back. Non tender to palpation. No CVA tenderness Skin: Good turgor without rashes. Neurologic exam: Cranial nerves two through 12 are intact. Motor and sensation are intact and symmetrical throughout. Course Administered Medications Atorvastatin Calcium (Atorvastatin 40 Mg Tab) 40 mg PO HS DELMI Stop: 10/15/23 22:19 Last Admin: 09/15/23 23:26 Dose: 40 mg Documented By: YAYA Clozapine (Clozapine 100 Mg Tab) 600 mg PO DAILY@2000 DELMI Stop: 10/15/23 22:44 Last Admin: 09/15/23 23:30 Dose: 600 mg Documented By: YAYA Famotidine (Famotidine 40 Mg Tablet) 40 mg PO HS DELMI Stop: 10/15/23 22:19 Last Admin: 09/15/23 23:26 Dose: 40 mg Documented By: YAYA Fluticasone Propionate (Fluticasone Propionate Na Spr 16 Gm Btl) 2 sprays NA QPM DELMI Stop: 10/15/23 22:19 Last Admin: 09/15/23 23:25 Dose: 2 sprays Documented By: YAYA Lactated Ringer's (Lr) 1,000 mls @ 200 mls/hr IV .Q5H ONE Stop: 09/16/23 04:59 Last Infusion: 09/16/23 01:13 Dose: 0 mls/hr Documented By: Admin: 09/16/23 00:20 Dose: 200 mls/hr Documented By: YAYA Insulin Aspart (Insulin Aspart Per Unit Charge) 0 units SC ACHS DELMI Stop: 10/15/23 21:14 Last Admin: 09/15/23 22:04 Dose: 2 units Documented By: GLENN Co-signed By: KG Levetiracetam (Levetiracetam 250 Mg Tab) 250 mg PO BID DELMI Stop: 10/15/23 22:29 Last Admin: 09/15/23 23:29 Dose: 250 mg Documented By: YAYA Polyethylene Glycol (Polyethylene (Miralax) 17 Gm Pack) 17 gm PO BID DELMI Stop: 10/15/23 22:29 Last Admin: 09/15/23 23:30 Dose: 17 gm Documented By: YAYA Senna/Docusate Sodium (Docusate Sodium/Senna 50/8.6mg Tab) 1 tab PO BID DELMI Stop: 10/15/23 22:29 Last Admin: 09/15/23 23:26 Dose: 1 tab Documented By: YAYA Discontinued Medications Sodium Chloride (Nss) 1,000 mls @ 500 mls/hr IV .Q2H ONE Stop: 09/15/23 23:14 Last Infusion: 09/16/23 01:13 Dose: 0 mls/hr Documented By: Admin: 09/15/23 22:04 Dose: 100 mls/hr Documented By: GLENN Insulin Glargine (Lantus Per Unit Charge) 5 units SQ NOW STA Stop: 09/15/23 21:14 Last Admin: 09/15/23 22:04 Dose: Not Given Documented By: GLENN Ioversol (Optiray 320 100ml) 995 ml IV ONCE ONE Stop: 09/15/23 19:02 Last Admin: 09/15/23 20:25 Dose: Not Given Documented By: GLENN Ioversol (Optiray 320 100ml) 95 ml IV ONCE ONE Stop: 09/15/23 19:04 Last Admin: 09/15/23 19:03 Dose: 95 ml Documented By: ATTILA Medical Decision Making Differential Diagnosis Infection, toxicologic, metabolic, trauma, electrolyte or metabolic abnormality Medical Records Attestation: I reviewed the patient's medical records. Home Medications Current Medication List: was personally reviewed by me Laboratory Data Attestation: I reviewed the patient's lab results. 09/15/23 16:03 09/15/23 16:03 Lab Results 09/15/23 09/15/23 09/15/23 Range/Units 16:03 20:32 20:36 WBC 8.52 (4.8-10.8) K/ul RBC 4.42 (4.20-5.40) M/uL Hgb 14.2 (12.0-16.0) g/dl Hct 41.6 (37.0-47.0) % MCV 94.1 (80.0-100.0) fL MCH 32.1 (25.0-34.0) pg MCHC 34.1 (32.0-36.0) g/dL RDW Std Deviation 52.7 H (36.4-46.3) fL RDW Coeff of Liliana 15.0 H (11.5-14.5) % Plt Count 171 (130-400) K/uL MPV 11.4 (9.4-12.4) fL Immature Gran % (Auto) 0.5 % Neut % (Auto) 82.2 % Lymph % (Auto) 9.6 % Haywood % (Auto) 7.5 % Eos % (Auto) 0.0 % Baso % (Auto) 0.2 % Neut # (Auto) 7.00 H (1.40-6.50) K/uL Lymph # (Auto) 0.82 L (1.20-3.40) K/uL Haywood # (Auto) 0.64 H (0.11-0.59) K/uL Eos # (Auto) 0.00 (0.00-0.50) K/uL Baso # (Auto) 0.02 (0.00-0.20) K/uL Immature Gran # (Auto) 0.04 (0.01-0.20) K/uL PT 10.5 (9.0-12.0) Seconds INR 1.0 (0.9-1.1) APTT 23 (21-31) Seconds PTT Ratio 0.9 Sodium 138 (136-145) mmol/L Potassium 4.6 (3.5-5.1) mmol/L Chloride 104 (98-107) mmol/L Carbon Dioxide 27 (21-32) mmol/L Anion Gap 7 (3-11) BUN 21 (6-23) mg/dl Creatinine 0.65 (0.6-1.2) mg/dl Est Cr Clr Drug Dosing Not Reportable Est GFR ( Amer) 111.1 ml/min Est GFR (Non-Af Amer) 95.8 ml/min BUN/Creatinine Ratio 32.3 H (10-20) Glucose 340 H* (70-99(Fasting)) mg/dl Estimat Average Glucose 105 mg/dl Hemoglobin A1c 5.3 (4.5-5.6) % Lactate 2.4 H* (0.4-2.0) mmol/L Calcium 9.4 (8.6-10.3) mg/dl Total Bilirubin 0.3 (0.2-1.0) mg/dl AST 24 (13-39) U/L ALT 46 (7-52) U/L Alkaline Phosphatase 135 H (34-104) U/L Total Creatine Kinase 54 (26-192) U/L Troponin I High Sens < 2.3 (0-14) pg/ml Total Protein 7.5 (6.0-8.3) gm/dl Albumin 4.5 (3.4-5.0) gm/dl Globulin 3.0 (2.5-4.0) gm/dl Albumin/Globulin Ratio 1.5 (0.9-2) Lipase 70 (11-82) U/L Imaging Data Attestation: I personally reviewed and interpreted this imaging study as follows: My Impression: Chest x-rayno acute infiltrate, failure, pneumothorax seen. There is a dilated stomach bubble Radiologist's Impression: Chest X-Ray 09/15/23 15:21 SINGLE VIEW CHEST CLINICAL HISTORY: Near syncope FINDINGS: 2 AP upright chest radiographs are compared to study dated 08/15/2023. The cardiomediastinal silhouette is unremarkable. There is chronic elevation of the left hemidiaphragm. Atelectasis is noted at both lung bases. No airspace consolidation or large pleural effusion is identified. The lungs and pleural spaces are clear. No pneumothorax is seen. The skeletal structures are osteopenic. There are chronic/healed left-sided rib fractures. There is gaseous distention of the stomach. IMPRESSION: 1. No acute cardiopulmonary abnormality. 2. Marked gaseous distention of the stomach is similar to prior studies. ACT 112: Negative or not required by law. Electronically signed by: Carlos Savage M.D. 09/15/2023 3:54 PM Abdomen/Pelvis CT 09/15/23 18:25 Exam(s): CT ABDOMEN + PELVIS With Contrast IV Amt: 95 ml optiray 320 EXAM: CT Abdomen and Pelvis With Intravenous Contrast CLINICAL HISTORY: Reason for exam: fall. TECHNIQUE: Axial computed tomography images of the abdomen and pelvis with intravenous contrast. CTDI is 15.23 mGy and DLP is 861.22 mGy-cm. Automated exposure control was utilized for the study. A dose lowering technique was utilized adhering to the principles of ALARA. CONTRAST: Patient received 95 ml optiray 320 of IV contrast COMPARISON: 08/15/23 FINDINGS: Lung bases are clear. Distal esophagus is distended with gas. Seen on prior CT, there is marked distention of the stomach and duodenum. There is narrowing of the duodenum as it passes between the aorta and SMA, but duodenum and jejunum distal to this level are also distended. There is increased colonic stool burden. There is no mucosal thickening. Appendix is not identified on today's exam, but there are no secondary signs of appendicitis. Liver, gallbladder, spleen, pancreas, adrenal glands, and kidneys are within normal limits. There is no aortic aneurysm or adenopathy. There is no evidence of vascular injury. There is no free air or significant free fluid. Patient has undergone prior ORIF of the right femur. Bones are osteopenic. There is a chronic mild L1 superior endplate compression fracture. There is no acute fracture or dislocation. IMPRESSION: 1. Again demonstrated is distention of the stomach and duodenum. There is narrowing of the duodenum as it passes between the aorta and SMA, but small bowel distal to this level is also distended. Findings may represent ileus, gastroenteritis, or gastroparesis. 2. No acute traumatic findings. 3. Constipation. Electronically signed by: Kyle Laguna M.D. 09/15/23 19:[address] 09/15/23 18:25 Exam(s): CT HEAD Without Contrast EXAM: CT Head Without Intravenous Contrast CLINICAL HISTORY: Reason for exam: fall. TECHNIQUE: Axial computed tomography images of the head/brain without intravenous contrast. CTDI is 34.3 mGy and DLP is 547.75 mGy-cm. Automated exposure control was utilized for the study. A dose lowering technique was utilized adhering to the principles of ALARA. COMPARISON: 08/15/23 FINDINGS: Brain: Patchy hypodensities in the periventricular and deep cerebral white matter suggesting chronic small vessel ischemic disease. Fernandez- white matter differentiation maintained. No hemorrhage, mass-effect, or parenchymal edema. Ventricles: Stable ventriculomegaly without evidence of progressive hydrocephalus. Bones/joints: Unremarkable. No acute fracture. Soft tissues: Unremarkable. Vasculature: Intracranial atherosclerosis. Sinuses: Unremarkable as visualized. No acute sinusitis. Mastoid air cells: Unremarkable as visualized. No mastoid effusion. IMPRESSION: No acute intracranial process. Electronically signed by: Kyle Laguna M.D. 09/15/23 19:22 PM ECG Data Attestation: I personally reviewed and interpreted this ECG as follows: Indication: + weakness Rate (beats per minute): 97 Rhythm: + normal sinus ECG Intervals/blocks: + Normal QRS, + Normal QT and + Normal OK ECG Ulysses: + Normal ECG ST segments: + Normal ST segments ECG Findings: no PACs or no PVCs Comparison ECG Date: from (08/15/23) Change: no significant change MDM Narrative This patient comes in as scribed above she has weakness and dizziness she also has pain in her legs it seems to be focal to the knees I did order x-rays of the knees. She has no fever white count to suggest infection I did add a lactic acid and blood culture she has been septic before. I did also order a Dilantin level. She seems to be at her baseline normal neurologic exam now she is speaks very few words. Her blood sugar was elevated in the 300s however she has no evidence that she has DKA or any other electrolyte or metabolic abnormality thus far. I did add a CAT scan of her head as well as CAT scan of the abdomen pelvis with IV contrast. She was reassessed frequently. I did also order urinalysis and culture. Her lactic acid is mildly elevated although she is afebrile and has no definite source of infection. Her CAT scan of her head was unremarkable CAT scan of the abdomen shows dilated stomach and small bowel. She has not been vomiting so not sure what the significance of is at this point. I do think she should stay in the hospital for further treatment and evaluation she is difficult to evaluate due to her multiple medical and psychiatric problems. I have discussed the case with Dr. Oconnell in consultation. He saw the patient ER and will admit/observe her for these measures. Continuous cardiac monitoring: Orders placed in EMR for continuous cardiac monitoring: Upon my evaluation she was noted to be in normal sinus rhythm rate of 94 Impression & Plan Weakness, Dizziness, Elevated lactic acid level, Gastric distention, Mental disability Discharge Plan Visit Data Chief Complaint: Leg Injury/Pain Stated Complaint: FALL, LEG PAIN, COMPLAIN OF NOT BEING ABLE TO WALK ED Provider: Hussein Cook Discharge Problem: Weakness, Dizziness, Elevated lactic acid level, Gastric distention, Mental disability Patient Disposition: Admitted As Inpatient Discharge Instructions Interventions: ED Discharge Assessment Last Done: 09/16/23 00:42
[2023-09-15] MEDS: OPTIRAY 320 100ml IV ONE ×2 (19:03→20:25)
--- NOTE | 2023-09-15 19:23 | CT Scan Report ---
Exam(s): CT HEAD Without Contrast EXAM: CT Head Without Intravenous Contrast CLINICAL HISTORY: Reason for exam: fall. TECHNIQUE: Axial computed tomography images of the head/brain without intravenous contrast. CTDI is 34.3 mGy and DLP is 547.75 mGy-cm. Automated exposure control was utilized for the study. A dose lowering technique was utilized adhering to the principles of ALARA. COMPARISON: 08/15/23 FINDINGS: Brain: Patchy hypodensities in the periventricular and deep cerebral white matter suggesting chronic small vessel ischemic disease. Fernandez- white matter differentiation maintained. No hemorrhage, mass-effect, or parenchymal edema. Ventricles: Stable ventriculomegaly without evidence of progressive hydrocephalus. Bones/joints: Unremarkable. No acute fracture. Soft tissues: Unremarkable. Vasculature: Intracranial atherosclerosis. Sinuses: Unremarkable as visualized. No acute sinusitis. Mastoid air cells: Unremarkable as visualized. No mastoid effusion. IMPRESSION: No acute intracranial process. Electronically signed by: Kyle Laguna M.D. 09/15/23 19:22 PM
--- NOTE | 2023-09-15 19:35 | CT Scan Report ---
Exam(s): CT ABDOMEN + PELVIS With Contrast IV Amt: 95 ml optiray 320 EXAM: CT Abdomen and Pelvis With Intravenous Contrast CLINICAL HISTORY: Reason for exam: fall. TECHNIQUE: Axial computed tomography images of the abdomen and pelvis with intravenous contrast. CTDI is 15.23 mGy and DLP is 861.22 mGy-cm. Automated exposure control was utilized for the study. A dose lowering technique was utilized adhering to the principles of ALARA. CONTRAST: Patient received 95 ml optiray 320 of IV contrast COMPARISON: 08/15/23 FINDINGS: Lung bases are clear. Distal esophagus is distended with gas. Seen on prior CT, there is marked distention of the stomach and duodenum. There is narrowing of the duodenum as it passes between the aorta and SMA, but duodenum and jejunum distal to this level are also distended. There is increased colonic stool burden. There is no mucosal thickening. Appendix is not identified on today's exam, but there are no secondary signs of appendicitis. Liver, gallbladder, spleen, pancreas, adrenal glands, and kidneys are within normal limits. There is no aortic aneurysm or adenopathy. There is no evidence of vascular injury. There is no free air or significant free fluid. Patient has undergone prior ORIF of the right femur. Bones are osteopenic. There is a chronic mild L1 superior endplate compression fracture. There is no acute fracture or dislocation. IMPRESSION: 1. Again demonstrated is distention of the stomach and duodenum. There is narrowing of the duodenum as it passes between the aorta and SMA, but small bowel distal to this level is also distended. Findings may represent ileus, gastroenteritis, or gastroparesis. 2. No acute traumatic findings. 3. Constipation. Electronically signed by: Kyle Laguna M.D. 09/15/23 19:35 PM
[2023-09-15] MEDS ORDERED: GLUCOSE 10 TAB/TUBE PO PRN (21:13)
[2023-09-15] MEDS ORDERED: CARBOHYDRATES FOR HYPOGLYCEMIA PO PRN (21:13)
[2023-09-15] MEDS ORDERED: GLUCAGON FOR INJ 1 MG VIAL SQ PRN (21:13)
[2023-09-15] MEDS ORDERED: DEXTROSE 50% 50 ML SYRINGE IV PRN (21:13)
[2023-09-15] MEDS ORDERED: GLUCOSE 40% GEL 15 GM TUBE PO PRN (21:13)
--- NOTE | 2023-09-15 21:45 | History & Physical Report ---
Date of Service September 15, 2023 Assessment & Plan (1) Weakness: Plan: Multifactorial: Hyperglycemia, DM2 on oral medications well-controlled as of hemoglobin A1c of 6.4 last month. Complicated UTI, no sepsis for now Recurrent falls secondary to illness rule out orthostasis Leg pain secondary to recurrent falls rule out bony injury hyperlipidemia, on statin Rx seizure disorder, stable on regimen hx paranoid schizophrenia intellectual impairment Medical telemetry IVF, basal bolus insulin, ISS BG goal 1 10-1 40, carb count coverage, update hemoglobin A1c Urine CS, Ceftriaxone Check orthostatic vitals Follow plain x-ray results Follow Dilantin level (currently a send out test at [facility]), continue home Dilantin dose until results available DVT prophylaxis. Lovenox subcu if no fractures on plain x-rays Full code Patient father requesting updates providers. Mr. Edmond Oneill, contact #[phone]. Secondary contact is Alicia Delgado [phone]. Text document was generated using Sols voice recognition software. It may contain grammatical or spelling errors. Kindly contact undersigned for clarification of any documentation item in question. History of Present Illness Chief Complaint: Weakness, recurrent falls as per caregiver Primary Care Provider: Dr. Esqueda History obtained from patient, caregiver, and records. Limited history from patient secondary to hearing impairment/confusion. 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 Bowel issues resolved with nonoperative management. Patient with recurrent witnessed falls the last few days. No syncopal event. No witnessed seizures. Increased weakness as per Alicia Delgado staff. Possible abdominal pain and leg pain as per staff. Constipation symptoms of 1 day duration as per staff. Patient denies chest pain, SOB symptoms. No recent changes in AED regimen. Patient brought to the ER for evaluation. Medical History as above Surgical History : None Family History : DM Personal/Social history : Non-smoker, no EtOH intake, disabled Allergies Allergy/AdvReac Type Severity Reaction Status Date / Time divalproex sodium Allergy Unknown Unknown Verified 09/15/23 22:03 [From Depakote] salicylates Allergy Unknown Unknown Verified 09/15/23 22:03 valproic acid Allergy Unknown Unknown Verified 09/15/23 22:03 aspirin AdvReac Severe STOMACH Verified 09/15/23 22:03 ULCER BLEEDING Home Medications Medication Instructions Recorded Confirmed Type atorvastatin 40 mg tablet 40 mg PO HS 07/17/18 09/15/23 History glimepiride 2 mg tablet 2 mg PO BID 07/17/18 09/15/23 History multivit-iron 18 mg-folic acid 400 1 tab PO QAM 07/17/18 09/15/23 History mcg-calcium 500 mg-minerals tablet (Women's One Daily) vitamin B complex 1 tab PO QAM 08/25/18 09/15/23 History fluticasone propionate 50 2 sprays intranasal QPM 02/15/19 09/15/23 History mcg/actuation nasal spray,suspension ammonium lactate 12 % topical cream 1 applic topical QAM 05/21/19 09/15/23 History docusate sodium 100 mg capsule 100 mg PO BID 05/21/19 09/15/23 History (Colace) triamcinolone acetonide 0.1 % 1 applic topical BID PRN Rash 07/10/21 09/15/23 History topical cream clozapine 200 mg tablet 600 mg PO DAILY@199910/31/21 09/15/23 History valacyclovir 500 mg tablet 500 mg PO DAILY 02/18/22 09/15/23 History glimepiride 1 mg tablet 1 mg PO DIRECTED PRN BSG >300. 10/14/22 09/15/23 History polyethylene glycol 3350 17 gram 17 g PO BID 10/19/22 09/15/23 History oral powder packet (Miralax) calcium citrate 315 mg-vitamin D3 2 tab PO QAM ##0 02/11/23 09/15/23 History 5 mcg (200 unit) tablet (Calcium Citrate + D) albuterol sulfate 90 mcg/actuation 2 puff inhalation QIDR PRN 03/03/23 09/15/23 Rx aerosol inhaler (Ventolin HFA) shortness of breath or wheezing #6.7 grams dextromethorphan-guaifenesin 5 10 ml PO Q6H PRN cough #118 mL 03/03/23 09/15/23 Rx mg-100 mg/5 mL oral liquid (Robitussin Cough-Chest Congestion DM) acetaminophen 500 mg tablet 1,000 mg PO Q6 PRN Pain 06/07/23 09/15/23 History (Tylenol Extra Strength) dextromethorphan-guaifenesin 30 1 - 2 tab PO Q12H PRN Nasal 06/07/23 09/15/23 History mg-600 mg tablet extended Congestion [id number] hr (Mucinex DM) diphenhydramine HCl 25 mg tablet 25 mg PO .Q4-6 PRN .allergy 06/07/23 09/15/23 History (Benadryl Allergy) famotidine 40 mg tablet 40 mg PO HS 06/07/23 09/15/23 History nut.tx.gluc.intol,lac-free,soy 1 ea PO BID 06/07/23 09/15/23 History (Glucerna oral liquid) linagliptin 5 mg tablet (Tradjenta) 5 mg PO DAILY 08/15/23 09/15/23 History bisacodyl 10 mg rectal suppository 10 mg NE DAILY PRN constipation 08/23/23 09/15/23 Rx #30 ea levetiracetam 250 mg tablet 250 mg PO BID 90 days #180 tabs 08/30/23 09/15/23 Rx (Keppra) phenytoin sodium extended 100 mg 200 mg (2 x 100 mg) PO BID 90 days 08/30/23 09/15/23 Rx capsule (Dilantin Extended) #360 caps Past Med/Surg History Medical History Seizure disorder GERD (gastroesophageal reflux disease) Acute metabolic encephalopathy Head injury Fall Acute alteration in mental status Elevated lactic acid level Weakness AMS (altered mental status) DMII (diabetes mellitus, type 2) HSV (herpes simplex virus) anogenital infection Complex partial seizure Depression with anxiety Heart murmur Onychomycosis Hypertension Schizophrenia Surgical History History of colonoscopy Family History Mother Diabetes Other Seizures Social History Smoking Status: Never smoker Preferred Language: Arabic Communication Ability: Effective Communication Ability Comment: Intellectual Disability Visual Impairment: No Limitations Hearing Ability: Normal Debt Management Counselor Required: No Beliefs That Will Affect Care: None marital status: Single Current Living Situation: Other Current Living Situation Comment: jail current occupational status: disabled Feels Safe at Home: Yes Assistive Devices: Walker Review of Systems Review of Systems: Could not be reliably obtained secondary to hearing impairment/confusion Physical Exam Physical Exam: GENERAL: Disoriented, hard of hearing, no respiratory distress SKIN: Normal color, warm HEENT: [place] palpebral conjunctivae, no ptosis, dry buccal mucosa NECK : Supple, no tenderness CHEST : CTA, no tenderness HEART : RRR, no obvious murmurs ABDOMEN: Some distention, nontender EXTREMITIES : No LE swelling/tenderness, no other conspicuous deformities noted NEUROLOGIC : Disoriented, no facial asymmetry, hard of hearing, gait and stance not assessed Results & Data Results & Data Vital Signs (Past 12 Hours) Vital Signs Temp Pulse Pulse Resp BP BP Pulse Ox 09/15/23 20:00 89 18 122/69 100 09/15/23 19:38 87 09/15/23 15:15 36.8 C 103 H 18 103/71 98 O2 Del Method 09/15/23 20:00 Room Air 09/15/23 19:38 09/15/23 15:15 Room Air Laboratory Results Laboratory Results WBC 8.52 K/ul (4.8-10.8) 09/15/23 16:03 RBC 4.42 M/uL (4.20-5.40) 09/15/23 16:03 Hgb 14.2 g/dl (12.0-16.0) 09/15/23 16:03 Hct 41.6 % (37.0-47.0) 09/15/23 16:03 MCV 94.1 fL (80.0-100.0) 09/15/23 16:03 MCH 32.1 pg (25.0-34.0) 09/15/23 16:03 MCHC 34.1 g/dL (32.0-36.0) 09/15/23 16:03 RDW Std Deviation 52.7 fL (36.4-46.3) H 09/15/23 16:03 RDW Coeff of Liliana 15.0 % (11.5-14.5) H 09/15/23 16:03 Plt Count 171 K/uL (130-400) 09/15/23 16:03 MPV 11.4 fL (9.4-12.4) 09/15/23 16:03 Immature Gran % (Auto) 0.5 % 09/15/23 16:03 Neut % (Auto) 82.2 % 09/15/23 16:03 Lymph % (Auto) 9.6 % 09/15/23 16:03 Wright % (Auto) 7.5 % 09/15/23 16:03 Eos % (Auto) 0.0 % 09/15/23 16:03 Baso % (Auto) 0.2 % 09/15/23 16:03 Neut # (Auto) 7.00 K/uL (1.40-6.50) H 09/15/23 16:03 Lymph # (Auto) 0.82 K/uL (1.20-3.40) L 09/15/23 16:03 Wright # (Auto) 0.64 K/uL (0.11-0.59) H 09/15/23 16:03 Eos # (Auto) 0.00 K/uL (0.00-0.50) 09/15/23 16:03 Baso # (Auto) 0.02 K/uL (0.00-0.20) 09/15/23 16:03 Immature Gran # (Auto) 0.04 K/uL (0.01-0.20) 09/15/23 16:03 PT 10.5 Seconds (9.0-12.0) 09/15/23 16:03 INR 1.0 (0.9-1.1) 09/15/23 16:03 APTT 23 Seconds (21-31) 09/15/23 16:03 PTT Ratio 0.9 09/15/23 16:03 Sodium 138 mmol/L (136-145) 09/15/23 16:03 Potassium 4.6 mmol/L (3.5-5.1) 09/15/23 16:03 Chloride 104 mmol/L (98-107) 09/15/23 16:03 Carbon Dioxide 27 mmol/L (21-32) 09/15/23 16:03 Anion Gap 7 (3-11) 09/15/23 16:03 BUN 21 mg/dl (6-23) 09/15/23 16:03 Creatinine 0.65 mg/dl (0.6-1.2) 09/15/23 16:03 Est Cr Clr Drug Dosing Not Reportable 09/15/23 16:03 Est GFR ( Amer) 111.1 ml/min 09/15/23 16:03 Est GFR (Non-Af Amer) 95.8 ml/min 09/15/23 16:03 BUN/Creatinine Ratio 32.3 (10-20) H 09/15/23 16:03 Glucose 340 mg/dl (70-99(Fasting)) H* 09/15/23 16:03 Calcium 9.4 mg/dl (8.6-10.3) 09/15/23 16:03 Total Bilirubin 0.3 mg/dl (0.2-1.0) 09/15/23 16:03 AST 24 U/L (13-39) 09/15/23 16:03 ALT 46 U/L (7-52) 09/15/23 16:03 Alkaline Phosphatase 135 U/L (34-104) H 09/15/23 16:03 Troponin I High Sens < 2.3 pg/ml (0-14) 09/15/23 16:03 Total Protein 7.5 gm/dl (6.0-8.3) 09/15/23 16:03 Albumin 4.5 gm/dl (3.4-5.0) 09/15/23 16:03 Globulin 3.0 gm/dl (2.5-4.0) 09/15/23 16:03 Albumin/Globulin Ratio 1.5 (0.9-2) 09/15/23 16:03 Impressions Chest X-Ray 09/15/23 15:21 SINGLE VIEW CHEST CLINICAL HISTORY: Near syncope FINDINGS: 2 AP upright chest radiographs are compared to study dated 08/15/2023. The cardiomediastinal silhouette is unremarkable. There is chronic elevation of the left hemidiaphragm. Atelectasis is noted at both lung bases. No airspace consolidation or large pleural effusion is identified. The lungs and pleural spaces are clear. No pneumothorax is seen. The skeletal structures are osteopenic. There are chronic/healed left-sided rib fractures. There is gaseous distention of the stomach. IMPRESSION: 1. No acute cardiopulmonary abnormality. 2. Marked gaseous distention of the stomach is similar to prior studies. ACT 112: Negative or not required by law. Electronically signed by: Carlos Savage M.D. 09/15/2023 3:54 PM Abdomen/Pelvis CT 09/15/23 18:25 Exam(s): CT ABDOMEN + PELVIS With Contrast IV Amt: 95 ml optiray 320 EXAM: CT Abdomen and Pelvis With Intravenous Contrast CLINICAL HISTORY: Reason for exam: fall. TECHNIQUE: Axial computed tomography images of the abdomen and pelvis with intravenous contrast. CTDI is 15.23 mGy and DLP is 861.22 mGy-cm. Automated exposure control was utilized for the study. A dose lowering technique was utilized adhering to the principles of ALARA. CONTRAST: Patient received 95 ml optiray 320 of IV contrast COMPARISON: 08/15/23 FINDINGS: Lung bases are clear. Distal esophagus is distended with gas. Seen on prior CT, there is marked distention of the stomach and duodenum. There is narrowing of the duodenum as it passes between the aorta and SMA, but duodenum and jejunum distal to this level are also distended. There is increased colonic stool burden. There is no mucosal thickening. Appendix is not identified on today's exam, but there are no secondary signs of appendicitis. Liver, gallbladder, spleen, pancreas, adrenal glands, and kidneys are within normal limits. There is no aortic aneurysm or adenopathy. There is no evidence of vascular injury. There is no free air or significant free fluid. Patient has undergone prior ORIF of the right femur. Bones are osteopenic. There is a chronic mild L1 superior endplate compression fracture. There is no acute fracture or dislocation. IMPRESSION: 1. Again demonstrated is distention of the stomach and duodenum. There is narrowing of the duodenum as it passes between the aorta and SMA, but small bowel distal to this level is also distended. Findings may represent ileus, gastroenteritis, or gastroparesis. 2. No acute traumatic findings. 3. Constipation. Electronically signed by: Kyle Laguna M.D. 09/15/23 19:[address] 09/15/23 18:25 Exam(s): CT HEAD Without Contrast EXAM: CT Head Without Intravenous Contrast CLINICAL HISTORY: Reason for exam: fall. TECHNIQUE: Axial computed tomography images of the head/brain without intravenous contrast. CTDI is 34.3 mGy and DLP is 547.75 mGy-cm. Automated exposure control was utilized for the study. A dose lowering technique was utilized adhering to the principles of ALARA. COMPARISON: 08/15/23 FINDINGS: Brain: Patchy hypodensities in the periventricular and deep cerebral white matter suggesting chronic small vessel ischemic disease. Fernandez- white matter differentiation maintained. No hemorrhage, mass-effect, or parenchymal edema. Ventricles: Stable ventriculomegaly without evidence of progressive hydrocephalus. Bones/joints: Unremarkable. No acute fracture. Soft tissues: Unremarkable. Vasculature: Intracranial atherosclerosis. Sinuses: Unremarkable as visualized. No acute sinusitis. Mastoid air cells: Unremarkable as visualized. No mastoid effusion. IMPRESSION: No acute intracranial process. Electronically signed by: Kyle Laguna M.D. 09/15/23 19:22 PM Diagnostic Findings EKG as per my interpretation :
[2023-09-15] MEDS ORDERED: PROMETHAZINE HCL 6.25 MG in SODIUM CHLORIDE 0.9% 50 ML IV PRN (21:47)
[2023-09-15] MEDS: INSULIN ASPART PER UNIT CHARGE SC SCH (22:04)
[2023-09-15] MEDS: LANTUS PER UNIT CHARGE SQ STA (22:04)
[2023-09-15] MEDS: SODIUM CHLORIDE 0.9% 1,000 ML IV ONE (22:04)
[2023-09-15 22:12] LABS: Creatine Kinase 54 U/L (26-192); Lipase 70 U/L (11-82)
[2023-09-15] MEDS ORDERED: bisacodyL 10 MG SUPP PR PRN (22:18)
[2023-09-15 22:27] LABS: Estimated Average Glucose 105 mg/dl; Hemoglobin A1C 5.3 % (4.5-5.6)
[2023-09-15] MEDS: FLUTICASONE PROPIONATE NA SPR 16 GM BTL SCH (23:25)
[2023-09-15] MEDS: FAMOTIDINE 40 MG TABLET PO SCH (23:26)
[2023-09-15] MEDS: ATORVASTATIN 40 MG TAB PO SCH (23:26)
[2023-09-15] MEDS: DOCUSATE SODIUM/SENNA 50/8.6MG TAB PO SCH (23:26)
[2023-09-15] MEDS: levETIRAcetam 250 MG TAB PO SCH (23:29)
[2023-09-15] MEDS: POLYETHYLENE (MIRALAX) 17 GM PACK PO SCH (23:30)
[2023-09-15] MEDS: cloZAPine 100 MG TAB PO SCH (23:30)
[2023-09-16] MEDS: LACTATED RINGER'S 1,000 ML IV ONE (00:20)
[2023-09-16] MEDS ORDERED: ACETAMINOPHEN 325 MG TAB PO PRN (00:41)
[2023-09-16] MEDS: PHENYTOIN SODIUM ER 100 MG CAP PO SCH (02:00)
[2023-09-16 02:06] LABS: Basophils # (auto) 0.02 K/uL (0.00-0.20); Basophils % (auto) 0.2 %; Hematocrit (blood only) 36.1 % (37.0-47.0); Hemoglobin 12.2 g/dl (12.0-16.0); Immature Granulocytes # (auto) 0.03 K/uL (0.01-0.20); Immature Granulocytes % (auto) 0.3 %; Lymphocytes # (auto) 0.99 K/uL (1.20-3.40); Lymphocytes % (auto) 9.5 %; Mean Corpuscular Hemoglobin 31.9 pg (25.0-34.0); Mean Corpuscular Hgb Conc 33.8 g/dL (32.0-36.0); Mean Corpuscular Volume 94.3 fL (80.0-100.0); Mean Platelet Volume 11.7 fL (9.4-12.4); Monocytes # (auto) 1.15 K/uL (0.11-0.59); Neutrophils # (auto) 8.26 K/uL (1.40-6.50); Platelet Count 149 K/uL (130-400); RDW Coefficient of Variation 15.3 % (11.5-14.5); RDW Standard Deviation 52.9 fL (36.4-46.3); Red Blood Count 3.83 M/uL (4.20-5.40); White Blood Count 10.45 K/ul (4.8-10.8)
[2023-09-16 02:14] LABS: Anion Gap 9 (3-11); Blood Urea Nitrogen 18 mg/dl (6-23); Calcium 8.6 mg/dl (8.6-10.3); Carbon Dioxide 22 mmol/L (21-32); Chloride 104 mmol/L (98-107); Est GFR (African American) 118.8 ml/min; Est GFR (Non-African American) 102.5 ml/min; Glucose 194 mg/dl (70-99(Fasting)); Sodium 135 mmol/L (136-145)
[2023-09-16 03:38] LABS: Appearance Urine Clear (Clear); Bacteria Urine Automated None Seen (None Seen); Bilirubin Urine Negative (Negative); Blood Urine Negative (Negative); Cast Urine Automated 0-2 /lpf (0-2); Color Urine Yellow; Epithelial Cell Urine Auto 0-2 /hpf (0-2); Glucose Urine UA 2+ (Negative); Ketones Urine Negative (Negative); Leukocyte Esterase Urine 1+ (Negative); Nitrite Urine Negative (Negative); Protein Urine Trace (Negative); RBC Urine Automated 0-2 /hpf (0-2); Specific Gravity Urine > 1.045 (1.000-1.030); Urobilinogen Urine Negative (Negative); WBC Urine Automated >50 /hpf (0-5)
[2023-09-16] MEDS ORDERED: cefTRIAXone SODIUM 2,000 MG/50 ML BAG IV SCH (05:00)
[2023-09-16] MEDS: cefTRIAXone SODIUM 2,000 MG/50 ML BAG IV STA (05:54)
--- NOTE | 2023-09-16 07:09 | XRay Report ---
XR knee LT 1 or 2V routine HISTORY: 63 years-old Female fall acute left knee pain status post fall COMPARISON: None TECHNIQUE: 2 views of the left knee FINDINGS: Mild anteromedial soft tissue swelling. Moderate size joint effusion. Ill-defined lucency projected o dar the intercondylar proximal tibia is favored to be artifactual. Mild tricompartmental osteoarthrit is. No acute fracture or dislocation identified. Demineralized appearance of the bones. IMPRESSION: 1. No acute fracture or dislocation. 2. Soft tissue swelling with joint effusion. ACT 112: Negative or not required by law. The above report was generated using voice recognition software. It may contain grammatical, syntax o r spelling errors. Electronically signed by: Vince Brito M.D. 09/16/2023 7:07 AM
--- NOTE | 2023-09-16 07:20 | XRay Report ---
RIGHT KNEE 2 VIEWS CLINICAL HISTORY: Fall. Right knee injury. FINDINGS: AP and crosstable lateral views of the right knee are compared to study dated 11/10/2022. Th e skeletal structures are osteopenic. No fracture is seen. There is mild tricompartmental degenerativ e joint space narrowing, greatest in medial compartment. There is degenerative beaking of the tibial spine. There is no large joint effusion. Prepatellar soft tissue swelling is observed. IMPRESSION: Soft tissue swelling with no fracture identified. Electronically signed by: Carlos Savage M.D. 09/16/2023 7:19 AM
--- NOTE | 2023-09-16 07:32 | XRay Report ---
XR femur RT 2V routine HISTORY: 63 years-old Female fall, pain acute pain of the right femur status post fall COMPARISON: CT abdomen and pelvis of same day TECHNIQUE: 2 views of the right femur FINDINGS: Healed chronic intertrochanteric fracture deformity with intertrochanteric nail and medullary aston. De mineralized appearance of the bones. No acute fracture or dislocation. Mild right hip with mild to mo derate right knee osteoarthritis. Contrast noted within the urinary bladder. IMPRESSION: No acute fracture or dislocation. ACT 112: Negative or not required by law. The above report was generated using voice recognition software. It may contain grammatical, syntax o r spelling errors. Electronically signed by: Vince Brito M.D. 09/16/2023 7:31 AM
--- NOTE | 2023-09-16 07:38 | XRay Report ---
LEFT FEMUR 3 VIEWS CLINICAL HISTORY: Fall. Left leg pain. FINDINGS: AP, frog-leg, and lateral views of the left femur are obtained. No prior studies are availa ble for comparison at the time of dictation. The skeletal structures are osteopenic. There is no radi ographic evidence of left femoral fracture. The visualized left hemipelvis appears intact. The left h ip and knee joints appear maintained noting arthritic change. The overlying soft tissues are within n ormal limits. The bladder is filled with excreted IV contrast. Distended loops of bowel are seen in t he abdomen. IMPRESSION: 1. There is no radiographic evidence of left femoral fracture. 2. Distended bowel loops are noted in the lower abdomen. Correlate clinically. Electronically signed by: Carlos Savage M.D. 09/16/2023 7:37 AM
[2023-09-16] MEDS: valACYclovir HCL 500 MG TABLET PO SCH (08:38)
[2023-09-16] MEDS: LANTUS PER UNIT CHARGE SQ SCH (08:38)
[2023-09-16] MEDS: VITAMIN B COMPLEX TAB PO SCH (08:38)
[2023-09-16] MEDS ORDERED: PHARMACY GLYCEMIC MGMT CONSULT PRN (15:57)
--- NOTE | 2023-09-16 15:58 | Hospitalist Progress Note ---
Date of Service September 16, 2023 Assessment & Plan (1) Weakness: Plan: Generalized weakness Recurrent falls Possible UTI --CT head: No acute intracranial process. --Right knee, femur x-ray showing no signs of fractures --Blood, urine culture pending Empirically started on Rocephin Follow-up cultures PT OT as able Fall precautions Hyperglycemia H/O DM II HbA1c 5.3 hold p.o. medications Blood pressures have been running high at personal care facility Continue insulin while hospitalized Monitor blood glucose levels Consulted pharmacy for glycemic management Constipation Continue bowel regimen Encouraged to ambulate Hyperlipidemia on statin Seizure disorder Paranoid schizophrenia with auditory hallucinations Intellectual impairment --Follow Dilantin levels DVT Px: Lovenox SQ Code Status Full code Admission and Anticipated Discharge Date Admission Date: September 16, 2023 Subjective Patient is seen and examined at bedside Poor historian secondary to cognitive dysfunction Had bowel movement overnight per staff Tolerating current diet No distress on exam Review of Systems Review of Systems: All systems reviewed & are unremarkable except as noted in Subjective Physical Exam Physical Exam: Physical Exam: Vitals signs as noted above General Appearance:Thin, chronic ill, no apparent distress Head: normocephalic, Atraumatic Eyes: normal inspection, EOMI Neck: supple, Trachea midline Respiratory/Chest: Decreased breath sounds, CTA, No accessory muscle use Cardiovascular: S1, S2, No murmur Abdomen/GI:Soft, Non tender, mild distended, Bowel sounds present Extremities/Musculoskeletal:normal inspection, Trace edema Neurologic/Psych:AAOX2, grossly no focal neurological deficits, + Intellectual disability Skin: normal color, warm Results & Data Results & Data Vital Signs (Past 12 Hours) Vital Signs Temp Pulse Pulse Resp BP BP Pulse Ox 09/16/23 13:20 36.4 C L 84 18 156/82 H 99 09/16/23 13:18 36.1 C L 85 16 156/82 H 99 09/16/23 12:40 79 15 100 09/16/23 12:30 131/69 09/16/23 12:30 81 14 100 09/16/23 12:20 82 14 100 09/16/23 12:10 79 13 99 09/16/23 12:01 84 14 100 09/16/23 12:00 130/74 09/16/23 11:56 81 14 99 09/16/23 11:50 78 17 99 09/16/23 11:44 81 17 100 09/16/23 11:31 79 14 99 09/16/23 10:40 86 14 100 09/16/23 10:30 87 17 100 09/16/23 10:23 85 17 98 09/16/23 10:10 84 15 100 09/16/23 10:00 86 15 99 09/16/23 09:50 87 16 99 09/16/23 09:42 90 17 98 09/16/23 09:30 92 H 16 98 09/16/23 09:20 90 17 99 09/16/23 09:10 93 H 28 H 99 09/16/23 09:00 93 H 20 91 09/16/23 09:00 89 09/16/23 08:50 89 19 99 09/16/23 08:40 90 16 99 09/16/23 08:30 84 14 98 09/16/23 08:22 86 16 99 09/16/23 08:10 85 16 100 09/16/23 08:00 88 17 100 09/16/23 08:00 141/80 H 09/16/23 07:52 88 18 100 09/16/23 07:40 83 18 100 09/16/23 07:30 147/77 H 09/16/23 07:30 85 15 100 09/16/23 07:20 84 15 133/74 100 09/16/23 07:12 82 15 100 09/16/23 04:10 91 H 15 97 09/16/23 04:00 123/70 09/16/23 04:00 94 H 14 96 O2 Del Method 09/16/23 13:20 Room Air 09/16/23 13:18 Room Air 09/16/23 12:40 09/16/23 12:30 09/16/23 12:30 09/16/23 12:20 09/16/23 12:10 09/16/23 12:01 09/16/23 12:00 09/16/23 11:56 09/16/23 11:50 09/16/23 11:44 09/16/23 11:31 09/16/23 10:40 09/16/23 10:30 09/16/23 10:23 09/16/23 10:10 09/16/23 10:00 09/16/23 09:50 09/16/23 09:42 09/16/23 09:30 09/16/23 09:20 09/16/23 09:10 09/16/23 09:00 09/16/23 09:00 09/16/23 08:50 09/16/23 08:40 09/16/23 08:30 09/16/23 08:22 09/16/23 08:10 09/16/23 08:00 09/16/23 08:00 09/16/23 07:52 09/16/23 07:40 09/16/23 07:30 09/16/23 07:30 09/16/23 07:20 09/16/23 07:12 09/16/23 04:10 09/16/23 04:00 09/16/23 04:00 Laboratory Results Short CBC 09/15/23 09/16/23 Range/Units 16:03 01:37 WBC 8.52 10.45 (4.8-10.8) K/ul Hgb 14.2 12.2 (12.0-16.0) g/dl Hct 41.6 36.1 L (37.0-47.0) % Plt Count 171 149 (130-400) K/uL BMP 09/15/23 09/16/23 16:03 01:37 Sodium 138 135 L Potassium 4.6 4.0 Chloride 104 104 Carbon Dioxide 27 22 BUN 21 18 Creatinine 0.65 0.53 L Glucose 340 H* 194 H Calcium 9.4 8.6 Cardiac Enzymes 09/15/23 Range/Units 20:36 Total Creatine Kinase 54 (26-192) U/L Liver Function 09/15/23 Range/Units 16:03 Total Bilirubin 0.3 (0.2-1.0) mg/dl AST 24 (13-39) U/L ALT 46 (7-52) U/L Alkaline Phosphatase 135 H (34-104) U/L Albumin 4.5 (3.4-5.0) gm/dl Urine 09/16/23 Range/Units 02:40 Urine Color Yellow Urine Appearance Clear (Clear) Urine pH 6.0 (4.5-7.5) Ur Specific [place] > 1.045 H (1.000-1.030) Urine Protein Trace H (Negative) Urine Glucose (UA) 2+ H (Negative)
--- NOTE | 2023-09-16 17:05 | Pharmacy Report ---
Pharmacy Glycemic Short Note 2 - Date of Service September 16, 2023 - Glycemic Short BSG Results (Last 24 hours): 09/15/23 09/16/23 09/16/23 21:57 01:37 06:10 Glucose 194 H POC Glucose 168 H 153 H 09/16/23 09/16/23 07:50 13:13 Glucose POC Glucose 134 H 122 H OUTPATIENT ANTIDIABETIC REGIMEN: * Glimepiride 2mg PO BID * Glimepiride 1mg PO PRN BSG >300mg/dL * Trajenta 5mg PO daily * HbA1c 5.3% 09/15/23 ASSESSMENT: * Brittany is a 63 YOF admitted for weakness/possible UTI/ hyperglycemia. Pharmacy has been consulted for glycemic management while inpatient. * Hyperglycemic on admission, trended down with a few units of correctional. Recevied 5 units of basal with lunch, will hold for now and reassess in AM. * Novolog initiated at a weight based stress of approximately 1.5 PLAN FOR INPATIENT GLYCEMIC CONTROL: * Hold outpatient oral diabetes medications * Basal insulin * Reassess in AM * Bolus insulin * NovoLog per scale ACHS or Q6hrs while NPO * Goal Range: Low 120 mg/dL - High 160 mg/dL * Correction Factor: 45 mg/dL/unit * Nutritional / Prandial insulin per carb ratio of 1 unit per 15 grams CHO consumed
[2023-09-16 20:26] LABS: A calco-baum cmplx NotReported Not Detected (NotDetected); Bact fragilis Not Reported Not Detected (NotDetected); Blood Culture Id Panel See PCR Comment (NotDetected); C auris Not Reported Not Detected (NotDetected); Calbicans Not Reported Not Detected (NotDetected); Candida glabrata Not Reported Not Detected (NotDetected); Candida krusei Not Reported Not Detected (NotDetected); Cneoformans/gatti Not Reported Not Detected (NotDetected); Cparapsilosis Not Reported Not Detected (NotDetected); E cloacae compx Not Reported Not Detected (NotDetected); Efaecalis Not Reported Not Detected (NotDetected); Efaecium Not Reported Not Detected (NotDetected); Enterobacterales Not Reported Not Detected (NotDetected); Escherichia coli Not Reported Not Detected (NotDetected); H influenzae Not Reported Not Detected (NotDetected); K aerogenes Not Reported Not Detected (NotDetected); Koxytoca Not Reported Not Detected (NotDetected); Kpneumoniae grp Not Reported Not Detected (NotDetected); Lmonocyt Not Reported Not Detected (NotDetected); N meningitidis Not Reported Not Detected (NotDetected); P aeruginosa Not Reported Not Detected (NotDetected); Proteus spp Not Reported Not Detected (NotDetected); Salmonella spp Not Reported Not Detected (NotDetected); Smarcescens Not Reported Not Detected (NotDetected); Staph lugdunensis Not Reported Not Detected (NotDetected); Staph spp. Not Reported DETECTED (NotDetected); Staphaureus Not Reported Not Detected (NotDetected); Staphepi Not Reported DETECTED (NotDetected); Staphylococcus spp. DETECTED (NotDetected); Stenmaltophilia Not Reported Not Detected (NotDetected); Strep agal(GrpB) Not Reported Not Detected (NotDetected); Strep pneum Not Reported Not Detected (NotDetected); Strep pyog (GrpA) Not Reported Not Detected (NotDetected); Strep spp Not Reported Not Detected (NotDetected); mecAC Resistant Gene Not Detected (NotDetected)
[2023-09-16 20:59] LABS: Staphylococcus epidermidis DETECTED (NotDetected)
[2023-09-17] MEDS: cefTRIAXone SODIUM 2,000 MG/50 ML BAG IV SCH (05:47)
[2023-09-17 07:07] LABS: Hematocrit (blood only) 33.8 % (37.0-47.0); Hemoglobin 11.4 g/dl (12.0-16.0); Mean Corpuscular Hemoglobin 31.8 pg (25.0-34.0); Mean Corpuscular Hgb Conc 33.7 g/dL (32.0-36.0); Mean Corpuscular Volume 94.2 fL (80.0-100.0); Mean Platelet Volume 11.7 fL (9.4-12.4); Platelet Count 117 K/uL (130-400); RDW Coefficient of Variation 14.8 % (11.5-14.5); RDW Standard Deviation 51.4 fL (36.4-46.3); Red Blood Count 3.59 M/uL (4.20-5.40); White Blood Count 5.34 K/ul (4.8-10.8)
[2023-09-17 07:29] LABS: BUN Creatinine Ratio 21.2 (10-20); Calcium 8.1 mg/dl (8.6-10.3); Est GFR (African American) 119.5 ml/min; Est GFR (Non-African American) 103.1 ml/min; Magnesium 1.8 mg/dl (1.7-2.4)
[2023-09-17] MEDS: LANTUS PER UNIT CHARGE SQ SCH (10:43)
--- NOTE | 2023-09-17 11:17 | XRay Report ---
KUB HISTORY: Ileus COMPARISON: KUB 08/22/2023. Abdomen and pelvis CT 09/15/2023. FINDINGS: The stomach and proximal small bowel remain mildly distended. Large amount well-formed stoo l seen throughout the colon. No renal calculi. No ureteral calculi. Calcifications in the deep pelvi s likely represent phleboliths. Postoperative changes again noted within the proximal right femur. No pneumoperitoneum or pneumatosis. IMPRESSION: 1. No change in the mildly distended stomach and proximal small bowel. 2. Large amount of well-formed stool seen throughout the colon. ACT 112: Negative or not required by law. Electronically signed by: Kendall Sanderson M.D. 09/17/2023 11:16 AM
[2023-09-17] MEDS ORDERED: bisacodyL 10 MG SUPP PR PRN (11:38)
--- NOTE | 2023-09-17 12:41 | Pharmacy Report ---
Pharmacy Glycemic Short Note 2 - Date of Service September 17, 2023 - Glycemic Short BSG Results (Last 24 hours): 09/16/23 09/16/23 09/16/23 13:13 17:07 20:36 Glucose POC Glucose 122 H 135 H 173 H 09/17/23 09/17/23 09/17/23 06:19 08:20 12:03 Glucose 149 H POC Glucose 136 H 178 H OUTPATIENT ANTIDIABETIC REGIMEN: * Glimepiride 2mg PO BID * Glimepiride 1mg PO PRN BSG >300mg/dL * Trajenta 5mg PO daily HbA1c 5.3% 09/15/23 ASSESSMENT: 09/17/23: * Blood sugars reasonably controlled thus far, ranging 122-178 mg/dL * Received 11 units of insulin yesterday (5 units of basal and 6 units of prandial/correctional bolus) * Will continue with current basal and slightly tighten Novolog parameters 09/16/23: * Brittany is a 63 YOF admitted for weakness/possible UTI/ hyperglycemia. Pharmacy has been consulted for glycemic management while inpatient. * Hyperglycemic on admission, trended down with a few units of correctional. Recevied 5 units of basal with lunch, will hold for now and reassess in AM. * Novolog initiated at a weight based stress of approximately 1.5 PLAN FOR INPATIENT GLYCEMIC CONTROL: * Hold outpatient oral diabetes medications * Basal insulin * Lantus 5 units SC daily * Bolus insulin * NovoLog per scale ACHS or Q6hrs while NPO * Goal Range: Low 120 mg/dL - High 150 mg/dL * Correction Factor: 35 mg/dL/unit * Nutritional / Prandial insulin per carb ratio of 1 unit per 12 grams CHO consumed
[2023-09-17] MEDS: bisacodyL 10 MG SUPP PR ONE (13:49)
--- NOTE | 2023-09-17 17:17 | Hospitalist Progress Note ---
Date of Service September 17, 2023 Assessment & Plan (1) Weakness: Plan: Generalized weakness Recurrent falls UTI --CT head: No acute intracranial process. --Right knee, femur x-ray showing no signs of fractures --Blood culture: Negative to date -- Urine culture growing gram-negative bacilli Continue Rocephin PT OT Fall precautions Encouraged to ambulate Hyperglycemia H/O DM II HbA1c 5.3 hold p.o. medications Blood sugars have been running high at personal care facility Continue insulin while hospitalized Monitor blood glucose levels Consulted pharmacy for glycemic management Constipation Continue bowel regimen Encouraged to ambulate Hyperlipidemia on statin Seizure disorder Paranoid schizophrenia with auditory hallucinations Intellectual impairment --Follow Dilantin levels DVT Px: Lovenox SQ Code Status Full code Admission and Anticipated Discharge Date Admission Date: September 16, 2023 Subjective Patient is seen and examined at bedside Poor historian secondary to cognitive dysfunction KUB today showed some signs of constipation Urine culture growing gram-negative bacilli No distress on exam Review of Systems Review of Systems: All systems reviewed & are unremarkable except as noted in Subjective Physical Exam Physical Exam: Physical Exam: Vitals signs as noted above General Appearance:Thin, chronic ill, no apparent distress Head: normocephalic, Atraumatic Eyes: normal inspection, EOMI Neck: supple, Trachea midline Respiratory/Chest: Decreased breath sounds, CTA, No accessory muscle use Cardiovascular: S1, S2, No murmur Abdomen/GI:Soft, Non tender, mild distended, Bowel sounds present Extremities/Musculoskeletal:normal inspection, Trace edema Neurologic/Psych:AAOX2, grossly no focal neurological deficits, + Intellectual disability Skin: normal color, warm Results & Data Results & Data Vital Signs (Past 12 Hours) Vital Signs Temp Pulse Pulse Resp BP Pulse Ox O2 Del Method 09/17/23 16:58 96 H 09/17/23 16:34 36.5 C 95 H 17 108/67 100 Room Air 09/17/23 11:19 36.9 C 93 H 16 105/65 100 Room Air 09/17/23 08:00 83 09/17/23 07:38 36.9 C 79 16 115/76 100 Room Air Laboratory Results Short CBC 09/17/23 Range/Units 06:19 WBC 5.34 (4.8-10.8) K/ul Hgb 11.4 L (12.0-16.0) g/dl Hct 33.8 L (37.0-47.0) % Plt Count 117 L (130-400) K/uL BMP 09/17/23 06:19 Sodium 140 Potassium 4.0 Chloride 109 H Carbon Dioxide 24 BUN 11 Creatinine 0.52 L Glucose 149 H Calcium 8.1 L
--- OUTSIDE RECORDS SUMMARY | 2023-09-18 01:33 | External Medical Summary | Summary of Care ---
Author Name Unknown Organization [facility] Address [address] [place] [address] Phone [phone] Care Team Providers Care Grain Distributor Name Role Phone Dheeraj NORWOOD MD, Vitor Baird Primary Care Provider [phone] Reason for Visit * Reason Comments Constipation Admitted to [facility] for constipation on August 14 and discharged on August 22. Patient would need clearance for suppositories. Encounter Details Date Type Department Care Team (Late st Contact Info) Description 09/03/2023 10:40 AM EDT Office Visit Family Practice [facility] [address] [place] [address] Mirian Davey PA-C [address] [facility] [place] [address] Constipation, unspecified constipation type* Allergies Active Allergy Reactions Criticality Noted Date Comments Aspirin 08/05/2016 Depakote Er Unknown 09/12/2007 Salicylates Unknown 10/30/2003 aspirin documented as of this encounter (statuses as of 09/03/2023) Medications Medication Sig Dispensed Refills Start Date End Date Status LEVETIRACETAM 250 MG PO TABS 1 tab twwice daily 0 Active Blood Glucose Monitoring Suppl ([employer]ucl[employer] MediaUCH ULTRA SYSTEM) W/DEVICE KITIndications:Type 2 diabetes mellitus with hemoglobin A1c goal of less than 7.0% (HCC) Use as directed 4 times a day as needed for Hyperglycemia (high sugar) or Hypoglycemia (low sugar). f E11.9 1 Kit 0 11/21/19 17 Active MEDICAL INSTRUCTIONSIndications :Type 2 diabetes mellitus with hemoglobin A1c goal of less than 7.0% ([facility]) Check glucose daily before supper. May skip on days of outings. May check if signs or symptoms of low blood sugar. (may refer to handout) 1 Each 1 02/27/20 17 Active cloZAPine 200 MG Oral Tablet 3 tabs at night 90 Tablet 5 07/16/19 22 Active Depend Pant Sm/MedIndications:Urina ry incontinence, unspecified [...] by mouth at bedtime. 30 Tablet 11 12/08/19 23 Active Ammonium Lactate 12 % External [...] hemoglobin A1c goal of less than 7.0% ([facility]) TEST BLOOD SUGAR before breakfast [...] STOOLS OR DIARRHEA 476 g 5 03/04/20 23 Active Calcium Citrate-Vitamin D 200-3.125 MG-MCG Oral Tablet Take 2 Tablets by mouth in the morning. 0 Active Accu-Chek Safe-T Pro LancetsIndications:Type 2 diabetes mellitus with hemoglobin A1c goal of less than 7.0% (HCC) USE TO TEST BLOOD SUGAR twice DAILY FOR DM 200 Each 1 03/15/20 23 Active Atorvastatin Calcium 40 MG Oral Tablet (Lipitor)Indications:Pu re hypercholesterolemia TAKE 1 TABLET BY MOUTH AT BEDTIME (DX: FOR CHOLESTEROL) 31 Tablet 04/16/20 23 Active Docusate Sodium 100 MG Oral Capsule (Colace)Indications:Con stipation, unspecified constipation type TAKE 1 CAPSULE BY MOUTH TWICE DAILY (DX: CONSTIPATION) 62 Capsule 04/16/20 23 Active B Complex-C Oral Tablet (Therapeutic B Complex w/C) Take 1 Tablet by mouth in the morning. In the morning.. 31 Tablet 07/07/19 24 Active Glimepiride 2 MG Oral Tablet (Amaryl)Indications:Typ e 2 diabetes mellitus with hemoglobin A1c goal of less than 7.0% (HCC) Take 1 Tablet by mouth 2 times a day with morning and evening meals. TAKE 1 TABLET BY MOUTH ONCE DAILY WITH FIRST MAIN MEAL OF THE DAY (DX: DIABETES) 60 Tablet 07/16/19 24 Active Glimepiride 1 MG Oral Tablet (Amaryl)Indications:Typ e 2 diabetes mellitus with hemoglobin A1c goal of less than 7.0% (HCC) Take one tablet daily in addition to Glimepiride 2mg if blood sugar is greater than 300. 30 Tablet 07/16/19 24 Active linaGLIPtin 5 MG Oral Tablet (Tradjenta)Indications: Type 2 diabetes mellitus with hemoglobin A1c goal of less than 7.0% (HCC) Take 1 Tablet by mouth in the morning. 30 Tablet 07/16/19 24 Active Bisacodyl 10 MG Rectal Suppository (Dulcolax)Indications:C onstipation, unspecified constipation type Administer 1 Suppository into the rectum daily as needed for Constipation. 30 Suppository 09/03/19 24 Active Bisacodyl 10 MG Rectal Suppository (Dulcolax) Give suppository once daily to produce bowel movement 30 Suppository 09/02/19 24 024 Discontin ued(Refil l) documented as of this encounter (statuses as of 09/03/2023) Active Problems Problem Noted Date Diagnosed Date [...] as of this encounter (statuses as of 09/03/2023) Resolved Problems Problem Noted Date Diagnosed Date Resolved Date Constipation 09/10/2012 03/07/2018 Overview: ICD-10 update of inactive term ACTIVE CASE MANAGEMENT Keke Solis RN [phone] 01/25/2008 03/03/2010 Type 2 diabetes mellitus wit h hemoglobin A1c goal of less than 7.0% 10/30/2003 03/14/2009 Overview: Per Diabetes Taxonomy. ICD-10 update of inactive term Intellectual disability 10/30/200302/15 Overview: ICD-10 update of inactive term DM type 2, not at goal 10/30/200309/11 Psychotic disorder 10/30/2003 0 documented as of this encounter (statuses as of 09/03/2023) Immunizations Name Administration Dates Next Due COVID-19 mRNA, LNP-s, No Pre serve, 2-Dose Series (Moderna) 07/10/2020,06/12/2020 COVID-19, mRNA, LNP-s, PF, B ooster, 100mcg/0.5mg (Moderna) 09/18/2021,04/01/2021 Covid-19, Mrna, Lnp-s, Pf, B ivalent, 50 Mcg, IM, 12 yrs and above (Moderna) 03/11/2022 Hepatitis B, 20+ yrs 09/10/2014,03/08/2014,02/06 PPD 03/09/2022, 0,03/08/2019,03/04,02/14/2015,01/31/2013,01/25/2012 ,03/26/2010,09/21/2008 Pneumococcal Conjugate Vacci ne, 20-valent ([id number]) 03/09/2022 Pneumococcal Polysaccharide PPV23 (Pneumovax) 09/16/2005 Seasonal [...] Sign Reading Time Taken Comments Blood Pressure 116/64 09/03/2023 10:49 AM EDT Pulse 105 09/03/2023 10:49 AM EDT Temperature 35.8 C (96.5 F) 09/03/2023 10:49 AM E DT Respiratory Rate - - Oxygen Saturation 93% 09/03/2023 10:49 AM EDT Inhaled Oxygen Concentration - - Weight 56.3 kg (124 lb 1.3 oz) 09/03/2023 10:49 AM EDT Height 167.6 cm (5' 5.98") 09/03/2023 10:49 AM E DT Body Mass Index 20.04 09/03/2023 10:49 AM EDT documented in this encounter Progress Notes * Mirian Davey PA-C - 09/03/2023 10:54 AM EDT SUBJECTIVE: CC: Brittany Oneill is a 63 year old female who presents with constipation concerns. 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 Patient has recent hospital admission for sepsis secondary to aspiration pneumonia, abdomen distention with significant constipation.Since then she has been on daily miralax 17g daily and PRN bisacodyl 10 mg rectal suppositories. Since hospital discharge caregiver reports that they have only been required to use suppositories twice. Caregivers state her belly is not being distended or hard, pt reports no discomfort or rectal bleeding. Their current order reads that suppository be given if no bowel movement in 24 hours. Appetite has been normal, no vomiting. Nursing Notes: Jasmin Curran, MED ASSIST 09/03/23 1049 Sign at exiting of workspace Chief Complaint Patient presents with Constipation Admitted to [facility] for constipation on August 14 and discharged on August 22. Patient would need clearance for suppositories. ROS: See HPI for pertinent positive and negatives HISTORY: Past Medical History: Diagnosis Date Age-related osteoporosis [...] performed by Ryan Sauceda MD at [facility] COLONOSCOPY, DIAGNOSTIC (RECTUM) 02/03/2023 COLONOSCOPY FLEXIBLE PROXIMAL DIAGNOSTIC performed by Lilo Smith DO at [facility] DIABETIC EYE EXAM 06/21/2006 Glacoma suspect, large optic cups DIABETIC EYE EXAM 07/11/2009 no diabetic retinopathy EGD, FLEXIBLE, DIAGNOSTIC 08/19/2021 normal / ESOPHAGOGASTRODUODENOSCOPY (EGD), FLEXIBLE, TRANSORAL, DIAGNOSTIC performed by Lilo Smith DO at [facility] EGD, FLEXIBLE, DIAGNOSTIC 02/03/2023 ESOPHAGOGASTRODUODENOSCOPY (EGD), FLEXIBLE, TRANSORAL, DIAGNOSTIC performed by Lilo Smith DO at [facility] SHAKER SCREEN OPERATOR PAP SCREEN 10/15/2004 database developer exam at family planning INFORMATION 05/17/2005 Glaucoma suspect ou/no diabetic retinopathy, ptosis, bilateral MAMMOGRAM - BILATERAL 09/28/2006 benign findings, yearly mammograms appropriate, birad code 2 MAMMOGRAM SCREENING-BILATERAL 02/03/2005 normal Social History Tobacco Use Smoking status: Never Smokeless tobacco: Never Vaping Use Vaping Use: Never used Substance Use Topics Alcohol use: No Drug use: No Family History Problem Relation Age of Onset Diabetes Mother Breast Cancer No significant family history Outpatient Medications Marked as Taking for the 09/03/23 encounter (Office Visit) with Mirian Davey PA-C Medication Sig Bisacodyl 10 MG Rectal Suppository (Dulcolax) Give suppository once daily to produce bowel movement Glimepiride 1 MG Oral Tablet (Amaryl) Take [...] 1 Tablet by mouth in the morning. B Complex-C Oral Tablet (Therapeutic B Complex w/C) Take 1 Tablet by mouth in the morning. In the morning.. Atorvastatin Calcium 40 MG Oral Tablet (Lipitor) TAKE 1 TABLET BY MOUTH AT BEDTIME (DX: FOR CHOLESTEROL) Docusate Sodium 100 MG Oral Capsule (Colace) TAKE 1 CAPSULE BY MOUTH TWICE DAILY (DX: CONSTIPATION) Accu-Chek Safe-T Pro Lancets USE TO TEST BLOOD SUGAR twice DAILY FOR DM Calcium Citrate-Vitamin D 200-3.125 MG-MCG Oral Tablet Take 2 Tablets by mouth in the morning. Fluticasone Propionate 50 MCG/ACT Nasal Suspension (Flonase) INSTILL 2 SPRAYS INTO EACH NOSTRIL ONCE DAILY FOR ALLERGIES Polyethylene Glycol 3350 17 GM/SCOOP Oral Powder (Miralax) MIX 1 CAPFUL (17GM) WITH 8OZ OF FLUID AND DRINK Twice DAILY FOR CONSTIPATION HOLD FOR LOOSE STOOLS OR DIARRHEA OneTouch Ultra In Vitro Strip (Glucose Blood) TEST BLOOD SUGAR before breakfast and supper FOR DIABETES valACYclovir HCl 500 MG Oral Tablet (Valtrex) Take 1 Tablet by mouth in the morning. One-A-Day Womens Oral Tablet TAKE 1 TABLET BY MOUTH ONCE DAILY (DX: FOR GENERAL HEALTH) Ammonium Lactate 12 % External Cream (Lac-Hydrin) Apply to feet once daily Boost 100 Calorie Smart Oral Liquid DAILY IN THE MORNING Famotidine 40 MG Oral Tablet (Pepcid) Take 1 Tablet by mouth at bedtime. Phenytoin Sodium Extended 100 MG Oral Capsule (Dilantin) Take 2 Capsules by mouth in the morning and 2 Capsules before bedtime. Triamcinolone Acetonide 0.1 % External Cream (Aristocort) Apply topically to affected area 2 times a day as needed for Other (rash). To affected area. Depend Pant Large As needed Depend Pant Sm/Med As needed cloZAPine 200 MG Oral Tablet 3 tabs at night MEDICAL INSTRUCTIONS Check glucose daily before supper. May skip on days of outings. May check if signs or symptoms of low blood sugar. (may refer to handout) Blood Glucose Monitoring Suppl (SynqeraTOUCH ULTRA SYSTEM) W/DEVICE KIT Use as directed 4 times a day as needed for Hyperglycemia (high sugar) or Hypoglycemia (low sugar). f E11.9 LEVETIRACETAM 250 MG PO TABS 1 tab twwice daily Review of patient's allergies indicates: Allergen Reactions Aspirin Depakote [Depakote Er] Unknown Salicylates Unknown aspirin OBJECTIVE: BP 116/64 | Pulse 105 | Temp 35.8 C (96.5 F) (Tympanic) | Ht 1.676 m (5' 5.98") | Wt 56.3 kg (124 lb 1.3 oz) | LMP 09/30/2011 | SpO2 93% | BMI 20.04 kg/m | BSA 1.62 m General appearance: awake, alert, no apparent distress, cooperative Heart: regular rate & rhythm, no gallops, and no murmurs Lungs: lungs clear to auscultation, no rales, wheezing, or rhonchi, and breathing non-labored Abdomen: abdomen soft, non-tender, normal bowel sounds, no masses or organomegaly, and no rebound or guarding Skin: skin color, texture, turgor are normal, no rashes ASSESSMENT/PLAN: Constipation, unspecified constipation type (Primary) - Bisacodyl 10 MG Rectal Suppository (Dulcolax); Administer 1 Suppository into the rectum daily as needed for Constipation. Continue miralax 17g daily for constipation prevention, ensure drinking 50-60oz of water a day. Follow up if requiring ducolax daily for 1 week, or more than 3 times a week for constipation. Forms completed with instructions. Patients goals for plan of care were discussed. Total time today including reviewing chart before the visit, pertinent labs, imaging reports, face to face time, and documentation time was 37 minutes. Follow up: Instructed to follow up or notify Primary Care Provider as needed. Mirian Davey PA-C [address] [place] [address] documented in this encounter Nursing Notes * Jasmin Curran MED ASSIST - 09/03/2023 10:49 AM EDT Chief Complaint Patient presents with Constipation Admitted to [facility] for constipation on August 14 and discharged on August 22. Patient would need clearance for suppositories. documented in this encounter Plan of Treatment Upcoming Encounters Date Type Department Care Team (Late st Contact Info) Description 09/23/2023 10:00 AM EDT Office Visit [facility] [address] [place] [address] Delmy Jacobsen PA-C [address] [place] [address] 10/19/2023 3:20 PM EDT Telemedicine Endocrinology, [place] [address] [place] [address] [place], Pharmacist Endocrinology [address] [place] [address] 10/28/2023 2:30 PM EDT Office Visit General Internal Medicine, [facility] [address] [place] [address] Rose Almaguer MD [address] [place] [address] 11/05/2023 9:30 AM EDT Nutrition Services Nutrition, [facility] [address] [place] [address] Brenda Rosales, JAMES [address] [place] [address] 12/30/2023 11:15 AM EDT Imaging Radiology [facility] [address] [place] [address] 01/25/2024 2:00 PM EDT Telemedicine Endocrinology, [place] [address] [place] [address] Kristine Lopez CRNP [address] [place] [address] 02/15/2024 8:40 AM EDT Office Visit [facility] [address] [place] [address] Delmy Jacobsen, CHRIS [address] [place] [address] 07/19/2024 10:30 AM EST Telemedicine Endocrinology, [place] [address] [place] [address] Carlita Louis PA-C [address], [place] [id number] Health Maintenance Due Date Last Done Comments Cologuard 2007 Fecal Occult Blood Test 2007 Sigmoidoscopy 2007 COVID-19 Vaccine ( season) 2023 03/11/2022, 09/18/2021, 04/01/2021, Additional history exists Depression Screening 03/09/2023 03/09/2022, 02/14/2015 (Discussed) *BISPHONATE OR OTHER ACCEPTABLE MEDICATION NEEDED FOR OSTEOPOROSIS (REFER TO SMARTSET #1146) 03/13/2023 Albumin/Creatinine Ratio 08/22/2023 023, 07/15/2021, 10/20/2019, Additional history exists B-12 10/24/2023 10/23/2022, 040 11/2022, 03/12/2021, Additional history exists HbA1c 01/12/2024 07/14/2023, 02/14, 05/26/2022, Additional history exists Mammogram 01/22/2024 01/21/2023, 09/0 10/2021, 01/13/2021, Additional history exists Diabetic Foot Exam 03/10/2024 03/10/2023, 0 11/06/2021, 03/11/2020, Additional history exists GFR 07/14/2024 07/14/2023, 090 09/2022, 11/30/2022, Additional history exists Diabetic Eye Exam 08/09/2024 08/10/2023, , 09/22/2017, Additional history exists DXA Scan 04/06/2025 04/06/2023 [...] D LEVEL ONCE IN A LIFETIME-USE SMARTSET# 39145 Completed 10/23/2022, 07/23/2022 Influenza Vaccine (FLU shot) Completed , 02/04/2022, 01/21/2021, Additional history exists GARDASIL-HPV IMMUNIZATION SERIES Aged Out No longer eligible based on patient's age to complete this topic MENINGOCOCCAL (MENACTRA/MENVEO) Aged Out No longer eligible based on patient's age to complete this topic documented as of this encounter Medical Devices Not on filedocumented as of this encounter Visit Diagnoses Diagnosis Constipation, unspecified constipation type- Primary documented in this encounter Care Teams Grain Distributor Relationship Specialty Start Date End Date Vitor Esqueda III, MD [address] [facility] [place] [address] PCP - General Family Medicine 07/20/18 documented as of this encounter
--- OUTSIDE RECORDS SUMMARY | 2023-09-18 01:33 | External Medical Summary | Summary of Care ---
Author Name Unknown Organization [facility] Address [address] [place] [address] Phone [phone] Care Team Providers Care Manufacturers Agent Name Role Phone Dheeraj NORWOOD MD, Vitor Baird Primary Care Provider [phone] Encounter Details Date Type Department Care Team (Late st Contact Info) Description 09/02/2023 1:00 PM EDT Scheduled Telephone Care Coordination and Integration [address], [place] [phone] Rosalinda Delgado, Community Health Senior Qualitative Researcher [address] [place] [address] Allergies Active Allergy Reactions Criticality Noted Date Comments Aspirin 08/05/2016 Depakote Er Unknown 09/12/2007 Salicylates Unknown 10/30/2003 aspirin documented as of this encounter (statuses as of 09/02/2023) Medications Medication Sig Dispensed Refills Start Date End Date Status LEVETIRACETAM 250 MG PO TABS 1 tab twwice daily 0 Active Blood Glucose Monitoring Suppl (ZayoUCH ULTRA SYSTEM) W/DEVICE KITIndications:Type 2 diabetes mellitus [...] unspecified type As needed 140 Each 11 10/24/19 22 Active Depend Pant Large As needed 144 Each 6 11/01/19 22 Active Triamcinolone Acetonide 0.1 % [...] DAILY (DX: FOR GENERAL HEALTH) 30 Tablet 02/12/20 23 Active valACYclovir HCl 500 MG Oral Tablet (Valtrex)Indications:Her pes simplex disease Take 1 Tablet by mouth in the morning. 30 Tablet 11 02/14/20 23 Active OneTouch Ultra In Vitro Strip (Glucose Blood)Indications:Type 2 diabetes mellitus with hemoglobin A1c goal of less than 7.0% ([facility]) TEST BLOOD SUGAR before breakfast and supper FOR DIABETES 200 Strip 2 02/17/20 23 Active Fluticasone Propionate 50 MCG/ACT Nasal Suspension (Flonase)Indications:Acu te maxillary sinusitis, recurrence not specified INSTILL 2 SPRAYS INTO EACH NOSTRIL ONCE DAILY FOR ALLERGIES 16 g 03/04/20 23 Active Polyethylene Glycol 3350 17 [...] 24 Active Glimepiride 2 MG Oral Tablet (Amaryl)Indications:Type 2 diabetes mellitus with hemoglobin A1c goal of less than 7.0% (HCC) Take 1 Tablet by mouth 2 times a day with morning and evening meals. TAKE 1 TABLET BY MOUTH ONCE DAILY WITH FIRST MAIN MEAL OF THE DAY (DX: DIABETES) 60 Tablet 07/16/19 24 Active Glimepiride 1 MG Oral Tablet (Amaryl)Indications:Type 2 diabetes mellitus with hemoglobin A1c goal of less than 7.0% (HCC) Take one tablet daily in addition to Glimepiride 2mg if blood sugar is greater than 300. 30 Tablet 5 07/16/19 24 Active linaGLIPtin 5 MG Oral Tablet (Tradjenta)Indications:T ype 2 diabetes mellitus with hemoglobin A1c goal of less than 7.0% (HCC) Take 1 Tablet by mouth in the morning. 30 Tablet 11 07/16/19 24 Active Bisacodyl 10 MG Rectal Suppository (Dulcolax) Administer 1 Suppository into the rectum in the morning. 0 024 Discontin ued(Refil l) documented as of this encounter (statuses as of 09/02/2023) Active Problems Problem Noted Date Diagnosed Date [...] as of this encounter (statuses as of 09/02/2023) Resolved Problems Problem Noted Date Diagnosed Date Resolved Date Constipation 09/10/2012 03/07/2018 Overview: ICD-10 update of inactive term ACTIVE CASE MANAGEMENT Keke Solis RN [phone] 01/25/2008 03/03/2010 Type 2 diabetes mellitus wit h hemoglobin A1c goal of less than 7.0% 10/30/2003 03/14/2009 Overview: Per Diabetes Taxonomy. ICD-10 update of inactive term Intellectual disability 10/30/200302/15 Overview: ICD-10 update of inactive term DM type 2, not at goal 10/30/200309/11 Psychotic disorder 10/30/2003 0 documented as of this encounter (statuses as of 09/02/2023) Immunizations Name Administration Dates Next Due COVID-19 mRNA, LNP-s, No Pre serve, 2-Dose Series (Moderna) 07/10/2020,06/12/2020 COVID-19, mRNA, LNP-s, PF, B ooster, 100mcg/0.5mg (Moderna) 09/18/2021,04/01/2021 Covid-19, Mrna, Lnp-s, Pf, B ivalent, 50 Mcg, IM, 12 yrs and above (Moderna) 03/11/2022 Hepatitis B, 20+ yrs 09/10/2014,03/08/2014,02/06 PPD 03/09/2022, 0,03/08/2019,03/04,02/14/2015,01/31/2013,01/25/2012 ,03/26/2010,09/21/2008 Pneumococcal Conjugate Vacci ne, 20-valent ([id number]) 03/09/2022 Pneumococcal Polysaccharide PPV23 (Pneumovax) 09/16/2005 Seasonal [...] Progress Notes * Rosalinda Delgado, Community Health Senior Qualitative Researcher - 09/02/2023 1:29 PM EDT Telemedicine visit: No Community Health Senior Qualitative Researcher (CLAUDE) documentation: CLAUDE f/u call per Marycarmen Hubbard RN CM Spoke with Catrachita @ [employer] [facility] did not want to go more than 24 hours without a suppository if pt did not have BM---see other TE Has been having BM daily Appetite is great---eating chopped foods Reports energy level is good Excited to have outing to [employer] tmrw Electronically signed by Rosalinda Delgado Community Health Senior Qualitative Researcher at 09/02/2023 1:45 PM EDT documented in this encounter Plan of Treatment Upcoming Encounters Date Type Department Care Team (Late st Contact Info) Description 09/23/2023 10:00 AM EDT Office Visit Family Practice [facility] [address] [facility] [place] [address] Delmy Jacobsen PA-C [address] [facility] [place] [address] 10/19/2023 3:20 PM EDT Telemedicine Endocrinology, [place] [address] [place] [address] [place], Pharmacist Endocrinology [address] [place] [address] 10/28/2023 2:30 PM EDT Office Visit General Internal Medicine, [facility] [address] [place] [address] Rose Almaguer MD [address] [place] [address] 11/05/2023 9:30 AM EDT Nutrition Services Nutrition, [facility] [address] [facility] [place] [address] Brenda Rosales, SAMANTHAN 132 [facility] [place] [address] 12/30/2023 11:15 AM EDT Imaging Radiology [address] [facility] [place] [address] 01/25/2024 2:00 PM EDT Telemedicine Endocrinology, [place] [address] [place] [address] Kristine Lopez CRNP [address] [place] [address] 02/15/2024 8:40 AM EDT Office Visit Family Practice [facility] [address] [facility] [place] [address] Delmy Jacobsen PA-C [address] [facility] [place], [place] [address] 07/19/2024 10:30 AM EST Telemedicine Endocrinology, [place] [address] [place], [place] [phone] Carlita Louis PA-C [address] [place] [address] Health Maintenance Due Date Last Done Comments [...] D LEVEL ONCE IN A LIFETIME-USE SMARTSET# [id number] Completed 10/23/2022, 07/23/2022 Influenza Vaccine (FLU shot) Completed , 02/04/2022, 01/21/2021, Additional history exists GARDASIL-HPV IMMUNIZATION SERIES Aged Out No longer eligible based on patient's age to complete this topic MENINGOCOCCAL (MENACTRA/MENVEO) Aged Out No longer eligible based on patient's age to complete this topic documented as of this encounter Medical Devices Not on filedocumented as of this encounter Care Teams Manufacturers Agent Relationship Specialty Start Date End Date Vitor Esqueda III, MD [address] [place] [address] PCP - General Family Medicine 07/20/18 documented as of this encounter
--- OUTSIDE RECORDS SUMMARY | 2023-09-18 01:34 | External Medical Summary | Summary of Care ---
Author Name Unknown Organization [facility] Address [address] [place] [address] Phone [phone] Care Team Providers Care Brick Chimney Builder Name Role Phone Dheeraj NORWOOD MD, Shorty Baird Primary Care Provider [phone] Encounter Details Date Type Department Care Team (Late st Contact Info) Description 09/02/2023 Telephone Care Coordination and Integration [address] [place], [place] [phone] Rosalinda Delgado Community Health Social Service Manager [address] [place], [place] [phone] Allergies Active Allergy Reactions Criticality Noted Date Comments Aspirin 08/05/2016 Depakote Er Unknown 09/12/2007 Salicylates Unknown 10/30/2003 aspirin documented as of this encounter (statuses as of 09/02/2023) Medications Medication Sig Dispensed Refills Start Date End Date Status LEVETIRACETAM 250 MG PO TABS 1 tab twwice daily 0 Active Blood Glucose Monitoring Suppl ([employer] StuffTOUCH ULTRA SYSTEM) W/DEVICE KITIndications:Type 2 diabetes mellitus [...] goal of less than 7.0% ([facility]) TEST BLOOD SUGAR before breakfast and supper FOR DIABETES 200 Strip 2 02/17/20 23 Active Fluticasone Propionate 50 MCG/ACT Nasal Suspension (Flonase)Indications:Ac [place] maxillary sinusitis, recurrence not specified INSTILL 2 [...] produce bowel movement 30 Suppository 09/02/19 24 Active Bisacodyl 10 MG Rectal Suppository [...] term ACTIVE CASE MANAGEMENT Keke Solis RN [phone] 01/25/2008 03/03/2010 Type 2 diabetes mellitus wit [...] IM, 12 yrs and above (Moderna) 03/11/2022 Diptheria/Tetanus Adult (TD) 02/17/1999 Hepatitis B, 20+ yrs 09/10/2014,03/08/2014,02/06 PPD 03/09/2022, 0,03/08/2019,03/04,02/14/2015,01/31/2013,01/25/2012 ,03/26/2010,09/21/2008,04/25/2001,05/1988 Pneumococcal Conjugate Vacci ne, 20-valent ([id number]) 03/09/2022 Pneumococcal Polysaccharide PPV23 (Pneumovax) 09/16/2005 Seasonal Influenza, PF, 6 M & above, IM , (FluLaval or Fluzone) 03/10/2023,02/04/2022,01/21/2021,03/11,01/25/2019,03/07/2018,02/26/2017 Seasonal Influenza, Quadriva lent, No Preserve, IM 02/24/2016,02/14/2015 Seasonal Influenza, Split, I IV3, With Preserve, Inj 02/06/2014,01/31/2013,02/18/2012,01/24,02/26/2011,03/26/2010,04/06/2009 ,03/27/2008,02/15/2007,03/31/2005 TD, Preservative Free 03/08/2019,02/17/1999 TDAP (age 13 [...] as of this encounter Miscellaneous Notes * Addendum Note - Shorty Chávez III, MD - 09/02/2023 1:53 PM EDTAddended by: SHORTY CHÁVEZ on: 09/02/2023 01:53 PM Modules accepted: Orders * Telephone Encounter - Rosalinda Delgado Community Health Social Service Manager - 09/02/2023 1:39 PM EDT Spoke with Catrachita @ [employer] Current order states pt needs suppository every 24 hours to produce regular BM's Catrachita requesting order to be updated to state "please give suppository once daily to produce BM" Per [employer] protocol, since order states every 24 hours, if patient has BM Wednesday at 1pm and she does not have BM Wednesday by 1pm, staff must give suppository. Per Catrachita, pt had BM Vera at 1pm and refused suppository yesterday at 1pm,stating she felt like she needed to have BM but needed a few minutes. Staff noted med refusal. Pt had very large BM last evening. Catrachita states she has been having BM every calendar day, but time span is occasionally longer than 24 hours. If agreeable to updating order, please fax to: [phone] Attn Bertha (cannot be verbal order) documented in this encounter Plan of Treatment Upcoming Encounters Date Type Department Care Team (Late st Contact Info) Description 09/23/2023 10:00 AM EDT Office Visit Family Practice [facility] [place] [address] [place] [address] Delym Jacobsen PA-C [address] [place] [address] 10/19/2023 3:20 PM EDT Telemedicine Endocrinology, [place] [address] [place] [facility] [place] [address] [place], Pharmacist Endocrinology [address] [place] [facility] [place] [address] 10/28/2023 2:30 PM EDT Office Visit General Internal Medicine, [facility] [address] [place] [address] Rose Almaguer MD [address] [place] [address] 11/05/2023 9:30 AM EDT Nutrition Services Nutrition, [facility] [address] [place] [address] Brenda Rosales, SAMANTHAN [facility] [place] [address] 12/30/2023 11:15 AM EDT Imaging Radiology [facility] 1st [facility] [place] 132 [place] [address] 01/25/2024 2:00 PM EDT Telemedicine Endocrinology, [place] [address] [place] [address] Kristine Lopez CRNP [address] [place] [address] 02/15/2024 8:40 AM EDT Office Visit Family Practice [facility] 200 [place] [address] Delmy Jacobsen PA-C 200 [facility] [place], [place] [address] 07/19/2024 10:30 AM EST Telemedicine Endocrinology, [place] [address] [place] [address] Carlita Luois PA-C [address] [place] [address] Health Maintenance Due Date Last Done Comments [...] 07/14/2023, 09/0 09/2022, 11/30/2022, Additional history exists Diabetic Eye Exam 08/09/2024 08/10/2023, , 09/22/2017, Additional history exists DXA Scan 04/06/2025 04/06/2023 Pap Smear 07/14/2026 07/14/2023, 05/17, 06/04/2020, Additional history exists Lipid Panel 02/25/2028 02/24/2023, 12/15, 10/20/2019, Additional history exists Cervical Cancer Screening 07/14/2028 HPV/Co-Test 07/14/2028 07/14/2023 DTaP,Tdap,and Td Vaccines (3 - Td or Tdap) 03/08/2029 03/08/2019, 09/23/2009, 02/17/1999, Additional history exists Colonoscopy 02/03/2033 02/03/2023, 09/2 , 08/29/2013, Additional history exists Colorectal Cancer Screening 02/03/2033 Hepatitis B Completed 09/10/2014, 02/15, 02/06/2014 Zoster Vaccines Completed 04/30/2020, 08/2019, 11/09/2019 Pneumococcal Vaccine: Pediatrics (0 to 5 Years) and At-Risk Patients (6 to 64 Years) Completed 03/09/2022, 09/16/2005 VITAMIN D LEVEL ONCE IN A LIFETIME-USE SMARTSET# 64920 Completed 10/23/2022, 07/23/2022 Influenza Vaccine (FLU shot) Completed , 02/04/2022, 01/21/2021, Additional history exists GARDASIL-HPV IMMUNIZATION SERIES Aged Out No longer eligible based on patient's age to complete this topic MENINGOCOCCAL (MENACTRA/MENVEO) Aged Out No longer eligible based on patient's age to complete this topic documented as of this encounter Medical Devices Not on filedocumented as of this encounter Care Teams Brick Chimney Builder Relationship Specialty Start Date End Date Shorty Chávez III, MD [address] [place] [address] PCP - General Family Medicine 07/20/18 documented as of this encounter
--- OUTSIDE RECORDS SUMMARY | 2023-09-18 01:34 | External Medical Summary | Summary of Care ---
Author Name Unknown Organization [facility] Address [address] [place] [address] Phone [phone] Care Team Providers Care Mechanical Design Technician Name Role Phone Dheeraj NORWOOD MD, Vitor Baird Primary Care Provider [phone] Encounter Details Date Type Department Care Team (Late st Contact Info) Description 09/01/2023 Orders Only Family Practice [facility] 200 [facility] [address] Vitor Esqueda III, MD [address] [place] [address] Allergies Active Allergy Reactions Criticality Noted Date Comments Aspirin 08/05/2016 Depakote Er Unknown 09/12/2007 Salicylates Unknown 10/30/2003 aspirin documented as of this encounter (statuses as of 09/01/2023) Medications Medication Sig Dispensed Refills Start Date End Date Status LEVETIRACETAM 250 MG PO TABS 1 tab twwice daily 0 Active Blood Glucose Monitoring Suppl ([employer] PartnersTOUCH ULTRA SYSTEM) W/DEVICE KITIndications:Type 2 diabetes mellitus [...] of less than 7.0% ([facility]) TEST BLOOD SUGAR before breakfast and [...] the morning. 30 Tablet 11 4 Active Bisacodyl 10 MG Rectal Suppository (Dulcolax) Administer 1 Suppository into the rectum in the morning. 0 Active documented as of this encounter (statuses as of 09/01/2023) Active Problems Problem Noted Date Diagnosed Date [...] as of this encounter (statuses as of 09/01/2023) Resolved Problems Problem Noted Date Diagnosed Date Resolved Date Constipation 09/10/2012 03/07/2018 Overview: ICD-10 update of inactive term ACTIVE CASE MANAGEMENT Keke Solis RN [phone] 01/25/2008 03/03/2010 Type 2 diabetes mellitus wit h hemoglobin A1c goal of less than 7.0% 10/30/2003 03/14/2009 Overview: Per Diabetes Taxonomy. ICD-10 update of inactive term Intellectual disability 10/30/200302/15 Overview: ICD-10 update of inactive term DM type 2, not at goal 10/30/200309/11 Psychotic disorder 10/30/2003 0 documented as of this encounter (statuses as of 09/01/2023) Immunizations Name Administration Dates Next Due COVID-19 mRNA, LNP-s, No Pre serve, 2-Dose Series (Moderna) 07/10/2020,06/12/2020 COVID-19, mRNA, LNP-s, PF, B ooster, 100mcg/0.5mg (Moderna) 09/18/2021,04/01/2021 Covid-19, Mrna, Lnp-s, Pf, B ivalent, 50 Mcg, IM, 12 yrs and above (Moderna) 03/11/2022 Hepatitis B, 20+ yrs 09/10/2014,03/08/2014,02/06 PPD 03/09/2022, 0,03/08/2019,03/04,02/14/2015,01/31/2013,01/25/2012 ,03/26/2010,09/21/2008 Pneumococcal Conjugate Vacci ne, 20-valent ([id number]) 03/09/2022 Pneumococcal Polysaccharide PPV23 (Pneumovax) 09/16/2005 Seasonal [...] 10:00 AM EDT Office Visit Family Practice [facility] [address] [place] [address] [address] Delmy Jacobsen PA-C [address] [facility] [place] [address] 10/19/2023 3:20 PM EDT Telemedicine Endocrinology, [place] [address] [place] [address] [place], Pharmacist Endocrinology [address] [place] [address] 10/28/2023 2:30 PM EDT Office Visit General Internal Medicine, [facility] [address] [place] [address] Rose Almaguer MD [address] [place] [address] 11/05/2023 9:30 AM EDT Nutrition Services Nutrition, [facility] [place] [address] Brenda Rosales RDN [facility] [address] 12/30/2023 11:15 AM EDT Imaging Radiology [facility] 1st [facility] [place] 132 [place] [address] 01/25/2024 2:00 PM EDT Telemedicine Endocrinology, [place] [address] [place] [address] Kristine Lopez CRNP [address] [place] [address] 02/15/2024 8:40 AM EDT Office Visit Family Practice [facility] [address] [place] [address] Delmy Jacobsen PA-C [address] [place] [address] 07/19/2024 10:30 AM EST Telemedicine Endocrinology, [place] [address] [place] [address] Carlita Louis PA-C [address] [place] [address] Pending Results Name Type Priority Associated Diagnoses Date /Time DIABETIC EYE EXAM Other Routine 024 Health Maintenance Due Date Last Done Comments [...] 11/30/2022, Additional history exists Diabetic Eye Exam 08/31/2024 07/30/2021, , 06/07/2017, Additional history exists DXA Scan 04/06/2025 04/06/2023 [...] D LEVEL ONCE IN A LIFETIME-USE SMARTSET# [id number] Completed 10/23/2022, 07/23/2022 Influenza Vaccine (FLU shot) Completed , 02/04/2022, 01/21/2021, Additional history exists GARDASIL-HPV IMMUNIZATION SERIES Aged Out No longer eligible based on patient's age to complete this topic MENINGOCOCCAL (MENACTRA/MENVEO) Aged Out No longer eligible based on patient's age to complete this topic documented as of this encounter Medical Devices Not on filedocumented as of this encounter Care Teams Mechanical Design Technician Relationship Specialty Start Date End Date Vitor Esqueda III, MD 200 [place] [address] PCP - General Family Medicine 07/20/18 documented as of this encounter
--- OUTSIDE RECORDS SUMMARY | 2023-09-18 01:34 | External Medical Summary | Summary of Care ---
Author Name Unknown Organization [facility] Address [address] [place] [address] Phone [phone] Care Team Providers Care Underwriter Mortgage Loan Name Role Phone Dheeraj NORWOOD MD, Shorty Baird Primary Care Provider [phone] Encounter Details Date Type Department Care Team (Late st Contact Info) Description 09/02/2023 Telephone Care Coordination and Integration [address] [place], [place] [phone] Rosalinda Delgado [facility] [address] [place], [place] [phone] Allergies Active Allergy Reactions Criticality Noted Date Comments Aspirin 08/05/2016 Depakote Er Unknown 09/12/2007 Salicylates Unknown 10/30/2003 aspirin documented as of this encounter (statuses as of 09/02/2023) Medications Medication Sig Dispensed Refills Start Date End Date Status LEVETIRACETAM 250 MG PO TABS 1 tab twwice daily 0 Active Blood Glucose Monitoring Suppl (EqsQuestTOUCH ULTRA SYSTEM) W/DEVICE KITIndications:Type 2 diabetes mellitus [...] than 7.0% ([facility]) TEST BLOOD SUGAR before breakfast and supper FOR DIABETES 200 Strip 2 02/17/20 23 Active Fluticasone Propionate 50 MCG/ACT Nasal Suspension (Flonase)Indications:Ac [place] maxillary sinusitis, recurrence not specified INSTILL 2 [...] term ACTIVE CASE MANAGEMENT Keke Solis RN [phone] 01/25/2008 03/03/2010 Type 2 diabetes mellitus wit [...] 0,03/08/2019,03/04,02/14/2015,01/31/2013,01/25/2012 ,03/26/2010,09/21/2008,04/25/2001,05/1988 Pneumococcal Conjugate Vacci ne, 20-valent ([id number]) 03/09/2022 Pneumococcal Polysaccharide PPV23 (Pneumovax) 09/16/2005 Seasonal [...] Telephone Encounter - Rosalinda Delgado [facility] Grease Monkey - 09/02/2023 1:39 PM EDT Spoke with Catrachita @ [employer] Current order states pt needs suppository every 24 hours to produce regular BM's Catrachita requesting order to be updated to state "please give suppository once daily to produce BM" Per [employer] protocol, since order states every 24 hours, [...] agreeable to updating order, please fax to: [phone] Attn Bertha (cannot be verbal order) documented in this encounter Plan of Treatment Upcoming Encounters Date Type Department Care Team (Late st Contact Info) Description 09/23/2023 10:00 AM EDT Office Visit Family Practice [facility] [place] [address] [place] [address] Delmy Jacobsen PA-C [address] [place] [address] 10/19/2023 3:20 PM EDT Telemedicine Endocrinology, [place] [address] [place] [address] [place], Pharmacist Endocrinology [address] [place] [address] 10/28/2023 2:30 PM EDT Office Visit General Internal Medicine, [facility] [address] [place] [address] Roes Almaguer MD [address] [place] [address] 11/05/2023 9:30 AM EDT Nutrition Services Nutrition, [facility] [address] [place] [address] Brenda Rosales, SAMANTHAN 132 [place] [address] 12/30/2023 11:15 AM EDT Imaging Radiology [facility] 1st [facility], [place] [address] [place] [address] 01/25/2024 2:00 PM EDT Telemedicine Endocrinology, [place] [address] [place] [address] Kristine Lopez CRNP [address] [place] [address] 02/15/2024 8:40 AM EDT Office Visit Family Practice [facility] 200 [facility] [place] [address] Delmy Jacobsen PA-C 200 [facility] [place], [place] [address] 07/19/2024 10:30 AM EST Telemedicine Endocrinology, [place] [address] [place] [address] Carlita Louis PA-C [address] [place] [address] Health Maintenance Due Date Last Done Comments [...] D LEVEL ONCE IN A LIFETIME-USE SMARTSET# [id number] Completed 10/23/2022, 07/23/2022 Influenza Vaccine (FLU shot) Completed , 02/04/2022, 01/21/2021, Additional history exists GARDASIL-HPV IMMUNIZATION SERIES Aged Out No longer eligible based on patient's age to complete this topic MENINGOCOCCAL (MENACTRA/MENVEO) Aged Out No longer eligible based on patient's age to complete this topic documented as of this encounter Medical Devices Not on filedocumented as of this encounter Care Teams Underwriter Mortgage Loan Relationship Specialty Start Date End Date Shorty Chávez III, MD [address] [place] [address] PCP - General Family Medicine 07/20/18 documented as of this encounter
--- OUTSIDE RECORDS SUMMARY | 2023-09-18 01:35 | External Medical Summary | Summary of Care ---
Author Name Unknown Organization [facility] Address [address] [place] [address] Phone [phone] Care Team Providers Care Graphic Art Technician Name Role Phone Dheeraj NORWOOD MD, Vitor Baird Primary Care Provider [phone] Reason for Visit * Reason Onset Date Comments Test Results 08/31/2023 Encounter Details Date Type Department Care Team (Late st Contact Info) Description 08/31/2023 Telephone Family Practice [facility] [address] [place] [address] Vitor Esqueda III, MD [address] [place] [address] Test Results Allergies Active Allergy Reactions Criticality Noted Date Comments Aspirin 08/05/2016 Depakote Er Unknown 09/12/2007 Salicylates Unknown 10/30/2003 aspirin documented as of this encounter (statuses as of 08/31/2023) Medications Medication Sig Dispensed Refills Start Date End Date Status LEVETIRACETAM 250 MG PO TABS 1 tab twwice daily 0 Active Blood Glucose Monitoring Suppl ([employer] ULTRA SYSTEM) W/DEVICE KITIndications:Type 2 diabetes mellitus with hemoglobin A1c goal of less than 7.0% ([facility]) Use as directed 4 times a day as needed for Hyperglycemia (high sugar) or Hypoglycemia (low sugar). f E11.9 1 Kit 0 7 Active MEDICAL INSTRUCTIONSIndications: Type 2 diabetes mellitus with hemoglobin A1c goal of less than 7.0% ([facility]) Check glucose daily before supper. May skip [...] A1c goal of less than 7.0% ([facility]) TEST BLOOD SUGAR before breakfast and supper [...] as of this encounter (statuses as of 08/31/2023) Active Problems Problem Noted Date Diagnosed Date [...] as of this encounter (statuses as of 08/31/2023) Resolved Problems Problem Noted Date Diagnosed Date Resolved Date Constipation 09/10/2012 03/07/2018 Overview: ICD-10 update of inactive term ACTIVE CASE MANAGEMENT Keke Solis RN [phone] 01/25/2008 03/03/2010 Type 2 diabetes mellitus wit h hemoglobin A1c goal of less than 7.0% 10/30/2003 03/14/2009 Overview: Per Diabetes Taxonomy. ICD-10 update of inactive term Intellectual disability 10/30/200302/15 Overview: ICD-10 update of inactive term DM type 2, not at goal 10/30/200309/11 Psychotic disorder 10/30/2003 0 documented as of this encounter (statuses as of 08/31/2023) Immunizations Name Administration Dates Next Due COVID-19 mRNA, LNP-s, No Pre serve, 2-Dose Series (Moderna) 07/10/2020,06/12/2020 COVID-19, mRNA, LNP-s, PF, B ooster, 100mcg/0.5mg (Moderna) 09/18/2021,04/01/2021 Covid-19, Mrna, Lnp-s, Pf, B ivalent, 50 Mcg, IM, 12 yrs and above (Moderna) 03/11/2022 Hepatitis B, 20+ yrs 09/10/2014,03/08/2014,02/06 PPD 03/09/2022, 0,03/08/2019,03/04,02/14/2015,01/31/2013,01/25/2012 ,03/26/2010,09/21/2008 Pneumococcal Conjugate Vacci ne, 20-valent ([id number]) 03/09/2022 Pneumococcal Polysaccharide PPV23 (Pneumovax) 09/16/2005 Seasonal [...] encounter Miscellaneous Notes * Telephone Encounter - Jasmin Curran, MED ASSIST - 08/31/2023 5:46 PM EDT ----- Message from Vitor Esqueda III, MD sent at 08/31/2023 1:53 PM EDT ----- No DVT either leg documented in this encounter Plan of Treatment Upcoming Encounters Date Type Department Care Team (Late st Contact Info) Description 09/23/2023 10:00 AM EDT Office Visit Family Practice [facility] [address] [place] [address] Delmy Jacobsen PA-C [address] [place] [address] 10/19/2023 3:20 PM EDT Telemedicine Endocrinology, [place] [address] [place] [address] [place], Pharmacist Endocrinology [address] [place] [address] 10/28/2023 2:30 PM EDT Office Visit General Internal Medicine, [facility] [address] [place] [address] Rose Almaguer MD [address] [place] [address] 11/05/2023 9:30 AM EDT Nutrition Services Nutrition, [facility] [address] [facility] [place] [address] Brenda Rosales RDN [address] [facility] [address] 12/30/2023 11:15 AM EDT Imaging Radiology [facility] [address] [facility] [address] [facility] [place] [address] 01/25/2024 2:00 PM EDT Telemedicine Endocrinology, [place] [address] [place] [address] Kristine Lopez CRNP [address] [place] [address] 02/15/2024 8:40 AM EDT Office Visit Family Practice [facility] [place] [address] [place] [address] Delmy Jacobsen PA-C [address] [place] [address] 07/19/2024 10:30 AM EST Telemedicine Endocrinology, [place] [address] [place] [address] Carlita Louis PA-C [address] [place] [address] Health Maintenance Due Date Last Done Comments [...] D LEVEL ONCE IN A LIFETIME-USE SMARTSET# [id number] Completed 10/23/2022, 07/23/2022 Influenza Vaccine (FLU shot) Completed , 02/04/2022, 01/21/2021, Additional history exists GARDASIL-HPV IMMUNIZATION SERIES Aged Out No longer eligible based on patient's age to complete this topic MENINGOCOCCAL (MENACTRA/MENVEO) Aged Out No longer eligible based on patient's age to complete this topic documented as of this encounter Medical Devices Not on filedocumented as of this encounter Care Teams Graphic Art Technician Relationship Specialty Start Date End Date Vitor Esqueda III, MD [address] [place] [address] PCP - General Family Medicine 07/20/18 documented as of this encounter
[2023-09-18 07:44] LABS: Hematocrit (blood only) 37.8 % (37.0-47.0); Hemoglobin 12.7 g/dl (12.0-16.0); Mean Corpuscular Hemoglobin 31.8 pg (25.0-34.0); Mean Corpuscular Hgb Conc 33.6 g/dL (32.0-36.0); Mean Corpuscular Volume 94.7 fL (80.0-100.0); Mean Platelet Volume 11.6 fL (9.4-12.4); Platelet Count 127 K/uL (130-400); RDW Coefficient of Variation 14.8 % (11.5-14.5); RDW Standard Deviation 52.7 fL (36.4-46.3); Red Blood Count 3.99 M/uL (4.20-5.40); White Blood Count 6.24 K/ul (4.8-10.8)
[2023-09-18 08:02] LABS: BUN Creatinine Ratio 23.5 (10-20); Calcium 8.5 mg/dl (8.6-10.3); Creatinine Clr Calc Pharmacy 109.5 ml/min; Est GFR (African American) 120.3 ml/min; Est GFR (Non-African American) 103.8 ml/min; Potassium 4.1 mmol/L (3.5-5.1)
--- NOTE | 2023-09-18 10:30 | XRay Report ---
KUB CLINICAL HISTORY: Constipation. FINDINGS: 3 AP, portable, supine abdominal radiographs are compared to study dated 09/17/2023 and corre lated with abdominal CT dated 09/15/2023. There is mild gaseous distention of the bowel loops with no r adiographic evidence of high-grade obstruction. There is moderate to severe constipation. No evidence of intraperitoneal free air is seen on these supine images. There are no abnormal abdominal calcific ations. Phleboliths are seen in the pelvis. The skeletal structures are osteopenic. There is moderate to advanced lumbosacral spondylosis. Postsurgical change seen in the right proximal femur. There are chronic/healed bilateral rib fractures. IMPRESSION: 1. Moderate to severe constipation. 2. There is gaseous distention of the bowel loops with no radiographic evidence of high-grade obstruc tion. Electronically signed by: Carlos Savage M.D. 09/18/2023 10:29 AM
[2023-09-18] MEDS: LANTUS PER UNIT CHARGE SQ SCH (13:29)
--- NOTE | 2023-09-18 15:41 | Hospitalist Progress Note ---
Date of Service September 18, 2023 Assessment & Plan (1) Weakness: Plan: Generalized weakness Recurrent falls UTI --CT head: No acute intracranial process. --Right knee, femur x-ray showing no signs of fractures --Blood culture: Negative to date -- Urine culture grew E. coli Continue Rocephin PT OT Fall precautions Encouraged to ambulate Transition to p.o. antibiotics as able Hyperglycemia H/O DM II HbA1c 5.3 hold p.o. medications Blood sugars have been running high at personal care facility Continue insulin while hospitalized Monitor blood glucose levels Consulted pharmacy for glycemic management Constipation Continue bowel regimen Encouraged to ambulate Hyperlipidemia on statin Seizure disorder Paranoid schizophrenia with auditory hallucinations Intellectual impairment --Follow Dilantin levels DVT Px: Lovenox SQ Code Status Full code Admission and Anticipated Discharge Date Admission Date: September 16, 2023 Subjective Patient is seen and examined at bedside Poor historian secondary to cognitive dysfunction Unable to obtain much history No distress on exam Urine culture growing E. coli Review of Systems Review of Systems: All systems reviewed & are unremarkable except as noted in Subjective Physical Exam Physical Exam: Physical Exam: Vitals signs as noted above General Appearance:Thin, chronic ill, no apparent distress Head: normocephalic, Atraumatic Eyes: normal inspection, EOMI Neck: supple, Trachea midline Respiratory/Chest: Decreased breath sounds, CTA, No accessory muscle use Cardiovascular: S1, S2, No murmur Abdomen/GI:Soft, Non tender, mild distended, Bowel sounds present Extremities/Musculoskeletal:normal inspection, Trace edema Neurologic/Psych:AAOX2, grossly no focal neurological deficits, + Intellectual disability Skin: normal color, warm Results & Data Results & Data Vital Signs (Past 12 Hours) Vital Signs Temp Pulse Resp BP Pulse Ox O2 Del Method 09/18/23 11:55 36.7 C 93 H 18 115/56 L 99 Room Air 09/18/23 08:10 36.7 C 83 18 122/77 98 Room Air 09/18/23 04:00 36.8 C 77 18 103/62 97 Room Air Laboratory Results Short CBC 09/18/23 Range/Units 07:07 WBC 6.24 (4.8-10.8) K/ul Hgb 12.7 (12.0-16.0) g/dl Hct 37.8 (37.0-47.0) % Plt Count 127 L (130-400) K/uL BMP 09/18/23 07:07 Sodium 140 Potassium 4.1 Chloride 107 Carbon Dioxide 26 BUN 12 Creatinine 0.51 L Glucose 178 H Calcium 8.5 L
--- NOTE | 2023-09-18 15:59 | Hospitalist Progress Note ---
Date of Service September 18, 2023 Assessment & Plan (1) Weakness: Plan: Generalized weakness Recurrent falls UTI --CT head: No acute intracranial process. --Right knee, femur x-ray showing no signs of fractures --Blood culture: Negative to date -- Urine culture grew E. coli Continue Rocephin PT OT Fall precautions Encouraged to ambulate Transition to p.o. antibiotics as able Hyperglycemia H/O DM II HbA1c 5.3 hold p.o. medications Blood sugars have been running high at personal care facility Continue insulin while hospitalized Monitor blood glucose levels Consulted pharmacy for glycemic management Constipation ? Secondary to Clozapine Continue bowel regimen Encouraged to ambulate Consult psychiatry to see if clozapine dose can be decreased Enema as needed Will repeat KUB tomorrow Hyperlipidemia on statin Seizure disorder Paranoid schizophrenia with auditory hallucinations Intellectual impairment --Follow Dilantin levels DVT Px: Lovenox SQ Code Status Full code Admission and Anticipated Discharge Date Admission Date: September 16, 2023 Subjective Patient is seen and examined at bedside Poor historian secondary to cognitive dysfunction Unable to obtain much history No distress on exam Urine culture growing E. coli Review of Systems Review of Systems: All systems reviewed & are unremarkable except as noted in Subjective Physical Exam Physical Exam: Physical Exam: Vitals signs as noted above General Appearance:Thin, chronic ill, no apparent distress Head: normocephalic, Atraumatic Eyes: normal inspection, EOMI Neck: supple, Trachea midline Respiratory/Chest: Decreased breath sounds, CTA, No accessory muscle use Cardiovascular: S1, S2, No murmur Abdomen/GI:Soft, Non tender, mild distended, Bowel sounds present Extremities/Musculoskeletal:normal inspection, Trace edema Neurologic/Psych:AAOX2, grossly no focal neurological deficits, + Intellectual disability Skin: normal color, warm Results & Data Results & Data Vital Signs (Past 12 Hours) Vital Signs Temp Pulse Resp BP Pulse Ox O2 Del Method 09/18/23 11:55 36.7 C 93 H 18 115/56 L 99 Room Air 09/18/23 08:10 36.7 C 83 18 122/77 98 Room Air 09/18/23 04:00 36.8 C 77 18 103/62 97 Room Air Laboratory Results Short CBC 09/18/23 Range/Units 07:07 WBC 6.24 (4.8-10.8) K/ul Hgb 12.7 (12.0-16.0) g/dl Hct 37.8 (37.0-47.0) % Plt Count 127 L (130-400) K/uL BMP 09/18/23 07:07 Sodium 140 Potassium 4.1 Chloride 107 Carbon Dioxide 26 BUN 12 Creatinine 0.51 L Glucose 178 H Calcium 8.5 L
[2023-09-18] MEDS: bisacodyL 10 MG SUPP PR ONE (16:39)
[2023-09-19 07:56] LABS: BUN Creatinine Ratio 28.6 (10-20); Calcium 8.5 mg/dl (8.6-10.3); Creatinine Clr Calc Pharmacy 129.7 ml/min; Est GFR (African American) 128.2 ml/min; Est GFR (Non-African American) 110.6 ml/min; Potassium 4.1 mmol/L (3.5-5.1)
--- NOTE | 2023-09-19 09:37 | XRay Report ---
KUB HISTORY: Constipation COMPARISON: KUB 09/18/2023. FINDINGS: The bowel gas pattern is unremarkable. There are no dilated loops of small bowel to suggest an obstruction. No renal calculi. No ureteral calculi. No pneumoperitoneum or pneumatosis. Postoper ative changes again noted within the right femur. Large amount well-formed stool seen throughout the colon. This remains unchanged. This results in distention of the colon which is also unchanged. There is also mild gaseous distention of the small bowel, unchanged. This favors an ileus. IMPRESSION: 1. Large amount of well-formed stool seen throughout the colon, unchanged. 2. Gaseous distention of the large and small bowel are again noted. This favors an ileus ACT 112: Negative or not required by law. Electronically signed by: Kendall Sanderson M.D. 09/19/2023 9:36 AM
[2023-09-19] MEDS: POLYETHYLENE (MIRALAX) 17 GM PACK PO SCH (13:48)
--- NOTE | 2023-09-19 16:06 | Hospitalist Progress Note ---
Date of Service September 19, 2023 Assessment & Plan (1) Weakness: Plan: Generalized weakness Recurrent falls UTI --CT head: No acute intracranial process. --Right knee, femur x-ray showing no signs of fractures --Blood culture: Negative to date -- Urine culture grew E. coli Continue Rocephin>> transition to cefdinir PT OT Fall precautions Encouraged to ambulate Hyperglycemia H/O DM II HbA1c 5.3 hold p.o. medications Blood sugars have been running high at personal care facility Continue insulin while hospitalized Monitor blood glucose levels Consulted pharmacy for glycemic management Chronic Constipation ? Secondary to Clozapine Abdomen soft, nontender, patient denies any abdominal pain Continue bowel regimen Encouraged to ambulate Discussed with psychiatry regarding likely clozapine causing constipation Psychiatry recommends to follow-up as outpatient Enema as needed Encourage ambulation Hyperlipidemia on statin Seizure disorder Paranoid schizophrenia with auditory hallucinations Intellectual impairment --Follow Dilantin levels DVT Px: Lovenox SQ Code Status Full code Admission and Anticipated Discharge Date Admission Date: September 16, 2023 Subjective Patient is seen and examined at bedside Poor historian secondary to cognitive dysfunction Had BM overnight Denies any abdominal pain, nausea, vomiting Tolerating diet i Review of Systems Review of Systems: Other Physical Exam Physical Exam: Physical Exam: Vitals signs as noted above General Appearance:Thin, chronic ill, no apparent distress Head: normocephalic, Atraumatic Eyes: normal inspection, EOMI Neck: supple, Trachea midline Respiratory/Chest: Decreased breath sounds, CTA, No accessory muscle use Cardiovascular: S1, S2, No murmur Abdomen/GI:Soft, Non tender, mild distended, Bowel sounds present Extremities/Musculoskeletal:normal inspection, Trace edema Neurologic/Psych:AAOX2, grossly no focal neurological deficits, + Intellectual disability Skin: normal color, warm Results & Data Results & Data Vital Signs (Past 12 Hours) Vital Signs Temp Pulse Pulse Resp BP Pulse Ox O2 Del Method 09/19/23 15:53 36.7 C 89 18 117/75 98 Room Air 09/19/23 11:30 37.1 C 88 17 113/71 98 Room Air 09/19/23 08:33 37.2 C 88 17 111/66 99 Room Air 09/19/23 08:00 90 Laboratory Results [facility] 09/19/23 07:02 Sodium 141 Potassium 4.1 Chloride 108 H Carbon Dioxide 26 BUN 12 Creatinine 0.42 L Glucose 167 H Calcium 8.5 L
--- NOTE | 2023-09-19 19:10 | Electrocardiogram Report ---
Test Reason : Blood Pressure : / mmHG Vent. Rate : 097 BPM Atrial Rate : 097 BPM P-R Int : 130 ms QRS Dur : 090 ms QT Int : 336 ms P-R-T Axes : 047 -33 053 degrees QTc Int : 426 ms Normal sinus rhythm Left axis deviation Possible Anterior infarct , age undetermined Abnormal ECG When compared with ECG of 15-AUG-2023 08:32, No significant change was found Confirmed by Maikel Alfaro ([id number]) on 09/19/2023 7:10:12 PM Referred By: REFERRED SELF Confirmed By:Maikel Alfaro
[2023-09-20 06:53] LABS: BUN Creatinine Ratio 21.4 (10-20); Calcium 8.5 mg/dl (8.6-10.3); Est GFR (African American) 128.2 ml/min; Est GFR (Non-African American) 110.6 ml/min; Potassium 3.9 mmol/L (3.5-5.1)
--- NOTE | 2023-09-20 07:42 | XRay Report ---
KUB HISTORY: Ileus COMPARISON: KUB 09/19/2023. FINDINGS: Large amount well-formed stool again seen throughout the colon. This is similar to the prio r study. Postoperative changes within the proximal right femur. Mildly dilated gas-filled loops of la rge and small bowel are again noted suggestive of an ileus. No renal calculi. No ureteral calculi. C alcifications in the deep pelvis likely represent phleboliths. No pneumoperitoneum or pneumatosis. IMPRESSION: 1. Large amount well-formed stool again seen throughout the colon, unchanged. 2. Gaseous distention of the large and small bowel which favors an ileus. ACT 112: Negative or not required by law. Electronically signed by: Kendall Sanderson M.D. 09/20/2023 7:41 AM
[2023-09-20] MEDS: CEFDINIR 300 MG CAP PO SCH (08:09)
--- NOTE | 2023-09-20 10:45 | Gastrointestinal Consultation ---
Date of Consultation September 20, 2023 Assessment & Plan (1) Colon distention: (2) Constipation in female: Plan 63 y.o. female admitted with weakness and falls with constipation and ileus, likely in the setting of diabetes, limited mobility and lack of awareness of body cues for defecation. 1. Start MiraLAX 17 g po BID x 1 week, then once daily in 8 ounces of liquid thereafter for maintenance. 2. Push fluids. 3. Supportive care per primary team. Thank you for allowing us to participate in the care of this patient. If you have any questions or concerns, please do not hesitate to contact us. Supervising Physician Co-Signing Physician Notes Agree with SERGIO Beck as above Interviewed and examined patient and agree with above. Abd: Soft, NT, Distended Continue bowel regimen, other medications as prescribed and supportive care. History of Present Illness Reason for Consultation: Ileus/Constipation Requesting Physician: Dr. Moreland Attending Physician: Cm Moreland MD History of Present Illness Patient is a 63 y.o. female with a history of seizure disorder, paranoid schizophrenia, DM, GERD, HSV, HLD and HTN admitted with weakness and falls prior to admission. GI has been consulted due to KUB imaging suggestive of large colonic retention with suspected ileus. Patient does not participate in providing history this morning. Per staff, she did have a bowel movement yesterday. She does not have a routine bowel regimen. Allergies Allergy/AdvReac Type Severity Reaction Status Date / Time divalproex sodium Allergy Unknown Unknown Verified 09/15/23 22:03 [From Depakote] salicylates Allergy Unknown Unknown Verified 09/15/23 22:03 valproic acid Allergy Unknown Unknown Verified 09/15/23 22:03 aspirin AdvReac Severe STOMACH Verified 09/15/23 22:03 ULCER BLEEDING Home Medications Medication Instructions Recorded Confirmed Type atorvastatin 40 mg tablet 40 mg PO HS 07/17/18 09/15/23 History glimepiride 2 mg tablet 2 mg PO BID 07/17/18 09/15/23 History multivit-iron 18 mg-folic acid 400 1 tab PO QAM 07/17/18 09/15/23 History mcg-calcium 500 mg-minerals tablet (Women's One Daily) vitamin B complex 1 tab PO QAM 08/25/18 09/15/23 History fluticasone propionate 50 2 sprays intranasal QPM 02/15/19 09/15/23 History mcg/actuation nasal spray,suspension ammonium lactate 12 % topical cream 1 applic topical QAM 05/21/19 09/15/23 History docusate sodium 100 mg capsule 100 mg PO BID 05/21/19 09/15/23 History (Colace) triamcinolone acetonide 0.1 % 1 applic topical BID PRN Rash 07/10/21 09/15/23 History topical cream clozapine 200 mg tablet 600 mg PO DAILY@199910/31/21 09/15/23 History valacyclovir 500 mg tablet 500 mg PO DAILY 02/18/22 09/15/23 History glimepiride 1 mg tablet 1 mg PO DIRECTED PRN BSG >300. 10/14/22 09/15/23 History polyethylene glycol 3350 17 gram 17 g PO BID 10/19/22 09/15/23 History oral powder packet (Miralax) calcium citrate 315 mg-vitamin D3 2 tab PO QAM ##0 02/11/23 09/15/23 History 5 mcg (200 unit) tablet (Calcium Citrate + D) albuterol sulfate 90 mcg/actuation 2 puff inhalation QIDR PRN 03/03/23 09/15/23 Rx aerosol inhaler (Ventolin HFA) shortness of breath or wheezing #6.7 grams dextromethorphan-guaifenesin 5 10 ml PO Q6H PRN cough #118 mL 03/03/23 09/15/23 Rx mg-100 mg/5 mL oral liquid (Robitussin Cough-Chest Congestion DM) acetaminophen 500 mg tablet 1,000 mg PO Q6 PRN Pain 06/07/23 09/15/23 History (Tylenol Extra Strength) dextromethorphan-guaifenesin 30 1 - 2 tab PO Q12H PRN Nasal 06/07/23 09/15/23 History mg-600 mg tablet extended Congestion hr (Mucinex DM) diphenhydramine HCl 25 mg tablet 25 mg PO .Q4-6 PRN .allergy 06/07/23 09/15/23 History (Benadryl Allergy) famotidine 40 mg tablet 40 mg PO HS 06/07/23 09/15/23 History nut.tx.gluc.intol,lac-free,soy 1 ea PO BID 06/07/23 09/15/23 History (Glucerna oral liquid) linagliptin 5 mg tablet (Tradjenta) 5 mg PO DAILY 08/15/23 09/15/23 History bisacodyl 10 mg rectal suppository 10 mg DC DAILY PRN constipation 08/23/23 09/15/23 Rx #30 ea levetiracetam 250 mg tablet 250 mg PO BID 90 days #180 tabs 08/30/23 09/15/23 Rx (Keppra) phenytoin sodium extended 100 mg 200 mg (2 x 100 mg) PO BID 90 days 08/30/23 09/15/23 Rx capsule (Dilantin Extended) #360 caps Patient History Medical History Seizure disorder GERD (gastroesophageal reflux disease) Acute metabolic encephalopathy Head injury Fall Acute alteration in mental status Elevated lactic acid level Weakness AMS (altered mental status) DMII (diabetes mellitus, type 2) HSV (herpes simplex virus) anogenital infection Complex partial seizure Depression with anxiety Heart murmur Onychomycosis Hypertension Schizophrenia Surgical History History of colonoscopy Family History Mother Diabetes Other Seizures Social History Smoking Status: Never smoker Hx Alcohol Use: No Hx Substance Use: No Preferred Language: Beninese Communication Ability: Effective Communication Ability Comment: Intellectual Disability Visual Impairment: No Limitations Hearing Ability: Normal Deckhand Required: No Beliefs That Will Affect Care: None marital status: Single Current Living Situation: Other Current Living Situation Comment: longterm current occupational status: disabled Other Information That Helps Us Care for You: No Feels Safe at Home: Yes Safety Concerns: Feels Safe At This Time Assistive Devices: Walker and Wheelchair Review of Systems 2 Review of Systems: Unobtainable due to mental health condition Physical Exam Constitutional: no acute distress VSS noted. Respiratory: normal respiratory effort, lungs clear to auscultation Cardiovascular: Rate/Rhythm: regular rate and regular rhythm Gastrointestinal (Abdomen): Inspection/Auscultation: + abdomen distended and normal bowel sounds Percussion/Palpation: abdomen soft; no guarding and abdomen not rigid no facial grimace with abdominal palpation Psychiatric: Orientation: alert Results & Data Vital Signs (Past 12 Hours) Vital Signs Temp Pulse Resp BP Pulse Ox O2 Del Method 09/20/23 07:13 36.7 C 82 18 108/70 98 Room Air Diagnostic Findings Laboratory Results WBC 6.24 K/ul (4.8-10.8) 09/18/23 07:07 RBC 3.99 M/uL (4.20-5.40) L 09/18/23 07:07 Hgb 12.7 g/dl (12.0-16.0) 09/18/23 07:07 Hct 37.8 % (37.0-47.0) 09/18/23 07:07 MCV 94.7 fL (80.0-100.0) 09/18/23 07:07 MCH 31.8 pg (25.0-34.0) 09/18/23 07:07 MCHC 33.6 g/dL (32.0-36.0) 09/18/23 07:07 RDW Std Deviation 52.7 fL (36.4-46.3) H 09/18/23 07:07 RDW Coeff of Lilinaa 14.8 % (11.5-14.5) H 09/18/23 07:07 Plt Count 127 K/uL (130-400) L 09/18/23 07:07 MPV 11.6 fL (9.4-12.4) 09/18/23 07:07 Immature Gran % (Auto) 0.3 % 09/16/23 01:37 Neut % (Auto) 79.0 % 09/16/23 01:37 Lymph % (Auto) 9.5 % 09/16/23 01:37 [place] % (Auto) 11.0 % 09/16/23 01:37 Eos % (Auto) 0.0 % 09/16/23 01:37 Baso % (Auto) 0.2 % 09/16/23 01:37 Neut # (Auto) 8.26 K/uL (1.40-6.50) H 09/16/23 01:37 Lymph # (Auto) 0.99 K/uL (1.20-3.40) L 09/16/23 01:37 [place] # (Auto) 1.15 K/uL (0.11-0.59) H 09/16/23 01:37 Eos # (Auto) 0.00 K/uL (0.00-0.50) 09/16/23 01:37 Baso # (Auto) 0.02 K/uL (0.00-0.20) 09/16/23 01:37 Immature Gran # (Auto) 0.03 K/uL (0.01-0.20) 09/16/23 01:37 PT 10.5 Seconds (9.0-12.0) 09/15/23 16:03 INR 1.0 (0.9-1.1) 09/15/23 16:03 APTT 23 Seconds (21-31) 09/15/23 16:03 PTT Ratio 0.9 09/15/23 16:03 Sodium 139 mmol/L (136-145) 09/20/23 06:05 Potassium 3.9 mmol/L (3.5-5.1) 09/20/23 06:05 Chloride 105 mmol/L (98-107) 09/20/23 06:05 Carbon Dioxide 27 mmol/L (21-32) 09/20/23 06:05 Anion Gap 7 (3-11) 09/20/23 06:05 BUN 9 mg/dl (6-23) 09/20/23 06:05 Creatinine 0.42 mg/dl (0.6-1.2) L 09/20/23 06:05 Est Cr Clr Drug Dosing 125.0 ml/min 09/20/23 06:05 Est GFR ( Amer) 128.2 ml/min 09/20/23 06:05 Est GFR (Non-Af Amer) 110.6 ml/min 09/20/23 06:05 BUN/Creatinine Ratio 21.4 (10-20) H 09/20/23 06:05 Glucose 142 mg/dl (70-99(Fasting)) H 09/20/23 06:05 POC Glucose 151 mg/dl (70-99) H 09/20/23 07:45 Estimat Average Glucose 105 mg/dl 09/15/23 16:03 Hemoglobin A1c 5.3 % (4.5-5.6) 09/15/23 16:03 Lactate 1.5 mmol/L (0.4-2.0) 09/16/23 01:37 Calcium 8.5 mg/dl (8.6-10.3) L 09/20/23 06:05 Magnesium 1.8 mg/dl (1.7-2.4) 09/17/23 06:19 Total Bilirubin 0.3 mg/dl (0.2-1.0) 09/15/23 16:03 AST 24 U/L (13-39) 09/15/23 16:03 ALT 46 U/L (7-52) 09/15/23 16:03 Alkaline Phosphatase 135 U/L (34-104) H 09/15/23 16:03 Total Creatine Kinase 54 U/L (26-192) 09/15/23 20:36 Troponin I High Sens < 2.3 pg/ml (0-14) 09/15/23 16:03 Total Protein 7.5 gm/dl (6.0-8.3) 09/15/23 16:03 Albumin 4.5 gm/dl (3.4-5.0) 09/15/23 16:03 Globulin 3.0 gm/dl (2.5-4.0) 09/15/23 16:03 Albumin/Globulin Ratio 1.5 (0.9-2) 09/15/23 16:03 Lipase 70 U/L (11-82) 09/15/23 20:36 Urine Color Yellow 09/16/23 02:40 Urine Appearance Clear (Clear) 09/16/23 02:40 Urine pH 6.0 (4.5-7.5) 09/16/23 02:40 Ur Specific [place] > 1.045 (1.000-1.030) H 09/16/23 02:40 Urine Protein Trace (Negative) H 09/16/23 02:40 Urine Glucose (UA) 2+ (Negative) H 09/16/23 02:40 Urine Ketones Negative (Negative) 09/16/23 02:40 Urine Blood Negative (Negative) 09/16/23 02:40 Urine Nitrite Negative (Negative) 09/16/23 02:40 Urine Bilirubin Negative (Negative) 09/16/23 02:40 Urine Urobilinogen Negative (Negative) 09/16/23 02:40 Ur Leukocyte Esterase 1+ (Negative) H 09/16/23 02:40 Urine WBC (Auto) >50 /hpf (0-5) H 09/16/23 02:40 Urine RBC (Auto) 0-2 /hpf (0-2) 09/16/23 02:40 U Hyaline Cast (Auto) 0-2 /lpf (0-2) 09/16/23 02:40 U Epithel Cells (Auto) 0-2 /hpf (0-2) 09/16/23 02:40 Urine Bacteria (Auto) None Seen (None Seen) 09/16/23 02:40 Phenytoin 7.4 L 09/15/23 20:32 Staphylococcus sp PCR DETECTED (NotDetected) A 09/16/23 20:34 mecA/C-Methicil Resis Gene Not Detected (NotDetected) 09/16/23 20:34 Staph epidermidis (PCR) DETECTED (NotDetected) A 09/16/23 20:34 Bld Cult ID Panel PCR See PCR Comment (NotDetected) 09/16/23 20:34 Impressions Chest X-Ray 09/15/23 15:21 SINGLE VIEW CHEST CLINICAL HISTORY: Near syncope FINDINGS: 2 AP upright chest radiographs are compared to study dated 08/15/2023. The cardiomediastinal silhouette is unremarkable. There is chronic elevation of the left hemidiaphragm. Atelectasis is noted at both lung bases. No airspace consolidation or large pleural effusion is identified. The lungs and pleural spaces are clear. No pneumothorax is seen. The skeletal structures are osteopenic. There are chronic/healed left-sided rib fractures. There is gaseous distention of the stomach. IMPRESSION: 1. No acute cardiopulmonary abnormality. 2. Marked gaseous distention of the stomach is similar to prior studies. ACT 112: Negative or not required by law. Electronically signed by: Carlos Savage M.D. 09/15/2023 3:54 PM Abdomen/Pelvis CT 09/15/23 18:25 Exam(s): CT ABDOMEN + PELVIS With Contrast IV Amt: 95 ml optiray 320 EXAM: CT Abdomen and Pelvis With Intravenous Contrast CLINICAL HISTORY: Reason for exam: fall. TECHNIQUE: Axial computed tomography images of the abdomen and pelvis with intravenous contrast. CTDI is 15.23 mGy and DLP is 861.22 mGy-cm. Automated exposure control was utilized for the study. A dose lowering technique was utilized adhering to the principles of ALARA. CONTRAST: Patient received 95 ml optiray 320 of IV contrast COMPARISON: 08/15/23 FINDINGS: Lung bases are clear. Distal esophagus is distended with gas. Seen on prior CT, there is marked distention of the stomach and duodenum. There is narrowing of the duodenum as it passes between the aorta and SMA, but duodenum and jejunum distal to this level are also distended. There is increased colonic stool burden. There is no mucosal thickening. Appendix is not identified on today's exam, but there are no secondary signs of appendicitis. Liver, gallbladder, spleen, pancreas, adrenal glands, and kidneys are within normal limits. There is no aortic aneurysm or adenopathy. There is no evidence of vascular injury. There is no free air or significant free fluid. Patient has undergone prior ORIF of the right femur. Bones are osteopenic. There is a chronic mild L1 superior endplate compression fracture. There is no acute fracture or dislocation. IMPRESSION: 1. Again demonstrated is distention of the stomach and duodenum. There is narrowing of the duodenum as it passes between the aorta and SMA, but small bowel distal to this level is also distended. Findings may represent ileus, gastroenteritis, or gastroparesis. 2. No acute traumatic findings. 3. Constipation. Electronically signed by: Kyle Laguna M.D. 09/15/23 19:[address] 09/15/23 18:25 Exam(s): CT HEAD Without Contrast EXAM: CT Head Without Intravenous Contrast CLINICAL HISTORY: Reason for exam: fall. TECHNIQUE: Axial computed tomography images of the head/brain without intravenous contrast. CTDI is 34.3 mGy and DLP is 547.75 mGy-cm. Automated exposure control was utilized for the study. A dose lowering technique was utilized adhering to the principles of ALARA. COMPARISON: 08/15/23 FINDINGS: Brain: Patchy hypodensities in the periventricular and deep cerebral white matter suggesting chronic small vessel ischemic disease. Fernandez- white matter differentiation maintained. No hemorrhage, mass-effect, or parenchymal edema. Ventricles: Stable ventriculomegaly without evidence of progressive hydrocephalus. Bones/joints: Unremarkable. No acute fracture. Soft tissues: Unremarkable. Vasculature: Intracranial atherosclerosis. Sinuses: Unremarkable as visualized. No acute sinusitis. Mastoid air cells: Unremarkable as visualized. No mastoid effusion. IMPRESSION: No acute intracranial process. Electronically signed by: Kyle Laguna M.D. 09/15/23 19:22 PM Knee X-Ray 09/15/23 18:25 RIGHT KNEE 2 VIEWS CLINICAL HISTORY: Fall. Right knee injury. FINDINGS: AP and crosstable lateral views of the right knee are compared to study dated 11/10/2022. The skeletal structures are osteopenic. No fracture is seen. There is mild tricompartmental degenerative joint space narrowing, greatest in medial compartment. There is degenerative beaking of the tibial spine. There is no large joint effusion. Prepatellar soft tissue swelling is observed. IMPRESSION: Soft tissue swelling with no fracture identified. Electronically signed by: Carlos Savage M.D. 09/16/2023 7:19 AM Femur X-Ray 09/15/23 21:39 LEFT FEMUR 3 VIEWS CLINICAL HISTORY: Fall. Left leg pain. FINDINGS: AP, frog-leg, and lateral views of the left femur are obtained. No prior studies are available for comparison at the time of dictation. The skeletal structures are osteopenic. There is no radiographic evidence of left femoral fracture. The visualized left hemipelvis appears intact. The left hip and knee joints appear maintained noting arthritic change. The overlying soft tissues are within normal limits. The bladder is filled with excreted IV contrast. Distended loops of bowel are seen in the abdomen. IMPRESSION: 1. There is no radiographic evidence of left femoral fracture. 2. Distended bowel loops are noted in the lower abdomen. Correlate clinically. Electronically signed by: Carlos Savage M.D. 09/16/2023 7:37 AM KUB X-Ray 09/20/23 07:00 KUB HISTORY: Ileus COMPARISON: KUB 09/19/2023. FINDINGS: Large amount well-formed stool again seen throughout the colon. This is similar to the prior study. Postoperative changes within the proximal right femur. Mildly dilated gas-filled loops of large and small bowel are again noted suggestive of an ileus. No renal calculi. No ureteral calculi. Calcifications in the deep pelvis likely represent phleboliths. No pneumoperitoneum or pneumatosis. IMPRESSION: 1. Large amount well-formed stool again seen throughout the colon, unchanged. 2. Gaseous distention of the large and small bowel which favors an ileus. ACT 112: Negative or not required by law. Electronically signed by: Kendall Sanderson M.D. 09/20/2023 7:41 AM PG Care Time/CCT Total # of Minutes Spent Total Time Spent with Patient: Total time spent is greater than 50% in coordination of care (as documented) at patient's floor/unit and/or counseling patient: Coding Level of Care Code 14943 INT INP/OBS CARE 3/75MIN Diagnoses Colon distention K63.89 Constipation in female K59.00
[2023-09-20] MEDS: POLYETHYLENE (MIRALAX) 17 GM PACK PO SCH (11:39)
--- NOTE | 2023-09-20 16:58 | Hospitalist Progress Note ---
Date of Service September 20, 2023 Assessment & Plan (1) Weakness: Plan: Generalized weakness Recurrent falls UTI --CT head: No acute intracranial process. --Right knee, femur x-ray showing no signs of fractures --Blood culture: Negative to date -- Urine culture grew E. coli Continue Rocephin>> transition to cefdinir PT OT Fall precautions Encouraged to ambulate Plan to discharge tomorrow if remains stable Hyperglycemia H/O DM II HbA1c 5.3 hold p.o. medications Blood sugars have been running high at personal care facility Continue insulin while hospitalized Monitor blood glucose levels Consulted pharmacy for glycemic management Discussed with rn diabetes educator--A1c likely unreliable, given variable blood glucose levels at senior living, plan to continue outpatient diabetic regimen on discharge Chronic Constipation ? Secondary to Clozapine Abdomen soft, nontender, patient denies any abdominal pain Continue bowel regimen Encouraged to ambulate Discussed with psychiatry regarding likely clozapine causing constipation Psychiatry recommends to follow-up as outpatient Enema as needed Encourage ambulation Appreciate GI input Hyperlipidemia on statin Seizure disorder Paranoid schizophrenia with auditory hallucinations Intellectual impairment --Dilantin level 7.4 Continue home medications DVT Px: Lovenox SQ Code Status Full code Admission and Anticipated Discharge Date Admission Date: September 16, 2023 Subjective Patient is seen and examined at bedside Poor historian secondary to cognitive dysfunction Denies any abdominal pain today Tolerating liquid diet GI following Review of Systems Review of Systems: All systems reviewed & are unremarkable except as noted in Subjective Physical Exam Physical Exam: Physical Exam: Vitals signs as noted above General Appearance:Thin, chronic ill, no apparent distress Head: normocephalic, Atraumatic Eyes: normal inspection, EOMI Neck: supple, Trachea midline Respiratory/Chest: Decreased breath sounds, CTA, No accessory muscle use Cardiovascular: S1, S2, No murmur Abdomen/GI:Soft, Non tender, distended, Bowel sounds present Extremities/Musculoskeletal:normal inspection, Trace edema Neurologic/Psych:AAOX2, grossly no focal neurological deficits, + Intellectual disability Skin: normal color, warm Results & Data Results & Data Vital Signs (Past 12 Hours) Vital Signs Temp Pulse Resp BP Pulse Ox O2 Del Method 09/20/23 15:15 36.8 C 85 18 108/73 96 Room Air 09/20/23 07:13 36.7 C 82 18 108/70 98 Room Air Laboratory Results [facility] 09/20/23 06:05 Sodium 139 Potassium 3.9 Chloride 105 Carbon Dioxide 27 BUN 9 Creatinine 0.42 L Glucose 142 H Calcium 8.5 L
[2023-09-21 08:39] LABS: Calcium 8.6 mg/dl (8.6-10.3); Est GFR (African American) 121.1 ml/min; Est GFR (Non-African American) 104.5 ml/min; Magnesium 1.8 mg/dl (1.7-2.4)
--- NOTE | 2023-09-21 10:46 | Gastroenterology Progress Note ---
Date of Service September 21, 2023 Assessment & Plan (1) Colon distention: (2) Constipation in female: Plan 63 y.o. female admitted with weakness and falls with constipation and ileus, likely in the setting of diabetes, medications, limited mobility and lack of awareness of body cues for defecation. 1. Continue MiraLAX 17 g po BID x 1 week, then once daily in 8 ounces of liquid thereafter for maintenance. 2. Push fluids. 3. Supportive care per primary team. Admission and Anticipated Discharge Date Admission Date: September 16, 2023 Subjective Patient denies any abdominal pain. Started on BID MiraLAX. Per chart, discussion to be made about psychiatric medications which are likely contributing to constipation. Review of Systems Review of Systems: Unobtainable due to mental health condition Physical Exam Constitutional: no acute distress Respiratory: normal respiratory effort, lungs clear to auscultation Cardiovascular: Rate/Rhythm: regular rate and regular rhythm Gastrointestinal (Abdomen): Inspection/Auscultation: + abdomen distended and normal bowel sounds Percussion/Palpation: abdomen soft; no guarding and abdomen not rigid Psychiatric: Orientation: alert Results & Data Results & Data Vital Signs (Past 12 Hours) Vital Signs Temp Pulse Resp BP Pulse Ox O2 Del Method 09/21/23 07:14 36.5 C 85 18 130/79 98 Room Air PG Care Time/CCT Total # of Minutes Spent Total Time Spent with Patient: Total time spent is greater than 50% in coordination of care (as documented) at patient's floor/unit and/or counseling patient: Coding Level of Care Code 68624 SUB INP/OBS CARE 3/50MIN Diagnoses Colon distention K63.89 Constipation in female K59.00
--- NOTE | 2023-09-21 12:33 | Pharmacy Report ---
Pharmacy Glycemic Short Note 2 - Date of Service September 21, 2023 - Glycemic Short BSG Results (Last 24 hours): 09/20/23 09/20/23 09/21/23 16:45 20:42 07:32 Glucose 171 H POC Glucose 131 H 135 H 09/21/23 09/21/23 07:38 11:50 Glucose POC Glucose 161 H 131 H OUTPATIENT ANTIDIABETIC REGIMEN: * Glimepiride 2mg PO BID * Glimepiride 1mg PO PRN BSG >300mg/dL * Trajenta 5mg PO daily HbA1c 5.3% 09/15/23 ASSESSMENT: 09/21/23: * BSGs have been stable on current regimen. * Slight increase in Lantus beginning tomorrow morning for fasting BSG(s) above goal. * No further changes at this time. 09/17/23: * Blood sugars reasonably controlled thus far, ranging 122-178 mg/dL * Received 11 units of insulin yesterday (5 units of basal and 6 units of prandial/correctional bolus) * Will continue with current basal and slightly tighten Novolog parameters 09/16/23: * Brittany is a 63 YOF admitted for weakness/possible UTI/ hyperglycemia. Pharmacy has been consulted for glycemic management while inpatient. * Hyperglycemic on admission, trended down with a few units of correctional. Recevied 5 units of basal with lunch, will hold for now and reassess in AM. * Novolog initiated at a weight based stress of approximately 1.5 PLAN FOR INPATIENT GLYCEMIC CONTROL: * Hold outpatient oral diabetes medications * Basal insulin * Lantus 7 units SC daily --> increase to 8 units SC daily 09/22/23 * Bolus insulin * NovoLog per scale ACHS or Q6hrs while NPO * Goal Range: Low 120 mg/dL - High 150 mg/dL * Correction Factor: 40 mg/dL/unit * Nutritional / Prandial insulin per carb ratio of 1 unit per 12 grams CHO consumed
[2023-09-21] MEDS: LACTULOSE SYRUP 20 GM/30 ML UDC PO PRN (13:08)
--- NOTE | 2023-09-21 13:35 | Hospitalist Progress Note ---
Date of Service September 21, 2023 Assessment & Plan (1) Weakness: Plan: Generalized weakness Recurrent falls UTI --CT head: No acute intracranial process. --Right knee, femur x-ray showing no signs of fractures --Blood culture: Negative to date -- Urine culture grew E. coli Continue Rocephin>> transition to cefdinir PT OT Fall precautions Encouraged to ambulate Plan to discharge to longterm today Hyperglycemia H/O DM II HbA1c 5.3 hold p.o. medications Blood sugars have been running high at personal care facility Continue insulin while hospitalized Monitor blood glucose levels Consulted pharmacy for glycemic management Discussed with certified adapted physical educator--Given A1c likely unreliable, given variable blood glucose levels at longterm, plan to continue outpatient diabetic regimen on discharge Chronic Constipation ? Secondary to Clozapine Abdomen soft, nontender, patient denies any abdominal pain Continue bowel regimen Encouraged to ambulate Discussed with psychiatry regarding likely clozapine causing constipation Psychiatry recommends to follow-up as outpatient Enema as needed Encourage ambulation Appreciate GI input Discussed with gastroenterology on 09/21/2023. Okay to discharge from GI perspective Hyperlipidemia on statin Seizure disorder Paranoid schizophrenia with auditory hallucinations Intellectual impairment --Dilantin level 7.4 Continue home medications DVT Px: Lovenox SQ Code Status Full code Disposition halfway Admission and Anticipated Discharge Date Admission Date: September 16, 2023 Subjective Patient is seen and examined at bedside Poor historian secondary to cognitive dysfunction No distress on exam Unable to obtain much history. Denies any abdominal pain Discussed with GI today Plan to discharge to longterm today Review of Systems Review of Systems: All systems reviewed & are unremarkable except as noted in Subjective Physical Exam Physical Exam: Physical Exam: Vitals signs as noted above General Appearance:Thin, chronic ill, no apparent distress Head: normocephalic, Atraumatic Eyes: normal inspection, EOMI Neck: supple, Trachea midline Respiratory/Chest: Decreased breath sounds, CTA, No accessory muscle use Cardiovascular: S1, S2, No murmur Abdomen/GI:Soft, Non tender, distended, Bowel sounds present Extremities/Musculoskeletal:normal inspection, Trace edema Neurologic/Psych:AAOX2, grossly no focal neurological deficits, + Intellectual disability Skin: normal color, warm Results & Data Results & Data Vital Signs (Past 12 Hours) Vital Signs Temp Pulse Resp BP Pulse Ox O2 Del Method 09/21/23 07:14 36.5 C 85 18 130/79 98 Room Air Laboratory Results BMP 09/21/23 07:32 Sodium 140 Potassium 4.0 Chloride 105 Carbon Dioxide 28 BUN 10 Creatinine 0.50 L Glucose 171 H Calcium 8.6
--- NOTE | 2023-09-21 14:04 | Discharge Summary ---
Date of Service September 21, 2023 Admission HPI Per Admitting Provider History obtained from patient, caregiver, and records. Limited history from patient secondary to hearing impairment/confusion. 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 Bowel issues resolved with nonoperative management. Patient with recurrent witnessed falls the last few days. No syncopal event. No witnessed seizures. Increased weakness as per [facility] staff. Possible abdominal pain and leg pain as per staff. Constipation symptoms of 1 day duration as per staff. Patient denies chest pain, SOB symptoms. No recent changes in AED regimen. Patient brought to the ER for evaluation. Medical History as above Surgical History : None Family History : DM Personal/Social history : Non-smoker, no EtOH intake, disabled Admission Exam Per Admitting Provider GENERAL: Disoriented, hard of hearing, no respiratory distress SKIN: Normal color, warm HEENT: [place] palpebral conjunctivae, no ptosis, dry buccal mucosa NECK : Supple, no tenderness CHEST : CTA, no tenderness HEART : RRR, no obvious murmurs ABDOMEN: Some distention, nontender EXTREMITIES : No LE swelling/tenderness, no other conspicuous deformities noted NEUROLOGIC : Disoriented, no facial asymmetry, hard of hearing, gait and stance not assessed Principal Diagnosis Urinary tract infection Generalized weakness Recurrent falls Chronic Constipation Discharge Data Allergies Allergy/AdvReac Type Severity Reaction Status Date / Time divalproex sodium Allergy Unknown Unknown Verified 09/15/23 22:03 [From Depakote] salicylates Allergy Unknown Unknown Verified 09/15/23 22:03 valproic acid Allergy Unknown Unknown Verified 09/15/23 22:03 aspirin AdvReac Severe STOMACH Verified 09/15/23 22:03 ULCER BLEEDING Consultations 09/15/23 20:26 ED Decision to Admit Stat 09/20/23 07:58 Consult Gastroenterology Routine Procedures Performed Laboratory Results WBC 6.24 K/ul (4.8-10.8) 09/18/23 07:07 RBC 3.99 M/uL (4.20-5.40) L 09/18/23 07:07 Hgb 12.7 g/dl (12.0-16.0) 09/18/23 07:07 Hct 37.8 % (37.0-47.0) 09/18/23 07:07 MCV 94.7 fL (80.0-100.0) 09/18/23 07:07 MCH 31.8 pg (25.0-34.0) 09/18/23 07:07 MCHC 33.6 g/dL (32.0-36.0) 09/18/23 07:07 RDW Std Deviation 52.7 fL (36.4-46.3) H 09/18/23 07:07 RDW Coeff of Liliana 14.8 % (11.5-14.5) H 09/18/23 07:07 Plt Count 127 K/uL (130-400) L 09/18/23 07:07 MPV 11.6 fL (9.4-12.4) 09/18/23 07:07 Immature Gran % (Auto) 0.3 % 09/16/23 01:37 Neut % (Auto) 79.0 % 09/16/23 01:37 Lymph % (Auto) 9.5 % 09/16/23 01:37 Dewitt % (Auto) 11.0 % 09/16/23 01:37 Eos % (Auto) 0.0 % 09/16/23 01:37 Baso % (Auto) 0.2 % 09/16/23 01:37 Neut # (Auto) 8.26 K/uL (1.40-6.50) H 09/16/23 01:37 Lymph # (Auto) 0.99 K/uL (1.20-3.40) L 09/16/23 01:37 Dewitt # (Auto) 1.15 K/uL (0.11-0.59) H 09/16/23 01:37 Eos # (Auto) 0.00 K/uL (0.00-0.50) 09/16/23 01:37 Baso # (Auto) 0.02 K/uL (0.00-0.20) 09/16/23 01:37 Immature Gran # (Auto) 0.03 K/uL (0.01-0.20) 09/16/23 01:37 PT 10.5 Seconds (9.0-12.0) 09/15/23 16:03 INR 1.0 (0.9-1.1) 09/15/23 16:03 APTT 23 Seconds (21-31) 09/15/23 16:03 PTT Ratio 0.9 09/15/23 16:03 Sodium 140 mmol/L (136-145) 09/21/23 07:32 Potassium 4.0 mmol/L (3.5-5.1) 09/21/23 07:32 Chloride 105 mmol/L (98-107) 09/21/23 07:32 Carbon Dioxide 28 mmol/L (21-32) 09/21/23 07:32 Anion Gap 7 (3-11) 09/21/23 07:32 BUN 10 mg/dl (6-23) 09/21/23 07:32 Creatinine 0.50 mg/dl (0.6-1.2) L 09/21/23 07:32 Est Cr Clr Drug Dosing 105.0 ml/min 09/21/23 07:32 Est GFR ( Amer) 121.1 ml/min 09/21/23 07:32 Est GFR (Non-Af Amer) 104.5 ml/min 09/21/23 07:32 BUN/Creatinine Ratio 20.0 (10-20) 09/21/23 07:32 Glucose 171 mg/dl (70-99(Fasting)) H 09/21/23 07:32 POC Glucose 131 mg/dl (70-99) H 09/21/23 11:50 Estimat Average Glucose 105 mg/dl 09/15/23 16:03 Hemoglobin A1c 5.3 % (4.5-5.6) 09/15/23 16:03 Lactate 1.5 mmol/L (0.4-2.0) 09/16/23 01:37 Calcium 8.6 mg/dl (8.6-10.3) 09/21/23 07:32 Magnesium 1.8 mg/dl (1.7-2.4) 09/21/23 07:32 Total Bilirubin 0.3 mg/dl (0.2-1.0) 09/15/23 16:03 AST 24 U/L (13-39) 09/15/23 16:03 ALT 46 U/L (7-52) 09/15/23 16:03 Alkaline Phosphatase 135 U/L (34-104) H 09/15/23 16:03 Total Creatine Kinase 54 U/L (26-192) 09/15/23 20:36 Troponin I High Sens < 2.3 pg/ml (0-14) 09/15/23 16:03 Total Protein 7.5 gm/dl (6.0-8.3) 09/15/23 16:03 Albumin 4.5 gm/dl (3.4-5.0) 09/15/23 16:03 Globulin 3.0 gm/dl (2.5-4.0) 09/15/23 16:03 Albumin/Globulin Ratio 1.5 (0.9-2) 09/15/23 16:03 Lipase 70 U/L (11-82) 09/15/23 20:36 Urine Color Yellow 09/16/23 02:40 Urine Appearance Clear (Clear) 09/16/23 02:40 Urine pH 6.0 (4.5-7.5) 09/16/23 02:40 Ur Specific [place] > 1.045 (1.000-1.030) H 09/16/23 02:40 Urine Protein Trace (Negative) H 09/16/23 02:40 Urine Glucose (UA) 2+ (Negative) H 09/16/23 02:40 Urine Ketones Negative (Negative) 09/16/23 02:40 Urine Blood Negative (Negative) 09/16/23 02:40 Urine Nitrite Negative (Negative) 09/16/23 02:40 Urine Bilirubin Negative (Negative) 09/16/23 02:40 Urine Urobilinogen Negative (Negative) 09/16/23 02:40 Ur Leukocyte Esterase 1+ (Negative) H 09/16/23 02:40 Urine WBC (Auto) >50 /hpf (0-5) H 09/16/23 02:40 Urine RBC (Auto) 0-2 /hpf (0-2) 09/16/23 02:40 U Hyaline Cast (Auto) 0-2 /lpf (0-2) 09/16/23 02:40 U Epithel Cells (Auto) 0-2 /hpf (0-2) 09/16/23 02:40 Urine Bacteria (Auto) None Seen (None Seen) 09/16/23 02:40 Phenytoin 7.4 L 09/15/23 20:32 Staphylococcus sp PCR DETECTED (NotDetected) A 09/16/23 20:34 mecA/C-Methicil Resis Gene Not Detected (NotDetected) 09/16/23 20:34 Staph epidermidis (PCR) DETECTED (NotDetected) A 09/16/23 20:34 Bld Cult ID Panel PCR See PCR Comment (NotDetected) 09/16/23 20:34 Impressions Chest X-Ray 09/15/23 15:21 SINGLE VIEW CHEST CLINICAL HISTORY: Near syncope FINDINGS: 2 AP upright chest radiographs are compared to study dated 08/15/2023. The cardiomediastinal silhouette is unremarkable. There is chronic elevation of the left hemidiaphragm. Atelectasis is noted at both lung bases. No airspace consolidation or large pleural effusion is identified. The lungs and pleural spaces are clear. No pneumothorax is seen. The skeletal structures are osteopenic. There are chronic/healed left-sided rib fractures. There is gaseous distention of the stomach. IMPRESSION: 1. No acute cardiopulmonary abnormality. 2. Marked gaseous distention of the stomach is similar to prior studies. ACT 112: Negative or not required by law. Electronically signed by: Carlos Savage M.D. 09/15/2023 3:54 PM Abdomen/Pelvis CT 09/15/23 18:25 Exam(s): CT ABDOMEN + PELVIS With Contrast IV Amt: 95 ml optiray 320 EXAM: CT Abdomen and Pelvis With Intravenous Contrast CLINICAL HISTORY: Reason for exam: fall. TECHNIQUE: Axial computed tomography images of the abdomen and pelvis with intravenous contrast. CTDI is 15.23 mGy and DLP is 861.22 mGy-cm. Automated exposure control was utilized for the study. A dose lowering technique was utilized adhering to the principles of ALARA. CONTRAST: Patient received 95 ml optiray 320 of IV contrast COMPARISON: 08/15/23 FINDINGS: Lung bases are clear. Distal esophagus is distended with gas. Seen on prior CT, there is marked distention of the stomach and duodenum. There is narrowing of the duodenum as it passes between the aorta and SMA, but duodenum and jejunum distal to this level are also distended. There is increased colonic stool burden. There is no mucosal thickening. Appendix is not identified on today's exam, but there are no secondary signs of appendicitis. Liver, gallbladder, spleen, pancreas, adrenal glands, and kidneys are within normal limits. There is no aortic aneurysm or adenopathy. There is no evidence of vascular injury. There is no free air or significant free fluid. Patient has undergone prior ORIF of the right femur. Bones are osteopenic. There is a chronic mild L1 superior endplate compression fracture. There is no acute fracture or dislocation. IMPRESSION: 1. Again demonstrated is distention of the stomach and duodenum. There is narrowing of the duodenum as it passes between the aorta and SMA, but small bowel distal to this level is also distended. Findings may represent ileus, gastroenteritis, or gastroparesis. 2. No acute traumatic findings. 3. Constipation. Electronically signed by: Kyle Laguna M.D. 09/15/23 19:[address] 09/15/23 18:25 Exam(s): CT HEAD Without Contrast EXAM: CT Head Without Intravenous Contrast CLINICAL HISTORY: Reason for exam: fall. TECHNIQUE: Axial computed tomography images of the head/brain without intravenous contrast. CTDI is 34.3 mGy and DLP is 547.75 mGy-cm. Automated exposure control was utilized for the study. A dose lowering technique was utilized adhering to the principles of ALARA. COMPARISON: 08/15/23 FINDINGS: Brain: Patchy hypodensities in the periventricular and deep cerebral white matter suggesting chronic small vessel ischemic disease. Fernandez- white matter differentiation maintained. No hemorrhage, mass-effect, or parenchymal edema. Ventricles: Stable ventriculomegaly without evidence of progressive hydrocephalus. Bones/joints: Unremarkable. No acute fracture. Soft tissues: Unremarkable. Vasculature: Intracranial atherosclerosis. Sinuses: Unremarkable as visualized. No acute sinusitis. Mastoid air cells: Unremarkable as visualized. No mastoid effusion. IMPRESSION: No acute intracranial process. Electronically signed by: Kyle Laguna M.D. 09/15/23 19:22 PM Knee X-Ray 09/15/23 18:25 RIGHT KNEE 2 VIEWS CLINICAL HISTORY: Fall. Right knee injury. FINDINGS: AP and crosstable lateral views of the right knee are compared to study dated 11/10/2022. The skeletal structures are osteopenic. No fracture is seen. There is mild tricompartmental degenerative joint space narrowing, greatest in medial compartment. There is degenerative beaking of the tibial spine. There is no large joint effusion. Prepatellar soft tissue swelling is observed. IMPRESSION: Soft tissue swelling with no fracture identified. Electronically signed by: Carlos Savage M.D. 09/16/2023 7:19 AM Femur X-Ray 09/15/23 21:39 LEFT FEMUR 3 VIEWS CLINICAL HISTORY: Fall. Left leg pain. FINDINGS: AP, frog-leg, and lateral views of the left femur are obtained. No prior studies are available for comparison at the time of dictation. The skeletal structures are osteopenic. There is no radiographic evidence of left femoral fracture. The visualized left hemipelvis appears intact. The left hip and knee joints appear maintained noting arthritic change. The overlying soft tissues are within normal limits. The bladder is filled with excreted IV contrast. Distended loops of bowel are seen in the abdomen. IMPRESSION: 1. There is no radiographic evidence of left femoral fracture. 2. Distended bowel loops are noted in the lower abdomen. Correlate clinically. Electronically signed by: Carlos Savage M.D. 09/16/2023 7:37 AM KUB X-Ray 09/20/23 07:00 KUB HISTORY: Ileus COMPARISON: KUB 09/19/2023. FINDINGS: Large amount well-formed stool again seen throughout the colon. This is similar to the prior study. Postoperative changes within the proximal right femur. Mildly dilated gas-filled loops of large and small bowel are again noted suggestive of an ileus. No renal calculi. No ureteral calculi. Calcifications in the deep pelvis likely represent phleboliths. No pneumoperitoneum or pneumatosis. IMPRESSION: 1. Large amount well-formed stool again seen throughout the colon, unchanged. 2. Gaseous distention of the large and small bowel which favors an ileus. ACT 112: Negative or not required by law. Electronically signed by: Kendall Sanderson M.D. 09/20/2023 7:41 AM Ordered Studies 09/15/23 18:25 CT abd pelvis IV con only Stat CT head/brain wo con Stat Hospital Course (1) Weakness: Generalized weakness Recurrent falls UTI --CT head: No acute intracranial process. --Right knee, femur x-ray showing no signs of fractures --Blood culture: Negative to date -- Urine culture grew E. coli Continue Rocephin>> transition to cefdinir PT OT Fall precautions Encouraged to ambulate Plan to discharge to alf today Hyperglycemia H/O DM II HbA1c 5.3 hold p.o. medications Blood sugars have been running high at personal care facility Continue insulin while hospitalized Monitor blood glucose levels Consulted pharmacy for glycemic management Discussed with wellness educator--Given A1c likely unreliable, given variable blood glucose levels at alf, plan to continue outpatient diabetic regimen on discharge Chronic Constipation ? Secondary to Clozapine Abdomen soft, nontender, patient denies any abdominal pain Continue bowel regimen Encouraged to ambulate Discussed with psychiatry regarding likely clozapine causing constipation Psychiatry recommends to follow-up as outpatient Enema as needed Encourage ambulation Appreciate GI input Discussed with gastroenterology on 09/21/2023. Okay to discharge from GI perspective Hyperlipidemia on statin Seizure disorder Paranoid schizophrenia with auditory hallucinations Intellectual impairment --Dilantin level 7.4 Continue home medications DVT Px: Lovenox SQ Code Status Full code Disposition halfway Total Time Total Time Spent Total Time Spent (In Minutes): 54 minutes Discharge Plan Discharge Items Patient Disposition: Home - Self-Care Reason For Visit: WEAKNESS, COMP UTI Discharge Diagnosis: Urinary tract infection Generalized weakness Recurrent falls Chronic Constipation Activity: Resume your previous activity Exercise/Sports: Gradually increase as tolerated Non-emergency contact: Primary Care Provider Call non-emergency contact if: you have any medication questions, your symptoms worsen, your pain is concerning for you and you have a fever Follow-up/Referrals: Delmy Jacobsen PA-C [Primary Care Provider] - (Date & Time 09/23/2023 9:40 AM Provider Delmy Jacobsen PA-C Department [facility] Please note the time change from previously schedule appt ) Diet: Carb Consistent or DM2 Diet Texture: Easy to Chew Addtl Attending Provider Instructions: Follow-up with your primary care physician Delmy Jacobsen PA-C on 09/23/2023 9:40 AM Follow-up with your psychiatrist to discuss about Clozapine likely contributing to chronic constipation. --Complete the antibiotic course cefdinir as prescribed. Seek immediate medical attention if your symptoms reoccur or worsen Please take all medications as instructed on discharge list below. Please call if you have any questions or problems. You can reach a [facility] hospitalist on duty at [facility] 24 hours a day by calling [phone] Pending Studies at Discharge: No Stand-Alone Forms: My [facility], Smoking Cessation Medications and DC Order Prescriptions: New cefdinir 300 mg Capsule 300 mg PO BID Qty: 2 0RF sennosides-docusate sodium [Senokot-S] 8.6-50 mg Tablet 1 tab PO BID Qty: 60 0RF Rx Instructions: hold for diarrhea Continued fluticasone propionate 50 mcg/actuation spray,suspension 2 sprays INTNAS QPM levetiracetam [Keppra] 250 mg tablet 250 mg PO BID 90 Days Qty: 180 1RF phenytoin sodium extended [Dilantin Extended] 100 mg capsule 200 mg PO BID 90 Days Qty: 360 3RF atorvastatin 40 mg tablet 40 mg PO HS glimepiride 2 mg tablet 2 mg PO BID Women's One Daily 18 mg iron-400 mcg-500 mg Ca Tablet 1 tab PO QAM vitamin B complex Tablet 1 tab PO QAM polyethylene glycol 3350 [Miralax] 17 gram powder in packet 17 g PO BID Rx Instructions: HOLD IF HAS DIARRHEA ammonium lactate 12 % cream 1 applic TOPICAL QAM Rx Instructions: Apply to feet. clozapine 200 mg tablet 600 mg PO DAILY@2000 glimepiride 1 mg Tablet 1 mg PO DIRECTED PRN (Reason: BSG >300.) triamcinolone acetonide 0.1 % cream 1 applic TOPICAL BID PRN (Reason: Rash) Rx Instructions: apply to right buttocks prn rash valacyclovir 500 mg Tablet 500 mg PO DAILY calcium citrate-vitamin D3 [Calcium Citrate + D] 315 mg-5 mcg (200 unit) Ta blet 2 tab PO QAM Qty: 0 Rx Instructions: two tablets daily albuterol sulfate [Ventolin HFA] 90 mcg/actuation Hfa Aerosol Inhaler 2 puff inhalation QIDR PRN (Reason: shortness of breath or wheezing) Qty: 6.7 0RF dextromethorphan-guaifenesin [Robitussin Cough-Chest Samm DM] 5-100 mg/5 mL Liquid 10 ml PO Q6H PRN (Reason: cough) Qty: 118 0RF famotidine 40 mg tablet 40 mg PO HS Glucerna Liquid 1 ea PO BID Rx Instructions: Offer bid diphenhydramine HCl [Benadryl Allergy] 25 mg Tablet 25 mg PO .Q4-6 PRN (Reason: .allergy) Mucinex DM 30-600 mg Tablet Extended Release 12 Hr 1 - 2 tab PO Q12H PRN (Reason: Nasal Congestion) acetaminophen [Tylenol Extra Strength] 500 mg tablet 1,000 mg PO Q6 PRN (Reason: Pain) Rx Instructions: Do not take >6 caplets in 24 hr. Tradjenta 5 mg tablet 5 mg PO DAILY bisacodyl 10 mg Suppository 10 mg WA DAILY PRN (Reason: constipation) Qty: 30 0RF Discontinued docusate sodium [Colace] 100 mg Capsule 100 mg PO BID Discharge Orders: Discharge Order (Routine); Ordered 09/21/23 Ordered By: Cm Moreland Admission Data Admit Date/Time: 09/16/23 06:10 Attending Provider: Cm Moreland Admit Provider: Gurmeet Hollins Primary Care Provider: Delmy Jacobsen Other Providers: Gurmeet Hollins; Molly Laureano; Bobyb Varner; Luz Marina Hernandez; Mirian Roberts; Kim Castellanos; Erika Perez; Adrianne Velásquez; Sudhakar Barkley; Markell Marquez; Corine Person; Vicente Watkins; Drake Daly; Muriel Jules; Lilo Smith; Paige Guerrero; Altagracia Raza; Juan Kraus; Nicola Westbrook; Alonso Palafox; Ivy Kamara; Flavio Patel Jr
[2023-09-22] MEDS ORDERED: LANTUS PER UNIT CHARGE SQ SCH (09:00)
== END 2023-09-21 15:43 | disposition home health service (06) | DRG 690 ==
LOC: ED 14:56 → EDINP 14:56 → 2N 09-16 00:42 → 3W 09-19 17:11

== ENCOUNTER 2023-09-22 09:47 | Observation (INO) ==
--- NOTE | 2023-09-22 10:20 | Emergency Department Note ---
Impression & Plan Lethargy, Tibial plateau fracture, left, Weakness ED Provider Note NAME: ORLANDO LESLIE AGE: 63 SEX: F : 1960 ARRIVES VIA: Ambulance INFORMANT: Patient, ED PROVIDER(S): Jc Garrido MD CHIEF COMPLAINT: Change in mentation MEDICAL DECISION MAKING: Patient presents due to concern for altered mental status and change in mentation. IV was established and blood work was obtained. Patient has a normal white count hemoglobin and platelet count kidney function is unremarkable. Lactate normal patient's ammonia was not elevated. Procalcitonin not elevated urinalysis negative. Patient CT does not show any acute changes. Chest x-ray without obvious evidence of pneumonia. I did speak with the patient's father who was concerned about possible stroke so brain MRI was ordered. I did discuss the possibility of encompass with case management. Patient was noted to have an effusion to the left knee this was imaged during the most recent time she was inpatient but was negative. This repeat imaging study did show concern for tibial plateau fracture. Patient was placed in a knee immobilizer Dr. Beaulieu with orthopedics was consulted and I did speak with the inpatient medicine service and the patient was admitted by Manasa Ferrara PA-C and Dr. Metz with [facility]. Definitive Fracture Care note: Dx: Tibial plateau fracture Plan: Immobilization, knee immobilizer, rest, ice, elevation, analgesia, orthopedic follow up. Discussion w/ other healthcare providers: Manasa Ferrara PA-C and Dr. Metz inpatient medicine service Dr. Beaulieu with orthopedics Skills worker Prior /Outside records reviewed: I reviewed a prior urine culture which showed pansensitive E. coli from September 15. I reviewed a discharge summary from Dr. Moreland. Patient had presented and was admitted for UTI generalized weakness recurrent falls and chronic constipation. Differential diagnosis: Infection, dehydration, metabolic abnormality, hypo/hyperglycemia, electrolyte imbalance, anemia, UTI, pneumonia, thyroid dysfunction among others were considered. Diagnostics, as interpreted by me: ECG: Sinus tachycardia, rate of 101, normal intervals, normal axis no ST elevations. Cardiac monitoring: An order was placed for continuous cardiac monitoring. The monitor shows a rate of 95 with sinus rhythm. Patient was placed on pulse oximetry Medical decision rules: None Imaging studies: I informally interpreted the patient's Chest x-ray does not show evidence of obvious pneumonia or pneumothorax. Gas noted within the stomach. with formal report to follow. Informally interpreted the patient's knee x-ray which does show tibial plateau fracture HPI: Patient presents due to concern for increasing weakness and fatigue. Caregiver provides some of the history at bedside patient's most recent discharge summary was reviewed. The patient did have a recent admission for UTI weakness and falls as well as chronic constipation. Patient's caregiver reports that when she was discharged yesterday she returned home and still required a lot of assist help prior to the patient's most recent admission was ambulatory with a walker without any additional assistance. She is requiring transfer help from the bed to toilet. Patient has been less responsive to questioning and not as alert. No reported falls or trauma. The patient did complete her dose of antibiotics for her UTI. No reported fevers vomiting or diarrhea. Patient last bowel movement on Wednesday caregiver states they gave her suppository yesterday but no further bowel movements. Patient reportedly does not express any specific complaints. BSG prior to arrival per nursing was in the 200s. PAST MEDICAL HISTORY: See Below PAST SURGICAL HISTORY: See Below SOCIAL HISTORY: See Below HOME MEDICATIONS: See Below ALLERGIES: See Below VITALS: See Below PHYSICAL EXAMINATION: GENERAL: Resting comfortably. EYE EXAM: Normal conjunctiva. PERRL, no anisocoria and EOM's grossly intact w/o pain. OROPHARYNX: Moist mucus membranes, grossly normal dentition. NECK: Trachea midline, no stridor. LUNGS: Clear to auscultation. Normal chest wall mechanics. HEART: NSR, no MRG. ABDOMEN: Abdomen soft, non-tender, no masses, no rebound or guarding. BACK: No CVA TTP. SKIN: No rashes and no bruising. UPPER EXTREMITIES: Upper extremities are grossly normal. LOWER EXTREMITIES: Grossly normal, no edema. NEURO EXAM: Opens eyes to voice, follows basic commands, moves all 4 extremities. Past Med/Surg History Medical History Seizure disorder GERD (gastroesophageal reflux disease) Acute metabolic encephalopathy Head injury Fall Acute alteration in mental status Elevated lactic acid level Weakness AMS (altered mental status) DMII (diabetes mellitus, type 2) HSV (herpes simplex virus) anogenital infection Complex partial seizure Depression with anxiety Heart murmur Onychomycosis Hypertension Schizophrenia Surgical History History of colonoscopy Family History Mother Diabetes Other Seizures Social History Smoking Status: Never smoker Hx Alcohol Use: No Hx Substance Use: No Preferred Language: Slovak Communication Ability: Effective Communication Ability Comment: Intellectual Disability Visual Impairment: No Limitations Hearing Ability: Normal 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 Specialist Required: No Beliefs That Will Affect Care: None marital status: Single Current Living Situation: Other Current Living Situation Comment: custodial current occupational status: disabled Other Information That Helps Us Care for You: No Feels Safe at Home: Yes Safety Concerns: Feels Safe At This Time Assistive Devices: Walker and Wheelchair Allergies Allergies Allergy/AdvReac Type Severity Reaction Status Date / Time divalproex sodium Allergy Unknown Unknown Verified 09/15/23 22:03 [From Depakote] salicylates Allergy Unknown Unknown Verified 09/15/23 22:03 valproic acid Allergy Unknown Unknown Verified 09/15/23 22:03 aspirin AdvReac Severe STOMACH Verified 09/15/23 22:03 ULCER BLEEDING Home Meds Home Medications Medication Instructions Recorded Confirmed atorvastatin 40 mg tablet 40 mg PO HS 07/17/18 09/22/23 glimepiride 2 mg tablet 2 mg PO BID 07/17/18 09/22/23 multivit-iron 18 mg-folic acid 400 1 tab PO QAM 07/17/18 09/22/23 mcg-calcium 500 mg-minerals tablet (Women's One Daily) vitamin B complex 1 tab PO QAM 08/25/18 09/22/23 fluticasone propionate 50 2 sprays intranasal QPM 02/15/19 09/22/23 mcg/actuation nasal spray,suspension ammonium lactate 12 % topical cream 1 applic topical QAM 05/21/19 09/22/23 triamcinolone acetonide 0.1 % 1 applic topical BID PRN Rash 07/10/21 09/22/23 topical cream clozapine 200 mg tablet 600 mg PO DAILY@199910/31/21 09/22/23 valacyclovir 500 mg tablet 500 mg PO DAILY 02/18/22 09/22/23 glimepiride 1 mg tablet 1 mg PO DIRECTED PRN BSG >300. 10/14/22 09/22/23 polyethylene glycol 3350 17 gram 17 g PO BID 10/19/22 09/22/23 oral powder packet (Miralax) calcium citrate 315 mg-vitamin D3 2 tab PO QAM ##0 02/11/23 09/22/23 5 mcg (200 unit) tablet (Calcium Citrate + D) acetaminophen 500 mg tablet 1,000 mg PO Q6 PRN Pain 06/07/23 09/22/23 (Tylenol Extra Strength) dextromethorphan-guaifenesin 30 1 - 2 tab PO Q12H PRN Nasal 06/07/23 09/22/23 mg-600 mg tablet extended Congestion [id number] hr (Mucinex DM) diphenhydramine HCl 25 mg tablet 25 mg PO .Q4-6 PRN .allergy 06/07/23 09/22/23 (Benadryl Allergy) famotidine 40 mg tablet 40 mg PO HS 06/07/23 09/22/23 nut.tx.gluc.intol,lac-free,soy 1 ea PO BID 06/07/23 09/22/23 (Glucerna oral liquid) linagliptin 5 mg tablet (Tradjenta) 5 mg PO DAILY 08/15/23 09/22/23 Previous Rx's Medication Instructions Recorded albuterol sulfate 90 mcg/actuation 2 puff inhalation QIDR PRN 03/03/23 aerosol inhaler (Ventolin HFA) shortness of breath or wheezing #6.7 grams dextromethorphan-guaifenesin 5 10 ml PO Q6H PRN cough #118 mL 03/03/23 mg-100 mg/5 mL oral liquid (Robitussin Cough-Chest Congestion DM) bisacodyl 10 mg rectal suppository 10 mg [place] DAILY PRN constipation 08/23/23 #30 ea levetiracetam 250 mg tablet 250 mg PO BID 90 days #180 tabs 08/30/23 (Keppra) phenytoin sodium extended 100 mg 200 mg (2 x 100 mg) PO BID 90 days 08/30/23 capsule (Dilantin Extended) #360 caps sennosides 8.6 mg-docusate sodium 1 tab PO BID #60 tabs 09/21/23 50 mg tablet (Senokot-S) Results & Data (ED) Vital Signs Vital Signs - 24 hr 09/22/23 09:55 Pulse Rate 101 H Home Medications Current Medication List: was personally reviewed by me Laboratory Data Attestation: I reviewed the patient's lab results. 09/23/23 07:25 09/24/23 07:20 Lab Results 09/22/23 09/22/23 09/22/23 Range/Units 10:11 10:14 10:35 WBC 7.80 (4.8-10.8) K/ul RBC 4.36 (4.20-5.40) M/uL Hgb 13.4 (12.0-16.0) g/dl Hct 40.4 (37.0-47.0) % MCV 92.7 (80.0-100.0) fL MCH 30.7 (25.0-34.0) pg MCHC 33.2 (32.0-36.0) g/dL RDW Std Deviation 50.4 H (36.4-46.3) fL RDW Coeff of Liliana 14.7 H (11.5-14.5) % Plt Count 197 (130-400) K/uL MPV 11.1 (9.4-12.4) fL Immature Gran % (Auto) 0.6 % Neut % (Auto) 82.8 % Lymph % (Auto) 9.0 % [place] % (Auto) 7.3 % Eos % (Auto) 0.0 % Baso % (Auto) 0.3 % Neut # (Auto) 6.46 (1.40-6.50) K/uL Lymph # (Auto) 0.70 L (1.20-3.40) K/uL [place] # (Auto) 0.57 (0.11-0.59) K/uL Eos # (Auto) 0.00 (0.00-0.50) K/uL Baso # (Auto) 0.02 (0.00-0.20) K/uL Immature Gran # (Auto) 0.05 (0.01-0.20) K/uL PT 10.6 (9.0-12.0) Seconds INR 1.0 (0.9-1.1) APTT 24 (21-31) Seconds PTT Ratio 0.9 Sodium 138 (136-145) mmol/L Potassium 4.2 (3.5-5.1) mmol/L Chloride 102 (98-107) mmol/L Carbon Dioxide 27 (21-32) mmol/L Anion Gap 9 (3-11) BUN 13 (6-23) mg/dl Creatinine 0.66 (0.6-1.2) mg/dl Est Cr Clr Drug Dosing 84.6 ml/min Est GFR ( Amer) 110.5 ml/min Est GFR (Non-Af Amer) 95.3 ml/min BUN/Creatinine Ratio 19.7 (10-20) Glucose 237 H (70-99(Fasting)) mg/dl POC Glucose 203 H (70-99) mg/dl Lactate 0.8 (0.4-2.0) mmol/L Calcium 9.3 (8.6-10.3) mg/dl Magnesium 2.0 (1.7-2.4) mg/dl Total Bilirubin 0.5 (0.2-1.0) mg/dl Direct Bilirubin 0.1 (0-0.2) mg/dl AST 17 (13-39) U/L ALT 30 (7-52) U/L Alkaline Phosphatase 147 H (34-104) U/L Ammonia (18-72) umol/L Troponin I High Sens 2.7 (0-14) pg/ml Total Protein 7.2 (6.0-8.3) gm/dl Albumin 4.0 (3.4-5.0) gm/dl Procalcitonin 0.03 (0-0.5) ng/ml Urine Color Urine Appearance (Clear) Urine pH (4.5-7.5) Ur Specific [place] (1.000-1.030) Urine Protein (Negative) Urine Glucose (UA) (Negative) Urine Ketones (Negative) Urine Blood (Negative) Urine Nitrite (Negative) Urine Bilirubin (Negative) Urine Urobilinogen (Negative) Ur Leukocyte Esterase (Negative) 09/22/23 09/22/23 Range/Units 11:04 12:04 WBC (4.8-10.8) K/ul RBC (4.20-5.40) M/uL Hgb (12.0-16.0) g/dl Hct (37.0-47.0) % MCV (80.0-100.0) fL MCH (25.0-34.0) pg MCHC (32.0-36.0) g/dL RDW Std Deviation (36.4-46.3) fL RDW Coeff of Liliana (11.5-14.5) % Plt Count (130-400) K/uL MPV (9.4-12.4) fL Immature Gran % (Auto) % Neut % (Auto) % Lymph % (Auto) % [place] % (Auto) % Eos % (Auto) % Baso % (Auto) % Neut # (Auto) (1.40-6.50) K/uL Lymph # (Auto) (1.20-3.40) K/uL [place] # (Auto) (0.11-0.59) K/uL Eos # (Auto) (0.00-0.50) K/uL Baso # (Auto) (0.00-0.20) K/uL Immature Gran # (Auto) (0.01-0.20) K/uL PT (9.0-12.0) Seconds INR (0.9-1.1) APTT (21-31) Seconds PTT Ratio Sodium (136-145) mmol/L Potassium (3.5-5.1) mmol/L Chloride (98-107) mmol/L Carbon Dioxide (21-32) mmol/L Anion Gap (3-11) BUN (6-23) mg/dl Creatinine (0.6-1.2) mg/dl Est Cr Clr Drug Dosing ml/min Est GFR ( Amer) ml/min Est GFR (Non-Af Amer) ml/min BUN/Creatinine Ratio (10-20) Glucose (70-99(Fasting)) mg/dl POC Glucose (70-99) mg/dl Lactate (0.4-2.0) mmol/L Calcium (8.6-10.3) mg/dl Magnesium (1.7-2.4) mg/dl Total Bilirubin (0.2-1.0) mg/dl Direct Bilirubin (0-0.2) mg/dl AST (13-39) U/L ALT (7-52) U/L Alkaline Phosphatase (34-104) U/L Ammonia 20.0 (18-72) umol/L Troponin I High Sens (0-14) pg/ml Total Protein (6.0-8.3) gm/dl Albumin (3.4-5.0) gm/dl Procalcitonin (0-0.5) ng/ml Urine Color Dark Yellow Urine Appearance Clear (Clear) Urine pH 6.5 (4.5-7.5) Ur Specific [place] 1.014 (1.000-1.030) Urine Protein Negative (Negative) Urine Glucose (UA) 2+ H (Negative) Urine Ketones Negative (Negative) Urine Blood Negative (Negative) Urine Nitrite Negative (Negative) Urine Bilirubin Negative (Negative) Urine Urobilinogen Negative (Negative) Ur Leukocyte Esterase Negative (Negative) Administered Medications Atorvastatin Calcium (Atorvastatin 40 Mg Tab) 40 mg PO [facility] Stop: 10/22/23 22:24 Last Admin: 09/23/23 21:29 Dose: 40 mg Documented By: Admin: 09/22/23 23:27 Dose: 40 mg Documented By: KHADAR Clozapine (Clozapine 100 Mg Tab) 300 mg PO DAILY@1999 [facility] Stop: 10/23/23 19:59 Last Admin: 09/23/23 21:30 Dose: 300 mg Documented By: KHADAR Enoxaparin Sodium (Enoxaparin Inj 40 Mg/0.4 Ml Syr) 40 mg SQ [facility] Stop: 10/22/23 22:24 Last Admin: 09/23/23 21:30 Dose: 40 mg Documented By: Admin: 09/22/23 23:27 Dose: 40 mg Documented By: KHADAR Famotidine (Famotidine 40 Mg Tablet) 40 mg PO [facility] Stop: 10/22/23 22:24 Last Admin: 09/23/23 21:29 Dose: 40 mg Documented By: Admin: 09/22/23 23:27 Dose: 40 mg Documented By: KHADAR Fluticasone Propionate (Fluticasone Propionate Na Spr 16 Gm Btl) 2 sprays NA QPM [facility] Stop: 10/22/23 22:24 Last Admin: 09/23/23 21:30 Dose: 2 sprays Documented By: Admin: 09/22/23 23:27 Dose: 2 sprays Documented By: KHADAR Insulin Aspart (Insulin Aspart Per Unit Charge) 0 units SC ACHS [facility] Stop: 10/22/23 22:24 Last Admin: 09/24/23 08:09 Dose: Not Given Documented By: Admin: 09/23/23 21:31 Dose: Not Given Documented By: Admin: 09/23/23 18:21 Dose: Not Given Documented By: Admin: 09/23/23 12:26 Dose: Not Given Documented By: Admin: 09/23/23 07:55 Dose: Not Given Documented By: Admin: 09/22/23 23:22 Dose: Not Given Documented By: KHADAR Insulin Glargine (Lantus Per Unit Charge) 0 - 8 units SQ DAILY [facility] Stop: 10/22/23 22:24 Last Admin: 09/24/23 08:10 Dose: Not Given Documented By: Admin: 09/23/23 07:54 Dose: Not Given Documented By: Admin: 09/22/23 23:22 Dose: Not Given Documented By: KHADAR Levetiracetam (Levetiracetam 250 Mg Tab) 250 mg PO BID [facility] Stop: 10/22/23 22:24 Last Admin: 09/24/23 08:08 Dose: 250 mg Documented By: Admin: 09/23/23 21:28 Dose: 250 mg Documented By: Admin: 09/23/23 07:52 Dose: 250 mg Documented By: Admin: 09/22/23 23:27 Dose: 250 mg Documented By: KHADAR Multivitamins/Minerals (Cerovite Adv Formula Tab) 1 tab PO QAM [facility] Stop: 10/23/23 08:59 Last Admin: 09/24/23 08:08 Dose: 1 tab Documented By: Admin: 09/23/23 07:53 Dose: 1 tab Documented By: JIM Phenytoin Sodium (Phenytoin Sodium Er 100 Mg Cap) 200 mg PO BID [facility] Stop: 10/22/23 22:24 Last Admin: 09/24/23 08:08 Dose: 200 mg Documented By: Admin: 09/23/23 21:31 Dose: 200 mg Documented By: Admin: 09/23/23 07:52 Dose: 200 mg Documented By: Admin: 09/22/23 23:26 Dose: 200 mg Documented By: KHADAR Polyethylene Glycol (Polyethylene (Miralax) 17 Gm Pack) 17 gm PO BID [facility] Stop: 10/22/23 22:24 Last Admin: 09/24/23 08:08 Dose: 17 gm Documented By: Admin: 09/23/23 21:28 Dose: 17 gm Documented By: Admin: 09/23/23 07:56 Dose: Not Given Documented By: Admin: 09/22/23 22:53 Dose: Not Given Documented By: KHADAR Senna/Docusate Sodium (Docusate Sodium/Senna 50/8.6mg Tab) 1 tab PO BID [facility] Stop: 10/22/23 22:24 Last Admin: 09/24/23 08:08 Dose: 1 tab Documented By: Admin: 09/23/23 21:29 Dose: 1 tab Documented By: Admin: 09/23/23 07:55 Dose: Not Given Documented By: Admin: 09/22/23 23:26 Dose: 1 tab Documented By: KHADAR Valacyclovir HCl (Valacyclovir Hcl 500 Mg Tablet) 500 mg PO DAILY [facility] Stop: 10/23/23 08:59 Last Admin: 09/24/23 08:08 Dose: 500 mg Documented By: Admin: 09/23/23 07:53 Dose: 500 mg Documented By: JIM Discontinued Medications Bisacodyl (Bisacodyl 10 Mg Supp) 10 mg [place] NOW STA Stop: 09/22/23 17:22 Last Admin: 09/22/23 19:16 Dose: Not Given Documented By: [facility] Clozapine (Clozapine 100 Mg Tab) 600 mg PO DAILY@1999 [facility] Stop: 10/22/23 22:44 Last Admin: 09/22/23 23:26 Dose: 600 mg Documented By: KHADAR Sodium Chloride (Nss) 1,000 mls @ 999 mls/hr IV .Q1H1M [facility] Stop: 09/22/23 11:30 Last Infusion: 09/22/23 12:14 Dose: Infused Documented By: Admin: 09/22/23 11:13 Dose: 999 mls/hr Documented By: ANGEL Sodium Chloride (Nss) 1,000 mls @ 75 mls/hr IV .[id number] [facility] Stop: 09/23/23 11:44 Last Infusion: 09/23/23 12:46 Dose: 0 mls/hr Documented By: Admin: 09/22/23 23:34 Dose: 75 mls/hr Documented By: KHADAR Imaging Data Radiologist's Impression: Chest X-Ray 09/22/23 10:29 XR chest 1V portable CLINICAL HISTORY: Sepsis TECHNIQUE: Single frontal radiograph of the chest was obtained. Comparison: Comparison is made to chest radiograph 09/15/2023 FINDINGS: No lines and tubes are seen. The cardiomediastinal silhouette is normal. The lungs are clear. No evidence of pleural effusion or pneumothorax. IMPRESSION: No acute abnormalities and in particular no radiographic evidence of pneumonia. ACT 112: Negative or not required by law. Electronically signed by: Omari Ramirez M.D. 09/22/2023 11:[address] 09/22/23 12:10 CT head/brain wo con CLINICAL HISTORY: AMS Technique: Contiguous axial CT images of the head were acquired from the base of the skull to the vertex without intravenous contrast administration. Images were viewed in brain, subdural and bone windows. Automated dose lowering techniques and/or adjustment according to patient size were utilized for this exam. Comparison: Comparison is made to CT head 09/15/2023 Findings: Areas of decreased attenuation are present in the periventricular and subcortical white matter bilaterally consistent with small vessel ischemic disease. Generalized cerebral atrophy with commensurate enlargement of the ventricles, sulci, and cisterns is also present. There is no acute intracranial hemorrhage or evidence of acute territorial infarction. No shift of the midline structures, mass effect, or extra-axial abnormalities are shown. Atherosclerotic calcifications are present in the intracranial segments of the internal carotid arteries. Imaged portions of the paranasal sinuses and mastoid air cells are clear. The orbits appear normal. There are no acute fractures of the calvaria or scalp swelling. Impression: No acute intracranial hemorrhage, no evidence of acute territorial infarction or other acute intracranial disease process. ACT 112: Negative or not required by law. Electronically signed by: Omari Ramirez M.D. 09/22/2023 12:52 PM Brain MRI 09/22/23 14:16 Brain MRI WITHOUT CONTRAST HISTORY: Altered mental status TECHNIQUE: Multiplanar multisequence MRI of the brain was performed without the use of contrast. COMPARISON STUDY: Head CT 09/22/2023. Brain MRI 05/18/2023. FINDINGS: There is no mass, hematoma, midline shift, or acute infarct. The paranasal sinuses are clear. The mastoid air cells are clear. Moderate enlargement of lateral ventricles, unchanged. This is out of proportion to sulcal atrophy and raises the possibility of normal pressure hydrocephalus. Scattered foci of T2 hyperintensity seen within the periventricular and subcortical white matter are nonspecific but suggestive of mild microvascular ischemic changes. The major vascular flow voids at the skull base are well- maintained. IMPRESSION: 1. No significant change compared to the prior study. 2. No acute infarct or intracranial hemorrhage. 3. Moderate enlargement of lateral ventricles, unchanged. This is out of proportion to sulcal atrophy and raises the possibility of normal pressure hydrocephalus. ACT 112: Negative or not required by law. Electronically signed by: Kendall Sanderson M.D. 09/22/2023 6:36 PM Knee X-Ray 09/22/23 14:16 XR knee LT 3V CLINICAL HISTORY: Left knee pain. COMPARISON STUDY: Left knee 09/15/2023. FINDINGS: There is intra-articular fracture involving the left medial tibial plateau. This demonstrates up to 2 mm of depression. A moderate lipohemarthrosis is noted. No dislocation. The distal femur is intact. Irregularity at the medial patella may be chronic. IMPRESSION: Slightly depressed left medial tibial plateau fracture with an associated lipohemarthrosis. ACT 112: Negative or not required by law. Electronically signed by: Kendall Sanderson M.D. 09/22/2023 3:08 PM Discharge Plan Visit Data Chief Complaint: Lethargic Stated Complaint: LETHARGIC, WEAKNESS ED Provider: Jc Garrido Discharge Problem: Lethargy, Tibial plateau fracture, left, Weakness Patient Disposition: Admitted As Inpatient Discharge Instructions Interventions: ED Discharge Assessment Last Done: 09/22/23 22:20 Discharge Problem: Tibial plateau fracture, left Qualifiers: Encounter type: initial encounter Fracture type: closed Qualified Code(s): S 82.142A - Displaced bicondylar fracture of left tibia, initial encounter for closed fracture
[2023-09-22 10:47] LABS: Basophils # (auto) 0.02 K/uL (0.00-0.20); Basophils % (auto) 0.3 %; Hematocrit (blood only) 40.4 % (37.0-47.0); Hemoglobin 13.4 g/dl (12.0-16.0); Immature Granulocytes # (auto) 0.05 K/uL (0.01-0.20); Immature Granulocytes % (auto) 0.6 %; Mean Corpuscular Hemoglobin 30.7 pg (25.0-34.0); Mean Corpuscular Hgb Conc 33.2 g/dL (32.0-36.0); Mean Corpuscular Volume 92.7 fL (80.0-100.0); Mean Platelet Volume 11.1 fL (9.4-12.4); Monocytes # (auto) 0.57 K/uL (0.11-0.59); Monocytes % (auto) 7.3 %; Neutrophils # (auto) 6.46 K/uL (1.40-6.50); Neutrophils % (auto) 82.8 %; Platelet Count 197 K/uL (130-400); RDW Coefficient of Variation 14.7 % (11.5-14.5); RDW Standard Deviation 50.4 fL (36.4-46.3); Red Blood Count 4.36 M/uL (4.20-5.40)
[2023-09-22 10:53] LABS: Partial Thromboplastin Ratio 0.9; Partial Thromboplastin Time 24 Seconds (21-31); Prothrombin Time 10.6 Seconds (9.0-12.0)
[2023-09-22 11:10] LABS: BUN Creatinine Ratio 19.7 (10-20); Bilirubin Direct 0.1 mg/dl (0-0.2); Bilirubin,Total 0.5 mg/dl (0.2-1.0); Calcium 9.3 mg/dl (8.6-10.3); Creatinine Clr Calc Pharmacy 84.6 ml/min; Est GFR (African American) 110.5 ml/min; Est GFR (Non-African American) 95.3 ml/min; Potassium 4.2 mmol/L (3.5-5.1); Total Protein 7.2 gm/dl (6.0-8.3)
[2023-09-22] MEDS: SODIUM CHLORIDE 0.9% 1,000 ML IV SCH ×2 (11:13→23:34)
[2023-09-22 11:15] LABS: Troponin I High Sensitivity 2.7 pg/ml (0-14)
--- NOTE | 2023-09-22 11:28 | XRay Report ---
XR chest 1V portable CLINICAL HISTORY: Sepsis TECHNIQUE: Single frontal radiograph of the chest was obtained. Comparison: Comparison is made to chest radiograph 09/15/2023 FINDINGS: No lines and tubes are seen. The cardiomediastinal silhouette is normal. The lungs are clear. No evid ence of pleural effusion or pneumothorax. IMPRESSION: No acute abnormalities and in particular no radiographic evidence of pneumonia. ACT 112: Negative or not required by law. Electronically signed by: Omari Ramirez M.D. 09/22/2023 11:27 AM
[2023-09-22 12:25] LABS: Appearance Urine Clear (Clear); Bilirubin Urine Negative (Negative); Blood Urine Negative (Negative); Color Urine Dark Yellow; Glucose Urine UA 2+ (Negative); Ketones Urine Negative (Negative); Leukocyte Esterase Urine Negative (Negative); Nitrite Urine Negative (Negative); Protein Urine Negative (Negative); Specific Gravity Urine 1.014 (1.000-1.030); Urobilinogen Urine Negative (Negative); pH Urine 6.5 (4.5-7.5)
--- NOTE | 2023-09-22 12:53 | CT Scan Report ---
CT head/brain wo con CLINICAL HISTORY: AMS Technique: Contiguous axial CT images of the head were acquired from the base of the skull to the dar amish without intravenous contrast administration. Images were viewed in brain, subdural and [facility]. Automated dose lowering techniques and/or adjustment according to patient size were utilized for this exam. Comparison: Comparison is made to CT head 09/15/2023 Findings: Areas of decreased attenuation are present in the periventricular and subcortical white matter bilate rally consistent with small vessel ischemic disease. Generalized cerebral atrophy with commensurate e nlargement of the ventricles, sulci, and cisterns is also present. There is no acute intracranial hem orrhage or evidence of acute territorial infarction. No shift of the midline structures, mass effect, or extra-axial abnormalities are shown. Atherosclerotic calcifications are present in the intracran ial segments of the internal carotid arteries. Imaged portions of the paranasal sinuses and mastoid air cells are clear. The orbits appear normal. There are no acute fractures of the calvaria or scalp swelling. Impression: No acute intracranial hemorrhage, no evidence of acute territorial infarction or other acute intracra nial disease process. ACT 112: Negative or not required by law. Electronically signed by: Omari Ramirez M.D. 09/22/2023 12:52 PM
--- NOTE | 2023-09-22 15:09 | XRay Report ---
XR knee LT 3V CLINICAL HISTORY: Left knee pain. COMPARISON STUDY: Left knee 09/15/2023. FINDINGS: There is intra-articular fracture involving the left medial tibial plateau. This demonstrat es up to 2 mm of depression. A moderate lipohemarthrosis is noted. No dislocation. The distal femur i s intact. Irregularity at the medial patella may be chronic. IMPRESSION: Slightly depressed left medial tibial plateau fracture with an associated lipohemarthros is. ACT 112: Negative or not required by law. Electronically signed by: Kendall Sanderson M.D. 09/22/2023 3:08 PM
--- NOTE | 2023-09-22 17:00 | History & Physical Report ---
Date of Service September 22, 2023 Assessment & Plan (1) Weakness: (2) Lethargy: (3) Constipation in female: (4) Ambulatory dysfunction: (5) Tibial plateau fracture, left: (6) Intellectual delay: (7) DMII (diabetes mellitus, type 2): (8) Schizophrenia: (9) Seizure disorder: Plan Patient is 63 year old female with a PMH of seizures, ambulatory dysfunction, cognitive dysfunction, schizophrenia, DM II, and other medical problems presents from [facility] with c/o generalized weakness. Weakness Lethargy Patient recently admitted and discharged yesterday, 09/20 with similar complaints as well as a UTI She completed course of antibiotic this morning She does not have any infectious signs or symptoms ED ordered MRI, will await results She is more drowsy and less interactive today Will treat constipation Recent phenytoin level was acceptable PT/OT Ambulatory dysfunction Recent fall, prior to previous admission Left tibial plateau fracture PT/OT Knee brace Consult Ortho Constipation bisacodyl x 1 now miralax BID KUB petr.m. pt suffers from chronic constipation, need to establish good bowel regimen psych feels related to clozapine and will need outpt psych follow up Hyperglycemia H/O DM II HbA1c 5.3 , will repeat a1c in a.m. hold p.o. medications per previous admission: "Blood sugars have been running high at personal care facility" Continue insulin while hospitalized Monitor blood glucose levels Per Previous admission: "Discussed with early childhood educator aide--Given A1c likely unreliable, given variable blood glucose levels at senior care, plan to continue outpatient diabetic regimen on discharge" Hyperlipidemia on statin Seizure disorder Paranoid schizophrenia with auditory hallucinations Intellectual impairment --Dilantin level 7.4 Continue home medications, appears stable await MRI results DVT Px: Lovenox SQ Code Status: Full code PCP: Delmy Jacobsen Dispo: PT/OT, pt likely to need rehab Pt was seen and examined in collaboration with Dr. Metz, please see addendum A total of 45 minutes was spent coordinating, documenting, and providing care for this patient excluding time spent in the performance of separately billed services. This included personally viewing all current laboratories and imaging studies, medication reconciliation, outpatient chart review, and discussion with specialists. History of Present Illness Chief Complaint: Generalized weakness. Primary Care Provider: Delmy Jacobsen PA-C Patient is 63 year old female with a PMH of seizures, ambulatory dysfunction, cognitive dysfunction, schizophrenia, DM II, and other medical problems presents from [facility] with c/o generalized weakness. Of significance patient was recently hospitalized 09/15 to 09/20. She was hospitalized secondary to generalized weakness, recurrent falls and UTI. Her urine culture grew E. coli. She was initially treated with IV Rocephin and then transition to cefdinir. Her hospital course was complicated with constipation. It was felt this was secondary to her closet pain. She was placed on bowel regimen and psychiatry recommended follow-up as outpatient. She was seen and evaluated by PT and OT. It was recommended that she possibly could return back to senior care. Upon discharge she still requires a lot of assistance. The senior project manager of the senior care is at bedside who provides history. Last night she was alert and talkative. Today she has been very drowsy, lethargic and still continues difficulty walking. She did not have a BM since discharge. Staff gave a suppository last evening w/o result. There is no reported nausea or vomiting. She was able to take her meds today. She completed the course of antibiotics this morning. Allergies Allergy/AdvReac Type Severity Reaction Status Date / Time divalproex sodium Allergy Unknown Unknown Verified 09/15/23 22:03 [From Depakote] salicylates Allergy Unknown Unknown Verified 09/15/23 22:03 valproic acid Allergy Unknown Unknown Verified 09/15/23 22:03 aspirin AdvReac Severe STOMACH Verified 09/15/23 22:03 ULCER BLEEDING Home Medications Medication Instructions Recorded Confirmed Type atorvastatin 40 mg tablet 40 mg PO HS 07/17/18 09/22/23 History glimepiride 2 mg tablet 2 mg PO BID 07/17/18 09/22/23 History multivit-iron 18 mg-folic acid 400 1 tab PO QAM 07/17/18 09/22/23 History mcg-calcium 500 mg-minerals tablet (Women's One Daily) vitamin B complex 1 tab PO QAM 08/25/18 09/22/23 History fluticasone propionate 50 2 sprays intranasal QPM 02/15/19 09/22/23 History mcg/actuation nasal spray,suspension ammonium lactate 12 % topical cream 1 applic topical QAM 05/21/19 09/22/23 History triamcinolone acetonide 0.1 % 1 applic topical BID PRN Rash 07/10/21 09/22/23 History topical cream clozapine 200 mg tablet 600 mg PO DAILY@199910/31/21 09/22/23 History valacyclovir 500 mg tablet 500 mg PO DAILY 02/18/22 09/22/23 History glimepiride 1 mg tablet 1 mg PO DIRECTED PRN BSG >300. 10/14/22 09/22/23 History polyethylene glycol 3350 17 gram 17 g PO BID 10/19/22 09/22/23 History oral powder packet (Miralax) calcium citrate 315 mg-vitamin D3 2 tab PO QAM ##0 02/11/23 09/22/23 History 5 mcg (200 unit) tablet (Calcium Citrate + D) albuterol sulfate 90 mcg/actuation 2 puff inhalation QIDR PRN 03/03/23 09/22/23 Rx aerosol inhaler (Ventolin HFA) shortness of breath or wheezing #6.7 grams dextromethorphan-guaifenesin 5 10 ml PO Q6H PRN cough #118 mL 03/03/23 09/22/23 Rx mg-100 mg/5 mL oral liquid (Robitussin Cough-Chest Congestion DM) acetaminophen 500 mg tablet 1,000 mg PO Q6 PRN Pain 06/07/23 09/22/23 History (Tylenol Extra Strength) dextromethorphan-guaifenesin 30 1 - 2 tab PO Q12H PRN Nasal 06/07/23 09/22/23 History mg-600 mg tablet extended Congestion [id number] hr (Mucinex DM) diphenhydramine HCl 25 mg tablet 25 mg PO .Q4-6 PRN .allergy 06/07/23 09/22/23 History (Benadryl Allergy) famotidine 40 mg tablet 40 mg PO HS 06/07/23 09/22/23 History nut.tx.gluc.intol,lac-free,soy 1 ea PO BID 06/07/23 09/22/23 History (Glucerna oral liquid) linagliptin 5 mg tablet (Tradjenta) 5 mg PO DAILY 08/15/23 09/22/23 History bisacodyl 10 mg rectal suppository 10 mg SD DAILY PRN constipation 08/23/23 09/22/23 Rx #30 ea levetiracetam 250 mg tablet 250 mg PO BID 90 days #180 tabs 08/30/23 09/22/23 Rx (Keppra) phenytoin sodium extended 100 mg 200 mg (2 x 100 mg) PO BID 90 days 08/30/23 09/22/23 Rx capsule (Dilantin Extended) #360 caps sennosides 8.6 mg-docusate sodium 1 tab PO BID #60 tabs 09/21/23 09/22/23 Rx 50 mg tablet (Senokot-S) Past Med/Surg History Medical History Seizure disorder GERD (gastroesophageal reflux disease) Acute metabolic encephalopathy Head injury Fall Acute alteration in mental status Elevated lactic acid level Weakness AMS (altered mental status) DMII (diabetes mellitus, type 2) HSV (herpes simplex virus) anogenital infection Complex partial seizure Depression with anxiety Heart murmur Onychomycosis Hypertension Schizophrenia Surgical History History of colonoscopy Family History Mother Diabetes Other Seizures Social History Smoking Status: Never smoker Hx Alcohol Use: No Hx Substance Use: No Preferred Language: [place] Communication Ability: Effective Communication Ability Comment: Intellectual Disability Visual Impairment: No Limitations Hearing Ability: Normal Casino Cage Manager Required: No Beliefs That Will Affect Care: None marital status: Single Current Living Situation: Other Current Living Situation Comment: senior care current occupational status: disabled Feels Safe at Home: Yes Assistive Devices: Walker and Wheelchair Review of Systems Review of Systems: All systems reviewed & are unremarkable except as noted in HPI & below Physical Exam Physical Exam: please refer to Dr. Metz addendum for physical exam findings Results & Data Results & Data Vital Signs (Past 12 Hours) Vital Signs Temp Pulse Pulse Resp BP BP Pulse Ox 09/22/23 16:37 86 16 113/72 97 09/22/23 14:19 93 H 09/22/23 12:32 93 H 18 136/78 99 09/22/23 12:31 94 H 21 136/78 94 09/22/23 12:00 93 H 18 132/72 100 09/22/23 12:00 94 H 18 132/72 100 09/22/23 11:15 96 H 18 131/77 98 09/22/23 10:46 09/22/23 10:33 101 H 18 112/81 09/22/23 10:33 100 H 18 09/22/23 10:33 102 H 18 112/81 97 09/22/23 10:18 102 H 18 135/77 97 09/22/23 10:18 97 09/22/23 10:18 36.9 C 100 H 18 135/77 98 09/22/23 09:55 101 H O2 Del Method 09/22/23 16:37 Room Air 09/22/23 14:19 09/22/23 12:32 Room Air 09/22/23 12:31 Room Air 09/22/23 12:00 Room Air 09/22/23 12:00 Room Air 09/22/23 11:15 Room Air 09/22/23 10:46 Room Air 09/22/23 10:33 09/22/23 10:33 Room Air 09/22/23 10:33 Room Air 09/22/23 10:18 Room Air 09/22/23 10:18 Room Air 09/22/23 10:18 Room Air 09/22/23 09:55 Diagnostic Findings Chest X-Ray 09/22/23 10:29 XR chest 1V portable CLINICAL HISTORY: Sepsis TECHNIQUE: Single frontal radiograph of the chest was obtained. Comparison: Comparison is made to chest radiograph 09/15/2023 FINDINGS: No lines and tubes are seen. The cardiomediastinal silhouette is normal. The lungs are clear. No evidence of pleural effusion or pneumothorax. IMPRESSION: No acute abnormalities and in particular no radiographic evidence of pneumonia. ACT 112: Negative or not required by law. Electronically signed by: Omari Ramirez M.D. 09/22/2023 11:[address] 09/22/23 12:10 CT head/brain wo con CLINICAL HISTORY: AMS Technique: Contiguous axial CT images of the head were acquired from the base of the skull to the vertex without intravenous contrast administration. Images were viewed in brain, subdural and bone windows. Automated dose lowering techniques and/or adjustment according to patient size were utilized for this exam. Comparison: Comparison is made to CT head 09/15/2023 Findings: Areas of decreased attenuation are present in the periventricular and subcortical white matter bilaterally consistent with small vessel ischemic disease. Generalized cerebral atrophy with commensurate enlargement of the ventricles, sulci, and cisterns is also present. There is no acute intracranial hemorrhage or evidence of acute territorial infarction. No shift of the midline structures, mass effect, or extra-axial abnormalities are shown. Atherosclerotic calcifications are present in the intracranial segments of the internal carotid arteries. Imaged portions of the paranasal sinuses and mastoid air cells are clear. The orbits appear normal. There are no acute fractures of the calvaria or scalp swelling. Impression: No acute intracranial hemorrhage, no evidence of acute territorial infarction or other acute intracranial disease process. ACT 112: Negative or not required by law. Electronically signed by: Omari Ramirez M.D. 09/22/2023 12:52 PM Knee X-Ray 09/22/23 14:16 XR knee LT 3V CLINICAL HISTORY: Left knee pain. COMPARISON STUDY: Left knee 09/15/2023. FINDINGS: There is intra-articular fracture involving the left medial tibial plateau. This demonstrates up to 2 mm of depression. A moderate lipohemarthrosis is noted. No dislocation. The distal femur is intact. Irregularity at the medial patella may be chronic. IMPRESSION: Slightly depressed left medial tibial plateau fracture with an associated lipohemarthrosis. ACT 112: Negative or not required by law. Electronically signed by: Kendall Sanderson M.D. 09/22/2023 3:08 PM Medications Administered Medication List Discontinued Medications Sodium Chloride (Nss) 1,000 mls @ 999 mls/hr IV .Q1H1M DELMI Stop: 09/22/23 11:30 Last Infusion: 09/22/23 12:14 Dose: Infused Documented By: Admin: 09/22/23 11:13 Dose: 999 mls/hr Documented By: TNK ECG Additional Comments: I have independently reviewed and interpreted patient's admitting EKG which revealed: 101 ST, no st or t wave change qtc 446ms COVID-19 Results Results COVID-19 Adm Lab Results: RBC 4.36 M/uL (4.20-5.40) 09/22/23 WBC 7.80 K/ul (4.8-10.8) 09/22/23 Hgb 13.4 g/dl (12.0-16.0) 09/22/23 Hct 40.4 % (37.0-47.0) 09/22/23 Plt Count 197 K/uL (130-400) 09/22/23 Neutrophils (%) (Auto) 82.8 % 09/22/23 Lymphocytes (%) (Auto) 9.0 % 09/22/23 Monocytes # (Auto) 0.57 K/uL (0.11-0.59) 09/22/23 Eosinophils # (Auto) 0.00 K/uL (0.00-0.50) 09/22/23 Immature Granulocyte % (Auto) 0.6 % 09/22/23 Neutrophils # (Auto) 6.46 K/uL (1.40-6.50) 09/22/23 Lymphocytes # (Auto) 0.70 K/uL (1.20-3.40) L 09/22/23 Monocytes # (Auto) 0.57 K/uL (0.11-0.59) 09/22/23 Eosinophils # (Auto) 0.00 K/uL (0.00-0.50) 09/22/23 Basophils # (Auto) 0.02 K/uL (0.00-0.20) 09/22/23 Immature Granulocyte # (Auto) 0.05 K/uL (0.01-0.20) 4 Na 138 mmol/L (136-145) 09/22/23 K 4.2 mmol/L (3.5-5.1) 09/22/23 Cl 102 mmol/L (98-107) 09/22/23 CO2 27 mmol/L (21-32) 09/22/23 Anion Gap 9 (3-11) 09/22/23 BUN 13 mg/dl (6-23) 09/22/23 Creatinine 0.66 mg/dl (0.6-1.2) 09/22/23 BUN/Creatinine Ratio 19.7 (10-20) 09/22/23 Glucose Level 237 mg/dl (70-99(Fasting)) H 09/22/23 Ca 9.3 mg/dl (8.6-10.3) 09/22/23 Total Bilirubin 0.5 mg/dl (0.2-1.0) 09/22/23 Direct Bilirubin 0.1 mg/dl (0-0.2) 09/22/23 AST/SGOT 17 U/L (13-39) 09/22/23 ALT/SGPT 30 U/L (7-52) 09/22/23 Alkaline Phosphatase 147 U/L (34-104) H 09/22/23 Total Protein 7.2 gm/dl (6.0-8.3) 09/22/23 Albumin 4.0 gm/dl (3.4-5.0) 09/22/23 Procalcitonin 0.03 ng/ml (0-0.5) 09/22/23 PTT 24 Seconds (21-31) 09/22/23 INR 1.0 (0.9-1.1) 09/22/23 Chest X-Ray 09/22/23 Code Status & VTE Plan Code Status FULL CODE Supervising Physician Co-Signing Physician Notes I have seen and discussed the case with the collaborating advanced practitioner. I agree with the above H&P. I have reviewed and confirmed the patients medical history, the findings on physical examination, and the patients diagnosis and treatment plan with CHRIS and agree with the information documented. 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 Patient discharged 09/20 for management of UTI and confusion. Noted to have severe constipation on exam. Evaluated by GI who started miralax BID and cleared for discharge. No clear BM reported, no BM at facility. Patient unable to give history. Lodging Facilities Attendant from senior care at bedside for history. Reports patient was more awake yesterday, but not participating in activities, then more lethargic/solmonlent this morning prompting presentation to ED. No other concerns voiced outside of AMS. Patient completed ABX for UTI. Labs appear stable. GENERAL APPEARANCE: AxOx1, somnolent, awakens to follow commands, then drifts to sleep HEENT: NC, AT. MMM. EOMI, clear conjunctiva NECK: Supple without lymphadenopathy. No stiffness or restricted ROM. HEART: Normal rate and regular rhythm, normal S1/S1, no m/r/g LUNGS: CTAB, moving air well. No crackles or wheezes are heard. ABDOMEN: Soft, nontender, mild distention, no grimacing on exam +BS BACK: No CVAT, no obvious deformity. EXTREMITIES: Without cyanosis, clubbing or edema.trace bruising of right knee = NEUROLOGICAL: Grossly nonfocal. moving all 4 extremities. CN not formally tested but appear grossly intact. Skin: Warm and dry without any rash. #AMS #Seizure d/o -low suspicion for infection: WBC WNL, concern for constipation/obstipation contributing continue dilantin, keppra CTM #Obstipation/constipation -Continue Mirlax BID, docusate/senna -bisacodyl suppository now Rest of plan as above I spent a total of 35 minutes coordinating, documenting, and providing care for this patient excluding time spent in the performance of separately billed services. All of the aforementioned completed outside of collaborating with the assigned advanced practitioner for a full treatment plan. I have reviewed the advanced practitioner's documentation, and I agree with, and take responsibility for the plan of care (7) DMII (diabetes mellitus, type 2) Diabetes mellitus complication status: with other specified complication Diabetes mellitus shelter insulin use: without longwall shearer operator use Qualified Code(s): E11.69 - Type 2 diabetes mellitus with other specified complication (8) Schizophrenia Schizophrenia type: unspecified Qualified Code(s): F20.9 - Schizophrenia, unspecified
--- NOTE | 2023-09-22 18:39 | Magnetic Resonance Report ---
Brain MRI WITHOUT CONTRAST HISTORY: Altered mental status TECHNIQUE: Multiplanar multisequence MRI of the brain was performed without the use of contrast. COMPARISON STUDY: Head CT 09/22/2023. Brain MRI 05/18/2023. FINDINGS: There is no mass, hematoma, midline shift, or acute infarct. The paranasal sinuses are ismael r. The mastoid air cells are clear. Moderate enlargement of lateral ventricles, unchanged. This is ou t of proportion to sulcal atrophy and raises the possibility of normal pressure hydrocephalus. Scatte red foci of T2 hyperintensity seen within the periventricular and subcortical white matter are nonspe cific but suggestive of mild microvascular ischemic changes. The major vascular flow voids at the u ll base are well-maintained. IMPRESSION: 1. No significant change compared to the prior study. 2. No acute infarct or intracranial hemorrhage. 3. Moderate enlargement of lateral ventricles, unchanged. This is out of proportion to sulcal atrophy and raises the possibility of normal pressure hydrocephalus. ACT 112: Negative or not required by law. Electronically signed by: Kendall Sanderson M.D. 09/22/2023 6:36 PM
[2023-09-22] MEDS: bisacodyL 10 MG SUPP PR STA (19:16)
--- NOTE | 2023-09-22 22:05 | CT Scan Report ---
Exam(s): CT LEFT KNEE Without Contrast EXAM: CT Left Lower Extremity Without Intravenous Contrast, Knee CLINICAL HISTORY: Reason for exam: fracture. TECHNIQUE: Axial computed tomography images of the left knee without intravenous contrast. CTDI is 19.67 mGy and DLP is 318.42 mGy-cm. Automated exposure control was utilized for the study. A dose lowering technique was utilized adhering to the principles of ALARA. COMPARISON: Left knee x-ray dated 09/22/23 FINDINGS: Bones/joints: Left medial tibial plateau fracture with 2 mm depression. Fracture lines extend to the base of the tibial spines. Moderate lipohemarthrosis. No dislocation. Soft tissues: Mild associated soft tissue swelling. IMPRESSION: 1. Left medial tibial plateau fracture with 2 mm depression. Fracture lines extend to the base of the tibial spines. 2. Moderate lipohemarthrosis. Electronically signed by: Javier Khoury M.D. 09/22/23 22:04 PM
[2023-09-22] MEDS ORDERED: ALBUTEROL HFA 8 GM INHALER INH PRN (22:25)
[2023-09-22] MEDS ORDERED: DEXTROSE 50% 50 ML SYRINGE IV PRN (22:25)
[2023-09-22] MEDS ORDERED: ONDANSETRON INJ 2 MG/ML 2 ML VIAL IV PRN (22:25)
[2023-09-22] MEDS ORDERED: ACETAMINOPHEN 325 MG TAB PO PRN (22:25)
[2023-09-22] MEDS ORDERED: CARBOHYDRATES FOR HYPOGLYCEMIA PO PRN (22:25)
[2023-09-22] MEDS ORDERED: GLUCAGON FOR INJ 1 MG VIAL SQ PRN (22:25)
[2023-09-22] MEDS ORDERED: GLUCOSE 10 TAB/TUBE PO PRN (22:25)
[2023-09-22] MEDS ORDERED: GLUCOSE 40% GEL 15 GM TUBE PO PRN (22:25)
[2023-09-22] MEDS ORDERED: MAGNESIUM HYDROXIDE SUSP 30 ML UDC PO PRN (22:25)
[2023-09-22] MEDS ORDERED: ALUMINUM/MAGNESIUM SUSP 30 ML UDC PO PRN (22:25)
[2023-09-22] MEDS: POLYETHYLENE (MIRALAX) 17 GM PACK PO SCH (22:53)
[2023-09-22] MEDS: INSULIN ASPART PER UNIT CHARGE SC SCH (23:22)
[2023-09-22] MEDS: LANTUS PER UNIT CHARGE SQ SCH (23:22)
[2023-09-22] MEDS: DOCUSATE SODIUM/SENNA 50/8.6MG TAB PO SCH (23:26)
[2023-09-22] MEDS: cloZAPine 100 MG TAB PO SCH (23:26)
[2023-09-22] MEDS: PHENYTOIN SODIUM ER 100 MG CAP PO SCH (23:26)
[2023-09-22] MEDS: ATORVASTATIN 40 MG TAB PO SCH (23:27)
[2023-09-22] MEDS: FLUTICASONE PROPIONATE NA SPR 16 GM BTL SCH (23:27)
[2023-09-22] MEDS: levETIRAcetam 250 MG TAB PO SCH (23:27)
[2023-09-22] MEDS: ENOXAPARIN INJ 40 MG/0.4 ML SYR SQ SCH (23:27)
[2023-09-22] MEDS: FAMOTIDINE 40 MG TABLET PO SCH (23:27)
--- NOTE | 2023-09-23 07:02 | XRay Report ---
KUB CLINICAL HISTORY: stool burden COMPARISON STUDY: KUB September 20, 2023. CT of the abdomen and pelvis September 15, 2023. FINDINGS: Right femoral internal fixation hardware is partially imaged. Large amount of stool within the distal colon and rectum is increased. There is a moderate amount of stool within the remainder of the colon. Gaseous distention of small and large bowel has mildly increased. IMPRESSION: 1. Large amount of stool within the rectum and distal colon, increased since prior exam. 2. Mild increase in gaseous distention of small and large bowel. ACT 112: Negative or not required by law. Electronically signed by: Jose Srinivasan M.D. 09/23/2023 7:01 AM
[2023-09-23] MEDS: valACYclovir HCL 500 MG TABLET PO SCH (07:53)
[2023-09-23] MEDS: CEROVITE ADV FORMULA TAB PO SCH (07:53)
[2023-09-23 08:16] LABS: Hematocrit (blood only) 35.9 % (37.0-47.0); Hemoglobin 11.9 g/dl (12.0-16.0); Mean Corpuscular Hemoglobin 30.9 pg (25.0-34.0); Mean Corpuscular Hgb Conc 33.1 g/dL (32.0-36.0); Mean Corpuscular Volume 93.2 fL (80.0-100.0); Mean Platelet Volume 11.4 fL (9.4-12.4); Platelet Count 142 K/uL (130-400); RDW Coefficient of Variation 14.7 % (11.5-14.5); RDW Standard Deviation 49.8 fL (36.4-46.3); Red Blood Count 3.85 M/uL (4.20-5.40); White Blood Count 4.53 K/ul (4.8-10.8)
[2023-09-23 08:22] LABS: BUN Creatinine Ratio 22.2 (10-20); Calcium 8.4 mg/dl (8.6-10.3); Creatinine Clr Calc Pharmacy 117.7 ml/min; Est GFR (African American) 125.3 ml/min; Est GFR (Non-African American) 108.1 ml/min; Potassium 4.2 mmol/L (3.5-5.1)
[2023-09-23 10:08] LABS: Estimated Average Glucose 105 mg/dl; Hemoglobin A1C 5.3 % (4.5-5.6)
--- NOTE | 2023-09-23 11:46 | XRay Report ---
KUB CLINICAL HISTORY: Constipation. FINDINGS: 2 AP, portable, supine abdominal radiographs are compared to study dated 09/22/2023 and corre lated with abdominal CT dated 09/15/2023. There is mild gaseous distention of the bowel loops with no r adiographic evidence of high-grade obstruction. Moderate constipation is observed. No evidence of int raperitoneal free air is seen on these supine images. There are no abnormal abdominal calcifications. Phleboliths are seen in the pelvis. The skeletal structures are osteopenic. There is moderate to adv anced lumbosacral spondylosis. Postsurgical change seen in the right proximal femur. There are chroni c/healed bilateral rib fractures. IMPRESSION: 1. Moderate constipation. 2. There is mild gaseous distention of the bowel loops with no radiographic evidence of high-grade ob struction. Electronically signed by: Carlos Savage M.D. 09/23/2023 11:45 AM
--- NOTE | 2023-09-23 14:31 | Orthopedic Consultation ---
Date of Consultation September 23, 2023 Assessment & Plan (1) Tibial plateau fracture, left: Dr. Beaulieu present for today's visit. She has a minimally depressed medial tibial plateau fracture of her left knee. At this time we will plan to treat nonoperatively. She needs to be nonweightbearing of her left lower extremity with the knee immobilizer in place at all times. She can do gentle range of motion exercises of her ankle as tolerated. Needs to use a walker to assist with ambulation but due to her cognitive status she may need to be out of bed for transfers to a wheelchair for the next 8 to 12 weeks. She can ice the left knee as needed. They cannot do the knee immobilizer in order to ice. Would recommend follow-up with Dr. Beaulieu in 14 to 21 days for repeat x-ray of the left knee and evaluation. Okay from orthopedic standpoint for discharge when medically stable. Tylenol and/or ibuprofen as needed for pain. Encouraged elevation. An Dewey bandage was applied to her left leg from her foot to her hip for compression. Can reapply this as necessary. Thank you for this consultation. History of Present Illness Reason for Consultation: Left knee tibial plateau fracture x 1 week Attending Physician: Cierra Dao MD History of Present Illness Patient is 63 year old female with a PMH of seizures, ambulatory dysfunction, cognitive dysfunction, schizophrenia, DM II, and other medical problems presents from [facility] with c/o generalized weakness. She presented to the emergency room on September 14 with complaints of left leg pain and injury. They suspected generalized weakness and workup was relatively negative. She was discharged on September 20 from [facility]. She was readmitted on September 22, 2023 with increased somnolence and an activity. There was concern for urinary tract infection. She was admitted to the medical service. She is a resident of [facility]. She is unable to provide a history or explain what happened to her left leg or knee. X-rays were obtained and she was found to have a left depressed tibial plateau fracture. A CT scan was also performed which confirmed a 2 mm depression of the medial tibial plateau fracture. Orthopedic consultation was obtained for further evaluation and treatment recommendations. She is currently in a knee immobilizer. Allergies Allergy/AdvReac Type Severity Reaction Status Date / Time divalproex sodium Allergy Unknown Unknown Verified 09/15/23 22:03 [From Depakote] salicylates Allergy Unknown Unknown Verified 09/15/23 22:03 valproic acid Allergy Unknown Unknown Verified 09/15/23 22:03 aspirin AdvReac Severe STOMACH Verified 09/15/23 22:03 ULCER BLEEDING Home Medications Medication Instructions Recorded Confirmed Type atorvastatin 40 mg tablet 40 mg PO HS 07/17/18 09/22/23 History glimepiride 2 mg tablet 2 mg PO BID 07/17/18 09/22/23 History multivit-iron 18 mg-folic acid 400 1 tab PO QAM 07/17/18 09/22/23 History mcg-calcium 500 mg-minerals tablet (Women's One Daily) vitamin B complex 1 tab PO QAM 08/25/18 09/22/23 History fluticasone propionate 50 2 sprays intranasal QPM 02/15/19 09/22/23 History mcg/actuation nasal spray,suspension ammonium lactate 12 % topical cream 1 applic topical QAM 05/21/19 09/22/23 History triamcinolone acetonide 0.1 % 1 applic topical BID PRN Rash 07/10/21 09/22/23 History topical cream clozapine 200 mg tablet 600 mg PO DAILY@199910/31/21 09/22/23 History valacyclovir 500 mg tablet 500 mg PO DAILY 02/18/22 09/22/23 History glimepiride 1 mg tablet 1 mg PO DIRECTED PRN BSG >300. 10/14/22 09/22/23 History polyethylene glycol 3350 17 gram 17 g PO BID 10/19/22 09/22/23 History oral powder packet (Miralax) calcium citrate 315 mg-vitamin D3 2 tab PO QAM ##0 02/11/23 09/22/23 History 5 mcg (200 unit) tablet (Calcium Citrate + D) albuterol sulfate 90 mcg/actuation 2 puff inhalation QIDR PRN 03/03/23 09/22/23 Rx aerosol inhaler (Ventolin HFA) shortness of breath or wheezing #6.7 grams dextromethorphan-guaifenesin 5 10 ml PO Q6H PRN cough #118 mL 03/03/23 09/22/23 Rx mg-100 mg/5 mL oral liquid (Robitussin Cough-Chest Congestion DM) acetaminophen 500 mg tablet 1,000 mg PO Q6 PRN Pain 06/07/23 09/22/23 History (Tylenol Extra Strength) dextromethorphan-guaifenesin 30 1 - 2 tab PO Q12H PRN Nasal 06/07/23 09/22/23 History mg-600 mg tablet extended Congestion hr (Mucinex DM) diphenhydramine HCl 25 mg tablet 25 mg PO .Q4-6 PRN .allergy 06/07/23 09/22/23 History (Benadryl Allergy) famotidine 40 mg tablet 40 mg PO HS 06/07/23 09/22/23 History nut.tx.gluc.intol,lac-free,soy 1 ea PO BID 06/07/23 09/22/23 History (Glucerna oral liquid) linagliptin 5 mg tablet (Tradjenta) 5 mg PO DAILY 08/15/23 09/22/23 History bisacodyl 10 mg rectal suppository 10 mg CO DAILY PRN constipation 08/23/23 09/22/23 Rx #30 ea levetiracetam 250 mg tablet 250 mg PO BID 90 days #180 tabs 08/30/23 09/22/23 Rx (Keppra) phenytoin sodium extended 100 mg 200 mg (2 x 100 mg) PO BID 90 days 08/30/23 09/22/23 Rx capsule (Dilantin Extended) #360 caps sennosides 8.6 mg-docusate sodium 1 tab PO BID #60 tabs 09/21/23 09/22/23 Rx 50 mg tablet (Senokot-S) Patient History Medical History Seizure disorder GERD (gastroesophageal reflux disease) Acute metabolic encephalopathy Head injury Fall Acute alteration in mental status Elevated lactic acid level Weakness AMS (altered mental status) DMII (diabetes mellitus, type 2) HSV (herpes simplex virus) anogenital infection Complex partial seizure Depression with anxiety Heart murmur Onychomycosis Hypertension Schizophrenia Surgical History History of colonoscopy Family History Mother Diabetes Other Seizures Social History (Reviewed 09/22/23 @ 16:55 by YOUNG Staton Smoking Status: Never smoker Hx Alcohol Use: No Hx Substance Use: No Preferred Language: French Communication Ability: Effective Communication Ability Comment: Intellectual Disability Visual Impairment: No Limitations Hearing Ability: Normal Php Mysql Web Developer Required: No Beliefs That Will Affect Care: None marital status: Single Current Living Situation: Other Current Living Situation Comment: nursing home current occupational status: disabled Other Information That Helps Us Care for You: No Feels Safe at Home: Yes Safety Concerns: Feels Safe At This Time Assistive Devices: Walker and Wheelchair Review of Systems Review of Systems: Unobtainable due to cognitive status Physical Exam Musculoskeletal: Exam focused on left lower extremity: Patient is able to follow commands with regards to toe range of motion, ankle range of motion and knee flexion and extension. She is able to independently straight leg raise. She can flex her left knee to 110 degrees comfortably. Trace effusion to the left knee. Ecchymosis on the anterior proximal tibia. No edema of the left leg. Calf is supple nontender. Nontender throughout the left knee, hip or lower leg or ankle. Dorsalis pedis pulses 1+. Sensation exam unobtainable due to cognitive status. Results & Data Vital Signs (Past 12 Hours) Vital Signs Temp Pulse Pulse Resp BP Pulse Ox O2 Del Method 09/23/23 11:32 36.9 C 69 18 111/72 93 Room Air 09/23/23 07:45 36.7 C 79 17 133/79 98 Room Air 09/23/23 07:27 83 09/23/23 03:32 36.5 C 77 20 116/73 96 Room Air Laboratory Results 09/23/23 09/23/23 09/23/23 Range/Units 12:22 08:07 07:25 WBC 4.53 L (4.8-10.8) K/ul RBC 3.85 L (4.20-5.40) M/uL Hgb 11.9 L (12.0-16.0) g/dl Hct 35.9 L (37.0-47.0) % MCV 93.2 (80.0-100.0) fL MCH 30.9 (25.0-34.0) pg MCHC 33.1 (32.0-36.0) g/dL RDW Std Deviation 49.8 H (36.4-46.3) fL RDW Coeff of Liliana 14.7 H (11.5-14.5) % Plt Count 142 (130-400) K/uL MPV 11.4 (9.4-12.4) fL Sodium 142 (136-145) mmol/L Potassium 4.2 (3.5-5.1) mmol/L Chloride 108 H (98-107) mmol/L Carbon Dioxide 26 (21-32) mmol/L Anion Gap 8 (3-11) BUN 10 (6-23) mg/dl Creatinine 0.45 L (0.6-1.2) mg/dl Est Cr Clr Drug Dosing 117.7 ml/min Est GFR ( Amer) 125.3 ml/min Est GFR (Non-Af Amer) 108.1 ml/min BUN/Creatinine Ratio 22.2 H (10-20) Glucose 121 H (70-99(Fasting)) mg/dl POC Glucose 121 H 109 H (70-99) mg/dl Estimat Average Glucose 105 mg/dl Hemoglobin A1c 5.3 (4.5-5.6) % Calcium 8.4 L (8.6-10.3) mg/dl 09/22/23 Range/Units 23:21 WBC (4.8-10.8) K/ul RBC (4.20-5.40) M/uL Hgb (12.0-16.0) g/dl Hct (37.0-47.0) % MCV (80.0-100.0) fL MCH (25.0-34.0) pg MCHC (32.0-36.0) g/dL RDW Std Deviation (36.4-46.3) fL RDW Coeff of Liliana (11.5-14.5) % Plt Count (130-400) K/uL MPV (9.4-12.4) fL Sodium (136-145) mmol/L Potassium (3.5-5.1) mmol/L Chloride (98-107) mmol/L Carbon Dioxide (21-32) mmol/L Anion Gap (3-11) BUN (6-23) mg/dl Creatinine (0.6-1.2) mg/dl Est Cr Clr Drug Dosing ml/min Est GFR ( Amer) ml/min Est GFR (Non-Af Amer) ml/min BUN/Creatinine Ratio (10-20) Glucose (70-99(Fasting)) mg/dl POC Glucose 96 (70-99) mg/dl Estimat Average Glucose mg/dl Hemoglobin A1c (4.5-5.6) % Calcium (8.6-10.3) mg/dl Diagnostic Findings XR knee LT 3V CLINICAL HISTORY: Left knee pain. COMPARISON STUDY: Left knee 09/15/2023. FINDINGS: There is intra-articular fracture involving the left medial tibial plateau. This demonstrates up to 2 mm of depression. A moderate lipohemarthrosis is noted. No dislocation. The distal femur is intact. Irregularity at the medial patella may be chronic. IMPRESSION: Slightly depressed left medial tibial plateau fracture with an associated lipohemarthrosis. Exam(s): CT LEFT KNEE Without Contrast EXAM: CT Left Lower Extremity Without Intravenous Contrast, Knee CLINICAL HISTORY: Reason for exam: fracture. TECHNIQUE: Axial computed tomography images of the left knee without intravenous contrast. CTDI is 19.67 mGy and DLP is 318.42 mGy-cm. Automated exposure control was utilized for the study. A dose lowering technique was utilized adhering to the principles of ALARA. COMPARISON: Left knee x-ray dated 09/22/23 FINDINGS: Bones/joints: Left medial tibial plateau fracture with 2 mm depression. Fracture lines extend to the base of the tibial spines. Moderate lipohemarthrosis. No dislocation. Soft tissues: Mild associated soft tissue swelling. IMPRESSION: 1. Left medial tibial plateau fracture with 2 mm depression. Fracture lines extend to the base of the tibial spines. 2. Moderate lipohemarthrosis.
--- NOTE | 2023-09-23 17:19 | Hospitalist Progress Note ---
Date of Service September 23, 2023 Assessment & Plan (1) Weakness: (2) Lethargy: (3) Constipation in female: (4) Ambulatory dysfunction: (5) Tibial plateau fracture, left: (6) Intellectual delay: (7) DMII (diabetes mellitus, type 2): (8) Schizophrenia: (9) Seizure disorder: Plan Patient is 63 year old female with a PMH of seizures, ambulatory dysfunction, cognitive dysfunction, schizophrenia, DM II, and other medical problems presents from [facility] with c/o generalized weakness. Weakness Lethargy Patient recently admitted and discharged yesterday, 09/20 with similar complaints as well as a UTI She completed course of antibiotic this morning She does not have any infectious signs or symptoms ED ordered MRI, will await results She is more drowsy and less interactive today Will treat constipation Recent phenytoin level was acceptable Discussed with the psychiatrist and her clozapine has been decreased to 300 mg daily Will get PT and OT evaluation and will need placement Ambulatory dysfunction Recent fall, prior to previous admission Left tibial plateau fracture PT/OT Knee brace Consult Ortho-appreciate input and recommendation for conservative management Likely discharge tomorrow Constipation bisacodyl x 1 now miralax BID KUB petr.m. pt suffers from chronic constipation, need to establish good bowel regimen psych feels related to clozapine and will need outpt psych follow up Discussed with the psychiatrist and clozapine has been decreased to 300 mg a day Will provide better regimen for constipation Hyperglycemia H/O DM II HbA1c 5.3 , will repeat a1c in a.m. hold p.o. medications per previous admission: "Blood sugars have been running high at personal care facility" Continue insulin while hospitalized Monitor blood glucose levels Per Previous admission: "Discussed with certified adaptive physical educator--Given A1c likely unreliable, [facility], plan to continue outpatient diabetic regimen on discharge" Hyperlipidemia on statin Seizure disorder Paranoid schizophrenia with auditory hallucinations Intellectual impairment --Dilantin level 7.4 Continue home medications, appears stable await MRI results-negative DVT Px: Lovenox SQ Code Status: Full code PCP: Delmy Jacobsen Dispo: PT/OT, pt likely to need rehab Admission and Anticipated Discharge Date Admission Date: September 22, 2023 Subjective 09/23/2023 The patient was seen and examined in medical telemetry unit She has been lethargic Communicated reasonably with me Denies any significant symptoms Review of Systems Review of Systems: Unobtainable due to cognitive status Physical Exam Physical Exam: Lying in bed without any acute distress Constitutional: + ill appearing and average body habitus Eyes: PERRL, conjunctivae normal, anicteric sclerae ENMT: external ear and nose normal, oropharynx normal Neck: trachea midline, no thyromegaly Respiratory: no respiratory distress Auscultation: + diminished lung sounds and + crackles (Minimal bibasilar crackles) Cardiovascular: Rate/Rhythm: regular rate and regular rhythm; not tachycardic Heart Sounds: normal S1 and normal S2; no murmur Extremities: no edema Gastrointestinal (Abdomen): Inspection/Auscultation: normal bowel sounds; abdomen not distended Percussion/Palpation: abdomen soft; abdomen nontender Musculoskeletal: Pain with movement of the left knee joint Neurologic: Intellectual delay with history of schizophrenia Lymphatic: no cervical or axillary lymphadenopathy Results & Data Results & Data Vital Signs (Past 12 Hours) Vital Signs Temp Pulse Pulse Resp BP Pulse Ox O2 Del Method 09/23/23 15:57 36.9 C 89 17 119/75 98 Room Air 09/23/23 15:48 93 H 09/23/23 11:32 36.9 C 69 18 111/72 93 Room Air 09/23/23 07:45 36.7 C 79 17 133/79 98 Room Air 09/23/23 07:27 83 Laboratory Results Short CBC 09/23/23 Range/Units 07:25 WBC 4.53 L (4.8-10.8) K/ul Hgb 11.9 L (12.0-16.0) g/dl Hct 35.9 L (37.0-47.0) % Plt Count 142 (130-400) K/uL BMP 09/23/23 07:25 Sodium 142 Potassium 4.2 Chloride 108 H Carbon Dioxide 26 BUN 10 Creatinine 0.45 L Glucose 121 H Calcium 8.4 L Medications Administered Current Inpatient Medications Acetaminophen (Acetaminophen 325 Mg Tab) 650 mg PO Q4H PRN PRN Reason: Pain or Fever Stop: 10/22/23 22:24 Al Hydrox/Mg Hydrox/Simethicone (Aluminum/Magnesium Susp 30 Ml Udc) 15 ml PO Q4H PRN PRN Reason: Dyspepsia Stop: 10/22/23 22:24 Albuterol (Albuterol Hfa 8 Gm Inhaler) 2 puffs INH QIDR PRN PRN Reason: shortness of breath or wheezin Stop: 10/22/23 22:24 Atorvastatin Calcium (Atorvastatin 40 Mg Tab) 40 mg PO HS [facility] Stop: 10/22/23 22:24 Last Admin: 09/22/23 23:27 Dose: 40 mg Clozapine (Clozapine 100 Mg Tab) 300 mg PO DAILY@1999 [facility] Stop: 10/23/23 19:59 Dextrose (Dextrose 50% 50 Ml Syringe) 25 - 50 ml IV UD PRN; Protocol PRN Reason: Hypoglycemia Protocol Stop: 10/22/23 22:24 Enoxaparin Sodium (Enoxaparin Inj 40 Mg/0.4 Ml Syr) 40 mg SQ HS [facility] Stop: 10/22/23 22:24 Last Admin: 09/22/23 23:27 Dose: 40 mg Famotidine (Famotidine 40 Mg Tablet) 40 mg PO HS [facility] Stop: 10/22/23 22:24 Last Admin: 09/22/23 23:27 Dose: 40 mg Fluticasone Propionate (Fluticasone Propionate Na Spr 16 Gm Btl) 2 sprays NA QPM [facility] Stop: 10/22/23 22:24 Last Admin: 09/22/23 23:27 Dose: 2 sprays Glucagon (Glucagon For Inj 1 Mg Vial) 1 mg SQ UD PRN; Protocol PRN Reason: Hypoglycemia Protocol Stop: 10/22/23 22:24 Glucose (Glucose 40% Gel 15 Gm Tube) 15 - 30 gm PO UD PRN; Protocol PRN Reason: Hypoglycemia Protocol Stop: 10/22/23 22:24 Glucose (Glucose 10 Tab/Tube) 4 - 8 tab PO UD PRN; Protocol PRN Reason: Hypoglycemia Treatment Stop: 10/22/23 22:24 Insulin Aspart (Insulin Aspart Per Unit Charge) 0 units SC ACHS [facility] Stop: 10/22/23 22:24 Last Admin: 09/23/23 12:26 Dose: Not Given Insulin Glargine (Lantus Per Unit Charge) 0 - 8 units SQ DAILY [facility] Stop: 10/22/23 22:24 Last Admin: 09/23/23 07:54 Dose: Not Given Levetiracetam (Levetiracetam 250 Mg Tab) 250 mg PO BID [facility] Stop: 10/22/23 22:24 Last Admin: 09/23/23 07:52 Dose: 250 mg Magnesium Hydroxide (Magnesium Hydroxide Susp 30 Ml Udc) 30 ml PO Q12H PRN PRN Reason: Constipation Stop: 10/22/23 22:24 Miscellaneous (Carbohydrates For Hypoglycemia ) 15 - 30 gm PO UD PRN PRN Reason: Hypoglycemia Protocol Stop: 10/22/23 22:24 Multivitamins/Minerals (Cerovite Adv Formula Tab) 1 tab PO QAM [facility] Stop: 10/23/23 08:59 Last Admin: 09/23/23 07:53 Dose: 1 tab Ondansetron HCl (Ondansetron Inj 2 Mg/Ml 2 Ml Vial) 4 mg IV Q6H PRN PRN Reason: Nausea Stop: 10/22/23 22:24 Phenytoin Sodium (Phenytoin Sodium Er 100 Mg Cap) 200 mg PO BID [facility] Stop: 10/22/23 22:24 Last Admin: 09/23/23 07:52 Dose: 200 mg Polyethylene Glycol (Polyethylene (Miralax) 17 Gm Pack) 17 gm PO BID [facility] Stop: 10/22/23 22:24 Last Admin: 09/23/23 07:56 Dose: Not Given Senna/Docusate Sodium (Docusate Sodium/Senna 50/8.6mg Tab) 1 tab PO BID [facility] Stop: 10/22/23 22:24 Last Admin: 09/23/23 07:55 Dose: Not Given Valacyclovir HCl (Valacyclovir Hcl 500 Mg Tablet) 500 mg PO DAILY [facility] Stop: 10/23/23 08:59 Last Admin: 09/23/23 07:53 Dose: 500 mg (7) DMII (diabetes mellitus, type 2) Diabetes mellitus usp insulin use: without buttermaker continuous churn use Diabetes mellitus complication status: with other specified complication Qualified Code(s): E11.69 - Type 2 diabetes mellitus with other specified complication (8) Schizophrenia Schizophrenia type: unspecified Qualified Code(s): F20.9 - Schizophrenia, unspecified
[2023-09-23] MEDS: cloZAPine 100 MG TAB PO SCH (21:30)
--- NOTE | 2023-09-24 05:48 | Electrocardiogram Report ---
Test Reason : Blood Pressure : / mmHG Vent. Rate : 101 BPM Atrial Rate : 101 BPM P-R Int : 130 ms QRS Dur : 088 ms QT Int : 344 ms P-R-T Axes : 038 -19 023 degrees QTc Int : 446 ms Sinus tachycardia Otherwise normal ECG When compared with ECG of 15-SEP-2023 15:54, Borderline criteria for Anterior infarct are no longer Present Confirmed by Craig Michaud ([id number]) on 09/24/2023 5:48:38 AM Referred By: Confirmed By:Craig Michaud
[2023-09-24 08:49] LABS: BUN Creatinine Ratio 27.8 (10-20); Calcium 8.7 mg/dl (8.6-10.3); Creatinine Clr Calc Pharmacy 95.9 ml/min; Est GFR (Non-African American) 101.8 ml/min; Potassium 4.1 mmol/L (3.5-5.1)
--- NOTE | 2023-09-24 09:36 | Orthopedic Progress Note ---
Date of Service September 24, 2023 Assessment & Plan (1) Tibial plateau fracture, left: Plan: Patient has a minimally depressed medial tibial plateau fracture of her left knee. At this time we will plan to treat nonoperatively. She needs to be nonweightbearing of her left lower extremity with the knee immobilizer in place at all times. She can do gentle range of motion exercises of her ankle as tolerated. Needs to use a walker to assist with ambulation but due to her cognitive status she may need to be out of bed for transfers to a wheelchair for the next 8 to 12 weeks. She can ice the left knee as needed. They cannot do the knee immobilizer in order to ice. Would recommend follow-up with Dr. Beaulieu in 14 to 21 days for repeat x-ray of the left knee and evaluation. Okay from orthopedic standpoint for discharge when medically stable. Tylenol and/or ibuprofen as needed for pain. Encouraged elevation. An Dewey bandage was applied to her left leg from her foot to her hip for compression. Can reapply this as necessary. Thank you for this consultation. Admission and Anticipated Discharge Date Admission Date: September 22, 2023 Subjective This 63-year-old female seen today for follow-up of a left tibial plateau fracture. Patient currently has an immobilizer on her left lower extremity with an Dewey bandage underneath. I did remove the immobilizer and palpated over the fracture site and patient did not elicit any type of pain response. Otherwise she was essentially nonverbal during today's evaluation and I was unable to perform a complete review of systems. Review of Systems Review of Systems: Unobtainable due to cognitive status Physical Exam Physical Exam: left knee: She tolerated passive knee extension to 0 degrees and flexion near 100 degrees. She was able to follow commands and perform an active straight leg raise test and actively dorsi and plantarflex her foot. When I asked if she could feel me touching her toes she responded by shaking her head yes. Results & Data Vital Signs (Past 12 Hours) Vital Signs Temp Pulse Pulse Resp BP Pulse Ox Pulse Ox 09/24/23 07:42 37.3 C 98 H 17 107/66 95 09/24/23 07:19 94 H 09/24/23 03:17 37.1 C 88 16 112/68 97 09/23/23 23:53 80 09/23/23 22:25 97 09/23/23 22:01 37.2 C 81 16 108/67 94 O2 Del Method O2 Del Method 09/24/23 07:42 Room Air 09/24/23 07:19 09/24/23 03:17 Room Air 09/23/23 23:53 09/23/23 22:25 Room Air 09/23/23 22:01 Room Air Diagnostic Findings Laboratory Results WBC 4.53 K/ul (4.8-10.8) L 09/23/23 07:25 RBC 3.85 M/uL (4.20-5.40) L 09/23/23 07:25 Hgb 11.9 g/dl (12.0-16.0) L 09/23/23 07:25 Hct 35.9 % (37.0-47.0) L 09/23/23 07:25 MCV 93.2 fL (80.0-100.0) 09/23/23 07:25 MCH 30.9 pg (25.0-34.0) 09/23/23 07: MCHC 33.1 g/dL (32.0-36.0) 09/23/23 07:25 RDW Std Deviation 49.8 fL (36.4-46.3) H 09/23/23 07:25 RDW Coeff of Liliana 14.7 % (11.5-14.5) H 09/23/23 07:25 Plt Count 142 K/uL (130-400) 09/23/23 07:25 MPV 11.4 fL (9.4-12.4) 09/23/23 07:25 Immature Gran % (Auto) 0.6 % 09/22/23 10:11 Neut % (Auto) 82.8 % 09/22/23 10:11 Lymph % (Auto) 9.0 % 09/22/23 10:11 [place] % (Auto) 7.3 % 09/22/23 10:11 Eos % (Auto) 0.0 % 09/22/23 10:11 Baso % (Auto) 0.3 % 09/22/23 10:11 Neut # (Auto) 6.46 K/uL (1.40-6.50) 09/22/23 10:11 Lymph # (Auto) 0.70 K/uL (1.20-3.40) L 09/22/23 10:11 [place] # (Auto) 0.57 K/uL (0.11-0.59) 09/22/23 10:11 Eos # (Auto) 0.00 K/uL (0.00-0.50) 09/22/23 10:11 Baso # (Auto) 0.02 K/uL (0.00-0.20) 09/22/23 10:11 Immature Gran # (Auto) 0.05 K/uL (0.01-0.20) 09/22/23 10:11 PT 10.6 Seconds (9.0-12.0) 09/22/23 10:11 INR 1.0 (0.9-1.1) 09/22/23 10:11 APTT 24 Seconds (21-31) 09/22/23 10:11 PTT Ratio 0.9 09/22/23 10:11 Sodium 141 mmol/L (136-145) 09/24/23 07:20 Potassium 4.1 mmol/L (3.5-5.1) 09/24/23 07:20 Chloride 106 mmol/L (98-107) 09/24/23 07:20 Carbon Dioxide 20 mmol/L (21-32) L 09/24/23 07:20 Anion Gap 15 (3-11) H 09/24/23 07:20 BUN 15 mg/dl (6-23) 09/24/23 07:20 Creatinine 0.54 mg/dl (0.6-1.2) L 09/24/23 07:20 Est Cr Clr Drug Dosing 95.9 ml/min 09/24/23 07:20 Est GFR ( Amer) 118.0 ml/min 09/24/23 07:20 Est GFR (Non-Af Amer) 101.8 ml/min 09/24/23 07:20 BUN/Creatinine Ratio 27.8 (10-20) H 09/24/23 07:20 Glucose 78 mg/dl (70-99(Fasting)) 09/24/23 07:20 POC Glucose 77 mg/dl (70-99) 09/24/23 08:04 Estimat Average Glucose 105 mg/dl 09/23/23 07:25 Hemoglobin A1c 5.3 % (4.5-5.6) 09/23/23 07:25 Lactate 0.8 mmol/L (0.4-2.0) 09/22/23 10:35 Calcium 8.7 mg/dl (8.6-10.3) 09/24/23 07:20 Magnesium 2.0 mg/dl (1.7-2.4) 09/22/23 10:11 Total Bilirubin 0.5 mg/dl (0.2-1.0) 09/22/23 10:11 Direct Bilirubin 0.1 mg/dl (0-0.2) 09/22/23 10:11 AST 17 U/L (13-39) 09/22/23 10:11 ALT 30 U/L (7-52) 09/22/23 10:11 Alkaline Phosphatase 147 U/L (34-104) H 09/22/23 10:11 Ammonia 20.0 umol/L (18-72) 09/22/23 11:04 Troponin I High Sens 2.7 pg/ml (0-14) 09/22/23 10:11 Total Protein 7.2 gm/dl (6.0-8.3) 09/22/23 10:11 Albumin 4.0 gm/dl (3.4-5.0) 09/22/23 10:11 Procalcitonin 0.03 ng/ml (0-0.5) 09/22/23 10:11 Urine Color Dark Yellow 09/22/23 12:04 Urine Appearance Clear (Clear) 09/22/23 12:04 Urine pH 6.5 (4.5-7.5) 09/22/23 12:04 Ur Specific Hodges 1.014 (1.000-1.030) 09/22/23 12:04 Urine Protein Negative (Negative) 09/22/23 12:04 Urine Glucose (UA) 2+ (Negative) H 09/22/23 12:04 Urine Ketones Negative (Negative) 09/22/23 12:04 Urine Blood Negative (Negative) 09/22/23 12:04 Urine Nitrite Negative (Negative) 09/22/23 12:04 Urine Bilirubin Negative (Negative) 09/22/23 12:04 Urine Urobilinogen Negative (Negative) 09/22/23 12:04 Ur Leukocyte Esterase Negative (Negative) 09/22/23 12:04 Impressions Chest X-Ray 09/22/23 10:29 XR chest 1V portable CLINICAL HISTORY: Sepsis TECHNIQUE: Single frontal radiograph of the chest was obtained. Comparison: Comparison is made to chest radiograph 09/15/2023 FINDINGS: No lines and tubes are seen. The cardiomediastinal silhouette is normal. The lungs are clear. No evidence of pleural effusion or pneumothorax. IMPRESSION: No acute abnormalities and in particular no radiographic evidence of pneumonia. ACT 112: Negative or not required by law. Electronically signed by: Omari Ramirez M.D. 09/22/2023 11:[address] 09/22/23 12:10 CT head/brain wo con CLINICAL HISTORY: AMS Technique: Contiguous axial CT images of the head were acquired from the base of the skull to the vertex without intravenous contrast administration. Images were viewed in brain, subdural and bone windows. Automated dose lowering techniques a nd/or adjustment according to patient size were utilized for this exam. Comparison: Comparison is made to CT head 09/15/2023 Findings: Areas of decreased attenuation are present in the periventricular and subcortical white matter bilaterally consistent with small vessel ischemic disease. Generalized cerebral atrophy with commensurate enlargement of the ventricles, sulci, and cisterns is also present. There is no acute intracranial hemorrhage or evidence of acute territorial infarction. No shift of the midline structures, mass effect, or extra-axial abnormalities are shown. Atheroscleroti c calcifications are present in the intracranial segments of the internal carotid arteries. Imaged portions of the paranasal sinuses and mastoid air cells are clear. The orbits appear normal. There are no acute fractures of the calvaria or scalp swelling. Impression: No acute intracranial hemorrhage, no evidence of acute territorial infarction or other acute intracranial disease process. ACT 112: Negative or not required by law. Electronically signed by: Omari Ramirez M.D. 09/22/2023 12:52 PM Brain MRI 09/22/23 14:16 Brain MRI WITHOUT CONTRAST HISTORY: Altered mental status TECHNIQUE: Multiplanar multisequence MRI of the brain was performed without the use of contrast. COMPARISON STUDY: Head CT 09/22/2023. Brain MRI 05/18/2023. FINDINGS: There is no mass, hematoma, midline shift, or acute infarct. The paranasal sinuses are clear. The mastoid air cells are clear. Moderate enlargement of lateral ventricles, unchanged. This is out of proportion to sulcal atrophy and raises the possibility of normal pressure hydrocephalus. Scattered foci of T2 hyperintensity seen within the periventricular and subcortical white matter are nonspecific but suggestive of mild microvascular ischemic changes. The major vascular flow voids at the skull base are well- maintained. IMPRESSION: 1. No significant change compared to the prior study. 2. No acute infarct or intracranial hemorrhage. 3. Moderate enlargement of lateral ventricles, unchanged. This is out of proportion to sulcal atrophy and raises the possibility of normal pressure hydrocephalus. ACT 112: Negative or not required by law. Electronically signed by: Kendall Sanderson M.D. 09/22/2023 6:36 PM Knee X-Ray 09/22/23 14:16 XR knee LT 3V CLINICAL HISTORY: Left knee pain. COMPARISON STUDY: Left knee 09/15/2023. FINDINGS: There is intra-articular fracture involving the left medial tibial plateau. This demonstrates up to 2 mm of depression. A moderate lipohemarthrosis is noted. No dislocation. The distal femur is intact. Irregularity at the medial patella may be chronic. IMPRESSION: Slightly depressed left medial tibial plateau fracture with an associated lipohemarthrosis. ACT 112: Negative or not required by law. Electronically signed by: Kendall Sanderson M.D. 09/22/2023 3:[address] 09/22/23 19:23 Exam(s): CT LEFT KNEE Without Contrast EXAM: CT Left Lower Extremity Without Intravenous Contrast, Knee CLINICAL HISTORY: Reason for exam: fracture. TECHNIQUE: Axial computed tomography images of the left knee without intravenous contrast. CTDI is 19.67 mGy and DLP is 318.42 mGy-cm. Automated exposure control was utilized for the study. A dose lowering technique was utilized adhering to the principles of ALARA. COMPARISON: Left knee x-ray dated 09/22/23 FINDINGS: Bones/joints: Left medial tibial plateau fracture with 2 mm depression. Fracture lines extend to the base of the tibial spines. Moderate lipohemarthrosis. No dislocation. Soft tissues: Mild associated soft tissue swelling. IMPRESSION: 1. Left medial tibial plateau fracture with 2 mm depression. Fracture lines extend to the base of the tibial spines. 2. Moderate lipohemarthrosis. Electronically signed by: Javier Khoury M.D. 09/22/23 22:04 PM KUB X-Ray 09/23/23 08:00 KUB CLINICAL HISTORY: Constipation. FINDINGS: 2 AP, portable, supine abdominal radiographs are compared to study dated 09/22/2023 and correlated with abdominal CT dated 09/15/2023. There is mild gaseous distention of the bowel loops with no radiographic evidence of high- grade obstruction. Moderate constipation is observed. No evidence of intraperitoneal free air is seen on these supine images. There are no abnormal abdominal calcifications. Phleboliths are seen in the pelvis. The skeletal structures are osteopenic. There is moderate to advanced lumbosacral s pondylosis. Postsurgical change seen in the right proximal femur. There are chronic/healed bilateral rib fractures. IMPRESSION: 1. Moderate constipation. 2. There is mild gaseous distention of the bowel loops with no radiographic evidence of high-grade obstruction. Electronically signed by: Carlos Savage M.D. 09/23/2023 11:45 AM
--- NOTE | 2023-09-24 12:50 | Hospitalist Progress Note ---
Date of Service September 24, 2023 Assessment & Plan (1) Weakness: (2) Lethargy: (3) Constipation in female: (4) Ambulatory dysfunction: (5) Tibial plateau fracture, left: (6) Intellectual delay: (7) DMII (diabetes mellitus, type 2): (8) Schizophrenia: (9) Seizure disorder: Plan Patient is 63 year old female with a PMH of seizures, ambulatory dysfunction, cognitive dysfunction, schizophrenia, DM II, and other medical problems presents from [facility] with c/o generalized weakness. Weakness Lethargy Patient recently admitted and discharged yesterday, 09/20 with similar complaints as well as a UTI She completed course of antibiotic this morning She does not have any infectious signs or symptoms ED ordered MRI, will await results She is more drowsy and less interactive today Will treat constipation Recent phenytoin level was acceptable Discussed with the psychiatrist and her clozapine has been decreased to 300 mg daily Will get PT and OT evaluation and will need placement Will be going to [facility] this afternoon Lethargy has improved Mental status back to baseline Ambulatory dysfunction Recent fall, prior to previous admission Left tibial plateau fracture PT/OT Knee brace Consult Ortho-appreciate input and recommendation for conservative management Likely discharge today to [facility] Constipation bisacodyl x 1 now miralax BID KUB petr.m. pt suffers from chronic constipation, need to establish good bowel regimen psych feels related to clozapine and will need outpt psych follow up Discussed with the psychiatrist and clozapine has been decreased to 300 mg a day Will provide better regimen for constipation Has been moving bowels regularly and will need to continue laxatives Hyperglycemia H/O DM II HbA1c 5.3 , will repeat a1c in a.m. hold p.o. medications per previous admission: "Blood sugars have been running high at personal care facility" Continue insulin while hospitalized Monitor blood glucose levels Per Previous admission: "Discussed with early childhood special educator--Given A1c likely unreliable, given variable blood glucose levels at shelter, plan to continue outpatient diabetic regimen on discharge" Hyperlipidemia on statin Seizure disorder Paranoid schizophrenia with auditory hallucinations Intellectual impairment --Dilantin level 7.4 Continue home medications, appears stable await MRI results-negative DVT Px: Lovenox SQ Code Status: Full code PCP: August Ann-Marie Dispo: PT/OT, pt likely to need rehab Will be discharged to [facility] this afternoon Admission and Anticipated Discharge Date Admission Date: September 22, 2023 Subjective 09/23/2023 The patient was seen and examined in medical telemetry unit She has been lethargic Communicated reasonably with me Denies any significant symptoms 09/24/2023 The patient was seen and examined in medical telemetry unit She has been back to her baseline Denies any significant pain Has been moving bowel regularly Review of Systems Review of Systems: Unobtainable due to cognitive status Physical Exam Physical Exam: Lying in bed without any acute distress Constitutional: + ill appearing and average body habitus Eyes: PERRL, conjunctivae normal, anicteric sclerae ENMT: external ear and nose normal, oropharynx normal Neck: trachea midline, no thyromegaly Respiratory: no respiratory distress Auscultation: + diminished lung sounds and + crackles (Minimal bibasilar crackles) Cardiovascular: Rate/Rhythm: regular rate and regular rhythm; not tachycardic Heart Sounds: normal S1 and normal S2; no murmur Extremities: no edema Gastrointestinal (Abdomen): Inspection/Auscultation: normal bowel sounds; abdomen not distended Percussion/Palpation: abdomen soft; abdomen nontender Musculoskeletal: Left knee in brace Neurologic: Alert and awake. Minimally communicative. Intellectual disability. Moving all limbs with generalized weakness Lymphatic: no cervical or axillary lymphadenopathy Results & Data Results & Data Vital Signs (Past 12 Hours) Vital Signs Temp Pulse Pulse Resp BP Pulse Ox O2 Del Method 09/24/23 11:40 36.9 C 100 H 17 120/71 95 Room Air 09/24/23 07:42 37.3 C 98 H 17 107/66 95 Room Air 09/24/23 07:19 94 H 09/24/23 03:17 37.1 C 88 16 112/68 97 Room Air Laboratory Results [facility] 09/24/23 07:20 Sodium 141 Potassium 4.1 Chloride 106 Carbon Dioxide 20 L BUN 15 Creatinine 0.54 L Glucose 78 Calcium 8.7 Medications Administered Current Inpatient Medications Acetaminophen (Acetaminophen 325 Mg Tab) 650 mg PO Q4H PRN PRN Reason: Pain or Fever Stop: 10/22/23 22:24 Al Hydrox/Mg Hydrox/Simethicone (Aluminum/Magnesium Susp 30 Ml Udc) 15 ml PO Q4H PRN PRN Reason: Dyspepsia Stop: 10/22/23 22:24 Albuterol (Albuterol Hfa 8 Gm Inhaler) 2 puffs INH QIDR PRN PRN Reason: shortness of breath or wheezin Stop: 10/22/23 22:24 Atorvastatin Calcium (Atorvastatin 40 Mg Tab) 40 mg PO HS [facility] Stop: 10/22/23 22:24 Last Admin: 09/23/23 21:29 Dose: 40 mg Clozapine (Clozapine 100 Mg Tab) 300 mg PO DAILY@1999 [facility] Stop: 10/23/23 19:59 Last Admin: 09/23/23 21:30 Dose: 300 mg Dextrose (Dextrose 50% 50 Ml Syringe) 25 - 50 ml IV UD PRN; Protocol PRN Reason: Hypoglycemia Protocol Stop: 10/22/23 22:24 Enoxaparin Sodium (Enoxaparin Inj 40 Mg/0.4 Ml Syr) 40 mg SQ HS [facility] Stop: 10/22/23 22:24 Last Admin: 09/23/23 21:30 Dose: 40 mg Famotidine (Famotidine 40 Mg Tablet) 40 mg PO HS [facility] Stop: 10/22/23 22:24 Last Admin: 09/23/23 21:29 Dose: 40 mg Fluticasone Propionate (Fluticasone Propionate Na Spr 16 Gm Btl) 2 sprays NA QPM [facility] Stop: 10/22/23 22:24 Last Admin: 09/23/23 21:30 Dose: 2 sprays Glucagon (Glucagon For Inj 1 Mg Vial) 1 mg SQ UD PRN; Protocol PRN Reason: Hypoglycemia Protocol Stop: 10/22/23 22:24 Glucose (Glucose 40% Gel 15 Gm Tube) 15 - 30 gm PO UD PRN; Protocol PRN Reason: Hypoglycemia Protocol Stop: 10/22/23 22:24 Glucose (Glucose 10 Tab/Tube) 4 - 8 tab PO UD PRN; Protocol PRN Reason: Hypoglycemia Treatment Stop: 10/22/23 22:24 Insulin Aspart (Insulin Aspart Per Unit Charge) 0 units SC ACHS [facility] Stop: 10/22/23 22:24 Last Admin: 09/24/23 12:28 Dose: 6 units Insulin Glargine (Lantus Per Unit Charge) 0 - 8 units SQ DAILY [facility] Stop: 10/22/23 22:24 Last Admin: 09/24/23 08:10 Dose: Not Given Levetiracetam (Levetiracetam 250 Mg Tab) 250 mg PO BID [facility] Stop: 10/22/23 22:24 Last Admin: 09/24/23 08:08 Dose: 250 mg Magnesium Hydroxide (Magnesium Hydroxide Susp 30 Ml Udc) 30 ml PO Q12H PRN PRN Reason: Constipation Stop: 10/22/23 22:24 Miscellaneous (Carbohydrates For Hypoglycemia ) 15 - 30 gm PO UD PRN PRN Reason: Hypoglycemia Protocol Stop: 10/22/23 22:24 Multivitamins/Minerals (Cerovite Adv Formula Tab) 1 tab PO QAM [facility] Stop: 10/23/23 08:59 Last Admin: 09/24/23 08:08 Dose: 1 tab Ondansetron HCl (Ondansetron Inj 2 Mg/Ml 2 Ml Vial) 4 mg IV Q6H PRN PRN Reason: Nausea Stop: 10/22/23 22:24 Phenytoin Sodium (Phenytoin Sodium Er 100 Mg Cap) 200 mg PO BID [facility] Stop: 10/22/23 22:24 Last Admin: 09/24/23 08:08 Dose: 200 mg Polyethylene Glycol (Polyethylene (Miralax) 17 Gm Pack) 17 gm PO BID [facility] Stop: 10/22/23 22:24 Last Admin: 09/24/23 08:08 Dose: 17 gm Senna/Docusate Sodium (Docusate Sodium/Senna 50/8.6mg Tab) 1 tab PO BID [facility] Stop: 10/22/23 22:24 Last Admin: 09/24/23 08:08 Dose: 1 tab Valacyclovir HCl (Valacyclovir Hcl 500 Mg Tablet) 500 mg PO DAILY [facility] Stop: 10/23/23 08:59 Last Admin: 09/24/23 08:08 Dose: 500 mg (5) Tibial plateau fracture, left Encounter type: initial encounter Fracture type: closed Qualified Code(s): S82.142A - Displaced bicondylar fracture of left tibia, initial encounter for closed fracture (7) DMII (diabetes mellitus, type 2) Diabetes mellitus buttermaker continuous churn insulin use: without buttermaker continuous churn use Diabetes mellitus complication status: with other specified complication Qualified Code(s): E11.69 - Type 2 diabetes mellitus with other specified complication (8) Schizophrenia Schizophrenia type: unspecified Qualified Code(s): F20.9 - Schizophrenia, unspecified
--- NOTE | 2023-09-24 17:33 | Discharge Summary ---
Date of Service September 24, 2023 Admission HPI Per Admitting Provider Patient is 63 year old female with a PMH of seizures, ambulatory dysfunction, cognitive dysfunction, schizophrenia, DM II, and other medical problems presents from [facility] with c/o generalized weakness. Of significance patient was recently hospitalized 09/15 to 09/20. She was hospitalized secondary to generalized weakness, recurrent falls and UTI. Her urine culture grew E. coli. She was initially treated with IV Rocephin and then transition to cefdinir. Her hospital course was complicated with constipation. It was felt this was secondary to her closet pain. She was placed on bowel regimen and psychiatry recommended follow-up as outpatient. She was seen and evaluated by PT and OT. It was recommended that she possibly could return back to senior care. Upon discharge she still requires a lot of assistance. The locker room manager of the senior care is at bedside who provides history. Last night she was alert and talkative. Today she has been very drowsy, lethargic and still continues difficulty walking. She did not have a BM since discharge. Staff gave a suppository last evening w/o result. There is no reported nausea or vomiting. She was able to take her meds today. She completed the course of antibiotics this morning. Admission Exam Per Admitting Provider GENERAL APPEARANCE: AxOx1, somnolent, awakens to follow commands, then drifts to sleep HEENT: NC, AT. MMM. EOMI, clear conjunctiva NECK: Supple without lymphadenopathy. No stiffness or restricted ROM. HEART: Normal rate and regular rhythm, normal S1/S1, no m/r/g LUNGS: CTAB, moving air well. No crackles or wheezes are heard. ABDOMEN: Soft, nontender, mild distention, no grimacing on exam +BS BACK: No CVAT, no obvious deformity. EXTREMITIES: Without cyanosis, clubbing or edema.trace bruising of right knee = NEUROLOGICAL: Grossly nonfocal. moving all 4 extremities. CN not formally tested but appear grossly intact. Skin: Warm and dry without any rash. Principal Diagnosis Left knee tibial plateau fracture, schizophrenia, intellectual impairment, constipation Discharge Exam Lying in bed without any acute distress Constitutional + ill appearing and average body habitus Eyes PERRL, conjunctivae normal, anicteric sclerae ENMT external ear and nose normal, oropharynx normal Neck trachea midline, no thyromegaly Respiratory no respiratory distress Auscultation: + diminished lung sounds and + crackles (Minimal bibasilar crackles) Cardiovascular Rate/Rhythm: regular rate and regular rhythm; not tachycardic Heart Sounds: normal S1 and normal S2; no murmur Extremities: no edema Gastrointestinal (Abdomen) Inspection/Auscultation: normal bowel sounds; abdomen not distended Percussion/Palpation: abdomen soft; abdomen nontender Lymphatic no cervical or axillary lymphadenopathy Discharge Data Allergies Allergy/AdvReac Type Severity Reaction Status Date / Time divalproex sodium Allergy Unknown Unknown Verified 09/15/23 22:03 [From Depakote] salicylates Allergy Unknown Unknown Verified 09/15/23 22:03 valproic acid Allergy Unknown Unknown Verified 09/15/23 22:03 aspirin AdvReac Severe STOMACH Verified 09/15/23 22:03 ULCER BLEEDING Consultations 09/22/23 16:52 ED Decision to Admit Stat 09/22/23 22:25 Consult Orthopedic Surgery Routine Ordered Studies 09/22/23 12:10 CT head/brain wo con Stat 09/22/23 14:16 MR brain wo con Stat 09/22/23 19:23 CT knee LT wo con Stat Hospital Course (1) Weakness: (2) Lethargy: (3) Constipation in female: (4) Ambulatory dysfunction: (5) Tibial plateau fracture, left: (6) Intellectual delay: (7) DMII (diabetes mellitus, type 2): (8) Schizophrenia: (9) Seizure disorder: Plan Patient is 63 year old female with a PMH of seizures, ambulatory dysfunction, cognitive dysfunction, schizophrenia, DM II, and other medical problems presents from [facility] with c/o generalized weakness. Weakness Lethargy Patient recently admitted and discharged yesterday, 09/20 with similar complaints as well as a UTI She completed course of antibiotic this morning She does not have any infectious signs or symptoms ED ordered MRI, will await results She is more drowsy and less interactive today Will treat constipation Recent phenytoin level was acceptable Discussed with the psychiatrist and her clozapine has been decreased to 300 mg daily Will get PT and OT evaluation and will need placement Will be going to [facility] this afternoon Lethargy has improved Mental status back to baseline Ambulatory dysfunction Recent fall, prior to previous admission Left tibial plateau fracture PT/OT Knee brace Consult Ortho-appreciate input and recommendation for conservative management Likely discharge today to [facility] Constipation bisacodyl x 1 now miralax BID KUB petr.m. pt suffers from chronic constipation, need to establish good bowel regimen psych feels related to clozapine and will need outpt psych follow up Discussed with the psychiatrist and clozapine has been decreased to 300 mg a day Will provide better regimen for constipation Has been moving bowels regularly and will need to continue laxatives Hyperglycemia H/O DM II HbA1c 5.3 , will repeat a1c in a.m. hold p.o. medications per previous admission: "Blood sugars have been running high at personal care facility" Continue insulin while hospitalized Monitor blood glucose levels Per Previous admission: "Discussed with music video producer--Given A1c likely unreliable, given variable blood glucose levels at senior care, plan to continue outpatient diabetic regimen on discharge" Hyperlipidemia on statin Seizure disorder Paranoid schizophrenia with auditory hallucinations Intellectual impairment --Dilantin level 7.4 Continue home medications, appears stable await MRI results-negative DVT Px: Lovenox SQ Code Status: Full code PCP: Delmy Jacobsen Dispo: PT/OT, pt likely to need rehab Will be discharged to [facility] this afternoon Total Time Total Time Spent Total Time Spent (In Minutes): 45 minutes Discharge Plan Discharge Items Patient Disposition: Transfer Inpatient Rehab Fac Reason For Visit: LETHARGY Discharge Diagnosis: Left knee tibial plateau fracture, schizophrenia, intellectual impairment, constipation Condition on Discharge: Fair Activity: Per Instructions section Weightbearing: Left non-weightbearing Weightbearing Comment: at all times Non-emergency contact: Primary Care Provider Call non-emergency contact if: you have any medication questions and your symptoms worsen Follow-up/Referrals: Delmy Jacobsen PA-C [Primary Care Provider] - (Please make an appointment with your PCP within 7 days following discharge from the facility) Ravi Beaulieu MD [Surgeon] - (14-21 days; call for appointment if not scheduled) Diet: Carb Consistent or DM2 Addtl Attending Provider Instructions: Please take precautions to avoid falls Take your medications as advised Your clozapine has been decreased to 300 mg once a day Take laxatives regularly to have bowel movement Lovenox for DVT prophylaxis Addtl Joint Setter Provider Instructions: Orthopedic Instructions: - Nonweightbearing left lower extremity at all times. - Knee immobilizer on left leg at all times. May remove to bathe and to check skin. - Elevate left leg as needed for pain and swelling. - Dewey bandage full-length of the leg or thigh-high Norman stocking for compression underneath the knee immobilizer. - May do ankle and hip range of motion as tolerated. - Out of bed with assistance of walker or transfers only with wheelchair. - Ice to left knee as needed for pain. - Tylenol and/or ibuprofen as needed for pain or swelling. - Follow-up with Dr. Beaulieu in 2 to 3 weeks. Call [phone] to schedule/reschedule appointment. Pending Studies at Discharge: No Stand-Alone Forms: My [facility] Skilled Items Patient informed of condition?: Yes DNR: No Discharge Level of Care: Acute rehab Communicable Disease: No Discharge Prognosis: Stable Lines: None Urinary Catheter: Yes Medications and DC Order Prescriptions: New enoxaparin [Lovenox] 40 mg/0.4 mL Syringe 40 mg subcut HS Qty: 42 0RF Continued fluticasone propionate 50 mcg/actuation spray,suspension 2 sprays INTNAS QPM levetiracetam [Keppra] 250 mg tablet 250 mg PO BID 90 Days Qty: 180 1RF phenytoin sodium extended [Dilantin Extended] 100 mg capsule 200 mg PO BID 90 Days Qty: 360 3RF atorvastatin 40 mg tablet 40 mg PO HS glimepiride 2 mg tablet 2 mg PO BID Women's One Daily 18 mg iron-400 mcg-500 mg Ca Tablet 1 tab PO QAM vitamin B complex Tablet 1 tab PO QAM polyethylene glycol 3350 [Miralax] 17 gram powder in packet 17 g PO BID Rx Instructions: HOLD IF HAS DIARRHEA ammonium lactate 12 % cream 1 applic TOPICAL QAM Rx Instructions: Apply to feet. glimepiride 1 mg Tablet 1 mg PO DIRECTED PRN (Reason: BSG >300.) triamcinolone acetonide 0.1 % cream 1 applic TOPICAL BID PRN (Reason: Rash) Rx Instructions: apply to right buttocks prn rash valacyclovir 500 mg Tablet 500 mg PO DAILY calcium citrate-vitamin D3 [Calcium Citrate + D] 315 mg-5 mcg (200 unit) Tablet 2 tab PO QAM Qty: 0 Rx Instructions: two tablets daily albuterol sulfate [Ventolin HFA] 90 mcg/actuation Hfa Aerosol Inhaler 2 puff inhalation QIDR PRN (Reason: shortness of breath or wheezing) Qty: 6.7 0RF dextromethorphan-guaifenesin [Robitussin Cough-Chest Samm DM] 5-100 mg/5 mL Liquid 10 ml PO Q6H PRN (Reason: cough) Qty: 118 0RF famotidine 40 mg tablet 40 mg PO HS Glucerna Liquid 1 ea PO BID Rx Instructions: Offer bid diphenhydramine HCl [Benadryl Allergy] 25 mg Tablet 25 mg PO .Q4-6 PRN (Reason: .allergy) Mucinex DM 30-600 mg Tablet Extended Release 12 Hr 1 - 2 tab PO Q12H PRN (Reason: Nasal Congestion) acetaminophen [Tylenol Extra Strength] 500 mg tablet 1,000 mg PO Q6 PRN (Reason: Pain) Rx Instructions: Do not take >6 caplets in 24 hr. Tradjenta 5 mg tablet 5 mg PO DAILY bisacodyl 10 mg Suppository 10 mg CA DAILY PRN (Reason: constipation) Qty: 30 0RF sennosides-docusate sodium [Senokot-S] 8.6-50 mg Tablet 1 tab PO BID Qty: 60 0RF Rx Instructions: hold for diarrhea Changed clozapine 200 mg tablet 300 mg PO DAILY@1999 Qty: 0 0RF Discharge Orders: Discharge Order (Routine); Ordered 09/24/23 Ordered By: Cierra Dao Admission Data Admit Date/Time: 09/22/23 17:45 Attending Provider: Cierra Dao Admit Provider: Debby Metz Primary Care Provider: Delmy Jacobsen Other Providers: [facility]; Debby Metz; Ravi Beaulieu Other Interventions: Discharge Summary Assessment (RN) Last Done: 09/24/23 15:30
--- OUTSIDE RECORDS SUMMARY | 2023-09-25 06:50 | External Medical Summary | Summary of Care ---
Author Name Unknown Organization [facility] Address [address] [place] [address] Phone [phone] Care Team Providers Care Finance Vice President Name Role Phone Dheeraj NORWOOD MD, Vitor Baird Primary Care Provider [phone] Reason for Visit * Reason Onset Date Comments Appointment 09/20/2023 Colonoscopy Encounter Details Date Type Department Care Team (Late st Contact Info) Description 09/20/2023 Telephone Gastroenterology, [facility] [address] [place] [address] Specified, Zz No Resource [address] [place] [address] Appointment (Colonoscopy ) Allergies Active Allergy Reactions Criticality Noted Date Comments Aspirin 08/05/2016 Depakote Er Unknown 09/12/2007 Salicylates Unknown 10/30/2003 aspirin documented as of this encounter (statuses as of 09/20/2023) Medications Medication Sig Dispensed Refills Start Date End Date Status LEVETIRACETAM 250 MG PO TABS 1 tab twwice daily 0 Active Blood Glucose Monitoring Suppl (Fonemesh ULTRA SYSTEM) W/DEVICE KITIndications:Type 2 diabetes mellitus [...] hemoglobin A1c goal of less than 7.0% ([facility]) TEST BLOOD SUGAR before [...] FOR LOOSE STOOLS OR DIARRHEA 476 g 03/04/20 23 Active Calcium Citrate-Vitamin D 200-3.125 [...] 24 Active Bisacodyl 10 MG Rectal Suppository (Dulcolax)Indications:Co nstipation, unspecified constipation type Administer 1 Suppository into the rectum daily as needed for Constipation. 30 Suppository 09/03/19 24 Active documented as of this encounter (statuses as of 09/20/2023) Active Problems Problem Noted Date Diagnosed Date [...] as of this encounter (statuses as of 09/20/2023) Resolved Problems Problem Noted Date Diagnosed Date Resolved Date Constipation 09/10/2012 03/07/2018 Overview: ICD-10 update of inactive term ACTIVE CASE MANAGEMENT Keke Solis RN [phone] 01/25/2008 03/03/2010 Type 2 diabetes mellitus wit h hemoglobin A1c goal of less than 7.0% 10/30/2003 03/14/2009 Overview: Per Diabetes Taxonomy. ICD-10 update of inactive term Intellectual disability 10/30/200302/15 Overview: ICD-10 update of inactive term DM type 2, not at goal 10/30/200309/11 Psychotic disorder 10/30/2003 0 documented as of this encounter (statuses as of 09/20/2023) Immunizations Name Administration Dates Next Due COVID-19 mRNA, LNP-s, No Pre serve, 2-Dose Series (Moderna) 07/10/2020,06/12/2020 COVID-19, mRNA, LNP-s, PF, B ooster, 100mcg/0.5mg (Moderna) 09/18/2021,04/01/2021 Covid-19, Mrna, Lnp-s, Pf, B ivalent, 50 Mcg, IM, 12 yrs and above (Moderna) 03/11/2022 Hepatitis B, 20+ yrs 09/10/2014,03/08/2014,02/06 PPD 03/09/2022, 0,03/08/2019,03/04,02/14/2015,01/31/2013,01/25/2012 ,03/26/2010,09/21/2008 Pneumococcal Conjugate Vacci ne, 20-valent ([id number]) 03/09/2022 Pneumococcal Polysaccharide PPV23 (Pneumovax) 09/16/2005 Seasonal [...] encounter Miscellaneous Notes * Telephone Encounter - Sanaz Sullivan, STORM - 09/20/2023 9:13 AM EDT Called klever delgado pt is scheduled 02/08 with Ry. They stated that the pt is needing to do the 2 day prep cause when the pt had her last one she wasn't fully cleaned out with the one day prep. When calling with instructions. Give 2 day. documented in this encounter Plan of Treatment Upcoming Encounters Date Type Department Care Team (Late st Contact Info) Description 09/23/2023 10:00 AM EDT Office Visit Family Practice [facility] [address] [facility] [place] [address] Delmy Jacobsen PA-C [address] [place] [address] 10/19/2023 3:20 PM EDT Telemedicine Endocrinology, [place] [address] [place] [address] [place], Pharmacist Endocrinology [address] [place] [address] 10/28/2023 2:30 PM EDT Office Visit General Internal Medicine, [facility] [address] [place] [address] Rose Almaguer MD [address] [place] [address] 11/05/2023 9:30 AM EDT Nutrition Services Nutrition, [facility] 132 [facility] [place] [address] Brenda Rosales, JAMES 132 [facility] [place] [address] 12/30/2023 11:15 AM EDT Imaging Radiology [address] 132 [facility] [place] [address] 01/25/2024 2:00 PM EDT Telemedicine Endocrinology, [place] [address] [place] [address] Kristine Lopez CRNP [address] [place] [address] 02/09/2024 1:00 PM EDT Hospital Encounter ENDO [facility], Endoscopy Room [facility] [address] [place] [phone] Markell Marquez MD [address] [place] [address] 02/09/2024 1:00 PM EDT - 02/09/2024 1:30 PM EDT Surgery ENDO [facility], Endoscopy Room [facility] [address] [place] [phone] Markell Marquez MD [address] [place] [address] COLONOSCOPY FLEXIBLE PROXIMAL DIAGNOSTIC 02/15/2024 8:40 AM EDT Office Visit Family Practice [facility] [address] [facility] [place] [address] Delmy Jacobsen PA-C [address] [facility] [place] [address] 07/19/2024 10:30 AM EST Telemedicine [facility] [address] [place] [address] Carlita Louis PA-C [address] [place], [place] [phone] Scheduled Procedures Name Priority Associated Diagnoses Date/Ti me COLONOSCOPY FLEXIBLE PROXIMAL DIAGNOSTIC Special screening for malignant neoplasms, colon 02/09/2024 1:00 PM EDT Health Maintenance Due Date Last Done Comments [...] 09/10/2014, 02/15, 02/06/2014 Zoster Vaccines Completed 04/30/2020, 08/0 08/2019, 11/09/2019 Pneumococcal Vaccine: Pediatrics (0 to 5 Years) and At-Risk Patients (6 to 64 Years) Completed 03/09/2022, 09/16/2005 VITAMIN D LEVEL ONCE IN A LIFETIME-USE SMARTSET# [id number] Completed 10/23/2022, 07/23/2022 Influenza Vaccine (FLU shot) Completed , 02/04/2022, 01/21/2021, Additional history exists GARDASIL-HPV IMMUNIZATION SERIES Aged Out No longer eligible based on patient's age to complete this topic MENINGOCOCCAL (MENACTRA/MENVEO) Aged Out No longer eligible based on patient's age to complete this topic documented as of this encounter Medical Devices Not on filedocumented as of this encounter Care Teams Finance Vice President Relationship Specialty Start Date End Date Vitor Esqueda III, MD [address] [place] [address] PCP - General Family Medicine 07/20/18 documented as of this encounter
--- OUTSIDE RECORDS SUMMARY | 2023-09-25 06:50 | External Medical Summary | Summary of Care ---
Author Name Unknown Organization [facility] Address [address] [place] [address] Phone [phone] Care Team Providers Care Ammonium Nitrate Neutralizer Name Role Phone Dheeraj NORWOOD MD, Vitor Baird Primary Care Provider [phone] Encounter Details Date Type Department Care Team (Late st Contact Info) Description 09/16/2023 9:30 AM EDT Scheduled Telephone Care Coordination and Integration [address] [place], [place] [phone] Rosalinda Delgado, Community Health Detention Worker [address], [place] [phone] Allergies Active Allergy Reactions Criticality Noted Date Comments Aspirin 08/05/2016 Depakote Er Unknown 09/12/2007 Salicylates Unknown 10/30/2003 aspirin documented as of this encounter (statuses as of 09/16/2023) Medications Medication Sig Dispensed Refills Start Date End Date Status LEVETIRACETAM 250 MG PO TABS 1 tab twwice daily 0 Active Blood Glucose Monitoring Suppl (Tacit NetworksUCH ULTRA SYSTEM) W/DEVICE KITIndications:Type 2 diabetes mellitus [...] goal of less than 7.0% ([facility]) TEST BLOOD SUGAR before breakfast and [...] as of this encounter (statuses as of 09/16/2023) Active Problems Problem Noted Date Diagnosed Date [...] as of this encounter (statuses as of 09/16/2023) Resolved Problems Problem Noted Date Diagnosed Date Resolved Date Constipation 09/10/2012 03/07/2018 Overview: ICD-10 update of inactive term ACTIVE CASE MANAGEMENT Keke Solis RN [phone] 01/25/2008 03/03/2010 Type 2 diabetes mellitus wit h hemoglobin A1c goal of less than 7.0% 10/30/2003 03/14/2009 Overview: Per Diabetes Taxonomy. ICD-10 update of inactive term Intellectual disability 10/30/200302/15 Overview: ICD-10 update of inactive term DM type 2, not at goal 10/30/200309/11 Psychotic disorder 10/30/2003 0 documented as of this encounter (statuses as of 09/16/2023) Immunizations Name Administration Dates Next Due COVID-19 mRNA, LNP-s, No Pre serve, 2-Dose Series (Moderna) 07/10/2020,06/12/2020 COVID-19, mRNA, LNP-s, PF, B ooster, 100mcg/0.5mg (Moderna) 09/18/2021,04/01/2021 Covid-19, Mrna, Lnp-s, Pf, B ivalent, 50 Mcg, IM, 12 yrs and above (Moderna) 03/11/2022 Hepatitis B, 20+ yrs 09/10/2014,03/08/2014,02/06 PPD 03/09/2022, 0,03/08/2019,03/04,02/14/2015,01/31/2013,01/25/2012 ,03/26/2010,09/21/2008 Pneumococcal Conjugate Vacci ne, 20-valent ([id number]) 03/09/2022 Pneumococcal Polysaccharide PPV23 (Pneumovax) 09/16/2005 Seasonal [...] Progress Notes * Rosalinda Delgado, Community Health Detention Worker - 09/16/2023 8:37 AM EDT Telemedicine visit: No Community Health Detention Worker (CLAUDE) documentation: CLAUDE tiera call week 07/19 per Marycarmen Hubbard RN CM No answer at [place] Delgado; left VM requesting call back. Electronically signed by Rosalinda Delgado [facility] Health Detention Worker at 09/16/2023 8:38 AM EDT documented in this encounter Plan of Treatment Upcoming Encounters Date Type Department Care Team (Late st Contact Info) Description 09/23/2023 10:00 AM EDT Office Visit Family Practice [facility] [address] [facility] [place] [address] Delmy Jacobsen PA-C [address] [facility] [place] [address] 10/19/2023 3:20 PM EDT Telemedicine Endocrinology, [place] [address] [place] [address] [place], Pharmacist Endocrinology [address] [place] [address] 10/28/2023 2:30 PM EDT Office Visit General Internal Medicine, [facility] [address] [place] [address] Rose Almaguer MD [address], [place] [id number] 11/05/2023 9:30 AM EDT Nutrition Services Nutrition, [facility] 132 [facility] [place] [address] Brenda Rosales RDN [facility] [address] 12/30/2023 11:15 AM EDT Imaging Radiology [facility]st [facility] [address] [facility] [place] [address] 01/25/2024 2:00 PM EDT Telemedicine Endocrinology, [place] [address] [place] [address] Kristine Lopez CRNP [address] [place], [place] [phone] 02/15/2024 8:40 AM EDT Office Visit Family Practice [facility] [place] [address] [facility] [place], [place] [address] Delmy Jacobsen PA-C [facility] [place] [address] 07/19/2024 10:30 AM EST Telemedicine [facility] [address] [place] [address] Carlita Louis PA-C [address] [place] [address] Health Maintenance Due Date Last Done Comments [...] D LEVEL ONCE IN A LIFETIME-USE SMARTSET# [id number] Completed 10/23/2022, 07/23/2022 Influenza Vaccine (FLU shot) Completed , 02/04/2022, 01/21/2021, Additional history exists GARDASIL-HPV IMMUNIZATION SERIES Aged Out No longer eligible based on patient's age to complete this topic MENINGOCOCCAL (MENACTRA/MENVEO) Aged Out No longer eligible based on patient's age to complete this topic documented as of this encounter Medical Devices Not on filedocumented as of this encounter Care Teams Ammonium Nitrate Neutralizer Relationship Specialty Start Date End Date Vitor Esqueda III, MD [address] [place] [address] PCP - General Family Medicine 07/20/18 documented as of this encounter
== END 2023-09-24 16:00 ==
LOC: ED 09:47 → 2W 09:47 → SUATTDRO 17:45 → 2W 22:20

== ENCOUNTER 2023-10-14 13:26 | Inpatient (IN) ==
--- NOTE | 2023-10-14 13:33 | ED Triage Note ---
Date of Service October 14, 2023 Provider in Triage Author: Aaron Renee History of Present Illness This patient was briefly evaluated while in triage. An abbreviated physical exam was performed. This patient is a 63-year-old Female who presents to the ED for evaluation of knee injury, L leg casted. Sent from [employer] noting trouble with moving/transferring patient and concern for falling. Was at [facility] recently. Physical Exam GENERAL: 63 year old female. In no acute distress. SKIN: No lesions or rashes. L leg cast noted. HEART: Regular rate and rhythm. LUNGS: Clear to auscultation.. MUSCULOSKELETAL: No deformities to inspection of the extremities. L leg cast in place, pink in color. PSYCH: Patient is pleasant and answers all questions appropriately. Initial orders for labs and / or imaging were placed and patient was placed in the waiting area until a bed is available. Please see further documentation for the full ED course.
--- NOTE | 2023-10-14 16:28 | Emergency Department Note ---
Impression & Plan Ambulatory dysfunction, Fracture of tibial plateau admit to the [facility] ED Provider Note NAME: ORLANDO LESLIE AGE: 63 SEX: Female INFORMANT: Visitor Services Assistant ED PROVIDER(S): Helena Narvaez DO CHIEF COMPLAINT: unable to obtain secondary to patient's mental status. PLAN: Disposition: admit to the [facility] MEDICAL DECISION MAKING: this is a 63-year-old female patient brought to the emergency department by trial judge from [facility]. Patient had to be placed into a full leg cast and is unable to bear weight on that leg and therefore was unable to stay in her long-term. laboratory studies were unremarkable. She was not anemic. She had normal white blood cell count. Glucose was slightly elevated at 143. Case management was working on placement. They could not accomplish this without the patient being admitted into the hospital in preparation for placement into a [facility] facility. Care/management discussed with: Visitor Services Assistant, patient, newspaper manager, [facility] Triage Nursing notes: reviewed and agree them. Vital Signs: reviewed and unremarkable Chronic Medical/Social Conditions affecting care: intellectual delay; lives in a [facility] long-term HPI: 63 year old Female arrives for evaluation of inability to bear weight on the left leg. patient has a tibial plateau fracture that has worsened over the past couple of weeks because she has been bearing weight in the leg brace. she was seen by orthopedics today and they placed her in a full leg cast. she is unable to remain in her long-term because she is a full assist to ambulate and transferred. She was seen by her PCP who is trying to make arrangements for the patient placed in a [facility] facility. They are unable to confirm placement and she was transferred here for case management assistance in placement. PAST MEDICAL HISTORY: See Below, PAST SURGICAL HISTORY: See Below, SOCIAL HISTORY: See Below, HOME MEDICATIONS: See list ALLERGIES: see list VITALS: See Below PHYSICAL EXAMINATION: HEENT: Head - normocephalic and atraumatic Pupils are equal, round, and reactive to light. Extraocular eye muscles are intact, and sclera are anicteric. Nose - moist nasal mucosa without discharge. Mouth - moist buccal mucosa. Oropharynx is nonerythematous and there is no tonsillar exudate or edema noted. Neck: Supple; no JVD, nuchal rigidity, cervical lymphadenopathy, or auscultated bruits. Heart: Regular rate and rhythm. There is a normal S1 and S2 with no murmurs, clicks, or gallops appreciated. Lungs: Clear to auscultation bilaterally with no wheezes, rales, or rhonchi. Abdomen: Soft, completely nontender, nondistended, with good bowel sounds. There are no palpable pulsatile masses or hepatosplenomegaly. There is no guarding, rigidity, or rebound noted. Extremities: Left lower extremity is casted from her groin down to her toes. Skin: warm and dry with good turgor and no rashes. Emergency department course: The patient was evaluated in room B-7. A complete history and physical was performed. Laboratory studies were drawn as above. I did discuss the case with the newspaper manager and they spoke with the staff member from [employer] [facility]. I discussed the case with the [facility] [address] Hospitalist and they will evaluate for further inpatient care. Past Med/Surg History Problem List (Updated 10/15/23 @ 00:37 by Helena Narvaez DO) Fracture of tibial plateau (Acute) Ambulatory dysfunction (Acute) Tibial plateau fracture, left (Acute) Constipation in female Elevated lactic acid level (Acute) Dizziness (Acute) Weakness (Acute) Abdominal distension (Acute) Leukocytosis (Acute) Lethargy (Acute) Gastric distention (Acute) Elevated lactic acid level (Acute) Altered mental status (Acute) Colon distention Aspiration pneumonia Sepsis Seizure disorder (Chronic) Gastric distention HSV (herpes simplex virus) anogenital infection GERD (gastroesophageal reflux disease) Dyslipidemia Ambulatory dysfunction Acute alteration in mental status (Acute) Generalized weakness (Acute) Influenza A (Acute) 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 Acute encephalopathy Acute confusion (Acute) Generalized weakness (Acute) Elevated lactic acid level (Acute) COVID-19 (Acute) Weight loss Intellectual delay DMII (diabetes mellitus, type 2) Hyperammonemia 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 Ataxia History of cellulitis (Acute) Failure of outpatient treatment (Acute) Generalized weakness (Acute) Dehydration (Acute) Acute dehydration SARS-CoV-2 positive Metabolic encephalopathy UTI (urinary tract infection) (Acute) Pneumonia (Acute) Bilateral pneumonia (Acute) Acute UTI (Acute) Acute hyperglycemia (Acute) Paranoid schizophrenia (Acute) Diabetes mellitus type 2 in nonobese Abnormal urinalysis Sepsis (Acute) Ulnar neuropathy at elbow of left upper extremity Depression (Acute) Depression with anxiety (Acute) Complex partial seizure (Acute) Gait disturbance Left-sided weakness Mental disability (Acute 08/04/11) Pneumonia (Acute 08/04/11) Diabetes (Chronic) Hypertension (Chronic) Schizophrenia (Chronic) Medical History (Updated 10/15/23 @ 00:37 by Helena Narvaez DO) Weakness Heart murmur Onychomycosis Surgical History History of colonoscopy Family History Mother Diabetes Other Seizures Social History Smoking Status: Never smoker Second Hand Exposure: No; Do You Dip or Chew Tobacco: No; Tobacco Cessation Education Requested by Patient: No Hx Alcohol Use: No Hx Substance Use: No Preferred Language: Montenegrin Communication Ability: Effective Communication Ability Comment: Intellectual Disability Visual Impairment: No Limitations Hearing Ability: Normal Nursery Nurse Required: No Beliefs That Will Affect Care: None marital status: Single Current Living Situation: Other Current Living Situation Comment: skilled nursing current occupational status: disabled Other Information That Helps Us Care for You: No Feels Safe at Home: Yes Safety Concerns: Feels Safe At This Time Assistive Devices: Walker and Wheelchair Allergies Allergies Allergy/AdvReac Type Severity Reaction Status Date / Time divalproex sodium Allergy Unknown Unknown Verified 10/14/23 16:49 [From Depakote] salicylates Allergy Unknown Unknown Verified 10/14/23 16:49 valproic acid Allergy Unknown Unknown Verified 10/14/23 16:49 aspirin AdvReac Severe STOMACH Verified 10/14/23 16:49 ULCER BLEEDING Home Meds Home Medications Medication Instructions Recorded Confirmed atorvastatin 40 mg tablet 40 mg PO HS 07/17/18 10/14/23 glimepiride 2 mg tablet 4 mg PO QAM 07/17/18 10/14/23 multivit-iron 18 mg-folic acid 400 1 tab PO QAM 07/17/18 10/14/23 mcg-calcium 500 mg-minerals tablet (Women's One Daily) vitamin B complex 1 tab PO QAM 08/25/18 10/14/23 fluticasone propionate 50 2 sprays intranasal 02/15/19 10/14/23 mcg/actuation nasal spray,suspension ammonium lactate 12 % topical cream 1 applic topical QAM 05/21/19 10/14/23 triamcinolone acetonide 0.1 % 1 applic topical BID PRN Rash 07/10/21 10/14/23 topical cream valacyclovir 500 mg tablet 500 mg PO DAILY 02/18/22 10/14/23 glimepiride 1 mg tablet 1 mg PO DAILY PRN BSG >300. 10/14/22 10/14/23 polyethylene glycol 3350 17 gram 17 g PO BID 10/19/22 10/14/23 oral powder packet (Miralax) calcium citrate 315 mg-vitamin D3 2 tab PO QAM ##0 02/11/23 10/14/23 5 mcg (200 unit) tablet (Calcium Citrate + D) acetaminophen 500 mg tablet 1,000 mg PO Q6 PRN Pain 06/07/23 10/14/23 (Tylenol Extra Strength) dextromethorphan-guaifenesin 30 1 - 2 tab PO Q12H PRN Nasal 06/07/23 10/14/23 mg-600 mg tablet extended Congestion stgiaxv00 hr (Mucinex DM) diphenhydramine HCl 25 mg tablet 25 mg PO .Q4-6 PRN Allergy Symptoms 06/07/23 10/14/23 (Benadryl Allergy) famotidine 40 mg tablet 40 mg PO HS 06/07/23 10/14/23 linagliptin 5 mg tablet (Tradjenta) 5 mg PO DAILY 08/15/23 10/14/23 clozapine 200 mg tablet 200 mg PO HS 10/14/23 10/14/23 rivaroxaban 10 mg tablet (Xarelto) 10 mg PO QAM 10/14/23 10/14/23 Previous Rx's Medication Instructions Recorded albuterol sulfate 90 mcg/actuation 2 puff inhalation QIDR PRN 03/03/23 aerosol inhaler (Ventolin HFA) shortness of breath or wheezing #6.7 grams dextromethorphan-guaifenesin 5 10 ml PO Q6H PRN cough #118 mL 03/03/23 mg-100 mg/5 mL oral liquid (Robitussin Cough-Chest Congestion DM) bisacodyl 10 mg rectal suppository 10 mg LA DAILY PRN constipation 08/23/23 #30 ea levetiracetam 250 mg tablet 250 mg PO BID 90 days #180 tabs 08/30/23 (Keppra) phenytoin sodium extended 100 mg 200 mg (2 x 100 mg) PO BID 90 days 08/30/23 capsule (Dilantin Extended) #360 caps sennosides 8.6 mg-docusate sodium 1 tab PO BID #60 tabs 09/21/23 50 mg tablet (Senokot-S) Results & Data (ED) Vital Signs Vital Signs - 24 hr 10/14/23 13:31 10/14/23 16:10 Temperature 36.6 C Temperature Source Temporal Artery Scan Pulse Rate 84 Pulse Rate [Right Finger] 70 Respiratory Rate 16 16 Respiratory Effort / Characteristics Non-Labored Spontaneous Respiratory Depth Normal Respiratory Pattern Regular Blood Pressure 101/65 Blood Pressure [Right Arm] 105/60 Blood Pressure Mean 77 Blood Pressure Mean [Right Arm] 75 Pulse Oximetry 99 96 Oxygen Delivery Method Room Air Room Air Sepsis Recent Fever Within 48 Hours No Sepsis New/Unexplained Change in Mental Status No Sepsis Action Taken by Nursing No Action Required Laboratory Data 10/14/23 13:34 10/14/23 13:34 Lab Results 10/14/23 Range/Units 13:34 WBC 5.03 (4.8-10.8) K/ul RBC 4.32 (4.20-5.40) M/uL Hgb 13.2 (12.0-16.0) g/dl Hct 40.3 (37.0-47.0) % MCV 93.3 (80.0-100.0) fL MCH 30.6 (25.0-34.0) pg MCHC 32.8 (32.0-36.0) g/dL RDW Std Deviation 45.8 (36.4-46.3) fL RDW Coeff of Liliana 13.5 (11.5-14.5) % Plt Count 166 (130-400) K/uL MPV 11.5 (9.4-12.4) fL Immature Gran % (Auto) 0.2 % Neut % (Auto) 65.6 % Lymph % (Auto) 23.9 % [place] % (Auto) 9.9 % Eos % (Auto) 0.0 % Baso % (Auto) 0.4 % Neut # (Auto) 3.30 (1.40-6.50) K/uL Lymph # (Auto) 1.20 (1.20-3.40) K/uL [place] # (Auto) 0.50 (0.11-0.59) K/uL Eos # (Auto) 0.00 (0.00-0.50) K/uL Baso # (Auto) 0.02 (0.00-0.20) K/uL Immature Gran # (Auto) 0.01 (0.01-0.20) K/uL Sodium 140 (136-145) mmol/L Potassium 4.3 (3.5-5.1) mmol/L Chloride 107 (98-107) mmol/L Carbon Dioxide 28 (21-32) mmol/L Anion Gap 5 (3-11) BUN 18 (6-23) mg/dl Creatinine 0.49 L (0.6-1.2) mg/dl Est Cr Clr Drug Dosing Not Reportable Est GFR ( Amer) 121.9 ml/min Est GFR (Non-Af Amer) 105.2 ml/min BUN/Creatinine Ratio 36.7 H (10-20) Glucose 143 H (70-99(Fasting)) mg/dl Calcium 8.6 (8.6-10.3) mg/dl Total Bilirubin 0.2 (0.2-1.0) mg/dl AST 27 (13-39) U/L ALT 35 (7-52) U/L Alkaline Phosphatase 115 H (34-104) U/L Total Protein 6.4 (6.0-8.3) gm/dl Albumin 3.8 (3.4-5.0) gm/dl Globulin 2.6 (2.5-4.0) gm/dl Albumin/Globulin Ratio 1.5 (0.9-2) Administered Medications Atorvastatin Calcium (Atorvastatin 40 Mg Tab) 40 mg PO HS DELMI Stop: 11/13/23 20:59 Last Admin: 10/14/23 21:50 Dose: 40 mg Documented By: CWR Clozapine (Clozapine 100 Mg Tab) 200 mg PO HS DELMI; Protocol Stop: 11/13/23 21:29 Last Admin: 10/14/23 21:48 Dose: 200 mg Documented By: CWR Famotidine (Famotidine 40 Mg Tablet) 40 mg PO HS DELMI Stop: 11/13/23 20:59 Last Admin: 10/14/23 21:50 Dose: 40 mg Documented By: CHELSEA Fluticasone Propionate (Fluticasone Propionate Na Spr 16 Gm Btl) 2 sprays NA HS [facility] Stop: 11/13/23 20:59 Last Admin: 10/14/23 21:50 Dose: 2 sprays Documented By: ISSACR Insulin Aspart (Insulin Aspart Per Unit Charge) 0 units SC ACHS DELMI Stop: 11/13/23 20:59 Last Admin: 10/14/23 22:09 Dose: Not Given Documented By: CHELSEA Co-signed By: JESSIE Levetiracetam (Levetiracetam 250 Mg Tab) 250 mg PO BID DELMI Stop: 11/13/23 20:59 Last Admin: 10/14/23 21:49 Dose: 250 mg Documented By: CHELSEA Miscellaneous (Trajenta 5mg--Order Awaiting Action) 1 each N/A QS [facility] Stop: 11/14/23 00:00 Last Admin: 10/14/23 23:33 Dose: Not Given Documented By: CHELSEA Phenytoin Sodium (Phenytoin Sodium Er 100 Mg Cap) 200 mg PO BID DELMI Stop: 11/13/23 20:59 Last Admin: 10/14/23 21:49 Dose: 200 mg Documented By: CHELSEA Polyethylene Glycol (Polyethylene (Miralax) 17 Gm Pack) 17 gm PO BID [facility] Stop: 11/13/23 20:59 Last Admin: 10/14/23 21:51 Dose: 17 gm Documented By: CHELSEA Senna/Docusate Sodium (Docusate Sodium/Senna 50/8.6mg Tab) 1 tab PO BID DELMI Stop: 11/13/23 20:59 Last Admin: 10/14/23 21:50 Dose: 1 tab Documented By: ISSACR Discharge Plan Visit Data Chief Complaint: Weakness Stated Complaint: [facility] ED Provider: Helena Narvaez Discharge Problem: Ambulatory dysfunction, Fracture of tibial plateau Patient Disposition: Admitted As Inpatient Discharge Instructions Interventions: ED Discharge Assessment Last Done: 10/14/23 19:20
[2023-10-14 16:59] LABS: Basophils # (auto) 0.02 K/uL (0.00-0.20); Basophils % (auto) 0.4 %; Hematocrit (blood only) 40.3 % (37.0-47.0); Hemoglobin 13.2 g/dl (12.0-16.0); Immature Granulocytes # (auto) 0.01 K/uL (0.01-0.20); Immature Granulocytes % (auto) 0.2 %; Lymphocytes % (auto) 23.9 %; Mean Corpuscular Hemoglobin 30.6 pg (25.0-34.0); Mean Corpuscular Hgb Conc 32.8 g/dL (32.0-36.0); Mean Corpuscular Volume 93.3 fL (80.0-100.0); Mean Platelet Volume 11.5 fL (9.4-12.4); Monocytes % (auto) 9.9 %; Neutrophils % (auto) 65.6 %; Platelet Count 166 K/uL (130-400); RDW Coefficient of Variation 13.5 % (11.5-14.5); RDW Standard Deviation 45.8 fL (36.4-46.3); Red Blood Count 4.32 M/uL (4.20-5.40); White Blood Count 5.03 K/ul (4.8-10.8)
[2023-10-14 17:13] LABS: Alanine Aminotransferase 35 U/L (7-52); Albumin Globulin Ratio 1.5 (0.9-2); Albumin Level 3.8 gm/dl (3.4-5.0); Alkaline Phosphatase 115 U/L (34-104); Anion Gap 5 (3-11); Aspartate Aminotransferase 27 U/L (13-39); BUN Creatinine Ratio 36.7 (10-20); Bilirubin,Total 0.2 mg/dl (0.2-1.0); Blood Urea Nitrogen 18 mg/dl (6-23); Calcium 8.6 mg/dl (8.6-10.3); Carbon Dioxide 28 mmol/L (21-32); Chloride 107 mmol/L (98-107); Est GFR (African American) 121.9 ml/min; Est GFR (Non-African American) 105.2 ml/min; Globulin 2.6 gm/dl (2.5-4.0); Glucose 143 mg/dl (70-99(Fasting)); Potassium 4.3 mmol/L (3.5-5.1); Sodium 140 mmol/L (136-145); Total Protein 6.4 gm/dl (6.0-8.3)
--- NOTE | 2023-10-14 19:26 | History & Physical Report ---
Date of Service October 14, 2023 Assessment & Plan (1) Tibial plateau fracture, left: (2) Ambulatory dysfunction: (3) Intellectual delay: Plan Patient is 63 year old female with a PMH of seizures, ambulatory dysfunction, cognitive dysfunction, schizophrenia, DM II, and other medical problems presents from [facility] with staff member due to needing placement while nonweightbearing. Ambulatory dysfunction Recent fall, prior to previous admission Left tibial plateau fracture - NWB status admit to medical NWB x 12 weeks to LLE PT/OT Placement Constipation hx pt suffers from chronic constipation continue bowel regimen Hyperglycemia H/O DM II HbA1c 5.3 , will repeat a1c in a.m. hold p.o. medications per previous admission: "Blood sugars have been running high at personal care facility" Continue insulin while hospitalized Monitor blood glucose levels Per Previous admission: "Discussed with simulation educator--Given A1c likely unreliable, given variable blood glucose levels at detention, plan to continue outpatient diabetic regimen on discharge" Hyperlipidemia on statin Seizure disorder Paranoid schizophrenia with auditory hallucinations Intellectual impairment Continue home medications, appears stable DVT Px: currently on xarelto in setting of NWB status Code Status: Full code PCP: Delmy Jacobsen Dispo: PT/OT, pt needs SNF placement while NWB, follows with [facility] Pt was seen and examined in collaboration with Dr. Farley, please see addendum A total of 45 minutes was spent coordinating, documenting, and providing care for this patient excluding time spent in the performance of separately billed services. This included personally viewing all current laboratories and imaging studies, medication reconciliation, outpatient chart review, and discussion with specialists. History of Present Illness Chief Complaint: Non weight bearing status and staff unable to care for her at [facility]. Primary Care Provider: Delmy Jacobsen PA-C Patient is 63 year old female with a PMH of seizures, ambulatory dysfunction, cognitive dysfunction, schizophrenia, DM II, and other medical problems presents from [facility] with staff member due to needing placement while nonweightbearing.Of significance patient was recently hospitalized on 09/21 and discharged on 09/23 secondary to amatory dysfunction in setting of a recent fall and diagnosed with a left tibial plateau fracture. She also was constipated. She was seen and evaluated by orthopedics who recommended knee immobilizer and nonweightbearing status. Her constipation resolved. She was then transition to [facility]. While at [facility] she was able to transition from a 2 assist to a 1 assist and therefore was able to transition back to [facility]. Unfortunately patient had not been maintaining her nonweightbearing status and when followed up with orthopedics yesterday there was some decompensation to her fracture. Due to her inability to follow a strict nonweightbearing status she was placed in a long cast to her left leg. With this restriction her mobility is significantly limited in status or refills unable to care for her. field reimbursement manager as outpatient was working on setting up for SNF; however due to no bed availability presented to ED for placement. Patient's history is limited due to underlying intellectual disability but reports no concerns. Staff member at bedside feels she has been doing well. Allergies Allergy/AdvReac Type Severity Reaction Status Date / Time divalproex sodium Allergy Unknown Unknown Verified 10/14/23 16:49 [From Depakote] salicylates Allergy Unknown Unknown Verified 10/14/23 16:49 valproic acid Allergy Unknown Unknown Verified 10/14/23 16:49 aspirin AdvReac Severe STOMACH Verified 10/14/23 16:49 ULCER BLEEDING Home Medications Medication Instructions Recorded Confirmed Type atorvastatin 40 mg tablet 40 mg PO HS 07/17/18 10/14/23 History glimepiride 2 mg tablet 4 mg PO QAM 07/17/18 10/14/23 History multivit-iron 18 mg-folic acid 400 1 tab PO QAM 07/17/18 10/14/23 History mcg-calcium 500 mg-minerals tablet (Women's One Daily) vitamin B complex 1 tab PO QAM 08/25/18 10/14/23 History fluticasone propionate 50 2 sprays intranasal HS 02/15/19 10/14/23 History mcg/actuation nasal spray,suspension ammonium lactate 12 % topical cream 1 applic topical QAM 05/21/19 10/14/23 History triamcinolone acetonide 0.1 % 1 applic topical BID PRN Rash 07/10/21 10/14/23 History topical cream valacyclovir 500 mg tablet 500 mg PO DAILY 02/18/22 10/14/23 History glimepiride 1 mg tablet 1 mg PO DAILY PRN BSG >300. 10/14/22 10/14/23 History polyethylene glycol 3350 17 gram 17 g PO BID 10/19/22 10/14/23 History oral powder packet (Miralax) calcium citrate 315 mg-vitamin D3 2 tab PO QAM ##0 02/11/23 10/14/23 History 5 mcg (200 unit) tablet (Calcium Citrate + D) albuterol sulfate 90 mcg/actuation 2 puff inhalation QIDR PRN 03/03/23 10/14/23 Rx aerosol inhaler (Ventolin HFA) shortness of breath or wheezing #6.7 grams dextromethorphan-guaifenesin 5 10 ml PO Q6H PRN cough #118 mL 03/03/23 10/14/23 Rx mg-100 mg/5 mL oral liquid (Robitussin Cough-Chest Congestion DM) acetaminophen 500 mg tablet 1,000 mg PO Q6 PRN Pain 06/07/23 10/14/23 History (Tylenol Extra Strength) dextromethorphan-guaifenesin 30 1 - 2 tab PO Q12H PRN Nasal 06/07/23 10/14/23 History mg-600 mg tablet extended Congestion pmogfmx20 hr (Mucinex DM) diphenhydramine HCl 25 mg tablet 25 mg PO .Q4-6 PRN Allergy Symptoms 06/07/23 10/14/23 History (Benadryl Allergy) famotidine 40 mg tablet 40 mg PO HS 06/07/23 10/14/23 History linagliptin 5 mg tablet (Tradjenta) 5 mg PO DAILY 08/15/23 10/14/23 History bisacodyl 10 mg rectal suppository 10 mg IN DAILY PRN constipation 08/23/23 10/14/23 Rx #30 ea levetiracetam 250 mg tablet 250 mg PO BID 90 days #180 tabs 08/30/23 10/14/23 Rx (Keppra) phenytoin sodium extended 100 mg 200 mg (2 x 100 mg) PO BID 90 days 08/30/23 10/14/23 Rx capsule (Dilantin Extended) #360 caps sennosides 8.6 mg-docusate sodium 1 tab PO BID #60 tabs 09/21/23 10/14/23 Rx 50 mg tablet (Senokot-S) clozapine 200 mg tablet 200 mg PO HS 10/14/23 10/14/23 History rivaroxaban 10 mg tablet (Xarelto) 10 mg PO QAM 05/30/24 05/30/24 History Past Med/Surg History Problem List (Updated 09/30/23 @ 00:09 by Asmita Rowan) Tibial plateau fracture, left (Acute) Constipation in female Elevated lactic acid level (Acute) Dizziness (Acute) Weakness (Acute) Abdominal distension (Acute) Leukocytosis (Acute) Lethargy (Acute) Gastric distention (Acute) Elevated lactic acid level (Acute) Altered mental status (Acute) Colon distention Aspiration pneumonia Sepsis Seizure disorder (Chronic) Gastric distention HSV (herpes simplex virus) anogenital infection GERD (gastroesophageal reflux disease) Dyslipidemia Ambulatory dysfunction Acute alteration in mental status (Acute) Generalized weakness (Acute) Influenza A (Acute) 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 Acute encephalopathy Acute confusion (Acute) Generalized weakness (Acute) Elevated lactic acid level (Acute) COVID-19 (Acute) Weight loss Intellectual delay DMII (diabetes mellitus, type 2) Hyperammonemia On custodial drug therapy Ataxia History of cellulitis (Acute) Failure of outpatient treatment (Acute) Generalized weakness (Acute) Dehydration (Acute) Acute dehydration SARS-CoV-2 positive Metabolic encephalopathy UTI (urinary tract infection) (Acute) Pneumonia (Acute) Bilateral pneumonia (Acute) Acute UTI (Acute) Acute hyperglycemia (Acute) Paranoid schizophrenia (Acute) Diabetes mellitus type 2 in nonobese Abnormal urinalysis Sepsis (Acute) Ulnar neuropathy at elbow of left upper extremity Depression (Acute) Depression with anxiety (Acute) Complex partial seizure (Acute) Gait disturbance Left-sided weakness Mental disability (Acute 08/04/11) Pneumonia (Acute 08/04/11) Diabetes (Chronic) Hypertension (Chronic) Schizophrenia (Chronic) Medical History Seizure disorder GERD (gastroesophageal reflux disease) Acute metabolic encephalopathy Head injury Fall Acute alteration in mental status Elevated lactic acid level Weakness AMS (altered mental status) DMII (diabetes mellitus, type 2) HSV (herpes simplex virus) anogenital infection Complex partial seizure Depression with anxiety Heart murmur Onychomycosis Hypertension Schizophrenia Surgical History History of colonoscopy Family History Mother Diabetes Other Seizures Social History Smoking Status: Never smoker Hx Alcohol Use: No Hx Substance Use: No Preferred Language: Cameroonian Communication Ability: Effective Communication Ability Comment: Intellectual Disability Visual Impairment: No Limitations Hearing Ability: Normal 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 farley addendum for physical exam findings. Results & Data Results & Data Vital Signs (Past 12 Hours) Vital Signs Temp Pulse Pulse Resp BP BP Pulse Ox 10/14/23 16:10 70 16 105/60 96 10/14/23 13:31 36.6 C 84 16 101/65 99 O2 Del Method 10/14/23 16:10 Room Air 10/14/23 13:31 Room Air Laboratory Results Short CBC 10/14/23 Range/Units 13:34 WBC 5.03 (4.8-10.8) K/ul Hgb 13.2 (12.0-16.0) g/dl Hct 40.3 (37.0-47.0) % Plt Count 166 (130-400) K/uL BMP 10/14/23 13:34 Sodium 140 Potassium 4.3 Chloride 107 Carbon Dioxide 28 BUN 18 Creatinine 0.49 L Glucose 143 H Calcium 8.6 Liver Function 10/14/23 Range/Units 13:34 Total Bilirubin 0.2 (0.2-1.0) mg/dl AST 27 (13-39) U/L ALT 35 (7-52) U/L Alkaline Phosphatase 115 H (34-104) U/L Albumin 3.8 (3.4-5.0) gm/dl Code Status & VTE Plan Code Status FULL CODE VTE Prophylaxis Plan VTE Prophylaxis will be ordered: Yes Supervising Physician Co-Signing Physician Notes I have seen and discussed the case with the collaborating advanced practitioner. I agree with the above H&P. I have reviewed and confirmed the patients medical history, the findings on physical examination, and the patients diagnosis and treatment plan with Jennifer PEREZ and agree with the information documented. 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 Patient unable to aid in transfers or movement while in cast, prompting need for SNF. GENERAL APPEARANCE: AxOx1, awake, follows commands, slow to respond but will answer yes/no questions mostly ( simple, short questions) HEENT: NC, AT. MMM. EOMI, clear conjunctiva NECK: Supple without lymphadenopathy. No stiffness or restricted ROM. HEART: Normal rate and regular rhythm, normal S1/S1, no m/r/g LUNGS: CTAB, moving air well. No crackles or wheezes are heard. ABDOMEN: Soft, nontender, no distention +BS BACK: No CVAT, no obvious deformity. EXTREMITIES: Without cyanosis, clubbing or edema.trace bruising of right knee = NEUROLOGICAL: Grossly nonfocal. moving all 4 extremities. CN not formally tested but appear grossly intact. Skin: Warm and dry without any rash. #Ambulatory dysfunction #Left progressive tibial plateau fracture senior living unable to support needs, pending SNF placement PT/OT Fall precautions Rest of plan as above I spent a total of 35 minutes coordinating, documenting, and providing care for this patient excluding time spent in the performance of separately billed services. All of the aforementioned completed outside of collaborating with the assigned advanced practitioner for a full treatment plan. I have reviewed the advanced practitioner's documentation, and I agree with, and take responsibility for the plan of care (1) Tibial plateau fracture, left Encounter type: initial encounter Fracture type: closed Qualified Code(s): S82.142A - Displaced bicondylar fracture of left tibia, initial encounter for closed fracture
[2023-10-14] MEDS ORDERED: TRIAMCINOLONE ACET 0.1% CR 15 GM TUBE TOP PRN (19:58)
[2023-10-14] MEDS ORDERED: POLYETHYLENE (MIRALAX) 17 GM PACK PO PRN (19:58)
[2023-10-14] MEDS ORDERED: GLUCAGON FOR INJ 1 MG VIAL SQ PRN (19:58)
[2023-10-14] MEDS ORDERED: ALUMINUM/MAGNESIUM SUSP 30 ML UDC PO PRN (19:58)
[2023-10-14] MEDS ORDERED: ONDANSETRON INJ 2 MG/ML 2 ML VIAL IV PRN (19:58)
[2023-10-14] MEDS ORDERED: GLUCOSE 10 TAB/TUBE PO PRN (19:58)
[2023-10-14] MEDS ORDERED: MAGNESIUM HYDROXIDE SUSP 30 ML UDC PO PRN (19:58)
[2023-10-14] MEDS ORDERED: bisacodyL 10 MG SUPP PR PRN (19:58)
[2023-10-14] MEDS ORDERED: GLUCOSE 40% GEL 15 GM TUBE PO PRN (19:58)
[2023-10-14] MEDS ORDERED: DEXTROSE 50% 50 ML SYRINGE IV PRN (19:58)
[2023-10-14] MEDS ORDERED: CARBOHYDRATES FOR HYPOGLYCEMIA PO PRN (19:58)
[2023-10-14] MEDS: cloZAPine 100 MG TAB PO SCH (21:48)
[2023-10-14] MEDS: levETIRAcetam 250 MG TAB PO SCH (21:49)
[2023-10-14] MEDS: PHENYTOIN SODIUM ER 100 MG CAP PO SCH (21:49)
[2023-10-14] MEDS: FLUTICASONE PROPIONATE NA SPR 16 GM BTL SCH (21:50)
[2023-10-14] MEDS: DOCUSATE SODIUM/SENNA 50/8.6MG TAB PO SCH (21:50)
[2023-10-14] MEDS: ATORVASTATIN 40 MG TAB PO SCH (21:50)
[2023-10-14] MEDS: FAMOTIDINE 40 MG TABLET PO SCH (21:50)
[2023-10-14] MEDS: POLYETHYLENE (MIRALAX) 17 GM PACK PO SCH (21:51)
[2023-10-14] MEDS: INSULIN ASPART PER UNIT CHARGE SC SCH (22:09)
[2023-10-15 06:35] LABS: Basophils # (auto) 0.02 K/uL (0.00-0.20); Basophils % (auto) 0.4 %; Hematocrit (blood only) 39.2 % (37.0-47.0); Immature Granulocytes # (auto) 0.02 K/uL (0.01-0.20); Immature Granulocytes % (auto) 0.4 %; Lymphocytes # (auto) 1.61 K/uL (1.20-3.40); Mean Corpuscular Hemoglobin 30.9 pg (25.0-34.0); Mean Corpuscular Hgb Conc 33.2 g/dL (32.0-36.0); Mean Corpuscular Volume 93.1 fL (80.0-100.0); Mean Platelet Volume 11.3 fL (9.4-12.4); Monocytes # (auto) 0.42 K/uL (0.11-0.59); Monocytes % (auto) 9.1 %; Neutrophils # (auto) 2.53 K/uL (1.40-6.50); Neutrophils % (auto) 55.1 %; Platelet Count 132 K/uL (130-400); RDW Coefficient of Variation 13.6 % (11.5-14.5); RDW Standard Deviation 46.4 fL (36.4-46.3); Red Blood Count 4.21 M/uL (4.20-5.40)
[2023-10-15 06:36] LABS: Calcium 8.3 mg/dl (8.6-10.3); Potassium 4.1 mmol/L (3.5-5.1)
[2023-10-15 06:42] LABS: Creatinine Clr Calc Pharmacy 106.1 ml/min; Est GFR (African American) 121.1 ml/min; Est GFR (Non-African American) 104.5 ml/min
[2023-10-15] MEDS: CALCIUM 600MG + VIT D 400 IU TAB PO SCH (08:21)
[2023-10-15] MEDS: RIVAROXABAN 10 MG TABLET PO SCH (08:21)
[2023-10-15] MEDS: AMMONIUM LACTATE 12% LOTION 225 GM BTL EXT SCH (08:21)
[2023-10-15] MEDS: VITAMIN B COMPLEX TAB PO SCH (08:21)
--- NOTE | 2023-10-15 12:24 | Electrocardiogram Report ---
Test Reason : Blood Pressure : / mmHG Vent. Rate : 069 BPM Atrial Rate : 069 BPM P-R Int : 142 ms QRS Dur : 080 ms QT Int : 392 ms P-R-T Axes : 060 -23 039 degrees QTc Int : 420 ms Normal sinus rhythm Poor R wave progression, consider anterior [place] vs. lead placement vs. LVH Abnormal ECG When compared with ECG of 22-SEP-2023 10:18, PRWP now present Confirmed by Sahil Simmons ([id number]) on 10/15/2023 12:24:33 PM Referred By: REFERRED SELF Confirmed By:Sahil Simmons
--- NOTE | 2023-10-15 17:00 | Hospitalist Progress Note ---
Date of Service October 15, 2023 Assessment & Plan (1) Tibial plateau fracture, left: (2) Ambulatory dysfunction: (3) Intellectual delay: Plan Patient is 63 year old female with a PMH of seizures, ambulatory dysfunction, cognitive dysfunction, schizophrenia, DM II, and other medical problems presents [facility] with staff member due to needing placement while nonweightbearing. Ambulatory dysfunction Recent fall, prior to previous admission Left tibial plateau fracture - NWB status NWB x 12 weeks to LLE PT/OT Needs rehab placement Case management to help with discharge planning H/O Constipation Has chronic constipation issues continue bowel regimen Hyperglycemia H/O DM II Last HbA1c 5.3 hold p.o. medications Continue insulin while hospitalized Monitor blood glucose levels Hyperlipidemia on statin Seizure disorder Paranoid schizophrenia with auditory hallucinations Intellectual impairment Continue home medications Stable DVT Px: continue Xarelto Code Status: Full code Disposition SNF as able Case management to help with discharge planning Admission and Anticipated Discharge Date Admission Date: October 14, 2023 Subjective Patient is seen and examined at bedside Poor historian due to intellectual disability No distress on exam Offers no new complaints Waiting for Rehab placement Review of Systems Review of Systems: All systems reviewed & are unremarkable except as noted in Subjective Physical Exam Physical Exam: Physical Exam: Vitals signs as noted above General Appearance:Thin, chronic ill, no apparent distress Head: normocephalic, Atraumatic Eyes: normal inspection, EOMI Neck: supple, Trachea midline Respiratory/Chest: Decreased breath sounds, CTA, No accessory muscle use Cardiovascular: S1, S2, No murmur Abdomen/GI:Soft, Non tender, distended, Bowel sounds present Extremities/Musculoskeletal:normal inspection, Trace edema, Left Leg Cast Neurologic/Psych:AAOX2, grossly no focal neurological deficits, + Intellectual disability Skin: normal color, warm Results & Data Results & Data Vital Signs (Past 12 Hours) Vital Signs Temp Pulse Resp BP Pulse Ox O2 Del Method 10/15/23 14:28 36.9 C 73 18 110/69 97 Room Air 10/15/23 08:14 Room Air 10/15/23 07:11 36.6 C 62 16 110/70 100 Room Air Laboratory Results Short CBC 10/14/23 10/15/23 Range/Units 13:34 05:58 WBC 5.03 4.60 L (4.8-10.8) K/ul Hgb 13.2 13.0 (12.0-16.0) g/dl Hct 40.3 39.2 (37.0-47.0) % Plt Count 166 132 (130-400) K/uL BMP 10/14/23 10/15/23 13:34 05:58 Sodium 140 142 Potassium 4.3 4.1 Chloride 107 111 H Carbon Dioxide 28 24 BUN 18 15 Creatinine 0.49 L 0.50 L Glucose 143 H 87 Calcium 8.6 8.3 L Liver Function 10/14/23 Range/Units 13:34 Total Bilirubin 0.2 (0.2-1.0) mg/dl AST 27 (13-39) U/L ALT 35 (7-52) U/L Alkaline Phosphatase 115 H (34-104) U/L Albumin 3.8 (3.4-5.0) gm/dl (1) Tibial plateau fracture, left Encounter type: initial encounter Fracture type: closed Qualified Code(s): S82.142A - Displaced bicondylar fracture of left tibia, initial encounter for closed fracture
--- OUTSIDE RECORDS SUMMARY | 2023-10-15 20:43 | External Medical Summary ---
Author Name Unknown Address Unknown Organization [id number]:[facility] [place] [id number] Laboratory Report Ordering Provider Test Date Status FREDA REINA 10/14/2023 12:10:30 Final Observation Date Value Abnormality Reference (Units ) Status SYNC LEUKOCYTES IN BLOOD BY AUTOMATED COUNT 10/14/2023 12:10:30 5.66 4.00-10.80 (K/uL) Final Segs 10/14/2023 12:10:30 73.8 40.0-75.0 (%) Final Lymphs % 10/14/2023 12:10:30 16.4 Below low normal 18.0-42.0 (%) Final Monos 10/14/2023 12:10:30 9.4 1.0-11.0 (%) Final Eosinophils 10/14/2023 12:10:30 0.0 0.0-6.0 (%) Final Basos 10/14/2023 12:10:30 0.4 0.0-2.0 (%) Final Absolute Segs 10/14/2023 12:10:30 4.18 1.80-7.70 (K/uL) Final Lymphs, absolute 10/14/2023 12:10:30 0.93 Below low normal 1.00-4.80 (K/ul) Final Monos, Abs 10/14/2023 12:10:30 0.53 0.00-1.10 (K/uL) Final Eos, Abs 10/14/2023 12:10:30 0.00 0.00-0.70 (K/uL) Final Basos, Abs 10/14/2023 12:10:30 0.02 0.00-0.20 (K/uL) Final Performing Location [facility] [place] [id number]
--- OUTSIDE RECORDS SUMMARY | 2023-10-15 20:43 | External Medical Summary ---
Author Name Unknown Address Unknown Organization K09:[facility] [address] Laboratory Report Ordering Provider Test Date Status FREDA REINA 10/14/2023 12:10:30 Final Observation Date Value Abnormality Reference (Units ) Status WBC, Total 10/14/2023 12:10:30 5.66 4.00-10.8 0 (K/uL) Final RBC 10/14/2023 12:10:30 4.15 3.85-5.15 (M/uL) Final Hemoglobin 10/14/2023 12:10:30 12.8 12.0-15.3 (g/dL) Final HCT 10/14/2023 12:10:30 40.1 36.0-45.2 (%) Final MCV 10/14/2023 12:10:30 96.6 81.5-97.5 (fL) Final MCH 10/14/2023 12:10:30 30.8 27.0-34.0 (pg) Final MCHC 10/14/2023 12:10:30 31.9 32.0-36.0 (g/dL) Final RDW 10/14/2023 12:10:30 14.2 11.5-15.5 (%) Final Platelets 10/14/2023 12:10:30 170 140-400 (K /uL) Final MPV 10/14/2023 12:10:30 11.5 6.6-11.1 ( fL) Final Performing Location [facility] [place] [address]
--- OUTSIDE RECORDS SUMMARY | 2023-10-16 03:29 | External Medical Summary | Summary of Care ---
Author Name Unknown Organization [facility] Address [address] [place] [address] Phone [phone] Care Team Providers Care Assurance Manager Insurance Name Role Phone Dheeraj NORWOOD MD, Vitor Baird Primary Care Provider [phone] Reason for Visit * Reason Comments Outpatient Testing Encounter Details Date Type Department Care Team (Late st Contact Info) Description 10/14/2023 12:10 PM EDT Laboratory Laboratory [facility] [address] [place] [phone] [facility] [address] [facility] [address] Encounter for long-term (current) use of other medications; Type 2 diabetes mellitus with hemoglobin A1c goal of less than 7.0% (HCC); Schizophrenia ([facility]) Allergies Active Allergy Reactions Criticality Noted Date Comments Aspirin 08/05/2016 Depakote Er Unknown 09/12/2007 Salicylates Unknown 10/30/2003 aspirin documented as of this encounter (statuses as of 10/14/2023) Medications Medication Sig Dispensed Refills Start Date End Date Status LEVETIRACETAM 250 MG PO TABS 1 tab twwice daily Active Blood Glucose Monitoring Suppl (ONETOUCH ULTRA SYSTEM) W/DEVICE KITIndications:Type 2 diabetes mellitus with hemoglobin A1c goal of less than 7.0% (HCC) Use as directed 4 times a day as needed for Hyperglycemia (high sugar) or Hypoglycemia (low sugar). f E11.9 1 Kit 11/21/19 17 Active MEDICAL INSTRUCTIONSIndications: Type 2 diabetes mellitus with hemoglobin A1c goal of less than 7.0% ([facility]) Check glucose daily before supper. May skip on days of outings. May check if signs or symptoms of low blood sugar. (may refer to handout) 1 Each 1 02/27/20 17 Active Depend Pant Sm/MedIndications:Urinar y incontinence, unspecified [...] the morning and 2 Capsules before bedtime. Active Boost 100 Calorie Smart Oral Liquid DAILY IN THE MORNING 10/15/19 23 Active Famotidine 40 MG Oral Tablet (Pepcid) Take 1 Tablet by mouth at bedtime. 30 Tablet 12/08/19 23 Active Ammonium Lactate 12 % [...] goal of less than 7.0% ([facility]) TEST BLOOD SUGAR before breakfast and [...] 2 Tablets by mouth in the morning. Active Accu-Chek Safe-T Pro LancetsIndications:Type 2 diabetes mellitus with hemoglobin A1c goal of less than 7.0% (HCC) USE TO TEST BLOOD SUGAR twice DAILY FOR DM 200 Each 1 03/15/20 23 Active Atorvastatin Calcium 40 MG Oral Tablet (Lipitor)Indications:Pur e hypercholesterolemia TAKE 1 TABLET BY MOUTH AT BEDTIME (DX: FOR CHOLESTEROL) 31 Tablet 04/16/20 23 Active B Complex-C Oral Tablet [...] for Constipation. 30 Suppository 09/03/19 24 Active cloZAPine 200 MG Oral Tablet 1 tabs at night 10/14/19 24 Active Senna Plus 8.6-50 MG Oral Tablet Take 1 Tablet by mouth in the morning and 1 Tablet before bedtime. (hold for diarrhea). 180 Tablet 3 10/14/19 24 Active Xarelto 10 MG Oral Tablet Take 1 Tablet by mouth in the morning. 30 Tablet 11 10/14/19 24 Active documented as of this encounter (statuses as of 10/14/2023) Active Problems Problem Noted Date Diagnosed Date [...] as of this encounter (statuses as of 10/14/2023) Resolved Problems Problem Noted Date Diagnosed Date Resolved Date Constipation 09/10/2012 03/07/2018 Overview: ICD-10 update of inactive term ACTIVE CASE MANAGEMENT Keke Solis RN [phone] 01/25/2008 03/03/2010 Type 2 diabetes mellitus wit h hemoglobin A1c goal of less than 7.0% 10/30/2003 03/14/2009 Overview: Per Diabetes Taxonomy. ICD-10 update of inactive term Intellectual disability 10/30/200302/15 Overview: ICD-10 update of inactive term DM type 2, not at goal 10/30/200309/11 Psychotic disorder 10/30/2003 0 documented as of this encounter (statuses as of 10/14/2023) Immunizations Name Administration Dates Next Due COVID-19 mRNA, LNP-s, No Pre serve, 2-Dose Series (Moderna) 07/10/2020,06/12/2020 COVID-19, mRNA, LNP-s, PF, B ooster, 100mcg/0.5mg (Moderna) 09/18/2021,04/01/2021 Covid-19, Mrna, Lnp-s, Pf, B ivalent, 50 Mcg, IM, 12 yrs and above (Moderna) 03/11/2022 Hepatitis B, 20+ yrs 09/10/2014,03/08/2014,02/06 PPD 03/09/2022, 0,03/08/2019,03/04,02/14/2015,01/31/2013,01/25/2012 ,03/26/2010,09/21/2008 Pneumococcal Conjugate Vacci ne, 20-valent ([id number]) 03/09/2022 Pneumococcal Polysaccharide PPV23 (Pneumovax) 09/16/2005 Seasonal Influenza, PF, 6 M & above, IM , (FluLaval or Fluzone) 03/10/2023,02/04/2022,01/21/2021,03/11,01/25/2019,03/07/2018,02/26/2017 Seasonal Influenza, Quadriva lent, No Preserve, IM 02/24/2016,02/14/2015 Seasonal Influenza, Split, I IV3, With Preserve, Inj 02/06/2014,01/31/2013,02/18/2012,01/24,02/26/2011,03/26/2010,04/06/2009 ,03/27/2008,02/15/2007 TD, Preservative Free 03/08/2019,02/17/1999 TDAP, Age 7 and older, IM (Adacel) 09/23/2009 Zoster Vaccine Recombinant (Shingrix) 04/30/2020 ,12/19/2019,11/09/2019 [...] Care Team (Late st Contact Info) Description 10/19/2023 3:20 PM EDT Telemedicine Endocrinology, [place] [address] [place] [address] [place], Pharmacist Endocrinology [address] [place] [address] 10/28/2023 2:30 PM EDT Office Visit General Internal Medicine, [place], [facility] [address] [place] [address] Rose Almaguer MD [address] [place] [address] 11/05/2023 9:30 AM EDT Nutrition Services Nutrition, [facility] [address] [facility] [place] [address] Brenda Rosales RDN [address] [place] [address] 12/30/2023 11:15 AM EDT Imaging Radiology [facility] [address] [place] [address] 01/25/2024 2:00 PM EDT Telemedicine Endocrinology, [place] [address] [place] [address] Kristine Lopez CRNP [address] [facility] [place] [address] 02/09/2024 1:00 PM EDT Hospital Encounter ENDO [facility], Endoscopy Room [facility] [address] [place] [phone] Markell Marquez MD [address] [place] [address] 02/09/2024 1:00 PM EDT - 02/09/2024 1:30 PM EDT Surgery ENDO [facility], Endoscopy Room [facility] [address] [place] [phone] Markell Marquez MD [address] [place] [address] COLONOSCOPY FLEXIBLE PROXIMAL DIAGNOSTIC 02/15/2024 8:40 AM EDT Office Visit [facility] [place] [address] Delmy Jacobsen PA-C [address] [facility] [place] [address] 07/19/2024 10:30 AM EST Telemedicine Endocrinology, [place] [address] [place] [address] Carlita Louis PA-C [address] [place] [address] Pending Results Name Type Priority Associated Diagnoses Date /Time HEMOGLOBIN A1C Lab Routine Type 2 diabetes mellitus with hemoglobin A1c goal of less than 7.0% ([facility]) 10/14/2023 12:10 PM EDT CLOZAPINE Lab Routine Schizophrenia ([facility]) 10/14/2023 12:10 PM EDT Scheduled Procedures Name Priority Associated Diagnoses Date/Ti [...] 05/26/2022, Additional history exists Mammogram 01/22/2024 01/21/2023, 0910/2021, 01/13/2021, Additional history exists Diabetic Foot Exam 03/10/2024 03/10/2023, 0 11/06/2021, 03/11/2020, Additional history exists Diabetic Eye Exam 08/09/2024 08/10/2023, , 09/22/2017, Additional history exists GFR 10/01/2024 10/02/2023, 09/14, 07/14/2023, Additional history exists DXA Scan 04/06/2025 04/06/2023 [...] 09/10/2014, 02/15, 02/06/2014 Zoster Vaccines Completed 04/30/2020, 080 08/2019, 11/09/2019 Pneumococcal Vaccine: Pediatrics (0 to 5 Years) and At-Risk Patients (6 to 64 Years) Completed 03/09/2022, 09/16/2005 VITAMIN D LEVEL ONCE IN A LIFETIME-USE SMARTSET# [id number] Completed 10/23/2022, 07/23/2022 Influenza Vaccine (FLU shot) [...] Date/Time Associated Diagnosis Comments DIFFERENTIAL, AUTOMATED Routine 10/14/2023 12:10 PM EDT Encounter for long-term (current) use of other medications CBC Routine 10/14/2023 12:10 PM EDT Encounter for long-term (current) use of other medications CBC Routine 10/14/2023 12:10 PM EDT Encounter for long-term (current) use of other medications documented in this encounter Results * (ABNORMAL) DIFFERENTIAL, AUTOMATED (10/14/2023 12:10 PM EDT) WBC 5.66 4.00 - 10.80 K/uL 10/14/2023 12:22 PM EDT LABORATORY [facility] 56-02 Neutrophils % 73.8 40.0 - 75.0 % 10/14/2023 12:22 PM EDT LABORATORY [place] 56-02 Lymphocytes % 16.4(L) 18.0 - 42.0 % 10/14/2023 12:22 PM EDT LABORATORY [facility] 56-02 Monocytes % 9.4 1.0 - 11.0 % 10/14/2023 12:22 PM EDT LABORATORY [facility] 56-02 Eosinophils % 0.0 0.0 - 6.0 % 10/14/2023 12:22 PM EDT LABORATORY [facility] 56-02 Basophils % 0.4 0.0 - 2.0 % 10/14/2023 12:22 PM EDT LABORATORY [facility] 56-02 Absolute Neutrophils 4.18 1.80 - 7.70 K/uL 10/14/2023 12:22 PM EDT LABORATORY [facility] 56-02 Absolute Lymphocytes 0.93(L) 1.00 - 4.80 K/ul 10/14/2023 12:22 PM EDT LABORATORY [place] 56-02 Absolute Monocytes 0.53 0.00 - 1.10 K/uL 10/14/2023 12:22 PM EDT [address] Absolute Eosinophils 0.00 0.00 - 0.70 K/uL 10/14/2023 12:22 PM EDT [address] Absolute Basophils 0.02 0.00 - 0.20 K/uL 10/14/2023 12:22 PM EDT [facility] 56 Blood Venous blood specimen / Unknown Venipuncture / Unknown 10/14/2023 12:10 PM EDT 10/14/2023 12:10 PM EDT Betsy Marroquin MD LAB BLOOD ORDERAB LES [address] [place] [address] * CBC (10/14/2023 12:10 PM EDT) WBC 5.66 4.00 - 10.80 K/uL 10/14/2023 12:22 PM EDT [address] RBC 4.15 3.85 - 5.15 M/uL 10/14/2023 12:22 PM EDT [address] HGB 12.8 12.0 - 15.3 g/dL 10/14/2023 12:22 PM EDT [address] HCT 40.1 36.0 - 45.2 % 10/14/2023 12:22 PM EDT [address] MCV 96.6 81.5 - 97.5 fL 10/14/2023 12:22 PM EDT [address] MCH 30.8 27.0 - 34.0 pg 10/14/2023 12:22 PM EDT [address] MCHC 31.9 32.0 - 36.0 g/dL 10/14/2023 12:22 PM EDT [address] RDW 14.2 11.5 - 15.5 % 10/14/2023 12:22 PM EDT [address] PLT 170 140 - 400 K/uL 10/14/2023 12:22 PM EDT [address] MPV 11.5 6.6 - 11.1 fL 10/14/2023 12:22 PM EDT [facility] Blood Venous blood specimen / Unknown Venipuncture / Unknown 10/14/2023 12:10 PM EDT 10/14/2023 12:10 PM EDT Betsy Marroquin MD LAB BLOOD ORDERAB LES [facility] [address] [facility] [address] documented in this encounter Visit Diagnoses Diagnosis Encounter for long-term (current) use of other medications Type 2 diabetes mellitus with hemoglobin A1c goal of less than 7.0% (HCC) Schizophrenia (HCC) Unspecified schizophrenia, unspecified condition Special screening for malignant neoplasms, colon documented in this encounter Care Teams Assurance Manager Insurance Relationship Specialty Start Date End Date Vitor Esqueda III, MD [address] [facility] [address] PCP - General Family Medicine 07/20/18 documented as of this encounter
--- NOTE | 2023-10-16 17:55 | Hospitalist Progress Note ---
Date of Service October 16, 2023 Assessment & Plan (1) Tibial plateau fracture, left: (2) Ambulatory dysfunction: (3) Intellectual delay: Plan Patient is 63 year old female with a PMH of seizures, ambulatory dysfunction, cognitive dysfunction, schizophrenia, DM II, and other medical problems presents from [facility] with staff member due to needing placement while nonweightbearing. Ambulatory dysfunction Recent fall, prior to previous admission Left tibial plateau fracture - NWB status NWB x 12 weeks to LLE PT/OT Fall precautions Plan to discharge to rehab facility when accepted H/O Constipation Has chronic constipation issues continue bowel regimen Hyperglycemia H/O DM II Last HbA1c 5.3 hold p.o. medications Continue insulin while hospitalized Monitor blood glucose levels Hyperlipidemia on statin Seizure disorder Paranoid schizophrenia with auditory hallucinations Intellectual impairment Continue home medications Stable DVT Px: continue Xarelto Code Status: Full code Disposition SNF as able Case management to help with discharge planning Admission and Anticipated Discharge Date Admission Date: October 14, 2023 Subjective Patient is seen and examined at bedside Poor historian due to intellectual disability No new complaints Waiting for Rehab placement Review of Systems Review of Systems: All systems reviewed & are unremarkable except as noted in Subjective Physical Exam 2 Physical Exam: Physical Exam: Vitals signs as noted above General Appearance:Thin, chronic ill, no apparent distress Head: normocephalic, Atraumatic Eyes: normal inspection, EOMI Neck: supple, Trachea midline Respiratory/Chest: Decreased breath sounds, CTA, No accessory muscle use Cardiovascular: S1, S2, No murmur Abdomen/GI:Soft, Non tender, distended, Bowel sounds present Extremities/Musculoskeletal:normal inspection, Trace edema, Left Leg Cast Neurologic/Psych:AAOX2, grossly no focal neurological deficits, + Intellectual disability Skin: normal color, warm Results & Data Results & Data Vital Signs (Past 12 Hours) Vital Signs Temp Pulse Resp BP Pulse Ox O2 Del Method 10/16/23 14:27 37 C 71 16 109/68 98 Room Air 10/16/23 07:25 Room Air 10/16/23 07:00 36.3 C L 64 14 119/72 99 Room Air (1) Tibial plateau fracture, left Encounter type: initial encounter Fracture type: closed Qualified Code(s): S82.142A - Displaced bicondylar fracture of left tibia, initial encounter for closed fracture
--- NOTE | 2023-10-17 16:22 | Hospitalist Progress Note ---
Date of Service October 17, 2023 Assessment & Plan (1) Tibial plateau fracture, left: (2) Ambulatory dysfunction: (3) Intellectual delay: Plan Patient is 63 year old female with a PMH of seizures, ambulatory dysfunction, cognitive dysfunction, schizophrenia, DM II, and other medical problems presents from [facility] with staff member due to needing placement while nonweightbearing. Ambulatory dysfunction Recent fall, prior to previous admission Left tibial plateau fracture - NWB status NWB x 12 weeks to LLE PT/OT Fall precautions Plan to discharge to rehab facility when accepted Stable for discharge H/O Constipation Has chronic constipation issues continue bowel regimen Hyperglycemia H/O DM II Last HbA1c 5.3 hold p.o. medications Continue insulin while hospitalized Monitor blood glucose levels Hyperlipidemia on statin Seizure disorder Paranoid schizophrenia with auditory hallucinations Intellectual impairment Continue home medications Stable DVT Px: continue Xarelto Code Status: Full code Disposition SNF as able Case management to help with discharge planning Admission and Anticipated Discharge Date Admission Date: October 14, 2023 Subjective Patient is seen and examined at bedside Poor historian due to intellectual disability Reports having some leg pain at fracture site Denies any abdominal pain, chest pain, dyspnea No distress on exam Waiting for Rehab placement Review of Systems Review of Systems: All systems reviewed & are unremarkable except as noted in Subjective Physical Exam Physical Exam: Physical Exam: Vitals signs as noted above General Appearance:Thin, chronic ill, no apparent distress Head: normocephalic, Atraumatic Eyes: normal inspection, EOMI Neck: supple, Trachea midline Respiratory/Chest: Decreased breath sounds, CTA, No accessory muscle use Cardiovascular: S1, S2, No murmur Abdomen/GI:Soft, Non tender, distended, Bowel sounds present Extremities/Musculoskeletal:normal inspection, Trace edema, Left Leg Cast Neurologic/Psych:AAOX2, grossly no focal neurological deficits, + Intellectual disability Skin: normal color, warm Results & Data Results & Data Vital Signs (Past 12 Hours) Vital Signs Temp Pulse Resp BP Pulse Ox O2 Del Method 10/17/23 15:56 36.5 C 65 18 104/65 98 Room Air 10/17/23 07:07 36.4 C L 63 16 112/68 99 Room Air (1) Tibial plateau fracture, left Encounter type: initial encounter Fracture type: closed Qualified Code(s): S82.142A - Displaced bicondylar fracture of left tibia, initial encounter for closed fracture
--- NOTE | 2023-10-18 17:51 | Hospitalist Progress Note ---
Date of Service October 18, 2023 Assessment & Plan (1) Tibial plateau fracture, left: (2) Ambulatory dysfunction: (3) Intellectual delay: Plan Patient is 63 year old female with a PMH of seizures, ambulatory dysfunction, cognitive dysfunction, schizophrenia, DM II, and other medical problems presents from [facility] with staff member due to needing placement while nonweightbearing. Ambulatory dysfunction Recent fall, prior to previous admission Left tibial plateau fracture - NWB status NWB x 12 weeks to LLE PT/OT Fall precautions Stable for discharge Waiting for placement H/O Constipation Has chronic constipation issues continue bowel regimen Hyperglycemia H/O DM II Last HbA1c 5.3 hold p.o. medications Continue insulin while hospitalized Monitor blood glucose levels Hyperlipidemia on statin Seizure disorder Paranoid schizophrenia with auditory hallucinations Intellectual impairment Continue home medications Stable DVT Px: continue Xarelto Code Status: Full code Disposition SNF as able Case management to help with discharge planning Admission and Anticipated Discharge Date Admission Date: October 14, 2023 Subjective Patient is seen and examined at bedside Poor historian due to intellectual disability Offers no new complaints States feeling well today Denies any abdominal pain, chest pain, dyspnea Review of Systems Review of Systems: All systems reviewed & are unremarkable except as noted in Subjective Physical Exam Physical Exam: Physical Exam: Vitals signs as noted above General Appearance:Thin, chronic ill, no apparent distress Head: normocephalic, Atraumatic Eyes: normal inspection, EOMI Neck: supple, Trachea midline Respiratory/Chest: Decreased breath sounds, CTA, No accessory muscle use Cardiovascular: S1, S2, No murmur Abdomen/GI:Soft, Non tender, distended, Bowel sounds present Extremities/Musculoskeletal:normal inspection, Trace edema, Left Leg Cast Neurologic/Psych:AAOX2, grossly no focal neurological deficits, + Intellectual disability Skin: normal color, warm Results & Data Results & Data Vital Signs (Past 12 Hours) Vital Signs Temp Pulse Resp BP Pulse Ox O2 Del Method 10/18/23 15:32 36.6 C 77 16 106/68 96 Room Air 10/18/23 07:10 36.4 C L 66 14 123/76 98 Room Air (1) Tibial plateau fracture, left Encounter type: initial encounter Fracture type: closed Qualified Code(s): S82.142A - Displaced bicondylar fracture of left tibia, initial encounter for closed fracture
[2023-10-19] MEDS: bisacodyL 10 MG SUPP PR ONE (13:04)
--- NOTE | 2023-10-19 16:15 | Hospitalist Progress Note ---
Date of Service October 19, 2023 Assessment & Plan (1) Tibial plateau fracture, left: (2) Ambulatory dysfunction: (3) Intellectual delay: Plan Patient is 63 year old female with a PMH of seizures, ambulatory dysfunction, cognitive dysfunction, schizophrenia, DM II, and other medical problems presents from [facility] with staff member due to needing placement while nonweightbearing. Ambulatory dysfunction Recent fall, prior to previous admission Left tibial plateau fracture - NWB status NWB x 12 weeks to LLE PT/OT Fall precautions Stable for discharge Waiting for placement Fall precautions H/O Constipation Has chronic constipation issues continue bowel regimen Will give a dose of Dulcolax today Hyperglycemia H/O DM II Last HbA1c 5.3 hold p.o. medications Continue insulin while hospitalized Monitor blood glucose levels Hyperlipidemia on statin Seizure disorder Paranoid schizophrenia with auditory hallucinations Intellectual impairment Continue home medications Stable DVT Px: continue Xarelto Code Status: Full code Disposition SNF as able Case management to help with discharge planning Admission and Anticipated Discharge Date Admission Date: October 14, 2023 Subjective Patient is seen and examined at bedside Poor historian due to intellectual disability No distress on exam Denies any abdominal pain, chest pain, dyspnea No BM today Review of Systems Review of Systems: Other Physical Exam Physical Exam: Physical Exam: Vitals signs as noted above General Appearance:Thin, chronic ill, no apparent distress Head: normocephalic, Atraumatic Eyes: normal inspection, EOMI Neck: supple, Trachea midline Respiratory/Chest: Decreased breath sounds, CTA, No accessory muscle use Cardiovascular: S1, S2, No murmur Abdomen/GI:Soft, Non tender, Bowel sounds present Extremities/Musculoskeletal:normal inspection, Trace edema, Left Leg Cast Neurologic/Psych:AAOX2, grossly no focal neurological deficits, + Intellectual disability Skin: normal color, warm Results & Data Results & Data Vital Signs (Past 12 Hours) Vital Signs Temp Pulse Resp BP Pulse Ox O2 Del Method 10/19/23 15:11 37.2 C 82 107/69 96 Room Air 10/19/23 07:04 36.6 C 69 18 118/69 97 Room Air (1) Tibial plateau fracture, left Encounter type: initial encounter Fracture type: closed Qualified Code(s): S82.142A - Displaced bicondylar fracture of left tibia, initial encounter for closed fracture
[2023-10-20 08:17] LABS: BUN Creatinine Ratio 36.9 (10-20); Calcium 8.5 mg/dl (8.6-10.3); Creatinine Clr Calc Pharmacy 81.6 ml/min; Est GFR (African American) 111.1 ml/min; Est GFR (Non-African American) 95.8 ml/min
--- NOTE | 2023-10-20 08:43 | Hospitalist Progress Note ---
Date of Service October 20, 2023 Assessment & Plan (1) Tibial plateau fracture, left: (2) Ambulatory dysfunction: (3) Intellectual delay: Plan Patient is 63 yo F with a PMH of seizures, ambulatory dysfunction, cognitive dysfunction, schizophrenia, DM II, and other medical problems presents from [facility] with staff member due to needing placement while nonweightbearing. Ambulatory dysfunction Recent fall, prior to previous admission Left tibial plateau fracture - NWB status NWB x 12 weeks to LLE PT/OT Fall precautions Stable for discharge Waiting for placement Fall precautions H/O Constipation Has chronic constipation issues continue bowel regimen Hyperglycemia H/O DM II Last HbA1c 5.3 hold p.o. medications Continue insulin while hospitalized Monitor blood glucose levels Hyperlipidemia on statin Seizure disorder Paranoid schizophrenia with auditory hallucinations Intellectual impairment Continue home medications Stable DVT Px: continue Xarelto Code Status: Full code Disposition SNF as able Case management to help with discharge planning Admission and Anticipated Discharge Date Admission Date: October 14, 2023 Subjective Patient is seen and examined at bedside Poor historian due to intellectual disability No distress on exam Denies any abdominal pain, chest pain, dyspnea Review of Systems Review of Systems: All systems reviewed & are unremarkable except as noted in Subjective Physical Exam Physical Exam: General Appearance:Thin, chronically ill appearing F in NAD Head: NC/AT Eyes: normal inspection, EOMI Neck: supple Respiratory/Chest: Decreased breath sounds, CTA, No accessory muscle use Cardiovascular: S1, S2, No murmur Abdomen/GI:Soft, Non tender, Bowel sounds present Extremities/Musculoskeletal:normal inspection, Trace edema, Left Leg Cast Neurologic/Psych:AAOX2, + Intellectual disability, speech slow but answers simple questions appropriately, moves extremities Skin: warm, dry Results & Data Results & Data Vital Signs (Past 12 Hours) Vital Signs Temp Pulse Resp BP Pulse Ox O2 Del Method 10/20/23 07:31 36.6 C 69 18 106/67 96 Room Air Laboratory Results 10/20/23 10/20/23 10/20/23 Range/Units 11:48 07:28 07:26 Sodium 140 (136-145) mmol/L Potassium 4.0 (3.5-5.1) mmol/L Chloride 107 (98-107) mmol/L Carbon Dioxide 27 (21-32) mmol/L Anion Gap 6 (3-11) BUN 24 H (6-23) mg/dl Creatinine 0.65 (0.6-1.2) mg/dl Est Cr Clr Drug Dosing 81.6 ml/min Est GFR ( Amer) 111.1 ml/min Est GFR (Non-Af Amer) 95.8 ml/min BUN/Creatinine Ratio 36.9 H (10-20) Glucose 112 H (70-99(Fasting)) mg/dl POC Glucose 196 H 107 H (70-99) mg/dl Calcium 8.5 L (8.6-10.3) mg/dl 10/19/23 10/19/23 Range/Units 20:19 16:41 Sodium (136-145) mmol/L Potassium (3.5-5.1) mmol/L Chloride (98-107) mmol/L Carbon Dioxide (21-32) mmol/L Anion Gap (3-11) BUN (6-23) mg/dl Creatinine (0.6-1.2) mg/dl Est Cr Clr Drug Dosing ml/min Est GFR ( Amer) ml/min Est GFR (Non-Af Amer) ml/min BUN/Creatinine Ratio (10-20) Glucose (70-99(Fasting)) mg/dl POC Glucose 141 H 141 H (70-99) mg/dl Calcium (8.6-10.3) mg/dl Medications Administered Current Inpatient Medications Acetaminophen (Acetaminophen 325 Mg Tab) 650 mg PO Q4H PRN PRN Reason: pain/fever Stop: 11/13/23 19:57 Al Hydrox/Mg Hydrox/Simethicone (Aluminum/Magnesium Susp 30 Ml Udc) 30 ml PO Q6H PRN PRN Reason: Dyspepsia Stop: 11/13/23 19:57 Atorvastatin Calcium (Atorvastatin 40 Mg Tab) 40 mg PO [facility] Stop: 11/13/23 20:59 Last Admin: 10/19/23 20:49 Dose: 40 mg Bisacodyl (Bisacodyl 10 Mg Supp) 10 mg [place] DAILY PRN PRN Reason: constipation Stop: 11/13/23 19:57 Calcium/Vitamin D (Calcium 600mg + Vit D 400 Iu Tab) [facility]: 11/14/23 08:59 Last Admin: 10/20/23 08:27 Dose: 2 tab Clozapine (Clozapine 100 Mg Tab) 200 mg PO [facility]; Protocol Stop: 11/13/23 21:29 Last Admin: 10/19/23 20:49 Dose: 200 mg Dextrose (Dextrose 50% 50 Ml Syringe) 25 - 50 ml IV UD PRN; Protocol PRN Reason: Hypoglycemia Protocol Stop: 11/13/23 19:57 Famotidine (Famotidine 40 Mg Tablet) 40 mg PO HS [facility] Stop: 11/13/23 20:59 Last Admin: 10/19/23 20:49 Dose: 40 mg Fluticasone Propionate (Fluticasone Propionate Na Spr 16 Gm Btl) 2 sprays NA HS [facility] Stop: 11/13/23 20:59 Last Admin: 10/19/23 20:48 Dose: 2 sprays Glucagon (Glucagon For Inj 1 Mg Vial) 1 mg SQ UD PRN; Protocol PRN Reason: Hypoglycemia Protocol Stop: 11/13/23 19:57 Glucose (Glucose 40% Gel 15 Gm Tube) 15 - 30 gm PO UD PRN; Protocol PRN Reason: Hypoglycemia Protocol Stop: 11/13/23 19:57 Glucose (Glucose 10 Tab/Tube) 4 - 8 tab PO UD PRN; Protocol PRN Reason: Hypoglycemia Treatment Stop: 11/13/23 19:57 Insulin Aspart (Insulin Aspart Per Unit Charge) 0 units SC ACHS [facility] Stop: 11/13/23 20:59 Last Admin: 10/20/23 08:29 Dose: 3 units Lactic Acid (Ammonium Lactate 12% Lotion 225 Gm Btl) 1 gm EXT QAM [facility] Stop: 11/14/23 08:59 Last Admin: 10/20/23 08:25 Dose: 1 gm Levetiracetam (Levetiracetam 250 Mg Tab) 250 mg PO BID [facility] Stop: 11/13/23 20:59 Last Admin: 10/20/23 08:25 Dose: 250 mg Magnesium Hydroxide (Magnesium Hydroxide Susp 30 Ml Udc) 30 ml PO Q6H PRN PRN Reason: Constipation Stop: 11/13/23 19:57 Miscellaneous (Carbohydrates For Hypoglycemia ) 15 - 30 gm PO UD PRN PRN Reason: Hypoglycemia Protocol Stop: 11/13/23 19:57 Ondansetron HCl (Ondansetron Inj 2 Mg/Ml 2 Ml Vial) 4 mg IV Q6H PRN PRN Reason: Nausea Stop: 11/13/23 19:57 Phenytoin Sodium (Phenytoin Sodium Er 100 Mg Cap) 200 mg PO BID [facility] Stop: 11/13/23 20:59 Last Admin: 10/20/23 08:26 Dose: 200 mg Polyethylene Glycol (Polyethylene (Miralax) 17 Gm Pack) 17 gm PO DAILY PRN PRN Reason: Constipation Stop: 11/13/23 19:57 Polyethylene Glycol (Polyethylene (Miralax) 17 Gm Pack) 17 gm PO BID [facility] Stop: 11/13/23 20:59 Last Admin: 10/20/23 08:28 Dose: 17 gm Rivaroxaban (Rivaroxaban 10 Mg Tablet) 10 mg PO QAM [facility] Stop: 11/14/23 08:59 Last Admin: 10/20/23 08:26 Dose: 10 mg Senna/Docusate Sodium (Docusate Sodium/Senna 50/8.6mg Tab) 1 tab PO BID [facility] Stop: 11/13/23 20:59 Last Admin: 10/20/23 08:27 Dose: 1 tab Triamcinolone Acetonide (Triamcinolone Acet 0.1% Cr 15 Gm Tube) 1 appln TOP BID PRN PRN Reason: Rash Stop: 11/13/23 19:57 Vitamin B Complex (Vitamin B Complex Tab) 1 tab PO QAM [facility] Stop: 11/14/23 08:59 Last Admin: 10/20/23 08:26 Dose: 1 tab (1) Tibial plateau fracture, left Encounter type: initial encounter Fracture type: closed Qualified Code(s): S82.142A - Displaced bicondylar fracture of left tibia, initial encounter for closed fracture
--- NOTE | 2023-10-21 13:51 | Hospitalist Progress Note ---
Date of Service October 21, 2023 Assessment & Plan (1) Tibial plateau fracture, left: (2) Ambulatory dysfunction: (3) Intellectual delay: Plan Patient is 63 yo F with a PMH of seizures, ambulatory dysfunction, cognitive dysfunction, schizophrenia, DM II, and other medical problems presents from [facility] with staff member due to needing placement while nonweightbearing. Ambulatory dysfunction Recent fall, prior to previous admission Left tibial plateau fracture - NWB status NWB x 12 weeks to LLE PT/OT Fall precautions Stable for discharge Waiting for placement Fall precautions H/O Constipation Has chronic constipation issues continue bowel regimen Hyperglycemia H/O DM II Last HbA1c 5.3 hold p.o. medications Continue insulin while hospitalized Monitor blood glucose levels Hyperlipidemia on statin Seizure disorder Paranoid schizophrenia with auditory hallucinations Intellectual impairment Continue home medications Stable DVT Px: continue Xarelto Code Status: Full code Disposition SNF as able Case management to help with discharge planning Admission and Anticipated Discharge Date Admission Date: October 14, 2023 Subjective Patient is seen and examined at bedside Poor historian due to intellectual disability No distress on exam Denies any abdominal pain, chest pain, dyspnea Review of Systems Review of Systems: All systems reviewed & are unremarkable except as noted in Subjective Physical Exam Physical Exam: General Appearance:Thin, chronically ill appearing F in NAD Head: NC/AT Eyes: normal inspection, EOMI Neck: supple Respiratory/Chest: Decreased breath sounds, CTA, No accessory muscle use Cardiovascular: S1, S2, No murmur Abdomen/GI:Soft, Non tender, Bowel sounds present Extremities/Musculoskeletal:normal inspection, Trace edema, Left Leg Cast Neurologic/Psych:AAOX2, + Intellectual disability, speech slow but answers simple questions appropriately, moves extremities Skin: warm, dry Results & Data Results & Data Vital Signs (Past 12 Hours) Vital Signs Temp Pulse Resp BP Pulse Ox O2 Del Method 10/21/23 08:00 Room Air 10/21/23 07:25 36.3 C L 59 L 16 106/70 96 Room Air Medications Administered Current Inpatient Medications Acetaminophen (Acetaminophen 325 Mg Tab) 650 mg PO Q4H PRN PRN Reason: pain/fever Stop: 11/13/23 19:57 Al Hydrox/Mg Hydrox/Simethicone (Aluminum/Magnesium Susp 30 Ml Udc) 30 ml PO Q6H PRN PRN Reason: Dyspepsia Stop: 11/13/23 19:57 Atorvastatin Calcium (Atorvastatin 40 Mg Tab) 40 mg PO HS [facility] Stop: 11/13/23 20:59 Last Admin: 10/20/23 21:09 Dose: 40 mg Bisacodyl (Bisacodyl 10 Mg Supp) 10 mg [place] DAILY PRN PRN Reason: constipation Stop: 11/13/23 19:57 Calcium/Vitamin D (Calcium 600mg + Vit D 400 Iu Tab) 2 tab PO QAM [facility] Stop: 11/14/23 08:59 Last Admin: 10/21/23 08:29 Dose: 2 tab Clozapine (Clozapine 100 Mg Tab) 200 mg PO HS [facility]; Protocol Stop: 11/13/23 21:29 Last Admin: 10/20/23 21:09 Dose: 200 mg Dextrose (Dextrose 50% 50 Ml Syringe) 25 - 50 ml IV UD PRN; Protocol PRN Reason: Hypoglycemia Protocol Stop: 11/13/23 19:57 Famotidine (Famotidine 40 Mg Tablet) 40 mg PO [facility] Stop: 11/13/23 20:59 Last Admin: 10/20/23 21:10 Dose: 40 mg Fluticasone Propionate (Fluticasone Propionate Na Spr 16 Gm Btl) 2 sprays NA [facility] Stop: 11/13/23 20:59 Last Admin: 10/20/23 21:10 Dose: 2 sprays Glucagon (Glucagon For Inj 1 Mg Vial) 1 mg SQ UD PRN; Protocol PRN Reason: Hypoglycemia Protocol Stop: 11/13/23 19:57 Glucose (Glucose 40% Gel 15 Gm Tube) 15 - 30 gm PO UD PRN; Protocol PRN Reason: Hypoglycemia Protocol Stop: 11/13/23 19:57 Glucose (Glucose 10 Tab/Tube) 4 - 8 tab PO UD PRN; Protocol PRN Reason: Hypoglycemia Treatment Stop: 11/13/23 19:57 Insulin Aspart (Insulin Aspart Per Unit Charge) 0 units SC ACHS [facility] Stop: 11/13/23 20:59 Last Admin: 10/21/23 12:18 Dose: 3 units Lactic Acid (Ammonium Lactate 12% Lotion 225 Gm Btl) 1 gm EXT QAM [facility] Stop: 11/14/23 08:59 Last Admin: 10/21/23 08:29 Dose: 1 gm Levetiracetam (Levetiracetam 250 Mg Tab) 250 mg PO BID [facility] Stop: 11/13/23 20:59 Last Admin: 10/21/23 08:29 Dose: 250 mg Magnesium Hydroxide (Magnesium Hydroxide Susp 30 Ml Udc) 30 ml PO Q6H PRN PRN Reason: Constipation Stop: 11/13/23 19:57 Miscellaneous (Carbohydrates For Hypoglycemia ) 15 - 30 gm PO UD PRN PRN Reason: Hypoglycemia Protocol Stop: 11/13/23 19:57 Ondansetron HCl (Ondansetron Inj 2 Mg/Ml 2 Ml Vial) 4 mg IV Q6H PRN PRN Reason: Nausea Stop: 11/13/23 19:57 Phenytoin Sodium (Phenytoin Sodium Er 100 Mg Cap) 200 mg PO BID [facility] Stop: 11/13/23 20:59 Last Admin: 10/21/23 08:29 Dose: 200 mg Polyethylene Glycol (Polyethylene (Miralax) 17 Gm Pack) 17 gm PO DAILY PRN PRN Reason: Constipation Stop: 11/13/23 19:57 Polyethylene Glycol (Polyethylene (Miralax) 17 Gm Pack) 17 gm PO BID [facility] Stop: 11/13/23 20:59 Last Admin: 10/21/23 08:30 Dose: 17 gm Rivaroxaban (Rivaroxaban 10 Mg Tablet) 10 mg PO QAM [facility] Stop: 11/14/23 08:59 Last Admin: 10/21/23 08:30 Dose: 10 mg Senna/Docusate Sodium (Docusate Sodium/Senna 50/8.6mg Tab) 1 tab PO BID [facility] Stop: 11/13/23 20:59 Last Admin: 10/21/23 08:29 Dose: 1 tab Triamcinolone Acetonide (Triamcinolone Acet 0.1% Cr 15 Gm Tube) 1 appln TOP BID PRN PRN Reason: Rash Stop: 11/13/23 19:57 Vitamin B Complex (Vitamin B Complex Tab) 1 tab PO QAM [facility] Stop: 11/14/23 08:59 Last Admin: 10/21/23 08:30 Dose: 1 tab (1) Tibial plateau fracture, left Encounter type: initial encounter Fracture type: closed Qualified Code(s): S82.142A - Displaced bicondylar fracture of left tibia, initial encounter for closed fracture
[2023-10-22 06:51] LABS: Basophils # (auto) 0.02 K/uL (0.00-0.20); Basophils % (auto) 0.4 %; Hematocrit (blood only) 38.5 % (37.0-47.0); Hemoglobin 13.2 g/dl (12.0-16.0); Immature Granulocytes # (auto) 0.02 K/uL (0.01-0.20); Immature Granulocytes % (auto) 0.4 %; Lymphocytes # (auto) 1.37 K/uL (1.20-3.40); Lymphocytes % (auto) 25.3 %; Mean Corpuscular Hemoglobin 30.9 pg (25.0-34.0); Mean Corpuscular Hgb Conc 34.3 g/dL (32.0-36.0); Mean Corpuscular Volume 90.2 fL (80.0-100.0); Mean Platelet Volume 12.1 fL (9.4-12.4); Monocytes # (auto) 0.48 K/uL (0.11-0.59); Monocytes % (auto) 8.9 %; Neutrophils # (auto) 3.52 K/uL (1.40-6.50); Platelet Count 131 K/uL (130-400); Red Blood Count 4.27 M/uL (4.20-5.40); White Blood Count 5.41 K/ul (4.8-10.8)
--- NOTE | 2023-10-22 16:29 | Hospitalist Progress Note ---
Date of Service October 22, 2023 Assessment & Plan (1) Tibial plateau fracture, left: (2) Ambulatory dysfunction: (3) Intellectual delay: Plan Patient is 63 yo F with a PMH of seizures, ambulatory dysfunction, cognitive dysfunction, schizophrenia, DM II, and other medical problems presents from [facility] with staff member due to needing placement while nonweightbearing. Ambulatory dysfunction Recent fall, prior to previous admission Left tibial plateau fracture - NWB status NWB x 12 weeks to LLE PT/OT Fall precautions Stable for discharge Waiting for placement Fall precautions H/O Constipation Has chronic constipation issues continue bowel regimen Hyperglycemia H/O DM II Last HbA1c 5.3 hold p.o. medications Continue insulin while hospitalized Monitor blood glucose levels Hyperlipidemia on statin Seizure disorder Paranoid schizophrenia with auditory hallucinations Intellectual impairment Continue home medications Stable DVT Px: continue Xarelto Code Status: Full code Disposition SNF as able Case management to help with discharge planning Admission and Anticipated Discharge Date Admission Date: October 14, 2023 Subjective Patient is seen and examined at bedside Poor historian due to intellectual disability No distress on exam Denies any abdominal pain, chest pain, dyspnea Review of Systems Review of Systems: All systems reviewed & are unremarkable except as noted in Subjective Physical Exam Physical Exam: General Appearance:Thin, chronically ill appearing F in NAD Head: NC/AT Eyes: normal inspection, EOMI Neck: supple Respiratory/Chest: Decreased breath sounds, CTA, No accessory muscle use Cardiovascular: S1, S2, No murmur Abdomen/GI:Soft, Non tender, Bowel sounds present Extremities/Musculoskeletal:normal inspection, Trace edema, Left Leg Cast Neurologic/Psych:AAOX2, + Intellectual disability, speech slow but answers simple questions appropriately, moves extremities Skin: warm, dry Results & Data Results & Data Vital Signs (Past 12 Hours) Vital Signs Temp Pulse Resp BP Pulse Ox O2 Del Method 10/22/23 15:44 36.4 C L 76 16 129/67 95 Room Air 10/22/23 09:25 Room Air 10/22/23 06:50 36.7 C 69 16 96/58 L 96 Room Air (1) Tibial plateau fracture, left Encounter type: initial encounter Fracture type: closed Qualified Code(s): S82.142A - Displaced bicondylar fracture of left tibia, initial encounter for closed fracture
--- NOTE | 2023-10-23 09:06 | Hospitalist Progress Note ---
Date of Service October 23, 2023 Assessment & Plan (1) Tibial plateau fracture, left: (2) Ambulatory dysfunction: (3) Intellectual delay: Plan Patient is 63 yo F with a PMH of seizures, ambulatory dysfunction, cognitive dysfunction, schizophrenia, DM II, and other medical problems presents from [facility] with staff member due to needing placement while nonweightbearing. Ambulatory dysfunction Recent fall, prior to previous admission Left tibial plateau fracture - NWB status NWB x 12 weeks to LLE PT/OT Fall precautions Stable for discharge Waiting for placement Fall precautions H/O Constipation Has chronic constipation issues continue bowel regimen Hyperglycemia H/O DM II Last HbA1c 5.3 hold p.o. medications Continue insulin while hospitalized Monitor blood glucose levels Hyperlipidemia on statin Seizure disorder Paranoid schizophrenia with auditory hallucinations Intellectual impairment Continue home medications Stable DVT Px: continue Xarelto Code Status: Full code Disposition SNF as able Case management to help with discharge planning Admission and Anticipated Discharge Date Admission Date: October 14, 2023 Subjective Patient is seen and examined at bedside Poor historian due to intellectual disability No distress on exam Denies any abdominal pain, chest pain, dyspnea Discussed w/ RN and [employer] - monitor BM - if no BM by lunchtime may need suppository Review of Systems Review of Systems: All systems reviewed & are unremarkable except as noted in Subjective Physical Exam Physical Exam: General Appearance:Thin, chronically ill appearing F in NAD Head: NC/AT Eyes: normal inspection, EOMI Neck: supple Respiratory/Chest: Decreased breath sounds, CTA, No accessory muscle use Cardiovascular: S1, S2, No murmur Abdomen/GI:Soft, Non tender, Bowel sounds present Extremities/Musculoskeletal:normal inspection, Trace edema, Left Leg Cast Neurologic/Psych:AAOX2, + Intellectual disability, speech slow but answers simple questions appropriately, moves extremities Skin: warm, dry Results & Data Results & Data Vital Signs (Past 12 Hours) Vital Signs Temp Pulse Resp BP Pulse Ox O2 Del Method 10/23/23 07:21 36.5 C 67 16 112/72 97 Room Air 10/22/23 22:37 36.7 C 74 16 116/76 95 Room Air Medications Administered Current Inpatient Medications Acetaminophen (Acetaminophen 325 Mg Tab) 650 mg PO Q4H PRN PRN Reason: pain/fever Stop: 11/13/23 19:57 Al Hydrox/Mg Hydrox/Simethicone (Aluminum/Magnesium Susp 30 Ml Udc) 30 ml PO Q6H PRN PRN Reason: Dyspepsia Stop: 11/13/23 19:57 Atorvastatin Calcium (Atorvastatin 40 Mg Tab) 40 mg PO [facility] Stop: 11/13/23 20:59 Last Admin: 10/22/23 20:06 Dose: 40 mg Bisacodyl (Bisacodyl 10 Mg Supp) 10 mg [place] DAILY PRN PRN Reason: constipation Stop: 11/13/23 19:57 Calcium/Vitamin D (Calcium 600mg + Vit D 400 Iu Tab) 2 tab PO QAM [facility] Stop: 11/14/23 08:59 Last Admin: 10/22/23 09:01 Dose: 2 tab Clozapine (Clozapine 100 Mg Tab) 200 mg PO [facility]; Protocol Stop: 11/13/23 21:29 Last Admin: 10/22/23 20:06 Dose: 200 mg Dextrose (Dextrose 50% 50 Ml Syringe) 25 - 50 ml IV UD PRN; Protocol PRN Reason: Hypoglycemia Protocol Stop: 11/13/23 19:57 Famotidine (Famotidine 40 Mg Tablet) 40 mg PO [facility] Stop: 11/13/23 20:59 Last Admin: 10/22/23 20:07 Dose: 40 mg Fluticasone Propionate (Fluticasone Propionate Na Spr 16 Gm Btl) 2 sprays NA [facility] Stop: 11/13/23 20:59 Last Admin: 10/22/23 20:07 Dose: 2 sprays Glucagon (Glucagon For Inj 1 Mg Vial) 1 mg SQ UD PRN; Protocol PRN Reason: Hypoglycemia Protocol Stop: 11/13/23 19:57 Glucose (Glucose 40% Gel 15 Gm Tube) 15 - 30 gm PO UD PRN; Protocol PRN Reason: Hypoglycemia Protocol Stop: 11/13/23 19:57 Glucose (Glucose 10 Tab/Tube) 4 - 8 tab PO UD PRN; Protocol PRN Reason: Hypoglycemia Treatment Stop: 11/13/23 19:57 Insulin Aspart (Insulin Aspart Per Unit Charge) 0 units SC [facility] Stop: 11/13/23 20:59 Last Admin: 10/22/23 21:21 Dose: 1 units Lactic Acid (Ammonium Lactate 12% Lotion 225 Gm Btl) 1 gm EXT QAM [facility] Stop: 11/14/23 08:59 Last Admin: 10/22/23 09:08 Dose: 1 gm Levetiracetam (Levetiracetam 250 Mg Tab) 250 mg PO BID [facility] Stop: 11/13/23 20:59 Last Admin: 10/22/23 20:07 Dose: 250 mg Magnesium Hydroxide (Magnesium Hydroxide Susp 30 Ml Udc) 30 ml PO Q6H PRN PRN Reason: Constipation Stop: 11/13/23 19:57 Miscellaneous (Carbohydrates For Hypoglycemia ) 15 - 30 gm PO UD PRN PRN Reason: Hypoglycemia Protocol Stop: 11/13/23 19:57 Ondansetron HCl (Ondansetron Inj 2 Mg/Ml 2 Ml Vial) 4 mg IV Q6H PRN PRN Reason: Nausea Stop: 11/13/23 19:57 Phenytoin Sodium (Phenytoin Sodium Er 100 Mg Cap) 200 mg PO BID [facility] Stop: 11/13/23 20:59 Last Admin: 10/22/23 20:08 Dose: 200 mg Polyethylene Glycol (Polyethylene (Miralax) 17 Gm Pack) 17 gm PO DAILY PRN PRN Reason: Constipation Stop: 11/13/23 19:57 Polyethylene Glycol (Polyethylene (Miralax) 17 Gm Pack) 17 gm PO BID [facility] Stop: 11/13/23 20:59 Last Admin: 10/22/23 20:08 Dose: 17 gm Rivaroxaban (Rivaroxaban 10 Mg Tablet) 10 mg PO QAM [facility] Stop: 11/14/23 08:59 Last Admin: 10/22/23 09:01 Dose: 10 mg Senna/Docusate Sodium (Docusate Sodium/Senna 50/8.6mg Tab) 1 tab PO BID [facility] Stop: 11/13/23 20:59 Last Admin: 10/22/23 20:07 Dose: 1 tab Triamcinolone Acetonide (Triamcinolone Acet 0.1% Cr 15 Gm Tube) 1 appln TOP BID PRN PRN Reason: Rash Stop: 11/13/23 19:57 Vitamin B Complex (Vitamin B Complex Tab) 1 tab PO QAM [facility] Stop: 11/14/23 08:59 Last Admin: 10/22/23 09:02 Dose: 1 tab (1) Tibial plateau fracture, left Encounter type: initial encounter Fracture type: closed Qualified Code(s): S82.142A - Displaced bicondylar fracture of left tibia, initial encounter for closed fracture
--- NOTE | 2023-10-23 15:25 | Psychiatric Consultation ---
Date of Consultation October 23, 2023 Impression / Recommendations Impression Diagnostically 63 yo woman with a history of schizophrenia on clozapine with auditory hallucinations while hospitalized for ambulatory dysfunction. Based on her report and lack of distress it seems her voices are at her baseline frequency and intensity. She denies any SI and denies that the auditory hallucinations are ever command in nature. Unclear if recent decrease in clozapine has caused any change in frequency or intensity of the hallucinations. Currently seems to be coping with the voices well, telling RN and using distraction strategies. No reason to adjust or make medication changes at this time. Overall, I spent a total of 35 minutes with this case including review of chart records, review of labwork, review of EKG QTc, direct evaluation of the patient at bedside, counseling the patient, discussion of the patient with the RN, discussion with the psychiatric liason during clinical rounds and documentation in the electronic health record. (1) Schizophrenia: Schizophrenia type: unspecified Qualified Code(s): F20.9 - Schizophrenia, unspecified Plan -Psych liason to attempt to get further collateral from her intermediate and will ensure records are sent to her outpatient psychiatrist Dr. Marroquin -Continue with clozapine, ANC reviewed and stable, last checked on 10/22/2023 Psych History Identifying Data 63 yo woman with a history of schizophrenia, intellectual disability, seizures admitted medically for ambulatory dysfunction and non-weight bearing status from her [facility] intermediate. Psychiatry consulted for "patient stated she was hearing voices" Chief Complaint "They tell me someone wishes I was ". History of Present Illness Brittany reports experiencing auditory hallucinations in the form of voices. She states the voices tell her that someone wishes she would or be . She has been hearing these voices for many years, both inside and outside the hospital, and hears them every day. She tries not to pay attention to them and has told them to go away or be quiet. Sometimes the voices also say "Goddammit" which she doesn't like. She is unsure if the frequency or intensity of the voices has changed recently, but does not believe they have ever gone away completely. She sometimes wonders whether she should believe what the voices say. Patient denies any history of self-harm or suicidal attempts and denies any SI. She denies that the voices ever command her to do anything or to hurt herself. Patient is currently on Clozapine and has discussed the voices with her outpatient provider in the past. She cannot recall why her clozapine dose was recently decreased (doesn't have awareness of this). Per chart review of surescripts her dose of clozapine was reduced from 600mg HS in August to 200mg HS. She is seen at the [facility] by Dr. Marroquin. She reports that listening to music may help with the voices, but is unsure if watching TV has the same effect. She communicates with staff when the voices are bothering her. Allergies Allergy/AdvReac Type Severity Reaction Status Date / Time divalproex sodium Allergy Unknown Unknown Verified 10/14/23 16:49 [From Depakote] salicylates Allergy Unknown Unknown Verified 10/14/23 16:49 valproic acid Allergy Unknown Unknown Verified 10/14/23 16:49 aspirin AdvReac Severe STOMACH Verified 10/14/23 16:49 ULCER BLEEDING Home Medications Medication Instructions Recorded Confirmed Type atorvastatin 40 mg tablet 40 mg PO HS 07/17/18 10/14/23 History glimepiride 2 mg tablet 4 mg PO QAM 07/17/18 10/14/23 History multivit-iron 18 mg-folic acid 400 1 tab PO QAM 07/17/18 10/14/23 History mcg-calcium 500 mg-minerals tablet (Women's One Daily) vitamin B complex 1 tab PO QAM 08/25/18 10/14/23 History fluticasone propionate 50 2 sprays intranasal HS 02/15/19 10/14/23 History mcg/actuation nasal spray,suspension ammonium lactate 12 % topical cream 1 applic topical QAM 05/21/19 10/14/23 History triamcinolone acetonide 0.1 % 1 applic topical BID PRN Rash 07/10/21 10/14/23 History topical cream valacyclovir 500 mg tablet 500 mg PO DAILY 02/18/22 10/14/23 History glimepiride 1 mg tablet 1 mg PO DAILY PRN BSG >300. 10/14/22 10/14/23 History polyethylene glycol 3350 17 gram 17 g PO BID 10/19/22 10/14/23 History oral powder packet (Miralax) calcium citrate 315 mg-vitamin D3 2 tab PO QAM ##0 02/11/23 10/14/23 History 5 mcg (200 unit) tablet (Calcium Citrate + D) albuterol sulfate 90 mcg/actuation 2 puff inhalation QIDR PRN 03/03/23 10/14/23 Rx aerosol inhaler (Ventolin HFA) shortness of breath or wheezing #6.7 grams dextromethorphan-guaifenesin 5 10 ml PO Q6H PRN cough #118 mL 03/03/23 10/14/23 Rx mg-100 mg/5 mL oral liquid (Robitussin Cough-Chest Congestion DM) acetaminophen 500 mg tablet 1,000 mg PO Q6 PRN Pain 06/07/23 10/14/23 History (Tylenol Extra Strength) dextromethorphan-guaifenesin 30 1 - 2 tab PO Q12H PRN Nasal 06/07/23 10/14/23 History mg-600 mg tablet extended Congestion [id number] hr (Mucinex DM) diphenhydramine HCl 25 mg tablet 25 mg PO .Q4-6 PRN Allergy Symptoms 06/07/23 10/14/23 History (Benadryl Allergy) famotidine 40 mg tablet 40 mg PO HS 06/07/23 10/14/23 History linagliptin 5 mg tablet (Tradjenta) 5 mg PO DAILY 08/15/23 10/14/23 History bisacodyl 10 mg rectal suppository 10 mg ND DAILY PRN constipation 08/23/23 10/14/23 Rx #30 ea levetiracetam 250 mg tablet 250 mg PO BID 90 days #180 tabs 08/30/23 10/14/23 Rx (Keppra) phenytoin sodium extended 100 mg 200 mg (2 x 100 mg) PO BID 90 days 08/30/23 10/14/23 Rx capsule (Dilantin Extended) #360 caps sennosides 8.6 mg-docusate sodium 1 tab PO BID #60 tabs 09/21/23 10/14/23 Rx 50 mg tablet (Senokot-S) clozapine 200 mg tablet 200 mg PO HS 10/14/23 10/14/23 History rivaroxaban 10 mg tablet (Xarelto) 10 mg PO QAM 10/14/23 10/14/23 History Patient History Medical History Weakness Heart murmur Onychomycosis Surgical History History of colonoscopy Family History Mother Diabetes Other Seizures Social History Smoking Status: Never smoker Second Hand Exposure: No; Do You Dip or Chew Tobacco: No; Tobacco Cessation Education Requested by Patient: No Hx Alcohol Use: No Hx Substance Use: No Preferred Language: Spanish Communication Ability: Impaired Communication Ability Comment: Intellectual Disability Visual Impairment: No Limitations Hearing Ability: Normal [place] Required: No Beliefs That Will Affect Care: None marital status: Single Current Living Situation: Other Current Living Situation Comment: [facility] current occupational status: disabled Other Information That Helps Us Care for You: No Feels Safe at Home: Yes Safety Concerns: Feels Safe At This Time Assistive Devices: Walker and Wheelchair Physical Exam Psychiatric: Orientation: alert, oriented to person, oriented to place and cooperative Apperance: appropriately dressed and appropriately groomed Eye Contact: + fair eye contact Motor Behavior: + abnormal motor movements (TD of her hands) Speech: normal rate/rhythm/volume of speech Affect: + constricted affect Mood: + anxious mood; no depressed mood Thought Process: + thought blocking (briefly at times while internal stimuli are talking to her) and + concrete thought process Thought Content: reality based without delusions Suicidal Thoughts: denies suicidal thoughts Homicidal Thoughts: denies homicidal thoughts Hallucinations: + auditory hallucinations; no visual hallucinations, no tactile hallucinations and no gustatory hallucinations Estimated Intelligence: + below average estimated intelligence Insight: + limited insight Judgment: + fair judgement Vital Signs (Past 24 Hours): Last Vital Signs Temp 36.9 C 10/23/23 14:08 Pulse 77 10/23/23 14:08 Resp 16 10/23/23 14:08 BP 106/69 10/23/23 14:08 Pulse Ox 97 10/23/23 14:08 O2 Del Method Room Air 10/23/23 14:08 Results & Data (PSY) Medications Administered Atorvastatin Calcium (Atorvastatin 40 Mg Tab) 40 mg PO HS DELMI Stop: 11/13/23 20:59 Last Admin: 10/22/23 20:06 Dose: 40 mg Documented By: Admin: 10/21/23 20:14 Dose: 40 mg Documented By: Admin: 10/20/23 21:09 Dose: 40 mg Documented By: Admin: 10/19/23 20:49 Dose: 40 mg Documented By: Admin: 10/18/23 20:29 Dose: 40 mg Documented By: Admin: 10/17/23 20:40 Dose: 40 mg Documented By: Admin: 10/16/23 20:28 Dose: 40 mg Documented By: Admin: 10/15/23 21:09 Dose: 40 mg Documented By: Admin: 10/14/23 21:50 Dose: 40 mg Documented By: CHELSEA Calcium/Vitamin D (Calcium 600mg + Vit D 400 Iu Tab) 2 tab PO QAM [facility] Stop: 11/14/23 08:59 Last Admin: 10/23/23 09:15 Dose: 2 tab Documented By: Admin: 10/22/23 09:01 Dose: 2 tab Documented By: Admin: 10/21/23 08:29 Dose: 2 tab Documented By: Admin: 10/20/23 08:27 Dose: 2 tab Documented By: Admin: 10/19/23 09:07 Dose: 2 tab Documented By: Admin: 10/18/23 07:37 Dose: 2 tab Documented By: Admin: 10/17/23 08:00 Dose: 2 tab Documented By: Admin: 10/16/23 07:32 Dose: 2 tab Documented By: Admin: 10/15/23 08:21 Dose: 2 tab Documented By: LOIDA Clozapine (Clozapine 100 Mg Tab) 200 mg PO [facility]; Protocol Stop: 11/13/23 21:29 Last Admin: 10/22/23 20:06 Dose: 200 mg Documented By: Admin: 10/21/23 20:14 Dose: 200 mg Documented By: Admin: 10/20/23 21:09 Dose: 200 mg Documented By: Admin: 10/19/23 20:49 Dose: 200 mg Documented By: Admin: 10/18/23 20:29 Dose: 200 mg Documented By: Admin: 10/17/23 20:41 Dose: 200 mg Documented By: Admin: 10/16/23 20:30 Dose: 200 mg Documented By: Admin: 10/15/23 21:08 Dose: 200 mg Documented By: Admin: 10/14/23 21:48 Dose: 200 mg Documented By: CHELSEA Famotidine (Famotidine 40 Mg Tablet) 40 mg PO [facility] Stop: 11/13/23 20:59 Last Admin: 10/22/23 20:07 Dose: 40 mg Documented By: Admin: 10/21/23 20:15 Dose: 40 mg Documented By: Admin: 10/20/23 21:10 Dose: 40 mg Documented By: Admin: 10/19/23 20:49 Dose: 40 mg Documented By: Admin: 10/18/23 20:29 Dose: 40 mg Documented By: Admin: 10/17/23 20:41 Dose: 40 mg Documented By: Admin: 10/16/23 20:28 Dose: 40 mg Documented By: Admin: 10/15/23 21:09 Dose: 40 mg Documented By: Admin: 10/14/23 21:50 Dose: 40 mg Documented By: CHELSEA Fluticasone Propionate (Fluticasone Propionate Na Spr 16 Gm Btl) 2 sprays NA [facility] Stop: 11/13/23 20:59 Last Admin: 10/22/23 20:07 Dose: 2 sprays Documented By: Admin: 10/21/23 20:15 Dose: 2 sprays Documented By: Admin: 10/20/23 21:10 Dose: 2 sprays Documented By: Admin: 10/19/23 20:48 Dose: 2 sprays Documented By: Admin: 10/18/23 20:29 Dose: 2 sprays Documented By: Admin: 10/17/23 20:41 Dose: 2 sprays Documented By: Admin: 10/16/23 20:30 Dose: 2 sprays Documented By: Admin: 10/15/23 21:07 Dose: 2 sprays Documented By: Admin: 10/14/23 21:50 Dose: 2 sprays Documented By: CHELSEA Insulin Aspart (Insulin Aspart Per Unit Charge) 0 units SC ACHS [facility] Stop: 11/13/23 20:59 Last Admin: 10/23/23 13:34 Dose: 6 units Documented By: JETTK Co-signed By: TIMOTHY Admin: 10/23/23 09:23 Dose: 4 units Documented By: OSITO Co-signed By: ZAMZAM Admin: 10/22/23 21:21 Dose: 1 units Documented By: RES Co-signed By: JESSIE Admin: 10/22/23 17:39 Dose: 3 units Documented By: CEF Co-signed By: KER Admin: 10/22/23 12:22 Dose: 5 units Documented By: CEF Co-signed By: EW Admin: 10/22/23 09:01 Dose: 5 units Documented By: CEF Co-signed By: GW Admin: 10/21/23 20:54 Dose: 1 units Documented By: RES Co-signed By: TKB Admin: 10/21/23 17:11 Dose: 4 units Documented By: HMH Co-signed By: LOUIE Admin: 10/21/23 12:18 Dose: 3 units Documented By: HMAdenike Co-signed By: FRANK Admin: 10/21/23 08:35 Dose: 2 units Documented By: HMH Co-signed By: LOUIE Admin: 10/20/23 20:59 Dose: Not Given Documented By: Admin: 10/20/23 17:22 Dose: 2 units Documented By: VMM Co-signed By: JOHNNA Admin: 10/20/23 12:23 Dose: 4 units Documented By: VMM Co-signed By: JOHNNA Admin: 10/20/23 08:29 Dose: 3 units Documented By: NATALIEM Co-signed By: REMEDIOS Admin: 10/19/23 20:49 Dose: Not Given Documented By: Admin: 10/19/23 17:22 Dose: 4 units Documented By: AAH Co-signed By: DLS Admin: 10/19/23 12:44 Dose: 7 units Documented By: CS Co-signed By: OZZYN Admin: 10/19/23 09:04 Dose: 3 units Documented By: CS Co-signed By: AAAdenike Admin: 10/18/23 20:30 Dose: Not Given Documented By: Admin: 10/18/23 17:40 Dose: 4 units Documented By: CMV Co-signed By: EW Admin: 10/18/23 12:11 Dose: 6 units Documented By: CMV Co-signed By: DLP Admin: 10/18/23 08:22 Dose: 3 units Documented By: CMV Co-signed By: DLP Admin: 10/17/23 20:41 Dose: Not Given Documented By: Admin: 10/17/23 17:22 Dose: 2 units Documented By: KEKE Co-signed By: LEEANNE Admin: 10/17/23 12:23 Dose: 3 units Documented By: KEKE Co-signed By: EVELYN Admin: 10/17/23 08:12 Dose: 3 units Documented By: KEKE Co-signed By: LEOBARDO Admin: 10/16/23 20:30 Dose: Not Given Documented By: Admin: 10/16/23 17:38 Dose: 3 units Documented By: LOIDA Co-signed By: JAIME Admin: 10/16/23 12:32 Dose: 3 units Documented By: LOIDA Co-signed By: EVELYN Admin: 10/16/23 08:20 Dose: 4 units Documented By: LOIDA Co-signed By: EVELYN Admin: 10/15/23 21:09 Dose: Not Given Documented By: Admin: 10/15/23 17:29 Dose: 3 units Documented By: LOIDA Co-signed By: DANIEL Admin: 10/15/23 12:16 Dose: 4 units Documented By: LOIDA Co-signed By: DANIEL Admin: 10/15/23 08:27 Dose: 5 units Documented By: LOIDA Co-signed By: DANIEL Admin: 10/14/23 22:09 Dose: Not Given Documented By: CWR Co-signed By: JESSIE Lactic Acid (Ammonium Lactate 12% Lotion 225 Gm Btl) 1 gm EXT QAM DELMI Stop: 11/14/23 08:59 Last Admin: 10/23/23 09:15 Dose: 1 gm Documented By: Admin: 10/22/23 09:08 Dose: 1 gm Documented By: Admin: 10/21/23 08:29 Dose: 1 gm Documented By: Admin: 10/20/23 08:25 Dose: 1 gm Documented By: Admin: 10/19/23 09:07 Dose: 1 gm Documented By: Admin: 10/18/23 07:38 Dose: 1 gm Documented By: Admin: 10/17/23 07:57 Dose: 1 gm Documented By: Admin: 10/16/23 07:33 Dose: 1 gm Documented By: Admin: 10/15/23 08:21 Dose: 1 gm Documented By: LOIDA Levetiracetam (Levetiracetam 250 Mg Tab) 250 mg PO BID DELMI Stop: 11/13/23 20:59 Last Admin: 10/23/23 09:16 Dose: 250 mg Documented By: Admin: 10/22/23 20:07 Dose: 250 mg Documented By: Admin: 10/22/23 09:02 Dose: 250 mg Documented By: Admin: 10/21/23 20:16 Dose: 250 mg Documented By: Admin: 10/21/23 08:29 Dose: 250 mg Documented By: Admin: 10/20/23 21:10 Dose: 250 mg Documented By: Admin: 10/20/23 08:25 Dose: 250 mg Documented By: Admin: 10/19/23 20:49 Dose: 250 mg Documented By: Admin: 10/19/23 09:08 Dose: 250 mg Documented By: Admin: 10/18/23 20:29 Dose: 250 mg Documented By: Admin: 10/18/23 07:36 Dose: 250 mg Documented By: Admin: 10/17/23 20:40 Dose: 250 mg Documented By: Admin: 10/17/23 07:58 Dose: 250 mg Documented By: Admin: 10/16/23 20:29 Dose: 250 mg Documented By: Admin: 10/16/23 07:32 Dose: 250 mg Documented By: Admin: 10/15/23 21:08 Dose: 250 mg Documented By: Admin: 10/15/23 08:21 Dose: 250 mg Documented By: Admin: 10/14/23 21:49 Dose: 250 mg Documented By: CHELSEA Phenytoin Sodium (Phenytoin Sodium Er 100 Mg Cap) 200 mg PO BID DELMI Stop: 11/13/23 20:59 Last Admin: 10/23/23 09:16 Dose: 200 mg Documented By: Admin: 10/22/23 20:08 Dose: 200 mg Documented By: Admin: 10/22/23 09:02 Dose: 200 mg Documented By: Admin: 10/21/23 20:15 Dose: 200 mg Documented By: Admin: 10/21/23 08:29 Dose: 200 mg Documented By: Admin: 10/20/23 21:09 Dose: 200 mg Documented By: Admin: 10/20/23 08:26 Dose: 200 mg Documented By: Admin: 10/19/23 20:49 Dose: 200 mg Documented By: Admin: 10/19/23 09:08 Dose: 200 mg Documented By: Admin: 10/18/23 20:29 Dose: 200 mg Documented By: Admin: 10/18/23 07:37 Dose: 200 mg Documented By: Admin: 10/17/23 20:40 Dose: 200 mg Documented By: Admin: 10/17/23 07:59 Dose: 200 mg Documented By: Admin: 10/16/23 20:29 Dose: 200 mg Documented By: Admin: 10/16/23 07:32 Dose: 200 mg Documented By: Admin: 10/15/23 21:08 Dose: 200 mg Documented By: Admin: 10/15/23 08:21 Dose: 200 mg Documented By: Admin: 10/14/23 21:49 Dose: 200 mg Documented By: CHELSEA Polyethylene Glycol (Polyethylene (Miralax) 17 Gm Pack) 17 gm PO BID DELMI Stop: 11/13/23 20:59 Last Admin: 10/23/23 09:17 Dose: 17 gm Documented By: Admin: 10/22/23 20:08 Dose: 17 gm Documented By: Admin: 10/22/23 09:04 Dose: 17 gm Documented By: Admin: 10/21/23 20:16 Dose: 17 gm Documented By: Admin: 10/21/23 08:30 Dose: 17 gm Documented By: Admin: 10/20/23 21:08 Dose: 17 gm Documented By: Admin: 10/20/23 08:28 Dose: 17 gm Documented By: Admin: 10/19/23 20:49 Dose: 17 gm Documented By: Admin: 10/19/23 09:08 Dose: 17 gm Documented By: Admin: 10/18/23 20:30 Dose: 17 gm Documented By: Admin: 10/18/23 07:37 Dose: 17 gm Documented By: Admin: 10/17/23 20:41 Dose: 17 gm Documented By: Admin: 10/17/23 07:59 Dose: 17 gm Documented By: Admin: 10/16/23 20:29 Dose: 17 gm Documented By: Admin: 10/16/23 07:33 Dose: 17 gm Documented By: Admin: 10/15/23 21:07 Dose: 17 gm Documented By: Admin: 10/15/23 08:21 Dose: 17 gm Documented By: Admin: 10/14/23 21:51 Dose: 17 gm Documented By: CHELSEA Rivaroxaban (Rivaroxaban 10 Mg Tablet) 10 mg PO QAM DELMI Stop: 11/14/23 08:59 Last Admin: 10/23/23 09:17 Dose: 10 mg Documented By: Admin: 10/22/23 09:01 Dose: 10 mg Documented By: Admin: 10/21/23 08:30 Dose: 10 mg Documented By: Admin: 10/20/23 08:26 Dose: 10 mg Documented By: Admin: 10/19/23 09:08 Dose: 10 mg Documented By: Admin: 10/18/23 07:37 Dose: 10 mg Documented By: Admin: 10/17/23 07:58 Dose: 10 mg Documented By: Admin: 10/16/23 07:32 Dose: 10 mg Documented By: Admin: 10/15/23 08:21 Dose: 10 mg Documented By: LOIDA Senna/Docusate Sodium (Docusate Sodium/Senna 50/8.6mg Tab) 1 tab PO BID [facility] Stop: 11/13/23 20:59 Last Admin: 10/23/23 09:15 Dose: 1 tab Documented By: Admin: 10/22/23 20:07 Dose: 1 tab Documented By: Admin: 10/22/23 09:02 Dose: 1 tab Documented By: Admin: 10/21/23 20:14 Dose: 1 tab Documented By: Admin: 10/21/23 08:29 Dose: 1 tab Documented By: HMAdenike Admin: 10/20/23 21:09 Dose: 1 tab Documented By: Admin: 10/20/23 08:27 Dose: 1 tab Documented By: Admin: 10/19/23 20:49 Dose: 1 tab Documented By: Admin: 10/19/23 09:09 Dose: 1 tab Documented By: Admin: 10/18/23 20:29 Dose: 1 tab Documented By: Admin: 10/18/23 07:37 Dose: 1 tab Documented By: Admin: 10/17/23 20:41 Dose: 1 tab Documented By: Admin: 10/17/23 07:58 Dose: 1 tab Documented By: Admin: 10/16/23 20:30 Dose: 1 tab Documented By: Admin: 10/16/23 07:32 Dose: 1 tab Documented By: Admin: 10/15/23 21:08 Dose: 1 tab Documented By: Admin: 10/15/23 08:21 Dose: 1 tab Documented By: Admin: 10/14/23 21:50 Dose: 1 tab Documented By: CHELSEA Vitamin B Complex (Vitamin B Complex Tab) 1 tab PO QAM DELMI Stop: 11/14/23 08:59 Last Admin: 10/23/23 09:17 Dose: 1 tab Documented By: Admin: 10/22/23 09:02 Dose: 1 tab Documented By: Admin: 10/21/23 08:30 Dose: 1 tab Documented By: Admin: 10/20/23 08:26 Dose: 1 tab Documented By: Admin: 10/19/23 09:09 Dose: 1 tab Documented By: Admin: 10/18/23 07:37 Dose: 1 tab Documented By: Admin: 10/17/23 07:57 Dose: 1 tab Documented By: Admin: 10/16/23 07:32 Dose: 1 tab Documented By: Admin: 10/15/23 08:21 Dose: 1 tab Documented By: LOIDA Coding Level of Care Code 15238 IN/OBS CONSULT LVL 2,35M Diagnoses Schizophrenia, unspecified type F20.9 Schizophrenia type: unspecified
--- NOTE | 2023-10-24 16:24 | Hospitalist Progress Note ---
Date of Service October 24, 2023 Assessment & Plan (1) Tibial plateau fracture, left: (2) Ambulatory dysfunction: (3) Intellectual delay: Plan Patient is 63 yo F with a PMH of seizures, ambulatory dysfunction, cognitive dysfunction, schizophrenia, DM II, and other medical problems presents from [facility] with staff member due to needing placement while nonweightbearing. Ambulatory dysfunction Recent fall, prior to previous admission Left tibial plateau fracture - NWB status NWB x 12 weeks to LLE PT/OT Fall precautions Stable for discharge Waiting for placement Fall precautions H/O Constipation Has chronic constipation issues continue bowel regimen Hyperglycemia H/O DM II Last HbA1c 5.3 hold p.o. medications Continue insulin while hospitalized Monitor blood glucose levels Hyperlipidemia on statin Seizure disorder Paranoid schizophrenia with auditory hallucinations Intellectual impairment Continue home medications Stable DVT Px: continue Xarelto Code Status: Full code Disposition SNF as able Case management to help with discharge planning Admission and Anticipated Discharge Date Admission Date: October 14, 2023 Subjective Patient is seen and examined at bedside Poor historian due to intellectual disability No distress on exam Denies any abdominal pain, chest pain, dyspnea Reports she continues to hear voices, seen by psychiatry yesterday Review of Systems Review of Systems: All systems reviewed & are unremarkable except as noted in Subjective Physical Exam Physical Exam: General Appearance:Thin, chronically ill appearing F in NAD Head: NC/AT Eyes: normal inspection, EOMI Neck: supple Respiratory/Chest: Decreased breath sounds, CTA, No accessory muscle use Cardiovascular: S1, S2, No murmur Abdomen/GI:Soft, Non tender, Bowel sounds present Extremities/Musculoskeletal:normal inspection, Trace edema, Left Leg Cast Neurologic/Psych:AAOX2, + Intellectual disability, speech slow but answers simple questions appropriately, moves extremities Skin: warm, dry Results & Data Results & Data Vital Signs (Past 12 Hours) Vital Signs Temp Pulse Resp BP BP Pulse Ox O2 Del Method 10/24/23 14:57 36.7 C 74 16 104/63 96 Room Air 10/24/23 07:34 36.6 C 64 17 117/74 98 Room Air Medications Administered Current Inpatient Medications Acetaminophen (Acetaminophen 325 Mg Tab) 650 mg PO Q4H PRN PRN Reason: pain/fever Stop: 11/13/23 19:57 Al Hydrox/Mg Hydrox/Simethicone (Aluminum/Magnesium Susp 30 Ml Udc) 30 ml PO Q6H PRN PRN Reason: Dyspepsia Stop: 11/13/23 19:57 Atorvastatin Calcium (Atorvastatin 40 Mg Tab) 40 mg PO HS [facility] Stop: 11/13/23 20:59 Last Admin: 10/23/23 21:00 Dose: 40 mg Bisacodyl (Bisacodyl 10 Mg Supp) 10 mg [place] DAILY PRN PRN Reason: constipation Stop: 11/13/23 19:57 Calcium/Vitamin D (Calcium 600mg + Vit D 400 Iu Tab) 2 tab PO QAM [facility] Stop: 11/14/23 08:59 Last Admin: 10/24/23 07:50 Dose: 2 tab Clozapine (Clozapine 100 Mg Tab) 200 mg PO [facility]; Protocol Stop: 11/13/23 21:29 Last Admin: 10/23/23 20:59 Dose: 200 mg Dextrose (Dextrose 50% 50 Ml Syringe) 25 - 50 ml IV UD PRN; Protocol PRN Reason: Hypoglycemia Protocol Stop: 11/13/23 19:57 Famotidine (Famotidine 40 Mg Tablet) 40 mg PO [facility] Stop: 11/13/23 20:59 Last Admin: 10/23/23 21:00 Dose: 40 mg Fluticasone Propionate (Fluticasone Propionate Na Spr 16 Gm Btl) 2 sprays NA [facility] Stop: 11/13/23 20:59 Last Admin: 10/23/23 21:00 Dose: 2 sprays Glucagon (Glucagon For Inj 1 Mg Vial) 1 mg SQ UD PRN; Protocol PRN Reason: Hypoglycemia Protocol Stop: 11/13/23 19:57 Glucose (Glucose 40% Gel 15 Gm Tube) 15 - 30 gm PO UD PRN; Protocol PRN Reason: Hypoglycemia Protocol Stop: 11/13/23 19:57 Glucose (Glucose 10 Tab/Tube) 4 - 8 tab PO UD PRN; Protocol PRN Reason: Hypoglycemia Treatment Stop: 11/13/23 19:57 Insulin Aspart (Insulin Aspart Per Unit Charge) 0 units SC [facility] Stop: 11/13/23 20:59 Last Admin: 10/24/23 12:39 Dose: 4 units Lactic Acid (Ammonium Lactate 12% Lotion 225 Gm Btl) 1 gm EXT QAM [facility] Stop: 11/14/23 08:59 Last Admin: 10/24/23 07:52 Dose: 1 gm Levetiracetam (Levetiracetam 250 Mg Tab) 250 mg PO BID [facility] Stop: 11/13/23 20:59 Last Admin: 10/24/23 07:51 Dose: 250 mg Magnesium Hydroxide (Magnesium Hydroxide Susp 30 Ml Udc) 30 ml PO Q6H PRN PRN Reason: Constipation Stop: 11/13/23 19:57 Miscellaneous (Carbohydrates For Hypoglycemia ) 15 - 30 gm PO UD PRN PRN Reason: Hypoglycemia Protocol Stop: 11/13/23 19:57 Ondansetron HCl (Ondansetron Inj 2 Mg/Ml 2 Ml Vial) 4 mg IV Q6H PRN PRN Reason: Nausea Stop: 11/13/23 19:57 Phenytoin Sodium (Phenytoin Sodium Er 100 Mg Cap) 200 mg PO BID [facility] Stop: 11/13/23 20:59 Last Admin: 10/24/23 07:51 Dose: 200 mg Polyethylene Glycol (Polyethylene (Miralax) 17 Gm Pack) 17 gm PO DAILY PRN PRN Reason: Constipation Stop: 11/13/23 19:57 Polyethylene Glycol (Polyethylene (Miralax) 17 Gm Pack) 17 gm PO BID [facility] Stop: 11/13/23 20:59 Last Admin: 10/24/23 07:51 Dose: 17 gm Rivaroxaban (Rivaroxaban 10 Mg Tablet) 10 mg PO QAM [facility] Stop: 11/14/23 08:59 Last Admin: 10/24/23 07:50 Dose: 10 mg Senna/Docusate Sodium (Docusate Sodium/Senna 50/8.6mg Tab) 1 tab PO BID [facility] Stop: 11/13/23 20:59 Last Admin: 10/24/23 07:50 Dose: 1 tab Triamcinolone Acetonide (Triamcinolone Acet 0.1% Cr 15 Gm Tube) 1 appln TOP BID PRN PRN Reason: Rash Stop: 11/13/23 19:57 Vitamin B Complex (Vitamin B Complex Tab) 1 tab PO QAM [facility] Stop: 11/14/23 08:59 Last Admin: 10/24/23 07:50 Dose: 1 tab (1) Tibial plateau fracture, left Encounter type: initial encounter Fracture type: closed Qualified Code(s): S82.142A - Displaced bicondylar fracture of left tibia, initial encounter for closed fracture
[2023-10-24] MEDS: ACETAMINOPHEN 325 MG TAB PO PRN (21:08)
--- NOTE | 2023-10-25 15:53 | Hospitalist Progress Note ---
Date of Service October 25, 2023 Assessment & Plan (1) Tibial plateau fracture, left: (2) Ambulatory dysfunction: (3) Intellectual delay: Plan Patient is 63 yo F with a PMH of seizures, ambulatory dysfunction, cognitive dysfunction, schizophrenia, DM II, and other medical problems presents from [facility] with staff member due to needing placement while nonweightbearing. Ambulatory dysfunction Recent fall, prior to previous admission Left tibial plateau fracture - NWB status NWB x 12 weeks to LLE PT/OT Fall precautions Stable for discharge Waiting for placement Fall precautions H/O Constipation Has chronic constipation issues continue bowel regimen Hyperglycemia H/O DM II Last HbA1c 5.3 hold p.o. medications Continue insulin while hospitalized Monitor blood glucose levels Hyperlipidemia on statin Seizure disorder Paranoid schizophrenia with auditory hallucinations Intellectual impairment Continue home medications Stable DVT Px: continue Xarelto Code Status: Full code Disposition SNF as able Case management to help with discharge planning Admission and Anticipated Discharge Date Admission Date: October 14, 2023 Subjective Patient is seen and examined at bedside Poor historian due to intellectual disability No distress on exam Denies any abdominal pain, chest pain, dyspnea continues to hear voices on and off, seen by psychiatry Review of Systems Review of Systems: All systems reviewed & are unremarkable except as noted in Subjective Physical Exam Physical Exam: General Appearance:Thin, chronically ill appearing F in NAD Head: NC/AT Eyes: normal inspection, EOMI Neck: supple Respiratory/Chest: Decreased breath sounds, CTA, No accessory muscle use Cardiovascular: S1, S2, No murmur Abdomen/GI:Soft, Non tender, Bowel sounds present Extremities/Musculoskeletal:normal inspection, Trace edema, Left Leg Cast Neurologic/Psych:AAOX2, + Intellectual disability, speech slow but answers simple questions appropriately, moves extremities Skin: warm, dry Results & Data Results & Data Vital Signs (Past 12 Hours) Vital Signs Temp Pulse Pulse Resp BP BP Pulse Ox 10/25/23 14:41 36.8 C 80 16 96/62 L 97 10/25/23 08:15 10/25/23 07:47 36.5 C 64 16 108/68 96 O2 Del Method 10/25/23 14:41 Room Air 10/25/23 08:15 Room Air 10/25/23 07:47 Room Air Medications Administered Current Inpatient Medications Acetaminophen (Acetaminophen 325 Mg Tab) 650 mg PO Q4H PRN PRN Reason: pain/fever Stop: 11/13/23 19:57 Last Admin: 10/24/23 21:08 Dose: 650 mg Al Hydrox/Mg Hydrox/Simethicone (Aluminum/Magnesium Susp 30 Ml Udc) 30 ml PO Q6H PRN PRN Reason: Dyspepsia Stop: 11/13/23 19:57 Atorvastatin Calcium (Atorvastatin 40 Mg Tab) 40 mg PO HS [facility] Stop: 11/13/23 20:59 Last Admin: 10/24/23 21:10 Dose: 40 mg Bisacodyl (Bisacodyl 10 Mg Supp) 10 mg [place] DAILY PRN PRN Reason: constipation Stop: 11/13/23 19:57 Calcium/Vitamin D (Calcium 600mg + Vit D 400 Iu Tab) 2 tab PO QAM [facility] Stop: 11/14/23 08:59 Last Admin: 10/25/23 08:26 Dose: 2 tab Clozapine (Clozapine 100 Mg Tab) 200 mg PO HS [facility]; Protocol Stop: 11/13/23 21:29 Last Admin: 10/24/23 21:09 Dose: 200 mg Dextrose (Dextrose 50% 50 Ml Syringe) 25 - 50 ml IV UD PRN; Protocol PRN Reason: Hypoglycemia Protocol Stop: 11/13/23 19:57 Famotidine (Famotidine 40 Mg Tablet) 40 mg PO HS [facility] Stop: 11/13/23 20:59 Last Admin: 10/24/23 21:09 Dose: 40 mg Fluticasone Propionate (Fluticasone Propionate Na Spr 16 Gm Btl) 2 sprays NA [facility] Stop: 11/13/23 20:59 Last Admin: 10/24/23 21:11 Dose: 2 sprays Glucagon (Glucagon For Inj 1 Mg Vial) 1 mg SQ UD PRN; Protocol PRN Reason: Hypoglycemia Protocol Stop: 11/13/23 19:57 Glucose (Glucose 40% Gel 15 Gm Tube) 15 - 30 gm PO UD PRN; Protocol PRN Reason: Hypoglycemia Protocol Stop: 11/13/23 19:57 Glucose (Glucose 10 Tab/Tube) 4 - 8 tab PO UD PRN; Protocol PRN Reason: Hypoglycemia Treatment Stop: 11/13/23 19:57 Insulin Aspart (Insulin Aspart Per Unit Charge) 0 units SC [facility] Stop: 11/13/23 20:59 Last Admin: 10/25/23 12:45 Dose: 6 units Lactic Acid (Ammonium Lactate 12% Lotion 225 Gm Btl) 1 gm EXT QAM [facility] Stop: 11/14/23 08:59 Last Admin: 10/25/23 08:32 Dose: 1 gm Levetiracetam (Levetiracetam 250 Mg Tab) 250 mg PO BID [facility] Stop: 11/13/23 20:59 Last Admin: 10/25/23 08:26 Dose: 250 mg Magnesium Hydroxide (Magnesium Hydroxide Susp 30 Ml Udc) 30 ml PO Q6H PRN PRN Reason: Constipation Stop: 11/13/23 19:57 Miscellaneous (Carbohydrates For Hypoglycemia ) 15 - 30 gm PO UD PRN PRN Reason: Hypoglycemia Protocol Stop: 11/13/23 19:57 Ondansetron HCl (Ondansetron Inj 2 Mg/Ml 2 Ml Vial) 4 mg IV Q6H PRN PRN Reason: Nausea Stop: 11/13/23 19:57 Phenytoin Sodium (Phenytoin Sodium Er 100 Mg Cap) 200 mg PO BID [facility] Stop: 11/13/23 20:59 Last Admin: 10/25/23 08:26 Dose: 200 mg Polyethylene Glycol (Polyethylene (Miralax) 17 Gm Pack) 17 gm PO DAILY PRN PRN Reason: Constipation Stop: 11/13/23 19:57 Polyethylene Glycol (Polyethylene (Miralax) 17 Gm Pack) 17 gm PO BID [facility] Stop: 11/13/23 20:59 Last Admin: 10/25/23 08:18 Dose: 17 gm Rivaroxaban (Rivaroxaban 10 Mg Tablet) 10 mg PO QAM [facility] Stop: 11/14/23 08:59 Last Admin: 10/25/23 08:26 Dose: 10 mg Senna/Docusate Sodium (Docusate Sodium/Senna 50/8.6mg Tab) 1 tab PO BID [facility] Stop: 11/13/23 20:59 Last Admin: 10/25/23 08:26 Dose: 1 tab Triamcinolone Acetonide (Triamcinolone Acet 0.1% Cr 15 Gm Tube) 1 appln TOP BID PRN PRN Reason: Rash Stop: 11/13/23 19:57 Vitamin B Complex (Vitamin B Complex Tab) 1 tab PO QAM [facility] Stop: 11/14/23 08:59 Last Admin: 10/25/23 08:26 Dose: 1 tab (1) Tibial plateau fracture, left Encounter type: initial encounter Fracture type: closed Qualified Code(s): S82.142A - Displaced bicondylar fracture of left tibia, initial encounter for closed fracture
[2023-10-26 07:13] VITALS: RESP 14; TEMP 98.2; O2SAT 96
--- NOTE | 2023-10-26 09:51 | Hospitalist Progress Note ---
Date of Service October 26, 2023 Assessment & Plan (1) Tibial plateau fracture, left: (2) Ambulatory dysfunction: (3) Intellectual delay: Plan Patient is 63 yo F with a PMH of seizures, ambulatory dysfunction, cognitive dysfunction, schizophrenia, DM II, and other medical problems presents from [facility] with staff member due to needing placement while nonweightbearing. Ambulatory dysfunction Recent fall, prior to previous admission Left tibial plateau fracture - NWB status NWB x 12 weeks to LLE PT/OT Fall precautions Stable for discharge Waiting for placement Fall precautions Outpt follow up w/ orthopedics H/O Constipation Has chronic constipation issues continue bowel regimen Hyperglycemia H/O DM II Last HbA1c 5.3 hold p.o. medications Continue insulin while hospitalized Monitor blood glucose levels Hyperlipidemia on statin Seizure disorder Paranoid schizophrenia with auditory hallucinations Intellectual impairment Continue home medications Continues to hear voices - seen by psychiatry - at baseline Stable DVT Px: continue Xarelto Code Status: Full code Disposition SNF / [facility] today Admission and Anticipated Discharge Date Admission Date: October 14, 2023 Subjective Patient seen in follow up Poor historian due to intellectual disability No distress on exam Denies any abdominal pain, chest pain, dyspnea Caregiver present at the bedside, patient is currently sitting up in chair, talking to her therapist over the Zoom. continues to hear voices on and off, seen by psychiatry -this is her baseline, also confirmed with her caregiver. Per caregiver, patient has appointment with orthopedic surgery next week. Informed by CM, that patient can be discharged to [facility] today. I updated patient and caregiver at the bedside. Review of Systems Review of Systems: All systems reviewed & are unremarkable except as noted in Subjective Physical Exam Physical Exam: General Appearance:Thin, chronically ill appearing F in NAD Head: NC/AT Eyes: normal inspection, EOMI Neck: supple Respiratory/Chest: Decreased breath sounds, CTA, No accessory muscle use Cardiovascular: S1, S2, No murmur Abdomen/GI:Soft, Non tender, Bowel sounds present Extremities/Musculoskeletal:normal inspection, Trace edema, Left Leg Cast Neurologic/Psych:AAOX2, + Intellectual disability, speech slow but answers simple questions appropriately, moves extremities Skin: warm, dry Results & Data Results & Data Vital Signs (Past 12 Hours) Vital Signs Temp Pulse Resp BP Pulse Ox O2 Del Method 10/26/23 07:12 36.8 C 65 14 123/74 96 Room Air Medications Administered Current Inpatient Medications Acetaminophen (Acetaminophen 325 Mg Tab) 650 mg PO Q4H PRN PRN Reason: pain/fever Stop: 11/13/23 19:57 Last Admin: 10/25/23 21:06 Dose: 650 mg Al Hydrox/Mg Hydrox/Simethicone (Aluminum/Magnesium Susp 30 Ml Udc) 30 ml PO Q6H PRN PRN Reason: Dyspepsia Stop: 11/13/23 19:57 Atorvastatin Calcium (Atorvastatin 40 Mg Tab) 40 mg PO HS [facility] Stop: 11/13/23 20:59 Last Admin: 10/25/23 21:07 Dose: 40 mg Bisacodyl (Bisacodyl 10 Mg Supp) 10 mg [place] DAILY PRN PRN Reason: constipation Stop: 11/13/23 19:57 Calcium/Vitamin D (Calcium 600mg + Vit D 400 Iu Tab) 2 tab PO QAM [facility] Stop: 11/14/23 08:59 Last Admin: 10/26/23 07:40 Dose: 2 tab Clozapine (Clozapine 100 Mg Tab) 200 mg PO HS [facility]; Protocol Stop: 11/13/23 21:29 Last Admin: 10/25/23 21:15 Dose: 200 mg Dextrose (Dextrose 50% 50 Ml Syringe) 25 - 50 ml IV UD PRN; Protocol PRN Reason: Hypoglycemia Protocol Stop: 11/13/23 19:57 Famotidine (Famotidine 40 Mg Tablet) 40 mg PO [facility] Stop: 11/13/23 20:59 Last Admin: 10/25/23 21:07 Dose: 40 mg Fluticasone Propionate (Fluticasone Propionate Na Spr 16 Gm Btl) 2 sprays NA [facility] Stop: 11/13/23 20:59 Last Admin: 10/25/23 21:06 Dose: 2 sprays Glucagon (Glucagon For Inj 1 Mg Vial) 1 mg SQ UD PRN; Protocol PRN Reason: Hypoglycemia Protocol Stop: 11/13/23 19:57 Glucose (Glucose 40% Gel 15 Gm Tube) 15 - 30 gm PO UD PRN; Protocol PRN Reason: Hypoglycemia Protocol Stop: 11/13/23 19:57 Glucose (Glucose 10 Tab/Tube) 4 - 8 tab PO UD PRN; Protocol PRN Reason: Hypoglycemia Treatment Stop: 11/13/23 19:57 Insulin Aspart (Insulin Aspart Per Unit Charge) 0 units SC [facility] Stop: 11/13/23 20:59 Last Admin: 10/26/23 08:24 Dose: 4 units Lactic Acid (Ammonium Lactate 12% Lotion 225 Gm Btl) 1 gm EXT QAM [facility] Stop: 11/14/23 08:59 Last Admin: 10/26/23 07:41 Dose: 1 gm Levetiracetam (Levetiracetam 250 Mg Tab) 250 mg PO BID [facility] Stop: 11/13/23 20:59 Last Admin: 10/26/23 07:39 Dose: 250 mg Magnesium Hydroxide (Magnesium Hydroxide Susp 30 Ml Udc) 30 ml PO Q6H PRN PRN Reason: Constipation Stop: 11/13/23 19:57 Miscellaneous (Carbohydrates For Hypoglycemia ) 15 - 30 gm PO UD PRN PRN Reason: Hypoglycemia Protocol Stop: 11/13/23 19:57 Ondansetron HCl (Ondansetron Inj 2 Mg/Ml 2 Ml Vial) 4 mg IV Q6H PRN PRN Reason: Nausea Stop: 11/13/23 19:57 Phenytoin Sodium (Phenytoin Sodium Er 100 Mg Cap) 200 mg PO BID [facility] Stop: 11/13/23 20:59 Last Admin: 10/26/23 07:38 Dose: 200 mg Polyethylene Glycol (Polyethylene (Miralax) 17 Gm Pack) 17 gm PO DAILY PRN PRN Reason: Constipation Stop: 11/13/23 19:57 Polyethylene Glycol (Polyethylene (Miralax) 17 Gm Pack) 17 gm PO BID [facility] Stop: 11/13/23 20:59 Last Admin: 10/26/23 07:40 Dose: 17 gm Rivaroxaban (Rivaroxaban 10 Mg Tablet) 10 mg PO QAM [facility] Stop: 11/14/23 08:59 Last Admin: 10/26/23 07:40 Dose: 10 mg Senna/Docusate Sodium (Docusate Sodium/Senna 50/8.6mg Tab) 1 tab PO BID [facility] Stop: 11/13/23 20:59 Last Admin: 10/26/23 07:39 Dose: 1 tab Triamcinolone Acetonide (Triamcinolone Acet 0.1% Cr 15 Gm Tube) 1 appln TOP BID PRN PRN Reason: Rash Stop: 11/13/23 19:57 Vitamin B Complex (Vitamin B Complex Tab) 1 tab PO QAM [facility] Stop: 11/14/23 08:59 Last Admin: 10/26/23 07:40 Dose: 1 tab (1) Tibial plateau fracture, left Encounter type: initial encounter Fracture type: closed Qualified Code(s): S82.142A - Displaced bicondylar fracture of left tibia, initial encounter for closed fracture
--- NOTE | 2023-10-26 11:25 | Discharge Summary ---
Date of Service October 26, 2023 Admission HPI Per Admitting Provider Patient is 63 year old female with a PMH of seizures, ambulatory dysfunction, cognitive dysfunction, schizophrenia, DM II, and other medical problems presents from [place] [facility] with staff member due to needing placement while nonweightbearing.Of significance patient was recently hospitalized on 09/21 and discharged on 09/23 secondary to amatory dysfunction in setting of a recent fall and diagnosed with a left tibial plateau fracture. She also was constipated. She was seen and evaluated by orthopedics who recommended knee immobilizer and nonweightbearing status. Her constipation resolved. She was then transition to [facility]. While at [facility] she was able to transition from a 2 assist to a 1 assist and therefore [facility] Unfortunately patient had not been maintaining her nonweightbearing status and when followed up with orthopedics yesterday there was some decompensation to her fracture. Due to her inability to follow a strict nonweightbearing status she was placed in a long cast to her left leg. With this restriction her mobility is significantly limited in status or refills unable to care for her. senior strategy manager as outpatient was working on setting up for SNF; however due to no bed availability presented to ED for placement. Patient's history is limited due to underlying intellectual disability but reports no concerns. Staff member at bedside feels she has been doing well. Admission Exam Per Admitting Provider GENERAL APPEARANCE: AxOx1, awake, follows commands, slow to respond but will answer yes/no questions mostly ( simple, short questions) HEENT: NC, AT. MMM. EOMI, clear conjunctiva NECK: Supple without lymphadenopathy. No stiffness or restricted ROM. HEART: Normal rate and regular rhythm, normal S1/S1, no m/r/g LUNGS: CTAB, moving air well. No crackles or wheezes are heard. ABDOMEN: Soft, nontender, no distention +BS BACK: No CVAT, no obvious deformity. EXTREMITIES: Without cyanosis, clubbing or edema.trace bruising of right knee = NEUROLOGICAL: Grossly nonfocal. moving all 4 extremities. CN not formally tested but appear grossly intact. Skin: Warm and dry without any rash. Principal Diagnosis Ambulatory dysfunction Left tibial plateau fracture - NWB status Discharge Exam General Appearance:Thin, chronically ill appearing F in NAD Head: NC/AT Eyes: normal inspection, EOMI Neck: supple Respiratory/Chest: Decreased breath sounds, CTA, No accessory muscle use Cardiovascular: S1, S2, No murmur Abdomen/GI:Soft, Non tender, Bowel sounds present Extremities/Musculoskeletal:normal inspection, Trace edema, Left Leg Cast Neurologic/Psych:AAOX2, + Intellectual disability, speech slow but answers simple questions appropriately, moves extremities Skin: warm, dry Discharge Data Allergies Allergy/AdvReac Type Severity Reaction Status Date / Time divalproex sodium Allergy Unknown Unknown Verified 10/14/23 16:49 [From Depakote] salicylates Allergy Unknown Unknown Verified 10/14/23 16:49 valproic acid Allergy Unknown Unknown Verified 10/14/23 16:49 aspirin AdvReac Severe STOMACH Verified 10/14/23 16:49 ULCER BLEEDING Consultations 10/14/23 17:55 ED Decision to Admit Stat 10/23/23 12:47 Consult Psychiatry Routine Hospital Course (1) Tibial plateau fracture, left: (2) Ambulatory dysfunction: (3) Intellectual delay: Plan Patient is 63 yo F with a PMH of seizures, ambulatory dysfunction, cognitive dysfunction, schizophrenia, DM II, and other medical problems presents from [facility] with staff member due to needing placement while nonweigh tbearing. Ambulatory dysfunction Recent fall, prior to previous admission Left tibial plateau fracture - NWB status NWB x 12 weeks to LLE PT/OT Fall precautions Stable for discharge Waiting for placement Fall precautions Outpt orthopedics follow up H/O Constipation Has chronic constipation issues continue bowel regimen Hyperglycemia H/O DM II Last HbA1c 5.3 hold p.o. medications Continue insulin while hospitalized Monitor blood glucose levels Hyperlipidemia on statin Seizure disorder Paranoid schizophrenia with auditory hallucinations Intellectual impairment Continue home medications Continues to hear voices - seen by psychiatry - at baseline Stable DVT Px: continue Xarelto Total Time Total Time Spent Total Time Spent (In Minutes): 40 Discharge Plan Discharge Items Patient Disposition: Transfer [facility] Fac Reason For Visit: NONWEIGHTBEARING STATUS REQUIRING SNF PLACEMENT Discharge Diagnosis: Ambulatory dysfunction Left tibial plateau fracture - NWB status Activity: Per Instructions section Non-emergency contact: Primary Care Provider and Surgeon Call non-emergency contact if: you have any medication questions and your symptoms worsen Follow-up/Referrals: Delmy Jacobsen PA-C [Primary Care Provider] - Diet: Carb Consistent or DM2 Addtl Attending Provider Instructions: Follow up with primary care doctor and orthopedic surgeon. Review discharge summary for more detail. Pending Studies at Discharge: No Stand-Alone Forms: My [facility] Skilled Items Patient informed of condition?: Yes DNR: No Discharge Level of Care: Skilled Communicable Disease: No Discharge Prognosis: Stable Lines: None Urinary Catheter: No Medications and DC Order Prescriptions: Continued fluticasone propionate 50 mcg/actuation spray,suspension 2 sprays INTNAS HS levetiracetam [Keppra] 250 mg tablet 250 mg PO BID 90 Days Qty: 180 1RF phenytoin sodium extended [Dilantin Extended] 100 mg capsule 200 mg PO BID 90 Days Qty: 360 3RF atorvastatin 40 mg tablet 40 mg PO HS glimepiride 2 mg tablet 4 mg PO QAM Women's One Daily 18 mg iron-400 mcg-500 mg Ca Tablet 1 tab PO QAM vitamin B complex Tablet 1 tab PO QAM polyethylene glycol 3350 [Miralax] 17 gram powder in packet 17 g PO BID Rx Instructions: HOLD FOR LOOSE STOOLS ammonium lactate 12 % cream 1 applic TOPICAL QAM Rx Instructions: Apply to feet. glimepiride 1 mg Tablet 1 mg PO DAILY PRN (Reason: BSG >300.) triamcinolone acetonide 0.1 % cream 1 applic TOPICAL BID PRN (Reason: Rash) Rx Instructions: apply to right buttocks prn rash valacyclovir 500 mg Tablet 500 mg PO DAILY calcium citrate-vitamin D3 [Calcium Citrate + D] 315 mg-5 mcg (200 unit) Tablet 2 tab PO QAM Qty: 0 Rx Instructions: two tablets daily albuterol sulfate [Ventolin HFA] 90 mcg/actuation Hfa Aerosol Inhaler 2 puff inhalation QIDR PRN (Reason: shortness of breath or wheezing) Qty: 6.7 0RF dextromethorphan-guaifenesin [Robitussin Cough-Chest Samm DM] 5-100 mg/5 mL Liquid 10 ml PO Q6H PRN (Reason: cough) Qty: 118 0RF famotidine 40 mg tablet 40 mg PO HS diphenhydramine HCl [Benadryl Allergy] 25 mg Tablet 25 mg PO .Q4-6 PRN (Reason: Allergy Symptoms) Mucinex DM 30-600 mg Tablet Extended Release 12 Hr 1 - 2 tab PO Q12H PRN (Reason: Nasal Congestion) acetaminophen [Tylenol Extra Strength] 500 mg tablet 1,000 mg PO Q6 PRN (Reason: Pain) Rx Instructions: Do not take >6 caplets in 24 hr. Tradjenta 5 mg tablet 5 mg PO DAILY bisacodyl 10 mg Suppository 10 mg VT DAILY PRN (Reason: constipation) Qty: 30 0RF Xarelto 10 mg tablet 10 mg PO QAM clozapine 200 mg tablet 200 mg PO HS sennosides-docusate sodium [Senokot-S] 8.6-50 mg Tablet 1 tab PO BID Qty: 60 0RF Rx Instructions: hold for diarrhea Discharge Orders: Discharge Order (Routine); Ordered 10/26/23 Ordered By: Jamir Huertas Admission Data Admit Date/Time: 10/14/23 18:08 Attending Provider: Jamir Huertas Admit Provider: Debby Metz Primary Care Provider: Delmy Jacobsen Other Providers: Debby Metz; [place]; [facility]; [facility]; Cm Moreland; Brittany Santos; Phong Dover; Wing Perez Jr; Kristie Reyes; Richa Onofre; Otoniel Urias Other Interventions: Discharge Summary Assessment (RN) Last Done: 10/26/23 11:57
[2023-10-26 12:02] VITALS: BP 93/58; PULSE 72
== END 2023-10-26 14:01 | DRG 560 ==
LOC: ED 13:26 → SUATTDRO 18:08 → 3N 18:08

== ENCOUNTER 2023-11-29 17:29 | Inpatient (IN) ==
--- NOTE | 2023-11-29 17:41 | Emergency Department Note ---
Impression & Plan Fall, Abrasion of face, Contusion of face ED Provider Note NAME: ORLANDO LESLIE AGE: 63 SEX: F : 1960 ARRIVES VIA: Ambulance INFORMANT: EMS ED PROVIDER(S): Daniel Alvares DO CHIEF COMPLAINT: Fall out of chair HPI: Patient is a 63-year-old female with a past medical history ambulatory dysfunction with a fractured tibia plateau, weakness, gastric distention, GERD, HSV, encephalopathy, nonverbal who presents to the ER as she was sitting in a chair. She fell out of bed and hit her head on the table. There was no loss consciousness. This occurred around 12:00. She does take Xarelto. Per report from correction she fell around 130 out of the wheelchair. Family wanted her to be seen. History is limited as patient is nonverbal. Floor Covering Installer eventually presented at bedside and notes that patient for the past 10 days has been nonverbal has not been acting right has been altered. She notes that they did increase her Dilantin and Keppra levels at about that time. ADDITIONAL HISTORY OBTAINED: Additional history obtained from EMS and nursing staff as described above Chronic Medical/Social Conditions Affecting Care: Per HPI PAST MEDICAL HISTORY:See Below PAST SURGICAL HISTORY:See Below FAMILY HISTORY:See Below SOCIAL HISTORY:See Below HOME MEDICATIONS:See Below ALLERGIES:See Below VITALS:See Below PHYSICAL EXAMINATION: GENERAL: Sitting up in bed, alert, nonverbal HEAD: Bruising with contusion to the right eyebrow EYE EXAM: normal conjunctiva. PERRL and EOM's grossly intact. OROPHARYNX: no exudate, no erythema, lips, buccal mucosa, and tongue normal and mucous membranes are moist NECK: supple, no nuchal rigidity, no adenopathy, non-tender LUNGS: Clear to auscultation. Normal chest wall mechanics HEART: no murmurs, S1 normal and S2 normal ABDOMEN: abdomen soft, non-tender, normo-active bowel sounds, no masses, no rebound or guarding. UPPER EXTREMITIES: upper extremities are grossly normal. LOWER EXTREMITIES: No pitting edema. NEURO EXAM: Awake alert moving all extremities, nonverbal, gives a thumbs up and squeezes both upper extremities and wiggles toes. MEDICAL DECISION MAKING: Patient is a 63-year-old female who presents ER for the above-stated complaint. IV was established blood was obtained. Labs show no significant leukocytosis or anemia. BMP along with LFTs bilirubin was unremarkable. UA was obtained after admission and was contaminated. Will defer to the hospitalist as this resulted after admission. Patient CT of the head, face and cervical spine was unremarkable. With the significant worsening mental status discussed case with Dr. Moreno for further evaluation management treatment. Consults/Care Managements Discussions: Per [facility] Triage Nursing notes reviewed. Limited review of prior medical records performed Vital Signs: reviewed and remarkable for no significant abnormalities Differential diagnosis: Differential diagnoses include major intracranial, cervical, spinal, thoracic, abdominal, pelvic and neurologic injury. Fracture, contusion, sprain, strain, laceration, abrasions included as well. ER treatment provided: See below Diagnostics interpreted by me include EKG and cardiac monitoring as listed below: -Cardiac Monitoring: An order was placed for continuous cardiac monitoring. The monitor shows a rate of 72 with sinus rhythm. -ECG: Sinus rhythm rate 73 Normal axis No PVCs QTc 438 -Laboratory studies:Interpreted by me as stated above in MDM and shown below. Imaging studies: Xrays: As interpreted by me:none CTs show: CT of the head per my preliminary interpretation shows no obvious large bleed CT head, face and cervical spine show no acute pathology Procedures: None Critical Care: None Past Med/Surg History Problem List (Updated 11/29/23 @ 19:02 by Daniel Alvares DO) Contusion of face (Acute) Abrasion of face (Acute) Fall (Acute) Fracture of tibial plateau (Acute) Ambulatory dysfunction (Acute) Tibial plateau fracture, left (Acute) Constipation in female Elevated lactic acid level (Acute) Dizziness (Acute) Weakness (Acute) Abdominal distension (Acute) Leukocytosis (Acute) Lethargy (Acute) Gastric distention (Acute) Elevated lactic acid level (Acute) Altered mental status (Acute) Colon distention Aspiration pneumonia Sepsis Seizure disorder (Chronic) Gastric distention HSV (herpes simplex virus) anogenital infection GERD (gastroesophageal reflux disease) Dyslipidemia Ambulatory dysfunction Acute alteration in mental status (Acute) Generalized weakness (Acute) Influenza A (Acute) 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 Acute encephalopathy Acute confusion (Acute) Generalized weakness (Acute) Elevated lactic acid level (Acute) COVID-19 (Acute) Weight loss Intellectual delay DMII (diabetes mellitus, type 2) Hyperammonemia On m[facility] drug therapy Ataxia History of cellulitis (Acute) Failure of outpatient treatment (Acute) Generalized weakness (Acute) Dehydration (Acute) Acute dehydration SARS-CoV-2 positive Metabolic encephalopathy UTI (urinary tract infection) (Acute) Pneumonia (Acute) Bilateral pneumonia (Acute) Acute UTI (Acute) Acute hyperglycemia (Acute) Paranoid schizophrenia (Acute) Diabetes mellitus type 2 in nonobese Abnormal urinalysis Sepsis (Acute) Ulnar neuropathy at elbow of left upper extremity Depression (Acute) Depression with anxiety (Acute) Complex partial seizure (Acute) Gait disturbance Left-sided weakness Mental disability (Acute 08/04/11) Pneumonia (Acute 08/04/11) Diabetes (Chronic) Hypertension (Chronic) Schizophrenia (Chronic) Medical History (Updated 11/29/23 @ 19:02 by Daniel Alvares DO) Weakness Heart murmur Onychomycosis Surgical History History of colonoscopy Family History Mother Diabetes Other Seizures Social History Smoking Status: Never smoker Second Hand Exposure: No; Do You Dip or Chew Tobacco: No; Hx Alcohol Use: No Hx Substance Use: No Preferred Language: Slovenian Communication Ability: Impaired Communication Ability Comment: Intellectual Disability Visual Impairment: No Limitations Hearing Ability: Normal Street Light Repairer Required: No Beliefs That Will Affect Care: None marital status: Single Current Living Situation: Other Current Living Situation Comment: [facility] current occupational status: disabled Feels Safe at Home: Yes Assistive Devices: Walker and Wheelchair Allergies Allergies Allergy/AdvReac Type Severity Reaction Status Date / Time divalproex sodium Allergy Unknown Unknown Verified 10/14/23 16:49 [From Depakote] salicylates Allergy Unknown Unknown Verified 10/14/23 16:49 valproic acid Allergy Unknown Unknown Verified 10/14/23 16:49 aspirin AdvReac Severe STOMACH Verified 10/14/23 16:49 ULCER BLEEDING Home Meds Home Medications Medication Instructions Recorded Confirmed atorvastatin 40 mg tablet 40 mg PO HS 07/17/18 10/14/23 glimepiride 2 mg tablet 4 mg PO QAM 07/17/18 10/14/23 multivit-iron 18 mg-folic acid 400 1 tab PO QAM 03/03/19 05/30/24 mcg-calcium 500 mg-minerals tablet (Women's One Daily) vitamin B complex 1 tab PO QAM 08/25/18 10/14/23 fluticasone propionate 50 2 sprays intranasal HS 02/15/19 10/14/23 mcg/actuation nasal spray,suspension ammonium lactate 12 % topical cream 1 applic topical QAM 05/21/19 10/14/23 triamcinolone acetonide 0.1 % 1 applic topical BID PRN Rash 07/10/21 10/14/23 topical cream valacyclovir 500 mg tablet 500 mg PO DAILY 02/18/22 10/14/23 glimepiride 1 mg tablet 1 mg PO DAILY PRN BSG >300. 10/14/22 10/14/23 polyethylene glycol 3350 17 gram 17 g PO BID 10/19/22 10/14/23 oral powder packet (Miralax) calcium citrate 315 mg-vitamin D3 2 tab PO QAM ##0 02/11/23 10/14/23 5 mcg (200 unit) tablet (Calcium Citrate + D) acetaminophen 500 mg tablet 1,000 mg PO Q6 PRN Pain 06/07/23 10/14/23 (Tylenol Extra Strength) dextromethorphan-guaifenesin 30 1 - 2 tab PO Q12H PRN Nasal 06/07/23 10/14/23 mg-600 mg tablet extended Congestion [id number] hr (Mucinex DM) diphenhydramine HCl 25 mg tablet 25 mg PO .Q4-6 PRN Allergy Symptoms 06/07/23 10/14/23 (Benadryl Allergy) famotidine 40 mg tablet 40 mg PO HS 06/07/23 10/14/23 linagliptin 5 mg tablet (Tradjenta) 5 mg PO DAILY 08/15/23 10/14/23 clozapine 200 mg tablet 200 mg PO HS 10/14/23 10/14/23 rivaroxaban 10 mg tablet (Xarelto) 10 mg PO QAM 10/14/23 10/14/23 Previous Rx's Medication Instructions Recorded albuterol sulfate 90 mcg/actuation 2 puff inhalation QIDR PRN 03/03/23 aerosol inhaler (Ventolin HFA) shortness of breath or wheezing #6.7 grams dextromethorphan-guaifenesin 5 10 ml PO Q6H PRN cough #118 mL 03/03/23 mg-100 mg/5 mL oral liquid (Robitussin Cough-Chest Congestion DM) bisacodyl 10 mg rectal suppository 10 mg MT DAILY PRN constipation 08/23/23 #30 ea levetiracetam 250 mg tablet 250 mg PO BID 90 days #180 tabs 08/30/23 (Keppra) phenytoin sodium extended 100 mg 200 mg (2 x 100 mg) PO BID 90 days 08/30/23 capsule (Dilantin Extended) #360 caps sennosides 8.6 mg-docusate sodium 1 tab PO BID #60 tabs 09/21/23 50 mg tablet (Senokot-S) Results & Data (ED) Vital Signs Vital Signs - 24 hr 11/29/23 17:35 11/29/23 17:37 11/29/23 17:39 Temperature 37.0 C Temperature Source Oral Pulse Rate 78 79 Pulse Rate [Left Apical] Pulse Rhythm Regular Pulse Strength Normal Pulse Strength [Bilateral Carotid] Normal Respiratory Rate 18 14 Respiratory Effort / Characteristics Non-Labored Respiratory Depth Normal Respiratory Pattern Regular Blood Pressure 134/104 H Blood Pressure [Right Arm] Blood Pressure Mean 114 Blood Pressure Mean [Right Arm] Blood Pressure Position Lying Blood Pressure Position [Right Arm] Pulse Oximetry 98 98 Oxygen Delivery Method Room Air Room Air Room Air Sepsis Recent Fever Within 48 Hours No Sepsis New/Unexplained Change in Mental Status N/A Sepsis Action Taken by Nursing No Action Required 11/29/23 18:08 11/29/23 18:12 11/29/23 18:23 Temperature Temperature Source Pulse Rate 76 Pulse Rate [Left Apical] 73 Pulse Rhythm Pulse Strength Pulse Strength [Bilateral Carotid] Respiratory Rate 21 15 Respiratory Effort / Characteristics Non-Labored Spontaneous Respiratory Depth Normal Respiratory Pattern Regular Blood Pressure 129/72 Blood Pressure [Right Arm] 113/58 L Blood Pressure Mean 102 Blood Pressure Mean [Right Arm] 76 Blood Pressure Position Blood Pressure Position [Right Arm] Semi-fowlers Pulse Oximetry 97 99 Oxygen Delivery Method Room Air Room Air Sepsis Recent Fever Within 48 Hours Sepsis New/Unexplained Change in Mental Status Sepsis Action Taken by Nursing 11/29/23 18:27 11/29/23 18:30 11/29/23 18:30 Temperature Temperature Source Pulse Rate 74 Pulse Rate [Left Apical] 73 Pulse Rhythm Pulse Strength Pulse Strength [Bilateral Carotid] Respiratory Rate 17 17 Respiratory Effort / Characteristics Non-Labored Spontaneous Respiratory Depth Normal Respiratory Pattern Regular Blood Pressure 119/71 Blood Pressure [Right Arm] Blood Pressure Mean 95 Blood Pressure Mean [Right Arm] Blood Pressure Position Blood Pressure Position [Right Arm] Pulse Oximetry 99 98 Oxygen Delivery Method Room Air Room Air Sepsis Recent Fever Within 48 Hours Sepsis New/Unexplained Change in Mental Status Sepsis Action Taken by Nursing 11/29/23 18:45 11/29/23 18:47 11/29/23 19:06 Temperature Temperature Source Pulse Rate 76 78 75 Pulse Rate [Left Apical] Pulse Rhythm Pulse Strength Pulse Strength [Bilateral Carotid] Respiratory Rate 19 14 Respiratory Effort / Characteristics Respiratory Depth Respiratory Pattern Blood Pressure Blood Pressure [Right Arm] Blood Pressure Mean Blood Pressure Mean [Right Arm] Blood Pressure Position Blood Pressure Position [Right Arm] Pulse Oximetry 98 99 Oxygen Delivery Method Room Air Room Air Sepsis Recent Fever Within 48 Hours Sepsis New/Unexplained Change in Mental Status Sepsis Action Taken by Nursing 11/29/23 19:27 11/29/23 19:30 11/29/23 19:33 Temperature Temperature Source Pulse Rate 75 74 Pulse Rate [Left Apical] Pulse Rhythm Pulse Strength Pulse Strength [Bilateral Carotid] Respiratory Rate 12 18 Respiratory Effort / Characteristics Respiratory Depth Respiratory Pattern Blood Pressure 127/85 Blood Pressure [Right Arm] Blood Pressure Mean 107 Blood Pressure Mean [Right Arm] Blood Pressure Position Blood Pressure Position [Right Arm] Pulse Oximetry 95 100 Oxygen Delivery Method Room Air Room Air Sepsis Recent Fever Within 48 Hours Sepsis New/Unexplained Change in Mental Status Sepsis Action Taken by Nursing 11/29/23 19:42 11/29/23 19:57 11/29/23 20:00 Temperature Temperature Source Pulse Rate 75 75 Pulse Rate [Left Apical] Pulse Rhythm Pulse Strength Pulse Strength [Bilateral Carotid] Respiratory Rate 21 21 Respiratory Effort / Characteristics Respiratory Depth Respiratory Pattern Blood Pressure 130/101 H Blood Pressure [Right Arm] Blood Pressure Mean 106 Blood Pressure Mean [Right Arm] Blood Pressure Position Blood Pressure Position [Right Arm] Pulse Oximetry 99 99 Oxygen Delivery Method Room Air Room Air Sepsis Recent Fever Within 48 Hours Sepsis New/Unexplained Change in Mental Status Sepsis Action Taken by Nursing 11/29/23 20:00 11/29/23 20:12 11/29/23 20:31 Temperature Temperature Source Pulse Rate 76 71 Pulse Rate [Left Apical] Pulse Rhythm Pulse Strength Pulse Strength [Bilateral Carotid] Respiratory Rate 22 13 Respiratory Effort / Characteristics Respiratory Depth Respiratory Pattern Blood Pressure 128/74 Blood Pressure [Right Arm] Blood Pressure Mean 96 Blood Pressure Mean [Right Arm] Blood Pressure Position Blood Pressure Position [Right Arm] Pulse Oximetry 98 100 Oxygen Delivery Method Room Air Room Air Sepsis Recent Fever Within 48 Hours Sepsis New/Unexplained Change in Mental Status Sepsis Action Taken by Nursing 11/29/23 20:33 11/29/23 20:54 11/29/23 21:09 Temperature Temperature Source Pulse Rate 72 77 81 Pulse Rate [Left Apical] Pulse Rhythm Pulse Strength Pulse Strength [Bilateral Carotid] Respiratory Rate 13 17 19 Respiratory Effort / Characteristics Respiratory Depth Respiratory Pattern Blood Pressure Blood Pressure [Right Arm] Blood Pressure Mean Blood Pressure Mean [Right Arm] Blood Pressure Position Blood Pressure Position [Right Arm] Pulse Oximetry Oxygen Delivery Method Sepsis Recent Fever Within 48 Hours Sepsis New/Unexplained Change in Mental Status Sepsis Action Taken by Nursing 11/29/23 21:12 Temperature Temperature Source Pulse Rate 75 Pulse Rate [Left Apical] Pulse Rhythm Pulse Strength Pulse Strength [Bilateral Carotid] Respiratory Rate 16 Respiratory Effort / Characteristics Respiratory Depth Respiratory Pattern Blood Pressure Blood Pressure [Right Arm] Blood Pressure Mean Blood Pressure Mean [Right Arm] Blood Pressure Position Blood Pressure Position [Right Arm] Pulse Oximetry Oxygen Delivery Method Sepsis Recent Fever Within 48 Hours Sepsis New/Unexplained Change in Mental Status Sepsis Action Taken by Nursing Laboratory Data 11/29/23 18:21 11/29/23 18:22 Lab Results 11/29/23 11/29/23 11/29/23 Range/Units 17:39 17:44 18:21 WBC Cancelled 6.29 RBC Cancelled 4.68 Hgb Cancelled 13.8 POC Hgb 13.9 (12.0-16.0) g/dl Hct Cancelled 41.9 POC Hct 41 (37-47) % MCV Cancelled 89.5 MCH Cancelled 29.5 MCHC Cancelled 32.9 RDW Std Deviation Cancelled 46.0 RDW Coeff of Liliana Cancelled 14.1 Plt Count Cancelled 146 MPV Cancelled 10.8 Immature Gran % (Auto) Cancelled 0.6 Neut % (Auto) Cancelled 66.0 Lymph % (Auto) Cancelled 23.1 [place] % (Auto) Cancelled 10.0 Eos % (Auto) Cancelled 0.0 Baso % (Auto) Cancelled 0.3 Neut # (Auto) Cancelled 4.15 Lymph # (Auto) Cancelled 1.45 [place] # (Auto) Cancelled 0.63 H Eos # (Auto) Cancelled 0.00 Baso # (Auto) Cancelled 0.02 Immature Gran # (Auto) Cancelled 0.04 Absolute Nucleated RBC Cancelled Nucleated RBC % (auto) Cancelled Neutrophils % (Manual) Cancelled Band Neutrophils % Cancelled Lymphocytes % (Manual) Cancelled Prolymphocyte % Cancelled Reactive Lymphs % (Man) Cancelled Monocytes % (Manual) Cancelled Eosinophils % (Manual) Cancelled Basophils % (Manual) Cancelled Metamyelocytes % (Man) Cancelled Myelocytes % (Man) Cancelled Promyelocytes % (Man) Cancelled Blast Cells % (Manual) Cancelled Plasma Cell % (Manual) Cancelled Other Cells % Cancelled Nucleated RBC % Cancelled Neutrophils # (Manual) Cancelled Band Neutrophils # Cancelled Total Absolute Neuts Cancelled Lymphocytes # (Manual) Cancelled Prolymphocyte # Cancelled Reactive Lymphs # Cancelled Total Abs Lymphocytes Cancelled Monocytes # (Manual) Cancelled Eosinophils # (Manual) Cancelled Basophils # (Manual) Cancelled Metamyelocytes # (Man) Cancelled Myelocytes # (Manual) Cancelled Promyelocytes # (Man) Cancelled Blast Cells # (Man) Cancelled Plasma Cell # (Manual) Cancelled Other Cells # Cancelled Nucleated RBCs # (Man) Cancelled Hypersegmented Neuts Cancelled Hyposegmented Neuts Cancelled Hypogranular Neuts Cancelled Large Granular Lymphs Cancelled # Lrg Granular Lymphs Cancelled Hairy Cells Cancelled Smudge Cells Cancelled Toxic Granulation Cancelled Toxic Vacuolation Cancelled Dohle Bodies Cancelled Lynne Rods Cancelled Platelet Estimate Cancelled Hypogranular Platelets Cancelled Giant Platelets Cancelled Platelet Satelliting Cancelled RBC Morphology Cancelled Polychromasia Cancelled Hypochromasia Cancelled Poikilocytosis Cancelled Basophilic Stippling Cancelled Anisocytosis Cancelled Microcytosis Cancelled Macrocytosis Cancelled Spherocytes Cancelled Pappenheimer Bodies Cancelled Sickle Cells Cancelled Target Cells Cancelled Tear Drop Cells Cancelled Ovalocytes Cancelled Stomatocytes Cancelled [place] Bodies Cancelled Echinocytes Cancelled Acanthocytes (Spur) Cancelled Rouleaux Cancelled RBC Agglutinates Cancelled Schistocytes Cancelled Sezary Cell Cancelled POC Sodium 142 (135-144) mmol/L Sodium 142 (136-145) mmol/L POC Potassium 4.1 (3.3-5.0) mmol/L Potassium TNP POC Chloride 103 (101-112) mmol/L Chloride 105 (98-107) mmol/L Carbon Dioxide 31 (21-32) mmol/L POC Total CO2 30 (24-31) mmol/L Anion Gap 6 (3-11) POC Anion Gap 13.0 L (16-25) mmol/L POC BUN 16 (7-18) mg/dl BUN 15 (6-23) mg/dl Creatinine 0.60 (0.6-1.2) mg/dl POC Creatinine 0.6 (0.6-1.3) mg/dl Est Cr Clr Drug Dosing 88.6 ml/min Est GFR ( Amer) 114.0 ml/min Est GFR (Non-Af Amer) 98.4 ml/min BUN/Creatinine Ratio 25.0 H (10-20) Glucose 197 H (70-99(Fasting)) mg/dl POC Glucose (other) 202 H (70-99) mg/dl Calcium 9.7 (8.6-10.3) mg/dl POC Ioniz Calcium Justin 1.19 (1.12-1.32) mmol/l Total Bilirubin (0.2-1.0) mg/dl Direct Bilirubin (0-0.2) mg/dl AST (13-39) U/L ALT (7-52) U/L Alkaline Phosphatase (34-104) U/L Total Protein (6.0-8.3) gm/dl Albumin (3.4-5.0) gm/dl Urine Color Urine Appearance (Clear) Urine pH (4.5-7.5) Ur Specific [place] (1.000-1.030) Urine Protein (Negative) Urine Glucose (UA) (Negative) Urine Ketones (Negative) Urine Blood (Negative) Urine Nitrite (Negative) Urine Bilirubin (Negative) Urine Urobilinogen (Negative) Ur Leukocyte Esterase (Negative) Urine WBC (Auto) (0-5) /hpf Urine RBC (Auto) (0-2) /hpf U Hyaline Cast (Auto) (0-2) /lpf U Epithel Cells (Auto) (0-2) /hpf Urine Bacteria (Auto) (None Seen) Blood Parasites ID Cancelled 07/15/24 07/15/24 Range/Units 18:22 20:27 WBC RBC Hgb POC Hgb (12.0-16.0) g/dl Hct POC Hct (37-47) % MCV MCH MCHC RDW Std Deviation RDW Coeff of Liliana Plt Count MPV Immature Gran % (Auto) Neut % (Auto) Lymph % (Auto) [place] % (Auto) Eos % (Auto) Baso % (Auto) Neut # (Auto) Lymph # (Auto) [place] # (Auto) Eos # (Auto) Baso # (Auto) Immature Gran # (Auto) Absolute Nucleated RBC Nucleated RBC % (auto) Neutrophils % (Manual) Band Neutrophils % Lymphocytes % (Manual) Prolymphocyte % Reactive Lymphs % (Man) Monocytes % (Manual) Eosinophils % (Manual) Basophils % (Manual) Metamyelocytes % (Man) Myelocytes % (Man) Promyelocytes % (Man) Blast Cells % (Manual) Plasma Cell % (Manual) Other Cells % Nucleated RBC % Neutrophils # (Manual) Band Neutrophils # Total Absolute Neuts Lymphocytes # (Manual) Prolymphocyte # Reactive Lymphs # Total Abs Lymphocytes Monocytes # (Manual) Eosinophils # (Manual) Basophils # (Manual) Metamyelocytes # (Man) Myelocytes # (Manual) Promyelocytes # (Man) Blast Cells # (Man) Plasma Cell # (Manual) Other Cells # Nucleated RBCs # (Man) Hypersegmented Neuts Hyposegmented Neuts Hypogranular Neuts Large Granular Lymphs # Lrg Granular Lymphs Hairy Cells Smudge Cells Toxic Granulation Toxic Vacuolation Dohle Bodies Lynne Rods Platelet Estimate Hypogranular Platelets Giant Platelets Platelet Satelliting RBC Morphology Polychromasia Hypochromasia Poikilocytosis Basophilic Stippling Anisocytosis Microcytosis Macrocytosis Spherocytes Pappenheimer Bodies Sickle Cells Target Cells Tear Drop Cells Ovalocytes Stomatocytes [place] Bodies Echinocytes Acanthocytes (Spur) Rouleaux RBC Agglutinates Schistocytes Sezary Cell POC Sodium (135-144) mmol/L Sodium (136-145) mmol/L POC Potassium (3.3-5.0) mmol/L Potassium 3.8 POC Chloride (101-112) mmol/L Chloride (98-107) mmol/L Carbon Dioxide (21-32) mmol/L POC Total CO2 (24-31) mmol/L Anion Gap (3-11) POC Anion Gap (16-25) mmol/L POC BUN (7-18) mg/dl BUN (6-23) mg/dl Creatinine (0.6-1.2) mg/dl POC Creatinine (0.6-1.3) mg/dl Est Cr Clr Drug Dosing ml/min Est GFR ( Amer) ml/min Est GFR (Non-Af Amer) ml/min BUN/Creatinine Ratio (10-20) Glucose (70-99(Fasting)) mg/dl POC Glucose (other) (70-99) mg/dl Calcium (8.6-10.3) mg/dl POC Ioniz Calcium Justin (1.12-1.32) mmol/l Total Bilirubin 0.3 (0.2-1.0) mg/dl Direct Bilirubin 0.1 (0-0.2) mg/dl AST 20 (13-39) U/L ALT 26 (7-52) U/L Alkaline Phosphatase 146 H (34-104) U/L Total Protein 6.7 (6.0-8.3) gm/dl Albumin 4.0 (3.4-5.0) gm/dl Urine Color Yellow Urine Appearance Turbid A (Clear) Urine pH 6.0 (4.5-7.5) Ur Specific [place] 1.024 (1.000-1.030) Urine Protein 1+ H (Negative) Urine Glucose (UA) 3+ H (Negative) Urine Ketones Trace H (Negative) Urine Blood Negative (Negative) Urine Nitrite Negative (Negative) Urine Bilirubin Negative (Negative) Urine Urobilinogen Negative (Negative) Ur Leukocyte Esterase Trace H (Negative) Urine WBC (Auto) 6-10 H (0-5) /hpf Urine RBC (Auto) 3-5 H (0-2) /hpf U Hyaline Cast (Auto) 3-5 H (0-2) /lpf U Epithel Cells (Auto) 0-2 (0-2) /hpf Urine Bacteria (Auto) 4+ H (None Seen) Blood Parasites ID Administered Medications Lactated Ringer's (Lr) 1,000 mls @ 80 mls/hr IV .[id number] Stop: 11/30/23 08:23 Last Admin: 11/29/23 20:53 Dose: 80 mls/hr Documented By: GLENN Discontinued Medications Lorazepam (Lorazepam 1 Mg/1 Ml Syr Ed Inj Use) 0.25 mg IV ONE STA Stop: 11/29/23 21:30 Last Admin: 11/29/23 21:56 Dose: 0.25 mg Documented By: [facility] Imaging Data Radiologist's Impression: Cervical Spine CT 11/29/23 17:37 CT SCAN OF THE CERVICAL SPINE CLINICAL HISTORY: Fall. COMPARISON STUDY: Cervical spine CT dated 06/07/2023. TECHNIQUE: CT scan of the cervical spine is performed from the skull base to the upper thoracic spine. Images are reviewed in the axial, sagittal, and coronal planes. IV contrast was not administered for this examination. A dose lowering technique was utilized adhering to the principles of ALARA. CT DOSE: 1334.18 mGy.cm FINDINGS: Skeletal structures: The skeletal structures are osteopenia. There is no evidence of fracture or subluxation involving the cervical spine. Vertebral body height and alignment are maintained. Anterior osteophytes are seen throughout. The odontoid process and lateral masses are intact. The atlantoaxial articulation is preserved noting productive degenerative change. The spinous processes appear intact. Intervertebral discs: The disc spaces are maintained. Central canal: A posterior disc osteophyte complex at C6-C7 likely contributes to acquired compromise of the central canal. Soft tissues: The prevertebral and paraspinous soft tissues are within normal limits. Calvarium: The visualized calvarium at the skull base appears intact. Brain parenchyma: Partially visualized brain parenchyma at the skull base is within normal limits. Sinuses and mastoids: The visualized paranasal sinuses are clear. The mastoid air cells are well pneumatized. Lung apices: Clear as visualized. IMPRESSION: There is no evidence of cervical spine fracture or subluxation. ACT 112: Negative or not required by law. Electronically signed by: Carlos Savage M.D. 11/29/2023 6:[address] 11/29/23 17:37 CT SCAN OF THE FACIAL BONES WITHOUT IV CONTRAST CLINICAL HISTORY: Fall. Facial injury. COMPARISON STUDY: No priors. TECHNIQUE: High-resolution CT scan of the facial bones is performed. Images are reviewed in the axial, sagittal, and coronal planes. IV contrast was not administered for this examination. A dose lowering technique was utilized adhering to the principles of ALARA. FINDINGS: The skeletal structures are osteopenic. There is no evidence of facial bone fracture. The bony orbits are intact and the orbital contents are within normal limits. The zygomatic arches, nasal bones, and pterygoid plates are preserved. The maxilla and mandible are intact. There are no layering blood products within the paranasal sinuses. The sinuses and mastoids are clear. The visualized calvarium and upper cervical spine are maintained. Partially imaged brain parenchyma is within normal limits. There is mild right periorbital soft tissue contusion. IMPRESSION: There is no evidence of facial bone fracture. ACT 112: Negative or not required by law. Electronically signed by: Carlos Savage M.D. 11/29/2023 6:[address] 11/29/23 17:37 CT SCAN OF THE BRAIN WITHOUT IV CONTRAST CLINICAL HISTORY: Fall. Head injury. COMPARISON STUDY: CT of the brain dated 09/22/2023. TECHNIQUE: Unenhanced axial CT scan of the brain is performed from the vertex to the skull base. A dose lowering technique was utilized adhering to the principles of ALARA. FINDINGS: Brain parenchyma: There is age-related involutional change noting minimal microangiopathic disease. There is no hemorrhage, mass effect, or evidence of acute territorial ischemia by CT criteria. Fernandez-white matter differentiation is preserved. No extra-axial fluid collection is seen. Ventricles, sulci, cisterns: Ventriculomegaly is similar to previous. Intracranial vasculature: There is atherosclerotic calcification of the cavernous carotid arteries. Calvarium: The skeletal structures are osteopenic. There is no depressed calvarial fracture. Sinuses and mastoids: The visualized paranasal sinuses are clear. The mastoid air cells are well pneumatized. Orbits: The bony orbits are grossly intact. There is right periorbital soft tissue contusion. IMPRESSION: There is no hemorrhage, mass effect, or evidence of acute territorial ischemia by CT criteria. ACT 112: Negative or not required by law. Electronically signed by: Carlos Savage M.D. 11/29/2023 6:10 PM Discharge Plan Visit Data Chief Complaint: Trauma Stated Complaint: FALL ED Provider: Daniel Alvares Discharge Problem: Fall, Abrasion of face, Contusion of face Patient Disposition: Home - Self-Care Discharge Instructions Interventions: ED Discharge Assessment Last Done: 11/29/23 22:21 Discharge Problem: Fall Qualifiers: Encounter type: initial encounter Qualified Code(s): W19.XXXA - Unspecified fall, initial encounter Abrasion of face Qualifiers: Encounter type: initial encounter Qualified Code(s): S00.81XA - Abrasion of other part of head, initial encounter Contusion of face Qualifiers: Encounter type: initial encounter Qualified Code(s): S00.83XA - Contusion of other part of head, initial encounter
[2023-11-29 17:57] LABS: iSTAT Creatinine 0.6 mg/dl (0.6-1.3); iSTAT Hemoglobin 13.9 g/dl (12.0-16.0); iSTAT Ionized Calcium 1.19 mmol/l (1.12-1.32); iSTAT Potassium 4.1 mmol/L (3.3-5.0)
--- NOTE | 2023-11-29 18:13 | CT Scan Report ---
CT SCAN OF THE BRAIN WITHOUT IV CONTRAST CLINICAL HISTORY: Fall. Head injury. COMPARISON STUDY: CT of the brain dated 09/22/2023. TECHNIQUE: Unenhanced axial CT scan of the brain is performed from the vertex to the skull base. A do se lowering technique was utilized adhering to the principles of ALARA. FINDINGS: Brain parenchyma: There is age-related involutional change noting minimal microangiopathic disease. T here is no hemorrhage, mass effect, or evidence of acute territorial ischemia by CT criteria. Fernandez-wh ite matter differentiation is preserved. No extra-axial fluid collection is seen. Ventricles, sulci, cisterns: Ventriculomegaly is similar to previous. Intracranial vasculature: There is atherosclerotic calcification of the cavernous carotid arteries. Calvarium: The skeletal structures are osteopenic. There is no depressed calvarial fracture. Sinuses and mastoids: The visualized paranasal sinuses are clear. The mastoid air cells are well pneu matized. Orbits: The bony orbits are grossly intact. There is right periorbital soft tissue contusion. IMPRESSION: There is no hemorrhage, mass effect, or evidence of acute territorial ischemia by CT bhumika grossman. ACT 112: Negative or not required by law. Electronically signed by: Carlos Savage M.D. 11/29/2023 6:10 PM
[2023-11-29 18:17] LABS: Anion Gap 6 (3-11); Blood Urea Nitrogen 15 mg/dl (6-23); Calcium 9.7 mg/dl (8.6-10.3); Carbon Dioxide 31 mmol/L (21-32); Chloride 105 mmol/L (98-107); Creatinine Clr Calc Pharmacy 88.6 ml/min; Est GFR (Non-African American) 98.4 ml/min; Glucose 197 mg/dl (70-99(Fasting)); Sodium 142 mmol/L (136-145)
--- NOTE | 2023-11-29 18:17 | CT Scan Report ---
CT SCAN OF THE FACIAL BONES WITHOUT IV CONTRAST CLINICAL HISTORY: Fall. Facial injury. COMPARISON STUDY: No priors. TECHNIQUE: High-resolution CT scan of the facial bones is performed. Images are reviewed in the axia l, sagittal, and coronal planes. IV contrast was not administered for this examination. A dose lower ing technique was utilized adhering to the principles of ALARA. FINDINGS: The skeletal structures are osteopenic. There is no evidence of facial bone fracture. The b koko orbits are intact and the orbital contents are within normal limits. The zygomatic arches, nasal bones, and pterygoid plates are preserved. The maxilla and mandible are intact. There are no layering blood products within the paranasal sinuses. The sinuses and mastoids are clear. The visualized calv arium and upper cervical spine are maintained. Partially imaged brain parenchyma is within normal mccormick its. There is mild right periorbital soft tissue contusion. IMPRESSION: There is no evidence of facial bone fracture. ACT 112: Negative or not required by law. Electronically signed by: Carlos Savage M.D. 11/29/2023 6:14 PM
--- NOTE | 2023-11-29 18:22 | CT Scan Report ---
CT SCAN OF THE CERVICAL SPINE CLINICAL HISTORY: Fall. COMPARISON STUDY: Cervical spine CT dated 06/07/2023. TECHNIQUE: CT scan of the cervical spine is performed from the skull base to the upper thoracic spine . Images are reviewed in the axial, sagittal, and coronal planes. IV contrast was not administered fo r this examination. A dose lowering technique was utilized adhering to the principles of ALARA. CT DOSE: 1334.18 mGy.cm FINDINGS: Skeletal structures: The skeletal structures are osteopenia. There is no evidence of fracture or subl uxation involving the cervical spine. Vertebral body height and alignment are maintained. Anterior os teophytes are seen throughout. The odontoid process and lateral masses are intact. The atlantoaxial articulation is preserved noting productive degenerative change. The spinous processes appear intact. Intervertebral discs: The disc spaces are maintained. Central canal: A posterior disc osteophyte complex at C6-C7 likely contributes to acquired compromise of the central canal. Soft tissues: The prevertebral and paraspinous soft tissues are within normal limits. Calvarium: The visualized calvarium at the skull base appears intact. Brain parenchyma: Partially visualized brain parenchyma at the skull base is within normal limits. Sinuses and mastoids: The visualized paranasal sinuses are clear. The mastoid air cells are well pneu matized. Lung apices: Clear as visualized. IMPRESSION: There is no evidence of cervical spine fracture or subluxation. ACT 112: Negative or not required by law. Electronically signed by: Carlos Savage M.D. 11/29/2023 6:20 PM
[2023-11-29 18:35] LABS: Basophils # (auto) 0.02 K/uL (0.00-0.20); Basophils % (auto) 0.3 %; Hematocrit (blood only) 41.9 % (37.0-47.0); Hemoglobin 13.8 g/dl (12.0-16.0); Immature Granulocytes # (auto) 0.04 K/uL (0.01-0.20); Immature Granulocytes % (auto) 0.6 %; Lymphocytes # (auto) 1.45 K/uL (1.20-3.40); Lymphocytes % (auto) 23.1 %; Mean Corpuscular Hemoglobin 29.5 pg (25.0-34.0); Mean Corpuscular Hgb Conc 32.9 g/dL (32.0-36.0); Mean Corpuscular Volume 89.5 fL (80.0-100.0); Mean Platelet Volume 10.8 fL (9.4-12.4); Monocytes # (auto) 0.63 K/uL (0.11-0.59); Neutrophils # (auto) 4.15 K/uL (1.40-6.50); Platelet Count 146 K/uL (130-400); RDW Coefficient of Variation 14.1 % (11.5-14.5); Red Blood Count 4.68 M/uL (4.20-5.40); White Blood Count 6.29 K/ul (4.8-10.8)
[2023-11-29 18:57] LABS: Potassium 3.8 mmol/L (3.5-5.1)
[2023-11-29 20:06] LABS: Bilirubin Direct 0.1 mg/dl (0-0.2); Bilirubin,Total 0.3 mg/dl (0.2-1.0); Total Protein 6.7 gm/dl (6.0-8.3)
[2023-11-29] MEDS: LACTATED RINGER'S 1,000 ML IV ONE (20:53)
[2023-11-29 21:05] LABS: Appearance Urine Turbid (Clear); Bacteria Urine Automated 4+ (None Seen); Bilirubin Urine Negative (Negative); Blood Urine Negative (Negative); Color Urine Yellow; Epithelial Cell Urine Auto 0-2 /hpf (0-2); Glucose Urine UA 3+ (Negative); Ketones Urine Trace (Negative); Leukocyte Esterase Urine Trace (Negative); Nitrite Urine Negative (Negative); Protein Urine 1+ (Negative); Specific Gravity Urine 1.024 (1.000-1.030); Urobilinogen Urine Negative (Negative)
--- NOTE | 2023-11-29 21:17 | History & Physical Report ---
Date of Service November 29, 2023 Assessment & Plan (1) Altered mental status: Plan: Bilateral repetitive eye blinking ? 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 SCDs while Xarelto on hold Full code Patient father requesting updates providers. Mr. Edmond Oneill, contact #[phone]. Secondary contact is Alicia Delgado [phone]. Text document was generated using [employer] voice recognition software. It may contain grammatical or spelling errors. Kindly contact undersigned for clarification of any documentation item in questi on. History of Present Illness Chief Complaint: Fall, confusion as per records Primary Care Provider: Delmy Jacobsen PA-C History obtained from ED provider and records. Limited history from patient secondary to hearing impairment/confusion. Medical history significant for DM2 on oral medications, hyperlipidemia, seizure disorder, paranoid schizophrenia, HSV dermatitis on chronic acyclovir suppression Rx, left tibial fracture currently on Xarelto for DVT prophylaxis, intellectual impairment Monthly admissions at [facility] since May,. Recent confinement last month for ambulatory dysfunction Patient discharged back to [facility]. Patient had fall from a chair at [facility] facility today. Subsequent trauma resulting in laceration right brow. No LOC. Patient more sluggish than usual as per staff. No incontinence symptoms. Patient brought to the ER for evaluation as per family request. Incessant bilateral eye blinking noted at the ER. Medical History as above Surgical History : None Family History : DM Personal/Social history : Non-smoker, no EtOH intake, disabled Allergies Allergy/AdvReac Type Severity Reaction Status Date / Time divalproex sodium Allergy Unknown Unknown Verified 10/14/23 16:49 [From Depakote] salicylates Allergy Unknown Unknown Verified 10/14/23 16:49 valproic acid Allergy Unknown Unknown Verified 10/14/23 16:49 aspirin AdvReac Severe STOMACH Verified 10/14/23 16:49 ULCER BLEEDING Home Medications Medication Instructions Recorded Confirmed Type atorvastatin 40 mg tablet 40 mg PO HS 07/17/18 11/30/23 History glimepiride 2 mg tablet 4 mg PO QAM 07/17/18 11/30/23 History multivit-iron 18 mg-folic acid 400 1 tab PO QAM 07/17/18 11/30/23 History mcg-calcium 500 mg-minerals tablet (Women's One Daily) vitamin B complex 1 tab PO QAM 08/25/18 11/30/23 History fluticasone propionate 50 2 sprays intranasal HS 02/15/19 11/30/23 History mcg/actuation nasal spray,suspension ammonium lactate 12 % topical cream 1 applic topical QAM 05/21/19 11/30/23 History triamcinolone acetonide 0.1 % 1 applic topical BID PRN Rash 07/10/21 11/30/23 History topical cream valacyclovir 500 mg tablet 500 mg PO DAILY 02/18/22 11/30/23 History glimepiride 1 mg tablet 1 mg PO DAILY PRN BSG >300. 10/14/22 11/30/23 History polyethylene glycol 3350 17 gram 17 g PO BID 10/19/22 11/30/23 History oral powder packet (Miralax) calcium citrate 315 mg-vitamin D3 2 tab PO QAM ##0 02/11/23 11/30/23 History 5 mcg (200 unit) tablet (Calcium Citrate + D) albuterol sulfate 90 mcg/actuation 2 puff inhalation QIDR PRN 03/03/23 11/30/23 Rx aerosol inhaler (Ventolin HFA) shortness of breath or wheezing #6.7 grams dextromethorphan-guaifenesin 5 10 ml PO Q6H PRN cough #118 mL 03/03/23 11/30/23 Rx mg-100 mg/5 mL oral liquid (Robitussin Cough-Chest Congestion DM) acetaminophen 500 mg tablet 1,000 mg PO Q6 PRN Pain 06/07/23 11/30/23 History (Tylenol Extra Strength) dextromethorphan-guaifenesin 30 1 - 2 tab PO Q12H PRN Nasal 06/07/23 11/30/23 History mg-600 mg tablet extended Congestion [id number] hr (Mucinex DM) diphenhydramine HCl 25 mg tablet 25 mg PO .Q4-6 PRN Allergy Symptoms 06/07/23 11/30/23 History (Benadryl Allergy) famotidine 40 mg tablet 40 mg PO HS 06/07/23 11/30/23 History linagliptin 5 mg tablet (Tradjenta) 5 mg PO DAILY 08/15/23 11/30/23 History bisacodyl 10 mg rectal suppository 10 mg VA DAILY PRN constipation 08/23/23 11/30/23 Rx #30 ea levetiracetam 250 mg tablet 250 mg PO BID 90 days #180 tabs 08/30/23 11/30/23 Rx (Keppra) phenytoin sodium extended 100 mg 200 mg (2 x 100 mg) PO BID 90 days 08/30/23 11/30/23 Rx capsule (Dilantin Extended) #360 caps sennosides 8.6 mg-docusate sodium 1 tab PO BID #60 tabs 09/21/23 11/30/23 Rx 50 mg tablet (Senokot-S) clozapine 200 mg tablet 200 mg PO HS 10/14/23 11/30/23 History rivaroxaban 10 mg tablet (Xarelto) 10 mg PO QAM 10/14/23 11/30/23 History Past Med/Surg History Problem List (Updated 11/29/23 @ 19:02 by Daniel Alvares DO) Contusion of face (Acute) Abrasion of face (Acute) Fall (Acute) Fracture of tibial plateau (Acute) Ambulatory dysfunction (Acute) Tibial plateau fracture, left (Acute) Constipation in female Elevated lactic acid level (Acute) Dizziness (Acute) Weakness (Acute) Abdominal distension (Acute) Leukocytosis (Acute) Lethargy (Acute) Gastric distention (Acute) Elevated lactic acid level (Acute) Altered mental status (Acute) Colon distention Aspiration pneumonia Sepsis Seizure disorder (Chronic) Gastric distention HSV (herpes simplex virus) anogenital infection GERD (gastroesophageal reflux disease) Dyslipidemia Ambulatory dysfunction Acute alteration in mental status (Acute) Generalized weakness (Acute) Influenza A (Acute) 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 Acute encephalopathy Acute confusion (Acute) Generalized weakness (Acute) Elevated lactic acid level (Acute) COVID-19 (Acute) Weight loss Intellectual delay DMII (diabetes mellitus, type 2) Hyperammonemia On fdc drug therapy Ataxia History of cellulitis (Acute) Failure of outpatient treatment (Acute) Generalized weakness (Acute) Dehydration (Acute) Acute dehydration SARS-CoV-2 positive Metabolic encephalopathy UTI (urinary tract infection) (Acute) Pneumonia (Acute) Bilateral pneumonia (Acute) Acute UTI (Acute) Acute hyperglycemia (Acute) Paranoid schizophrenia (Acute) Diabetes mellitus type 2 in nonobese Abnormal urinalysis Sepsis (Acute) Ulnar neuropathy at elbow of left upper extremity Depression (Acute) Depression with anxiety (Acute) Complex partial seizure (Acute) Gait disturbance Left-sided weakness Mental disability (Acute 08/04/11) Pneumonia (Acute 08/04/11) Diabetes (Chronic) Hypertension (Chronic) Schizophrenia (Chronic) Medical History (Updated 11/29/23 @ 19:02 by Daniel Alvares DO) Weakness Heart murmur Onychomycosis Surgical History History of colonoscopy Family History Mother Diabetes Other Seizures Social History Smoking Status: Never smoker Second Hand Exposure: No; Do You Dip or Chew Tobacco: No; Hx Alcohol Use: No Hx Substance Use: No Preferred Language: Hong Konger Communication Ability: Impaired Communication Ability Comment: Intellectual Disability Visual Impairment: No Limitations Hearing Ability: Normal Fire Official Required: No Beliefs That Will Affect Care: None marital status: Single Current Living Situation: Other Current Living Situation Comment: [employer] current occupational status: disabled Other Information That Helps Us Care for You: No Feels Safe at Home: Yes Safety Concerns: Feels Safe At This Time Assistive Devices: Walker and Wheelchair Review of Systems Review of Systems: Could not be reliably obtained secondary to confusion Physical Exam Physical Exam: GENERAL: Disoriented, hard of hearing, incessant bilateral eye blinking, no respiratory distress SKIN: Normal color, warm HEENT: [place] palpebral conjunctivae, no ptosis, dry buccal mucosa NECK : Supple, no tenderness CHEST : CTA, no tenderness HEART : RRR, no obvious murmurs ABDOMEN: Some distention, nontender EXTREMITIES : LLE cast, no other conspicuous deformities noted NEUROLOGIC : Disoriented, incessant bilateral eye blinking, no facial asymmetry, hard of hearing, gait and stance not assessed Results & Data Results & Data Vital Signs (Past 12 Hours) Vital Signs Temp Pulse Pulse Resp BP BP Pulse Ox 11/29/23 20:54 77 17 11/29/23 20:33 72 13 11/29/23 20:31 128/74 11/29/23 20:12 71 13 100 11/29/23 20:00 76 22 98 11/29/23 20:00 130/101 H 11/29/23 19:57 75 21 99 11/29/23 19:42 75 21 99 11/29/23 19:33 74 18 100 11/29/23 19:30 127/85 11/29/23 19:27 75 12 95 11/29/23 19:06 75 14 99 11/29/23 18:47 78 11/29/23 18:45 76 19 98 11/29/23 18:30 74 17 98 11/29/23 18:30 119/71 11/29/23 18:27 73 17 99 11/29/23 18:23 73 15 113/58 L 99 11/29/23 18:12 76 21 97 11/29/23 18:08 129/72 11/29/23 17:39 79 14 98 11/29/23 17:37 11/29/23 17:35 37.0 C 78 18 134/104 H 98 O2 Del Method 11/29/23 20:54 11/29/23 20:33 11/29/23 20:31 11/29/23 20:12 Room Air 11/29/23 20:00 Room Air 11/29/23 20:00 11/29/23 19:57 Room Air 11/29/23 19:42 Room Air 11/29/23 19:33 Room Air 11/29/23 19:30 11/29/23 19:27 Room Air 11/29/23 19:06 Room Air 11/29/23 18:47 11/29/23 18:45 Room Air 11/29/23 18:30 Room Air 11/29/23 18:30 11/29/23 18:27 Room Air 11/29/23 18:23 Room Air 11/29/23 18:12 Room Air 11/29/23 18:08 11/29/23 17:39 Room Air 11/29/23 17:37 Room Air 11/29/23 17:35 Room Air Laboratory Results Laboratory Results WBC 6.29 K/ul (4.8-10.8) 11/29/23 18:21 RBC 4.68 M/uL (4.20-5.40) 11/29/23 18:21 Hgb 13.8 g/dl (12.0-16.0) 11/29/23 18:21 POC Hgb 13.9 g/dl (12.0-16.0) 11/29/23 17:44 Hct 41.9 % (37.0-47.0) 11/29/23 18:21 POC Hct 41 % (37-47) 11/29/23 17:44 MCV 89.5 fL (80.0-100.0) 11/29/23 18:21 MCH 29.5 pg (25.0-34.0) 11/29/23 18:21 MCHC 32.9 g/dL (32.0-36.0) 11/29/23 18:21 RDW Std Deviation 46.0 fL (36.4-46.3) 11/29/23 18:21 RDW Coeff of Liliana 14.1 % (11.5-14.5) 11/29/23 18:21 Plt Count 146 K/uL (130-400) 11/29/23 18:21 MPV 10.8 fL (9.4-12.4) 11/29/23 18:21 Immature Gran % (Auto) 0.6 % 11/29/23 18:21 Neut % (Auto) 66.0 % 11/29/23 18:21 Lymph % (Auto) 23.1 % 11/29/23 18:21 Brooks % (Auto) 10.0 % 11/29/23 18:21 Eos % (Auto) 0.0 % 11/29/23 18:21 Baso % (Auto) 0.3 % 11/29/23 18:21 Neut # (Auto) 4.15 K/uL (1.40-6.50) 11/29/23 18:21 Lymph # (Auto) 1.45 K/uL (1.20-3.40) 11/29/23 18:21 Brooks # (Auto) 0.63 K/uL (0.11-0.59) H 11/29/23 18:21 Eos # (Auto) 0.00 K/uL (0.00-0.50) 11/29/23 18:21 Baso # (Auto) 0.02 K/uL (0.00-0.20) 11/29/23 18:21 Immature Gran # (Auto) 0.04 K/uL (0.01-0.20) 11/29/23 18:21 Absolute Nucleated RBC Cancelled 11/29/23 17:39 Nucleated RBC % (auto) Cancelled 11/29/23 17:39 Neutrophils % (Manual) Cancelled 11/29/23 17:39 Band Neutrophils % Cancelled 11/29/23 17:39 Lymphocytes % (Manual) Cancelled 11/29/23 17:39 Prolymphocyte % Cancelled 11/29/23 17:39 Reactive Lymphs % (Man) Cancelled 11/29/23 17:39 Monocytes % (Manual) Cancelled 11/29/23 17:39 Eosinophils % (Manual) Cancelled 11/29/23 17:39 Basophils % (Manual) Cancelled 11/29/23 17:39 Metamyelocytes % (Man) Cancelled 11/29/23 17:39 Myelocytes % (Man) Cancelled 11/29/23 17:39 Promyelocytes % (Man) Cancelled 11/29/23 17:39 Blast Cells % (Manual) Cancelled 11/29/23 17:39 Plasma Cell % (Manual) Cancelled 11/29/23 17:39 Other Cells % Cancelled 11/29/23 17:39 Nucleated RBC % Cancelled 11/29/23 17:39 Neutrophils # (Manual) Cancelled 11/29/23 17:39 Band Neutrophils # Cancelled 11/29/23 17:39 Total Absolute Neuts Cancelled 11/29/23 17:39 Lymphocytes # (Manual) Cancelled 11/29/23 17:39 Prolymphocyte # Cancelled 11/29/23 17:39 Reactive Lymphs # Cancelled 11/29/23 17:39 Total Abs Lymphocytes Cancelled 11/29/23 17:39 Monocytes # (Manual) Cancelled 11/29/23 17:39 Eosinophils # (Manual) Cancelled 11/29/23 17:39 Basophils # (Manual) Cancelled 11/29/23 17:39 Metamyelocytes # (Man) Cancelled 11/29/23 17:39 Myelocytes # (Manual) Cancelled 11/29/23 17:39 Promyelocytes # (Man) Cancelled 11/29/23 17:39 Blast Cells # (Man) Cancelled 11/29/23 17:39 Plasma Cell # (Manual) Cancelled 11/29/23 17:39 Other Cells # Cancelled 11/29/23 17:39 Nucleated RBCs # (Man) Cancelled 11/29/23 17:39 Hypersegmented Neuts Cancelled 11/29/23 17:39 Hyposegmented Neuts Cancelled 11/29/23 17:39 Hypogranular Neuts Cancelled 11/29/23 17:39 Large Granular Lymphs Cancelled 11/29/23 17:39 # Lrg Granular Lymphs Cancelled 11/29/23 17:39 Hairy Cells Cancelled 11/29/23 17:39 Smudge Cells Cancelled 11/29/23 17:39 Toxic Granulation Cancelled 11/29/23 17:39 Toxic Vacuolation Cancelled 11/29/23 17:39 Dohle Bodies Cancelled 11/29/23 17:39 Lynne Rods Cancelled 11/29/23 17:39 Platelet Estimate Cancelled 11/29/23 17:39 Hypogranular Platelets Cancelled 11/29/23 17:39 Giant Platelets Cancelled 11/29/23 17:39 Platelet Satelliting Cancelled 11/29/23 17:39 RBC Morphology Cancelled 11/29/23 17:39 Polychromasia Cancelled 11/29/23 17:39 Hypochromasia Cancelled 11/29/23 17:39 Poikilocytosis Cancelled 11/29/23 17:39 Basophilic Stippling Cancelled 11/29/23 17:39 Anisocytosis Cancelled 11/29/23 17:39 Microcytosis Cancelled 11/29/23 17:39 Macrocytosis Cancelled 11/29/23 17:39 Spherocytes Cancelled 11/29/23 17:39 Pappenheimer Bodies Cancelled 11/29/23 17:39 Sickle Cells Cancelled 11/29/23 17:39 Target Cells Cancelled 11/29/23 17:39 Tear Drop Cells Cancelled 11/29/23 17:39 Ovalocytes Cancelled 11/29/23 17:39 Stomatocytes Cancelled 11/29/23 17:39 Sullivan-Flintstone Bodies Cancelled 11/29/23 17:39 Echinocytes Cancelled 11/29/23 17:39 Acanthocytes (Spur) Cancelled 11/29/23 17:39 Rouleaux Cancelled 11/29/23 17:39 RBC Agglutinates Cancelled 11/29/23 17:39 Schistocytes Cancelled 11/29/23 17:39 Sezary Cell Cancelled 11/29/23 17:39 POC Sodium 142 mmol/L (135-144) 11/29/23 17:44 Sodium 142 mmol/L (136-145) 11/29/23 17:39 POC Potassium 4.1 mmol/L (3.3-5.0) 11/29/23 17:44 Potassium 3.8 mmol/L (3.5-5.1) 11/29/23 18:22 POC Chloride 103 mmol/L (101-112) 11/29/23 17:44 Chloride 105 mmol/L (98-107) 11/29/23 17:39 Carbon Dioxide 31 mmol/L (21-32) 11/29/23 17:39 POC Total CO2 30 mmol/L (24-31) 11/29/23 17:44 Anion Gap 6 (3-11) 11/29/23 17:39 POC Anion Gap 13.0 mmol/L (16-25) L 11/29/23 17:44 POC BUN 16 mg/dl (7-18) 11/29/23 17:44 BUN 15 mg/dl (6-23) 11/29/23 17:39 Creatinine 0.60 mg/dl (0.6-1.2) 11/29/23 17:39 POC Creatinine 0.6 mg/dl (0.6-1.3) 11/29/23 17:44 Est Cr Clr Drug Dosing 88.6 ml/min 11/29/23 17:39 Est GFR ( Amer) 114.0 ml/min 11/29/23 17:39 Est GFR (Non-Af Amer) 98.4 ml/min 11/29/23 17:39 BUN/Creatinine Ratio 25.0 (10-20) H 11/29/23 17:39 Glucose 197 mg/dl (70-99(Fasting)) H 11/29/23 17:39 POC Glucose (other) 202 mg/dl (70-99) H 11/29/23 17:44 Calcium 9.7 mg/dl (8.6-10.3) 11/29/23 17:39 POC Ioniz Calcium Justin 1.19 mmol/l (1.12-1.32) 11/29/23 17:44 Total Bilirubin 0.3 mg/dl (0.2-1.0) 11/29/23 18:22 Direct Bilirubin 0.1 mg/dl (0-0.2) 11/29/23 18:22 AST 20 U/L (13-39) 11/29/23 18:22 ALT 26 U/L (7-52) 11/29/23 18:22 Alkaline Phosphatase 146 U/L (34-104) H 11/29/23 18:22 Total Protein 6.7 gm/dl (6.0-8.3) 11/29/23 18:22 Albumin 4.0 gm/dl (3.4-5.0) 11/29/23 18:22 Blood Parasites ID Cancelled 11/29/23 17:[address] 11/29/23 17:37 CT SCAN OF THE CERVICAL SPINE CLINICAL HISTORY: Fall. COMPARISON STUDY: Cervical spine CT dated 06/07/2023. TECHNIQUE: CT scan of the cervical spine is performed from the skull base to the upper thoracic spine. Images are reviewed in the axial, sagittal, and coronal planes. IV contrast was not administered for this examination. A dose lowering technique was utilized adhering to the principles of ALARA. CT DOSE: 1334.18 mGy.cm FINDINGS: Skeletal structures: The skeletal structures are osteopenia. There is no evidence of fracture or subluxation involving the cervical spine. Vertebral body height and alignment are maintained. Anterior osteophytes are seen throughout. The odontoid process and lateral masses are intact. The atlantoaxial articulation is preserved noting productive degenerative change. The spinous processes appear intact. Intervertebral discs: The disc spaces are maintained. Central canal: A posterior disc osteophyte complex at C6-C7 likely contributes to acquired compromise of the central canal. Soft tissues: The prevertebral and paraspinous soft tissues are within normal limits. Calvarium: The visualized calvarium at the skull base appears intact. Brain parenchyma: Partially visualized brain parenchyma at the skull base is within normal limits. Sinuses and mastoids: The visualized paranasal sinuses are clear. The mastoid air cells are well pneumatized. Lung apices: Clear as visualized. IMPRESSION: There is no evidence of cervical spine fracture or subluxation. ACT 112: Negative or not required by law. Electronically signed by: Carlos Savage M.D. 11/29/2023 6:[address] 11/29/23 17:37 CT SCAN OF THE FACIAL BONES WITHOUT IV CONTRAST CLINICAL HISTORY: Fall. Facial injury. COMPARISON STUDY: No priors. TECHNIQUE: High-resolution CT scan of the facial bones is performed. Images are reviewed in the axial, sagittal, and coronal planes. IV contrast was not administered for this examination. A dose lowering technique was utilized adhering to the principles of ALARA. FINDINGS: The skeletal structures are osteopenic. There is no evidence of facial bone fracture. The bony orbits are intact and the orbital contents are within normal limits. The zygomatic arches, nasal bones, and pterygoid plates are preserved. The maxilla and mandible are intact. There are no layering blood products within the paranasal sinuses. The sinuses and mastoids are clear. The visualized calvarium and upper cervical spine are maintained. Partially imaged brain parenchyma is within normal limits. There is mild right periorbital soft tissue contusion. IMPRESSION: There is no evidence of facial bone fracture. ACT 112: Negative or not required by law. Electronically signed by: Carlos Savage M.D. 11/29/2023 6:[address] 11/29/23 17:37 CT SCAN OF THE BRAIN WITHOUT IV CONTRAST CLINICAL HISTORY: Fall. Head injury. COMPARISON STUDY: CT of the brain dated 09/22/2023. TECHNIQUE: Unenhanced axial CT scan of the brain is performed from the vertex to the skull base. A dose lowering technique was utilized adhering to the principles of ALARA. FINDINGS: Brain parenchyma: There is age-related involutional change noting minimal microangiopathic disease. There is no hemorrhage, mass effect, or evidence of acute territorial ischemia by CT criteria. Fernandez-white matter differentiation is preserved. No extra-axial fluid collection is seen. Ventricles, sulci, cisterns: Ventriculomegaly is similar to previous. Intracranial vasculature: There is atherosclerotic calcification of the cavernous carotid arteries. Calvarium: The skeletal structures are osteopenic. There is no depressed calvarial fracture. Sinuses and mastoids: The visualized paranasal sinuses are clear. The mastoid air cells are well pneumatized. Orbits: The bony orbits are grossly intact. There is right periorbital soft tissue contusion. IMPRESSION: There is no hemorrhage, mass effect, or evidence of acute territorial ischemia by CT criteria. ACT 112: Negative or not required by law. Electronically signed by: Carlos Savage M.D. 11/29/2023 6:10 PM Diagnostic Findings EKG as per my interpretation :Rate 75, NSR, LAD, LAFB, no ischemia (1) Altered mental status Altered mental status type: somnolence Qualified Code(s): R40.0 - Somnolence
[2023-11-29] MEDS ORDERED: PROMETHAZINE HCL 6.25 MG in SODIUM CHLORIDE 0.9% 50 ML IV PRN (21:20)
[2023-11-29] MEDS ORDERED: ACETAMINOPHEN 325 MG TAB PO PRN (21:20)
[2023-11-29] MEDS ORDERED: LORazepam 0.25 MG in SYRINGE 0.125 ML IV STA (21:25)
[2023-11-29] MEDS: LORazepam 1 MG/1 ML SYR ED Inj Use IV STA (21:56)
[2023-11-29] MEDS ORDERED: GLUCOSE 10 TAB/TUBE PO PRN (22:43)
[2023-11-29] MEDS ORDERED: GLUCOSE 40% GEL 15 GM TUBE PO PRN (22:43)
[2023-11-29] MEDS ORDERED: CARBOHYDRATES FOR HYPOGLYCEMIA PO PRN (22:43)
[2023-11-29] MEDS ORDERED: GLUCAGON FOR INJ 1 MG VIAL SQ PRN (22:43)
[2023-11-29] MEDS ORDERED: DEXTROSE 50% 50 ML SYRINGE IV PRN (22:43)
[2023-11-29] MEDS: INSULIN ASPART PER UNIT CHARGE SC SCH (22:58)
[2023-11-30] MEDS: MINI B IV STA (02:40)
[2023-11-30] MEDS: SODIUM CHLOR 0.9% IV STA (02:40)
[2023-11-30] MEDS: LEVETIRACETAM IV STA (02:40)
--- NOTE | 2023-11-30 06:49 | CT Scan Report ---
CT OF THE HEAD WITHOUT CONTRAST CLINICAL HISTORY: ff, head trauma, xarelto COMPARISON STUDY: Head CT November 29, 2023. MRI of the brain September 22, 2023. CT DOSE: 703.85 mGy.cm TECHNIQUE: Helical axial images of the head were obtained without IV contrast. Automated exposure con trol was utilized for the study. A dose lowering technique was utilized adhering to the principles o f ALARA. FINDINGS: No acute intracranial hemorrhage, midline shift or mass effect is present. Ventricular dila tation is unchanged. White matter hypodensities are unchanged. The basal cisterns are patent. No extr a-axial collections are present. There are no findings to suggest acute dural sinus thrombosis or acu te territorial infarct. No significant calvarial abnormalities are present. Visualized portions of th e sinuses and mastoid air cells are clear. IMPRESSION: No acute intracranial findings. No change in appearance of the brain. ACT 112: Negative or not required by law. Electronically signed by: Jose Srinivasan M.D. 11/30/2023 6:47 AM
[2023-11-30 07:03] LABS: Basophils # (auto) 0.01 K/uL (0.00-0.20); Basophils % (auto) 0.2 %; Hematocrit (blood only) 39.4 % (37.0-47.0); Hemoglobin 13.5 g/dl (12.0-16.0); Immature Granulocytes # (auto) 0.03 K/uL (0.01-0.20); Immature Granulocytes % (auto) 0.5 %; Lymphocytes # (auto) 1.23 K/uL (1.20-3.40); Lymphocytes % (auto) 21.5 %; Mean Corpuscular Hemoglobin 30.4 pg (25.0-34.0); Mean Corpuscular Hgb Conc 34.3 g/dL (32.0-36.0); Mean Corpuscular Volume 88.7 fL (80.0-100.0); Mean Platelet Volume 10.9 fL (9.4-12.4); Monocytes # (auto) 0.57 K/uL (0.11-0.59); Neutrophils # (auto) 3.88 K/uL (1.40-6.50); Neutrophils % (auto) 67.8 %; Platelet Count 126 K/uL (130-400); RDW Coefficient of Variation 13.6 % (11.5-14.5); RDW Standard Deviation 44.1 fL (36.4-46.3); Red Blood Count 4.44 M/uL (4.20-5.40); White Blood Count 5.72 K/ul (4.8-10.8)
[2023-11-30 07:20] LABS: BUN Creatinine Ratio 20.8 (10-20); Calcium 8.9 mg/dl (8.6-10.3); Creatinine Clr Calc Pharmacy 110.8 ml/min; Est GFR (African American) 122.7 ml/min; Est GFR (Non-African American) 105.9 ml/min; Potassium 3.7 mmol/L (3.5-5.1)
[2023-11-30] MEDS: AMMONIUM LACTATE 12% LOTION 225 GM BTL EXT SCH (07:50)
[2023-11-30] MEDS: valACYclovir HCL 500 MG TABLET PO SCH (07:51)
[2023-11-30] MEDS: POLYETHYLENE (MIRALAX) 17 GM PACK PO SCH (07:52)
[2023-11-30] MEDS: levETIRAcetam 250 MG TAB PO SCH (07:53)
[2023-11-30] MEDS: DOCUSATE SODIUM/SENNA 50/8.6MG TAB PO SCH (07:53)
[2023-11-30] MEDS: VITAMIN B COMPLEX TAB PO SCH (07:53)
--- NOTE | 2023-11-30 08:29 | Hospitalist Progress Note ---
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 Fall Pt presenting with fall from a chair at [facility] facility today. Subsequent trauma resulting in laceration right brow. No LOC. on xarelto Patient more sluggish than usual as per staff. Head CT on 11/28 and in followup on 11/29 with no acute changes UA suggestive of infection, urine Cx pending Likely in setting of acute infection Holding xarelto, resumed as head CT x 2 unremarkable PT/OT ordered UTI UA suggestive of infection, urine Cx pending On empiric Rocephin Follow culture and adjust as needed Hx of seizures Pt has been having Bilateral repetitive eye blinking ? Breakthrough seizures History of seizure disorder Ativan trial Follow Dilantin level (currently a send out test at [facility]), hold Dilantin until results available Continue Keppra EEG pending Neurology consulted Re: Repetitive eye blinking. (Patient known to [facility] Neurology recommended/stated the following: -63 yo female with resolved acute mental status change in setting of UTI, recent hospitalization and med changes. Pt did also have high level of dilantin on 11/25/2023 (33.2) and waiting on repeat level. It could have contribution but at this point pt now back to baseline. It is more likely her UTI major contributing factor for her symptoms. Recommendations: -agree with hold dilantin until level returns, i do recommend lowering her dilantin dose to 100mg po bid for the future. -continue keppra -tx for UTI -avoid dehydration -otherwise not much to add at this point given pt back to baselind and repeat CT headx2 negative. 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 SCDs while Xarelto on hold Dispo: PT/OT ordered for further recs. Pt from [facility] at [facility] Admission and Anticipated Discharge Date Admission Date: November 29, 2023 Subjective pt was seen with staff member Dena from [facility] at bedside. States that they are very concerned about her care at [facility]- notes multiple falls and concern that her dilantin and keppra doses are being increased to keep her "snowed" Received notification from that Jose [facility] asking for a [facility] Tried to call Jose Carlos multiple times durin gthe day, did not pickle processor. pt verbal with occasional "ok" when asked a question. Otherwise just stares in response Review of Systems Review of Systems: All systems reviewed & are unremarkable except as noted in Subjective Physical Exam Physical Exam: General: Alert. No acute distress Skin: bruises on right eyelid Psych: mood and affect could not be determined Neuro: Nonverbal for the most part HEENT: bruise on right eyelid, blinks CV: RRR Resp: Breath sounds clear bilaterally, no increased effort of breathing. Abdomen: Soft, nontender Extremities: R>L lower extremity bigger Results & Data Results & Data Vital Signs (Past 12 Hours) Vital Signs Temp Pulse Pulse Resp BP BP BP 11/30/23 07:39 36.8 C 72 20 129/80 11/30/23 02:36 36.5 C 64 18 132/78 11/29/23 23:09 36.2 C L 69 18 158/77 H 11/29/23 23:00 11/29/23 22:41 80 11/29/23 22:00 70 14 11/29/23 22:00 114/68 11/29/23 21:45 73 12 11/29/23 21:30 70 11/29/23 21:30 129/72 11/29/23 21:24 75 12 11/29/23 21:12 75 16 11/29/23 21:09 81 19 11/29/23 20:54 77 17 11/29/23 20:33 72 13 11/29/23 20:31 128/74 Pulse Ox O2 Del Method 11/30/23 07:39 99 Room Air 11/30/23 02:36 97 Room Air 11/29/23 23:09 99 Room Air 11/29/23 23:00 Room Air 11/29/23 22:41 11/29/23 22:00 95 Room Air 11/29/23 22:00 11/29/23 21:45 11/29/23 21:30 11/29/23 21:30 11/29/23 21:24 11/29/23 21:12 11/29/23 21:09 11/29/23 20:54 11/29/23 20:33 11/29/23 20:31 Diagnostic Findings Cervical Spine CT 11/29/23 17:37 CT SCAN OF THE CERVICAL SPINE CLINICAL HISTORY: Fall. COMPARISON STUDY: Cervical spine CT dated 06/07/2023. TECHNIQUE: CT scan of the cervical spine is performed from the skull base to the upper thoracic spine. Images are reviewed in the axial, sagittal, and coronal planes. IV contrast was not administered for this examination. A dose lowering technique was utilized adhering to the principles of ALARA. CT DOSE: 1334.18 mGy.cm FINDINGS: Skeletal structures: The skeletal structures are osteopenia. There is no evidence of fracture or subluxation involving the cervical spine. Vertebral body height and alignment are maintained. Anterior osteophytes are seen throughout. The odontoid process and lateral masses are intact. The atlantoaxial articulation is preserved noting productive degenerative change. The spinous p rocesses appear intact. Intervertebral discs: The disc spaces are maintained. Central canal: A posterior disc osteophyte complex at C6-C7 likely contributes to acquired compromise of the central canal. Soft tissues: The prevertebral and paraspinous soft tissues are within normal limits. Calvarium: The visualized calvarium at the skull base appears intact. Brain parenchyma: Partially visualized brain parenchyma at the skull base is within normal limits. Sinuses and mastoids: The visualized paranasal sinuses are clear. The mastoid air cells are well pneumatized. Lung apices: Clear as visualized. IMPRESSION: There is no evidence of cervical spine fracture or subluxation. ACT 112: Negative or not required by law. Electronically signed by: Carlos Savage M.D. 11/29/2023 6:[address] 11/29/23 17:37 CT SCAN OF THE FACIAL BONES WITHOUT IV CONTRAST CLINICAL HISTORY: Fall. Facial injury. COMPARISON STUDY: No priors. TECHNIQUE: High-resolution CT scan of the facial bones is performed. Images are reviewed in the axial, sagittal, and coronal planes. IV contrast was not administered for this examination. A dose lowering technique was utilized adhering to the principles of ALARA. FINDINGS: The skeletal structures are osteopenic. There is no evidence of facial bone fracture. The bony orbits are intact and the orbital contents are within normal limits. The zygomatic arches, nasal bones, and pterygoid plates are preserved. The maxilla and mandible are intact. There are no layering blood products within the paranasal sinuses. The sinuses and mastoids are clear. The visualized calvarium and upper cervical spine are maintained. Partially imaged brain parenchyma is within normal limits. There is mild right periorbital soft tissue contusion. IMPRESSION: There is no evidence of facial bone fracture. ACT 112: Negative or not required by law. Electronically signed by: Carlos Savage M.D. 11/29/2023 6:[address] 11/29/23 17:37 CT SCAN OF THE BRAIN WITHOUT IV CONTRAST CLINICAL HISTORY: Fall. Head injury. COMPARISON STUDY: CT of the brain dated 09/22/2023. TECHNIQUE: Unenhanced axial CT scan of the brain is performed from the vertex to the skull base. A dose lowering technique was utilized adhering to the principles of ALARA. FINDINGS: Brain parenchyma: There is age-related involutional change noting minimal microangiopathic disease. There is no hemorrhage, mass effect, or evidence of acute territorial ischemia by CT criteria. Fernandez-white matter differentiation is preserved. No extra-axial fluid collection is seen. Ventricles, sulci, cisterns: Ventriculomegaly is similar to previous. Intracranial vasculature: There is atherosclerotic calcification of the cavernous carotid arteries. Calvarium: The skeletal structures are osteopenic. There is no depressed calvarial fracture. Sinuses and mastoids: The visualized paranasal sinuses are clear. The mastoid air cells are well pneumatized. Orbits: The bony orbits are grossly intact. There is right periorbital soft tissue contusion. IMPRESSION: There is no hemorrhage, mass effect, or evidence of acute territorial ischemia by CT criteria. ACT 112: Negative or not required by law. Electronically signed by: Carlos Savage M.D. 11/29/2023 6:[address] 11/30/23 05:30 CT OF THE HEAD WITHOUT CONTRAST CLINICAL HISTORY: ff, head trauma, xarelto COMPARISON STUDY: Head CT November 29, 2023. MRI of the brain September 22, 2023. CT DOSE: 703.85 mGy.cm TECHNIQUE: Helical axial images of the head were obtained without IV contrast. Automated exposure control was utilized for the study. A dose lowering technique was utilized adhering to the principles of ALARA. FINDINGS: No acute intracranial hemorrhage, midline shift or mass effect is present. Ventricular dilatation is unchanged. White matter hypodensities are unchanged. The basal cisterns are patent. No extra-axial collections are present. There are no findings to suggest acute dural sinus thrombosis or acute territorial infarct. No significant calvarial abnormalities are present. Visualized portions of the sinuses and mastoid air cells are clear. IMPRESSION: No acute intracranial findings. No change in appearance of the brain. ACT 112: Negative or not required by law. Electronically signed by: Jose Srinivasan M.D. 11/30/2023 6:47 AM (1) Altered mental status Altered mental status type: somnolence Qualified Code(s): R40.0 - Somnolence
--- NOTE | 2023-11-30 08:35 | Neurology Consultation ---
Date of Consultation November 30, 2023 Assessment & Plan (1) Altered mental status: History of Present Illness Attending Physician: Penelope Rogers MD History of Present Illness pt with change in mental status in setting of baseline cognitive disability, schizophrenia and seizure hx. pt this morning alert and eating breakfast and having good interaction. CT head x2 negative. pt does appears to have UTI on UA. chart reviewed. ED admission note: Patient is a 63-year-old female with a past medical history ambulatory dysfunction with a fractured tibia plateau, weakness, gastric distention, GERD, HSV, encephalopathy, nonverbal who presents to the ER as she was sitting in a chair. She fell out of bed and hit her head on the table. There was no loss consciousness. This occurred around 12:00. She does take Xarelto. Per report from half-way she fell around 130 out of the wheelchair. Family wanted her to be seen. History is limited as patient is nonverbal. Web Assistant eventually presented at bedside and notes that patient for the past 10 days has been nonverbal has not been acting right has been altered. She notes that they did increase her Dilantin and Keppra levels at about that time. Allergies Allergy/AdvReac Type Severity Reaction Status Date / Time divalproex sodium Allergy Unknown Unknown Verified 10/14/23 16:49 [From Depakote] salicylates Allergy Unknown Unknown Verified 10/14/23 16:49 valproic acid Allergy Unknown Unknown Verified 10/14/23 16:49 aspirin AdvReac Severe STOMACH Verified 10/14/23 16:49 ULCER BLEEDING Home Medications Medication Instructions Recorded Confirmed Type atorvastatin 40 mg tablet 40 mg PO 07/17/18 11/30/23 History glimepiride 2 mg tablet 4 mg PO [facility] 07/17/18 11/30/23 History multivit-iron 18 mg-folic acid 400 1 tab PO QA 07/17/18 11/30/23 History mcg-calcium 500 mg-minerals tablet (Women's One Daily) vitamin B complex 1 tab PO QAM 08/25/18 11/30/23 History fluticasone propionate 50 2 sprays intranasal 02/15/19 11/30/23 History mcg/actuation nasal spray,suspension ammonium lactate 12 % topical cream 1 applic topical [facility] 05/21/19 11/30/23 History triamcinolone acetonide 0.1 % 1 applic topical BID PRN Rash 07/10/21 11/30/23 History topical cream valacyclovir 500 mg tablet 500 mg PO DAILY 02/18/22 11/30/23 History glimepiride 1 mg tablet 1 mg PO DAILY PRN BSG >300. 10/14/22 11/30/23 History polyethylene glycol 3350 17 gram 17 g PO BID 10/19/22 11/30/23 History oral powder packet (Miralax) calcium citrate 315 mg-vitamin D3 2 tab PO QAM ##0 02/11/23 11/30/23 History 5 mcg (200 unit) tablet (Calcium Citrate + D) albuterol sulfate 90 mcg/actuation 2 puff inhalation QIDR PRN 03/03/23 11/30/23 Rx aerosol inhaler (Ventolin HFA) shortness of breath or wheezing #6.7 grams dextromethorphan-guaifenesin 5 10 ml PO Q6H PRN cough #118 mL 03/03/23 11/30/23 Rx mg-100 mg/5 mL oral liquid (Robitussin Cough-Chest Congestion DM) acetaminophen 500 mg tablet 1,000 mg PO Q6 PRN Pain 06/07/23 11/30/23 History (Tylenol Extra Strength) dextromethorphan-guaifenesin 30 1 - 2 tab PO Q12H PRN Nasal 06/07/23 11/30/23 History mg-600 mg tablet extended Congestion [id number] hr (Mucinex DM) diphenhydramine HCl 25 mg tablet 25 mg PO .Q4-6 PRN Allergy Symptoms 06/07/23 11/30/23 History (Benadryl Allergy) famotidine 40 mg tablet 40 mg PO HS 06/07/23 11/30/23 History linagliptin 5 mg tablet (Tradjenta) 5 mg PO DAILY 08/15/23 11/30/23 History bisacodyl 10 mg rectal suppository 10 mg [place] DAILY PRN constipation 08/23/23 11/30/23 Rx #30 ea levetiracetam 250 mg tablet 250 mg PO BID 90 days #180 tabs 08/30/23 11/30/23 Rx (Keppra) phenytoin sodium extended 100 mg 200 mg (2 x 100 mg) PO BID 90 days 08/30/23 11/30/23 Rx capsule (Dilantin Extended) #360 caps sennosides 8.6 mg-docusate sodium 1 tab PO BID #60 tabs 09/21/23 11/30/23 Rx 50 mg tablet (Senokot-S) clozapine 200 mg tablet 200 mg PO HS 10/14/23 11/30/23 History rivaroxaban 10 mg tablet (Xarelto) 10 mg PO QAM 10/14/23 11/30/23 History Patient History Medical History (Updated 11/29/23 @ 19:02 by Daniel Alvares DO) Weakness Heart murmur Onychomycosis Surgical History History of colonoscopy Family History Mother Diabetes Other Seizures Social History Smoking Status: Never smoker Second Hand Exposure: No; Do You Dip or Chew Tobacco: No; Hx Alcohol Use: No Hx Substance Use: No Preferred Language: Nepali Communication Ability: Impaired Communication Ability Comment: Intellectual Disability Visual Impairment: No Limitations Hearing Ability: Normal Side Seam Machine Operator Required: No Beliefs That Will Affect Care: None marital status: Single Current Living Situation: Other Current Living Situation Comment: [facility] current occupational status: disabled Other Information That Helps Us Care for You: No Feels Safe at Home: Yes Safety Concerns: Feels Safe At This Time Assistive Devices: Walker and Wheelchair Exam (Neuro) Physical Exam: HEENT: normocephalic grossly Neuro: Mental: Alert, able to tell me her name. she knew year 2023. limited verbal expression. grossly fluent speech with some dysarthria, normal simple comprehension, no apraxia, no neglect CN: PERRL, Full EOM, symmetric face, midline T/U/P, grossly full ROM neck Motor: No abnormal movements, moving all limbs well grossly b/l Sens: intact to touch b/l grossly Coord: intact with some dysmetria with left hand. DTR: 1 + sym b/l Impression: 63 yo female with resolved acute mental status change in setting of UTI, recent hospitalization and med changes. Pt did also have high level of di lantin on 11/25/2023 (33.2) and waiting on repeat level. It could have contribution but at this point pt now back to baseline. It is more likely her UTI major contributing factor for her symptoms. Recommendations: agree with hold dilantin until level returns, i do recommend lowering her dilantin dose to 100mg po bid for the future. continue keppra tx for UTI avoid dehydration otherwise not much to add at this point given pt back to baselind and repeat CT headx2 negative. call again if new question. Chart reviewed I have spent more than 50% educating patient about potential diagnosis and neurological evaluation and coordinating care with patient's treatment team. Total time spent (including chart review and coordination of care): 60 min (this includes chart review). Results & Data Vital Signs (Past 12 Hours) Vital Signs Temp Pulse Pulse Resp BP BP BP 11/30/23 07:39 36.8 C 72 20 129/80 11/30/23 02:36 36.5 C 64 18 132/78 11/29/23 23:09 36.2 C L 69 18 158/77 H 11/29/23 23:00 11/29/23 22:41 80 11/29/23 22:00 70 14 11/29/23 22:00 114/68 11/29/23 21:45 73 12 11/29/23 21:30 70 11/29/23 21:30 129/72 11/29/23 21:24 75 12 11/29/23 21:12 75 16 11/29/23 21:09 81 19 11/29/23 20:54 77 17 Pulse Ox O2 Del Method 11/30/23 07:39 99 Room Air 11/30/23 02:36 97 Room Air 11/29/23 23:09 99 Room Air 11/29/23 23:00 Room Air 11/29/23 22:41 11/29/23 22:00 95 Room Air 11/29/23 22:00 11/29/23 21:45 11/29/23 21:30 11/29/23 21:30 11/29/23 21:24 11/29/23 21:12 11/29/23 21:09 11/29/23 20:54 PG Care Time/CCT Total # of Minutes Spent Total Time Spent with Patient: Total time spent is greater than 50% in coordination of care (as documented) at patient's floor/unit and/or counseling patient: Coding Level of Care Code 42122 IN/OBS CONSULT LVL 4,60M Diagnoses Altered mental status R40.0 Altered mental status type: somnolence (1) Altered mental status Altered mental status type: somnolence Qualified Code(s): R40.0 - Somnolence
[2023-11-30] MEDS ORDERED: RIVAROXABAN 10 MG TABLET PO SCH (09:00)
--- NOTE | 2023-11-30 11:03 | Electrocardiogram Report ---
Test Reason : Blood Pressure : / mmHG Vent. Rate : 073 BPM Atrial Rate : 073 BPM P-R Int : 138 ms QRS Dur : 086 ms QT Int : 398 ms P-R-T Axes : 043 -25 020 degrees QTc Int : 438 ms Normal sinus rhythm Normal ECG When compared with ECG of 14-OCT-2023 16:25, No significant change was found Confirmed by Nayan Galarza ([id number]) on 11/30/2023 11:03:10 AM Referred By: [facility] Confirmed By:Nayan Galarza
[2023-11-30] MEDS: cefTRIAXone SODIUM 2,000 MG/50 ML BAG IV SCH (13:05)
[2023-11-30] MEDS: RIVAROXABAN 10 MG TABLET PO SCH (18:21)
--- NOTE | 2023-11-30 19:59 | Communication Note ---
Date of Service: November 30, 2023 Made aware by lab abnormal send out Dilantin levels (normal levels 10-20 as per lab report) 11/29 AM 39.8 11/29 PM 27 Supratherapeutic Dilantin level Continue to hold Dilantin Recheck level in a.m.
[2023-11-30] MEDS: LANTUS PER UNIT CHARGE SQ SCH (20:57)
[2023-11-30] MEDS: ATORVASTATIN 40 MG TAB PO SCH (20:58)
[2023-11-30] MEDS: FAMOTIDINE 40 MG TABLET PO SCH (20:58)
[2023-11-30] MEDS: LACTATED RINGER'S 1,000 ML IV ONE (21:09)
--- NOTE | 2023-12-01 06:05 | Electroencephalogram ---
EEG Procedure Note Date of Service November 30, 2023 Start / End Times Start Time: 10:30 End Time: 10:[address] Gurmeet Hollins History A 63 year old female with repetitive eye blinking. EEG performed for evaluation of epileptiform activity. Home Medication List Medication Instructions Recorded Confirmed Type atorvastatin 40 mg tablet 40 mg PO HS 07/17/18 11/30/23 History glimepiride 2 mg tablet 4 mg PO QAM 07/17/18 11/30/23 History multivit-iron 18 mg-folic acid 400 1 tab PO QAM 07/17/18 11/30/23 History mcg-calcium 500 mg-minerals tablet (Women's One Daily) vitamin B complex 1 tab PO QAM 08/25/18 11/30/23 History fluticasone propionate 50 2 sprays intranasal HS 02/15/19 11/30/23 History mcg/actuation nasal spray,suspension ammonium lactate 12 % topical cream 1 applic topical QAM 05/21/19 11/30/23 History triamcinolone acetonide 0.1 % 1 applic topical BID PRN Rash 07/10/21 11/30/23 History topical cream valacyclovir 500 mg tablet 500 mg PO DAILY 02/18/22 11/30/23 History glimepiride 1 mg tablet 1 mg PO DAILY PRN BSG >300. 10/14/22 11/30/23 History polyethylene glycol 3350 17 gram 17 g PO BID 10/19/22 11/30/23 History oral powder packet (Miralax) calcium citrate 315 mg-vitamin D3 2 tab PO QAM ##0 02/11/23 11/30/23 History 5 mcg (200 unit) tablet (Calcium Citrate + D) albuterol sulfate 90 mcg/actuation 2 puff inhalation QIDR PRN 03/03/23 11/30/23 Rx aerosol inhaler (Ventolin HFA) shortness of breath or wheezing #6.7 grams dextromethorphan-guaifenesin 5 10 ml PO Q6H PRN cough #118 mL 03/03/23 11/30/23 Rx mg-100 mg/5 mL oral liquid (Robitussin Cough-Chest Congestion DM) acetaminophen 500 mg tablet 1,000 mg PO Q6 PRN Pain 06/07/23 11/30/23 History (Tylenol Extra Strength) dextromethorphan-guaifenesin 30 1 - 2 tab PO Q12H PRN Nasal 06/07/23 11/30/23 History mg-600 mg tablet extended Congestion [id number] hr (Mucinex DM) diphenhydramine HCl 25 mg tablet 25 mg PO .Q4-6 PRN Allergy Symptoms 06/07/23 11/30/23 History (Benadryl Allergy) famotidine 40 mg tablet 40 mg PO HS 06/07/23 11/30/23 History linagliptin 5 mg tablet (Tradjenta) 5 mg PO DAILY 08/15/23 11/30/23 History bisacodyl 10 mg rectal suppository 10 mg [place] DAILY PRN constipation 08/23/23 11/30/23 Rx #30 ea levetiracetam 250 mg tablet 250 mg PO BID 90 days #180 tabs 08/30/23 11/30/23 Rx (Keppra) phenytoin sodium extended 100 mg 200 mg (2 x 100 mg) PO BID 90 days 08/30/23 11/30/23 Rx capsule (Dilantin Extended) #360 caps sennosides 8.6 mg-docusate sodium 1 tab PO BID #60 tabs 09/21/23 11/30/23 Rx 50 mg tablet (Senokot-S) clozapine 200 mg tablet 200 mg PO HS 10/14/23 11/30/23 History rivaroxaban 10 mg tablet (Xarelto) 10 mg PO QAM 10/14/23 11/30/23 History Inpatient Medication List Atorvastatin Calcium (Atorvastatin 40 Mg Tab) 40 mg PO HS DELMI Stop: 12/30/23 20:59 Last Admin: 11/30/23 20:58 Dose: 40 mg Documented By: DEB Famotidine (Famotidine 40 Mg Tablet) 40 mg PO HS DELMI Stop: 12/30/23 20:59 Last Admin: 11/30/23 20:58 Dose: 40 mg Documented By: JAMINK Ceftriaxone Sodium (Rocephin) 2,000 mg in 50 mls @ 100 mls/hr IV Q24H DELMI Stop: 12/10/23 10:29 Last Infusion: 11/30/23 14:15 Dose: Infused Documented By: Admin: 11/30/23 13:05 Dose: 100 mls/hr Documented By: SALINAS Lactated Ringer's (Lr) 1,000 mls @ 75 mls/hr IV .[id number] ONE Stop: 12/01/23 09:30 Last Admin: 11/30/23 21:09 Dose: 75 mls/hr Documented By: DEB Insulin Aspart (Insulin Aspart Per Unit Charge) 0 units SC ACHS DELMI Stop: 12/29/23 22:42 Last Admin: 11/30/23 20:56 Dose: 5 units Documented By: DEB Co-signed By: TYRON Admin: 11/30/23 17:43 Dose: Not Given Documented By: Admin: 11/30/23 13:05 Dose: Not Given Documented By: Admin: 11/30/23 09:12 Dose: 3 units Documented By: SALINAS Co-signed By: ARGLEIA Admin: 11/29/23 22:58 Dose: Not Given Documented By: HAO Insulin Glargine (Lantus Per Unit Charge) 5 units SQ HS DELMI Stop: 12/30/23 20:59 Last Admin: 11/30/23 20:57 Dose: 5 units Documented By: DEB Co-signed By: TYRON Lactic Acid (Ammonium Lactate 12% Lotion 225 Gm Btl) 1 gm EXT QAM DELMI Stop: 12/30/23 08:59 Last Admin: 11/30/23 07:50 Dose: 1 gm Documented By: SALINAS Levetiracetam (Levetiracetam 250 Mg Tab) 250 mg PO BID DELMI Stop: 12/30/23 08:59 Last Admin: 11/30/23 20:58 Dose: 250 mg Documented By: Admin: 11/30/23 07:53 Dose: 250 mg Documented By: SALINAS Polyethylene Glycol (Polyethylene (Miralax) 17 Gm Pack) 17 gm PO BID DELMI Stop: 12/30/23 08:59 Last Admin: 11/30/23 20:57 Dose: 17 gm Documented By: Admin: 11/30/23 07:52 Dose: 17 gm Documented By: SALINAS Rivaroxaban (Rivaroxaban 10 Mg Tablet) 10 mg PO DAILY [facility] Stop: 12/30/23 17:14 Last Admin: 11/30/23 18:21 Dose: 10 mg Documented By: SALINAS Senna/Docusate Sodium (Docusate Sodium/Senna 50/8.6mg Tab) 1 tab PO BID DELMI Stop: 12/30/23 08:59 Last Admin: 11/30/23 20:58 Dose: 1 tab Documented By: Admin: 11/30/23 07:53 Dose: 1 tab Documented By: SALINAS Valacyclovir HCl (Valacyclovir Hcl 500 Mg Tablet) 500 mg PO DAILY DELMI Stop: 12/30/23 08:59 Last Admin: 11/30/23 07:51 Dose: 500 mg Documented By: SALINAS Vitamin B Complex (Vitamin B Complex Tab) 1 tab PO QAM DELMI Stop: 12/30/23 08:59 Last Admin: 11/30/23 07:53 Dose: 1 tab Documented By: SALINAS Discontinued Medications Lactated Ringer's (Lr) 1,000 mls @ 80 mls/hr IV .[id number] ONE Stop: 11/30/23 08:23 Last Infusion: 11/30/23 10:49 Dose: Infused Documented By: Admin: 11/29/23 20:53 Dose: 80 mls/hr Documented By: GLENN Levetiracetam 250 mg/ Sodium (Chloride) 102.5 mls @ 420 mls/hr IV NOW STA Stop: 11/30/23 02:24 Last Infusion: 11/30/23 02:55 Dose: Infused Documented By: Admin: 11/30/23 02:40 Dose: 420 mls/hr Documented By: HAO Lorazepam (Lorazepam 1 Mg/1 Ml Syr Ed Inj Use) 0.25 mg IV ONE STA Stop: 11/29/23 21:30 Last Admin: 11/29/23 21:56 Dose: 0.25 mg Documented By: ANA MARÍA Description This is a 21 electrode EEG with a single channel dedicated to limited EKG. The electrodes were placed in accordance with the International 10-20 system. REPORT: At the onset of the EEG the patient is awake. The background appears symetric with loss of the normal anterior to posterior gradient. Instead the background consist of generalized delta activity with some intermixed myogenic artifact or faster frequencies that are likely artifactual. Photic does not i nduce any abnormalities. Interpretation IMPRESSION: This is an abnormal routine EEG in a patient with altered mentation due to severe generalized background slowing suggestive of a severe enecephaloapthy. No epilpetiform discharges or electrographic seizures are seen.
[2023-12-01 07:05] LABS: Basophils # (auto) 0.01 K/uL (0.00-0.20); Basophils % (auto) 0.2 %; Hematocrit (blood only) 39.2 % (37.0-47.0); Hemoglobin 13.5 g/dl (12.0-16.0); Immature Granulocytes # (auto) 0.01 K/uL (0.01-0.20); Immature Granulocytes % (auto) 0.2 %; Lymphocytes # (auto) 1.22 K/uL (1.20-3.40); Lymphocytes % (auto) 20.4 %; Mean Corpuscular Hemoglobin 30.2 pg (25.0-34.0); Mean Corpuscular Hgb Conc 34.4 g/dL (32.0-36.0); Mean Corpuscular Volume 87.7 fL (80.0-100.0); Monocytes # (auto) 0.69 K/uL (0.11-0.59); Monocytes % (auto) 11.5 %; Neutrophils # (auto) 4.06 K/uL (1.40-6.50); Neutrophils % (auto) 67.7 %; Platelet Count 131 K/uL (130-400); RDW Coefficient of Variation 13.4 % (11.5-14.5); Red Blood Count 4.47 M/uL (4.20-5.40); White Blood Count 5.99 K/ul (4.8-10.8)
[2023-12-01 07:22] LABS: Albumin Globulin Ratio 1.4 (0.9-2); Albumin Level 3.6 gm/dl (3.4-5.0); BUN Creatinine Ratio 23.4 (10-20); Bilirubin,Total 0.4 mg/dl (0.2-1.0); Calcium 8.8 mg/dl (8.6-10.3); Creatinine Clr Calc Pharmacy 113.1 ml/min; Est GFR (African American) 123.6 ml/min; Est GFR (Non-African American) 106.6 ml/min; Globulin 2.6 gm/dl (2.5-4.0); Magnesium 1.9 mg/dl (1.7-2.4); Phosphorus 3.9 mg/dl (2.5-4.9); Potassium 3.8 mmol/L (3.5-5.1); Total Protein 6.2 gm/dl (6.0-8.3)
--- NOTE | 2023-12-01 14:54 | Hospitalist Progress Note ---
Date of Service December 01, 2023 Assessment & Plan (1) Altered mental status: Plan Ms. 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 #Mechanical Fall Head CT on 11/28 and in followup on 11/29 with no acute changes Pt presenting with fall from a chair at [facility] facility today. Subsequent trauma resulting in laceration right brow. No LOC. on xarelto: briefly held, however, CTx2 neg--continued Patient more sluggish than usual as per staff. UA suggestive of infection, urine Cx: multiple celina #Acute UTI UA suggestive of infection, urine Cx: multiple celina On empiric Rocephin, will continue 5 day course #Supratherapeutic Dilantin level #Seizure disorder Pt has been having Bilateral repetitive eye blinking ? Breakthrough seizures History of seizure disorder Ativan trial Follow Dilantin level (currently a send out test at [facility]) -Dilantin elevated: 39.8, 27.8 -Continue to hold -Will discuss resumption with Neurology Continue Keppra EEG pending Neurology consulted Re: Repetitive eye blinking. (Patient known to [facility] Neurology recommended/stated the following: -63 yo female with resolved acute mental status change in setting of UTI, recent hospitalization and med changes. Pt did also have high level of dilantin on 11/25/2023 (33.2) and waiting on repeat level. It could have contribution but at this point pt now back to baseline. It is more likely her UTI major contributing factor for her symptoms. Recommendations: -agree with hold dilantin until level returns... 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 SCDs while Xarelto on hold Dispo: PT/OT ordered for further recs. Pt from [facility] Admission and Anticipated Discharge Date Admission Date: November 29, 2023 Subjective NAEO Patient awake, seems at baseline: slow to respond verbally, but makes meaningful eye contact and responds to questions appropriately Observed nurse giving patient commands--patient responded appropriately with some hesitancy and slowness Physical Exam Constitutional: WD/WN, vitals as above Respiratory: normal respiratory effort, lungs clear to auscultation Cardiovascular: RRR, no murmur, no edema Gastrointestinal (Abdomen): normal bowel sounds, soft, nontender, no hepatosplenomegaly Results & Data Results & Data Vital Signs (Past 12 Hours) Vital Signs Temp Pulse Pulse Resp BP BP Pulse Ox 12/01/23 11:03 36.9 C 74 20 128/78 96 12/01/23 09:00 65 12/01/23 09:00 12/01/23 07:45 36.9 C 68 20 109/65 100 12/01/23 02:53 36.3 C L 74 18 133/72 100 O2 Del Method 12/01/23 11:03 Room Air 12/01/23 09:00 12/01/23 09:00 Room Air 12/01/23 07:45 Room Air 12/01/23 02:53 Room Air Laboratory Results Short CBC 12/01/23 Range/Units 05:50 WBC 5.99 (4.8-10.8) K/ul Hgb 13.5 (12.0-16.0) g/dl Hct 39.2 (37.0-47.0) % Plt Count 131 (130-400) K/uL BMP 12/01/23 05:50 Sodium 142 Potassium 3.8 Chloride 107 Carbon Dioxide 27 BUN 11 Creatinine 0.47 L Glucose 98 Calcium 8.8 Liver Function 12/01/23 Range/Units 05:50 Total Bilirubin 0.4 (0.2-1.0) mg/dl AST 18 (13-39) U/L ALT 21 (7-52) U/L Alkaline Phosphatase 151 H (34-104) U/L Albumin 3.6 (3.4-5.0) gm/dl Medications Administered Home Medications Medication Instructions Recorded Confirmed Last Taken atorvastatin 40 mg tablet 40 mg PO HS 07/17/18 11/30/23 10/13/23 glimepiride 2 mg tablet 4 mg PO QAM 07/17/18 11/30/23 10/14/23 multivit-iron 18 mg-folic acid 400 1 tab PO QAM 07/17/18 11/30/23 10/14/23 mcg-calcium 500 mg-minerals tablet (Women's One Daily) vitamin B complex 1 tab PO QAM 08/25/18 11/30/23 10/14/23 fluticasone propionate 50 2 sprays intranasal HS 02/15/19 11/30/23 10/13/23 mcg/actuation nasal spray,suspension ammonium lactate 12 % topical cream 1 applic topical QAM 05/21/19 11/30/23 10/14/23 triamcinolone acetonide 0.1 % 1 applic topical BID PRN Rash 07/10/21 11/30/23 10/30/21 topical cream valacyclovir 500 mg tablet 500 mg PO DAILY 02/18/22 11/30/23 10/14/23 glimepiride 1 mg tablet 1 mg PO DAILY PRN BSG >300. 10/14/22 11/30/23 Unknown polyethylene glycol 3350 17 gram 17 g PO BID 10/19/22 11/30/23 10/14/23 08:00 oral powder packet (Miralax) calcium citrate 315 mg-vitamin D3 2 tab PO QAM ##0 02/11/23 11/30/23 10/14/23 5 mcg (200 unit) tablet (Calcium Citrate + D) albuterol sulfate 90 mcg/actuation 2 puff inhalation QIDR PRN 03/03/23 11/30/23 Unknown aerosol inhaler (Ventolin HFA) shortness of breath or wheezing #6.7 grams dextromethorphan-guaifenesin 5 10 ml PO Q6H PRN cough #118 mL 03/03/23 11/30/23 Unknown mg-100 mg/5 mL oral liquid (Robitussin Cough-Chest Congestion DM) acetaminophen 500 mg tablet 1,000 mg PO Q6 PRN Pain 06/07/23 11/30/23 Unknown (Tylenol Extra Strength) dextromethorphan-guaifenesin 30 1 - 2 tab PO Q12H PRN Nasal 06/07/23 11/30/23 Unknown mg-600 mg tablet extended Congestion [id number] hr (Mucinex DM) diphenhydramine HCl 25 mg tablet 25 mg PO .Q4-6 PRN Allergy Symptoms 06/07/23 11/30/23 Unknown (Benadryl Allergy) famotidine 40 mg tablet 40 mg PO HS 06/07/23 11/30/23 10/13/23 linagliptin 5 mg tablet (Tradjenta) 5 mg PO DAILY 08/15/23 11/30/23 10/14/23 bisacodyl 10 mg rectal suppository 10 mg [place] DAILY PRN constipation 08/23/23 11/30/23 Unknown #30 ea levetiracetam 250 mg tablet 250 mg PO BID 90 days #180 tabs 08/30/23 11/30/23 10/14/23 08:00 (Keppra) phenytoin sodium extended 100 mg 200 mg (2 x 100 mg) PO BID 90 days 08/30/23 11/30/23 10/14/23 08:00 capsule (Dilantin Extended) #360 caps sennosides 8.6 mg-docusate sodium 1 tab PO BID #60 tabs 09/21/23 11/30/23 10/14/23 08:00 50 mg tablet (Senokot-S) clozapine 200 mg tablet 200 mg PO HS 10/14/23 11/30/23 10/13/23 rivaroxaban 10 mg tablet (Xarelto) 10 mg PO QAM 10/14/23 11/30/23 10/14/23 Active Medications Generic Name Dose Route Start Last Admin Trade Name Freq PRN Reason Stop Dose Admin Atorvastatin Calcium 40 mg 11/30/23 21:00 11/30/23 20:58 Atorvastatin 40 Mg Tab PO 12/30/23 20:59 40 mg HS EDLMI Administration Famotidine 40 mg 11/30/23 21:00 11/30/23 20:58 Famotidine 40 Mg Tablet PO 12/30/23 20:59 40 mg HS DELMI Administration Ceftriaxone Sodium 2,000 mg in 50 mls @ 100 mls/hr 11/30/23 10:30 12/01/23 10:16 Rocephin IV 12/10/23 10:29 Infused Q24H DELMI Infusion Insulin Aspart 0 units 11/29/23 22:43 12/01/23 13:33 Insulin Aspart Per Unit Charge SC 12/29/23 22:42 5 units ACHS DELMI Administration Insulin Glargine 5 units 11/30/23 21:00 11/30/23 20:57 Lantus Per Unit Charge SQ 12/30/23 20:59 5 units HS DELMI Administration Lactic Acid 1 gm 11/30/23 09:00 12/01/23 09:46 Ammonium Lactate 12% Lotion 225 Gm Btl EXT 12/30/23 08:59 1 gm QAM DELMI Administration Levetiracetam 250 mg 11/30/23 09:00 12/01/23 09:48 Levetiracetam 250 Mg Tab PO 12/30/23 08:59 250 mg BID DELMI Administration Polyethylene Glycol 17 gm 11/30/23 09:00 12/01/23 09:48 Polyethylene (Miralax) 17 Gm Pack PO 12/30/23 08:59 17 gm BID DELMI Administration Rivaroxaban 10 mg 11/30/23 17:15 12/01/23 09:47 Rivaroxaban 10 Mg Tablet PO 12/30/23 17:14 10 mg DAILY DELMI Administration Senna/Docusate Sodium 1 tab 11/30/23 09:00 12/01/23 09:48 Docusate Sodium/Senna 50/8.6mg Tab PO 12/30/23 08:59 1 tab BID DELMI Administration Valacyclovir HCl 500 mg 11/30/23 09:00 12/01/23 09:46 Valacyclovir Hcl 500 Mg Tablet PO 12/30/23 08:59 500 mg DAILY DELMI Administration Vitamin B Complex 1 tab 11/30/23 09:00 12/01/23 09:46 Vitamin B Complex Tab PO 12/30/23 08:59 1 tab QAM DELMI Administration (1) Altered mental status Altered mental status type: somnolence Qualified Code(s): R40.0 - Somnolence
[2023-12-02 06:30] LABS: Hematocrit (blood only) 40.1 % (37.0-47.0); Hemoglobin 13.8 g/dl (12.0-16.0); Mean Corpuscular Hemoglobin 30.1 pg (25.0-34.0); Mean Corpuscular Hgb Conc 34.4 g/dL (32.0-36.0); Mean Corpuscular Volume 87.6 fL (80.0-100.0); Platelet Count 139 K/uL (130-400); RDW Coefficient of Variation 13.6 % (11.5-14.5); Red Blood Count 4.58 M/uL (4.20-5.40); White Blood Count 8.07 K/ul (4.8-10.8)
[2023-12-02 06:40] LABS: BUN Creatinine Ratio 28.3 (10-20); Calcium 8.9 mg/dl (8.6-10.3); Creatinine Clr Calc Pharmacy 100.3 ml/min; Est GFR (African American) 118.8 ml/min; Est GFR (Non-African American) 102.5 ml/min; Magnesium 1.9 mg/dl (1.7-2.4); Phosphorus 4.3 mg/dl (2.5-4.9); Potassium 4.1 mmol/L (3.5-5.1)
--- NOTE | 2023-12-02 10:56 | Hospitalist Progress Note ---
Date of Service December 02, 2023 Assessment & Plan (1) Altered mental status: Plan Ms. 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 #Mechanical Fall Head CT on 11/28 and in followup on 11/29 with no acute changes Pt presenting with fall from a chair at [facility] facility Subsequent trauma resulting in laceration right brow. No LOC. on xarelto: briefly held, however, CTx2 neg--continued Patient more sluggish than usual as per staff. UA suggestive of infection, urine Cx: multiple celina #Acute UTI UA suggestive of infection, urine Cx: multiple celina On empiric Rocephin, will continue 5 day course to complete on 12/03 #Supratherapeutic Dilantin level #Seizure disorder Pt has been having Bilateral repetitive eye blinking ? Breakthrough seizures History of seizure disorder Ativan trial Follow Dilantin level (currently a send out test at [facility]) -Dilantin elevated: 39.8, 27.8 -Continue to hold -Discuss with Dr. Soni, Neurology, who states wait until back in therapeutic range prior to initiating lower dose, 100mg bid Continue Keppra EEG : encephalopathy but no epileptiform activity Neurology consulted Re: Repetitive eye blinking. (Patient known to [facility] Neurology recommended/stated the following: -63 yo female with resolved acute mental status change in setting of UTI, recent hospitalization and med changes. Pt did also have high level of dilantin on 11/25/2023 (33.2) and waiting on repeat level. It could have contribution but at this point pt now back to baseline. It is more likely her UTI major contributing factor for her symptoms. Recommendations: -agree with hold dilantin until level returns... 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 Xarelto Dispo: Awaiting dilantin level to return to normal so therapy can be resumed, she is otherwise medically stable and will be able to d/c back to [facility] A total of 45 min was spent coordinating, documenting, and providing care for this patient excluding time spent in the performance of separately billed services. This included personally viewing all current laboratories and imaging studies, medication reconciliation, outpatient chart review, and discussion with specialists. Admission and Anticipated Discharge Date Admission Date: November 29, 2023 Supervising Physician Co-Signing Physician Notes I have discussed the case with the collaborating advanced practitioner. I agree with the above PN. I have reviewed and confirmed the patients medical history and the patients diagnosis and treatment plan with Jennifer PEREZ and agree with the information documented. I spent a total of 15 minutes coordinating, documenting, and providing care for this patient excluding time spent in the performance of separately billed services. All of the aforementioned completed outside of collaborating with the assigned advanced practitioner for a full treatment plan. I have reviewed the advanced practitioner's documentation, and I agree with, and take responsibility for the plan of care Subjective Patient was seen and examined in room 285-1. Follow up elevated dilantin level and AMS. She is c/o of pain to L knee/leg. Otherwise she offers no acute complaints. She denies any f/c/s, chest pain, sob, n/v/d. She had BM yesterday and this was confirmed by nurse at bedside. Nurse at bedside offers no acute concerns. Review of Systems Review of Systems: All systems reviewed & are unremarkable except as noted in HPI & below Physical Exam Physical Exam: Gen: WD/WN, +intellectual disability, NAD, A&O x3 HEENT: Normocephalic, atraumatic, conjunctivae moist, sclerae anicteric, mucous membranes moist. Lung: Clear to Auscultation bilaterally, no wheezes/rales/rhonchi Heart: Regular rate, regular rhythm, no murmurs, rubs, or gallops Abdomen: Soft, NT, ND +BS x 4 Extremities: No edema Skin: Warm, no rash, negative turgor. Results & Data Results & Data Vital Signs (Past 12 Hours) Vital Signs Temp Pulse Pulse Resp BP BP Pulse Ox 07/18/24 07:25 65 12/02/23 07:16 36.3 C L 65 16 113/55 L 98 12/02/23 03:21 36.7 C 68 18 128/76 96 12/01/23 23:00 73 O2 Del Method 12/02/23 07:25 12/02/23 07:16 Room Air 12/02/23 03:21 Room Air 12/01/23 23:00 Laboratory Results I have independently reviewed and interpreted patient's labs, CBC, CMP, phos, mag dilantin level still pending. Medications Administered Current Inpatient Medications Acetaminophen (Acetaminophen 325 Mg Tab) 650 mg PO QID PRN PRN Reason: pain/fever Stop: 12/29/23 21:19 Atorvastatin Calcium (Atorvastatin 40 Mg Tab) 40 mg PO HS DELMI Stop: 12/30/23 20:59 Last Admin: 12/01/23 20:22 Dose: 40 mg Dextrose (Dextrose 50% 50 Ml Syringe) 25 - 50 ml IV UD PRN; Protocol PRN Reason: Hypoglycemia Protocol Stop: 12/29/23 22:42 Diclofenac Sodium (Diclofenac Sod 1% Gel 100 Gm Tube) 4 gm EXT QID DELMI; Protocol Stop: 01/01/24 12:59 Famotidine (Famotidine 40 Mg Tablet) 40 mg PO HS DELMI Stop: 12/30/23 20:59 Last Admin: 12/01/23 20:21 Dose: 40 mg Glucagon (Glucagon For Inj 1 Mg Vial) 1 mg SQ UD PRN; Protocol PRN Reason: Hypoglycemia Protocol Stop: 12/29/23 22:42 Glucose (Glucose 40% Gel 15 Gm Tube) 15 - 30 gm PO UD PRN; Protocol PRN Reason: Hypoglycemia Protocol Stop: 12/29/23 22:42 Glucose (Glucose 10 Tab/Tube) 4 - 8 tab PO UD PRN; Protocol PRN Reason: Hypoglycemia Treatment Stop: 12/29/23 22:42 Promethazine HCl 6.25 mg/ (Sodium Chloride) 50.25 mls @ 201 mls/hr IV Q6H PRN PRN Reason: Nausea And Vomiting Stop: 12/29/23 21:19 Ceftriaxone Sodium (Rocephin) 2,000 mg in 50 mls @ 100 mls/hr IV Q24H DELMI Stop: 12/10/23 10:29 Last Infusion: 12/02/23 10:03 Dose: Infused Insulin Aspart (Insulin Aspart Per Unit Charge) 0 units SC ACHS DELMI Stop: 12/29/23 22:42 Last Admin: 12/02/23 08:36 Dose: 3 units Insulin Glargine (Lantus Per Unit Charge) 5 units SQ HS DELMI Stop: 12/30/23 20:59 Last Admin: 12/01/23 21:36 Dose: 5 units Lactic Acid (Ammonium Lactate 12% Lotion 225 Gm Btl) 1 gm EXT QAM DELMI Stop: 12/30/23 08:59 Last Admin: 12/02/23 08:22 Dose: 1 gm Levetiracetam (Levetiracetam 250 Mg Tab) 250 mg PO BID DELMI Stop: 12/30/23 08:59 Last Admin: 12/02/23 08:21 Dose: 250 mg Miscellaneous (Carbohydrates For Hypoglycemia ) 15 - 30 gm PO UD PRN PRN Reason: Hypoglycemia Protocol Stop: 12/29/23 22:42 Polyethylene Glycol (Polyethylene (Miralax) 17 Gm Pack) 17 gm PO BID DELMI Stop: 12/30/23 08:59 Last Admin: 12/02/23 08:21 Dose: 17 gm Rivaroxaban (Rivaroxaban 10 Mg Tablet) 10 mg PO DAILY DELMI Stop: 12/30/23 17:14 Last Admin: 12/02/23 08:21 Dose: 10 mg Senna/Docusate Sodium (Docusate Sodium/Senna 50/8.6mg Tab) 1 tab PO BID DELMI Stop: 12/30/23 08:59 Last Admin: 12/02/23 08:21 Dose: 1 tab Valacyclovir HCl (Valacyclovir Hcl 500 Mg Tablet) 500 mg PO DAILY DELMI Stop: 12/30/23 08:59 Last Admin: 12/02/23 08:21 Dose: 500 mg Vitamin B Complex (Vitamin B Complex Tab) 1 tab PO QAM DELMI Stop: 12/30/23 08:59 Last Admin: 12/02/23 08:21 Dose: 1 tab (1) Altered mental status Altered mental status type: somnolence Qualified Code(s): R40.0 - Somnolence
[2023-12-02] MEDS: DICLOFENAC SOD 1% GEL 100 GM TUBE EXT SCH (12:26)
[2023-12-04 06:51] LABS: Hematocrit (blood only) 37.7 % (37.0-47.0); Hemoglobin 12.8 g/dl (12.0-16.0); Mean Corpuscular Hemoglobin 29.8 pg (25.0-34.0); Mean Corpuscular Volume 87.9 fL (80.0-100.0); Mean Platelet Volume 11.2 fL (9.4-12.4); Platelet Count 149 K/uL (130-400); RDW Coefficient of Variation 14.1 % (11.5-14.5); Red Blood Count 4.29 M/uL (4.20-5.40); White Blood Count 7.16 K/ul (4.8-10.8)
[2023-12-04 07:10] LABS: Calcium 9.1 mg/dl (8.6-10.3); Creatinine Clr Calc Pharmacy 115.6 ml/min; Est GFR (African American) 124.4 ml/min; Est GFR (Non-African American) 107.4 ml/min
[2023-12-04] MEDS: PHENYTOIN SODIUM ER 100 MG CAP PO SCH (09:24)
--- NOTE | 2023-12-04 13:46 | Hospitalist Progress Note ---
Date of Service December 04, 2023 Assessment & Plan (1) Altered mental status: Plan Ms. Onelil is a 63yoF with PMHx significant for DM2 on oral medications, hyperlipidemia, seizure disorder, paranoid schizophrenia, HSV dermatitis on chronic acyclovir suppression Rx, left tibial fracture currently on Xarelto for DVT prophylaxis, intellectual impairment who was admitted for evaluation of fall and concern for mentation. #Mechanical Fall Head CT on 11/28 and in followup on 11/29 with no acute changes Pt presenting with fall from a chair at [facility] facility Subsequent trauma resulting in laceration right brow. No LOC. on xarelto: briefly held, however, CTx2 neg--continued Patient more sluggish than usual as per staff. UA suggestive of infection, urine Cx: multiple celina #Acute UTI UA suggestive of infection, urine Cx: multiple celina On empiric Rocephin, will continue 5 day course to complete on 12/03 #Supratherapeutic Dilantin level #Seizure disorder Pt has been having Bilateral repetitive eye blinking ? Breakthrough seizures History of seizure disorder Ativan trial Follow Dilantin level (currently a send out test at [facility]) -Dilantin elevated: 39.8, 27.8, now WNL -Level normal range as of 12/02: Resuming Phenytoin 100mg BID Continue Keppra EEG : encephalopathy but no epileptiform activity Neurology consulted Re: Repetitive eye blinking. (Patient known to [facility] Neurology recommended/stated the following: -63 yo female with resolved acute mental status change in setting of UTI, recent hospitalization and med changes. Pt did also have high level of dilantin on 11/25/2023 (33.2) and waiting on repeat level. It could have contribution but at this point pt now back to baseline. It is more likely her UTI major contributing factor for her symptoms. Recommendations: -agree with hold dilantin until level returns... 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 Xarelto Dispo: medically stable for discharge Admission and Anticipated Discharge Date Admission Date: December 02, 2023 Subjective NAEO Talkative this morning, requesting a cheeseburger Physical Exam Constitutional: WD/WN, vitals as above Respiratory: normal respiratory effort, lungs clear to auscultation Cardiovascular: RRR, no murmur, no edema Results & Data Results & Data Vital Signs (Past 12 Hours) Vital Signs Temp Pulse Pulse Resp BP Pulse Ox O2 Del Method 12/04/23 11:38 36.5 C 70 18 130/77 97 Room Air 12/04/23 07:52 59 L 12/04/23 07:47 36.3 C L 69 18 99/62 L 97 Room Air 12/04/23 02:34 36.7 C 57 L 16 122/74 98 Room Air Laboratory Results Short CBC 12/04/23 Range/Units 06:03 WBC 7.16 (4.8-10.8) K/ul Hgb 12.8 (12.0-16.0) g/dl Hct 37.7 (37.0-47.0) % Plt Count 149 (130-400) K/uL BMP 12/04/23 06:03 Sodium 141 Potassium 4.0 Chloride 108 H Carbon Dioxide 26 BUN 17 Creatinine 0.46 L Glucose 118 H Calcium 9.1 Medications Administered Home Medications Medication Instructions Recorded Confirmed Last Taken atorvastatin 40 mg tablet 40 mg PO HS 07/17/18 11/30/23 10/13/23 glimepiride 2 mg tablet 4 mg PO QAM 07/17/18 11/30/23 10/14/23 multivit-iron 18 mg-folic acid 400 1 tab PO QAM 07/17/18 11/30/23 10/14/23 mcg-calcium 500 mg-minerals tablet (Women's One Daily) vitamin B complex 1 tab PO QAM 08/25/18 11/30/23 10/14/23 fluticasone propionate 50 2 sprays intranasal HS 02/15/19 11/30/23 10/13/23 mcg/actuation nasal spray,suspension ammonium lactate 12 % topical cream 1 applic topical QAM 05/21/19 11/30/23 10/14/23 triamcinolone acetonide 0.1 % 1 applic topical BID PRN Rash 07/10/21 11/30/23 10/30/21 topical cream valacyclovir 500 mg tablet 500 mg PO DAILY 02/18/22 11/30/23 10/14/23 glimepiride 1 mg tablet 1 mg PO DAILY PRN BSG >300. 10/14/22 11/30/23 Unknown polyethylene glycol 3350 17 gram 17 g PO BID 10/19/22 11/30/23 10/14/23 08:00 oral powder packet (Miralax) calcium citrate 315 mg-vitamin D3 2 tab PO QAM ##0 02/11/23 11/30/23 10/14/23 5 mcg (200 unit) tablet (Calcium Citrate + D) albuterol sulfate 90 mcg/actuation 2 puff inhalation QIDR PRN 03/03/23 11/30/23 Unknown aerosol inhaler (Ventolin HFA) shortness of breath or wheezing #6.7 grams dextromethorphan-guaifenesin 5 10 ml PO Q6H PRN cough #118 mL 03/03/23 11/30/23 Unknown mg-100 mg/5 mL oral liquid (Robitussin Cough-Chest Congestion DM) acetaminophen 500 mg tablet 1,000 mg PO Q6 PRN Pain 06/07/23 11/30/23 Unknown (Tylenol Extra Strength) dextromethorphan-guaifenesin 30 1 - 2 tab PO Q12H PRN Nasal 06/07/23 11/30/23 Unknown mg-600 mg tablet extended Congestion [id number] hr (Mucinex DM) diphenhydramine HCl 25 mg tablet 25 mg PO .Q4-6 PRN Allergy Symptoms 06/07/23 11/30/23 Unknown (Benadryl Allergy) famotidine 40 mg tablet 40 mg PO HS 06/07/23 11/30/23 10/13/23 linagliptin 5 mg tablet (Tradjenta) 5 mg PO DAILY 08/15/23 11/30/23 10/14/23 bisacodyl 10 mg rectal suppository 10 mg [place] DAILY PRN constipation 08/23/23 11/30/23 Unknown #30 ea levetiracetam 250 mg tablet 250 mg PO BID 90 days #180 tabs 08/30/23 11/30/23 10/14/23 08:00 (Keppra) phenytoin sodium extended 100 mg 200 mg (2 x 100 mg) PO BID 90 days 08/30/23 11/30/23 10/14/23 08:00 capsule (Dilantin Extended) #360 caps sennosides 8.6 mg-docusate sodium 1 tab PO BID #60 tabs 09/21/23 11/30/23 10/14/23 08:00 50 mg tablet (Senokot-S) clozapine 200 mg tablet 200 mg PO HS 10/14/23 11/30/23 10/13/23 rivaroxaban 10 mg tablet (Xarelto) 10 mg PO QAM 10/14/23 11/30/23 10/14/23 Active Medications Generic Name Dose Route Start Last Admin Trade Name Freq PRN Reason Stop Dose Admin Atorvastatin Calcium 40 mg 11/30/23 21:00 12/03/23 19:17 Atorvastatin 40 Mg Tab PO 12/30/23 20:59 40 mg HS DELMI Administration Diclofenac Sodium 4 gm 12/02/23 13:00 12/04/23 13:36 Diclofenac Sod 1% Gel 100 Gm Tube EXT 01/01/24 12:59 Not Given QID [facility] Protocol Famotidine 40 mg 11/30/23 21:00 12/03/23 19:16 Famotidine 40 Mg Tablet PO 12/30/23 20:59 40 mg HS DELMI Administration Insulin Aspart 0 units 11/29/23 22:43 12/04/23 12:58 Insulin Aspart Per Unit Charge SC 12/29/23 22:42 4 units ACHS DELMI Administration Insulin Glargine 5 units 11/30/23 21:00 12/03/23 20:51 Lantus Per Unit Charge SQ 12/30/23 20:59 5 units HS DELMI Administration Lactic Acid 1 gm 11/30/23 09:00 12/04/23 08:55 Ammonium Lactate 12% Lotion 225 Gm Btl EXT 12/30/23 08:59 Not Given QAM DELMI Levetiracetam 250 mg 11/30/23 09:00 12/04/23 08:52 Levetiracetam 250 Mg Tab PO 12/30/23 08:59 250 mg BID DELMI Administration Phenytoin Sodium 100 mg 12/04/23 09:00 12/04/23 09:24 Phenytoin Sodium Er 100 Mg Cap PO 01/03/24 08:59 100 mg BID DELMI Administration Polyethylene Glycol 17 gm 11/30/23 09:00 12/04/23 08:52 Polyethylene (Miralax) 17 Gm Pack PO 12/30/23 08:59 17 gm BID DELMI Administration Rivaroxaban 10 mg 11/30/23 17:15 12/04/23 08:52 Rivaroxaban 10 Mg Tablet PO 12/30/23 17:14 10 mg DAILY DELMI Administration Senna/Docusate Sodium 1 tab 11/30/23 09:00 12/04/23 08:51 Docusate Sodium/Senna 50/8.6mg Tab PO 12/30/23 08:59 1 tab BID DELMI Administration Valacyclovir HCl 500 mg 11/30/23 09:00 12/04/23 08:52 Valacyclovir Hcl 500 Mg Tablet PO 12/30/23 08:59 500 mg DAILY DELMI Administration Vitamin B Complex 1 tab 11/30/23 09:00 12/04/23 08:51 Vitamin B Complex Tab PO 12/30/23 08:59 1 tab QAM DELMI Administration (1) Altered mental status Altered mental status type: somnolence Qualified Code(s): R40.0 - Somnolence
[2023-12-04] MEDS: TROLAMINE SALICYLATE 10% CRM 255 APPLN/85 GM TUBE EXT SCH (21:32)
--- NOTE | 2023-12-05 11:29 | Discharge Summary ---
Discharge Summary Date of Service December 05, 2023 Principal Dx & Hospital Course #1 = Principal Diagnosis (1) Altered mental status: Plan Ms. 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 Patient was noted to have elevated Dilantin level and concern for UTI as contributing factors. Patient completed course of CTX Patient's Dilantin was held and level returned to normal therapeutic range. Patient resumed on lowered dose, 100mg bid Dilantin per neurology recommendations. On day of discharge, patient was pleasant and interactive. Denies any acute concerns. Patient at baseline slow to respond, but is engaged and interactive on exam considering known impairment. #Mechanical Fall Head CT on 11/28 and in followup on 11/29 with no acute changes Pt presenting with fall from a chair at [facility] [place] Subsequent trauma resulting in laceration right brow. No LOC. on xarelto: briefly held, however, CTx2 neg--continued Patient more sluggish than usual as per staff. UA suggestive of infection, urine Cx: multiple celina --completed course of CTX #Acute UTI *resolved UA suggestive of infection, urine Cx: multiple celina On empiric Rocephin, will continue 5 day course to complete on 12/03 #Supratherapeutic Dilantin level #Seizure disorder Pt has been having Bilateral repetitive eye blinking ? Breakthrough seizures History of seizure disorder Ativan trial Follow Dilantin level (currently a send out test at [facility]) -Dilantin elevated: 39.8, 27.8, now WNL -Level normal range as of 12/02: Resuming Phenytoin 100mg BID Continue Keppra EEG : encephalopathy but no epileptiform activity Neurology consulted Re: Repetitive eye blinking. (Patient known to [facility] Neurology recommended/stated the following: -63 yo female with resolved acute mental status change in setting of UTI, recent hospitalization and med changes. Pt did also have high level of dilantin on 11/25/2023 (33.2) and waiting on repeat level. It could have contribution but at this point pt now back to baseline. It is more likely her UTI major contributing factor for her symptoms. Recommendations: -agree with hold dilantin until level returns... 100mg po bid resumed -continue keppra -tx for UTI -avoid dehydration Continue to monitor #Thrombocytopenia *resolved acutely noted on 11/29 Continue to trend/monitor Consider further workup if persistent #hyperlipidemia on statin Rx #DM2 on oral medications well-controlled as of recent hemoglobin A1c of 5.7 last September 2023 #paranoid schizophrenia on clozapine #HSV dermatitis on chronic acyclovir suppression Rx #left tibial fracture currently on Xarelto for DVT prophylaxis Notes For Next Care Provider Medication Changes From Visit Dilantin reduced to 100mg bid from 200mg bid 2/ supertherapuetic level Admission HPI Per Admitting Provider History obtained from ED provider and records. Limited history from patient secondary to hearing impairment/confusion. Medical history significant for DM2 on oral medications, hyperlipidemia, seizure disorder, paranoid schizophrenia, HSV dermatitis on chronic acyclovir suppression Rx, left tibial fracture currently on Xarelto for DVT prophylaxis, intellectual impairment Monthly admissions at [facility] since May,. Recent confinement last month for ambulatory dysfunction Patient discharged back to [facility]. Patient had fall from a chair at [facility] today. Subsequent trauma resulting in laceration right brow. No LOC. Patient more sluggish than usual as per staff. No incontinence symptoms. Patient brought to the ER for evaluation as per family request. Incessant bilateral eye blinking noted at the ER. Medical History as above Surgical History : None Family History : DM Personal/Social history : Non-smoker, no EtOH intake, disabled Admission Exam Per Admitting Provider GENERAL: Disoriented, hard of hearing, incessant bilateral eye blinking, no respiratory distress SKIN: Normal color, warm HEENT: [place] palpebral conjunctivae, no ptosis, dry buccal mucosa NECK : Supple, no tenderness CHEST : CTA, no tenderness HEART : RRR, no obvious murmurs ABDOMEN: Some distention, nontender EXTREMITIES : LLE cast, no other conspicuous deformities noted NEUROLOGIC : Disoriented, incessant bilateral eye blinking, no facial asymmetry, hard of hearing, gait and stance not assessed Discharge Exam Constitutional WD/WN, vitals as above Respiratory normal respiratory effort, lungs clear to auscultation Cardiovascular RRR, no murmur, no edema Gastrointestinal (Abdomen) normal bowel sounds, soft, nontender, no hepatosplenomegaly Updated Medication List Medication Instructions Recorded Confirmed Type atorvastatin 40 mg tablet 40 mg PO HS 07/17/18 11/30/23 History glimepiride 2 mg tablet 4 mg PO QAM 07/17/18 11/30/23 History multivit-iron 18 mg-folic acid 400 1 tab PO QAM 07/17/18 11/30/23 History mcg-calcium 500 mg-minerals tablet (Women's One Daily) vitamin B complex 1 tab PO QAM 08/25/18 11/30/23 History fluticasone propionate 50 2 sprays intranasal HS 02/15/19 11/30/23 History mcg/actuation nasal spray,suspension ammonium lactate 12 % topical cream 1 applic topical QAM 05/21/19 11/30/23 History triamcinolone acetonide 0.1 % 1 applic topical BID PRN Rash 07/10/21 11/30/23 History topical cream valacyclovir 500 mg tablet 500 mg PO DAILY 02/18/22 11/30/23 History glimepiride 1 mg tablet 1 mg PO DAILY PRN BSG >300. 10/14/22 11/30/23 History polyethylene glycol 3350 17 gram 17 g PO BID 10/19/22 11/30/23 History oral powder packet (Miralax) calcium citrate 315 mg-vitamin D3 2 tab PO QAM ##0 02/11/23 11/30/23 History 5 mcg (200 unit) tablet (Calcium Citrate + D) albuterol sulfate 90 mcg/actuation 2 puff inhalation QIDR PRN 03/03/23 11/30/23 Rx aerosol inhaler (Ventolin HFA) shortness of breath or wheezing #6.7 grams dextromethorphan-guaifenesin 5 10 ml PO Q6H PRN cough #118 mL 03/03/23 11/30/23 Rx mg-100 mg/5 mL oral liquid (Robitussin Cough-Chest Congestion DM) acetaminophen 500 mg tablet 1,000 mg PO Q6 PRN Pain 06/07/23 11/30/23 History (Tylenol Extra Strength) dextromethorphan-guaifenesin 30 1 - 2 tab PO Q12H PRN Nasal 06/07/23 11/30/23 History mg-600 mg tablet extended Congestion [id number] hr (Mucinex DM) diphenhydramine HCl 25 mg tablet 25 mg PO .Q4-6 PRN Allergy Symptoms 06/07/23 11/30/23 History (Benadryl Allergy) famotidine 40 mg tablet 40 mg PO HS 06/07/23 11/30/23 History linagliptin 5 mg tablet (Tradjenta) 5 mg PO DAILY 08/15/23 11/30/23 History bisacodyl 10 mg rectal suppository 10 mg [place] DAILY PRN constipation 08/23/23 11/30/23 Rx #30 ea levetiracetam 250 mg tablet 250 mg PO BID 90 days #180 tabs 08/30/23 11/30/23 Rx (Keppra) sennosides 8.6 mg-docusate sodium 1 tab PO BID #60 tabs 09/21/23 11/30/23 Rx 50 mg tablet (Senokot-S) clozapine 200 mg tablet 200 mg PO HS 10/14/23 11/30/23 History rivaroxaban 10 mg tablet (Xarelto) 10 mg PO QAM 10/14/23 11/30/23 History phenytoin sodium extended 100 mg 100 mg PO BID 90 days #60 caps 12/05/23 Rx capsule (Dilantin Extended) trolamine salicylate 10 % topical 1 applic EXT Q12 #35.4 grams 12/05/23 Rx cream (Myoflex) Hospital Stay Data Consultations 11/29/23 19:36 ED Decision to Admit Stat 11/30/23 00:08 Consult Neurology Routine Diagnostic Imagining Performed 11/29/23 17:37 CT cervical spine wo con Stat CT face [CT facial bones wo con] Stat CT head/brain wo con Stat 11/30/23 05:30 CT head/brain wo con Urgent Pending Results Patient Have Any Pending Studies at Discharge: No Discharge Instructions Given to Patient (Per Discharging Provider) You were admitted for confusion and noted to have elevated dilantin levels. You were evaluated by Neurology who recommended reducing your home level to the following: Dilantin 100mg two times a day Total Time Total Time Spent Total Time Spent (In Minutes): 35
--- NOTE | 2023-12-17 22:11 | Coding Query ---
CODING QUERY To promote full compliance with coding requirements relating to patient care, provider participation is requested in all cases of sales and customer relations rep uncertainty. Please assist us with the question(s) below: Coding Question(s): Ms. 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 Patient was noted to have elevated Dilantin level and concern for UTI as contributing factors. Patient completed course of CTX Patient's Dilantin was held and level returned to normal therapeutic range. Patient resumed on lowered dose, 100mg bid Dilantin per neurology recommendations. Physician's Response(s): x_Metabolic encephalopathy secondary to UTI ___AMS/Encephalopathy secondary to medication changes xOther: (Please explain further) adverse affect of hydantoin derivative (phenytoin) [id number] Thank you Shruthi REINA
== END 2023-12-05 13:30 | DRG 689 ==
LOC: 2N 17:29 → ED 17:29 → SUATTDRO 21:18 → 2N 22:21